=== PATIENT | male | born 1950 | race African-American/Black ===

== ENCOUNTER 2017-10-24 14:51 | Inpatient (IN) | payer OTHER, MEDICARE ==
[~2017-10-24] VITALS: Ht 170.2 cm; Wt 74.8 kg
[~2017-10-24 14:51] MED LIST: ACETAMINOPHEN325 M1 ORAL; ARICEPT5 MG ORAL; BACTRIM DS TAB1 EAC1 ORAL; CIPRO500 MG PO; CIPROFLOXACIN500 M2 ORAL; CIPROFLOXACIN750 MG ORAL; DILAUDID4 MG ORAL; FLOMAX0.4 MG ORAL; LEVAQUIN250 M1 ORAL; LEVOFLOXACIN500 MG ORAL; MACROBID100 MG ORAL; METHADONE HCL10 MG ORAL; METHADONE HCL10 MG PO; METHADONE HCL5 MG PO; MICONAZOLE NITR30 GM TOPIC; MIRALAX17 G2 ORAL; RESTORIL15 MG ORAL; VANCOMYCIN750 MG/150 IV
[2017-10-24 15:46] LABS: BASOPHILS % (AUTO) 0.7 % (0.0-2.0); EOSINOPHILS % (AUTO) 0.6 % (0.0-3.0); HEMATOCRIT 49.8 % (42.0-52.0); HEMOGLOBIN 14.2 G/DL (14.2-18.0); LYMPHOCYTES % (AUTO) 49.7 % (20.0-45.0); MEAN CORPUSCULAR VOLUME 95 FL (80-99); MONOCYTES % (AUTO) 6.4 % (1.0-10.0); NEUTROPHILS % (AUTO) 42.6 % (45.0-75.0); PLATELET COUNT 204 K/UL (150-450); RED BLOOD COUNT 5.26 M/UL (4.70-6.10); RED CELL DISTRIBUTION WIDTH 12.2 % (11.6-14.8); WHITE BLOOD COUNT 11.7 K/UL (4.8-10.8)
[2017-10-24 16:05] LABS: ANION GAP 8 mmol/L (5-15); BLOOD UREA NITROGEN 15 mg/dL (7-18); CALCIUM 8.8 MG/DL (8.5-10.1); CARBON DIOXIDE 29 MMOL/L (21-32); CHLORIDE 107 MMOL/L (98-107); CREATININE 1.8 MG/DL (0.55-1.30); POTASSIUM 4.4 MMOL/L (3.5-5.1); SODIUM 143 MMOL/L (136-145)
[2017-10-24 16:09] LABS: ALANINE AMINOTRANSFERASE 20 U/L (12-78); ALBUMIN 3.6 G/DL (3.4-5.0); ALBUMIN/GLOBULIN RATIO 0.7 (1.0-2.7); ALKALINE PHOSPHATASE 128 U/L (46-116); ASPARTATE AMINO TRANSFERASE 28 U/L (15-37); BILIRUBIN,TOTAL 0.7 MG/DL (0.2-1.0)
[2017-10-24 16:26] LABS: APPEARANCE,URINE SLIGHTLY CLOUDY; BILIRUBIN, URINE NEGATIVE (NEGATIVE); GLUCOSE, URINE (UA) NEGATIVE (NEGATIVE); KETONES,URINE NEGATIVE (NEGATIVE); LEUKOCYTE ESTERASE ,URINE 3+ (NEGATIVE); NITRITE,URINE NEGATIVE (NEGATIVE); PH,URINE 6 (4.5-8.0); PROTEIN,URINE 2+ (NEGATIVE); UROBILINOGEN,URINE NORMAL MG/DL (0.0-1.0)
[2017-10-24 16:29] LABS: COLOR,URINE YELLOW
[2017-10-24] MEDS ORDERED: cefTRIAXone 1 GM in NS 55 ML IVPB ONE (17:15)
[2017-10-24] MEDS ORDERED: Lidocaine 1% MPF 10mg/ml 5ml INJ ONE (18:45)
[2017-10-24] MEDS ORDERED: UNOBMED (19:07)
[2017-10-24 21:20] VITALS: BP 109/79
[2017-10-24 21:45] VITALS: BP 114/86
[2017-10-24] MEDS ORDERED: Morphine Sulfate 2mg/ml Inj IVP PRN (22:45)
[2017-10-24] MEDS ORDERED: Albuterol/Ipratropium 3ml neb HHN PRN (22:45)
[2017-10-24] MEDS ORDERED: Vancomycin 1.5 GM/D5W 250ML IVPB SCH (23:30)
--- NOTE | 2017-10-25 00:14 | Emergency Room Report ---
History of Present Illness General Chief Complaint: Abdominal Pain Source: Patient, Medical Record Present Illness HPI Patient presents emergency department complaining of abdominal discomfort. Patient also complained of weakness. Patient has a history of dementia. Patient denies any nausea vomiting diarrhea chills. Patient family member felt the patient often refuses stay patient back. Symptoms noted to be severe. Patient does have a history UTI. Patient is not a very good historian therefore history is limited.No other modifying factors. No other associated signs and symptoms. No other complaints were noted. Allergies: Uncoded Allergies: anesthesia (Allergy, Unknown, 07/04/14) Patient History Past Medical History: HTN, CAD, CVA/TIA, dementia, other - cancer Past Surgical History: none Social History: Denies: smoking, alcohol use, drug use Reviewed Nursing Documentation: PMH: Agreed, PSxH: Agreed Nursing Documentation-PMH Past Medical History: No History, Except For Hx Cardiac Problems: Yes Hx Hypertension: Yes Hx Cancer: Yes Hx Gastrointestinal Problems: No Hx Neurological Problems: Yes Hx Cerebrovascular Accident: Yes Hx Dementia: Yes Hx Alzheimer's Disease: Yes Review of Systems All Other Systems: negative except mentioned in HPI Physical Exam Vital Signs Date Time Temp Pulse Resp B/P (MAP) Pulse Ox O2 Delivery O2 Flow Rate FiO2 10/24/17 14:58 97.3 87 20 117/86 99 Room Air Sp02 EP Interpretation: reviewed, normal General Appearance: alert, mild distress, thin, Chronically Ill Head: atraumatic Eyes: bilateral eye normal inspection ENT: normal ENT inspection, hearing grossly normal, normal voice Neck: normal inspection, full range of motion, supple, no bony tend Respiratory: normal inspection, lungs clear, normal breath sounds, no respiratory distress, no retraction, no wheezing Cardiovascular #1: regular rate, rhythm, no edema Gastrointestinal: normal inspection, normal bowel sounds, non tender, soft, no guarding, no hernia Genitourinary: no CVA tenderness Musculoskeletal: normal inspection, back normal, normal range of motion Neurologic: normal inspection, alert, responsive, speech normal Psychiatric: normal inspection, judgement/insight normal, mood/affect normal Skin: normal inspection, normal color, no rash Medical Decision Making Diagnostic Impression: Primary Impression: Abdominal pain Additional Impression: UTI (urinary tract infection) ER Course Patient presents emergency department today complaining of abdominal discomfort. Differential considerations include dehydration, urinary tract infection, gastritis, gastroenteritis just to name a few. Given the severity of the patient's presentation I felt this is a highly complex patient. This patient required extensive workup. Patient's laboratory workup shows evidence of UTI. Patient was given IV antibiotics for this. Because of patient's symptoms and advanced age and elevated leukocytosis of patient require admission to the hospital. Case was discussed with Dr. Mooney for further management. Labs Test 10/24/17 15:38 10/24/17 16:00 White Blood Count 11.7 K/UL (4.8-10.8) Red Blood Count 5.26 M/UL (4.70-6.10) Hemoglobin 14.2 G/DL (14.2-18.0) Hematocrit 49.8 % (42.0-52.0) Mean Corpuscular Volume 95 FL (80-99) Mean Corpuscular Hemoglobin 27.0 PG (27.0-31.0) Mean Corpuscular Hemoglobin Concent 28.5 G/DL (32.0-36.0) Red Cell Distribution Width 12.2 % (11.6-14.8) Platelet Count 204 K/UL (150-450) Mean Platelet Volume 6.0 FL (6.5-10.1) Neutrophils (%) (Auto) 42.6 % (45.0-75.0) Lymphocytes (%) (Auto) 49.7 % (20.0-45.0) Monocytes (%) (Auto) 6.4 % (1.0-10.0) Eosinophils (%) (Auto) 0.6 % (0.0-3.0) Basophils (%) (Auto) 0.7 % (0.0-2.0) Sodium Level 143 MMOL/L (136-145) Potassium Level 4.4 MMOL/L (3.5-5.1) Chloride Level 107 MMOL/L (98-107) Carbon Dioxide Level 29 MMOL/L (21-32) Anion Gap 8 mmol/L (5-15) Blood Urea Nitrogen 15 mg/dL (7-18) Creatinine 1.8 MG/DL (0.55-1.30) Estimat Glomerular Filtration Rate 45.7 mL/min (>60) Glucose Level 89 MG/DL (74-106) Calcium Level 8.8 MG/DL (8.5-10.1) Total Bilirubin 0.7 MG/DL (0.2-1.0) Aspartate Amino Transf (AST/SGOT) 28 U/L (15-37) Alanine Aminotransferase (ALT/SGPT) 20 U/L (12-78) Alkaline Phosphatase 128 U/L (46-116) Total Protein 9.0 G/DL (6.4-8.2) Albumin 3.6 G/DL (3.4-5.0) Globulin 5.4 g/dL Albumin/Globulin Ratio 0.7 (1.0-2.7) Lipase 250 U/L (73-393) Urine Color Yellow Urine Appearance Slightly cloudy Urine pH 6 (4.5-8.0) Urine Specific [place] 1.015 (1.005-1.035) Urine Protein 2+ (NEGATIVE) Urine Glucose (UA) Negative (NEGATIVE) Urine Ketones Negative (NEGATIVE) Urine Occult Blood 1+ (NEGATIVE) Urine Nitrite Negative (NEGATIVE) Urine Bilirubin Negative (NEGATIVE) Urine Urobilinogen Normal MG/DL (0.0-1.0) Urine Leukocyte Esterase 3+ (NEGATIVE) Urine RBC 10-15 /HPF (0 - 0) Urine WBC 20-30 /HPF (0 - 0) Urine Squamous Epithelial Cells Few /LPF (NONE/OCC) Urine Amorphous Sediment Moderate /LPF (NONE) Urine Bacteria Many /HPF (NONE) Last Vital Signs Date Time Temp Pulse Resp B/P (MAP) Pulse Ox O2 Delivery O2 Flow Rate FiO2 10/24/17 21:45 98.2 82 18 114/86 98 Room Air Status: improved Disposition: ADMITTED INPATIENT Condition: HARPAL Nam M.D. Oct 25, 2017 00:14
[2017-10-25] MEDS ORDERED: Vancomycin 1 GM in D5W 275 ML IV SCH (00:30)
[2017-10-25 04:00] VITALS: BP 125/72
[2017-10-25 07:46] LABS: BASOPHILS % (AUTO) 0.9 % (0.0-2.0); EOSINOPHILS % (AUTO) 1.3 % (0.0-3.0); HEMATOCRIT 41.9 % (42.0-52.0); HEMOGLOBIN 13.5 G/DL (14.2-18.0); LYMPHOCYTES % (AUTO) 45.2 % (20.0-45.0); MEAN CORPUSCULAR VOLUME 95 FL (80-99); NEUTROPHILS % (AUTO) 43.5 % (45.0-75.0); PLATELET COUNT 275 K/UL (150-450); RED BLOOD COUNT 4.43 M/UL (4.70-6.10); RED CELL DISTRIBUTION WIDTH 12.4 % (11.6-14.8); WHITE BLOOD COUNT 9.7 K/UL (4.8-10.8)
[2017-10-25 07:50] VITALS: BP 124/90
[2017-10-25 08:01] LABS: ALANINE AMINOTRANSFERASE 16 U/L (12-78); ALBUMIN/GLOBULIN RATIO 0.7 (1.0-2.7); ALKALINE PHOSPHATASE 102 U/L (46-116); ANION GAP 9 mmol/L (5-15); ASPARTATE AMINO TRANSFERASE 24 U/L (15-37); BILIRUBIN,TOTAL 0.5 MG/DL (0.2-1.0); BLOOD UREA NITROGEN 17 mg/dL (7-18); CALCIUM 8.1 MG/DL (8.5-10.1); CARBON DIOXIDE 26 MMOL/L (21-32); CHLORIDE 107 MMOL/L (98-107); CREATININE 1.7 MG/DL (0.55-1.30); SODIUM 142 MMOL/L (136-145)
[2017-10-25] MEDS: Heparin 5000 units/ml inj SUBQ SCH ×2 (08:32→21:00)
[2017-10-25] MEDS ORDERED: Cefepime HCl 2 GM in D5W 110 ML IV SCH (09:00)
--- NOTE | 2017-10-25 09:27 | History and Physical ---
History of Present Illness General Date patient seen: Oct 25, 2017 Time patient seen: 08:30 Reason for Hospitalization: Abdominal Pain Present Illness HPI 67 y/ol d male with PMH of HTN, CVA, CKD, Alzheimer dementia, prostate Ca, s/ p OM L foot, recurrent UTI, Methadone dependency presented with abdominal pain and generalized weakness patient was unable to provide much of information due to underlying dementia family denied f/c/diarrhea, n/v/ workup revealed stable VS leukocytosis stable LFT and lipase UA grossly positive for UTI renal parameters c/w known hx of CKD patient was admitted for further management Allergies: Uncoded Allergies: anesthesia (Allergy, Unknown, 07/04/14) Medication History Scheduled Donepezil Hcl* (Aricept*), 5 MG ORAL QHS Hydromorphone HCl (Dilaudid), 8 MG ORAL FOUR TIMES A DAY, (Reported) Hydromorphone HCl (Dilaudid), 4 MG ORAL Q4H, (Reported) Methadone Hcl* (Methadone*), Unknown Dose PO DAILY, (Reported) Methadone Hcl* (Methadone*), 115 MG ORAL DAILY Miscellaneous Medications Unable to Obtain Medications (Unable To Obtain Meds), (Reported) Patient History History Provided By: Medical Record Healthcare decision maker Yamini Roth, Resuscitation status Full Code Advanced Directive on File Past Medical/Surgical History Past Medical/Surgical History: (1) CKD (chronic kidney disease) (2) PVD (peripheral vascular disease) (3) Dementia, vascular (4) Prostatitis (5) UTI (lower urinary tract infection) (6) Osteomyelitis (7) Drug abuse (8) Prostate cancer Review of Systems ROS Narrative patient is unable to provide info due to underlying Alzheimer dementia Physical Exam General Appearance: no apparent distress, alert, confused Lines, tubes and drains: peripheral HEENT: normocephalic, atraumatic, anicteric, mucous membranes moist Neck: non-tender, supple Respiratory/Chest: chest wall non-tender, lungs clear, no respiratory distress , no accessory muscle use Cardiovascular/Chest: normal peripheral pulses, normal rate, no JVD Abdomen: non tender, soft Extremities: no calf tenderness Neurologic: alert - confused, responsive Musculoskeletal: normal muscle bulk Last 24 Hour Vital Signs Date Time Temp Pulse Resp B/P (MAP) Pulse Ox O2 Delivery O2 Flow Rate FiO2 10/25/17 07:50 97.7 99 20 124/90 99 Room Air 10/25/17 04:00 97.7 104 18 125/72 98 Room Air 10/24/17 21:45 98.2 82 18 114/86 98 Room Air 10/24/17 21:40 97.8 89 20 109/79 99 Room Air 10/24/17 21:20 97.8 89 20 109/79 99 Room Air 10/24/17 14:58 97.3 87 20 117/86 99 Room Air Intake and Output 10/24/17 10/25/17 19:00 07:00 Intake Total 490 ml Balance 490 ml Intake Oral 240 ml IV Total 250 ml # Voids 2 Laboratory Tests Test 10/24/17 15:38 10/24/17 16:00 10/25/17 04:40 White Blood Count 11.7 K/UL (4.8-10.8) H 9.7 K/UL (4.8-10.8) Red Blood Count 5.26 M/UL (4.70-6.10) 4.43 M/UL (4.70-6.10) L Hemoglobin 14.2 G/DL (14.2-18.0) 13.5 G/DL (14.2-18.0) L Hematocrit 49.8 % (42.0-52.0) 41.9 % (42.0-52.0) L Mean Corpuscular Volume 95 FL (80-99) 95 FL (80-99) Mean Corpuscular Hemoglobin 27.0 PG (27.0-31.0) 30.6 PG (27.0-31.0) Mean Corpuscular Hemoglobin Concent 28.5 G/DL (32.0-36.0) L 32.3 G/DL (32.0-36.0) Red Cell Distribution Width 12.2 % (11.6-14.8) 12.4 % (11.6-14.8) Platelet Count 204 K/UL (150-450) 275 K/UL (150-450) Mean Platelet Volume 6.0 FL (6.5-10.1) L 7.2 FL (6.5-10.1) Neutrophils (%) (Auto) 42.6 % (45.0-75.0) L 43.5 % (45.0-75.0) L Lymphocytes (%) (Auto) 49.7 % (20.0-45.0) H 45.2 % (20.0-45.0) H Monocytes (%) (Auto) 6.4 % (1.0-10.0) 9.0 % (1.0-10.0) Eosinophils (%) (Auto) 0.6 % (0.0-3.0) 1.3 % (0.0-3.0) Basophils (%) (Auto) 0.7 % (0.0-2.0) 0.9 % (0.0-2.0) Sodium Level 143 MMOL/L (136-145) 142 MMOL/L (136-145) Potassium Level 4.4 MMOL/L (3.5-5.1) 4.0 MMOL/L (3.5-5.1) Chloride Level 107 MMOL/L (98-107) 107 MMOL/L (98-107) Carbon Dioxide Level 29 MMOL/L (21-32) 26 MMOL/L (21-32) Anion Gap 8 mmol/L (5-15) 9 mmol/L (5-15) Blood Urea Nitrogen 15 mg/dL (7-18) 17 mg/dL (7-18) Creatinine 1.8 MG/DL (0.55-1.30) H 1.7 MG/DL (0.55-1.30) H Estimat Glomerular Filtration Rate 45.7 mL/min (>60) 48.8 mL/min (>60) Glucose Level 89 MG/DL (74-106) 77 MG/DL (74-106) Calcium Level 8.8 MG/DL (8.5-10.1) 8.1 MG/DL (8.5-10.1) L Total Bilirubin 0.7 MG/DL (0.2-1.0) 0.5 MG/DL (0.2-1.0) Aspartate Amino Transf (AST/SGOT) 28 U/L (15-37) 24 U/L (15-37) Alanine Aminotransferase (ALT/SGPT) 20 U/L (12-78) 16 U/L (12-78) Alkaline Phosphatase 128 U/L (46-116) H 102 U/L (46-116) Total Protein 9.0 G/DL (6.4-8.2) H 7.5 G/DL (6.4-8.2) Albumin 3.6 G/DL (3.4-5.0) 3.0 G/DL (3.4-5.0) L Globulin 5.4 g/dL 4.5 g/dL Albumin/Globulin Ratio 0.7 (1.0-2.7) L 0.7 (1.0-2.7) L Lipase 250 U/L (73-393) Urine Color Yellow Urine Appearance Slightly cloudy Urine pH 6 (4.5-8.0) Urine Specific [place] 1.015 (1.005-1.035) Urine Protein 2+ (NEGATIVE) H Urine Glucose (UA) Negative (NEGATIVE) Urine Ketones Negative (NEGATIVE) Urine Occult Blood 1+ (NEGATIVE) H Urine Nitrite Negative (NEGATIVE) Urine Bilirubin Negative (NEGATIVE) Urine Urobilinogen Normal MG/DL (0.0-1.0) Urine Leukocyte Esterase 3+ (NEGATIVE) H Urine RBC 10-15 /HPF (0 - 0) H Urine WBC 20-30 /HPF (0 - 0) H Urine Squamous Epithelial Cells Few /LPF (NONE/OCC) Urine Amorphous Sediment Moderate /LPF (NONE) H Urine Bacteria Many /HPF (NONE) H Height (Feet): 5 Height (Inches): 7.00 Weight (Pounds): 165 Medications Current Medications Medications (Trade) Dose Ordered Sig/Lucie Route PRN Reason Start Time Stop Time Status Last Admin Dose Admin Acetaminophen (Tylenol) 650 mg Q4H PRN ORAL fever 10/24/17 22:45 11/23/17 22:44 Albuterol/ Ipratropium (Albuterol/ Ipratropium) 3 ml EVERY 4 HOURS PRN HHN Shortness of Breath 10/24/17 22:45 10/29/17 22:44 Cefepime HCl 2 gm/ Dextrose 110 ml @ 220 mls/hr EVERY 12 HOURS IV 10/25/17 09:00 11/01/17 08:59 10/25/17 08:31 Donepezil HCl (Aricept) 5 mg QHS ORAL 10/25/17 21:00 11/24/17 20:59 Heparin Sodium (Porcine) (Heparin 5000 units/ml) 5,000 units EVERY 12 HOURS SUBQ 10/25/17 09:00 11/24/17 08:59 10/25/17 08:32 Methadone HCl (Methadone HCl) 115 mg DAILY ORAL 10/25/17 09:00 11/01/17 08:59 UNV Morphine Sulfate (Morphine Sulfate) 2 mg EVERY 4 HOURS PRN IVP Moderate Pain (Pain Scale 4-6) 10/24/17 22:45 10/31/17 22:44 Ondansetron HCl (Zofran) 4 mg Q6H PRN IVP Nausea & Vomiting 10/24/17 22:45 11/23/17 22:44 Phenazopyridine HCl (Pyridium) 100 mg DAILY PRN ORAL dysuria 10/24/17 22:45 11/23/17 22:44 Polyethylene Glycol (Miralax) 17 gm DAILYPRN PRN ORAL Constipation 10/24/17 22:45 11/23/17 22:44 Temazepam (Restoril) 15 mg HSPRN PRN ORAL Insomnia 10/24/17 22:45 10/31/17 22:44 Vancomycin HCl/ Dextrose 250 ml @ 125 mls/hr Q24H IVPB 10/24/17 23:30 10/29/17 23:29 10/25/17 00:07 Assessment/Plan Assessment/Plan ASSESSMENT abdominal pain gastroenteritis-resolved pyuria, possible UTI with hx of recurrent UTI prostate Ca encephalopathy HTN Hx of CVA chronic methadone dependency hep C CKD hx of IVDa PLAN OF CARE [facility] floor ID consult appreciated UA+ pyuria, but no urinary complaints, off abx , observe off antibiotics per ID recommendations repeat UA likely had gastroenteritis which is resolving tolerated diet no n/v/diarrhea DVT prophylaxis pain management bowel regimen monitor BP currently normotensive check lipid panel, add ASA PT/OT dc plan outpt hep C treatment case discussed and evaluated by supervising physician Winston Vegarita)Baylee NP Oct 25, 2017 09:27
[2017-10-25 11:55] VITALS: BP 106/86
[2017-10-25 12:24] LABS: APPEARANCE,URINE SLIGHTLY CLOUDY; BILIRUBIN, URINE NEGATIVE (NEGATIVE); COLOR,URINE AMBER; GLUCOSE, URINE (UA) NEGATIVE (NEGATIVE); KETONES,URINE NEGATIVE (NEGATIVE); LEUKOCYTE ESTERASE ,URINE 3+ (NEGATIVE); NITRITE,URINE NEGATIVE (NEGATIVE); PH,URINE 6.5 (4.5-8.0); PROTEIN,URINE 2+ (NEGATIVE); UROBILINOGEN,URINE NORMAL MG/DL (0.0-1.0)
[2017-10-25 16:07] VITALS: BP 118/85
--- NOTE | 2017-10-25 16:11 | Consultation ---
Consult Note Assessment/Plan [id number] Gastroenteritis improved Pyuria no U symptoms no evid of UTI osteomyelitis of the second middle and distal phalanges ( Lt ) Hep C Ab + Prostate cancer history of chronic renal stone, and CKD Dementia SP IVDA PLAN: DC IV vancomycin, and Cefepime Monitor BMP. Urine and Blood culture. Monitor CBC. hep C PCR EDMOND ADEN M.D. Oct 25, 2017 16:11
[2017-10-25 20:51] VITALS: BP 123/85
[2017-10-25] MEDS ORDERED: Donepezil 5mg Tab ORAL SCH (21:00)
[2017-10-25] MEDS ORDERED: Tubing IV Secondary IV ONE (22:36)
[2017-10-26 00:31] VITALS: BP 118/77
--- NOTE | 2017-10-26 01:00 | Consultation ---
DATE OF CONSULTATION: 10/25/2017 INFECTIOUS DISEASE CONSULTATION CONSULTING PHYSICIAN: Jose Bello MD. REFERRING PHYSICIAN: German Mooney MD. REASON FOR CONSULTATION: Evaluation of the patient for gastroenteritis, possible need for antibiotics, and history of possible urinary tract infection. HISTORY OF PRESENT ILLNESS: The patient is a 67-year-old male with multiple medical problems as listed below, who was admitted to this medical center with nausea, vomiting and diarrhea that has been resolved. The patient's baseline is confused and not able to provide reliable information. Infectious Disease consultation has been requested for evaluation of the patient for possible need for antibiotic treatment. PAST MEDICAL HISTORY: 1. History of recurrent urinary tract infection. 2. History of osteomyelitis of the second left toe and distal phalanx. 3. History of prostate cancer. 4. History of renal stone and CKD. 5. History of abnormal liver function tests and hepatitis C positive. 6. History of IV drug abuse. ALLERGIES: No known allergies to antibiotics. FAMILY HISTORY: Not available. REVIEW OF SYSTEMS: Unobtainable. MEDICATIONS: Cefepime and vancomycin. PHYSICAL EXAMINATION: VITAL SIGNS: Temperature 97.3, blood pressure /86, pulse 86, and respiratory rate 18. HEENT: No pale conjunctivae. No icterus. NECK: No lymphadenopathy. CHEST: Clear. HEART: S1 and S2. ABDOMEN: Soft and nontender. EXTREMITIES: No cyanosis or cellulitis noted. NEUROLOGICAL: Awake. LABORATORY DATA: White blood cell count was 11.7, today is normal; hemoglobin 13; platelets 275,000. UA shows too numerous to count white blood cells. BUN 17 and creatinine 1.7. ALT, AST, alkaline phosphatase are unremarkable. Blood culture and urine culture are pending. ASSESSMENT: The patient is a 67-year-old male with: 1. Status post leukocytosis due to acute stress. 2. Gastroenteritis, resolved. 3. Pyuria, however, the patient has no symptoms, doubt urine culture without any significance. PLAN: 1. We will monitor patient off of antibiotics. 2. Monitor CBC. 3. Monitor BMP. 4. Monitor cultures. 5. Based on the patient's clinical course and laboratories, we will do further recommendation. Thank you, Dr. Mooney, for allowing me to participate in the care of this patient. I will follow the patient with you during this hospitalization. Jose Bello M.D. DR: Nabil JOB#: [id number] CC:
[2017-10-26 04:53] VITALS: BP 107/71
[2017-10-26 07:26] LABS: BASOPHILS % (AUTO) 0.7 % (0.0-2.0); EOSINOPHILS % (AUTO) 1.4 % (0.0-3.0); HEMATOCRIT 39.2 % (42.0-52.0); HEMOGLOBIN 12.6 G/DL (14.2-18.0); LYMPHOCYTES % (AUTO) 44.1 % (20.0-45.0); MEAN CORPUSCULAR VOLUME 95 FL (80-99); MONOCYTES % (AUTO) 8.8 % (1.0-10.0); NEUTROPHILS % (AUTO) 44.9 % (45.0-75.0); PLATELET COUNT 258 K/UL (150-450); RED BLOOD COUNT 4.13 M/UL (4.70-6.10); RED CELL DISTRIBUTION WIDTH 12.2 % (11.6-14.8); WHITE BLOOD COUNT 7.2 K/UL (4.8-10.8)
[2017-10-26 07:39] LABS: ANION GAP 8 mmol/L (5-15); BLOOD UREA NITROGEN 19 mg/dL (7-18); CALCIUM 8.3 MG/DL (8.5-10.1); CARBON DIOXIDE 26 MMOL/L (21-32); CHLORIDE 108 MMOL/L (98-107); CHOLESTEROL 170 MG/DL (< 200); HDL CHOLESTEROL 71 MG/DL (40-60); POTASSIUM 4.3 MMOL/L (3.5-5.1); SODIUM 142 MMOL/L (136-145); TRIGLYCERIDES 36 MG/DL (30-150)
[2017-10-26 08:00] VITALS: BP_SYST 126; BP_SYST 157; BP_DIAS 73; BP_DIAS 93
[2017-10-26] MEDS: Aspirin Baby 81mg ORAL SCH (08:20)
[2017-10-26] MEDS: Heparin 5000 units/ml inj SUBQ SCH ×2 (08:23→22:07)
[2017-10-26 12:00] VITALS: BP 123/64
--- NOTE | 2017-10-26 15:26 | Pulmonology Progress Note ---
Assessment/Plan Assessment/Plan ASSESSMENT abdominal pain gastroenteritis-resolved pyuria, possible UTI with hx of recurrent UTI prostate Ca acute on chronic encephalopathy HTN Hx of CVA chronic methadone dependency hep C CKD hx of IVDa PLAN OF CARE [facility] floor ID follows UA+ pyuria, but no urinary complaints, off abx , observe off antibiotics per ID recommendations likely had gastroenteritis which is resolving tolerated diet no n/v/diarrhea DVT prophylaxis pain management, chronic Methadone dependency , cut down on dose and changed to 10 mg tid bowel regimen monitor BP currently normotensive check lipid panel, add ASA PT/OT psych eval , optimized psych meds dc plan outpt hep C treatment case discussed and evaluated by supervising physician Subjective Allergies: Uncoded Allergies: anesthesia (Allergy, Unknown, 07/04/14) Subjective patient agitated, argues with his , verbalizing certain things hat dont make any common sense denies chest pain, SOB, urinary complaints no abd pain, no n/v/ Objective Last 24 Hour Vital Signs Date Time Temp Pulse Resp B/P (MAP) Pulse Ox O2 Delivery O2 Flow Rate FiO2 10/26/17 12:00 97.0 78 18 123/64 97 Room Air 10/26/17 08:00 97.9 80 20 126/73 95 Room Air 10/26/17 06:40 74 20 Room Air 21 10/26/17 04:53 98.4 77 18 107/71 97 10/26/17 00:31 97.7 80 18 118/77 95 10/25/17 20:51 98.1 89 18 123/85 96 10/25/17 19:32 78 16 Room Air 21 10/25/17 16:07 97.5 92 20 118/85 98 Room Air Intake and Output 10/25/17 10/26/17 19:00 07:00 Intake Total 520 ml 240 ml Output Total 400 ml Balance 520 ml -160 ml Intake Oral 520 ml 240 ml Output Urine Total 400 ml # Voids 2 4 # Bowel Movements 1 Objective General Appearance: no apparent distress, alert, confused Lines, tubes and drains: peripheral HEENT: normocephalic, atraumatic, anicteric, mucous membranes moist Neck: non-tender, supple Respiratory/Chest: chest wall non-tender, lungs clear, no respiratory distress , no accessory muscle use Cardiovascular/Chest: normal peripheral pulses, normal rate, no JVD Abdomen: non tender, soft Extremities: no calf tenderness Neurologic: alert - confused, responsive Musculoskeletal: normal muscle bulk Microbiology Date/Time Source Procedure Growth Status 10/24/17 16:00 Urine,Clean Catch Urine Culture - Preliminary Strep Species, Gamma-Hemolytic Resulted Laboratory Tests 10/26/17 04:05: White Blood Count 7.2, Red Blood Count 4.13L, Hemoglobin 12.6L, Hematocrit 39.2L , Mean Corpuscular Volume 95, Mean Corpuscular Hemoglobin 30.6, Mean Corpuscular Hemoglobin Concent 32.2, Red Cell Distribution Width 12.2, Platelet Count 258, Mean Platelet Volume 6.2L, Neutrophils (%) (Auto) 44.9L, Lymphocytes (%) (Auto) 44.1, Monocytes (%) (Auto) 8.8, Eosinophils (%) (Auto) 1.4, Basophils (%) (Auto) 0.7, Sodium Level 142, Potassium Level 4.3, Chloride Level 108H, Carbon Dioxide Level 26, Anion Gap 8, Blood Urea Nitrogen 19H, Creatinine 2.0H, Estimat Glomerular Filtration Rate 40.5, Glucose Level 79, Calcium Level 8.3L, Triglycerides Level 36, Cholesterol Level 170, LDL Cholesterol 97, HDL Cholesterol 71H, Cholesterol/HDL Ratio 2.4L Current Medications Medications (Trade) Dose Ordered Sig/Lucie Route PRN Reason Start Time Stop Time Status Last Admin Dose Admin Acetaminophen (Tylenol) 650 mg Q4H PRN ORAL fever 10/24/17 22:45 11/23/17 22:44 Albuterol/ Ipratropium (Albuterol/ Ipratropium) 3 ml EVERY 4 HOURS PRN HHN Shortness of Breath 10/24/17 22:45 10/29/17 22:44 Aspirin (ASA) 81 mg DAILY ORAL 10/26/17 09:00 11/25/17 08:59 10/26/17 08:20 Heparin Sodium (Porcine) (Heparin 5000 units/ml) 5,000 units EVERY 12 HOURS SUBQ 10/25/17 09:00 11/24/17 08:59 10/26/17 08:23 Methadone HCl (Methadone HCl) 10 mg Q6HR ORAL 10/26/17 10:30 11/02/17 10:29 10/26/17 09:53 Mirtazapine (Remeron) 7.5 mg BEDTIME PRN ORAL For Anxiety 10/26/17 14:00 11/25/17 13:59 Morphine Sulfate (Morphine Sulfate) 2 mg EVERY 4 HOURS PRN IVP Moderate Pain (Pain Scale 4-6) 10/24/17 22:45 10/31/17 22:44 Ondansetron HCl (Zofran) 4 mg Q6H PRN IVP Nausea & Vomiting 10/24/17 22:45 11/23/17 22:44 Phenazopyridine HCl (Pyridium) 100 mg DAILY PRN ORAL dysuria 10/24/17 22:45 11/23/17 22:44 Polyethylene Glycol (Miralax) 17 gm DAILYPRN PRN ORAL Constipation 10/24/17 22:45 11/23/17 22:44 [facility] WardMon[facility]fi[facility]ack HospitalBaylee Yadav NP Oct 26, 2017 15:26
[2017-10-26 16:00] VITALS: BP 114/70
[2017-10-26 20:00] VITALS: BP 119/77
[2017-10-27 04:00] VITALS: BP 123/74
[2017-10-27 08:00] VITALS: BP 122/77
[2017-10-27] MEDS: Aspirin Baby 81mg ORAL SCH (08:51)
[2017-10-27] MEDS: Heparin 5000 units/ml inj SUBQ SCH ×2 (08:54→20:46)
--- NOTE | 2017-10-27 11:01 | Infectious Diseases Prog Note ---
Assessment/Plan Assessment/Plan . PAST MEDICAL HISTORY: ASSESSMENT: The patient is a 67-year-old male with: 1. Status post leukocytosis due to acute stress. 2. Gastroenteritis, resolved. 3. Pyuria, however, the patient has no symptoms, doubt UTI (assymptomatic bacteriuria) -u/a WBC TNTC- ucx >100k E. fecalis (S Vanco, amp), 30-40k mixed gram positive growth -. History of recurrent urinary tract infection. -. History of osteomyelitis of the second left toe and distal phalanx. -History of prostate cancer. -. History of renal stone and CKD. -. History of abnormal liver function tests and hepatitis C positive. - History of IV drug abuse. PLAN: 1. We will monitor patient off of antibiotics. 2. Monitor CBC. 3. Monitor BMP. 4. Monitor cultures. 5. Based on the patient's clinical course and laboratories, we will do further recommendation. Thank you, Dr. Mooney, for allowing me to participate in the care of this patient. I will follow the patient with you during this hospitalization. Subjective Allergies: Uncoded Allergies: anesthesia (Allergy, Unknown, 07/04/14) Subjective afebrile leukocytosis resolved Objective Vital Signs Last 24 Hour Vital Signs Date Time Temp Pulse Resp B/P (MAP) Pulse Ox O2 Delivery O2 Flow Rate FiO2 10/27/17 08:00 97.3 75 18 122/77 96 10/27/17 04:00 97.4 74 16 123/74 95 Room Air 10/26/17 20:00 97.8 89 18 119/77 95 Room Air 10/26/17 19:24 68 16 Room Air 21 10/26/17 16:00 95 Room Air 10/26/17 16:00 97.9 84 19 114/70 95 Room Air 10/26/17 15:48 97.0 10/26/17 12:00 97.0 78 18 123/64 97 Room Air 10/26/17 12:00 97 Room Air Height (Feet): 5 Height (Inches): 7.00 Weight (Pounds): 165 Objective HEENT: No pale conjunctivae. No icterus. NECK: No lymphadenopathy. CHEST: Clear. HEART: S1 and S2. ABDOMEN: Soft and nontender. EXTREMITIES: No cyanosis or cellulitis noted. NEUROLOGICAL: Awake. Microbiology Date/Time Source Procedure Growth Status 1/6/18 12:05 Indwelling Cath Urine Culture - Preliminary Streptococcus Species Resulted 10/24/17 16:00 Urine,Clean Catch Urine Culture - Final Enterococcus Faecalis Mixed Gram Positive Organism Complete Current Medications Medications (Trade) Dose Ordered Sig/Lucie Route PRN Reason Start Time Stop Time Status Last Admin Dose Admin Acetaminophen (Tylenol) 650 mg Q4H PRN ORAL fever 10/24/17 22:45 11/23/17 22:44 Albuterol/ Ipratropium (Albuterol/ Ipratropium) 3 ml EVERY 4 HOURS PRN HHN Shortness of Breath 10/24/17 22:45 10/29/17 22:44 Aspirin (ASA) 81 mg DAILY ORAL 10/26/17 09:00 11/25/17 08:59 10/27/17 08:51 Heparin Sodium (Porcine) (Heparin 5000 units/ml) 5,000 units EVERY 12 HOURS SUBQ 10/25/17 09:00 11/24/17 08:59 10/27/17 08:54 Methadone HCl (Methadone HCl) 10 mg Q6HR ORAL 10/26/17 10:30 11/02/17 10:29 10/27/17 06:15 Mirtazapine (Remeron) 7.5 mg BEDTIME PRN ORAL For Anxiety 10/26/17 14:00 11/25/17 13:59 Morphine Sulfate (Morphine Sulfate) 2 mg EVERY 4 HOURS PRN IVP Moderate Pain (Pain Scale 4-6) 10/24/17 22:45 10/31/17 22:44 10/26/17 15:18 Ondansetron HCl (Zofran) 4 mg Q6H PRN IVP Nausea & Vomiting 10/24/17 22:45 11/23/17 22:44 Phenazopyridine HCl (Pyridium) 100 mg DAILY PRN ORAL dysuria 10/24/17 22:45 11/23/17 22:44 Polyethylene Glycol (Miralax) 17 gm DAILYPRN PRN ORAL Constipation 10/24/17 22:45 11/23/17 22:44 Janet Rowland M.D. Oct 27, 2017 11:01
[2017-10-27 12:00] VITALS: BP 123/92
[2017-10-27 16:00] VITALS: BP 167/95
--- NOTE | 2017-10-27 16:31 | Pulmonology Progress Note ---
Assessment/Plan Problems: (1) Abdominal pain (2) Inguinal hernia (3) Paranoia (4) CKD (chronic kidney disease) Assessment/Plan improving all noted ID consult appreciated dc home with symptomatic treatment Subjective ROS Limited/Unobtainable: No Interval Events: no new cmplains Constitutional: Reports: no symptoms HEENT: Repors: no symptoms Respiratory: Reports: no symptoms Allergies: Uncoded Allergies: anesthesia (Allergy, Unknown, 07/04/14) Objective Last 24 Hour Vital Signs Date Time Temp Pulse Resp B/P (MAP) Pulse Ox O2 Delivery O2 Flow Rate FiO2 10/27/17 12:00 97.0 68 17 123/92 97 10/27/17 12:00 97 Room Air 10/27/17 08:00 96 Room Air 10/27/17 08:00 97.3 75 18 122/77 96 10/27/17 06:40 68 18 Room Air 21 10/27/17 04:00 97.4 74 16 123/74 95 Room Air 10/26/17 20:00 97.8 89 18 119/77 95 Room Air 10/26/17 19:24 68 16 Room Air 21 Intake and Output 10/26/17 10/27/17 19:00 07:00 Intake Total 720 ml 240 ml Balance 720 ml 240 ml Intake Oral 720 ml 240 ml # Voids 4 2 # Bowel Movements 1 General Appearance: WD/WN HEENT: normocephalic, atraumatic Respiratory/Chest: chest wall non-tender, lungs clear Cardiovascular: normal peripheral pulses, normal rate Abdomen: normal bowel sounds, no organomegaly, no scars Genitourinary: normal external genitalia Neurologic/Psychiatric: vegetable tier II-XII grossly normal Microbiology Date/Time Source Procedure Growth Status 10/25/17 12:05 Indwelling Cath Urine Culture - Preliminary Streptococcus Species Resulted Current Medications Medications (Trade) Dose Ordered Sig/Lucie Route PRN Reason Start Time Stop Time Status Last Admin Dose Admin Acetaminophen (Tylenol) 650 mg Q4H PRN ORAL fever 10/24/17 22:45 11/23/17 22:44 Albuterol/ Ipratropium (Albuterol/ Ipratropium) 3 ml EVERY 4 HOURS PRN HHN Shortness of Breath 10/24/17 22:45 10/29/17 22:44 Aspirin (ASA) 81 mg DAILY ORAL 10/26/17 09:00 11/25/17 08:59 10/27/17 08:51 Heparin Sodium (Porcine) (Heparin 5000 units/ml) 5,000 units EVERY 12 HOURS SUBQ 10/25/17 09:00 11/24/17 08:59 10/27/17 08:54 Methadone HCl (Methadone HCl) 10 mg Q6HR ORAL 10/26/17 10:30 11/02/17 10:29 10/27/17 11:43 Mirtazapine (Remeron) 7.5 mg BEDTIME PRN ORAL For Anxiety 10/26/17 14:00 11/25/17 13:59 Morphine Sulfate (Morphine Sulfate) 2 mg EVERY 4 HOURS PRN IVP Moderate Pain (Pain Scale 4-6) 10/24/17 22:45 10/31/17 22:44 10/26/17 15:18 Ondansetron HCl (Zofran) 4 mg Q6H PRN IVP Nausea & Vomiting 10/24/17 22:45 11/23/17 22:44 Phenazopyridine HCl (Pyridium) 100 mg DAILY PRN ORAL dysuria 10/24/17 22:45 11/23/17 22:44 Polyethylene Glycol (Miralax) 17 gm DAILYPRN PRN ORAL Constipation 10/24/17 22:45 11/23/17 22:44 TIARA MIRANDA Oct 27, 2017 16:31
[2017-10-27 20:00] VITALS: BP 140/87
[2017-10-28] VITALS: BP 159/91
[2017-10-28 04:00] VITALS: BP 127/85
[2017-10-28 08:00] VITALS: BP 151/96
[2017-10-28] MEDS: Aspirin Baby 81mg ORAL SCH (08:19)
[2017-10-28] MEDS: Heparin 5000 units/ml inj SUBQ SCH ×2 (08:20→20:05)
--- NOTE | 2017-10-28 11:57 | Infectious Diseases Prog Note ---
Assessment/Plan Assessment/Plan ASSESSMENT: The patient is a 67-year-old male with: 1. Status post leukocytosis due to acute stress. 2. Gastroenteritis, resolved. 3. Pyuria, however, the patient has no symptoms, doubt UTI (assymptomatic bacteriuria) -u/a WBC TNTC- ucx >100k E. fecalis (S Vanco, amp), 30-40k mixed gram positive growth -. History of recurrent urinary tract infection. -. History of osteomyelitis of the second left toe and distal phalanx. -History of prostate cancer. -. History of renal stone and CKD. -. History of abnormal liver function tests and hepatitis C positive. - History of IV drug abuse. PLAN: 1. We will monitor patient off of antibiotics. 2. Monitor CBC. 3. Monitor BMP. 4. Monitor cultures. 5. Based on the patient's clinical course and laboratories, we will do further recommendation. Thank you, Dr. Mooney, for allowing me to participate in the care of this patient. I will follow the patient with you during this hospitalization. Subjective Allergies: Uncoded Allergies: anesthesia (Allergy, Unknown, 07/04/14) Subjective afebrile no leukocytosis no UTI symptoms Cr worsening n/v resolved Objective Vital Signs Last 24 Hour Vital Signs Date Time Temp Pulse Resp B/P (MAP) Pulse Ox O2 Delivery O2 Flow Rate FiO2 10/28/17 08:00 97.0 91 20 151/96 97 10/28/17 04:00 97.2 81 20 127/85 97 10/28/17 00:00 98.0 101 18 159/91 96 10/27/17 20:00 97.6 97 20 140/87 97 10/27/17 19:00 71 18 Room Air 21 10/27/17 16:00 97 Room Air 10/27/17 16:00 97.0 79 18 167/95 97 10/27/17 12:00 97.0 68 17 123/92 97 10/27/17 12:00 97 Room Air Height (Feet): 5 Height (Inches): 7.00 Weight (Pounds): 165 Objective HEENT: No pale conjunctivae. No icterus. NECK: No lymphadenopathy. CHEST: Clear. HEART: S1 and S2. ABDOMEN: Soft and nontender. EXTREMITIES: No cyanosis or cellulitis noted. NEUROLOGICAL: Awake. Microbiology Date/Time Source Procedure Growth Status 10/25/17 12:05 Indwelling Cath Urine Culture - Final Enterococcus Faecalis Complete Current Medications Medications (Trade) Dose Ordered Sig/Lucie Route PRN Reason Start Time Stop Time Status Last Admin Dose Admin Acetaminophen (Tylenol) 650 mg Q4H PRN ORAL fever 10/24/17 22:45 11/23/17 22:44 Albuterol/ Ipratropium (Albuterol/ Ipratropium) 3 ml EVERY 4 HOURS PRN HHN Shortness of Breath 10/24/17 22:45 10/29/17 22:44 Aspirin (ASA) 81 mg DAILY ORAL 10/26/17 09:00 11/25/17 08:59 10/28/17 08:19 Heparin Sodium (Porcine) (Heparin 5000 units/ml) 5,000 units EVERY 12 HOURS SUBQ 10/25/17 09:00 11/24/17 08:59 10/28/17 08:20 Methadone HCl (Methadone HCl) 10 mg Q6HR ORAL 10/26/17 10:30 11/02/17 10:29 10/28/17 05:24 Mirtazapine (Remeron) 7.5 mg BEDTIME PRN ORAL For Anxiety 10/26/17 14:00 11/25/17 13:59 Morphine Sulfate (Morphine Sulfate) 2 mg EVERY 4 HOURS PRN IVP Moderate Pain (Pain Scale 4-6) 10/24/17 22:45 10/31/17 22:44 10/26/17 15:18 Ondansetron HCl (Zofran) 4 mg Q6H PRN IVP Nausea & Vomiting 10/24/17 22:45 11/23/17 22:44 Phenazopyridine HCl (Pyridium) 100 mg DAILY PRN ORAL dysuria 10/24/17 22:45 11/23/17 22:44 Polyethylene Glycol (Miralax) 17 gm DAILYPRN PRN ORAL Constipation 10/24/17 22:45 11/23/17 22:44 Janet Rowland M.D. Oct 28, 2017 11:57
[2017-10-28 12:00] VITALS: BP 147/94
[2017-10-28 16:00] VITALS: BP 151/82
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
--- NOTE | 2017-10-28 16:52 | Pulmonology Progress Note ---
Assessment/Plan Problems: (1) Abdominal pain (2) Inguinal hernia (3) Paranoia (4) CKD (chronic kidney disease) Assessment/Plan improving all noted ID consult appreciated dc home with symptomatic treatment social service for placement Subjective ROS Limited/Unobtainable: No Constitutional: Reports: no symptoms HEENT: Repors: no symptoms Respiratory: Reports: no symptoms Allergies: Uncoded Allergies: anesthesia (Allergy, Unknown, 07/04/14) Objective Last 24 Hour Vital Signs Date Time Temp Pulse Resp B/P (MAP) Pulse Ox O2 Delivery O2 Flow Rate FiO2 10/28/17 16:00 97.7 96 21 151/82 98 10/28/17 12:00 97.0 78 20 147/94 97 10/28/17 08:00 97.0 91 20 151/96 97 10/28/17 04:00 97.2 81 20 127/85 97 10/28/17 00:00 98.0 101 18 159/91 96 10/27/17 20:00 97.6 97 20 140/87 97 10/27/17 19:00 71 18 Room Air 21 Intake and Output 10/27/17 10/28/17 19:00 07:00 Intake Total 600 ml 240 ml Balance 600 ml 240 ml Intake Oral 600 ml 240 ml # Voids 4 2 Objective General Appearance: WD/WN HEENT: normocephalic, anicteric Respiratory/Chest: chest wall non-tender, normal breath sounds Breasts: no masses Cardiovascular: regular rhythm Genitourinary: normal external genitalia Extremities: no clubbing Skin: no rash, no lesions Current Medications Medications (Trade) Dose Ordered Sig/Lucie Route PRN Reason Start Time Stop Time Status Last Admin Dose Admin Acetaminophen (Tylenol) 650 mg Q4H PRN ORAL fever 10/24/17 22:45 11/23/17 22:44 Albuterol/ Ipratropium (Albuterol/ Ipratropium) 3 ml EVERY 4 HOURS PRN HHN Shortness of Breath 10/24/17 22:45 10/29/17 22:44 Aspirin (ASA) 81 mg DAILY ORAL 10/26/17 09:00 11/25/17 08:59 10/28/17 08:19 Heparin Sodium (Porcine) (Heparin 5000 units/ml) 5,000 units EVERY 12 HOURS SUBQ 10/25/17 09:00 11/24/17 08:59 10/28/17 08:20 Methadone HCl (Methadone HCl) 10 mg Q6HR ORAL 10/26/17 10:30 11/02/17 10:29 10/28/17 11:54 Mirtazapine (Remeron) 7.5 mg BEDTIME PRN ORAL For Anxiety 10/26/17 14:00 11/25/17 13:59 Morphine Sulfate (Morphine Sulfate) 2 mg EVERY 4 HOURS PRN IVP Moderate Pain (Pain Scale 4-6) 10/24/17 22:45 10/31/17 22:44 10/26/17 15:18 Ondansetron HCl (Zofran) 4 mg Q6H PRN IVP Nausea & Vomiting 10/24/17 22:45 11/23/17 22:44 Phenazopyridine HCl (Pyridium) 100 mg DAILY PRN ORAL dysuria 10/24/17 22:45 11/23/17 22:44 Polyethylene Glycol (Miralax) 17 gm DAILYPRN PRN ORAL Constipation 10/24/17 22:45 11/23/17 22:44 TIARA MIRANDA Oct 28, 2017 16:52
[2017-10-28 20:00] VITALS: BP 145/98
[2017-10-29] VITALS (7 sets, daily range): BP systolic 131–161; BP diastolic 85–97
[2017-10-29] MEDS: Heparin 5000 units/ml inj SUBQ SCH ×2 (08:50→20:53)
[2017-10-29] MEDS: Aspirin Baby 81mg ORAL SCH (08:50)
--- NOTE | 2017-10-29 09:43 | Progress Note ---
DATE: 10/28/2017 SUBJECTIVE: The patient is calmer and more cooperative. No behavior issues. At this time, he has consciousness, more cooperative, and calmer. MENTAL STATUS EXAMINATION: The patient is alert and oriented x1. Mood is neutral. Affect is flat. Congruent with mood. Thought process is concrete. Thought content, no suicidal or homicidal ideation. Cognition is impaired. ASSESSMENT: Encephalopathy. PLAN: 1. The patient will be continued on mirtazapine 7.5 mg at bedtime. 2. We will continue to follow and readjust the medications. Mckenna Bermudez M.D. DR: Deepa JOB#: [id number] CC:
--- NOTE | 2017-10-29 11:50 | Infectious Diseases Prog Note ---
Assessment/Plan Assessment/Plan ASSESSMENT: The patient is a 67-year-old male with: 1. Status post leukocytosis due to acute stress. 2. Gastroenteritis, resolved. 3. Pyuria, however, the patient has no symptoms, doubt UTI (assymptomatic bacteriuria) -u/a WBC TNTC- ucx >100k E. fecalis (S Vanco, amp), 30-40k mixed gram positive growth 4. HAMZAH, worsening -. History of recurrent urinary tract infection. -. History of osteomyelitis of the second left toe and distal phalanx. -History of prostate cancer. -. History of renal stone and CKD. -. History of abnormal liver function tests and hepatitis C positive. - History of IV drug abuse. PLAN: 1. We will monitor patient off of antibiotics. 2. Monitor CBC. 3. Monitor BMP. 4. aspiration precautions Thank you, Dr. Mooney, for allowing me to participate in the care of this patient. I will follow the patient with you during this hospitalization. Subjective Allergies: Uncoded Allergies: anesthesia (Allergy, Unknown, 07/04/14) Subjective afebrile no leukocytosis no UTI symptoms Cr worsening n/v resolved Objective Vital Signs Last 24 Hour Vital Signs Date Time Temp Pulse Resp B/P (MAP) Pulse Ox O2 Delivery O2 Flow Rate FiO2 10/29/17 08:00 97.8 82 19 150/85 100 10/29/17 06:40 85 20 Room Air 21 10/29/17 04:00 97.4 95 19 146/93 95 10/29/17 00:00 97.7 97 18 136/87 95 10/28/17 20:00 98.6 83 18 145/98 96 10/28/17 19:16 98 21 Room Air 21 10/28/17 16:00 97.7 96 21 151/82 98 10/28/17 12:00 97.0 78 20 147/94 97 Height (Feet): 5 Height (Inches): 7.00 Weight (Pounds): 165 Objective HEENT: No pale conjunctivae. No icterus. NECK: No lymphadenopathy. CHEST: Clear. HEART: S1 and S2. ABDOMEN: Soft and nontender. EXTREMITIES: No cyanosis or cellulitis noted. NEUROLOGICAL: Awake. Current Medications Medications (Trade) Dose Ordered Sig/Lucie Route PRN Reason Start Time Stop Time Status Last Admin Dose Admin Acetaminophen (Tylenol) 650 mg Q4H PRN ORAL fever 10/24/17 22:45 11/23/17 22:44 Albuterol/ Ipratropium (Albuterol/ Ipratropium) 3 ml EVERY 4 HOURS PRN HHN Shortness of Breath 10/24/17 22:45 10/29/17 22:44 Aspirin (ASA) 81 mg DAILY ORAL 10/26/17 09:00 11/25/17 08:59 10/29/17 08:50 Heparin Sodium (Porcine) (Heparin 5000 units/ml) 5,000 units EVERY 12 HOURS SUBQ 10/25/17 09:00 11/24/17 08:59 10/29/17 08:50 Methadone HCl (Methadone HCl) 10 mg Q6HR ORAL 10/26/17 10:30 11/02/17 10:29 10/29/17 05:42 Mirtazapine (Remeron) 7.5 mg BEDTIME PRN ORAL For Anxiety 10/26/17 14:00 11/25/17 13:59 Morphine Sulfate (Morphine Sulfate) 2 mg EVERY 4 HOURS PRN IVP Moderate Pain (Pain Scale 4-6) 10/24/17 22:45 10/31/17 22:44 10/26/17 15:18 Ondansetron HCl (Zofran) 4 mg Q6H PRN IVP Nausea & Vomiting 10/24/17 22:45 11/23/17 22:44 Phenazopyridine HCl (Pyridium) 100 mg DAILY PRN ORAL dysuria 10/24/17 22:45 11/23/17 22:44 Polyethylene Glycol (Miralax) 17 gm DAILYPRN PRN ORAL Constipation 10/24/17 22:45 11/23/17 22:44 Janet Rowland M.D. Oct 29, 2017 11:50
--- NOTE | 2017-10-29 16:06 | Pulmonology Progress Note ---
Assessment/Plan Problems: (1) Abdominal pain (2) Inguinal hernia (3) Paranoia (4) CKD (chronic kidney disease) Assessment/Plan improving, no new complains all noted ID consult appreciated dc home with symptomatic treatment social service for placement Subjective ROS Limited/Unobtainable: No Constitutional: Reports: no symptoms Respiratory: Reports: no symptoms Allergies: Uncoded Allergies: anesthesia (Allergy, Unknown, 07/04/14) Objective Last 24 Hour Vital Signs Date Time Temp Pulse Resp B/P (MAP) Pulse Ox O2 Delivery O2 Flow Rate FiO2 10/29/17 12:00 97.1 84 19 146/90 100 10/29/17 08:00 97.8 82 19 150/85 100 10/29/17 06:40 85 20 Room Air 21 10/29/17 04:00 97.4 95 19 146/93 95 10/29/17 00:00 97.7 97 18 136/87 95 10/28/17 20:00 98.6 83 18 145/98 96 10/28/17 19:16 98 21 Room Air 21 Intake and Output 10/28/17 10/29/17 19:00 07:00 Intake Total 600 ml 240 ml Balance 600 ml 240 ml Intake Oral 600 ml 240 ml # Voids 2 2 Objective General Appearance: WD/WN HEENT: normocephalic, anicteric Respiratory/Chest: chest wall non-tender, normal breath sounds Breasts: no masses Cardiovascular: regular rhythm Genitourinary: normal external genitalia Extremities: no clubbing Skin: no rash, no lesions Current Medications Medications (Trade) Dose Ordered Sig/Lucie Route PRN Reason Start Time Stop Time Status Last Admin Dose Admin Acetaminophen (Tylenol) 650 mg Q4H PRN ORAL fever 10/24/17 22:45 11/23/17 22:44 Albuterol/ Ipratropium (Albuterol/ Ipratropium) 3 ml EVERY 4 HOURS PRN HHN Shortness of Breath 10/24/17 22:45 10/29/17 22:44 Aspirin (ASA) 81 mg DAILY ORAL 10/26/17 09:00 11/25/17 08:59 10/29/17 08:50 Heparin Sodium (Porcine) (Heparin 5000 units/ml) 5,000 units EVERY 12 HOURS SUBQ 10/25/17 09:00 2/5/18 08:59 10/29/17 08:50 Methadone HCl (Methadone HCl) 10 mg Q6HR ORAL 10/26/17 10:30 11/02/17 10:29 10/29/17 12:44 Mirtazapine (Remeron) 7.5 mg BEDTIME PRN ORAL For Anxiety 10/26/17 14:00 11/25/17 13:59 Morphine Sulfate (Morphine Sulfate) 2 mg EVERY 4 HOURS PRN IVP Moderate Pain (Pain Scale 4-6) 10/24/17 22:45 10/31/17 22:44 10/26/17 15:18 Ondansetron HCl (Zofran) 4 mg Q6H PRN IVP Nausea & Vomiting 10/24/17 22:45 11/23/17 22:44 Phenazopyridine HCl (Pyridium) 100 mg DAILY PRN ORAL dysuria 10/24/17 22:45 11/23/17 22:44 Polyethylene Glycol (Miralax) 17 gm DAILYPRN PRN ORAL Constipation 10/24/17 22:45 11/23/17 22:44 TIARA MIRANDA Oct 29, 2017 16:06
[2017-10-30] VITALS: BP 167/98
[2017-10-30 02:00] VITALS: BP 110/70
[2017-10-30 04:00] VITALS: BP 131/94
[2017-10-30 08:00] VITALS: BP 134/96
[2017-10-30] MEDS: Aspirin Baby 81mg ORAL SCH (08:56)
[2017-10-30] MEDS: Heparin 5000 units/ml inj SUBQ SCH ×2 (08:57→21:31)
[2017-10-30 11:22] VITALS: BP 146/98
[2017-10-30 13:02] LABS: BASOPHILS % (AUTO) 0.4 % (0.0-2.0); EOSINOPHILS % (AUTO) 0.9 % (0.0-3.0); HEMATOCRIT 45.1 % (42.0-52.0); HEMOGLOBIN 14.2 G/DL (14.2-18.0); LYMPHOCYTES % (AUTO) 54.2 % (20.0-45.0); MEAN CORPUSCULAR VOLUME 96 FL (80-99); MONOCYTES % (AUTO) 7.9 % (1.0-10.0); NEUTROPHILS % (AUTO) 36.6 % (45.0-75.0); PLATELET COUNT 300 K/UL (150-450); RED BLOOD COUNT 4.71 M/UL (4.70-6.10); RED CELL DISTRIBUTION WIDTH 12.7 % (11.6-14.8); WHITE BLOOD COUNT 11.5 K/UL (4.8-10.8)
[2017-10-30 13:10] LABS: ANION GAP 9 mmol/L (5-15); BLOOD UREA NITROGEN 25 mg/dL (7-18); CALCIUM 9.7 MG/DL (8.5-10.1); CARBON DIOXIDE 28 MMOL/L (21-32); CHLORIDE 103 MMOL/L (98-107); CREATININE 1.7 MG/DL (0.55-1.30); POTASSIUM 4.4 MMOL/L (3.5-5.1); SODIUM 140 MMOL/L (136-145)
[2017-10-30 13:13] LABS: AMMONIA 19 umol/L (11-32)
[2017-10-30 16:00] VITALS: BP_SYST 146; BP_SYST 153; BP_DIAS 97; BP_DIAS 98
--- NOTE | 2017-10-30 16:13 | Infectious Diseases Prog Note ---
Assessment/Plan Assessment/Plan ASSESSMENT: The patient is a 67-year-old male with: 1. Status post leukocytosis due to acute stress.; now recurrent and worst confusion- will start Rx for possible UTI 2. Gastroenteritis, resolved. 3. Pyuria, however, the patient has no symptoms, doubt UTI (assymptomatic bacteriuria) -u/a WBC TNTC- ucx >100k E. fecalis (S Vanco, amp), 30-40k mixed gram positive growth 4. HAMZAH, worsening -. History of recurrent urinary tract infection. -. History of osteomyelitis of the second left toe and distal phalanx. -History of prostate cancer. -. History of renal stone and CKD. -. History of abnormal liver function tests and hepatitis C positive. - History of IV drug abuse. PLAN: 1. Start IV ampicillin #1/5 for possible UTI; when tolerating PO will switch to PO ampicillin 2. Monitor CBC.; cbc am, repeat u/a w/ reflex and obtain CXR 3. Monitor BMP. 4. aspiration precautions Thank you, Dr. Mooney, for allowing me to participate in the care of this patient. I will follow the patient with you during this hospitalization. Subjective Allergies: Uncoded Allergies: anesthesia (Allergy, Unknown, 07/04/14) Subjective afebrile mild leukocytosis today more confused today Objective Vital Signs Last 24 Hour Vital Signs Date Time Temp Pulse Resp B/P (MAP) Pulse Ox O2 Delivery O2 Flow Rate FiO2 10/30/17 11:22 97.8 94 18 146/98 96 Room Air 10/30/17 08:00 98.5 100 20 134/96 96 Room Air 10/30/17 04:00 97.8 97 21 131/94 99 10/30/17 02:00 110/70 10/30/17 00:00 98.2 84 21 167/98 96 10/29/17 20:00 98.7 84 21 161/97 96 10/29/17 19:49 107 20 Room Air 21 10/29/17 18:00 97.9 78 19 131/85 100 Height (Feet): 5 Height (Inches): 7.00 Weight (Pounds): 165 Objective HEENT: No pale conjunctivae. No icterus. NECK: No lymphadenopathy. CHEST: Clear. HEART: S1 and S2. ABDOMEN: Soft and nontender. EXTREMITIES: No cyanosis or cellulitis noted. NEUROLOGICAL: Awake. Laboratory Tests Test 10/30/17 12:45 White Blood Count 11.5 K/UL (4.8-10.8) H Red Blood Count 4.71 M/UL (4.70-6.10) Hemoglobin 14.2 G/DL (14.2-18.0) Hematocrit 45.1 % (42.0-52.0) Mean Corpuscular Volume 96 FL (80-99) Mean Corpuscular Hemoglobin 30.1 PG (27.0-31.0) Mean Corpuscular Hemoglobin Concent 31.5 G/DL (32.0-36.0) L Red Cell Distribution Width 12.7 % (11.6-14.8) Platelet Count 300 K/UL (150-450) Mean Platelet Volume 6.3 FL (6.5-10.1) L Neutrophils (%) (Auto) 36.6 % (45.0-75.0) L Lymphocytes (%) (Auto) 54.2 % (20.0-45.0) H Monocytes (%) (Auto) 7.9 % (1.0-10.0) Eosinophils (%) (Auto) 0.9 % (0.0-3.0) Basophils (%) (Auto) 0.4 % (0.0-2.0) Sodium Level 140 MMOL/L (136-145) Potassium Level 4.4 MMOL/L (3.5-5.1) Chloride Level 103 MMOL/L (98-107) Carbon Dioxide Level 28 MMOL/L (21-32) Anion Gap 9 mmol/L (5-15) Blood Urea Nitrogen 25 mg/dL (7-18) H Creatinine 1.7 MG/DL (0.55-1.30) H Estimat Glomerular Filtration Rate 48.8 mL/min (>60) Glucose Level 120 MG/DL (74-106) H Calcium Level 9.7 MG/DL (8.5-10.1) Ammonia 19 umol/L (11-32) Current Medications Medications (Trade) Dose Ordered Sig/Lucie Route PRN Reason Start Time Stop Time Status Last Admin Dose Admin Acetaminophen (Tylenol) 650 mg Q4H PRN ORAL fever 10/24/17 22:45 11/23/17 22:44 Aspirin (ASA) 81 mg DAILY ORAL 10/26/17 09:00 11/25/17 08:59 10/30/17 08:56 Heparin Sodium (Porcine) (Heparin 5000 units/ml) 5,000 units EVERY 12 HOURS SUBQ 10/25/17 09:00 11/24/17 08:59 10/30/17 08:57 Methadone HCl (Methadone HCl) 10 mg Q6HR ORAL 10/26/17 10:30 11/02/17 10:29 10/30/17 12:09 Mirtazapine (Remeron) 7.5 mg BEDTIME PRN ORAL For Anxiety 10/26/17 14:00 11/25/17 13:59 Morphine Sulfate (Morphine Sulfate) 2 mg EVERY 4 HOURS PRN IVP Moderate Pain (Pain Scale 4-6) 10/24/17 22:45 10/31/17 22:44 10/26/17 15:18 Ondansetron HCl (Zofran) 4 mg Q6H PRN IVP Nausea & Vomiting 10/24/17 22:45 11/23/17 22:44 Phenazopyridine HCl (Pyridium) 100 mg DAILY PRN ORAL dysuria 10/24/17 22:45 11/23/17 22:44 Polyethylene Glycol (Miralax) 17 gm DAILYPRN PRN ORAL Constipation 10/24/17 22:45 11/23/17 22:44 Janet Rowland M.D. Oct 30, 2017 16:13
[2017-10-30] MEDS ORDERED: Ampicillin 1 GM in NS 55 ML IVPB SCH (18:00)
--- NOTE | 2017-10-30 18:37 | Pulmonology Progress Note ---
Assessment/Plan Problems: (1) Abdominal pain (2) Inguinal hernia (3) Paranoia (4) CKD (chronic kidney disease) Assessment/Plan improving, no new complains all noted ID consult appreciated dc home with symptomatic treatment all reviewed psych to see social service for placement Subjective ROS Limited/Unobtainable: No Constitutional: Reports: no symptoms HEENT: Repors: no symptoms Respiratory: Reports: no symptoms Allergies: Uncoded Allergies: anesthesia (Allergy, Unknown, 07/04/14) Objective Last 24 Hour Vital Signs Date Time Temp Pulse Resp B/P (MAP) Pulse Ox O2 Delivery O2 Flow Rate FiO2 10/30/17 11:22 97.8 94 18 146/98 96 Room Air 10/30/17 08:00 98.5 100 20 134/96 96 Room Air 10/30/17 04:00 97.8 97 21 131/94 99 10/30/17 02:00 110/70 10/30/17 00:00 98.2 84 21 167/98 96 10/29/17 20:00 98.7 84 21 161/97 96 10/29/17 19:49 107 20 Room Air 21 Intake and Output 10/29/17 10/30/17 19:00 07:00 Intake Total 630 ml Balance 630 ml Intake Oral 630 ml # Voids 7 Objective General Appearance: WD/WN HEENT: normocephalic, anicteric Respiratory/Chest: chest wall non-tender, normal breath sounds Breasts: no masses Cardiovascular: regular rhythm Genitourinary: normal external genitalia Extremities: no clubbing Skin: no rash, no lesions Laboratory Tests 10/30/17 12:45: White Blood Count 11.5H, Red Blood Count 4.71, Hemoglobin 14.2, Hematocrit 45.1 , Mean Corpuscular Volume 96, Mean Corpuscular Hemoglobin 30.1, Mean Corpuscular Hemoglobin Concent 31.5L, Red Cell Distribution Width 12.7, Platelet Count 300, Mean Platelet Volume 6.3L, Neutrophils (%) (Auto) 36.6L, Lymphocytes (%) (Auto) 54.2H, Monocytes (%) (Auto) 7.9, Eosinophils (%) (Auto) 0.9, Basophils (%) (Auto) 0.4, Sodium Level 140, Potassium Level 4.4, Chloride Level 103, Carbon Dioxide Level 28, Anion Gap 9, Blood Urea Nitrogen 25H, Creatinine 1.7H, Estimat Glomerular Filtration Rate 48.8, Glucose Level 120H, Calcium Level 9.7, Ammonia 19 Current Medications Medications (Trade) Dose Ordered Sig/Lucie Route PRN Reason Start Time Stop Time Status Last Admin Dose Admin Acetaminophen (Tylenol) 650 mg Q4H PRN ORAL fever 10/24/17 22:45 11/23/17 22:44 Ampicillin 1 gm/ Sodium Chloride 55 ml @ 110 mls/hr EVERY 6 HOURS IVPB 10/30/17 18:00 11/06/17 17:59 Aspirin (ASA) 81 mg DAILY ORAL 10/26/17 09:00 11/25/17 08:59 10/30/17 08:56 Heparin Sodium (Porcine) (Heparin 5000 units/ml) 5,000 units EVERY 12 HOURS SUBQ 10/25/17 09:00 11/24/17 08:59 10/30/17 08:57 Methadone HCl (Methadone HCl) 10 mg Q6HR ORAL 10/26/17 10:30 11/02/17 10:29 10/30/17 18:10 Mirtazapine (Remeron) 7.5 mg BEDTIME PRN ORAL For Anxiety 10/26/17 14:00 11/25/17 13:59 Morphine Sulfate (Morphine Sulfate) 2 mg EVERY 4 HOURS PRN IVP Moderate Pain (Pain Scale 4-6) 10/24/17 22:45 10/31/17 22:44 10/26/17 15:18 Ondansetron HCl (Zofran) 4 mg Q6H PRN IVP Nausea & Vomiting 10/24/17 22:45 11/23/17 22:44 Phenazopyridine HCl (Pyridium) 100 mg DAILY PRN ORAL dysuria 10/24/17 22:45 11/23/17 22:44 Polyethylene Glycol (Miralax) 17 gm DAILYPRN PRN ORAL Constipation 10/24/17 22:45 11/23/17 22:44 TIARA MIRANDA Oct 30, 2017 18:37
[2017-10-31] VITALS (7 sets, daily range): BP systolic 108–137; BP diastolic 72–96
[2017-10-31] MEDS: Heparin 5000 units/ml inj SUBQ SCH ×2 (09:00→20:46)
[2017-10-31] MEDS: Aspirin Baby 81mg ORAL SCH (09:00)
[2017-10-31] MEDS ORDERED: Haloperidol 5mg/ml Inj IM PRN (14:30)
[2017-10-31] MEDS ORDERED: Haloperidol Decanoate 50mg Inj IM PRN (14:30)
--- NOTE | 2017-10-31 16:32 | Pulmonology Progress Note ---
Assessment/Plan Problems: (1) Abdominal pain (2) Inguinal hernia (3) Paranoia (4) CKD (chronic kidney disease) Assessment/Plan improving, no new complains all noted ID consult appreciated all reviewed psych to see social service for placement on oral abx Subjective ROS Limited/Unobtainable: No Constitutional: Reports: no symptoms HEENT: Repors: no symptoms Respiratory: Reports: no symptoms Allergies: Uncoded Allergies: anesthesia (Allergy, Unknown, 07/04/14) Objective Last 24 Hour Vital Signs Date Time Temp Pulse Resp B/P (MAP) Pulse Ox O2 Delivery O2 Flow Rate FiO2 10/31/17 15:57 98.0 94 20 132/89 95 10/31/17 12:51 98.4 91 19 120/77 96 10/31/17 12:00 98.1 88 19 133/96 97 10/31/17 08:04 98.3 90 19 137/92 96 10/31/17 04:00 97.8 85 19 108/72 96 Room Air 10/31/17 00:00 98.0 106 19 127/92 95 Room Air Intake and Output 10/30/17 10/31/17 19:00 07:00 Intake Total 500 ml Balance 500 ml Intake Oral 500 ml # Voids 6 2 Objective General Appearance: WD/WN HEENT: normocephalic, anicteric Respiratory/Chest: chest wall non-tender, normal breath sounds Breasts: no masses Cardiovascular: regular rhythm Genitourinary: normal external genitalia Extremities: no clubbing Skin: no rash, no lesions Current Medications Medications (Trade) Dose Ordered Sig/Lucie Route PRN Reason Start Time Stop Time Status Last Admin Dose Admin Acetaminophen (Tylenol) 650 mg Q4H PRN ORAL fever 10/24/17 22:45 11/23/17 22:44 Ampicillin (Ampicillin) 500 mg EVERY 6 HOURS ORAL 10/31/17 00:00 11/07/17 00:00 10/31/17 12:56 Aspirin (ASA) 81 mg DAILY ORAL 10/26/17 09:00 11/25/17 08:59 10/30/17 08:56 Chlorpromazine (Thorazine) 25 mg Q6H PRN IM Agitation 10/30/17 19:30 11/29/17 19:29 10/30/17 21:28 Haloperidol Lactate (Haldol) 5 mg Q4H PRN IM Breakthrough Agitation 10/31/17 14:30 11/30/17 14:29 Heparin Sodium (Porcine) (Heparin 5000 units/ml) 5,000 units EVERY 12 HOURS SUBQ 10/25/17 09:00 11/24/17 08:59 10/30/17 21:31 Methadone HCl (Methadone HCl) 10 mg Q6HR ORAL 10/26/17 10:30 11/02/17 10:29 10/31/17 12:57 Mirtazapine (Remeron) 7.5 mg BEDTIME PRN ORAL For Anxiety 10/26/17 14:00 11/25/17 13:59 Morphine Sulfate (Morphine Sulfate) 2 mg EVERY 4 HOURS PRN IVP Moderate Pain (Pain Scale 4-6) 10/24/17 22:45 10/31/17 22:44 10/26/17 15:18 Ondansetron HCl (Zofran) 4 mg Q6H PRN IVP Nausea & Vomiting 10/24/17 22:45 11/23/17 22:44 Phenazopyridine HCl (Pyridium) 100 mg DAILY PRN ORAL dysuria 10/24/17 22:45 11/23/17 22:44 Polyethylene Glycol (Miralax) 17 gm DAILYPRN PRN ORAL Constipation 10/24/17 22:45 11/23/17 22:44 TIARA MIRANDA Oct 31, 2017 16:32
--- NOTE | 2017-10-31 16:50 | Infectious Diseases Prog Note ---
Assessment/Plan Assessment/Plan ASSESSMENT: The patient is a 67-year-old male with: 1. Status post leukocytosis due to acute stress.; now recurrent and worse confusion- will start Rx for possible UTI 2. Gastroenteritis, resolved. 3. Pyuria/bacteriuria -u/a WBC TNTC- ucx >100k E. fecalis (S Vanco, amp), 30-40k mixed gram positive growth 4. HAMZAH, improving -. History of recurrent urinary tract infection. -. History of osteomyelitis of the second left toe and distal phalanx. -History of prostate cancer. -. History of renal stone and CKD. -. History of abnormal liver function tests and hepatitis C positive. -hEp C VL 42K - History of IV drug abuse. PLAN: 1. Continue PO ampicillin #2/5 for possible UTI 2. Monitor CBC.; cbc am, repeat u/a w/ reflex and obtain CXR 3. Monitor BMP. 4. aspiration precautions 5. Will check for Hep A and B immunity, if not, will need vaccine. Thank you, Dr. Mooney, for allowing me to participate in the care of this patient. I will follow the patient with you during this hospitalization. Subjective Allergies: Uncoded Allergies: anesthesia (Allergy, Unknown, 07/04/14) Subjective afebrile mild leukocytosis today more confused today Objective Vital Signs Last 24 Hour Vital Signs Date Time Temp Pulse Resp B/P (MAP) Pulse Ox O2 Delivery O2 Flow Rate FiO2 10/31/17 15:57 98.0 94 20 132/89 95 10/31/17 12:51 98.4 91 19 120/77 96 10/31/17 12:00 98.1 88 19 133/96 97 10/31/17 08:04 98.3 90 19 137/92 96 10/31/17 04:00 97.8 85 19 108/72 96 Room Air 10/31/17 00:00 98.0 106 19 127/92 95 Room Air Height (Feet): 5 Height (Inches): 7.00 Weight (Pounds): 165 Objective HEENT: No pale conjunctivae. No icterus. NECK: No lymphadenopathy. CHEST: Clear. HEART: S1 and S2. ABDOMEN: Soft and nontender. EXTREMITIES: No cyanosis or cellulitis noted. NEUROLOGICAL: Awake. Current Medications Medications (Trade) Dose Ordered Sig/Lucie Route PRN Reason Start Time Stop Time Status Last Admin Dose Admin Acetaminophen (Tylenol) 650 mg Q4H PRN ORAL fever 10/24/17 22:45 11/23/17 22:44 Ampicillin (Ampicillin) 500 mg EVERY 6 HOURS ORAL 10/31/17 00:00 11/07/17 00:00 10/31/17 12:56 Aspirin (ASA) 81 mg DAILY ORAL 10/26/17 09:00 11/25/17 08:59 10/30/17 08:56 Chlorpromazine (Thorazine) 25 mg Q6H PRN IM Agitation 10/30/17 19:30 11/29/17 19:29 10/30/17 21:28 Haloperidol Lactate (Haldol) 5 mg Q4H PRN IM Breakthrough Agitation 10/31/17 14:30 11/30/17 14:29 Heparin Sodium (Porcine) (Heparin 5000 units/ml) 5,000 units EVERY 12 HOURS SUBQ 10/25/17 09:00 11/24/17 08:59 10/30/17 21:31 Methadone HCl (Methadone HCl) 10 mg Q6HR ORAL 10/26/17 10:30 11/02/17 10:29 10/31/17 12:57 Mirtazapine (Remeron) 7.5 mg BEDTIME PRN ORAL For Anxiety 10/26/17 14:00 11/25/17 13:59 Morphine Sulfate (Morphine Sulfate) 2 mg EVERY 4 HOURS PRN IVP Moderate Pain (Pain Scale 4-6) 10/24/17 22:45 10/31/17 22:44 10/26/17 15:18 Ondansetron HCl (Zofran) 4 mg Q6H PRN IVP Nausea & Vomiting 10/24/17 22:45 11/23/17 22:44 Phenazopyridine HCl (Pyridium) 100 mg DAILY PRN ORAL dysuria 10/24/17 22:45 11/23/17 22:44 Polyethylene Glycol (Miralax) 17 gm DAILYPRN PRN ORAL Constipation 10/24/17 22:45 11/23/17 22:44 Janet Rowland M.D. Oct 31, 2017 16:50
--- NOTE | 2017-10-31 18:15 | Diagnostic Imaging Report ---
Indication: Cough Technique: AP view of the chest Comparison: 02/01/2016 Findings: Heart size and mediastinal contours are within normal limits. The thoracic aorta is tortuous. There is patchy left basilar opacities, possibly related to vascular crowding and/or subsegmental atelectasis. Otherwise, no focal airspace consolidation. No pleural effusion or pneumothorax. There is biapical pleural scarring. Impression: Patchy left basilar opacity possibly related to atelectasis. Additional etiologies including developing pneumonia not entirely excluded. Clinical correlation and follow-up exam recommended.
[2017-11-01 00:11] VITALS: BP 131/85
[2017-11-01] MEDS: Miralax 17gm pkt ORAL PRN (00:40)
[2017-11-01 04:01] VITALS: BP 127/86
[2017-11-01 08:00] VITALS: BP 128/84
[2017-11-01 08:08] LABS: BASOPHILS % (AUTO) 0.7 % (0.0-2.0); EOSINOPHILS % (AUTO) 1.3 % (0.0-3.0); HEMATOCRIT 42.7 % (42.0-52.0); HEMOGLOBIN 13.7 G/DL (14.2-18.0); LYMPHOCYTES % (AUTO) 41.3 % (20.0-45.0); MEAN CORPUSCULAR VOLUME 96 FL (80-99); MONOCYTES % (AUTO) 8.8 % (1.0-10.0); NEUTROPHILS % (AUTO) 47.8 % (45.0-75.0); PLATELET COUNT 253 K/UL (150-450); RED BLOOD COUNT 4.43 M/UL (4.70-6.10); RED CELL DISTRIBUTION WIDTH 12.7 % (11.6-14.8); WHITE BLOOD COUNT 9.1 K/UL (4.8-10.8)
--- NOTE | 2017-11-01 09:31 | Pulmonology Progress Note ---
Assessment/Plan Problems: (1) Abdominal pain (2) Inguinal hernia (3) Paranoia (4) CKD (chronic kidney disease) Assessment/Plan improving, no new complains all noted all reviewed psych to see social service for placement on oral abx Subjective ROS Limited/Unobtainable: No Allergies: Uncoded Allergies: anesthesia (Allergy, Unknown, 07/04/14) Objective Last 24 Hour Vital Signs Date Time Temp Pulse Resp B/P (MAP) Pulse Ox O2 Delivery O2 Flow Rate FiO2 11/01/17 08:00 98.4 94 20 128/84 96 Room Air 11/01/17 04:01 98.3 99 18 127/86 95 11/01/17 00:11 98.1 104 20 131/85 94 10/31/17 20:09 98.4 110 20 127/88 95 10/31/17 15:57 98.0 94 20 132/89 95 10/31/17 12:51 98.4 91 19 120/77 96 10/31/17 12:00 98.1 88 19 133/96 97 Intake and Output 10/31/17 11/01/17 19:00 07:00 Intake Total 440 ml 360 ml Output Total 600 ml Balance -160 ml 360 ml Intake Oral 440 ml 360 ml Output Urine Total 600 ml # Voids 2 Objective General Appearance: WD/WN HEENT: normocephalic, anicteric Respiratory/Chest: chest wall non-tender, normal breath sounds Breasts: no masses Cardiovascular: regular rhythm Genitourinary: normal external genitalia Extremities: no clubbing Skin: no rash, no lesions Laboratory Tests 11/01/17 07:45: White Blood Count 9.1, Red Blood Count 4.43L, Hemoglobin 13.7L, Hematocrit 42.7 , Mean Corpuscular Volume 96, Mean Corpuscular Hemoglobin 31.0, Mean Corpuscular Hemoglobin Concent 32.2, Red Cell Distribution Width 12.7, Platelet Count 253, Mean Platelet Volume 6.5, Neutrophils (%) (Auto) 47.8, Lymphocytes (% ) (Auto) 41.3, Monocytes (%) (Auto) 8.8, Eosinophils (%) (Auto) 1.3, Basophils ( %) (Auto) 0.7, Hepatitis A Antibody Total [Pending], Hepatitis B Surface Antigen [Pending], Hepatitis B Surface Antibody [Pending], Hepatitis B Core Total Antibody [Pending], HIV (1&2) Antibody Rapid [Pending] Current Medications Medications (Trade) Dose Ordered Sig/Lucie Route PRN Reason Start Time Stop Time Status Last Admin Dose Admin Acetaminophen (Tylenol) 650 mg Q4H PRN ORAL fever 10/24/17 22:45 11/23/17 22:44 Ampicillin (Ampicillin) 500 mg EVERY 6 HOURS ORAL 10/31/17 00:00 11/07/17 00:00 11/01/17 05:46 Aspirin (ASA) 81 mg DAILY ORAL 10/26/17 09:00 11/25/17 08:59 10/30/17 08:56 Chlorpromazine (Thorazine) 25 mg Q6H PRN IM Agitation 10/30/17 19:30 11/29/17 19:29 10/30/17 21:28 Haloperidol Lactate (Haldol) 5 mg Q4H PRN IM Breakthrough Agitation 10/31/17 14:30 11/30/17 14:29 Heparin Sodium (Porcine) (Heparin 5000 units/ml) 5,000 units EVERY 12 HOURS SUBQ 10/25/17 09:00 11/24/17 08:59 10/31/17 20:46 Methadone HCl (Methadone HCl) 10 mg Q6HR ORAL 10/26/17 10:30 11/02/17 10:29 10/31/17 18:30 Mirtazapine (Remeron) 7.5 mg BEDTIME PRN ORAL For Anxiety 10/26/17 14:00 11/25/17 13:59 Ondansetron HCl (Zofran) 4 mg Q6H PRN IVP Nausea & Vomiting 10/24/17 22:45 11/23/17 22:44 Phenazopyridine HCl (Pyridium) 100 mg DAILY PRN ORAL dysuria 10/24/17 22:45 11/23/17 22:44 Polyethylene Glycol (Miralax) 17 gm DAILYPRN PRN ORAL Constipation 10/24/17 22:45 11/23/17 22:44 11/01/17 00:40 TIARA MIRANDA Nov 01, 2017 09:30
[2017-11-01] MEDS: Aspirin Baby 81mg ORAL SCH (10:10)
[2017-11-01] MEDS: Heparin 5000 units/ml inj SUBQ SCH ×2 (10:11→20:06)
[2017-11-01 12:00] VITALS: BP 125/76
--- NOTE | 2017-11-01 13:07 | Infectious Diseases Prog Note ---
Assessment/Plan Assessment/Plan ASSESSMENT: The patient is a 67-year-old male with: Status post leukocytosis due to acute stress.; now recurrent and worse confusion - will start Rx for possible UTI Gastroenteritis, resolved. Pyuria/bacteriuria -u/a WBC TNTC- ucx >100k E. fecalis (S Vanco, amp), 30-40k mixed gram positive growth-. History of abnormal liver function tests and hepatitis C positive. -hEp C VL 42K - History of IV drug abuse. -. History of recurrent urinary tract infection. -. History of osteomyelitis of the second left toe and distal phalanx. -History of prostate cancer. -HAMZAH, improving -. History of renal stone and CKD. PLAN: 1. Continue PO ampicillin #3 /5 for possible UTI 2. Monitor CBC.; cbc am, 3. Monitor BMP. 4. aspiration precautions 5. Will check for Hep A and B immunity, if not, will need vaccine. Subjective Allergies: Uncoded Allergies: anesthesia (Allergy, Unknown, 07/04/14) Subjective afebrile Objective Vital Signs Last 24 Hour Vital Signs Date Time Temp Pulse Resp B/P (MAP) Pulse Ox O2 Delivery O2 Flow Rate FiO2 11/01/17 08:00 98.4 94 20 128/84 96 Room Air 11/01/17 04:01 98.3 99 18 127/86 95 11/01/17 00:11 98.1 104 20 131/85 94 10/31/17 20:09 98.4 110 20 127/88 95 10/31/17 15:57 98.0 94 20 132/89 95 Height (Feet): 5 Height (Inches): 7.00 Weight (Pounds): 165 Respiratory/Chest: respiratory distress Cardiovascular: no gallop/murmur Abdomen: no mass Laboratory Tests Test 11/01/17 07:45 White Blood Count 9.1 K/UL (4.8-10.8) Red Blood Count 4.43 M/UL (4.70-6.10) L Hemoglobin 13.7 G/DL (14.2-18.0) L Hematocrit 42.7 % (42.0-52.0) Mean Corpuscular Volume 96 FL (80-99) Mean Corpuscular Hemoglobin 31.0 PG (27.0-31.0) Mean Corpuscular Hemoglobin Concent 32.2 G/DL (32.0-36.0) Red Cell Distribution Width 12.7 % (11.6-14.8) Platelet Count 253 K/UL (150-450) Mean Platelet Volume 6.5 FL (6.5-10.1) Neutrophils (%) (Auto) 47.8 % (45.0-75.0) Lymphocytes (%) (Auto) 41.3 % (20.0-45.0) Monocytes (%) (Auto) 8.8 % (1.0-10.0) Eosinophils (%) (Auto) 1.3 % (0.0-3.0) Basophils (%) (Auto) 0.7 % (0.0-2.0) Hepatitis A Antibody Total Pending Hepatitis B Surface Antigen Pending Hepatitis B Surface Antibody Pending Hepatitis B Core Total Antibody Pending HIV (1&2) Antibody Rapid Negative (NEGATIVE) Current Medications Medications (Trade) Dose Ordered Sig/Lucie Route PRN Reason Start Time Stop Time Status Last Admin Dose Admin Acetaminophen (Tylenol) 650 mg Q4H PRN ORAL fever 10/24/17 22:45 11/23/17 22:44 Ampicillin (Ampicillin) 500 mg EVERY 6 HOURS ORAL 10/31/17 00:00 11/07/17 00:00 11/01/17 12:08 Aspirin (ASA) 81 mg DAILY ORAL 10/26/17 09:00 11/25/17 08:59 11/01/17 10:10 Chlorpromazine (Thorazine) 25 mg Q6H PRN IM Agitation 10/30/17 19:30 11/29/17 19:29 10/30/17 21:28 Haloperidol Lactate (Haldol) 5 mg Q4H PRN IM Breakthrough Agitation 10/31/17 14:30 11/30/17 14:29 Heparin Sodium (Porcine) (Heparin 5000 units/ml) 5,000 units EVERY 12 HOURS SUBQ 10/25/17 09:00 11/24/17 08:59 11/01/17 10:11 Methadone HCl (Methadone HCl) 10 mg Q6HR ORAL 10/26/17 10:30 11/02/17 10:29 11/01/17 12:07 Mirtazapine (Remeron) 7.5 mg BEDTIME PRN ORAL For Anxiety 10/26/17 14:00 11/25/17 13:59 Ondansetron HCl (Zofran) 4 mg Q6H PRN IVP Nausea & Vomiting 10/24/17 22:45 11/23/17 22:44 Phenazopyridine HCl (Pyridium) 100 mg DAILY PRN ORAL dysuria 10/24/17 22:45 11/23/17 22:44 Polyethylene Glycol (Miralax) 17 gm DAILYPRN PRN ORAL Constipation 10/24/17 22:45 11/23/17 22:44 11/01/17 00:40 EDMOND ADEN M.D. Nov 01, 2017 13:07
[2017-11-01 16:00] VITALS: BP 124/88
--- NOTE | 2017-11-01 18:57 | General Progress Note ---
Assessment/Plan Assessment/Plan encephalopathy agitation -cont current meds Subjective Date patient seen: Oct 30, 2017 Neurologic/Psychiatric: Reports: anxiety, depressed Allergies: Uncoded Allergies: anesthesia (Allergy, Unknown, 07/04/14) Subjective agitation 1:1 confused Objective Last 24 Hour Vital Signs Date Time Temp Pulse Resp B/P (MAP) Pulse Ox O2 Delivery O2 Flow Rate FiO2 11/01/17 16:00 97.9 92 18 124/88 96 Room Air 11/01/17 12:00 98.2 92 20 125/76 94 Room Air 11/01/17 08:00 98.4 94 20 128/84 96 Room Air 11/01/17 04:01 98.3 99 18 127/86 95 11/01/17 00:11 98.1 104 20 131/85 94 10/31/17 20:09 98.4 110 20 127/88 95 Intake and Output 10/31/17 11/01/17 19:00 07:00 Intake Total 440 ml 360 ml Output Total 600 ml Balance -160 ml 360 ml Intake Oral 440 ml 360 ml Output Urine Total 600 ml # Voids 2 Laboratory Tests 11/01/17 07:45: White Blood Count 9.1, Red Blood Count 4.43L, Hemoglobin 13.7L, Hematocrit 42.7 , Mean Corpuscular Volume 96, Mean Corpuscular Hemoglobin 31.0, Mean Corpuscular Hemoglobin Concent 32.2, Red Cell Distribution Width 12.7, Platelet Count 253, Mean Platelet Volume 6.5, Neutrophils (%) (Auto) 47.8, Lymphocytes (% ) (Auto) 41.3, Monocytes (%) (Auto) 8.8, Eosinophils (%) (Auto) 1.3, Basophils ( %) (Auto) 0.7, Hepatitis A Antibody Total [Pending], Hepatitis B Surface Antigen [Pending], Hepatitis B Surface Antibody [Pending], Hepatitis B Core Total Antibody [Pending], HIV (1&2) Antibody Rapid Negative Height (Feet): 5 Height (Inches): 7.00 Weight (Pounds): 165 General Appearance: no apparent distress, alert, confused, agitated Neurologic: alert, responsive, disoriented Mckenna Bermudez M.D. Nov 01, 2017 18:57
--- NOTE | 2017-11-01 18:58 | Geriatric Progress Note ---
Assessment/Plan Discussed with: patient, hospital staff Subjective Interval Events 10/31/17 Mood/Memory: Reports: anxiety, depressed feelings, emotional problems Psychiatric: Reports: hallucinations Geriatric Geriatric Last 24 Hour Vital Signs Date Time Temp Pulse Resp B/P (MAP) Pulse Ox O2 Delivery O2 Flow Rate FiO2 11/01/17 16:00 97.9 92 18 124/88 96 Room Air 11/01/17 12:00 98.2 92 20 125/76 94 Room Air 11/01/17 08:00 98.4 94 20 128/84 96 Room Air 11/01/17 04:01 98.3 99 18 127/86 95 11/01/17 00:11 98.1 104 20 131/85 94 10/31/17 20:09 98.4 110 20 127/88 95 Intake and Output 10/31/17 11/01/17 19:00 07:00 Intake Total 440 ml 360 ml Output Total 600 ml Balance -160 ml 360 ml Intake Oral 440 ml 360 ml Output Urine Total 600 ml # Voids 2 Laboratory Tests Test 11/01/17 07:45 White Blood Count 9.1 K/UL (4.8-10.8) Red Blood Count 4.43 M/UL (4.70-6.10) L Hemoglobin 13.7 G/DL (14.2-18.0) L Hematocrit 42.7 % (42.0-52.0) Mean Corpuscular Volume 96 FL (80-99) Mean Corpuscular Hemoglobin 31.0 PG (27.0-31.0) Mean Corpuscular Hemoglobin Concent 32.2 G/DL (32.0-36.0) Red Cell Distribution Width 12.7 % (11.6-14.8) Platelet Count 253 K/UL (150-450) Mean Platelet Volume 6.5 FL (6.5-10.1) Neutrophils (%) (Auto) 47.8 % (45.0-75.0) Lymphocytes (%) (Auto) 41.3 % (20.0-45.0) Monocytes (%) (Auto) 8.8 % (1.0-10.0) Eosinophils (%) (Auto) 1.3 % (0.0-3.0) Basophils (%) (Auto) 0.7 % (0.0-2.0) Hepatitis A Antibody Total Pending Hepatitis B Surface Antigen Pending Hepatitis B Surface Antibody Pending Hepatitis B Core Total Antibody Pending HIV (1&2) Antibody Rapid Negative (NEGATIVE) Current Medications Medications (Trade) Dose Ordered Sig/Lucie Route PRN Reason Start Time Stop Time Status Last Admin Dose Admin Acetaminophen (Tylenol) 650 mg Q4H PRN ORAL fever 10/24/17 22:45 11/23/17 22:44 Ampicillin (Ampicillin) 500 mg EVERY 6 HOURS ORAL 10/31/17 00:00 11/07/17 00:00 11/01/17 17:54 Aspirin (ASA) 81 mg DAILY ORAL 10/26/17 09:00 11/25/17 08:59 11/01/17 10:10 Chlorpromazine (Thorazine) 25 mg Q6H PRN IM Agitation 10/30/17 19:30 11/29/17 19:29 10/30/17 21:28 Haloperidol Lactate (Haldol) 5 mg Q4H PRN IM Breakthrough Agitation 10/31/17 14:30 11/30/17 14:29 Heparin Sodium (Porcine) (Heparin 5000 units/ml) 5,000 units EVERY 12 HOURS SUBQ 10/25/17 09:00 11/24/17 08:59 11/01/17 10:11 Methadone HCl (Methadone HCl) 10 mg Q6HR ORAL 10/26/17 10:30 11/02/17 10:29 11/01/17 17:56 Mirtazapine (Remeron) 7.5 mg BEDTIME PRN ORAL For Anxiety 10/26/17 14:00 11/25/17 13:59 Ondansetron HCl (Zofran) 4 mg Q6H PRN IVP Nausea & Vomiting 10/24/17 22:45 11/23/17 22:44 Phenazopyridine HCl (Pyridium) 100 mg DAILY PRN ORAL dysuria 10/24/17 22:45 11/23/17 22:44 Polyethylene Glycol (Miralax) 17 gm DAILYPRN PRN ORAL Constipation 10/24/17 22:45 11/23/17 22:44 11/01/17 00:40 Height (Feet): 5 Height (Inches): 7.00 Weight (Pounds): 165 General Appearance: no apparent distress, alert, good eye contact, poorly groomed Neurologic: alert Psychiatric Orientation: disoriented Affect: blunt Insight: poor Thought Content: auditory hallucinations Mckenna Bermudez M.D. Nov 01, 2017 18:58
[2017-11-01 20:00] VITALS: BP 143/97
[2017-11-02 04:00] VITALS: BP 132/82
[2017-11-02 09:26] VITALS: BP 142/83
[2017-11-02] MEDS: Aspirin Baby 81mg ORAL SCH (09:39)
[2017-11-02] MEDS: Heparin 5000 units/ml inj SUBQ SCH ×2 (09:40→20:03)
[2017-11-02 11:48] VITALS: BP 134/78
--- NOTE | 2017-11-02 13:39 | Pulmonology Progress Note ---
Assessment/Plan Problems: (1) Abdominal pain (2) Inguinal hernia (3) Paranoia (4) CKD (chronic kidney disease) Assessment/Plan improving, no new complains all noted all reviewed psych to see social service for placement on oral abx Subjective ROS Limited/Unobtainable: No Allergies: Uncoded Allergies: anesthesia (Allergy, Unknown, 07/04/14) Objective Last 24 Hour Vital Signs Date Time Temp Pulse Resp B/P (MAP) Pulse Ox O2 Delivery O2 Flow Rate FiO2 11/02/17 11:48 98.8 79 20 134/78 95 Room Air 11/02/17 09:26 98.1 95 20 142/83 98 Room Air 11/02/17 04:00 97.4 79 16 132/82 97 Room Air 11/01/17 20:00 98.3 118 18 143/97 98 Room Air 11/01/17 16:00 97.9 92 18 124/88 96 Room Air Intake and Output 11/01/17 11/02/17 19:00 07:00 Intake Total 720 ml 240 ml Output Total 200 ml Balance 720 ml 40 ml Intake Oral 720 ml 240 ml Output Urine Total 200 ml # Voids 3 Objective General Appearance: WD/WN HEENT: normocephalic, anicteric Respiratory/Chest: chest wall non-tender, normal breath sounds Breasts: no masses Cardiovascular: regular rhythm Genitourinary: normal external genitalia Extremities: no clubbing Skin: no rash, no lesions Current Medications Medications (Trade) Dose Ordered Sig/Lucie Route PRN Reason Start Time Stop Time Status Last Admin Dose Admin Acetaminophen (Tylenol) 650 mg Q4H PRN ORAL fever 10/24/17 22:45 11/23/17 22:44 Ampicillin (Ampicillin) 500 mg EVERY 6 HOURS ORAL 10/31/17 00:00 11/07/17 00:00 11/02/17 12:08 Aspirin (ASA) 81 mg DAILY ORAL 10/26/17 09:00 11/25/17 08:59 11/02/17 09:39 Chlorpromazine (Thorazine) 25 mg Q6H PRN IM Agitation 10/30/17 19:30 11/29/17 19:29 11/01/17 19:57 Haloperidol Lactate (Haldol) 5 mg Q4H PRN IM Breakthrough Agitation 10/31/17 14:30 11/30/17 14:29 Heparin Sodium (Porcine) (Heparin 5000 units/ml) 5,000 units EVERY 12 HOURS SUBQ 10/25/17 09:00 11/24/17 08:59 11/02/17 09:40 Mirtazapine (Remeron) 7.5 mg BEDTIME PRN ORAL For Anxiety 10/26/17 14:00 11/25/17 13:59 Ondansetron HCl (Zofran) 4 mg Q6H PRN IVP Nausea & Vomiting 10/24/17 22:45 11/23/17 22:44 Phenazopyridine HCl (Pyridium) 100 mg DAILY PRN ORAL dysuria 10/24/17 22:45 11/23/17 22:44 Polyethylene Glycol (Miralax) 17 gm DAILYPRN PRN ORAL Constipation 10/24/17 22:45 11/23/17 22:44 11/01/17 00:40 TIARA MIRANDA Nov 02, 2017 13:38
[2017-11-02 16:27] VITALS: BP 131/84
[2017-11-02 20:10] VITALS: BP 146/98
[2017-11-03 04:00] VITALS: BP 138/88
[2017-11-03] MEDS: Miralax 17gm pkt ORAL PRN (05:24)
[2017-11-03 08:00] VITALS: BP 138/87
[2017-11-03] MEDS: Heparin 5000 units/ml inj SUBQ SCH ×2 (09:00→21:00)
[2017-11-03] MEDS: Aspirin Baby 81mg ORAL SCH (10:08)
--- NOTE | 2017-11-03 10:39 | Infectious Diseases Prog Note ---
Assessment/Plan Assessment/Plan ASSESSMENT: The patient is a 67-year-old male with: Status post leukocytosis due to acute stress.; Gastroenteritis, resolved. Pyuria/bacteriuria -u/a WBC TNTC- ucx >100k E. fecalis (S Vanco, amp), 30-40k mixed gram positive growth-. History of abnormal liver function tests and hepatitis C positive. -hEp C VL 42K - History of IV drug abuse. Hep C +ve ( PCR and AB ) Hep A Imm Hep B Ab neg -. History of recurrent urinary tract infection. -. History of osteomyelitis of the second left toe and distal phalanx. -History of prostate cancer. -HAMZAH, improving -. History of renal stone and CKD. PLAN: Continue PO ampicillin # for possible UTI Monitor CBC.; cbc am, Monitor BMP. aspiration precautions Hep B vaccine as out pt , pharm does not provide it for pt (as per pharmD ), pt was advised to seek immunization as out pt Subjective Constitutional: Denies: no symptoms, fever, chills, fatigue, anorexia, drenching sweats, other Allergies: Uncoded Allergies: anesthesia (Allergy, Unknown, 07/04/14) Subjective afebrile Objective Vital Signs Last 24 Hour Vital Signs Date Time Temp Pulse Resp B/P (MAP) Pulse Ox O2 Delivery O2 Flow Rate FiO2 11/03/17 04:00 97.7 83 18 138/88 94 Room Air 11/02/17 20:10 98.9 113 18 146/98 100 Room Air 11/02/17 16:27 99.0 103 20 131/84 93 Room Air 11/02/17 11:48 98.8 79 20 134/78 95 Room Air Height (Feet): 5 Height (Inches): 7.00 Weight (Pounds): 165 HEENT: anicteric Respiratory/Chest: normal breath sounds Cardiovascular: regular rhythm Abdomen: no mass Current Medications Medications (Trade) Dose Ordered Sig/Lucie Route PRN Reason Start Time Stop Time Status Last Admin Dose Admin Acetaminophen (Tylenol) 650 mg Q4H PRN ORAL fever 10/24/17 22:45 11/23/17 22:44 Ampicillin (Ampicillin) 500 mg EVERY 6 HOURS ORAL 10/31/17 00:00 11/07/17 00:00 11/03/17 05:24 Aspirin (ASA) 81 mg DAILY ORAL 10/26/17 09:00 11/25/17 08:59 11/03/17 10:08 Chlorpromazine (Thorazine) 25 mg Q6H PRN IM Agitation 10/30/17 19:30 11/29/17 19:29 11/03/17 10:08 Haloperidol Lactate (Haldol) 5 mg Q4H PRN IM Breakthrough Agitation 10/31/17 14:30 11/30/17 14:29 Heparin Sodium (Porcine) (Heparin 5000 units/ml) 5,000 units EVERY 12 HOURS SUBQ 10/25/17 09:00 11/24/17 08:59 11/02/17 20:03 Mirtazapine (Remeron) 7.5 mg BEDTIME PRN ORAL For Anxiety 10/26/17 14:00 11/25/17 13:59 Ondansetron HCl (Zofran) 4 mg Q6H PRN IVP Nausea & Vomiting 10/24/17 22:45 11/23/17 22:44 Phenazopyridine HCl (Pyridium) 100 mg DAILY PRN ORAL dysuria 10/24/17 22:45 11/23/17 22:44 Polyethylene Glycol (Miralax) 17 gm DAILYPRN PRN ORAL Constipation 10/24/17 22:45 11/23/17 22:44 11/03/17 05:24 EDMOND ADEN M.D. Nov 03, 2017 10:39
[2017-11-03 12:00] VITALS: BP 134/79
--- NOTE | 2017-11-03 13:14 | Pulmonology Progress Note ---
Assessment/Plan Problems: (1) Abdominal pain (2) Inguinal hernia (3) Paranoia (4) CKD (chronic kidney disease) Assessment/Plan improving, no new complains all noted all reviewed psych to see social service for placement on oral abx Subjective ROS Limited/Unobtainable: No Constitutional: Reports: no symptoms HEENT: Repors: no symptoms Allergies: Uncoded Allergies: anesthesia (Allergy, Unknown, 07/04/14) Objective Last 24 Hour Vital Signs Date Time Temp Pulse Resp B/P (MAP) Pulse Ox O2 Delivery O2 Flow Rate FiO2 11/03/17 12:00 97.0 94 18 134/79 97 11/03/17 08:00 98.4 103 19 138/87 96 11/03/17 04:00 97.7 83 18 138/88 94 Room Air 11/02/17 20:10 98.9 113 18 146/98 100 Room Air 11/02/17 16:27 99.0 103 20 131/84 93 Room Air Intake and Output 11/02/17 11/03/17 19:00 07:00 Intake Total 780 ml 240 ml Output Total 200 ml Balance 780 ml 40 ml Intake Oral 780 ml 240 ml Output Urine Total 200 ml # Voids 3 Objective General Appearance: WD/WN HEENT: normocephalic, anicteric Respiratory/Chest: chest wall non-tender, normal breath sounds Breasts: no masses Cardiovascular: regular rhythm Genitourinary: normal external genitalia Extremities: no clubbing Skin: no rash, no lesions Current Medications Medications (Trade) Dose Ordered Sig/Lucie Route PRN Reason Start Time Stop Time Status Last Admin Dose Admin Acetaminophen (Tylenol) 650 mg Q4H PRN ORAL fever 10/24/17 22:45 11/23/17 22:44 Ampicillin (Ampicillin) 500 mg EVERY 6 HOURS ORAL 10/31/17 00:00 11/07/17 00:00 11/03/17 05:24 Aspirin (ASA) 81 mg DAILY ORAL 10/26/17 09:00 11/25/17 08:59 11/03/17 10:08 Chlorpromazine (Thorazine) 25 mg Q6H PRN IM Agitation 10/30/17 19:30 11/29/17 19:29 11/03/17 10:08 Haloperidol Lactate (Haldol) 5 mg Q4H PRN IM Breakthrough Agitation 10/31/17 14:30 11/30/17 14:29 Heparin Sodium (Porcine) (Heparin 5000 units/ml) 5,000 units EVERY 12 HOURS SUBQ 10/25/17 09:00 11/24/17 08:59 11/02/17 20:03 Mirtazapine (Remeron) 7.5 mg BEDTIME PRN ORAL For Anxiety 10/26/17 14:00 11/25/17 13:59 Ondansetron HCl (Zofran) 4 mg Q6H PRN IVP Nausea & Vomiting 10/24/17 22:45 11/23/17 22:44 Phenazopyridine HCl (Pyridium) 100 mg DAILY PRN ORAL dysuria 10/24/17 22:45 11/23/17 22:44 Polyethylene Glycol (Miralax) 17 gm DAILYPRN PRN ORAL Constipation 10/24/17 22:45 11/23/17 22:44 11/03/17 05:24 TIARA MIRANDA Nov 03, 2017 13:14
[2017-11-03 16:00] VITALS: BP 113/61
[2017-11-03 20:00] VITALS: BP 140/90
--- NOTE | 2017-11-03 23:46 | General Progress Note ---
Assessment/Plan Status: stable Assessment/Plan encephalopathy agitation -cont current meds Subjective Date patient seen: Nov 03, 2017 Neurologic/Psychiatric: Reports: anxiety, depressed, emotional problems Allergies: Uncoded Allergies: anesthesia (Allergy, Unknown, 07/04/14) Subjective agitation confused Objective Last 24 Hour Vital Signs Date Time Temp Pulse Resp B/P (MAP) Pulse Ox O2 Delivery O2 Flow Rate FiO2 11/03/17 20:00 98.3 86 20 140/90 95 11/03/17 16:25 98 Room Air 11/03/17 16:00 97.2 71 17 113/61 97 11/03/17 12:00 97.0 94 18 134/79 97 11/03/17 08:00 98.4 103 19 138/87 96 11/03/17 04:00 97.7 83 18 138/88 94 Room Air Intake and Output 11/02/17 11/03/17 19:00 07:00 Intake Total 780 ml 240 ml Output Total 200 ml Balance 780 ml 40 ml Intake Oral 780 ml 240 ml Output Urine Total 200 ml # Voids 3 Height (Feet): 5 Height (Inches): 7.00 Weight (Pounds): 165 General Appearance: no apparent distress, alert, confused, agitated Mckenna Bermudez M.D. Nov 03, 2017 23:46
[2017-11-04] VITALS: BP 134/86
[2017-11-04 04:00] VITALS: BP 131/84
[2017-11-04] MEDS: Miralax 17gm pkt ORAL PRN (06:30)
[2017-11-04 08:00] VITALS: BP 131/90
[2017-11-04] MEDS: Aspirin Baby 81mg ORAL SCH (08:33)
[2017-11-04] MEDS: Heparin 5000 units/ml inj SUBQ SCH ×2 (08:36→21:25)
--- NOTE | 2017-11-04 11:35 | Infectious Diseases Prog Note ---
Assessment/Plan Assessment/Plan ASSESSMENT: The patient is a 67-year-old male with: Status post leukocytosis due to acute stress.; Gastroenteritis, resolved. Pyuria/bacteriuria -u/a WBC TNTC- ucx >100k E. fecalis (S Vanco, amp), 30-40k mixed gram positive growth-. History of abnormal liver function tests and hepatitis C positive. -hEp C VL 42K - History of IV drug abuse. Hep C +ve ( PCR and AB ) Hep A Imm Hep B Ab neg -. History of recurrent urinary tract infection. -. History of osteomyelitis of the second left toe and distal phalanx. -History of prostate cancer. -HAMZAH, improving -. History of renal stone and CKD. PLAN: Continue PO ampicillin # for possible UTI Monitor CBC.; cbc am, Monitor BMP. aspiration precautions Hep B vaccine as out pt , pharm does not provide it for pt (as per pharmD ), pt was advised to seek immunization as out pt Subjective Constitutional: Denies: no symptoms, fever, chills, fatigue, anorexia, drenching sweats, other Allergies: Uncoded Allergies: anesthesia (Allergy, Unknown, 07/04/14) Subjective afebrile Objective Vital Signs Last 24 Hour Vital Signs Date Time Temp Pulse Resp B/P (MAP) Pulse Ox O2 Delivery O2 Flow Rate FiO2 11/04/17 08:00 97.2 95 19 131/90 95 Room Air 11/04/17 04:20 Room Air 11/04/17 04:00 97.9 78 20 131/84 96 11/04/17 00:10 Room Air 11/04/17 00:00 98.0 103 20 134/86 96 11/03/17 21:45 Room Air 11/03/17 20:00 98.3 86 20 140/90 95 11/03/17 16:25 98 Room Air 11/03/17 16:00 97.2 71 17 113/61 97 11/03/17 12:00 97.0 94 18 134/79 97 Height (Feet): 5 Height (Inches): 7.00 Weight (Pounds): 165 HEENT: mucous membranes moist Respiratory/Chest: no accessory muscle use Cardiovascular: regular rhythm Abdomen: soft, non tender Current Medications Medications (Trade) Dose Ordered Sig/Lucie Route PRN Reason Start Time Stop Time Status Last Admin Dose Admin Acetaminophen (Tylenol) 650 mg Q4H PRN ORAL fever 10/24/17 22:45 11/23/17 22:44 Ampicillin (Ampicillin) 500 mg EVERY 6 HOURS ORAL 10/31/17 00:00 11/07/17 00:00 11/04/17 11:25 Aspirin (ASA) 81 mg DAILY ORAL 10/26/17 09:00 11/25/17 08:59 11/04/17 08:33 Chlorpromazine (Thorazine) 25 mg Q6H PRN IM Agitation 10/30/17 19:30 11/29/17 19:29 11/03/17 10:08 Haloperidol Lactate (Haldol) 5 mg Q4H PRN IM Breakthrough Agitation 10/31/17 14:30 11/30/17 14:29 Heparin Sodium (Porcine) (Heparin 5000 units/ml) 5,000 units EVERY 12 HOURS SUBQ 10/25/17 09:00 11/24/17 08:59 11/04/17 08:36 Mirtazapine (Remeron) 7.5 mg BEDTIME PRN ORAL For Anxiety 10/26/17 14:00 11/25/17 13:59 Ondansetron HCl (Zofran) 4 mg Q6H PRN IVP Nausea & Vomiting 10/24/17 22:45 11/23/17 22:44 Phenazopyridine HCl (Pyridium) 100 mg DAILY PRN ORAL dysuria 10/24/17 22:45 11/23/17 22:44 Polyethylene Glycol (Miralax) 17 gm DAILYPRN PRN ORAL Constipation 10/24/17 22:45 11/23/17 22:44 11/04/17 06:30 EDMOND ADEN M.D. Nov 04, 2017 11:34
[2017-11-04 12:00] VITALS: BP 132/84
[2017-11-04 16:00] VITALS: BP 130/76
--- NOTE | 2017-11-04 18:57 | Pulmonology Progress Note ---
Assessment/Plan Problems: (1) Abdominal pain (2) Inguinal hernia (3) Paranoia (4) CKD (chronic kidney disease) Assessment/Plan improving, no new complains all noted all reviewed psych to see social service for placement on oral abx Subjective ROS Limited/Unobtainable: No Interval Events: no new complains Allergies: Uncoded Allergies: anesthesia (Allergy, Unknown, 07/04/14) Objective Last 24 Hour Vital Signs Date Time Temp Pulse Resp B/P (MAP) Pulse Ox O2 Delivery O2 Flow Rate FiO2 11/04/17 16:00 97.1 82 19 130/76 96 Room Air 11/04/17 12:00 97.4 89 19 132/84 96 Room Air 11/04/17 08:00 97.2 95 19 131/90 95 Room Air 11/04/17 04:20 Room Air 11/04/17 04:00 97.9 78 20 131/84 96 11/04/17 00:10 Room Air 11/04/17 00:00 98.0 103 20 134/86 96 11/03/17 21:45 Room Air 11/03/17 20:00 98.3 86 20 140/90 95 Intake and Output 11/03/17 11/04/17 19:00 07:00 Intake Total 550 ml 480 ml Balance 550 ml 480 ml Intake Oral 550 ml 480 ml # Voids 2 1 Objective General Appearance: WD/WN HEENT: normocephalic, anicteric Respiratory/Chest: chest wall non-tender, normal breath sounds Breasts: no masses Cardiovascular: regular rhythm Genitourinary: normal external genitalia Extremities: no clubbing Skin: no rash, no lesions Current Medications Medications (Trade) Dose Ordered Sig/Lucie Route PRN Reason Start Time Stop Time Status Last Admin Dose Admin Acetaminophen (Tylenol) 650 mg Q4H PRN ORAL fever 10/24/17 22:45 11/23/17 22:44 Ampicillin (Ampicillin) 500 mg EVERY 6 HOURS ORAL 10/31/17 00:00 11/07/17 00:00 11/04/17 16:21 Aspirin (ASA) 81 mg DAILY ORAL 10/26/17 09:00 11/25/17 08:59 11/04/17 08:33 Chlorpromazine (Thorazine) 25 mg Q6H PRN IM Agitation 10/30/17 19:30 11/29/17 19:29 11/03/17 10:08 Haloperidol Lactate (Haldol) 5 mg Q4H PRN IM Breakthrough Agitation 10/31/17 14:30 11/30/17 14:29 Heparin Sodium (Porcine) (Heparin 5000 units/ml) 5,000 units EVERY 12 HOURS SUBQ 10/25/17 09:00 11/24/17 08:59 11/04/17 08:36 Mirtazapine (Remeron) 7.5 mg BEDTIME PRN ORAL For Anxiety 10/26/17 14:00 11/25/17 13:59 Ondansetron HCl (Zofran) 4 mg Q6H PRN IVP Nausea & Vomiting 10/24/17 22:45 11/23/17 22:44 Phenazopyridine HCl (Pyridium) 100 mg DAILY PRN ORAL dysuria 10/24/17 22:45 11/23/17 22:44 Polyethylene Glycol (Miralax) 17 gm DAILYPRN PRN ORAL Constipation 10/24/17 22:45 11/23/17 22:44 11/04/17 06:30 TIARA MIRANDA Nov 04, 2017 18:56
[2017-11-04 20:00] VITALS: BP 126/89
--- NOTE | 2017-11-04 23:15 | Progress Note ---
DATE: 11/04/2017 SUBJECTIVE: The patient is confused, is sitting in bed, one-to-one, is able to feed himself, is having poor cognition, and is agitated and attempts to come out of bed. MENTAL STATUS EXAMINATION: The patient is confused and disoriented. Mood is neutral. Affect is flat, congruent with mood. Thought process is disorganized. Thought content, no suicidal or homicidal ideations. Cognition is impaired. ASSESSMENT: 1. Encephalopathy. 2. Dementia. PLAN: We will continue the current medication, one-to-one. we will continue follow and readjust the medications. Mckenna Bermudez M.D. DR: SAM JOB#: [id number] CC:
[2017-11-05] VITALS: BP 127/87
[2017-11-05 04:00] VITALS: BP 138/88
[2017-11-05 08:00] VITALS: BP 145/88
[2017-11-05] MEDS: Aspirin Baby 81mg ORAL SCH (08:23)
[2017-11-05] MEDS: Heparin 5000 units/ml inj SUBQ SCH ×2 (08:25→20:42)
[2017-11-05 12:00] VITALS: BP 149/94
--- NOTE | 2017-11-05 12:00 | Infectious Diseases Prog Note ---
Assessment/Plan Assessment/Plan ASSESSMENT: The patient is a 67-year-old male with: Status post leukocytosis due to acute stres Gastroenteritis, resolved. Pyuria/bacteriuria -u/a WBC TNTC- ucx >100k E. fecalis (S Vanco, amp), 30-40k mixed gram positive growth-. History of abnormal liver function tests and hepatitis C positive. -hEp C VL 42K - History of IV drug abuse. Hep C +ve ( PCR and AB ) Hep A Imm Hep B Ab neg HIV Neg -. History of recurrent urinary tract infection. -. History of osteomyelitis of the second left toe and distal phalanx. -History of prostate cancer. -HAMZAH, improving -. History of renal stone and CKD. PLAN: Continue PO ampicillin # for possible UTI Monitor CBC.; cbc am, Monitor BMP. aspiration precautions Hep B vaccine as out pt , pharm does not provide it for pt (as per pharmD ), pt was advised to seek immunization as out pt Hpe C treatment as out pt Subjective Allergies: Uncoded Allergies: anesthesia (Allergy, Unknown, 07/04/14) Subjective afebrile Objective Vital Signs Last 24 Hour Vital Signs Date Time Temp Pulse Resp B/P (MAP) Pulse Ox O2 Delivery O2 Flow Rate FiO2 11/05/17 08:00 97.4 80 18 145/88 98 Room Air 11/05/17 04:15 Room Air 11/05/17 04:00 97.9 86 18 138/88 97 11/05/17 00:42 Room Air 11/05/17 00:00 98.4 91 18 127/87 98 11/04/17 21:25 Room Air 11/04/17 20:00 98.4 91 18 126/89 99 11/04/17 16:00 97.1 82 19 130/76 96 Room Air 11/04/17 12:00 97.4 89 19 132/84 96 Room Air Height (Feet): 5 Height (Inches): 7.00 Weight (Pounds): 165 Respiratory/Chest: no respiratory distress Cardiovascular: no gallop/murmur Abdomen: no mass Current Medications Medications (Trade) Dose Ordered Sig/Lucie Route PRN Reason Start Time Stop Time Status Last Admin Dose Admin Acetaminophen (Tylenol) 650 mg Q4H PRN ORAL fever 10/24/17 22:45 11/23/17 22:44 Ampicillin (Ampicillin) 500 mg EVERY 6 HOURS ORAL 10/31/17 00:00 11/07/17 00:00 11/05/17 11:52 Aspirin (ASA) 81 mg DAILY ORAL 10/26/17 09:00 11/25/17 08:59 11/05/17 08:23 Chlorpromazine (Thorazine) 25 mg Q6H PRN IM Agitation 10/30/17 19:30 11/29/17 19:29 11/03/17 10:08 Haloperidol Lactate (Haldol) 5 mg Q4H PRN IM Breakthrough Agitation 10/31/17 14:30 11/30/17 14:29 Heparin Sodium (Porcine) (Heparin 5000 units/ml) 5,000 units EVERY 12 HOURS SUBQ 10/25/17 09:00 11/24/17 08:59 11/05/17 08:25 Mirtazapine (Remeron) 7.5 mg BEDTIME PRN ORAL For Anxiety 10/26/17 14:00 11/25/17 13:59 Ondansetron HCl (Zofran) 4 mg Q6H PRN IVP Nausea & Vomiting 10/24/17 22:45 11/23/17 22:44 Phenazopyridine HCl (Pyridium) 100 mg DAILY PRN ORAL dysuria 10/24/17 22:45 11/23/17 22:44 Polyethylene Glycol (Miralax) 17 gm DAILYPRN PRN ORAL Constipation 10/24/17 22:45 11/23/17 22:44 11/04/17 06:30 EDMOND ADEN M.D. Nov 05, 2017 12:00
[2017-11-05] MEDS ORDERED: D5 1/2NS 1000ml IV ONE (14:13)
[2017-11-05 16:00] VITALS: BP 132/89
--- NOTE | 2017-11-05 16:00 | Pulmonology Progress Note ---
Assessment/Plan Problems: (1) Abdominal pain (2) Inguinal hernia (3) Paranoia (4) CKD (chronic kidney disease) Assessment/Plan improving, no new complains all noted all reviewed psych to see social service for placement Subjective ROS Limited/Unobtainable: No Allergies: Uncoded Allergies: anesthesia (Allergy, Unknown, 07/04/14) Objective Last 24 Hour Vital Signs Date Time Temp Pulse Resp B/P (MAP) Pulse Ox O2 Delivery O2 Flow Rate FiO2 11/05/17 08:00 97.4 80 18 145/88 98 Room Air 11/05/17 04:15 Room Air 11/05/17 04:00 97.9 86 18 138/88 97 11/05/17 00:42 Room Air 11/05/17 00:00 98.4 91 18 127/87 98 11/04/17 21:25 Room Air 11/04/17 20:00 98.4 91 18 126/89 99 11/04/17 16:00 97.1 82 19 130/76 96 Room Air Intake and Output 11/04/17 11/05/17 19:00 07:00 Intake Total 420 ml 820 ml Balance 420 ml 820 ml Intake Oral 420 ml 820 ml # Voids 3 3 Objective General Appearance: WD/WN HEENT: normocephalic, anicteric Respiratory/Chest: chest wall non-tender, normal breath sounds Breasts: no masses Cardiovascular: regular rhythm Genitourinary: normal external genitalia Extremities: no clubbing Skin: no rash, no lesions Current Medications Medications (Trade) Dose Ordered Sig/Lucie Route PRN Reason Start Time Stop Time Status Last Admin Dose Admin Acetaminophen (Tylenol) 650 mg Q4H PRN ORAL fever 10/24/17 22:45 11/23/17 22:44 Ampicillin (Ampicillin) 500 mg EVERY 6 HOURS ORAL 10/31/17 00:00 11/07/17 00:00 11/05/17 11:52 Aspirin (ASA) 81 mg DAILY ORAL 10/26/17 09:00 11/25/17 08:59 11/05/17 08:23 Chlorpromazine (Thorazine) 25 mg Q6H PRN IM Agitation 10/30/17 19:30 11/29/17 19:29 11/03/17 10:08 Haloperidol Lactate (Haldol) 5 mg Q4H PRN IM Breakthrough Agitation 10/31/17 14:30 11/30/17 14:29 Heparin Sodium (Porcine) (Heparin 5000 units/ml) 5,000 units EVERY 12 HOURS SUBQ 10/25/17 09:00 11/24/17 08:59 11/05/17 08:25 Mirtazapine (Remeron) 15 mg BEDTIME ORAL 11/05/17 21:00 11/25/17 20:59 Ondansetron HCl (Zofran) 4 mg Q6H PRN IVP Nausea & Vomiting 10/24/17 22:45 11/23/17 22:44 Phenazopyridine HCl (Pyridium) 100 mg DAILY PRN ORAL dysuria 10/24/17 22:45 11/23/17 22:44 Polyethylene Glycol (Miralax) 17 gm DAILYPRN PRN ORAL Constipation 10/24/17 22:45 11/23/17 22:44 11/04/17 06:30 Quetiapine Fumarate (SEROquel) 12.5 mg EVERY 4 HOURS PRN ORAL Agitation 11/05/17 12:45 12/05/17 12:44 UNV Quetiapine Fumarate (SEROquel) 12.5 mg TID ORAL 11/05/17 13:30 12/05/17 13:29 11/05/17 13:21 TIARA MIRANDA Nov 05, 2017 16:00
[2017-11-05 20:06] VITALS: BP 104/78
--- NOTE | 2017-11-05 20:20 | General Progress Note ---
Assessment/Plan Status: not improved, unchanged Assessment/Plan encephalopathy agitation -seroquel standing and prn Subjective Date patient seen: Nov 05, 2017 Neurologic/Psychiatric: Reports: anxiety, depressed, emotional problems Allergies: Uncoded Allergies: anesthesia (Allergy, Unknown, 07/04/14) Subjective agitation confused the pt uses profanity. the pt is agitated and hostile Objective Last 24 Hour Vital Signs Date Time Temp Pulse Resp B/P (MAP) Pulse Ox O2 Delivery O2 Flow Rate FiO2 11/05/17 20:06 98.0 87 18 104/78 94 Room Air 11/05/17 16:00 97.0 74 19 132/89 99 Room Air 11/05/17 12:00 97.2 88 19 149/94 99 Room Air 11/05/17 08:00 97.4 80 18 145/88 98 Room Air 11/05/17 04:15 Room Air 11/05/17 04:00 97.9 86 18 138/88 97 11/05/17 00:42 Room Air 11/05/17 00:00 98.4 91 18 127/87 98 11/04/17 21:25 Room Air Intake and Output 11/04/17 11/05/17 19:00 07:00 Intake Total 420 ml 820 ml Balance 420 ml 820 ml Intake Oral 420 ml 820 ml # Voids 3 3 Height (Feet): 5 Height (Inches): 7.00 Weight (Pounds): 165 General Appearance: no apparent distress, alert, confused, agitated Neurologic: responsive, disoriented, depressed affect Mckenna Bermudez M.D. Nov 05, 2017 20:20
[2017-11-06] VITALS: BP 155/98
[2017-11-06 04:00] VITALS: BP 118/86
[2017-11-06 08:00] VITALS: BP 128/88
[2017-11-06] MEDS: Aspirin Baby 81mg ORAL SCH (08:39)
[2017-11-06] MEDS: Heparin 5000 units/ml inj SUBQ SCH ×2 (08:43→21:00)
[2017-11-06 12:00] VITALS: BP 125/87
--- NOTE | 2017-11-06 14:23 | Pulmonology Progress Note ---
Assessment/Plan Problems: (1) Abdominal pain (2) Inguinal hernia (3) Paranoia (4) CKD (chronic kidney disease) Assessment/Plan improving, no new complains all noted all reviewed psych to see social service for placement dc planning to an program [facility] living Subjective ROS Limited/Unobtainable: No Allergies: Uncoded Allergies: anesthesia (Allergy, Unknown, 07/04/14) Objective Last 24 Hour Vital Signs Date Time Temp Pulse Resp B/P (MAP) Pulse Ox O2 Delivery O2 Flow Rate FiO2 11/06/17 12:00 97.5 82 19 125/87 99 11/06/17 08:00 98.4 78 18 128/88 95 11/06/17 04:00 98.0 91 16 118/86 96 Room Air 11/06/17 00:00 97.7 101 16 155/98 94 Room Air 11/05/17 20:06 98.0 87 18 104/78 94 Room Air 11/05/17 16:00 97.0 74 19 132/89 99 Room Air Intake and Output 11/05/17 11/06/17 19:00 07:00 Intake Total 1400 ml 120 ml Output Total 300 ml Balance 1400 ml -180 ml Intake Oral 1400 ml 120 ml Output Urine Total 300 ml Objective General Appearance: WD/WN HEENT: normocephalic, anicteric Respiratory/Chest: chest wall non-tender, normal breath sounds Breasts: no masses Cardiovascular: regular rhythm Genitourinary: normal external genitalia Extremities: no clubbing Skin: no rash, no lesions Current Medications Medications (Trade) Dose Ordered Sig/Lucie Route PRN Reason Start Time Stop Time Status Last Admin Dose Admin Acetaminophen (Tylenol) 650 mg Q4H PRN ORAL fever 10/24/17 22:45 11/23/17 22:44 Ampicillin (Ampicillin) 500 mg EVERY 6 HOURS ORAL 10/31/17 00:00 11/12/17 23:59 11/06/17 06:28 Aspirin (ASA) 81 mg DAILY ORAL 10/26/17 09:00 11/25/17 08:59 11/06/17 08:39 Chlorpromazine (Thorazine) 25 mg Q6H PRN IM Agitation 10/30/17 19:30 11/29/17 19:29 11/05/17 18:13 Haloperidol Lactate (Haldol) 5 mg Q4H PRN IM Breakthrough Agitation 10/31/17 14:30 11/30/17 14:29 Heparin Sodium (Porcine) (Heparin 5000 units/ml) 5,000 units EVERY 12 HOURS SUBQ 10/25/17 09:00 11/24/17 08:59 11/06/17 08:43 Mirtazapine (Remeron) 15 mg BEDTIME ORAL 11/05/17 21:00 11/25/17 20:59 11/05/17 20:41 Ondansetron HCl (Zofran) 4 mg Q6H PRN IVP Nausea & Vomiting 10/24/17 22:45 11/23/17 22:44 Phenazopyridine HCl (Pyridium) 100 mg DAILY PRN ORAL dysuria 10/24/17 22:45 11/23/17 22:44 Polyethylene Glycol (Miralax) 17 gm DAILYPRN PRN ORAL Constipation 10/24/17 22:45 11/23/17 22:44 11/04/17 06:30 Quetiapine Fumarate (SEROquel) 12.5 mg Q4H PRN ORAL Unrelieved Agitation 11/05/17 12:45 12/05/17 12:44 Quetiapine Fumarate (SEROquel) 12.5 mg TID ORAL 11/05/17 13:30 12/05/17 13:29 11/06/17 08:39 TIARA MIRANDA Nov 06, 2017 14:23
[2017-11-06 16:00] VITALS: BP 127/84
[2017-11-06] MEDS ORDERED: AMPICILLIN250 MG ORAL (16:20)
[2017-11-06] MEDS ORDERED: BAYER CHEWABLE81 MG PO (16:20)
[2017-11-06] MEDS ORDERED: HALOPERIDOL1 MG ORAL (16:21)
[2017-11-06] MEDS ORDERED: MIRTAZAPINE15 MG ORAL (16:22)
[2017-11-06] MEDS ORDERED: SEROQUEL50 MG ORAL (16:23)
[2017-11-06] MEDS ORDERED: PHENAZOPYRIDIN100 MG ORAL (16:27)
[2017-11-06] MEDS ORDERED: THORAZINE25 MG PO (16:30)
--- NOTE | 2017-11-06 21:05 | Infectious Diseases Prog Note ---
Assessment/Plan Assessment/Plan ASSESSMENT: The patient is a 67-year-old male with: Status post leukocytosis due to acute stress Gastroenteritis, resolved. Pyuria/bacteriuria -u/a WBC TNTC- ucx >100k E. fecalis (S Vanco, amp), 30-40k mixed gram positive growth-. History of abnormal liver function tests and hepatitis C positive. -hEp C VL 42K - History of IV drug abuse. Hep C +ve ( PCR and AB ) Hep A Imm Hep B Ab neg HIV Neg -. History of recurrent urinary tract infection. -. History of osteomyelitis of the second left toe and distal phalanx. -History of prostate cancer. -HAMZAH, improving -. History of renal stone and CKD. PLAN: Continue PO ampicillin # 06/02 for possible UTI Monitor CBC.; cbc am, Monitor BMP. aspiration precautions Hep B vaccine as out pt , pharm does not provide it for pt (as per pharmD ), pt was advised to seek immunization as out pt Hep C treatment as out pt Subjective Constitutional: Denies: no symptoms, fever, chills, fatigue, anorexia, drenching sweats, other Allergies: Uncoded Allergies: anesthesia (Allergy, Unknown, 07/04/14) Subjective afebrile Objective Vital Signs Last 24 Hour Vital Signs Date Time Temp Pulse Resp B/P (MAP) Pulse Ox O2 Delivery O2 Flow Rate FiO2 11/06/17 16:00 98.1 92 18 127/84 96 11/06/17 12:00 97.5 82 19 125/87 99 11/06/17 08:00 98.4 78 18 128/88 95 11/06/17 04:00 98.0 91 16 118/86 96 Room Air 11/06/17 00:00 97.7 101 16 155/98 94 Room Air Height (Feet): 5 Height (Inches): 7.00 Weight (Pounds): 165 HEENT: anicteric Respiratory/Chest: lungs clear Cardiovascular: normal peripheral pulses Abdomen: no organomegaly Current Medications Medications (Trade) Dose Ordered Sig/Lucie Route PRN Reason Start Time Stop Time Status Last Admin Dose Admin Acetaminophen (Tylenol) 650 mg Q4H PRN ORAL fever 10/24/17 22:45 11/23/17 22:44 Ampicillin (Ampicillin) 500 mg EVERY 6 HOURS ORAL 10/31/17 00:00 11/12/17 23:59 11/06/17 18:08 Aspirin (ASA) 81 mg DAILY ORAL 10/26/17 09:00 11/25/17 08:59 11/06/17 08:39 Chlorpromazine (Thorazine) 25 mg Q6H PRN IM Agitation 10/30/17 19:30 11/29/17 19:29 11/05/17 18:13 Haloperidol Lactate (Haldol) 5 mg Q4H PRN IM Breakthrough Agitation 10/31/17 14:30 11/30/17 14:29 Heparin Sodium (Porcine) (Heparin 5000 units/ml) 5,000 units EVERY 12 HOURS SUBQ 10/25/17 09:00 11/24/17 08:59 11/06/17 08:43 Mirtazapine (Remeron) 15 mg BEDTIME ORAL 11/05/17 21:00 11/25/17 20:59 11/05/17 20:41 Ondansetron HCl (Zofran) 4 mg Q6H PRN IVP Nausea & Vomiting 10/24/17 22:45 11/23/17 22:44 Phenazopyridine HCl (Pyridium) 100 mg DAILY PRN ORAL dysuria 10/24/17 22:45 11/23/17 22:44 Polyethylene Glycol (Miralax) 17 gm DAILYPRN PRN ORAL Constipation 10/24/17 22:45 11/23/17 22:44 11/04/17 06:30 Quetiapine Fumarate (SEROquel) 12.5 mg Q4H PRN ORAL Unrelieved Agitation 11/05/17 12:45 12/05/17 12:44 Quetiapine Fumarate (SEROquel) 12.5 mg TID ORAL 11/05/17 13:30 12/05/17 13:29 11/06/17 18:09 EDMOND ADEN M.D. Nov 06, 2017 21:05
[2017-11-06 23:00] VITALS: BP 109/83
--- NOTE | 2017-11-07 11:07 | General Progress Note ---
Assessment/Plan Status: stable, progressing Assessment/Plan encephalopathy agitation -seroquel standing and prn Subjective Date patient seen: Nov 06, 2017 Neurologic/Psychiatric: Reports: anxiety, depressed, emotional problems Allergies: Uncoded Allergies: anesthesia (Allergy, Unknown, 07/04/14) Subjective agitation confused the pt uses profanity. the pt is agitated and hostile Objective Last 24 Hour Vital Signs Date Time Temp Pulse Resp B/P (MAP) Pulse Ox O2 Delivery O2 Flow Rate FiO2 11/06/17 23:00 97.5 98 19 109/83 99 11/06/17 16:00 98.1 92 18 127/84 96 11/06/17 12:00 97.5 82 19 125/87 99 Intake and Output 11/06/17 11/07/17 19:00 07:00 Intake Total 830 ml 120 ml Output Total 600 ml Balance 230 ml 120 ml Intake Oral 830 ml 120 ml Output Urine Total 600 ml # Voids 5 1 Height (Feet): 5 Height (Inches): 7.00 Weight (Pounds): 165 General Appearance: no apparent distress, alert, confused, agitated Neurologic: alert, responsive, depressed affect Mckenna Bermudez M.D. Nov 07, 2017 11:07
--- NOTE | 2017-11-07 15:34 | Discharge Summary ---
Discharge Summary Hospital Course Date of Admission Oct 24, 2017 at 20:12 Date of Discharge Nov 06, 2017 at 23:00 Admitting Diagnosis uti, leukocytosis HPI Arcadio Roth is a 67 year old male who was admitted on Oct 24, 2017 at 20:12 for Urinary Tract Infection, Leukocytosis Hospital Course [id number] Discharge Discharge Disposition Patient was discharged to board and care Discharge Diagnoses: Yamini Vasquez NP Nov 07, 2017 15:34
--- NOTE | 2017-11-08 04:30 | Discharge Summary 2 SIG ---
DATE OF ADMISSION: 10/24/2017 DATE OF DISCHARGE: 11/06/2017 CONSULTANTS: 1. Mckenna Bermudez M.D. 2. Jose Bello M.D. BRIEF HOSPITAL COURSE: The patient is a 67-year-old male with history of hypertension, CVA, CKD, Alzheimer's dementia, prostate cancer, status post osteomyelitis on the left foot, history of recurrent urinary tract infection, and methadone dependency presented to ED complaining of abdominal pain and generalized weakness. The patient was unable to provide much information due to underlying dementia. Family denied nausea, vomiting, or diarrhea. Workup at ED showed leukocytosis and urine with 20 to 30 WBCs, 10 to 15 RBCs, and 2+ leukocyte esterase. He was admitted for evaluation of abdominal pain and possible gastroenteritis with evidence of pyuria and possible urinary tract infection. He was given bowel regimen. He was followed by infectious diseases specialist. He was initially observed off antibiotic treatment, pending culture results. Liver function tests are normal. Urine showed growth of mixed gram-positive organisms. The patient has history of IV drug abuse and has positive hepatitis C. He was given ampicillin for possible urine infection and recommended hepatitis C treatment as outpatient. He would also need hepatitis B vaccine as he is hep B antibody negative. Gastroenteritis resolved. He was tolerating diet. He was seen by Dr. Bermudez as the patient has waxing and waning of consciousness and was agitated and not engaged. He was given Remeron 7.5 at bedtime. He continued to be confused, agitated, and hostile. Seroquel was added to his regimen 12.5 mg and every 4 hours as needed. He was given PT mobility and was referred to multiple nursing homes. He was eventually discharged to [facility] pending acceptance from long term. FINAL DIAGNOSES: 1. Leukocytosis due to acute stress. 2. Acute gastroenteritis resolved. 3. Pyuria/bacteriuria. 4. Hepatitis C infection. 5. Recurrent urinary tract infection. 6. History of osteomyelitis on the second left toe and distal phalanx. 7. Acute kidney injury. 8. History of prostate CA. 9. Chronic kidney disease. 10. Renal stone. 11. Encephalopathy. 12. Agitation. 13. Paranoia. 14. Inguinal hernia. DISPOSITION: The patient was discharged to [facility]. DISCHARGE MEDICATIONS: Please refer to medication list. German Mooney M.D. I have been assigned to dictate discharge summary on this account and I was not involved in the patient's management. Yamini Vasquez N.P. DR: STEFAN JOB#: [id number] CC: HERLINDA
== END 2017-11-06 23:00 | DRG 463 ==
LOC: EMR 19:52 → 3E 20:12 → EDBEDREQ 20:44 → 3E 21:58
DX: N39.0 Urinary tract infection, site not specified (principal); G93.40 Encephalopathy, unspecified; N17.9 Acute kidney failure, unspecified; G30.9 Alzheimer's disease, unspecified; F02.80 Dementia in other diseases classified elsewhere, unspecified severity, without behavioral disturbance, psychotic disturbance, mood disturbance, and anxiety; Z85.46 Personal history of malignant neoplasm of prostate; I12.9 Hypertensive chronic kidney disease with stage 1 through stage 4 chronic kidney disease, or unspecified chronic kidney disease; N18.9 Chronic kidney disease, unspecified; I73.9 Peripheral vascular disease, unspecified; I69.30 Unspecified sequelae of cerebral infarction; F11.20 Opioid dependence, uncomplicated; D72.829 Elevated white blood cell count, unspecified; F43.0 Acute stress reaction; K52.9 Noninfective gastroenteritis and colitis, unspecified; B19.20 Unspecified viral hepatitis C without hepatic coma; N20.0 Calculus of kidney; F23 Brief psychotic disorder; K40.90 Unilateral inguinal hernia, without obstruction or gangrene, not specified as recurrent; F19.11 Other psychoactive substance abuse, in remission; Z88.4 Allergy status to anesthetic agent
CPT/HCPCS: 36415; 71045; 80048; 80053; 80061; 81001; 81003; 82140; 83690; 85025; 86703; 86704; 86708; 87086; 87181; 87340; 87517; 87522; 94664; 99285

== ENCOUNTER 2018-01-05 14:38 | Inpatient (IN) | payer MEDICARE, OTHER ==
[~2018-01-05] VITALS: Ht 175.3 cm; Wt 81.6 kg
[~2018-01-05 14:38] MED LIST changes: +AMPICILLIN250 MG ORAL; +BAYER CHEWABLE81 MG PO; +HALOPERIDOL1 MG ORAL; +MIRTAZAPINE15 MG ORAL; +PHENAZOPYRIDIN100 MG ORAL; +SEROQUEL50 MG ORAL; +THORAZINE25 MG PO; +UNOBMED
[2018-01-05 15:00] VITALS: BP 121/76
--- NOTE | 2018-01-05 15:20 | Emergency Room Report ---
History of Present Illness General Chief Complaint: Pain Present Illness HPI 67 YO Male presents to the ED brought by who has POA. Pt. denies medical symptoms, he is agitated. Pt. with hx of moderate dementia. explains he was c/o right flank pain, and has been more upset/aggressive than usual. She also noted that he has discoloration of the skin on bilateral feet and was told to consider gangrene as pt. has hx of it in the past resulting in amputation of the left second toe. HPI and ROS are limited due to pt. mental capacity and poor cooperation. Allergies: Uncoded Allergies: anesthesia (Allergy, Unknown, 07/04/14) Patient History Past Medical History: see triage record, dementia Past Surgical History: none Pertinent Family History: none Reviewed Nursing Documentation: PMH: Agreed Nursing Documentation-PMH Hx Cardiac Problems: Yes Hx Hypertension: Yes Hx Cancer: Yes Hx Gastrointestinal Problems: No Hx Neurological Problems: Yes - DEMENTIA Hx Cerebrovascular Accident: Yes Hx Dementia: Yes Hx Alzheimer's Disease: Yes Review of Systems All Other Systems: limited Physical Exam Vital Signs Date Time Temp Pulse Resp B/P (MAP) Pulse Ox O2 Delivery O2 Flow Rate FiO2 01/05/18 14:45 97.8 86 20 121/76 100 Room Air 97.9 Sp02 EP Interpretation: reviewed, normal General Appearance: no apparent distress, alert, GCS 15, non-toxic Head: normocephalic, atraumatic Eyes: bilateral eye normal inspection, bilateral eye PERRL ENT: hearing grossly normal, normal voice Neck: full range of motion Respiratory: chest non-tender, lungs clear, normal breath sounds, speaking full sentences Cardiovascular #1: regular rate, rhythm, no edema Cardiovascular #2: 1+ dorsalis pedis (R), 1+ dorsalis pedis (L) Gastrointestinal: normal bowel sounds, non tender, soft Rectal: deferred Musculoskeletal: back normal, gait/station normal, normal range of motion, non- tender Neurologic: alert, responsive, motor strength/tone normal, sensory intact, normal gait, speech normal, grossly normal Psychiatric: other - Pt. can hold conversation, unable to answer orientation questions other than self, pt. answered location: [place], and year: 1979 then became agitated/frustrated. Skin: no rash, warm/dry, well hydrated, other - hyperpigmentation of the bilateral feet and ankles, consistent with PAD/ insufficiency- chronic. no obvious wounds, no erythema Medical Decision Making PA Attestation Dr. Barker is my supervising Physician whom patient management has been discussed with. Diagnostic Impression: Primary Impression: UTI (urinary tract infection) Qualified Codes: N30.01 - Acute cystitis with hematuria Additional Impressions: Renal insufficiency, mild Dementia Qualified Codes: F03.91 - Unspecified dementia with behavioral disturbance ER Course 67 YO Male presents to the ED brought by who has POA. Pt. denies medical symptoms, he is agitated. Pt. with hx of moderate dementia. explains he was c/o right flank pain, and has been more upset/aggressive than usual. She also noted that he has discoloration of the skin on bilateral feet and was told to consider gangrene as pt. has hx of it in the past resulting in amputation of the left second toe. HPI and ROS are limited due to pt. mental capacity and poor cooperation. Ddx considered but are not limited to Gangrene, acute appy, GE, pancreatitis, gallstone, kidney stone, pyelonephritis, UTI, obstruction just to name a few. Vital signs: are WNL, pt. is afebrile H&PE are most consistent with increased agitation, right flank pain. ORDERS: -CBC, CMP, elevated WBC: 12.9 mild anemia, elevated BUN and Cr. -Lactic Acid: 3.4 -Troponin: negative -CXR: - UA: grossly positive for UTI, nitrite positive. -CT Abdomen & Pelvis no contrast: Pending. ED INTERVENTIONS: -- 1000NS --Rocephin IV 1 gram DISPOSITION: at this time pt. will be admitted to Dr. Mooney for UTI. Dr. Mooney agreed to admit the pt. and to continue pt. care management. Labs Test 01/05/18 15:55 01/05/18 16:00 01/05/18 17:40 01/05/18 17:45 Urine Color Pale yellow Urine Appearance Slightly cloudy Urine pH 6 (4.5-8.0) Urine Specific [place] 1.010 (1.005-1.035) Urine Protein 2+ (NEGATIVE) Urine Glucose (UA) Negative (NEGATIVE) Urine Ketones Negative (NEGATIVE) Urine Occult Blood 2+ (NEGATIVE) Urine Nitrite Positive (NEGATIVE) Urine Bilirubin Negative (NEGATIVE) Urine Urobilinogen Normal MG/DL (0.0-1.0) Urine Leukocyte Esterase 3+ (NEGATIVE) Urine RBC 5-10 /HPF (0 - 0) Urine WBC 30-40 /HPF (0 - 0) Urine Squamous Epithelial Cells None /LPF (NONE/OCC) Urine Amorphous Sediment Few /LPF (NONE) Urine Bacteria Moderate /HPF (NONE) White Blood Count 12.9 K/UL (4.8-10.8) Red Blood Count 4.47 M/UL (4.70-6.10) Hemoglobin 13.8 G/DL (14.2-18.0) Hematocrit 41.2 % (42.0-52.0) Mean Corpuscular Volume 92 FL (80-99) Mean Corpuscular Hemoglobin 30.8 PG (27.0-31.0) Mean Corpuscular Hemoglobin Concent 33.4 G/DL (32.0-36.0) Red Cell Distribution Width 13.8 % (11.6-14.8) Platelet Count 323 K/UL (150-450) Mean Platelet Volume 6.2 FL (6.5-10.1) Neutrophils (%) (Auto) 48.0 % (45.0-75.0) Lymphocytes (%) (Auto) 44.1 % (20.0-45.0) Monocytes (%) (Auto) 5.8 % (1.0-10.0) Eosinophils (%) (Auto) 1.2 % (0.0-3.0) Basophils (%) (Auto) 1.0 % (0.0-2.0) Sodium Level 141 MMOL/L (136-145) Potassium Level 4.9 MMOL/L (3.5-5.1) Chloride Level 110 MMOL/L (98-107) Carbon Dioxide Level 23 MMOL/L (21-32) Anion Gap 9 mmol/L (5-15) Blood Urea Nitrogen 41 mg/dL (7-18) Creatinine 1.8 MG/DL (0.55-1.30) Estimat Glomerular Filtration Rate 45.7 mL/min (>60) Glucose Level 150 MG/DL (74-106) Lactic Acid Level 1.30 mmol/L (0.66-2.22) Calcium Level 8.6 MG/DL (8.5-10.1) Total Bilirubin 0.4 MG/DL (0.2-1.0) Aspartate Amino Transf (AST/SGOT) 24 U/L (15-37) Alanine Aminotransferase (ALT/SGPT) 22 U/L (12-78) Alkaline Phosphatase 147 U/L (46-116) Total Creatine Kinase 69 U/L (26-308) Creatine Kinase MB < 0.5 NG/ML (0.0-3.6) Creatine Kinase MB Relative Index 0.7 Total Protein 7.8 G/DL (6.4-8.2) Albumin 3.0 G/DL (3.4-5.0) Globulin 4.8 g/dL Albumin/Globulin Ratio 0.6 (1.0-2.7) Troponin I 0.000 ng/mL (0.000-0.056) EKG Diagnostic Results EP Interpretation: Dr. Barker Rate: normal - 69 Rhythm: NSR ST Segments: no acute changes ONOFRE Scribsusan Text This Interpretation was scribed by ONOFRE Dominguez. Chest X-Ray Diagnostic Results Chest X-Ray Diagnostic Results : Chest X-Ray Ordered: Yes # of Views/Limited/Complete: 1 View Indication: Other - admit with elevated wbc's r/o pneumonia EP Interpretation: Yes PA Xray: Interpretation reviewed, by supervising MD, and agrees with findings. Interpretation: no consolidation, no effusion, no pneumothorax, no acute cardiopulmonary disease Impression: No acute disease Electronically Signed by: Cindi Dominguez PA-C Other X-Ray Diagnostic Results Other X-Ray Diagnostic Results #1: X-Ray ordered: Right foot # of Views/Limited Vs Complete: 3 View Indication: Pain EP Interpretation: Yes ONOFRE Xray: Interpretation reviewed, by supervising MD, and agrees with findings. Interpretation: no dislocation, no soft tissue swelling, no fractures Impression: No acute disease Electronically Signed by: Cindi Dominguez PA-C Other X-Ray Diagnostic Results #2: X-Ray ordered: Left foot # of Views/Limited Vs Complete: 3 View Indication: Pain EP Interpretation: Yes ONOFRE Xray: Interpretation reviewed, by supervising , and agrees with findings. Interpretation: no dislocation, no soft tissue swelling, no fractures Impression: No acute disease Electronically Signed by: Cindi Dominguez PA-C CT/MRI/US Diagnostic Results CT/MRI/US Diagnostic Results : Imaging Test Ordered: CT Abdoment & Pelvis Impression Pending at time of Pt. sign out to on-coming ED physician. Last Vital Signs Date Time Temp Pulse Resp B/P (MAP) Pulse Ox O2 Delivery O2 Flow Rate FiO2 01/05/18 14:45 97.8 86 20 121/76 100 Room Air 97.9 Disposition: ADMITTED INPATIENT Condition: Cindi Matias Jan 05, 2018 15:20
[2018-01-05 16:17] LABS: APPEARANCE,URINE SLIGHTLY CLOUDY; BILIRUBIN, URINE NEGATIVE (NEGATIVE); COLOR,URINE PALE YELLOW; GLUCOSE, URINE (UA) NEGATIVE (NEGATIVE); KETONES,URINE NEGATIVE (NEGATIVE); LEUKOCYTE ESTERASE ,URINE 3+ (NEGATIVE); NITRITE,URINE POSITIVE (NEGATIVE); PH,URINE 6 (4.5-8.0); PROTEIN,URINE 2+ (NEGATIVE); UROBILINOGEN,URINE NORMAL MG/DL (0.0-1.0)
[2018-01-05 16:33] LABS: EOSINOPHILS % (AUTO) 1.2 % (0.0-3.0); HEMATOCRIT 41.2 % (42.0-52.0); HEMOGLOBIN 13.8 G/DL (14.2-18.0); LYMPHOCYTES % (AUTO) 44.1 % (20.0-45.0); MEAN CORPUSCULAR VOLUME 92 FL (80-99); MONOCYTES % (AUTO) 5.8 % (1.0-10.0); PLATELET COUNT 323 K/UL (150-450); RED BLOOD COUNT 4.47 M/UL (4.70-6.10); RED CELL DISTRIBUTION WIDTH 13.8 % (11.6-14.8); WHITE BLOOD COUNT 12.9 K/UL (4.8-10.8)
[2018-01-05] MEDS ORDERED: cefTRIAXone 1 GM in NS 55 ML IVPB ONE (17:00)
--- NOTE | 2018-01-05 17:18 | Diagnostic Imaging Report ---
Indication: Foot pain Technique: 3 views left foot Comparison: none Findings: The second digit is indicated level the mid shaft middle phalanx. There is fusion of the middle phalangeal stump with the proximal phalanx. There is pes planus deformity. No acute fractures. No dislocations. No definite osseous erosions. Impression: No acute process Evidence of amputation of the distal second digit and fusion of the proximal interphalangeal joint
--- NOTE | 2018-01-05 17:19 | Diagnostic Imaging Report ---
Indication: Pain Technique: 3 views left foot Comparison: none Findings: No acute fractures. No dislocations. The joint spaces are preserved. There is mild hallux valgus and pes planus deformity. No definite osseous erosions. Impression: No acute process. Findings as noted
--- NOTE | 2018-01-05 17:20 | Diagnostic Imaging Report ---
Indication: Chest pain Technique: One view of the chest Comparison: 10/31/2017 Findings: Lungs and pleural spaces are clear. Heart size is normal. The aorta is somewhat tortuous and ectatic. Impression: No acute process
[2018-01-05 18:15] LABS: ANION GAP 9 mmol/L (5-15); BLOOD UREA NITROGEN 41 mg/dL (7-18); CALCIUM 8.6 MG/DL (8.5-10.1); CARBON DIOXIDE 23 MMOL/L (21-32); CHLORIDE 110 MMOL/L (98-107); CREATININE 1.8 MG/DL (0.55-1.30); POTASSIUM 4.9 MMOL/L (3.5-5.1); SODIUM 141 MMOL/L (136-145)
[2018-01-05 18:29] LABS: ALANINE AMINOTRANSFERASE 22 U/L (12-78); ALBUMIN/GLOBULIN RATIO 0.6 (1.0-2.7); ALKALINE PHOSPHATASE 147 U/L (46-116); ASPARTATE AMINO TRANSFERASE 24 U/L (15-37); BILIRUBIN,TOTAL 0.4 MG/DL (0.2-1.0); CKMB < 0.5 NG/ML (0.0-3.6); CREATINE KINASE 69 U/L (26-308)
--- NOTE | 2018-01-05 19:07 | History and Physical ---
History of Present Illness General Date patient seen: Jan 05, 2018 Reason for Hospitalization: Pain Present Illness HPI 67 year old Male with hx of dementia, CVA, presents to the ED brought by because he was agitated. he was c/o right flank pain, and has been more upset/ aggressive than usual. She also noted that he has discoloration of the skin on bilateral feet and was told to consider gangrene as pt.. HPI and ROS are limited due to pt. mental capacity and poor cooperation. Allergies: Uncoded Allergies: anesthesia (Allergy, Unknown, 07/04/14) Medication History Scheduled Ampicillin (Ampicillin Trihydrate), 500 MG ORAL Q6HR, (Reported) Aspirin (Ann Chewable), 81 MG PO DAILY, (Reported) Mirtazapine* (Remeron*), 15 MG ORAL BEDTIME, (Reported) Quetiapine Fumarate (Seroquel), 12.5 MG ORAL THREE TIMES A DAY, (Reported) Scheduled PRN Chlorpromazine (Chlorpromazine HCl), 25 MG PO Q6HR PRN for Agitation, (Reported) Haloperidol* (Haldol*), 5 MG ORAL EVERY 4 HOURS PRN for Agitation, (Reported) Phenazopyridine Hcl* (Pyridium*), 100 MG ORAL DAILY PRN for Per rx protocol, ( Reported) Miscellaneous Medications Unable to Obtain Medications (Unable To Obtain Meds), (Reported) Patient History Healthcare decision maker Resuscitation status Advanced Directive on File Past Medical/Surgical History Past Medical/Surgical History: (1) Osteomyelitis (2) CKD (chronic kidney disease) (3) Drug abuse (4) Staghorn renal calculus (5) Dementia (6) Methadone maintenance therapy patient Review of Systems All Other Systems: negative except mentioned in HPI Physical Exam General Appearance: WD/WN Lines, tubes and drains: peripheral HEENT: normocephalic, atraumatic Neck: non-tender, supple Respiratory/Chest: chest wall non-tender, lungs clear, normal breath sounds Breasts: no masses Cardiovascular/Chest: normal rate Abdomen: normal bowel sounds, non tender Genitourinary/Rectal: normal genital exam, normal rectal exam Last 24 Hour Vital Signs Date Time Temp Pulse Resp B/P (MAP) Pulse Ox O2 Delivery O2 Flow Rate FiO2 01/05/18 15:00 97.9 86 20 121/76 100 Room Air 97.9 01/05/18 14:45 97.8 86 20 121/76 100 Room Air 97.9 Laboratory Tests Test 01/05/18 15:55 01/05/18 16:00 01/05/18 17:40 01/05/18 17:45 Urine Color Pale yellow Urine Appearance Slightly cloudy Urine pH 6 (4.5-8.0) Urine Specific [place] 1.010 (1.005-1.035) Urine Protein 2+ (NEGATIVE) H Urine Glucose (UA) Negative (NEGATIVE) Urine Ketones Negative (NEGATIVE) Urine Occult Blood 2+ (NEGATIVE) H Urine Nitrite Positive (NEGATIVE) H Urine Bilirubin Negative (NEGATIVE) Urine Urobilinogen Normal MG/DL (0.0-1.0) Urine Leukocyte Esterase 3+ (NEGATIVE) H Urine RBC 5-10 /HPF (0 - 0) H Urine WBC 30-40 /HPF (0 - 0) H Urine Squamous Epithelial Cells None /LPF (NONE/OCC) Urine Amorphous Sediment Few /LPF (NONE) H Urine Bacteria Moderate /HPF (NONE) H White Blood Count 12.9 K/UL (4.8-10.8) H Red Blood Count 4.47 M/UL (4.70-6.10) L Hemoglobin 13.8 G/DL (14.2-18.0) L Hematocrit 41.2 % (42.0-52.0) L Mean Corpuscular Volume 92 FL (80-99) Mean Corpuscular Hemoglobin 30.8 PG (27.0-31.0) Mean Corpuscular Hemoglobin Concent 33.4 G/DL (32.0-36.0) Red Cell Distribution Width 13.8 % (11.6-14.8) Platelet Count 323 K/UL (150-450) Mean Platelet Volume 6.2 FL (6.5-10.1) L Neutrophils (%) (Auto) 48.0 % (45.0-75.0) Lymphocytes (%) (Auto) 44.1 % (20.0-45.0) Monocytes (%) (Auto) 5.8 % (1.0-10.0) Eosinophils (%) (Auto) 1.2 % (0.0-3.0) Basophils (%) (Auto) 1.0 % (0.0-2.0) Sodium Level 141 MMOL/L (136-145) Potassium Level 4.9 MMOL/L (3.5-5.1) Chloride Level 110 MMOL/L (98-107) H Carbon Dioxide Level 23 MMOL/L (21-32) Anion Gap 9 mmol/L (5-15) Blood Urea Nitrogen 41 mg/dL (7-18) H Creatinine 1.8 MG/DL (0.55-1.30) H Estimat Glomerular Filtration Rate 45.7 mL/min (>60) Glucose Level 150 MG/DL (74-106) H Lactic Acid Level 1.30 mmol/L (0.66-2.22) Calcium Level 8.6 MG/DL (8.5-10.1) Total Bilirubin 0.4 MG/DL (0.2-1.0) Aspartate Amino Transf (AST/SGOT) 24 U/L (15-37) Alanine Aminotransferase (ALT/SGPT) 22 U/L (12-78) Alkaline Phosphatase 147 U/L (46-116) H Total Creatine Kinase 69 U/L (26-308) Creatine Kinase MB < 0.5 NG/ML (0.0-3.6) Creatine Kinase MB Relative Index 0.7 Total Protein 7.8 G/DL (6.4-8.2) Albumin 3.0 G/DL (3.4-5.0) L Globulin 4.8 g/dL Albumin/Globulin Ratio 0.6 (1.0-2.7) L Troponin I 0.000 ng/mL (0.000-0.056) Height (Feet): 5 Height (Inches): 9.00 Weight (Pounds): 180 Medications Current Medications Medications (Trade) Dose Ordered Sig/Lucie Route PRN Reason Start Time Stop Time Status Last Admin Dose Admin Haloperidol (Haldol) 5 mg Q4H PRN ORAL Agitation 01/05/18 19:15 02/04/18 19:14 Mirtazapine (Remeron) 15 mg BEDTIME ORAL 01/05/18 21:00 02/04/18 20:59 Quetiapine Fumarate (SEROquel) 12.5 mg Q12HR ORAL 01/05/18 21:00 02/04/18 20:59 UNV Assessment/Plan Problem List: (1) Pyelonephritis ICD Codes: N12 - Tubulo-interstitial nephritis, not specified as acute or chronic SNOMED: 19506392 (2) ARF (acute renal failure) ICD Codes: N17.9 - ARF (acute renal failure) SNOMED: 40724288 (3) Dementia ICD Codes: F03.90 - Dementia SNOMED: 59720490 Qualifiers: Qualified Codes: F03.91 - Unspecified dementia with behavioral disturbance (4) UTI (lower urinary tract infection) ICD Codes: N39.0 - Urinary tract infection, site not specified SNOMED: 2764020 Assessment/Plan iv fluids iv abx check cultures psych evaluaion social scientist German Mooney MD Jan 05, 2018 19:06
[2018-01-05] MEDS ORDERED: Miralax 17gm pkt ORAL PRN (19:15)
[2018-01-05] MEDS ORDERED: Albuterol/Ipratropium 3ml neb HHN PRN (19:15)
[2018-01-05 19:45] VITALS: BP 122/74
[2018-01-05] MEDS ORDERED: [UNRECOGNIZED DRUG - OTHER] IVPB ONE (20:15)
[2018-01-05] MEDS ORDERED: VANCOMYCIN 1500 MG IVPB ONE (20:15)
[2018-01-05 22:05] VITALS: BP 125/73
[2018-01-05] MEDS: Heparin 5000 units/ml inj SUBQ SCH (23:20)
[2018-01-05 23:30] VITALS: BP 122/72
[2018-01-06] VITALS: BP 142/88
[2018-01-06] MEDS ORDERED: Cefepime 2gm ONE (02:43)
[2018-01-06] MEDS: Cefepime HCl 2 GM in D5W 110 ML IV SCH ×2 (02:47→23:05)
[2018-01-06 04:00] VITALS: BP 135/67
[2018-01-06 08:00] VITALS: BP 93/62
[2018-01-06] MEDS: Heparin 5000 units/ml inj SUBQ SCH ×2 (09:05→20:57)
[2018-01-06 09:26] LABS: BASOPHILS % (AUTO) 0.5 % (0.0-2.0); HEMATOCRIT 35.7 % (42.0-52.0); HEMOGLOBIN 11.6 G/DL (14.2-18.0); LYMPHOCYTES % (AUTO) 31.2 % (20.0-45.0); MEAN CORPUSCULAR VOLUME 93 FL (80-99); MONOCYTES % (AUTO) 7.5 % (1.0-10.0); NEUTROPHILS % (AUTO) 57.9 % (45.0-75.0); PLATELET COUNT 277 K/UL (150-450); RED BLOOD COUNT 3.84 M/UL (4.70-6.10); RED CELL DISTRIBUTION WIDTH 13.5 % (11.6-14.8); WHITE BLOOD COUNT 7.9 K/UL (4.8-10.8)
--- NOTE | 2018-01-06 09:37 | Diagnostic Imaging Report ---
Indication: Abdominal pain Technique: Spiral acquisitions obtained through the abdomen and pelvis. No oral contrast utilized, per emergency room physician request No IV contrast utilized, per referring physician request.. Multiplanar reconstructions were generated. Total dose length product 543.16 mGycm. CTDIvol(s) 11.29 mGy. Dose reduction achieved using automated exposure control Comparison: 10/03/2016 Findings: Lack of IV contrast limits assessment of the renal parenchyma. Previously demonstrated left renal pelvic staghorn calculus has shifted position, the periphery now in the upper pole collecting system, whereas it was previously in the lower pole collecting system, medial portion still occupying the renal pelvis. This measures 4.2 x 2.5 cm. A cluster of calcifications also seen in the lower pole collecting system. These appear slightly less numerous than on the prior study. The previously demonstrated collecting system gas has decreased, with only a single bubble now present within the anterior interpolar region collecting system. The upper pole collecting system appears only mildly hydronephrotic, perhaps less so than on the prior study. Again demonstrated is a 2.5 cm upper pole cyst. No ureteral calculus demonstrated Right kidney is atrophic. It again demonstrates hydronephrosis and a prominent extrarenal pelvis. This is slightly increased from prior exam. There is a small exophytic right renal cyst. There is a 13 x 6 mm calculus in the lower pole collecting system. There are 2 adjacent distal ureteral calculi again demonstrated, one measuring 7 x 5 mm, the other 4 x 2 mm The bladder contains gas. The bladder wall is mildly thickened, similar to previous. Patient is status post prostatectomy with surgical clips in the pelvis. Lack of IV contrast limits assessment of the other solid organs. The liver is unremarkable. The gallbladder contains gallstones which are not evident on the previous exam. The pancreas, spleen, adrenals are unremarkable. No retroperitoneal or mesenteric mass or adenopathy. No pelvic mass or adenopathy. The appendix is normal. No evidence of diverticulosis or diverticulitis. No small bowel distention. No free or loculated intraperitoneal air or fluid is evident. The distal esophagus, stomach, duodenum are unremarkable. The included lung bases demonstrate posterior dependent atelectatic changes, left greater than right, less extensive than on the prior study. The lung bases appear hyperinflated and there is a small bulla in the inferior left upper lobe. The bones demonstrate mild degenerative spondylosis changes. There is less soft tissue edema and was evident previously. Patient has gained some weight in the interim. Small subcutaneous nodule is seen in the pubic region to the left of midline, also evident previously. Impression: Distal right ureteral calculi, stable over multiple earlier studies dating back to 09/20/2014, again demonstrated. There is persistent right hydronephrosis and right renal atrophy. Nonobstructive right lower pole renal calculi are again demonstrated. Large left renal staghorn calculus, also present as far back as 2013. Mild right hydronephrosis but no ureteral calculi or hydroureter. Other nonobstructive left lower pole renal calculi are also evident. Gas bubbles within the left renal collecting system and bladder, markedly decreased from the previous 2016 exam. Uncertain as to whether these represent bladder instrumentation with reflux into the left renal collecting system, versus artifact due to infection with gas-forming organism. Correlate with clinical and laboratory findings. The bladder wall is also mildly thickened, unchanged from previously. Cystitis a possibility. Left renal cyst, also previously described Cholelithiasis, new since prior study Left basilar dependent pulmonary parenchymal atelectasis. Evidence of COPD, with hyperinflation and a single small bulla Evidence of prior prostatectomy Findings as noted, including small left pubic region subcutaneous nodule, degenerative spondylosis. This agrees with the preliminary interpretation provided overnight by [facility] teleradiology service. The CT scanner at [facility] is accredited by the [employer] and the scans are performed using protocols designed to limit radiation exposure to as low as reasonably achievable to attain images of sufficient resolution adequate for diagnostic evaluation.
[2018-01-06 10:03] LABS: ALANINE AMINOTRANSFERASE 25 U/L (12-78); ALBUMIN 2.7 G/DL (3.4-5.0); ALBUMIN/GLOBULIN RATIO 0.6 (1.0-2.7); ALKALINE PHOSPHATASE 135 U/L (46-116); ANION GAP 11 mmol/L (5-15); ASPARTATE AMINO TRANSFERASE 22 U/L (15-37); BILIRUBIN,TOTAL 0.5 MG/DL (0.2-1.0); BLOOD UREA NITROGEN 40 mg/dL (7-18); CALCIUM 8.6 MG/DL (8.5-10.1); CARBON DIOXIDE 23 MMOL/L (21-32); CHLORIDE 107 MMOL/L (98-107); POTASSIUM 4.4 MMOL/L (3.5-5.1); SODIUM 141 MMOL/L (136-145)
[2018-01-06 12:00] VITALS: BP 110/67
--- NOTE | 2018-01-06 12:55 | Consultation ---
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 Afebrile, mild leukocytosis. Of note, patient recently admitted here on Oct 2017 with gastroenteritis and possible enterococcal UTI s/p Tx. Allergies: Uncoded Allergies: anesthesia (Allergy, Unknown, 07/04/14) Medication History Scheduled Ampicillin (Ampicillin Trihydrate), 500 MG ORAL Q6HR, (Reported) Aspirin (Ann Chewable), 81 MG PO DAILY, (Reported) Mirtazapine* (Remeron*), 15 MG ORAL BEDTIME, (Reported) Quetiapine Fumarate (Seroquel), 12.5 MG ORAL THREE TIMES A DAY, (Reported) Scheduled PRN Chlorpromazine (Chlorpromazine HCl), 25 MG PO Q6HR PRN for Agitation, (Reported) Haloperidol* (Haldol*), 5 MG ORAL EVERY 4 HOURS PRN for Agitation, (Reported) Phenazopyridine Hcl* (Pyridium*), 100 MG ORAL DAILY PRN for Per rx protocol, ( Reported) Miscellaneous Medications Unable to Obtain Medications (Unable To Obtain Meds), (Reported) Patient History Healthcare decision maker Resuscitation status Full Code Advanced Directive on File Yes Patient History Narrative PMhx: as above Shx: reviewed Fhx: non contributory Review of Systems ROS Narrative unable to obtain Physical Exam Physical Exam Narrative General Appearance: no apparent distress, alert HEENT: normocephalic, atraumatic PERRL Neck: full range of motion Respiratory: chest non-tender, lungs clear, normal breath sounds, speaking full sentences Cardiovascular regular rate, rhythm, no edema Gastrointestinal: normal bowel sounds, non tender, soft Musculoskeletal: back normal, gait/station normal, normal range of motion, non- tender Neurologic: alert, responsive, motor strength/tone normal, sensory intact, normal gait, speech normal, grossly normal Skin: no rash, warm/dry, well hydrated, other - hyperpigmentation of the bilateral feet and ankles, consistent with PAD/ insufficiency- chronic. no obvious wounds, no erythema Last 24 Hour Vital Signs Date Time Temp Pulse Resp B/P (MAP) Pulse Ox O2 Delivery O2 Flow Rate FiO2 01/06/18 08:00 97.3 99 20 93/62 96 Room Air 97.3 01/06/18 04:00 97.4 63 21 135/67 97 97.4 01/06/18 00:00 98.4 81 20 142/88 98 98.4 01/05/18 23:50 97.6 82 16 122/72 99 Room Air 97.6 01/05/18 23:30 97.6 82 16 122/72 99 Room Air 97.6 01/05/18 22:05 84 17 125/73 98 Room Air 01/05/18 19:45 97.8 84 19 122/74 99 Room Air 97.8 01/05/18 15:00 97.9 86 20 121/76 100 Room Air 97.9 01/05/18 14:45 97.8 86 20 121/76 100 Room Air 97.9 Intake and Output 01/05/18 01/06/18 19:00 07:00 Intake Total 110 ml Output Total 200 ml 600 ml Balance -200 ml -490 ml Intake IV Total 110 ml Output Urine Total 200 ml 600 ml # Voids 1 # Bowel Movements 1 Laboratory Tests Test 01/05/18 15:55 01/05/18 16:00 01/05/18 17:40 01/05/18 17:45 Urine Color Pale yellow Urine Appearance Slightly cloudy Urine pH 6 (4.5-8.0) Urine Specific Hensley 1.010 (1.005-1.035) Urine Protein 2+ (NEGATIVE) H Urine Glucose (UA) Negative (NEGATIVE) Urine Ketones Negative (NEGATIVE) Urine Occult Blood 2+ (NEGATIVE) H Urine Nitrite Positive (NEGATIVE) H Urine Bilirubin Negative (NEGATIVE) Urine Urobilinogen Normal MG/DL (0.0-1.0) Urine Leukocyte Esterase 3+ (NEGATIVE) H Urine RBC 5-10 /HPF (0 - 0) H Urine WBC 30-40 /HPF (0 - 0) H Urine Squamous Epithelial Cells None /LPF (NONE/OCC) Urine Amorphous Sediment Few /LPF (NONE) H Urine Bacteria Moderate /HPF (NONE) H White Blood Count 12.9 K/UL (4.8-10.8) H Red Blood Count 4.47 M/UL (4.70-6.10) L Hemoglobin 13.8 G/DL (14.2-18.0) L Hematocrit 41.2 % (42.0-52.0) L Mean Corpuscular Volume 92 FL (80-99) Mean Corpuscular Hemoglobin 30.8 PG (27.0-31.0) Mean Corpuscular Hemoglobin Concent 33.4 G/DL (32.0-36.0) Red Cell Distribution Width 13.8 % (11.6-14.8) Platelet Count 323 K/UL (150-450) Mean Platelet Volume 6.2 FL (6.5-10.1) L Neutrophils (%) (Auto) 48.0 % (45.0-75.0) Lymphocytes (%) (Auto) 44.1 % (20.0-45.0) Monocytes (%) (Auto) 5.8 % (1.0-10.0) Eosinophils (%) (Auto) 1.2 % (0.0-3.0) Basophils (%) (Auto) 1.0 % (0.0-2.0) Sodium Level 141 MMOL/L (136-145) Potassium Level 4.9 MMOL/L (3.5-5.1) Chloride Level 110 MMOL/L (98-107) H Carbon Dioxide Level 23 MMOL/L (21-32) Anion Gap 9 mmol/L (5-15) Blood Urea Nitrogen 41 mg/dL (7-18) H Creatinine 1.8 MG/DL (0.55-1.30) H Estimat Glomerular Filtration Rate 45.7 mL/min (>60) Glucose Level 150 MG/DL (74-106) H Lactic Acid Level 1.30 mmol/L (0.66-2.22) Calcium Level 8.6 MG/DL (8.5-10.1) Total Bilirubin 0.4 MG/DL (0.2-1.0) Aspartate Amino Transf (AST/SGOT) 24 U/L (15-37) Alanine Aminotransferase (ALT/SGPT) 22 U/L (12-78) Alkaline Phosphatase 147 U/L (46-116) H Total Creatine Kinase 69 U/L (26-308) Creatine Kinase MB < 0.5 NG/ML (0.0-3.6) Creatine Kinase MB Relative Index 0.7 Total Protein 7.8 G/DL (6.4-8.2) Albumin 3.0 G/DL (3.4-5.0) L Globulin 4.8 g/dL Albumin/Globulin Ratio 0.6 (1.0-2.7) L Troponin I 0.000 ng/mL (0.000-0.056) Test 01/06/18 08:55 White Blood Count 7.9 K/UL (4.8-10.8) Red Blood Count 3.84 M/UL (4.70-6.10) L Hemoglobin 11.6 G/DL (14.2-18.0) L Hematocrit 35.7 % (42.0-52.0) L Mean Corpuscular Volume 93 FL (80-99) Mean Corpuscular Hemoglobin 30.3 PG (27.0-31.0) Mean Corpuscular Hemoglobin Concent 32.6 G/DL (32.0-36.0) Red Cell Distribution Width 13.5 % (11.6-14.8) Platelet Count 277 K/UL (150-450) Mean Platelet Volume 6.4 FL (6.5-10.1) L Neutrophils (%) (Auto) 57.9 % (45.0-75.0) Lymphocytes (%) (Auto) 31.2 % (20.0-45.0) Monocytes (%) (Auto) 7.5 % (1.0-10.0) Eosinophils (%) (Auto) 3.0 % (0.0-3.0) Basophils (%) (Auto) 0.5 % (0.0-2.0) Sodium Level 141 MMOL/L (136-145) Potassium Level 4.4 MMOL/L (3.5-5.1) Chloride Level 107 MMOL/L (98-107) Carbon Dioxide Level 23 MMOL/L (21-32) Anion Gap 11 mmol/L (5-15) Blood Urea Nitrogen 40 mg/dL (7-18) H Creatinine 2.0 MG/DL (0.55-1.30) H Estimat Glomerular Filtration Rate 40.5 mL/min (>60) Glucose Level 126 MG/DL (74-106) H Calcium Level 8.6 MG/DL (8.5-10.1) Total Bilirubin 0.5 MG/DL (0.2-1.0) Aspartate Amino Transf (AST/SGOT) 22 U/L (15-37) Alanine Aminotransferase (ALT/SGPT) 25 U/L (12-78) Alkaline Phosphatase 135 U/L (46-116) H Total Protein 7.4 G/DL (6.4-8.2) Albumin 2.7 G/DL (3.4-5.0) L Globulin 4.7 g/dL Albumin/Globulin Ratio 0.6 (1.0-2.7) L Microbiology Date/Time Source Procedure Growth Status 01/05/18 15:55 Urine,Clean Catch Urine Culture - Preliminary Gram Negative Bacillus 1 Resulted Height (Feet): 5 Height (Inches): 9.00 Weight (Pounds): 180 Medications Current Medications Medications (Trade) Dose Ordered Sig/Lucie Route PRN Reason Start Time Stop Time Status Last Admin Dose Admin Acetaminophen (Tylenol) 650 mg Q4H PRN ORAL T>100.5 01/05/18 19:15 02/04/18 19:14 Albuterol/ Ipratropium (Albuterol/ Ipratropium) 3 ml Q4H PRN HHN Shortness of Breath 01/05/18 19:15 01/10/18 19:14 Cefepime HCl 2 gm/ Dextrose 110 ml @ 220 mls/hr Q24H IV 01/05/18 23:00 01/12/18 22:59 01/06/18 02:47 Haloperidol (Haldol) 5 mg Q4H PRN ORAL Agitation 01/05/18 19:15 02/04/18 19:14 Heparin Sodium (Porcine) (Heparin 5000 units/ml) 5,000 units EVERY 12 HOURS SUBQ 01/05/18 21:00 02/04/18 20:59 01/06/18 09:05 Mirtazapine (Remeron) 15 mg BEDTIME ORAL 01/05/18 21:00 02/04/18 20:59 01/05/18 23:16 Morphine Sulfate (Morphine Sulfate) 2 mg Q4H PRN IVP Moderate Pain (Pain Scale 4-6) 01/05/18 19:15 01/12/18 19:14 Ondansetron HCl (Zofran) 4 mg Q6H PRN IVP Nausea & Vomiting 01/05/18 19:15 02/04/18 19:14 Phenazopyridine HCl (Pyridium) 100 mg DAILYPRN PRN ORAL dysuria 01/05/18 19:15 02/04/18 19:14 Polyethylene Glycol (Miralax) 17 gm DAILYPRN PRN ORAL Constipation 01/05/18 19:15 02/04/18 19:14 Quetiapine Fumarate (SEROquel) 12.5 mg Q12HR ORAL 01/05/18 21:00 02/04/18 20:59 01/06/18 09:02 Temazepam (Restoril) 15 mg HSPRN PRN ORAL Insomnia 01/05/18 21:00 01/12/18 20:59 Vancomycin HCl (Vanco rx to dose) 1 ea DAILY PRN MISC . 01/05/18 20:00 02/04/18 19:59 Vancomycin HCl 1 gm/Dextrose 275 ml @ 183.3 mls/ hr Q24H IVPB 01/06/18 20:00 01/11/18 19:59 Assessment/Plan Assessment/Plan Abx: Ceftriaxone x1 01/05 Cefepime 01/05- IV Vancomycin 01/05- Assessment: R flank pain- chronic b/l calculus, possibly infected -CT abd/p: Distal right ureteral calculi, stable over multiple earlier studies dating back to 09/20/2014, again demonstrated. There is persistent right hydronephrosis and right renal atrophy. Nonobstructive right lower pole renal calculi are again demonstrated. Large left renal staghorn calculus, also present as far back as 2013. Mild right hydronephrosis but no ureteral calculi or hydroureter. Other nonobstructive left lower pole renal calculi are also evident. Gas bubbles within the left renal collecting system and bladder, markedly decreased from the previous 2016 exam. Uncertain as to whether these represent bladder instrumentation with reflux into the left renal collecting system, versus artifact due to infection with gas -forming organism. Correlate with clinical and laboratory findings. The bladder wall is also mildly thickened, unchanged from previously. Cystitis a possibility. Left renal cyst, also previously described. Cholelithiasis, new since prior study. Left basilar dependent pulmonary parenchymal atelectasis. Evidence of COPD, with hyperinflation and a single small bulla. Evidence of prior prostatectomy -u/a wbc 30-40, nit +, leuk +3; ucx >GNRs -Bcx p Mild leukocytosis -CXR no acute process -Xray R foot and L foot: no acute process recent possible UTI oct 2017, s/p Rx -u/a WBC TNTC- ucx >100k E. fecalis (S Vanco, amp), 30-40k mixed gram positive growth Chronic Hep C infection - hEp C VL 42K 10/2017 -Hep A Imm, Hep B Ab neg, HIV Neg History of recurrent urinary tract infection. History of osteomyelitis of the second left toe and distal phalanx. History of prostate cancer. History of renal stone and CKD. Dementia HTN CVA hx IVDA Plan: - D/C IV Vancomycin #2 and COntinue Cefepime #2 pending Ucx -01/05 SP Ceftriaxone x1 -11/12 SP PO ampicillin #14 -f/u cx -Recommend uro evaluation- as long as patient has obstructive nephrolithiasis will continue to have recurrent UTIs -monitor CBC/BMP, temperatures -pain control -aspiration precautions. Thank you for this consultation. Will continue to follow along with you. Discussed with KERMIT. Janet Rowland M.D. Jan 06, 2018 12:55
[2018-01-06] MEDS: Morphine Sulfate 2mg/ml Inj IVP PRN ×2 (13:26→17:29)
[2018-01-06 16:00] VITALS: BP 105/62
--- NOTE | 2018-01-06 16:47 | Pulmonology Progress Note ---
Assessment/Plan Problems: (1) Pyelonephritis (2) ARF (acute renal failure) (3) Dementia (4) UTI (lower urinary tract infection) Assessment/Plan check cultures id evaluation manager social work evaluation pt/ot Subjective ROS Limited/Unobtainable: No Constitutional: Reports: no symptoms HEENT: Repors: no symptoms Respiratory: Reports: no symptoms Allergies: Uncoded Allergies: anesthesia (Allergy, Unknown, 07/04/14) Objective Last 24 Hour Vital Signs Date Time Temp Pulse Resp B/P (MAP) Pulse Ox O2 Delivery O2 Flow Rate FiO2 01/06/18 16:00 97.5 97 20 105/62 96 Room Air 97.5 01/06/18 13:56 97.5 01/06/18 13:26 97.5 01/06/18 12:00 97.5 92 20 110/67 96 Room Air 97.5 01/06/18 08:00 97.3 99 20 93/62 96 Room Air 97.3 01/06/18 04:00 97.4 63 21 135/67 97 97.4 01/06/18 00:00 98.4 81 20 142/88 98 98.4 01/05/18 23:50 97.6 82 16 122/72 99 Room Air 97.6 01/05/18 23:30 97.6 82 16 122/72 99 Room Air 97.6 01/05/18 22:05 84 17 125/73 98 Room Air 01/05/18 19:45 97.8 84 19 122/74 99 Room Air 97.8 Intake and Output 01/05/18 01/06/18 19:00 07:00 Intake Total 110 ml Output Total 200 ml 600 ml Balance -200 ml -490 ml Intake IV Total 110 ml Output Urine Total 200 ml 600 ml # Voids 1 # Bowel Movements 1 General Appearance: WD/WN HEENT: normocephalic, atraumatic Respiratory/Chest: chest wall non-tender, lungs clear Cardiovascular: normal peripheral pulses, normal rate Extremities: no cyanosis Skin: no rash Neurologic/Psychiatric: 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 grossly normal, no motor/sensory deficits Microbiology Date/Time Source Procedure Growth Status 01/05/18 15:55 Urine,Clean Catch Urine Culture - Preliminary Gram Negative Bacillus 1 Resulted Laboratory Tests 01/05/18 17:40: Sodium Level 141, Potassium Level 4.9, Chloride Level 110H, Carbon Dioxide Level 23, Anion Gap 9, Blood Urea Nitrogen 41H, Creatinine 1.8H, Estimat Glomerular Filtration Rate 45.7, Glucose Level 150H, Lactic Acid Level 1.30, Calcium Level 8.6, Total Bilirubin 0.4, Aspartate Amino Transf (AST/SGOT) 24, Alanine Aminotransferase (ALT/SGPT) 22, Alkaline Phosphatase 147H, Total Creatine Kinase 69, Creatine Kinase MB < 0.5, Creatine Kinase MB Relative Index 0.7, Total Protein 7.8, Albumin 3.0L, Globulin 4.8, Albumin/Globulin Ratio 0.6L 01/05/18 17:45: Troponin I 0.000 01/06/18 08:55: Sodium Level 141, Potassium Level 4.4, Chloride Level 107, Carbon Dioxide Level 23, Anion Gap 11, Blood Urea Nitrogen 40H, Creatinine 2.0H, Estimat Glomerular Filtration Rate 40.5, Glucose Level 126H, Calcium Level 8.6, Total Bilirubin 0.5 , Aspartate Amino Transf (AST/SGOT) 22, Alanine Aminotransferase (ALT/SGPT) 25, Alkaline Phosphatase 135H, Total Protein 7.4, Albumin 2.7L, Globulin 4.7, Albumin/Globulin Ratio 0.6L, White Blood Count 7.9, Red Blood Count 3.84L, Hemoglobin 11.6L, Hematocrit 35.7L, Mean Corpuscular Volume 93, Mean Corpuscular Hemoglobin 30.3, Mean Corpuscular Hemoglobin Concent 32.6, Red Cell Distribution Width 13.5, Platelet Count 277, Mean Platelet Volume 6.4L, Neutrophils (%) (Auto) 57.9, Lymphocytes (%) (Auto) 31.2, Monocytes (%) (Auto) 7.5, Eosinophils (%) (Auto) 3.0, Basophils (%) (Auto) 0.5 Current Medications Medications (Trade) Dose Ordered Sig/Lucie Route PRN Reason Start Time Stop Time Status Last Admin Dose Admin Acetaminophen (Tylenol) 650 mg Q4H PRN ORAL T>100.5 01/05/18 19:15 02/04/18 19:14 Albuterol/ Ipratropium (Albuterol/ Ipratropium) 3 ml Q4H PRN HHN Shortness of Breath 01/05/18 19:15 01/10/18 19:14 Cefepime HCl 2 gm/ Dextrose 110 ml @ 220 mls/hr Q24H IV 01/05/18 23:00 01/12/18 22:59 01/06/18 02:47 Haloperidol (Haldol) 5 mg Q4H PRN ORAL Agitation 01/05/18 19:15 02/04/18 19:14 01/06/18 15:16 Heparin Sodium (Porcine) (Heparin 5000 units/ml) 5,000 units EVERY 12 HOURS SUBQ 01/05/18 21:00 02/04/18 20:59 01/06/18 09:05 Mirtazapine (Remeron) 15 mg BEDTIME ORAL 01/05/18 21:00 02/04/18 20:59 01/05/18 23:16 Morphine Sulfate (Morphine Sulfate) 2 mg Q4H PRN IVP Moderate Pain (Pain Scale 4-6) 01/05/18 19:15 01/12/18 19:14 01/06/18 13:26 Ondansetron HCl (Zofran) 4 mg Q6H PRN IVP Nausea & Vomiting 01/05/18 19:15 02/04/18 19:14 Phenazopyridine HCl (Pyridium) 100 mg DAILYPRN PRN ORAL dysuria 01/05/18 19:15 02/04/18 19:14 Polyethylene Glycol (Miralax) 17 gm DAILYPRN PRN ORAL Constipation 01/05/18 19:15 02/04/18 19:14 Quetiapine Fumarate (SEROquel) 12.5 mg Q12HR ORAL 01/05/18 21:00 02/04/18 20:59 01/06/18 09:02 Temazepam (Restoril) 15 mg HSPRN PRN ORAL Insomnia 01/05/18 21:00 01/12/18 20:59 German Mooney MD Jan 06, 2018 16:47
--- NOTE | 2018-01-06 18:36 | Cardiology Report ---
APPROVED REPORT EKG Measurement Heart [id number] Normal sinus rhythm Normal ECG
[2018-01-06 20:00] VITALS: BP 106/74
[2018-01-06] MEDS ORDERED: Vancomycin 1 GM in D5W 275 ML IVPB SCH (20:00)
[2018-01-07] VITALS (7 sets, daily range): BP systolic 95–137; BP diastolic 62–88
[2018-01-07] MEDS: Morphine Sulfate 2mg/ml Inj IVP PRN ×2 (08:29→18:04)
[2018-01-07] MEDS: Heparin 5000 units/ml inj SUBQ SCH ×3 (08:30→20:23)
--- NOTE | 2018-01-07 16:09 | Infectious Diseases Prog Note ---
Assessment/Plan Assessment/Plan Assessment: R flank pain- chronic b/l calculus, possibly infected -CT abd/p: Distal right ureteral calculi, stable over multiple earlier studies dating back to 09/20/2014, again demonstrated. There is persistent right hydronephrosis and right renal atrophy. Nonobstructive right lower pole renal calculi are again demonstrated. Large left renal staghorn calculus, also present as far back as 2013. Mild right hydronephrosis but no ureteral calculi or hydroureter. Other nonobstructive left lower pole renal calculi are also evident. Gas bubbles within the left renal collecting system and bladder, markedly decreased from the previous 2016 exam. Uncertain as to whether these represent bladder instrumentation with reflux into the left renal collecting system, versus artifact due to infection with gas -forming organism. Correlate with clinical and laboratory findings. The bladder wall is also mildly thickened, unchanged from previously. Cystitis a possibility. Left renal cyst, also previously described. Cholelithiasis, new since prior study. Left basilar dependent pulmonary parenchymal atelectasis. Evidence of COPD, with hyperinflation and a single small bulla. Evidence of prior prostatectomy -u/a wbc 30-40, nit +, leuk +3; ucx >100K ESBL E.coli (S zozyn, nitrofurantoin , bactrim, ertapenem) -Bcx NTD Mild leukocytosis, resolevd -CXR no acute process -Xray R foot and L foot: no acute process recent possible UTI oct 2017, s/p Rx -u/a WBC TNTC- ucx >100k E. fecalis (S Vanco, amp), 30-40k mixed gram positive growth Chronic Hep C infection - hEp C VL 42K 10/2017 -Hep A Imm, Hep B Ab neg, HIV Neg History of recurrent urinary tract infection. History of osteomyelitis of the second left toe and distal phalanx. History of prostate cancer. History of renal stone and CKD. Dementia HTN CVA hx IVDA Plan: - Switch Cefepime #12/24-10 to Ertapenem for possible ESBL UTI -01/06 SP IV Vancomycin #2 -01/05 SP Ceftriaxone x1 -11/12 SP PO ampicillin #14 -f/u cx -Recommend uro evaluation- as long as patient has obstructive nephrolithiasis will continue to have recurrent UTIs -monitor CBC/BMP, temperatures -pain control -aspiration precautions. Thank you for this consultation. Will continue to follow along with you. Discussed with RN. Subjective Allergies: Uncoded Allergies: anesthesia (Allergy, Unknown, 07/04/14) Subjective afebrile no leukocytosis ucx grew ESBL Bcx NTD Objective Vital Signs Last 24 Hour Vital Signs Date Time Temp Pulse Resp B/P (MAP) Pulse Ox O2 Delivery O2 Flow Rate FiO2 01/07/18 12:00 98.0 90 19 107/70 95 98.0 01/07/18 08:00 97.8 92 19 115/72 95 97.8 01/07/18 04:34 97.6 95 20 101/64 93 97.6 01/07/18 00:00 97.5 91 21 95/62 93 97.5 01/06/18 20:00 98.2 100 20 106/74 96 98.2 01/06/18 17:59 97.5 01/06/18 17:29 97.5 Height (Feet): 5 Height (Inches): 9.00 Weight (Pounds): 180 Objective General Appearance: no apparent distress, alert HEENT: normocephalic, atraumatic PERRL Neck: full range of motion Respiratory: chest non-tender, lungs clear, normal breath sounds, speaking full sentences Cardiovascular regular rate, rhythm, no edema Gastrointestinal: normal bowel sounds, non tender, soft Musculoskeletal: back normal, gait/station normal, normal range of motion, non- tender Neurologic: alert, responsive, motor strength/tone normal, sensory intact, normal gait, speech normal, grossly normal Skin: no rash, warm/dry, well hydrated, other - hyperpigmentation of the bilateral feet and ankles, consistent with PAD/ insufficiency- chronic. no obvious wounds, no erythema Microbiology Date/Time Source Procedure Growth Status 01/05/18 17:45 Blood Blood Culture - Preliminary NO GROWTH AFTER 24 HOURS Resulted 01/05/18 17:30 Blood Blood Culture - Preliminary NO GROWTH AFTER 24 HOURS Resulted 01/05/18 15:55 Urine,Clean Catch Urine Culture - Final Escherichia Coli - Esbl Complete Current Medications Medications (Trade) Dose Ordered Sig/Lucie Route PRN Reason Start Time Stop Time Status Last Admin Dose Admin Acetaminophen (Tylenol) 650 mg Q4H PRN ORAL T>100.5 01/05/18 19:15 02/04/18 19:14 Albuterol/ Ipratropium (Albuterol/ Ipratropium) 3 ml Q4H PRN HHN Shortness of Breath 01/05/18 19:15 01/10/18 19:14 Ertapenem 1 gm/ Sodium Chloride 55 ml @ 110 mls/hr DAILY IVPB 01/07/18 17:00 01/12/18 16:59 Haloperidol (Haldol) 5 mg Q4H PRN ORAL Agitation 01/05/18 19:15 02/04/18 19:14 01/06/18 20:53 Heparin Sodium (Porcine) (Heparin 5000 units/ml) 5,000 units EVERY 12 HOURS SUBQ 01/05/18 21:00 02/04/18 20:59 01/06/18 20:57 Mirtazapine (Remeron) 15 mg BEDTIME ORAL 01/05/18 21:00 02/04/18 20:59 01/06/18 20:53 Morphine Sulfate (Morphine Sulfate) 2 mg Q4H PRN IVP Moderate Pain (Pain Scale 4-6) 01/05/18 19:15 01/12/18 19:14 01/07/18 08:29 Ondansetron HCl (Zofran) 4 mg Q6H PRN IVP Nausea & Vomiting 01/05/18 19:15 02/04/18 19:14 Phenazopyridine HCl (Pyridium) 100 mg DAILYPRN PRN ORAL dysuria 01/05/18 19:15 02/04/18 19:14 Polyethylene Glycol (Miralax) 17 gm DAILYPRN PRN ORAL Constipation 01/05/18 19:15 02/04/18 19:14 Quetiapine Fumarate (SEROquel) 12.5 mg Q12HR ORAL 01/05/18 21:00 02/04/18 20:59 01/07/18 08:30 Temazepam (Restoril) 15 mg HSPRN PRN ORAL Insomnia 01/05/18 21:00 01/12/18 20:59 Janet Rowland M.D. Jan 07, 2018 16:09
[2018-01-07] MEDS: Ertapenem 1gm in NS 55ml IVPB SCH (17:22)
--- NOTE | 2018-01-07 22:02 | Pulmonology Progress Note ---
Assessment/Plan Problems: (1) Pyelonephritis (2) ARF (acute renal failure) (3) Dementia (4) UTI (lower urinary tract infection) Assessment/Plan check cultures id evaluation director social evaluation pt/ot check rnela function Subjective ROS Limited/Unobtainable: No Allergies: Uncoded Allergies: anesthesia (Allergy, Unknown, 07/04/14) Objective Last 24 Hour Vital Signs Date Time Temp Pulse Resp B/P (MAP) Pulse Ox O2 Delivery O2 Flow Rate FiO2 01/07/18 20:00 97.0 83 20 137/88 95 Room Air 97.0 01/07/18 16:20 98.8 85 17 120/71 97 98.8 01/07/18 16:00 98.8 85 19 120/71 97 98.8 01/07/18 12:00 98.0 90 19 107/70 95 98.0 01/07/18 08:00 97.8 92 19 115/72 95 97.8 01/07/18 04:34 97.6 95 20 101/64 93 97.6 01/07/18 00:00 97.5 91 21 95/62 93 97.5 Intake and Output 01/06/18 01/07/18 19:00 07:00 Intake Total 1040 ml 470 ml Balance 1040 ml 470 ml Intake Oral 1040 ml 360 ml IV Total 110 ml # Voids 8 2 Objective General Appearance: WD/WN Lines, tubes and drains: peripheral HEENT: normocephalic, atraumatic Neck: non-tender, normal alignment Respiratory/Chest: chest wall non-tender, lungs clear, normal breath sounds Breasts: no masses Cardiovascular/Chest: normal peripheral pulses, normal rate, no JVD Abdomen: normal bowel sounds, non tender Microbiology Date/Time Source Procedure Growth Status 01/05/18 17:45 Blood Blood Culture - Preliminary NO GROWTH AFTER 24 HOURS Resulted 01/05/18 17:30 Blood Blood Culture - Preliminary NO GROWTH AFTER 24 HOURS Resulted 01/05/18 15:55 Urine,Clean Catch Urine Culture - Final Escherichia Coli - Esbl Complete Current Medications Medications (Trade) Dose Ordered Sig/Lucie Route PRN Reason Start Time Stop Time Status Last Admin Dose Admin Acetaminophen (Tylenol) 650 mg Q4H PRN ORAL T>100.5 01/05/18 19:15 02/04/18 19:14 Albuterol/ Ipratropium (Albuterol/ Ipratropium) 3 ml Q4H PRN HHN Shortness of Breath 01/05/18 19:15 01/10/18 19:14 Ertapenem 1 gm/ Sodium Chloride 55 ml @ 110 mls/hr DAILY IVPB 01/07/18 17:00 01/12/18 16:59 01/07/18 17:22 Haloperidol (Haldol) 5 mg Q4H PRN ORAL Agitation 01/05/18 19:15 02/04/18 19:14 01/06/18 20:53 Heparin Sodium (Porcine) (Heparin 5000 units/ml) 5,000 units EVERY 12 HOURS SUBQ 01/05/18 21:00 02/04/18 20:59 01/06/18 20:57 Mirtazapine (Remeron) 15 mg BEDTIME ORAL 01/05/18 21:00 02/04/18 20:59 01/07/18 20:21 Morphine Sulfate (Morphine Sulfate) 2 mg Q4H PRN IVP Moderate Pain (Pain Scale 4-6) 01/05/18 19:15 01/12/18 19:14 01/07/18 18:04 Ondansetron HCl (Zofran) 4 mg Q6H PRN IVP Nausea & Vomiting 01/05/18 19:15 02/04/18 19:14 Phenazopyridine HCl (Pyridium) 100 mg DAILYPRN PRN ORAL dysuria 01/05/18 19:15 02/04/18 19:14 Polyethylene Glycol (Miralax) 17 gm DAILYPRN PRN ORAL Constipation 01/05/18 19:15 02/04/18 19:14 Quetiapine Fumarate (SEROquel) 12.5 mg Q12HR ORAL 01/05/18 21:00 02/04/18 20:59 01/07/18 20:21 Temazepam (Restoril) 15 mg HSPRN PRN ORAL Insomnia 01/05/18 21:00 01/12/18 20:59 German Mooney MD Jan 07, 2018 22:02
[2018-01-08 04:00] VITALS: BP 152/99
[2018-01-08 08:00] VITALS: BP 126/89
[2018-01-08] MEDS: Heparin 5000 units/ml inj SUBQ SCH ×2 (10:07→21:14)
[2018-01-08] MEDS: Ertapenem 1gm in NS 55ml IVPB SCH (10:29)
--- NOTE | 2018-01-08 11:19 | Infectious Diseases Prog Note ---
Assessment/Plan Assessment/Plan Assessment: R flank pain- chronic b/l calculus, possibly infected -CT abd/p: Distal right ureteral calculi, stable over multiple earlier studies dating back to 09/20/2014, again demonstrated. There is persistent right hydronephrosis and right renal atrophy. Nonobstructive right lower pole renal calculi are again demonstrated. Large left renal staghorn calculus, also present as far back as 2013. Mild right hydronephrosis but no ureteral calculi or hydroureter. Other nonobstructive left lower pole renal calculi are also evident. Gas bubbles within the left renal collecting system and bladder, markedly decreased from the previous 2016 exam. Uncertain as to whether these represent bladder instrumentation with reflux into the left renal collecting system, versus artifact due to infection with gas -forming organism. Correlate with clinical and laboratory findings. The bladder wall is also mildly thickened, unchanged from previously. Cystitis a possibility. Left renal cyst, also previously described. Cholelithiasis, new since prior study. Left basilar dependent pulmonary parenchymal atelectasis. Evidence of COPD, with hyperinflation and a single small bulla. Evidence of prior prostatectomy -u/a wbc 30-40, nit +, leuk +3; ucx >100K ESBL E.coli (S zozyn, nitrofurantoin , bactrim, ertapenem) -Bcx NTD Mild leukocytosis, resolevd -CXR no acute process -Xray R foot and L foot: no acute process recent possible UTI oct 2017, s/p Rx -u/a WBC TNTC- ucx >100k E. fecalis (S Vanco, amp), 30-40k mixed gram positive growth Chronic Hep C infection - hEp C VL 42K 10/2017 -Hep A Imm, Hep B Ab neg, HIV Neg History of recurrent urinary tract infection. History of osteomyelitis of the second left toe and distal phalanx. History of prostate cancer. History of renal stone and CKD. Dementia HTN CVA hx IVDA Plan: - Continue Ertapenem #/ for possible ESBL UTI -01/06 SP IV Vancomycin #2 -01/05 SP Ceftriaxone x1 -11/12 SP PO ampicillin #14 -f/u cx -Recommend uro evaluation- as long as patient has obstructive nephrolithiasis will continue to have recurrent UTIs -monitor CBC/BMP, temperatures -pain control -aspiration precautions. Thank you for this consultation. Will continue to follow along with you. Discussed with RN. Subjective Allergies: Uncoded Allergies: anesthesia (Allergy, Unknown, 07/04/14) Subjective afebrile no leukocytosis ucx grew ESBL Bcx NTD Objective Vital Signs Last 24 Hour Vital Signs Date Time Temp Pulse Resp B/P (MAP) Pulse Ox O2 Delivery O2 Flow Rate FiO2 01/08/18 08:00 97.9 98 18 126/89 97 Room Air 97.9 01/08/18 04:00 98.0 96 20 152/99 96 Room Air 98.0 01/07/18 20:00 97.0 83 20 137/88 95 Room Air 97.0 01/07/18 16:20 98.8 85 17 120/71 97 98.8 01/07/18 16:00 98.8 85 19 120/71 97 98.8 01/07/18 12:00 98.0 90 19 107/70 95 98.0 Height (Feet): 5 Height (Inches): 9.00 Weight (Pounds): 180 Objective General Appearance: no apparent distress, alert HEENT: normocephalic, atraumatic PERRL Neck: full range of motion Respiratory: chest non-tender, lungs clear, normal breath sounds, speaking full sentences Cardiovascular regular rate, rhythm, no edema Gastrointestinal: normal bowel sounds, non tender, soft Musculoskeletal: back normal, gait/station normal, normal range of motion, non- tender Neurologic: alert, responsive, motor strength/tone normal, sensory intact, normal gait, speech normal, grossly normal Skin: no rash, warm/dry, well hydrated, other - hyperpigmentation of the bilateral feet and ankles, consistent with PAD/ insufficiency- chronic. no obvious wounds, no erythema Microbiology Date/Time Source Procedure Growth Status 01/05/18 17:45 Blood Blood Culture - Preliminary NO GROWTH AFTER 48 HOURS Resulted 01/05/18 17:30 Blood Blood Culture - Preliminary NO GROWTH AFTER 48 HOURS Resulted 01/05/18 15:55 Urine,Clean Catch Urine Culture - Final Escherichia Coli - Esbl Complete Current Medications Medications (Trade) Dose Ordered Sig/Lucie Route PRN Reason Start Time Stop Time Status Last Admin Dose Admin Acetaminophen (Tylenol) 650 mg Q4H PRN ORAL T>100.5 01/05/18 19:15 02/04/18 19:14 Albuterol/ Ipratropium (Albuterol/ Ipratropium) 3 ml Q4H PRN HHN Shortness of Breath 01/05/18 19:15 01/10/18 19:14 Ertapenem 1 gm/ Sodium Chloride 55 ml @ 110 mls/hr DAILY IVPB 01/07/18 17:00 01/12/18 16:59 01/08/18 10:29 Haloperidol (Haldol) 5 mg Q4H PRN ORAL Agitation 01/05/18 19:15 02/04/18 19:14 01/06/18 20:53 Heparin Sodium (Porcine) (Heparin 5000 units/ml) 5,000 units EVERY 12 HOURS SUBQ 01/05/18 21:00 02/04/18 20:59 01/08/18 10:07 Mirtazapine (Remeron) 15 mg BEDTIME ORAL 01/05/18 21:00 02/04/18 20:59 01/07/18 20:21 Morphine Sulfate (Morphine Sulfate) 2 mg Q4H PRN IVP Moderate Pain (Pain Scale 4-6) 01/05/18 19:15 01/12/18 19:14 01/07/18 18:04 Ondansetron HCl (Zofran) 4 mg Q6H PRN IVP Nausea & Vomiting 01/05/18 19:15 02/04/18 19:14 Phenazopyridine HCl (Pyridium) 100 mg DAILYPRN PRN ORAL dysuria 01/05/18 19:15 02/04/18 19:14 Polyethylene Glycol (Miralax) 17 gm DAILYPRN PRN ORAL Constipation 01/05/18 19:15 02/04/18 19:14 Quetiapine Fumarate (SEROquel) 12.5 mg Q12HR ORAL 01/05/18 21:00 02/04/18 20:59 01/08/18 10:03 Temazepam (Restoril) 15 mg HSPRN PRN ORAL Insomnia 01/05/18 21:00 01/12/18 20:59 Janet Rowland M.D. Jan 08, 2018 11:19
[2018-01-08 11:46] VITALS: BP 149/75
[2018-01-08 11:48] VITALS: BP 121/74
[2018-01-08 16:16] VITALS: BP 122/72
[2018-01-08 18:47] LABS: CREATINE KINASE 44 U/L (26-308)
[2018-01-08 19:49] VITALS: BP 131/94
[2018-01-08 20:08] LABS: APPEARANCE,URINE SLIGHTLY CLOUDY; BILIRUBIN, URINE NEGATIVE (NEGATIVE); COLOR,URINE PALE YELLOW; GLUCOSE, URINE (UA) NEGATIVE (NEGATIVE); KETONES,URINE NEGATIVE (NEGATIVE); LEUKOCYTE ESTERASE ,URINE 3+ (NEGATIVE); NITRITE,URINE POSITIVE (NEGATIVE); PH,URINE 6 (4.5-8.0); PROTEIN,URINE 1+ (NEGATIVE); UROBILINOGEN,URINE NORMAL MG/DL (0.0-1.0)
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
--- NOTE | 2018-01-08 21:22 | General Progress Note ---
Assessment/Plan Status: stable Assessment/Plan Dementia with behavioral disturbance mdd -seroquel 25 mg bid -ro Subjective Date patient seen: Jan 08, 2018 Neurologic/Psychiatric: Reports: anxiety, depressed Allergies: Uncoded Allergies: anesthesia (Allergy, Unknown, 07/04/14) Subjective the pt is calmer family at bedside Objective Last 24 Hour Vital Signs Date Time Temp Pulse Resp B/P (MAP) Pulse Ox O2 Delivery O2 Flow Rate FiO2 01/08/18 19:49 98.0 73 18 131/94 97 98.0 01/08/18 16:16 97.9 89 17 122/72 97 Room Air 97.9 01/08/18 11:48 98.9 78 18 121/74 Room Air 98.9 01/08/18 11:46 98.1 88 19 149/75 96 Room Air 98.1 01/08/18 08:00 97.9 98 18 126/89 97 Room Air 97.9 01/08/18 04:00 98.0 96 20 152/99 96 Room Air 98.0 Intake and Output 01/07/18 01/08/18 19:00 07:00 Intake Total 590 ml 350 ml Output Total 1100 ml Balance 590 ml -750 ml Intake Oral 480 ml IV Total 110 ml Tube Feeding 350 ml Output Urine Total 1100 ml # Voids 2 3 Laboratory Tests 01/08/18 16:40: Uric Acid 8.0H, Total Creatine Kinase 44 01/08/18 18:57: Urine Color Pale yellow, Urine Appearance Slightly cloudy, Urine pH 6, Urine Specific [place] 1.015, Urine Protein 1+H, Urine Glucose (UA) Negative, Urine Ketones Negative, Urine Occult Blood 1+H, Urine Nitrite PositiveH, Urine Bilirubin Negative, Urine Urobilinogen Normal, Urine Leukocyte Esterase 3+H, Urine RBC 5-10H, Urine WBC TntcH, Urine Squamous Epithelial Cells ModerateH, Urine Bacteria ModerateH, Urine Eosinophils None seen, Urine Random Sodium 112H , Urine Potassium Timed 35 Height (Feet): 5 Height (Inches): 9.00 Weight (Pounds): 180 General Appearance: no apparent distress, alert, confused Mckenna Bermudez M.D. Jan 08, 2018 21:22
--- NOTE | 2018-01-08 21:23 | Psych Consult Progress Note ---
Psych Consult Progress Note Consult 01/07/18 Dementia with behavioral disturbance mdd -seroquel 25 mg bid Vital Signs Last 24 Hour Vital Signs Date Time Temp Pulse Resp B/P (MAP) Pulse Ox O2 Delivery O2 Flow Rate FiO2 01/08/18 19:49 98.0 73 18 131/94 97 98.0 01/08/18 16:16 97.9 89 17 122/72 97 Room Air 97.9 01/08/18 11:48 98.9 78 18 121/74 Room Air 98.9 01/08/18 11:46 98.1 88 19 149/75 96 Room Air 98.1 01/08/18 08:00 97.9 98 18 126/89 97 Room Air 97.9 01/08/18 04:00 98.0 96 20 152/99 96 Room Air 98.0 Labs Laboratory Tests Test 01/08/18 16:40 01/08/18 18:57 Uric Acid 8.0 MG/DL (2.6-7.2) H Total Creatine Kinase 44 U/L (26-308) Urine Color Pale yellow Urine Appearance Slightly cloudy Urine pH 6 (4.5-8.0) Urine Specific [place] 1.015 (1.005-1.035) Urine Protein 1+ (NEGATIVE) H Urine Glucose (UA) Negative (NEGATIVE) Urine Ketones Negative (NEGATIVE) Urine Occult Blood 1+ (NEGATIVE) H Urine Nitrite Positive (NEGATIVE) H Urine Bilirubin Negative (NEGATIVE) Urine Urobilinogen Normal MG/DL (0.0-1.0) Urine Leukocyte Esterase 3+ (NEGATIVE) H Urine RBC 5-10 /HPF (0 - 0) H Urine WBC Tntc /HPF (0 - 0) H Urine Squamous Epithelial Cells Moderate /LPF (NONE/OCC) H Urine Bacteria Moderate /HPF (NONE) H Urine Eosinophils None seen Urine Random Sodium 112 mmol/L (20-110) H Urine Potassium Timed 35 mmol/L (12-62) Medications Current Medications Medications (Trade) Dose Ordered Sig/Lucie Route PRN Reason Start Time Stop Time Status Last Admin Dose Admin Acetaminophen (Tylenol) 650 mg Q4H PRN ORAL T>100.5 01/05/18 19:15 02/04/18 19:14 Albuterol/ Ipratropium (Albuterol/ Ipratropium) 3 ml Q4H PRN HHN Shortness of Breath 01/05/18 19:15 01/10/18 19:14 Ertapenem 1 gm/ Sodium Chloride 55 ml @ 110 mls/hr DAILY IVPB 01/07/18 17:00 01/12/18 16:59 01/08/18 10:29 Haloperidol (Haldol) 5 mg Q4H PRN ORAL Agitation 01/05/18 19:15 02/04/18 19:14 01/08/18 12:46 Heparin Sodium (Porcine) (Heparin 5000 units/ml) 5,000 units EVERY 12 HOURS SUBQ 01/05/18 21:00 02/04/18 20:59 01/08/18 10:07 Mirtazapine (Remeron) 15 mg BEDTIME ORAL 01/05/18 21:00 02/04/18 20:59 01/07/18 20:21 Morphine Sulfate (Morphine Sulfate) 2 mg Q4H PRN IVP Moderate Pain (Pain Scale 4-6) 01/05/18 19:15 01/12/18 19:14 01/07/18 18:04 Ondansetron HCl (Zofran) 4 mg Q6H PRN IVP Nausea & Vomiting 01/05/18 19:15 02/04/18 19:14 Phenazopyridine HCl (Pyridium) 100 mg DAILYPRN PRN ORAL dysuria 01/05/18 19:15 02/04/18 19:14 Polyethylene Glycol (Miralax) 17 gm DAILYPRN PRN ORAL Constipation 01/05/18 19:15 02/04/18 19:14 Quetiapine Fumarate (SEROquel) 12.5 mg Q12HR ORAL 01/05/18 21:00 02/04/18 20:59 01/08/18 10:03 Temazepam (Restoril) 15 mg HSPRN PRN ORAL Insomnia 01/05/18 21:00 01/12/18 20:59 Mckenna Bermudez M.D. Jan 08, 2018 21:23
[2018-01-08] MEDS: Morphine Sulfate 2mg/ml Inj IVP PRN (21:29)
[2018-01-09] VITALS: BP 126/70
[2018-01-09 07:48] VITALS: BP 121/81
[2018-01-09 07:50] LABS: BASOPHILS % (AUTO) 0.9 % (0.0-2.0); EOSINOPHILS % (AUTO) 2.5 % (0.0-3.0); HEMATOCRIT 35.6 % (42.0-52.0); HEMOGLOBIN 11.9 G/DL (14.2-18.0); LYMPHOCYTES % (AUTO) 50.7 % (20.0-45.0); MEAN CORPUSCULAR VOLUME 93 FL (80-99); MONOCYTES % (AUTO) 8.9 % (1.0-10.0); NEUTROPHILS % (AUTO) 36.9 % (45.0-75.0); PLATELET COUNT 272 K/UL (150-450); RED BLOOD COUNT 3.84 M/UL (4.70-6.10); RED CELL DISTRIBUTION WIDTH 13.4 % (11.6-14.8); WHITE BLOOD COUNT 8.2 K/UL (4.8-10.8)
[2018-01-09] MEDS: Ertapenem 1gm in NS 55ml IVPB SCH (08:20)
[2018-01-09] MEDS: Morphine Sulfate 2mg/ml Inj IVP PRN (08:20)
[2018-01-09] MEDS: Heparin 5000 units/ml inj SUBQ SCH ×2 (08:22→20:42)
--- NOTE | 2018-01-09 08:28 | Pulmonology Progress Note ---
Assessment/Plan Assessment/Plan ASSESSMENT Pyelo with E coli ESBL CKD HTN Hx of CVA COPD dementia bilateral nephrolithiasis with persistent R hydronephrosis/obstructive Chronic hep C infection hx of IVDA Hx of prostate Ca L foot 2 nd toe amputation Hx of osteo L 2 nd toe and distal phalanx PLAN OF CARE MS floor abx ID follows urine cx + E coli ESBL CT A/P bilateral nephrolithiasis, L staghorn calculus, persistent R hydro urology eval for obstructive nephrolithiasis, contributing to recurrent UTI -dr Luna called Pyridium Pain management X ray L foot no acute process BP management DVT prophylaxis O2 HHN prn CXR negative monitor renal parameters, lytes , avoid nephrotoxic case discussed and evaluated by supervising physician Subjective Allergies: Uncoded Allergies: anesthesia (Allergy, Unknown, 07/04/14) Subjective afebrile, leucocytosis resolved pain earlier, controlled with current analgesic regimen Objective Last 24 Hour Vital Signs Date Time Temp Pulse Resp B/P (MAP) Pulse Ox O2 Delivery O2 Flow Rate FiO2 01/09/18 07:48 98.6 90 18 121/81 Room Air 98.6 01/09/18 00:00 97.9 80 18 126/70 96 97.9 01/08/18 19:49 98.0 73 18 131/94 97 98.0 01/08/18 16:16 97.9 89 17 122/72 97 Room Air 97.9 01/08/18 11:48 98.9 78 18 121/74 Room Air 98.9 01/08/18 11:46 98.1 88 19 149/75 96 Room Air 98.1 Intake and Output 01/08/18 01/09/18 19:00 07:00 Intake Total 260 ml Balance 260 ml Intake Oral 260 ml # Voids 3 2 General Appearance: no acute distress HEENT: normocephalic, atraumatic, anicteric Respiratory/Chest: lungs clear - with moderate air exchange , no respiratory distress, no accessory muscle use Cardiovascular: normal peripheral pulses, normal rate, no JVD Abdomen: soft, non tender Extremities: no edema, other - left foot 2 nd toe amputated Neurologic/Psychiatric: alert, responsive Musculoskeletal: normal muscle bulk Laboratory Tests 01/08/18 16:40: Uric Acid 8.0H, Total Creatine Kinase 44 01/08/18 18:57: Urine Color Pale yellow, Urine Appearance Slightly cloudy, Urine pH 6, Urine Specific [place] 1.015, Urine Protein 1+H, Urine Glucose (UA) Negative, Urine Ketones Negative, Urine Occult Blood 1+H, Urine Nitrite PositiveH, Urine Bilirubin Negative, Urine Urobilinogen Normal, Urine Leukocyte Esterase 3+H, Urine RBC 5-10H, Urine WBC TntcH, Urine Squamous Epithelial Cells ModerateH, Urine Bacteria ModerateH, Urine Eosinophils None seen, Urine Random Sodium 112H , Urine Potassium Timed 35 01/09/18 06:10: White Blood Count 8.2, Red Blood Count 3.84L, Hemoglobin 11.9L, Hematocrit 35.6L , Mean Corpuscular Volume 93, Mean Corpuscular Hemoglobin 30.9, Mean Corpuscular Hemoglobin Concent 33.3, Red Cell Distribution Width 13.4, Platelet Count 272, Mean Platelet Volume 6.4L, Neutrophils (%) (Auto) 36.9L, Lymphocytes (%) (Auto) 50.7H, Monocytes (%) (Auto) 8.9, Eosinophils (%) (Auto) 2.5, Basophils (%) (Auto) 0.9, Sodium Level [Pending], Potassium Level [Pending], Chloride Level [Pending], Carbon Dioxide Level [Pending], Blood Urea Nitrogen [ Pending], Creatinine [Pending], Estimat Glomerular Filtration Rate [Pending], Glucose Level [Pending], Calcium Level [Pending], Phosphorus Level [Pending], Magnesium Level [Pending], Total Bilirubin [Pending], Aspartate Amino Transf ( AST/SGOT) [Pending], Alanine Aminotransferase (ALT/SGPT) [Pending], Alkaline Phosphatase [Pending], Total Protein [Pending], Albumin [Pending], Globulin [ Pending] Current Medications Medications (Trade) Dose Ordered Sig/Lucie Route PRN Reason Start Time Stop Time Status Last Admin Dose Admin Acetaminophen (Tylenol) 650 mg Q4H PRN ORAL T>100.5 01/05/18 19:15 02/04/18 19:14 Albuterol/ Ipratropium (Albuterol/ Ipratropium) 3 ml Q4H PRN HHN Shortness of Breath 01/05/18 19:15 01/10/18 19:14 Ertapenem 1 gm/ Sodium Chloride 55 ml @ 110 mls/hr DAILY IVPB 01/07/18 17:00 01/12/18 16:59 01/09/18 08:20 Haloperidol (Haldol) 5 mg Q4H PRN ORAL Agitation 01/05/18 19:15 02/04/18 19:14 01/08/18 12:46 Heparin Sodium (Porcine) (Heparin 5000 units/ml) 5,000 units EVERY 12 HOURS SUBQ 01/05/18 21:00 02/04/18 20:59 01/09/18 08:22 Mirtazapine (Remeron) 15 mg BEDTIME ORAL 01/05/18 21:00 02/04/18 20:59 01/08/18 21:14 Morphine Sulfate (Morphine Sulfate) 2 mg Q4H PRN IVP Moderate Pain (Pain Scale 4-6) 01/05/18 19:15 01/12/18 19:14 01/09/18 08:20 Ondansetron HCl (Zofran) 4 mg Q6H PRN IVP Nausea & Vomiting 01/05/18 19:15 02/04/18 19:14 Phenazopyridine HCl (Pyridium) 100 mg DAILYPRN PRN ORAL dysuria 01/05/18 19:15 02/04/18 19:14 Polyethylene Glycol (Miralax) 17 gm DAILYPRN PRN ORAL Constipation 01/05/18 19:15 02/04/18 19:14 Quetiapine Fumarate (SEROquel) 12.5 mg Q12HR ORAL 01/05/18 21:00 02/04/18 20:59 01/09/18 08:19 Temazepam (Restoril) 15 mg HSPRN PRN ORAL Insomnia 01/05/18 21:00 01/12/18 20:59 Baylee Montero NP ([facility]) Jan 09, 2018 08:28
[2018-01-09 08:32] LABS: ALANINE AMINOTRANSFERASE 24 U/L (12-78); ALBUMIN 2.9 G/DL (3.4-5.0); ALBUMIN/GLOBULIN RATIO 0.6 (1.0-2.7); ALKALINE PHOSPHATASE 140 U/L (46-116); ANION GAP 10 mmol/L (5-15); ASPARTATE AMINO TRANSFERASE 27 U/L (15-37); BILIRUBIN,TOTAL 0.6 MG/DL (0.2-1.0); BLOOD UREA NITROGEN 33 mg/dL (7-18); CALCIUM 8.9 MG/DL (8.5-10.1); CARBON DIOXIDE 23 MMOL/L (21-32); CHLORIDE 107 MMOL/L (98-107); CREATININE 1.8 MG/DL (0.55-1.30); POTASSIUM 4.7 MMOL/L (3.5-5.1); SODIUM 140 MMOL/L (136-145)
[2018-01-09 09:21] LABS: PHOSPHORUS 3.2 MG/DL (2.5-4.9)
[2018-01-09 11:11] VITALS: BP 125/70
[2018-01-09] MEDS ORDERED: Albuterol/Ipratropium 3ml neb HHN PRN (15:15)
--- NOTE | 2018-01-09 15:45 | Infectious Diseases Prog Note ---
Assessment/Plan Assessment/Plan Assessment: R flank pain- chronic b/l calculus, possibly infected -CT abd/p: Distal right ureteral calculi, stable over multiple earlier studies dating back to 09/20/2014, again demonstrated. There is persistent right hydronephrosis and right renal atrophy. Nonobstructive right lower pole renal calculi are again demonstrated. Large left renal staghorn calculus, also present as far back as 2013. Mild right hydronephrosis but no ureteral calculi or hydroureter. Other nonobstructive left lower pole renal calculi are also evident. Gas bubbles within the left renal collecting system and bladder, markedly decreased from the previous 2016 exam. Uncertain as to whether these represent bladder instrumentation with reflux into the left renal collecting system, versus artifact due to infection with gas -forming organism. Correlate with clinical and laboratory findings. The bladder wall is also mildly thickened, unchanged from previously. Cystitis a possibility. Left renal cyst, also previously described. Cholelithiasis, new since prior study. Left basilar dependent pulmonary parenchymal atelectasis. Evidence of COPD, with hyperinflation and a single small bulla. Evidence of prior prostatectomy -u/a wbc 30-40, nit +, leuk +3; ucx >100K ESBL E.coli (S zozyn, nitrofurantoin , bactrim, ertapenem); repeat ucx p -Bcx NTD Mild leukocytosis, resolevd -CXR no acute process -Xray R foot and L foot: no acute process recent possible UTI oct 2017, s/p Rx -u/a WBC TNTC- ucx >100k E. fecalis (S Vanco, amp), 30-40k mixed gram positive growth Chronic Hep C infection - hEp C VL 42K 10/2017 -Hep A Imm, Hep B Ab neg, HIV Neg History of recurrent urinary tract infection. History of osteomyelitis of the second left toe and distal phalanx. History of prostate cancer. History of renal stone and CKD. Dementia HTN CVA hx IVDA Plan: - Continue Ertapenem #12/27 for possible ESBL UTI -01/06 SP IV Vancomycin #2 -01/05 SP Ceftriaxone x1 -11/12 SP PO ampicillin #14 -f/u cx -Recommend uro evaluation- as long as patient has obstructive nephrolithiasis will continue to have recurrent UTIs -monitor CBC/BMP, temperatures -pain control -aspiration precautions. Thank you for this consultation. Will continue to follow along with you. Discussed with RN. Subjective Allergies: Uncoded Allergies: anesthesia (Allergy, Unknown, 07/04/14) Subjective afebrile no leukocytosis repeat ucx p Bcx NTD Objective Vital Signs Last 24 Hour Vital Signs Date Time Temp Pulse Resp B/P (MAP) Pulse Ox O2 Delivery O2 Flow Rate FiO2 01/09/18 11:11 97.9 74 18 125/70 98 Room Air 97.9 01/09/18 07:48 98.6 90 18 121/81 Room Air 98.6 01/09/18 00:00 97.9 80 18 126/70 96 97.9 01/08/18 19:49 98.0 73 18 131/94 97 98.0 01/08/18 16:16 97.9 89 17 122/72 97 Room Air 97.9 Height (Feet): 5 Height (Inches): 9.00 Weight (Pounds): 180 Objective General Appearance: no apparent distress, alert HEENT: normocephalic, atraumatic PERRL Neck: full range of motion Respiratory: chest non-tender, lungs clear, normal breath sounds, speaking full sentences Cardiovascular regular rate, rhythm, no edema Gastrointestinal: normal bowel sounds, non tender, soft Musculoskeletal: back normal, gait/station normal, normal range of motion, non- tender Neurologic: alert, responsive, motor strength/tone normal, sensory intact, normal gait, speech normal, grossly normal Skin: no rash, warm/dry, well hydrated, other - hyperpigmentation of the bilateral feet and ankles, consistent with PAD/ insufficiency- chronic. no obvious wounds, no erythema Microbiology Date/Time Source Procedure Growth Status 01/08/18 18:57 Urine,Clean Catch Urine Culture - Preliminary Resulted Laboratory Tests Test 01/08/18 16:40 01/08/18 18:57 01/09/18 06:10 Uric Acid 8.0 MG/DL (2.6-7.2) H Total Creatine Kinase 44 U/L (26-308) Urine Color Pale yellow Urine Appearance Slightly cloudy Urine pH 6 (4.5-8.0) Urine Specific [place] 1.015 (1.005-1.035) Urine Protein 1+ (NEGATIVE) H Urine Glucose (UA) Negative (NEGATIVE) Urine Ketones Negative (NEGATIVE) Urine Occult Blood 1+ (NEGATIVE) H Urine Nitrite Positive (NEGATIVE) H Urine Bilirubin Negative (NEGATIVE) Urine Urobilinogen Normal MG/DL (0.0-1.0) Urine Leukocyte Esterase 3+ (NEGATIVE) H Urine RBC 5-10 /HPF (0 - 0) H Urine WBC Tntc /HPF (0 - 0) H Urine Squamous Epithelial Cells Moderate /LPF (NONE/OCC) H Urine Bacteria Moderate /HPF (NONE) H Urine Eosinophils None seen Urine Random Sodium 112 mmol/L (20-110) H Urine Potassium Timed 35 mmol/L (12-62) White Blood Count 8.2 K/UL (4.8-10.8) Red Blood Count 3.84 M/UL (4.70-6.10) L Hemoglobin 11.9 G/DL (14.2-18.0) L Hematocrit 35.6 % (42.0-52.0) L Mean Corpuscular Volume 93 FL (80-99) Mean Corpuscular Hemoglobin 30.9 PG (27.0-31.0) Mean Corpuscular Hemoglobin Concent 33.3 G/DL (32.0-36.0) Red Cell Distribution Width 13.4 % (11.6-14.8) Platelet Count 272 K/UL (150-450) Mean Platelet Volume 6.4 FL (6.5-10.1) L Neutrophils (%) (Auto) 36.9 % (45.0-75.0) L Lymphocytes (%) (Auto) 50.7 % (20.0-45.0) H Monocytes (%) (Auto) 8.9 % (1.0-10.0) Eosinophils (%) (Auto) 2.5 % (0.0-3.0) Basophils (%) (Auto) 0.9 % (0.0-2.0) Sodium Level 140 MMOL/L (136-145) Potassium Level 4.7 MMOL/L (3.5-5.1) Chloride Level 107 MMOL/L (98-107) Carbon Dioxide Level 23 MMOL/L (21-32) Anion Gap 10 mmol/L (5-15) Blood Urea Nitrogen 33 mg/dL (7-18) H Creatinine 1.8 MG/DL (0.55-1.30) H Estimat Glomerular Filtration Rate 45.7 mL/min (>60) Glucose Level 80 MG/DL (74-106) Calcium Level 8.9 MG/DL (8.5-10.1) Phosphorus Level 3.2 MG/DL (2.5-4.9) Magnesium Level 1.8 MG/DL (1.8-2.4) Total Bilirubin 0.6 MG/DL (0.2-1.0) Aspartate Amino Transf (AST/SGOT) 27 U/L (15-37) Alanine Aminotransferase (ALT/SGPT) 24 U/L (12-78) Alkaline Phosphatase 140 U/L (46-116) H Total Protein 7.8 G/DL (6.4-8.2) Albumin 2.9 G/DL (3.4-5.0) L Globulin 4.9 g/dL Albumin/Globulin Ratio 0.6 (1.0-2.7) L Current Medications Medications (Trade) Dose Ordered Sig/Lucie Route PRN Reason Start Time Stop Time Status Last Admin Dose Admin Acetaminophen (Tylenol) 650 mg Q4H PRN ORAL T>100.5 01/05/18 19:15 02/04/18 19:14 Albuterol/ Ipratropium (Albuterol/ Ipratropium) 3 ml Q4H PRN HHN Shortness of Breath 01/09/18 15:15 01/14/18 15:15 Ertapenem 1 gm/ Sodium Chloride 55 ml @ 110 mls/hr DAILY IVPB 01/07/18 17:00 01/12/18 16:59 01/09/18 08:20 Haloperidol (Haldol) 5 mg Q4H PRN ORAL Agitation 01/05/18 19:15 02/04/18 19:14 01/08/18 12:46 Heparin Sodium (Porcine) (Heparin 5000 units/ml) 5,000 units EVERY 12 HOURS SUBQ 01/05/18 21:00 02/04/18 20:59 01/09/18 08:22 Mirtazapine (Remeron) 15 mg BEDTIME ORAL 01/05/18 21:00 02/04/18 20:59 01/08/18 21:14 Morphine Sulfate (Morphine Sulfate) 2 mg Q4H PRN IVP Moderate Pain (Pain Scale 4-6) 01/05/18 19:15 01/12/18 19:14 01/09/18 08:20 Ondansetron HCl (Zofran) 4 mg Q6H PRN IVP Nausea & Vomiting 01/05/18 19:15 02/04/18 19:14 Phenazopyridine HCl (Pyridium) 100 mg DAILYPRN PRN ORAL dysuria 01/05/18 19:15 02/04/18 19:14 Polyethylene Glycol (Miralax) 17 gm DAILYPRN PRN ORAL Constipation 01/05/18 19:15 02/04/18 19:14 Quetiapine Fumarate (SEROquel) 12.5 mg TID ORAL 01/09/18 18:00 01/17/18 17:59 Temazepam (Restoril) 15 mg HSPRN PRN ORAL Insomnia 01/05/18 21:00 01/12/18 20:59 Janet Rowland M.D. Jan 09, 2018 15:45
[2018-01-09 16:10] VITALS: BP 118/79
[2018-01-09 20:00] VITALS: BP 127/90
--- NOTE | 2018-01-09 22:15 | Consultation ---
DATE OF CONSULTATION: 01/09/2018 UROLOGY CONSULTATION CONSULTING PHYSICIAN: Floyd Luna M.D. CHIEF COMPLAINT: I was asked by Dr. Mooney to evaluate this 67-year-old unfortunate gentleman regarding history of longstanding kidney stones. Briefly, the patient has a history of dementia and previous stroke. He was brought to the emergency room secondary to agitation. He has a history of long-standing right ureteral stones with right renal atrophy, which has resulted in . He also has a staghorn stone in the left kidney, which is not causing complete obstruction, however. Given the above, I was asked to evaluate the patient. The stones have been demonstrated on CT scan here dating as far back as 2013. PAST MEDICAL HISTORY: 1. Dementia. 2. Stroke. 3. Osteomyelitis. 4. Chronic kidney disease. 5. Long-standing nephrolithiasis. 6. Drug abuse. 7. Methadone maintenance therapy program. MEDICATIONS: Please see chart for current medications administration details. ALLERGIES: No known drug allergies. SOCIAL HISTORY: Notable for previous substance abuse. FAMILY HISTORY: Noncontributory. REVIEW OF SYSTEMS: A 12-system review of systems is essentially unremarkable outside what is described above, although it is difficult to get the patient to cooperate with questioning properly. PHYSICAL EXAMINATION: GENERAL: The patient is an older gentleman, awake and somewhat alert, in no obvious distress. Not oriented. HEENT: NC/AT. EOMI. NECK: Supple. Oropharynx clear. Chest within normal limits. ABDOMEN: Soft, flat, nontender, and nondistended. EXTREMITIES: Normal, well perfused. No cyanosis, clubbing, or edema. BACK: No CVA tenderness to percussion. NEUROLOGIC: Notable for dementia. GENITOURINARY: Reveals normal male external genitalia. LABORATORY DATA: White blood cell count 8.2, down from 12.9 on admission; hematocrit 35.6; platelets 272. Sodium 140, potassium 4.7, chloride 107, bicarbonate 23, BUN 33, creatinine 1.8, glucose 80, calcium 8.9. LFTs within normal limits. Alkaline phosphatase 140. Urinalysis, specific gravity 1.015, pH 6.0. Dip test notable 1+ protein, 1+ occult blood, positive nitrites, and 3+ leukocyte esterase. Microanalysis with 5 to 10 red blood cells per high-power field, too numerous to count white blood cells per high-power field, and moderate bacteria seen. Urine culture with ESBL E. coli, sensitive to imipenem and ertapenem. The patient is receiving meropenem. Blood culture is negative. DIAGNOSTIC IMAGING: CT scan of the abdomen and pelvis reveals distal right ureteral calculi, stable over multiple earlier studies dating back to September 2014 are again demonstrated. There is persistent right hydronephrosis and right renal atrophy likely secondary to same. There are nonobstructing right renal lower pole calculi seen. There is a large left renal staghorn calculus, also present as far back as 2013. There is mild left hydronephrosis, but no ureteral calculi or hydroureter. Other nonobstructing left lower pole renal calculi are also seen. There is markedly decreased gas bubbles in the left renal collecting system from the previous exam. The bladder is mildly thickened, also unchanged from previous exam. ASSESSMENT AND PLAN: In summary, the patient is an unfortunate 67-year-old gentleman with history of long-standing kidney stones with right renal atrophy secondary to ureteral obstruction on one side. He had the stones as far back as 2013 and apparently they have not changed on exam for several years. He now presents to the hospital with altered mental status and agitation. Workup revealed evidence of urinary tract infection. He is being treated with meropenem for the same. Physical exam reveals a demented gentleman, but otherwise is unremarkable. Laboratory data was notable for evidence of urinary tract infection. Given this patient's overall health and mental status, I do not feel intervention for his kidney stone is warranted at this time. His right kidney is already atrophic and the damage is done. The left kidney has a staghorn stone, but there is no current evidence of significant hydronephrosis or blockage and the previous episode of this pyelonephritis, which was demonstrated, has apparently resolved. Given that the patient would likely need a percutaneous nephrolithotomy for treatment of that stone, again I think this should be deferred in this demented elderly ill patient. Thank you for allowing me to participate in the care of this unfortunate gentleman. Once his infection is treated, I think he is stable for discharge home from a Urology standpoint. I will be happy to see him with you as needed. Floyd Luna M.D. DR: Killian JOB#: [id number] CC:
[2018-01-10] VITALS: BP 125/85
[2018-01-10 04:00] VITALS: BP 127/79
[2018-01-10 08:00] VITALS: BP 125/101
[2018-01-10] MEDS: Ertapenem 1gm in NS 55ml IVPB SCH ×2 (08:47→09:00)
[2018-01-10] MEDS: Heparin 5000 units/ml inj SUBQ SCH ×2 (08:48→20:16)
[2018-01-10 09:04] LABS: ANION GAP 6 mmol/L (5-15); BLOOD UREA NITROGEN 32 mg/dL (7-18); CALCIUM 9.2 MG/DL (8.5-10.1); CARBON DIOXIDE 28 MMOL/L (21-32); CHLORIDE 103 MMOL/L (98-107); CREATININE 2.1 MG/DL (0.55-1.30); POTASSIUM 4.4 MMOL/L (3.5-5.1); SODIUM 137 MMOL/L (136-145)
[2018-01-10 09:31] LABS: HEMATOCRIT 43.4 % (42.0-52.0); HEMOGLOBIN 14.3 G/DL (14.2-18.0); MEAN CORPUSCULAR VOLUME 93 FL (80-99); PLATELET COUNT 311 K/UL (150-450); RED BLOOD COUNT 4.66 M/UL (4.70-6.10); RED CELL DISTRIBUTION WIDTH 13.3 % (11.6-14.8); WHITE BLOOD COUNT 10.4 K/UL (4.8-10.8)
--- NOTE | 2018-01-10 11:53 | Infectious Diseases Prog Note ---
Assessment/Plan Assessment/Plan Assessment: R flank pain- chronic b/l calculus, possibly infected -CT abd/p: Distal right ureteral calculi, stable over multiple earlier studies dating back to 09/20/2014, again demonstrated. There is persistent right hydronephrosis and right renal atrophy. Nonobstructive right lower pole renal calculi are again demonstrated. Large left renal staghorn calculus, also present as far back as 2013. Mild right hydronephrosis but no ureteral calculi or hydroureter. Other nonobstructive left lower pole renal calculi are also evident. Gas bubbles within the left renal collecting system and bladder, markedly decreased from the previous 2016 exam. Uncertain as to whether these represent bladder instrumentation with reflux into the left renal collecting system, versus artifact due to infection with gas -forming organism. Correlate with clinical and laboratory findings. The bladder wall is also mildly thickened, unchanged from previously. Cystitis a possibility. Left renal cyst, also previously described. Cholelithiasis, new since prior study. Left basilar dependent pulmonary parenchymal atelectasis. Evidence of COPD, with hyperinflation and a single small bulla. Evidence of prior prostatectomy -u/a wbc 30-40, nit +, leuk +3; ucx >100K ESBL E.coli (S zozyn, nitrofurantoin , bactrim, ertapenem); repeat ucx 50-60k strep gamma hemolytic -Bcx NTD Mild leukocytosis, resolevd -CXR no acute process -Xray R foot and L foot: no acute process recent possible UTI oct 2017, s/p Rx -u/a WBC TNTC- ucx >100k E. fecalis (S Vanco, amp), 30-40k mixed gram positive growth Chronic Hep C infection - hEp C VL 42K 10/2017 -Hep A Imm, Hep B Ab neg, HIV Neg History of recurrent urinary tract infection. History of osteomyelitis of the second left toe and distal phalanx. History of prostate cancer. History of renal stone and CKD. Dementia HTN CVA hx IVDA Plan: - Continue Ertapenem #4/ for possible ESBL UTI; ok to discharge on this regimen via PIV -01/06 SP IV Vancomycin #2 -01/05 SP Ceftriaxone x1 -11/12 SP PO ampicillin #14 -f/u cx -uro eval- no intervention needed a this point -monitor CBC/BMP, temperatures -pain control -aspiration precautions. Thank you for this consultation. Will continue to follow along with you. Discussed with RN. Subjective Allergies: Uncoded Allergies: anesthesia (Allergy, Unknown, 07/04/14) Subjective afebrile no leukocytosis Bcx NTD Objective Vital Signs Last 24 Hour Vital Signs Date Time Temp Pulse Resp B/P (MAP) Pulse Ox O2 Delivery O2 Flow Rate FiO2 01/10/18 08:00 97.7 86 20 125/101 97 Room Air 97.7 01/10/18 07:48 73 18 01/10/18 04:00 97.5 70 20 127/79 97 97.5 01/10/18 00:00 97.4 80 19 125/85 98 Room Air 97.4 01/09/18 20:00 97.2 75 19 127/90 96 Room Air 97.2 01/09/18 19:44 75 18 01/09/18 16:10 98.1 72 19 118/79 Room Air 98.1 Height (Feet): 5 Height (Inches): 9.00 Weight (Pounds): 180 Objective General Appearance: no apparent distress, alert HEENT: normocephalic, atraumatic PERRL Neck: full range of motion Respiratory: chest non-tender, lungs clear, normal breath sounds, speaking full sentences Cardiovascular regular rate, rhythm, no edema Gastrointestinal: normal bowel sounds, non tender, soft Musculoskeletal: back normal, gait/station normal, normal range of motion, non- tender Neurologic: alert, responsive, motor strength/tone normal, sensory intact, normal gait, speech normal, grossly normal Skin: no rash, warm/dry, well hydrated, other - hyperpigmentation of the bilateral feet and ankles, consistent with PAD/ insufficiency- chronic. no obvious wounds, no erythema Microbiology Date/Time Source Procedure Growth Status 01/08/18 18:57 Urine,Clean Catch Urine Culture - Preliminary Strep Species, Gamma-Hemolytic Resulted Laboratory Tests Test 01/10/18 08:15 White Blood Count 10.4 K/UL (4.8-10.8) Red Blood Count 4.66 M/UL (4.70-6.10) L Hemoglobin 14.3 G/DL (14.2-18.0) Hematocrit 43.4 % (42.0-52.0) Mean Corpuscular Volume 93 FL (80-99) Mean Corpuscular Hemoglobin 30.6 PG (27.0-31.0) Mean Corpuscular Hemoglobin Concent 32.8 G/DL (32.0-36.0) Red Cell Distribution Width 13.3 % (11.6-14.8) Platelet Count 311 K/UL (150-450) Mean Platelet Volume 6.5 FL (6.5-10.1) Neutrophils (%) (Auto) % (45.0-75.0) Lymphocytes (%) (Auto) % (20.0-45.0) Monocytes (%) (Auto) % (1.0-10.0) Eosinophils (%) (Auto) % (0.0-3.0) Basophils (%) (Auto) % (0.0-2.0) Neutrophils % (Manual) Pending Lymphocytes % (Manual) Pending Platelet Estimate Pending Platelet Morphology Pending Sodium Level 137 MMOL/L (136-145) Potassium Level 4.4 MMOL/L (3.5-5.1) Chloride Level 103 MMOL/L (98-107) Carbon Dioxide Level 28 MMOL/L (21-32) Anion Gap 6 mmol/L (5-15) Blood Urea Nitrogen 32 mg/dL (7-18) H Creatinine 2.1 MG/DL (0.55-1.30) H Estimat Glomerular Filtration Rate 38.3 mL/min (>60) Glucose Level 120 MG/DL (74-106) H Calcium Level 9.2 MG/DL (8.5-10.1) Current Medications Medications (Trade) Dose Ordered Sig/Lucie Route PRN Reason Start Time Stop Time Status Last Admin Dose Admin Acetaminophen (Tylenol) 650 mg Q4H PRN ORAL T>100.5 01/05/18 19:15 02/04/18 19:14 Albuterol/ Ipratropium (Albuterol/ Ipratropium) 3 ml Q4H PRN HHN Shortness of Breath 01/09/18 15:15 01/14/18 15:15 Ertapenem 1 gm/ Sodium Chloride 55 ml @ 110 mls/hr DAILY IVPB 01/07/18 17:00 01/12/18 16:59 01/09/18 08:20 Haloperidol (Haldol) 5 mg Q4H PRN ORAL Agitation 01/05/18 19:15 02/04/18 19:14 01/10/18 08:47 Heparin Sodium (Porcine) (Heparin 5000 units/ml) 5,000 units EVERY 12 HOURS SUBQ 01/05/18 21:00 02/04/18 20:59 01/09/18 20:42 Mirtazapine (Remeron) 15 mg BEDTIME ORAL 01/05/18 21:00 02/04/18 20:59 01/09/18 20:41 Morphine Sulfate (Morphine Sulfate) 2 mg Q4H PRN IVP Moderate Pain (Pain Scale 4-6) 01/05/18 19:15 01/12/18 19:14 01/09/18 08:20 Ondansetron HCl (Zofran) 4 mg Q6H PRN IVP Nausea & Vomiting 01/05/18 19:15 02/04/18 19:14 Phenazopyridine HCl (Pyridium) 100 mg DAILYPRN PRN ORAL dysuria 01/05/18 19:15 02/04/18 19:14 Polyethylene Glycol (Miralax) 17 gm DAILYPRN PRN ORAL Constipation 01/05/18 19:15 02/04/18 19:14 Quetiapine Fumarate (SEROquel) 12.5 mg TID ORAL 01/09/18 18:00 01/17/18 17:59 01/10/18 08:47 Temazepam (Restoril) 15 mg HSPRN PRN ORAL Insomnia 01/05/18 21:00 01/12/18 20:59 Janet Rowland M.D. Jan 10, 2018 11:53
[2018-01-10 12:00] VITALS: BP 134/79
--- NOTE | 2018-01-10 13:42 | Pulmonology Progress Note ---
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 Pyridium Pain management X ray L foot no acute process BP management DVT prophylaxis O2 HHN prn CXR negative monitor renal parameters, lytes , avoid nephrotoxic dc plan SNF vs home with HH for IV abx case discussed and evaluated by supervising physician case discussed and evaluated by supervising physician Subjective Allergies: Uncoded Allergies: anesthesia (Allergy, Unknown, 07/04/14) Subjective afebrile, leucocytosis resolved pain earlier, controlled with current analgesic regimen Objective Last 24 Hour Vital Signs Date Time Temp Pulse Resp B/P (MAP) Pulse Ox O2 Delivery O2 Flow Rate FiO2 01/10/18 12:00 97.2 101 20 134/79 97 Room Air 97.2 01/10/18 08:00 97.7 86 20 125/101 97 Room Air 97.7 01/10/18 07:48 73 18 01/10/18 04:00 97.5 70 20 127/79 97 97.5 01/10/18 00:00 97.4 80 19 125/85 98 Room Air 97.4 01/09/18 20:00 97.2 75 19 127/90 96 Room Air 97.2 01/09/18 19:44 75 18 01/09/18 16:10 98.1 72 19 118/79 Room Air 98.1 Intake and Output 01/09/18 01/10/18 19:00 07:00 Intake Total 120 ml Output Total 1900 ml Balance -1780 ml Intake Oral 120 ml Output Urine Total 1900 ml # Voids 4 Objective General Appearance: no acute distress HEENT: normocephalic, atraumatic, anicteric Respiratory/Chest: lungs clear - with moderate air exchange , no respiratory distress, no accessory muscle use Cardiovascular: normal peripheral pulses, normal rate, no JVD Abdomen: soft, non tender Extremities: no edema, other - left foot 2 nd toe amputated Neurologic/Psychiatric: alert, responsive Musculoskeletal: normal muscle bulk Microbiology Date/Time Source Procedure Growth Status 01/08/18 18:57 Urine,Clean Catch Urine Culture - Preliminary Strep Species, Gamma-Hemolytic Resulted Laboratory Tests 01/10/18 08:15: White Blood Count 10.4, Red Blood Count 4.66L, Hemoglobin 14.3, Hematocrit 43.4 , Mean Corpuscular Volume 93, Mean Corpuscular Hemoglobin 30.6, Mean Corpuscular Hemoglobin Concent 32.8, Red Cell Distribution Width 13.3, Platelet Count 311, Mean Platelet Volume 6.5, Neutrophils (%) (Auto) , Lymphocytes (%) ( Auto) , Monocytes (%) (Auto) , Eosinophils (%) (Auto) , Basophils (%) (Auto) , Neutrophils % (Manual) [Pending], Lymphocytes % (Manual) [Pending], Platelet Estimate [Pending], Platelet Morphology [Pending], Sodium Level 137, Potassium Level 4.4, Chloride Level 103, Carbon Dioxide Level 28, Anion Gap 6, Blood Urea Nitrogen 32H, Creatinine 2.1H, Estimat Glomerular Filtration Rate 38.3, Glucose Level 120H, Calcium Level 9.2 Current Medications Medications (Trade) Dose Ordered Sig/Lucie Route PRN Reason Start Time Stop Time Status Last Admin Dose Admin Acetaminophen (Tylenol) 650 mg Q4H PRN ORAL T>100.5 01/05/18 19:15 02/04/18 19:14 Albuterol/ Ipratropium (Albuterol/ Ipratropium) 3 ml Q4H PRN HHN Shortness of Breath 01/09/18 15:15 01/14/18 15:15 Ertapenem 1 gm/ Sodium Chloride 110 ml @ 220 mls/hr DAILY IVPB 01/11/18 09:00 01/16/18 08:59 Haloperidol (Haldol) 5 mg Q4H PRN ORAL Agitation 01/05/18 19:15 02/04/18 19:14 01/10/18 08:47 Heparin Sodium (Porcine) (Heparin 5000 units/ml) 5,000 units EVERY 12 HOURS SUBQ 01/05/18 21:00 02/04/18 20:59 01/09/18 20:42 Mirtazapine (Remeron) 15 mg BEDTIME ORAL 01/05/18 21:00 02/04/18 20:59 01/09/18 20:41 Morphine Sulfate (Morphine Sulfate) 2 mg Q4H PRN IVP Moderate Pain (Pain Scale 4-6) 01/05/18 19:15 01/12/18 19:14 01/09/18 08:20 Ondansetron HCl (Zofran) 4 mg Q6H PRN IVP Nausea & Vomiting 01/05/18 19:15 02/04/18 19:14 Phenazopyridine HCl (Pyridium) 100 mg DAILYPRN PRN ORAL dysuria 01/05/18 19:15 02/04/18 19:14 Polyethylene Glycol (Miralax) 17 gm DAILYPRN PRN ORAL Constipation 01/05/18 19:15 02/04/18 19:14 Quetiapine Fumarate (SEROquel) 12.5 mg TID ORAL 01/09/18 18:00 01/17/18 17:59 01/10/18 13:04 Temazepam (Restoril) 15 mg HSPRN PRN ORAL Insomnia 01/05/18 21:00 01/12/18 20:59 [facility]adav NP Jan 10, 2018 13:42
[2018-01-10] MEDS ORDERED: Morphine Sulfate 2mg/ml Inj IVP PRN (15:15)
[2018-01-10 16:00] VITALS: BP 107/71
[2018-01-10] MEDS ORDERED: Tubing IV Secondary IV ONE (18:50)
[2018-01-10] MEDS ORDERED: NS 275ml ONE (18:50)
[2018-01-10 20:00] VITALS: BP 125/78
[2018-01-11] VITALS: BP 119/78
[2018-01-11 04:00] VITALS: BP 149/94
[2018-01-11 08:00] VITALS: BP 140/111
[2018-01-11] MEDS ORDERED: Ertapenem 1 GM in NS 110 ML IVPB SCH (09:00)
[2018-01-11] MEDS: Heparin 5000 units/ml inj SUBQ SCH ×2 (09:47→20:33)
--- NOTE | 2018-01-11 10:39 | Consultation ---
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
[2018-01-11] MEDS ORDERED: Metoprolol Tartrate 12.5mg TAB ORAL ONE (11:00)
--- NOTE | 2018-01-11 11:50 | Pulmonology Progress Note ---
Assessment/Plan Assessment/Plan ASSESSMENT Pyelo with E coli ESBL acute encephalopathy (likely due to UTI) on chronic dementia CKD HTN Hx of CVA COPD dementia with behavioral disturbances bilateral nephrolithiasis with persistent R hydronephrosis/obstructive Chronic hep C infection hx of IVDA Hx of prostate Ca L foot 2 nd toe amputation Hx of osteo L 2 nd toe and distal phalanx MDD PLAN OF CARE MS floor abx ID follows urine cx + E coli ESBL CT A/P bilateral nephrolithiasis, L staghorn calculus, persistent R hydro urology eval appreciated: per urologist- R kidney already damaged and for L staghorn calculus recommended to defer percutaneous nephrolithotomy for treatment of that stone in this demented elderly ill patient. Pyridium Pain management psych eval appreciated nephro eval monitor renal parameters, lytes, correct lytes as needed avoid nephrotoxic, X ray L foot no acute process BP management DVT prophylaxis O2 HHN prn CXR negative monitor renal parameters, lytes , avoid nephrotoxic dc plan SNF vs home with HH for IV abx case discussed and evaluated by supervising physician case discussed and evaluated by supervising physician Subjective Allergies: Uncoded Allergies: anesthesia (Allergy, Unknown, 07/04/14) Subjective afebrile, leucocytosis resolved confused Objective Last 24 Hour Vital Signs Date Time Temp Pulse Resp B/P (MAP) Pulse Ox O2 Delivery O2 Flow Rate FiO2 01/11/18 08:00 97.7 97 20 140/111 97 97.7 01/11/18 07:11 103 20 Room Air 21 01/11/18 04:00 98.0 88 20 149/94 100 98.0 01/11/18 00:00 97.9 98 20 119/78 97 97.9 01/10/18 20:00 98.0 102 21 125/78 94 98.0 01/10/18 19:13 78 18 01/10/18 16:00 97.7 94 20 107/71 99 97.7 01/10/18 12:00 97.2 101 20 134/79 97 Room Air 97.2 Intake and Output 01/10/18 01/11/18 19:00 07:00 Intake Total 200 ml Output Total 800 ml Balance 200 ml -800 ml Intake Oral 200 ml Output Urine Total 800 ml # Voids 2 Objective General Appearance: no acute distress HEENT: normocephalic, atraumatic, anicteric Respiratory/Chest: lungs clear - with moderate air exchange , no respiratory distress, no accessory muscle use Cardiovascular: normal peripheral pulses, normal rate, no JVD Abdomen: soft, non tender Extremities: no edema, other - left foot 2 nd toe amputated Neurologic/Psychiatric: alert, responsive Musculoskeletal: normal muscle bulk Microbiology Date/Time Source Procedure Growth Status 01/08/18 18:57 Urine,Clean Catch Urine Culture - Final Enterococcus Faecalis Complete Current Medications Medications (Trade) Dose Ordered Sig/Lucie Route PRN Reason Start Time Stop Time Status Last Admin Dose Admin Acetaminophen (Tylenol) 650 mg Q4H PRN ORAL T>100.5 01/05/18 19:15 02/04/18 19:14 Albuterol/ Ipratropium (Albuterol/ Ipratropium) 3 ml Q4H PRN HHN Shortness of Breath 01/09/18 15:15 01/14/18 15:15 Docusate Sodium (Colace) 100 mg TWICE A DAY ORAL 01/11/18 11:00 02/10/18 10:59 Ertapenem 1 gm/ Sodium Chloride 110 ml @ 220 mls/hr DAILY IVPB 01/11/18 09:00 01/16/18 08:59 Haloperidol (Haldol) 5 mg Q4H PRN ORAL Agitation 01/05/18 19:15 02/04/18 19:14 01/10/18 20:15 Heparin Sodium (Porcine) (Heparin 5000 units/ml) 5,000 units EVERY 12 HOURS SUBQ 01/05/18 21:00 02/04/18 20:59 01/11/18 09:47 Lansoprazole (Prevacid) 30 mg DAILY ORAL 01/11/18 10:45 02/10/18 10:44 Metoprolol Tartrate (Lopressor) 12.5 mg Q12HR ORAL 01/11/18 21:00 02/10/18 20:59 Mirtazapine (Remeron) 15 mg BEDTIME ORAL 01/05/18 21:00 02/04/18 20:59 01/10/18 20:15 Morphine Sulfate (Morphine Sulfate) 2 mg Q4H PRN IVP Moderate Pain (Pain Scale 4-6) 01/10/18 15:15 01/17/18 15:15 Ondansetron HCl (Zofran) 4 mg Q6H PRN IVP Nausea & Vomiting 01/05/18 19:15 02/04/18 19:14 Phenazopyridine HCl (Pyridium) 100 mg DAILYPRN PRN ORAL dysuria 01/05/18 19:15 02/04/18 19:14 Polyethylene Glycol (Miralax) 17 gm DAILYPRN PRN ORAL Constipation 01/05/18 19:15 02/04/18 19:14 Quetiapine Fumarate (SEROquel) 12.5 mg TID ORAL 01/09/18 18:00 01/17/18 17:59 01/11/18 09:42 Tamsulosin HCl (Flomax) 0.4 mg BEDTIME ORAL 01/11/18 21:00 02/10/18 20:59 Winston ([facility])Baylee NP Jan 11, 2018 11:50
[2018-01-11] MEDS: Docusate 100mg cap ORAL SCH ×2 (11:59→17:43)
[2018-01-11 12:00] VITALS: BP 132/88
[2018-01-11 15:59] VITALS: BP 148/91
[2018-01-11] MEDS: Bactrim SS Tab ORAL SCH (17:44)
[2018-01-11 20:00] VITALS: BP 157/100
[2018-01-11] MEDS: Tamsulosin 0.4mg cap ORAL SCH (20:32)
[2018-01-11] MEDS: Metoprolol Tartrate 12.5mg TAB ORAL SCH (20:36)
[2018-01-12] VITALS (8 sets, daily range): BP systolic 90–132; BP diastolic 60–87
[2018-01-12] MEDS ORDERED: Morphine Sulfate 2mg/ml Inj IM PRN (02:00)
[2018-01-12] MEDS: Metoprolol Tartrate 12.5mg TAB ORAL SCH ×3 (09:00→21:00)
[2018-01-12 09:14] LABS: HEMATOCRIT 40.5 % (42.0-52.0); HEMOGLOBIN 13.6 G/DL (14.2-18.0); MEAN CORPUSCULAR VOLUME 92 FL (80-99); PLATELET COUNT 280 K/UL (150-450); RED BLOOD COUNT 4.39 M/UL (4.70-6.10); RED CELL DISTRIBUTION WIDTH 13.3 % (11.6-14.8)
--- NOTE | 2018-01-12 09:37 | Pulmonology Progress Note ---
Assessment/Plan Assessment/Plan ASSESSMENT Pyelo with E coli ESBL acute encephalopathy (likely due to UTI) on chronic dementia CKD HTN Hx of CVA COPD dementia with behavioral disturbances bilateral nephrolithiasis with persistent R hydronephrosis/obstructive Chronic hep C infection hx of IVDA Hx of prostate Ca L foot 2 nd toe amputation Hx of osteo L 2 nd toe and distal phalanx MDD hyperkalemia PLAN OF CARE MS floor abx ID follows urine cx + E coli ESBL CT A/P bilateral nephrolithiasis, L staghorn calculus, persistent R hydro urology eval appreciated: per urologist- R kidney already damaged and for L staghorn calculus recommended to defer percutaneous nephrolithotomy for treatment of that stone in this demented elderly ill patient. Pyridium Pain management psych eval appreciated nephro eval monitor renal parameters, lytes, correct lytes as needed avoid nephrotoxic, labs pending for today X ray L foot no acute process podiatry eval BP management DVT prophylaxis O2 HHN prn CXR negative monitor renal parameters, lytes , avoid nephrotoxic dc plan SNF vs home with HH for IV abx case discussed and evaluated by supervising physician addendum> K-5.4 in setting of chronic kidney disease give Kayexalate up with lytes in am Subjective Allergies: Uncoded Allergies: anesthesia (Allergy, Unknown, 07/04/14) Subjective afebrile, leucocytosis resolved confused at the bedside labs pending for this am Objective Last 24 Hour Vital Signs Date Time Temp Pulse Resp B/P (MAP) Pulse Ox O2 Delivery O2 Flow Rate FiO2 01/12/18 08:02 97.7 95 18 108/73 98 97.7 01/12/18 07:10 92 18 Room Air 21 01/12/18 04:00 98.0 78 20 132/87 97 98.0 01/11/18 22:51 84 20 Room Air 21 01/11/18 20:36 87 148/91 01/11/18 20:00 98.6 87 20 157/100 96 98.6 01/11/18 15:59 97.9 87 20 148/91 97 Room Air 97.9 01/11/18 12:00 97.3 88 20 132/88 93 97.3 01/11/18 11:59 97 140/111 Intake and Output 01/11/18 01/12/18 19:00 07:00 Intake Total 240 ml Output Total 1050 ml Balance 240 ml -1050 ml Intake Oral 240 ml Output Urine Total 1050 ml # Voids 4 8 Objective General Appearance: no acute distress HEENT: normocephalic, atraumatic, anicteric Respiratory/Chest: lungs clear - with moderate air exchange , no respiratory distress, no accessory muscle use Cardiovascular: normal peripheral pulses, normal rate, no JVD Abdomen: soft, non tender Extremities: no edema, left foot 2 nd toe amputated Neurologic/Psychiatric: alert, responsive Musculoskeletal: normal muscle bulk Laboratory Tests 01/12/18 08:45: White Blood Count 10.0, Red Blood Count 4.39L, Hemoglobin 13.6L, Hematocrit 40.5L, Mean Corpuscular Volume 92, Mean Corpuscular Hemoglobin 30.9, Mean Corpuscular Hemoglobin Concent 33.5, Red Cell Distribution Width 13.3, Platelet Count 280, Mean Platelet Volume 6.3L, Neutrophils (%) (Auto) , Lymphocytes (%) ( Auto) , Monocytes (%) (Auto) , Eosinophils (%) (Auto) , Basophils (%) (Auto) , Neutrophils % (Manual) [Pending], Lymphocytes % (Manual) [Pending], Platelet Estimate [Pending], Platelet Morphology [Pending], Sodium Level [Pending], Potassium Level [Pending], Chloride Level [Pending], Carbon Dioxide Level [ Pending], Blood Urea Nitrogen [Pending], Creatinine [Pending], Estimat Glomerular Filtration Rate [Pending], Glucose Level [Pending], Hemoglobin A1c [ Pending], Uric Acid [Pending], Calcium Level [Pending], Phosphorus Level [ Pending], Magnesium Level [Pending], Iron Level [Pending], Unsaturated Iron Binding [Pending], Ferritin [Pending], Total Bilirubin [Pending], Gamma Glutamyl Transpeptidase [Pending], Aspartate Amino Transf (AST/SGOT) [Pending], Alanine Aminotransferase (ALT/SGPT) [Pending], Alkaline Phosphatase [Pending], Total Creatine Kinase [Pending], Troponin I [Pending], C-Reactive Protein, Quantitative [Pending], Pro-B-Type Natriuretic Peptide [Pending], Total Protein [Pending], Albumin [Pending], Globulin [Pending], Triglycerides Level [Pending] , Cholesterol Level [Pending], LDL Cholesterol [Pending], HDL Cholesterol [ Pending], Cholesterol/HDL Ratio [Pending], Vitamin B12 Level [Pending], Folate [ Pending], Thyroid Stimulating Hormone (TSH) [Pending] Current Medications Medications (Trade) Dose Ordered Sig/Lucie Route PRN Reason Start Time Stop Time Status Last Admin Dose Admin Acetaminophen (Tylenol) 650 mg Q4H PRN ORAL T>100.5 01/05/18 19:15 02/04/18 19:14 Albuterol/ Ipratropium (Albuterol/ Ipratropium) 3 ml Q4H PRN HHN Shortness of Breath 01/09/18 15:15 01/14/18 15:15 Docusate Sodium (Colace) 100 mg TWICE A DAY ORAL 01/11/18 11:00 02/10/18 10:59 01/11/18 17:43 Haloperidol (Haldol) 5 mg Q4H PRN ORAL Agitation 01/05/18 19:15 02/04/18 19:14 01/11/18 20:34 Heparin Sodium (Porcine) (Heparin 5000 units/ml) 5,000 units EVERY 12 HOURS SUBQ 01/05/18 21:00 02/04/18 20:59 01/11/18 09:47 Lansoprazole (Prevacid) 30 mg DAILY ORAL 01/11/18 10:45 02/10/18 10:44 01/11/18 11:59 Metoprolol Tartrate (Lopressor) 12.5 mg Q12HR ORAL 01/11/18 21:00 02/10/18 20:59 01/11/18 20:36 Mirtazapine (Remeron) 15 mg BEDTIME ORAL 01/05/18 21:00 02/04/18 20:59 01/11/18 20:32 Morphine Sulfate (Morphine Sulfate) 2 mg Q4H PRN IM Moderate Pain (Pain Scale 4-6) 01/12/18 02:00 01/19/18 01:59 01/12/18 05:20 Morphine Sulfate (Morphine Sulfate) 2 mg Q4H PRN IVP Moderate Pain (Pain Scale 4-6) 01/10/18 15:15 01/17/18 15:15 Ondansetron HCl (Zofran) 4 mg Q6H PRN IVP Nausea & Vomiting 01/05/18 19:15 02/04/18 19:14 Phenazopyridine HCl (Pyridium) 100 mg DAILYPRN PRN ORAL dysuria 01/05/18 19:15 02/04/18 19:14 Polyethylene Glycol (Miralax) 17 gm DAILYPRN PRN ORAL Constipation 01/05/18 19:15 02/04/18 19:14 Quetiapine Fumarate (SEROquel) 25 mg Q8HR ORAL 01/11/18 22:00 02/10/18 21:59 01/11/18 21:28 Tamsulosin HCl (Flomax) 0.4 mg BEDTIME ORAL 01/11/18 21:00 02/10/18 20:59 01/11/18 20:32 Trimethoprim/ Sulfamethoxazole (Bactrim Single Strength) 1 ea TWICE A DAY ORAL 01/11/18 18:00 01/16/18 09:01 01/11/18 17:44 [facility] Jan 12, 2018 09:37
[2018-01-12] MEDS: Docusate 100mg cap ORAL SCH ×2 (09:47→18:00)
[2018-01-12] MEDS: Bactrim SS Tab ORAL SCH ×2 (09:47→18:00)
[2018-01-12] MEDS: Heparin 5000 units/ml inj SUBQ SCH ×2 (09:48→21:56)
[2018-01-12 09:58] LABS: ALANINE AMINOTRANSFERASE 26 U/L (12-78); ALBUMIN 3.3 G/DL (3.4-5.0); ALBUMIN/GLOBULIN RATIO 0.6 (1.0-2.7); ALKALINE PHOSPHATASE 152 U/L (46-116); ANION GAP 6 mmol/L (5-15); ASPARTATE AMINO TRANSFERASE 32 U/L (15-37); BILIRUBIN,TOTAL 0.7 MG/DL (0.2-1.0); BLOOD UREA NITROGEN 30 mg/dL (7-18); CALCIUM 9.1 MG/DL (8.5-10.1); CARBON DIOXIDE 28 MMOL/L (21-32); CHLORIDE 107 MMOL/L (98-107); CHOLESTEROL 188 MG/DL (< 200); CREATINE KINASE 73 U/L (26-308); CREATININE 2.1 MG/DL (0.55-1.30); FERRITIN 76 NG/ML (8-388); GAMMA GLUTAMYL TRANSPEPTIDASE 124 U/L (5-85); HDL CHOLESTEROL 100 MG/DL (40-60); PHOSPHORUS 3.2 MG/DL (2.5-4.9); POTASSIUM 5.4 MMOL/L (3.5-5.1); SODIUM 141 MMOL/L (136-145); TRIGLYCERIDES 42 MG/DL (30-150)
[2018-01-12 10:57] LABS: % IRON SATURATION 27 % (15-50); IRON 100 ug/dL (50-175); TOTAL IRON BINDING CAPACITY 371 ug/dL (250-450)
[2018-01-12] MEDS ORDERED: Albuterol/Ipratropium 3ml neb HHN PRN (11:15)
[2018-01-12] MEDS ORDERED: Sodium Polystyrene Sulfonate 15gm Powder ORAL ONE ×2 (15:00→16:00)
--- NOTE | 2018-01-12 15:59 | Nephrology Progress Note ---
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 Plan Plan: change diet to renal Kayexelate po Monitor renal parameters avoid nephrotoxics as possible Keep hydrated add lopressor add prevacid per orders Subjective ROS Limited/Unobtainable: No Constitutional: Reports: malaise Objective Objective Last 24 Hour Vital Signs Date Time Temp Pulse Resp B/P (MAP) Pulse Ox O2 Delivery O2 Flow Rate FiO2 01/12/18 12:00 97.6 82 18 110/61 96 97.6 01/12/18 10:44 96 90/60 01/12/18 10:00 94 01/12/18 09:57 102 92/68 01/12/18 09:00 96 90/60 01/12/18 08:02 97.7 95 18 108/73 98 97.7 01/12/18 07:10 92 18 Room Air 21 01/12/18 04:00 98.0 78 20 132/87 97 98.0 01/11/18 22:51 84 20 Room Air 21 01/11/18 20:36 87 148/91 01/11/18 20:00 98.6 87 20 157/100 96 98.6 01/11/18 15:59 97.9 87 20 148/91 97 Room Air 97.9 Intake and Output 01/11/18 01/12/18 19:00 07:00 Intake Total 240 ml Output Total 1050 ml Balance 240 ml -1050 ml Intake Oral 240 ml Output Urine Total 1050 ml # Voids 4 8 Laboratory Tests 01/12/18 08:45: White Blood Count 10.0, Red Blood Count 4.39L, Hemoglobin 13.6L, Hematocrit 40.5L, Mean Corpuscular Volume 92, Mean Corpuscular Hemoglobin 30.9, Mean Corpuscular Hemoglobin Concent 33.5, Red Cell Distribution Width 13.3, Platelet Count 280, Mean Platelet Volume 6.3L, Neutrophils (%) (Auto) , Lymphocytes (%) ( Auto) , Monocytes (%) (Auto) , Eosinophils (%) (Auto) , Basophils (%) (Auto) , Differential Total Cells Counted 100, Neutrophils % (Manual) 26L, Lymphocytes % (Manual) 59H, Monocytes % (Manual) 14H, Eosinophils % (Manual) 1, Basophils % ( Manual) 0, Band Neutrophils 0, Platelet Estimate Adequate, Platelet Morphology Normal, Red Blood Cell Morphology Normal, Sodium Level 141, Potassium Level 5.4H , Chloride Level 107, Carbon Dioxide Level 28, Anion Gap 6, Blood Urea Nitrogen 30H, Creatinine 2.1H, Estimat Glomerular Filtration Rate 38.3, Glucose Level 103 , Hemoglobin A1c 6.0, Uric Acid 8.8H, Calcium Level 9.1, Phosphorus Level 3.2, Magnesium Level 1.8, Iron Level 100, Total Iron Binding Capacity 371, Percent Iron Saturation 27, Unsaturated Iron Binding 271, Ferritin 76, Total Bilirubin 0.7, Gamma Glutamyl Transpeptidase 124H, Aspartate Amino Transf (AST/SGOT) 32, Alanine Aminotransferase (ALT/SGPT) 26, Alkaline Phosphatase 152H, Total Creatine Kinase 73, Troponin I 0.000, C-Reactive Protein, Quantitative < 0.4, Pro-B-Type Natriuretic Peptide 38, Total Protein 8.5H, Albumin 3.3L, Globulin 5.2, Albumin/Globulin Ratio 0.6L, Triglycerides Level 42, Cholesterol Level 188 , LDL Cholesterol 92, HDL Cholesterol 100H, Cholesterol/HDL Ratio 1.9L, Vitamin B12 Level 722, Folate 17.8, Thyroid Stimulating Hormone (TSH) 1.035 Height (Feet): 5 Height (Inches): 9.00 Weight (Pounds): 180 STEPHY HENDERSON Jan 12, 2018 15:59
[2018-01-12] MEDS ORDERED: Sodium Chloride 500ML 500 ML IV ONE (16:00)
--- NOTE | 2018-01-12 16:09 | Infectious Diseases Prog Note ---
Assessment/Plan Assessment/Plan Assessment: R flank pain- chronic b/l calculus, possibly infected -CT abd/p: Distal right ureteral calculi, stable over multiple earlier studies dating back to 09/20/2014, again demonstrated. There is persistent right hydronephrosis and right renal atrophy. Nonobstructive right lower pole renal calculi are again demonstrated. Large left renal staghorn calculus, also present as far back as 2013. Mild right hydronephrosis but no ureteral calculi or hydroureter. Other nonobstructive left lower pole renal calculi are also evident. Gas bubbles within the left renal collecting system and bladder, markedly decreased from the previous 2016 exam. Uncertain as to whether these represent bladder instrumentation with reflux into the left renal collecting system, versus artifact due to infection with gas -forming organism. Correlate with clinical and laboratory findings. The bladder wall is also mildly thickened, unchanged from previously. Cystitis a possibility. Left renal cyst, also previously described. Cholelithiasis, new since prior study. Left basilar dependent pulmonary parenchymal atelectasis. Evidence of COPD, with hyperinflation and a single small bulla. Evidence of prior prostatectomy -u/a wbc 30-40, nit +, leuk +3; ucx >100K ESBL E.coli (S zozyn, nitrofurantoin , bactrim, ertapenem;R levo); repeat u/a 01/08 wbc tntc, nit+, leuk +3; ucx 50- 60k E.fecalis (S vanco, amp; R levo) -Bcx NTD Mild leukocytosis, resolved -CXR no acute process -Xray R foot and L foot: no acute process recent possible UTI oct 2017, s/p Rx -u/a WBC TNTC- ucx >100k E. fecalis (S Vanco, amp), 30-40k mixed gram positive growth Chronic Hep C infection - hEp C VL 42K 10/2017 -Hep A Imm, Hep B Ab neg, HIV Neg History of recurrent urinary tract infection. History of osteomyelitis of the second left toe and distal phalanx. History of prostate cancer. History of renal stone and CKD. Dementia HTN CVA hx IVDA Plan: - Continue Bactrim DS 1 tab bid #03/29 for possible ESBL UTI and add PO Amoxicillin #10/24 for enterococcal coverage -01/10 SP Ertapenem #4 -01/06 SP IV Vancomycin #2 -01/05 SP Ceftriaxone x1 -11/12 SP PO ampicillin #14 -f/u cx -uro eval- no intervention needed a this point -monitor CBC/BMP, temperatures -pain control -aspiration precautions. Thank you for this consultation. Will continue to follow along with you. Discussed with RN. Subjective Allergies: Uncoded Allergies: anesthesia (Allergy, Unknown, 07/04/14) Subjective afebrile no leukocytosis Bcx NTD Objective Vital Signs Last 24 Hour Vital Signs Date Time Temp Pulse Resp B/P (MAP) Pulse Ox O2 Delivery O2 Flow Rate FiO2 01/12/18 12:00 97.6 82 18 110/61 96 97.6 01/12/18 10:44 96 90/60 01/12/18 10:00 94 01/12/18 09:57 102 92/68 01/12/18 09:00 96 90/60 01/12/18 08:02 97.7 95 18 108/73 98 97.7 01/12/18 07:10 92 18 Room Air 21 01/12/18 04:00 98.0 78 20 132/87 97 98.0 01/11/18 22:51 84 20 Room Air 21 01/11/18 20:36 87 148/91 01/11/18 20:00 98.6 87 20 157/100 96 98.6 Height (Feet): 5 Height (Inches): 9.00 Weight (Pounds): 180 Objective General Appearance: no apparent distress, alert HEENT: normocephalic, atraumatic PERRL Neck: full range of motion Respiratory: chest non-tender, lungs clear, normal breath sounds, speaking full sentences Cardiovascular regular rate, rhythm, no edema Gastrointestinal: normal bowel sounds, non tender, soft Musculoskeletal: back normal, gait/station normal, normal range of motion, non- tender Neurologic: alert, responsive, motor strength/tone normal, sensory intact, normal gait, speech normal, grossly normal Skin: no rash, warm/dry, well hydrated, other - hyperpigmentation of the bilateral feet and ankles, consistent with PAD/ insufficiency- chronic. no obvious wounds, no erythema Laboratory Tests Test 01/12/18 08:45 White Blood Count 10.0 K/UL (4.8-10.8) Red Blood Count 4.39 M/UL (4.70-6.10) L Hemoglobin 13.6 G/DL (14.2-18.0) L Hematocrit 40.5 % (42.0-52.0) L Mean Corpuscular Volume 92 FL (80-99) Mean Corpuscular Hemoglobin 30.9 PG (27.0-31.0) Mean Corpuscular Hemoglobin Concent 33.5 G/DL (32.0-36.0) Red Cell Distribution Width 13.3 % (11.6-14.8) Platelet Count 280 K/UL (150-450) Mean Platelet Volume 6.3 FL (6.5-10.1) L Neutrophils (%) (Auto) % (45.0-75.0) Lymphocytes (%) (Auto) % (20.0-45.0) Monocytes (%) (Auto) % (1.0-10.0) Eosinophils (%) (Auto) % (0.0-3.0) Basophils (%) (Auto) % (0.0-2.0) Differential Total Cells Counted 100 Neutrophils % (Manual) 26 % (45-75) L Lymphocytes % (Manual) 59 % (20-45) H Monocytes % (Manual) 14 % (1-10) H Eosinophils % (Manual) 1 % (0-3) Basophils % (Manual) 0 % (0-2) Band Neutrophils 0 % (0-8) Platelet Estimate Adequate Platelet Morphology Normal Red Blood Cell Morphology Normal Sodium Level 141 MMOL/L (136-145) Potassium Level 5.4 MMOL/L (3.5-5.1) H Chloride Level 107 MMOL/L (98-107) Carbon Dioxide Level 28 MMOL/L (21-32) Anion Gap 6 mmol/L (5-15) Blood Urea Nitrogen 30 mg/dL (7-18) H Creatinine 2.1 MG/DL (0.55-1.30) H Estimat Glomerular Filtration Rate 38.3 mL/min (>60) Glucose Level 103 MG/DL (74-106) Hemoglobin A1c 6.0 % (4.3-6.0) Uric Acid 8.8 MG/DL (2.6-7.2) H Calcium Level 9.1 MG/DL (8.5-10.1) Phosphorus Level 3.2 MG/DL (2.5-4.9) Magnesium Level 1.8 MG/DL (1.8-2.4) Iron Level 100 ug/dL (50-175) Total Iron Binding Capacity 371 ug/dL (250-450) Percent Iron Saturation 27 % (15-50) Unsaturated Iron Binding 271 ug/dL (112-346) Ferritin 76 NG/ML (8-388) Total Bilirubin 0.7 MG/DL (0.2-1.0) Gamma Glutamyl Transpeptidase 124 U/L (5-85) H Aspartate Amino Transf (AST/SGOT) 32 U/L (15-37) Alanine Aminotransferase (ALT/SGPT) 26 U/L (12-78) Alkaline Phosphatase 152 U/L (46-116) H Total Creatine Kinase 73 U/L (26-308) Troponin I 0.000 ng/mL (0.000-0.056) C-Reactive Protein, Quantitative < 0.4 mg/dL (0.00-0.90) Pro-B-Type Natriuretic Peptide 38 pg/mL (0-125) Total Protein 8.5 G/DL (6.4-8.2) H Albumin 3.3 G/DL (3.4-5.0) L Globulin 5.2 g/dL Albumin/Globulin Ratio 0.6 (1.0-2.7) L Triglycerides Level 42 MG/DL (30-150) Cholesterol Level 188 MG/DL (< 200) LDL Cholesterol 92 mg/dL (<100) HDL Cholesterol 100 MG/DL (40-60) H Cholesterol/HDL Ratio 1.9 (3.3-4.4) L Vitamin B12 Level 722 PG/ML (193-986) Folate 17.8 NG/ML (8.6-58.9) Thyroid Stimulating Hormone (TSH) 1.035 uiU/mL (0.358-3.740) Current Medications Medications (Trade) Dose Ordered Sig/Lucie Route PRN Reason Start Time Stop Time Status Last Admin Dose Admin Acetaminophen (Tylenol) 650 mg Q4H PRN ORAL T>100.5 01/05/18 19:15 02/04/18 19:14 Albuterol/ Ipratropium (Albuterol/ Ipratropium) 3 ml Q4H PRN HHN Shortness of Breath 01/12/18 11:15 01/17/18 11:15 Docusate Sodium (Colace) 100 mg TWICE A DAY ORAL 01/11/18 11:00 02/10/18 10:59 01/12/18 09:47 Haloperidol (Haldol) 5 mg Q4H PRN ORAL Agitation 01/05/18 19:15 02/04/18 19:14 01/11/18 20:34 Heparin Sodium (Porcine) (Heparin 5000 units/ml) 5,000 units EVERY 12 HOURS SUBQ 01/05/18 21:00 02/04/18 20:59 01/12/18 09:48 Lansoprazole (Prevacid) 30 mg DAILY ORAL 01/11/18 10:45 02/10/18 10:44 01/12/18 09:47 Metoprolol Tartrate (Lopressor) 12.5 mg Q12HR ORAL 01/11/18 21:00 02/10/18 20:59 01/11/18 20:36 Mirtazapine (Remeron) 15 mg BEDTIME ORAL 01/05/18 21:00 02/04/18 20:59 01/11/18 20:32 Morphine Sulfate (Morphine Sulfate) 2 mg Q4H PRN IM Moderate Pain (Pain Scale 4-6) 01/12/18 02:00 01/19/18 01:59 01/12/18 05:20 Morphine Sulfate (Morphine Sulfate) 2 mg Q4H PRN IVP Moderate Pain (Pain Scale 4-6) 01/10/18 15:15 01/17/18 15:15 Ondansetron HCl (Zofran) 4 mg Q6H PRN IVP Nausea & Vomiting 01/05/18 19:15 02/04/18 19:14 Phenazopyridine HCl (Pyridium) 100 mg DAILYPRN PRN ORAL dysuria 01/05/18 19:15 02/04/18 19:14 Polyethylene Glycol (Miralax) 17 gm DAILYPRN PRN ORAL Constipation 01/05/18 19:15 02/04/18 19:14 Quetiapine Fumarate (SEROquel) 25 mg Q8HR ORAL 01/11/18 22:00 02/10/18 21:59 01/11/18 21:28 Sodium Polystyrene Sulfonate (Kayexalate) 30 gm ONCE ONCE ORAL 01/12/18 16:00 01/12/18 16:01 Tamsulosin HCl (Flomax) 0.4 mg BEDTIME ORAL 01/11/18 21:00 02/10/18 20:59 01/11/18 20:32 Trimethoprim/ Sulfamethoxazole (Bactrim Single Strength) 1 ea TWICE A DAY ORAL 01/11/18 18:00 01/16/18 09:01 01/12/18 09:47 Janet Rowland M.D. Jan 12, 2018 16:09
[2018-01-12] MEDS ORDERED: Albumin Human 5% 250ml IV ONE (17:00)
--- NOTE | 2018-01-12 18:00 | General Progress Note ---
Assessment/Plan Assessment/Plan Dementia with behavioral disturbance mdd -seroquel 25 mg bid -ro Subjective Date patient seen: Jan 10, 2018 Neurologic/Psychiatric: Reports: anxiety, depressed, emotional problems Allergies: Uncoded Allergies: anesthesia (Allergy, Unknown, 07/04/14) Subjective the pt is still agitated and attempts to come out of bed Objective Last 24 Hour Vital Signs Date Time Temp Pulse Resp B/P (MAP) Pulse Ox O2 Delivery O2 Flow Rate FiO2 01/12/18 16:00 98.1 82 18 104/85 98 98.1 01/12/18 12:00 97.6 82 18 110/61 96 97.6 01/12/18 10:44 96 90/60 01/12/18 10:00 94 01/12/18 09:57 102 92/68 01/12/18 09:00 96 90/60 01/12/18 08:02 97.7 95 18 108/73 98 97.7 01/12/18 07:10 92 18 Room Air 21 01/12/18 04:00 98.0 78 20 132/87 97 98.0 01/11/18 22:51 84 20 Room Air 21 01/11/18 20:36 87 148/91 01/11/18 20:00 98.6 87 20 157/100 96 98.6 Intake and Output 01/11/18 01/12/18 19:00 07:00 Intake Total 240 ml Output Total 1050 ml Balance 240 ml -1050 ml Intake Oral 240 ml Output Urine Total 1050 ml # Voids 4 8 Laboratory Tests 01/12/18 08:45: White Blood Count 10.0, Red Blood Count 4.39L, Hemoglobin 13.6L, Hematocrit 40.5L, Mean Corpuscular Volume 92, Mean Corpuscular Hemoglobin 30.9, Mean Corpuscular Hemoglobin Concent 33.5, Red Cell Distribution Width 13.3, Platelet Count 280, Mean Platelet Volume 6.3L, Neutrophils (%) (Auto) , Lymphocytes (%) ( Auto) , Monocytes (%) (Auto) , Eosinophils (%) (Auto) , Basophils (%) (Auto) , Differential Total Cells Counted 100, Neutrophils % (Manual) 26L, Lymphocytes % (Manual) 59H, Monocytes % (Manual) 14H, Eosinophils % (Manual) 1, Basophils % ( Manual) 0, Band Neutrophils 0, Platelet Estimate Adequate, Platelet Morphology Normal, Red Blood Cell Morphology Normal, Sodium Level 141, Potassium Level 5.4H , Chloride Level 107, Carbon Dioxide Level 28, Anion Gap 6, Blood Urea Nitrogen 30H, Creatinine 2.1H, Estimat Glomerular Filtration Rate 38.3, Glucose Level 103 , Hemoglobin A1c 6.0, Uric Acid 8.8H, Calcium Level 9.1, Phosphorus Level 3.2, Magnesium Level 1.8, Iron Level 100, Total Iron Binding Capacity 371, Percent Iron Saturation 27, Unsaturated Iron Binding 271, Ferritin 76, Total Bilirubin 0.7, Gamma Glutamyl Transpeptidase 124H, Aspartate Amino Transf (AST/SGOT) 32, Alanine Aminotransferase (ALT/SGPT) 26, Alkaline Phosphatase 152H, Total Creatine Kinase 73, Troponin I 0.000, C-Reactive Protein, Quantitative < 0.4, Pro-B-Type Natriuretic Peptide 38, Total Protein 8.5H, Albumin 3.3L, Globulin 5.2, Albumin/Globulin Ratio 0.6L, Triglycerides Level 42, Cholesterol Level 188 , LDL Cholesterol 92, HDL Cholesterol 100H, Cholesterol/HDL Ratio 1.9L, Vitamin B12 Level 722, Folate 17.8, Thyroid Stimulating Hormone (TSH) 1.035 Height (Feet): 5 Height (Inches): 9.00 Weight (Pounds): 180 Mckenna Bermudez M.D. Jan 12, 2018 18:00
--- NOTE | 2018-01-12 18:00 | General Progress Note ---
Assessment/Plan Assessment/Plan Dementia with behavioral disturbance mdd -seroquel 25 mg bid -ro Subjective Date patient seen: Jan 11, 2018 Allergies: Uncoded Allergies: anesthesia (Allergy, Unknown, 07/04/14) Subjective the pt is still agitated the same Objective Last 24 Hour Vital Signs Date Time Temp Pulse Resp B/P (MAP) Pulse Ox O2 Delivery O2 Flow Rate FiO2 01/12/18 16:00 98.1 82 18 104/85 98 98.1 01/12/18 12:00 97.6 82 18 110/61 96 97.6 01/12/18 10:44 96 90/60 01/12/18 10:00 94 01/12/18 09:57 102 92/68 01/12/18 09:00 96 90/60 01/12/18 08:02 97.7 95 18 108/73 98 97.7 01/12/18 07:10 92 18 Room Air 21 01/12/18 04:00 98.0 78 20 132/87 97 98.0 01/11/18 22:51 84 20 Room Air 21 01/11/18 20:36 87 148/91 01/11/18 20:00 98.6 87 20 157/100 96 98.6 Intake and Output 01/11/18 01/12/18 19:00 07:00 Intake Total 240 ml Output Total 1050 ml Balance 240 ml -1050 ml Intake Oral 240 ml Output Urine Total 1050 ml # Voids 4 8 Laboratory Tests 01/12/18 08:45: White Blood Count 10.0, Red Blood Count 4.39L, Hemoglobin 13.6L, Hematocrit 40.5L, Mean Corpuscular Volume 92, Mean Corpuscular Hemoglobin 30.9, Mean Corpuscular Hemoglobin Concent 33.5, Red Cell Distribution Width 13.3, Platelet Count 280, Mean Platelet Volume 6.3L, Neutrophils (%) (Auto) , Lymphocytes (%) ( Auto) , Monocytes (%) (Auto) , Eosinophils (%) (Auto) , Basophils (%) (Auto) , Differential Total Cells Counted 100, Neutrophils % (Manual) 26L, Lymphocytes % (Manual) 59H, Monocytes % (Manual) 14H, Eosinophils % (Manual) 1, Basophils % ( Manual) 0, Band Neutrophils 0, Platelet Estimate Adequate, Platelet Morphology Normal, Red Blood Cell Morphology Normal, Sodium Level 141, Potassium Level 5.4H , Chloride Level 107, Carbon Dioxide Level 28, Anion Gap 6, Blood Urea Nitrogen 30H, Creatinine 2.1H, Estimat Glomerular Filtration Rate 38.3, Glucose Level 103 , Hemoglobin A1c 6.0, Uric Acid 8.8H, Calcium Level 9.1, Phosphorus Level 3.2, Magnesium Level 1.8, Iron Level 100, Total Iron Binding Capacity 371, Percent Iron Saturation 27, Unsaturated Iron Binding 271, Ferritin 76, Total Bilirubin 0.7, Gamma Glutamyl Transpeptidase 124H, Aspartate Amino Transf (AST/SGOT) 32, Alanine Aminotransferase (ALT/SGPT) 26, Alkaline Phosphatase 152H, Total Creatine Kinase 73, Troponin I 0.000, C-Reactive Protein, Quantitative < 0.4, Pro-B-Type Natriuretic Peptide 38, Total Protein 8.5H, Albumin 3.3L, Globulin 5.2, Albumin/Globulin Ratio 0.6L, Triglycerides Level 42, Cholesterol Level 188 , LDL Cholesterol 92, HDL Cholesterol 100H, Cholesterol/HDL Ratio 1.9L, Vitamin B12 Level 722, Folate 17.8, Thyroid Stimulating Hormone (TSH) 1.035 Height (Feet): 5 Height (Inches): 9.00 Weight (Pounds): 180 General Appearance: no apparent distress, alert, confused, agitated Mckenna Bermudez M.D. Jan 12, 2018 18:00
--- NOTE | 2018-01-12 18:03 | Geriatric Progress Note ---
Assessment/Plan Assessment/Plan Dementia with behavioral disturbance mdd -seroquel 50 mg tid -ro/st Subjective Interval Events 01/12/18 Mood/Memory: Reports: prior hx, anxiety Geriatric Geriatric Last 24 Hour Vital Signs Date Time Temp Pulse Resp B/P (MAP) Pulse Ox O2 Delivery O2 Flow Rate FiO2 01/12/18 16:00 98.1 82 18 104/85 98 98.1 01/12/18 12:00 97.6 82 18 110/61 96 97.6 01/12/18 10:44 96 90/60 01/12/18 10:00 94 01/12/18 09:57 102 92/68 01/12/18 09:00 96 90/60 01/12/18 08:02 97.7 95 18 108/73 98 97.7 01/12/18 07:10 92 18 Room Air 21 01/12/18 04:00 98.0 78 20 132/87 97 98.0 01/11/18 22:51 84 20 Room Air 21 01/11/18 20:36 87 148/91 01/11/18 20:00 98.6 87 20 157/100 96 98.6 Intake and Output 01/11/18 01/12/18 19:00 07:00 Intake Total 240 ml Output Total 1050 ml Balance 240 ml -1050 ml Intake Oral 240 ml Output Urine Total 1050 ml # Voids 4 8 Laboratory Tests Test 01/12/18 08:45 White Blood Count 10.0 K/UL (4.8-10.8) Red Blood Count 4.39 M/UL (4.70-6.10) L Hemoglobin 13.6 G/DL (14.2-18.0) L Hematocrit 40.5 % (42.0-52.0) L Mean Corpuscular Volume 92 FL (80-99) Mean Corpuscular Hemoglobin 30.9 PG (27.0-31.0) Mean Corpuscular Hemoglobin Concent 33.5 G/DL (32.0-36.0) Red Cell Distribution Width 13.3 % (11.6-14.8) Platelet Count 280 K/UL (150-450) Mean Platelet Volume 6.3 FL (6.5-10.1) L Neutrophils (%) (Auto) % (45.0-75.0) Lymphocytes (%) (Auto) % (20.0-45.0) Monocytes (%) (Auto) % (1.0-10.0) Eosinophils (%) (Auto) % (0.0-3.0) Basophils (%) (Auto) % (0.0-2.0) Differential Total Cells Counted 100 Neutrophils % (Manual) 26 % (45-75) L Lymphocytes % (Manual) 59 % (20-45) H Monocytes % (Manual) 14 % (1-10) H Eosinophils % (Manual) 1 % (0-3) Basophils % (Manual) 0 % (0-2) Band Neutrophils 0 % (0-8) Platelet Estimate Adequate Platelet Morphology Normal Red Blood Cell Morphology Normal Sodium Level 141 MMOL/L (136-145) Potassium Level 5.4 MMOL/L (3.5-5.1) H Chloride Level 107 MMOL/L (98-107) Carbon Dioxide Level 28 MMOL/L (21-32) Anion Gap 6 mmol/L (5-15) Blood Urea Nitrogen 30 mg/dL (7-18) H Creatinine 2.1 MG/DL (0.55-1.30) H Estimat Glomerular Filtration Rate 38.3 mL/min (>60) Glucose Level 103 MG/DL (74-106) Hemoglobin A1c 6.0 % (4.3-6.0) Uric Acid 8.8 MG/DL (2.6-7.2) H Calcium Level 9.1 MG/DL (8.5-10.1) Phosphorus Level 3.2 MG/DL (2.5-4.9) Magnesium Level 1.8 MG/DL (1.8-2.4) Iron Level 100 ug/dL (50-175) Total Iron Binding Capacity 371 ug/dL (250-450) Percent Iron Saturation 27 % (15-50) Unsaturated Iron Binding 271 ug/dL (112-346) Ferritin 76 NG/ML (8-388) Total Bilirubin 0.7 MG/DL (0.2-1.0) Gamma Glutamyl Transpeptidase 124 U/L (5-85) H Aspartate Amino Transf (AST/SGOT) 32 U/L (15-37) Alanine Aminotransferase (ALT/SGPT) 26 U/L (12-78) Alkaline Phosphatase 152 U/L (46-116) H Total Creatine Kinase 73 U/L (26-308) Troponin I 0.000 ng/mL (0.000-0.056) C-Reactive Protein, Quantitative < 0.4 mg/dL (0.00-0.90) Pro-B-Type Natriuretic Peptide 38 pg/mL (0-125) Total Protein 8.5 G/DL (6.4-8.2) H Albumin 3.3 G/DL (3.4-5.0) L Globulin 5.2 g/dL Albumin/Globulin Ratio 0.6 (1.0-2.7) L Triglycerides Level 42 MG/DL (30-150) Cholesterol Level 188 MG/DL (< 200) LDL Cholesterol 92 mg/dL (<100) HDL Cholesterol 100 MG/DL (40-60) H Cholesterol/HDL Ratio 1.9 (3.3-4.4) L Vitamin B12 Level 722 PG/ML (193-986) Folate 17.8 NG/ML (8.6-58.9) Thyroid Stimulating Hormone (TSH) 1.035 uiU/mL (0.358-3.740) Current Medications Medications (Trade) Dose Ordered Sig/Lucie Route PRN Reason Start Time Stop Time Status Last Admin Dose Admin Acetaminophen (Tylenol) 650 mg Q4H PRN ORAL T>100.5 01/05/18 19:15 02/04/18 19:14 Albuterol/ Ipratropium (Albuterol/ Ipratropium) 3 ml Q4H PRN HHN Shortness of Breath 01/12/18 11:15 01/17/18 11:15 Amoxicillin (Amoxil) 500 mg EVERY 8 HOURS ORAL 01/12/18 16:44 01/19/18 23:59 01/12/18 17:00 Docusate Sodium (Colace) 100 mg TWICE A DAY ORAL 01/11/18 11:00 02/10/18 10:59 01/12/18 09:47 Haloperidol (Haldol) 5 mg Q4H PRN ORAL Agitation 01/05/18 19:15 02/04/18 19:14 01/11/18 20:34 Heparin Sodium (Porcine) (Heparin 5000 units/ml) 5,000 units EVERY 12 HOURS SUBQ 01/05/18 21:00 02/04/18 20:59 01/12/18 09:48 Lansoprazole (Prevacid) 30 mg DAILY ORAL 01/11/18 10:45 02/10/18 10:44 01/12/18 09:47 Metoprolol Tartrate (Lopressor) 12.5 mg Q12HR ORAL 01/11/18 21:00 02/10/18 20:59 01/11/18 20:36 Mirtazapine (Remeron) 15 mg BEDTIME ORAL 01/05/18 21:00 02/04/18 20:59 01/11/18 20:32 Morphine Sulfate (Morphine Sulfate) 2 mg Q4H PRN IM Moderate Pain (Pain Scale 4-6) 01/12/18 02:00 01/19/18 01:59 01/12/18 05:20 Morphine Sulfate (Morphine Sulfate) 2 mg Q4H PRN IVP Moderate Pain (Pain Scale 4-6) 01/10/18 15:15 01/17/18 15:15 Ondansetron HCl (Zofran) 4 mg Q6H PRN IVP Nausea & Vomiting 01/05/18 19:15 02/04/18 19:14 Phenazopyridine HCl (Pyridium) 100 mg DAILYPRN PRN ORAL dysuria 01/05/18 19:15 02/04/18 19:14 Polyethylene Glycol (Miralax) 17 gm DAILYPRN PRN ORAL Constipation 01/05/18 19:15 02/04/18 19:14 Quetiapine Fumarate (SEROquel) 25 mg Q8HR ORAL 01/11/18 22:00 02/10/18 21:59 01/11/18 21:28 Tamsulosin HCl (Flomax) 0.4 mg BEDTIME ORAL 01/11/18 21:00 02/10/18 20:59 01/11/18 20:32 Trimethoprim/ Sulfamethoxazole (Bactrim Single Strength) 1 ea TWICE A DAY ORAL 01/11/18 18:00 01/16/18 09:01 01/12/18 09:47 Height (Feet): 5 Height (Inches): 9.00 Weight (Pounds): 180 General Appearance: well nourished, no apparent distress, alert, good eye contact, appears stated age Neurologic: alert Psychiatric Orientation: disoriented Affect: flat Insight: Mckenna Up M.D. Jan 12, 2018 18:02
--- NOTE | 2018-01-12 19:40 | Consultation ---
Consult Note Assessment/Plan A/ 1) h/o left foot osteo 2) Left 2nd toe partial amp 3) PAD 4) Difficulty walking P/ 1) Will order arterial ultz BLE 2) X-rays reviewed 3) Will follow Thank you Baylee/Bo Balderas DPM Jan 12, 2018 19:40
[2018-01-12] MEDS: Tamsulosin 0.4mg cap ORAL SCH (21:18)
[2018-01-13 04:00] VITALS: BP 124/67
[2018-01-13 08:00] VITALS: BP 105/81
[2018-01-13] MEDS: Metoprolol Tartrate 12.5mg TAB ORAL SCH ×2 (09:00→20:31)
[2018-01-13] MEDS: Bactrim SS Tab ORAL SCH ×2 (09:44→17:26)
[2018-01-13] MEDS: Docusate 100mg cap ORAL SCH ×2 (09:44→17:26)
[2018-01-13] MEDS: Heparin 5000 units/ml inj SUBQ SCH ×2 (09:45→21:18)
[2018-01-13] MEDS ORDERED: FLOMAX0.4 MG ORAL (10:07)
--- NOTE | 2018-01-13 10:11 | Pulmonology Progress Note ---
Assessment/Plan Assessment/Plan ASSESSMENT Pyelo with E coli ESBL acute encephalopathy (likely due to UTI) on chronic dementia CKD HTN Hx of CVA COPD dementia with behavioral disturbances bilateral nephrolithiasis with persistent R hydronephrosis/obstructive Chronic hep C infection hx of IVDA Hx of prostate Ca L foot 2 nd toe amputation Hx of osteo L 2 nd toe and distal phalanx MDD hyperkalemia PLAN OF CARE MS floor abx ID follows, changed to oral urine cx + E coli ESBL CT A/P bilateral nephrolithiasis, L staghorn calculus, persistent R hydro urology eval appreciated: per urologist- R kidney already damaged and for L staghorn calculus recommended to defer percutaneous nephrolithotomy for treatment of that stone in this demented elderly ill patient. Pyridium Pain management psych eval appreciated nephro eval monitor renal parameters, lytes, correct lytes as needed avoid nephrotoxic, labs pending for today X ray L foot no acute process podiatry eval appreciated arterial duplex pending BP management DVT prophylaxis O2 HHN prn CXR negative monitor renal parameters, lytes , avoid nephrotoxic PT/OT dc plan to SNF when arrangements made case discussed and evaluated by supervising physician Subjective Allergies: Uncoded Allergies: anesthesia (Allergy, Unknown, 07/04/14) Subjective afebrile, leucocytosis resolved confused treated fro hyperkalemia 01/12 Objective Last 24 Hour Vital Signs Date Time Temp Pulse Resp B/P (MAP) Pulse Ox O2 Delivery O2 Flow Rate FiO2 01/13/18 09:00 104 105/81 01/13/18 08:00 97.1 104 23 105/81 100 Room Air 97.1 01/13/18 07:33 104 18 Room Air 21 01/13/18 04:00 97.5 85 18 124/67 95 Room Air 97.5 01/12/18 23:54 97.9 88 21 127/73 96 97.9 01/12/18 21:00 78 122/78 01/12/18 20:01 83 18 Room Air 21 01/12/18 20:00 98.2 78 20 122/78 97 98.2 01/12/18 16:00 98.1 82 18 104/85 98 98.1 01/12/18 12:00 97.6 82 18 110/61 96 97.6 01/12/18 10:44 96 90/60 Intake and Output 3/26/18 3/27/18 19:00 07:00 Intake Total 600 ml 300 ml Output Total 850 ml Balance 600 ml -550 ml Intake Oral 600 ml 200 ml IV Total 100 ml Output Urine Total 850 ml # Voids 5 Objective General Appearance: no acute distress, confused HEENT: normocephalic, atraumatic, anicteric Respiratory/Chest: lungs clear - with moderate air exchange , no respiratory distress, no accessory muscle use Cardiovascular: normal peripheral pulses, normal rate, no JVD Abdomen: soft, non tender Extremities: no edema, left foot 2 nd toe amputated Neurologic/Psychiatric: alert, responsive Musculoskeletal: normal muscle bulk Current Medications Medications (Trade) Dose Ordered Sig/Lucie Route PRN Reason Start Time Stop Time Status Last Admin Dose Admin Acetaminophen (Tylenol) 650 mg Q4H PRN ORAL T>100.5 01/05/18 19:15 02/04/18 19:14 Albuterol/ Ipratropium (Albuterol/ Ipratropium) 3 ml Q4H PRN HHN Shortness of Breath 01/12/18 11:15 01/17/18 11:15 Amoxicillin (Amoxil) 500 mg EVERY 8 HOURS ORAL 01/12/18 16:44 01/19/18 23:59 01/13/18 05:48 Docusate Sodium (Colace) 100 mg TWICE A DAY ORAL 01/11/18 11:00 02/10/18 10:59 01/13/18 09:44 Haloperidol (Haldol) 5 mg Q4H PRN ORAL Agitation 01/05/18 19:15 02/04/18 19:14 01/11/18 20:34 Heparin Sodium (Porcine) (Heparin 5000 units/ml) 5,000 units EVERY 12 HOURS SUBQ 01/05/18 21:00 02/04/18 20:59 01/13/18 09:45 Lansoprazole (Prevacid) 30 mg DAILY ORAL 01/11/18 10:45 02/10/18 10:44 01/13/18 09:44 Metoprolol Tartrate (Lopressor) 12.5 mg Q12HR ORAL 01/11/18 21:00 02/10/18 20:59 01/11/18 20:36 Mirtazapine (Remeron) 15 mg BEDTIME ORAL 01/05/18 21:00 02/04/18 20:59 01/12/18 21:18 Morphine Sulfate (Morphine Sulfate) 2 mg Q4H PRN IM Moderate Pain (Pain Scale 4-6) 01/12/18 02:00 01/19/18 01:59 01/12/18 05:20 Morphine Sulfate (Morphine Sulfate) 2 mg Q4H PRN IVP Moderate Pain (Pain Scale 4-6) 01/10/18 15:15 01/17/18 15:15 Ondansetron HCl (Zofran) 4 mg Q6H PRN IVP Nausea & Vomiting 01/05/18 19:15 02/04/18 19:14 Phenazopyridine HCl (Pyridium) 100 mg DAILYPRN PRN ORAL dysuria 01/05/18 19:15 02/04/18 19:14 Polyethylene Glycol (Miralax) 17 gm DAILYPRN PRN ORAL Constipation 01/05/18 19:15 02/04/18 19:14 Quetiapine Fumarate (SEROquel) 50 mg Q8HR ORAL 01/12/18 22:00 02/11/18 21:59 01/13/18 05:48 Tamsulosin HCl (Flomax) 0.4 mg BEDTIME ORAL 01/11/18 21:00 02/10/18 20:59 01/12/18 21:18 Trimethoprim/ Sulfamethoxazole (Bactrim Single Strength) 1 ea TWICE A DAY ORAL 01/11/18 18:00 01/16/18 09:01 01/13/18 09:44 [facility] Yadav NP Jan 13, 2018 10:11
[2018-01-13] MEDS ORDERED: SEROQUEL25 MG ORAL (10:12)
[2018-01-13 11:23] LABS: BASOPHILS % (AUTO) 0.3 % (0.0-2.0); EOSINOPHILS % (AUTO) 1.4 % (0.0-3.0); HEMATOCRIT 41.1 % (42.0-52.0); HEMOGLOBIN 13.3 G/DL (14.2-18.0); LYMPHOCYTES % (AUTO) 52.8 % (20.0-45.0); MEAN CORPUSCULAR VOLUME 93 FL (80-99); MONOCYTES % (AUTO) 4.7 % (1.0-10.0); NEUTROPHILS % (AUTO) 40.8 % (45.0-75.0); PLATELET COUNT 275 K/UL (150-450); RED BLOOD COUNT 4.44 M/UL (4.70-6.10); RED CELL DISTRIBUTION WIDTH 13.1 % (11.6-14.8); WHITE BLOOD COUNT 10.1 K/UL (4.8-10.8)
[2018-01-13 11:46] LABS: ANION GAP 10 mmol/L (5-15); BLOOD UREA NITROGEN 40 mg/dL (7-18); CARBON DIOXIDE 24 MMOL/L (21-32); CHLORIDE 108 MMOL/L (98-107); CREATININE 2.7 MG/DL (0.55-1.30); POTASSIUM 4.5 MMOL/L (3.5-5.1); SODIUM 142 MMOL/L (136-145)
[2018-01-13 11:57] VITALS: BP 96/61
--- NOTE | 2018-01-13 13:13 | Infectious Diseases Prog Note ---
Assessment/Plan Assessment/Plan Assessment: R flank pain- chronic b/l calculus, possibly infected -CT abd/p: Distal right ureteral calculi, stable over multiple earlier studies dating back to 09/20/2014, again demonstrated. There is persistent right hydronephrosis and right renal atrophy. Nonobstructive right lower pole renal calculi are again demonstrated. Large left renal staghorn calculus, also present as far back as 2013. Mild right hydronephrosis but no ureteral calculi or hydroureter. Other nonobstructive left lower pole renal calculi are also evident. Gas bubbles within the left renal collecting system and bladder, markedly decreased from the previous 2016 exam. Uncertain as to whether these represent bladder instrumentation with reflux into the left renal collecting system, versus artifact due to infection with gas -forming organism. Correlate with clinical and laboratory findings. The bladder wall is also mildly thickened, unchanged from previously. Cystitis a possibility. Left renal cyst, also previously described. Cholelithiasis, new since prior study. Left basilar dependent pulmonary parenchymal atelectasis. Evidence of COPD, with hyperinflation and a single small bulla. Evidence of prior prostatectomy -u/a wbc 30-40, nit +, leuk +3; ucx >100K ESBL E.coli (S zozyn, nitrofurantoin , bactrim, ertapenem;R levo); repeat u/a 01/08 wbc tntc, nit+, leuk +3; ucx 50- 60k E.fecalis (S vanco, amp; R levo) -Bcx Neg Mild leukocytosis, resolved -CXR no acute process -Xray R foot and L foot: no acute process recent possible UTI oct 2017, s/p Rx -u/a WBC TNTC- ucx >100k E. fecalis (S Vanco, amp), 30-40k mixed gram positive growth Chronic Hep C infection - hEp C VL 42K 10/2017 -Hep A Imm, Hep B Ab neg, HIV Neg History of recurrent urinary tract infection. History of osteomyelitis of the second left toe and distal phalanx. History of prostate cancer. History of renal stone and CKD. Dementia HTN CVA hx IVDA Plan: - Continue Bactrim DS 1 tab bid #/ for possible ESBL UTI and add PO Amoxicillin #2/5 for enterococcal coverage -monitor Cr, K -01/10 SP Ertapenem #4 -01/06 SP IV Vancomycin #2 -01/05 SP Ceftriaxone x1 -11/12 SP PO ampicillin #14 -uro eval- no intervention needed a this point -monitor CBC/BMP, temperatures -pain control -aspiration precautions. Thank you for this consultation. Will continue to follow along with you. Discussed with RN. Subjective Allergies: Uncoded Allergies: anesthesia (Allergy, Unknown, 07/04/14) Subjective afebrile no leukocytosis Bcx Neg cr increased awaiting discharge Objective Vital Signs Last 24 Hour Vital Signs Date Time Temp Pulse Resp B/P (MAP) Pulse Ox O2 Delivery O2 Flow Rate FiO2 01/13/18 11:57 97.4 93 20 96/61 95 Room Air 97.4 01/13/18 09:00 104 105/81 01/13/18 08:00 97.1 104 23 105/81 100 Room Air 97.1 01/13/18 07:33 104 18 Room Air 21 01/13/18 04:00 97.5 85 18 124/67 95 Room Air 97.5 01/12/18 23:54 97.9 88 21 127/73 96 97.9 01/12/18 21:00 78 122/78 01/12/18 20:01 83 18 Room Air 21 01/12/18 20:00 98.2 78 20 122/78 97 98.2 01/12/18 16:00 98.1 82 18 104/85 98 98.1 Height (Feet): 5 Height (Inches): 9.00 Weight (Pounds): 180 Objective General Appearance: no apparent distress, alert HEENT: normocephalic, atraumatic PERRL Neck: full range of motion Respiratory: chest non-tender, lungs clear, normal breath sounds, speaking full sentences Cardiovascular regular rate, rhythm, no edema Gastrointestinal: normal bowel sounds, non tender, soft Musculoskeletal: back normal, gait/station normal, normal range of motion, non- tender Neurologic: alert, responsive, motor strength/tone normal, sensory intact, normal gait, speech normal, grossly normal Skin: no rash, warm/dry, well hydrated, other - hyperpigmentation of the bilateral feet and ankles, consistent with PAD/ insufficiency- chronic. no obvious wounds, no erythema Laboratory Tests Test 01/13/18 10:10 White Blood Count 10.1 K/UL (4.8-10.8) Red Blood Count 4.44 M/UL (4.70-6.10) L Hemoglobin 13.3 G/DL (14.2-18.0) L Hematocrit 41.1 % (42.0-52.0) L Mean Corpuscular Volume 93 FL (80-99) Mean Corpuscular Hemoglobin 30.0 PG (27.0-31.0) Mean Corpuscular Hemoglobin Concent 32.4 G/DL (32.0-36.0) Red Cell Distribution Width 13.1 % (11.6-14.8) Platelet Count 275 K/UL (150-450) Mean Platelet Volume 6.5 FL (6.5-10.1) Neutrophils (%) (Auto) 40.8 % (45.0-75.0) L Lymphocytes (%) (Auto) 52.8 % (20.0-45.0) H Monocytes (%) (Auto) 4.7 % (1.0-10.0) Eosinophils (%) (Auto) 1.4 % (0.0-3.0) Basophils (%) (Auto) 0.3 % (0.0-2.0) Sodium Level 142 MMOL/L (136-145) Potassium Level 4.5 MMOL/L (3.5-5.1) Chloride Level 108 MMOL/L (98-107) H Carbon Dioxide Level 24 MMOL/L (21-32) Anion Gap 10 mmol/L (5-15) Blood Urea Nitrogen 40 mg/dL (7-18) H Creatinine 2.7 MG/DL (0.55-1.30) H Estimat Glomerular Filtration Rate 28.6 mL/min (>60) Glucose Level 150 MG/DL (74-106) H Calcium Level 9.0 MG/DL (8.5-10.1) Current Medications Medications (Trade) Dose Ordered Sig/Lucie Route PRN Reason Start Time Stop Time Status Last Admin Dose Admin Acetaminophen (Tylenol) 650 mg Q4H PRN ORAL T>100.5 01/05/18 19:15 02/04/18 19:14 Albuterol/ Ipratropium (Albuterol/ Ipratropium) 3 ml Q4H PRN HHN Shortness of Breath 01/12/18 11:15 01/17/18 11:15 Amoxicillin (Amoxil) 500 mg EVERY 8 HOURS ORAL 01/12/18 16:44 01/19/18 23:59 01/13/18 05:48 Docusate Sodium (Colace) 100 mg TWICE A DAY ORAL 01/11/18 11:00 02/10/18 10:59 01/13/18 09:44 Haloperidol (Haldol) 5 mg Q4H PRN ORAL Agitation 01/05/18 19:15 02/04/18 19:14 01/11/18 20:34 Heparin Sodium (Porcine) (Heparin 5000 units/ml) 5,000 units EVERY 12 HOURS SUBQ 01/05/18 21:00 02/04/18 20:59 01/13/18 09:45 Lansoprazole (Prevacid) 30 mg DAILY ORAL 01/11/18 10:45 02/10/18 10:44 01/13/18 09:44 Metoprolol Tartrate (Lopressor) 12.5 mg Q12HR ORAL 01/11/18 21:00 02/10/18 20:59 01/11/18 20:36 Mirtazapine (Remeron) 15 mg BEDTIME ORAL 01/05/18 21:00 02/04/18 20:59 01/12/18 21:18 Morphine Sulfate (Morphine Sulfate) 2 mg Q4H PRN IM Moderate Pain (Pain Scale 4-6) 01/12/18 02:00 01/19/18 01:59 01/12/18 05:20 Morphine Sulfate (Morphine Sulfate) 2 mg Q4H PRN IVP Moderate Pain (Pain Scale 4-6) 01/10/18 15:15 01/17/18 15:15 Ondansetron HCl (Zofran) 4 mg Q6H PRN IVP Nausea & Vomiting 01/05/18 19:15 02/04/18 19:14 Phenazopyridine HCl (Pyridium) 100 mg DAILYPRN PRN ORAL dysuria 01/05/18 19:15 02/04/18 19:14 Polyethylene Glycol (Miralax) 17 gm DAILYPRN PRN ORAL Constipation 01/05/18 19:15 02/04/18 19:14 Quetiapine Fumarate (SEROquel) 50 mg Q8HR ORAL 01/12/18 22:00 4/25/18 21:59 01/13/18 05:48 Tamsulosin HCl (Flomax) 0.4 mg BEDTIME ORAL 01/11/18 21:00 02/10/18 20:59 01/12/18 21:18 Trimethoprim/ Sulfamethoxazole (Bactrim Single Strength) 1 ea TWICE A DAY ORAL 01/11/18 18:00 01/16/18 09:01 01/13/18 09:44 Janet Rowland M.D. Jan 13, 2018 13:13
--- NOTE | 2018-01-13 13:17 | General Progress Note ---
Assessment/Plan Assessment/Plan Dementia with behavioral disturbance mdd -seroquel 25 mg bid -ro Subjective Date patient seen: Jan 13, 2018 Neurologic/Psychiatric: Reports: anxiety, depressed Allergies: Uncoded Allergies: anesthesia (Allergy, Unknown, 07/04/14) Subjective the pt is less agitated calmer Objective Last 24 Hour Vital Signs Date Time Temp Pulse Resp B/P (MAP) Pulse Ox O2 Delivery O2 Flow Rate FiO2 01/13/18 11:57 97.4 93 20 96/61 95 Room Air 97.4 01/13/18 09:00 104 105/81 01/13/18 08:00 97.1 104 23 105/81 100 Room Air 97.1 01/13/18 07:33 104 18 Room Air 21 01/13/18 04:00 97.5 85 18 124/67 95 Room Air 97.5 01/12/18 23:54 97.9 88 21 127/73 96 97.9 01/12/18 21:00 78 122/78 01/12/18 20:01 83 18 Room Air 21 01/12/18 20:00 98.2 78 20 122/78 97 98.2 01/12/18 16:00 98.1 82 18 104/85 98 98.1 Intake and Output 01/12/18 01/13/18 19:00 07:00 Intake Total 600 ml 300 ml Output Total 850 ml Balance 600 ml -550 ml Intake Oral 600 ml 200 ml IV Total 100 ml Output Urine Total 850 ml # Voids 5 Laboratory Tests 01/13/18 10:10: White Blood Count 10.1, Red Blood Count 4.44L, Hemoglobin 13.3L, Hematocrit 41.1L, Mean Corpuscular Volume 93, Mean Corpuscular Hemoglobin 30.0, Mean Corpuscular Hemoglobin Concent 32.4, Red Cell Distribution Width 13.1, Platelet Count 275, Mean Platelet Volume 6.5, Neutrophils (%) (Auto) 40.8L, Lymphocytes ( %) (Auto) 52.8H, Monocytes (%) (Auto) 4.7, Eosinophils (%) (Auto) 1.4, Basophils (%) (Auto) 0.3, Sodium Level 142, Potassium Level 4.5, Chloride Level 108H, Carbon Dioxide Level 24, Anion Gap 10, Blood Urea Nitrogen 40H, Creatinine 2.7H, Estimat Glomerular Filtration Rate 28.6, Glucose Level 150H, Calcium Level 9.0 Height (Feet): 5 Height (Inches): 9.00 Weight (Pounds): 180 General Appearance: no apparent distress, alert, confused Mckenna Bermudez M.D. Jan 13, 2018 13:17
--- NOTE | 2018-01-13 15:01 | Nephrology Progress Note ---
Assessment/Plan Problem List: (1) CKD (chronic kidney disease) (2) Hyperkalemia (3) UTI (lower urinary tract infection) Assessment Pyelo with E coli ESBL CKD Cr rodney 2.7 HTN Hx of CVA COPD dementia bilateral nephrolithiasis with persistent R hydronephrosis/obstructive Chronic hep C infection hx of IVDA Hx of prostate Ca L foot 2 nd toe amputation Hx of osteo L 2 nd toe and distal phalanx Plan Plan: ? DC Bactrim?? due to kidney insufficiency Fluid challenge change diet to renal Kayexelate po Monitor renal parameters avoid nephrotoxics as possible Keep hydrated add lopressor add prevacid per orders Subjective ROS Limited/Unobtainable: No Constitutional: Reports: malaise Objective Objective Last 24 Hour Vital Signs Date Time Temp Pulse Resp B/P (MAP) Pulse Ox O2 Delivery O2 Flow Rate FiO2 01/13/18 11:57 97.4 93 20 96/61 95 Room Air 97.4 01/13/18 09:00 104 105/81 01/13/18 08:00 97.1 104 23 105/81 100 Room Air 97.1 01/13/18 07:33 104 18 Room Air 21 01/13/18 04:00 97.5 85 18 124/67 95 Room Air 97.5 01/12/18 23:54 97.9 88 21 127/73 96 97.9 01/12/18 21:00 78 122/78 01/12/18 20:01 83 18 Room Air 21 01/12/18 20:00 98.2 78 20 122/78 97 98.2 01/12/18 16:00 98.1 82 18 104/85 98 98.1 Intake and Output 01/12/18 01/13/18 19:00 07:00 Intake Total 600 ml 300 ml Output Total 850 ml Balance 600 ml -550 ml Intake Oral 600 ml 200 ml IV Total 100 ml Output Urine Total 850 ml # Voids 5 Laboratory Tests 01/13/18 10:10: White Blood Count 10.1, Red Blood Count 4.44L, Hemoglobin 13.3L, Hematocrit 41.1L, Mean Corpuscular Volume 93, Mean Corpuscular Hemoglobin 30.0, Mean Corpuscular Hemoglobin Concent 32.4, Red Cell Distribution Width 13.1, Platelet Count 275, Mean Platelet Volume 6.5, Neutrophils (%) (Auto) 40.8L, Lymphocytes ( %) (Auto) 52.8H, Monocytes (%) (Auto) 4.7, Eosinophils (%) (Auto) 1.4, Basophils (%) (Auto) 0.3, Sodium Level 142, Potassium Level 4.5, Chloride Level 108H, Carbon Dioxide Level 24, Anion Gap 10, Blood Urea Nitrogen 40H, Creatinine 2.7H, Estimat Glomerular Filtration Rate 28.6, Glucose Level 150H, Calcium Level 9.0 Height (Feet): 5 Height (Inches): 9.00 Weight (Pounds): 180 STEPHY HENDERSON Jan 13, 2018 15:01
[2018-01-13] MEDS ORDERED: Sodium Chloride 500ML 550 ML IV ONE (15:20)
[2018-01-13] MEDS: D5NS 1,000 ML IV SCH (16:15)
[2018-01-13 16:37] VITALS: BP 106/62
[2018-01-13 20:00] VITALS: BP 124/74
[2018-01-13] MEDS: Tamsulosin 0.4mg cap ORAL SCH (21:13)
[2018-01-14] VITALS (9 sets, daily range): BP systolic 92–146; BP diastolic 56–94
[2018-01-14] MEDS: D5NS 1,000 ML IV SCH ×3 (01:30→22:01)
[2018-01-14 07:07] LABS: HEMATOCRIT 35.4 % (42.0-52.0); HEMOGLOBIN 11.8 G/DL (14.2-18.0); MEAN CORPUSCULAR VOLUME 92 FL (80-99); PLATELET COUNT 206 K/UL (150-450); RED BLOOD COUNT 3.85 M/UL (4.70-6.10); RED CELL DISTRIBUTION WIDTH 13.2 % (11.6-14.8); WHITE BLOOD COUNT 9.1 K/UL (4.8-10.8)
[2018-01-14 07:25] LABS: ALANINE AMINOTRANSFERASE 21 U/L (12-78); ALBUMIN 2.8 G/DL (3.4-5.0); ALBUMIN/GLOBULIN RATIO 0.6 (1.0-2.7); ALKALINE PHOSPHATASE 119 U/L (46-116); ANION GAP 10 mmol/L (5-15); ASPARTATE AMINO TRANSFERASE 25 U/L (15-37); BILIRUBIN,TOTAL 0.5 MG/DL (0.2-1.0); BLOOD UREA NITROGEN 40 mg/dL (7-18); CALCIUM 8.8 MG/DL (8.5-10.1); CARBON DIOXIDE 23 MMOL/L (21-32); CHLORIDE 108 MMOL/L (98-107); CREATININE 2.4 MG/DL (0.55-1.30); PHOSPHORUS 3.6 MG/DL (2.5-4.9); POTASSIUM 4.5 MMOL/L (3.5-5.1); SODIUM 141 MMOL/L (136-145)
[2018-01-14] MEDS: Heparin 5000 units/ml inj SUBQ SCH ×3 (09:00→22:03)
[2018-01-14] MEDS: Metoprolol Tartrate 12.5mg TAB ORAL SCH (09:32)
[2018-01-14] MEDS: Docusate 100mg cap ORAL SCH ×2 (09:32→17:07)
[2018-01-14] MEDS: Bactrim SS Tab ORAL SCH ×2 (09:33→17:07)
--- NOTE | 2018-01-14 10:04 | Pulmonology Progress Note ---
Assessment/Plan Assessment/Plan ASSESSMENT Pyelo with E coli ESBL acute encephalopathy (likely due to UTI) on chronic dementia ARF on CKD HTN Hx of CVA COPD dementia with behavioral disturbances bilateral nephrolithiasis with persistent R hydronephrosis/obstructive Chronic hep C infection hx of IVDA Hx of prostate Ca L foot 2 nd toe amputation Hx of osteo L 2 nd toe and distal phalanx MDD hyperkalemia PLAN OF CARE MS floor abx ID follows, changed to oral urine cx + E coli ESBL CT A/P bilateral nephrolithiasis, L staghorn calculus, persistent R hydro urology eval appreciated: per urologist- R kidney already damaged and for L staghorn calculus recommended to defer percutaneous nephrolithotomy for treatment of that stone in this demented elderly ill patient. Pyridium Pain management psych eval appreciated nephro eval monitor renal parameters, lytes, correct lytes as needed avoid nephrotoxic, creat 01/13 u to 2.7 IVF, creat down to 2.4, on Bactrim - the only choice since the patient declined IV abx - discussed with ID X ray L foot no acute process podiatry eval appreciated arterial duplex pending BP management DVT prophylaxis O2 HHN prn CXR negative monitor renal parameters, lytes , avoid nephrotoxic PT/OT dc plan to SNF when arrangements made ( does not provide address of home , unclear if patient has a place to stay) SW follows case discussed and evaluated by supervising physician Subjective Allergies: Uncoded Allergies: anesthesia (Allergy, Unknown, 07/04/14) Subjective afebrile, leucocytosis resolved confused creat down to 2.4 awaiting for disposition Objective Last 24 Hour Vital Signs Date Time Temp Pulse Resp B/P (MAP) Pulse Ox O2 Delivery O2 Flow Rate FiO2 01/14/18 09:32 101 125/68 01/14/18 09:30 101 125/68 01/14/18 08:00 97.2 86 19 112/68 98 Room Air 97.2 01/14/18 07:30 88 18 Room Air 21 01/14/18 04:00 98.0 93 18 140/57 94 98.0 01/14/18 00:00 97.5 101 18 145/57 95 Room Air 97.5 01/13/18 20:09 91 18 Room Air 21 01/13/18 20:00 97.0 103 18 124/74 95 Room Air 97.0 01/13/18 16:37 97.9 81 17 106/62 97 Room Air 97.9 01/13/18 11:57 97.4 93 20 96/61 95 Room Air 97.4 Intake and Output 01/13/18 01/14/18 19:00 07:00 Intake Total 920 ml 500 ml Output Total 600 ml 600 ml Balance 320 ml -100 ml Intake Oral 720 ml IV Total 200 ml 500 ml Output Urine Total 600 ml 600 ml # Voids 1 Objective General Appearance: no acute distress, confused HEENT: normocephalic, atraumatic, anicteric Respiratory/Chest: lungs clear - with moderate air exchange , no respiratory distress, no accessory muscle use Cardiovascular: normal peripheral pulses, normal rate, no JVD Abdomen: soft, non tender Extremities: no edema, left foot 2 nd toe amputated Neurologic/Psychiatric: alert, responsive Musculoskeletal: normal muscle bulk Laboratory Tests 01/13/18 10:10: White Blood Count 10.1, Red Blood Count 4.44L, Hemoglobin 13.3L, Hematocrit 41.1L, Mean Corpuscular Volume 93, Mean Corpuscular Hemoglobin 30.0, Mean Corpuscular Hemoglobin Concent 32.4, Red Cell Distribution Width 13.1, Platelet Count 275, Mean Platelet Volume 6.5, Neutrophils (%) (Auto) 40.8L, Lymphocytes ( %) (Auto) 52.8H, Monocytes (%) (Auto) 4.7, Eosinophils (%) (Auto) 1.4, Basophils (%) (Auto) 0.3, Sodium Level 142, Potassium Level 4.5, Chloride Level 108H, Carbon Dioxide Level 24, Anion Gap 10, Blood Urea Nitrogen 40H, Creatinine 2.7H, Estimat Glomerular Filtration Rate 28.6, Glucose Level 150H, Calcium Level 9.0 01/14/18 06:05: White Blood Count 9.1, Red Blood Count 3.85L, Hemoglobin 11.8L, Hematocrit 35.4L , Mean Corpuscular Volume 92, Mean Corpuscular Hemoglobin 30.6, Mean Corpuscular Hemoglobin Concent 33.3, Red Cell Distribution Width 13.2, Platelet Count 206, Mean Platelet Volume 6.9, Neutrophils (%) (Auto) , Lymphocytes (%) ( Auto) , Monocytes (%) (Auto) , Eosinophils (%) (Auto) , Basophils (%) (Auto) , Sodium Level 141, Potassium Level 4.5, Chloride Level 108H, Carbon Dioxide Level 23, Anion Gap 10, Blood Urea Nitrogen 40H, Creatinine 2.4H, Estimat Glomerular Filtration Rate 32.8, Glucose Level 101, Calcium Level 8.8, Differential Total Cells Counted 100, Neutrophils % (Manual) 37L, Lymphocytes % (Manual) 55H, Monocytes % (Manual) 7, Eosinophils % (Manual) 1, Basophils % ( Manual) 0, Band Neutrophils 0, Platelet Estimate Adequate, Platelet Morphology Normal, Red Blood Cell Morphology Normal, Uric Acid 8.1H, Phosphorus Level 3.6, Magnesium Level 1.8, Total Bilirubin 0.5, Aspartate Amino Transf (AST/SGOT) 25, Alanine Aminotransferase (ALT/SGPT) 21, Alkaline Phosphatase 119H, C-Reactive Protein, Quantitative < 0.4, Total Protein 7.3, Albumin 2.8L, Globulin 4.5, Albumin/Globulin Ratio 0.6L Current Medications Medications (Trade) Dose Ordered Sig/Lucie Route PRN Reason Start Time Stop Time Status Last Admin Dose Admin Acetaminophen (Tylenol) 650 mg Q4H PRN ORAL T>100.5 01/05/18 19:15 02/04/18 19:14 Albuterol/ Ipratropium (Albuterol/ Ipratropium) 3 ml Q4H PRN HHN Shortness of Breath 01/12/18 11:15 01/17/18 11:15 Amoxicillin (Amoxil) 500 mg Q12HR ORAL 01/13/18 21:00 01/19/18 22:00 01/14/18 09:32 Dextrose/Sodium Chloride 1,000 ml @ 100 mls/hr Q10H IV 01/13/18 15:30 02/12/18 15:29 01/14/18 01:30 Docusate Sodium (Colace) 100 mg TWICE A DAY ORAL 01/11/18 11:00 02/10/18 10:59 01/14/18 09:32 Haloperidol (Haldol) 5 mg Q4H PRN ORAL Agitation 01/05/18 19:15 02/04/18 19:14 01/11/18 20:34 Heparin Sodium (Porcine) (Heparin 5000 units/ml) 5,000 units EVERY 12 HOURS SUBQ 01/05/18 21:00 02/04/18 20:59 01/13/18 21:18 Lansoprazole (Prevacid) 30 mg DAILY ORAL 01/11/18 10:45 02/10/18 10:44 01/14/18 09:32 Metoprolol Tartrate (Lopressor) 12.5 mg Q12HR ORAL 01/11/18 21:00 02/10/18 20:59 01/14/18 09:32 Mirtazapine (Remeron) 15 mg BEDTIME ORAL 01/05/18 21:00 02/04/18 20:59 01/13/18 21:13 Morphine Sulfate (Morphine Sulfate) 2 mg Q4H PRN IM Moderate Pain (Pain Scale 4-6) 01/12/18 02:00 01/19/18 01:59 01/12/18 05:20 Morphine Sulfate (Morphine Sulfate) 2 mg Q4H PRN IVP Moderate Pain (Pain Scale 4-6) 01/10/18 15:15 01/17/18 15:15 Ondansetron HCl (Zofran) 4 mg Q6H PRN IVP Nausea & Vomiting 01/05/18 19:15 02/04/18 19:14 Phenazopyridine HCl (Pyridium) 100 mg DAILYPRN PRN ORAL dysuria 01/05/18 19:15 02/04/18 19:14 Polyethylene Glycol (Miralax) 17 gm DAILYPRN PRN ORAL Constipation 01/05/18 19:15 02/04/18 19:14 01/13/18 17:26 Quetiapine Fumarate (SEROquel) 50 mg Q8HR ORAL 01/12/18 22:00 02/11/18 21:59 01/14/18 07:13 Tamsulosin HCl (Flomax) 0.4 mg BEDTIME ORAL 01/11/18 21:00 02/10/18 20:59 01/13/18 21:13 Trimethoprim/ Sulfamethoxazole (Bactrim Single Strength) 1 ea TWICE A DAY ORAL 01/11/18 18:00 01/16/18 09:01 01/14/18 09:33 Baylee Montero NP ([place]) Jan 14, 2018 10:04
--- NOTE | 2018-01-14 10:29 | Nephrology Progress Note ---
Assessment/Plan Problem List: (1) CKD (chronic kidney disease) (2) Hyperkalemia (3) UTI (lower urinary tract infection) Assessment Pyelo with E coli ESBL CKD Cr rodney 2.7 down 2.4 HTN Hx of CVA COPD dementia bilateral nephrolithiasis with persistent R hydronephrosis/obstructive Chronic hep C infection hx of IVDA Hx of prostate Ca L foot 2 nd toe amputation Hx of osteo L 2 nd toe and distal phalanx Plan Plan: up dose lopressor ? DC Bactrim?? due to kidney insufficiency Fluid challenge change diet to renal Kayexelate po Monitor renal parameters avoid nephrotoxics as possible Keep hydrated add lopressor add prevacid per orders Subjective ROS Limited/Unobtainable: No Constitutional: Reports: malaise Objective Objective Last 24 Hour Vital Signs Date Time Temp Pulse Resp B/P (MAP) Pulse Ox O2 Delivery O2 Flow Rate FiO2 01/14/18 09:32 101 125/68 01/14/18 09:30 101 125/68 01/14/18 08:00 97.2 86 19 112/68 98 Room Air 97.2 01/14/18 07:30 88 18 Room Air 21 01/14/18 04:00 98.0 93 18 140/57 94 98.0 01/14/18 00:00 97.5 101 18 145/57 95 Room Air 97.5 01/13/18 20:09 91 18 Room Air 21 01/13/18 20:00 97.0 103 18 124/74 95 Room Air 97.0 01/13/18 16:37 97.9 81 17 106/62 97 Room Air 97.9 01/13/18 11:57 97.4 93 20 96/61 95 Room Air 97.4 Intake and Output 01/13/18 01/14/18 19:00 07:00 Intake Total 920 ml 500 ml Output Total 600 ml 600 ml Balance 320 ml -100 ml Intake Oral 720 ml IV Total 200 ml 500 ml Output Urine Total 600 ml 600 ml # Voids 1 Laboratory Tests 01/14/18 06:05: White Blood Count 9.1, Red Blood Count 3.85L, Hemoglobin 11.8L, Hematocrit 35.4L , Mean Corpuscular Volume 92, Mean Corpuscular Hemoglobin 30.6, Mean Corpuscular Hemoglobin Concent 33.3, Red Cell Distribution Width 13.2, Platelet Count 206, Mean Platelet Volume 6.9, Neutrophils (%) (Auto) , Lymphocytes (%) ( Auto) , Monocytes (%) (Auto) , Eosinophils (%) (Auto) , Basophils (%) (Auto) , Differential Total Cells Counted 100, Neutrophils % (Manual) 37L, Lymphocytes % (Manual) 55H, Monocytes % (Manual) 7, Eosinophils % (Manual) 1, Basophils % ( Manual) 0, Band Neutrophils 0, Platelet Estimate Adequate, Platelet Morphology Normal, Red Blood Cell Morphology Normal, Sodium Level 141, Potassium Level 4.5 , Chloride Level 108H, Carbon Dioxide Level 23, Anion Gap 10, Blood Urea Nitrogen 40H, Creatinine 2.4H, Estimat Glomerular Filtration Rate 32.8, Glucose Level 101, Uric Acid 8.1H, Calcium Level 8.8, Phosphorus Level 3.6, Magnesium Level 1.8, Total Bilirubin 0.5, Aspartate Amino Transf (AST/SGOT) 25, Alanine Aminotransferase (ALT/SGPT) 21, Alkaline Phosphatase 119H, C-Reactive Protein, Quantitative < 0.4, Total Protein 7.3, Albumin 2.8L, Globulin 4.5, Albumin/ Globulin Ratio 0.6L Height (Feet): 5 Height (Inches): 9.00 Weight (Pounds): 180 General Appearance: no apparent distress Objective no change STEPHY HENDERSON Jan 14, 2018 10:29
[2018-01-14] MEDS ORDERED: Metoprolol Tartrate 12.5mg TAB ORAL ONE (11:00)
--- NOTE | 2018-01-14 13:30 | Infectious Diseases Prog Note ---
Assessment/Plan Assessment/Plan Assessment: R flank pain- chronic b/l calculus, possibly infected -CT abd/p: Distal right ureteral calculi, stable over multiple earlier studies dating back to 09/20/2014, again demonstrated. There is persistent right hydronephrosis and right renal atrophy. Nonobstructive right lower pole renal calculi are again demonstrated. Large left renal staghorn calculus, also present as far back as 2013. Mild right hydronephrosis but no ureteral calculi or hydroureter. Other nonobstructive left lower pole renal calculi are also evident. Gas bubbles within the left renal collecting system and bladder, markedly decreased from the previous 2016 exam. Uncertain as to whether these represent bladder instrumentation with reflux into the left renal collecting system, versus artifact due to infection with gas -forming organism. Correlate with clinical and laboratory findings. The bladder wall is also mildly thickened, unchanged from previously. Cystitis a possibility. Left renal cyst, also previously described. Cholelithiasis, new since prior study. Left basilar dependent pulmonary parenchymal atelectasis. Evidence of COPD, with hyperinflation and a single small bulla. Evidence of prior prostatectomy -u/a wbc 30-40, nit +, leuk +3; ucx >100K ESBL E.coli (S zozyn, nitrofurantoin , bactrim, ertapenem;R levo); repeat u/a 01/08 wbc tntc, nit+, leuk +3; ucx 50- 60k E.fecalis (S vanco, amp; R levo) -Bcx Neg Mild leukocytosis, resolved -CXR no acute process -Xray R foot and L foot: no acute process HAMZAH on CKD, improving recent possible UTI oct 2017, s/p Rx -u/a WBC TNTC- ucx >100k E. fecalis (S Vanco, amp), 30-40k mixed gram positive growth Chronic Hep C infection - hEp C VL 42K 10/2017 -Hep A Imm, Hep B Ab neg, HIV Neg History of recurrent urinary tract infection. History of osteomyelitis of the second left toe and distal phalanx. History of prostate cancer. History of renal stone and CKD. Dementia HTN CVA hx IVDA Plan: - Continue Bactrim DS 1 tab bid #8/10 for possible ESBL UTI and PO Amoxicillin # 3/5 for enterococcal coverage -monitor Cr, K- if worseing cr, place PIV and swithc to Ertapenem- Cr improved to IVFs hydration -01/10 SP Ertapenem #4 -01/06 SP IV Vancomycin #2 -01/05 SP Ceftriaxone x1 -11/12 SP PO ampicillin #14 -uro eval- no intervention needed a this point -monitor CBC/BMP, temperatures -pain control -aspiration precautions. Thank you for this consultation. Will continue to follow along with you. Discussed with RN. Subjective Allergies: Uncoded Allergies: anesthesia (Allergy, Unknown, 07/04/14) Subjective afebrile no leukocytosis Cr improved with IVFs Objective Vital Signs Last 24 Hour Vital Signs Date Time Temp Pulse Resp B/P (MAP) Pulse Ox O2 Delivery O2 Flow Rate FiO2 01/14/18 12:37 68 103/78 01/14/18 12:36 97.6 81 18 100/69 Room Air 97.6 01/14/18 12:29 97.8 141 21 92/56 Nasal Cannula 97.8 01/14/18 09:32 101 125/68 01/14/18 09:30 101 125/68 01/14/18 08:00 97.2 86 19 112/68 98 Room Air 97.2 01/14/18 07:30 88 18 Room Air 21 01/14/18 04:00 98.0 93 18 140/57 94 98.0 01/14/18 00:00 97.5 101 18 145/57 95 Room Air 97.5 01/13/18 20:09 91 18 Room Air 21 01/13/18 20:00 97.0 103 18 124/74 95 Room Air 97.0 01/13/18 16:37 97.9 81 17 106/62 97 Room Air 97.9 Height (Feet): 5 Height (Inches): 9.00 Weight (Pounds): 180 Objective General Appearance: no apparent distress, alert HEENT: normocephalic, atraumatic PERRL Neck: full range of motion Respiratory: chest non-tender, lungs clear, normal breath sounds, speaking full sentences Cardiovascular regular rate, rhythm, no edema Gastrointestinal: normal bowel sounds, non tender, soft Musculoskeletal: back normal, gait/station normal, normal range of motion, non- tender Neurologic: alert, responsive, motor strength/tone normal, sensory intact, normal gait, speech normal, grossly normal Skin: no rash, warm/dry, well hydrated, other - hyperpigmentation of the bilateral feet and ankles, consistent with PAD/ insufficiency- chronic. no obvious wounds, no erythema Laboratory Tests Test 01/14/18 06:05 White Blood Count 9.1 K/UL (4.8-10.8) Red Blood Count 3.85 M/UL (4.70-6.10) L Hemoglobin 11.8 G/DL (14.2-18.0) L Hematocrit 35.4 % (42.0-52.0) L Mean Corpuscular Volume 92 FL (80-99) Mean Corpuscular Hemoglobin 30.6 PG (27.0-31.0) Mean Corpuscular Hemoglobin Concent 33.3 G/DL (32.0-36.0) Red Cell Distribution Width 13.2 % (11.6-14.8) Platelet Count 206 K/UL (150-450) Mean Platelet Volume 6.9 FL (6.5-10.1) Neutrophils (%) (Auto) % (45.0-75.0) Lymphocytes (%) (Auto) % (20.0-45.0) Monocytes (%) (Auto) % (1.0-10.0) Eosinophils (%) (Auto) % (0.0-3.0) Basophils (%) (Auto) % (0.0-2.0) Differential Total Cells Counted 100 Neutrophils % (Manual) 37 % (45-75) L Lymphocytes % (Manual) 55 % (20-45) H Monocytes % (Manual) 7 % (1-10) Eosinophils % (Manual) 1 % (0-3) Basophils % (Manual) 0 % (0-2) Band Neutrophils 0 % (0-8) Platelet Estimate Adequate Platelet Morphology Normal Red Blood Cell Morphology Normal Sodium Level 141 MMOL/L (136-145) Potassium Level 4.5 MMOL/L (3.5-5.1) Chloride Level 108 MMOL/L (98-107) H Carbon Dioxide Level 23 MMOL/L (21-32) Anion Gap 10 mmol/L (5-15) Blood Urea Nitrogen 40 mg/dL (7-18) H Creatinine 2.4 MG/DL (0.55-1.30) H Estimat Glomerular Filtration Rate 32.8 mL/min (>60) Glucose Level 101 MG/DL (74-106) Uric Acid 8.1 MG/DL (2.6-7.2) H Calcium Level 8.8 MG/DL (8.5-10.1) Phosphorus Level 3.6 MG/DL (2.5-4.9) Magnesium Level 1.8 MG/DL (1.8-2.4) Total Bilirubin 0.5 MG/DL (0.2-1.0) Aspartate Amino Transf (AST/SGOT) 25 U/L (15-37) Alanine Aminotransferase (ALT/SGPT) 21 U/L (12-78) Alkaline Phosphatase 119 U/L (46-116) H C-Reactive Protein, Quantitative < 0.4 mg/dL (0.00-0.90) Total Protein 7.3 G/DL (6.4-8.2) Albumin 2.8 G/DL (3.4-5.0) L Globulin 4.5 g/dL Albumin/Globulin Ratio 0.6 (1.0-2.7) L Current Medications Medications (Trade) Dose Ordered Sig/Lucie Route PRN Reason Start Time Stop Time Status Last Admin Dose Admin Acetaminophen (Tylenol) 650 mg Q4H PRN ORAL T>100.5 01/05/18 19:15 02/04/18 19:14 Albuterol/ Ipratropium (Albuterol/ Ipratropium) 3 ml Q4H PRN HHN Shortness of Breath 01/12/18 11:15 01/17/18 11:15 Amoxicillin (Amoxil) 500 mg Q12HR ORAL 01/13/18 21:00 01/19/18 22:00 01/14/18 09:32 Dextrose/Sodium Chloride 1,000 ml @ 100 mls/hr Q10H IV 01/13/18 15:30 02/12/18 15:29 01/14/18 12:23 Docusate Sodium (Colace) 100 mg TWICE A DAY ORAL 01/11/18 11:00 02/10/18 10:59 01/14/18 09:32 Haloperidol (Haldol) 5 mg Q4H PRN ORAL Agitation 01/05/18 19:15 02/04/18 19:14 01/11/18 20:34 Heparin Sodium (Porcine) (Heparin 5000 units/ml) 5,000 units EVERY 12 HOURS SUBQ 3/19/18 21:00 02/04/18 20:59 01/13/18 21:18 Lansoprazole (Prevacid) 30 mg DAILY ORAL 01/11/18 10:45 02/10/18 10:44 01/14/18 09:32 Metoprolol Tartrate (Lopressor) 25 mg Q12HR ORAL 01/14/18 21:00 02/13/18 20:59 Mirtazapine (Remeron) 15 mg BEDTIME ORAL 01/05/18 21:00 02/04/18 20:59 01/13/18 21:13 Morphine Sulfate (Morphine Sulfate) 2 mg Q4H PRN IM Moderate Pain (Pain Scale 4-6) 01/12/18 02:00 01/19/18 01:59 01/12/18 05:20 Morphine Sulfate (Morphine Sulfate) 2 mg Q4H PRN IVP Moderate Pain (Pain Scale 4-6) 01/10/18 15:15 01/17/18 15:15 Ondansetron HCl (Zofran) 4 mg Q6H PRN IVP Nausea & Vomiting 01/05/18 19:15 02/04/18 19:14 Phenazopyridine HCl (Pyridium) 100 mg DAILYPRN PRN ORAL dysuria 01/05/18 19:15 02/04/18 19:14 Polyethylene Glycol (Miralax) 17 gm DAILYPRN PRN ORAL Constipation 01/05/18 19:15 02/04/18 19:14 01/13/18 17:26 Quetiapine Fumarate (SEROquel) 50 mg Q8HR ORAL 01/12/18 22:00 02/11/18 21:59 01/14/18 07:13 Tamsulosin HCl (Flomax) 0.4 mg BEDTIME ORAL 01/11/18 21:00 02/10/18 20:59 01/13/18 21:13 Trimethoprim/ Sulfamethoxazole (Bactrim Single Strength) 1 ea TWICE A DAY ORAL 01/11/18 18:00 01/16/18 09:01 01/14/18 09:33 Janet Rowland M.D. Jan 14, 2018 13:30
[2018-01-14] MEDS ORDERED: D5NS 1000ml IV ONE (17:43)
[2018-01-14] MEDS ORDERED: NS 500ML ONE (17:43)
[2018-01-14] MEDS ORDERED: Tubing IV Secondary IV ONE (17:43)
--- NOTE | 2018-01-14 19:57 | General Progress Note ---
Assessment/Plan Assessment/Plan Dementia with behavioral disturbance mdd -seroquel 25 mg bid -ro -dc sitter Subjective Neurologic/Psychiatric: Reports: anxiety, depressed Allergies: Uncoded Allergies: anesthesia (Allergy, Unknown, 07/04/14) Subjective the pt is calmer slept well Objective Last 24 Hour Vital Signs Date Time Temp Pulse Resp B/P (MAP) Pulse Ox O2 Delivery O2 Flow Rate FiO2 01/14/18 16:30 66 01/14/18 15:58 98.8 99 19 146/94 97 Room Air 98.8 01/14/18 12:37 68 103/78 01/14/18 12:36 97.6 81 18 100/69 Room Air 97.6 01/14/18 12:29 97.8 141 21 92/56 Nasal Cannula 97.8 01/14/18 11:00 68 103/78 01/14/18 09:32 101 125/68 01/14/18 09:30 101 125/68 01/14/18 08:00 97.2 86 19 112/68 98 Room Air 97.2 01/14/18 07:30 88 18 Room Air 21 01/14/18 04:00 98.0 93 18 140/57 94 98.0 01/14/18 00:00 97.5 101 18 145/57 95 Room Air 97.5 01/13/18 20:09 91 18 Room Air 21 01/13/18 20:00 97.0 103 18 124/74 95 Room Air 97.0 Intake and Output 01/13/18 01/14/18 19:00 07:00 Intake Total 920 ml 500 ml Output Total 600 ml 600 ml Balance 320 ml -100 ml Intake Oral 720 ml IV Total 200 ml 500 ml Output Urine Total 600 ml 600 ml # Voids 1 Laboratory Tests 01/14/18 06:05: White Blood Count 9.1, Red Blood Count 3.85L, Hemoglobin 11.8L, Hematocrit 35.4L , Mean Corpuscular Volume 92, Mean Corpuscular Hemoglobin 30.6, Mean Corpuscular Hemoglobin Concent 33.3, Red Cell Distribution Width 13.2, Platelet Count 206, Mean Platelet Volume 6.9, Neutrophils (%) (Auto) , Lymphocytes (%) ( Auto) , Monocytes (%) (Auto) , Eosinophils (%) (Auto) , Basophils (%) (Auto) , Differential Total Cells Counted 100, Neutrophils % (Manual) 37L, Lymphocytes % (Manual) 55H, Monocytes % (Manual) 7, Eosinophils % (Manual) 1, Basophils % ( Manual) 0, Band Neutrophils 0, Platelet Estimate Adequate, Platelet Morphology Normal, Red Blood Cell Morphology Normal, Sodium Level 141, Potassium Level 4.5 , Chloride Level 108H, Carbon Dioxide Level 23, Anion Gap 10, Blood Urea Nitrogen 40H, Creatinine 2.4H, Estimat Glomerular Filtration Rate 32.8, Glucose Level 101, Uric Acid 8.1H, Calcium Level 8.8, Phosphorus Level 3.6, Magnesium Level 1.8, Total Bilirubin 0.5, Aspartate Amino Transf (AST/SGOT) 25, Alanine Aminotransferase (ALT/SGPT) 21, Alkaline Phosphatase 119H, C-Reactive Protein, Quantitative < 0.4, Total Protein 7.3, Albumin 2.8L, Globulin 4.5, Albumin/ Globulin Ratio 0.6L Height (Feet): 5 Height (Inches): 9.00 Weight (Pounds): 180 General Appearance: no apparent distress, alert, confused Mckenna Bermudez M.D. Jan 14, 2018 19:57
[2018-01-14] MEDS: Metoprolol 25mg tab ORAL SCH (22:01)
[2018-01-14] MEDS: Tamsulosin 0.4mg cap ORAL SCH (22:01)
[2018-01-15] VITALS: BP 113/60
[2018-01-15 04:00] VITALS: BP 102/57
[2018-01-15] MEDS: D5NS 1,000 ML IV SCH ×2 (06:27→17:28)
[2018-01-15 07:11] LABS: ANION GAP 9 mmol/L (5-15); BLOOD UREA NITROGEN 30 mg/dL (7-18); CALCIUM 8.2 MG/DL (8.5-10.1); CARBON DIOXIDE 23 MMOL/L (21-32); CHLORIDE 112 MMOL/L (98-107); CREATININE 2.1 MG/DL (0.55-1.30); POTASSIUM 4.7 MMOL/L (3.5-5.1); SODIUM 143 MMOL/L (136-145)
[2018-01-15 07:38] LABS: HEMATOCRIT 33.2 % (42.0-52.0); HEMOGLOBIN 11.2 G/DL (14.2-18.0); MEAN CORPUSCULAR VOLUME 92 FL (80-99); PLATELET COUNT 187 K/UL (150-450); RED BLOOD COUNT 3.62 M/UL (4.70-6.10); RED CELL DISTRIBUTION WIDTH 12.7 % (11.6-14.8); WHITE BLOOD COUNT 8.2 K/UL (4.8-10.8)
[2018-01-15 08:00] VITALS: BP 118/69
[2018-01-15] MEDS: Metoprolol 25mg tab ORAL SCH ×2 (09:00→21:38)
--- NOTE | 2018-01-15 09:26 | Nephrology Progress Note ---
Assessment/Plan Problem List: (1) CKD (chronic kidney disease) (2) Hyperkalemia (3) UTI (lower urinary tract infection) Assessment Pyelo with E coli ESBL CKD Cr rodney 2.7 down 2.4 and now 2.1 HTN Hx of CVA COPD dementia bilateral nephrolithiasis with persistent R hydronephrosis/obstructive Chronic hep C infection hx of IVDA Hx of prostate Ca L foot 2 nd toe amputation Hx of osteo L 2 nd toe and distal phalanx Plan Plan: up dose lopressor ? DC Bactrim?? due to kidney insufficiency Fluid challenge change diet to renal Kayexelate po Monitor renal parameters avoid nephrotoxics as possible Keep hydrated add lopressor add prevacid per orders Subjective ROS Limited/Unobtainable: No Constitutional: Reports: malaise Objective Objective Last 24 Hour Vital Signs Date Time Temp Pulse Resp B/P (MAP) Pulse Ox O2 Delivery O2 Flow Rate FiO2 01/15/18 04:00 97.9 64 20 102/57 97 97.9 01/15/18 00:00 97.3 66 20 113/60 96 97.3 01/14/18 22:01 79 123/70 01/14/18 20:00 97.4 79 20 123/70 97 97.4 01/14/18 19:30 80 18 Room Air 21 01/14/18 16:30 66 01/14/18 15:58 98.8 99 19 146/94 97 Room Air 98.8 01/14/18 12:37 68 103/78 01/14/18 12:36 97.6 81 18 100/69 Room Air 97.6 01/14/18 12:29 97.8 141 21 92/56 Nasal Cannula 97.8 01/14/18 11:00 68 103/78 01/14/18 09:32 101 125/68 01/14/18 09:30 101 125/68 Intake and Output 01/14/18 01/15/18 19:00 07:00 Intake Total 1100 ml 1340 ml Output Total 900 ml Balance 1100 ml 440 ml Intake Oral 500 ml 240 ml IV Total 600 ml 1100 ml Output Urine Total 900 ml # Voids 3 Laboratory Tests 01/15/18 05:25: White Blood Count 8.2, Red Blood Count 3.62L, Hemoglobin 11.2L, Hematocrit 33.2L , Mean Corpuscular Volume 92, Mean Corpuscular Hemoglobin 30.9, Mean Corpuscular Hemoglobin Concent 33.8, Red Cell Distribution Width 12.7, Platelet Count 187, Mean Platelet Volume 6.0L, Neutrophils (%) (Auto) , Lymphocytes (%) ( Auto) , Monocytes (%) (Auto) , Eosinophils (%) (Auto) , Basophils (%) (Auto) , Neutrophils % (Manual) [Pending], Lymphocytes % (Manual) [Pending], Platelet Estimate [Pending], Platelet Morphology [Pending], Sodium Level 143, Potassium Level 4.7, Chloride Level 112H, Carbon Dioxide Level 23, Anion Gap 9, Blood Urea Nitrogen 30H, Creatinine 2.1H, Estimat Glomerular Filtration Rate 38.3, Glucose Level 106, Calcium Level 8.2L Height (Feet): 5 Height (Inches): 9.00 Weight (Pounds): 180 General Appearance: no apparent distress Objective no change STEPHY HENDERSON Jan 15, 2018 09:26
--- NOTE | 2018-01-15 09:56 | Pulmonology Progress Note ---
Assessment/Plan Assessment/Plan ASSESSMENT Pyelo with E coli ESBL acute encephalopathy (likely due to UTI) on chronic dementia ARF on CKD HTN Hx of CVA COPD dementia with behavioral disturbances bilateral nephrolithiasis with persistent R hydronephrosis/obstructive Chronic hep C infection hx of IVDA Hx of prostate Ca L foot 2 nd toe amputation Hx of osteo L 2 nd toe and distal phalanx MDD hyperkalemia PLAN OF CARE MS floor abx ID follows, changed to oral urine cx + E coli ESBL CT A/P bilateral nephrolithiasis, L staghorn calculus, persistent R hydro urology eval appreciated: per urologist- R kidney already damaged and for L staghorn calculus recommended to defer percutaneous nephrolithotomy for treatment of that stone in this demented elderly ill patient. Pyridium Pain management psych eval appreciated nephro follows monitor renal parameters, lytes, correct lytes as needed avoid nephrotoxic, creat 01/13 u to 2.7 IVF, creat down to 2.4, on Bactrim - the only choice since the patient declined IV abx - discussed with ID X ray L foot no acute process podiatry eval appreciated arterial duplex noted BP management DVT prophylaxis O2 HHN prn CXR negative monitor renal parameters, lytes , avoid nephrotoxic PT/OT dc plan to SNF when arrangements made ( does not provide address of home , unclear if patient has a place to stay) SW follows case discussed and evaluated by supervising physician Subjective Allergies: Uncoded Allergies: anesthesia (Allergy, Unknown, 07/04/14) Subjective afebrile, leucocytosis resolved confused creat down to 2.1 awaiting for disposition Objective Last 24 Hour Vital Signs Date Time Temp Pulse Resp B/P (MAP) Pulse Ox O2 Delivery O2 Flow Rate FiO2 01/15/18 08:00 97.3 79 18 118/69 95 Room Air 97.3 01/15/18 04:00 97.9 64 20 102/57 97 97.9 01/15/18 00:00 97.3 66 20 113/60 96 97.3 01/14/18 22:01 79 123/70 01/14/18 20:00 97.4 79 20 123/70 97 97.4 01/14/18 19:30 80 18 Room Air 21 01/14/18 16:30 66 01/14/18 15:58 98.8 99 19 146/94 97 Room Air 98.8 01/14/18 12:37 68 103/78 01/14/18 12:36 97.6 81 18 100/69 Room Air 97.6 01/14/18 12:29 97.8 141 21 92/56 Nasal Cannula 97.8 01/14/18 11:00 68 103/78 Intake and Output 01/14/18 01/15/18 19:00 07:00 Intake Total 1100 ml 1340 ml Output Total 900 ml Balance 1100 ml 440 ml Intake Oral 500 ml 240 ml IV Total 600 ml 1100 ml Output Urine Total 900 ml # Voids 3 Objective General Appearance: no acute distress, confused HEENT: normocephalic, atraumatic, anicteric Respiratory/Chest: lungs clear - with moderate air exchange , no respiratory distress, no accessory muscle use Cardiovascular: normal peripheral pulses, normal rate, no JVD Abdomen: soft, non tender Extremities: no edema, left foot 2 nd toe amputated Neurologic/Psychiatric: alert, responsive Musculoskeletal: normal muscle bulk Laboratory Tests 01/15/18 05:25: White Blood Count 8.2, Red Blood Count 3.62L, Hemoglobin 11.2L, Hematocrit 33.2L , Mean Corpuscular Volume 92, Mean Corpuscular Hemoglobin 30.9, Mean Corpuscular Hemoglobin Concent 33.8, Red Cell Distribution Width 12.7, Platelet Count 187, Mean Platelet Volume 6.0L, Neutrophils (%) (Auto) , Lymphocytes (%) ( Auto) , Monocytes (%) (Auto) , Eosinophils (%) (Auto) , Basophils (%) (Auto) , Neutrophils % (Manual) [Pending], Lymphocytes % (Manual) [Pending], Platelet Estimate [Pending], Platelet Morphology [Pending], Sodium Level 143, Potassium Level 4.7, Chloride Level 112H, Carbon Dioxide Level 23, Anion Gap 9, Blood Urea Nitrogen 30H, Creatinine 2.1H, Estimat Glomerular Filtration Rate 38.3, Glucose Level 106, Calcium Level 8.2L Current Medications Medications (Trade) Dose Ordered Sig/Lucie Route PRN Reason Start Time Stop Time Status Last Admin Dose Admin Acetaminophen (Tylenol) 650 mg Q4H PRN ORAL T>100.5 01/05/18 19:15 02/04/18 19:14 Albuterol/ Ipratropium (Albuterol/ Ipratropium) 3 ml Q4H PRN HHN Shortness of Breath 01/12/18 11:15 01/17/18 11:15 Amoxicillin (Amoxil) 500 mg Q12HR ORAL 01/13/18 21:00 01/19/18 22:00 01/14/18 22:02 Dextrose/Sodium Chloride 1,000 ml @ 100 mls/hr Q10H IV 01/13/18 15:30 02/12/18 15:29 01/15/18 06:27 Docusate Sodium (Colace) 100 mg TWICE A DAY ORAL 01/11/18 11:00 02/10/18 10:59 01/14/18 17:07 Haloperidol (Haldol) 5 mg Q4H PRN ORAL Agitation 01/05/18 19:15 02/04/18 19:14 01/11/18 20:34 Heparin Sodium (Porcine) (Heparin 5000 units/ml) 5,000 units EVERY 12 HOURS SUBQ 01/05/18 21:00 02/04/18 20:59 01/14/18 22:03 Lansoprazole (Prevacid) 30 mg DAILY ORAL 01/11/18 10:45 02/10/18 10:44 01/14/18 09:32 Metoprolol Tartrate (Lopressor) 25 mg Q12HR ORAL 01/14/18 21:00 02/13/18 20:59 01/14/18 22:01 Mirtazapine (Remeron) 15 mg BEDTIME ORAL 01/05/18 21:00 02/04/18 20:59 01/14/18 22:02 Morphine Sulfate (Morphine Sulfate) 2 mg Q4H PRN IM Moderate Pain (Pain Scale 4-6) 01/12/18 02:00 01/19/18 01:59 01/12/18 05:20 Morphine Sulfate (Morphine Sulfate) 2 mg Q4H PRN IVP Moderate Pain (Pain Scale 4-6) 01/10/18 15:15 01/17/18 15:15 Ondansetron HCl (Zofran) 4 mg Q6H PRN IVP Nausea & Vomiting 01/05/18 19:15 02/04/18 19:14 Phenazopyridine HCl (Pyridium) 100 mg DAILYPRN PRN ORAL dysuria 01/05/18 19:15 02/04/18 19:14 Polyethylene Glycol (Miralax) 17 gm DAILYPRN PRN ORAL Constipation 01/05/18 19:15 02/04/18 19:14 01/13/18 17:26 Quetiapine Fumarate (SEROquel) 50 mg Q8HR ORAL 01/12/18 22:00 02/11/18 21:59 01/15/18 06:27 Tamsulosin HCl (Flomax) 0.4 mg BEDTIME ORAL 01/11/18 21:00 02/10/18 20:59 01/14/18 22:01 Trimethoprim/ Sulfamethoxazole (Bactrim Single Strength) 1 ea TWICE A DAY ORAL 01/11/18 18:00 01/16/18 09:01 01/14/18 17:07 [facility] WardRich[facility] CenterBaylee Yadav NP Jan 15, 2018 09:56
[2018-01-15] MEDS ORDERED: Albuterol/Ipratropium 3ml neb HHN PRN (10:00)
[2018-01-15] MEDS ORDERED: Morphine Sulfate 4mg/ml Inj IVP PRN (10:00)
[2018-01-15] MEDS ORDERED: Morphine Sulfate 2mg/ml Inj IVP PRN (10:00)
[2018-01-15] MEDS: Bactrim SS Tab ORAL SCH ×2 (10:19→17:40)
[2018-01-15] MEDS: Heparin 5000 units/ml inj SUBQ SCH ×2 (10:19→21:39)
[2018-01-15] MEDS: Docusate 100mg cap ORAL SCH ×2 (10:19→17:40)
[2018-01-15 12:00] VITALS: BP 121/77
--- NOTE | 2018-01-15 13:47 | General Progress Note ---
Assessment/Plan Assessment/Plan Dementia with behavioral disturbance mdd -seroquel 25 mg bid -ro -dc sitter Subjective Date patient seen: Jan 15, 2018 Neurologic/Psychiatric: Reports: anxiety, depressed, emotional problems Allergies: Uncoded Allergies: anesthesia (Allergy, Unknown, 07/04/14) Subjective the pt is calmer slept well however walks around Objective Last 24 Hour Vital Signs Date Time Temp Pulse Resp B/P (MAP) Pulse Ox O2 Delivery O2 Flow Rate FiO2 01/15/18 12:00 97.1 71 18 121/77 96 Room Air 97.1 01/15/18 09:00 77 114/58 01/15/18 08:00 97.3 79 18 118/69 95 Room Air 97.3 01/15/18 07:55 78 18 Room Air 21 01/15/18 04:00 97.9 64 20 102/57 97 97.9 01/15/18 00:00 97.3 66 20 113/60 96 97.3 01/14/18 22:01 79 123/70 01/14/18 20:00 97.4 79 20 123/70 97 97.4 01/14/18 19:30 80 18 Room Air 21 01/14/18 16:30 66 01/14/18 15:58 98.8 99 19 146/94 97 Room Air 98.8 Intake and Output 01/14/18 01/15/18 19:00 07:00 Intake Total 1100 ml 1340 ml Output Total 900 ml Balance 1100 ml 440 ml Intake Oral 500 ml 240 ml IV Total 600 ml 1100 ml Output Urine Total 900 ml # Voids 3 Laboratory Tests 01/15/18 05:25: White Blood Count 8.2, Red Blood Count 3.62L, Hemoglobin 11.2L, Hematocrit 33.2L , Mean Corpuscular Volume 92, Mean Corpuscular Hemoglobin 30.9, Mean Corpuscular Hemoglobin Concent 33.8, Red Cell Distribution Width 12.7, Platelet Count 187, Mean Platelet Volume 6.0L, Neutrophils (%) (Auto) , Lymphocytes (%) ( Auto) , Monocytes (%) (Auto) , Eosinophils (%) (Auto) , Basophils (%) (Auto) , Differential Total Cells Counted 100, Neutrophils % (Manual) 33L, Lymphocytes % (Manual) 52H, Monocytes % (Manual) 14H, Eosinophils % (Manual) 1, Basophils % ( Manual) 0, Band Neutrophils 0, Platelet Estimate Adequate, Platelet Morphology Normal, Hypochromasia 1+, Sodium Level 143, Potassium Level 4.7, Chloride Level 112H, Carbon Dioxide Level 23, Anion Gap 9, Blood Urea Nitrogen 30H, Creatinine 2.1H, Estimat Glomerular Filtration Rate 38.3, Glucose Level 106, Calcium Level 8.2L Height (Feet): 5 Height (Inches): 9.00 Weight (Pounds): 180 General Appearance: no apparent distress, alert, confused Mckenna Bermudez M.D. Jan 15, 2018 13:47
--- NOTE | 2018-01-15 15:58 | Infectious Diseases Prog Note ---
Assessment/Plan Assessment/Plan Assessment: R flank pain- chronic b/l calculus, possibly infected -CT abd/p: Distal right ureteral calculi, stable over multiple earlier studies dating back to 09/20/2014, again demonstrated. There is persistent right hydronephrosis and right renal atrophy. Nonobstructive right lower pole renal calculi are again demonstrated. Large left renal staghorn calculus, also present as far back as 2013. Mild right hydronephrosis but no ureteral calculi or hydroureter. Other nonobstructive left lower pole renal calculi are also evident. Gas bubbles within the left renal collecting system and bladder, markedly decreased from the previous 2016 exam. Uncertain as to whether these represent bladder instrumentation with reflux into the left renal collecting system, versus artifact due to infection with gas -forming organism. Correlate with clinical and laboratory findings. The bladder wall is also mildly thickened, unchanged from previously. Cystitis a possibility. Left renal cyst, also previously described. Cholelithiasis, new since prior study. Left basilar dependent pulmonary parenchymal atelectasis. Evidence of COPD, with hyperinflation and a single small bulla. Evidence of prior prostatectomy -u/a wbc 30-40, nit +, leuk +3; ucx >100K ESBL E.coli (S zozyn, nitrofurantoin , bactrim, ertapenem;R levo); repeat u/a 01/08 wbc tntc, nit+, leuk +3; ucx 50- 60k E.fecalis (S vanco, amp; R levo) -Bcx Neg Mild leukocytosis, resolved -CXR no acute process -Xray R foot and L foot: no acute process HAMZAH on CKD, improving recent possible UTI oct 2017, s/p Rx -u/a WBC TNTC- ucx >100k E. fecalis (S Vanco, amp), 30-40k mixed gram positive growth Chronic Hep C infection - hEp C VL 42K 10/2017 -Hep A Imm, Hep B Ab neg, HIV Neg History of recurrent urinary tract infection. History of osteomyelitis of the second left toe and distal phalanx. History of prostate cancer. History of renal stone and CKD. Dementia HTN CVA hx IVDA Plan: - Continue Bactrim DS 1 tab bid #9/10 for possible ESBL UTI and PO Amoxicillin # 4/5 for enterococcal coverage -monitor Cr, K- if worsening cr, place PIV and switch to Ertapenem- Cr improved to IVFs hydration -01/10 SP Ertapenem #4 -01/06 SP IV Vancomycin #2 -01/05 SP Ceftriaxone x1 -11/12 SP PO ampicillin #14 -uro eval- no intervention needed a this point -monitor CBC/BMP, temperatures -pain control -aspiration precautions. Thank you for this consultation. Will continue to follow along with you. Discussed with RN. Subjective Allergies: Uncoded Allergies: anesthesia (Allergy, Unknown, 07/04/14) Subjective afebrile no leukocytosis Cr improving Objective Vital Signs Last 24 Hour Vital Signs Date Time Temp Pulse Resp B/P (MAP) Pulse Ox O2 Delivery O2 Flow Rate FiO2 01/15/18 12:00 97.1 71 18 121/77 96 Room Air 97.1 01/15/18 09:00 77 114/58 01/15/18 08:00 97.3 79 18 118/69 95 Room Air 97.3 01/15/18 07:55 78 18 Room Air 21 01/15/18 04:00 97.9 64 20 102/57 97 97.9 01/15/18 00:00 97.3 66 20 113/60 96 97.3 01/14/18 22:01 79 123/70 01/14/18 20:00 97.4 79 20 123/70 97 97.4 01/14/18 19:30 80 18 Room Air 21 01/14/18 16:30 66 01/14/18 15:58 98.8 99 19 146/94 97 Room Air 98.8 Height (Feet): 5 Height (Inches): 9.00 Weight (Pounds): 180 Objective General Appearance: no apparent distress, alert HEENT: normocephalic, atraumatic PERRL Neck: full range of motion Respiratory: chest non-tender, lungs clear, normal breath sounds, speaking full sentences Cardiovascular regular rate, rhythm, no edema Gastrointestinal: normal bowel sounds, non tender, soft Musculoskeletal: back normal, gait/station normal, normal range of motion, non- tender Neurologic: alert, responsive, motor strength/tone normal, sensory intact, normal gait, speech normal, grossly normal Skin: no rash, warm/dry, well hydrated, other - hyperpigmentation of the bilateral feet and ankles, consistent with PAD/ insufficiency- chronic. no obvious wounds, no erythema Laboratory Tests Test 01/15/18 05:25 White Blood Count 8.2 K/UL (4.8-10.8) Red Blood Count 3.62 M/UL (4.70-6.10) L Hemoglobin 11.2 G/DL (14.2-18.0) L Hematocrit 33.2 % (42.0-52.0) L Mean Corpuscular Volume 92 FL (80-99) Mean Corpuscular Hemoglobin 30.9 PG (27.0-31.0) Mean Corpuscular Hemoglobin Concent 33.8 G/DL (32.0-36.0) Red Cell Distribution Width 12.7 % (11.6-14.8) Platelet Count 187 K/UL (150-450) Mean Platelet Volume 6.0 FL (6.5-10.1) L Neutrophils (%) (Auto) % (45.0-75.0) Lymphocytes (%) (Auto) % (20.0-45.0) Monocytes (%) (Auto) % (1.0-10.0) Eosinophils (%) (Auto) % (0.0-3.0) Basophils (%) (Auto) % (0.0-2.0) Differential Total Cells Counted 100 Neutrophils % (Manual) 33 % (45-75) L Lymphocytes % (Manual) 52 % (20-45) H Monocytes % (Manual) 14 % (1-10) H Eosinophils % (Manual) 1 % (0-3) Basophils % (Manual) 0 % (0-2) Band Neutrophils 0 % (0-8) Platelet Estimate Adequate Platelet Morphology Normal Hypochromasia 1+ Sodium Level 143 MMOL/L (136-145) Potassium Level 4.7 MMOL/L (3.5-5.1) Chloride Level 112 MMOL/L (98-107) H Carbon Dioxide Level 23 MMOL/L (21-32) Anion Gap 9 mmol/L (5-15) Blood Urea Nitrogen 30 mg/dL (7-18) H Creatinine 2.1 MG/DL (0.55-1.30) H Estimat Glomerular Filtration Rate 38.3 mL/min (>60) Glucose Level 106 MG/DL (74-106) Calcium Level 8.2 MG/DL (8.5-10.1) L Current Medications Medications (Trade) Dose Ordered Sig/Lucie Route PRN Reason Start Time Stop Time Status Last Admin Dose Admin Acetaminophen (Tylenol) 650 mg Q4H PRN ORAL T>100.5 01/05/18 19:15 02/04/18 19:14 Albuterol/ Ipratropium (Albuterol/ Ipratropium) 3 ml Q4H PRN HHN Shortness of Breath 01/15/18 10:00 01/20/18 09:59 Amoxicillin (Amoxil) 500 mg Q12HR ORAL 01/13/18 21:00 01/19/18 22:00 01/15/18 10:25 Dextrose/Sodium Chloride 1,000 ml @ 100 mls/hr Q10H IV 01/13/18 15:30 02/12/18 15:29 01/15/18 06:27 Docusate Sodium (Colace) 100 mg TWICE A DAY ORAL 01/11/18 11:00 02/10/18 10:59 01/15/18 10:19 Haloperidol (Haldol) 5 mg Q4H PRN ORAL Agitation 01/05/18 19:15 02/04/18 19:14 01/11/18 20:34 Heparin Sodium (Porcine) (Heparin 5000 units/ml) 5,000 units EVERY 12 HOURS SUBQ 01/05/18 21:00 02/04/18 20:59 01/15/18 10:19 Lansoprazole (Prevacid) 30 mg DAILY ORAL 01/11/18 10:45 02/10/18 10:44 01/15/18 10:18 Metoprolol Tartrate (Lopressor) 25 mg Q12HR ORAL 01/14/18 21:00 02/13/18 20:59 01/14/18 22:01 Mirtazapine (Remeron) 15 mg BEDTIME ORAL 01/05/18 21:00 02/04/18 20:59 01/14/18 22:02 Morphine Sulfate (Morphine Sulfate) 2 mg Q4H PRN IVP Moderate Pain (Pain Scale 4-6) 01/15/18 10:00 01/22/18 09:59 Ondansetron HCl (Zofran) 4 mg Q6H PRN IVP Nausea & Vomiting 01/05/18 19:15 02/04/18 19:14 Phenazopyridine HCl (Pyridium) 100 mg DAILYPRN PRN ORAL dysuria 01/05/18 19:15 02/04/18 19:14 Polyethylene Glycol (Miralax) 17 gm DAILYPRN PRN ORAL Constipation 01/05/18 19:15 02/04/18 19:14 01/13/18 17:26 Quetiapine Fumarate (SEROquel) 50 mg Q8HR ORAL 01/12/18 22:00 02/11/18 21:59 01/15/18 14:14 Tamsulosin HCl (Flomax) 0.4 mg BEDTIME ORAL 01/11/18 21:00 02/10/18 20:59 01/14/18 22:01 Trimethoprim/ Sulfamethoxazole (Bactrim Single Strength) 1 ea TWICE A DAY ORAL 01/11/18 18:00 01/16/18 09:01 01/15/18 10:19 Janet Rowland M.D. Jan 15, 2018 15:58
[2018-01-15 16:00] VITALS: BP 118/69
[2018-01-15 20:00] VITALS: BP 136/81
[2018-01-15] MEDS: Tamsulosin 0.4mg cap ORAL SCH (21:38)
[2018-01-16] VITALS: BP 131/83
[2018-01-16] MEDS: D5NS 1,000 ML IV SCH ×3 (03:32→23:30)
[2018-01-16 08:00] VITALS: BP 115/73
--- NOTE | 2018-01-16 08:52 | Diagnostic Imaging Report ---
APPROVED REPORT CPT Code: 08252 Symptoms Comments: Pain VELOCITY MEASUREMENTS AND DOPPLER WAVEFORM ANALYSIS RIGHTcm/secWaveformSeverityLEFTcm/secWaveformSeverity Com Fem Art. 64TriphasicCom Fem Art. 42Triphasic Fem Art Prox. 56TriphasicFem Art Prox. 54Triphasic Fem Art Mid. 50TriphasicFem Art Mid. 46Triphasic Fem Art Dist. 55TriphasicFem Art Dist. 56Triphasic Pop Art Prox. 37TriphasicPop Art Prox. 45Triphasic WIRE MACHINE OPERATOR Prox. 49TriphasicPTA Prox. 34Triphasic Per Art Prox. 25BiphasicPer Art Prox. 21Biphasic TERESSA Prox. 37TriphasicATA Prox. 22Triphasic BILATERAL: Common femoral artery waveform analysis is within normal limits at rest. Color flow duplex sonography reveals minimal calcification throughout the superficial femoral, and popliteal arteries. There is no evidence of stenosis or occlusion within these segments. The posterior tibial, anterior tibial and dorsalis pedis arteries are also patent. Doppler tibial artery waveform (multiphasic) analysis is within normal limits bilaterally. NOTE: Doppler flow amplitude of the tibial arteries appears to be low.
[2018-01-16 09:37] VITALS: BP 118/73
[2018-01-16 09:37] LABS: HEMATOCRIT 35.3 % (42.0-52.0); HEMOGLOBIN 11.6 G/DL (14.2-18.0); MEAN CORPUSCULAR VOLUME 91 FL (80-99); PLATELET COUNT 220 K/UL (150-450); RED BLOOD COUNT 3.88 M/UL (4.70-6.10); RED CELL DISTRIBUTION WIDTH 12.7 % (11.6-14.8); WHITE BLOOD COUNT 8.7 K/UL (4.8-10.8)
[2018-01-16] MEDS: Docusate 100mg cap ORAL SCH ×2 (09:38→17:53)
[2018-01-16] MEDS: Metoprolol 25mg tab ORAL SCH ×2 (09:39→21:22)
[2018-01-16] MEDS: Bactrim SS Tab ORAL SCH (09:39)
[2018-01-16] MEDS: Heparin 5000 units/ml inj SUBQ SCH ×2 (09:40→21:23)
[2018-01-16 09:59] LABS: ANION GAP 10 mmol/L (5-15); BLOOD UREA NITROGEN 34 mg/dL (7-18); CARBON DIOXIDE 22 MMOL/L (21-32); CHLORIDE 109 MMOL/L (98-107); CREATININE 2.1 MG/DL (0.55-1.30); POTASSIUM 4.7 MMOL/L (3.5-5.1); SODIUM 141 MMOL/L (136-145)
--- NOTE | 2018-01-16 10:26 | Pulmonology Progress Note ---
Assessment/Plan Assessment/Plan ASSESSMENT Pyelo with E coli ESBL and Enterococci faecalis acute encephalopathy (likely due to UTI) on chronic dementia ARF on CKD HTN Hx of CVA COPD dementia with behavioral disturbances bilateral nephrolithiasis with persistent R hydronephrosis/obstructive Chronic hep C infection hx of IVDA Hx of prostate Ca L foot 2 nd toe amputation Hx of osteo L 2 nd toe and distal phalanx MDD hyperkalemia PLAN OF CARE MS floor abx ID follows, changed to oral , last day today urine cx + E coli ESBL , repeated + Enterococci faecalis CT A/P bilateral nephrolithiasis, L staghorn calculus, persistent R hydro urology eval appreciated: per urologist- R kidney already damaged and for L staghorn calculus recommended to defer percutaneous nephrolithotomy for treatment of that stone in this demented elderly ill patient. Pyridium Pain management psych eval appreciated nephro follows monitor renal parameters, lytes, correct lytes as needed avoid nephrotoxic, creat 01/13 u to 2.7 IVF, creat down to 2.1, s/p Bactrim, on Amoxicillin now X ray L foot no acute process podiatry eval appreciated arterial duplex noted BP management DVT prophylaxis O2 HHN prn CXR negative monitor renal parameters, lytes , avoid nephrotoxic PT/OT dc plan to SNF when arrangements made ( does not provide address of home , unclear if patient has a place to stay) SW follows case discussed and evaluated by supervising physician Subjective Allergies: Uncoded Allergies: anesthesia (Allergy, Unknown, 07/04/14) Subjective afebrile, leucocytosis resolved ambulates, stable mood today creat down to 2.1 awaiting for disposition Objective Last 24 Hour Vital Signs Date Time Temp Pulse Resp B/P (MAP) Pulse Ox O2 Delivery O2 Flow Rate FiO2 01/16/18 09:39 91 118/73 01/16/18 09:37 97.8 91 20 118/73 97 97.8 01/16/18 08:00 97.8 90 20 115/73 97 97.8 01/16/18 00:00 97.2 68 20 131/83 96 97.2 01/15/18 21:38 76 136/81 01/15/18 20:00 97.6 76 20 136/81 98 97.6 01/15/18 19:07 92 18 Room Air 01/15/18 16:00 97.3 79 18 118/69 95 Room Air 97.3 01/15/18 12:00 97.1 71 18 121/77 96 Room Air 97.1 Intake and Output 01/15/18 01/16/18 19:00 07:00 Intake Total 930 ml 250 ml Balance 930 ml 250 ml Intake Oral 830 ml 250 ml IV Total 100 ml # Voids 2 2 Objective General Appearance: no acute distress, confused HEENT: normocephalic, atraumatic, anicteric Respiratory/Chest: lungs clear - with moderate air exchange , no respiratory distress, no accessory muscle use Cardiovascular: normal peripheral pulses, normal rate, no JVD Abdomen: soft, non tender Extremities: no edema, left foot 2 nd toe amputated Neurologic/Psychiatric: alert, responsive Musculoskeletal: normal muscle bulk Laboratory Tests 01/16/18 09:30: White Blood Count 8.7, Red Blood Count 3.88L, Hemoglobin 11.6L, Hematocrit 35.3L , Mean Corpuscular Volume 91, Mean Corpuscular Hemoglobin 30.0, Mean Corpuscular Hemoglobin Concent 32.9, Red Cell Distribution Width 12.7, Platelet Count 220, Mean Platelet Volume 6.2L, Neutrophils (%) (Auto) , Lymphocytes (%) ( Auto) , Monocytes (%) (Auto) , Eosinophils (%) (Auto) , Basophils (%) (Auto) , Differential Total Cells Counted 100, Neutrophils % (Manual) 50, Lymphocytes % ( Manual) 40, Monocytes % (Manual) 8, Eosinophils % (Manual) 2, Basophils % ( Manual) 0, Band Neutrophils 0, Platelet Estimate Adequate, Platelet Morphology Normal, Hypochromasia 1+, Sodium Level 141, Potassium Level 4.7, Chloride Level 109H, Carbon Dioxide Level 22, Anion Gap 10, Blood Urea Nitrogen 34H, Creatinine 2.1H, Estimat Glomerular Filtration Rate 38.3, Glucose Level 135H, Calcium Level 9.0 Current Medications Medications (Trade) Dose Ordered Sig/Lucie Route PRN Reason Start Time Stop Time Status Last Admin Dose Admin Acetaminophen (Tylenol) 650 mg Q4H PRN ORAL T>100.5 01/05/18 19:15 02/04/18 19:14 Albuterol/ Ipratropium (Albuterol/ Ipratropium) 3 ml Q4H PRN HHN Shortness of Breath 01/15/18 10:00 01/20/18 09:59 Amoxicillin (Amoxil) 500 mg Q12HR ORAL 01/13/18 21:00 01/19/18 22:00 01/16/18 09:39 Dextrose/Sodium Chloride 1,000 ml @ 100 mls/hr Q10H IV 01/13/18 15:30 02/12/18 15:29 01/16/18 03:32 Docusate Sodium (Colace) 100 mg TWICE A DAY ORAL 01/11/18 11:00 02/10/18 10:59 01/16/18 09:38 Haloperidol (Haldol) 5 mg Q4H PRN ORAL Agitation 01/05/18 19:15 02/04/18 19:14 01/11/18 20:34 Heparin Sodium (Porcine) (Heparin 5000 units/ml) 5,000 units EVERY 12 HOURS SUBQ 01/05/18 21:00 02/04/18 20:59 01/16/18 09:40 Lansoprazole (Prevacid) 30 mg DAILY ORAL 01/11/18 10:45 02/10/18 10:44 01/16/18 09:38 Metoprolol Tartrate (Lopressor) 25 mg Q12HR ORAL 01/14/18 21:00 02/13/18 20:59 01/16/18 09:39 Mirtazapine (Remeron) 15 mg BEDTIME ORAL 01/05/18 21:00 02/04/18 20:59 01/15/18 21:37 Morphine Sulfate (Morphine Sulfate) 2 mg Q4H PRN IVP Moderate Pain (Pain Scale 4-6) 01/15/18 10:00 01/22/18 09:59 Ondansetron HCl (Zofran) 4 mg Q6H PRN IVP Nausea & Vomiting 01/05/18 19:15 02/04/18 19:14 Phenazopyridine HCl (Pyridium) 100 mg DAILYPRN PRN ORAL dysuria 01/05/18 19:15 02/04/18 19:14 Polyethylene Glycol (Miralax) 17 gm DAILYPRN PRN ORAL Constipation 01/05/18 19:15 02/04/18 19:14 01/13/18 17:26 Quetiapine Fumarate (SEROquel) 50 mg Q8HR ORAL 01/12/18 22:00 02/11/18 21:59 01/16/18 05:33 Tamsulosin HCl (Flomax) 0.4 mg BEDTIME ORAL 01/11/18 21:00 02/10/18 20:59 01/15/18 21:38 [facility]Baylee NP Jan 16, 2018 10:26
--- NOTE | 2018-01-16 11:33 | Nephrology Progress Note ---
Assessment/Plan Problem List: (1) CKD (chronic kidney disease) (2) Hyperkalemia (3) UTI (lower urinary tract infection) Assessment Pyelo with E coli ESBL CKD Cr rodney 2.7 down 2.4 and now 2.1 HTN Hx of CVA COPD dementia bilateral nephrolithiasis with persistent R hydronephrosis/obstructive Chronic hep C infection hx of IVDA Hx of prostate Ca L foot 2 nd toe amputation Hx of osteo L 2 nd toe and distal phalanx Plan Plan: up dose lopressor ? DC Bactrim?? due to kidney insufficiency Fluid challenge change diet to renal Kayexelate po Monitor renal parameters avoid nephrotoxics as possible Keep hydrated add lopressor add prevacid per orders Subjective ROS Limited/Unobtainable: No Objective Objective Last 24 Hour Vital Signs Date Time Temp Pulse Resp B/P (MAP) Pulse Ox O2 Delivery O2 Flow Rate FiO2 01/16/18 09:39 91 118/73 01/16/18 09:37 97.8 91 20 118/73 97 97.8 01/16/18 08:00 97.8 90 20 115/73 97 97.8 01/16/18 00:00 97.2 68 20 131/83 96 97.2 01/15/18 21:38 76 136/81 01/15/18 20:00 97.6 76 20 136/81 98 97.6 01/15/18 19:07 92 18 Room Air 01/15/18 16:00 97.3 79 18 118/69 95 Room Air 97.3 01/15/18 12:00 97.1 71 18 121/77 96 Room Air 97.1 Intake and Output 01/15/18 01/16/18 19:00 07:00 Intake Total 930 ml 250 ml Balance 930 ml 250 ml Intake Oral 830 ml 250 ml IV Total 100 ml # Voids 2 2 Laboratory Tests 01/16/18 09:30: White Blood Count 8.7, Red Blood Count 3.88L, Hemoglobin 11.6L, Hematocrit 35.3L , Mean Corpuscular Volume 91, Mean Corpuscular Hemoglobin 30.0, Mean Corpuscular Hemoglobin Concent 32.9, Red Cell Distribution Width 12.7, Platelet Count 220, Mean Platelet Volume 6.2L, Neutrophils (%) (Auto) , Lymphocytes (%) ( Auto) , Monocytes (%) (Auto) , Eosinophils (%) (Auto) , Basophils (%) (Auto) , Differential Total Cells Counted 100, Neutrophils % (Manual) 50, Lymphocytes % ( Manual) 40, Monocytes % (Manual) 8, Eosinophils % (Manual) 2, Basophils % ( Manual) 0, Band Neutrophils 0, Platelet Estimate Adequate, Platelet Morphology Normal, Hypochromasia 1+, Sodium Level 141, Potassium Level 4.7, Chloride Level 109H, Carbon Dioxide Level 22, Anion Gap 10, Blood Urea Nitrogen 34H, Creatinine 2.1H, Estimat Glomerular Filtration Rate 38.3, Glucose Level 135H, Calcium Level 9.0 Height (Feet): 5 Height (Inches): 9.00 Weight (Pounds): 180 General Appearance: no apparent distress Objective no change STEPHY HENDERSON Jan 16, 2018 11:33
[2018-01-16] MEDS ORDERED: LOPRESSOR25 M1 ORAL (12:25)
[2018-01-16] MEDS ORDERED: DiphenhydrAMINE 50mg/ml Inj IVP PRN (13:15)
[2018-01-16] MEDS ORDERED: LORazepam Inj 2mg/ml 1ml IV PRN (13:30)
--- NOTE | 2018-01-16 14:13 | General Progress Note ---
Assessment/Plan Status: stable Assessment/Plan Dementia with behavioral disturbance mdd -seroquel 25 mg bid -ro -Nuedexta once daily Subjective Date patient seen: Jan 16, 2018 Neurologic/Psychiatric: Reports: anxiety, emotional problems Allergies: Uncoded Allergies: anesthesia (Allergy, Unknown, 07/04/14) Subjective anxious walks around Objective Last 24 Hour Vital Signs Date Time Temp Pulse Resp B/P (MAP) Pulse Ox O2 Delivery O2 Flow Rate FiO2 01/16/18 09:39 91 118/73 01/16/18 09:37 97.8 91 20 118/73 97 97.8 01/16/18 08:00 97.8 90 20 115/73 97 97.8 01/16/18 00:00 97.2 68 20 131/83 96 97.2 01/15/18 21:38 76 136/81 01/15/18 20:00 97.6 76 20 136/81 98 97.6 01/15/18 19:07 92 18 Room Air 01/15/18 16:00 97.3 79 18 118/69 95 Room Air 97.3 Intake and Output 01/15/18 01/16/18 19:00 07:00 Intake Total 930 ml 250 ml Balance 930 ml 250 ml Intake Oral 830 ml 250 ml IV Total 100 ml # Voids 2 2 Laboratory Tests 01/16/18 09:30: White Blood Count 8.7, Red Blood Count 3.88L, Hemoglobin 11.6L, Hematocrit 35.3L , Mean Corpuscular Volume 91, Mean Corpuscular Hemoglobin 30.0, Mean Corpuscular Hemoglobin Concent 32.9, Red Cell Distribution Width 12.7, Platelet Count 220, Mean Platelet Volume 6.2L, Neutrophils (%) (Auto) , Lymphocytes (%) ( Auto) , Monocytes (%) (Auto) , Eosinophils (%) (Auto) , Basophils (%) (Auto) , Differential Total Cells Counted 100, Neutrophils % (Manual) 50, Lymphocytes % ( Manual) 40, Monocytes % (Manual) 8, Eosinophils % (Manual) 2, Basophils % ( Manual) 0, Band Neutrophils 0, Platelet Estimate Adequate, Platelet Morphology Normal, Hypochromasia 1+, Sodium Level 141, Potassium Level 4.7, Chloride Level 109H, Carbon Dioxide Level 22, Anion Gap 10, Blood Urea Nitrogen 34H, Creatinine 2.1H, Estimat Glomerular Filtration Rate 38.3, Glucose Level 135H, Calcium Level 9.0 Height (Feet): 5 Height (Inches): 9.00 Weight (Pounds): 180 General Appearance: no apparent distress, alert, confused, agitated Mckenna Bermudez M.D. Jan 16, 2018 14:13
--- NOTE | 2018-01-16 14:59 | Infectious Diseases Prog Note ---
Assessment/Plan Assessment/Plan Assessment: R flank pain- chronic b/l calculus, possibly infected -CT abd/p: Distal right ureteral calculi, stable over multiple earlier studies dating back to 09/20/2014, again demonstrated. There is persistent right hydronephrosis and right renal atrophy. Nonobstructive right lower pole renal calculi are again demonstrated. Large left renal staghorn calculus, also present as far back as 2013. Mild right hydronephrosis but no ureteral calculi or hydroureter. Other nonobstructive left lower pole renal calculi are also evident. Gas bubbles within the left renal collecting system and bladder, markedly decreased from the previous 2016 exam. Uncertain as to whether these represent bladder instrumentation with reflux into the left renal collecting system, versus artifact due to infection with gas -forming organism. Correlate with clinical and laboratory findings. The bladder wall is also mildly thickened, unchanged from previously. Cystitis a possibility. Left renal cyst, also previously described. Cholelithiasis, new since prior study. Left basilar dependent pulmonary parenchymal atelectasis. Evidence of COPD, with hyperinflation and a single small bulla. Evidence of prior prostatectomy -u/a wbc 30-40, nit +, leuk +3; ucx >100K ESBL E.coli (S zozyn, nitrofurantoin , bactrim, ertapenem;R levo); repeat u/a 01/08 wbc tntc, nit+, leuk +3; ucx 50- 60k E.fecalis (S vanco, amp; R levo) -Bcx Neg Mild leukocytosis, resolved -CXR no acute process -Xray R foot and L foot: no acute process HAMZAH on CKD, improving recent possible UTI oct 2017, s/p Rx -u/a WBC TNTC- ucx >100k E. fecalis (S Vanco, amp), 30-40k mixed gram positive growth Chronic Hep C infection - hEp C VL 42K 10/2017 -Hep A Imm, Hep B Ab neg, HIV Neg History of recurrent urinary tract infection. History of osteomyelitis of the second left toe and distal phalanx. History of prostate cancer. History of renal stone and CKD. Dementia HTN CVA hx IVDA Plan: - Continue Bactrim DS 1 tab bid #07/29 for possible ESBL UTI and PO Amoxicillin #5/5 for enterococcal coverage -monitor Cr, K -01/10 SP Ertapenem #4 -01/06 SP IV Vancomycin #2 -01/05 SP Ceftriaxone x1 -11/12 SP PO ampicillin #14 -uro eval- no intervention needed a this point -monitor CBC/BMP, temperatures -pain control -aspiration precautions. Thank you for this consultation. Will continue to follow along with you. Discussed with RN. Subjective Allergies: Uncoded Allergies: anesthesia (Allergy, Unknown, 07/04/14) Subjective afebrile no leukocytosis Cr improving Objective Vital Signs Last 24 Hour Vital Signs Date Time Temp Pulse Resp B/P (MAP) Pulse Ox O2 Delivery O2 Flow Rate FiO2 01/16/18 09:39 91 118/73 01/16/18 09:37 97.8 91 20 118/73 97 97.8 01/16/18 08:00 97.8 90 20 115/73 97 97.8 01/16/18 00:00 97.2 68 20 131/83 96 97.2 01/15/18 21:38 76 136/81 01/15/18 20:00 97.6 76 20 136/81 98 97.6 01/15/18 19:07 92 18 Room Air 01/15/18 16:00 97.3 79 18 118/69 95 Room Air 97.3 Height (Feet): 5 Height (Inches): 9.00 Weight (Pounds): 180 Objective General Appearance: no apparent distress, alert HEENT: normocephalic, atraumatic PERRL Neck: full range of motion Respiratory: chest non-tender, lungs clear, normal breath sounds, speaking full sentences Cardiovascular regular rate, rhythm, no edema Gastrointestinal: normal bowel sounds, non tender, soft Musculoskeletal: back normal, gait/station normal, normal range of motion, non- tender Neurologic: alert, responsive, motor strength/tone normal, sensory intact, normal gait, speech normal, grossly normal Skin: no rash, warm/dry, well hydrated, other - hyperpigmentation of the bilateral feet and ankles, consistent with PAD/ insufficiency- chronic. no obvious wounds, no erythema Laboratory Tests Test 01/16/18 09:30 White Blood Count 8.7 K/UL (4.8-10.8) Red Blood Count 3.88 M/UL (4.70-6.10) L Hemoglobin 11.6 G/DL (14.2-18.0) L Hematocrit 35.3 % (42.0-52.0) L Mean Corpuscular Volume 91 FL (80-99) Mean Corpuscular Hemoglobin 30.0 PG (27.0-31.0) Mean Corpuscular Hemoglobin Concent 32.9 G/DL (32.0-36.0) Red Cell Distribution Width 12.7 % (11.6-14.8) Platelet Count 220 K/UL (150-450) Mean Platelet Volume 6.2 FL (6.5-10.1) L Neutrophils (%) (Auto) % (45.0-75.0) Lymphocytes (%) (Auto) % (20.0-45.0) Monocytes (%) (Auto) % (1.0-10.0) Eosinophils (%) (Auto) % (0.0-3.0) Basophils (%) (Auto) % (0.0-2.0) Differential Total Cells Counted 100 Neutrophils % (Manual) 50 % (45-75) Lymphocytes % (Manual) 40 % (20-45) Monocytes % (Manual) 8 % (1-10) Eosinophils % (Manual) 2 % (0-3) Basophils % (Manual) 0 % (0-2) Band Neutrophils 0 % (0-8) Platelet Estimate Adequate Platelet Morphology Normal Hypochromasia 1+ Sodium Level 141 MMOL/L (136-145) Potassium Level 4.7 MMOL/L (3.5-5.1) Chloride Level 109 MMOL/L (98-107) H Carbon Dioxide Level 22 MMOL/L (21-32) Anion Gap 10 mmol/L (5-15) Blood Urea Nitrogen 34 mg/dL (7-18) H Creatinine 2.1 MG/DL (0.55-1.30) H Estimat Glomerular Filtration Rate 38.3 mL/min (>60) Glucose Level 135 MG/DL (74-106) H Calcium Level 9.0 MG/DL (8.5-10.1) Current Medications Medications (Trade) Dose Ordered Sig/Lucie Route PRN Reason Start Time Stop Time Status Last Admin Dose Admin Acetaminophen (Tylenol) 650 mg Q4H PRN ORAL T>100.5 01/05/18 19:15 02/04/18 19:14 Albuterol/ Ipratropium (Albuterol/ Ipratropium) 3 ml Q4H PRN HHN Shortness of Breath 01/15/18 10:00 01/20/18 09:59 Amoxicillin (Amoxil) 500 mg Q12HR ORAL 01/13/18 21:00 01/19/18 22:00 01/16/18 09:39 Dextromethorphan/ Quinidine (Nuedexta Capsule) 1 cap DAILY ORAL 01/16/18 16:00 01/22/18 09:01 Dextromethorphan/ Quinidine (Nuedexta Capsule) 1 cap Q12HR ORAL 01/23/18 09:00 02/22/18 08:59 Dextrose/Sodium Chloride 1,000 ml @ 100 mls/hr Q10H IV 01/13/18 15:30 02/12/18 15:29 01/16/18 03:32 Diphenhydramine HCl (Benadryl) 25 mg Q6H PRN IVP Itching 01/16/18 13:15 02/15/18 13:14 Docusate Sodium (Colace) 100 mg TWICE A DAY ORAL 01/11/18 11:00 02/10/18 10:59 01/16/18 09:38 Heparin Sodium (Porcine) (Heparin 5000 units/ml) 5,000 units EVERY 12 HOURS SUBQ 01/05/18 21:00 02/04/18 20:59 01/16/18 09:40 Lansoprazole (Prevacid) 30 mg DAILY ORAL 01/11/18 10:45 02/10/18 10:44 01/16/18 09:38 Lorazepam (Ativan 2mg/ml 1ml) 1 mg Q6H PRN IV For Anxiety 01/16/18 13:30 01/23/18 13:29 Metoprolol Tartrate (Lopressor) 25 mg Q12HR ORAL 01/14/18 21:00 02/13/18 20:59 01/16/18 09:39 Mirtazapine (Remeron) 15 mg BEDTIME ORAL 01/05/18 21:00 02/04/18 20:59 01/15/18 21:37 Morphine Sulfate (Morphine Sulfate) 2 mg Q4H PRN IVP Moderate Pain (Pain Scale 4-6) 01/15/18 10:00 01/22/18 09:59 Ondansetron HCl (Zofran) 4 mg Q6H PRN IVP Nausea & Vomiting 01/05/18 19:15 02/04/18 19:14 Phenazopyridine HCl (Pyridium) 100 mg DAILYPRN PRN ORAL dysuria 01/05/18 19:15 02/04/18 19:14 Polyethylene Glycol (Miralax) 17 gm DAILYPRN PRN ORAL Constipation 01/05/18 19:15 02/04/18 19:14 01/13/18 17:26 Quetiapine Fumarate (SEROquel) 50 mg Q8HR ORAL 01/12/18 22:00 02/11/18 21:59 01/16/18 05:33 Tamsulosin HCl (Flomax) 0.4 mg BEDTIME ORAL 01/11/18 21:00 02/10/18 20:59 01/15/18 21:38 Janet Rowland M.D. Jan 16, 2018 14:59
[2018-01-16] MEDS: Nuedexta Capsule 20/10mg ORAL SCH (16:00)
[2018-01-16 20:00] VITALS: BP 134/91
[2018-01-16] MEDS: Tamsulosin 0.4mg cap ORAL SCH (21:21)
[2018-01-17 04:00] VITALS: BP 155/94
--- NOTE | 2018-01-17 07:17 | Pulmonology Progress Note ---
Assessment/Plan Assessment/Plan ASSESSMENT Pyelo with E coli ESBL and Enterococci faecalis acute encephalopathy (likely due to UTI) on chronic dementia ARF on CKD HTN Hx of CVA COPD dementia with behavioral disturbances bilateral nephrolithiasis with persistent R hydronephrosis/obstructive Chronic hep C infection hx of IVDA Hx of prostate Ca L foot 2 nd toe amputation Hx of osteo L 2 nd toe and distal phalanx MDD hyperkalemia PLAN OF CARE MS floor s/p abx ID follows, urine cx + E coli ESBL , repeated + Enterococci faecalis CT A/P bilateral nephrolithiasis, L staghorn calculus, persistent R hydro urology eval appreciated: per urologist- R kidney already damaged and for L staghorn calculus recommended to defer percutaneous nephrolithotomy for treatment of that stone in this demented elderly ill patient. Pyridium Pain management psych eval appreciated nephro follows monitor renal parameters, lytes, correct lytes as needed avoid nephrotoxic, s/p IVF X ray L foot no acute process podiatry eval appreciated arterial duplex noted BP management DVT prophylaxis O2 HHN prn CXR negative monitor renal parameters, lytes , avoid nephrotoxic PT/OT dc plan to SNF when arrangements made ( does not provide address of home , unclear if patient has a place to stay) SW follows pending disposition case discussed and evaluated by supervising physician Subjective Allergies: Uncoded Allergies: anesthesia (Allergy, Unknown, 07/04/14) Subjective afebrile, leucocytosis resolved pulled out IV yesterday, no need completed abx awaiting for disposition Objective Last 24 Hour Vital Signs Date Time Temp Pulse Resp B/P (MAP) Pulse Ox O2 Delivery O2 Flow Rate FiO2 01/17/18 04:00 97.6 63 20 155/94 100 97.6 01/16/18 21:22 85 134/91 01/16/18 20:00 97.8 85 20 134/91 99 Room Air 97.8 01/16/18 19:09 89 20 Room Air 21 01/16/18 09:39 91 118/73 01/16/18 09:37 97.8 91 20 118/73 97 97.8 01/16/18 08:00 97.8 90 20 115/73 97 97.8 Intake and Output 01/16/18 01/17/18 19:00 07:00 Intake Total 240 ml Output Total 650 ml Balance 240 ml -650 ml Intake Oral 240 ml Output Urine Total 650 ml # Voids 2 3 Objective General Appearance: no acute distress, confused HEENT: normocephalic, atraumatic, anicteric Respiratory/Chest: lungs clear - with moderate air exchange , no respiratory distress, no accessory muscle use Cardiovascular: normal peripheral pulses, normal rate, no JVD Abdomen: soft, non tender Extremities: no edema, left foot 2 nd toe amputated Neurologic/Psychiatric: alert, responsive Musculoskeletal: normal muscle bulk Laboratory Tests 01/16/18 09:30: White Blood Count 8.7, Red Blood Count 3.88L, Hemoglobin 11.6L, Hematocrit 35.3L , Mean Corpuscular Volume 91, Mean Corpuscular Hemoglobin 30.0, Mean Corpuscular Hemoglobin Concent 32.9, Red Cell Distribution Width 12.7, Platelet Count 220, Mean Platelet Volume 6.2L, Neutrophils (%) (Auto) , Lymphocytes (%) ( Auto) , Monocytes (%) (Auto) , Eosinophils (%) (Auto) , Basophils (%) (Auto) , Differential Total Cells Counted 100, Neutrophils % (Manual) 50, Lymphocytes % ( Manual) 40, Monocytes % (Manual) 8, Eosinophils % (Manual) 2, Basophils % ( Manual) 0, Band Neutrophils 0, Platelet Estimate Adequate, Platelet Morphology Normal, Hypochromasia 1+, Sodium Level 141, Potassium Level 4.7, Chloride Level 109H, Carbon Dioxide Level 22, Anion Gap 10, Blood Urea Nitrogen 34H, Creatinine 2.1H, Estimat Glomerular Filtration Rate 38.3, Glucose Level 135H, Calcium Level 9.0 Current Medications Medications (Trade) Dose Ordered Sig/Lucie Route PRN Reason Start Time Stop Time Status Last Admin Dose Admin Acetaminophen (Tylenol) 650 mg Q4H PRN ORAL T>100.5 01/05/18 19:15 02/04/18 19:14 Albuterol/ Ipratropium (Albuterol/ Ipratropium) 3 ml Q4H PRN HHN Shortness of Breath 01/15/18 10:00 01/20/18 09:59 Dextromethorphan/ Quinidine (Nuedexta Capsule) 1 cap DAILY ORAL 01/16/18 16:00 01/22/18 09:01 Dextromethorphan/ Quinidine (Nuedexta Capsule) 1 cap Q12HR ORAL 01/23/18 09:00 02/22/18 08:59 Dextrose/Sodium Chloride 1,000 ml @ 100 mls/hr Q10H IV 01/13/18 15:30 02/12/18 15:29 01/16/18 03:32 Diphenhydramine HCl (Benadryl) 25 mg Q6H PRN IVP Itching 01/16/18 13:15 02/15/18 13:14 Docusate Sodium (Colace) 100 mg TWICE A DAY ORAL 01/11/18 11:00 02/10/18 10:59 01/16/18 09:38 Heparin Sodium (Porcine) (Heparin 5000 units/ml) 5,000 units EVERY 12 HOURS SUBQ 01/05/18 21:00 02/04/18 20:59 01/16/18 21:23 Lansoprazole (Prevacid) 30 mg DAILY ORAL 01/11/18 10:45 02/10/18 10:44 01/16/18 09:38 Lorazepam (Ativan 2mg/ml 1ml) 1 mg Q6H PRN IV For Anxiety 01/16/18 13:30 01/23/18 13:29 Metoprolol Tartrate (Lopressor) 25 mg Q12HR ORAL 01/14/18 21:00 02/13/18 20:59 01/16/18 21:22 Mirtazapine (Remeron) 15 mg BEDTIME ORAL 01/05/18 21:00 02/04/18 20:59 01/16/18 21:21 Morphine Sulfate (Morphine Sulfate) 2 mg Q4H PRN IVP Moderate Pain (Pain Scale 4-6) 01/15/18 10:00 01/22/18 09:59 Ondansetron HCl (Zofran) 4 mg Q6H PRN IVP Nausea & Vomiting 01/05/18 19:15 02/04/18 19:14 Phenazopyridine HCl (Pyridium) 100 mg DAILYPRN PRN ORAL dysuria 01/05/18 19:15 02/04/18 19:14 Polyethylene Glycol (Miralax) 17 gm DAILYPRN PRN ORAL Constipation 01/05/18 19:15 02/04/18 19:14 01/13/18 17:26 Quetiapine Fumarate (SEROquel) 50 mg Q8HR ORAL 01/12/18 22:00 02/11/18 21:59 01/17/18 05:40 Tamsulosin HCl (Flomax) 0.4 mg BEDTIME ORAL 01/11/18 21:00 02/10/18 20:59 01/16/18 21:21 [facility] ([facility])Baylee NP Jan 17, 2018 07:17
[2018-01-17 07:58] VITALS: BP 116/68
[2018-01-17] MEDS: Heparin 5000 units/ml inj SUBQ SCH ×3 (09:00→22:02)
[2018-01-17] MEDS: Metoprolol 25mg tab ORAL SCH ×2 (09:00→21:00)
[2018-01-17] MEDS: D5NS 1,000 ML IV SCH ×2 (09:30→19:30)
[2018-01-17] MEDS: Docusate 100mg cap ORAL SCH ×2 (10:16→18:02)
[2018-01-17] MEDS: Nuedexta Capsule 20/10mg ORAL SCH (10:16)
--- NOTE | 2018-01-17 10:52 | Nephrology Progress Note ---
Assessment/Plan Problem List: (1) CKD (chronic kidney disease) (2) Hyperkalemia (3) UTI (lower urinary tract infection) Assessment Pyelo with E coli ESBL CKD Cr rodney 2.7 down 2.4 and now 2.1 HTN Hx of CVA COPD dementia bilateral nephrolithiasis with persistent R hydronephrosis/obstructive Chronic hep C infection hx of IVDA Hx of prostate Ca L foot 2 nd toe amputation Hx of osteo L 2 nd toe and distal phalanx Plan Plan: up dose lopressor ? DC Bactrim?? due to kidney insufficiency Fluid challenge change diet to renal Kayexelate po Monitor renal parameters avoid nephrotoxics as possible Keep hydrated add lopressor add prevacid per orders Subjective ROS Limited/Unobtainable: No Objective Objective Last 24 Hour Vital Signs Date Time Temp Pulse Resp B/P (MAP) Pulse Ox O2 Delivery O2 Flow Rate FiO2 01/17/18 09:00 77 116/68 01/17/18 07:58 98.6 77 21 116/68 96 Room Air 98.6 01/17/18 07:45 78 20 Room Air 21 01/17/18 04:00 97.6 63 20 155/94 100 97.6 01/16/18 21:22 85 134/91 01/16/18 20:00 97.8 85 20 134/91 99 Room Air 97.8 01/16/18 19:09 89 20 Room Air 21 Intake and Output 01/16/18 01/17/18 19:00 07:00 Intake Total 240 ml Output Total 650 ml Balance 240 ml -650 ml Intake Oral 240 ml Output Urine Total 650 ml # Voids 2 3 Height (Feet): 5 Height (Inches): 9.00 Weight (Pounds): 180 General Appearance: no apparent distress Objective no change STEPHY HENDERSON Jan 17, 2018 10:52
[2018-01-17 12:00] VITALS: BP 122/72
[2018-01-17 16:00] VITALS: BP 118/72
--- NOTE | 2018-01-17 19:36 | Infectious Diseases Prog Note ---
Assessment/Plan Assessment/Plan Assessment: R flank pain- chronic b/l calculus, possibly infected -CT abd/p: Distal right ureteral calculi, stable over multiple earlier studies dating back to 09/20/2014, again demonstrated. There is persistent right hydronephrosis and right renal atrophy. Nonobstructive right lower pole renal calculi are again demonstrated. Large left renal staghorn calculus, also present as far back as 2013. Mild right hydronephrosis but no ureteral calculi or hydroureter. Other nonobstructive left lower pole renal calculi are also evident. Gas bubbles within the left renal collecting system and bladder, markedly decreased from the previous 2016 exam. Uncertain as to whether these represent bladder instrumentation with reflux into the left renal collecting system, versus artifact due to infection with gas -forming organism. Correlate with clinical and laboratory findings. The bladder wall is also mildly thickened, unchanged from previously. Cystitis a possibility. Left renal cyst, also previously described. Cholelithiasis, new since prior study. Left basilar dependent pulmonary parenchymal atelectasis. Evidence of COPD, with hyperinflation and a single small bulla. Evidence of prior prostatectomy -u/a wbc 30-40, nit +, leuk +3; ucx >100K ESBL E.coli (S zozyn, nitrofurantoin , bactrim, ertapenem;R levo); repeat u/a 01/08 wbc tntc, nit+, leuk +3; ucx 50- 60k E.fecalis (S vanco, amp; R levo) -Bcx Neg Mild leukocytosis, resolved -CXR no acute process -Xray R foot and L foot: no acute process HAMZAH on CKD, improving recent possible UTI oct 2017, s/p Rx -u/a WBC TNTC- ucx >100k E. fecalis (S Vanco, amp), 30-40k mixed gram positive growth Chronic Hep C infection - hEp C VL 42K 10/2017 -Hep A Imm, Hep B Ab neg, HIV Neg History of recurrent urinary tract infection. History of osteomyelitis of the second left toe and distal phalanx. History of prostate cancer. History of renal stone and CKD. Dementia HTN CVA hx IVDA Plan: monitor pt off of AB Rx 01/06 SP Bactrim DS 1 tab bid #10/10 for possible ESBL UTI and PO Amoxicillin #5/5 for enterococcal coverage -01/10 SP Ertapenem #4 -01/06 SP IV Vancomycin #2 -01/05 SP Ceftriaxone x1 -11/12 SP PO ampicillin #14 -uro eval- no intervention needed a this point -monitor CBC/BMP, temperatures -pain control -aspiration precautions. Subjective Constitutional: Denies: no symptoms, fever, chills, fatigue, anorexia, drenching sweats, other Allergies: Uncoded Allergies: anesthesia (Allergy, Unknown, 07/04/14) Objective Vital Signs Last 24 Hour Vital Signs Date Time Temp Pulse Resp B/P (MAP) Pulse Ox O2 Delivery O2 Flow Rate FiO2 01/17/18 16:00 98.6 72 18 118/72 96 Room Air 98.6 01/17/18 12:00 98.4 78 22 122/72 98 Room Air 98.4 01/17/18 09:00 77 116/68 01/17/18 07:58 98.6 77 21 116/68 96 Room Air 98.6 01/17/18 07:45 78 20 Room Air 21 01/17/18 04:00 97.6 63 20 155/94 100 97.6 01/16/18 21:22 85 134/91 01/16/18 20:00 97.8 85 20 134/91 99 Room Air 97.8 Height (Feet): 5 Height (Inches): 9.00 Weight (Pounds): 180 HEENT: atraumatic Respiratory/Chest: lungs clear Cardiovascular: normal peripheral pulses Abdomen: soft, non tender Current Medications Medications (Trade) Dose Ordered Sig/Lucie Route PRN Reason Start Time Stop Time Status Last Admin Dose Admin Acetaminophen (Tylenol) 650 mg Q4H PRN ORAL T>100.5 01/05/18 19:15 02/04/18 19:14 Albuterol/ Ipratropium (Albuterol/ Ipratropium) 3 ml Q4H PRN HHN Shortness of Breath 01/15/18 10:00 01/20/18 09:59 Dextromethorphan/ Quinidine (Nuedexta Capsule) 1 cap DAILY ORAL 01/16/18 16:00 01/22/18 09:01 01/17/18 10:16 Dextromethorphan/ Quinidine (Nuedexta Capsule) 1 cap Q12HR ORAL 01/23/18 09:00 5/6/18 08:59 Dextrose/Sodium Chloride 1,000 ml @ 100 mls/hr Q10H IV 01/13/18 15:30 02/12/18 15:29 01/16/18 03:32 Diphenhydramine HCl (Benadryl) 25 mg Q6H PRN IVP Itching 01/16/18 13:15 02/15/18 13:14 Docusate Sodium (Colace) 100 mg TWICE A DAY ORAL 01/11/18 11:00 02/10/18 10:59 01/17/18 18:02 Heparin Sodium (Porcine) (Heparin 5000 units/ml) 5,000 units EVERY 12 HOURS SUBQ 01/05/18 21:00 02/04/18 20:59 01/16/18 21:23 Lansoprazole (Prevacid) 30 mg DAILY ORAL 01/11/18 10:45 02/10/18 10:44 01/17/18 10:15 Lorazepam (Ativan 2mg/ml 1ml) 1 mg Q6H PRN IV For Anxiety 01/16/18 13:30 01/23/18 13:29 Metoprolol Tartrate (Lopressor) 25 mg Q12HR ORAL 01/14/18 21:00 02/13/18 20:59 01/16/18 21:22 Mirtazapine (Remeron) 15 mg BEDTIME ORAL 01/05/18 21:00 02/04/18 20:59 01/16/18 21:21 Morphine Sulfate (Morphine Sulfate) 2 mg Q4H PRN IVP Moderate Pain (Pain Scale 4-6) 01/15/18 10:00 01/22/18 09:59 Ondansetron HCl (Zofran) 4 mg Q6H PRN IVP Nausea & Vomiting 01/05/18 19:15 02/04/18 19:14 Phenazopyridine HCl (Pyridium) 100 mg DAILYPRN PRN ORAL dysuria 01/05/18 19:15 02/04/18 19:14 Polyethylene Glycol (Miralax) 17 gm DAILYPRN PRN ORAL Constipation 01/05/18 19:15 02/04/18 19:14 01/13/18 17:26 Quetiapine Fumarate (SEROquel) 50 mg Q8HR ORAL 01/12/18 22:00 02/11/18 21:59 01/17/18 14:22 Tamsulosin HCl (Flomax) 0.4 mg BEDTIME ORAL 01/11/18 21:00 02/10/18 20:59 01/16/18 21:21 Jose Bello MD Jan 17, 2018 19:36
[2018-01-17 20:00] VITALS: BP 98/58
[2018-01-17] MEDS: Tamsulosin 0.4mg cap ORAL SCH (22:00)
[2018-01-18] VITALS: BP 116/69
[2018-01-18 04:00] VITALS: BP 97/49
[2018-01-18] MEDS: D5NS 1,000 ML IV SCH ×2 (05:30→15:30)
[2018-01-18] MEDS: Nuedexta Capsule 20/10mg ORAL SCH (08:21)
[2018-01-18] MEDS: Docusate 100mg cap ORAL SCH ×2 (08:21→17:37)
[2018-01-18] MEDS: Heparin 5000 units/ml inj SUBQ SCH ×2 (08:23→21:34)
[2018-01-18] MEDS: Metoprolol 25mg tab ORAL SCH ×2 (09:00→21:00)
--- NOTE | 2018-01-18 09:28 | Pulmonology Progress Note ---
Assessment/Plan Assessment/Plan ASSESSMENT Pyelo with E coli ESBL and Enterococci faecalis acute encephalopathy (likely due to UTI) on chronic dementia ARF on CKD HTN Hx of CVA COPD dementia with behavioral disturbances bilateral nephrolithiasis with persistent R hydronephrosis/obstructive Chronic hep C infection hx of IVDA Hx of prostate Ca L foot 2 nd toe amputation Hx of osteo L 2 nd toe and distal phalanx MDD hyperkalemia PLAN OF CARE MS floor s/p abx ID follows, urine cx + E coli ESBL , repeated + Enterococci faecalis CT A/P bilateral nephrolithiasis, L staghorn calculus, persistent R hydro urology eval appreciated: per urologist- R kidney already damaged and for L staghorn calculus recommended to defer percutaneous nephrolithotomy for treatment of that stone in this demented elderly ill patient. Pyridium Pain management psych eval appreciated nephro follows monitor renal parameters, lytes, correct lytes as needed avoid nephrotoxic, s/p IVF creat down to 2.1 X ray L foot no acute process podiatry eval appreciated arterial duplex noted BP management DVT prophylaxis O2 HHN prn CXR negative monitor renal parameters, lytes , avoid nephrotoxic PT/OT dc plan to SNF when arrangements made ( does not provide address of home , unclear if patient has a place to stay) SW follows completed abx, awaiting for disposition case discussed and evaluated by supervising physician Subjective Allergies: Uncoded Allergies: anesthesia (Allergy, Unknown, 07/04/14) Subjective afebrile, leucocytosis resolved pulled out IV yesterday, no need completed abx awaiting for disposition Objective Last 24 Hour Vital Signs Date Time Temp Pulse Resp B/P (MAP) Pulse Ox O2 Delivery O2 Flow Rate FiO2 01/18/18 07:33 84 18 Room Air 21 01/18/18 04:00 98.5 74 20 97/49 96 98.5 01/18/18 00:00 97.2 88 20 116/69 96 97.2 01/17/18 21:38 99 20 Room Air 21 01/17/18 21:00 99 98/58 01/17/18 20:00 98.1 99 20 98/58 98 98.1 01/17/18 16:00 98.6 72 18 118/72 96 Room Air 98.6 01/17/18 12:00 98.4 78 22 122/72 98 Room Air 98.4 Intake and Output 01/17/18 01/18/18 19:00 07:00 Intake Total 1130 ml 240 ml Output Total 1250 ml 400 ml Balance -120 ml -160 ml Intake Oral 1130 ml 240 ml Output Urine Total 1250 ml 400 ml Objective General Appearance: no acute distress, confused HEENT: normocephalic, atraumatic, anicteric Respiratory/Chest: lungs clear - with moderate air exchange , no respiratory distress, no accessory muscle use Cardiovascular: normal peripheral pulses, normal rate, no JVD Abdomen: soft, non tender Extremities: no edema, left foot 2 nd toe amputated Neurologic/Psychiatric: alert, responsive Musculoskeletal: normal muscle bulk Current Medications Medications (Trade) Dose Ordered Sig/Lucie Route PRN Reason Start Time Stop Time Status Last Admin Dose Admin Acetaminophen (Tylenol) 650 mg Q4H PRN ORAL T>100.5 01/05/18 19:15 02/04/18 19:14 Albuterol/ Ipratropium (Albuterol/ Ipratropium) 3 ml Q4H PRN HHN Shortness of Breath 01/15/18 10:00 01/20/18 09:59 Dextromethorphan/ Quinidine (Nuedexta Capsule) 1 cap DAILY ORAL 01/16/18 16:00 01/22/18 09:01 01/18/18 08:21 Dextromethorphan/ Quinidine (Nuedexta Capsule) 1 cap Q12HR ORAL 01/23/18 09:00 02/22/18 08:59 Dextrose/Sodium Chloride 1,000 ml @ 100 mls/hr Q10H IV 01/13/18 15:30 02/12/18 15:29 01/16/18 03:32 Diphenhydramine HCl (Benadryl) 25 mg Q6H PRN IVP Itching 01/16/18 13:15 02/15/18 13:14 Docusate Sodium (Colace) 100 mg TWICE A DAY ORAL 01/11/18 11:00 02/10/18 10:59 01/18/18 08:21 Heparin Sodium (Porcine) (Heparin 5000 units/ml) 5,000 units EVERY 12 HOURS SUBQ 01/05/18 21:00 02/04/18 20:59 01/18/18 08:23 Lansoprazole (Prevacid) 30 mg DAILY ORAL 01/11/18 10:45 02/10/18 10:44 01/18/18 08:21 Lorazepam (Ativan 2mg/ml 1ml) 1 mg Q6H PRN IV For Anxiety 01/16/18 13:30 01/23/18 13:29 Metoprolol Tartrate (Lopressor) 25 mg Q12HR ORAL 01/14/18 21:00 02/13/18 20:59 01/16/18 21:22 Mirtazapine (Remeron) 15 mg BEDTIME ORAL 01/05/18 21:00 02/04/18 20:59 01/17/18 22:00 Morphine Sulfate (Morphine Sulfate) 2 mg Q4H PRN IVP Moderate Pain (Pain Scale 4-6) 01/15/18 10:00 01/22/18 09:59 Ondansetron HCl (Zofran) 4 mg Q6H PRN IVP Nausea & Vomiting 01/05/18 19:15 02/04/18 19:14 Phenazopyridine HCl (Pyridium) 100 mg DAILYPRN PRN ORAL dysuria 01/05/18 19:15 02/04/18 19:14 Polyethylene Glycol (Miralax) 17 gm DAILYPRN PRN ORAL Constipation 01/05/18 19:15 02/04/18 19:14 01/13/18 17:26 Quetiapine Fumarate (SEROquel) 50 mg Q8HR ORAL 01/12/18 22:00 02/11/18 21:59 01/18/18 05:36 Tamsulosin HCl (Flomax) 0.4 mg BEDTIME ORAL 01/11/18 21:00 02/10/18 20:59 01/17/18 22:00 [facility]adav NP Jan 18, 2018 09:28
[2018-01-18 12:00] VITALS: BP 102/68
--- NOTE | 2018-01-18 13:56 | Nephrology Progress Note ---
Assessment/Plan Problem List: (1) CKD (chronic kidney disease) (2) Hyperkalemia (3) UTI (lower urinary tract infection) Assessment Pyelo with E coli ESBL CKD Cr rodney 2.7 down 2.4 and now 2.1 HTN Hx of CVA COPD dementia bilateral nephrolithiasis with persistent R hydronephrosis/obstructive Chronic hep C infection hx of IVDA Hx of prostate Ca L foot 2 nd toe amputation Hx of osteo L 2 nd toe and distal phalanx Plan Plan: no labs up dose lopressor ? DC Bactrim?? due to kidney insufficiency Fluid challenge change diet to renal Monitor renal parameters avoid nephrotoxics as possible Keep hydrated add lopressor add prevacid per orders Subjective ROS Limited/Unobtainable: No Constitutional: Reports: malaise Objective Objective Last 24 Hour Vital Signs Date Time Temp Pulse Resp B/P (MAP) Pulse Ox O2 Delivery O2 Flow Rate FiO2 01/18/18 12:00 97.6 18 102/68 98 97.6 01/18/18 09:00 98 99/67 01/18/18 07:33 84 18 Room Air 21 01/18/18 04:00 98.5 74 20 97/49 96 98.5 01/18/18 00:00 97.2 88 20 116/69 96 97.2 01/17/18 21:38 99 20 Room Air 21 01/17/18 21:00 99 98/58 01/17/18 20:00 98.1 99 20 98/58 98 98.1 01/17/18 16:00 98.6 72 18 118/72 96 Room Air 98.6 Intake and Output 01/17/18 01/18/18 19:00 07:00 Intake Total 1130 ml 240 ml Output Total 1250 ml 400 ml Balance -120 ml -160 ml Intake Oral 1130 ml 240 ml Output Urine Total 1250 ml 400 ml Height (Feet): 5 Height (Inches): 9.00 Weight (Pounds): 180 General Appearance: no apparent distress Cardiovascular: regular rhythm Respiratory/Chest: decreased breath sounds Abdomen: soft Objective no change STEPHY HENDERSON Jan 18, 2018 13:56
[2018-01-18 16:00] VITALS: BP 98/72
[2018-01-18 20:00] VITALS: BP 102/74
[2018-01-18] MEDS: Tamsulosin 0.4mg cap ORAL SCH (21:32)
[2018-01-19] MEDS: D5NS 1,000 ML IV SCH ×2 (01:30→11:30)
[2018-01-19 03:56] VITALS: BP 111/69
[2018-01-19 06:29] LABS: HEMATOCRIT 36.3 % (42.0-52.0); HEMOGLOBIN 11.7 G/DL (14.2-18.0); MEAN CORPUSCULAR VOLUME 92 FL (80-99); PLATELET COUNT 187 K/UL (150-450); RED BLOOD COUNT 3.92 M/UL (4.70-6.10)
[2018-01-19 07:39] LABS: ANION GAP 11 mmol/L (5-15); BLOOD UREA NITROGEN 44 mg/dL (7-18); CALCIUM 8.6 MG/DL (8.5-10.1); CARBON DIOXIDE 21 MMOL/L (21-32); CHLORIDE 110 MMOL/L (98-107); CREATININE 2.3 MG/DL (0.55-1.30); POTASSIUM 4.7 MMOL/L (3.5-5.1); SODIUM 142 MMOL/L (136-145)
[2018-01-19 08:00] VITALS: BP 106/68
[2018-01-19 08:22] LABS: ALANINE AMINOTRANSFERASE 18 U/L (12-78); ALBUMIN 3.1 G/DL (3.4-5.0); ALKALINE PHOSPHATASE 106 U/L (46-116); ASPARTATE AMINO TRANSFERASE 24 U/L (15-37); BILIRUBIN,DIRECT 0.1 MG/DL (0.0-0.3); BILIRUBIN,TOTAL 0.3 MG/DL (0.2-1.0); PHOSPHORUS 2.6 MG/DL (2.5-4.9)
[2018-01-19] MEDS: Metoprolol 25mg tab ORAL SCH ×2 (09:00→21:12)
[2018-01-19] MEDS: Nuedexta Capsule 20/10mg ORAL SCH (09:01)
[2018-01-19] MEDS: Docusate 100mg cap ORAL SCH ×2 (09:02→17:33)
[2018-01-19] MEDS: Heparin 5000 units/ml inj SUBQ SCH ×2 (09:14→21:14)
[2018-01-19 12:00] VITALS: BP 109/74
--- NOTE | 2018-01-19 12:32 | General Progress Note ---
Assessment/Plan Status: stable Assessment/Plan Dementia with behavioral disturbance mdd -seroquel 25 mg bid -ro -Nuedexta once daily Subjective Date patient seen: Jan 17, 2018 Neurologic/Psychiatric: Reports: anxiety, depressed, emotional problems Allergies: Uncoded Allergies: anesthesia (Allergy, Unknown, 07/04/14) Subjective anxious however more re-directable Objective Last 24 Hour Vital Signs Date Time Temp Pulse Resp B/P (MAP) Pulse Ox O2 Delivery O2 Flow Rate FiO2 01/19/18 09:20 89 20 Room Air 21 01/19/18 09:00 89 106/68 01/19/18 08:00 97.7 100 20 106/68 97 97.7 01/19/18 03:56 97.6 81 20 111/69 98 97.6 01/18/18 21:00 72 102/74 01/18/18 20:00 98.0 72 18 102/74 97 98.0 01/18/18 19:56 79 18 Room Air 21 01/18/18 16:00 97.8 88 18 98/72 96 97.8 Intake and Output 01/18/18 01/19/18 19:00 07:00 Intake Total 1320 ml Output Total 780 ml 1800 ml Balance 540 ml -1800 ml Intake Oral 1320 ml Output Urine Total 780 ml 1800 ml # Voids 1 Laboratory Tests 01/19/18 05:20: White Blood Count 9.0, Red Blood Count 3.92L, Hemoglobin 11.7L, Hematocrit 36.3L , Mean Corpuscular Volume 92, Mean Corpuscular Hemoglobin 29.8, Mean Corpuscular Hemoglobin Concent 32.2, Red Cell Distribution Width 13.0, Platelet Count 187, Mean Platelet Volume 7.0, Neutrophils (%) (Auto) , Lymphocytes (%) ( Auto) , Monocytes (%) (Auto) , Eosinophils (%) (Auto) , Basophils (%) (Auto) , Differential Total Cells Counted 100, Neutrophils % (Manual) 31L, Lymphocytes % (Manual) 60H, Monocytes % (Manual) 5, Eosinophils % (Manual) 4H, Basophils % ( Manual) 0, Band Neutrophils 0, Platelet Estimate Adequate, Platelet Morphology Normal, Red Blood Cell Morphology Normal, Sodium Level 142, Potassium Level 4.7 , Chloride Level 110H, Carbon Dioxide Level 21, Anion Gap 11, Blood Urea Nitrogen 44H, Creatinine 2.3H, Estimat Glomerular Filtration Rate 34.4, Glucose Level 108H, Uric Acid 8.3H, Calcium Level 8.6, Phosphorus Level 2.6, Magnesium Level 1.8, Total Bilirubin 0.3, Direct Bilirubin 0.1, Aspartate Amino Transf ( AST/SGOT) 24, Alanine Aminotransferase (ALT/SGPT) 18, Alkaline Phosphatase 106, Total Protein 7.4, Albumin 3.1L Height (Feet): 5 Height (Inches): 9.00 Weight (Pounds): 180 Mckenna Bermudez M.D. Jan 19, 2018 12:32
--- NOTE | 2018-01-19 12:36 | General Progress Note ---
Assessment/Plan Status: stable Assessment/Plan Dementia with behavioral disturbance mdd -seroquel 25 mg bid -ro -Nuedexta once daily Subjective Date patient seen: Jan 19, 2018 Neurologic/Psychiatric: Reports: depressed, emotional problems Allergies: Uncoded Allergies: anesthesia (Allergy, Unknown, 07/04/14) Subjective calm and more re-directable no agitation Objective Last 24 Hour Vital Signs Date Time Temp Pulse Resp B/P (MAP) Pulse Ox O2 Delivery O2 Flow Rate FiO2 01/19/18 09:20 89 20 Room Air 21 01/19/18 09:00 89 106/68 01/19/18 08:00 97.7 100 20 106/68 97 97.7 01/19/18 03:56 97.6 81 20 111/69 98 97.6 01/18/18 21:00 72 102/74 01/18/18 20:00 98.0 72 18 102/74 97 98.0 01/18/18 19:56 79 18 Room Air 21 01/18/18 16:00 97.8 88 18 98/72 96 97.8 Intake and Output 01/18/18 01/19/18 19:00 07:00 Intake Total 1320 ml Output Total 780 ml 1800 ml Balance 540 ml -1800 ml Intake Oral 1320 ml Output Urine Total 780 ml 1800 ml # Voids 1 Laboratory Tests 01/19/18 05:20: White Blood Count 9.0, Red Blood Count 3.92L, Hemoglobin 11.7L, Hematocrit 36.3L , Mean Corpuscular Volume 92, Mean Corpuscular Hemoglobin 29.8, Mean Corpuscular Hemoglobin Concent 32.2, Red Cell Distribution Width 13.0, Platelet Count 187, Mean Platelet Volume 7.0, Neutrophils (%) (Auto) , Lymphocytes (%) ( Auto) , Monocytes (%) (Auto) , Eosinophils (%) (Auto) , Basophils (%) (Auto) , Differential Total Cells Counted 100, Neutrophils % (Manual) 31L, Lymphocytes % (Manual) 60H, Monocytes % (Manual) 5, Eosinophils % (Manual) 4H, Basophils % ( Manual) 0, Band Neutrophils 0, Platelet Estimate Adequate, Platelet Morphology Normal, Red Blood Cell Morphology Normal, Sodium Level 142, Potassium Level 4.7 , Chloride Level 110H, Carbon Dioxide Level 21, Anion Gap 11, Blood Urea Nitrogen 44H, Creatinine 2.3H, Estimat Glomerular Filtration Rate 34.4, Glucose Level 108H, Uric Acid 8.3H, Calcium Level 8.6, Phosphorus Level 2.6, Magnesium Level 1.8, Total Bilirubin 0.3, Direct Bilirubin 0.1, Aspartate Amino Transf ( AST/SGOT) 24, Alanine Aminotransferase (ALT/SGPT) 18, Alkaline Phosphatase 106, Total Protein 7.4, Albumin 3.1L Height (Feet): 5 Height (Inches): 9.00 Weight (Pounds): 180 General Appearance: no apparent distress, alert, confused Mckenna Bermudez M.D. Jan 19, 2018 12:36
--- NOTE | 2018-01-19 12:39 | Psych Consult Progress Note ---
Psych Consult Progress Note Consult 01/18/18 the pt is calm and no behaviors anxiety d/o -cont Ambien -will decrease Klonopin -Lexapro 10mg qam -rec to replace Dilaudid with long acting pain meds Vital Signs Last 24 Hour Vital Signs Date Time Temp Pulse Resp B/P (MAP) Pulse Ox O2 Delivery O2 Flow Rate FiO2 01/19/18 09:20 89 20 Room Air 21 01/19/18 09:00 89 106/68 01/19/18 08:00 97.7 100 20 106/68 97 97.7 01/19/18 03:56 97.6 81 20 111/69 98 97.6 01/18/18 21:00 72 102/74 01/18/18 20:00 98.0 72 18 102/74 97 98.0 01/18/18 19:56 79 18 Room Air 21 01/18/18 16:00 97.8 88 18 98/72 96 97.8 Labs Laboratory Tests Test 01/19/18 05:20 White Blood Count 9.0 K/UL (4.8-10.8) Red Blood Count 3.92 M/UL (4.70-6.10) L Hemoglobin 11.7 G/DL (14.2-18.0) L Hematocrit 36.3 % (42.0-52.0) L Mean Corpuscular Volume 92 FL (80-99) Mean Corpuscular Hemoglobin 29.8 PG (27.0-31.0) Mean Corpuscular Hemoglobin Concent 32.2 G/DL (32.0-36.0) Red Cell Distribution Width 13.0 % (11.6-14.8) Platelet Count 187 K/UL (150-450) Mean Platelet Volume 7.0 FL (6.5-10.1) Neutrophils (%) (Auto) % (45.0-75.0) Lymphocytes (%) (Auto) % (20.0-45.0) Monocytes (%) (Auto) % (1.0-10.0) Eosinophils (%) (Auto) % (0.0-3.0) Basophils (%) (Auto) % (0.0-2.0) Differential Total Cells Counted 100 Neutrophils % (Manual) 31 % (45-75) L Lymphocytes % (Manual) 60 % (20-45) H Monocytes % (Manual) 5 % (1-10) Eosinophils % (Manual) 4 % (0-3) H Basophils % (Manual) 0 % (0-2) Band Neutrophils 0 % (0-8) Platelet Estimate Adequate Platelet Morphology Normal Red Blood Cell Morphology Normal Sodium Level 142 MMOL/L (136-145) Potassium Level 4.7 MMOL/L (3.5-5.1) Chloride Level 110 MMOL/L (98-107) H Carbon Dioxide Level 21 MMOL/L (21-32) Anion Gap 11 mmol/L (5-15) Blood Urea Nitrogen 44 mg/dL (7-18) H Creatinine 2.3 MG/DL (0.55-1.30) H Estimat Glomerular Filtration Rate 34.4 mL/min (>60) Glucose Level 108 MG/DL (74-106) H Uric Acid 8.3 MG/DL (2.6-7.2) H Calcium Level 8.6 MG/DL (8.5-10.1) Phosphorus Level 2.6 MG/DL (2.5-4.9) Magnesium Level 1.8 MG/DL (1.8-2.4) Total Bilirubin 0.3 MG/DL (0.2-1.0) Direct Bilirubin 0.1 MG/DL (0.0-0.3) Aspartate Amino Transf (AST/SGOT) 24 U/L (15-37) Alanine Aminotransferase (ALT/SGPT) 18 U/L (12-78) Alkaline Phosphatase 106 U/L (46-116) Total Protein 7.4 G/DL (6.4-8.2) Albumin 3.1 G/DL (3.4-5.0) L Medications Current Medications Medications (Trade) Dose Ordered Sig/Lucie Route PRN Reason Start Time Stop Time Status Last Admin Dose Admin Acetaminophen (Tylenol) 650 mg Q4H PRN ORAL T>100.5 01/05/18 19:15 02/04/18 19:14 Albuterol/ Ipratropium (Albuterol/ Ipratropium) 3 ml Q4H PRN HHN Shortness of Breath 01/15/18 10:00 01/20/18 09:59 Dextromethorphan/ Quinidine (Nuedexta Capsule) 1 cap DAILY ORAL 01/16/18 16:00 01/22/18 09:01 01/19/18 09:01 Dextromethorphan/ Quinidine (Nuedexta Capsule) 1 cap Q12HR ORAL 01/23/18 09:00 02/22/18 08:59 Dextrose/Sodium Chloride 1,000 ml @ 100 mls/hr Q10H IV 01/13/18 15:30 02/12/18 15:29 01/16/18 03:32 Diphenhydramine HCl (Benadryl) 25 mg Q6H PRN IVP Itching 01/16/18 13:15 02/15/18 13:14 Docusate Sodium (Colace) 100 mg TWICE A DAY ORAL 01/11/18 11:00 02/10/18 10:59 01/19/18 09:02 Heparin Sodium (Porcine) (Heparin 5000 units/ml) 5,000 units EVERY 12 HOURS SUBQ 01/05/18 21:00 02/04/18 20:59 01/19/18 09:14 Lansoprazole (Prevacid) 30 mg DAILY ORAL 01/11/18 10:45 02/10/18 10:44 01/19/18 09:02 Lorazepam (Ativan 2mg/ml 1ml) 1 mg Q6H PRN IV For Anxiety 01/16/18 13:30 01/23/18 13:29 Metoprolol Tartrate (Lopressor) 25 mg Q12HR ORAL 01/14/18 21:00 02/13/18 20:59 01/16/18 21:22 Mirtazapine (Remeron) 15 mg BEDTIME ORAL 01/05/18 21:00 02/04/18 20:59 01/18/18 21:32 Morphine Sulfate (Morphine Sulfate) 2 mg Q4H PRN IVP Moderate Pain (Pain Scale 4-6) 01/15/18 10:00 01/22/18 09:59 Ondansetron HCl (Zofran) 4 mg Q6H PRN IVP Nausea & Vomiting 01/05/18 19:15 02/04/18 19:14 Phenazopyridine HCl (Pyridium) 100 mg DAILYPRN PRN ORAL dysuria 01/05/18 19:15 02/04/18 19:14 Polyethylene Glycol (Miralax) 17 gm DAILYPRN PRN ORAL Constipation 01/05/18 19:15 02/04/18 19:14 01/13/18 17:26 Quetiapine Fumarate (SEROquel) 25 mg Q8HR ORAL 01/18/18 22:00 02/17/18 21:59 01/19/18 05:33 Tamsulosin HCl (Flomax) 0.4 mg BEDTIME ORAL 01/11/18 21:00 02/10/18 20:59 01/18/18 21:32 Mckenna Bermudez M.D. Jan 19, 2018 12:39
--- NOTE | 2018-01-19 14:20 | Infectious Diseases Prog Note ---
Assessment/Plan Assessment/Plan Assessment: R flank pain- chronic b/l calculus, possibly infected -CT abd/p: Distal right ureteral calculi, stable over multiple earlier studies dating back to 09/20/2014, again demonstrated. There is persistent right hydronephrosis and right renal atrophy. Nonobstructive right lower pole renal calculi are again demonstrated. Large left renal staghorn calculus, also present as far back as 2013. Mild right hydronephrosis but no ureteral calculi or hydroureter. Other nonobstructive left lower pole renal calculi are also evident. Gas bubbles within the left renal collecting system and bladder, markedly decreased from the previous 2016 exam. Uncertain as to whether these represent bladder instrumentation with reflux into the left renal collecting system, versus artifact due to infection with gas -forming organism. Correlate with clinical and laboratory findings. The bladder wall is also mildly thickened, unchanged from previously. Cystitis a possibility. Left renal cyst, also previously described. Cholelithiasis, new since prior study. Left basilar dependent pulmonary parenchymal atelectasis. Evidence of COPD, with hyperinflation and a single small bulla. Evidence of prior prostatectomy -u/a wbc 30-40, nit +, leuk +3; ucx >100K ESBL E.coli (S zozyn, nitrofurantoin , bactrim, ertapenem;R levo); repeat u/a 01/08 wbc tntc, nit+, leuk +3; ucx 50- 60k E.fecalis (S vanco, amp; R levo) -Bcx Neg Mild leukocytosis, resolved -CXR no acute process -Xray R foot and L foot: no acute process HAMZAH on CKD, improving recent possible UTI oct 2017, s/p Rx -u/a WBC TNTC- ucx >100k E. fecalis (S Vanco, amp), 30-40k mixed gram positive growth Chronic Hep C infection - hEp C VL 42K 10/2017 -Hep A Imm, Hep B Ab neg, HIV Neg History of recurrent urinary tract infection. History of osteomyelitis of the second left toe and distal phalanx. History of prostate cancer. History of renal stone and CKD. Dementia HTN CVA hx IVDA Plan: monitor pt off of AB Rx 01/06 SP Bactrim DS 1 tab bid #10/10 for possible ESBL UTI and PO Amoxicillin #5/5 for enterococcal coverage -01/10 SP Ertapenem #4 -01/06 SP IV Vancomycin #2 -01/05 SP Ceftriaxone x1 -11/12 SP PO ampicillin #14 -uro eval- no intervention needed a this point -monitor CBC/BMP, temperatures -pain control -aspiration precautions. Subjective Allergies: Uncoded Allergies: anesthesia (Allergy, Unknown, 07/04/14) Subjective afebrile Objective Vital Signs Last 24 Hour Vital Signs Date Time Temp Pulse Resp B/P (MAP) Pulse Ox O2 Delivery O2 Flow Rate FiO2 01/19/18 12:00 98.0 88 20 109/74 97 98.0 01/19/18 09:20 89 20 Room Air 21 01/19/18 09:00 89 106/68 01/19/18 08:00 97.7 100 20 106/68 97 97.7 01/19/18 03:56 97.6 81 20 111/69 98 97.6 01/18/18 21:00 72 102/74 01/18/18 20:00 98.0 72 18 102/74 97 98.0 01/18/18 19:56 79 18 Room Air 21 01/18/18 16:00 97.8 88 18 98/72 96 97.8 Height (Feet): 5 Height (Inches): 9.00 Weight (Pounds): 180 HEENT: anicteric Respiratory/Chest: no respiratory distress Cardiovascular: regularly irregular Abdomen: non distended Laboratory Tests Test 01/19/18 05:20 White Blood Count 9.0 K/UL (4.8-10.8) Red Blood Count 3.92 M/UL (4.70-6.10) L Hemoglobin 11.7 G/DL (14.2-18.0) L Hematocrit 36.3 % (42.0-52.0) L Mean Corpuscular Volume 92 FL (80-99) Mean Corpuscular Hemoglobin 29.8 PG (27.0-31.0) Mean Corpuscular Hemoglobin Concent 32.2 G/DL (32.0-36.0) Red Cell Distribution Width 13.0 % (11.6-14.8) Platelet Count 187 K/UL (150-450) Mean Platelet Volume 7.0 FL (6.5-10.1) Neutrophils (%) (Auto) % (45.0-75.0) Lymphocytes (%) (Auto) % (20.0-45.0) Monocytes (%) (Auto) % (1.0-10.0) Eosinophils (%) (Auto) % (0.0-3.0) Basophils (%) (Auto) % (0.0-2.0) Differential Total Cells Counted 100 Neutrophils % (Manual) 31 % (45-75) L Lymphocytes % (Manual) 60 % (20-45) H Monocytes % (Manual) 5 % (1-10) Eosinophils % (Manual) 4 % (0-3) H Basophils % (Manual) 0 % (0-2) Band Neutrophils 0 % (0-8) Platelet Estimate Adequate Platelet Morphology Normal Red Blood Cell Morphology Normal Sodium Level 142 MMOL/L (136-145) Potassium Level 4.7 MMOL/L (3.5-5.1) Chloride Level 110 MMOL/L (98-107) H Carbon Dioxide Level 21 MMOL/L (21-32) Anion Gap 11 mmol/L (5-15) Blood Urea Nitrogen 44 mg/dL (7-18) H Creatinine 2.3 MG/DL (0.55-1.30) H Estimat Glomerular Filtration Rate 34.4 mL/min (>60) Glucose Level 108 MG/DL (74-106) H Uric Acid 8.3 MG/DL (2.6-7.2) H Calcium Level 8.6 MG/DL (8.5-10.1) Phosphorus Level 2.6 MG/DL (2.5-4.9) Magnesium Level 1.8 MG/DL (1.8-2.4) Total Bilirubin 0.3 MG/DL (0.2-1.0) Direct Bilirubin 0.1 MG/DL (0.0-0.3) Aspartate Amino Transf (AST/SGOT) 24 U/L (15-37) Alanine Aminotransferase (ALT/SGPT) 18 U/L (12-78) Alkaline Phosphatase 106 U/L (46-116) Total Protein 7.4 G/DL (6.4-8.2) Albumin 3.1 G/DL (3.4-5.0) L Current Medications Medications (Trade) Dose Ordered Sig/Lucie Route PRN Reason Start Time Stop Time Status Last Admin Dose Admin Acetaminophen (Tylenol) 650 mg Q4H PRN ORAL T>100.5 01/05/18 19:15 02/04/18 19:14 Albuterol/ Ipratropium (Albuterol/ Ipratropium) 3 ml Q4H PRN HHN Shortness of Breath 01/15/18 10:00 01/20/18 09:59 Dextromethorphan/ Quinidine (Nuedexta Capsule) 1 cap DAILY ORAL 01/16/18 16:00 01/22/18 09:01 01/19/18 09:01 Dextromethorphan/ Quinidine (Nuedexta Capsule) 1 cap Q12HR ORAL 01/23/18 09:00 02/22/18 08:59 Dextrose/Sodium Chloride 1,000 ml @ 100 mls/hr Q10H IV 01/13/18 15:30 02/12/18 15:29 01/16/18 03:32 Diphenhydramine HCl (Benadryl) 25 mg Q6H PRN IVP Itching 01/16/18 13:15 02/15/18 13:14 Docusate Sodium (Colace) 100 mg TWICE A DAY ORAL 01/11/18 11:00 02/10/18 10:59 01/19/18 09:02 Heparin Sodium (Porcine) (Heparin 5000 units/ml) 5,000 units EVERY 12 HOURS SUBQ 01/05/18 21:00 02/04/18 20:59 01/19/18 09:14 Lansoprazole (Prevacid) 30 mg DAILY ORAL 01/11/18 10:45 02/10/18 10:44 01/19/18 09:02 Lorazepam (Ativan 2mg/ml 1ml) 1 mg Q6H PRN IV For Anxiety 01/16/18 13:30 01/23/18 13:29 Metoprolol Tartrate (Lopressor) 25 mg Q12HR ORAL 01/14/18 21:00 02/13/18 20:59 01/16/18 21:22 Mirtazapine (Remeron) 15 mg BEDTIME ORAL 01/05/18 21:00 02/04/18 20:59 01/18/18 21:32 Morphine Sulfate (Morphine Sulfate) 2 mg Q4H PRN IVP Moderate Pain (Pain Scale 4-6) 01/15/18 10:00 01/22/18 09:59 Ondansetron HCl (Zofran) 4 mg Q6H PRN IVP Nausea & Vomiting 01/05/18 19:15 02/04/18 19:14 Phenazopyridine HCl (Pyridium) 100 mg DAILYPRN PRN ORAL dysuria 01/05/18 19:15 02/04/18 19:14 Polyethylene Glycol (Miralax) 17 gm DAILYPRN PRN ORAL Constipation 01/05/18 19:15 02/04/18 19:14 01/13/18 17:26 Quetiapine Fumarate (SEROquel) 25 mg Q8HR ORAL 01/19/18 14:00 02/17/18 21:59 Tamsulosin HCl (Flomax) 0.4 mg BEDTIME ORAL 01/11/18 21:00 02/10/18 20:59 01/18/18 21:32 Jose Bello MD Jan 19, 2018 14:20
[2018-01-19 16:00] VITALS: BP 102/53
--- NOTE | 2018-01-19 16:18 | Pulmonology Progress Note ---
Assessment/Plan Problems: (1) Pyelonephritis (2) ARF (acute renal failure) (3) Dementia (4) UTI (lower urinary tract infection) Assessment/Plan dc iv fluid, active order in EMR, pt is not receiving administrator social welfare evaluation pt/ot f/u electrolytes dc planning brandi franklin, Zunilda casiano [place], [place] Subjective ROS Limited/Unobtainable: No Constitutional: Reports: no symptoms HEENT: Repors: no symptoms Respiratory: Reports: no symptoms Allergies: Uncoded Allergies: anesthesia (Allergy, Unknown, 07/04/14) Objective Last 24 Hour Vital Signs Date Time Temp Pulse Resp B/P (MAP) Pulse Ox O2 Delivery O2 Flow Rate FiO2 01/19/18 12:00 98.0 88 20 109/74 97 98.0 01/19/18 09:20 89 20 Room Air 21 01/19/18 09:00 89 106/68 01/19/18 08:00 97.7 100 20 106/68 97 97.7 01/19/18 03:56 97.6 81 20 111/69 98 97.6 01/18/18 21:00 72 102/74 01/18/18 20:00 98.0 72 18 102/74 97 98.0 01/18/18 19:56 79 18 Room Air 21 Intake and Output 01/18/18 01/19/18 19:00 07:00 Intake Total 1320 ml Output Total 780 ml 1800 ml Balance 540 ml -1800 ml Intake Oral 1320 ml Output Urine Total 780 ml 1800 ml # Voids 1 Objective General Appearance: WD/WN Lines, tubes and drains: peripheral HEENT: normocephalic, atraumatic Neck: non-tender, normal alignment Respiratory/Chest: chest wall non-tender, lungs clear, normal breath sounds Breasts: no masses Cardiovascular/Chest: normal peripheral pulses, normal rate, no JVD Abdomen: normal bowel sounds, non tender Laboratory Tests 01/19/18 05:20: White Blood Count 9.0, Red Blood Count 3.92L, Hemoglobin 11.7L, Hematocrit 36.3L , Mean Corpuscular Volume 92, Mean Corpuscular Hemoglobin 29.8, Mean Corpuscular Hemoglobin Concent 32.2, Red Cell Distribution Width 13.0, Platelet Count 187, Mean Platelet Volume 7.0, Neutrophils (%) (Auto) , Lymphocytes (%) ( Auto) , Monocytes (%) (Auto) , Eosinophils (%) (Auto) , Basophils (%) (Auto) , Differential Total Cells Counted 100, Neutrophils % (Manual) 31L, Lymphocytes % (Manual) 60H, Monocytes % (Manual) 5, Eosinophils % (Manual) 4H, Basophils % ( Manual) 0, Band Neutrophils 0, Platelet Estimate Adequate, Platelet Morphology Normal, Red Blood Cell Morphology Normal, Sodium Level 142, Potassium Level 4.7 , Chloride Level 110H, Carbon Dioxide Level 21, Anion Gap 11, Blood Urea Nitrogen 44H, Creatinine 2.3H, Estimat Glomerular Filtration Rate 34.4, Glucose Level 108H, Uric Acid 8.3H, Calcium Level 8.6, Phosphorus Level 2.6, Magnesium Level 1.8, Total Bilirubin 0.3, Direct Bilirubin 0.1, Aspartate Amino Transf ( AST/SGOT) 24, Alanine Aminotransferase (ALT/SGPT) 18, Alkaline Phosphatase 106, Total Protein 7.4, Albumin 3.1L Current Medications Medications (Trade) Dose Ordered Sig/Lucie Route PRN Reason Start Time Stop Time Status Last Admin Dose Admin Acetaminophen (Tylenol) 650 mg Q4H PRN ORAL T>100.5 01/05/18 19:15 02/04/18 19:14 Albuterol/ Ipratropium (Albuterol/ Ipratropium) 3 ml Q4H PRN HHN Shortness of Breath 01/15/18 10:00 01/20/18 09:59 Dextromethorphan/ Quinidine (Nuedexta Capsule) 1 cap DAILY ORAL 01/16/18 16:00 01/22/18 09:01 01/19/18 09:01 Dextromethorphan/ Quinidine (Nuedexta Capsule) 1 cap Q12HR ORAL 01/23/18 09:00 02/22/18 08:59 Dextrose/Sodium Chloride 1,000 ml @ 100 mls/hr Q10H IV 01/13/18 15:30 02/12/18 15:29 01/16/18 03:32 Diphenhydramine HCl (Benadryl) 25 mg Q6H PRN IVP Itching 01/16/18 13:15 02/15/18 13:14 Docusate Sodium (Colace) 100 mg TWICE A DAY ORAL 01/11/18 11:00 02/10/18 10:59 01/19/18 09:02 Heparin Sodium (Porcine) (Heparin 5000 units/ml) 5,000 units EVERY 12 HOURS SUBQ 01/05/18 21:00 02/04/18 20:59 01/19/18 09:14 Lansoprazole (Prevacid) 30 mg DAILY ORAL 01/11/18 10:45 02/10/18 10:44 01/19/18 09:02 Lorazepam (Ativan 2mg/ml 1ml) 1 mg Q6H PRN IV For Anxiety 01/16/18 13:30 01/23/18 13:29 Metoprolol Tartrate (Lopressor) 25 mg Q12HR ORAL 01/14/18 21:00 02/13/18 20:59 01/16/18 21:22 Mirtazapine (Remeron) 15 mg BEDTIME ORAL 01/05/18 21:00 02/04/18 20:59 01/18/18 21:32 Morphine Sulfate (Morphine Sulfate) 2 mg Q4H PRN IVP Moderate Pain (Pain Scale 4-6) 01/15/18 10:00 01/22/18 09:59 Ondansetron HCl (Zofran) 4 mg Q6H PRN IVP Nausea & Vomiting 01/05/18 19:15 02/04/18 19:14 Phenazopyridine HCl (Pyridium) 100 mg DAILYPRN PRN ORAL dysuria 01/05/18 19:15 02/04/18 19:14 Polyethylene Glycol (Miralax) 17 gm DAILYPRN PRN ORAL Constipation 01/05/18 19:15 02/04/18 19:14 01/13/18 17:26 Quetiapine Fumarate (SEROquel) 25 mg Q8HR ORAL 01/19/18 14:00 02/17/18 21:59 Tamsulosin HCl (Flomax) 0.4 mg BEDTIME ORAL 01/11/18 21:00 02/10/18 20:59 01/18/18 21:32 German Mooney MD Jan 19, 2018 16:18
[2018-01-19 20:00] VITALS: BP 114/80
[2018-01-19] MEDS: Tamsulosin 0.4mg cap ORAL SCH (21:12)
[2018-01-20] VITALS: BP 109/75
[2018-01-20 04:00] VITALS: BP 117/75
[2018-01-20 08:00] VITALS: BP 102/70
--- NOTE | 2018-01-20 08:44 | Infectious Diseases Prog Note ---
Assessment/Plan Assessment/Plan Assessment: R flank pain- chronic b/l calculus, possibly infected -CT abd/p: Distal right ureteral calculi, stable over multiple earlier studies dating back to 09/20/2014, again demonstrated. There is persistent right hydronephrosis and right renal atrophy. Nonobstructive right lower pole renal calculi are again demonstrated. Large left renal staghorn calculus, also present as far back as 2013. Mild right hydronephrosis but no ureteral calculi or hydroureter. Other nonobstructive left lower pole renal calculi are also evident. Gas bubbles within the left renal collecting system and bladder, markedly decreased from the previous 2016 exam. Uncertain as to whether these represent bladder instrumentation with reflux into the left renal collecting system, versus artifact due to infection with gas -forming organism. Correlate with clinical and laboratory findings. The bladder wall is also mildly thickened, unchanged from previously. Cystitis a possibility. Left renal cyst, also previously described. Cholelithiasis, new since prior study. Left basilar dependent pulmonary parenchymal atelectasis. Evidence of COPD, with hyperinflation and a single small bulla. Evidence of prior prostatectomy -u/a wbc 30-40, nit +, leuk +3; ucx >100K ESBL E.coli (S zozyn, nitrofurantoin , bactrim, ertapenem;R levo); repeat u/a 01/08 wbc tntc, nit+, leuk +3; ucx 50- 60k E.fecalis (S vanco, amp; R levo) -Bcx Neg Mild leukocytosis, resolved -CXR no acute process -Xray R foot and L foot: no acute process HAMZAH on CKD, improving recent possible UTI oct 2017, s/p Rx -u/a WBC TNTC- ucx >100k E. fecalis (S Vanco, amp), 30-40k mixed gram positive growth Chronic Hep C infection - hEp C VL 42K 10/2017 -Hep A Imm, Hep B Ab neg, HIV Neg History of recurrent urinary tract infection. History of osteomyelitis of the second left toe and distal phalanx. History of prostate cancer. History of renal stone and CKD. Dementia HTN CVA hx IVDA Plan: monitor pt off of AB Rx 01/06 SP Bactrim DS 1 tab bid #10/10 for possible ESBL UTI and PO Amoxicillin #5/5 for enterococcal coverage -01/10 SP Ertapenem #4 -01/06 SP IV Vancomycin #2 -01/05 SP Ceftriaxone x1 -11/12 SP PO ampicillin #14 -uro eval- no intervention needed a this point -monitor CBC/BMP, temperatures -pain control -aspiration precautions. Subjective Constitutional: Denies: no symptoms, fever, chills, fatigue, anorexia, drenching sweats, other Allergies: Uncoded Allergies: anesthesia (Allergy, Unknown, 07/04/14) Subjective afebrile Objective Vital Signs Last 24 Hour Vital Signs Date Time Temp Pulse Resp B/P (MAP) Pulse Ox O2 Delivery O2 Flow Rate FiO2 01/20/18 07:55 86 18 Room Air 21 01/20/18 04:00 98.0 70 20 117/75 97 98.0 01/20/18 00:00 97.9 75 20 109/75 97 97.9 01/19/18 21:12 111 114/80 01/19/18 20:00 98.2 111 20 114/80 95 98.2 01/19/18 19:30 90 20 Room Air 21 01/19/18 16:00 97.2 95 20 102/53 99 Room Air 97.2 01/19/18 12:00 Room Air 01/19/18 12:00 98.0 88 20 109/74 97 98.0 01/19/18 09:20 89 20 Room Air 21 01/19/18 09:00 89 106/68 Height (Feet): 5 Height (Inches): 9.00 Weight (Pounds): 180 HEENT: atraumatic Respiratory/Chest: no respiratory distress Cardiovascular: regularly irregular Abdomen: no organomegaly Current Medications Medications (Trade) Dose Ordered Sig/Lucie Route PRN Reason Start Time Stop Time Status Last Admin Dose Admin Acetaminophen (Tylenol) 650 mg Q4H PRN ORAL T>100.5 01/05/18 19:15 02/04/18 19:14 Albuterol/ Ipratropium (Albuterol/ Ipratropium) 3 ml Q4H PRN HHN Shortness of Breath 01/15/18 10:00 01/20/18 09:59 Dextromethorphan/ Quinidine (Nuedexta Capsule) 1 cap DAILY ORAL 01/16/18 16:00 01/22/18 09:01 01/19/18 09:01 Dextromethorphan/ Quinidine (Nuedexta Capsule) 1 cap Q12HR ORAL 01/23/18 09:00 02/22/18 08:59 Diphenhydramine HCl (Benadryl) 25 mg Q6H PRN IVP Itching 01/16/18 13:15 02/15/18 13:14 Docusate Sodium (Colace) 100 mg TWICE A DAY ORAL 01/11/18 11:00 02/10/18 10:59 01/19/18 17:33 Heparin Sodium (Porcine) (Heparin 5000 units/ml) 5,000 units EVERY 12 HOURS SUBQ 01/05/18 21:00 02/04/18 20:59 01/19/18 21:14 Lansoprazole (Prevacid) 30 mg DAILY ORAL 01/11/18 10:45 02/10/18 10:44 01/19/18 09:02 Lorazepam (Ativan 2mg/ml 1ml) 1 mg Q6H PRN IV For Anxiety 01/16/18 13:30 01/23/18 13:29 Metoprolol Tartrate (Lopressor) 25 mg Q12HR ORAL 01/14/18 21:00 02/13/18 20:59 01/19/18 21:12 Mirtazapine (Remeron) 15 mg BEDTIME ORAL 01/05/18 21:00 02/04/18 20:59 01/19/18 21:12 Morphine Sulfate (Morphine Sulfate) 2 mg Q4H PRN IVP Moderate Pain (Pain Scale 4-6) 01/15/18 10:00 01/22/18 09:59 Ondansetron HCl (Zofran) 4 mg Q6H PRN IVP Nausea & Vomiting 01/05/18 19:15 02/04/18 19:14 Phenazopyridine HCl (Pyridium) 100 mg DAILYPRN PRN ORAL dysuria 01/05/18 19:15 02/04/18 19:14 Polyethylene Glycol (Miralax) 17 gm DAILYPRN PRN ORAL Constipation 01/05/18 19:15 02/04/18 19:14 01/13/18 17:26 Quetiapine Fumarate (SEROquel) 25 mg Q8HR ORAL 01/19/18 14:00 02/17/18 21:59 01/20/18 05:27 Tamsulosin HCl (Flomax) 0.4 mg BEDTIME ORAL 01/11/18 21:00 02/10/18 20:59 01/19/18 21:12 Jose Bello MD Jan 20, 2018 08:44
[2018-01-20] MEDS: Nuedexta Capsule 20/10mg ORAL SCH (09:00)
[2018-01-20] MEDS: Docusate 100mg cap ORAL SCH ×2 (10:38→18:00)
[2018-01-20] MEDS: Metoprolol 25mg tab ORAL SCH (10:38)
[2018-01-20] MEDS: Heparin 5000 units/ml inj SUBQ SCH ×2 (10:39→21:00)
[2018-01-20 12:00] VITALS: BP 99/62
[2018-01-20 16:00] VITALS: BP 98/72
--- NOTE | 2018-01-20 16:21 | Nephrology Progress Note ---
Assessment/Plan Problem List: (1) CKD (chronic kidney disease) (2) Hyperkalemia (3) UTI (lower urinary tract infection) Assessment Pyelo with E coli ESBL CKD Cr rodney 2.7 down 2.4 and now 2.1 HTN Hx of CVA COPD dementia bilateral nephrolithiasis with persistent R hydronephrosis/obstructive Chronic hep C infection hx of IVDA Hx of prostate Ca L foot 2 nd toe amputation Hx of osteo L 2 nd toe and distal phalanx Plan Plan: down dose lopressor ? DC Bactrim?? due to kidney insufficiency Fluid challenge change diet to renal Monitor renal parameters avoid nephrotoxics as possible Keep hydrated add lopressor add prevacid per orders Subjective ROS Limited/Unobtainable: No Constitutional: Reports: malaise Objective Objective Last 24 Hour Vital Signs Date Time Temp Pulse Resp B/P (MAP) Pulse Ox O2 Delivery O2 Flow Rate FiO2 01/20/18 16:00 97.5 74 20 98/72 97 97.5 01/20/18 12:00 97.6 76 20 99/62 97 97.6 01/20/18 10:38 75 102/70 01/20/18 08:00 97.5 75 20 102/70 97 97.5 01/20/18 07:55 86 18 Room Air 21 01/20/18 04:00 98.0 70 20 117/75 97 98.0 01/20/18 00:00 97.9 75 20 109/75 97 97.9 01/19/18 21:12 111 114/80 01/19/18 20:00 98.2 111 20 114/80 95 98.2 01/19/18 19:30 90 20 Room Air 21 Intake and Output 01/19/18 01/20/18 19:00 07:00 Intake Total 200 ml Output Total 520 ml Balance 200 ml -520 ml Intake Oral 200 ml Output Urine Total 520 ml # Voids 7 # Bowel Movements 1 Height (Feet): 5 Height (Inches): 9.00 Weight (Pounds): 180 General Appearance: no apparent distress Respiratory/Chest: decreased breath sounds Abdomen: soft Objective no change STEPHY HENDERSON Jan 20, 2018 16:21
[2018-01-20] MEDS ORDERED: Sodium Chloride 500ML 550 ML IV ONE (16:35)
--- NOTE | 2018-01-20 19:17 | Pulmonology Progress Note ---
Assessment/Plan Problems: (1) Pyelonephritis (2) ARF (acute renal failure) (3) Dementia (4) UTI (lower urinary tract infection) Assessment/Plan dc iv fluid, active order in EMR, pt is not receiving licensed master social worker evaluation pt/ot f/u electrolytes dc planning brandi rigoberto, Zunilda casiano [place], [place] Subjective ROS Limited/Unobtainable: No Constitutional: Reports: no symptoms HEENT: Repors: no symptoms Respiratory: Reports: no symptoms Allergies: Uncoded Allergies: anesthesia (Allergy, Unknown, 07/04/14) Objective Last 24 Hour Vital Signs Date Time Temp Pulse Resp B/P (MAP) Pulse Ox O2 Delivery O2 Flow Rate FiO2 01/20/18 16:00 97.5 74 20 98/72 97 97.5 01/20/18 12:00 97.6 76 20 99/62 97 97.6 01/20/18 10:38 75 102/70 01/20/18 08:00 97.5 75 20 102/70 97 97.5 01/20/18 07:55 86 18 Room Air 21 01/20/18 04:00 98.0 70 20 117/75 97 98.0 01/20/18 00:00 97.9 75 20 109/75 97 97.9 01/19/18 21:12 111 114/80 01/19/18 20:00 98.2 111 20 114/80 95 98.2 01/19/18 19:30 90 20 Room Air 21 Intake and Output 01/19/18 01/20/18 19:00 07:00 Intake Total 200 ml Output Total 520 ml Balance 200 ml -520 ml Intake Oral 200 ml Output Urine Total 520 ml # Voids 7 # Bowel Movements 1 Objective General Appearance: WD/WN Lines, tubes and drains: peripheral HEENT: normocephalic, atraumatic Neck: non-tender, normal alignment Respiratory/Chest: chest wall non-tender, lungs clear, normal breath sounds Breasts: no masses Cardiovascular/Chest: normal peripheral pulses, normal rate, no JVD Abdomen: normal bowel sounds, non tender Current Medications Medications (Trade) Dose Ordered Sig/Lucie Route PRN Reason Start Time Stop Time Status Last Admin Dose Admin Acetaminophen (Tylenol) 650 mg Q4H PRN ORAL T>100.5 01/05/18 19:15 02/04/18 19:14 Dextromethorphan/ Quinidine (Nuedexta Capsule) 1 cap DAILY ORAL 01/16/18 16:00 01/22/18 09:01 01/20/18 09:00 Dextromethorphan/ Quinidine (Nuedexta Capsule) 1 cap Q12HR ORAL 01/23/18 09:00 02/22/18 08:59 Diphenhydramine HCl (Benadryl) 25 mg Q6H PRN IVP Itching 01/16/18 13:15 02/15/18 13:14 Docusate Sodium (Colace) 100 mg TWICE A DAY ORAL 01/11/18 11:00 02/10/18 10:59 01/20/18 10:38 Heparin Sodium (Porcine) (Heparin 5000 units/ml) 5,000 units EVERY 12 HOURS SUBQ 01/05/18 21:00 02/04/18 20:59 01/20/18 10:39 Lansoprazole (Prevacid) 30 mg DAILY ORAL 01/11/18 10:45 02/10/18 10:44 01/20/18 10:38 Lorazepam (Ativan 2mg/ml 1ml) 1 mg Q6H PRN IV For Anxiety 01/16/18 13:30 01/23/18 13:29 Metoprolol Tartrate (Lopressor) 12.5 mg Q12HR ORAL 01/20/18 21:00 02/13/18 20:59 Mirtazapine (Remeron) 15 mg BEDTIME ORAL 01/05/18 21:00 02/04/18 20:59 01/19/18 21:12 Morphine Sulfate (Morphine Sulfate) 2 mg Q4H PRN IVP Moderate Pain (Pain Scale 4-6) 01/15/18 10:00 01/22/18 09:59 Ondansetron HCl (Zofran) 4 mg Q6H PRN IVP Nausea & Vomiting 01/05/18 19:15 02/04/18 19:14 Phenazopyridine HCl (Pyridium) 100 mg DAILYPRN PRN ORAL dysuria 01/05/18 19:15 02/04/18 19:14 Polyethylene Glycol (Miralax) 17 gm DAILYPRN PRN ORAL Constipation 01/05/18 19:15 02/04/18 19:14 01/13/18 17:26 Quetiapine Fumarate (SEROquel) 25 mg Q8HR ORAL 01/19/18 14:00 02/17/18 21:59 01/20/18 09:00 Tamsulosin HCl (Flomax) 0.4 mg BEDTIME ORAL 01/11/18 21:00 02/10/18 20:59 01/19/18 21:12 German Mooney MD Jan 20, 2018 19:17
[2018-01-20 20:50] VITALS: BP 102/61
[2018-01-20] MEDS: Tamsulosin 0.4mg cap ORAL SCH (20:57)
[2018-01-20] MEDS: Metoprolol Tartrate 12.5mg TAB ORAL SCH (20:57)
--- NOTE | 2018-01-20 23:05 | General Progress Note ---
Assessment/Plan Assessment/Plan Dementia with behavioral disturbance mdd -seroquel 25 mg bid -ro -Nuedexta once daily Subjective Allergies: Uncoded Allergies: anesthesia (Allergy, Unknown, 07/04/14) Subjective calm and more re-directable no agitation Objective Last 24 Hour Vital Signs Date Time Temp Pulse Resp B/P (MAP) Pulse Ox O2 Delivery O2 Flow Rate FiO2 01/20/18 20:57 61 102/61 01/20/18 16:00 97.5 74 20 98/72 97 97.5 01/20/18 12:00 97.6 76 20 99/62 97 97.6 01/20/18 10:38 75 102/70 01/20/18 08:00 97.5 75 20 102/70 97 97.5 01/20/18 07:55 86 18 Room Air 21 01/20/18 04:00 98.0 70 20 117/75 97 98.0 01/20/18 00:00 97.9 75 20 109/75 97 97.9 Intake and Output 01/19/18 01/20/18 19:00 07:00 Intake Total 200 ml Output Total 520 ml Balance 200 ml -520 ml Intake Oral 200 ml Output Urine Total 520 ml # Voids 7 # Bowel Movements 1 Height (Feet): 5 Height (Inches): 9.00 Weight (Pounds): 180 Mckenna Bermudez M.D. Jan 20, 2018 23:05
[2018-01-21 00:01] VITALS: BP 113/71
[2018-01-21 04:00] VITALS: BP 140/79
[2018-01-21 08:00] VITALS: BP 114/85
[2018-01-21] MEDS: Metoprolol Tartrate 12.5mg TAB ORAL SCH ×2 (08:16→20:59)
[2018-01-21] MEDS: Nuedexta Capsule 20/10mg ORAL SCH (08:17)
[2018-01-21] MEDS: Docusate 100mg cap ORAL SCH ×2 (08:17→17:36)
[2018-01-21] MEDS: Heparin 5000 units/ml inj SUBQ SCH ×2 (08:17→21:00)
--- NOTE | 2018-01-21 09:46 | Infectious Diseases Prog Note ---
Assessment/Plan Assessment/Plan Assessment: R flank pain- chronic b/l calculus, possibly infected -CT abd/p: Distal right ureteral calculi, stable over multiple earlier studies dating back to 09/20/2014, again demonstrated. There is persistent right hydronephrosis and right renal atrophy. Nonobstructive right lower pole renal calculi are again demonstrated. Large left renal staghorn calculus, also present as far back as 2013. Mild right hydronephrosis but no ureteral calculi or hydroureter. Other nonobstructive left lower pole renal calculi are also evident. Gas bubbles within the left renal collecting system and bladder, markedly decreased from the previous 2016 exam. Uncertain as to whether these represent bladder instrumentation with reflux into the left renal collecting system, versus artifact due to infection with gas -forming organism. Correlate with clinical and laboratory findings. The bladder wall is also mildly thickened, unchanged from previously. Cystitis a possibility. Left renal cyst, also previously described. Cholelithiasis, new since prior study. Left basilar dependent pulmonary parenchymal atelectasis. Evidence of COPD, with hyperinflation and a single small bulla. Evidence of prior prostatectomy -u/a wbc 30-40, nit +, leuk +3; ucx >100K ESBL E.coli (S zozyn, nitrofurantoin , bactrim, ertapenem;R levo); repeat u/a 01/08 wbc tntc, nit+, leuk +3; ucx 50- 60k E.fecalis (S vanco, amp; R levo) -Bcx Neg Mild leukocytosis, resolved -CXR no acute process -Xray R foot and L foot: no acute process HAMZAH on CKD, improving recent possible UTI oct 2017, s/p Rx -u/a WBC TNTC- ucx >100k E. fecalis (S Vanco, amp), 30-40k mixed gram positive growth Chronic Hep C infection - hEp C VL 42K 10/2017 -Hep A Imm, Hep B Ab neg, HIV Neg History of recurrent urinary tract infection. History of osteomyelitis of the second left toe and distal phalanx. History of prostate cancer. History of renal stone and CKD. Dementia HTN CVA hx IVDA Plan: monitor pt off of AB Rx 01/06 SP Bactrim DS 1 tab bid #10/10 for possible ESBL UTI and PO Amoxicillin #5/5 for enterococcal coverage -01/10 SP Ertapenem #4 -01/06 SP IV Vancomycin #2 -01/05 SP Ceftriaxone x1 -11/12 SP PO ampicillin #14 -uro eval- no intervention needed a this point -monitor CBC/BMP, temperatures -pain control -aspiration precautions. Subjective Allergies: Uncoded Allergies: anesthesia (Allergy, Unknown, 07/04/14) Subjective afebrile Objective Vital Signs Last 24 Hour Vital Signs Date Time Temp Pulse Resp B/P (MAP) Pulse Ox O2 Delivery O2 Flow Rate FiO2 01/21/18 08:16 87 114/85 01/21/18 08:00 97.2 87 18 114/85 99 97.2 01/21/18 07:20 84 18 Room Air 21 01/21/18 04:00 97.7 73 18 140/79 97 Room Air 97.7 01/21/18 00:01 97.9 75 18 113/71 97 Room Air 97.9 01/20/18 20:57 61 102/61 01/20/18 20:50 97.7 73 18 102/61 97 97.7 01/20/18 19:00 88 20 Room Air 21 01/20/18 16:00 97.5 74 20 98/72 97 97.5 01/20/18 12:00 97.6 76 20 99/62 97 97.6 01/20/18 10:38 75 102/70 Height (Feet): 5 Height (Inches): 9.00 Weight (Pounds): 180 Respiratory/Chest: lungs clear Cardiovascular: regular rhythm Abdomen: no organomegaly Current Medications Medications (Trade) Dose Ordered Sig/Lucie Route PRN Reason Start Time Stop Time Status Last Admin Dose Admin Acetaminophen (Tylenol) 650 mg Q4H PRN ORAL T>100.5 01/05/18 19:15 02/04/18 19:14 Dextromethorphan/ Quinidine (Nuedexta Capsule) 1 cap DAILY ORAL 01/16/18 16:00 01/22/18 09:01 01/21/18 08:17 Dextromethorphan/ Quinidine (Nuedexta Capsule) 1 cap Q12HR ORAL 01/23/18 09:00 02/22/18 08:59 Diphenhydramine HCl (Benadryl) 25 mg Q6H PRN IVP Itching 01/16/18 13:15 02/15/18 13:14 Docusate Sodium (Colace) 100 mg TWICE A DAY ORAL 01/11/18 11:00 02/10/18 10:59 01/21/18 08:17 Heparin Sodium (Porcine) (Heparin 5000 units/ml) 5,000 units EVERY 12 HOURS SUBQ 01/05/18 21:00 02/04/18 20:59 01/20/18 10:39 Lansoprazole (Prevacid) 30 mg DAILY ORAL 01/11/18 10:45 02/10/18 10:44 01/21/18 08:17 Lorazepam (Ativan 2mg/ml 1ml) 1 mg Q6H PRN IV For Anxiety 01/16/18 13:30 01/23/18 13:29 Metoprolol Tartrate (Lopressor) 12.5 mg Q12HR ORAL 01/20/18 21:00 02/13/18 20:59 01/21/18 08:16 Mirtazapine (Remeron) 15 mg BEDTIME ORAL 01/05/18 21:00 02/04/18 20:59 01/20/18 20:57 Morphine Sulfate (Morphine Sulfate) 2 mg Q4H PRN IVP Moderate Pain (Pain Scale 4-6) 01/15/18 10:00 01/22/18 09:59 Ondansetron HCl (Zofran) 4 mg Q6H PRN IVP Nausea & Vomiting 01/05/18 19:15 02/04/18 19:14 Phenazopyridine HCl (Pyridium) 100 mg DAILYPRN PRN ORAL dysuria 01/05/18 19:15 02/04/18 19:14 Polyethylene Glycol (Miralax) 17 gm DAILYPRN PRN ORAL Constipation 01/05/18 19:15 02/04/18 19:14 01/13/18 17:26 Quetiapine Fumarate (SEROquel) 25 mg Q8HR ORAL 01/19/18 14:00 02/17/18 21:59 01/21/18 05:23 Tamsulosin HCl (Flomax) 0.4 mg BEDTIME ORAL 01/11/18 21:00 02/10/18 20:59 01/20/18 20:57 Jose Bello MD Jan 21, 2018 09:46
[2018-01-21 11:59] VITALS: BP 117/78
--- NOTE | 2018-01-21 12:31 | General Progress Note ---
Assessment/Plan Status: stable, progressing Assessment/Plan Dementia with behavioral disturbance mdd -seroquel 25 mg bid -ro/st -Nuedexta once daily Subjective Date patient seen: Jan 21, 2018 Neurologic/Psychiatric: Reports: anxiety, depressed, emotional problems Allergies: Uncoded Allergies: anesthesia (Allergy, Unknown, 07/04/14) Subjective calm and more directable no agitation today. Objective Last 24 Hour Vital Signs Date Time Temp Pulse Resp B/P (MAP) Pulse Ox O2 Delivery O2 Flow Rate FiO2 01/21/18 11:59 97.3 61 18 117/78 99 97.3 01/21/18 08:16 87 114/85 01/21/18 08:00 97.2 87 18 114/85 99 97.2 01/21/18 07:20 84 18 Room Air 21 01/21/18 04:00 97.7 73 18 140/79 97 Room Air 97.7 01/21/18 00:01 97.9 75 18 113/71 97 Room Air 97.9 01/20/18 20:57 61 102/61 01/20/18 20:50 97.7 73 18 102/61 97 97.7 01/20/18 19:00 88 20 Room Air 21 01/20/18 16:00 97.5 74 20 98/72 97 97.5 Intake and Output 01/20/18 01/21/18 19:00 07:00 Intake Total 500 ml 240 ml Balance 500 ml 240 ml Intake Oral 500 ml 240 ml # Voids 4 2 # Bowel Movements 1 Height (Feet): 5 Height (Inches): 9.00 Weight (Pounds): 180 General Appearance: no apparent distress, alert, confused Mckenna Bermudez M.D. Jan 21, 2018 12:31
--- NOTE | 2018-01-21 12:53 | Podiatric Progress Note ---
Assessment/Plan Patient Arcadio Roth is a 67 year old male who was admitted on Jan 05, 2018 at 16: 56 with Assessment/Plan A/ 1) h/o left foot osteo 2) Left 2nd toe partial amp 3) PAD 4) Difficulty walking 5) Onychomycosis with pain P/ Toenails were debrided x 9 toes without incident. Will sign off. Please reconsult as needed. Thank you Dr Mooney Subjective Allergies: Uncoded Allergies: anesthesia (Allergy, Unknown, 07/04/14) Subjective Patient complains of painful toenails Objective Exam Last 24 Hour Vital Signs Date Time Temp Pulse Resp B/P (MAP) Pulse Ox O2 Delivery O2 Flow Rate FiO2 01/21/18 11:59 97.3 61 18 117/78 99 97.3 01/21/18 08:16 87 114/85 01/21/18 08:00 97.2 87 18 114/85 99 97.2 01/21/18 07:20 84 18 Room Air 21 01/21/18 04:00 97.7 73 18 140/79 97 Room Air 97.7 01/21/18 00:01 97.9 75 18 113/71 97 Room Air 97.9 01/20/18 20:57 61 102/61 01/20/18 20:50 97.7 73 18 102/61 97 97.7 01/20/18 19:00 88 20 Room Air 21 01/20/18 16:00 97.5 74 20 98/72 97 97.5 Microbiology Date/Time Source Procedure Growth Status 01/05/18 17:45 Blood Blood Culture - Final NO GROWTH AFTER 5 DAYS Complete 01/08/18 18:57 Urine,Clean Catch Urine Culture - Final Enterococcus Faecalis Complete Dermatological Dermatological Narrative Toenails are elongated and painful x 9 toes No wounds noted Bo Devi DPM Jan 21, 2018 12:53
--- NOTE | 2018-01-21 13:23 | Nephrology Progress Note ---
Assessment/Plan Problem List: (1) CKD (chronic kidney disease) (2) Hyperkalemia (3) UTI (lower urinary tract infection) Assessment Pyelo with E coli ESBL CKD Cr rodney 2.7 down 2.4 and now 2.1 HTN Hx of CVA COPD dementia bilateral nephrolithiasis with persistent R hydronephrosis/obstructive Chronic hep C infection hx of IVDA Hx of prostate Ca L foot 2 nd toe amputation Hx of osteo L 2 nd toe and distal phalanx Plan Plan: down dose lopressor no labs today Fluid challenge change diet to renal Monitor renal parameters avoid nephrotoxics as possible Keep hydrated add lopressor add prevacid per orders Subjective ROS Limited/Unobtainable: No Objective Objective Last 24 Hour Vital Signs Date Time Temp Pulse Resp B/P (MAP) Pulse Ox O2 Delivery O2 Flow Rate FiO2 01/21/18 11:59 97.3 61 18 117/78 99 97.3 01/21/18 08:16 87 114/85 01/21/18 08:00 97.2 87 18 114/85 99 97.2 01/21/18 07:20 84 18 Room Air 21 01/21/18 04:00 97.7 73 18 140/79 97 Room Air 97.7 01/21/18 00:01 97.9 75 18 113/71 97 Room Air 97.9 01/20/18 20:57 61 102/61 01/20/18 20:50 97.7 73 18 102/61 97 97.7 01/20/18 19:00 88 20 Room Air 21 01/20/18 16:00 97.5 74 20 98/72 97 97.5 Intake and Output 01/20/18 01/21/18 19:00 07:00 Intake Total 500 ml 240 ml Balance 500 ml 240 ml Intake Oral 500 ml 240 ml # Voids 4 2 # Bowel Movements 1 Height (Feet): 5 Height (Inches): 9.00 Weight (Pounds): 180 General Appearance: no apparent distress Respiratory/Chest: decreased breath sounds Abdomen: soft Objective no change STEPHY HENDERSON Jan 21, 2018 13:23
[2018-01-21 15:52] VITALS: BP 113/76
--- NOTE | 2018-01-21 19:39 | Pulmonology Progress Note ---
Assessment/Plan Problems: (1) Pyelonephritis (2) ARF (acute renal failure) (3) Dementia (4) UTI (lower urinary tract infection) Assessment/Plan doing better wondering in the hallway. social work professor evaluation pt/ot f/u electrolytes dc planning brandi rigoberto, stephenie, Julius Rashid, Steve Paez Subjective ROS Limited/Unobtainable: No Constitutional: Reports: no symptoms HEENT: Repors: no symptoms Respiratory: Reports: no symptoms Allergies: Uncoded Allergies: anesthesia (Allergy, Unknown, 07/04/14) Objective Last 24 Hour Vital Signs Date Time Temp Pulse Resp B/P (MAP) Pulse Ox O2 Delivery O2 Flow Rate FiO2 01/21/18 15:52 97.4 73 18 113/76 98 97.4 01/21/18 11:59 97.3 61 18 117/78 99 97.3 01/21/18 08:16 87 114/85 01/21/18 08:00 97.2 87 18 114/85 99 97.2 01/21/18 07:20 84 18 Room Air 21 01/21/18 04:00 97.7 73 18 140/79 97 Room Air 97.7 01/21/18 00:01 97.9 75 18 113/71 97 Room Air 97.9 01/20/18 20:57 61 102/61 01/20/18 20:50 97.7 73 18 102/61 97 97.7 Intake and Output 01/20/18 01/21/18 19:00 07:00 Intake Total 500 ml 240 ml Balance 500 ml 240 ml Intake Oral 500 ml 240 ml # Voids 4 2 # Bowel Movements 1 Objective General Appearance: WD/WN Lines, tubes and drains: peripheral HEENT: normocephalic, atraumatic Neck: non-tender, normal alignment Respiratory/Chest: chest wall non-tender, lungs clear, normal breath sounds Breasts: no masses Cardiovascular/Chest: normal peripheral pulses, normal rate, no JVD Abdomen: normal bowel sounds, non tender Current Medications Medications (Trade) Dose Ordered Sig/Lucie Route PRN Reason Start Time Stop Time Status Last Admin Dose Admin Acetaminophen (Tylenol) 650 mg Q4H PRN ORAL T>100.5 01/05/18 19:15 02/04/18 19:14 Dextromethorphan/ Quinidine (Nuedexta Capsule) 1 cap DAILY ORAL 01/16/18 16:00 01/22/18 09:01 01/21/18 08:17 Dextromethorphan/ Quinidine (Nuedexta Capsule) 1 cap Q12HR ORAL 01/23/18 09:00 02/22/18 08:59 Diphenhydramine HCl (Benadryl) 25 mg Q6H PRN IVP Itching 01/16/18 13:15 02/15/18 13:14 Docusate Sodium (Colace) 100 mg TWICE A DAY ORAL 01/11/18 11:00 02/10/18 10:59 01/21/18 17:36 Heparin Sodium (Porcine) (Heparin 5000 units/ml) 5,000 units EVERY 12 HOURS SUBQ 01/05/18 21:00 02/04/18 20:59 01/20/18 10:39 Lansoprazole (Prevacid) 30 mg DAILY ORAL 01/11/18 10:45 02/10/18 10:44 01/21/18 08:17 Lorazepam (Ativan 2mg/ml 1ml) 1 mg Q6H PRN IV For Anxiety 01/16/18 13:30 01/23/18 13:29 Metoprolol Tartrate (Lopressor) 12.5 mg Q12HR ORAL 01/20/18 21:00 02/13/18 20:59 01/21/18 08:16 Mirtazapine (Remeron) 15 mg BEDTIME ORAL 01/05/18 21:00 02/04/18 20:59 01/20/18 20:57 Morphine Sulfate (Morphine Sulfate) 2 mg Q4H PRN IVP Moderate Pain (Pain Scale 4-6) 01/15/18 10:00 01/22/18 09:59 Ondansetron HCl (Zofran) 4 mg Q6H PRN IVP Nausea & Vomiting 01/05/18 19:15 02/04/18 19:14 Phenazopyridine HCl (Pyridium) 100 mg DAILYPRN PRN ORAL dysuria 01/05/18 19:15 02/04/18 19:14 Polyethylene Glycol (Miralax) 17 gm DAILYPRN PRN ORAL Constipation 01/05/18 19:15 02/04/18 19:14 01/13/18 17:26 Quetiapine Fumarate (SEROquel) 25 mg Q8HR ORAL 01/19/18 14:00 02/17/18 21:59 01/21/18 15:48 Tamsulosin HCl (Flomax) 0.4 mg BEDTIME ORAL 01/11/18 21:00 02/10/18 20:59 01/20/18 20:57 German Mooney MD Jan 21, 2018 19:39
[2018-01-21 20:30] VITALS: BP 139/88
[2018-01-21] MEDS: Tamsulosin 0.4mg cap ORAL SCH (21:00)
[2018-01-21] MEDS ORDERED: Tubing IV Secondary IV ONE (21:12)
[2018-01-21] MEDS ORDERED: D5NS 1000ml IV ONE (21:12)
[2018-01-22 00:02] VITALS: BP 134/80
[2018-01-22 04:38] VITALS: BP 131/76
[2018-01-22 08:00] VITALS: BP 98/63
[2018-01-22] MEDS: Heparin 5000 units/ml inj SUBQ SCH (09:00)
[2018-01-22] MEDS: Metoprolol Tartrate 12.5mg TAB ORAL SCH (09:00)
[2018-01-22] MEDS: Docusate 100mg cap ORAL SCH ×2 (09:06→17:05)
[2018-01-22] MEDS: Nuedexta Capsule 20/10mg ORAL SCH (09:06)
[2018-01-22 12:00] VITALS: BP 101/67
--- NOTE | 2018-01-22 12:48 | Infectious Diseases Prog Note ---
Assessment/Plan Assessment/Plan Assessment: R flank pain- chronic b/l calculus, possibly infected -CT abd/p: Distal right ureteral calculi, stable over multiple earlier studies dating back to 09/20/2014, again demonstrated. There is persistent right hydronephrosis and right renal atrophy. Nonobstructive right lower pole renal calculi are again demonstrated. Large left renal staghorn calculus, also present as far back as 2013. Mild right hydronephrosis but no ureteral calculi or hydroureter. Other nonobstructive left lower pole renal calculi are also evident. Gas bubbles within the left renal collecting system and bladder, markedly decreased from the previous 2016 exam. Uncertain as to whether these represent bladder instrumentation with reflux into the left renal collecting system, versus artifact due to infection with gas -forming organism. Correlate with clinical and laboratory findings. The bladder wall is also mildly thickened, unchanged from previously. Cystitis a possibility. Left renal cyst, also previously described. Cholelithiasis, new since prior study. Left basilar dependent pulmonary parenchymal atelectasis. Evidence of COPD, with hyperinflation and a single small bulla. Evidence of prior prostatectomy -u/a wbc 30-40, nit +, leuk +3; ucx >100K ESBL E.coli (S zozyn, nitrofurantoin , bactrim, ertapenem;R levo); repeat u/a 01/08 wbc tntc, nit+, leuk +3; ucx 50- 60k E.fecalis (S vanco, amp; R levo) -Bcx Neg Mild leukocytosis, resolved -CXR no acute process -Xray R foot and L foot: no acute process HAMZAH on CKD, improving recent possible UTI oct 2017, s/p Rx -u/a WBC TNTC- ucx >100k E. fecalis (S Vanco, amp), 30-40k mixed gram positive growth Chronic Hep C infection - hEp C VL 42K 10/2017 -Hep A Imm, Hep B Ab neg, HIV Neg History of recurrent urinary tract infection. History of osteomyelitis of the second left toe and distal phalanx. History of prostate cancer. History of renal stone and CKD. Dementia HTN CVA hx IVDA Plan: monitor pt off of AB Rx 01/06 SP Bactrim DS 1 tab bid #10/10 for possible ESBL UTI and PO Amoxicillin #5/5 for enterococcal coverage -01/10 SP Ertapenem #4 -01/06 SP IV Vancomycin #2 -01/05 SP Ceftriaxone x1 -11/12 SP PO ampicillin #14 -uro eval- no intervention needed a this point -monitor CBC/BMP, temperatures -pain control -aspiration precautions. Subjective Constitutional: Denies: no symptoms, fever, chills, fatigue, anorexia, drenching sweats, other Allergies: Uncoded Allergies: anesthesia (Allergy, Unknown, 07/04/14) Subjective afebrile Objective Vital Signs Last 24 Hour Vital Signs Date Time Temp Pulse Resp B/P (MAP) Pulse Ox O2 Delivery O2 Flow Rate FiO2 01/22/18 09:00 73 98/63 01/22/18 08:00 97.8 73 18 98/63 98 97.8 01/22/18 07:51 88 18 Room Air 21 01/22/18 04:38 96 Room Air 01/22/18 04:38 97.5 64 18 131/76 96 97.5 01/22/18 00:10 96 Room Air 01/22/18 00:02 97.6 77 18 134/80 96 97.6 01/21/18 20:59 80 139/88 01/21/18 20:30 96 Room Air 01/21/18 20:30 97.8 80 17 139/88 96 97.8 01/21/18 15:52 97.4 73 18 113/76 98 97.4 Height (Feet): 5 Height (Inches): 9.00 Weight (Pounds): 180 HEENT: anicteric Respiratory/Chest: no respiratory distress Cardiovascular: regular rhythm Abdomen: no organomegaly Current Medications Medications (Trade) Dose Ordered Sig/Lucie Route PRN Reason Start Time Stop Time Status Last Admin Dose Admin Acetaminophen (Tylenol) 650 mg Q4H PRN ORAL T>100.5 01/05/18 19:15 02/04/18 19:14 Dextromethorphan/ Quinidine (Nuedexta Capsule) 1 cap Q12HR ORAL 01/23/18 09:00 02/22/18 08:59 Diphenhydramine HCl (Benadryl) 25 mg Q6H PRN IVP Itching 01/16/18 13:15 02/15/18 13:14 Docusate Sodium (Colace) 100 mg TWICE A DAY ORAL 3/25/18 11:00 02/10/18 10:59 01/22/18 09:06 Heparin Sodium (Porcine) (Heparin 5000 units/ml) 5,000 units EVERY 12 HOURS SUBQ 01/05/18 21:00 02/04/18 20:59 01/20/18 10:39 Lansoprazole (Prevacid) 30 mg DAILY ORAL 01/11/18 10:45 02/10/18 10:44 01/22/18 09:06 Lorazepam (Ativan 2mg/ml 1ml) 1 mg Q6H PRN IV For Anxiety 01/16/18 13:30 01/23/18 13:29 Metoprolol Tartrate (Lopressor) 12.5 mg Q12HR ORAL 01/20/18 21:00 02/13/18 20:59 01/21/18 20:59 Mirtazapine (Remeron) 15 mg BEDTIME ORAL 01/05/18 21:00 02/04/18 20:59 01/21/18 21:00 Ondansetron HCl (Zofran) 4 mg Q6H PRN IVP Nausea & Vomiting 01/05/18 19:15 02/04/18 19:14 Phenazopyridine HCl (Pyridium) 100 mg DAILYPRN PRN ORAL dysuria 01/05/18 19:15 02/04/18 19:14 Polyethylene Glycol (Miralax) 17 gm DAILYPRN PRN ORAL Constipation 01/05/18 19:15 02/04/18 19:14 01/13/18 17:26 Quetiapine Fumarate (SEROquel) 25 mg Q8HR ORAL 01/19/18 14:00 02/17/18 21:59 01/22/18 05:54 Tamsulosin HCl (Flomax) 0.4 mg BEDTIME ORAL 01/11/18 21:00 02/10/18 20:59 01/21/18 21:00 Jose Bello MD Jan 22, 2018 12:48
--- NOTE | 2018-01-22 14:41 | Nephrology Progress Note ---
Assessment/Plan Problem List: (1) CKD (chronic kidney disease) (2) Hyperkalemia (3) UTI (lower urinary tract infection) Assessment Pyelo with E coli ESBL CKD Cr rodney 2.7 down 2.4 and now 2.1 HTN Hx of CVA COPD dementia bilateral nephrolithiasis with persistent R hydronephrosis/obstructive Chronic hep C infection hx of IVDA Hx of prostate Ca L foot 2 nd toe amputation Hx of osteo L 2 nd toe and distal phalanx Plan Plan: down dose lopressor no labs today Fluid challenge change diet to renal Monitor renal parameters avoid nephrotoxics as possible Keep hydrated add lopressor add prevacid per orders Subjective ROS Limited/Unobtainable: No Objective Objective Last 24 Hour Vital Signs Date Time Temp Pulse Resp B/P (MAP) Pulse Ox O2 Delivery O2 Flow Rate FiO2 01/22/18 12:00 97.3 76 20 101/67 99 Room Air 97.3 01/22/18 09:00 73 98/63 01/22/18 08:00 97.8 73 18 98/63 98 97.8 01/22/18 07:51 88 18 Room Air 21 01/22/18 04:38 96 Room Air 01/22/18 04:38 97.5 64 18 131/76 96 97.5 01/22/18 00:10 96 Room Air 01/22/18 00:02 97.6 77 18 134/80 96 97.6 01/21/18 20:59 80 139/88 01/21/18 20:30 96 Room Air 01/21/18 20:30 97.8 80 17 139/88 96 97.8 01/21/18 15:52 97.4 73 18 113/76 98 97.4 Intake and Output 01/21/18 01/22/18 19:00 07:00 Intake Total 480 ml 880 ml Balance 480 ml 880 ml Intake Oral 480 ml 880 ml # Voids 4 Height (Feet): 5 Height (Inches): 9.00 Weight (Pounds): 180 General Appearance: no apparent distress Objective no change STEPHY HENDERSON Jan 22, 2018 14:41
[2018-01-22 16:00] VITALS: BP 123/82
[2018-01-22 19:42] LABS: BASOPHILS % (AUTO) 0.5 % (0.0-2.0); EOSINOPHILS % (AUTO) 2.3 % (0.0-3.0); HEMATOCRIT 35.6 % (42.0-52.0); HEMOGLOBIN 11.4 G/DL (14.2-18.0); LYMPHOCYTES % (AUTO) 50.1 % (20.0-45.0); MEAN CORPUSCULAR VOLUME 92 FL (80-99); MONOCYTES % (AUTO) 8.5 % (1.0-10.0); NEUTROPHILS % (AUTO) 38.6 % (45.0-75.0); PLATELET COUNT 205 K/UL (150-450); RED BLOOD COUNT 3.85 M/UL (4.70-6.10); RED CELL DISTRIBUTION WIDTH 13.3 % (11.6-14.8); WHITE BLOOD COUNT 8.4 K/UL (4.8-10.8)
[2018-01-22 19:58] LABS: ALANINE AMINOTRANSFERASE 20 U/L (12-78); ALBUMIN 3.3 G/DL (3.4-5.0); ALBUMIN/GLOBULIN RATIO 0.8 (1.0-2.7); ALKALINE PHOSPHATASE 112 U/L (46-116); ANION GAP 10 mmol/L (5-15); ASPARTATE AMINO TRANSFERASE 24 U/L (15-37); BILIRUBIN,TOTAL 0.3 MG/DL (0.2-1.0); BLOOD UREA NITROGEN 47 mg/dL (7-18); CALCIUM 8.7 MG/DL (8.5-10.1); CARBON DIOXIDE 20 MMOL/L (21-32); CHLORIDE 109 MMOL/L (98-107); CREATININE 2.2 MG/DL (0.55-1.30); PHOSPHORUS 3.9 MG/DL (2.5-4.9); POTASSIUM 4.9 MMOL/L (3.5-5.1); SODIUM 139 MMOL/L (136-145)
[2018-01-22 20:00] VITALS: BP 135/69
--- NOTE | 2018-01-22 23:11 | General Progress Note ---
Assessment/Plan Assessment/Plan Dementia with behavioral disturbance mdd -seroquel 25 mg bid -ro/st -Nuedexta once daily Subjective Allergies: Uncoded Allergies: anesthesia (Allergy, Unknown, 07/04/14) Subjective calm and more directable no agitation today. Objective Last 24 Hour Vital Signs Date Time Temp Pulse Resp B/P (MAP) Pulse Ox O2 Delivery O2 Flow Rate FiO2 01/22/18 20:39 82 16 Room Air 21 01/22/18 20:00 98.2 85 18 135/69 98 98.2 01/22/18 16:00 97.7 75 18 123/82 98 Room Air 97.7 01/22/18 12:00 97.3 76 20 101/67 99 Room Air 97.3 01/22/18 09:00 73 98/63 01/22/18 08:00 97.8 73 18 98/63 98 97.8 01/22/18 07:51 88 18 Room Air 21 01/22/18 04:38 96 Room Air 01/22/18 04:38 97.5 64 18 131/76 96 97.5 01/22/18 00:10 96 Room Air 01/22/18 00:02 97.6 77 18 134/80 96 97.6 Intake and Output 01/21/18 01/22/18 19:00 07:00 Intake Total 1505 ml 880 ml Balance 1505 ml 880 ml Intake Oral 1505 ml 880 ml # Voids 5 4 Laboratory Tests 01/22/18 19:10: White Blood Count 8.4, Red Blood Count 3.85L, Hemoglobin 11.4L, Hematocrit 35.6L , Mean Corpuscular Volume 92, Mean Corpuscular Hemoglobin 29.5, Mean Corpuscular Hemoglobin Concent 31.9L, Red Cell Distribution Width 13.3, Platelet Count 205, Mean Platelet Volume 7.0, Neutrophils (%) (Auto) 38.6L, Lymphocytes (%) (Auto) 50.1H, Monocytes (%) (Auto) 8.5, Eosinophils (%) (Auto) 2.3, Basophils (%) (Auto) 0.5, Sodium Level 139, Potassium Level 4.9, Chloride Level 109H, Carbon Dioxide Level 20L, Anion Gap 10, Blood Urea Nitrogen 47H, Creatinine 2.2H, Estimat Glomerular Filtration Rate 36.2, Glucose Level 86, Uric Acid 9.3H, Calcium Level 8.7, Phosphorus Level 3.9, Magnesium Level 1.8, Total Bilirubin 0.3, Aspartate Amino Transf (AST/SGOT) 24, Alanine Aminotransferase (ALT/SGPT) 20, Alkaline Phosphatase 112, Total Protein 7.6, Albumin 3.3L, Globulin 4.3, Albumin/Globulin Ratio 0.8L Height (Feet): 5 Height (Inches): 9.00 Weight (Pounds): 180 Mckenna Bermudez M.D. Jan 22, 2018 23:11
[2018-01-23] MEDS ORDERED: Nuedexta Capsule 20/10mg ORAL SCH (09:00)
--- NOTE | 2018-01-23 15:09 | Discharge Summary ---
Discharge Summary Discharge Summary Discharge Summary DATE OF ADMISSION: 01/05/2018 DATE OF DISCHARGE: 01/22/2018 CONSULTANTS: Dr. Mckenna Devi [facility] HOSPITAL COURSE: Patient is a 67-year-old male with history of dementia, CVA, presented to ED, brought in by because he was agitated. He was complaining of right flank pain, and has been more upset/aggressive than usual. She also noted discoloration on the skin on bilateral feet. History was limited due to patient 's mental capacity and poor cooperation. On evaluation at ED, blood work showed leukocytosis WBC of 12.9., Creatinine was 1.8, BUN 41. Urinalysis showed WBC 30-40, RBC 5-10, 3+ leukocyte esterase. Bilateral foot x-ray was negative for acute fractures or dislocation. Chest x -ray showed no acute process. Patient has right flank pain, and has chronic bilateral calculus possibly infected. He was initially given ceftriaxone and vancomycin, he was followed by infectious disease specialist and was ertapenem for ESBL UTI. Patient has a staghorn stone in the left kidney and atrophic right kidney, he was evaluated by urologist. Per urology's evaluation, given patient's overall health and mental status, no intervention warranted at this time. Kidney is already atrophic and damage was done, left kidney has staghorn stone however no current evidence of significant hydronephrosis or blockage. He recommended treating infection. He was given pain management and pyridium. He had chronic kidney disease stage II, he had episodes of hyperkalemia and was given Kayexalate. He had history of left foot osteomyelitis, with left second toe partial amputation and peripheral artery disease, he was seen by short piece handler. Arterial ultrasound showed Doppler flow amplitude of tibial arteries appeared to be low. Toenails were debrided 9 without incidence. Blood cultures were negative. He was given Bactrim DS and amoxicillin for enterococcal coverage. He was observed off antibiotic treatment. He had elevated blood pressure and was given Lopressor. She had episodes of agitation and was given Seroquel 25 mg twice a day and Neudexta once daily. Patient will need placement upon discharge, he was referred to multiple nursing homes and was eventually admitted to [facility]. FINAL DIAGNOSES: Acute pyelonephritis with Escherichia coli ESBL and enterococci faecalis Acute encephalopathy likely due to UTI Acute renal failure on chronic kidney disease Hypertension Old CVA COPD Dementia with behavioral disturbance Bilateral nephrolithiasis with persistent right hydronephrosis Chronic hepatitis C infection History of IV drug abuse History of prostate CA Left foot second toe amputation History of osteomyelitis of left second toe and distal phalanx Hyperkalemia Major depression disorder Anxiety disorder DISPOSITION: Patient was transferred to [facility]. DISCHARGE MEDICATIONS: Refer to Discharge Medication List. I have been assigned to dictate discharge summary on this account, and I was not involved in the patient's management. Yamini Vasquez NP Jan 23, 2018 15:09
== END 2018-01-22 21:30 | DRG 463 ==
LOC: EMR 16:55 → 4E 16:56 → EDBEDREQ 22:11 → 4E 01-06 00:58
PROC: 0HBRXZZ Excision of Toe Nail, External Approach (ICD-10-PCS; principal; 2018-01-21)
PROC: 0HBRXZZ Excision of Toe Nail, External Approach (ICD-10-PCS; 2018-01-21)
PROC: 0HBRXZZ Excision of Toe Nail, External Approach (ICD-10-PCS; 2018-01-21)
PROC: 0HBRXZZ Excision of Toe Nail, External Approach (ICD-10-PCS; 2018-01-21)
PROC: 0HBRXZZ Excision of Toe Nail, External Approach (ICD-10-PCS; 2018-01-21)
PROC: 0HBRXZZ Excision of Toe Nail, External Approach (ICD-10-PCS; 2018-01-21)
PROC: 0HBRXZZ Excision of Toe Nail, External Approach (ICD-10-PCS; 2018-01-21)
PROC: 0HBRXZZ Excision of Toe Nail, External Approach (ICD-10-PCS; 2018-01-21)
PROC: 0HBRXZZ Excision of Toe Nail, External Approach (ICD-10-PCS; 2018-01-21)
DX: N13.6 Pyonephrosis (principal); N17.9 Acute kidney failure, unspecified; G93.40 Encephalopathy, unspecified; F03.91 Unspecified dementia, unspecified severity, with behavioral disturbance; E87.5 Hyperkalemia; B35.1 Tinea unguium; I12.9 Hypertensive chronic kidney disease with stage 1 through stage 4 chronic kidney disease, or unspecified chronic kidney disease; B18.2 Chronic viral hepatitis C; F32.9 Major depressive disorder, single episode, unspecified; J44.9 Chronic obstructive pulmonary disease, unspecified; I73.9 Peripheral vascular disease, unspecified; N18.2 Chronic kidney disease, stage 2 (mild); Z16.12 Extended spectrum beta lactamase (ESBL) resistance; B96.20 Unspecified Escherichia coli [E. coli] as the cause of diseases classified elsewhere; F41.9 Anxiety disorder, unspecified; Z79.82 Long term (current) use of aspirin; Z85.46 Personal history of malignant neoplasm of prostate; Z87.440 Personal history of urinary (tract) infections; Z89.422 Acquired absence of other left toe(s)
CPT/HCPCS: 36415; 71045; 74176; 80048; 80053; 80061; 80076; 81001; 81003; 82550; 82553; 82607; 82728; 82746; 82977; 83036; 83540; 83550; 83605; 83735; 83880; 84100; 84133; 84300; 84443; 84484; 84550; 85007; 85025; 86140; 87040; 87086; 87181; 89050; 93005; 93925; 94664; 99285

== ENCOUNTER 2018-04-29 15:04 | Inpatient (IN) | payer MEDICARE, OTHER ==
[~2018-04-29] VITALS: Ht 177.8 cm; Wt 64.9 kg
[~2018-04-29 15:04] MED LIST changes: +LOPRESSOR25 M1 ORAL; +SEROQUEL25 MG ORAL
[2018-04-29] MEDS ORDERED: Sodium Chloride 500ML 500 ML IV ONE (15:53)
--- NOTE | 2018-04-29 16:41 | Diagnostic Imaging Report ---
Indication: Dyspnea Comparison: 01/05/2018 A single view chest radiograph was obtained. Findings: Cardiomediastinal appearance is within normal limits for age. Pulmonary vascularity is appropriate. The diaphragmatic contour is smooth and costophrenic angles are sharp. No pleural effusions are identified. The bones are osteopenic. Impression: No acute findings
[2018-04-29] MEDS ORDERED: LORazepam Inj 2mg/ml 1ml IV ONE (16:45)
[2018-04-29] MEDS ORDERED: LORazepam Inj 2mg/ml 1ml IM ONE ×2 (16:45→19:45)
--- NOTE | 2018-04-29 16:57 | Diagnostic Imaging Report ---
Indication: Altered mental status Technique: Contiguous 5 mm thick transaxial imaging of the head obtained in a Siemens Sensation [address] scanner. Soft tissue and bone windows generated. Automatic Exposure Control was utilized. Total Dose length Product (DLP): 2259.[address] Dose Index Volume (CTDIvol): 70.38,70.38 mGy Comparison: 09/18/2014 Findings: There is moderate prominence of the ventricles, basal cisterns, and cerebral sulci consistent with atrophy. Moderate, nonspecific, white matter hypoattenuation is noted throughout the brain consistent with chronic small vessel disease. There is no midline shift, edema, acute hemorrhage, mass effect, or abnormal extra-axial fluid collections. Bones and extra osseous soft tissues are unremarkable. Impression: No acute intracranial bleed, mass effect or edema. Moderate atrophy of the brain. Evidence of chronic small vessel disease involving white matter tracts. The CT scanner at [facility] is accredited by the [employer] and the scans are performed using dose optimization techniques as appropriate to a performed exam including Automatic Exposure control.
[2018-04-29 17:14] VITALS: BP 120/89
[2018-04-29 18:23] LABS: ANION GAP 8 mmol/L (5-15); BLOOD UREA NITROGEN 44 mg/dL (7-18); CALCIUM 9.2 MG/DL (8.5-10.1); CARBON DIOXIDE 28 MMOL/L (21-32); CHLORIDE 112 MMOL/L (98-107); CREATININE 2.4 MG/DL (0.55-1.30); POTASSIUM 5.2 MMOL/L (3.5-5.1); SODIUM 148 MMOL/L (136-145)
[2018-04-29 18:26] LABS: BASOPHILS % (AUTO) 0.3 % (0.0-2.0); EOSINOPHILS % (AUTO) 1.9 % (0.0-3.0); HEMATOCRIT 40.6 % (42.0-52.0); LYMPHOCYTES % (AUTO) 38.6 % (20.0-45.0); MEAN CORPUSCULAR VOLUME 92 FL (80-99); MONOCYTES % (AUTO) 5.5 % (1.0-10.0); NEUTROPHILS % (AUTO) 53.8 % (45.0-75.0); PLATELET COUNT 163 K/UL (150-450); RED CELL DISTRIBUTION WIDTH 13.3 % (11.6-14.8); WHITE BLOOD COUNT 7.8 K/UL (4.8-10.8)
[2018-04-29 18:37] LABS: ALANINE AMINOTRANSFERASE 26 U/L (12-78); ALBUMIN 3.4 G/DL (3.4-5.0); ALBUMIN/GLOBULIN RATIO 0.6 (1.0-2.7); ALKALINE PHOSPHATASE 92 U/L (46-116); ASPARTATE AMINO TRANSFERASE 35 U/L (15-37); BILIRUBIN,TOTAL 0.5 MG/DL (0.2-1.0); CKMB 1.8 NG/ML (0.0-3.6); CREATINE KINASE 295 U/L (26-308)
[2018-04-29] MEDS ORDERED: Sodium Polystyrene Sulfonate Enema RECTAL ONE (18:45)
--- NOTE | 2018-04-29 18:54 | Emergency Room Report ---
History of Present Illness General Chief Complaint: General Complaint Source: Medical Record Present Illness HPI 67-year-old male presents ED for evaluation. Patient coming from long-term facility. at bedside states that patient has had increased falls recently. Appears more weak and is not eating. Patient has dementia at baseline area did patient showing no signs of distress upon arrival. No other aggravating relieving factors. No other associated symptoms Allergies: Uncoded Allergies: anesthesia (Allergy, Unknown, 07/04/14) Patient History Past Medical History: HTN, dementia Past Surgical History: none Pertinent Family History: none Social History: Denies: smoking, alcohol use, drug use Immunizations: UTD Reviewed Nursing Documentation: PMH: Agreed; PSxH: Agreed Nursing Documentation-PMH Hx Hypertension: Yes Hx Cancer: Yes - prostate Hx Gastrointestinal Problems: No Hx Neurological Problems: Yes - dementia Hx Cerebrovascular Accident: Yes Hx Dementia: Yes Hx Alzheimer's Disease: Yes Review of Systems All Other Systems: limited Physical Exam Vital Signs Date Time Temp Pulse Resp B/P (MAP) Pulse Ox O2 Delivery O2 Flow Rate FiO2 04/29/18 14:38 97.7 102 20 112/79 98 Room Air 97.7 Sp02 EP Interpretation: reviewed, normal General Appearance: no apparent distress, cachetic, thin Head: normocephalic Eyes: bilateral eye normal inspection, bilateral eye PERRL ENT: normal ENT inspection Neck: normal inspection Respiratory: chest non-tender, lungs clear, normal breath sounds, speaking full sentences Cardiovascular #1: regular rate, rhythm, no edema Gastrointestinal: normal bowel sounds, non tender, soft, non-distended, no guarding, no rebound Rectal: deferred Genitourinary: no CVA tenderness Musculoskeletal: normal inspection Neurologic: other - dementia Psychiatric: other - dementia Skin: normal inspection Lymphatic: normal inspection Medical Decision Making Diagnostic Impression: Primary Impression: ARF (acute renal failure) Qualified Codes: N17.9 - Acute kidney failure, unspecified Additional Impressions: Hyperkalemia Frequent falls Failure to thrive Qualified Codes: R62.7 - Adult failure to thrive ER Course Hospital Course 67-year-old male presents to ED with frequent falls, increased weakness, poor appetite Differential diagnoses include: AZ/unstable angina, arrythmia, dehydration, CVA/ TIA Clinical course Patient placed on stretcher. on iron erector. After initial history and physical I ordered labs, EKG, chest x-ray, IVFs, CT Brain labs reviewed- no leukocytosis, hemoglobin/hematocrit ok, K 5.2, BUN/Cr elevated , trop negative EKG-Sinus tachycardia, no acute ischemic changes interpreted by me Chest x-ray- no acute process CT brain-unremarkable Given Kayexalate. Given IV fluids. Case discussed with Dr. Mooney and he agreed to accept the patient to his service for further care and support I. I feel this is a highly complex case requiring extensive working including EKG/Rhythm strip, Xray/CT/US, Blood/urine lab work, repeat exams while in ED, and administration of strong opiates/narcotics for pain control, admission to hospital or close patient follow up. Diagnosis - arf, frequent falls, hyperkalemia, failure to thrive admitted to floor in serious condition Labs Test 04/29/18 18:00 White Blood Count 7.8 K/UL (4.8-10.8) Red Blood Count 4.40 M/UL (4.70-6.10) Hemoglobin 13.0 G/DL (14.2-18.0) Hematocrit 40.6 % (42.0-52.0) Mean Corpuscular Volume 92 FL (80-99) Mean Corpuscular Hemoglobin 29.5 PG (27.0-31.0) Mean Corpuscular Hemoglobin Concent 32.0 G/DL (32.0-36.0) Red Cell Distribution Width 13.3 % (11.6-14.8) Platelet Count 163 K/UL (150-450) Mean Platelet Volume 7.1 FL (6.5-10.1) Neutrophils (%) (Auto) 53.8 % (45.0-75.0) Lymphocytes (%) (Auto) 38.6 % (20.0-45.0) Monocytes (%) (Auto) 5.5 % (1.0-10.0) Eosinophils (%) (Auto) 1.9 % (0.0-3.0) Basophils (%) (Auto) 0.3 % (0.0-2.0) Sodium Level 148 MMOL/L (136-145) Potassium Level 5.2 MMOL/L (3.5-5.1) Chloride Level 112 MMOL/L (98-107) Carbon Dioxide Level 28 MMOL/L (21-32) Anion Gap 8 mmol/L (5-15) Blood Urea Nitrogen 44 mg/dL (7-18) Creatinine 2.4 MG/DL (0.55-1.30) Estimat Glomerular Filtration Rate 32.8 mL/min (>60) Glucose Level 90 MG/DL (74-106) Calcium Level 9.2 MG/DL (8.5-10.1) Total Bilirubin 0.5 MG/DL (0.2-1.0) Aspartate Amino Transf (AST/SGOT) 35 U/L (15-37) Alanine Aminotransferase (ALT/SGPT) 26 U/L (12-78) Alkaline Phosphatase 92 U/L (46-116) Total Creatine Kinase 295 U/L (26-308) Creatine Kinase MB 1.8 NG/ML (0.0-3.6) Creatine Kinase MB Relative Index 0.6 Troponin I 0.000 ng/mL (0.000-0.056) Total Protein 8.7 G/DL (6.4-8.2) Albumin 3.4 G/DL (3.4-5.0) Globulin 5.3 g/dL Albumin/Globulin Ratio 0.6 (1.0-2.7) EKG Diagnostic Results Rate: tachycardiac Rhythm: NSR ST Segments: no acute changes ASA given to the pt in ED: No Rhythm Strip Diag. Results EP Interpretation: yes Rhythm: NSR, no PVC's, no ectopy Chest X-Ray Diagnostic Results Chest X-Ray Diagnostic Results : Chest X-Ray Ordered: Yes # of Views/Limited/Complete: 1 View Indication: Other - weakness EP Interpretation: Yes Interpretation: no consolidation, no effusion, no pneumothorax Impression: No acute disease Electronically Signed by: Electronically signed by Tanner Mix MD CT/MRI/US Diagnostic Results CT/MRI/US Diagnostic Results : Imaging Test Ordered: CT Head Impression no acute process Last Vital Signs Date Time Temp Pulse Resp B/P (MAP) Pulse Ox O2 Delivery O2 Flow Rate FiO2 04/29/18 17:14 106 17 120/89 100 Room Air 04/29/18 14:38 97.7 97.7 Status: improved Disposition: ADMITTED INPATIENT Condition: Serious Referrals: German Mooney MD (PCP) Tanner Mix MD Apr 29, 2018 18:54
[2018-04-29] MEDS ORDERED: Sodium Polystyrene Sulfonate 15gm Powder ORAL ONE (19:15)
[2018-04-29] MEDS ORDERED: Miralax 17gm pkt ORAL PRN (19:30)
[2018-04-29] MEDS ORDERED: Zolpidem 5mg tab ORAL PRN (19:30)
[2018-04-29] MEDS ORDERED: Mylanta II UD 30ml ORAL PRN (19:30)
[2018-04-29] MEDS ORDERED: Haloperidol 1mg tab ORAL PRN (19:30)
[2018-04-29 19:44] LABS: CREATINE KINASE 304 U/L (26-308)
[2018-04-29] MEDS ORDERED: Haloperidol 5mg/ml Inj IM ONE (19:45)
[2018-04-29 20:34] VITALS: BP 90/70
[2018-04-29 22:15] VITALS: BP 111/75
[2018-04-29] MEDS: Metoprolol 25mg tab ORAL SCH (23:39)
[2018-04-29] MEDS: Tamsulosin 0.4mg cap ORAL SCH (23:39)
[2018-04-30] VITALS: BP 99/64
[2018-04-30 04:00] VITALS: BP 108/79
[2018-04-30 07:47] LABS: APPEARANCE,URINE TURBID; BILIRUBIN, URINE NEGATIVE (NEGATIVE); COLOR,URINE PALE YELLOW; GLUCOSE, URINE (UA) NEGATIVE (NEGATIVE); KETONES,URINE NEGATIVE (NEGATIVE); LEUKOCYTE ESTERASE ,URINE 3+ (NEGATIVE); NITRITE,URINE POSITIVE (NEGATIVE); PH,URINE 6 (4.5-8.0); PROTEIN,URINE 2+ (NEGATIVE); UROBILINOGEN,URINE NORMAL MG/DL (0.0-1.0)
[2018-04-30 08:00] VITALS: BP 98/64
[2018-04-30] MEDS: Morphine Sulfate 2mg/ml Inj IVP PRN ×3 (08:30→18:36)
[2018-04-30] MEDS: Metoprolol 25mg tab ORAL SCH ×2 (09:00→21:00)
[2018-04-30 09:27] LABS: HEMATOCRIT 37.2 % (42.0-52.0); HEMOGLOBIN 11.9 G/DL (14.2-18.0); MEAN CORPUSCULAR VOLUME 93 FL (80-99); PLATELET COUNT 168 K/UL (150-450); RED CELL DISTRIBUTION WIDTH 13.2 % (11.6-14.8); WHITE BLOOD COUNT 8.7 K/UL (4.8-10.8)
[2018-04-30 10:12] LABS: ALANINE AMINOTRANSFERASE 23 U/L (12-78); ALBUMIN 2.7 G/DL (3.4-5.0); ALBUMIN/GLOBULIN RATIO 0.6 (1.0-2.7); ALKALINE PHOSPHATASE 74 U/L (46-116); ANION GAP 7 mmol/L (5-15); ASPARTATE AMINO TRANSFERASE 34 U/L (15-37); BILIRUBIN,TOTAL 0.6 MG/DL (0.2-1.0); BLOOD UREA NITROGEN 34 mg/dL (7-18); CALCIUM 8.2 MG/DL (8.5-10.1); CARBON DIOXIDE 27 MMOL/L (21-32); CHLORIDE 110 MMOL/L (98-107); CHOLESTEROL 120 MG/DL (< 200); CREATININE 2.1 MG/DL (0.55-1.30); HDL CHOLESTEROL 54 MG/DL (40-60); POTASSIUM 3.8 MMOL/L (3.5-5.1); SODIUM 144 MMOL/L (136-145); TRIGLYCERIDES 40 MG/DL (30-150)
--- NOTE | 2018-04-30 10:49 | General Progress Note ---
Progress Note Progress Note [id number] FULL CONSULT DICTATED THANKS Pamela Davila MD Apr 30, 2018 10:49
[2018-04-30 12:00] VITALS: BP 98/58
--- NOTE | 2018-04-30 12:47 | Consultation ---
History of Present Illness General Date patient seen: Apr 30, 2018 Chief Complaint: General Complaint Present Illness HPI 67-year-old male with psychosis, dementia, HTN, CVA, COPD, [facility] , presented to ED for evaluation of increased weakness and dehyration. Patient coming from assisted facility. at bedside states that patient has had increased falls recently. Appears more weak and is not eating. No other aggravating relieving factors. No other associated symptoms. Pt was found to be in acute renal failure and was admitted for further treatment. Allergies: Uncoded Allergies: anesthesia (Allergy, Unknown, 07/04/14) Medication History Scheduled Ampicillin (Ampicillin Trihydrate), 500 MG ORAL Q6HR, (Reported) Aspirin (Ann Chewable), 81 MG PO DAILY, (Reported) Metoprolol Tartrate (Metoprolol Tartrate), 25 MG ORAL Q12HR Mirtazapine* (Remeron*), 15 MG ORAL BEDTIME, (Reported) Quetiapine Fumarate (Seroquel), 12.5 MG ORAL THREE TIMES A DAY, (Reported) Quetiapine Fumarate* (Seroquel*), 50 MG ORAL Q8HR Tamsulosin HCl (Flomax), 0.4 MG ORAL BEDTIME Scheduled PRN Chlorpromazine (Chlorpromazine HCl), 25 MG PO Q6HR PRN for Agitation, (Reported) Haloperidol* (Haldol*), 5 MG ORAL EVERY 4 HOURS PRN for Agitation, (Reported) Phenazopyridine Hcl* (Pyridium*), 100 MG ORAL DAILY PRN for Per rx protocol, ( Reported) Miscellaneous Medications Unable to Obtain Medications (Unable To Obtain Meds), (Reported) Patient History Healthcare decision maker AGUSTO GUTIÉRREZ Resuscitation status Full Code Advanced Directive on File Yes Past Medical/Surgical History Past Medical/Surgical History: (1) Dementia (2) Methadone maintenance therapy patient (3) Prostate cancer (4) CKD (chronic kidney disease) Review of Systems All Other Systems: negative except mentioned in HPI Physical Exam General Appearance: cachetic Lines, tubes and drains: peripheral HEENT: normocephalic, atraumatic Neck: non-tender, normal alignment Respiratory/Chest: chest wall non-tender, lungs clear Cardiovascular/Chest: normal peripheral pulses, regular rhythm Abdomen: normal bowel sounds, non tender Last 24 Hour Vital Signs Date Time Temp Pulse Resp B/P (MAP) Pulse Ox O2 Delivery O2 Flow Rate FiO2 04/30/18 12:00 97.7 60 18 98/58 (71) 100 97.7 04/30/18 09:50 Room Air 04/30/18 09:00 97.1 04/30/18 09:00 91 98/64 04/30/18 08:30 97.1 04/30/18 08:00 97.0 91 18 98/64 (75) 94 97.0 04/30/18 04:00 97.1 81 18 108/79 (89) 98 97.1 04/30/18 02:13 Room Air 04/30/18 00:00 97.5 84 18 99/64 (76) 96 97.5 04/29/18 23:39 105 114/69 04/29/18 22:15 98.2 109 20 111/75 (87) 94 98.2 04/29/18 21:48 97.8 78 14 90/70 100 Room Air 97.8 04/29/18 20:34 97.8 78 14 90/70 100 Room Air 97.8 04/29/18 17:14 106 17 120/89 100 Room Air 04/29/18 14:38 97.7 102 20 112/79 98 Room Air 97.7 Intake and Output 04/29/18 04/30/18 19:00 07:00 Intake Total 1170 ml Output Total 300 ml Balance 870 ml Intake Oral 120 ml IV Total 1050 ml Output Urine Total 300 ml # Bowel Movements 1 Laboratory Tests Test 04/29/18 18:00 04/30/18 07:10 04/30/18 07:50 White Blood Count 7.8 K/UL (4.8-10.8) 8.7 K/UL (4.8-10.8) Red Blood Count 4.40 M/UL (4.70-6.10) L 4.00 M/UL (4.70-6.10) L Hemoglobin 13.0 G/DL (14.2-18.0) L 11.9 G/DL (14.2-18.0) L Hematocrit 40.6 % (42.0-52.0) L 37.2 % (42.0-52.0) L Mean Corpuscular Volume 92 FL (80-99) 93 FL (80-99) Mean Corpuscular Hemoglobin 29.5 PG (27.0-31.0) 29.8 PG (27.0-31.0) Mean Corpuscular Hemoglobin Concent 32.0 G/DL (32.0-36.0) 32.0 G/DL (32.0-36.0) Red Cell Distribution Width 13.3 % (11.6-14.8) 13.2 % (11.6-14.8) Platelet Count 163 K/UL (150-450) 168 K/UL (150-450) Mean Platelet Volume 7.1 FL (6.5-10.1) 7.6 FL (6.5-10.1) Neutrophils (%) (Auto) 53.8 % (45.0-75.0) % (45.0-75.0) Lymphocytes (%) (Auto) 38.6 % (20.0-45.0) % (20.0-45.0) Monocytes (%) (Auto) 5.5 % (1.0-10.0) % (1.0-10.0) Eosinophils (%) (Auto) 1.9 % (0.0-3.0) % (0.0-3.0) Basophils (%) (Auto) 0.3 % (0.0-2.0) % (0.0-2.0) Sodium Level 148 MMOL/L (136-145) H 144 MMOL/L (136-145) Potassium Level 5.2 MMOL/L (3.5-5.1) H 3.8 MMOL/L (3.5-5.1) Chloride Level 112 MMOL/L (98-107) H 110 MMOL/L (98-107) H Carbon Dioxide Level 28 MMOL/L (21-32) 27 MMOL/L (21-32) Anion Gap 8 mmol/L (5-15) 7 mmol/L (5-15) Blood Urea Nitrogen 44 mg/dL (7-18) H 34 mg/dL (7-18) H Creatinine 2.4 MG/DL (0.55-1.30) H 2.1 MG/DL (0.55-1.30) H Estimat Glomerular Filtration Rate 32.8 mL/min (>60) 38.3 mL/min (>60) Glucose Level 90 MG/DL (74-106) 129 MG/DL (74-106) H Uric Acid 11.9 MG/DL (2.6-7.2) H Calcium Level 9.2 MG/DL (8.5-10.1) 8.2 MG/DL (8.5-10.1) L Total Bilirubin 0.5 MG/DL (0.2-1.0) 0.6 MG/DL (0.2-1.0) Aspartate Amino Transf (AST/SGOT) 35 U/L (15-37) 34 U/L (15-37) Alanine Aminotransferase (ALT/SGPT) 26 U/L (12-78) 23 U/L (12-78) Alkaline Phosphatase 92 U/L (46-116) 74 U/L (46-116) Total Creatine Kinase 304 U/L (26-308) Creatine Kinase MB 1.8 NG/ML (0.0-3.6) Creatine Kinase MB Relative Index 0.6 Troponin I 0.000 ng/mL (0.000-0.056) Total Protein 8.7 G/DL (6.4-8.2) H 6.9 G/DL (6.4-8.2) Albumin 3.4 G/DL (3.4-5.0) 2.7 G/DL (3.4-5.0) L Globulin 5.3 g/dL 4.2 g/dL Albumin/Globulin Ratio 0.6 (1.0-2.7) L 0.6 (1.0-2.7) L Urine Color Pale yellow Urine Appearance Turbid Urine pH 6 (4.5-8.0) Urine Specific [place] 1.010 (1.005-1.035) Urine Protein 2+ (NEGATIVE) H Urine Glucose (UA) Negative (NEGATIVE) Urine Ketones Negative (NEGATIVE) Urine Occult Blood 3+ (NEGATIVE) H Urine Nitrite Positive (NEGATIVE) H Urine Bilirubin Negative (NEGATIVE) Urine Urobilinogen Normal MG/DL (0.0-1.0) Urine Leukocyte Esterase 3+ (NEGATIVE) H Urine RBC 2-4 /HPF (0 - 0) H Urine WBC 30-40 /HPF (0 - 0) H Urine Squamous Epithelial Cells Few /LPF (NONE/OCC) Urine Bacteria Many /HPF (NONE) H Urine Eosinophils Rare Urine Random Sodium 53 mmol/L (20-110) Urine Potassium Timed 25 mmol/L (12-62) Differential Total Cells Counted 100 Neutrophils % (Manual) 40 % (45-75) L Lymphocytes % (Manual) 53 % (20-45) H Monocytes % (Manual) 4 % (1-10) Eosinophils % (Manual) 3 % (0-3) Basophils % (Manual) 0 % (0-2) Band Neutrophils 0 % (0-8) Platelet Estimate Adequate Platelet Morphology Normal Red Blood Cell Morphology Normal Triglycerides Level 40 MG/DL (30-150) Cholesterol Level 120 MG/DL (< 200) LDL Cholesterol 69 mg/dL (<100) HDL Cholesterol 54 MG/DL (40-60) Cholesterol/HDL Ratio 2.2 (3.3-4.4) L Thyroid Stimulating Hormone (TSH) 0.952 uiU/mL (0.358-3.740) Microbiology Date/Time Source Procedure Growth Status 04/29/18 18:30 Rectum Received Height (Feet): 5 Height (Inches): 10.00 Weight (Pounds): 140 Medications Current Medications Medications (Trade) Dose Ordered Sig/Lucie Route PRN Reason Start Time Stop Time Status Last Admin Dose Admin Acetaminophen (Tylenol) 650 mg Q4H PRN ORAL fever 04/29/18 19:30 05/29/18 19:29 Al Hydroxide/Mg Hydroxide (Mylanta II) 30 ml Q6H PRN ORAL dyspepsia 04/29/18 19:30 05/29/18 19:29 Dextrose 1,000 ml @ 150 mls/hr Q6H40M IV 04/29/18 19:30 05/29/18 19:29 04/30/18 09:12 Dextrose (Dextrose 50%) 25 ml STAT PRN IV Hypoglycemia 04/29/18 19:30 05/29/18 19:29 Dextrose (Dextrose 50%) 50 ml STAT PRN IV Hypoglycemia 04/29/18 19:45 05/29/18 19:44 Haloperidol (Haldol) 5 mg Q4H PRN ORAL Agitation 04/29/18 19:45 05/29/18 19:29 Lorazepam (Ativan 2mg/ml 1ml) 0.5 mg Q4H PRN IV For Anxiety 04/29/18 19:30 05/06/18 19:29 Metoprolol Tartrate (Lopressor) 25 mg Q12HR ORAL 04/29/18 21:00 05/29/18 20:59 04/29/18 23:39 Mirtazapine (Remeron) 15 mg BEDTIME ORAL 04/29/18 21:00 05/29/18 20:59 04/29/18 23:38 Morphine Sulfate (Morphine Sulfate) 1 mg Q4H PRN IVP For Pain 04/29/18 19:30 05/06/18 19:29 04/30/18 08:30 Ondansetron HCl (Zofran) 4 mg Q6H PRN IVP Nausea & Vomiting 04/29/18 19:30 05/29/18 19:29 Polyethylene Glycol (Miralax) 17 gm HSPRN PRN ORAL Constipation 04/29/18 19:30 05/29/18 19:29 Quetiapine Fumarate (SEROquel) 50 mg Q8HR ORAL 04/29/18 22:00 05/29/18 21:59 04/29/18 23:39 Tamsulosin HCl (Flomax) 0.4 mg BEDTIME ORAL 04/29/18 21:00 05/29/18 20:59 04/29/18 23:39 Zolpidem Tartrate (Ambien) 5 mg HSPRN PRN ORAL Insomnia 04/29/18 19:30 05/06/18 19:29 04/29/18 23:38 Assessment/Plan Problem List: (1) ATN (acute tubular necrosis) ICD Codes: N17.0 - Acute kidney failure with tubular necrosis SNOMED: 01909587 (2) Acute encephalopathy ICD Codes: G93.40 - Encephalopathy, unspecified SNOMED: 21740439, 106491877 (3) Dementia ICD Codes: F03.90 - Dementia SNOMED: 06390088 (4) Prostate cancer ICD Codes: C61 - Prostate cancer SNOMED: 629564931 (5) Paranoia ICD Codes: F22 - Delusional disorders SNOMED: 20205307 (6) Frequent falls ICD Codes: R29.6 - Repeated falls SNOMED: 502874930 Assessment/Plan iv hydration renal f/u pt/ot symptomatic treatment check electrolytes psych to see. German Mooney MD Apr 30, 2018 12:47
[2018-04-30 16:00] VITALS: BP 115/80
--- NOTE | 2018-04-30 17:32 | Consultation ---
History of Present Illness General Date patient seen: Apr 30, 2018 Chief Complaint: General Complaint Present Illness HPI 67 y/o M with hx of Alzheimer Dementia, psychosis, HTN, recurrent UTI, prostate CA, nephrolithiasis, chronic Hep C, hx IVDA, CVA, COPD, [facility] resident presents to EDOn 04/29 with increased weakness, poor appetite, dehydration, multiple falls recently. Patient was found to have HAMZAH Of note, patient was admitted here on 12/2017 wit R [place]. Has known chronic staghorn calculus and was treated for possible Infected stone/UTI. Uro evaluation at the time with no plan for surgical intervention Also admitted on Oct 2017 with gastroenteritis and possible enterococcal UTI s/ p Tx. Allergies: Uncoded Allergies: anesthesia (Allergy, Unknown, 07/04/14) Medication History Scheduled Ampicillin (Ampicillin Trihydrate), 500 MG ORAL Q6HR, (Reported) Aspirin (Ann Chewable), 81 MG PO DAILY, (Reported) Metoprolol Tartrate (Metoprolol Tartrate), 25 MG ORAL Q12HR Mirtazapine* (Remeron*), 15 MG ORAL BEDTIME, (Reported) Quetiapine Fumarate (Seroquel), 12.5 MG ORAL THREE TIMES A DAY, (Reported) Quetiapine Fumarate* (Seroquel*), 50 MG ORAL Q8HR Tamsulosin HCl (Flomax), 0.4 MG ORAL BEDTIME Scheduled PRN Chlorpromazine (Chlorpromazine HCl), 25 MG PO Q6HR PRN for Agitation, (Reported) Haloperidol* (Haldol*), 5 MG ORAL EVERY 4 HOURS PRN for Agitation, (Reported) Phenazopyridine Hcl* (Pyridium*), 100 MG ORAL DAILY PRN for Per rx protocol, ( Reported) Miscellaneous Medications Unable to Obtain Medications (Unable To Obtain Meds), (Reported) Patient History Healthcare decision maker AGUSTO GUTIÉRREZ Resuscitation status Full Code Advanced Directive on File Yes Patient History Narrative Pmhx: as above Shx: Denies: smoking, alcohol use, drug use Fhx: non contributory Review of Systems All Other Systems: negative except mentioned in HPI Physical Exam Physical Exam Narrative General Appearance: cachetic Lines, tubes and drains: peripheral HEENT: normocephalic, atraumatic Neck: non-tender, normal alignment Respiratory/Chest: chest wall non-tender, lungs clear Cardiovascular/Chest: normal peripheral pulses, regular rhythm Abdomen: normal bowel sounds, non tender Last 24 Hour Vital Signs Date Time Temp Pulse Resp B/P (MAP) Pulse Ox O2 Delivery O2 Flow Rate FiO2 04/30/18 16:00 96.3 76 18 115/80 (92) 100 96.3 04/30/18 13:49 97.7 04/30/18 13:19 97.7 04/30/18 12:00 97.7 60 18 98/58 (71) 100 97.7 04/30/18 09:50 Room Air 04/30/18 09:00 91 98/64 04/30/18 08:30 97.1 04/30/18 08:00 97.0 91 18 98/64 (75) 94 97.0 04/30/18 04:00 97.1 81 18 108/79 (89) 98 97.1 04/30/18 02:13 Room Air 04/30/18 00:00 97.5 84 18 99/64 (76) 96 97.5 04/29/18 23:39 105 114/69 04/29/18 22:15 98.2 109 20 111/75 (87) 94 98.2 04/29/18 21:48 97.8 78 14 90/70 100 Room Air 97.8 04/29/18 20:34 97.8 78 14 90/70 100 Room Air 97.8 Intake and Output 04/29/18 04/30/18 19:00 07:00 Intake Total 1170 ml Output Total 300 ml Balance 870 ml Intake Oral 120 ml IV Total 1050 ml Output Urine Total 300 ml # Bowel Movements 1 Laboratory Tests Test 04/29/18 18:00 04/30/18 07:10 04/30/18 07:50 White Blood Count 7.8 K/UL (4.8-10.8) 8.7 K/UL (4.8-10.8) Red Blood Count 4.40 M/UL (4.70-6.10) L 4.00 M/UL (4.70-6.10) L Hemoglobin 13.0 G/DL (14.2-18.0) L 11.9 G/DL (14.2-18.0) L Hematocrit 40.6 % (42.0-52.0) L 37.2 % (42.0-52.0) L Mean Corpuscular Volume 92 FL (80-99) 93 FL (80-99) Mean Corpuscular Hemoglobin 29.5 PG (27.0-31.0) 29.8 PG (27.0-31.0) Mean Corpuscular Hemoglobin Concent 32.0 G/DL (32.0-36.0) 32.0 G/DL (32.0-36.0) Red Cell Distribution Width 13.3 % (11.6-14.8) 13.2 % (11.6-14.8) Platelet Count 163 K/UL (150-450) 168 K/UL (150-450) Mean Platelet Volume 7.1 FL (6.5-10.1) 7.6 FL (6.5-10.1) Neutrophils (%) (Auto) 53.8 % (45.0-75.0) % (45.0-75.0) Lymphocytes (%) (Auto) 38.6 % (20.0-45.0) % (20.0-45.0) Monocytes (%) (Auto) 5.5 % (1.0-10.0) % (1.0-10.0) Eosinophils (%) (Auto) 1.9 % (0.0-3.0) % (0.0-3.0) Basophils (%) (Auto) 0.3 % (0.0-2.0) % (0.0-2.0) Sodium Level 148 MMOL/L (136-145) H 144 MMOL/L (136-145) Potassium Level 5.2 MMOL/L (3.5-5.1) H 3.8 MMOL/L (3.5-5.1) Chloride Level 112 MMOL/L (98-107) H 110 MMOL/L (98-107) H Carbon Dioxide Level 28 MMOL/L (21-32) 27 MMOL/L (21-32) Anion Gap 8 mmol/L (5-15) 7 mmol/L (5-15) Blood Urea Nitrogen 44 mg/dL (7-18) H 34 mg/dL (7-18) H Creatinine 2.4 MG/DL (0.55-1.30) H 2.1 MG/DL (0.55-1.30) H Estimat Glomerular Filtration Rate 32.8 mL/min (>60) 38.3 mL/min (>60) Glucose Level 90 MG/DL (74-106) 129 MG/DL (74-106) H Uric Acid 11.9 MG/DL (2.6-7.2) H Calcium Level 9.2 MG/DL (8.5-10.1) 8.2 MG/DL (8.5-10.1) L Total Bilirubin 0.5 MG/DL (0.2-1.0) 0.6 MG/DL (0.2-1.0) Aspartate Amino Transf (AST/SGOT) 35 U/L (15-37) 34 U/L (15-37) Alanine Aminotransferase (ALT/SGPT) 26 U/L (12-78) 23 U/L (12-78) Alkaline Phosphatase 92 U/L (46-116) 74 U/L (46-116) Total Creatine Kinase 304 U/L (26-308) Creatine Kinase MB 1.8 NG/ML (0.0-3.6) Creatine Kinase MB Relative Index 0.6 Troponin I 0.000 ng/mL (0.000-0.056) Total Protein 8.7 G/DL (6.4-8.2) H 6.9 G/DL (6.4-8.2) Albumin 3.4 G/DL (3.4-5.0) 2.7 G/DL (3.4-5.0) L Globulin 5.3 g/dL 4.2 g/dL Albumin/Globulin Ratio 0.6 (1.0-2.7) L 0.6 (1.0-2.7) L Urine Color Pale yellow Urine Appearance Turbid Urine pH 6 (4.5-8.0) Urine Specific [place] 1.010 (1.005-1.035) Urine Protein 2+ (NEGATIVE) H Urine Glucose (UA) Negative (NEGATIVE) Urine Ketones Negative (NEGATIVE) Urine Occult Blood 3+ (NEGATIVE) H Urine Nitrite Positive (NEGATIVE) H Urine Bilirubin Negative (NEGATIVE) Urine Urobilinogen Normal MG/DL (0.0-1.0) Urine Leukocyte Esterase 3+ (NEGATIVE) H Urine RBC 2-4 /HPF (0 - 0) H Urine WBC 30-40 /HPF (0 - 0) H Urine Squamous Epithelial Cells Few /LPF (NONE/OCC) Urine Bacteria Many /HPF (NONE) H Urine Eosinophils Rare Urine Random Sodium 53 mmol/L (20-110) Urine Potassium Timed 25 mmol/L (12-62) Differential Total Cells Counted 100 Neutrophils % (Manual) 40 % (45-75) L Lymphocytes % (Manual) 53 % (20-45) H Monocytes % (Manual) 4 % (1-10) Eosinophils % (Manual) 3 % (0-3) Basophils % (Manual) 0 % (0-2) Band Neutrophils 0 % (0-8) Platelet Estimate Adequate Platelet Morphology Normal Red Blood Cell Morphology Normal Triglycerides Level 40 MG/DL (30-150) Cholesterol Level 120 MG/DL (< 200) LDL Cholesterol 69 mg/dL (<100) HDL Cholesterol 54 MG/DL (40-60) Cholesterol/HDL Ratio 2.2 (3.3-4.4) L Free Prostate Specific Antigen Pending Percent Free Prostate Specific Ag Pending Prostate Specific Antigen Total Pending Thyroid Stimulating Hormone (TSH) 0.952 uiU/mL (0.358-3.740) Microbiology Date/Time Source Procedure Growth Status 04/29/18 18:30 Rectum Received Height (Feet): 5 Height (Inches): 10.00 Weight (Pounds): 140 Medications Current Medications Medications (Trade) Dose Ordered Sig/Lucie Route PRN Reason Start Time Stop Time Status Last Admin Dose Admin Acetaminophen (Tylenol) 650 mg Q4H PRN ORAL fever 04/29/18 19:30 05/29/18 19:29 Al Hydroxide/Mg Hydroxide (Mylanta II) 30 ml Q6H PRN ORAL dyspepsia 04/29/18 19:30 05/29/18 19:29 Dextrose 1,000 ml @ 150 mls/hr Q6H40M IV 04/29/18 19:30 05/29/18 19:29 04/30/18 17:01 Dextrose (Dextrose 50%) 25 ml STAT PRN IV Hypoglycemia 04/29/18 19:30 05/29/18 19:29 Dextrose (Dextrose 50%) 50 ml STAT PRN IV Hypoglycemia 04/29/18 19:45 05/29/18 19:44 Haloperidol (Haldol) 5 mg Q4H PRN ORAL Agitation 04/29/18 19:45 05/29/18 19:29 Lorazepam (Ativan 2mg/ml 1ml) 0.5 mg Q4H PRN IV For Anxiety 04/29/18 19:30 05/06/18 19:29 Metoprolol Tartrate (Lopressor) 25 mg Q12HR ORAL 04/29/18 21:00 05/29/18 20:59 04/29/18 23:39 Mirtazapine (Remeron) 15 mg BEDTIME ORAL 04/29/18 21:00 05/29/18 20:59 04/29/18 23:38 Morphine Sulfate (Morphine Sulfate) 1 mg Q4H PRN IVP For Pain 04/29/18 19:30 05/06/18 19:29 04/30/18 13:19 Ondansetron HCl (Zofran) 4 mg Q6H PRN IVP Nausea & Vomiting 04/29/18 19:30 05/29/18 19:29 Polyethylene Glycol (Miralax) 17 gm HSPRN PRN ORAL Constipation 04/29/18 19:30 05/29/18 19:29 Quetiapine Fumarate (SEROquel) 50 mg Q8HR ORAL 04/29/18 22:00 05/29/18 21:59 04/29/18 23:39 Tamsulosin HCl (Flomax) 0.4 mg BEDTIME ORAL 04/29/18 21:00 05/29/18 20:59 04/29/18 23:39 Zolpidem Tartrate (Ambien) 5 mg HSPRN PRN ORAL Insomnia 04/29/18 19:30 05/06/18 19:29 04/29/18 23:38 Assessment/Plan Assessment/Plan Abx: None Assessment: Dehydration Generalized weakness -CT head: No acute intracranial bleed, mass effect or edema. Moderate atrophy of the brain. Evidence of chronic small vessel disease involving white matter tracts. -CXR: no acute findings Pyuria -u/a wbc 30-40,nit +, leuk +3; ucx p Afebrile, no leukocytosis Hx of Recurrent UTI -01/2018: -u/a wbc 30-40, nit +, leuk +3; ucx >100K ESBL E.coli (S zozyn, nitrofurantoin, bactrim, ertapenem;R levo); repeat u/a 01/08 wbc tntc, nit+, leuk +3; ucx 50-60k E.fecalis (S vanco, amp; R levo) -10/2017: -u/a WBC TNTC- ucx >100k E. fecalis (S Vanco, amp), 30-40k mixed gram positive growth Chronic R ureterolithiasis and K staghorn calculus -CT abd/p 01/2018 : Distal right ureteral calculi, stable over multiple earlier studies dating back to 09/20/2014, again demonstrated. There is persistent right hydronephrosis and right renal atrophy. Nonobstructive right lower pole renal calculi are again demonstrated. Large left renal staghorn calculus, also present as far back as 2013. Mild right hydronephrosis but no ureteral calculi or hydroureter. Other nonobstructive left lower pole renal calculi are also evident. Gas bubbles within the left renal collecting system and bladder, markedly decreased from the previous 2016 exam. Uncertain as to whether these represent bladder instrumentation with reflux into the left renal collecting system, versus artifact due to infection with gas-forming organism. Correlate with clinical and laboratory findings. The bladder wall is also mildly thickened , unchanged from previously. Cystitis a possibility. Left renal cyst, also previously described. Cholelithiasis, new since prior study. Left basilar dependent pulmonary parenchymal atelectasis. Evidence of COPD, with hyperinflation and a single small bulla. Evidence of prior prostatectomy Chronic Hep C infection - hEp C VL 42K 10/2017 -Hep A Imm, Hep B Ab neg, HIV Neg History of recurrent urinary tract infection. History of osteomyelitis of the second left toe and distal phalanx. History of prostate cancer. History of renal stone and CKD. Dementia HTN CVA hx IVDA Plan: -Continue to monitor off abx unless febrile, increased WBC -01/06 SP Bactrim DS 1 tab bid #10/10 for possible ESBL UTI and PO Amoxicillin #5/5 for enterococcal coverage -01/10 SP Ertapenem #4 -01/06 SP IV Vancomycin #2 -01/05 SP Ceftriaxone x1 -11/12/17 SP PO ampicillin #14 -f/u cx -Monitor CBC/CMP, temperatures -aspiration precautions Thank you for this consultation. Will continue to follow along with you. Discussed with Janet Saucedo M.D. Apr 30, 2018 17:32
[2018-04-30 19:34] VITALS: BP 94/63
--- NOTE | 2018-04-30 20:17 | History & Physical ---
History and Physical History & Physicial Dictated for Int med-Dr Wright no. [id number]. Alton Marshall MD Apr 30, 2018 20:17
--- NOTE | 2018-04-30 21:02 | Consultation ---
DATE OF CONSULTATION: 04/30/2018 NEPHROLOGY CONSULTATION CONSULTING PHYSICIAN: Pamela Davila M.D. REFERRING PHYSICIAN: German Mooney M.D. REASON FOR CONSULTATION: Acute on chronic renal failure. HISTORY OF PRESENT ILLNESS: The patient is a 67-year-old male with past medical history significant for history of chronic kidney disease, history of bilateral nephrolithiasis, history of pyelonephritis with superimposed kidney stone and infection, history of hypertension, chronic obstructive pulmonary disease, dementia, agitation, history of prostate CA, history of left foot amputation, and hyperkalemia, who was basically transferred to [facility] and in the ER for evaluation of increasing fall and altered mental status. The patient was present in the ER and found to have worsening of the kidney function. He was consequently admitted with a diagnoses of acute renal failure, hyperkalemia, recurrent fall, and failure to thrive. I was called for management of renal disease and electrolyte imbalance. Unfortunately, the patient, at this point, is altered and was not able to provide any history for me, so most of my history is obtained through reviewing the old chart and information from the emergency room department. PAST MEDICAL HISTORY: 1. History of acute pyelonephritis. 2. History of acute encephalopathy. 3. History of acute renal failure. 4. History of chronic kidney disease. 5. History of hypertension. 6. Chronic obstructive pulmonary disease. 7. Dementia. 8. Nephrolithiasis with a right-sided hydronephrosis. 9. History of hepatitis C. 10. History of intravenous drug abuse. 11. History of prostate CA. 12. History of toe gangrene. 13. History of hyperkalemia. 14. History of major depression disorder. 15. History of anxiety. MEDICATIONS: 1. Seroquel 50 mg p.o. daily. 2. Metoprolol 25 mg p.o. daily. 3. Remeron 50 mg p.o. daily. 4. Flomax 0.4 mg p.o. daily. 5. Haloperidol 5 mg p.o. daily. 6. Tylenol 650 mg q.6 h. p.r.n. pain. 7. MiraLAX 17 g p.o. daily. 8. Lorazepam 0.5 mg p.o. daily. 9. Ambien 5 mg p.o. daily. FAMILY HISTORY: Noncontributory. SOCIAL HISTORY: He lives in a detention. There is no current history of tobacco, alcohol, or drug use. REVIEW OF SYSTEMS: Unable to obtain due to the patient's condition and mental status. PHYSICAL EXAMINATION: VITAL SIGNS: The patient has a temperature of 97, blood pressure 108/79, and pulse of 81. HEAD AND NECK: No JVP. No LAD. No thyromegaly. Extraocular movement is intact. Pupils are reactive to light and accommodation. LUNGS: Clear to auscultation. CARDIAC: Regular rate and rhythm. S1 and S2. No murmur. No rub. ABDOMEN: Soft, nontender, and nondistended. No organomegaly. EXTREMITIES: No edema. No clubbing. No cyanosis. LABORATORY AND DIAGNOSTIC DATA: The patient has sodium 148, potassium 5.2, chloride 112, bicarb 28, BUN of 44, and creatinine of 2.4. AST of 35, ALT of 26, and alkaline phosphatase of 92. Total protein of 6.9. Albumin of 2.7. CBC revealed WBC count of 8.7, hemoglobin of 11.9, hematocrit of 37, and platelet count of 168,000. UA revealed a specific gravity of 1.010, protein 2+, blood 3+, nitrite positive, bacteria many, wbc 30 to 40, and rbc 2 to 4. ASSESSMENT: 1. Hypernatremia. 2. Hyperkalemia. 3. Acute renal failure. 4. Chronic kidney disease. 5. Recurrent pyelonephritis complicated with nephrolithiasis and right hydronephrosis. 6. Failure to thrive. PLAN: Plan for the patient is to obtain UA. Check the random urine protein-creatinine ratio to calculate the proteinuria. Check the urine sodium and creatinine to calculate fractional excretion of sodium. Ultrasound of the kidney to evaluate hydronephrosis and nephrolithiasis. IV fluids. Low-potassium diet. Broad-spectrum antibiotic. Monitor renal function and electrolytes closely. Again, I would like to thank, Dr. Mooney, for allowing me to participate in the care of this patient. Pamela Davila M.D. DR: YASH JOB#: [id number] CC:
[2018-04-30] MEDS: Tamsulosin 0.4mg cap ORAL SCH (21:24)
[2018-05-01 00:34] VITALS: BP 105/68
--- NOTE | 2018-05-01 00:46 | History and Physical Report ---
DATE OF ADMISSION: 04/29/2018 CHIEF COMPLAINT: The patient is a 67-year-old male who presents with chief complaint of generalized weakness and frequent falls. HISTORY OF PRESENT ILLNESS: The patient is resident of [facility]. According to patient's , the patient has been more weak than usual. The patient has been falling frequently. The patient was evaluated at [facility]. The patient was found to have urinary tract infection. The patient admitted with generalized weakness and urinary tract infection. REVIEW OF SYSTEMS: Unable to assess secondary to patient's mental status. PAST MEDICAL HISTORY: Significant. 1. Hypertension. 2. Cerebrovascular disease. 3. History of cerebrovascular accident. 4. Alzheimer's dementia. 5. History of hepatitis C. 6. Prostate cancer. 7. History of osteomyelitis of the left second toe. PAST SURGICAL HISTORY: Significant for amputation of left second toe. CURRENT MEDICATIONS: 1. Aspirin 81 mg p.o. daily. 2. Chlorpromazine 25 mg p.o. q.6 h. p.r.n. 3. Haldol 5 mg p.o. q.4 hours p.r.n. 4. Metoprolol 25 mg p.o. twice daily. 5. Remeron 15 mg p.o. at bedtime. 6. Seroquel 12.5 mg p.o. three times daily. 7. Flomax 0.4 mg p.o. at bedtime. ALLERGIES: To "anesthesia" SOCIAL HISTORY: The patient is and lives at [facility]. The patient denies tobacco or alcohol use. PHYSICAL EXAMINATION: VITAL SIGNS: Temperature 97.7, respirations 18, pulse 60, blood pressure 98/58. GENERAL: The patient is thin-appearing male, in no apparent distress. HEENT: Pupils are equal and responsive to light and accommodation. Extraocular movements intact. NECK: Supple without lymphadenopathy. CHEST: Lungs are clear to auscultation bilaterally without wheezes or rales. CARDIOVASCULAR: Regular rhythm and rate. S1 and S2 are normal without murmurs, rubs, or gallops. ABDOMEN: Soft, nontender, and nondistended. Positive bowel sounds. No evidence of hepatosplenomegaly. Currently no rebound or guarding noted. EXTREMITIES: Negative for clubbing, cyanosis, or edema. RECTAL/GENITAL: Refused. NEUROLOGIC: Cranial nerves II through XII are grossly intact without focal deficits. LABORATORY STUDIES: WBC 7.8, hemoglobin 13.3, hematocrit 40.6, platelets 163,000. Sodium 148, potassium 5.2, chloride 112, CO2 28, BUN 44, creatinine 2.4, glucose 90. Urinalysis showed 2+ protein, 3+ occult blood, positive nitrite, 3+ leukocyte esterase with 30 to 40 wbc's. ASSESSMENT: This is a 67-year-old male with: 1. Renal failure. 2. Urinary tract infection. 3. Generalized weakness. 4. . 5. Alzheimer's dementia. 6. Hepatitis C. 7. History of prostate cancer. 8. Cerebrovascular disease. TREATMENT: 1. Renal failure. This is probably secondary to urinary tract infection. 2. Generalized weakness, probably secondary to urinary tract infection. 3. Urinary tract infection. Urine culture is pending. The patient has been started empirically on ceftriaxone. We will await urine culture. 4. Hypertension. The patient is currently normotensive off medication. 5. Alzheimer's dementia. 6. History of hepatitis C. 7. History of prostate cancer. 8. Cerebrovascular disease. Alton Marshall M.D. DR: Gabriel JOB#: [id number] CC:
[2018-05-01 03:54] VITALS: BP 99/65
[2018-05-01 07:16] LABS: HEMATOCRIT 37.2 % (42.0-52.0); HEMOGLOBIN 12.2 G/DL (14.2-18.0); MEAN CORPUSCULAR VOLUME 91 FL (80-99); PLATELET COUNT 148 K/UL (150-450); RED BLOOD COUNT 4.08 M/UL (4.70-6.10); RED CELL DISTRIBUTION WIDTH 12.5 % (11.6-14.8); WHITE BLOOD COUNT 10.3 K/UL (4.8-10.8)
[2018-05-01 07:21] LABS: ANION GAP 6 mmol/L (5-15); BLOOD UREA NITROGEN 26 mg/dL (7-18); CALCIUM 8.2 MG/DL (8.5-10.1); CARBON DIOXIDE 28 MMOL/L (21-32); CHLORIDE 106 MMOL/L (98-107); POTASSIUM 3.4 MMOL/L (3.5-5.1); SODIUM 140 MMOL/L (136-145)
[2018-05-01 07:23] LABS: INR 1.1 (0.9-1.1)
[2018-05-01 07:49] LABS: % IRON SATURATION 40 % (15-50); IRON 104 ug/dL (50-175); TOTAL IRON BINDING CAPACITY 261 ug/dL (250-450)
[2018-05-01 08:00] VITALS: BP 110/67
[2018-05-01 08:01] LABS: LACTATE DEHYDROGENASE 252 U/L (81-234)
[2018-05-01] MEDS: Metoprolol 25mg tab ORAL SCH ×2 (08:29→21:00)
[2018-05-01] MEDS: cefTRIAXone 2 GM in D5W 110 ML IVPB SCH (09:53)
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
--- NOTE | 2018-05-01 10:35 | General Progress Note ---
Assessment/Plan Status: stable, progressing Assessment/Plan Dementia with behavioral dist encephalopathy seroquel prn haldol prn remeron Subjective Date patient seen: May 01, 2018 Neurologic/Psychiatric: Reports: anxiety, depressed, emotional problems Allergies: Uncoded Allergies: anesthesia (Allergy, Unknown, 07/04/14) Subjective in restraint calmer however has episodes of agitation Objective Last 24 Hour Vital Signs Date Time Temp Pulse Resp B/P (MAP) Pulse Ox O2 Delivery O2 Flow Rate FiO2 05/01/18 08:29 103 110/67 05/01/18 08:00 97.8 103 20 110/67 (81) 93 97.8 103 05/01/18 03:54 97.9 68 20 99/65 (76) 99 97.9 68 05/01/18 00:34 97.9 66 20 105/68 (80) 97 97.9 66 04/30/18 21:00 Room Air 04/30/18 21:00 78 94/63 04/30/18 19:34 98.2 78 20 94/63 (73) 97 98.2 78 04/30/18 19:06 96.3 04/30/18 18:36 96.3 04/30/18 16:00 96.3 76 18 115/80 (92) 100 96.3 04/30/18 13:19 97.7 04/30/18 12:00 97.7 60 18 98/58 (71) 100 97.7 Intake and Output 04/30/18 05/01/18 19:00 07:00 Intake Total 2130 ml 1860 ml Balance 2130 ml 1860 ml Intake Oral 480 ml 360 ml IV Total 1650 ml 1500 ml # Voids 4 3 Laboratory Tests 05/01/18 05:45: White Blood Count 10.3, Red Blood Count 4.08L, Hemoglobin 12.2L, Hematocrit 37.2L, Mean Corpuscular Volume 91, Mean Corpuscular Hemoglobin 29.9, Mean Corpuscular Hemoglobin Concent 32.7, Red Cell Distribution Width 12.5, Platelet Count 148L, Mean Platelet Volume 7.2, Neutrophils (%) (Auto) , Lymphocytes (%) ( Auto) , Monocytes (%) (Auto) , Eosinophils (%) (Auto) , Basophils (%) (Auto) , Differential Total Cells Counted 100, Neutrophils % (Manual) 34L, Lymphocytes % (Manual) 59H, Monocytes % (Manual) 7, Eosinophils % (Manual) 0, Basophils % ( Manual) 0, Band Neutrophils 0, Platelet Estimate DecreasedL, Platelet Morphology Normal, Macrocytosis 1+, Tear Drop Cells 1+, Farideh Cells 1+, Erythrocyte Sedimentation Rate 30H, Reticulocyte Count [Pending], Prothrombin Time 11.1, Prothromb Time International Ratio 1.1, Activated Partial Thromboplast Time 24, Sodium Level 140, Potassium Level 3.4L, Chloride Level 106 , Carbon Dioxide Level 28, Anion Gap 6, Blood Urea Nitrogen 26H, Creatinine 2.0H , Estimat Glomerular Filtration Rate 40.5, Glucose Level 99, Calcium Level 8.2L , Iron Level 104, Total Iron Binding Capacity 261, Percent Iron Saturation 40, Unsaturated Iron Binding 157, Lactate Dehydrogenase 252H, Carcinoembryonic Antigen [Pending], Vitamin B12 Level 627, Folate 8.4L Height (Feet): 5 Height (Inches): 10.00 Weight (Pounds): 140 General Appearance: no apparent distress, lethargic, confused, agitated Mckenna Bermudez MD May 01, 2018 10:35
--- NOTE | 2018-05-01 12:03 | Pulmonology Progress Note ---
Assessment/Plan Problems: (1) ATN (acute tubular necrosis) (2) Acute encephalopathy (3) Dementia (4) Prostate cancer (5) Paranoia (6) Frequent falls Assessment/Plan imroving check electrolytes all reviewed pt/ot doesn't want the previous intermediate Subjective ROS Limited/Unobtainable: No Constitutional: Reports: no symptoms HEENT: Repors: no symptoms Respiratory: Reports: no symptoms Allergies: Uncoded Allergies: anesthesia (Allergy, Unknown, 07/04/14) Objective Last 24 Hour Vital Signs Date Time Temp Pulse Resp B/P (MAP) Pulse Ox O2 Delivery O2 Flow Rate FiO2 05/01/18 08:45 Room Air 05/01/18 08:29 103 110/67 05/01/18 08:00 97.8 103 20 110/67 (81) 93 97.8 103 05/01/18 03:54 97.9 68 20 99/65 (76) 99 97.9 68 05/01/18 00:34 97.9 66 20 105/68 (80) 97 97.9 66 04/30/18 21:00 Room Air 04/30/18 21:00 78 94/63 04/30/18 19:34 98.2 78 20 94/63 (73) 97 98.2 78 04/30/18 19:06 96.3 04/30/18 18:36 96.3 04/30/18 16:00 96.3 76 18 115/80 (92) 100 96.3 04/30/18 13:19 97.7 Intake and Output 04/30/18 05/01/18 19:00 07:00 Intake Total 2130 ml 1860 ml Balance 2130 ml 1860 ml Intake Oral 480 ml 360 ml IV Total 1650 ml 1500 ml # Voids 4 3 General Appearance: WD/WN HEENT: normocephalic, atraumatic Respiratory/Chest: chest wall non-tender, lungs clear Cardiovascular: normal peripheral pulses, normal rate Abdomen: normal bowel sounds, soft, non tender Extremities: no cyanosis, no clubbing Neurologic/Psychiatric: 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 grossly normal, normal mood/affect Microbiology Date/Time Source Procedure Growth Status 04/30/18 07:10 Urine,Clean Catch Urine Culture - Preliminary Gram Negative Bacillus 1 Resulted 04/29/18 18:30 Rectum Received Laboratory Tests 05/01/18 05:45: White Blood Count 10.3, Red Blood Count 4.08L, Hemoglobin 12.2L, Hematocrit 37.2L, Mean Corpuscular Volume 91, Mean Corpuscular Hemoglobin 29.9, Mean Corpuscular Hemoglobin Concent 32.7, Red Cell Distribution Width 12.5, Platelet Count 148L, Mean Platelet Volume 7.2, Neutrophils (%) (Auto) , Lymphocytes (%) ( Auto) , Monocytes (%) (Auto) , Eosinophils (%) (Auto) , Basophils (%) (Auto) , Differential Total Cells Counted 100, Neutrophils % (Manual) 34L, Lymphocytes % (Manual) 59H, Monocytes % (Manual) 7, Eosinophils % (Manual) 0, Basophils % ( Manual) 0, Band Neutrophils 0, Platelet Estimate DecreasedL, Platelet Morphology Normal, Macrocytosis 1+, Tear Drop Cells 1+, [place] Cells 1+, Erythrocyte Sedimentation Rate 30H, Reticulocyte Count 0.3, Prothrombin Time 11.1, Prothromb Time International Ratio 1.1, Activated Partial Thromboplast Time 24, Sodium Level 140, Potassium Level 3.4L, Chloride Level 106, Carbon Dioxide Level 28, Anion Gap 6, Blood Urea Nitrogen 26H, Creatinine 2.0H, Estimat Glomerular Filtration Rate 40.5, Glucose Level 99, Calcium Level 8.2L, Iron Level 104, Total Iron Binding Capacity 261, Percent Iron Saturation 40, Unsaturated Iron Binding 157, Lactate Dehydrogenase 252H, Carcinoembryonic Antigen [Pending], Vitamin B12 Level 627, Folate 8.4L Current Medications Medications (Trade) Dose Ordered Sig/Lucie Route PRN Reason Start Time Stop Time Status Last Admin Dose Admin Acetaminophen (Tylenol) 650 mg Q4H PRN ORAL fever 04/29/18 19:30 05/29/18 19:29 Al Hydroxide/Mg Hydroxide (Mylanta II) 30 ml Q6H PRN ORAL dyspepsia 04/29/18 19:30 05/29/18 19:29 Ceftriaxone Sodium 2 gm/ Dextrose 110 ml @ 220 mls/hr DAILY IVPB 05/01/18 09:00 05/08/18 08:59 05/01/18 09:53 Dextrose 1,000 ml @ 150 mls/hr Q6H40M IV 04/29/18 19:30 05/29/18 19:29 05/01/18 05:35 Dextrose (Dextrose 50%) 25 ml STAT PRN IV Hypoglycemia 04/29/18 19:30 05/29/18 19:29 Dextrose (Dextrose 50%) 50 ml STAT PRN IV Hypoglycemia 04/29/18 19:45 05/29/18 19:44 Haloperidol (Haldol) 5 mg Q4H PRN ORAL Agitation 04/29/18 19:45 05/29/18 19:29 Lorazepam (Ativan 2mg/ml 1ml) 0.5 mg Q4H PRN IV For Anxiety 04/29/18 19:30 05/06/18 19:29 Metoprolol Tartrate (Lopressor) 25 mg Q12HR ORAL 04/29/18 21:00 05/29/18 20:59 05/01/18 08:29 Mirtazapine (Remeron) 15 mg BEDTIME ORAL 04/29/18 21:00 05/29/18 20:59 04/30/18 21:24 Morphine Sulfate (Morphine Sulfate) 1 mg Q4H PRN IVP For Pain 04/29/18 19:30 05/06/18 19:29 04/30/18 18:36 Ondansetron HCl (Zofran) 4 mg Q6H PRN IVP Nausea & Vomiting 04/29/18 19:30 05/29/18 19:29 Polyethylene Glycol (Miralax) 17 gm HSPRN PRN ORAL Constipation 04/29/18 19:30 05/29/18 19:29 Potassium Chloride (K-Dur) 40 meq ONCE GT 05/01/18 11:30 05/01/18 12:30 Quetiapine Fumarate (SEROquel) 50 mg Q8HR ORAL 04/29/18 22:00 05/29/18 21:59 05/01/18 06:15 Tamsulosin HCl (Flomax) 0.4 mg BEDTIME ORAL 04/29/18 21:00 05/29/18 20:59 04/30/18 21:24 Zolpidem Tartrate (Ambien) 5 mg HSPRN PRN ORAL Insomnia 04/29/18 19:30 05/06/18 19:29 04/29/18 23:38 German Mooney MD May 01, 2018 12:03
[2018-05-01 12:05] VITALS: BP 115/65
--- NOTE | 2018-05-01 12:55 | Nephrology Progress Note ---
Assessment/Plan Assessment 1. Hypernatremia. 2. Hyperkalemia. 3. Acute renal failure. 4. Chronic kidney disease. 5. Recurrent pyelonephritis complicated with nephrolithiasis and right hydronephrosis. 6. Failure to thrive. Plan plan to continue current iv monitoring renal function avoid NSIAD check pre-albumin Subjective ROS Limited/Unobtainable: Yes Constitutional: Reports: no symptoms HEENT: Reports: no symptoms Genitourinary: Reports: no symptoms Neurologic/Psychiatric: Reports: no symptoms Objective Objective Last 24 Hour Vital Signs Date Time Temp Pulse Resp B/P (MAP) Pulse Ox O2 Delivery O2 Flow Rate FiO2 05/01/18 12:05 98.2 101 20 115/65 (82) 95 98.2 05/01/18 08:45 Room Air 05/01/18 08:29 103 110/67 05/01/18 08:00 97.8 103 20 110/67 (81) 93 97.8 103 05/01/18 03:54 97.9 68 20 99/65 (76) 99 97.9 68 05/01/18 00:34 97.9 66 20 105/68 (80) 97 97.9 66 04/30/18 21:00 Room Air 04/30/18 21:00 78 94/63 04/30/18 19:34 98.2 78 20 94/63 (73) 97 98.2 78 04/30/18 19:06 96.3 04/30/18 18:36 96.3 04/30/18 16:00 96.3 76 18 115/80 (92) 100 96.3 04/30/18 13:19 97.7 Intake and Output 04/30/18 05/01/18 19:00 07:00 Intake Total 2130 ml 1860 ml Balance 2130 ml 1860 ml Intake Oral 480 ml 360 ml IV Total 1650 ml 1500 ml # Voids 4 3 Laboratory Tests 05/01/18 05:45: White Blood Count 10.3, Red Blood Count 4.08L, Hemoglobin 12.2L, Hematocrit 37.2L, Mean Corpuscular Volume 91, Mean Corpuscular Hemoglobin 29.9, Mean Corpuscular Hemoglobin Concent 32.7, Red Cell Distribution Width 12.5, Platelet Count 148L, Mean Platelet Volume 7.2, Neutrophils (%) (Auto) , Lymphocytes (%) ( Auto) , Monocytes (%) (Auto) , Eosinophils (%) (Auto) , Basophils (%) (Auto) , Differential Total Cells Counted 100, Neutrophils % (Manual) 34L, Lymphocytes % (Manual) 59H, Monocytes % (Manual) 7, Eosinophils % (Manual) 0, Basophils % ( Manual) 0, Band Neutrophils 0, Platelet Estimate DecreasedL, Platelet Morphology Normal, Macrocytosis 1+, Tear Drop Cells 1+, Far[place]h Cells 1+, Erythrocyte Sedimentation Rate 30H, Reticulocyte Count 0.3, Prothrombin Time 11.1, Prothromb Time International Ratio 1.1, Activated Partial Thromboplast Time 24, Sodium Level 140, Potassium Level 3.4L, Chloride Level 106, Carbon Dioxide Level 28, Anion Gap 6, Blood Urea Nitrogen 26H, Creatinine 2.0H, Estimat Glomerular Filtration Rate 40.5, Glucose Level 99, Calcium Level 8.2L, Iron Level 104, Total Iron Binding Capacity 261, Percent Iron Saturation 40, Unsaturated Iron Binding 157, Lactate Dehydrogenase 252H, Carcinoembryonic Antigen [Pending], Vitamin B12 Level 627, Folate 8.4L Height (Feet): 5 Height (Inches): 10.00 Weight (Pounds): 140 Objective HEAD AND NECK: No JVP. No LAD. No thyromegaly. Extraocular movement is intact. Pupils are reactive to light and accommodation. LUNGS: Clear to auscultation. CARDIAC: Regular rate and rhythm. S1 and S2. No murmur. No rub. ABDOMEN: Soft, nontender, and nondistended. No organomegaly. EXTREMITIES: No edema. No clubbing. No cyanosis. Pamela Davila MD May 01, 2018 12:55
[2018-05-01 16:00] VITALS: BP 110/65
--- NOTE | 2018-05-01 19:12 | Infectious Diseases Prog Note ---
Assessment/Plan Assessment/Plan Abx: None Assessment: Dehydration Generalized weakness -CT head: No acute intracranial bleed, mass effect or edema. Moderate atrophy of the brain. Evidence of chronic small vessel disease involving white matter tracts. -CXR: no acute findings Pyuria, ?UTI -u/a wbc 30-40,nit +, leuk +3; ucx >100k GNRs Afebrile, no leukocytosis Hx of Recurrent UTI -01/2018: -u/a wbc 30-40, nit +, leuk +3; ucx >100K ESBL E.coli (S zozyn, nitrofurantoin, bactrim, ertapenem;R levo); repeat u/a 01/08 wbc tntc, nit+, leuk +3; ucx 50-60k E.fecalis (S vanco, amp; R levo) -10/2017: -u/a WBC TNTC- ucx >100k E. fecalis (S Vanco, amp), 30-40k mixed gram positive growth Chronic R ureterolithiasis and K staghorn calculus -CT abd/p 01/2018 : Distal right ureteral calculi, stable over multiple earlier studies dating back to 09/20/2014, again demonstrated. There is persistent right hydronephrosis and right renal atrophy. Nonobstructive right lower pole renal calculi are again demonstrated. Large left renal staghorn calculus, also present as far back as 2013. Mild right hydronephrosis but no ureteral calculi or hydroureter. Other nonobstructive left lower pole renal calculi are also evident. Gas bubbles within the left renal collecting system and bladder, markedly decreased from the previous 2016 exam. Uncertain as to whether these represent bladder instrumentation with reflux into the left renal collecting system, versus artifact due to infection with gas-forming organism. Correlate with clinical and laboratory findings. The bladder wall is also mildly thickened , unchanged from previously. Cystitis a possibility. Left renal cyst, also previously described. Cholelithiasis, new since prior study. Left basilar dependent pulmonary parenchymal atelectasis. Evidence of COPD, with hyperinflation and a single small bulla. Evidence of prior prostatectomy Chronic Hep C infection - hEp C VL 42K 10/2017 -Hep A Imm, Hep B Ab neg, HIV Neg History of recurrent urinary tract infection. History of osteomyelitis of the second left toe and distal phalanx. History of prostate cancer. History of renal stone and CKD. Dementia HTN CVA hx IVDA Plan: -Continue empiric CEftriaxone#1 for now pending urien culture -01/06 SP Bactrim DS 1 tab bid #07/29 for possible ESBL UTI and PO Amoxicillin #5/5 for enterococcal coverage -01/10 SP Ertapenem #4 -01/06 SP IV Vancomycin #2 -01/05 SP Ceftriaxone x1 -11/12/17 SP PO ampicillin #14 -f/u cx -Monitor CBC/CMP, temperatures -aspiration precautions Thank you for this consultation. Will continue to follow along with you. Discussed with RN. Subjective Allergies: Uncoded Allergies: anesthesia (Allergy, Unknown, 07/04/14) Subjective afebrile no leukocytosis Objective Vital Signs Last 24 Hour Vital Signs Date Time Temp Pulse Resp B/P (MAP) Pulse Ox O2 Delivery O2 Flow Rate FiO2 05/01/18 16:00 98.0 79 20 110/65 (80) 95 98.0 05/01/18 12:05 98.2 101 20 115/65 (82) 95 98.2 05/01/18 08:45 Room Air 05/01/18 08:29 103 110/67 05/01/18 08:00 97.8 103 20 110/67 (81) 93 97.8 103 05/01/18 03:54 97.9 68 20 99/65 (76) 99 97.9 68 05/01/18 00:34 97.9 66 20 105/68 (80) 97 97.9 66 04/30/18 21:00 Room Air 04/30/18 21:00 78 94/63 04/30/18 19:34 98.2 78 20 94/63 (73) 97 98.2 78 Height (Feet): 5 Height (Inches): 10.00 Weight (Pounds): 140 Microbiology Date/Time Source Procedure Growth Status 04/30/18 07:10 Urine,Clean Catch Urine Culture - Preliminary Gram Negative Bacillus 1 Resulted 04/29/18 18:30 Rectum - Preliminary Resulted Laboratory Tests Test 05/01/18 05:45 White Blood Count 10.3 K/UL (4.8-10.8) Red Blood Count 4.08 M/UL (4.70-6.10) L Hemoglobin 12.2 G/DL (14.2-18.0) L Hematocrit 37.2 % (42.0-52.0) L Mean Corpuscular Volume 91 FL (80-99) Mean Corpuscular Hemoglobin 29.9 PG (27.0-31.0) Mean Corpuscular Hemoglobin Concent 32.7 G/DL (32.0-36.0) Red Cell Distribution Width 12.5 % (11.6-14.8) Platelet Count 148 K/UL (150-450) L Mean Platelet Volume 7.2 FL (6.5-10.1) Neutrophils (%) (Auto) % (45.0-75.0) Lymphocytes (%) (Auto) % (20.0-45.0) Monocytes (%) (Auto) % (1.0-10.0) Eosinophils (%) (Auto) % (0.0-3.0) Basophils (%) (Auto) % (0.0-2.0) Differential Total Cells Counted 100 Neutrophils % (Manual) 34 % (45-75) L Lymphocytes % (Manual) 59 % (20-45) H Monocytes % (Manual) 7 % (1-10) Eosinophils % (Manual) 0 % (0-3) Basophils % (Manual) 0 % (0-2) Band Neutrophils 0 % (0-8) Other Cell Type Pathologist comment Platelet Estimate Decreased L Platelet Morphology Normal Macrocytosis 1+ Tear Drop Cells 1+ Farideh Cells 1+ Erythrocyte Sedimentation Rate 30 MM/HR (0-20) H Reticulocyte Count 0.3 % (0.0-2.0) Prothrombin Time 11.1 SEC (9.30-11.50) Prothromb Time International Ratio 1.1 (0.9-1.1) Activated Partial Thromboplast Time 24 SEC (23-33) Sodium Level 140 MMOL/L (136-145) Potassium Level 3.4 MMOL/L (3.5-5.1) L Chloride Level 106 MMOL/L (98-107) Carbon Dioxide Level 28 MMOL/L (21-32) Anion Gap 6 mmol/L (5-15) Blood Urea Nitrogen 26 mg/dL (7-18) H Creatinine 2.0 MG/DL (0.55-1.30) H Estimat Glomerular Filtration Rate 40.5 mL/min (>60) Glucose Level 99 MG/DL (74-106) Calcium Level 8.2 MG/DL (8.5-10.1) L Iron Level 104 ug/dL (50-175) Total Iron Binding Capacity 261 ug/dL (250-450) Percent Iron Saturation 40 % (15-50) Unsaturated Iron Binding 157 ug/dL (112-346) Lactate Dehydrogenase 252 U/L (81-234) H Carcinoembryonic Antigen Pending Vitamin B12 Level 627 PG/ML (193-986) Folate 8.4 NG/ML (8.6-58.9) L Current Medications Medications (Trade) Dose Ordered Sig/Lucie Route PRN Reason Start Time Stop Time Status Last Admin Dose Admin Acetaminophen (Tylenol) 650 mg Q4H PRN ORAL fever 04/29/18 19:30 05/29/18 19:29 Al Hydroxide/Mg Hydroxide (Mylanta II) 30 ml Q6H PRN ORAL dyspepsia 04/29/18 19:30 05/29/18 19:29 Ceftriaxone Sodium 2 gm/ Dextrose 110 ml @ 220 mls/hr DAILY IVPB 05/01/18 09:00 05/08/18 08:59 05/01/18 09:53 Dextrose 1,000 ml @ 150 mls/hr Q6H40M IV 04/29/18 19:30 05/29/18 19:29 05/01/18 17:35 Dextrose (Dextrose 50%) 25 ml STAT PRN IV Hypoglycemia 04/29/18 19:30 05/29/18 19:29 Dextrose (Dextrose 50%) 50 ml STAT PRN IV Hypoglycemia 04/29/18 19:45 05/29/18 19:44 Haloperidol (Haldol) 5 mg Q4H PRN ORAL Agitation 04/29/18 19:45 05/29/18 19:29 Lorazepam (Ativan 2mg/ml 1ml) 0.5 mg Q4H PRN IV For Anxiety 04/29/18 19:30 05/06/18 19:29 Metoprolol Tartrate (Lopressor) 25 mg Q12HR ORAL 04/29/18 21:00 05/29/18 20:59 05/01/18 08:29 Mirtazapine (Remeron) 15 mg BEDTIME ORAL 04/29/18 21:00 05/29/18 20:59 7/12/18 21:24 Morphine Sulfate (Morphine Sulfate) 1 mg Q4H PRN IVP For Pain 04/29/18 19:30 05/06/18 19:29 04/30/18 18:36 Ondansetron HCl (Zofran) 4 mg Q6H PRN IVP Nausea & Vomiting 04/29/18 19:30 05/29/18 19:29 Polyethylene Glycol (Miralax) 17 gm HSPRN PRN ORAL Constipation 04/29/18 19:30 05/29/18 19:29 Quetiapine Fumarate (SEROquel) 50 mg Q8HR ORAL 04/29/18 22:00 05/29/18 21:59 05/01/18 15:13 Tamsulosin HCl (Flomax) 0.4 mg BEDTIME ORAL 04/29/18 21:00 05/29/18 20:59 04/30/18 21:24 Zolpidem Tartrate (Ambien) 5 mg HSPRN PRN ORAL Insomnia 04/29/18 19:30 05/06/18 19:29 04/29/18 23:38 Janet Rowland M.D. May 01, 2018 19:12
[2018-05-01 19:13] VITALS: BP 91/52
--- NOTE | 2018-05-01 19:42 | Internal Med Progress Note ---
Subjective Date of Service: May 01, 2018 Physician Name Alton Marshall Attending Physician Robin Wright MD Current Medications Medications (Trade) Dose Ordered Sig/Lucie Route PRN Reason Start Time Stop Time Status Last Admin Dose Admin Acetaminophen (Tylenol) 650 mg Q4H PRN ORAL fever 04/29/18 19:30 05/29/18 19:29 Al Hydroxide/Mg Hydroxide (Mylanta II) 30 ml Q6H PRN ORAL dyspepsia 04/29/18 19:30 05/29/18 19:29 Ceftriaxone Sodium 2 gm/ Dextrose 110 ml @ 220 mls/hr DAILY IVPB 05/01/18 09:00 05/08/18 08:59 05/01/18 09:53 Dextrose 1,000 ml @ 150 mls/hr Q6H40M IV 04/29/18 19:30 05/29/18 19:29 05/01/18 17:35 Dextrose (Dextrose 50%) 25 ml STAT PRN IV Hypoglycemia 04/29/18 19:30 05/29/18 19:29 Dextrose (Dextrose 50%) 50 ml STAT PRN IV Hypoglycemia 04/29/18 19:45 05/29/18 19:44 Haloperidol (Haldol) 5 mg Q4H PRN ORAL Agitation 04/29/18 19:45 05/29/18 19:29 Lorazepam (Ativan 2mg/ml 1ml) 0.5 mg Q4H PRN IV For Anxiety 04/29/18 19:30 05/06/18 19:29 Metoprolol Tartrate (Lopressor) 25 mg Q12HR ORAL 04/29/18 21:00 05/29/18 20:59 05/01/18 08:29 Mirtazapine (Remeron) 15 mg BEDTIME ORAL 04/29/18 21:00 05/29/18 20:59 04/30/18 21:24 Morphine Sulfate (Morphine Sulfate) 1 mg Q4H PRN IVP For Pain 04/29/18 19:30 05/06/18 19:29 04/30/18 18:36 Ondansetron HCl (Zofran) 4 mg Q6H PRN IVP Nausea & Vomiting 04/29/18 19:30 05/29/18 19:29 Polyethylene Glycol (Miralax) 17 gm HSPRN PRN ORAL Constipation 04/29/18 19:30 05/29/18 19:29 Quetiapine Fumarate (SEROquel) 50 mg Q8HR ORAL 04/29/18 22:00 05/29/18 21:59 05/01/18 15:13 Tamsulosin HCl (Flomax) 0.4 mg BEDTIME ORAL 04/29/18 21:00 05/29/18 20:59 04/30/18 21:24 Zolpidem Tartrate (Ambien) 5 mg HSPRN PRN ORAL Insomnia 04/29/18 19:30 05/06/18 19:29 04/29/18 23:38 Allergies: Uncoded Allergies: anesthesia (Allergy, Unknown, 07/04/14) ROS Limited/Unobtainable: No Constitutional: Reports: no symptoms HEENT: Reports: no symptoms Cardiovascular: Reports: no symptoms Respiratory: Reports: no symptoms Gastrointestinal/Abdominal: Reports: no symptoms Genitourinary: Reports: no symptoms Neurologic/Psychiatric: Reports: no symptoms Subjective 67 YO M admitted for generalized weakness. Cover for Int Paul-Dr Wright Objective Last Vital Signs Date Time Temp Pulse Resp B/P (MAP) Pulse Ox O2 Delivery O2 Flow Rate FiO2 05/01/18 19:13 96.0 107 20 91/52 (65) 94 96.0 107 05/01/18 08:45 Room Air General Appearance: alert, mild distress, thin EENT: PERRL/EOMI, normal ENT inspection Neck: non-tender, normal alignment, supple, normal inspection Cardiovascular: normal peripheral pulses, normal rate, regular rhythm, no gallop/murmur, no JVD Respiratory/Chest: chest wall non-tender, lungs clear, normal breath sounds, no respiratory distress, no accessory muscle use Abdomen: normal bowel sounds, non tender, soft, no organomegaly, no mass Extremities: normal range of motion Neurologic: gag writer II-XII grossly normal, no motor/sensory deficits Skin: normal pigmentation, warm/dry Laboratory Tests Test 05/01/18 05:45 White Blood Count 10.3 K/UL (4.8-10.8) Red Blood Count 4.08 M/UL (4.70-6.10) L Hemoglobin 12.2 G/DL (14.2-18.0) L Hematocrit 37.2 % (42.0-52.0) L Mean Corpuscular Volume 91 FL (80-99) Mean Corpuscular Hemoglobin 29.9 PG (27.0-31.0) Mean Corpuscular Hemoglobin Concent 32.7 G/DL (32.0-36.0) Red Cell Distribution Width 12.5 % (11.6-14.8) Platelet Count 148 K/UL (150-450) L Mean Platelet Volume 7.2 FL (6.5-10.1) Neutrophils (%) (Auto) % (45.0-75.0) Lymphocytes (%) (Auto) % (20.0-45.0) Monocytes (%) (Auto) % (1.0-10.0) Eosinophils (%) (Auto) % (0.0-3.0) Basophils (%) (Auto) % (0.0-2.0) Differential Total Cells Counted 100 Neutrophils % (Manual) 34 % (45-75) L Lymphocytes % (Manual) 59 % (20-45) H Monocytes % (Manual) 7 % (1-10) Eosinophils % (Manual) 0 % (0-3) Basophils % (Manual) 0 % (0-2) Band Neutrophils 0 % (0-8) Other Cell Type Pathologist comment Platelet Estimate Decreased L Platelet Morphology Normal Macrocytosis 1+ Tear Drop Cells 1+ [place] Cells 1+ Erythrocyte Sedimentation Rate 30 MM/HR (0-20) H Reticulocyte Count 0.3 % (0.0-2.0) Prothrombin Time 11.1 SEC (9.30-11.50) Prothromb Time International Ratio 1.1 (0.9-1.1) Activated Partial Thromboplast Time 24 SEC (23-33) Sodium Level 140 MMOL/L (136-145) Potassium Level 3.4 MMOL/L (3.5-5.1) L Chloride Level 106 MMOL/L (98-107) Carbon Dioxide Level 28 MMOL/L (21-32) Anion Gap 6 mmol/L (5-15) Blood Urea Nitrogen 26 mg/dL (7-18) H Creatinine 2.0 MG/DL (0.55-1.30) H Estimat Glomerular Filtration Rate 40.5 mL/min (>60) Glucose Level 99 MG/DL (74-106) Calcium Level 8.2 MG/DL (8.5-10.1) L Iron Level 104 ug/dL (50-175) Total Iron Binding Capacity 261 ug/dL (250-450) Percent Iron Saturation 40 % (15-50) Unsaturated Iron Binding 157 ug/dL (112-346) Lactate Dehydrogenase 252 U/L (81-234) H Carcinoembryonic Antigen Pending Vitamin B12 Level 627 PG/ML (193-986) Folate 8.4 NG/ML (8.6-58.9) L Microbiology Date/Time Source Procedure Growth Status 04/30/18 07:10 Urine,Clean Catch Urine Culture - Preliminary Gram Negative Bacillus 1 Resulted 04/29/18 18:30 Rectum - Preliminary Resulted Intake and Output 04/30/18 05/01/18 19:00 07:00 Intake Total 2130 ml 1860 ml Balance 2130 ml 1860 ml Intake Oral 480 ml 360 ml IV Total 1650 ml 1500 ml # Voids 4 3 Assessment/Plan Problem List: (1) Renal failure Assessment & Plan: See nephrology note. (2) HTN (hypertension) Assessment & Plan: Continue metoprolol (3) Hepatitis C (4) Cerebral vascular disease (5) UTI (urinary tract infection) Assessment & Plan: Gram neg cristina. Await ID and sensitivity. Continue ceftriaxone for now. (6) Weakness (7) Prostate cancer Status: not improved Alton Marshall MD May 01, 2018 19:42
[2018-05-01] MEDS: Tamsulosin 0.4mg cap ORAL SCH (21:01)
[2018-05-02] VITALS (8 sets, daily range): BP systolic 93–124; BP diastolic 50–75
[2018-05-02] MEDS: LORazepam Inj 2mg/ml 1ml IV PRN (04:13)
[2018-05-02 07:08] LABS: ANION GAP 7 mmol/L (5-15); BLOOD UREA NITROGEN 21 mg/dL (7-18); CALCIUM 8.5 MG/DL (8.5-10.1); CARBON DIOXIDE 25 MMOL/L (21-32); CHLORIDE 107 MMOL/L (98-107); CREATININE 1.9 MG/DL (0.55-1.30); POTASSIUM 3.4 MMOL/L (3.5-5.1); SODIUM 139 MMOL/L (136-145)
--- NOTE | 2018-05-02 07:45 | Pulmonology Progress Note ---
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 creat trending down psychiatry seen and evaluated, diagnosed with dementia with behavioral disturbances RO and ST provided by psych psychiatric medication regimen blood pressure management with beta michaela and optimize further as needed. PT/OT fall precautions swallow evaluation Lipid panel within normal limits No ASA, given history of frequent falls pain management bowel regimen supportive care discussed with , now considering transfer back to [facility] rehab will repeat swallow eval and diet eval on Friday am per lost weight on pureed diet and can eat soft diet case discussed and evaluated by supervising physician case discussed and evaluated by supervising physician Subjective Allergies: Uncoded Allergies: anesthesia (Allergy, Unknown, 07/04/14) Subjective creat trending down urine cx + E coli ESBL afebrile no leuk Objective Last 24 Hour Vital Signs Date Time Temp Pulse Resp B/P (MAP) Pulse Ox O2 Delivery O2 Flow Rate FiO2 05/02/18 03:47 96.5 91 20 109/50 (69) 98 96.5 91 05/02/18 00:22 97.9 85 20 117/66 (83) 91 97.9 85 05/01/18 21:00 Room Air 05/01/18 21:00 91 93/52 05/01/18 19:13 96.0 107 20 91/52 (65) 94 96.0 107 05/01/18 16:00 98.0 79 20 110/65 (80) 95 98.0 05/01/18 12:05 98.2 101 20 115/65 (82) 95 98.2 05/01/18 08:45 Room Air 05/01/18 08:29 103 110/67 05/01/18 08:00 97.8 103 20 110/67 (81) 93 97.8 103 Intake and Output 05/01/18 05/02/18 19:00 07:00 Intake Total 1870 ml 1630 ml Balance 1870 ml 1630 ml Intake Oral 180 ml IV Total 1870 ml 1450 ml # Voids 2 4 # Bowel Movements 2 1 HEENT: normocephalic, atraumatic, anicteric, mucous membranes moist, PERRL Respiratory/Chest: lungs clear, no respiratory distress, no accessory muscle use Cardiovascular: normal peripheral pulses, normal rate Abdomen: normal bowel sounds, soft, non tender Extremities: no edema Neurologic/Psychiatric: alert, responsive Musculoskeletal: normal muscle bulk Microbiology Date/Time Source Procedure Growth Status 04/29/18 18:30 Nasal Nares MRSA Culture - Final NO METHICILLIN RESISTANT STAPH AUREUS... Complete 04/30/18 07:10 Urine,Clean Catch Urine Culture - Final Escherichia Coli - Esbl Complete 04/29/18 18:30 Rectum VRE Culture - Final Enterococcus Faecalis - Vre Complete 04/29/18 18:30 Rectum - Final NO CARBAPENEM-RESISTANT ENTEROBACTERI... Complete Laboratory Tests 05/02/18 06:00: White Blood Count [Pending], Red Blood Count [Pending], Hemoglobin [Pending], Hematocrit [Pending], Mean Corpuscular Volume [Pending], Mean Corpuscular Hemoglobin [Pending], Mean Corpuscular Hemoglobin Concent [Pending], Red Cell Distribution Width [Pending], Platelet Count [Pending], Mean Platelet Volume [ Pending], Neutrophils (%) (Auto) [Pending], Lymphocytes (%) (Auto) [Pending], Monocytes (%) (Auto) [Pending], Eosinophils (%) (Auto) [Pending], Basophils (%) (Auto) [Pending], Sodium Level 139, Potassium Level 3.4L, Chloride Level 107, Carbon Dioxide Level 25, Anion Gap 7, Blood Urea Nitrogen 21H, Creatinine 1.9H, Estimat Glomerular Filtration Rate 42.9, Glucose Level 144H, Calcium Level 8.5 Current Medications Medications (Trade) Dose Ordered Sig/Lucie Route PRN Reason Start Time Stop Time Status Last Admin Dose Admin Acetaminophen (Tylenol) 650 mg Q4H PRN ORAL fever 04/29/18 19:30 05/29/18 19:29 Al Hydroxide/Mg Hydroxide (Mylanta II) 30 ml Q6H PRN ORAL dyspepsia 04/29/18 19:30 05/29/18 19:29 Ceftriaxone Sodium 2 gm/ Dextrose 110 ml @ 220 mls/hr DAILY IVPB 05/01/18 09:00 05/08/18 08:59 05/01/18 09:53 Dextrose 1,000 ml @ 150 mls/hr Q6H40M IV 04/29/18 19:30 05/29/18 19:29 05/02/18 01:45 Dextrose (Dextrose 50%) 25 ml STAT PRN IV Hypoglycemia 04/29/18 19:30 05/29/18 19:29 Dextrose (Dextrose 50%) 50 ml STAT PRN IV Hypoglycemia 04/29/18 19:45 05/29/18 19:44 Haloperidol (Haldol) 5 mg Q4H PRN ORAL Agitation 04/29/18 19:45 05/29/18 19:29 Lorazepam (Ativan 2mg/ml 1ml) 0.5 mg Q4H PRN IV For Anxiety 04/29/18 19:30 05/06/18 19:29 05/02/18 04:13 Metoprolol Tartrate (Lopressor) 25 mg Q12HR ORAL 04/29/18 21:00 05/29/18 20:59 05/01/18 08:29 Mirtazapine (Remeron) 15 mg BEDTIME ORAL 04/29/18 21:00 05/29/18 20:59 05/01/18 21:02 Morphine Sulfate (Morphine Sulfate) 1 mg Q4H PRN IVP For Pain 04/29/18 19:30 05/06/18 19:29 04/30/18 18:36 Ondansetron HCl (Zofran) 4 mg Q6H PRN IVP Nausea & Vomiting 04/29/18 19:30 05/29/18 19:29 Polyethylene Glycol (Miralax) 17 gm HSPRN PRN ORAL Constipation 04/29/18 19:30 05/29/18 19:29 Quetiapine Fumarate (SEROquel) 50 mg Q8HR ORAL 04/29/18 22:00 05/29/18 21:59 05/01/18 21:52 Tamsulosin HCl (Flomax) 0.4 mg BEDTIME ORAL 04/29/18 21:00 05/29/18 20:59 05/01/18 21:01 Zolpidem Tartrate (Ambien) 5 mg HSPRN PRN ORAL Insomnia 04/29/18 19:30 05/06/18 19:29 04/29/18 23:38 Baylee Montero NP May 02, 2018 07:45
[2018-05-02 08:13] LABS: BASOPHILS % (AUTO) 0.3 % (0.0-2.0); EOSINOPHILS % (AUTO) 1.6 % (0.0-3.0); HEMATOCRIT 36.7 % (42.0-52.0); HEMOGLOBIN 12.1 G/DL (14.2-18.0); LYMPHOCYTES % (AUTO) 25.6 % (20.0-45.0); MEAN CORPUSCULAR VOLUME 91 FL (80-99); MONOCYTES % (AUTO) 8.3 % (1.0-10.0); NEUTROPHILS % (AUTO) 64.2 % (45.0-75.0); PLATELET COUNT 174 K/UL (150-450); RED BLOOD COUNT 4.04 M/UL (4.70-6.10); RED CELL DISTRIBUTION WIDTH 12.3 % (11.6-14.8); WHITE BLOOD COUNT 8.6 K/UL (4.8-10.8)
[2018-05-02] MEDS: Metoprolol 25mg tab ORAL SCH ×2 (09:00→21:20)
[2018-05-02] MEDS: cefTRIAXone 2 GM in D5W 110 ML IVPB SCH (10:01)
--- NOTE | 2018-05-02 12:41 | Infectious Diseases Prog Note ---
Assessment/Plan Assessment/Plan Assessment: Pyuria, ?UTI -u/a wbc 30-40,nit +, leuk +3; ucx >100k ESBL Ecoli Afebrile No leukocytosis Hx of Recurrent UTI -01/2018: -u/a wbc 30-40, nit +, leuk +3; ucx >100K ESBL E.coli (S zozyn, nitrofurantoin, bactrim, ertapenem;R levo); repeat u/a 01/08 wbc tntc, nit+, leuk +3; ucx 50-60k E.fecalis (S vanco, amp; R levo) -10/2017: -u/a WBC TNTC- ucx >100k E. fecalis (S Vanco, amp), 30-40k mixed gram positive growth Chronic R ureterolithiasis and K staghorn calculus -CT abd/p 01/2018 : Distal right ureteral calculi, stable over multiple earlier studies dating back to 09/20/2014, again demonstrated. There is persistent right hydronephrosis and right renal atrophy. Nonobstructive right lower pole renal calculi are again demonstrated. Large left renal staghorn calculus, also present as far back as 2013. Mild right hydronephrosis but no ureteral calculi or hydroureter. Other nonobstructive left lower pole renal calculi are also evident. Gas bubbles within the left renal collecting system and bladder, markedly decreased from the previous 2016 exam. Uncertain as to whether these represent bladder instrumentation with reflux into the left renal collecting system, versus artifact due to infection with gas-forming organism. Correlate with clinical and laboratory findings. The bladder wall is also mildly thickened , unchanged from previously. Cystitis a possibility. Left renal cyst, also previously described. Cholelithiasis, new since prior study. Left basilar dependent pulmonary parenchymal atelectasis. Evidence of COPD, with hyperinflation and a single small bulla. Evidence of prior prostatectomy Chronic Hep C infection - hEp C VL 42K 10/2017 -Hep A Imm, Hep B Ab neg, HIV Neg History of recurrent urinary tract infection. History of osteomyelitis of the second left toe and distal phalanx. Dehydration / HAMZAH improving Generalized weakness -CT head: No acute intracranial bleed, mass effect or edema. Moderate atrophy of the brain. Evidence of chronic small vessel disease involving white matter tracts. History of prostate cancer. History of renal stone and CKD. Dementia HTN CVA hx IVDA Plan: -Continue IV zosyn # 1 - 05/02 Sp Ceftriaxone d# 3 -01/06 SP Bactrim DS 1 tab bid #07/29 for possible ESBL UTI and PO Amoxicillin #5/5 for enterococcal coverage -01/10 SP Ertapenem #4 -01/06 SP IV Vancomycin #2 -01/05 SP Ceftriaxone x1 -11/12/17 SP PO ampicillin #14 -f/u cx -Monitor CBC/CMP, temperatures -aspiration precautions Subjective Allergies: Uncoded Allergies: anesthesia (Allergy, Unknown, 07/04/14) Subjective Afebrile Objective Vital Signs Last 24 Hour Vital Signs Date Time Temp Pulse Resp B/P (MAP) Pulse Ox O2 Delivery O2 Flow Rate FiO2 05/02/18 09:00 93 93/65 05/02/18 09:00 Room Air 05/02/18 08:00 98.1 93 17 93/65 (74) 94 98.1 05/02/18 03:47 96.5 91 20 109/50 (69) 98 96.5 91 05/02/18 00:22 97.9 85 20 117/66 (83) 91 97.9 85 05/01/18 21:00 Room Air 05/01/18 21:00 91 93/52 05/01/18 19:13 96.0 107 20 91/52 (65) 94 96.0 107 05/01/18 16:00 98.0 79 20 110/65 (80) 95 98.0 Height (Feet): 5 Height (Inches): 10.00 Weight (Pounds): 140 HEENT: anicteric Respiratory/Chest: no respiratory distress Cardiovascular: regularly irregular Abdomen: non distended Microbiology Date/Time Source Procedure Growth Status 04/29/18 18:30 Nasal Nares MRSA Culture - Final NO METHICILLIN RESISTANT STAPH AUREUS... Complete 04/30/18 07:10 Urine,Clean Catch Urine Culture - Final Escherichia Coli - Esbl Complete 04/29/18 18:30 Rectum VRE Culture - Final Enterococcus Faecalis - Vre Complete 04/29/18 18:30 Rectum - Final NO CARBAPENEM-RESISTANT ENTEROBACTERI... Complete Laboratory Tests Test 05/02/18 06:00 White Blood Count 8.6 K/UL (4.8-10.8) Red Blood Count 4.04 M/UL (4.70-6.10) L Hemoglobin 12.1 G/DL (14.2-18.0) L Hematocrit 36.7 % (42.0-52.0) L Mean Corpuscular Volume 91 FL (80-99) Mean Corpuscular Hemoglobin 30.0 PG (27.0-31.0) Mean Corpuscular Hemoglobin Concent 33.1 G/DL (32.0-36.0) Red Cell Distribution Width 12.3 % (11.6-14.8) Platelet Count 174 K/UL (150-450) Mean Platelet Volume 7.6 FL (6.5-10.1) Neutrophils (%) (Auto) 64.2 % (45.0-75.0) Lymphocytes (%) (Auto) 25.6 % (20.0-45.0) Monocytes (%) (Auto) 8.3 % (1.0-10.0) Eosinophils (%) (Auto) 1.6 % (0.0-3.0) Basophils (%) (Auto) 0.3 % (0.0-2.0) Sodium Level 139 MMOL/L (136-145) Potassium Level 3.4 MMOL/L (3.5-5.1) L Chloride Level 107 MMOL/L (98-107) Carbon Dioxide Level 25 MMOL/L (21-32) Anion Gap 7 mmol/L (5-15) Blood Urea Nitrogen 21 mg/dL (7-18) H Creatinine 1.9 MG/DL (0.55-1.30) H Estimat Glomerular Filtration Rate 42.9 mL/min (>60) Glucose Level 144 MG/DL (74-106) H Calcium Level 8.5 MG/DL (8.5-10.1) Current Medications Medications (Trade) Dose Ordered Sig/Lucie Route PRN Reason Start Time Stop Time Status Last Admin Dose Admin Acetaminophen (Tylenol) 650 mg Q4H PRN ORAL fever 04/29/18 19:30 05/29/18 19:29 Al Hydroxide/Mg Hydroxide (Mylanta II) 30 ml Q6H PRN ORAL dyspepsia 04/29/18 19:30 05/29/18 19:29 Dextrose 1,000 ml @ 150 mls/hr Q6H40M IV 04/29/18 19:30 05/29/18 19:29 05/02/18 09:40 Dextrose (Dextrose 50%) 25 ml STAT PRN IV Hypoglycemia 04/29/18 19:30 05/29/18 19:29 Dextrose (Dextrose 50%) 50 ml STAT PRN IV Hypoglycemia 04/29/18 19:45 05/29/18 19:44 Haloperidol (Haldol) 5 mg Q4H PRN ORAL Agitation 04/29/18 19:45 05/29/18 19:29 Lorazepam (Ativan 2mg/ml 1ml) 0.5 mg Q4H PRN IV For Anxiety 04/29/18 19:30 05/06/18 19:29 05/02/18 04:13 Metoprolol Tartrate (Lopressor) 25 mg Q12HR ORAL 04/29/18 21:00 05/29/18 20:59 05/01/18 08:29 Mirtazapine (Remeron) 15 mg BEDTIME ORAL 04/29/18 21:00 05/29/18 20:59 05/01/18 21:02 Morphine Sulfate (Morphine Sulfate) 1 mg Q4H PRN IVP For Pain 04/29/18 19:30 05/06/18 19:29 04/30/18 18:36 Ondansetron HCl (Zofran) 4 mg Q6H PRN IVP Nausea & Vomiting 04/29/18 19:30 05/29/18 19:29 Piperacillin Sod/ Tazobactam Sod 3.375 gm/Dextrose 110 ml @ 27.5 mls/hr EVERY 8 HOURS IVPB 05/02/18 14:00 05/07/18 13:59 Polyethylene Glycol (Miralax) 17 gm HSPRN PRN ORAL Constipation 04/29/18 19:30 05/29/18 19:29 Quetiapine Fumarate (SEROquel) 50 mg Q8HR ORAL 04/29/18 22:00 05/29/18 21:59 05/01/18 21:52 Tamsulosin HCl (Flomax) 0.4 mg BEDTIME ORAL 04/29/18 21:00 05/29/18 20:59 05/01/18 21:01 Zolpidem Tartrate (Ambien) 5 mg HSPRN PRN ORAL Insomnia 04/29/18 19:30 05/06/18 19:29 04/29/18 23:38 Jose Bello MD May 02, 2018 12:41
--- NOTE | 2018-05-02 13:30 | Nephrology Progress Note ---
Assessment/Plan Assessment 1. Hypernatremia. 2. hypokalemia 3. Acute renal failure. 4. Chronic kidney disease. 5. Recurrent pyelonephritis complicated with nephrolithiasis and right hydronephrosis. 6. Failure to thrive. Plan plan to replace k continue current iv monitoring renal function avoid NSIAD nutritional support Subjective Constitutional: Reports: no symptoms HEENT: Reports: no symptoms Genitourinary: Reports: no symptoms Neurologic/Psychiatric: Reports: no symptoms Subjective NAD no events overnight Objective Objective Last 24 Hour Vital Signs Date Time Temp Pulse Resp B/P (MAP) Pulse Ox O2 Delivery O2 Flow Rate FiO2 05/02/18 12:00 98.1 96 18 99/75 (83) 95 98.1 96 05/02/18 09:00 93 93/65 05/02/18 09:00 Room Air 05/02/18 08:00 98.1 93 17 93/65 (74) 94 98.1 05/02/18 03:47 96.5 91 20 109/50 (69) 98 96.5 91 05/02/18 00:22 97.9 85 20 117/66 (83) 91 97.9 85 05/01/18 21:00 Room Air 05/01/18 21:00 91 93/52 05/01/18 19:13 96.0 107 20 91/52 (65) 94 96.0 107 05/01/18 16:00 98.0 79 20 110/65 (80) 95 98.0 Intake and Output 05/01/18 05/02/18 19:00 07:00 Intake Total 1870 ml 1630 ml Balance 1870 ml 1630 ml Intake Oral 180 ml IV Total 1870 ml 1450 ml # Voids 2 4 # Bowel Movements 2 1 Laboratory Tests 05/02/18 06:00: White Blood Count 8.6, Red Blood Count 4.04L, Hemoglobin 12.1L, Hematocrit 36.7L , Mean Corpuscular Volume 91, Mean Corpuscular Hemoglobin 30.0, Mean Corpuscular Hemoglobin Concent 33.1, Red Cell Distribution Width 12.3, Platelet Count 174, Mean Platelet Volume 7.6, Neutrophils (%) (Auto) 64.2, Lymphocytes (% ) (Auto) 25.6, Monocytes (%) (Auto) 8.3, Eosinophils (%) (Auto) 1.6, Basophils ( %) (Auto) 0.3, Sodium Level 139, Potassium Level 3.4L, Chloride Level 107, Carbon Dioxide Level 25, Anion Gap 7, Blood Urea Nitrogen 21H, Creatinine 1.9H, Estimat Glomerular Filtration Rate 42.9, Glucose Level 144H, Calcium Level 8.5 Height (Feet): 5 Height (Inches): 10.00 Weight (Pounds): 140 Objective HEAD AND NECK: No JVP. No LAD. No thyromegaly. Extraocular movement is intact. Pupils are reactive to light and accommodation. LUNGS: Clear to auscultation. CARDIAC: Regular rate and rhythm. S1 and S2. No murmur. No rub. ABDOMEN: Soft, nontender, and nondistended. No organomegaly. EXTREMITIES: No edema. No clubbing. No cyanosis. Pamela Davila MD May 02, 2018 13:30
[2018-05-02] MEDS: Piperacillin/Tazobactam 3.375 GM in D5W 110 ML IVPB SCH ×2 (15:20→21:07)
[2018-05-02] MEDS ORDERED: Tubing IV Secondary IV ONE (15:48)
--- NOTE | 2018-05-02 18:14 | Internal Med Progress Note ---
Subjective Date of Service: May 02, 2018 Physician Name Alton Marshall Attending Physician Robin Wright MD Current Medications Medications (Trade) Dose Ordered Sig/Lucie Route PRN Reason Start Time Stop Time Status Last Admin Dose Admin Acetaminophen (Tylenol) 650 mg Q4H PRN ORAL fever 04/29/18 19:30 05/29/18 19:29 Al Hydroxide/Mg Hydroxide (Mylanta II) 30 ml Q6H PRN ORAL dyspepsia 04/29/18 19:30 05/29/18 19:29 Dextrose 1,000 ml @ 150 mls/hr Q6H40M IV 04/29/18 19:30 05/29/18 19:29 05/02/18 15:06 Dextrose (Dextrose 50%) 25 ml STAT PRN IV Hypoglycemia 04/29/18 19:30 05/29/18 19:29 Dextrose (Dextrose 50%) 50 ml STAT PRN IV Hypoglycemia 04/29/18 19:45 05/29/18 19:44 Haloperidol (Haldol) 5 mg Q4H PRN ORAL Agitation 04/29/18 19:45 05/29/18 19:29 Lorazepam (Ativan 2mg/ml 1ml) 0.5 mg Q4H PRN IV For Anxiety 04/29/18 19:30 05/06/18 19:29 05/02/18 04:13 Metoprolol Tartrate (Lopressor) 25 mg Q12HR ORAL 04/29/18 21:00 05/29/18 20:59 05/01/18 08:29 Mirtazapine (Remeron) 15 mg BEDTIME ORAL 04/29/18 21:00 05/29/18 20:59 05/01/18 21:02 Morphine Sulfate (Morphine Sulfate) 1 mg Q4H PRN IVP For Pain 04/29/18 19:30 05/06/18 19:29 04/30/18 18:36 Ondansetron HCl (Zofran) 4 mg Q6H PRN IVP Nausea & Vomiting 04/29/18 19:30 05/29/18 19:29 Piperacillin Sod/ Tazobactam Sod 3.375 gm/Dextrose 110 ml @ 27.5 mls/hr EVERY 8 HOURS IVPB 05/02/18 14:00 05/07/18 13:59 05/02/18 15:20 Polyethylene Glycol (Miralax) 17 gm HSPRN PRN ORAL Constipation 04/29/18 19:30 05/29/18 19:29 Quetiapine Fumarate (SEROquel) 50 mg Q8HR ORAL 04/29/18 22:00 05/29/18 21:59 05/02/18 15:06 Tamsulosin HCl (Flomax) 0.4 mg BEDTIME ORAL 04/29/18 21:00 05/29/18 20:59 05/01/18 21:01 Zolpidem Tartrate (Ambien) 5 mg HSPRN PRN ORAL Insomnia 04/29/18 19:30 05/06/18 19:29 04/29/18 23:38 Allergies: Uncoded Allergies: anesthesia (Allergy, Unknown, 07/04/14) ROS Limited/Unobtainable: Yes Subjective 67 YO M admitted for generalized weakness. Cover for Int Paul-Dr Wright Objective Last Vital Signs Date Time Temp Pulse Resp B/P (MAP) Pulse Ox O2 Delivery O2 Flow Rate FiO2 05/02/18 17:09 98.2 97 19 100/67 (78) 97 98.2 100 05/02/18 09:00 Room Air Laboratory Tests Test 05/02/18 06:00 White Blood Count 8.6 K/UL (4.8-10.8) Red Blood Count 4.04 M/UL (4.70-6.10) L Hemoglobin 12.1 G/DL (14.2-18.0) L Hematocrit 36.7 % (42.0-52.0) L Mean Corpuscular Volume 91 FL (80-99) Mean Corpuscular Hemoglobin 30.0 PG (27.0-31.0) Mean Corpuscular Hemoglobin Concent 33.1 G/DL (32.0-36.0) Red Cell Distribution Width 12.3 % (11.6-14.8) Platelet Count 174 K/UL (150-450) Mean Platelet Volume 7.6 FL (6.5-10.1) Neutrophils (%) (Auto) 64.2 % (45.0-75.0) Lymphocytes (%) (Auto) 25.6 % (20.0-45.0) Monocytes (%) (Auto) 8.3 % (1.0-10.0) Eosinophils (%) (Auto) 1.6 % (0.0-3.0) Basophils (%) (Auto) 0.3 % (0.0-2.0) Sodium Level 139 MMOL/L (136-145) Potassium Level 3.4 MMOL/L (3.5-5.1) L Chloride Level 107 MMOL/L (98-107) Carbon Dioxide Level 25 MMOL/L (21-32) Anion Gap 7 mmol/L (5-15) Blood Urea Nitrogen 21 mg/dL (7-18) H Creatinine 1.9 MG/DL (0.55-1.30) H Estimat Glomerular Filtration Rate 42.9 mL/min (>60) Glucose Level 144 MG/DL (74-106) H Calcium Level 8.5 MG/DL (8.5-10.1) Microbiology Date/Time Source Procedure Growth Status 04/29/18 18:30 Nasal Nares MRSA Culture - Final NO METHICILLIN RESISTANT STAPH AUREUS... Complete 04/30/18 07:10 Urine,Clean Catch Urine Culture - Final Escherichia Coli - Esbl Complete 04/29/18 18:30 Rectum VRE Culture - Final Enterococcus Faecalis - Vre Complete 04/29/18 18:30 Rectum - Final NO CARBAPENEM-RESISTANT ENTEROBACTERI... Complete Intake and Output 05/01/18 05/02/18 19:00 07:00 Intake Total 1870 ml 1630 ml Balance 1870 ml 1630 ml Intake Oral 180 ml IV Total 1870 ml 1450 ml # Voids 2 4 # Bowel Movements 2 1 Objective General Appearance: alert, mild distress, thin EENT: PERRL/EOMI, normal ENT inspection Neck: non-tender, normal alignment, supple, normal inspection Cardiovascular: normal peripheral pulses, normal rate, regular rhythm, no gallop/murmur, no JVD Respiratory/Chest: chest wall non-tender, lungs clear, normal breath sounds, no respiratory distress, no accessory muscle use Abdomen: normal bowel sounds, non tender, soft, no organomegaly, no mass Extremities: normal range of motion 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 (2) HTN (hypertension) Assessment & Plan: Continue metoprolol (3) Hepatitis C (4) Cerebral vascular disease (5) UTI (urinary tract infection) Assessment & Plan: ESBL E. Coli. Continue zosyn per ID. (6) Weakness (7) Prostate cancer Status: not improved Alton Marshall MD May 02, 2018 18:14
[2018-05-02] MEDS: Tamsulosin 0.4mg cap ORAL SCH (21:07)
[2018-05-03] MEDS: LORazepam Inj 2mg/ml 1ml IV PRN (02:52)
[2018-05-03 03:46] VITALS: BP 112/55
[2018-05-03] MEDS: Piperacillin/Tazobactam 3.375 GM in D5W 110 ML IVPB SCH ×3 (05:32→21:39)
[2018-05-03 08:00] VITALS: BP 120/82
--- NOTE | 2018-05-03 08:25 | Pulmonology Progress Note ---
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 creat trending down psychiatry seen and evaluated, diagnosed with dementia with behavioral disturbances RO and ST provided by psych psychiatric medication regimen blood pressure management with beta michaela and optimize further as needed. PT/OT fall precautions swallow evaluation Lipid panel within normal limits No ASA, given history of frequent falls pain management bowel regimen supportive care discussed with , now considering transfer back to [facility] rehab will repeat swallow eval and diet eval on Friday am per lost weight on pureed diet and can eat soft diet case discussed and evaluated by supervising physician case discussed and evaluated by supervising physician Subjective Allergies: Uncoded Allergies: anesthesia (Allergy, Unknown, 07/04/14) Subjective creat trending down urine cx + E coli ESBL afebrile no leuk Objective Last 24 Hour Vital Signs Date Time Temp Pulse Resp B/P (MAP) Pulse Ox O2 Delivery O2 Flow Rate FiO2 05/03/18 03:46 97.7 85 20 112/55 (74) 99 97.7 85 05/02/18 23:56 97.9 75 20 112/69 (83) 98 97.9 75 05/02/18 21:20 110 124/66 05/02/18 21:00 Room Air 05/02/18 19:56 98.1 110 20 124/66 (85) 95 98.1 110 05/02/18 17:09 98.2 97 19 100/67 (78) 97 98.2 100 05/02/18 16:00 98.2 97 19 100/67 (78) 97 98.2 100 05/02/18 12:00 98.1 96 18 99/75 (83) 95 98.1 96 05/02/18 09:00 93 93/65 05/02/18 09:00 Room Air Intake and Output 05/02/18 05/03/18 19:00 07:00 Intake Total 1405.0 ml Balance 1405.0 ml Intake Oral 340 ml IV Total 1065.0 ml # Voids 3 3 # Bowel Movements 2 3 Objective HEENT: normocephalic, atraumatic, anicteric, mucous membranes moist, PERRL Respiratory/Chest: lungs clear, no respiratory distress, no accessory muscle use Cardiovascular: normal peripheral pulses, normal rate Abdomen: normal bowel sounds, soft, non tender Extremities: no edema Neurologic/Psychiatric: alert, responsive Musculoskeletal: normal muscle bulk Current Medications Medications (Trade) Dose Ordered Sig/Lucie Route PRN Reason Start Time Stop Time Status Last Admin Dose Admin Acetaminophen (Tylenol) 650 mg Q4H PRN ORAL fever 04/29/18 19:30 05/29/18 19:29 Al Hydroxide/Mg Hydroxide (Mylanta II) 30 ml Q6H PRN ORAL dyspepsia 04/29/18 19:30 05/29/18 19:29 Dextrose 1,000 ml @ 150 mls/hr Q6H40M IV 04/29/18 19:30 05/29/18 19:29 05/03/18 02:30 Dextrose (Dextrose 50%) 25 ml STAT PRN IV Hypoglycemia 04/29/18 19:30 05/29/18 19:29 Dextrose (Dextrose 50%) 50 ml STAT PRN IV Hypoglycemia 04/29/18 19:45 05/29/18 19:44 Haloperidol (Haldol) 5 mg Q4H PRN ORAL Agitation 04/29/18 19:45 05/29/18 19:29 Lorazepam (Ativan 2mg/ml 1ml) 0.5 mg Q4H PRN IV For Anxiety 04/29/18 19:30 05/06/18 19:29 05/03/18 02:52 Metoprolol Tartrate (Lopressor) 25 mg Q12HR ORAL 04/29/18 21:00 05/29/18 20:59 05/02/18 21:20 Mirtazapine (Remeron) 15 mg BEDTIME ORAL 04/29/18 21:00 05/29/18 20:59 05/02/18 21:07 Morphine Sulfate (Morphine Sulfate) 1 mg Q4H PRN IVP For Pain 04/29/18 19:30 05/06/18 19:29 04/30/18 18:36 Ondansetron HCl (Zofran) 4 mg Q6H PRN IVP Nausea & Vomiting 04/29/18 19:30 05/29/18 19:29 Piperacillin Sod/ Tazobactam Sod 3.375 gm/Dextrose 110 ml @ 27.5 mls/hr EVERY 8 HOURS IVPB 05/02/18 14:00 05/07/18 13:59 05/03/18 05:32 Polyethylene Glycol (Miralax) 17 gm HSPRN PRN ORAL Constipation 04/29/18 19:30 05/29/18 19:29 Quetiapine Fumarate (SEROquel) 50 mg Q8HR ORAL 04/29/18 22:00 05/29/18 21:59 05/03/18 05:32 Tamsulosin HCl (Flomax) 0.4 mg BEDTIME ORAL 04/29/18 21:00 05/29/18 20:59 05/02/18 21:07 Zolpidem Tartrate (Ambien) 5 mg HSPRN PRN ORAL Insomnia 04/29/18 19:30 05/06/18 19:29 04/29/18 23:38 Baylee Montero [employer] May 03, 2018 08:25
[2018-05-03] MEDS: Metoprolol 25mg tab ORAL SCH ×2 (09:15→21:41)
[2018-05-03 12:00] VITALS: BP 118/78
--- NOTE | 2018-05-03 12:26 | Cardiology Report ---
APPROVED REPORT EKG Measurement Heart [id number] Sinus tachycardia Otherwise normal ECG
[2018-05-03 16:00] VITALS: BP 130/62
--- NOTE | 2018-05-03 16:28 | Nephrology Progress Note ---
Assessment/Plan Assessment 1. Hypernatremia. 2. hypokalemia 3. Acute renal failure. 4. Chronic kidney disease. 5. Recurrent pyelonephritis complicated with nephrolithiasis and right hydronephrosis. 6. Failure to thrive. Plan plan to replace k continue current iv monitoring renal function avoid NSIAD nutritional support Subjective Constitutional: Reports: no symptoms HEENT: Reports: no symptoms Genitourinary: Reports: no symptoms Neurologic/Psychiatric: Reports: no symptoms Subjective NAD no events overnight Objective Objective Last 24 Hour Vital Signs Date Time Temp Pulse Resp B/P (MAP) Pulse Ox O2 Delivery O2 Flow Rate FiO2 05/03/18 12:00 97.3 81 18 118/78 (91) 98 97.3 81 05/03/18 09:15 78 120/82 05/03/18 08:30 Room Air 05/03/18 08:00 97.9 78 19 120/82 (95) 94 97.9 78 05/03/18 03:46 97.7 85 20 112/55 (74) 99 97.7 85 05/02/18 23:56 97.9 75 20 112/69 (83) 98 97.9 75 05/02/18 21:20 110 124/66 05/02/18 21:00 Room Air 05/02/18 19:56 98.1 110 20 124/66 (85) 95 98.1 110 05/02/18 17:09 98.2 97 19 100/67 (78) 97 98.2 100 Intake and Output 05/02/18 05/03/18 19:00 07:00 Intake Total 1405.0 ml Balance 1405.0 ml Intake Oral 340 ml IV Total 1065.0 ml # Voids 3 3 # Bowel Movements 2 3 Height (Feet): 5 Height (Inches): 10.00 Weight (Pounds): 140 Objective HEAD AND NECK: No JVP. No LAD. No thyromegaly. Extraocular movement is intact. Pupils are reactive to light and accommodation. LUNGS: Clear to auscultation. CARDIAC: Regular rate and rhythm. S1 and S2. No murmur. No rub. ABDOMEN: Soft, nontender, and nondistended. No organomegaly. EXTREMITIES: No edema. No clubbing. No cyanosis. Pamela Davila MD May 03, 2018 16:28
--- NOTE | 2018-05-03 16:51 | Internal Med Progress Note ---
Subjective Date of Service: May 03, 2018 Physician Name MarshallAlton Attending Physician Robin Wright MD Current Medications Medications (Trade) Dose Ordered Sig/Lucie Route PRN Reason Start Time Stop Time Status Last Admin Dose Admin Acetaminophen (Tylenol) 650 mg Q4H PRN ORAL fever 04/29/18 19:30 05/29/18 19:29 Al Hydroxide/Mg Hydroxide (Mylanta II) 30 ml Q6H PRN ORAL dyspepsia 04/29/18 19:30 05/29/18 19:29 Dextrose 1,000 ml @ 150 mls/hr Q6H40M IV 04/29/18 19:30 05/29/18 19:29 05/03/18 02:30 Dextrose (Dextrose 50%) 25 ml STAT PRN IV Hypoglycemia 04/29/18 19:30 05/29/18 19:29 Dextrose (Dextrose 50%) 50 ml STAT PRN IV Hypoglycemia 04/29/18 19:45 05/29/18 19:44 Haloperidol (Haldol) 5 mg Q4H PRN ORAL Agitation 04/29/18 19:45 05/29/18 19:29 Lorazepam (Ativan 2mg/ml 1ml) 0.5 mg Q4H PRN IV For Anxiety 04/29/18 19:30 05/06/18 19:29 05/03/18 02:52 Metoprolol Tartrate (Lopressor) 25 mg Q12HR ORAL 04/29/18 21:00 05/29/18 20:59 05/03/18 09:15 Mirtazapine (Remeron) 15 mg BEDTIME ORAL 04/29/18 21:00 05/29/18 20:59 05/02/18 21:07 Morphine Sulfate (Morphine Sulfate) 1 mg Q4H PRN IVP For Pain 04/29/18 19:30 05/06/18 19:29 04/30/18 18:36 Ondansetron HCl (Zofran) 4 mg Q6H PRN IVP Nausea & Vomiting 04/29/18 19:30 05/29/18 19:29 Piperacillin Sod/ Tazobactam Sod 3.375 gm/Dextrose 110 ml @ 27.5 mls/hr EVERY 8 HOURS IVPB 05/02/18 14:00 05/07/18 13:59 05/03/18 14:43 Polyethylene Glycol (Miralax) 17 gm HSPRN PRN ORAL Constipation 04/29/18 19:30 05/29/18 19:29 Potassium Chloride (K-Dur) 40 meq ONCE ORAL 05/03/18 16:45 05/03/18 17:45 Quetiapine Fumarate (SEROquel) 50 mg Q8HR ORAL 04/29/18 22:00 05/29/18 21:59 05/03/18 14:26 Tamsulosin HCl (Flomax) 0.4 mg BEDTIME ORAL 04/29/18 21:00 05/29/18 20:59 05/02/18 21:07 Zolpidem Tartrate (Ambien) 5 mg HSPRN PRN ORAL Insomnia 04/29/18 19:30 05/06/18 19:29 04/29/18 23:38 Allergies: Uncoded Allergies: anesthesia (Allergy, Unknown, 07/04/14) ROS Limited/Unobtainable: Yes Subjective 67 YO M admitted for generalized weakness. Now UTI. Cover for Int Med-Dr Wright Objective Last Vital Signs Date Time Temp Pulse Resp B/P (MAP) Pulse Ox O2 Delivery O2 Flow Rate FiO2 05/03/18 16:00 98.1 76 20 130/62 (84) 98 98.1 76 05/03/18 08:30 Room Air Intake and Output 05/02/18 05/03/18 19:00 07:00 Intake Total 1405.0 ml Balance 1405.0 ml Intake Oral 340 ml IV Total 1065.0 ml # Voids 3 3 # Bowel Movements 2 3 Objective General Appearance: alert, mild distress, thin EENT: PERRL/EOMI, normal ENT inspection Neck: non-tender, normal alignment, supple, normal inspection Cardiovascular: normal peripheral pulses, normal rate, regular rhythm, no gallop/murmur, no JVD Respiratory/Chest: chest wall non-tender, lungs clear, normal breath sounds, no respiratory distress, no accessory muscle use Abdomen: normal bowel sounds, non tender, soft, no organomegaly, no mass Extremities: normal range of motion 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 (2) HTN (hypertension) Assessment & Plan: Continue metoprolol (3) Hepatitis C (4) Cerebral vascular disease (5) UTI (urinary tract infection) Assessment & Plan: ESBL E. Coli. Continue zosyn per ID. (6) Weakness (7) Prostate cancer Alton Marshall MD May 03, 2018 16:51
[2018-05-03 20:00] VITALS: BP 127/82
[2018-05-03] MEDS: Tamsulosin 0.4mg cap ORAL SCH (21:41)
[2018-05-04] VITALS: BP 133/88
[2018-05-04 04:00] VITALS: BP 108/67
[2018-05-04] MEDS: Piperacillin/Tazobactam 3.375 GM in D5W 110 ML IVPB SCH ×3 (05:56→21:47)
--- NOTE | 2018-05-04 07:43 | Nephrology Progress Note ---
Assessment/Plan Assessment 1. Hypernatremia. 2. hypokalemia 3. Acute renal failure. 4. Chronic kidney disease. 5. Recurrent pyelonephritis complicated with nephrolithiasis and right hydronephrosis. 6. Failure to thrive. Plan plan to replace k continue current iv monitoring renal function avoid NSIAD nutritional support Subjective ROS Limited/Unobtainable: Yes Constitutional: Reports: no symptoms HEENT: Reports: no symptoms Genitourinary: Reports: no symptoms Neurologic/Psychiatric: Reports: no symptoms Subjective NAD no events overnight Objective Objective Last 24 Hour Vital Signs Date Time Temp Pulse Resp B/P (MAP) Pulse Ox O2 Delivery O2 Flow Rate FiO2 05/04/18 04:00 98.0 64 18 108/67 (81) 97 98.0 64 05/04/18 00:00 98.1 82 20 133/88 (103) 97 98.1 82 05/03/18 21:41 89 127/82 05/03/18 21:00 Room Air 05/03/18 20:00 98.8 89 17 127/82 (97) 96 98.8 89 05/03/18 16:00 98.1 76 20 130/62 (84) 98 98.1 76 05/03/18 12:00 97.3 81 18 118/78 (91) 98 97.3 81 05/03/18 09:15 78 120/82 05/03/18 08:30 Room Air 05/03/18 08:00 97.9 78 19 120/82 (95) 94 97.9 78 Intake and Output 05/03/18 05/04/18 19:00 07:00 Intake Total 100 ml 1187.5 ml Output Total 200 ml Balance -100 ml 1187.5 ml Intake Oral 100 ml IV Total 1187.5 ml Output Urine Total 200 ml # Voids 3 3 # Bowel Movements 2 Height (Feet): 5 Height (Inches): 10.00 Weight (Pounds): 140 Objective HEAD AND NECK: No JVP. No LAD. No thyromegaly. Extraocular movement is intact. Pupils are reactive to light and accommodation. LUNGS: Clear to auscultation. CARDIAC: Regular rate and rhythm. S1 and S2. No murmur. No rub. ABDOMEN: Soft, nontender, and nondistended. No organomegaly. EXTREMITIES: No edema. No clubbing. No cyanosis. Pamela Davila MD May 04, 2018 07:43
[2018-05-04 08:00] VITALS: BP 132/70
[2018-05-04 08:55] VITALS: BP 132/70
[2018-05-04] MEDS: Metoprolol 25mg tab ORAL SCH ×2 (09:56→21:08)
[2018-05-04 10:31] LABS: ANION GAP 9 mmol/L (5-15); BLOOD UREA NITROGEN 12 mg/dL (7-18); CARBON DIOXIDE 26 MMOL/L (21-32); CHLORIDE 106 MMOL/L (98-107); CREATININE 1.8 MG/DL (0.55-1.30); POTASSIUM 3.8 MMOL/L (3.5-5.1); SODIUM 140 MMOL/L (136-145)
[2018-05-04] MEDS: LORazepam Inj 2mg/ml 1ml IV PRN ×3 (11:20→23:51)
[2018-05-04 12:00] VITALS: BP 106/75
--- NOTE | 2018-05-04 12:53 | Pulmonology Progress Note ---
Assessment/Plan Problems: (1) ATN (acute tubular necrosis) (2) Acute encephalopathy (3) Dementia (4) Prostate cancer (5) Paranoia (6) Frequent falls Assessment/Plan improving check electrolytes, creatinine slowly decreasing all reviewed, including meds and notes pt/ot doesn't want the previous [facility] case management consult Subjective ROS Limited/Unobtainable: No Constitutional: Reports: no symptoms HEENT: Repors: no symptoms Respiratory: Reports: no symptoms Allergies: Uncoded Allergies: anesthesia (Allergy, Unknown, 07/04/14) Objective Last 24 Hour Vital Signs Date Time Temp Pulse Resp B/P (MAP) Pulse Ox O2 Delivery O2 Flow Rate FiO2 05/04/18 12:00 97.4 91 14 106/75 (85) 98 97.4 91 05/04/18 09:56 85 132/70 05/04/18 08:55 97.1 85 20 132/70 (90) 97 97.1 85 05/04/18 08:10 Room Air 05/04/18 08:00 97.1 85 20 132/70 (90) 98 97.1 05/04/18 04:00 98.0 64 18 108/67 (81) 97 98.0 64 05/04/18 00:00 98.1 82 20 133/88 (103) 97 98.1 82 05/03/18 21:41 89 127/82 05/03/18 21:00 Room Air 05/03/18 20:00 98.8 89 17 127/82 (97) 96 98.8 89 05/03/18 16:00 98.1 76 20 130/62 (84) 98 98.1 76 Intake and Output 05/03/18 05/04/18 19:00 07:00 Intake Total 100 ml 1187.5 ml Output Total 200 ml Balance -100 ml 1187.5 ml Intake Oral 100 ml IV Total 1187.5 ml Output Urine Total 200 ml # Voids 3 3 # Bowel Movements 2 General Appearance: WD/WN HEENT: normocephalic, atraumatic Respiratory/Chest: chest wall non-tender, normal breath sounds Cardiovascular: normal peripheral pulses, normal rate Abdomen: soft, non tender Genitourinary: normal external genitalia Extremities: no cyanosis Skin: no rash 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, normal mood/affect Laboratory Tests 05/04/18 08:45: Sodium Level 140, Potassium Level 3.8, Chloride Level 106, Carbon Dioxide Level 26, Anion Gap 9, Blood Urea Nitrogen 12, Creatinine 1.8H, Estimat Glomerular Filtration Rate 45.7, Glucose Level 102, Calcium Level 9.0 Current Medications Medications (Trade) Dose Ordered Sig/Lucie Route PRN Reason Start Time Stop Time Status Last Admin Dose Admin Acetaminophen (Tylenol) 650 mg Q4H PRN ORAL fever 04/29/18 19:30 05/29/18 19:29 Al Hydroxide/Mg Hydroxide (Mylanta II) 30 ml Q6H PRN ORAL dyspepsia 04/29/18 19:30 05/29/18 19:29 Dextrose 1,000 ml @ 150 mls/hr Q6H40M IV 04/29/18 19:30 05/29/18 19:29 05/03/18 17:17 Dextrose (Dextrose 50%) 25 ml STAT PRN IV Hypoglycemia 04/29/18 19:30 05/29/18 19:29 Dextrose (Dextrose 50%) 50 ml STAT PRN IV Hypoglycemia 04/29/18 19:45 05/29/18 19:44 Haloperidol (Haldol) 5 mg Q4H PRN ORAL Agitation 04/29/18 19:45 05/29/18 19:29 05/04/18 11:10 Lorazepam (Ativan 2mg/ml 1ml) 0.5 mg Q4H PRN IV For Anxiety 04/29/18 19:30 05/06/18 19:29 05/04/18 11:20 Metoprolol Tartrate (Lopressor) 25 mg Q12HR ORAL 04/29/18 21:00 05/29/18 20:59 05/04/18 09:56 Mirtazapine (Remeron) 15 mg BEDTIME ORAL 04/29/18 21:00 05/29/18 20:59 05/03/18 21:42 Morphine Sulfate (Morphine Sulfate) 1 mg Q4H PRN IVP For Pain 04/29/18 19:30 05/06/18 19:29 04/30/18 18:36 Ondansetron HCl (Zofran) 4 mg Q6H PRN IVP Nausea & Vomiting 04/29/18 19:30 05/29/18 19:29 Piperacillin Sod/ Tazobactam Sod 3.375 gm/Dextrose 110 ml @ 27.5 mls/hr EVERY 8 HOURS IVPB 05/02/18 14:00 05/07/18 13:59 05/04/18 05:56 Polyethylene Glycol (Miralax) 17 gm HSPRN PRN ORAL Constipation 04/29/18 19:30 05/29/18 19:29 Quetiapine Fumarate (SEROquel) 50 mg Q8HR ORAL 04/29/18 22:00 05/29/18 21:59 05/04/18 05:56 Tamsulosin HCl (Flomax) 0.4 mg BEDTIME ORAL 04/29/18 21:00 05/29/18 20:59 05/03/18 21:41 Zolpidem Tartrate (Ambien) 5 mg HSPRN PRN ORAL Insomnia 04/29/18 19:30 05/06/18 19:29 04/29/18 23:38 German Mooney MD May 04, 2018 12:53
--- NOTE | 2018-05-04 13:40 | Infectious Diseases Prog Note ---
Assessment/Plan Assessment/Plan Assessment: Pyuria, probable UTI vs colonization -u/a wbc 30-40,nit +, leuk +3; ucx >100k ESBL Ecoli (S Zosyn) Afebrile No leukocytosis Hx of Recurrent UTI -01/2018: -u/a wbc 30-40, nit +, leuk +3; ucx >100K ESBL E.coli (S zozyn, nitrofurantoin, bactrim, ertapenem;R levo); repeat u/a 01/08 wbc tntc, nit+, leuk +3; ucx 50-60k E.fecalis (S vanco, amp; R levo) -10/2017: -u/a WBC TNTC- ucx >100k E. fecalis (S Vanco, amp), 30-40k mixed gram positive growth Chronic R ureterolithiasis and K staghorn calculus -CT abd/p 01/2018 : Distal right ureteral calculi, stable over multiple earlier studies dating back to 09/20/2014, again demonstrated. There is persistent right hydronephrosis and right renal atrophy. Nonobstructive right lower pole renal calculi are again demonstrated. Large left renal staghorn calculus, also present as far back as 2013. Mild right hydronephrosis but no ureteral calculi or hydroureter. Other nonobstructive left lower pole renal calculi are also evident. Gas bubbles within the left renal collecting system and bladder, markedly decreased from the previous 2016 exam. Uncertain as to whether these represent bladder instrumentation with reflux into the left renal collecting system, versus artifact due to infection with gas-forming organism. Correlate with clinical and laboratory findings. The bladder wall is also mildly thickened , unchanged from previously. Cystitis a possibility. Left renal cyst, also previously described. Cholelithiasis, new since prior study. Left basilar dependent pulmonary parenchymal atelectasis. Evidence of COPD, with hyperinflation and a single small bulla. Evidence of prior prostatectomy Chronic Hep C infection - hEp C VL 42K 10/2017 -Hep A Imm, Hep B Ab neg, HIV Neg History of recurrent urinary tract infection. History of osteomyelitis of the second left toe and distal phalanx. Dehydration / HAMZAH improving Generalized weakness -CT head: No acute intracranial bleed, mass effect or edema. Moderate atrophy of the brain. Evidence of chronic small vessel disease involving white matter tracts. History of prostate cancer. History of renal stone and CKD. Dementia HTN CVA hx IVDA Plan: -Continue IV zosyn # 3/5 for possible ESBL UTI - 05/02 Sp Ceftriaxone d# 3 -01/06 SP Bactrim DS 1 tab bid #07/29 for possible ESBL UTI and PO Amoxicillin #5/5 for enterococcal coverage -01/10 SP Ertapenem #4 -01/06 SP IV Vancomycin #2 -01/05 SP Ceftriaxone x1 -11/12/17 SP PO ampicillin #14 -f/u cx -Monitor CBC/CMP, temperatures -aspiration precautions Subjective Allergies: Uncoded Allergies: anesthesia (Allergy, Unknown, 07/04/14) Subjective afebrile no leukocytosis Objective Vital Signs Last 24 Hour Vital Signs Date Time Temp Pulse Resp B/P (MAP) Pulse Ox O2 Delivery O2 Flow Rate FiO2 05/04/18 12:00 97.4 91 14 106/75 (85) 98 97.4 91 05/04/18 09:56 85 132/70 05/04/18 08:55 97.1 85 20 132/70 (90) 97 97.1 85 05/04/18 08:10 Room Air 05/04/18 08:00 97.1 85 20 132/70 (90) 98 97.1 05/04/18 04:00 98.0 64 18 108/67 (81) 97 98.0 64 05/04/18 00:00 98.1 82 20 133/88 (103) 97 98.1 82 05/03/18 21:41 89 127/82 05/03/18 21:00 Room Air 05/03/18 20:00 98.8 89 17 127/82 (97) 96 98.8 89 05/03/18 16:00 98.1 76 20 130/62 (84) 98 98.1 76 Height (Feet): 5 Height (Inches): 10.00 Weight (Pounds): 140 Objective HEENT: anicteric Respiratory/Chest: no respiratory distress Cardiovascular: regularly irregular Abdomen: non distended Laboratory Tests Test 05/04/18 08:45 Sodium Level 140 MMOL/L (136-145) Potassium Level 3.8 MMOL/L (3.5-5.1) Chloride Level 106 MMOL/L (98-107) Carbon Dioxide Level 26 MMOL/L (21-32) Anion Gap 9 mmol/L (5-15) Blood Urea Nitrogen 12 mg/dL (7-18) Creatinine 1.8 MG/DL (0.55-1.30) H Estimat Glomerular Filtration Rate 45.7 mL/min (>60) Glucose Level 102 MG/DL (74-106) Calcium Level 9.0 MG/DL (8.5-10.1) Current Medications Medications (Trade) Dose Ordered Sig/Lucie Route PRN Reason Start Time Stop Time Status Last Admin Dose Admin Acetaminophen (Tylenol) 650 mg Q4H PRN ORAL fever 04/29/18 19:30 05/29/18 19:29 Al Hydroxide/Mg Hydroxide (Mylanta II) 30 ml Q6H PRN ORAL dyspepsia 04/29/18 19:30 05/29/18 19:29 Dextrose 1,000 ml @ 150 mls/hr Q6H40M IV 04/29/18 19:30 05/29/18 19:29 05/03/18 17:17 Dextrose (Dextrose 50%) 25 ml STAT PRN IV Hypoglycemia 04/29/18 19:30 05/29/18 19:29 Dextrose (Dextrose 50%) 50 ml STAT PRN IV Hypoglycemia 04/29/18 19:45 05/29/18 19:44 Haloperidol (Haldol) 5 mg Q4H PRN ORAL Agitation 04/29/18 19:45 05/29/18 19:29 05/04/18 11:10 Lorazepam (Ativan 2mg/ml 1ml) 0.5 mg Q4H PRN IV For Anxiety 04/29/18 19:30 05/06/18 19:29 05/04/18 11:20 Metoprolol Tartrate (Lopressor) 25 mg Q12HR ORAL 04/29/18 21:00 05/29/18 20:59 05/04/18 09:56 Mirtazapine (Remeron) 15 mg BEDTIME ORAL 04/29/18 21:00 05/29/18 20:59 05/03/18 21:42 Morphine Sulfate (Morphine Sulfate) 1 mg Q4H PRN IVP For Pain 04/29/18 19:30 05/06/18 19:29 04/30/18 18:36 Ondansetron HCl (Zofran) 4 mg Q6H PRN IVP Nausea & Vomiting 04/29/18 19:30 05/29/18 19:29 Piperacillin Sod/ Tazobactam Sod 3.375 gm/Dextrose 110 ml @ 27.5 mls/hr EVERY 8 HOURS IVPB 05/02/18 14:00 05/07/18 13:59 05/04/18 05:56 Polyethylene Glycol (Miralax) 17 gm HSPRN PRN ORAL Constipation 04/29/18 19:30 05/29/18 19:29 Quetiapine Fumarate (SEROquel) 50 mg Q8HR ORAL 04/29/18 22:00 05/29/18 21:59 05/04/18 05:56 Tamsulosin HCl (Flomax) 0.4 mg BEDTIME ORAL 04/29/18 21:00 05/29/18 20:59 05/03/18 21:41 Zolpidem Tartrate (Ambien) 5 mg HSPRN PRN ORAL Insomnia 04/29/18 19:30 05/06/18 19:29 04/29/18 23:38 Janet Rowland M.D. May 04, 2018 13:40
--- NOTE | 2018-05-04 18:59 | Internal Med Progress Note ---
Subjective Date of Service: May 04, 2018 Physician Name Alton Marshall Attending Physician Robni Wright MD Current Medications Medications (Trade) Dose Ordered Sig/Lucie Route PRN Reason Start Time Stop Time Status Last Admin Dose Admin Acetaminophen (Tylenol) 650 mg Q4H PRN ORAL fever 04/29/18 19:30 05/29/18 19:29 Al Hydroxide/Mg Hydroxide (Mylanta II) 30 ml Q6H PRN ORAL dyspepsia 04/29/18 19:30 05/29/18 19:29 Dextrose 1,000 ml @ 150 mls/hr Q6H40M IV 04/29/18 19:30 05/29/18 19:29 05/04/18 15:26 Dextrose (Dextrose 50%) 25 ml STAT PRN IV Hypoglycemia 04/29/18 19:30 05/29/18 19:29 Dextrose (Dextrose 50%) 50 ml STAT PRN IV Hypoglycemia 04/29/18 19:45 05/29/18 19:44 Haloperidol (Haldol) 5 mg Q4H PRN ORAL Agitation 04/29/18 19:45 05/29/18 19:29 05/04/18 17:35 Lorazepam (Ativan 2mg/ml 1ml) 1 mg Q4H PRN IV For Anxiety 05/04/18 18:41 05/10/18 18:40 Metoprolol Tartrate (Lopressor) 25 mg Q12HR ORAL 04/29/18 21:00 05/29/18 20:59 05/04/18 09:56 Mirtazapine (Remeron) 15 mg BEDTIME ORAL 04/29/18 21:00 05/29/18 20:59 05/03/18 21:42 Morphine Sulfate (Morphine Sulfate) 1 mg Q4H PRN IVP For Pain 04/29/18 19:30 05/06/18 19:29 04/30/18 18:36 Ondansetron HCl (Zofran) 4 mg Q6H PRN IVP Nausea & Vomiting 04/29/18 19:30 05/29/18 19:29 Piperacillin Sod/ Tazobactam Sod 3.375 gm/Dextrose 110 ml @ 27.5 mls/hr EVERY 8 HOURS IVPB 05/02/18 14:00 05/07/18 13:59 05/04/18 17:00 Polyethylene Glycol (Miralax) 17 gm HSPRN PRN ORAL Constipation 04/29/18 19:30 05/29/18 19:29 Quetiapine Fumarate (SEROquel) 50 mg Q8HR ORAL 04/29/18 22:00 05/29/18 21:59 05/04/18 15:40 Tamsulosin HCl (Flomax) 0.4 mg BEDTIME ORAL 04/29/18 21:00 05/29/18 20:59 05/03/18 21:41 Zolpidem Tartrate (Ambien) 5 mg HSPRN PRN ORAL Insomnia 04/29/18 19:30 05/06/18 19:29 04/29/18 23:38 Allergies: Uncoded Allergies: anesthesia (Allergy, Unknown, 07/04/14) ROS Limited/Unobtainable: Yes Subjective 67 YO M admitted for generalized weakness. Now UTI. Cover for Int Paul-Dr Wright Objective Last Vital Signs Date Time Temp Pulse Resp B/P (MAP) Pulse Ox O2 Delivery O2 Flow Rate FiO2 05/04/18 12:00 97.4 91 14 106/75 (85) 98 97.4 91 05/04/18 08:10 Room Air Laboratory Tests Test 05/04/18 08:45 Sodium Level 140 MMOL/L (136-145) Potassium Level 3.8 MMOL/L (3.5-5.1) Chloride Level 106 MMOL/L (98-107) Carbon Dioxide Level 26 MMOL/L (21-32) Anion Gap 9 mmol/L (5-15) Blood Urea Nitrogen 12 mg/dL (7-18) Creatinine 1.8 MG/DL (0.55-1.30) H Estimat Glomerular Filtration Rate 45.7 mL/min (>60) Glucose Level 102 MG/DL (74-106) Calcium Level 9.0 MG/DL (8.5-10.1) Intake and Output 05/03/18 05/04/18 19:00 07:00 Intake Total 100 ml 1187.5 ml Output Total 200 ml Balance -100 ml 1187.5 ml Intake Oral 100 ml IV Total 1187.5 ml Output Urine Total 200 ml # Voids 3 3 # Bowel Movements 2 Objective General Appearance: alert, mild distress, thin EENT: PERRL/EOMI, normal ENT inspection Neck: non-tender, normal alignment, supple, normal inspection Cardiovascular: normal peripheral pulses, normal rate, regular rhythm, no gallop/murmur, no JVD Respiratory/Chest: chest wall non-tender, lungs clear, normal breath sounds, no respiratory distress, no accessory muscle use Abdomen: normal bowel sounds, non tender, soft, no organomegaly, no mass Extremities: normal range of motion 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 (2) HTN (hypertension) Assessment & Plan: Continue metoprolol (3) Hepatitis C (4) Cerebral vascular disease (5) UTI (urinary tract infection) Assessment & Plan: ESBL E. Coli. Continue zosyn per ID. (6) Weakness (7) Prostate cancer (8) Agitation Assessment & Plan: See psych eval Status: not improved Alton Marshall MD May 04, 2018 18:59
--- NOTE | 2018-05-04 19:24 | General Progress Note ---
Assessment/Plan Assessment/Plan Dementia with behavioral dist encephalopathy seroquel prn haldol prn remeron Subjective Date patient seen: May 04, 2018 Neurologic/Psychiatric: Reports: anxiety, depressed, emotional problems Allergies: Uncoded Allergies: anesthesia (Allergy, Unknown, 07/04/14) Subjective in restraint calmer however has episodes of agitation Objective Last 24 Hour Vital Signs Date Time Temp Pulse Resp B/P (MAP) Pulse Ox O2 Delivery O2 Flow Rate FiO2 05/04/18 12:00 97.4 91 14 106/75 (85) 98 97.4 91 05/04/18 09:56 85 132/70 05/04/18 08:55 97.1 85 20 132/70 (90) 97 97.1 85 05/04/18 08:10 Room Air 05/04/18 08:00 97.1 85 20 132/70 (90) 98 97.1 05/04/18 04:00 98.0 64 18 108/67 (81) 97 98.0 64 05/04/18 00:00 98.1 82 20 133/88 (103) 97 98.1 82 05/03/18 21:41 89 127/82 05/03/18 21:00 Room Air 05/03/18 20:00 98.8 89 17 127/82 (97) 96 98.8 89 Intake and Output 05/03/18 05/04/18 19:00 07:00 Intake Total 100 ml 1187.5 ml Output Total 200 ml Balance -100 ml 1187.5 ml Intake Oral 100 ml IV Total 1187.5 ml Output Urine Total 200 ml # Voids 3 3 # Bowel Movements 2 Laboratory Tests 05/04/18 08:45: Sodium Level 140, Potassium Level 3.8, Chloride Level 106, Carbon Dioxide Level 26, Anion Gap 9, Blood Urea Nitrogen 12, Creatinine 1.8H, Estimat Glomerular Filtration Rate 45.7, Glucose Level 102, Calcium Level 9.0 Height (Feet): 5 Height (Inches): 10.00 Weight (Pounds): 140 General Appearance: no apparent distress, alert, agitated Mckenna Bermudez MD May 04, 2018 19:24
[2018-05-04 20:00] VITALS: BP 115/87
[2018-05-04] MEDS: Tamsulosin 0.4mg cap ORAL SCH (21:07)
[2018-05-05] VITALS: BP 120/72
[2018-05-05 04:00] VITALS: BP 119/75
[2018-05-05] MEDS: Piperacillin/Tazobactam 3.375 GM in D5W 110 ML IVPB SCH ×3 (05:07→21:38)
--- NOTE | 2018-05-05 07:56 | Nephrology Progress Note ---
Assessment/Plan Assessment 1. Hypernatremia. 2. hypokalemia 3. Acute renal failure. 4. Chronic kidney disease. 5. Recurrent pyelonephritis complicated with nephrolithiasis and right hydronephrosis. 6. Failure to thrive. Plan plan to replace k continue current iv monitoring renal function avoid NSIAD nutritional support Subjective Subjective NAD no events overnight Objective Objective Last 24 Hour Vital Signs Date Time Temp Pulse Resp B/P (MAP) Pulse Ox O2 Delivery O2 Flow Rate FiO2 05/05/18 04:00 97.5 73 17 119/75 (90) 96 97.5 73 05/05/18 00:00 97.9 80 17 120/72 (88) 95 97.9 80 05/04/18 21:08 72 115/87 05/04/18 21:00 Room Air 05/04/18 20:00 97.7 72 17 115/87 (96) 97 97.7 72 05/04/18 12:00 97.4 91 14 106/75 (85) 98 97.4 91 05/04/18 09:56 85 132/70 05/04/18 08:55 97.1 85 20 132/70 (90) 97 97.1 85 05/04/18 08:10 Room Air 05/04/18 08:00 97.1 85 20 132/70 (90) 98 97.1 Intake and Output 05/04/18 05/05/18 19:00 07:00 Intake Total 650 ml 1010.0 ml Balance 650 ml 1010.0 ml Intake Oral 500 ml IV Total 150 ml 1010.0 ml # Voids 1 2 # Bowel Movements 1 1 Laboratory Tests 05/04/18 08:45: Sodium Level 140, Potassium Level 3.8, Chloride Level 106, Carbon Dioxide Level 26, Anion Gap 9, Blood Urea Nitrogen 12, Creatinine 1.8H, Estimat Glomerular Filtration Rate 45.7, Glucose Level 102, Calcium Level 9.0 05/05/18 00:22: Stool Occult Blood [Pending] Height (Feet): 5 Height (Inches): 10.00 Weight (Pounds): 140 Objective HEAD AND NECK: No JVP. No LAD. No thyromegaly. Extraocular movement is intact. Pupils are reactive to light and accommodation. LUNGS: Clear to auscultation. CARDIAC: Regular rate and rhythm. S1 and S2. No murmur. No rub. ABDOMEN: Soft, nontender, and nondistended. No organomegaly. EXTREMITIES: No edema. No clubbing. No cyanosis. Pamela Davila MD May 05, 2018 07:56
[2018-05-05 08:00] VITALS: BP 123/77
[2018-05-05] MEDS: Metoprolol 25mg tab ORAL SCH ×2 (08:58→21:38)
[2018-05-05] MEDS: LORazepam Inj 2mg/ml 1ml IV PRN ×3 (08:58→23:16)
[2018-05-05 12:00] VITALS: BP 131/94
--- NOTE | 2018-05-05 12:31 | Pulmonology Progress Note ---
Assessment/Plan Problems: (1) ATN (acute tubular necrosis) (2) Acute encephalopathy (3) Dementia (4) Prostate cancer (5) Paranoia (6) Frequent falls Assessment/Plan improving eating better still has auditory hallucination check electrolytes, creatinine slowly decreasing all reviewed, including meds and notes pt/ot doesn't want the previous detention case management consult Subjective ROS Limited/Unobtainable: No Constitutional: Reports: no symptoms HEENT: Repors: no symptoms Allergies: Uncoded Allergies: anesthesia (Allergy, Unknown, 07/04/14) Objective Last 24 Hour Vital Signs Date Time Temp Pulse Resp B/P (MAP) Pulse Ox O2 Delivery O2 Flow Rate FiO2 05/05/18 08:58 94 123/77 05/05/18 08:10 Room Air 05/05/18 08:00 97.8 94 123/77 (92) 97.8 94 05/05/18 04:00 97.5 73 17 119/75 (90) 96 97.5 73 05/05/18 00:00 97.9 80 17 120/72 (88) 95 97.9 80 05/04/18 21:08 72 115/87 05/04/18 21:00 Room Air 05/04/18 20:00 97.7 72 17 115/87 (96) 97 97.7 72 Intake and Output 05/04/18 05/05/18 19:00 07:00 Intake Total 650 ml 1010.0 ml Balance 650 ml 1010.0 ml Intake Oral 500 ml IV Total 150 ml 1010.0 ml # Voids 1 2 # Bowel Movements 1 1 General Appearance: cachetic HEENT: normocephalic Respiratory/Chest: chest wall non-tender, lungs clear Cardiovascular: normal peripheral pulses, normal rate Abdomen: normal bowel sounds, soft, non tender Genitourinary: normal external genitalia Extremities: no clubbing Laboratory Tests 05/05/18 00:22: Stool Occult Blood Positive Current Medications Medications (Trade) Dose Ordered Sig/Lucie Route PRN Reason Start Time Stop Time Status Last Admin Dose Admin Acetaminophen (Tylenol) 650 mg Q4H PRN ORAL fever 04/29/18 19:30 05/29/18 19:29 Al Hydroxide/Mg Hydroxide (Mylanta II) 30 ml Q6H PRN ORAL dyspepsia 04/29/18 19:30 05/29/18 19:29 Dextrose 1,000 ml @ 150 mls/hr Q6H40M IV 04/29/18 19:30 05/29/18 19:29 05/04/18 15:26 Dextrose (Dextrose 50%) 25 ml STAT PRN IV Hypoglycemia 04/29/18 19:30 05/29/18 19:29 Dextrose (Dextrose 50%) 50 ml STAT PRN IV Hypoglycemia 04/29/18 19:45 05/29/18 19:44 Haloperidol (Haldol) 5 mg Q4H PRN ORAL Agitation 04/29/18 19:45 05/29/18 19:29 05/05/18 08:58 Lorazepam (Ativan 2mg/ml 1ml) 1 mg Q4H PRN IV For Anxiety 05/04/18 18:41 05/10/18 18:40 05/05/18 08:58 Metoprolol Tartrate (Lopressor) 25 mg Q12HR ORAL 04/29/18 21:00 05/29/18 20:59 05/05/18 08:58 Mirtazapine (Remeron) 15 mg BEDTIME ORAL 04/29/18 21:00 05/29/18 20:59 05/04/18 21:08 Morphine Sulfate (Morphine Sulfate) 1 mg Q4H PRN IVP For Pain 04/29/18 19:30 05/06/18 19:29 04/30/18 18:36 Ondansetron HCl (Zofran) 4 mg Q6H PRN IVP Nausea & Vomiting 04/29/18 19:30 05/29/18 19:29 Piperacillin Sod/ Tazobactam Sod 3.375 gm/Dextrose 110 ml @ 27.5 mls/hr EVERY 8 HOURS IVPB 05/02/18 14:00 05/07/18 13:59 05/05/18 05:07 Polyethylene Glycol (Miralax) 17 gm HSPRN PRN ORAL Constipation 04/29/18 19:30 05/29/18 19:29 Quetiapine Fumarate (SEROquel) 50 mg Q8HR ORAL 04/29/18 22:00 05/29/18 21:59 05/05/18 05:10 Tamsulosin HCl (Flomax) 0.4 mg BEDTIME ORAL 04/29/18 21:00 05/29/18 20:59 05/04/18 21:07 Zolpidem Tartrate (Ambien) 5 mg HSPRN PRN ORAL Insomnia 04/29/18 19:30 05/06/18 19:29 04/29/18 23:38 German Mooney MD May 05, 2018 12:31
--- NOTE | 2018-05-05 13:01 | Infectious Diseases Prog Note ---
Assessment/Plan Assessment/Plan Assessment: Pyuria, probable UTI vs colonization -u/a wbc 30-40,nit +, leuk +3; ucx >100k ESBL Ecoli (S Zosyn) Afebrile No leukocytosis Hx of Recurrent UTI -01/2018: -u/a wbc 30-40, nit +, leuk +3; ucx >100K ESBL E.coli (S zozyn, nitrofurantoin, bactrim, ertapenem;R levo); repeat u/a 01/08 wbc tntc, nit+, leuk +3; ucx 50-60k E.fecalis (S vanco, amp; R levo) -10/2017: -u/a WBC TNTC- ucx >100k E. fecalis (S Vanco, amp), 30-40k mixed gram positive growth Chronic R ureterolithiasis and K staghorn calculus -CT abd/p 01/2018 : Distal right ureteral calculi, stable over multiple earlier studies dating back to 09/20/2014, again demonstrated. There is persistent right hydronephrosis and right renal atrophy. Nonobstructive right lower pole renal calculi are again demonstrated. Large left renal staghorn calculus, also present as far back as 2013. Mild right hydronephrosis but no ureteral calculi or hydroureter. Other nonobstructive left lower pole renal calculi are also evident. Gas bubbles within the left renal collecting system and bladder, markedly decreased from the previous 2016 exam. Uncertain as to whether these represent bladder instrumentation with reflux into the left renal collecting system, versus artifact due to infection with gas-forming organism. Correlate with clinical and laboratory findings. The bladder wall is also mildly thickened , unchanged from previously. Cystitis a possibility. Left renal cyst, also previously described. Cholelithiasis, new since prior study. Left basilar dependent pulmonary parenchymal atelectasis. Evidence of COPD, with hyperinflation and a single small bulla. Evidence of prior prostatectomy Chronic Hep C infection - hEp C VL 42K 10/2017 -Hep A Imm, Hep B Ab neg, HIV Neg History of recurrent urinary tract infection. History of osteomyelitis of the second left toe and distal phalanx. Dehydration / HAMZAH improving Generalized weakness -CT head: No acute intracranial bleed, mass effect or edema. Moderate atrophy of the brain. Evidence of chronic small vessel disease involving white matter tracts. History of prostate cancer. History of renal stone and CKD. Dementia HTN CVA hx IVDA Plan: -Continue IV zosyn # 4/5 for possible ESBL UTI - 05/02 Sp Ceftriaxone d# 3 -01/06 SP Bactrim DS 1 tab bid #07/29 for possible ESBL UTI and PO Amoxicillin #5/5 for enterococcal coverage -01/10 SP Ertapenem #4 -01/06 SP IV Vancomycin #2 -01/05 SP Ceftriaxone x1 -11/12/17 SP PO ampicillin #14 -f/u cx -Monitor CBC/CMP, temperatures -aspiration precautions Subjective Allergies: Uncoded Allergies: anesthesia (Allergy, Unknown, 07/04/14) Subjective afebrile no leukocytosis Objective Vital Signs Last 24 Hour Vital Signs Date Time Temp Pulse Resp B/P (MAP) Pulse Ox O2 Delivery O2 Flow Rate FiO2 05/05/18 12:00 98.2 73 16 131/94 (106) 98.2 73 05/05/18 08:58 94 123/77 05/05/18 08:10 Room Air 05/05/18 08:00 97.8 94 123/77 (92) 97.8 94 05/05/18 04:00 97.5 73 17 119/75 (90) 96 97.5 73 05/05/18 00:00 97.9 80 17 120/72 (88) 95 97.9 80 05/04/18 21:08 72 115/87 05/04/18 21:00 Room Air 05/04/18 20:00 97.7 72 17 115/87 (96) 97 97.7 72 Height (Feet): 5 Height (Inches): 10.00 Weight (Pounds): 140 Objective HEENT: anicteric Respiratory/Chest: no respiratory distress Cardiovascular: regularly irregular Abdomen: non distended Laboratory Tests Test 05/05/18 00:22 Stool Occult Blood Positive (NEGATIVE) Current Medications Medications (Trade) Dose Ordered Sig/Lucie Route PRN Reason Start Time Stop Time Status Last Admin Dose Admin Acetaminophen (Tylenol) 650 mg Q4H PRN ORAL fever 04/29/18 19:30 05/29/18 19:29 Al Hydroxide/Mg Hydroxide (Mylanta II) 30 ml Q6H PRN ORAL dyspepsia 04/29/18 19:30 05/29/18 19:29 Dextrose (Dextrose 50%) 25 ml STAT PRN IV Hypoglycemia 04/29/18 19:30 05/29/18 19:29 Dextrose (Dextrose 50%) 50 ml STAT PRN IV Hypoglycemia 04/29/18 19:45 05/29/18 19:44 Haloperidol (Haldol) 5 mg Q4H PRN ORAL Agitation 04/29/18 19:45 05/29/18 19:29 05/05/18 08:58 Lorazepam (Ativan 2mg/ml 1ml) 1 mg Q4H PRN IV For Anxiety 05/04/18 18:41 05/10/18 18:40 05/05/18 08:58 Metoprolol Tartrate (Lopressor) 25 mg Q12HR ORAL 04/29/18 21:00 05/29/18 20:59 05/05/18 08:58 Mirtazapine (Remeron) 15 mg BEDTIME ORAL 04/29/18 21:00 05/29/18 20:59 05/04/18 21:08 Morphine Sulfate (Morphine Sulfate) 1 mg Q4H PRN IVP For Pain 04/29/18 19:30 05/06/18 19:29 04/30/18 18:36 Ondansetron HCl (Zofran) 4 mg Q6H PRN IVP Nausea & Vomiting 04/29/18 19:30 05/29/18 19:29 Piperacillin Sod/ Tazobactam Sod 3.375 gm/Dextrose 110 ml @ 27.5 mls/hr EVERY 8 HOURS IVPB 05/02/18 14:00 05/07/18 13:59 05/05/18 05:07 Polyethylene Glycol (Miralax) 17 gm HSPRN PRN ORAL Constipation 04/29/18 19:30 05/29/18 19:29 Quetiapine Fumarate (SEROquel) 50 mg Q8HR ORAL 04/29/18 22:00 05/29/18 21:59 05/05/18 05:10 Tamsulosin HCl (Flomax) 0.4 mg BEDTIME ORAL 04/29/18 21:00 05/29/18 20:59 05/04/18 21:07 Zolpidem Tartrate (Ambien) 5 mg HSPRN PRN ORAL Insomnia 04/29/18 19:30 7/18/18 19:29 04/29/18 23:38 Janet Rowland M.D. May 05, 2018 13:01
[2018-05-05 16:00] VITALS: BP 165/97
--- NOTE | 2018-05-05 18:55 | Internal Med Progress Note ---
Subjective Date of Service: May 05, 2018 Physician Name Alton Marshall Attending Physician Robin Wright MD Current Medications Medications (Trade) Dose Ordered Sig/Lucie Route PRN Reason Start Time Stop Time Status Last Admin Dose Admin Acetaminophen (Tylenol) 650 mg Q4H PRN ORAL fever 04/29/18 19:30 05/29/18 19:29 Al Hydroxide/Mg Hydroxide (Mylanta II) 30 ml Q6H PRN ORAL dyspepsia 04/29/18 19:30 05/29/18 19:29 Dextrose (Dextrose 50%) 25 ml STAT PRN IV Hypoglycemia 04/29/18 19:30 05/29/18 19:29 Dextrose (Dextrose 50%) 50 ml STAT PRN IV Hypoglycemia 04/29/18 19:45 05/29/18 19:44 Haloperidol (Haldol) 5 mg Q4H PRN ORAL Agitation 04/29/18 19:45 05/29/18 19:29 05/05/18 18:29 Lorazepam (Ativan 2mg/ml 1ml) 1 mg Q4H PRN IV For Anxiety 05/04/18 18:41 05/10/18 18:40 05/05/18 18:29 Metoprolol Tartrate (Lopressor) 25 mg Q12HR ORAL 04/29/18 21:00 05/29/18 20:59 05/05/18 08:58 Mirtazapine (Remeron) 15 mg BEDTIME ORAL 04/29/18 21:00 05/29/18 20:59 05/04/18 21:08 Morphine Sulfate (Morphine Sulfate) 1 mg Q4H PRN IVP For Pain 04/29/18 19:30 05/06/18 19:29 04/30/18 18:36 Olanzapine (ZyPREXA) 10 mg QHS ORAL 05/05/18 21:00 06/04/18 20:59 Ondansetron HCl (Zofran) 4 mg Q6H PRN IVP Nausea & Vomiting 04/29/18 19:30 05/29/18 19:29 Piperacillin Sod/ Tazobactam Sod 3.375 gm/Dextrose 110 ml @ 27.5 mls/hr EVERY 8 HOURS IVPB 05/02/18 14:00 05/07/18 13:59 05/05/18 05:07 Polyethylene Glycol (Miralax) 17 gm HSPRN PRN ORAL Constipation 04/29/18 19:30 05/29/18 19:29 Tamsulosin HCl (Flomax) 0.4 mg BEDTIME ORAL 04/29/18 21:00 05/29/18 20:59 05/04/18 21:07 Zolpidem Tartrate (Ambien) 5 mg HSPRN PRN ORAL Insomnia 04/29/18 19:30 05/06/18 19:29 04/29/18 23:38 Allergies: Coded Allergies: NO KNOWN ALLERGIES (Verified Allergy, Unknown, 05/05/18) ROS Limited/Unobtainable: Yes Subjective 67 YO M admitted for generalized weakness. Now UTI. Still confused. Cover for Int Med-Dr Wright Objective Last Vital Signs Date Time Temp Pulse Resp B/P (MAP) Pulse Ox O2 Delivery O2 Flow Rate FiO2 05/05/18 16:00 97.6 76 20 165/97 (119) 97.6 05/05/18 08:10 Room Air 05/05/18 04:00 96 Laboratory Tests Test 05/05/18 00:22 Stool Occult Blood Positive (NEGATIVE) Intake and Output 05/04/18 05/05/18 19:00 07:00 Intake Total 650 ml 1010.0 ml Balance 650 ml 1010.0 ml Intake Oral 500 ml IV Total 150 ml 1010.0 ml # Voids 1 2 # Bowel Movements 1 1 Objective General Appearance: alert, mild distress, thin EENT: PERRL/EOMI, normal ENT inspection Neck: non-tender, normal alignment, supple, normal inspection Cardiovascular: normal peripheral pulses, normal rate, regular rhythm, no gallop/murmur, no JVD Respiratory/Chest: chest wall non-tender, lungs clear, normal breath sounds, no respiratory distress, no accessory muscle use Abdomen: normal bowel sounds, non tender, soft, no organomegaly, no mass Extremities: normal range of motion Neurologic: electric motorman II-XII 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 (2) HTN (hypertension) Assessment & Plan: Continue metoprolol (3) Hepatitis C (4) Cerebral vascular disease (5) UTI (urinary tract infection) Assessment & Plan: ESBL E. Coli. Continue zosyn per ID. (6) Weakness (7) Prostate cancer (8) Agitation Assessment & Plan: See psych eval Assessment/Plan Discharge plan: [facility] Alton Marshall MD May 05, 2018 18:55
[2018-05-05 20:00] VITALS: BP 115/76
[2018-05-05] MEDS: Tamsulosin 0.4mg cap ORAL SCH (21:38)
[2018-05-05] MEDS: OLANZapine 10mg tab ORAL SCH (21:38)
--- NOTE | 2018-05-05 23:36 | General Progress Note ---
Assessment/Plan Assessment/Plan Dementia with behavioral dist encephalopathy zyprexa qhs haldol prn remeron Subjective Date patient seen: May 05, 2018 Allergies: Coded Allergies: NO KNOWN ALLERGIES (Verified Allergy, Unknown, 05/05/18) Subjective in restraint calmer however has episodes of agitation Objective Last 24 Hour Vital Signs Date Time Temp Pulse Resp B/P (MAP) Pulse Ox O2 Delivery O2 Flow Rate FiO2 05/05/18 21:38 90 115/76 05/05/18 21:00 Room Air 05/05/18 20:00 98.0 90 18 115/76 (89) 100 98.0 05/05/18 16:00 97.6 76 20 165/97 (119) 97.6 05/05/18 12:00 98.2 73 16 131/94 (106) 98.2 73 05/05/18 08:58 94 123/77 05/05/18 08:10 Room Air 05/05/18 08:00 97.8 94 123/77 (92) 97.8 94 05/05/18 04:00 97.5 73 17 119/75 (90) 96 97.5 73 05/05/18 00:00 97.9 80 17 120/72 (88) 95 97.9 80 Intake and Output 05/04/18 05/05/18 19:00 07:00 Intake Total 650 ml 1010.0 ml Balance 650 ml 1010.0 ml Intake Oral 500 ml IV Total 150 ml 1010.0 ml # Voids 1 2 # Bowel Movements 1 1 Laboratory Tests 05/05/18 00:22: Stool Occult Blood Positive Height (Feet): 5 Height (Inches): 10.00 Weight (Pounds): 140 Mckenna Bermudez MD May 05, 2018 23:36
[2018-05-06] VITALS: BP 119/72
[2018-05-06 04:00] VITALS: BP 124/84
[2018-05-06] MEDS: LORazepam Inj 2mg/ml 1ml IV PRN ×4 (05:19→22:57)
[2018-05-06] MEDS: Piperacillin/Tazobactam 3.375 GM in D5W 110 ML IVPB SCH ×3 (05:20→21:14)
[2018-05-06 07:03] LABS: BASOPHILS % (AUTO) 0.7 % (0.0-2.0); EOSINOPHILS % (AUTO) 2.6 % (0.0-3.0); HEMATOCRIT 37.8 % (42.0-52.0); HEMOGLOBIN 12.8 G/DL (14.2-18.0); LYMPHOCYTES % (AUTO) 53.4 % (20.0-45.0); MEAN CORPUSCULAR VOLUME 91 FL (80-99); MONOCYTES % (AUTO) 10.3 % (1.0-10.0); PLATELET COUNT 224 K/UL (150-450); RED BLOOD COUNT 4.16 M/UL (4.70-6.10); RED CELL DISTRIBUTION WIDTH 12.5 % (11.6-14.8); WHITE BLOOD COUNT 7.2 K/UL (4.8-10.8)
[2018-05-06 07:13] LABS: ANION GAP 7 mmol/L (5-15); BLOOD UREA NITROGEN 10 mg/dL (7-18); CARBON DIOXIDE 26 MMOL/L (21-32); CHLORIDE 109 MMOL/L (98-107); CREATININE 1.7 MG/DL (0.55-1.30); SODIUM 142 MMOL/L (136-145)
[2018-05-06 08:00] VITALS: BP 126/84
[2018-05-06] MEDS ORDERED: NS 275ml ONE (08:57)
[2018-05-06] MEDS: Metoprolol 25mg tab ORAL SCH ×2 (09:00→21:00)
--- NOTE | 2018-05-06 11:55 | General Progress Note ---
Assessment/Plan Assessment/Plan Dementia with behavioral dist encephalopathy zyprexa qhs haldol prn remeron Subjective Date patient seen: May 06, 2018 Neurologic/Psychiatric: Reports: anxiety Allergies: Coded Allergies: NO KNOWN ALLERGIES (Verified Allergy, Unknown, 05/05/18) Subjective in restraint agitated he was given Ativan Objective Last 24 Hour Vital Signs Date Time Temp Pulse Resp B/P (MAP) Pulse Ox O2 Delivery O2 Flow Rate FiO2 05/06/18 09:00 Room Air 05/06/18 09:00 68 124/84 05/06/18 08:00 97.5 74 19 126/84 (98) 74 97.5 05/06/18 04:00 97.8 68 17 124/84 (97) 97 97.8 05/06/18 00:00 98.2 92 18 119/72 (88) 96 98.2 05/05/18 21:38 90 115/76 05/05/18 21:00 Room Air 05/05/18 20:00 98.0 90 18 115/76 (89) 100 98.0 05/05/18 16:00 97.6 76 20 165/97 (119) 97.6 05/05/18 12:00 98.2 73 16 131/94 (106) 98.2 73 Intake and Output 05/05/18 05/06/18 19:00 07:00 Intake Total 257.5 ml Balance 257.5 ml Intake Oral 120 ml IV Total 137.5 ml # Voids 2 3 # Bowel Movements 1 1 Laboratory Tests 05/06/18 05:10: White Blood Count 7.2, Red Blood Count 4.16L, Hemoglobin 12.8L, Hematocrit 37.8L , Mean Corpuscular Volume 91, Mean Corpuscular Hemoglobin 30.7, Mean Corpuscular Hemoglobin Concent 33.8, Red Cell Distribution Width 12.5, Platelet Count 224, Mean Platelet Volume 6.7, Neutrophils (%) (Auto) 33.0L, Lymphocytes ( %) (Auto) 53.4H, Monocytes (%) (Auto) 10.3H, Eosinophils (%) (Auto) 2.6, Basophils (%) (Auto) 0.7, Sodium Level 142, Potassium Level 4.0, Chloride Level 109H, Carbon Dioxide Level 26, Anion Gap 7, Blood Urea Nitrogen 10, Creatinine 1.7H, Estimat Glomerular Filtration Rate 48.8, Glucose Level 79, Calcium Level 9.0 Height (Feet): 5 Height (Inches): 10.00 Weight (Pounds): 139 General Appearance: no apparent distress, alert, confused, agitated Mckenna Bermudez MD May 06, 2018 11:55
[2018-05-06 12:00] VITALS: BP 128/87
--- NOTE | 2018-05-06 12:42 | Infectious Diseases Prog Note ---
Assessment/Plan Assessment/Plan Assessment: Pyuria, probable UTI vs colonization -u/a wbc 30-40,nit +, leuk +3; ucx >100k ESBL Ecoli (S Zosyn) Afebrile No leukocytosis Hx of Recurrent UTI -01/2018: -u/a wbc 30-40, nit +, leuk +3; ucx >100K ESBL E.coli (S zozyn, nitrofurantoin, bactrim, ertapenem;R levo); repeat u/a 01/08 wbc tntc, nit+, leuk +3; ucx 50-60k E.fecalis (S vanco, amp; R levo) -10/2017: -u/a WBC TNTC- ucx >100k E. fecalis (S Vanco, amp), 30-40k mixed gram positive growth Chronic R ureterolithiasis and K staghorn calculus -CT abd/p 01/2018 : Distal right ureteral calculi, stable over multiple earlier studies dating back to 09/20/2014, again demonstrated. There is persistent right hydronephrosis and right renal atrophy. Nonobstructive right lower pole renal calculi are again demonstrated. Large left renal staghorn calculus, also present as far back as 2013. Mild right hydronephrosis but no ureteral calculi or hydroureter. Other nonobstructive left lower pole renal calculi are also evident. Gas bubbles within the left renal collecting system and bladder, markedly decreased from the previous 2016 exam. Uncertain as to whether these represent bladder instrumentation with reflux into the left renal collecting system, versus artifact due to infection with gas-forming organism. Correlate with clinical and laboratory findings. The bladder wall is also mildly thickened , unchanged from previously. Cystitis a possibility. Left renal cyst, also previously described. Cholelithiasis, new since prior study. Left basilar dependent pulmonary parenchymal atelectasis. Evidence of COPD, with hyperinflation and a single small bulla. Evidence of prior prostatectomy Chronic Hep C infection - hEp C VL 42K 10/2017 -Hep A Imm, Hep B Ab neg, HIV Neg History of recurrent urinary tract infection. History of osteomyelitis of the second left toe and distal phalanx. Dehydration / HAMZAH improving Generalized weakness -CT head: No acute intracranial bleed, mass effect or edema. Moderate atrophy of the brain. Evidence of chronic small vessel disease involving white matter tracts. History of prostate cancer. History of renal stone and CKD. Dementia HTN CVA hx IVDA Plan: -Continue IV zosyn # 5/5 for possible ESBL UTI - 05/02 Sp Ceftriaxone d# 3 -01/06 SP Bactrim DS 1 tab bid #07/29 for possible ESBL UTI and PO Amoxicillin #5/5 for enterococcal coverage -01/10 SP Ertapenem #4 -01/06 SP IV Vancomycin #2 -01/05 SP Ceftriaxone x1 -11/12/17 SP PO ampicillin #14 -f/u cx -Monitor CBC/CMP, temperatures -aspiration precautions Subjective Allergies: Coded Allergies: NO KNOWN ALLERGIES (Verified Allergy, Unknown, 05/05/18) Subjective afebrile no leukocytosis Objective Vital Signs Last 24 Hour Vital Signs Date Time Temp Pulse Resp B/P (MAP) Pulse Ox O2 Delivery O2 Flow Rate FiO2 05/06/18 12:00 97.9 68 20 128/87 (101) 99 97.9 05/06/18 09:00 Room Air 05/06/18 09:00 68 124/84 05/06/18 08:00 97.5 74 19 126/84 (98) 98 97.5 05/06/18 08:00 97.5 74 19 126/84 (98) 74 97.5 05/06/18 04:00 97.8 68 17 124/84 (97) 97 97.8 05/06/18 00:00 98.2 92 18 119/72 (88) 96 98.2 05/05/18 21:38 90 115/76 05/05/18 21:00 Room Air 05/05/18 20:00 98.0 90 18 115/76 (89) 100 98.0 05/05/18 16:00 97.6 76 20 165/97 (119) 97.6 Height (Feet): 5 Height (Inches): 10.00 Weight (Pounds): 139 Objective HEENT: anicteric Respiratory/Chest: no respiratory distress Cardiovascular: regularly irregular Abdomen: non distended Laboratory Tests Test 05/06/18 05:10 White Blood Count 7.2 K/UL (4.8-10.8) Red Blood Count 4.16 M/UL (4.70-6.10) L Hemoglobin 12.8 G/DL (14.2-18.0) L Hematocrit 37.8 % (42.0-52.0) L Mean Corpuscular Volume 91 FL (80-99) Mean Corpuscular Hemoglobin 30.7 PG (27.0-31.0) Mean Corpuscular Hemoglobin Concent 33.8 G/DL (32.0-36.0) Red Cell Distribution Width 12.5 % (11.6-14.8) Platelet Count 224 K/UL (150-450) Mean Platelet Volume 6.7 FL (6.5-10.1) Neutrophils (%) (Auto) 33.0 % (45.0-75.0) L Lymphocytes (%) (Auto) 53.4 % (20.0-45.0) H Monocytes (%) (Auto) 10.3 % (1.0-10.0) H Eosinophils (%) (Auto) 2.6 % (0.0-3.0) Basophils (%) (Auto) 0.7 % (0.0-2.0) Sodium Level 142 MMOL/L (136-145) Potassium Level 4.0 MMOL/L (3.5-5.1) Chloride Level 109 MMOL/L (98-107) H Carbon Dioxide Level 26 MMOL/L (21-32) Anion Gap 7 mmol/L (5-15) Blood Urea Nitrogen 10 mg/dL (7-18) Creatinine 1.7 MG/DL (0.55-1.30) H Estimat Glomerular Filtration Rate 48.8 mL/min (>60) Glucose Level 79 MG/DL (74-106) Calcium Level 9.0 MG/DL (8.5-10.1) Current Medications Medications (Trade) Dose Ordered Sig/Lucie Route PRN Reason Start Time Stop Time Status Last Admin Dose Admin Acetaminophen (Tylenol) 650 mg Q4H PRN ORAL fever 04/29/18 19:30 05/29/18 19:29 Al Hydroxide/Mg Hydroxide (Mylanta II) 30 ml Q6H PRN ORAL dyspepsia 04/29/18 19:30 05/29/18 19:29 Dextrose (Dextrose 50%) 25 ml STAT PRN IV Hypoglycemia 04/29/18 19:30 05/29/18 19:29 Dextrose (Dextrose 50%) 50 ml STAT PRN IV Hypoglycemia 04/29/18 19:45 05/29/18 19:44 Haloperidol (Haldol) 5 mg Q4H PRN ORAL Agitation 04/29/18 19:45 05/29/18 19:29 05/05/18 18:29 Lorazepam (Ativan 2mg/ml 1ml) 1 mg Q4H PRN IV For Anxiety 05/04/18 18:41 05/10/18 18:40 05/06/18 09:40 Metoprolol Tartrate (Lopressor) 25 mg Q12HR ORAL 04/29/18 21:00 05/29/18 20:59 05/05/18 21:38 Mirtazapine (Remeron) 15 mg BEDTIME ORAL 04/29/18 21:00 05/29/18 20:59 05/05/18 21:37 Morphine Sulfate (Morphine Sulfate) 1 mg Q4H PRN IVP For Pain 04/29/18 19:30 05/06/18 19:29 04/30/18 18:36 Olanzapine (ZyPREXA) 10 mg QHS ORAL 05/05/18 21:00 06/04/18 20:59 05/05/18 21:38 Ondansetron HCl (Zofran) 4 mg Q6H PRN IVP Nausea & Vomiting 04/29/18 19:30 05/29/18 19:29 Piperacillin Sod/ Tazobactam Sod 3.375 gm/Dextrose 110 ml @ 27.5 mls/hr EVERY 8 HOURS IVPB 05/02/18 14:00 05/07/18 13:59 05/06/18 05:20 Polyethylene Glycol (Miralax) 17 gm HSPRN PRN ORAL Constipation 04/29/18 19:30 05/29/18 19:29 Tamsulosin HCl (Flomax) 0.4 mg BEDTIME ORAL 04/29/18 21:00 05/29/18 20:59 05/05/18 21:38 Zolpidem Tartrate (Ambien) 5 mg HSPRN PRN ORAL Insomnia 04/29/18 19:30 05/06/18 19:29 04/29/18 23:38 Janet Rowland M.D. May 06, 2018 12:42
--- NOTE | 2018-05-06 15:40 | Pulmonology Progress Note ---
Assessment/Plan Problems: (1) ATN (acute tubular necrosis) (2) Acute encephalopathy (3) Dementia (4) Prostate cancer (5) Paranoia (6) Frequent falls Assessment/Plan improving eating better still has auditory hallucination check electrolytes, creatinine slowly decreasing all reviewed, including meds and notes pt/ot doesn't want the previous jail case management consult Subjective ROS Limited/Unobtainable: No Constitutional: Reports: no symptoms HEENT: Repors: no symptoms Respiratory: Reports: no symptoms Allergies: Coded Allergies: NO KNOWN ALLERGIES (Verified Allergy, Unknown, 05/05/18) Objective Last 24 Hour Vital Signs Date Time Temp Pulse Resp B/P (MAP) Pulse Ox O2 Delivery O2 Flow Rate FiO2 05/06/18 12:00 97.9 68 20 128/87 (101) 99 97.9 05/06/18 09:00 Room Air 05/06/18 09:00 68 124/84 05/06/18 08:00 97.5 74 19 126/84 (98) 98 97.5 05/06/18 08:00 97.5 74 19 126/84 (98) 74 97.5 05/06/18 04:00 97.8 68 17 124/84 (97) 97 97.8 05/06/18 00:00 98.2 92 18 119/72 (88) 96 98.2 05/05/18 21:38 90 115/76 05/05/18 21:00 Room Air 05/05/18 20:00 98.0 90 18 115/76 (89) 100 98.0 05/05/18 16:00 97.6 76 20 165/97 (119) 97.6 Intake and Output 05/05/18 05/06/18 19:00 07:00 Intake Total 257.5 ml Balance 257.5 ml Intake Oral 120 ml IV Total 137.5 ml # Voids 2 3 # Bowel Movements 1 1 General Appearance: WD/WN HEENT: normocephalic, atraumatic Respiratory/Chest: chest wall non-tender, lungs clear Cardiovascular: normal peripheral pulses, normal rate Abdomen: normal bowel sounds, soft, non tender Extremities: no cyanosis Skin: no rash Laboratory Tests 05/06/18 05:10: White Blood Count 7.2, Red Blood Count 4.16L, Hemoglobin 12.8L, Hematocrit 37.8L , Mean Corpuscular Volume 91, Mean Corpuscular Hemoglobin 30.7, Mean Corpuscular Hemoglobin Concent 33.8, Red Cell Distribution Width 12.5, Platelet Count 224, Mean Platelet Volume 6.7, Neutrophils (%) (Auto) 33.0L, Lymphocytes ( %) (Auto) 53.4H, Monocytes (%) (Auto) 10.3H, Eosinophils (%) (Auto) 2.6, Basophils (%) (Auto) 0.7, Sodium Level 142, Potassium Level 4.0, Chloride Level 109H, Carbon Dioxide Level 26, Anion Gap 7, Blood Urea Nitrogen 10, Creatinine 1.7H, Estimat Glomerular Filtration Rate 48.8, Glucose Level 79, Calcium Level 9.0 Current Medications Medications (Trade) Dose Ordered Sig/Lucie Route PRN Reason Start Time Stop Time Status Last Admin Dose Admin Acetaminophen (Tylenol) 650 mg Q4H PRN ORAL fever 04/29/18 19:30 05/29/18 19:29 Al Hydroxide/Mg Hydroxide (Mylanta II) 30 ml Q6H PRN ORAL dyspepsia 04/29/18 19:30 05/29/18 19:29 Dextrose (Dextrose 50%) 25 ml STAT PRN IV Hypoglycemia 04/29/18 19:30 05/29/18 19:29 Dextrose (Dextrose 50%) 50 ml STAT PRN IV Hypoglycemia 04/29/18 19:45 05/29/18 19:44 Haloperidol (Haldol) 5 mg Q4H PRN ORAL Agitation 04/29/18 19:45 05/29/18 19:29 05/05/18 18:29 Lorazepam (Ativan 2mg/ml 1ml) 1 mg Q4H PRN IV For Anxiety 05/04/18 18:41 05/10/18 18:40 05/06/18 09:40 Metoprolol Tartrate (Lopressor) 25 mg Q12HR ORAL 04/29/18 21:00 05/29/18 20:59 05/05/18 21:38 Mirtazapine (Remeron) 15 mg BEDTIME ORAL 04/29/18 21:00 05/29/18 20:59 05/05/18 21:37 Morphine Sulfate (Morphine Sulfate) 1 mg Q4H PRN IVP For Pain 04/29/18 19:30 05/06/18 19:29 04/30/18 18:36 Olanzapine (ZyPREXA) 10 mg QHS ORAL 05/05/18 21:00 06/04/18 20:59 05/05/18 21:38 Ondansetron HCl (Zofran) 4 mg Q6H PRN IVP Nausea & Vomiting 04/29/18 19:30 05/29/18 19:29 Piperacillin Sod/ Tazobactam Sod 3.375 gm/Dextrose 110 ml @ 27.5 mls/hr EVERY 8 HOURS IVPB 05/02/18 14:00 05/07/18 13:59 05/06/18 13:42 Polyethylene Glycol (Miralax) 17 gm HSPRN PRN ORAL Constipation 04/29/18 19:30 05/29/18 19:29 Tamsulosin HCl (Flomax) 0.4 mg BEDTIME ORAL 04/29/18 21:00 05/29/18 20:59 05/05/18 21:38 Zolpidem Tartrate (Ambien) 5 mg HSPRN PRN ORAL Insomnia 04/29/18 19:30 05/06/18 19:29 04/29/18 23:38 German Mooney MD May 06, 2018 15:40
[2018-05-06 16:00] VITALS: BP 130/88
--- NOTE | 2018-05-06 19:05 | Internal Med Progress Note ---
Subjective Date of Service: May 06, 2018 Physician Name Alton Marshall Attending Physician Robin Wright MD Current Medications Medications (Trade) Dose Ordered Sig/Lucie Route PRN Reason Start Time Stop Time Status Last Admin Dose Admin Acetaminophen (Tylenol) 650 mg Q4H PRN ORAL fever 04/29/18 19:30 05/29/18 19:29 Al Hydroxide/Mg Hydroxide (Mylanta II) 30 ml Q6H PRN ORAL dyspepsia 04/29/18 19:30 05/29/18 19:29 Dextrose (Dextrose 50%) 25 ml STAT PRN IV Hypoglycemia 04/29/18 19:30 05/29/18 19:29 Dextrose (Dextrose 50%) 50 ml STAT PRN IV Hypoglycemia 04/29/18 19:45 05/29/18 19:44 Haloperidol (Haldol) 5 mg Q4H PRN ORAL Agitation 04/29/18 19:45 05/29/18 19:29 05/05/18 18:29 Lorazepam (Ativan 2mg/ml 1ml) 1 mg Q4H PRN IV For Anxiety 05/04/18 18:41 05/10/18 18:40 05/06/18 17:53 Metoprolol Tartrate (Lopressor) 25 mg Q12HR ORAL 04/29/18 21:00 05/29/18 20:59 05/05/18 21:38 Mirtazapine (Remeron) 15 mg BEDTIME ORAL 04/29/18 21:00 05/29/18 20:59 05/05/18 21:37 Morphine Sulfate (Morphine Sulfate) 1 mg Q4H PRN IVP For Pain 04/29/18 19:30 05/06/18 19:29 04/30/18 18:36 Olanzapine (ZyPREXA) 10 mg QHS ORAL 05/05/18 21:00 06/04/18 20:59 05/05/18 21:38 Ondansetron HCl (Zofran) 4 mg Q6H PRN IVP Nausea & Vomiting 04/29/18 19:30 05/29/18 19:29 Piperacillin Sod/ Tazobactam Sod 3.375 gm/Dextrose 110 ml @ 27.5 mls/hr EVERY 8 HOURS IVPB 05/02/18 14:00 05/07/18 13:59 05/06/18 13:42 Polyethylene Glycol (Miralax) 17 gm HSPRN PRN ORAL Constipation 04/29/18 19:30 05/29/18 19:29 Tamsulosin HCl (Flomax) 0.4 mg BEDTIME ORAL 04/29/18 21:00 05/29/18 20:59 05/05/18 21:38 Zolpidem Tartrate (Ambien) 5 mg HSPRN PRN ORAL Insomnia 04/29/18 19:30 05/06/18 19:29 04/29/18 23:38 Allergies: Coded Allergies: NO KNOWN ALLERGIES (Verified Allergy, Unknown, 05/05/18) ROS Limited/Unobtainable: Yes Subjective 67 YO M admitted for generalized weakness. Now UTI. Still confused. Cover for Int Med-Dr Wright Objective Last Vital Signs Date Time Temp Pulse Resp B/P (MAP) Pulse Ox O2 Delivery O2 Flow Rate FiO2 05/06/18 16:00 98.0 78 18 130/88 (102) 98 98.0 05/06/18 09:00 Room Air Laboratory Tests Test 05/06/18 05:10 White Blood Count 7.2 K/UL (4.8-10.8) Red Blood Count 4.16 M/UL (4.70-6.10) L Hemoglobin 12.8 G/DL (14.2-18.0) L Hematocrit 37.8 % (42.0-52.0) L Mean Corpuscular Volume 91 FL (80-99) Mean Corpuscular Hemoglobin 30.7 PG (27.0-31.0) Mean Corpuscular Hemoglobin Concent 33.8 G/DL (32.0-36.0) Red Cell Distribution Width 12.5 % (11.6-14.8) Platelet Count 224 K/UL (150-450) Mean Platelet Volume 6.7 FL (6.5-10.1) Neutrophils (%) (Auto) 33.0 % (45.0-75.0) L Lymphocytes (%) (Auto) 53.4 % (20.0-45.0) H Monocytes (%) (Auto) 10.3 % (1.0-10.0) H Eosinophils (%) (Auto) 2.6 % (0.0-3.0) Basophils (%) (Auto) 0.7 % (0.0-2.0) Sodium Level 142 MMOL/L (136-145) Potassium Level 4.0 MMOL/L (3.5-5.1) Chloride Level 109 MMOL/L (98-107) H Carbon Dioxide Level 26 MMOL/L (21-32) Anion Gap 7 mmol/L (5-15) Blood Urea Nitrogen 10 mg/dL (7-18) Creatinine 1.7 MG/DL (0.55-1.30) H Estimat Glomerular Filtration Rate 48.8 mL/min (>60) Glucose Level 79 MG/DL (74-106) Calcium Level 9.0 MG/DL (8.5-10.1) Intake and Output 05/05/18 05/06/18 19:00 07:00 Intake Total 257.5 ml Balance 257.5 ml Intake Oral 120 ml IV Total 137.5 ml # Voids 2 3 # Bowel Movements 1 1 Objective General Appearance: alert, mild distress, thin EENT: PERRL/EOMI, normal ENT inspection Neck: non-tender, normal alignment, supple, normal inspection Cardiovascular: normal peripheral pulses, normal rate, regular rhythm, no gallop/murmur, no JVD Respiratory/Chest: chest wall non-tender, lungs clear, normal breath sounds, no respiratory distress, no accessory muscle use Abdomen: normal bowel sounds, non tender, soft, no organomegaly, no mass Extremities: normal range of motion 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 (2) HTN (hypertension) Assessment & Plan: Continue metoprolol (3) Hepatitis C (4) Cerebral vascular disease (5) UTI (urinary tract infection) Assessment & Plan: ESBL E. Coli. Continue zosyn per ID. (6) Weakness (7) Prostate cancer (8) Agitation Assessment & Plan: See psych eval Assessment/Plan Discharge plan: alf facility Alton Marshall MD May 06, 2018 19:05
[2018-05-06 20:37] VITALS: BP 105/82
[2018-05-06] MEDS: OLANZapine 10mg tab ORAL SCH (21:14)
[2018-05-06] MEDS: Tamsulosin 0.4mg cap ORAL SCH (21:14)
[2018-05-07] VITALS: BP 126/85
[2018-05-07 04:00] VITALS: BP 134/87
[2018-05-07] MEDS: LORazepam Inj 2mg/ml 1ml IV PRN ×2 (05:02→16:27)
[2018-05-07] MEDS: Piperacillin/Tazobactam 3.375 GM in D5W 110 ML IVPB SCH (05:30)
[2018-05-07 07:18] LABS: BASOPHILS % (AUTO) 0.9 % (0.0-2.0); EOSINOPHILS % (AUTO) 2.2 % (0.0-3.0); HEMATOCRIT 39.3 % (42.0-52.0); HEMOGLOBIN 12.8 G/DL (14.2-18.0); LYMPHOCYTES % (AUTO) 53.8 % (20.0-45.0); MEAN CORPUSCULAR VOLUME 91 FL (80-99); NEUTROPHILS % (AUTO) 32.2 % (45.0-75.0); PLATELET COUNT 243 K/UL (150-450); RED BLOOD COUNT 4.32 M/UL (4.70-6.10); RED CELL DISTRIBUTION WIDTH 12.8 % (11.6-14.8); WHITE BLOOD COUNT 7.8 K/UL (4.8-10.8)
[2018-05-07 07:21] LABS: ANION GAP 6 mmol/L (5-15); BLOOD UREA NITROGEN 8 mg/dL (7-18); CARBON DIOXIDE 27 MMOL/L (21-32); CHLORIDE 109 MMOL/L (98-107); CREATININE 1.9 MG/DL (0.55-1.30); POTASSIUM 4.4 MMOL/L (3.5-5.1); SODIUM 142 MMOL/L (136-145)
[2018-05-07 08:00] VITALS: BP 116/70
[2018-05-07] MEDS: Metoprolol 25mg tab ORAL SCH ×2 (09:20→20:34)
--- NOTE | 2018-05-07 11:34 | Pulmonology Progress Note ---
Assessment/Plan Problems: (1) ATN (acute tubular necrosis) (2) Acute encephalopathy (3) Dementia (4) Prostate cancer (5) Paranoia (6) Frequent falls Assessment/Plan improving eating better still has auditory hallucination check electrolytes, creatinine slowly decreasing all reviewed, including meds and notes pt/ot doesn't want the previous detention case management consult Subjective ROS Limited/Unobtainable: No Constitutional: Reports: no symptoms Respiratory: Reports: dyspnea on exertion Cardiovascular: Reports: no symptoms Allergies: Coded Allergies: NO KNOWN ALLERGIES (Verified Allergy, Unknown, 05/05/18) Objective Last 24 Hour Vital Signs Date Time Temp Pulse Resp B/P (MAP) Pulse Ox O2 Delivery O2 Flow Rate FiO2 05/07/18 09:20 99 116/70 05/07/18 09:00 Room Air 05/07/18 08:00 98.2 99 20 116/70 (85) 96 98.2 05/07/18 04:00 98.0 74 17 134/87 (103) 98 98.0 05/07/18 00:00 97.8 81 18 126/85 (99) 98 97.8 05/06/18 21:00 Room Air 05/06/18 21:00 100 105/82 05/06/18 20:37 98.1 100 20 105/82 (90) 99 98.1 100 05/06/18 16:00 98.0 78 18 130/88 (102) 98 98.0 05/06/18 12:00 97.9 68 20 128/87 (101) 99 97.9 Intake and Output 05/06/18 05/07/18 19:00 07:00 Intake Total 430.0 ml 237.5 ml Balance 430.0 ml 237.5 ml Intake Oral 320 ml 100 ml IV Total 110.0 ml 137.5 ml # Voids 4 3 # Bowel Movements 4 1 HEENT: normocephalic, atraumatic Respiratory/Chest: chest wall non-tender, normal breath sounds Cardiovascular: normal peripheral pulses, regular rhythm Abdomen: normal bowel sounds, no organomegaly Genitourinary: normal external genitalia 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, alert, normal mood/affect Laboratory Tests 05/07/18 05:10: White Blood Count 7.8, Red Blood Count 4.32L, Hemoglobin 12.8L, Hematocrit 39.3L , Mean Corpuscular Volume 91, Mean Corpuscular Hemoglobin 29.6, Mean Corpuscular Hemoglobin Concent 32.5, Red Cell Distribution Width 12.8, Platelet Count 243, Mean Platelet Volume 7.2, Neutrophils (%) (Auto) 32.2L, Lymphocytes ( %) (Auto) 53.8H, Monocytes (%) (Auto) 11.0H, Eosinophils (%) (Auto) 2.2, Basophils (%) (Auto) 0.9, Sodium Level 142, Potassium Level 4.4, Chloride Level 109H, Carbon Dioxide Level 27, Anion Gap 6, Blood Urea Nitrogen 8, Creatinine 1.9H, Estimat Glomerular Filtration Rate 42.9, Glucose Level 75, Calcium Level 9.0 Current Medications Medications (Trade) Dose Ordered Sig/Lucie Route PRN Reason Start Time Stop Time Status Last Admin Dose Admin Acetaminophen (Tylenol) 650 mg Q4H PRN ORAL fever 04/29/18 19:30 05/29/18 19:29 Al Hydroxide/Mg Hydroxide (Mylanta II) 30 ml Q6H PRN ORAL dyspepsia 04/29/18 19:30 05/29/18 19:29 Dextrose (Dextrose 50%) 25 ml STAT PRN IV Hypoglycemia 04/29/18 19:30 05/29/18 19:29 Dextrose (Dextrose 50%) 50 ml STAT PRN IV Hypoglycemia 04/29/18 19:45 05/29/18 19:44 Haloperidol (Haldol) 5 mg Q4H PRN ORAL Agitation 04/29/18 19:45 05/29/18 19:29 05/07/18 09:20 Lorazepam (Ativan 2mg/ml 1ml) 1 mg Q4H PRN IV For Anxiety 05/04/18 18:41 05/10/18 18:40 05/07/18 05:02 Metoprolol Tartrate (Lopressor) 25 mg Q12HR ORAL 04/29/18 21:00 05/29/18 20:59 05/07/18 09:20 Mirtazapine (Remeron) 15 mg BEDTIME ORAL 04/29/18 21:00 05/29/18 20:59 05/06/18 21:14 Olanzapine (ZyPREXA) 10 mg QHS ORAL 05/05/18 21:00 06/04/18 20:59 05/06/18 21:14 Ondansetron HCl (Zofran) 4 mg Q6H PRN IVP Nausea & Vomiting 04/29/18 19:30 05/29/18 19:29 Piperacillin Sod/ Tazobactam Sod 3.375 gm/Dextrose 110 ml @ 27.5 mls/hr EVERY 8 HOURS IVPB 05/02/18 14:00 05/07/18 13:59 05/07/18 05:30 Polyethylene Glycol (Miralax) 17 gm HSPRN PRN ORAL Constipation 04/29/18 19:30 05/29/18 19:29 Tamsulosin HCl (Flomax) 0.4 mg BEDTIME ORAL 04/29/18 21:00 05/29/18 20:59 05/06/18 21:14 German Mooney MD May 07, 2018 11:34
[2018-05-07 12:00] VITALS: BP 115/80
[2018-05-07] MEDS: Morphine Sulfate 2mg/ml Inj IVP PRN ×2 (12:50→20:22)
--- NOTE | 2018-05-07 12:53 | General Progress Note ---
Assessment/Plan Status: stable, progressing Assessment/Plan Dementia with behavioral dist encephalopathy increase zyprexa qhs haldol prn remeron Subjective Date patient seen: May 07, 2018 Neurologic/Psychiatric: Reports: anxiety, depressed Allergies: Coded Allergies: NO KNOWN ALLERGIES (Verified Allergy, Unknown, 05/05/18) Subjective in restraint agitated he was given Haldol Objective Last 24 Hour Vital Signs Date Time Temp Pulse Resp B/P (MAP) Pulse Ox O2 Delivery O2 Flow Rate FiO2 05/07/18 12:00 98.0 82 20 115/80 (92) 96 98.0 05/07/18 09:20 99 116/70 05/07/18 09:00 Room Air 05/07/18 08:00 98.2 99 20 116/70 (85) 96 98.2 05/07/18 04:00 98.0 74 17 134/87 (103) 98 98.0 05/07/18 00:00 97.8 81 18 126/85 (99) 98 97.8 05/06/18 21:00 Room Air 05/06/18 21:00 100 105/82 05/06/18 20:37 98.1 100 20 105/82 (90) 99 98.1 100 05/06/18 16:00 98.0 78 18 130/88 (102) 98 98.0 Intake and Output 05/06/18 05/07/18 19:00 07:00 Intake Total 430.0 ml 237.5 ml Balance 430.0 ml 237.5 ml Intake Oral 320 ml 100 ml IV Total 110.0 ml 137.5 ml # Voids 4 3 # Bowel Movements 4 1 Laboratory Tests 05/07/18 05:10: White Blood Count 7.8, Red Blood Count 4.32L, Hemoglobin 12.8L, Hematocrit 39.3L , Mean Corpuscular Volume 91, Mean Corpuscular Hemoglobin 29.6, Mean Corpuscular Hemoglobin Concent 32.5, Red Cell Distribution Width 12.8, Platelet Count 243, Mean Platelet Volume 7.2, Neutrophils (%) (Auto) 32.2L, Lymphocytes ( %) (Auto) 53.8H, Monocytes (%) (Auto) 11.0H, Eosinophils (%) (Auto) 2.2, Basophils (%) (Auto) 0.9, Sodium Level 142, Potassium Level 4.4, Chloride Level 109H, Carbon Dioxide Level 27, Anion Gap 6, Blood Urea Nitrogen 8, Creatinine 1.9H, Estimat Glomerular Filtration Rate 42.9, Glucose Level 75, Calcium Level 9.0 Height (Feet): 5 Height (Inches): 10.00 Weight (Pounds): 139 General Appearance: no apparent distress, alert, confused, agitated Mckenna Bermudez MD May 07, 2018 12:53
--- NOTE | 2018-05-07 15:30 | Infectious Diseases Prog Note ---
Assessment/Plan Assessment/Plan Assessment: Pyuria, probable UTI vs colonization, s/p Rx -u/a wbc 30-40,nit +, leuk +3; ucx >100k ESBL Ecoli (S Zosyn) Afebrile No leukocytosis Hx of Recurrent UTI -01/2018: -u/a wbc 30-40, nit +, leuk +3; ucx >100K ESBL E.coli (S zozyn, nitrofurantoin, bactrim, ertapenem;R levo); repeat u/a 01/08 wbc tntc, nit+, leuk +3; ucx 50-60k E.fecalis (S vanco, amp; R levo) -10/2017: -u/a WBC TNTC- ucx >100k E. fecalis (S Vanco, amp), 30-40k mixed gram positive growth Chronic R ureterolithiasis and K staghorn calculus -CT abd/p 01/2018 : Distal right ureteral calculi, stable over multiple earlier studies dating back to 09/20/2014, again demonstrated. There is persistent right hydronephrosis and right renal atrophy. Nonobstructive right lower pole renal calculi are again demonstrated. Large left renal staghorn calculus, also present as far back as 2013. Mild right hydronephrosis but no ureteral calculi or hydroureter. Other nonobstructive left lower pole renal calculi are also evident. Gas bubbles within the left renal collecting system and bladder, markedly decreased from the previous 2016 exam. Uncertain as to whether these represent bladder instrumentation with reflux into the left renal collecting system, versus artifact due to infection with gas-forming organism. Correlate with clinical and laboratory findings. The bladder wall is also mildly thickened , unchanged from previously. Cystitis a possibility. Left renal cyst, also previously described. Cholelithiasis, new since prior study. Left basilar dependent pulmonary parenchymal atelectasis. Evidence of COPD, with hyperinflation and a single small bulla. Evidence of prior prostatectomy Chronic Hep C infection - hEp C VL 42K 10/2017 -Hep A Imm, Hep B Ab neg, HIV Neg History of recurrent urinary tract infection. History of osteomyelitis of the second left toe and distal phalanx. Dehydration / HAMZAH improving Generalized weakness -CT head: No acute intracranial bleed, mass effect or edema. Moderate atrophy of the brain. Evidence of chronic small vessel disease involving white matter tracts. History of prostate cancer. History of renal stone and CKD. Dementia HTN CVA hx IVDA Plan: -Continue to monitor off abx -05/07 SP IV zosyn # 5 - 05/02 Sp Ceftriaxone d# 3 -01/06 SP Bactrim DS 1 tab bid #07/29 for possible ESBL UTI and PO Amoxicillin #5/5 for enterococcal coverage -01/10 SP Ertapenem #4 -01/06 SP IV Vancomycin #2 -01/05 SP Ceftriaxone x1 -11/12/17 SP PO ampicillin #14 -Monitor CBC/CMP, temperatures -aspiration precautions Subjective Allergies: Coded Allergies: NO KNOWN ALLERGIES (Verified Allergy, Unknown, 05/05/18) Subjective afebrile no leukocytosis off abx now Objective Vital Signs Last 24 Hour Vital Signs Date Time Temp Pulse Resp B/P (MAP) Pulse Ox O2 Delivery O2 Flow Rate FiO2 05/07/18 12:00 98.0 82 20 115/80 (92) 96 98.0 05/07/18 09:20 99 116/70 05/07/18 09:00 Room Air 05/07/18 08:00 98.2 99 20 116/70 (85) 96 98.2 05/07/18 04:00 98.0 74 17 134/87 (103) 98 98.0 05/07/18 00:00 97.8 81 18 126/85 (99) 98 97.8 05/06/18 21:00 Room Air 05/06/18 21:00 100 105/82 05/06/18 20:37 98.1 100 20 105/82 (90) 99 98.1 100 05/06/18 16:00 98.0 78 18 130/88 (102) 98 98.0 Height (Feet): 5 Height (Inches): 10.00 Weight (Pounds): 139 Objective HEENT: anicteric Respiratory/Chest: no respiratory distress Cardiovascular: regularly irregular Abdomen: non distended Laboratory Tests Test 05/07/18 05:10 White Blood Count 7.8 K/UL (4.8-10.8) Red Blood Count 4.32 M/UL (4.70-6.10) L Hemoglobin 12.8 G/DL (14.2-18.0) L Hematocrit 39.3 % (42.0-52.0) L Mean Corpuscular Volume 91 FL (80-99) Mean Corpuscular Hemoglobin 29.6 PG (27.0-31.0) Mean Corpuscular Hemoglobin Concent 32.5 G/DL (32.0-36.0) Red Cell Distribution Width 12.8 % (11.6-14.8) Platelet Count 243 K/UL (150-450) Mean Platelet Volume 7.2 FL (6.5-10.1) Neutrophils (%) (Auto) 32.2 % (45.0-75.0) L Lymphocytes (%) (Auto) 53.8 % (20.0-45.0) H Monocytes (%) (Auto) 11.0 % (1.0-10.0) H Eosinophils (%) (Auto) 2.2 % (0.0-3.0) Basophils (%) (Auto) 0.9 % (0.0-2.0) Sodium Level 142 MMOL/L (136-145) Potassium Level 4.4 MMOL/L (3.5-5.1) Chloride Level 109 MMOL/L (98-107) H Carbon Dioxide Level 27 MMOL/L (21-32) Anion Gap 6 mmol/L (5-15) Blood Urea Nitrogen 8 mg/dL (7-18) Creatinine 1.9 MG/DL (0.55-1.30) H Estimat Glomerular Filtration Rate 42.9 mL/min (>60) Glucose Level 75 MG/DL (74-106) Calcium Level 9.0 MG/DL (8.5-10.1) Current Medications Medications (Trade) Dose Ordered Sig/Lucie Route PRN Reason Start Time Stop Time Status Last Admin Dose Admin Acetaminophen (Tylenol) 650 mg Q4H PRN ORAL fever 04/29/18 19:30 05/29/18 19:29 Al Hydroxide/Mg Hydroxide (Mylanta II) 30 ml Q6H PRN ORAL dyspepsia 04/29/18 19:30 05/29/18 19:29 Dextrose (Dextrose 50%) 25 ml STAT PRN IV Hypoglycemia 04/29/18 19:30 05/29/18 19:29 Dextrose (Dextrose 50%) 50 ml STAT PRN IV Hypoglycemia 04/29/18 19:45 05/29/18 19:44 Haloperidol (Haldol) 5 mg Q4H PRN ORAL Agitation 7/11/18 19:45 05/29/18 19:29 05/07/18 09:20 Lorazepam (Ativan 2mg/ml 1ml) 1 mg Q4H PRN IV For Anxiety 05/04/18 18:41 05/10/18 18:40 05/07/18 05:02 Metoprolol Tartrate (Lopressor) 25 mg Q12HR ORAL 04/29/18 21:00 05/29/18 20:59 05/07/18 09:20 Mirtazapine (Remeron) 15 mg BEDTIME ORAL 04/29/18 21:00 05/29/18 20:59 05/06/18 21:14 Morphine Sulfate (Morphine Sulfate) 1 mg Q4H PRN IVP Moderate Pain (Pain Scale 4-6) 05/07/18 12:00 05/14/18 11:59 05/07/18 12:50 Olanzapine (ZyPREXA) 15 mg QHS ORAL 05/07/18 21:00 06/06/18 20:59 Ondansetron HCl (Zofran) 4 mg Q6H PRN IVP Nausea & Vomiting 04/29/18 19:30 05/29/18 19:29 Polyethylene Glycol (Miralax) 17 gm HSPRN PRN ORAL Constipation 04/29/18 19:30 05/29/18 19:29 Tamsulosin HCl (Flomax) 0.4 mg BEDTIME ORAL 04/29/18 21:00 05/29/18 20:59 05/06/18 21:14 Janet Rowland M.D. May 07, 2018 15:30
[2018-05-07 16:00] VITALS: BP 120/75
--- NOTE | 2018-05-07 16:48 | Internal Med Progress Note ---
Subjective Date of Service: May 07, 2018 Physician Name MarshallAlton Attending Physician Robin Wright MD Current Medications Medications (Trade) Dose Ordered Sig/Lucie Route PRN Reason Start Time Stop Time Status Last Admin Dose Admin Acetaminophen (Tylenol) 650 mg Q4H PRN ORAL fever 04/29/18 19:30 05/29/18 19:29 Al Hydroxide/Mg Hydroxide (Mylanta II) 30 ml Q6H PRN ORAL dyspepsia 04/29/18 19:30 05/29/18 19:29 Dextrose (Dextrose 50%) 25 ml STAT PRN IV Hypoglycemia 04/29/18 19:30 05/29/18 19:29 Dextrose (Dextrose 50%) 50 ml STAT PRN IV Hypoglycemia 04/29/18 19:45 05/29/18 19:44 Haloperidol (Haldol) 5 mg Q4H PRN ORAL Agitation 04/29/18 19:45 05/29/18 19:29 05/07/18 09:20 Lorazepam (Ativan 2mg/ml 1ml) 1 mg Q4H PRN IV For Anxiety 05/04/18 18:41 05/10/18 18:40 05/07/18 16:27 Metoprolol Tartrate (Lopressor) 25 mg Q12HR ORAL 04/29/18 21:00 05/29/18 20:59 05/07/18 09:20 Mirtazapine (Remeron) 15 mg BEDTIME ORAL 04/29/18 21:00 05/29/18 20:59 05/06/18 21:14 Morphine Sulfate (Morphine Sulfate) 1 mg Q4H PRN IVP Moderate Pain (Pain Scale 4-6) 05/07/18 12:00 05/14/18 11:59 05/07/18 12:50 Olanzapine (ZyPREXA) 15 mg QHS ORAL 05/07/18 21:00 06/06/18 20:59 Ondansetron HCl (Zofran) 4 mg Q6H PRN IVP Nausea & Vomiting 04/29/18 19:30 05/29/18 19:29 Polyethylene Glycol (Miralax) 17 gm HSPRN PRN ORAL Constipation 04/29/18 19:30 05/29/18 19:29 Tamsulosin HCl (Flomax) 0.4 mg BEDTIME ORAL 7/11/18 21:00 05/29/18 20:59 05/06/18 21:14 Allergies: Coded Allergies: NO KNOWN ALLERGIES (Verified Allergy, Unknown, 05/05/18) ROS Limited/Unobtainable: Yes Subjective 67 YO M admitted for generalized weakness. Now UTI. Still confused. Cover for Int Med-Dr Wright. Await transfer to [facility] Objective Last Vital Signs Date Time Temp Pulse Resp B/P (MAP) Pulse Ox O2 Delivery O2 Flow Rate FiO2 05/07/18 12:00 98.0 82 20 115/80 (92) 96 98.0 05/07/18 09:00 Room Air Laboratory Tests Test 05/07/18 05:10 White Blood Count 7.8 K/UL (4.8-10.8) Red Blood Count 4.32 M/UL (4.70-6.10) L Hemoglobin 12.8 G/DL (14.2-18.0) L Hematocrit 39.3 % (42.0-52.0) L Mean Corpuscular Volume 91 FL (80-99) Mean Corpuscular Hemoglobin 29.6 PG (27.0-31.0) Mean Corpuscular Hemoglobin Concent 32.5 G/DL (32.0-36.0) Red Cell Distribution Width 12.8 % (11.6-14.8) Platelet Count 243 K/UL (150-450) Mean Platelet Volume 7.2 FL (6.5-10.1) Neutrophils (%) (Auto) 32.2 % (45.0-75.0) L Lymphocytes (%) (Auto) 53.8 % (20.0-45.0) H Monocytes (%) (Auto) 11.0 % (1.0-10.0) H Eosinophils (%) (Auto) 2.2 % (0.0-3.0) Basophils (%) (Auto) 0.9 % (0.0-2.0) Sodium Level 142 MMOL/L (136-145) Potassium Level 4.4 MMOL/L (3.5-5.1) Chloride Level 109 MMOL/L (98-107) H Carbon Dioxide Level 27 MMOL/L (21-32) Anion Gap 6 mmol/L (5-15) Blood Urea Nitrogen 8 mg/dL (7-18) Creatinine 1.9 MG/DL (0.55-1.30) H Estimat Glomerular Filtration Rate 42.9 mL/min (>60) Glucose Level 75 MG/DL (74-106) Calcium Level 9.0 MG/DL (8.5-10.1) Intake and Output 05/06/18 05/07/18 19:00 07:00 Intake Total 430.0 ml 237.5 ml Balance 430.0 ml 237.5 ml Intake Oral 320 ml 100 ml IV Total 110.0 ml 137.5 ml # Voids 4 3 # Bowel Movements 4 1 Objective General Appearance: alert, mild distress, thin EENT: PERRL/EOMI, normal ENT inspection Neck: non-tender, normal alignment, supple, normal inspection Cardiovascular: normal peripheral pulses, normal rate, regular rhythm, no gallop/murmur, no JVD Respiratory/Chest: chest wall non-tender, lungs clear, normal breath sounds, no respiratory distress, no accessory muscle use Abdomen: normal bowel sounds, non tender, soft, no organomegaly, no mass Extremities: normal range of motion 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 (2) HTN (hypertension) Assessment & Plan: Continue metoprolol (3) Hepatitis C (4) Cerebral vascular disease (5) UTI (urinary tract infection) Assessment & Plan: ESBL E. Coli. Continue zosyn per ID. (6) Weakness (7) Prostate cancer (8) Agitation Assessment & Plan: See psych eval Assessment/Plan Discharge plan: [facility] facility Alton Marshall MD May 07, 2018 16:48
[2018-05-07 18:33] LABS: ANION GAP 10 mmol/L (5-15); BLOOD UREA NITROGEN 9 mg/dL (7-18); CALCIUM 9.3 MG/DL (8.5-10.1); CARBON DIOXIDE 23 MMOL/L (21-32); CHLORIDE 106 MMOL/L (98-107); CREATININE 1.9 MG/DL (0.55-1.30); POTASSIUM 4.1 MMOL/L (3.5-5.1); SODIUM 139 MMOL/L (136-145)
[2018-05-07 19:27] VITALS: BP 125/95
[2018-05-07] MEDS: Tamsulosin 0.4mg cap ORAL SCH (20:33)
[2018-05-07] MEDS: OLANZapine 10mg tab ORAL SCH (20:33)
[2018-05-08 00:12] VITALS: BP 130/85
[2018-05-08 04:12] VITALS: BP 150/91
[2018-05-08 08:00] VITALS: BP 139/82
[2018-05-08] MEDS: Metoprolol 25mg tab ORAL SCH ×2 (09:07→21:13)
[2018-05-08 09:33] LABS: BASOPHILS % (AUTO) 0.7 % (0.0-2.0); EOSINOPHILS % (AUTO) 1.9 % (0.0-3.0); HEMATOCRIT 40.4 % (42.0-52.0); HEMOGLOBIN 13.3 G/DL (14.2-18.0); LYMPHOCYTES % (AUTO) 45.8 % (20.0-45.0); MEAN CORPUSCULAR VOLUME 91 FL (80-99); MONOCYTES % (AUTO) 10.2 % (1.0-10.0); NEUTROPHILS % (AUTO) 41.4 % (45.0-75.0); PLATELET COUNT 222 K/UL (150-450); RED BLOOD COUNT 4.44 M/UL (4.70-6.10); RED CELL DISTRIBUTION WIDTH 12.8 % (11.6-14.8); WHITE BLOOD COUNT 5.7 K/UL (4.8-10.8)
--- NOTE | 2018-05-08 10:46 | Infectious Diseases Prog Note ---
Assessment/Plan Assessment/Plan Assessment: Pyuria, probable UTI vs colonization, s/p Rx -u/a wbc 30-40,nit +, leuk +3; ucx >100k ESBL Ecoli (S Zosyn) Afebrile No leukocytosis Hx of Recurrent UTI -01/2018: -u/a wbc 30-40, nit +, leuk +3; ucx >100K ESBL E.coli (S zozyn, nitrofurantoin, bactrim, ertapenem;R levo); repeat u/a 01/08 wbc tntc, nit+, leuk +3; ucx 50-60k E.fecalis (S vanco, amp; R levo) -10/2017: -u/a WBC TNTC- ucx >100k E. fecalis (S Vanco, amp), 30-40k mixed gram positive growth Chronic R ureterolithiasis and K staghorn calculus -CT abd/p 01/2018 : Distal right ureteral calculi, stable over multiple earlier studies dating back to 09/20/2014, again demonstrated. There is persistent right hydronephrosis and right renal atrophy. Nonobstructive right lower pole renal calculi are again demonstrated. Large left renal staghorn calculus, also present as far back as 2013. Mild right hydronephrosis but no ureteral calculi or hydroureter. Other nonobstructive left lower pole renal calculi are also evident. Gas bubbles within the left renal collecting system and bladder, markedly decreased from the previous 2016 exam. Uncertain as to whether these represent bladder instrumentation with reflux into the left renal collecting system, versus artifact due to infection with gas-forming organism. Correlate with clinical and laboratory findings. The bladder wall is also mildly thickened , unchanged from previously. Cystitis a possibility. Left renal cyst, also previously described. Cholelithiasis, new since prior study. Left basilar dependent pulmonary parenchymal atelectasis. Evidence of COPD, with hyperinflation and a single small bulla. Evidence of prior prostatectomy Chronic Hep C infection - hEp C VL 42K 10/2017 -Hep A Imm, Hep B Ab neg, HIV Neg History of recurrent urinary tract infection. History of osteomyelitis of the second left toe and distal phalanx. Dehydration / HAMZAH improving Generalized weakness -CT head: No acute intracranial bleed, mass effect or edema. Moderate atrophy of the brain. Evidence of chronic small vessel disease involving white matter tracts. History of prostate cancer. History of renal stone and CKD. Dementia HTN CVA hx IVDA Plan: -Continue to monitor off abx -05/07 SP IV zosyn # 5 - 05/02 Sp Ceftriaxone d# 3 -01/06 SP Bactrim DS 1 tab bid #07/29 for possible ESBL UTI and PO Amoxicillin #5/5 for enterococcal coverage -01/10 SP Ertapenem #4 -01/06 SP IV Vancomycin #2 -01/05 SP Ceftriaxone x1 -11/12/17 SP PO ampicillin #14 -Monitor CBC/CMP, temperatures -aspiration precautions Subjective Allergies: Coded Allergies: NO KNOWN ALLERGIES (Verified Allergy, Unknown, 05/05/18) Subjective afebrile no leukocytosis off abx Objective Vital Signs Last 24 Hour Vital Signs Date Time Temp Pulse Resp B/P (MAP) Pulse Ox O2 Delivery O2 Flow Rate FiO2 05/08/18 09:07 101 139/82 05/08/18 08:10 Room Air 05/08/18 08:00 97.6 101 20 139/82 (101) 97 97.6 05/08/18 04:12 97.6 89 20 150/91 (110) 100 97.6 05/08/18 00:12 96.8 59 20 130/85 (100) 98 96.8 05/07/18 21:00 Room Air 05/07/18 20:34 101 125/95 05/07/18 19:27 98.1 101 20 125/95 (105) 96 98.1 05/07/18 16:00 98.2 85 20 120/75 (90) 96 98.2 05/07/18 12:00 98.0 82 20 115/80 (92) 96 98.0 Height (Feet): 5 Height (Inches): 10.00 Weight (Pounds): 139 Objective HEENT: anicteric Respiratory/Chest: no respiratory distress Cardiovascular: regularly irregular Abdomen: non distended Laboratory Tests Test 05/07/18 17:50 05/08/18 08:55 Sodium Level 139 MMOL/L (136-145) Potassium Level 4.1 MMOL/L (3.5-5.1) Chloride Level 106 MMOL/L (98-107) Carbon Dioxide Level 23 MMOL/L (21-32) Anion Gap 10 mmol/L (5-15) Blood Urea Nitrogen 9 mg/dL (7-18) Creatinine 1.9 MG/DL (0.55-1.30) H Estimat Glomerular Filtration Rate 42.9 mL/min (>60) Glucose Level 93 MG/DL (74-106) Calcium Level 9.3 MG/DL (8.5-10.1) White Blood Count 5.7 K/UL (4.8-10.8) Red Blood Count 4.44 M/UL (4.70-6.10) L Hemoglobin 13.3 G/DL (14.2-18.0) L Hematocrit 40.4 % (42.0-52.0) L Mean Corpuscular Volume 91 FL (80-99) Mean Corpuscular Hemoglobin 29.8 PG (27.0-31.0) Mean Corpuscular Hemoglobin Concent 32.8 G/DL (32.0-36.0) Red Cell Distribution Width 12.8 % (11.6-14.8) Platelet Count 222 K/UL (150-450) Mean Platelet Volume 6.5 FL (6.5-10.1) Neutrophils (%) (Auto) 41.4 % (45.0-75.0) L Lymphocytes (%) (Auto) 45.8 % (20.0-45.0) H Monocytes (%) (Auto) 10.2 % (1.0-10.0) H Eosinophils (%) (Auto) 1.9 % (0.0-3.0) Basophils (%) (Auto) 0.7 % (0.0-2.0) Current Medications Medications (Trade) Dose Ordered Sig/Lucie Route PRN Reason Start Time Stop Time Status Last Admin Dose Admin Acetaminophen (Tylenol) 650 mg Q4H PRN ORAL fever 04/29/18 19:30 05/29/18 19:29 Al Hydroxide/Mg Hydroxide (Mylanta II) 30 ml Q6H PRN ORAL dyspepsia 04/29/18 19:30 05/29/18 19:29 Dextrose (Dextrose 50%) 25 ml STAT PRN IV Hypoglycemia 04/29/18 19:30 05/29/18 19:29 Dextrose (Dextrose 50%) 50 ml STAT PRN IV Hypoglycemia 04/29/18 19:45 05/29/18 19:44 Haloperidol (Haldol) 5 mg Q4H PRN ORAL Agitation 04/29/18 19:45 05/29/18 19:29 05/07/18 09:20 Lorazepam (Ativan 2mg/ml 1ml) 1 mg Q4H PRN IM For Anxiety 05/08/18 10:02 05/19/18 10:01 Metoprolol Tartrate (Lopressor) 25 mg Q12HR ORAL 04/29/18 21:00 05/29/18 20:59 05/08/18 09:07 Mirtazapine (Remeron) 15 mg BEDTIME ORAL 04/29/18 21:00 05/29/18 20:59 05/07/18 20:33 Morphine Sulfate (Morphine Sulfate) 1 mg Q4H PRN IVP Moderate Pain (Pain Scale 4-6) 05/07/18 12:00 05/14/18 11:59 05/07/18 20:22 Olanzapine (ZyPREXA) 15 mg QHS ORAL 05/07/18 21:00 06/06/18 20:59 05/07/18 20:33 Ondansetron HCl (Zofran) 4 mg Q6H PRN IVP Nausea & Vomiting 04/29/18 19:30 05/29/18 19:29 Polyethylene Glycol (Miralax) 17 gm HSPRN PRN ORAL Constipation 04/29/18 19:30 05/29/18 19:29 Tamsulosin HCl (Flomax) 0.4 mg BEDTIME ORAL 04/29/18 21:00 05/29/18 20:59 05/07/18 20:33 Janet Rowland M.D. May 08, 2018 10:46
--- NOTE | 2018-05-08 11:14 | Nephrology Progress Note ---
Assessment/Plan Assessment 1. Hypernatremia. 2. hypokalemia 3. Acute renal failure. 4. Chronic kidney disease. 5. Recurrent pyelonephritis complicated with nephrolithiasis and right hydronephrosis. 6. Failure to thrive. Plan plan to replace k continue current iv monitoring renal function avoid NSIAD nutritional support Subjective Subjective NAD no events overnight Objective Objective Last 24 Hour Vital Signs Date Time Temp Pulse Resp B/P (MAP) Pulse Ox O2 Delivery O2 Flow Rate FiO2 05/08/18 09:07 101 139/82 05/08/18 08:10 Room Air 05/08/18 08:00 97.6 101 20 139/82 (101) 97 97.6 05/08/18 04:12 97.6 89 20 150/91 (110) 100 97.6 05/08/18 00:12 96.8 59 20 130/85 (100) 98 96.8 05/07/18 21:00 Room Air 05/07/18 20:34 101 125/95 05/07/18 19:27 98.1 101 20 125/95 (105) 96 98.1 05/07/18 16:00 98.2 85 20 120/75 (90) 96 98.2 05/07/18 12:00 98.0 82 20 115/80 (92) 96 98.0 Intake and Output 05/07/18 05/08/18 19:00 07:00 Intake Total 202.5 ml Balance 202.5 ml Intake Oral 120 ml IV Total 82.5 ml # Voids 2 4 # Bowel Movements 2 1 Laboratory Tests 05/07/18 17:50: Sodium Level 139, Potassium Level 4.1, Chloride Level 106, Carbon Dioxide Level 23, Anion Gap 10, Blood Urea Nitrogen 9, Creatinine 1.9H, Estimat Glomerular Filtration Rate 42.9, Glucose Level 93, Calcium Level 9.3 05/08/18 08:55: White Blood Count 5.7, Red Blood Count 4.44L, Hemoglobin 13.3L, Hematocrit 40.4L , Mean Corpuscular Volume 91, Mean Corpuscular Hemoglobin 29.8, Mean Corpuscular Hemoglobin Concent 32.8, Red Cell Distribution Width 12.8, Platelet Count 222, Mean Platelet Volume 6.5, Neutrophils (%) (Auto) 41.4L, Lymphocytes ( %) (Auto) 45.8H, Monocytes (%) (Auto) 10.2H, Eosinophils (%) (Auto) 1.9, Basophils (%) (Auto) 0.7 Height (Feet): 5 Height (Inches): 10.00 Weight (Pounds): 139 Objective HEAD AND NECK: No JVP. No LAD. No thyromegaly. Extraocular movement is intact. Pupils are reactive to light and accommodation. LUNGS: Clear to auscultation. CARDIAC: Regular rate and rhythm. S1 and S2. No murmur. No rub. ABDOMEN: Soft, nontender, and nondistended. No organomegaly. EXTREMITIES: No edema. No clubbing. No cyanosis. Pamela Davila MD May 08, 2018 11:14
[2018-05-08 12:00] VITALS: BP 112/75
--- NOTE | 2018-05-08 13:06 | General Progress Note ---
Assessment/Plan Assessment/Plan Dementia with behavioral dist encephalopathy increase zyprexa qhs haldol prn remeron haldol standing Subjective Date patient seen: May 08, 2018 Neurologic/Psychiatric: Reports: anxiety, depressed, emotional problems Allergies: Coded Allergies: NO KNOWN ALLERGIES (Verified Allergy, Unknown, 05/05/18) Subjective still agitated and not eating well Objective Last 24 Hour Vital Signs Date Time Temp Pulse Resp B/P (MAP) Pulse Ox O2 Delivery O2 Flow Rate FiO2 05/08/18 12:00 98.1 73 20 112/75 (87) 99 98.1 05/08/18 09:07 101 139/82 05/08/18 08:10 Room Air 05/08/18 08:00 97.6 101 20 139/82 (101) 97 97.6 05/08/18 04:12 97.6 89 20 150/91 (110) 100 97.6 05/08/18 00:12 96.8 59 20 130/85 (100) 98 96.8 05/07/18 21:00 Room Air 05/07/18 20:34 101 125/95 05/07/18 19:27 98.1 101 20 125/95 (105) 96 98.1 05/07/18 16:00 98.2 85 20 120/75 (90) 96 98.2 Intake and Output 05/07/18 05/08/18 19:00 07:00 Intake Total 202.5 ml Balance 202.5 ml Intake Oral 120 ml IV Total 82.5 ml # Voids 2 4 # Bowel Movements 2 1 Laboratory Tests 05/07/18 17:50: Sodium Level 139, Potassium Level 4.1, Chloride Level 106, Carbon Dioxide Level 23, Anion Gap 10, Blood Urea Nitrogen 9, Creatinine 1.9H, Estimat Glomerular Filtration Rate 42.9, Glucose Level 93, Calcium Level 9.3 05/08/18 08:55: White Blood Count 5.7, Red Blood Count 4.44L, Hemoglobin 13.3L, Hematocrit 40.4L , Mean Corpuscular Volume 91, Mean Corpuscular Hemoglobin 29.8, Mean Corpuscular Hemoglobin Concent 32.8, Red Cell Distribution Width 12.8, Platelet Count 222, Mean Platelet Volume 6.5, Neutrophils (%) (Auto) 41.4L, Lymphocytes ( %) (Auto) 45.8H, Monocytes (%) (Auto) 10.2H, Eosinophils (%) (Auto) 1.9, Basophils (%) (Auto) 0.7 Height (Feet): 5 Height (Inches): 10.00 Weight (Pounds): 139 General Appearance: no apparent distress, alert, confused, agitated Mckenna Bermudez MD May 08, 2018 13:06
--- NOTE | 2018-05-08 13:53 | Pulmonology Progress Note ---
Assessment/Plan Problems: (1) ATN (acute tubular necrosis) (2) Acute encephalopathy (3) Dementia (4) Prostate cancer (5) Paranoia (6) Frequent falls Assessment/Plan d/w Dr guy, pt has dementia secondary to brain damage eating better still has auditory hallucination check electrolytes, creatinine slowly decreasing all reviewed, including meds and notes pt/ot doesn't want the previous [facility] case management consult Subjective Allergies: Coded Allergies: NO KNOWN ALLERGIES (Verified Allergy, Unknown, 05/05/18) All Systems: reviewed and negative except above Objective Last 24 Hour Vital Signs Date Time Temp Pulse Resp B/P (MAP) Pulse Ox O2 Delivery O2 Flow Rate FiO2 05/08/18 12:00 98.1 73 20 112/75 (87) 99 98.1 05/08/18 09:07 101 139/82 05/08/18 08:10 Room Air 05/08/18 08:00 97.6 101 20 139/82 (101) 97 97.6 05/08/18 04:12 97.6 89 20 150/91 (110) 100 97.6 05/08/18 00:12 96.8 59 20 130/85 (100) 98 96.8 05/07/18 21:00 Room Air 05/07/18 20:34 101 125/95 05/07/18 19:27 98.1 101 20 125/95 (105) 96 98.1 05/07/18 16:00 98.2 85 20 120/75 (90) 96 98.2 Intake and Output 05/07/18 05/08/18 19:00 07:00 Intake Total 202.5 ml Balance 202.5 ml Intake Oral 120 ml IV Total 82.5 ml # Voids 2 4 # Bowel Movements 2 1 General Appearance: WD/WN HEENT: normocephalic, atraumatic Respiratory/Chest: chest wall non-tender, lungs clear Cardiovascular: normal peripheral pulses, normal rate Abdomen: normal bowel sounds, soft, non tender Extremities: no cyanosis, no clubbing Skin: no rash Laboratory Tests 05/07/18 17:50: Sodium Level 139, Potassium Level 4.1, Chloride Level 106, Carbon Dioxide Level 23, Anion Gap 10, Blood Urea Nitrogen 9, Creatinine 1.9H, Estimat Glomerular Filtration Rate 42.9, Glucose Level 93, Calcium Level 9.3 05/08/18 08:55: White Blood Count 5.7, Red Blood Count 4.44L, Hemoglobin 13.3L, Hematocrit 40.4L , Mean Corpuscular Volume 91, Mean Corpuscular Hemoglobin 29.8, Mean Corpuscular Hemoglobin Concent 32.8, Red Cell Distribution Width 12.8, Platelet Count 222, Mean Platelet Volume 6.5, Neutrophils (%) (Auto) 41.4L, Lymphocytes ( %) (Auto) 45.8H, Monocytes (%) (Auto) 10.2H, Eosinophils (%) (Auto) 1.9, Basophils (%) (Auto) 0.7 Current Medications Medications (Trade) Dose Ordered Sig/Lucie Route PRN Reason Start Time Stop Time Status Last Admin Dose Admin Acetaminophen (Tylenol) 650 mg Q4H PRN ORAL fever 04/29/18 19:30 05/29/18 19:29 Al Hydroxide/Mg Hydroxide (Mylanta II) 30 ml Q6H PRN ORAL dyspepsia 04/29/18 19:30 05/29/18 19:29 Dextrose (Dextrose 50%) 25 ml STAT PRN IV Hypoglycemia 04/29/18 19:30 05/29/18 19:29 Dextrose (Dextrose 50%) 50 ml STAT PRN IV Hypoglycemia 04/29/18 19:45 05/29/18 19:44 Haloperidol (Haldol) 5 mg Q4H PRN ORAL Agitation 04/29/18 19:45 05/29/18 19:29 05/07/18 09:20 Haloperidol Lactate (Haldol) 5 mg QPM IM 05/08/18 16:30 06/07/18 16:29 Lorazepam (Ativan 2mg/ml 1ml) 1 mg Q4H PRN IM For Anxiety 05/08/18 10:02 05/19/18 10:01 Metoprolol Tartrate (Lopressor) 25 mg Q12HR ORAL 04/29/18 21:00 05/29/18 20:59 05/08/18 09:07 Mirtazapine (Remeron) 15 mg BEDTIME ORAL 04/29/18 21:00 05/29/18 20:59 05/07/18 20:33 Morphine Sulfate (Morphine Sulfate) 1 mg Q4H PRN IVP Moderate Pain (Pain Scale 4-6) 05/07/18 12:00 05/14/18 11:59 05/07/18 20:22 Olanzapine (ZyPREXA) 15 mg QHS ORAL 05/07/18 21:00 06/06/18 20:59 05/07/18 20:33 Ondansetron HCl (Zofran) 4 mg Q6H PRN IVP Nausea & Vomiting 04/29/18 19:30 05/29/18 19:29 Polyethylene Glycol (Miralax) 17 gm HSPRN PRN ORAL Constipation 04/29/18 19:30 05/29/18 19:29 Tamsulosin HCl (Flomax) 0.4 mg BEDTIME ORAL 04/29/18 21:00 05/29/18 20:59 05/07/18 20:33 German Mooney MD May 08, 2018 13:53
[2018-05-08 16:00] VITALS: BP_SYST 120; BP_DIAS 70; BP_DIAS 89
--- NOTE | 2018-05-08 16:37 | Internal Med Progress Note ---
Subjective Date of Service: May 08, 2018 Physician Name JoannaAlton Attending Physician Robin Wright MD Current Medications Medications (Trade) Dose Ordered Sig/Lucie Route PRN Reason Start Time Stop Time Status Last Admin Dose Admin Acetaminophen (Tylenol) 650 mg Q4H PRN ORAL fever 04/29/18 19:30 05/29/18 19:29 Al Hydroxide/Mg Hydroxide (Mylanta II) 30 ml Q6H PRN ORAL dyspepsia 04/29/18 19:30 05/29/18 19:29 Dextrose (Dextrose 50%) 25 ml STAT PRN IV Hypoglycemia 04/29/18 19:30 05/29/18 19:29 Dextrose (Dextrose 50%) 50 ml STAT PRN IV Hypoglycemia 04/29/18 19:45 05/29/18 19:44 Haloperidol (Haldol) 5 mg Q4H PRN ORAL Agitation 04/29/18 19:45 05/29/18 19:29 05/07/18 09:20 Haloperidol Lactate (Haldol) 5 mg QPM IM 05/08/18 16:30 06/07/18 16:29 Lorazepam (Ativan 2mg/ml 1ml) 1 mg Q4H PRN IM For Anxiety 05/08/18 10:02 05/19/18 10:01 Metoprolol Tartrate (Lopressor) 25 mg Q12HR ORAL 04/29/18 21:00 05/29/18 20:59 05/08/18 09:07 Mirtazapine (Remeron) 15 mg BEDTIME ORAL 04/29/18 21:00 05/29/18 20:59 05/07/18 20:33 Morphine Sulfate (Morphine Sulfate) 1 mg Q4H PRN IVP Moderate Pain (Pain Scale 4-6) 05/07/18 12:00 05/14/18 11:59 05/07/18 20:22 Olanzapine (ZyPREXA) 15 mg QHS ORAL 05/07/18 21:00 06/06/18 20:59 05/07/18 20:33 Ondansetron HCl (Zofran) 4 mg Q6H PRN IVP Nausea & Vomiting 04/29/18 19:30 05/29/18 19:29 Polyethylene Glycol (Miralax) 17 gm HSPRN PRN ORAL Constipation 04/29/18 19:30 05/29/18 19:29 Tamsulosin HCl (Flomax) 0.4 mg BEDTIME ORAL 04/29/18 21:00 05/29/18 20:59 05/07/18 20:33 Allergies: Coded Allergies: NO KNOWN ALLERGIES (Verified Allergy, Unknown, 05/05/18) ROS Limited/Unobtainable: Yes Subjective 67 YO M admitted for generalized weakness. Now UTI. Still confused. Cover for Int Med-Dr Wright. Await transfer to [facility] Objective Last Vital Signs Date Time Temp Pulse Resp B/P (MAP) Pulse Ox O2 Delivery O2 Flow Rate FiO2 05/08/18 16:00 98.0 78 20 120/70 (87) 98 98.0 05/08/18 08:10 Room Air Laboratory Tests Test 05/07/18 17:50 05/08/18 08:55 Sodium Level 139 MMOL/L (136-145) Potassium Level 4.1 MMOL/L (3.5-5.1) Chloride Level 106 MMOL/L (98-107) Carbon Dioxide Level 23 MMOL/L (21-32) Anion Gap 10 mmol/L (5-15) Blood Urea Nitrogen 9 mg/dL (7-18) Creatinine 1.9 MG/DL (0.55-1.30) H Estimat Glomerular Filtration Rate 42.9 mL/min (>60) Glucose Level 93 MG/DL (74-106) Calcium Level 9.3 MG/DL (8.5-10.1) White Blood Count 5.7 K/UL (4.8-10.8) Red Blood Count 4.44 M/UL (4.70-6.10) L Hemoglobin 13.3 G/DL (14.2-18.0) L Hematocrit 40.4 % (42.0-52.0) L Mean Corpuscular Volume 91 FL (80-99) Mean Corpuscular Hemoglobin 29.8 PG (27.0-31.0) Mean Corpuscular Hemoglobin Concent 32.8 G/DL (32.0-36.0) Red Cell Distribution Width 12.8 % (11.6-14.8) Platelet Count 222 K/UL (150-450) Mean Platelet Volume 6.5 FL (6.5-10.1) Neutrophils (%) (Auto) 41.4 % (45.0-75.0) L Lymphocytes (%) (Auto) 45.8 % (20.0-45.0) H Monocytes (%) (Auto) 10.2 % (1.0-10.0) H Eosinophils (%) (Auto) 1.9 % (0.0-3.0) Basophils (%) (Auto) 0.7 % (0.0-2.0) Intake and Output 05/07/18 05/08/18 19:00 07:00 Intake Total 202.5 ml Balance 202.5 ml Intake Oral 120 ml IV Total 82.5 ml # Voids 2 4 # Bowel Movements 2 1 Objective General Appearance: alert, mild distress, thin EENT: PERRL/EOMI, normal ENT inspection Neck: non-tender, normal alignment, supple, normal inspection Cardiovascular: normal peripheral pulses, normal rate, regular rhythm, no gallop/murmur, no JVD Respiratory/Chest: chest wall non-tender, lungs clear, normal breath sounds, no respiratory distress, no accessory muscle use Abdomen: normal bowel sounds, non tender, soft, no organomegaly, no mass Extremities: normal range of motion 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 (2) HTN (hypertension) Assessment & Plan: Continue metoprolol (3) Hepatitis C (4) Cerebral vascular disease (5) UTI (urinary tract infection) Assessment & Plan: ESBL E. Coli. D/C zosyn per ID. (6) Weakness (7) Prostate cancer (8) Agitation Assessment & Plan: See psych eval Status: stable Assessment/Plan Discharge plan: correction facility Alton Marshall MD May 08, 2018 16:37
[2018-05-08] MEDS: Haloperidol 5mg/ml Inj IM SCH (16:49)
[2018-05-08 20:00] VITALS: BP 127/87
[2018-05-08] MEDS: OLANZapine 10mg tab ORAL SCH (21:11)
[2018-05-08] MEDS: Tamsulosin 0.4mg cap ORAL SCH (21:11)
[2018-05-09] VITALS: BP 136/92
[2018-05-09 04:00] VITALS: BP 121/70
[2018-05-09 08:05] VITALS: BP 124/72
[2018-05-09 08:07] LABS: HEMATOCRIT 39.7 % (42.0-52.0); MEAN CORPUSCULAR VOLUME 91 FL (80-99); PLATELET COUNT 229 K/UL (150-450); RED BLOOD COUNT 4.38 M/UL (4.70-6.10); RED CELL DISTRIBUTION WIDTH 12.6 % (11.6-14.8); WHITE BLOOD COUNT 9.5 K/UL (4.8-10.8)
[2018-05-09] MEDS: Metoprolol 25mg tab ORAL SCH ×2 (08:09→21:00)
[2018-05-09 08:26] LABS: ANION GAP 8 mmol/L (5-15); BLOOD UREA NITROGEN 13 mg/dL (7-18); CALCIUM 9.4 MG/DL (8.5-10.1); CARBON DIOXIDE 26 MMOL/L (21-32); CHLORIDE 109 MMOL/L (98-107); CREATININE 1.6 MG/DL (0.55-1.30); POTASSIUM 4.2 MMOL/L (3.5-5.1); SODIUM 143 MMOL/L (136-145)
--- NOTE | 2018-05-09 10:16 | Infectious Diseases Prog Note ---
Assessment/Plan Assessment/Plan A Assessment: Pyuria, probable UTI vs colonization, s/p Rx -u/a wbc 30-40,nit +, leuk +3; ucx >100k ESBL Ecoli (S Zosyn) Afebrile No leukocytosis Hx of Recurrent UTI -01/2018: -u/a wbc 30-40, nit +, leuk +3; ucx >100K ESBL E.coli (S zozyn, nitrofurantoin, bactrim, ertapenem;R levo); repeat u/a 01/08 wbc tntc, nit+, leuk +3; ucx 50-60k E.fecalis (S vanco, amp; R levo) -10/2017: -u/a WBC TNTC- ucx >100k E. fecalis (S Vanco, amp), 30-40k mixed gram positive growth Chronic R ureterolithiasis and K staghorn calculus -CT abd/p 01/2018 : Distal right ureteral calculi, stable over multiple earlier studies dating back to 09/20/2014, again demonstrated. There is persistent right hydronephrosis and right renal atrophy. Nonobstructive right lower pole renal calculi are again demonstrated. Large left renal staghorn calculus, also present as far back as 2013. Mild right hydronephrosis but no ureteral calculi or hydroureter. Other nonobstructive left lower pole renal calculi are also evident. Gas bubbles within the left renal collecting system and bladder, markedly decreased from the previous 2016 exam. Uncertain as to whether these represent bladder instrumentation with reflux into the left renal collecting system, versus artifact due to infection with gas-forming organism. Correlate with clinical and laboratory findings. The bladder wall is also mildly thickened , unchanged from previously. Cystitis a possibility. Left renal cyst, also previously described. Cholelithiasis, new since prior study. Left basilar dependent pulmonary parenchymal atelectasis. Evidence of COPD, with hyperinflation and a single small bulla. Evidence of prior prostatectomy Chronic Hep C infection - hEp C VL 42K 10/2017 -Hep A Imm, Hep B Ab neg, HIV Neg History of recurrent urinary tract infection. History of osteomyelitis of the second left toe and distal phalanx. Dehydration / HAMZAH improving Generalized weakness -CT head: No acute intracranial bleed, mass effect or edema. Moderate atrophy of the brain. Evidence of chronic small vessel disease involving white matter tracts. History of prostate cancer. History of renal stone and CKD. Dementia HTN CVA hx IVDA Plan: -Continue to monitor off abx -05/07 SP IV zosyn # 5 - 05/02 Sp Ceftriaxone d# 3 -01/06 SP Bactrim DS 1 tab bid #07/29 for possible ESBL UTI and PO Amoxicillin #5/5 for enterococcal coverage -01/10 SP Ertapenem #4 -01/06 SP IV Vancomycin #2 -01/05 SP Ceftriaxone x1 -11/12/17 SP PO ampicillin #14 Subjective Allergies: Coded Allergies: NO KNOWN ALLERGIES (Verified Allergy, Unknown, 05/05/18) Subjective Afebrile Objective Vital Signs Last 24 Hour Vital Signs Date Time Temp Pulse Resp B/P (MAP) Pulse Ox O2 Delivery O2 Flow Rate FiO2 05/09/18 09:00 Room Air 05/09/18 08:09 86 124/72 05/09/18 08:05 98.2 86 20 124/72 (89) 95 98.2 05/09/18 04:00 98.1 64 18 121/70 (87) 96 98.1 05/09/18 00:00 97.9 87 20 136/92 (107) 96 97.9 05/08/18 21:13 82 128/92 05/08/18 21:00 Room Air 05/08/18 20:00 98.3 93 16 127/87 (100) 95 98.3 05/08/18 16:00 98.0 78 20 120/70 (87) 98 98.0 05/08/18 16:00 98.0 78 20 120/89 (99) 98 98.0 05/08/18 12:00 98.1 73 20 112/75 (87) 99 98.1 Height (Feet): 5 Height (Inches): 10.00 Weight (Pounds): 139 HEENT: anicteric Respiratory/Chest: no respiratory distress Cardiovascular: regularly irregular Abdomen: no organomegaly Laboratory Tests Test 05/09/18 06:52 White Blood Count 9.5 K/UL (4.8-10.8) # Red Blood Count 4.38 M/UL (4.70-6.10) L Hemoglobin 13.0 G/DL (14.2-18.0) L Hematocrit 39.7 % (42.0-52.0) L Mean Corpuscular Volume 91 FL (80-99) Mean Corpuscular Hemoglobin 29.6 PG (27.0-31.0) Mean Corpuscular Hemoglobin Concent 32.7 G/DL (32.0-36.0) Red Cell Distribution Width 12.6 % (11.6-14.8) Platelet Count 229 K/UL (150-450) Mean Platelet Volume 6.2 FL (6.5-10.1) L Neutrophils (%) (Auto) % (45.0-75.0) Lymphocytes (%) (Auto) % (20.0-45.0) Monocytes (%) (Auto) % (1.0-10.0) Eosinophils (%) (Auto) % (0.0-3.0) Basophils (%) (Auto) % (0.0-2.0) Differential Total Cells Counted 100 Neutrophils % (Manual) 20 % (45-75) L Lymphocytes % (Manual) 66 % (20-45) H Monocytes % (Manual) 11 % (1-10) H Eosinophils % (Manual) 3 % (0-3) Basophils % (Manual) 0 % (0-2) Band Neutrophils 0 % (0-8) Platelet Estimate Adequate Platelet Morphology Normal Red Blood Cell Morphology Normal Sodium Level 143 MMOL/L (136-145) Potassium Level 4.2 MMOL/L (3.5-5.1) Chloride Level 109 MMOL/L (98-107) H Carbon Dioxide Level 26 MMOL/L (21-32) Anion Gap 8 mmol/L (5-15) Blood Urea Nitrogen 13 mg/dL (7-18) Creatinine 1.6 MG/DL (0.55-1.30) H Estimat Glomerular Filtration Rate 52.4 mL/min (>60) Glucose Level 93 MG/DL (74-106) Calcium Level 9.4 MG/DL (8.5-10.1) Current Medications Medications (Trade) Dose Ordered Sig/Lucie Route PRN Reason Start Time Stop Time Status Last Admin Dose Admin Acetaminophen (Tylenol) 650 mg Q4H PRN ORAL fever 04/29/18 19:30 05/29/18 19:29 Al Hydroxide/Mg Hydroxide (Mylanta II) 30 ml Q6H PRN ORAL dyspepsia 04/29/18 19:30 05/29/18 19:29 Dextrose (Dextrose 50%) 25 ml STAT PRN IV Hypoglycemia 04/29/18 19:30 05/29/18 19:29 Dextrose (Dextrose 50%) 50 ml STAT PRN IV Hypoglycemia 04/29/18 19:45 05/29/18 19:44 Haloperidol (Haldol) 5 mg Q4H PRN ORAL Agitation 04/29/18 19:45 05/29/18 19:29 05/07/18 09:20 Haloperidol Lactate (Haldol) 5 mg QPM IM 05/08/18 16:30 06/07/18 16:29 05/08/18 16:49 Lorazepam (Ativan 2mg/ml 1ml) 1 mg Q4H PRN IM For Anxiety 05/08/18 10:02 05/19/18 10:01 Metoprolol Tartrate (Lopressor) 25 mg Q12HR ORAL 04/29/18 21:00 05/29/18 20:59 05/08/18 21:13 Mirtazapine (Remeron) 15 mg BEDTIME ORAL 04/29/18 21:00 05/29/18 20:59 05/08/18 21:11 Morphine Sulfate (Morphine Sulfate) 1 mg Q4H PRN IVP Moderate Pain (Pain Scale 4-6) 05/07/18 12:00 05/14/18 11:59 05/07/18 20:22 Olanzapine (ZyPREXA) 15 mg QHS ORAL 05/07/18 21:00 06/06/18 20:59 05/08/18 21:11 Ondansetron HCl (Zofran) 4 mg Q6H PRN IVP Nausea & Vomiting 04/29/18 19:30 05/29/18 19:29 Polyethylene Glycol (Miralax) 17 gm HSPRN PRN ORAL Constipation 04/29/18 19:30 05/29/18 19:29 Tamsulosin HCl (Flomax) 0.4 mg BEDTIME ORAL 04/29/18 21:00 05/29/18 20:59 05/08/18 21:11 Jose Bello MD May 09, 2018 10:16
--- NOTE | 2018-05-09 11:33 | Nephrology Progress Note ---
Assessment/Plan Assessment 1. Hypernatremia. 2. hypokalemia 3. Acute renal failure. 4. Chronic kidney disease. 5. Recurrent pyelonephritis complicated with nephrolithiasis and right hydronephrosis. 6. Failure to thrive. Plan plan to replace k continue current iv monitoring renal function avoid NSIAD nutritional support Subjective Constitutional: Reports: no symptoms HEENT: Reports: no symptoms Genitourinary: Reports: no symptoms Neurologic/Psychiatric: Reports: no symptoms Subjective NAD no events overnight Objective Objective Last 24 Hour Vital Signs Date Time Temp Pulse Resp B/P (MAP) Pulse Ox O2 Delivery O2 Flow Rate FiO2 05/09/18 09:00 Room Air 05/09/18 08:09 86 124/72 05/09/18 08:05 98.2 86 20 124/72 (89) 95 98.2 05/09/18 04:00 98.1 64 18 121/70 (87) 96 98.1 05/09/18 00:00 97.9 87 20 136/92 (107) 96 97.9 05/08/18 21:13 82 128/92 05/08/18 21:00 Room Air 05/08/18 20:00 98.3 93 16 127/87 (100) 95 98.3 05/08/18 16:00 98.0 78 20 120/70 (87) 98 98.0 05/08/18 16:00 98.0 78 20 120/89 (99) 98 98.0 05/08/18 12:00 98.1 73 20 112/75 (87) 99 98.1 Intake and Output 05/08/18 05/09/18 19:00 07:00 # Voids 2 3 # Bowel Movements 1 1 Laboratory Tests 05/09/18 06:52: White Blood Count 9.5#, Red Blood Count 4.38L, Hemoglobin 13.0L, Hematocrit 39.7L, Mean Corpuscular Volume 91, Mean Corpuscular Hemoglobin 29.6, Mean Corpuscular Hemoglobin Concent 32.7, Red Cell Distribution Width 12.6, Platelet Count 229, Mean Platelet Volume 6.2L, Neutrophils (%) (Auto) , Lymphocytes (%) ( Auto) , Monocytes (%) (Auto) , Eosinophils (%) (Auto) , Basophils (%) (Auto) , Differential Total Cells Counted 100, Neutrophils % (Manual) 20L, Lymphocytes % (Manual) 66H, Monocytes % (Manual) 11H, Eosinophils % (Manual) 3, Basophils % ( Manual) 0, Band Neutrophils 0, Platelet Estimate Adequate, Platelet Morphology Normal, Red Blood Cell Morphology Normal, Sodium Level 143, Potassium Level 4.2 , Chloride Level 109H, Carbon Dioxide Level 26, Anion Gap 8, Blood Urea Nitrogen 13, Creatinine 1.6H, Estimat Glomerular Filtration Rate 52.4, Glucose Level 93, Calcium Level 9.4 Height (Feet): 5 Height (Inches): 10.00 Weight (Pounds): 139 Objective HEAD AND NECK: No JVP. No LAD. No thyromegaly. Extraocular movement is intact. Pupils are reactive to light and accommodation. LUNGS: Clear to auscultation. CARDIAC: Regular rate and rhythm. S1 and S2. No murmur. No rub. ABDOMEN: Soft, nontender, and nondistended. No organomegaly. EXTREMITIES: No edema. No clubbing. No cyanosis. Pamela Davila MD May 09, 2018 11:33
[2018-05-09 11:45] VITALS: BP 138/76
[2018-05-09] MEDS: LORazepam Inj 2mg/ml 1ml IM PRN (13:18)
--- NOTE | 2018-05-09 13:31 | Internal Med Progress Note ---
Subjective Date of Service: May 09, 2018 Physician Name Marshall,Alton Attending Physician Robin Wright MD Current Medications Medications (Trade) Dose Ordered Sig/Lucie Route PRN Reason Start Time Stop Time Status Last Admin Dose Admin Acetaminophen (Tylenol) 650 mg Q4H PRN ORAL fever 04/29/18 19:30 05/29/18 19:29 Al Hydroxide/Mg Hydroxide (Mylanta II) 30 ml Q6H PRN ORAL dyspepsia 04/29/18 19:30 05/29/18 19:29 Dextrose (Dextrose 50%) 25 ml STAT PRN IV Hypoglycemia 04/29/18 19:30 05/29/18 19:29 Dextrose (Dextrose 50%) 50 ml STAT PRN IV Hypoglycemia 04/29/18 19:45 05/29/18 19:44 Haloperidol (Haldol) 5 mg Q4H PRN ORAL Agitation 04/29/18 19:45 05/29/18 19:29 05/07/18 09:20 Haloperidol Lactate (Haldol) 5 mg QPM IM 05/08/18 16:30 06/07/18 16:29 05/08/18 16:49 Lorazepam (Ativan 2mg/ml 1ml) 1 mg Q4H PRN IM For Anxiety 05/08/18 10:02 05/19/18 10:01 05/09/18 13:18 Metoprolol Tartrate (Lopressor) 25 mg Q12HR ORAL 04/29/18 21:00 05/29/18 20:59 05/08/18 21:13 Mirtazapine (Remeron) 15 mg BEDTIME ORAL 04/29/18 21:00 05/29/18 20:59 05/08/18 21:11 Morphine Sulfate (Morphine Sulfate) 1 mg Q4H PRN IVP Moderate Pain (Pain Scale 4-6) 05/07/18 12:00 05/14/18 11:59 05/07/18 20:22 Olanzapine (ZyPREXA) 15 mg QHS ORAL 05/07/18 21:00 06/06/18 20:59 05/08/18 21:11 Ondansetron HCl (Zofran) 4 mg Q6H PRN IVP Nausea & Vomiting 04/29/18 19:30 05/29/18 19:29 Polyethylene Glycol (Miralax) 17 gm HSPRN PRN ORAL Constipation 04/29/18 19:30 05/29/18 19:29 Tamsulosin HCl (Flomax) 0.4 mg BEDTIME ORAL 04/29/18 21:00 05/29/18 20:59 05/08/18 21:11 Allergies: Coded Allergies: NO KNOWN ALLERGIES (Verified Allergy, Unknown, 05/05/18) ROS Limited/Unobtainable: Yes Subjective 67 YO M admitted for generalized weakness. Now UTI. Still confused. Cover for Int Med-Dr Wright. Await transfer to residential fac Objective Last Vital Signs Date Time Temp Pulse Resp B/P (MAP) Pulse Ox O2 Delivery O2 Flow Rate FiO2 05/09/18 11:45 98.6 70 20 138/76 (96) 95 98.6 05/09/18 09:00 Room Air Laboratory Tests Test 05/09/18 06:52 White Blood Count 9.5 K/UL (4.8-10.8) # Red Blood Count 4.38 M/UL (4.70-6.10) L Hemoglobin 13.0 G/DL (14.2-18.0) L Hematocrit 39.7 % (42.0-52.0) L Mean Corpuscular Volume 91 FL (80-99) Mean Corpuscular Hemoglobin 29.6 PG (27.0-31.0) Mean Corpuscular Hemoglobin Concent 32.7 G/DL (32.0-36.0) Red Cell Distribution Width 12.6 % (11.6-14.8) Platelet Count 229 K/UL (150-450) Mean Platelet Volume 6.2 FL (6.5-10.1) L Neutrophils (%) (Auto) % (45.0-75.0) Lymphocytes (%) (Auto) % (20.0-45.0) Monocytes (%) (Auto) % (1.0-10.0) Eosinophils (%) (Auto) % (0.0-3.0) Basophils (%) (Auto) % (0.0-2.0) Differential Total Cells Counted 100 Neutrophils % (Manual) 20 % (45-75) L Lymphocytes % (Manual) 66 % (20-45) H Monocytes % (Manual) 11 % (1-10) H Eosinophils % (Manual) 3 % (0-3) Basophils % (Manual) 0 % (0-2) Band Neutrophils 0 % (0-8) Platelet Estimate Adequate Platelet Morphology Normal Red Blood Cell Morphology Normal Sodium Level 143 MMOL/L (136-145) Potassium Level 4.2 MMOL/L (3.5-5.1) Chloride Level 109 MMOL/L (98-107) H Carbon Dioxide Level 26 MMOL/L (21-32) Anion Gap 8 mmol/L (5-15) Blood Urea Nitrogen 13 mg/dL (7-18) Creatinine 1.6 MG/DL (0.55-1.30) H Estimat Glomerular Filtration Rate 52.4 mL/min (>60) Glucose Level 93 MG/DL (74-106) Calcium Level 9.4 MG/DL (8.5-10.1) Intake and Output 05/08/18 05/09/18 19:00 07:00 # Voids 2 3 # Bowel Movements 1 1 Objective General Appearance: alert, mild distress, thin EENT: PERRL/EOMI, normal ENT inspection Neck: non-tender, normal alignment, supple, normal inspection Cardiovascular: normal peripheral pulses, normal rate, regular rhythm, no gallop/murmur, no JVD Respiratory/Chest: chest wall non-tender, lungs clear, normal breath sounds, no respiratory distress, no accessory muscle use Abdomen: normal bowel sounds, non tender, soft, no organomegaly, no mass Extremities: normal range of motion 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 (2) HTN (hypertension) Assessment & Plan: Continue metoprolol (3) Hepatitis C (4) Cerebral vascular disease (5) UTI (urinary tract infection) Assessment & Plan: ESBL E. Coli. D/C zosyn per ID. (6) Weakness (7) Prostate cancer (8) Agitation Assessment & Plan: See psych eval Status: stable Assessment/Plan Discharge plan: residential facility Alton Marshall MD May 09, 2018 13:31
[2018-05-09 15:23] VITALS: BP 112/73
[2018-05-09] MEDS: Haloperidol 5mg/ml Inj IM SCH (16:20)
--- NOTE | 2018-05-09 18:23 | Pulmonology Progress Note ---
Assessment/Plan Problems: (1) ATN (acute tubular necrosis) (2) Acute encephalopathy (3) Dementia (4) Prostate cancer (5) Paranoia (6) Frequent falls Assessment/Plan eating better still has auditory hallucination check electrolytes, creatinine slowly decreasing all reviewed, including meds and notes pt/ot doesn't want the previous long term case management consult Subjective ROS Limited/Unobtainable: No Constitutional: Reports: no symptoms HEENT: Repors: no symptoms Allergies: Coded Allergies: NO KNOWN ALLERGIES (Verified Allergy, Unknown, 05/05/18) Objective Last 24 Hour Vital Signs Date Time Temp Pulse Resp B/P (MAP) Pulse Ox O2 Delivery O2 Flow Rate FiO2 05/09/18 15:23 98.0 95 20 112/73 (86) 100 98.0 05/09/18 11:45 98.6 70 20 138/76 (96) 95 98.6 05/09/18 09:00 Room Air 05/09/18 08:09 86 124/72 05/09/18 08:05 98.2 86 20 124/72 (89) 95 98.2 05/09/18 04:00 98.1 64 18 121/70 (87) 96 98.1 05/09/18 00:00 97.9 87 20 136/92 (107) 96 97.9 05/08/18 21:13 82 128/92 05/08/18 21:00 Room Air 05/08/18 20:00 98.3 93 16 127/87 (100) 95 98.3 Intake and Output 05/08/18 05/09/18 19:00 07:00 # Voids 2 3 # Bowel Movements 1 1 Objective General Appearance: WD/WN HEENT: normocephalic, atraumatic Respiratory/Chest: chest wall non-tender, lungs clear Breasts: no masses Cardiovascular: normal peripheral pulses Abdomen: normal bowel sounds, soft, non tender Genitourinary: normal external genitalia Extremities: no cyanosis Skin: no rash 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 Lymphatic: no neck adenopathy Laboratory Tests 05/09/18 06:52: White Blood Count 9.5#, Red Blood Count 4.38L, Hemoglobin 13.0L, Hematocrit 39.7L, Mean Corpuscular Volume 91, Mean Corpuscular Hemoglobin 29.6, Mean Corpuscular Hemoglobin Concent 32.7, Red Cell Distribution Width 12.6, Platelet Count 229, Mean Platelet Volume 6.2L, Neutrophils (%) (Auto) , Lymphocytes (%) ( Auto) , Monocytes (%) (Auto) , Eosinophils (%) (Auto) , Basophils (%) (Auto) , Differential Total Cells Counted 100, Neutrophils % (Manual) 20L, Lymphocytes % (Manual) 66H, Monocytes % (Manual) 11H, Eosinophils % (Manual) 3, Basophils % ( Manual) 0, Band Neutrophils 0, Platelet Estimate Adequate, Platelet Morphology Normal, Red Blood Cell Morphology Normal, Sodium Level 143, Potassium Level 4.2 , Chloride Level 109H, Carbon Dioxide Level 26, Anion Gap 8, Blood Urea Nitrogen 13, Creatinine 1.6H, Estimat Glomerular Filtration Rate 52.4, Glucose Level 93, Calcium Level 9.4 Current Medications Medications (Trade) Dose Ordered Sig/Lucie Route PRN Reason Start Time Stop Time Status Last Admin Dose Admin Acetaminophen (Tylenol) 650 mg Q4H PRN ORAL fever 04/29/18 19:30 05/29/18 19:29 Al Hydroxide/Mg Hydroxide (Mylanta II) 30 ml Q6H PRN ORAL dyspepsia 04/29/18 19:30 05/29/18 19:29 Dextrose (Dextrose 50%) 25 ml STAT PRN IV Hypoglycemia 04/29/18 19:30 05/29/18 19:29 Dextrose (Dextrose 50%) 50 ml STAT PRN IV Hypoglycemia 04/29/18 19:45 05/29/18 19:44 Haloperidol (Haldol) 5 mg Q4H PRN ORAL Agitation 04/29/18 19:45 05/29/18 19:29 05/07/18 09:20 Haloperidol Lactate (Haldol) 5 mg QPM IM 05/08/18 16:30 06/07/18 16:29 05/09/18 16:20 Lorazepam (Ativan 2mg/ml 1ml) 1 mg Q4H PRN IM For Anxiety 05/08/18 10:02 05/19/18 10:01 05/09/18 13:18 Metoprolol Tartrate (Lopressor) 25 mg Q12HR ORAL 04/29/18 21:00 05/29/18 20:59 05/08/18 21:13 Mirtazapine (Remeron) 15 mg BEDTIME ORAL 04/29/18 21:00 05/29/18 20:59 05/08/18 21:11 Morphine Sulfate (Morphine Sulfate) 1 mg Q4H PRN IVP Moderate Pain (Pain Scale 4-6) 05/07/18 12:00 05/14/18 11:59 05/07/18 20:22 Olanzapine (ZyPREXA) 15 mg QHS ORAL 05/07/18 21:00 06/06/18 20:59 05/08/18 21:11 Ondansetron HCl (Zofran) 4 mg Q6H PRN IVP Nausea & Vomiting 04/29/18 19:30 05/29/18 19:29 Polyethylene Glycol (Miralax) 17 gm HSPRN PRN ORAL Constipation 04/29/18 19:30 05/29/18 19:29 Tamsulosin HCl (Flomax) 0.4 mg BEDTIME ORAL 04/29/18 21:00 05/29/18 20:59 05/08/18 21:11 German Mooney MD May 09, 2018 18:23
[2018-05-09 20:00] VITALS: BP 93/67
[2018-05-09] MEDS: Tamsulosin 0.4mg cap ORAL SCH (21:58)
[2018-05-09] MEDS: OLANZapine 10mg tab ORAL SCH (21:59)
[2018-05-10] VITALS: BP 118/51
[2018-05-10 04:00] VITALS: BP 110/78
[2018-05-10 07:45] VITALS: BP 108/77
[2018-05-10 07:45] LABS: ANION GAP 11 mmol/L (5-15); BLOOD UREA NITROGEN 23 mg/dL (7-18); CALCIUM 9.6 MG/DL (8.5-10.1); CARBON DIOXIDE 25 MMOL/L (21-32); CHLORIDE 107 MMOL/L (98-107); CREATININE 1.7 MG/DL (0.55-1.30); POTASSIUM 4.3 MMOL/L (3.5-5.1); SODIUM 143 MMOL/L (136-145)
[2018-05-10 07:48] LABS: EOSINOPHILS % (AUTO) 1.2 % (0.0-3.0); HEMATOCRIT 42.2 % (42.0-52.0); HEMOGLOBIN 13.6 G/DL (14.2-18.0); LYMPHOCYTES % (AUTO) 49.7 % (20.0-45.0); MEAN CORPUSCULAR VOLUME 90 FL (80-99); MONOCYTES % (AUTO) 7.4 % (1.0-10.0); NEUTROPHILS % (AUTO) 40.7 % (45.0-75.0); PLATELET COUNT 279 K/UL (150-450); RED BLOOD COUNT 4.67 M/UL (4.70-6.10); RED CELL DISTRIBUTION WIDTH 12.5 % (11.6-14.8); WHITE BLOOD COUNT 9.4 K/UL (4.8-10.8)
[2018-05-10] MEDS: LORazepam Inj 2mg/ml 1ml IM PRN (07:57)
[2018-05-10] MEDS: Metoprolol 25mg tab ORAL SCH ×2 (08:01→20:38)
[2018-05-10 11:16] VITALS: BP 110/72
--- NOTE | 2018-05-10 12:25 | Pulmonology Progress Note ---
Assessment/Plan Problems: (1) ATN (acute tubular necrosis) (2) Acute encephalopathy (3) Dementia (4) Prostate cancer (5) Paranoia (6) Frequent falls Assessment/Plan d/w extensively eating better still has auditory hallucination check electrolytes, creatinine slowly decreasing all reviewed, including meds and notes pt/ot doesn't want the previous jail case management consult Subjective ROS Limited/Unobtainable: No Constitutional: Reports: no symptoms HEENT: Repors: no symptoms Respiratory: Reports: no symptoms Allergies: Coded Allergies: NO KNOWN ALLERGIES (Verified Allergy, Unknown, 05/05/18) Objective Last 24 Hour Vital Signs Date Time Temp Pulse Resp B/P (MAP) Pulse Ox O2 Delivery O2 Flow Rate FiO2 05/10/18 11:16 98.0 94 20 110/72 (85) 96 98.0 05/10/18 09:00 Room Air 05/10/18 08:01 110 108/77 05/10/18 07:45 98.4 110 20 108/77 (87) 99 98.4 05/10/18 04:00 97.9 103 17 110/78 (89) 96 97.9 05/10/18 00:00 98.2 101 16 118/51 (73) 94 98.2 05/09/18 21:00 84 93/67 05/09/18 21:00 Room Air 05/09/18 20:00 98.2 84 16 93/67 (76) 97 98.2 05/09/18 15:23 98.0 95 20 112/73 (86) 100 98.0 Intake and Output 05/09/18 05/10/18 19:00 07:00 Intake Total 720 ml Balance 720 ml Intake Oral 720 ml # Voids 2 2 # Bowel Movements 2 1 Objective General Appearance: WD/WN HEENT: normocephalic, atraumatic Respiratory/Chest: chest wall non-tender, lungs clear Breasts: no masses Cardiovascular: normal peripheral pulses Abdomen: normal bowel sounds, soft, non tender Genitourinary: normal external genitalia Extremities: no cyanosis Skin: no rash 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 Lymphatic: no neck adenopathy Laboratory Tests 05/10/18 06:08: White Blood Count 9.4, Red Blood Count 4.67L, Hemoglobin 13.6L, Hematocrit 42.2 , Mean Corpuscular Volume 90, Mean Corpuscular Hemoglobin 29.2, Mean Corpuscular Hemoglobin Concent 32.3, Red Cell Distribution Width 12.5, Platelet Count 279, Mean Platelet Volume 6.8, Neutrophils (%) (Auto) 40.7L, Lymphocytes ( %) (Auto) 49.7H, Monocytes (%) (Auto) 7.4, Eosinophils (%) (Auto) 1.2, Basophils (%) (Auto) 1.0, Sodium Level 143, Potassium Level 4.3, Chloride Level 107, Carbon Dioxide Level 25, Anion Gap 11, Blood Urea Nitrogen 23H, Creatinine 1.7H, Estimat Glomerular Filtration Rate 48.8, Glucose Level 116H, Calcium Level 9.6 Current Medications Medications (Trade) Dose Ordered Sig/Lucie Route PRN Reason Start Time Stop Time Status Last Admin Dose Admin Acetaminophen (Tylenol) 650 mg Q4H PRN ORAL fever 04/29/18 19:30 05/29/18 19:29 Al Hydroxide/Mg Hydroxide (Mylanta II) 30 ml Q6H PRN ORAL dyspepsia 04/29/18 19:30 05/29/18 19:29 Dextrose (Dextrose 50%) 25 ml STAT PRN IV Hypoglycemia 04/29/18 19:30 05/29/18 19:29 Dextrose (Dextrose 50%) 50 ml STAT PRN IV Hypoglycemia 04/29/18 19:45 05/29/18 19:44 Haloperidol (Haldol) 5 mg Q4H PRN ORAL Agitation 04/29/18 19:45 05/29/18 19:29 05/10/18 04:36 Haloperidol Lactate (Haldol) 5 mg QPM IM 05/08/18 16:30 06/07/18 16:29 05/09/18 16:20 Lorazepam (Ativan 2mg/ml 1ml) 1 mg Q4H PRN IM For Anxiety 05/08/18 10:02 05/19/18 10:01 05/10/18 07:57 Metoprolol Tartrate (Lopressor) 25 mg Q12HR ORAL 04/29/18 21:00 05/29/18 20:59 05/08/18 21:13 Mirtazapine (Remeron) 15 mg BEDTIME ORAL 04/29/18 21:00 05/29/18 20:59 05/09/18 21:58 Morphine Sulfate (Morphine Sulfate) 1 mg Q4H PRN IVP Moderate Pain (Pain Scale 4-6) 05/07/18 12:00 05/14/18 11:59 05/07/18 20:22 Olanzapine (ZyPREXA) 15 mg QHS ORAL 05/07/18 21:00 06/06/18 20:59 05/09/18 21:59 Ondansetron HCl (Zofran) 4 mg Q6H PRN IVP Nausea & Vomiting 04/29/18 19:30 05/29/18 19:29 Polyethylene Glycol (Miralax) 17 gm HSPRN PRN ORAL Constipation 04/29/18 19:30 05/29/18 19:29 Tamsulosin HCl (Flomax) 0.4 mg BEDTIME ORAL 04/29/18 21:00 05/29/18 20:59 05/09/18 21:58 German Mooney MD May 10, 2018 12:25
--- NOTE | 2018-05-10 15:30 | Internal Med Progress Note ---
Subjective Date of Service: May 10, 2018 Physician Name MarshallAlton Attending Physician Robin Wright MD Current Medications Medications (Trade) Dose Ordered Sig/Ulcie Route PRN Reason Start Time Stop Time Status Last Admin Dose Admin Acetaminophen (Tylenol) 650 mg Q4H PRN ORAL fever 04/29/18 19:30 05/29/18 19:29 Al Hydroxide/Mg Hydroxide (Mylanta II) 30 ml Q6H PRN ORAL dyspepsia 04/29/18 19:30 05/29/18 19:29 Dextrose (Dextrose 50%) 25 ml STAT PRN IV Hypoglycemia 04/29/18 19:30 05/29/18 19:29 Dextrose (Dextrose 50%) 50 ml STAT PRN IV Hypoglycemia 04/29/18 19:45 05/29/18 19:44 Haloperidol (Haldol) 5 mg Q4H PRN ORAL Agitation 04/29/18 19:45 05/29/18 19:29 05/10/18 04:36 Haloperidol Lactate (Haldol) 5 mg QPM IM 05/08/18 16:30 06/07/18 16:29 05/09/18 16:20 Lorazepam (Ativan 2mg/ml 1ml) 1 mg Q4H PRN IM For Anxiety 05/08/18 10:02 05/19/18 10:01 05/10/18 07:57 Metoprolol Tartrate (Lopressor) 25 mg Q12HR ORAL 04/29/18 21:00 05/29/18 20:59 05/08/18 21:13 Mirtazapine (Remeron) 15 mg BEDTIME ORAL 04/29/18 21:00 05/29/18 20:59 05/09/18 21:58 Morphine Sulfate (Morphine Sulfate) 1 mg Q4H PRN IVP Moderate Pain (Pain Scale 4-6) 05/07/18 12:00 05/14/18 11:59 05/07/18 20:22 Olanzapine (ZyPREXA) 15 mg QHS ORAL 05/07/18 21:00 06/06/18 20:59 05/09/18 21:59 Ondansetron HCl (Zofran) 4 mg Q6H PRN IVP Nausea & Vomiting 04/29/18 19:30 05/29/18 19:29 Polyethylene Glycol (Miralax) 17 gm HSPRN PRN ORAL Constipation 04/29/18 19:30 05/29/18 19:29 Tamsulosin HCl (Flomax) 0.4 mg BEDTIME ORAL 04/29/18 21:00 05/29/18 20:59 05/09/18 21:58 Allergies: Coded Allergies: NO KNOWN ALLERGIES (Verified Allergy, Unknown, 05/05/18) ROS Limited/Unobtainable: Yes Subjective 67 YO M admitted for generalized weakness. Now UTI. Still confused. Cover for Int Med-Dr Wright. [facility] Objective Last Vital Signs Date Time Temp Pulse Resp B/P (MAP) Pulse Ox O2 Delivery O2 Flow Rate FiO2 05/10/18 11:16 98.0 94 20 110/72 (85) 96 98.0 05/10/18 09:00 Room Air Laboratory Tests Test 05/10/18 06:08 White Blood Count 9.4 K/UL (4.8-10.8) Red Blood Count 4.67 M/UL (4.70-6.10) L Hemoglobin 13.6 G/DL (14.2-18.0) L Hematocrit 42.2 % (42.0-52.0) Mean Corpuscular Volume 90 FL (80-99) Mean Corpuscular Hemoglobin 29.2 PG (27.0-31.0) Mean Corpuscular Hemoglobin Concent 32.3 G/DL (32.0-36.0) Red Cell Distribution Width 12.5 % (11.6-14.8) Platelet Count 279 K/UL (150-450) Mean Platelet Volume 6.8 FL (6.5-10.1) Neutrophils (%) (Auto) 40.7 % (45.0-75.0) L Lymphocytes (%) (Auto) 49.7 % (20.0-45.0) H Monocytes (%) (Auto) 7.4 % (1.0-10.0) Eosinophils (%) (Auto) 1.2 % (0.0-3.0) Basophils (%) (Auto) 1.0 % (0.0-2.0) Sodium Level 143 MMOL/L (136-145) Potassium Level 4.3 MMOL/L (3.5-5.1) Chloride Level 107 MMOL/L (98-107) Carbon Dioxide Level 25 MMOL/L (21-32) Anion Gap 11 mmol/L (5-15) Blood Urea Nitrogen 23 mg/dL (7-18) H Creatinine 1.7 MG/DL (0.55-1.30) H Estimat Glomerular Filtration Rate 48.8 mL/min (>60) Glucose Level 116 MG/DL (74-106) H Calcium Level 9.6 MG/DL (8.5-10.1) Intake and Output 05/09/18 05/10/18 19:00 07:00 Intake Total 720 ml Balance 720 ml Intake Oral 720 ml # Voids 2 2 # Bowel Movements 2 1 Objective General Appearance: alert, mild distress, thin EENT: PERRL/EOMI, normal ENT inspection Neck: non-tender, normal alignment, supple, normal inspection Cardiovascular: normal peripheral pulses, normal rate, regular rhythm, no gallop/murmur, no JVD Respiratory/Chest: chest wall non-tender, lungs clear, normal breath sounds, no respiratory distress, no accessory muscle use Abdomen: normal bowel sounds, non tender, soft, no organomegaly, no mass Extremities: normal range of motion 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 (2) HTN (hypertension) Assessment & Plan: Continue metoprolol (3) Hepatitis C (4) Cerebral vascular disease (5) UTI (urinary tract infection) Assessment & Plan: ESBL E. Coli. D/C zosyn per ID. (6) Weakness (7) Prostate cancer (8) Agitation Assessment & Plan: See psych eval Status: stable Assessment/Plan [facility] Alton Marshall MD May 10, 2018 15:30
--- NOTE | 2018-05-10 15:31 | Nephrology Progress Note ---
Assessment/Plan Assessment 1. Hypernatremia. 2. hypokalemia 3. Acute renal failure. 4. Chronic kidney disease. 5. Recurrent pyelonephritis complicated with nephrolithiasis and right hydronephrosis. 6. Failure to thrive. Plan plan to replace k continue current iv monitoring renal function avoid NSIAD nutritional support Subjective Constitutional: Reports: no symptoms HEENT: Reports: no symptoms Genitourinary: Reports: no symptoms Subjective NAD no events overnight no changes in [place] Objective Objective Last 24 Hour Vital Signs Date Time Temp Pulse Resp B/P (MAP) Pulse Ox O2 Delivery O2 Flow Rate FiO2 05/10/18 11:16 98.0 94 20 110/72 (85) 96 98.0 05/10/18 09:00 Room Air 05/10/18 08:01 110 108/77 05/10/18 07:45 98.4 110 20 108/77 (87) 99 98.4 05/10/18 04:00 97.9 103 17 110/78 (89) 96 97.9 05/10/18 00:00 98.2 101 16 118/51 (73) 94 98.2 05/09/18 21:00 84 93/67 05/09/18 21:00 Room Air 05/09/18 20:00 98.2 84 16 93/67 (76) 97 98.2 Intake and Output 05/09/18 05/10/18 19:00 07:00 Intake Total 720 ml Balance 720 ml Intake Oral 720 ml # Voids 2 2 # Bowel Movements 2 1 Laboratory Tests 05/10/18 06:08: White Blood Count 9.4, Red Blood Count 4.67L, Hemoglobin 13.6L, Hematocrit 42.2 , Mean Corpuscular Volume 90, Mean Corpuscular Hemoglobin 29.2, Mean Corpuscular Hemoglobin Concent 32.3, Red Cell Distribution Width 12.5, Platelet Count 279, Mean Platelet Volume 6.8, Neutrophils (%) (Auto) 40.7L, Lymphocytes ( %) (Auto) 49.7H, Monocytes (%) (Auto) 7.4, Eosinophils (%) (Auto) 1.2, Basophils (%) (Auto) 1.0, Sodium Level 143, Potassium Level 4.3, Chloride Level 107, Carbon Dioxide Level 25, Anion Gap 11, Blood Urea Nitrogen 23H, Creatinine 1.7H, Estimat Glomerular Filtration Rate 48.8, Glucose Level 116H, Calcium Level 9.6 Height (Feet): 5 Height (Inches): 10.00 Weight (Pounds): 139 Objective HEAD AND NECK: No JVP. No LAD. No thyromegaly. Extraocular movement is intact. Pupils are reactive to light and accommodation. LUNGS: Clear to auscultation. CARDIAC: Regular rate and rhythm. S1 and S2. No murmur. No rub. ABDOMEN: Soft, nontender, and nondistended. No organomegaly. EXTREMITIES: No edema. No clubbing. No cyanosis. Pamela Davila MD May 10, 2018 15:31
[2018-05-10 16:00] VITALS: BP 106/65
[2018-05-10] MEDS: Haloperidol 5mg/ml Inj IM SCH (16:15)
[2018-05-10 20:00] VITALS: BP 128/60
[2018-05-10] MEDS: Tamsulosin 0.4mg cap ORAL SCH (20:37)
[2018-05-10] MEDS: OLANZapine 10mg tab ORAL SCH (20:38)
[2018-05-11 00:06] VITALS: BP 123/72
[2018-05-11 04:00] VITALS: BP 126/75
[2018-05-11 06:50] LABS: ANION GAP 9 mmol/L (5-15); BASOPHILS % (AUTO) 0.7 % (0.0-2.0); BLOOD UREA NITROGEN 25 mg/dL (7-18); CALCIUM 9.3 MG/DL (8.5-10.1); CARBON DIOXIDE 26 MMOL/L (21-32); CHLORIDE 108 MMOL/L (98-107); CREATININE 1.7 MG/DL (0.55-1.30); EOSINOPHILS % (AUTO) 1.1 % (0.0-3.0); HEMATOCRIT 39.9 % (42.0-52.0); LYMPHOCYTES % (AUTO) 29.6 % (20.0-45.0); MEAN CORPUSCULAR VOLUME 91 FL (80-99); MONOCYTES % (AUTO) 7.4 % (1.0-10.0); NEUTROPHILS % (AUTO) 61.2 % (45.0-75.0); PLATELET COUNT 256 K/UL (150-450); POTASSIUM 4.3 MMOL/L (3.5-5.1); RED BLOOD COUNT 4.39 M/UL (4.70-6.10); RED CELL DISTRIBUTION WIDTH 12.7 % (11.6-14.8); SODIUM 143 MMOL/L (136-145); WHITE BLOOD COUNT 9.8 K/UL (4.8-10.8)
[2018-05-11 08:00] VITALS: BP 96/67
[2018-05-11] MEDS: Metoprolol 25mg tab ORAL SCH ×3 (08:52→20:49)
--- NOTE | 2018-05-11 08:58 | Nephrology Progress Note ---
Assessment/Plan Assessment 1. Hypernatremia. 2. hypokalemia 3. Acute renal failure. 4. Chronic kidney disease. 5. Recurrent pyelonephritis complicated with nephrolithiasis and right hydronephrosis. 6. Failure to thrive. Plan plan to continue current iv monitoring renal function avoid NSIAD nutritional support Subjective Constitutional: Reports: no symptoms HEENT: Reports: no symptoms Genitourinary: Reports: no symptoms Neurologic/Psychiatric: Reports: no symptoms Subjective NAD no events overnight no changes in [place] Objective Objective Last 24 Hour Vital Signs Date Time Temp Pulse Resp B/P (MAP) Pulse Ox O2 Delivery O2 Flow Rate FiO2 05/11/18 08:52 102 102/76 05/11/18 04:00 98.0 97 17 126/75 (92) 96 98.0 05/11/18 00:06 97.9 99 18 123/72 (89) 94 97.9 05/10/18 21:13 Room Air 05/10/18 20:38 100 128/60 05/10/18 20:00 98.2 100 18 128/60 (82) 94 98.2 05/10/18 16:00 98.2 105 20 106/65 (79) 98 98.2 05/10/18 11:16 98.0 94 20 110/72 (85) 96 98.0 05/10/18 09:00 Room Air Intake and Output 05/10/18 05/11/18 19:00 07:00 Intake Total 540 ml 180 ml Balance 540 ml 180 ml Intake Oral 540 ml 180 ml # Voids 2 2 # Bowel Movements 2 1 Laboratory Tests 05/11/18 06:15: White Blood Count 9.8, Red Blood Count 4.39L, Hemoglobin 13.0L, Hematocrit 39.9L , Mean Corpuscular Volume 91, Mean Corpuscular Hemoglobin 29.6, Mean Corpuscular Hemoglobin Concent 32.6, Red Cell Distribution Width 12.7, Platelet Count 256, Mean Platelet Volume 6.6, Neutrophils (%) (Auto) 61.2, Lymphocytes (% ) (Auto) 29.6, Monocytes (%) (Auto) 7.4, Eosinophils (%) (Auto) 1.1, Basophils ( %) (Auto) 0.7, Sodium Level 143, Potassium Level 4.3, Chloride Level 108H, Carbon Dioxide Level 26, Anion Gap 9, Blood Urea Nitrogen 25H, Creatinine 1.7H, Estimat Glomerular Filtration Rate 48.8, Glucose Level 112H, Calcium Level 9.3 Height (Feet): 5 Height (Inches): 10.00 Weight (Pounds): 139 Objective HEAD AND NECK: No JVP. No LAD. No thyromegaly. Extraocular movement is intact. Pupils are reactive to light and accommodation. LUNGS: Clear to auscultation. CARDIAC: Regular rate and rhythm. S1 and S2. No murmur. No rub. ABDOMEN: Soft, nontender, and nondistended. No organomegaly. EXTREMITIES: No edema. No clubbing. No cyanosis. Pamela Davila MD May 11, 2018 08:58
[2018-05-11 12:03] VITALS: BP 103/71
--- NOTE | 2018-05-11 12:42 | Internal Med Progress Note ---
Subjective Date of Service: May 11, 2018 Physician Name Marshall,Alton Attending Physician Robin Wright MD Current Medications Medications (Trade) Dose Ordered Sig/Lucie Route PRN Reason Start Time Stop Time Status Last Admin Dose Admin Acetaminophen (Tylenol) 650 mg Q4H PRN ORAL fever 04/29/18 19:30 05/29/18 19:29 Al Hydroxide/Mg Hydroxide (Mylanta II) 30 ml Q6H PRN ORAL dyspepsia 04/29/18 19:30 05/29/18 19:29 Dextrose (Dextrose 50%) 25 ml STAT PRN IV Hypoglycemia 04/29/18 19:30 05/29/18 19:29 Dextrose (Dextrose 50%) 50 ml STAT PRN IV Hypoglycemia 04/29/18 19:45 05/29/18 19:44 Haloperidol (Haldol) 5 mg Q4H PRN ORAL Agitation 04/29/18 19:45 05/29/18 19:29 05/10/18 04:36 Haloperidol Lactate (Haldol) 5 mg QPM IM 05/08/18 16:30 06/07/18 16:29 05/10/18 16:15 Lorazepam (Ativan 2mg/ml 1ml) 1 mg Q4H PRN IM For Anxiety 05/08/18 10:02 05/19/18 10:01 05/10/18 07:57 Metoprolol Tartrate (Lopressor) 25 mg Q12HR ORAL 04/29/18 21:00 05/29/18 20:59 05/10/18 20:38 Mirtazapine (Remeron) 15 mg BEDTIME ORAL 04/29/18 21:00 05/29/18 20:59 05/10/18 20:37 Morphine Sulfate (Morphine Sulfate) 1 mg Q4H PRN IVP Moderate Pain (Pain Scale 4-6) 05/07/18 12:00 05/14/18 11:59 05/07/18 20:22 Olanzapine (ZyPREXA) 15 mg QHS ORAL 05/07/18 21:00 06/06/18 20:59 05/09/18 21:59 Ondansetron HCl (Zofran) 4 mg Q6H PRN IVP Nausea & Vomiting 04/29/18 19:30 05/29/18 19:29 Polyethylene Glycol (Miralax) 17 gm HSPRN PRN ORAL Constipation 04/29/18 19:30 05/29/18 19:29 Tamsulosin HCl (Flomax) 0.4 mg BEDTIME ORAL 04/29/18 21:00 05/29/18 20:59 05/10/18 20:37 Allergies: Coded Allergies: NO KNOWN ALLERGIES (Verified Allergy, Unknown, 05/05/18) ROS Limited/Unobtainable: Yes Subjective 67 YO M admitted for generalized weakness. Now UTI. Still confused. Cover for Int Med-Dr Wright. Await transfer to [facility] Objective Last Vital Signs Date Time Temp Pulse Resp B/P (MAP) Pulse Ox O2 Delivery O2 Flow Rate FiO2 05/11/18 12:03 97.7 92 18 103/71 (82) 97 97.7 05/11/18 09:12 Room Air Laboratory Tests Test 05/11/18 06:15 White Blood Count 9.8 K/UL (4.8-10.8) Red Blood Count 4.39 M/UL (4.70-6.10) L Hemoglobin 13.0 G/DL (14.2-18.0) L Hematocrit 39.9 % (42.0-52.0) L Mean Corpuscular Volume 91 FL (80-99) Mean Corpuscular Hemoglobin 29.6 PG (27.0-31.0) Mean Corpuscular Hemoglobin Concent 32.6 G/DL (32.0-36.0) Red Cell Distribution Width 12.7 % (11.6-14.8) Platelet Count 256 K/UL (150-450) Mean Platelet Volume 6.6 FL (6.5-10.1) Neutrophils (%) (Auto) 61.2 % (45.0-75.0) Lymphocytes (%) (Auto) 29.6 % (20.0-45.0) Monocytes (%) (Auto) 7.4 % (1.0-10.0) Eosinophils (%) (Auto) 1.1 % (0.0-3.0) Basophils (%) (Auto) 0.7 % (0.0-2.0) Sodium Level 143 MMOL/L (136-145) Potassium Level 4.3 MMOL/L (3.5-5.1) Chloride Level 108 MMOL/L (98-107) H Carbon Dioxide Level 26 MMOL/L (21-32) Anion Gap 9 mmol/L (5-15) Blood Urea Nitrogen 25 mg/dL (7-18) H Creatinine 1.7 MG/DL (0.55-1.30) H Estimat Glomerular Filtration Rate 48.8 mL/min (>60) Glucose Level 112 MG/DL (74-106) H Calcium Level 9.3 MG/DL (8.5-10.1) Intake and Output 05/10/18 05/11/18 19:00 07:00 Intake Total 540 ml 180 ml Balance 540 ml 180 ml Intake Oral 540 ml 180 ml # Voids 2 2 # Bowel Movements 2 1 Objective General Appearance: alert, mild distress, thin EENT: PERRL/EOMI, normal ENT inspection Neck: non-tender, normal alignment, supple, normal inspection Cardiovascular: normal peripheral pulses, normal rate, regular rhythm, no gallop/murmur, no JVD Respiratory/Chest: chest wall non-tender, lungs clear, normal breath sounds, no respiratory distress, no accessory muscle use Abdomen: normal bowel sounds, non tender, soft, no organomegaly, no mass Extremities: normal range of motion 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 (2) HTN (hypertension) Assessment & Plan: Continue metoprolol (3) Hepatitis C (4) Cerebral vascular disease (5) UTI (urinary tract infection) Assessment & Plan: ESBL E. Coli. D/C zosyn per ID. (6) Weakness (7) Prostate cancer (8) Agitation Assessment & Plan: See psych eval Assessment/Plan Discharge plan: [facility] facility Alton Marshall MD May 11, 2018 12:42
--- NOTE | 2018-05-11 14:32 | Pulmonology Progress Note ---
Assessment/Plan Problems: (1) ATN (acute tubular necrosis) (2) Acute encephalopathy (3) Dementia (4) Prostate cancer (5) Paranoia (6) Frequent falls Assessment/Plan d/w extensively eating better still has auditory hallucination check electrolytes, creatinine slowly decreasing all reviewed, including meds and notes pt/ot doesn't want the previous [facility] case management consult Subjective ROS Limited/Unobtainable: No Constitutional: Reports: no symptoms HEENT: Repors: no symptoms Respiratory: Reports: no symptoms Allergies: Coded Allergies: NO KNOWN ALLERGIES (Verified Allergy, Unknown, 05/05/18) Objective Last 24 Hour Vital Signs Date Time Temp Pulse Resp B/P (MAP) Pulse Ox O2 Delivery O2 Flow Rate FiO2 05/11/18 12:03 97.7 92 18 103/71 (82) 97 97.7 05/11/18 09:12 Room Air 05/11/18 09:00 102 102/76 05/11/18 08:00 97.0 76 18 96/67 (77) 97 97.0 05/11/18 04:00 98.0 97 17 126/75 (92) 96 98.0 05/11/18 00:06 97.9 99 18 123/72 (89) 94 97.9 05/10/18 21:13 Room Air 05/10/18 20:38 100 128/60 05/10/18 20:00 98.2 100 18 128/60 (82) 94 98.2 05/10/18 16:00 98.2 105 20 106/65 (79) 98 98.2 Intake and Output 05/10/18 05/11/18 19:00 07:00 Intake Total 540 ml 180 ml Balance 540 ml 180 ml Intake Oral 540 ml 180 ml # Voids 2 2 # Bowel Movements 2 1 Objective General Appearance: WD/WN HEENT: normocephalic, atraumatic Respiratory/Chest: chest wall non-tender, lungs clear Breasts: no masses Cardiovascular: normal peripheral pulses Abdomen: normal bowel sounds, soft, non tender Genitourinary: normal external genitalia Extremities: no cyanosis Skin: no rash 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 Lymphatic: no neck adenopathy Laboratory Tests 05/11/18 06:15: White Blood Count 9.8, Red Blood Count 4.39L, Hemoglobin 13.0L, Hematocrit 39.9L , Mean Corpuscular Volume 91, Mean Corpuscular Hemoglobin 29.6, Mean Corpuscular Hemoglobin Concent 32.6, Red Cell Distribution Width 12.7, Platelet Count 256, Mean Platelet Volume 6.6, Neutrophils (%) (Auto) 61.2, Lymphocytes (% ) (Auto) 29.6, Monocytes (%) (Auto) 7.4, Eosinophils (%) (Auto) 1.1, Basophils ( %) (Auto) 0.7, Sodium Level 143, Potassium Level 4.3, Chloride Level 108H, Carbon Dioxide Level 26, Anion Gap 9, Blood Urea Nitrogen 25H, Creatinine 1.7H, Estimat Glomerular Filtration Rate 48.8, Glucose Level 112H, Calcium Level 9.3 Current Medications Medications (Trade) Dose Ordered Sig/Lucie Route PRN Reason Start Time Stop Time Status Last Admin Dose Admin Acetaminophen (Tylenol) 650 mg Q4H PRN ORAL fever 04/29/18 19:30 05/29/18 19:29 Al Hydroxide/Mg Hydroxide (Mylanta II) 30 ml Q6H PRN ORAL dyspepsia 04/29/18 19:30 05/29/18 19:29 Dextrose (Dextrose 50%) 25 ml STAT PRN IV Hypoglycemia 04/29/18 19:30 05/29/18 19:29 Dextrose (Dextrose 50%) 50 ml STAT PRN IV Hypoglycemia 04/29/18 19:45 05/29/18 19:44 Haloperidol (Haldol) 5 mg Q4H PRN ORAL Agitation 04/29/18 19:45 05/29/18 19:29 05/10/18 04:36 Haloperidol Lactate (Haldol) 5 mg QPM IM 05/08/18 16:30 06/07/18 16:29 05/10/18 16:15 Lorazepam (Ativan 2mg/ml 1ml) 1 mg Q4H PRN IM For Anxiety 05/08/18 10:02 05/19/18 10:01 05/10/18 07:57 Metoprolol Tartrate (Lopressor) 25 mg Q12HR ORAL 04/29/18 21:00 05/29/18 20:59 05/10/18 20:38 Mirtazapine (Remeron) 15 mg BEDTIME ORAL 04/29/18 21:00 05/29/18 20:59 05/10/18 20:37 Morphine Sulfate (Morphine Sulfate) 1 mg Q4H PRN IVP Moderate Pain (Pain Scale 4-6) 05/07/18 12:00 05/14/18 11:59 05/07/18 20:22 Olanzapine (ZyPREXA) 15 mg QHS ORAL 05/07/18 21:00 06/06/18 20:59 05/09/18 21:59 Ondansetron HCl (Zofran) 4 mg Q6H PRN IVP Nausea & Vomiting 04/29/18 19:30 05/29/18 19:29 Polyethylene Glycol (Miralax) 17 gm HSPRN PRN ORAL Constipation 04/29/18 19:30 05/29/18 19:29 Tamsulosin HCl (Flomax) 0.4 mg BEDTIME ORAL 04/29/18 21:00 05/29/18 20:59 05/10/18 20:37 German Mooney MD May 11, 2018 14:32
[2018-05-11 16:00] VITALS: BP 117/70
--- NOTE | 2018-05-11 16:12 | General Progress Note ---
Assessment/Plan Assessment/Plan Dementia with behavioral dist encephalopathy increase zyprexa qhs haldol prn remeron haldol standing Subjective Date patient seen: May 11, 2018 Neurologic/Psychiatric: Reports: anxiety, depressed, emotional problems Allergies: Coded Allergies: NO KNOWN ALLERGIES (Verified Allergy, Unknown, 05/05/18) Subjective still agitated and not eating well Objective Last 24 Hour Vital Signs Date Time Temp Pulse Resp B/P (MAP) Pulse Ox O2 Delivery O2 Flow Rate FiO2 05/11/18 12:03 97.7 92 18 103/71 (82) 97 97.7 05/11/18 09:12 Room Air 05/11/18 09:00 102 102/76 05/11/18 08:00 97.0 76 18 96/67 (77) 97 97.0 05/11/18 04:00 98.0 97 17 126/75 (92) 96 98.0 05/11/18 00:06 97.9 99 18 123/72 (89) 94 97.9 05/10/18 21:13 Room Air 05/10/18 20:38 100 128/60 05/10/18 20:00 98.2 100 18 128/60 (82) 94 98.2 Intake and Output 05/10/18 05/11/18 19:00 07:00 Intake Total 540 ml 180 ml Balance 540 ml 180 ml Intake Oral 540 ml 180 ml # Voids 2 2 # Bowel Movements 2 1 Laboratory Tests 05/11/18 06:15: White Blood Count 9.8, Red Blood Count 4.39L, Hemoglobin 13.0L, Hematocrit 39.9L , Mean Corpuscular Volume 91, Mean Corpuscular Hemoglobin 29.6, Mean Corpuscular Hemoglobin Concent 32.6, Red Cell Distribution Width 12.7, Platelet Count 256, Mean Platelet Volume 6.6, Neutrophils (%) (Auto) 61.2, Lymphocytes (% ) (Auto) 29.6, Monocytes (%) (Auto) 7.4, Eosinophils (%) (Auto) 1.1, Basophils ( %) (Auto) 0.7, Sodium Level 143, Potassium Level 4.3, Chloride Level 108H, Carbon Dioxide Level 26, Anion Gap 9, Blood Urea Nitrogen 25H, Creatinine 1.7H, Estimat Glomerular Filtration Rate 48.8, Glucose Level 112H, Calcium Level 9.3 Height (Feet): 5 Height (Inches): 10.00 Weight (Pounds): 139 Mckenna Bermudez MD May 11, 2018 16:12
[2018-05-11] MEDS: Haloperidol 5mg/ml Inj IM SCH (16:19)
--- NOTE | 2018-05-11 19:50 | Infectious Diseases Prog Note ---
Assessment/Plan Assessment/Plan A Assessment: Pyuria, probable UTI vs colonization, s/p Rx -u/a wbc 30-40,nit +, leuk +3; ucx >100k ESBL Ecoli (S Zosyn) Afebrile No leukocytosis Hx of Recurrent UTI -01/2018: -u/a wbc 30-40, nit +, leuk +3; ucx >100K ESBL E.coli (S zozyn, nitrofurantoin, bactrim, ertapenem;R levo); repeat u/a 01/08 wbc tntc, nit+, leuk +3; ucx 50-60k E.fecalis (S vanco, amp; R levo) -10/2017: -u/a WBC TNTC- ucx >100k E. fecalis (S Vanco, amp), 30-40k mixed gram positive growth Chronic R ureterolithiasis and K staghorn calculus -CT abd/p 01/2018 : Distal right ureteral calculi, stable over multiple earlier studies dating back to 09/20/2014, again demonstrated. There is persistent right hydronephrosis and right renal atrophy. Nonobstructive right lower pole renal calculi are again demonstrated. Large left renal staghorn calculus, also present as far back as 2013. Mild right hydronephrosis but no ureteral calculi or hydroureter. Other nonobstructive left lower pole renal calculi are also evident. Gas bubbles within the left renal collecting system and bladder, markedly decreased from the previous 2016 exam. Uncertain as to whether these represent bladder instrumentation with reflux into the left renal collecting system, versus artifact due to infection with gas-forming organism. Correlate with clinical and laboratory findings. The bladder wall is also mildly thickened , unchanged from previously. Cystitis a possibility. Left renal cyst, also previously described. Cholelithiasis, new since prior study. Left basilar dependent pulmonary parenchymal atelectasis. Evidence of COPD, with hyperinflation and a single small bulla. Evidence of prior prostatectomy Chronic Hep C infection - hEp C VL 42K 10/2017 -Hep A Imm, Hep B Ab neg, HIV Neg History of recurrent urinary tract infection. History of osteomyelitis of the second left toe and distal phalanx. Dehydration / HAMZAH improving Generalized weakness -CT head: No acute intracranial bleed, mass effect or edema. Moderate atrophy of the brain. Evidence of chronic small vessel disease involving white matter tracts. History of prostate cancer. History of renal stone and CKD. Dementia HTN CVA hx IVDA Plan: -Continue to monitor off abx -05/07 SP IV zosyn # 5 - 05/02 Sp Ceftriaxone d# 3 -01/06 SP Bactrim DS 1 tab bid #07/29 for possible ESBL UTI and PO Amoxicillin #5/5 for enterococcal coverage -01/10 SP Ertapenem #4 -01/06 SP IV Vancomycin #2 -01/05 SP Ceftriaxone x1 -11/12/17 SP PO ampicillin #14 Subjective Allergies: Coded Allergies: NO KNOWN ALLERGIES (Verified Allergy, Unknown, 05/05/18) Subjective afebrile no leukocytosis off abx Objective Vital Signs Last 24 Hour Vital Signs Date Time Temp Pulse Resp B/P (MAP) Pulse Ox O2 Delivery O2 Flow Rate FiO2 05/11/18 16:00 97.0 78 18 117/70 (86) 98 97.0 05/11/18 12:03 97.7 92 18 103/71 (82) 97 97.7 05/11/18 09:12 Room Air 05/11/18 09:00 102 102/76 05/11/18 08:00 97.0 76 18 96/67 (77) 97 97.0 05/11/18 04:00 98.0 97 17 126/75 (92) 96 98.0 05/11/18 00:06 97.9 99 18 123/72 (89) 94 97.9 05/10/18 21:13 Room Air 05/10/18 20:38 100 128/60 05/10/18 20:00 98.2 100 18 128/60 (82) 94 98.2 Height (Feet): 5 Height (Inches): 10.00 Weight (Pounds): 139 Objective HEENT: anicteric Respiratory/Chest: no respiratory distress Cardiovascular: regularly irregular Abdomen: non distended Laboratory Tests Test 05/11/18 06:15 White Blood Count 9.8 K/UL (4.8-10.8) Red Blood Count 4.39 M/UL (4.70-6.10) L Hemoglobin 13.0 G/DL (14.2-18.0) L Hematocrit 39.9 % (42.0-52.0) L Mean Corpuscular Volume 91 FL (80-99) Mean Corpuscular Hemoglobin 29.6 PG (27.0-31.0) Mean Corpuscular Hemoglobin Concent 32.6 G/DL (32.0-36.0) Red Cell Distribution Width 12.7 % (11.6-14.8) Platelet Count 256 K/UL (150-450) Mean Platelet Volume 6.6 FL (6.5-10.1) Neutrophils (%) (Auto) 61.2 % (45.0-75.0) Lymphocytes (%) (Auto) 29.6 % (20.0-45.0) Monocytes (%) (Auto) 7.4 % (1.0-10.0) Eosinophils (%) (Auto) 1.1 % (0.0-3.0) Basophils (%) (Auto) 0.7 % (0.0-2.0) Sodium Level 143 MMOL/L (136-145) Potassium Level 4.3 MMOL/L (3.5-5.1) Chloride Level 108 MMOL/L (98-107) H Carbon Dioxide Level 26 MMOL/L (21-32) Anion Gap 9 mmol/L (5-15) Blood Urea Nitrogen 25 mg/dL (7-18) H Creatinine 1.7 MG/DL (0.55-1.30) H Estimat Glomerular Filtration Rate 48.8 mL/min (>60) Glucose Level 112 MG/DL (74-106) H Calcium Level 9.3 MG/DL (8.5-10.1) Current Medications Medications (Trade) Dose Ordered Sig/Lucie Route PRN Reason Start Time Stop Time Status Last Admin Dose Admin Acetaminophen (Tylenol) 650 mg Q4H PRN ORAL fever 04/29/18 19:30 05/29/18 19:29 Al Hydroxide/Mg Hydroxide (Mylanta II) 30 ml Q6H PRN ORAL dyspepsia 04/29/18 19:30 05/29/18 19:29 Dextrose (Dextrose 50%) 25 ml STAT PRN IV Hypoglycemia 04/29/18 19:30 05/29/18 19:29 Dextrose (Dextrose 50%) 50 ml STAT PRN IV Hypoglycemia 04/29/18 19:45 05/29/18 19:44 Haloperidol (Haldol) 5 mg Q4H PRN ORAL Agitation 04/29/18 19:45 05/29/18 19:29 05/10/18 04:36 Haloperidol Lactate (Haldol) 5 mg QPM IM 05/08/18 16:30 06/07/18 16:29 05/11/18 16:19 Lorazepam (Ativan 2mg/ml 1ml) 1 mg Q4H PRN IM For Anxiety 05/08/18 10:02 05/19/18 10:01 05/10/18 07:57 Metoprolol Tartrate (Lopressor) 25 mg Q12HR ORAL 04/29/18 21:00 05/29/18 20:59 05/10/18 20:38 Mirtazapine (Remeron) 15 mg BEDTIME ORAL 04/29/18 21:00 05/29/18 20:59 05/10/18 20:37 Morphine Sulfate (Morphine Sulfate) 1 mg Q4H PRN IVP Moderate Pain (Pain Scale 4-6) 05/07/18 12:00 05/14/18 11:59 05/07/18 20:22 Olanzapine (ZyPREXA) 15 mg QHS ORAL 05/07/18 21:00 06/06/18 20:59 05/09/18 21:59 Ondansetron HCl (Zofran) 4 mg Q6H PRN IVP Nausea & Vomiting 04/29/18 19:30 05/29/18 19:29 Polyethylene Glycol (Miralax) 17 gm HSPRN PRN ORAL Constipation 04/29/18 19:30 05/29/18 19:29 Tamsulosin HCl (Flomax) 0.4 mg BEDTIME ORAL 04/29/18 21:00 05/29/18 20:59 05/10/18 20:37 Janet Rowland M.D. May 11, 2018 19:49
[2018-05-11 20:00] VITALS: BP 126/72
[2018-05-11] MEDS: LORazepam Inj 2mg/ml 1ml IM PRN (20:48)
[2018-05-11] MEDS: Tamsulosin 0.4mg cap ORAL SCH (20:49)
[2018-05-11] MEDS: OLANZapine 10mg tab ORAL SCH (21:41)
[2018-05-12] VITALS: BP 121/75
[2018-05-12 04:00] VITALS: BP 127/68
--- NOTE | 2018-05-12 07:37 | Nephrology Progress Note ---
Assessment/Plan Assessment 1. Hypernatremia.resolved 2. hypokalemia 3. Acute renal failure. 4. Chronic kidney disease. 5. Recurrent pyelonephritis complicated with nephrolithiasis and right hydronephrosis. 6. Failure to thrive. Plan plan to continue current iv monitoring renal function avoid NSIAD nutritional support Subjective Constitutional: Reports: no symptoms HEENT: Reports: no symptoms Genitourinary: Reports: no symptoms Neurologic/Psychiatric: Reports: no symptoms Subjective NAD no events overnight no changes in [place] Objective Objective Last 24 Hour Vital Signs Date Time Temp Pulse Resp B/P (MAP) Pulse Ox O2 Delivery O2 Flow Rate FiO2 05/12/18 04:00 97.5 78 18 127/68 (87) 94 97.5 05/12/18 00:00 97.5 85 18 121/75 (90) 97 97.5 05/11/18 21:00 Room Air 05/11/18 20:49 94 126/72 05/11/18 20:00 97.9 89 21 126/72 (90) 94 97.9 05/11/18 16:00 97.0 78 18 117/70 (86) 98 97.0 05/11/18 12:03 97.7 92 18 103/71 (82) 97 97.7 05/11/18 09:12 Room Air 05/11/18 09:00 102 102/76 05/11/18 08:00 97.0 76 18 96/67 (77) 97 97.0 Intake and Output 05/11/18 05/12/18 19:00 07:00 Intake Total 120 ml Balance 120 ml Intake Oral 120 ml # Voids 3 # Bowel Movements 1 1 Height (Feet): 5 Height (Inches): 10.00 Weight (Pounds): 139 Objective HEAD AND NECK: No JVP. No LAD. No thyromegaly. Extraocular movement is intact. Pupils are reactive to light and accommodation. LUNGS: Clear to auscultation. CARDIAC: Regular rate and rhythm. S1 and S2. No murmur. No rub. ABDOMEN: Soft, nontender, and nondistended. No organomegaly. EXTREMITIES: No edema. No clubbing. No cyanosis. Pamela Davila MD May 12, 2018 07:37
[2018-05-12 08:00] VITALS: BP 104/67
[2018-05-12] MEDS: Metoprolol 25mg tab ORAL SCH ×2 (09:00→20:31)
[2018-05-12 12:00] VITALS: BP 118/72
--- NOTE | 2018-05-12 13:59 | Pulmonology Progress Note ---
Assessment/Plan Problems: (1) ATN (acute tubular necrosis) (2) Acute encephalopathy (3) Dementia (4) Prostate cancer (5) Paranoia (6) Frequent falls Assessment/Plan d/w extensively eating better still has auditory hallucination check electrolytes, creatinine slowly decreasing all reviewed, including meds and notes pt/ot doesn't want the previous intermediate case management consult Subjective ROS Limited/Unobtainable: No Constitutional: Reports: no symptoms HEENT: Repors: no symptoms Respiratory: Reports: no symptoms Allergies: Coded Allergies: NO KNOWN ALLERGIES (Verified Allergy, Unknown, 05/05/18) Objective Last 24 Hour Vital Signs Date Time Temp Pulse Resp B/P (MAP) Pulse Ox O2 Delivery O2 Flow Rate FiO2 05/12/18 12:00 97.5 105 20 118/72 (87) 97 97.5 05/12/18 09:57 Room Air 05/12/18 09:00 87 104/67 05/12/18 08:00 97.3 87 20 104/67 (79) 94 97.3 05/12/18 04:00 97.5 78 18 127/68 (87) 94 97.5 05/12/18 00:00 97.5 85 18 121/75 (90) 97 97.5 05/11/18 21:00 Room Air 05/11/18 20:49 94 126/72 05/11/18 20:00 97.9 89 21 126/72 (90) 94 97.9 05/11/18 16:00 97.0 78 18 117/70 (86) 98 97.0 Intake and Output 05/11/18 05/12/18 19:00 07:00 Intake Total 120 ml Balance 120 ml Intake Oral 120 ml # Voids 3 # Bowel Movements 1 1 Objective General Appearance: WD/WN HEENT: normocephalic, atraumatic Respiratory/Chest: chest wall non-tender, lungs clear Breasts: no masses Cardiovascular: normal peripheral pulses Abdomen: normal bowel sounds, soft, non tender Genitourinary: normal external genitalia Extremities: no cyanosis Skin: no rash Neurologic/Psychiatric: oncology physician II-XII grossly normal Lymphatic: no neck adenopathy Current Medications Medications (Trade) Dose Ordered Sig/Lucie Route PRN Reason Start Time Stop Time Status Last Admin Dose Admin Acetaminophen (Tylenol) 650 mg Q4H PRN ORAL fever 04/29/18 19:30 05/29/18 19:29 Al Hydroxide/Mg Hydroxide (Mylanta II) 30 ml Q6H PRN ORAL dyspepsia 04/29/18 19:30 05/29/18 19:29 Dextrose (Dextrose 50%) 25 ml STAT PRN IV Hypoglycemia 04/29/18 19:30 05/29/18 19:29 Dextrose (Dextrose 50%) 50 ml STAT PRN IV Hypoglycemia 04/29/18 19:45 05/29/18 19:44 Haloperidol (Haldol) 5 mg Q4H PRN ORAL Agitation 04/29/18 19:45 05/29/18 19:29 05/10/18 04:36 Haloperidol Lactate (Haldol) 5 mg QPM IM 05/08/18 16:30 06/07/18 16:29 05/11/18 16:19 Lorazepam (Ativan 2mg/ml 1ml) 1 mg Q4H PRN IM For Anxiety 05/08/18 10:02 05/19/18 10:01 05/11/18 20:48 Metoprolol Tartrate (Lopressor) 25 mg Q12HR ORAL 04/29/18 21:00 05/29/18 20:59 05/11/18 20:49 Mirtazapine (Remeron) 15 mg BEDTIME ORAL 04/29/18 21:00 05/29/18 20:59 05/11/18 20:49 Morphine Sulfate (Morphine Sulfate) 1 mg Q4H PRN IVP Moderate Pain (Pain Scale 4-6) 05/07/18 12:00 05/14/18 11:59 05/07/18 20:22 Olanzapine (ZyPREXA) 15 mg QHS ORAL 05/07/18 21:00 06/06/18 20:59 05/11/18 21:41 Ondansetron HCl (Zofran) 4 mg Q6H PRN IVP Nausea & Vomiting 04/29/18 19:30 05/29/18 19:29 Polyethylene Glycol (Miralax) 17 gm HSPRN PRN ORAL Constipation 04/29/18 19:30 05/29/18 19:29 Tamsulosin HCl (Flomax) 0.4 mg BEDTIME ORAL 04/29/18 21:00 05/29/18 20:59 05/11/18 20:49 German Mooney MD May 12, 2018 13:59
--- NOTE | 2018-05-12 15:54 | General Progress Note ---
Assessment/Plan Status: stable Assessment/Plan Dementia with behavioral dist encephalopathy increase zyprexa qhs haldol prn remeron haldol standing Subjective Date patient seen: May 12, 2018 Neurologic/Psychiatric: Reports: anxiety, depressed, emotional problems Allergies: Coded Allergies: NO KNOWN ALLERGIES (Verified Allergy, Unknown, 05/05/18) Subjective more agitated and not eating well Objective Last 24 Hour Vital Signs Date Time Temp Pulse Resp B/P (MAP) Pulse Ox O2 Delivery O2 Flow Rate FiO2 05/12/18 12:00 97.5 105 20 118/72 (87) 97 97.5 05/12/18 09:57 Room Air 05/12/18 09:00 87 104/67 05/12/18 08:00 97.3 87 20 104/67 (79) 94 97.3 05/12/18 04:00 97.5 78 18 127/68 (87) 94 97.5 05/12/18 00:00 97.5 85 18 121/75 (90) 97 97.5 05/11/18 21:00 Room Air 05/11/18 20:49 94 126/72 05/11/18 20:00 97.9 89 21 126/72 (90) 94 97.9 05/11/18 16:00 97.0 78 18 117/70 (86) 98 97.0 Intake and Output 05/11/18 05/12/18 19:00 07:00 Intake Total 120 ml Balance 120 ml Intake Oral 120 ml # Voids 3 # Bowel Movements 1 1 Height (Feet): 5 Height (Inches): 10.00 Weight (Pounds): 139 General Appearance: no apparent distress, alert, agitated Mckenna Bermudez MD May 12, 2018 15:54
[2018-05-12 16:00] VITALS: BP 129/56
[2018-05-12] MEDS: Haloperidol 5mg/ml Inj IM SCH (16:39)
--- NOTE | 2018-05-12 16:46 | Internal Med Progress Note ---
Subjective Date of Service: May 12, 2018 Physician Name Marshall,Alton Attending Physician Robin Wright MD Current Medications Medications (Trade) Dose Ordered Sig/Lucie Route PRN Reason Start Time Stop Time Status Last Admin Dose Admin Acetaminophen (Tylenol) 650 mg Q4H PRN ORAL fever 04/29/18 19:30 05/29/18 19:29 Al Hydroxide/Mg Hydroxide (Mylanta II) 30 ml Q6H PRN ORAL dyspepsia 04/29/18 19:30 05/29/18 19:29 Dextrose (Dextrose 50%) 25 ml STAT PRN IV Hypoglycemia 04/29/18 19:30 05/29/18 19:29 Dextrose (Dextrose 50%) 50 ml STAT PRN IV Hypoglycemia 04/29/18 19:45 05/29/18 19:44 Haloperidol (Haldol) 5 mg Q4H PRN ORAL Agitation 04/29/18 19:45 05/29/18 19:29 05/10/18 04:36 Haloperidol Lactate (Haldol) 5 mg QPM IM 05/08/18 16:30 06/07/18 16:29 05/12/18 16:39 Lorazepam (Ativan 2mg/ml 1ml) 1 mg Q4H PRN IM For Anxiety 05/08/18 10:02 05/19/18 10:01 05/11/18 20:48 Metoprolol Tartrate (Lopressor) 25 mg Q12HR ORAL 04/29/18 21:00 05/29/18 20:59 05/11/18 20:49 Mirtazapine (Remeron) 15 mg BEDTIME ORAL 04/29/18 21:00 05/29/18 20:59 05/11/18 20:49 Morphine Sulfate (Morphine Sulfate) 1 mg Q4H PRN IVP Moderate Pain (Pain Scale 4-6) 05/07/18 12:00 05/14/18 11:59 05/07/18 20:22 Olanzapine (ZyPREXA) 15 mg QHS ORAL 05/07/18 21:00 06/06/18 20:59 05/11/18 21:41 Ondansetron HCl (Zofran) 4 mg Q6H PRN IVP Nausea & Vomiting 04/29/18 19:30 05/29/18 19:29 Polyethylene Glycol (Miralax) 17 gm HSPRN PRN ORAL Constipation 04/29/18 19:30 05/29/18 19:29 Tamsulosin HCl (Flomax) 0.4 mg BEDTIME ORAL 04/29/18 21:00 05/29/18 20:59 05/11/18 20:49 Allergies: Coded Allergies: NO KNOWN ALLERGIES (Verified Allergy, Unknown, 05/05/18) ROS Limited/Unobtainable: Yes Subjective 67 YO M admitted for generalized weakness. Now UTI. Still confused. Cover for Int Med-Dr Wright. [facility] Objective Last Vital Signs Date Time Temp Pulse Resp B/P (MAP) Pulse Ox O2 Delivery O2 Flow Rate FiO2 05/12/18 12:00 97.5 105 20 118/72 (87) 97 97.5 05/12/18 09:57 Room Air Intake and Output 05/11/18 05/12/18 19:00 07:00 Intake Total 120 ml Balance 120 ml Intake Oral 120 ml # Voids 3 # Bowel Movements 1 1 Objective General Appearance: alert, mild distress, thin EENT: PERRL/EOMI, normal ENT inspection Neck: non-tender, normal alignment, supple, normal inspection Cardiovascular: normal peripheral pulses, normal rate, regular rhythm, no gallop/murmur, no JVD Respiratory/Chest: chest wall non-tender, lungs clear, normal breath sounds, no respiratory distress, no accessory muscle use Abdomen: normal bowel sounds, non tender, soft, no organomegaly, no mass Extremities: normal range of motion Neurologic: senior research engineer II-XII 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 (2) HTN (hypertension) Assessment & Plan: Continue metoprolol (3) Hepatitis C (4) Cerebral vascular disease (5) UTI (urinary tract infection) Assessment & Plan: ESBL E. Coli. D/C zosyn per ID. (6) Weakness (7) Prostate cancer (8) Agitation Assessment & Plan: See psych eval Assessment/Plan [facility] Alton Marshall MD May 12, 2018 16:46
--- NOTE | 2018-05-12 18:16 | Infectious Diseases Prog Note ---
Assessment/Plan Assessment/Plan A Assessment: Pyuria, probable UTI vs colonization, s/p Rx -u/a wbc 30-40,nit +, leuk +3; ucx >100k ESBL Ecoli (S Zosyn) Afebrile No leukocytosis Hx of Recurrent UTI -01/2018: -u/a wbc 30-40, nit +, leuk +3; ucx >100K ESBL E.coli (S zozyn, nitrofurantoin, bactrim, ertapenem;R levo); repeat u/a 01/08 wbc tntc, nit+, leuk +3; ucx 50-60k E.fecalis (S vanco, amp; R levo) -10/2017: -u/a WBC TNTC- ucx >100k E. fecalis (S Vanco, amp), 30-40k mixed gram positive growth Chronic R ureterolithiasis and K staghorn calculus -CT abd/p 01/2018 : Distal right ureteral calculi, stable over multiple earlier studies dating back to 09/20/2014, again demonstrated. There is persistent right hydronephrosis and right renal atrophy. Nonobstructive right lower pole renal calculi are again demonstrated. Large left renal staghorn calculus, also present as far back as 2013. Mild right hydronephrosis but no ureteral calculi or hydroureter. Other nonobstructive left lower pole renal calculi are also evident. Gas bubbles within the left renal collecting system and bladder, markedly decreased from the previous 2016 exam. Uncertain as to whether these represent bladder instrumentation with reflux into the left renal collecting system, versus artifact due to infection with gas-forming organism. Correlate with clinical and laboratory findings. The bladder wall is also mildly thickened , unchanged from previously. Cystitis a possibility. Left renal cyst, also previously described. Cholelithiasis, new since prior study. Left basilar dependent pulmonary parenchymal atelectasis. Evidence of COPD, with hyperinflation and a single small bulla. Evidence of prior prostatectomy Chronic Hep C infection - hEp C VL 42K 10/2017 -Hep A Imm, Hep B Ab neg, HIV Neg History of recurrent urinary tract infection. History of osteomyelitis of the second left toe and distal phalanx. Dehydration / HAMZAH improving Generalized weakness -CT head: No acute intracranial bleed, mass effect or edema. Moderate atrophy of the brain. Evidence of chronic small vessel disease involving white matter tracts. History of prostate cancer. History of renal stone and CKD. Dementia HTN CVA hx IVDA Plan: -Continue to monitor off abx -05/07 SP IV zosyn # 5 - 05/02 Sp Ceftriaxone d# 3 -01/06 SP Bactrim DS 1 tab bid #07/29 for possible ESBL UTI and PO Amoxicillin #5/5 for enterococcal coverage -01/10 SP Ertapenem #4 -01/06 SP IV Vancomycin #2 -01/05 SP Ceftriaxone x1 -11/12/17 SP PO ampicillin #14 Subjective Allergies: Coded Allergies: NO KNOWN ALLERGIES (Verified Allergy, Unknown, 05/05/18) Subjective afebrile no leukocytosis off abx Objective Vital Signs Last 24 Hour Vital Signs Date Time Temp Pulse Resp B/P (MAP) Pulse Ox O2 Delivery O2 Flow Rate FiO2 05/12/18 16:00 96.6 103 20 129/56 (80) 97 96.6 05/12/18 12:00 97.5 105 20 118/72 (87) 97 97.5 05/12/18 09:57 Room Air 05/12/18 09:00 87 104/67 05/12/18 08:00 97.3 87 20 104/67 (79) 94 97.3 05/12/18 04:00 97.5 78 18 127/68 (87) 94 97.5 05/12/18 00:00 97.5 85 18 121/75 (90) 97 97.5 05/11/18 21:00 Room Air 05/11/18 20:49 94 126/72 05/11/18 20:00 97.9 89 21 126/72 (90) 94 97.9 Height (Feet): 5 Height (Inches): 10.00 Weight (Pounds): 139 Objective HEENT: anicteric Respiratory/Chest: no respiratory distress Cardiovascular: regularly irregular Abdomen: non distended Current Medications Medications (Trade) Dose Ordered Sig/Lucie Route PRN Reason Start Time Stop Time Status Last Admin Dose Admin Acetaminophen (Tylenol) 650 mg Q4H PRN ORAL fever 04/29/18 19:30 05/29/18 19:29 Al Hydroxide/Mg Hydroxide (Mylanta II) 30 ml Q6H PRN ORAL dyspepsia 04/29/18 19:30 05/29/18 19:29 Dextrose (Dextrose 50%) 25 ml STAT PRN IV Hypoglycemia 04/29/18 19:30 05/29/18 19:29 Dextrose (Dextrose 50%) 50 ml STAT PRN IV Hypoglycemia 04/29/18 19:45 05/29/18 19:44 Haloperidol (Haldol) 5 mg Q4H PRN ORAL Agitation 04/29/18 19:45 05/29/18 19:29 05/10/18 04:36 Haloperidol Lactate (Haldol) 5 mg QPM IM 05/08/18 16:30 06/07/18 16:29 05/12/18 16:39 Lorazepam (Ativan 2mg/ml 1ml) 1 mg Q4H PRN IM For Anxiety 05/08/18 10:02 05/19/18 10:01 05/11/18 20:48 Metoprolol Tartrate (Lopressor) 25 mg Q12HR ORAL 04/29/18 21:00 05/29/18 20:59 05/11/18 20:49 Mirtazapine (Remeron) 15 mg BEDTIME ORAL 04/29/18 21:00 05/29/18 20:59 05/11/18 20:49 Morphine Sulfate (Morphine Sulfate) 1 mg Q4H PRN IVP Moderate Pain (Pain Scale 4-6) 05/07/18 12:00 05/14/18 11:59 05/07/18 20:22 Olanzapine (ZyPREXA) 15 mg QHS ORAL 05/07/18 21:00 06/06/18 20:59 05/11/18 21:41 Ondansetron HCl (Zofran) 4 mg Q6H PRN IVP Nausea & Vomiting 04/29/18 19:30 05/29/18 19:29 Polyethylene Glycol (Miralax) 17 gm HSPRN PRN ORAL Constipation 04/29/18 19:30 05/29/18 19:29 Tamsulosin HCl (Flomax) 0.4 mg BEDTIME ORAL 04/29/18 21:00 05/29/18 20:59 05/11/18 20:49 Janet Rowland M.D. May 12, 2018 18:16
[2018-05-12 20:00] VITALS: BP 104/57
[2018-05-12] MEDS: OLANZapine 10mg tab ORAL SCH (20:33)
[2018-05-12] MEDS: Tamsulosin 0.4mg cap ORAL SCH (20:36)
[2018-05-13] VITALS: BP 137/77
[2018-05-13] MEDS: LORazepam Inj 2mg/ml 1ml IM PRN (00:33)
[2018-05-13 04:00] VITALS: BP 130/80
[2018-05-13 08:00] VITALS: BP 99/72
[2018-05-13] MEDS: Metoprolol 25mg tab ORAL SCH ×3 (08:47→23:12)
[2018-05-13] MEDS ORDERED: Norco 5mg/325mg tab ORAL PRN (10:45)
[2018-05-13 11:54] VITALS: BP 100/75
--- NOTE | 2018-05-13 12:19 | Internal Med Progress Note ---
Subjective Date of Service: May 13, 2018 Physician Name Marshall,Alton Attending Physician Robin Wright MD Current Medications Medications (Trade) Dose Ordered Sig/Lucie Route PRN Reason Start Time Stop Time Status Last Admin Dose Admin Acetaminophen (Tylenol) 650 mg Q4H PRN ORAL fever 04/29/18 19:30 05/29/18 19:29 Acetaminophen/ Hydrocodone Bitart ([place] 5/325) 1 tab Q6H PRN ORAL Mild Pain (Pain Scale 1-3) 05/13/18 10:45 05/20/18 10:44 05/13/18 10:46 Al Hydroxide/Mg Hydroxide (Mylanta II) 30 ml Q6H PRN ORAL dyspepsia 04/29/18 19:30 05/29/18 19:29 Dextrose (Dextrose 50%) 25 ml STAT PRN IV Hypoglycemia 04/29/18 19:30 05/29/18 19:29 Dextrose (Dextrose 50%) 50 ml STAT PRN IV Hypoglycemia 04/29/18 19:45 05/29/18 19:44 Haloperidol (Haldol) 5 mg Q4H PRN ORAL Agitation 04/29/18 19:45 05/29/18 19:29 05/10/18 04:36 Haloperidol Lactate (Haldol) 5 mg QPM IM 05/08/18 16:30 06/07/18 16:29 05/12/18 16:39 Lorazepam (Ativan 2mg/ml 1ml) 1 mg Q4H PRN IM For Anxiety 05/08/18 10:02 05/19/18 10:01 05/13/18 00:33 Metoprolol Tartrate (Lopressor) 25 mg Q12HR ORAL 04/29/18 21:00 05/29/18 20:59 05/11/18 20:49 Mirtazapine (Remeron) 15 mg BEDTIME ORAL 04/29/18 21:00 05/29/18 20:59 05/12/18 20:35 Morphine Sulfate (Morphine Sulfate) 1 mg Q4H PRN IVP Moderate Pain (Pain Scale 4-6) 05/07/18 12:00 05/14/18 11:59 05/07/18 20:22 Olanzapine (ZyPREXA) 15 mg QHS ORAL 05/07/18 21:00 06/06/18 20:59 05/12/18 20:33 Ondansetron HCl (Zofran) 4 mg Q6H PRN IVP Nausea & Vomiting 04/29/18 19:30 05/29/18 19:29 Polyethylene Glycol (Miralax) 17 gm HSPRN PRN ORAL Constipation 04/29/18 19:30 05/29/18 19:29 Tamsulosin HCl (Flomax) 0.4 mg BEDTIME ORAL 04/29/18 21:00 05/29/18 20:59 05/12/18 20:36 Allergies: Coded Allergies: NO KNOWN ALLERGIES (Verified Allergy, Unknown, 05/05/18) ROS Limited/Unobtainable: Yes Subjective 67 YO M admitted for generalized weakness. Now UTI. Still confused. Cover for Int Med-Dr Wright. Await transfer to long term fac Objective Last Vital Signs Date Time Temp Pulse Resp B/P (MAP) Pulse Ox O2 Delivery O2 Flow Rate FiO2 05/13/18 11:54 98.0 100 19 100/75 (83) 98 98.0 05/13/18 08:50 Room Air Intake and Output 05/12/18 05/13/18 19:00 07:00 Intake Total 480 ml Balance 480 ml Intake Oral 480 ml # Voids 4 2 # Bowel Movements 3 Objective General Appearance: alert, mild distress, thin EENT: PERRL/EOMI, normal ENT inspection Neck: non-tender, normal alignment, supple, normal inspection Cardiovascular: normal peripheral pulses, normal rate, regular rhythm, no gallop/murmur, no JVD Respiratory/Chest: chest wall non-tender, lungs clear, normal breath sounds, no respiratory distress, no accessory muscle use Abdomen: normal bowel sounds, non tender, soft, no organomegaly, no mass Extremities: normal range of motion Neurologic: manager gas II-XII 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 (2) HTN (hypertension) Assessment & Plan: Continue metoprolol (3) Hepatitis C (4) Cerebral vascular disease (5) UTI (urinary tract infection) Assessment & Plan: ESBL E. Coli. D/C zosyn per ID. (6) Weakness (7) Prostate cancer (8) Agitation Assessment & Plan: See psych eval Assessment/Plan Discharge plan: long term facility Alton Marshall MD May 13, 2018 12:19
--- NOTE | 2018-05-13 13:39 | Pulmonology Progress Note ---
Assessment/Plan Problems: (1) ATN (acute tubular necrosis) (2) Acute encephalopathy (3) Dementia (4) Prostate cancer (5) Paranoia (6) Frequent falls Assessment/Plan pt still confused eating better still has auditory hallucination all reviewed, including meds and notes pt/ot doesn't want the previous [facility] case management consult Subjective ROS Limited/Unobtainable: No Constitutional: Reports: no symptoms HEENT: Repors: no symptoms Respiratory: Reports: no symptoms Cardiovascular: Reports: no symptoms Allergies: Coded Allergies: NO KNOWN ALLERGIES (Verified Allergy, Unknown, 05/05/18) Objective Last 24 Hour Vital Signs Date Time Temp Pulse Resp B/P (MAP) Pulse Ox O2 Delivery O2 Flow Rate FiO2 05/13/18 11:54 98.0 100 19 100/75 (83) 98 98.0 05/13/18 11:45 98.0 05/13/18 10:46 97.8 05/13/18 08:50 Room Air 05/13/18 08:47 104 99/72 05/13/18 08:00 97.8 104 20 99/72 (81) 98 97.8 05/13/18 04:00 97.7 87 18 130/80 (97) 93 97.7 05/13/18 00:00 97.9 93 19 137/77 (97) 96 97.9 05/12/18 21:00 Room Air 05/12/18 20:31 111 104/57 05/12/18 20:00 97.9 111 18 104/57 (73) 96 97.9 05/12/18 16:00 96.6 103 20 129/56 (80) 97 96.6 Intake and Output 05/12/18 05/13/18 19:00 07:00 Intake Total 480 ml Balance 480 ml Intake Oral 480 ml # Voids 4 2 # Bowel Movements 3 Objective General Appearance: WD/WN HEENT: normocephalic, atraumatic Respiratory/Chest: chest wall non-tender, lungs clear Breasts: no masses Cardiovascular: normal peripheral pulses Abdomen: normal bowel sounds, soft, non tender Genitourinary: normal external genitalia Extremities: no cyanosis Skin: no rash 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 grossly normal Lymphatic: no neck adenopathy Current Medications Medications (Trade) Dose Ordered Sig/Lucie Route PRN Reason Start Time Stop Time Status Last Admin Dose Admin Acetaminophen (Tylenol) 650 mg Q4H PRN ORAL fever 04/29/18 19:30 05/29/18 19:29 Acetaminophen/ Hydrocodone Bitart ([place] 5/325) 1 tab Q6H PRN ORAL Mild Pain (Pain Scale 1-3) 05/13/18 10:45 05/20/18 10:44 05/13/18 10:46 Al Hydroxide/Mg Hydroxide (Mylanta II) 30 ml Q6H PRN ORAL dyspepsia 04/29/18 19:30 05/29/18 19:29 Dextrose (Dextrose 50%) 25 ml STAT PRN IV Hypoglycemia 04/29/18 19:30 05/29/18 19:29 Dextrose (Dextrose 50%) 50 ml STAT PRN IV Hypoglycemia 04/29/18 19:45 05/29/18 19:44 Haloperidol (Haldol) 5 mg Q4H PRN ORAL Agitation 04/29/18 19:45 05/29/18 19:29 05/10/18 04:36 Haloperidol Lactate (Haldol) 5 mg QPM IM 05/08/18 16:30 06/07/18 16:29 05/12/18 16:39 Lorazepam (Ativan 2mg/ml 1ml) 1 mg Q4H PRN IM For Anxiety 05/08/18 10:02 05/19/18 10:01 05/13/18 00:33 Metoprolol Tartrate (Lopressor) 25 mg Q12HR ORAL 04/29/18 21:00 05/29/18 20:59 05/11/18 20:49 Mirtazapine (Remeron) 15 mg BEDTIME ORAL 04/29/18 21:00 05/29/18 20:59 05/12/18 20:35 Morphine Sulfate (Morphine Sulfate) 1 mg Q4H PRN IVP Moderate Pain (Pain Scale 4-6) 05/07/18 12:00 05/14/18 11:59 05/07/18 20:22 Olanzapine (ZyPREXA) 15 mg QHS ORAL 05/07/18 21:00 06/06/18 20:59 05/12/18 20:33 Ondansetron HCl (Zofran) 4 mg Q6H PRN IVP Nausea & Vomiting 04/29/18 19:30 05/29/18 19:29 Polyethylene Glycol (Miralax) 17 gm HSPRN PRN ORAL Constipation 04/29/18 19:30 05/29/18 19:29 Tamsulosin HCl (Flomax) 0.4 mg BEDTIME ORAL 04/29/18 21:00 05/29/18 20:59 05/12/18 20:36 German Mooney MD May 13, 2018 13:39
--- NOTE | 2018-05-13 15:43 | Nephrology Progress Note ---
Assessment/Plan Assessment 1. Hypernatremia.resolved 2. hypokalemia 3. Acute renal failure. 4. Chronic kidney disease. 5. Recurrent pyelonephritis complicated with nephrolithiasis and right hydronephrosis. 6. Failure to thrive. Plan plan to continue current iv monitoring renal function avoid NSIAD nutritional support Subjective Constitutional: Reports: no symptoms HEENT: Reports: no symptoms Genitourinary: Reports: no symptoms Neurologic/Psychiatric: Reports: no symptoms Subjective NAD no events overnight no changes in [place] Objective Objective Last 24 Hour Vital Signs Date Time Temp Pulse Resp B/P (MAP) Pulse Ox O2 Delivery O2 Flow Rate FiO2 05/13/18 11:54 98.0 100 19 100/75 (83) 98 98.0 05/13/18 11:45 98.0 05/13/18 10:46 97.8 05/13/18 08:50 Room Air 05/13/18 08:47 104 99/72 05/13/18 08:00 97.8 104 20 99/72 (81) 98 97.8 05/13/18 04:00 97.7 87 18 130/80 (97) 93 97.7 05/13/18 00:00 97.9 93 19 137/77 (97) 96 97.9 05/12/18 21:00 Room Air 05/12/18 20:31 111 104/57 05/12/18 20:00 97.9 111 18 104/57 (73) 96 97.9 05/12/18 16:00 96.6 103 20 129/56 (80) 97 96.6 Intake and Output 05/12/18 05/13/18 19:00 07:00 Intake Total 480 ml Balance 480 ml Intake Oral 480 ml # Voids 4 2 # Bowel Movements 3 Height (Feet): 5 Height (Inches): 10.00 Weight (Pounds): 143 Objective HEAD AND NECK: No JVP. No LAD. No thyromegaly. Extraocular movement is intact. Pupils are reactive to light and accommodation. LUNGS: Clear to auscultation. CARDIAC: Regular rate and rhythm. S1 and S2. No murmur. No rub. ABDOMEN: Soft, nontender, and nondistended. No organomegaly. EXTREMITIES: No edema. No clubbing. No cyanosis. Pamela Davila MD May 13, 2018 15:43
--- NOTE | 2018-05-13 15:43 | General Progress Note ---
Assessment/Plan Assessment/Plan Dementia with behavioral dist encephalopathy increase zyprexa qhs haldol prn remeron haldol standing Subjective Date patient seen: May 13, 2018 Neurologic/Psychiatric: Reports: anxiety, depressed, emotional problems Allergies: Coded Allergies: NO KNOWN ALLERGIES (Verified Allergy, Unknown, 05/05/18) Subjective more agitated and not eating well Objective Last 24 Hour Vital Signs Date Time Temp Pulse Resp B/P (MAP) Pulse Ox O2 Delivery O2 Flow Rate FiO2 05/13/18 11:54 98.0 100 19 100/75 (83) 98 98.0 05/13/18 11:45 98.0 05/13/18 10:46 97.8 05/13/18 08:50 Room Air 05/13/18 08:47 104 99/72 05/13/18 08:00 97.8 104 20 99/72 (81) 98 97.8 05/13/18 04:00 97.7 87 18 130/80 (97) 93 97.7 05/13/18 00:00 97.9 93 19 137/77 (97) 96 97.9 05/12/18 21:00 Room Air 05/12/18 20:31 111 104/57 05/12/18 20:00 97.9 111 18 104/57 (73) 96 97.9 05/12/18 16:00 96.6 103 20 129/56 (80) 97 96.6 Intake and Output 05/12/18 05/13/18 19:00 07:00 Intake Total 480 ml Balance 480 ml Intake Oral 480 ml # Voids 4 2 # Bowel Movements 3 Height (Feet): 5 Height (Inches): 10.00 Weight (Pounds): 143 Mckenna Bermudez MD May 13, 2018 15:43
--- NOTE | 2018-05-13 15:45 | General Progress Note ---
Assessment/Plan Assessment/Plan Dementia with behavioral dist encephalopathy increase zyprexa qhs haldol prn remeron haldol standing Subjective Date patient seen: May 13, 2018 Neurologic/Psychiatric: Reports: anxiety, depressed Allergies: Coded Allergies: NO KNOWN ALLERGIES (Verified Allergy, Unknown, 05/05/18) Subjective more agitated and not eating well Objective Last 24 Hour Vital Signs Date Time Temp Pulse Resp B/P (MAP) Pulse Ox O2 Delivery O2 Flow Rate FiO2 05/13/18 11:54 98.0 100 19 100/75 (83) 98 98.0 05/13/18 11:45 98.0 05/13/18 10:46 97.8 05/13/18 08:50 Room Air 05/13/18 08:47 104 99/72 05/13/18 08:00 97.8 104 20 99/72 (81) 98 97.8 05/13/18 04:00 97.7 87 18 130/80 (97) 93 97.7 05/13/18 00:00 97.9 93 19 137/77 (97) 96 97.9 05/12/18 21:00 Room Air 05/12/18 20:31 111 104/57 05/12/18 20:00 97.9 111 18 104/57 (73) 96 97.9 05/12/18 16:00 96.6 103 20 129/56 (80) 97 96.6 Intake and Output 05/12/18 05/13/18 19:00 07:00 Intake Total 480 ml Balance 480 ml Intake Oral 480 ml # Voids 4 2 # Bowel Movements 3 Height (Feet): 5 Height (Inches): 10.00 Weight (Pounds): 143 Mckenna Bermudez MD May 13, 2018 15:45
[2018-05-13 16:00] VITALS: BP 115/70
[2018-05-13] MEDS: Haloperidol 5mg/ml Inj IM SCH (17:13)
--- NOTE | 2018-05-13 17:45 | Infectious Diseases Prog Note ---
Assessment/Plan Assessment/Plan A Assessment: Pyuria, probable UTI vs colonization, s/p Rx -u/a wbc 30-40,nit +, leuk +3; ucx >100k ESBL Ecoli (S Zosyn) Afebrile No leukocytosis Hx of Recurrent UTI -01/2018: -u/a wbc 30-40, nit +, leuk +3; ucx >100K ESBL E.coli (S zozyn, nitrofurantoin, bactrim, ertapenem;R levo); repeat u/a 01/08 wbc tntc, nit+, leuk +3; ucx 50-60k E.fecalis (S vanco, amp; R levo) -10/2017: -u/a WBC TNTC- ucx >100k E. fecalis (S Vanco, amp), 30-40k mixed gram positive growth Chronic R ureterolithiasis and K staghorn calculus -CT abd/p 01/2018 : Distal right ureteral calculi, stable over multiple earlier studies dating back to 09/20/2014, again demonstrated. There is persistent right hydronephrosis and right renal atrophy. Nonobstructive right lower pole renal calculi are again demonstrated. Large left renal staghorn calculus, also present as far back as 2013. Mild right hydronephrosis but no ureteral calculi or hydroureter. Other nonobstructive left lower pole renal calculi are also evident. Gas bubbles within the left renal collecting system and bladder, markedly decreased from the previous 2016 exam. Uncertain as to whether these represent bladder instrumentation with reflux into the left renal collecting system, versus artifact due to infection with gas-forming organism. Correlate with clinical and laboratory findings. The bladder wall is also mildly thickened , unchanged from previously. Cystitis a possibility. Left renal cyst, also previously described. Cholelithiasis, new since prior study. Left basilar dependent pulmonary parenchymal atelectasis. Evidence of COPD, with hyperinflation and a single small bulla. Evidence of prior prostatectomy Chronic Hep C infection - hEp C VL 42K 10/2017 -Hep A Imm, Hep B Ab neg, HIV Neg History of recurrent urinary tract infection. History of osteomyelitis of the second left toe and distal phalanx. Dehydration / HAMZAH improving Generalized weakness -CT head: No acute intracranial bleed, mass effect or edema. Moderate atrophy of the brain. Evidence of chronic small vessel disease involving white matter tracts. History of prostate cancer. History of renal stone and CKD. Dementia HTN CVA hx IVDA Plan: -Continue to monitor off abx -05/07 SP IV zosyn # 5 - 05/02 Sp Ceftriaxone d# 3 -01/06 SP Bactrim DS 1 tab bid #07/29 for possible ESBL UTI and PO Amoxicillin #5/5 for enterococcal coverage -01/10 SP Ertapenem #4 -01/06 SP IV Vancomycin #2 -01/05 SP Ceftriaxone x1 -11/12/17 SP PO ampicillin #14 Subjective Allergies: Coded Allergies: NO KNOWN ALLERGIES (Verified Allergy, Unknown, 05/05/18) Subjective afebrile no leukocytosis off abx Objective Vital Signs Last 24 Hour Vital Signs Date Time Temp Pulse Resp B/P (MAP) Pulse Ox O2 Delivery O2 Flow Rate FiO2 05/13/18 16:00 98.1 78 19 115/70 (85) 97 98.1 05/13/18 11:54 98.0 100 19 100/75 (83) 98 98.0 05/13/18 11:45 98.0 05/13/18 10:46 97.8 05/13/18 08:50 Room Air 05/13/18 08:47 104 99/72 05/13/18 08:00 97.8 104 20 99/72 (81) 98 97.8 05/13/18 04:00 97.7 87 18 130/80 (97) 93 97.7 05/13/18 00:00 97.9 93 19 137/77 (97) 96 97.9 05/12/18 21:00 Room Air 05/12/18 20:31 111 104/57 05/12/18 20:00 97.9 111 18 104/57 (73) 96 97.9 Height (Feet): 5 Height (Inches): 10.00 Weight (Pounds): 143 Objective HEENT: anicteric Respiratory/Chest: no respiratory distress Cardiovascular: regularly irregular Abdomen: non distended Current Medications Medications (Trade) Dose Ordered Sig/Lucie Route PRN Reason Start Time Stop Time Status Last Admin Dose Admin Acetaminophen (Tylenol) 650 mg Q4H PRN ORAL fever 04/29/18 19:30 05/29/18 19:29 Acetaminophen/ Hydrocodone Bitart ([place] 5/325) 1 tab Q6H PRN ORAL Mild Pain (Pain Scale 1-3) 05/13/18 10:45 05/20/18 10:44 05/13/18 10:46 Al Hydroxide/Mg Hydroxide (Mylanta II) 30 ml Q6H PRN ORAL dyspepsia 04/29/18 19:30 05/29/18 19:29 Dextrose (Dextrose 50%) 25 ml STAT PRN IV Hypoglycemia 04/29/18 19:30 05/29/18 19:29 Dextrose (Dextrose 50%) 50 ml STAT PRN IV Hypoglycemia 04/29/18 19:45 05/29/18 19:44 Haloperidol (Haldol) 5 mg Q4H PRN ORAL Agitation 04/29/18 19:45 05/29/18 19:29 05/10/18 04:36 Haloperidol Lactate (Haldol) 5 mg QPM IM 05/08/18 16:30 06/07/18 16:29 05/13/18 17:13 Lorazepam (Ativan 2mg/ml 1ml) 1 mg Q4H PRN IM For Anxiety 05/08/18 10:02 05/19/18 10:01 05/13/18 00:33 Metoprolol Tartrate (Lopressor) 25 mg Q12HR ORAL 04/29/18 21:00 05/29/18 20:59 05/11/18 20:49 Mirtazapine (Remeron) 15 mg BEDTIME ORAL 04/29/18 21:00 05/29/18 20:59 05/12/18 20:35 Morphine Sulfate (Morphine Sulfate) 1 mg Q4H PRN IVP Moderate Pain (Pain Scale 4-6) 05/07/18 12:00 05/14/18 11:59 05/07/18 20:22 Olanzapine (ZyPREXA) 15 mg QHS ORAL 05/07/18 21:00 06/06/18 20:59 05/12/18 20:33 Ondansetron HCl (Zofran) 4 mg Q6H PRN IVP Nausea & Vomiting 04/29/18 19:30 05/29/18 19:29 Polyethylene Glycol (Miralax) 17 gm HSPRN PRN ORAL Constipation 04/29/18 19:30 05/29/18 19:29 Tamsulosin HCl (Flomax) 0.4 mg BEDTIME ORAL 04/29/18 21:00 05/29/18 20:59 05/12/18 20:36 Janet Rowland M.D. May 13, 2018 17:45
[2018-05-13 19:31] VITALS: BP 96/56
[2018-05-13] MEDS: Tamsulosin 0.4mg cap ORAL SCH ×2 (21:00→23:12)
[2018-05-13] MEDS: OLANZapine 10mg tab ORAL SCH ×2 (21:00→23:12)
[2018-05-14] VITALS: BP 140/84
[2018-05-14 04:55] VITALS: BP 110/59
[2018-05-14 07:29] LABS: BASOPHILS % (AUTO) 1.1 % (0.0-2.0); EOSINOPHILS % (AUTO) 2.5 % (0.0-3.0); HEMATOCRIT 37.6 % (42.0-52.0); HEMOGLOBIN 12.2 G/DL (14.2-18.0); LYMPHOCYTES % (AUTO) 47.7 % (20.0-45.0); MEAN CORPUSCULAR VOLUME 92 FL (80-99); MONOCYTES % (AUTO) 9.1 % (1.0-10.0); NEUTROPHILS % (AUTO) 39.6 % (45.0-75.0); PLATELET COUNT 249 K/UL (150-450); RED BLOOD COUNT 4.08 M/UL (4.70-6.10); RED CELL DISTRIBUTION WIDTH 13.4 % (11.6-14.8)
[2018-05-14 07:56] LABS: ALANINE AMINOTRANSFERASE 7 U/L (12-78); ALBUMIN 2.9 G/DL (3.4-5.0); ALBUMIN/GLOBULIN RATIO 0.6 (1.0-2.7); ALKALINE PHOSPHATASE 84 U/L (46-116); ANION GAP 5 mmol/L (5-15); ASPARTATE AMINO TRANSFERASE 37 U/L (15-37); BILIRUBIN,TOTAL 0.3 MG/DL (0.2-1.0); BLOOD UREA NITROGEN 44 mg/dL (7-18); CALCIUM 8.9 MG/DL (8.5-10.1); CARBON DIOXIDE 30 MMOL/L (21-32); CHLORIDE 106 MMOL/L (98-107); PHOSPHORUS 3.1 MG/DL (2.5-4.9); POTASSIUM 4.3 MMOL/L (3.5-5.1); SODIUM 141 MMOL/L (136-145)
[2018-05-14 08:00] VITALS: BP 96/65
[2018-05-14] MEDS: Metoprolol 25mg tab ORAL SCH (09:00)
--- NOTE | 2018-05-14 09:17 | Nephrology Progress Note ---
Assessment/Plan Assessment 1. Hypernatremia.resolved 2. hypokalemia 3. Acute renal failure. 4. Chronic kidney disease. 5. Recurrent pyelonephritis complicated with nephrolithiasis and right hydronephrosis. 6. Failure to thrive. Plan plan to continue current iv monitoring renal function avoid NSIAD nutritional support Subjective Subjective NAD no events overnight no changes in [place] Objective Objective Last 24 Hour Vital Signs Date Time Temp Pulse Resp B/P (MAP) Pulse Ox O2 Delivery O2 Flow Rate FiO2 05/14/18 09:09 Room Air 05/14/18 09:00 93 96/65 05/14/18 08:00 98.3 93 21 96/65 (75) 95 98.3 05/14/18 04:55 97.7 88 20 110/59 (76) 98 97.7 05/14/18 00:00 97.5 100 20 140/84 (102) 98 97.5 05/13/18 23:12 98 115/65 05/13/18 21:00 Room Air 05/13/18 19:31 97.9 98 20 96/56 (69) 100 97.9 05/13/18 16:00 98.1 78 19 115/70 (85) 97 98.1 05/13/18 11:54 98.0 100 19 100/75 (83) 98 98.0 05/13/18 11:45 98.0 05/13/18 10:46 97.8 Intake and Output 05/13/18 05/14/18 19:00 07:00 Intake Total 300 ml 400 ml Balance 300 ml 400 ml Intake Oral 300 ml 400 ml # Voids 2 2 # Bowel Movements 1 Laboratory Tests 05/14/18 06:00: White Blood Count 7.0, Red Blood Count 4.08L, Hemoglobin 12.2L, Hematocrit 37.6L , Mean Corpuscular Volume 92, Mean Corpuscular Hemoglobin 29.8, Mean Corpuscular Hemoglobin Concent 32.4, Red Cell Distribution Width 13.4, Platelet Count 249, Mean Platelet Volume 6.4L, Neutrophils (%) (Auto) 39.6L, Lymphocytes (%) (Auto) 47.7H, Monocytes (%) (Auto) 9.1, Eosinophils (%) (Auto) 2.5, Basophils (%) (Auto) 1.1, Sodium Level 141, Potassium Level 4.3, Chloride Level 106, Carbon Dioxide Level 30, Anion Gap 5, Blood Urea Nitrogen 44H, Creatinine 2.0H, Estimat Glomerular Filtration Rate 40.5, Glucose Level 91, Calcium Level 8.9, Phosphorus Level 3.1, Magnesium Level 2.1, Total Bilirubin 0.3, Aspartate Amino Transf (AST/SGOT) 37, Alanine Aminotransferase (ALT/SGPT) 7L, Alkaline Phosphatase 84, Total Protein 7.5, Albumin 2.9L, Globulin 4.6, Albumin/Globulin Ratio 0.6L Height (Feet): 5 Height (Inches): 10.00 Weight (Pounds): 143 Objective HEAD AND NECK: No JVP. No LAD. No thyromegaly. Extraocular movement is intact. Pupils are reactive to light and accommodation. LUNGS: Clear to auscultation. CARDIAC: Regular rate and rhythm. S1 and S2. No murmur. No rub. ABDOMEN: Soft, nontender, and nondistended. No organomegaly. EXTREMITIES: No edema. No clubbing. No cyanosis. Pamela Davila MD May 14, 2018 09:17
[2018-05-14 12:00] VITALS: BP 101/67
--- NOTE | 2018-05-14 14:03 | Pulmonology Progress Note ---
Assessment/Plan Problems: (1) ATN (acute tubular necrosis) (2) Acute encephalopathy (3) Dementia (4) Prostate cancer (5) Paranoia (6) Frequent falls Assessment/Plan pt still confused eating better still has auditory hallucination all reviewed, including meds and notes pt/ot doesn't want the previous [facility] case management consult Subjective ROS Limited/Unobtainable: No Constitutional: Reports: no symptoms HEENT: Repors: no symptoms Allergies: Coded Allergies: NO KNOWN ALLERGIES (Verified Allergy, Unknown, 05/05/18) Objective Last 24 Hour Vital Signs Date Time Temp Pulse Resp B/P (MAP) Pulse Ox O2 Delivery O2 Flow Rate FiO2 05/14/18 12:00 98.1 104 20 101/67 (78) 96 98.1 05/14/18 09:09 Room Air 05/14/18 09:00 93 96/65 05/14/18 08:00 98.3 93 21 96/65 (75) 95 98.3 05/14/18 04:55 97.7 88 20 110/59 (76) 98 97.7 05/14/18 00:00 97.5 100 20 140/84 (102) 98 97.5 05/13/18 23:12 98 115/65 05/13/18 21:00 Room Air 05/13/18 19:31 97.9 98 20 96/56 (69) 100 97.9 05/13/18 16:00 98.1 78 19 115/70 (85) 97 98.1 Intake and Output 05/13/18 05/14/18 19:00 07:00 Intake Total 300 ml 400 ml Balance 300 ml 400 ml Intake Oral 300 ml 400 ml # Voids 2 2 # Bowel Movements 1 Objective General Appearance: WD/WN HEENT: normocephalic, atraumatic Respiratory/Chest: chest wall non-tender, lungs clear Breasts: no masses Cardiovascular: normal peripheral pulses Abdomen: normal bowel sounds, soft, non tender Genitourinary: normal external genitalia Extremities: no cyanosis Skin: no rash 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 grossly normal Lymphatic: no neck adenopathy Laboratory Tests 05/14/18 06:00: White Blood Count 7.0, Red Blood Count 4.08L, Hemoglobin 12.2L, Hematocrit 37.6L , Mean Corpuscular Volume 92, Mean Corpuscular Hemoglobin 29.8, Mean Corpuscular Hemoglobin Concent 32.4, Red Cell Distribution Width 13.4, Platelet Count 249, Mean Platelet Volume 6.4L, Neutrophils (%) (Auto) 39.6L, Lymphocytes (%) (Auto) 47.7H, Monocytes (%) (Auto) 9.1, Eosinophils (%) (Auto) 2.5, Basophils (%) (Auto) 1.1, Sodium Level 141, Potassium Level 4.3, Chloride Level 106, Carbon Dioxide Level 30, Anion Gap 5, Blood Urea Nitrogen 44H, Creatinine 2.0H, Estimat Glomerular Filtration Rate 40.5, Glucose Level 91, Calcium Level 8.9, Phosphorus Level 3.1, Magnesium Level 2.1, Total Bilirubin 0.3, Aspartate Amino Transf (AST/SGOT) 37, Alanine Aminotransferase (ALT/SGPT) 7L, Alkaline Phosphatase 84, Total Protein 7.5, Albumin 2.9L, Globulin 4.6, Albumin/Globulin Ratio 0.6L Current Medications Medications (Trade) Dose Ordered Sig/Lucie Route PRN Reason Start Time Stop Time Status Last Admin Dose Admin Acetaminophen (Tylenol) 650 mg Q4H PRN ORAL fever 04/29/18 19:30 05/29/18 19:29 Acetaminophen/ Hydrocodone Bitart ([place] 5/325) 1 tab Q6H PRN ORAL Mild Pain (Pain Scale 1-3) 05/13/18 10:45 05/20/18 10:44 05/13/18 10:46 Al Hydroxide/Mg Hydroxide (Mylanta II) 30 ml Q6H PRN ORAL dyspepsia 04/29/18 19:30 05/29/18 19:29 Dextrose (Dextrose 50%) 25 ml STAT PRN IV Hypoglycemia 04/29/18 19:30 05/29/18 19:29 Dextrose (Dextrose 50%) 50 ml STAT PRN IV Hypoglycemia 04/29/18 19:45 05/29/18 19:44 Haloperidol (Haldol) 5 mg Q4H PRN ORAL Agitation 04/29/18 19:45 05/29/18 19:29 05/10/18 04:36 Haloperidol Lactate (Haldol) 5 mg QPM IM 05/08/18 16:30 06/07/18 16:29 05/13/18 17:13 Lorazepam (Ativan 2mg/ml 1ml) 1 mg Q4H PRN IM For Anxiety 05/08/18 10:02 05/19/18 10:01 05/13/18 00:33 Metoprolol Tartrate (Lopressor) 25 mg Q12HR ORAL 04/29/18 21:00 05/29/18 20:59 05/13/18 23:12 Mirtazapine (Remeron) 15 mg BEDTIME ORAL 04/29/18 21:00 05/29/18 20:59 05/13/18 23:11 Olanzapine (ZyPREXA) 15 mg QHS ORAL 05/07/18 21:00 06/06/18 20:59 05/13/18 23:12 Ondansetron HCl (Zofran) 4 mg Q6H PRN IVP Nausea & Vomiting 04/29/18 19:30 05/29/18 19:29 Polyethylene Glycol (Miralax) 17 gm HSPRN PRN ORAL Constipation 04/29/18 19:30 05/29/18 19:29 Sodium Chloride 1,000 ml @ 50 mls/hr Q20H IV 05/14/18 10:00 06/13/18 09:59 Tamsulosin HCl (Flomax) 0.4 mg BEDTIME ORAL 04/29/18 21:00 05/29/18 20:59 05/13/18 23:12 German Mooney MD May 14, 2018 14:03
--- NOTE | 2018-05-14 14:14 | General Progress Note ---
Assessment/Plan Status: stable Assessment/Plan Dementia with behavioral dist encephalopathy increase zyprexa qhs haldol prn remeron haldol standing Subjective Date patient seen: May 14, 2018 Neurologic/Psychiatric: Reports: anxiety, depressed Allergies: Coded Allergies: NO KNOWN ALLERGIES (Verified Allergy, Unknown, 05/05/18) Subjective less agitated and not eating well the pt participated in pt today Objective Last 24 Hour Vital Signs Date Time Temp Pulse Resp B/P (MAP) Pulse Ox O2 Delivery O2 Flow Rate FiO2 05/14/18 12:00 98.1 104 20 101/67 (78) 96 98.1 05/14/18 09:09 Room Air 05/14/18 09:00 93 96/65 05/14/18 08:00 98.3 93 21 96/65 (75) 95 98.3 05/14/18 04:55 97.7 88 20 110/59 (76) 98 97.7 05/14/18 00:00 97.5 100 20 140/84 (102) 98 97.5 05/13/18 23:12 98 115/65 05/13/18 21:00 Room Air 05/13/18 19:31 97.9 98 20 96/56 (69) 100 97.9 05/13/18 16:00 98.1 78 19 115/70 (85) 97 98.1 Intake and Output 05/13/18 05/14/18 19:00 07:00 Intake Total 300 ml 400 ml Balance 300 ml 400 ml Intake Oral 300 ml 400 ml # Voids 2 2 # Bowel Movements 1 Laboratory Tests 05/14/18 06:00: White Blood Count 7.0, Red Blood Count 4.08L, Hemoglobin 12.2L, Hematocrit 37.6L , Mean Corpuscular Volume 92, Mean Corpuscular Hemoglobin 29.8, Mean Corpuscular Hemoglobin Concent 32.4, Red Cell Distribution Width 13.4, Platelet Count 249, Mean Platelet Volume 6.4L, Neutrophils (%) (Auto) 39.6L, Lymphocytes (%) (Auto) 47.7H, Monocytes (%) (Auto) 9.1, Eosinophils (%) (Auto) 2.5, Basophils (%) (Auto) 1.1, Sodium Level 141, Potassium Level 4.3, Chloride Level 106, Carbon Dioxide Level 30, Anion Gap 5, Blood Urea Nitrogen 44H, Creatinine 2.0H, Estimat Glomerular Filtration Rate 40.5, Glucose Level 91, Calcium Level 8.9, Phosphorus Level 3.1, Magnesium Level 2.1, Total Bilirubin 0.3, Aspartate Amino Transf (AST/SGOT) 37, Alanine Aminotransferase (ALT/SGPT) 7L, Alkaline Phosphatase 84, Total Protein 7.5, Albumin 2.9L, Globulin 4.6, Albumin/Globulin Ratio 0.6L Height (Feet): 5 Height (Inches): 10.00 Weight (Pounds): 143 General Appearance: no apparent distress, alert, confused Mckenna Bermudez MD May 14, 2018 14:13
[2018-05-14 16:00] VITALS: BP 104/63
[2018-05-14] MEDS: Haloperidol 5mg/ml Inj IM SCH (16:13)
--- NOTE | 2018-05-14 17:48 | Internal Med Progress Note ---
Subjective Date of Service: May 14, 2018 Physician Name Alton Marshall Attending Physician Robin Wrihgt MD Allergies: Coded Allergies: NO KNOWN ALLERGIES (Verified Allergy, Unknown, 05/05/18) ROS Limited/Unobtainable: Yes Subjective 67 YO M admitted for generalized weakness. Now UTI. Still confused. Cover for Int Med-Dr Wright. Await transfer to [facility] Objective Last Vital Signs Date Time Temp Pulse Resp B/P (MAP) Pulse Ox O2 Delivery O2 Flow Rate FiO2 05/14/18 16:00 98.4 96 20 104/63 (77) 98 98.4 05/14/18 09:09 Room Air Laboratory Tests Test 05/14/18 06:00 White Blood Count 7.0 K/UL (4.8-10.8) Red Blood Count 4.08 M/UL (4.70-6.10) L Hemoglobin 12.2 G/DL (14.2-18.0) L Hematocrit 37.6 % (42.0-52.0) L Mean Corpuscular Volume 92 FL (80-99) Mean Corpuscular Hemoglobin 29.8 PG (27.0-31.0) Mean Corpuscular Hemoglobin Concent 32.4 G/DL (32.0-36.0) Red Cell Distribution Width 13.4 % (11.6-14.8) Platelet Count 249 K/UL (150-450) Mean Platelet Volume 6.4 FL (6.5-10.1) L Neutrophils (%) (Auto) 39.6 % (45.0-75.0) L Lymphocytes (%) (Auto) 47.7 % (20.0-45.0) H Monocytes (%) (Auto) 9.1 % (1.0-10.0) Eosinophils (%) (Auto) 2.5 % (0.0-3.0) Basophils (%) (Auto) 1.1 % (0.0-2.0) Sodium Level 141 MMOL/L (136-145) Potassium Level 4.3 MMOL/L (3.5-5.1) Chloride Level 106 MMOL/L (98-107) Carbon Dioxide Level 30 MMOL/L (21-32) Anion Gap 5 mmol/L (5-15) Blood Urea Nitrogen 44 mg/dL (7-18) H Creatinine 2.0 MG/DL (0.55-1.30) H Estimat Glomerular Filtration Rate 40.5 mL/min (>60) Glucose Level 91 MG/DL (74-106) Calcium Level 8.9 MG/DL (8.5-10.1) Phosphorus Level 3.1 MG/DL (2.5-4.9) Magnesium Level 2.1 MG/DL (1.8-2.4) Total Bilirubin 0.3 MG/DL (0.2-1.0) Aspartate Amino Transf (AST/SGOT) 37 U/L (15-37) Alanine Aminotransferase (ALT/SGPT) 7 U/L (12-78) L Alkaline Phosphatase 84 U/L (46-116) Total Protein 7.5 G/DL (6.4-8.2) Albumin 2.9 G/DL (3.4-5.0) L Globulin 4.6 g/dL Albumin/Globulin Ratio 0.6 (1.0-2.7) L Intake and Output 05/13/18 05/14/18 19:00 07:00 Intake Total 300 ml 400 ml Balance 300 ml 400 ml Intake Oral 300 ml 400 ml # Voids 2 2 # Bowel Movements 1 Objective General Appearance: alert, mild distress, thin EENT: PERRL/EOMI, normal ENT inspection Neck: non-tender, normal alignment, supple, normal inspection Cardiovascular: normal peripheral pulses, normal rate, regular rhythm, no gallop/murmur, no JVD Respiratory/Chest: chest wall non-tender, lungs clear, normal breath sounds, no respiratory distress, no accessory muscle use Abdomen: normal bowel sounds, non tender, soft, no organomegaly, no mass Extremities: normal range of motion 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 (2) HTN (hypertension) Assessment & Plan: Continue metoprolol (3) Hepatitis C (4) Cerebral vascular disease (5) UTI (urinary tract infection) Assessment & Plan: ESBL E. Coli. D/C zosyn per ID. (6) Weakness (7) Prostate cancer (8) Agitation Assessment & Plan: See psych eval Assessment/Plan Discharge plan: [facility] nursing [facility] Alton Marshall MD May 14, 2018 17:48
--- NOTE | 2018-05-15 14:13 | Discharge Summary ---
Discharge Summary Discharge Summary _ DATE OF ADMISSION: 04/29/2018 DATE OF DISCHARGE: 05/14/2018 CONSULTANTS: Dr. Pamela Marshall BRIEF HOSPITAL COURSE: Patient is a 67-year-old -[place] male, who is a resident of [facility], presented to ED with chief complaint of generalized weakness and frequent falls. He has history of recurrent UTI, hypertension, CVA, Alzheimer's dementia, hepatitis C, prostate CA and osteomyelitis of the left toe. On evaluation at ED, blood work did not show any leukocytosis, potassium was elevated to 5.2, he had acute kidney injury with creatinine 2.4 and BUN 44. EKG was in sinus tachycardia with no ischemic changes. Chest x-ray showed no acute process. CT of the brain was unremarkable. Because of renal failure, hyperkalemia and frequent falls, patient was admitted for further workup. He was followed by supply chain director, renal function was monitored. Patient had acute renal failure/acute tubular necrosis on chronic renal insufficiency. Urinalysis with 30-40 WBC, 2-4 RBC, 3+ leukocyte esterase and positive nitrite. Urine culture with growth of Escherichia coli ESBL. He was given Zosyn x 5 days. He was given PT and OT and underwent swallow evaluation. He was placed on fall precautions. He had episodes of agitation, and has waxing and waning of consciousness. Psychiatric evaluation was done. He was diagnosed with dementia and behavioral disturbance. He was given Seroquel and Haldol when necessary. He was placed on Remeron daily at bedtime. He was eventually cleared for discharge however,had difficult placement. He was referred to multiple nursing homes and finally was accepted to [facility]. He was eventually discharged. FINAL DIAGNOSES: Acute kidney injury, acute tubular necrosis Acute Encephalopathy ESBL Escherichia coli UTI Hypertension Prostate CA Dementia with behavioral disturbance History of recurrent UTI complicated by nephrolithiasis and right hydronephrosis Frequent falls Hypernatremia Hypokalemia DISPOSITION: Patient was discharged to a SNF. DISCHARGE MEDICATIONS: Refer to Discharge Medication List. I have been assigned to dictate discharge summary on this account, and I was not involved in the patient's management. Yamini Vasquez NP May 15, 2018 14:13
== END 2018-05-14 16:50 | DRG 469 ==
LOC: EDBD 15:04 → EMR 15:35 → EDBEDREQ 16:07 → 4W 16:51 → EDBEDREQ 17:40 → 4W 21:50
DX: N17.0 Acute kidney failure with tubular necrosis (principal); G93.40 Encephalopathy, unspecified; E87.0 Hyperosmolality and hypernatremia; E87.5 Hyperkalemia; N13.6 Pyonephrosis; N39.0 Urinary tract infection, site not specified; G30.9 Alzheimer's disease, unspecified; F02.81 Dementia in other diseases classified elsewhere, unspecified severity, with behavioral disturbance; Z86.73 Personal history of transient ischemic attack (TIA), and cerebral infarction without residual deficits; Z86.19 Personal history of other infectious and parasitic diseases; Z85.46 Personal history of malignant neoplasm of prostate; R53.1 Weakness; Z88.4 Allergy status to anesthetic agent; Z79.82 Long term (current) use of aspirin; F22 Delusional disorders; R29.6 Repeated falls; B18.2 Chronic viral hepatitis C; Z89.422 Acquired absence of other left toe(s); F19.11 Other psychoactive substance abuse, in remission; I12.9 Hypertensive chronic kidney disease with stage 1 through stage 4 chronic kidney disease, or unspecified chronic kidney disease; N18.9 Chronic kidney disease, unspecified; F32.9 Major depressive disorder, single episode, unspecified; R62.7 Adult failure to thrive; B96.20 Unspecified Escherichia coli [E. coli] as the cause of diseases classified elsewhere; Z16.12 Extended spectrum beta lactamase (ESBL) resistance
CPT/HCPCS: 36415; 70450; 71045; 80048; 80053; 80061; 81001; 82270; 82378; 82550; 82553; 82607; 82746; 83540; 83550; 83615; 83735; 84100; 84133; 84153; 84154; 84300; 84443; 84484; 84550; 85007; 85025; 85044; 85060; 85610; 85651; 85730; 87081; 87086; 87181; 89050; 93005; 97802; 99285; J8499

== ENCOUNTER 2018-05-26 09:47 | Inpatient (IN) | payer MEDICARE, OTHER ==
[~2018-05-26] VITALS: Ht 170.2 cm; Wt 65.8 kg
--- NOTE | 2018-05-26 10:00 | Emergency Room Report ---
History of Present Illness General Chief Complaint: Altered Level of Consciousness Source: Patient, Medical Record Present Illness HPI Patient was noted by nursing facility to have change in mental status Patient was not eating as usual also appears to be at times more aggressive And at times more lethargic There was no reports of chest pain questionable nausea but no vomiting There was no documented fevers Patient has some underlying confusion which does limit the history of present illness At this time patient denies any focal weakness Allergies: Coded Allergies: NO KNOWN ALLERGIES (Verified Allergy, Unknown, 05/05/18) Patient History Past Medical History: see triage record Pertinent Family History: none Reviewed Nursing Documentation: PMH: Agreed; PSxH: Agreed Nursing Documentation-PMH Past Medical History: No History, Except For Hx Hypertension: Yes Hx Cancer: Yes - prostate Hx Gastrointestinal Problems: No Hx Neurological Problems: Yes - dementia Hx Cerebrovascular Accident: Yes Hx Dementia: Yes Hx Alzheimer's Disease: Yes Review of Systems All Other Systems: limited - Other than the ones mentioned in the history of present illness all others are reviewed however they do stay limited due to the patient's mental status Physical Exam Vital Signs Date Time Temp Pulse Resp B/P (MAP) Pulse Ox O2 Delivery O2 Flow Rate FiO2 05/26/18 09:46 97.4 89 16 102/70 97 Room Air 97.3 Sp02 EP Interpretation: reviewed, normal General Appearance: no apparent distress Head: normocephalic, atraumatic Eyes: bilateral eye PERRL, bilateral eye EOMI ENT: dry mucus membranes Neck: supple, thyroid normal Respiratory: no retraction, no accessory muscle use, crackles - Both lower lobes Cardiovascular #1: no edema Gastrointestinal: non tender, soft Musculoskeletal: other - Patient not following all commands however, no obvious focal deficit Neurologic: responsive - To physical stimuli Skin: no rash Medical Decision Making Diagnostic Impression: Primary Impression: UTI (lower urinary tract infection) Additional Impressions: Altered mental state Agitation ER Course Patient is a fairly complex patient with multiple differential to consideration including but not limited to cardiac cardiopulmonary and vascular emergencies Patient has done better with IV hydration required repeat sedation as the patient becomes again agitated and aggressive Patient also had previous infection and started on prostration antibiotics requiring further inpatient care Labs Test 05/26/18 10:05 White Blood Count 7.9 K/UL (4.8-10.8) Red Blood Count 4.30 M/UL (4.70-6.10) Hemoglobin 12.8 G/DL (14.2-18.0) Hematocrit 39.9 % (42.0-52.0) Mean Corpuscular Volume 93 FL (80-99) Mean Corpuscular Hemoglobin 29.7 PG (27.0-31.0) Mean Corpuscular Hemoglobin Concent 32.0 G/DL (32.0-36.0) Red Cell Distribution Width 13.3 % (11.6-14.8) Platelet Count 248 K/UL (150-450) Mean Platelet Volume 6.4 FL (6.5-10.1) Neutrophils (%) (Auto) 59.2 % (45.0-75.0) Lymphocytes (%) (Auto) 32.1 % (20.0-45.0) Monocytes (%) (Auto) 7.7 % (1.0-10.0) Eosinophils (%) (Auto) 0.5 % (0.0-3.0) Basophils (%) (Auto) 0.5 % (0.0-2.0) Sodium Level 142 MMOL/L (136-145) Potassium Level 4.8 MMOL/L (3.5-5.1) Chloride Level 108 MMOL/L (98-107) Carbon Dioxide Level 25 MMOL/L (21-32) Anion Gap 9 mmol/L (5-15) Blood Urea Nitrogen 35 mg/dL (7-18) Creatinine 2.5 MG/DL (0.55-1.30) Estimat Glomerular Filtration Rate 31.3 mL/min (>60) Glucose Level 96 MG/DL (74-106) Lactic Acid Level 1.40 mmol/L (0.4-2.0) Calcium Level 9.3 MG/DL (8.5-10.1) Total Bilirubin 0.5 MG/DL (0.2-1.0) Aspartate Amino Transf (AST/SGOT) 32 U/L (15-37) Alanine Aminotransferase (ALT/SGPT) 17 U/L (12-78) Alkaline Phosphatase 99 U/L (46-116) Total Creatine Kinase 263 U/L (26-308) Creatine Kinase MB 2.1 NG/ML (0.0-3.6) Creatine Kinase MB Relative Index 0.7 Troponin I 0.000 ng/mL (0.000-0.056) Pro-B-Type Natriuretic Peptide 68 pg/mL (0-125) Total Protein 8.7 G/DL (6.4-8.2) Albumin 3.6 G/DL (3.4-5.0) Globulin 5.1 g/dL Albumin/Globulin Ratio 0.7 (1.0-2.7) Lipase 331 U/L (73-393) Rhythm Strip Diag. Results EP Interpretation: yes Rate: 77 Rhythm: NSR, no PVC's, no ectopy Chest X-Ray Diagnostic Results Chest X-Ray Diagnostic Results : Chest X-Ray Ordered: Yes # of Views/Limited/Complete: 1 View Indication: Chest Pain EP Interpretation: Yes Interpretation: no consolidation, no pneumothorax, other - Bilateral atelectasis, haziness, nonspecific Impression: Other - Bilateral atelectasis Electronically Signed by: Becky Baron DO Last Vital Signs Date Time Temp Pulse Resp B/P (MAP) Pulse Ox O2 Delivery O2 Flow Rate FiO2 05/26/18 09:46 97.4 89 16 102/70 97 Room Air 97.3 Status: improved Disposition: ADMITTED INPATIENT Condition: Serious Becky Baron DO May 26, 2018 10:00
[2018-05-26] MEDS ORDERED: ATIVAN1 MG ORAL (10:31)
[2018-05-26 10:33] LABS: BASOPHILS % (AUTO) 0.5 % (0.0-2.0); EOSINOPHILS % (AUTO) 0.5 % (0.0-3.0); HEMATOCRIT 39.9 % (42.0-52.0); HEMOGLOBIN 12.8 G/DL (14.2-18.0); LYMPHOCYTES % (AUTO) 32.1 % (20.0-45.0); MEAN CORPUSCULAR VOLUME 93 FL (80-99); MONOCYTES % (AUTO) 7.7 % (1.0-10.0); NEUTROPHILS % (AUTO) 59.2 % (45.0-75.0); PLATELET COUNT 248 K/UL (150-450); RED CELL DISTRIBUTION WIDTH 13.3 % (11.6-14.8); WHITE BLOOD COUNT 7.9 K/UL (4.8-10.8)
[2018-05-26 10:46] LABS: ANION GAP 9 mmol/L (5-15); BLOOD UREA NITROGEN 35 mg/dL (7-18); CALCIUM 9.3 MG/DL (8.5-10.1); CARBON DIOXIDE 25 MMOL/L (21-32); CHLORIDE 108 MMOL/L (98-107); CREATININE 2.5 MG/DL (0.55-1.30); POTASSIUM 4.8 MMOL/L (3.5-5.1); SODIUM 142 MMOL/L (136-145)
[2018-05-26 10:58] LABS: ALANINE AMINOTRANSFERASE 17 U/L (12-78); ALBUMIN 3.6 G/DL (3.4-5.0); ALBUMIN/GLOBULIN RATIO 0.7 (1.0-2.7); ALKALINE PHOSPHATASE 99 U/L (46-116); ASPARTATE AMINO TRANSFERASE 32 U/L (15-37); BILIRUBIN,TOTAL 0.5 MG/DL (0.2-1.0); CKMB 2.1 NG/ML (0.0-3.6); CREATINE KINASE 263 U/L (26-308)
[2018-05-26 11:00] VITALS: BP 116/80
--- NOTE | 2018-05-26 11:53 | Diagnostic Imaging Report ---
Indication: Chest pain Technique: XRAY Chest 1v Comparison: 04/29/2018 Findings: Heart size and mediastinal contours are stable allowing for differences in patient positioning (patient rotated on today's exam). There is haziness of the bilateral lower lungs with linear opacities which may be related to crowding/subsegmental atelectasis however developing infiltrate not excludable. Costophrenic sulci are sharp. No pneumothorax. No acute osseous normality. Impression: Hazy bibasilar airspace opacities may in part be related to atelectasis and vascular crowding. Possibility of developing infiltrates not excluded. Clinical correlation/follow-up recommended.
[2018-05-26] MEDS ORDERED: LORazepam Inj 2mg/ml 1ml IV ONE (12:15)
[2018-05-26 13:00] VITALS: BP 114/71
[2018-05-26] MEDS ORDERED: Haloperidol 5mg/ml Inj ONE (14:02)
[2018-05-26] MEDS ORDERED: Haloperidol 5mg/ml Inj IM ONE (14:15)
[2018-05-26] MEDS ORDERED: Mylanta II UD 30ml ORAL PRN (14:45)
[2018-05-26] MEDS ORDERED: Zolpidem 5mg tab ORAL PRN (14:45)
[2018-05-26] MEDS ORDERED: Morphine Sulfate 2mg/ml Inj(IV/IM USE ONLY) IVP PRN (14:45)
[2018-05-26] MEDS ORDERED: Miralax 17gm pkt ORAL PRN (14:45)
[2018-05-26] MEDS ORDERED: LORazepam Inj 2mg/ml 1ml IV PRN (14:45)
[2018-05-26 15:00] VITALS: BP 128/76
[2018-05-26 16:03] VITALS: BP 128/82
[2018-05-26] MEDS ORDERED: LORazepam Inj 2mg/ml 1ml IM ONE (17:00)
[2018-05-26] MEDS: LORazepam Inj 2mg/ml 1ml IM PRN (17:17)
--- NOTE | 2018-05-26 19:05 | Consultation ---
History of Present Illness General Date patient seen: May 26, 2018 Chief Complaint: Altered Level of Consciousness Present Illness HPI 67 year old male with hx of prostate CA, drug abuse, Hep C, dementia, psychosis recently discharged to care home, brought back to Er with CC of ALOC, encephalopathy and aggressive behavior towards staff. Allergies: Coded Allergies: NO KNOWN ALLERGIES (Verified Allergy, Unknown, 05/05/18) Medication History Scheduled Ampicillin (Ampicillin Trihydrate), 500 MG ORAL Q6HR, (Reported) Aspirin (Ann Chewable), 81 MG PO DAILY, (Reported) Lorazepam* (Ativan*), 1 MG ORAL BEDTIME, (Reported) Metoprolol Tartrate (Metoprolol Tartrate), 25 MG ORAL Q12HR Mirtazapine* (Remeron*), 15 MG ORAL BEDTIME, (Reported) Quetiapine Fumarate (Seroquel), 12.5 MG ORAL THREE TIMES A DAY, (Reported) Quetiapine Fumarate* (Seroquel*), 50 MG ORAL Q8HR Tamsulosin HCl (Flomax), 0.4 MG ORAL BEDTIME Scheduled PRN Chlorpromazine (Chlorpromazine HCl), 25 MG PO Q6HR PRN for Agitation, (Reported) Haloperidol* (Haldol*), 5 MG ORAL EVERY 4 HOURS PRN for Agitation, (Reported) Phenazopyridine Hcl* (Pyridium*), 100 MG ORAL DAILY PRN for Per rx protocol, ( Reported) Miscellaneous Medications Unable to Obtain Medications (Unable To Obtain Meds), (Reported) Patient History Healthcare decision maker AGUSTO GUTIÉRREZ Resuscitation status Advanced Directive on File Yes Past Medical/Surgical History Past Medical/Surgical History: (1) Dementia (2) Prostate cancer (3) Paranoia (4) Drug abuse (5) CKD (chronic kidney disease) (6) Cerebral vascular disease (7) HTN (hypertension) Review of Systems All Other Systems: negative except mentioned in HPI Physical Exam General Appearance: WD/WN Lines, tubes and drains: peripheral, PICC HEENT: normocephalic, atraumatic Neck: non-tender, normal alignment Respiratory/Chest: chest wall non-tender, lungs clear Breasts: no masses Cardiovascular/Chest: normal peripheral pulses, normal rate Abdomen: normal bowel sounds, non tender Genitourinary/Rectal: normal genital exam Extremities: normal range of motion, non-tender Last 24 Hour Vital Signs Date Time Temp Pulse Resp B/P (MAP) Pulse Ox O2 Delivery O2 Flow Rate FiO2 05/26/18 18:00 Room Air 05/26/18 16:03 98.1 91 18 128/82 (97) 100 98.1 05/26/18 15:30 97.3 74 17 128/76 100 Room Air 97.3 05/26/18 15:00 74 17 128/76 100 Room Air 05/26/18 13:00 97.3 75 17 114/71 100 Room Air 97.3 05/26/18 11:00 75 17 116/80 100 Room Air 05/26/18 09:46 97.4 89 16 102/70 97 Room Air 97.3 Laboratory Tests Test 05/26/18 10:05 White Blood Count 7.9 K/UL (4.8-10.8) Red Blood Count 4.30 M/UL (4.70-6.10) L Hemoglobin 12.8 G/DL (14.2-18.0) L Hematocrit 39.9 % (42.0-52.0) L Mean Corpuscular Volume 93 FL (80-99) Mean Corpuscular Hemoglobin 29.7 PG (27.0-31.0) Mean Corpuscular Hemoglobin Concent 32.0 G/DL (32.0-36.0) Red Cell Distribution Width 13.3 % (11.6-14.8) Platelet Count 248 K/UL (150-450) Mean Platelet Volume 6.4 FL (6.5-10.1) L Neutrophils (%) (Auto) 59.2 % (45.0-75.0) Lymphocytes (%) (Auto) 32.1 % (20.0-45.0) Monocytes (%) (Auto) 7.7 % (1.0-10.0) Eosinophils (%) (Auto) 0.5 % (0.0-3.0) Basophils (%) (Auto) 0.5 % (0.0-2.0) Sodium Level 142 MMOL/L (136-145) Potassium Level 4.8 MMOL/L (3.5-5.1) Chloride Level 108 MMOL/L (98-107) H Carbon Dioxide Level 25 MMOL/L (21-32) Anion Gap 9 mmol/L (5-15) Blood Urea Nitrogen 35 mg/dL (7-18) H Creatinine 2.5 MG/DL (0.55-1.30) H Estimat Glomerular Filtration Rate 31.3 mL/min (>60) Glucose Level 96 MG/DL (74-106) Lactic Acid Level 1.40 mmol/L (0.4-2.0) Calcium Level 9.3 MG/DL (8.5-10.1) Total Bilirubin 0.5 MG/DL (0.2-1.0) Aspartate Amino Transf (AST/SGOT) 32 U/L (15-37) Alanine Aminotransferase (ALT/SGPT) 17 U/L (12-78) Alkaline Phosphatase 99 U/L (46-116) Total Creatine Kinase 263 U/L (26-308) Creatine Kinase MB 2.1 NG/ML (0.0-3.6) Creatine Kinase MB Relative Index 0.7 Troponin I 0.000 ng/mL (0.000-0.056) Pro-B-Type Natriuretic Peptide 68 pg/mL (0-125) Total Protein 8.7 G/DL (6.4-8.2) H Albumin 3.6 G/DL (3.4-5.0) Globulin 5.1 g/dL Albumin/Globulin Ratio 0.7 (1.0-2.7) L Lipase 331 U/L (73-393) Height (Feet): 5 Height (Inches): 7.00 Weight (Pounds): 130 Medications Current Medications Medications (Trade) Dose Ordered Sig/Lucie Route PRN Reason Start Time Stop Time Status Last Admin Dose Admin Acetaminophen (Tylenol) 650 mg Q4H PRN ORAL fever 05/26/18 14:45 06/25/18 14:44 Al Hydroxide/Mg Hydroxide (Mylanta II) 30 ml Q6H PRN ORAL dyspepsia 05/26/18 14:45 06/25/18 14:44 Dextrose (Dextrose 50%) STAT PRN IV Hypoglycemia 05/26/18 14:45 06/25/18 14:44 Lorazepam (Ativan 2mg/ml 1ml) 2 mg Q4H PRN IM For Anxiety 05/26/18 17:00 06/02/18 16:59 05/26/18 17:17 Metoprolol Tartrate (Lopressor) 25 mg Q12HR ORAL 05/26/18 21:00 06/25/18 20:59 Mirtazapine (Remeron) 15 mg BEDTIME ORAL 05/26/18 21:00 06/25/18 20:59 Morphine Sulfate (Morphine Sulfate) 1 mg EVERY 4 HOURS PRN IVP For Pain 05/26/18 14:45 06/02/18 14:44 Ondansetron HCl (Zofran) 4 mg Q6H PRN IVP Nausea & Vomiting 05/26/18 14:45 06/25/18 14:44 Polyethylene Glycol (Miralax) 17 gm HSPRN PRN ORAL Constipation 05/26/18 14:45 06/25/18 14:44 Quetiapine Fumarate (SEROquel) 50 mg Q8HR ORAL 05/26/18 22:00 06/25/18 21:59 Sodium Chloride 1,000 ml @ 100 mls/hr Q10H IV 05/26/18 17:00 06/25/18 16:59 05/26/18 19:02 Tamsulosin HCl (Flomax) 0.4 mg BEDTIME ORAL 05/26/18 21:00 06/25/18 20:59 Zolpidem Tartrate (Ambien) 5 mg HSPRN PRN ORAL Insomnia 05/26/18 14:45 06/02/18 14:44 Assessment/Plan Problem List: (1) Acute encephalopathy ICD Codes: G93.40 - Encephalopathy, unspecified SNOMED: 98911652, 834162232 (2) Paranoia ICD Codes: F22 - Delusional disorders SNOMED: 06187207 (3) Prostate cancer ICD Codes: C61 - Prostate cancer SNOMED: 291391856 (4) CKD (chronic kidney disease) ICD Codes: N18.9 - CKD (chronic kidney disease) SNOMED: 253964686 (5) Hepatitis C ICD Codes: B19.20 - Unspecified viral hepatitis C without hepatic coma SNOMED: 75505102 (6) Dementia ICD Codes: F03.90 - Dementia SNOMED: 96969948 (7) Methadone maintenance therapy patient ICD Codes: F11.20 - Methadone maintenance therapy patient SNOMED: 762110185 Assessment/Plan psych and neuro evaluation symptomatic treatment check electrolytes social service consult dvt prophylaxis. German Mooney MD May 26, 2018 19:05
--- NOTE | 2018-05-26 19:30 | Consultation ---
Consult Note Consult Note NEUROLOGY CONSULTATION: Full note dictated #[id number] 67 y/o, RH, BM with PH of hypertension, CVD with prior stroke, dementia, psychiatric illness, and prostate cancer, who lives in a NH. He was hospitalized today for a change in MS. ON EXAM: Not very cooperative. Oriented to self only. Severe cognitive dysfunction. Aphasia. Generally strong but not giving full effort. Globally diminished DTRs Unable to test stance and gait. IMPRESSION: Encephalopathy superimposed on underlying dementia. Etiology for encephalopathy unclear. REC: Brain CT EEG Labs for encephalopathy. Observe. Anaid Caceres M.D., M.S.P.ANAID ALEXANDRA May 26, 2018 19:30
[2018-05-26 20:30] VITALS: BP 135/80
[2018-05-26] MEDS: Tamsulosin 0.4mg cap ORAL SCH (21:10)
[2018-05-26] MEDS: Metoprolol 25mg tab ORAL SCH (21:10)
--- NOTE | 2018-05-26 21:30 | History and Physical Report ---
DATE OF ADMISSION: 05/26/2018 APPROXIMATE TIME: 2 p.m. CONSULTANTS: 1. German Mooney M.D. 2. Yelena Roth M.D. 3. Munir Caceres M.D. CHIEF COMPLAINT: Confusion, weakness, and aggressive behavior. BRIEF HISTORY: The patient is a 67-year-old male from [facility] presents with two-day increasing confusion, weakness and aggressive behavior toward staff. The patient was transferred to [place] ER, currently very agitated, confused in the ER [facility]. No other complaint. PAST MEDICAL HISTORY: Dementia, weakness, CKD and hypertension. PAST SURGICAL HISTORY: MEDICATIONS: Haldol and Ativan. ALLERGIES: Denies. SOCIAL HISTORY: Positive smoking. Occasional alcohol. No intravenous drug abuse. FAMILY HISTORY: Noncontributory. REVIEW OF SYSTEMS: Unavailable. PHYSICAL EXAMINATION: GENERAL: Agitated in bed, screening, , oriented x1, in no acute distress. VITAL SIGNS: Temperature 97 degrees, pulse 75, respirations 17 and blood pressure 116/80. CARDIOVASCULAR: No murmur. LUNGS: Distant. ABDOMEN: Bowel sounds positive. Nontender. Nondistended. No cyanosis, clubbing, or edema. NEUROLOGIC: The patient moves all extremities, but lower extremity weakness noted, unsteady gait. LABORATORY AND DIAGNOSTIC DATA: At this time, show hemoglobin 12.8, otherwise CBC is normal. BMP shows chloride 108, BUN and creatinine 35/2.5, otherwise normal. ASSESSMENT: 1. Confusion. 2. Aggressive behavior. 3. Weakness. 4. Anemia. 5. Dementia. 6. CKD. 7. Hypertension. PLAN: 1. Continue previous medications. 2. Psychiatric treatment. 3. OT/PT. 4. Dietary followup. 5. Blood pressure control. 6. ER workup in progress. 7. Dr. Mooney, Dr. Roth, Dr. Caceres, and Dr. Jernigan to consult. Jaleel Moon D.O. DR: VERONICA JOB#: [id number] CC:
--- NOTE | 2018-05-26 22:30 | Consultation ---
DATE OF CONSULTATION: 05/26/2018 CONSULTING PHYSICIAN: Kamar Rangel M.D. REFERRING PHYSICIAN: Jaleel Moon M.D. REASON FOR CONSULTATION: 1. Acute kidney injury. 2. Chronic kidney disease stage 4, baseline creatinine 1.7 to 2.2. HISTORY OF PRESENT ILLNESS: The patient is a 67-year-old black gentleman who was brought into the emergency room from the nursing facility due to acute encephalopathy and change in mental status. The patient has not been eating or drinking well and is becoming aggressive at the [facility] and noted to be slightly lethargic as such was brought to the emergency room for further evaluation and care. Here at the hospital, the patient is restrained, agitated and confused to all 4 spheres of orientation. Creatinine currently 2.5. The patient has a creatinine that ranges from 1.5 up to 2.5 over the last few years. He denies any current chest pain or shortness of breath, but is confused and is demanding to go to work. PAST MEDICAL HISTORY: 1. CKD stage 4, baseline creatinine 2 to 2.2. 2. Hypertension. 3. Underlying psychiatric disorder. 4. BPH. PAST SURGICAL HISTORY: Unknown. ALLERGIES: No known drug allergies. FAMILY HISTORY: Noncontributory. PHYSICAL EXAMINATION: GENERAL: The patient awake, confused, disoriented and agitated. He is confused to all 4 spheres. VITAL SIGNS: Blood pressure 128/82 and 100% oxygen saturation on room air, respiratory rate 18, pulse 91, and temperature 98.1 degrees. HEENT: Extraocular muscle intact. No lymphadenopathy noted. CARDIOVASCULAR: S1 and S2. No rubs or gallops. PULMONARY: Clear to auscultation bilaterally. No rales, rhonchi or wheezes. ABDOMEN: Nondistended and nontender. EXTREMITIES: No edema noted. LABORATORY AND DIAGNOSTIC DATA: Labs dated 05/26/2018, sodium 142, potassium 4.8, creatinine 2.5, and BUN 35. AST and ALT 32 and 17 respectively. Calcium 9.3. Hemoglobin 12.8, white cell count 7.9, and platelet count 248. ASSESSMENT AND PLAN: 1. Acute kidney injury on chronic kidney disease stage 4. At this time most likely secondary to a component of intravascular volume depletion. The patient has been confused, disoriented, and not eating and drinking well. IV fluids have been initiated. No further renal investigations for the time being. Avoid any nephrotoxins. Also investigate for the possibility of underlying urinary tract infection causing renal dysfunction/acute kidney injury. Urinalysis pending. 2. Acute encephalopathy, could be secondary to underlying urinary tract infection. Urinalysis is pending. 3. Hypertension. Blood pressure currently stable. Continue metoprolol 25 mg b.i.d. 4. Psychiatric disorder. Defer management to Psychiatry. Let met take this opportunity to thank Dr. Moon for allowing me to assist in the care of this patient during hospitalization. Kamar Rangel MD DR: JENNA JOB#: [id number] CC:
[2018-05-27 00:24] VITALS: BP 100/69
--- NOTE | 2018-05-27 01:00 | Consultation ---
DATE OF CONSULTATION: 05/26/2018 NEUROLOGY CONSULTATION CONSULTING PHYSICIAN: Munir Caceres M.D. REQUESTING PHYSICIAN: Jaleel Moon D.O. HISTORY: Mr. Arcadio Roth is a 67-year-old, right-handed, black gentleman with a history of hypertension, cerebrovascular disease with a prior stroke, the details of which are unknown to us, dementia of an unknown type, psychiatric illness of an unknown type, and prostate cancer, the degree of which is unknown to us, who lives in the [facility]. He was hospitalized today for change in mental state noted at his [facility]. He himself is unable to give me any history and there is no history available in the chart. PAST MEDICAL HISTORY: Significant for hypertension, cerebrovascular disease with prior stroke, dementia, psychiatric illness, prostate cancer, and institutionalization. FAMILY HISTORY: Unavailable. PERSONAL HISTORY: Home: He lives in a fci. Work: He tells me that he has never worked in his lifetime. Habits: Unknown. PRESENT MEDICATIONS: Seroquel, Lopressor, Remeron, Flomax, Ativan, Tylenol, morphine, MiraLAX, Zofran, Ambien, Mylanta and he got a few doses of Haldol earlier. PHYSICAL EXAMINATION: GENERAL: He is a well-developed relatively well-nourished black gentleman, lying in bed, in no acute distress. VITAL SIGNS: Pulse 91/minute, blood pressure 128/82 mmHg, respirations 18/minute, and temperature 98.1 degrees Fahrenheit. HEAD: Normocephalic and atraumatic. EENT: Examination benign. NECK: No neck rigidity was observed. NEUROLOGICAL EXAMINATION: MENTAL STATUS EXAMINATION: He was awake and alert. He was oriented to self only. He had no idea where he was or what the date was. He was able to recall 3/3 words immediately, but could not remember any of them in 1 minute and 3 minutes. He was unable to tell me who the present President was and who prior presidents were. He was unable to cooperate for further mental status testing. SPEECH: He had a mild dysarthria. LANGUAGE: He had an aphasia with significant problems expressing himself and less significant problems understanding commands. CRANIAL NERVE EXAMINATION: II: He did not cooperate for confrontation testing. He, however, was able to blink to threat. III, IV & : The external ocular movements were present on oculocephalic maneuvers. The pupils were 3 mm in diameter and reactive sluggishly to light. V & VII: The corneal reflexes were equal bilaterally. He had no facial asymmetry. VIII: He seemed to be able to hear well and had no nystagmus. IX: The palate moved symmetrically on phonation. X: He had no hoarseness of voice. XI: The sternocleidomastoids and trapezii functioned normally. XII: The tongue was in the midline without any fasciculations or atrophy. MOTOR SYSTEM: The tone was increased in all four extremities with gegenhalten. Examination of muscle mass revealed no focal wasting. Examination of power was impossible to perform on individual muscle groups, however, he moved all four extremities relatively well and had excellent handgrips bilaterally. SENSORY EXAMINATION: He responded appropriately to painful stimuli. He did not cooperate for the sensory modalities. REFLEXES: Trace positive and bilaterally symmetrical at the biceps, triceps, brachioradialis, and knees, 0 at both ankles. The plantar responses were flexor bilaterally. COORDINATION, STANCE & GAIT: Could not be tested. DIAGNOSTIC IMPRESSION: 1. Mr. Arcadio Roth is a 67-year-old, right-handed, black gentleman, with a past history of hypertension, cerebrovascular disease with prior stroke, the exact details of which are unavailable to us, dementia, psychiatric illness and prostate cancer, who is institutionalized in a fci. He was hospitalized today for a change in his mental state. The exact details of this change is unknown to us. 2. On neurological examination, at this time, he is not very cooperative. He is oriented to self only, has problems with recent and remote memory, visuospatial function and higher cognitive function, has a significant aphasia with an expressive greater than receptive component, is unable to give a good effort on testing motor power, but has excellent handgrips and moves all extremities quite well, has globally diminished deep tendon reflexes and is unable to cooperate for testing of coordination, stance and gait. 3. Laboratory data obtained thus far revealed that he is mildly anemic with hemoglobin of 12.8, but his WBC count was normal at 7.9. His chemistry panel reveals BUN elevated to 35 and creatinine elevated to 2.5. 4. The patient's history and neurological examination are most compatible with an encephalopathy superimposed and underlying dementia. 5. His behavioral problems are most probably related to an underlying psychiatric illness. 6. He is encephalopathic at this point in time, but it is unclear as to what the exact etiology for the encephalopathy is. He does have renal dysfunction, which could be contributing. RECOMMENDATIONS: 1. Agree with management thus far. 2. A CT scan of the brain will be ordered to evaluate the patient for intracranial pathology. 3. An EEG will be ordered to evaluate the patient for the degree and type of encephalopathy. 4. He should be worked up thoroughly for other treatable causes of encephalopathy with a B12 level, folate level, vitamin D level, RPR, glycohemoglobin, Westergren sedimentation rate, TSH and serum ammonia. 5. He should be observed closely and depending on how he fares over the next day or so, further recommendations will be given. Thank you for entrusting me with the care of Mr. Roth. I shall follow him with you. Munir Caceres M.D., M.S.P.H. DR: MORGAN JOB#: [id number] [facility] CENTERLexx
[2018-05-27 03:52] LABS: BILIRUBIN, URINE NEGATIVE (NEGATIVE); COLOR,URINE PALE YELLOW; GLUCOSE, URINE (UA) NEGATIVE (NEGATIVE); KETONES,URINE NEGATIVE (NEGATIVE); LEUKOCYTE ESTERASE ,URINE 3+ (NEGATIVE); NITRITE,URINE NEGATIVE (NEGATIVE); PH,URINE 6 (4.5-8.0); PROTEIN,URINE 2+ (NEGATIVE); UROBILINOGEN,URINE NORMAL (NORMAL)
[2018-05-27 04:04] VITALS: BP 124/99
[2018-05-27 04:05] LABS: APPEARANCE,URINE CLOUDY
[2018-05-27 06:11] LABS: BASOPHILS % (AUTO) 0.2 % (0.0-2.0); EOSINOPHILS % (AUTO) 1.5 % (0.0-3.0); HEMATOCRIT 36.9 % (42.0-52.0); HEMOGLOBIN 11.9 G/DL (14.2-18.0); LYMPHOCYTES % (AUTO) 37.1 % (20.0-45.0); MEAN CORPUSCULAR VOLUME 92 FL (80-99); MONOCYTES % (AUTO) 7.9 % (1.0-10.0); NEUTROPHILS % (AUTO) 53.2 % (45.0-75.0); PLATELET COUNT 221 K/UL (150-450); RED BLOOD COUNT 4.01 M/UL (4.70-6.10); RED CELL DISTRIBUTION WIDTH 13.1 % (11.6-14.8); WHITE BLOOD COUNT 8.4 K/UL (4.8-10.8)
[2018-05-27 06:49] LABS: ALANINE AMINOTRANSFERASE 16 U/L (12-78); ALBUMIN 2.8 G/DL (3.4-5.0); ALBUMIN/GLOBULIN RATIO 0.6 (1.0-2.7); ALKALINE PHOSPHATASE 85 U/L (46-116); ANION GAP 9 mmol/L (5-15); ASPARTATE AMINO TRANSFERASE 28 U/L (15-37); BILIRUBIN,TOTAL 0.6 MG/DL (0.2-1.0); BLOOD UREA NITROGEN 29 mg/dL (7-18); CALCIUM 8.5 MG/DL (8.5-10.1); CARBON DIOXIDE 22 MMOL/L (21-32); CHLORIDE 112 MMOL/L (98-107); CHOLESTEROL 156 MG/DL (< 200); CREATININE 1.9 MG/DL (0.55-1.30); HDL CHOLESTEROL 67 MG/DL (40-60); POTASSIUM 4.6 MMOL/L (3.5-5.1); SODIUM 143 MMOL/L (136-145); TRIGLYCERIDES 62 MG/DL (30-150)
[2018-05-27 08:00] VITALS: BP 108/60
[2018-05-27] MEDS: LORazepam Inj 2mg/ml 1ml IM PRN ×2 (08:48→13:22)
[2018-05-27] MEDS: Metoprolol 25mg tab ORAL SCH ×2 (09:00→20:30)
--- NOTE | 2018-05-27 09:23 | Nephrology Progress Note ---
Assessment/Plan Assessment/Plan Could not exam patient as confused and aggressive A/P 1) HAMZAH on CKD 4- Cr back to baseline of 1.9 - Due to volume depletion and UTI - IVFs. No further renal investigations required 2) UTI- IM Rocephin 3) Acute Encephalopathy- Per PSY and Neuro - treat UTI 4) HTN- stable Subjective Date patient seen: May 27, 2018 Time patient seen: 09:09 ROS Limited/Unobtainable: Yes Allergies: Coded Allergies: NO KNOWN ALLERGIES (Verified Allergy, Unknown, 05/05/18) Subjective Patient confused and agitated Objective Last 24 Hour Vital Signs Date Time Temp Pulse Resp B/P (MAP) Pulse Ox O2 Delivery O2 Flow Rate FiO2 05/27/18 08:00 97.5 88 21 108/60 (76) 100 97.5 05/27/18 04:04 98.2 78 20 124/99 (107) 98 98.2 05/27/18 00:24 98.0 76 17 100/69 (79) 97 98.0 05/26/18 21:10 95 135/80 05/26/18 21:00 Room Air 05/26/18 20:30 98.3 95 18 135/80 (98) 98 98.3 05/26/18 18:00 Room Air 05/26/18 16:03 98.1 91 18 128/82 (97) 100 98.1 05/26/18 15:30 97.3 74 17 128/76 100 Room Air 97.3 05/26/18 15:00 74 17 128/76 100 Room Air 05/26/18 13:00 97.3 75 17 114/71 100 Room Air 97.3 05/26/18 11:00 75 17 116/80 100 Room Air 05/26/18 09:46 97.4 89 16 102/70 97 Room Air 97.3 Intake and Output 05/26/18 05/27/18 19:00 07:00 Intake Total 0 ml 1240 ml Output Total 800 ml Balance 0 ml 440 ml Intake Oral 0 ml 240 ml IV Total 1000 ml Output Urine Total 800 ml # Voids 3 # Bowel Movements 1 2 Laboratory Tests 05/26/18 10:05: White Blood Count 7.9, Red Blood Count 4.30L, Hemoglobin 12.8L, Hematocrit 39.9L , Mean Corpuscular Volume 93, Mean Corpuscular Hemoglobin 29.7, Mean Corpuscular Hemoglobin Concent 32.0, Red Cell Distribution Width 13.3, Platelet Count 248, Mean Platelet Volume 6.4L, Neutrophils (%) (Auto) 59.2, Lymphocytes ( %) (Auto) 32.1, Monocytes (%) (Auto) 7.7, Eosinophils (%) (Auto) 0.5, Basophils (%) (Auto) 0.5, Sodium Level 142, Potassium Level 4.8, Chloride Level 108H, Carbon Dioxide Level 25, Anion Gap 9, Blood Urea Nitrogen 35H, Creatinine 2.5H, Estimat Glomerular Filtration Rate 31.3, Glucose Level 96, Lactic Acid Level 1.40, Calcium Level 9.3, Total Bilirubin 0.5, Aspartate Amino Transf (AST/SGOT) 32, Alanine Aminotransferase (ALT/SGPT) 17, Alkaline Phosphatase 99, Total Creatine Kinase 263, Creatine Kinase MB 2.1, Creatine Kinase MB Relative Index 0.7, Troponin I 0.000, Pro-B-Type Natriuretic Peptide 68, Total Protein 8.7H, Albumin 3.6, Globulin 5.1, Albumin/Globulin Ratio 0.7L, Lipase 331 05/26/18 20:45: Erythrocyte Sedimentation Rate 49H, Hemoglobin A1c 6.0, Vitamin B12 Level 480, Vitamin D 25-Hydroxy [Pending], 25-Hydroxy Vitamin D2 [Pending], 25-Hydroxy Vitamin D3 [Pending], Folate 16.1, Rapid Plasma Reagin [Pending] 05/27/18 03:25: Urine Color Pale yellow, Urine Appearance Cloudy, Urine pH 6, Urine Specific [place] 1.010, Urine Protein 2+H, Urine Glucose (UA) Negative, Urine Ketones Negative, Urine Occult Blood 3+H, Urine Nitrite Negative, Urine Bilirubin Negative, Urine Urobilinogen Normal, Urine Leukocyte Esterase 3+H, Urine RBC 10- 15H, Urine WBC TntcH, Urine Squamous Epithelial Cells Few, Urine Bacteria ManyH 05/27/18 05:40: White Blood Count 8.4, Red Blood Count 4.01L, Hemoglobin 11.9L, Hematocrit 36.9L , Mean Corpuscular Volume 92, Mean Corpuscular Hemoglobin 29.7, Mean Corpuscular Hemoglobin Concent 32.3, Red Cell Distribution Width 13.1, Platelet Count 221, Mean Platelet Volume 6.4L, Neutrophils (%) (Auto) 53.2, Lymphocytes ( %) (Auto) 37.1, Monocytes (%) (Auto) 7.9, Eosinophils (%) (Auto) 1.5, Basophils (%) (Auto) 0.2, Sodium Level 143, Potassium Level 4.6, Chloride Level 112H, Carbon Dioxide Level 22, Anion Gap 9, Blood Urea Nitrogen 29H, Creatinine 1.9H, Estimat Glomerular Filtration Rate 42.9, Glucose Level 86, Calcium Level 8.5, Total Bilirubin 0.6, Aspartate Amino Transf (AST/SGOT) 28, Alanine Aminotransferase (ALT/SGPT) 16, Alkaline Phosphatase 85, Total Protein 7.3, Albumin 2.8L, Globulin 4.5, Albumin/Globulin Ratio 0.6L, Triglycerides Level 62 , Cholesterol Level 156, LDL Cholesterol 87, HDL Cholesterol 67H, Cholesterol/ HDL Ratio 2.3L, Thyroid Stimulating Hormone (TSH) 0.520 Height (Feet): 5 Height (Inches): 7.00 Weight (Pounds): 139 Edema: no edema noted Arm (L), no edema noted Arm (R), no edema noted Leg (L), no edema noted Leg (R), no edema noted Pedal (L), no edema noted Pedal (R), no edema noted Generalized Kamar Rangel M.D. May 27, 2018 09:23
[2018-05-27] MEDS ORDERED: Lidocaine 1% MPF 10mg/ml 5ml INJ ONE ×2 (10:30)
[2018-05-27 12:00] VITALS: BP 119/87
--- NOTE | 2018-05-27 12:20 | General Progress Note ---
Assessment/Plan Problem List: (1) CKD (chronic kidney disease) ICD Codes: N18.9 - CKD (chronic kidney disease) SNOMED: 027477410 (2) Confusion ICD Codes: R41.0 - Disorientation, unspecified SNOMED: 780019783 (3) UTI (urinary tract infection) ICD Codes: N39.0 - Urinary tract infection, site not specified SNOMED: 12029103 (4) Weakness ICD Codes: R53.1 - Weakness SNOMED: 66417633 Status: unchanged Assessment/Plan ot pt diet abx psyc tx cbc bmp am psyc transfer Subjective Constitutional: Reports: weakness Allergies: Coded Allergies: NO KNOWN ALLERGIES (Verified Allergy, Unknown, 05/05/18) All Systems: reviewed and negative except above Subjective confused agitated Objective Last 24 Hour Vital Signs Date Time Temp Pulse Resp B/P (MAP) Pulse Ox O2 Delivery O2 Flow Rate FiO2 05/27/18 09:00 Room Air 05/27/18 09:00 88 108/60 05/27/18 08:00 97.5 88 21 108/60 (76) 100 97.5 05/27/18 04:04 98.2 78 20 124/99 (107) 98 98.2 05/27/18 00:24 98.0 76 17 100/69 (79) 97 98.0 05/26/18 21:10 95 135/80 05/26/18 21:00 Room Air 05/26/18 20:30 98.3 95 18 135/80 (98) 98 98.3 05/26/18 18:00 Room Air 05/26/18 16:03 98.1 91 18 128/82 (97) 100 98.1 05/26/18 15:30 97.3 74 17 128/76 100 Room Air 97.3 05/26/18 15:00 74 17 128/76 100 Room Air 05/26/18 13:00 97.3 75 17 114/71 100 Room Air 97.3 Intake and Output 05/26/18 05/27/18 19:00 07:00 Intake Total 0 ml 1240 ml Output Total 800 ml Balance 0 ml 440 ml Intake Oral 0 ml 240 ml IV Total 1000 ml Output Urine Total 800 ml # Voids 3 # Bowel Movements 1 2 Laboratory Tests 05/26/18 20:45: Erythrocyte Sedimentation Rate 49H, Hemoglobin A1c 6.0, Vitamin B12 Level 480, Vitamin D 25-Hydroxy [Pending], 25-Hydroxy Vitamin D2 [Pending], 25-Hydroxy Vitamin D3 [Pending], Folate 16.1, Rapid Plasma Reagin [Pending] 05/27/18 03:25: Urine Color Pale yellow, Urine Appearance Cloudy, Urine pH 6, Urine Specific [place] 1.010, Urine Protein 2+H, Urine Glucose (UA) Negative, Urine Ketones Negative, Urine Occult Blood 3+H, Urine Nitrite Negative, Urine Bilirubin Negative, Urine Urobilinogen Normal, Urine Leukocyte Esterase 3+H, Urine RBC 10- 15H, Urine WBC TntcH, Urine Squamous Epithelial Cells Few, Urine Bacteria ManyH 05/27/18 05:40: White Blood Count 8.4, Red Blood Count 4.01L, Hemoglobin 11.9L, Hematocrit 36.9L , Mean Corpuscular Volume 92, Mean Corpuscular Hemoglobin 29.7, Mean Corpuscular Hemoglobin Concent 32.3, Red Cell Distribution Width 13.1, Platelet Count 221, Mean Platelet Volume 6.4L, Neutrophils (%) (Auto) 53.2, Lymphocytes ( %) (Auto) 37.1, Monocytes (%) (Auto) 7.9, Eosinophils (%) (Auto) 1.5, Basophils (%) (Auto) 0.2, Sodium Level 143, Potassium Level 4.6, Chloride Level 112H, Carbon Dioxide Level 22, Anion Gap 9, Blood Urea Nitrogen 29H, Creatinine 1.9H, Estimat Glomerular Filtration Rate 42.9, Glucose Level 86, Calcium Level 8.5, Total Bilirubin 0.6, Aspartate Amino Transf (AST/SGOT) 28, Alanine Aminotransferase (ALT/SGPT) 16, Alkaline Phosphatase 85, Total Protein 7.3, Albumin 2.8L, Globulin 4.5, Albumin/Globulin Ratio 0.6L, Triglycerides Level 62 , Cholesterol Level 156, LDL Cholesterol 87, HDL Cholesterol 67H, Cholesterol/ HDL Ratio 2.3L, Thyroid Stimulating Hormone (TSH) 0.520 Height (Feet): 5 Height (Inches): 7.00 Weight (Pounds): 139 General Appearance: confused EENT: normal ENT inspection Neck: normal alignment Cardiovascular: normal peripheral pulses, normal rate, regular rhythm Respiratory/Chest: chest wall non-tender, lungs clear, normal breath sounds Abdomen: normal bowel sounds, non tender, soft Extremities: normal inspection Edema: no edema noted Arm (L), no edema noted Arm (R), no edema noted Leg (L), no edema noted Leg (R), no edema noted Pedal (L), no edema noted Pedal (R), no edema noted Generalized Jaleel Moon DO May 27, 2018 12:20
--- NOTE | 2018-05-27 13:00 | Consultation ---
DATE OF CONSULTATION: 05/27/2018 INITIAL PSYCHIATRIC CONSULTATION CONSULTING PHYSICIAN: Gonzalez Kirk M.D. REFERRING PHYSICIAN: Jaleel Moon D.O. HISTORY OF PRESENT ILLNESS: This is a 67-year-old male patient with encephalopathy. He was at his nursing facility and he got confused and disorganized. Apparently, this patient got confused, had weakness, and started having aggressive behavior over at [facility], so his attending physician sent him into the hospital. He was confused, disorganized and mood labile, irritable, agitated, and he got very confused. So because his cognition has declined below his baseline, his attending has requested daily psychiatric consultation to prevent any further decline in his cognition and stabilize his mood, which is worsened secondary to stress of his medical illness. MEDICAL HISTORY: Chronic renal disease, hypertension, and also altered mental status. ALLERGIES: No known drug allergies. SUBSTANCE ABUSE HISTORY: The patient denies drug and alcohol use. SOCIAL HISTORY: He is financially supported by [employer] and Medicare. Lives in [facility]. No legal history. FAMILY PSYCHIATRIC HISTORY: Denies. PAIN ASSESSMENT: A 12/27 pain. DEVELOPMENTAL PROBLEMS: Denies. PSYCHIATRIC HISTORY: He has history of paranoid schizophrenia, rule out depression with psychotic features, rule out pseudodementia. STRENGTHS: As far as his strengths, he is motivated to get better and has a place to live. WEAKNESSES: He is impulsive with minimal support system. MENTAL STATUS EXAMINATION: This is a 67-year-old male. Appearance is disheveled. Attitude, irritable and agitated. Affect, guarded and restricted. Intellect poor. Mood depressed and anxious. Motor activity, psychomotor agitation. Attention span is poor. Orientation x2. Speech is pressured. Thought process, disorganized and illogical. Thought content, auditory hallucinations and paranoid delusions. Insight and judgment is poor. memory, 2 out of 3-word recall after 5-minute delay reveals poor memory. Long-term memory is intact based on his knowledge of long-term events in his life such as high school that he went to. DIAGNOSES: Major depressive disorder, mild, recurrent with psychotic features, rule out pseudodementia, rule out paranoid schizophrenia. Medical is chronic renal disease, hypertension, altered mental status, psychosocial stressors, financial. PLAN: I am going to treat this patient with Seroquel 50 mg p.o. q.8 h. for agitation and mood lability. Titrate up as needed throughout his hospital course. Remeron 15 mg p.o. at bedtime and Ativan 2 mg IM q.4 hours p.r.n. anxiety and agitation. He also received 20 minutes of cognitive behavioral therapy automatic negative thoughts and helped him to convert those to positive thoughts, reduce depression and anxiety. Chart reviewed. Discussed with staff. Seen and assessed in his room. I would like to thank, Dr. Jaleel Moon, for this interesting consultation. Yelena Roth M.D. DR: Antonella JOB#: [id number] CC:
--- NOTE | 2018-05-27 14:37 | Pulmonology Progress Note ---
Assessment/Plan Problems: (1) Acute encephalopathy (2) Paranoia (3) Prostate cancer (4) CKD (chronic kidney disease) (5) Hepatitis C (6) Dementia (7) Methadone maintenance therapy patient Assessment/Plan less agitated symptomatic treatment check electrolytes pain management dvt prophylaxis Subjective ROS Limited/Unobtainable: No Constitutional: Reports: no symptoms HEENT: Repors: no symptoms Respiratory: Reports: no symptoms Cardiovascular: Reports: no symptoms Allergies: Coded Allergies: NO KNOWN ALLERGIES (Verified Allergy, Unknown, 05/05/18) Objective Last 24 Hour Vital Signs Date Time Temp Pulse Resp B/P (MAP) Pulse Ox O2 Delivery O2 Flow Rate FiO2 05/27/18 12:00 97.9 80 19 119/87 (98) 100 97.9 05/27/18 09:00 Room Air 05/27/18 09:00 88 108/60 05/27/18 08:00 97.5 88 21 108/60 (76) 100 97.5 05/27/18 04:04 98.2 78 20 124/99 (107) 98 98.2 05/27/18 00:24 98.0 76 17 100/69 (79) 97 98.0 05/26/18 21:10 95 135/80 05/26/18 21:00 Room Air 05/26/18 20:30 98.3 95 18 135/80 (98) 98 98.3 05/26/18 18:00 Room Air 05/26/18 16:03 98.1 91 18 128/82 (97) 100 98.1 05/26/18 15:30 97.3 74 17 128/76 100 Room Air 97.3 05/26/18 15:00 74 17 128/76 100 Room Air Intake and Output 05/26/18 05/27/18 19:00 07:00 Intake Total 0 ml 1240 ml Output Total 800 ml Balance 0 ml 440 ml Intake Oral 0 ml 240 ml IV Total 1000 ml Output Urine Total 800 ml # Voids 3 # Bowel Movements 1 2 General Appearance: WD/WN HEENT: normocephalic, anicteric Respiratory/Chest: chest wall non-tender, lungs clear Cardiovascular: normal peripheral pulses, normal rate Abdomen: normal bowel sounds, soft, non tender Genitourinary: normal external genitalia Extremities: no cyanosis Skin: no rash Laboratory Tests 05/26/18 20:45: Erythrocyte Sedimentation Rate 49H, Hemoglobin A1c 6.0, Vitamin B12 Level 480, Vitamin D 25-Hydroxy [Pending], 25-Hydroxy Vitamin D2 [Pending], 25-Hydroxy Vitamin D3 [Pending], Folate 16.1, Rapid Plasma Reagin [Pending] 05/27/18 03:25: Urine Color Pale yellow, Urine Appearance Cloudy, Urine pH 6, Urine Specific [place] 1.010, Urine Protein 2+H, Urine Glucose (UA) Negative, Urine Ketones Negative, Urine Occult Blood 3+H, Urine Nitrite Negative, Urine Bilirubin Negative, Urine Urobilinogen Normal, Urine Leukocyte Esterase 3+H, Urine RBC 10- 15H, Urine WBC TntcH, Urine Squamous Epithelial Cells Few, Urine Bacteria ManyH 05/27/18 05:40: White Blood Count 8.4, Red Blood Count 4.01L, Hemoglobin 11.9L, Hematocrit 36.9L , Mean Corpuscular Volume 92, Mean Corpuscular Hemoglobin 29.7, Mean Corpuscular Hemoglobin Concent 32.3, Red Cell Distribution Width 13.1, Platelet Count 221, Mean Platelet Volume 6.4L, Neutrophils (%) (Auto) 53.2, Lymphocytes ( %) (Auto) 37.1, Monocytes (%) (Auto) 7.9, Eosinophils (%) (Auto) 1.5, Basophils (%) (Auto) 0.2, Sodium Level 143, Potassium Level 4.6, Chloride Level 112H, Carbon Dioxide Level 22, Anion Gap 9, Blood Urea Nitrogen 29H, Creatinine 1.9H, Estimat Glomerular Filtration Rate 42.9, Glucose Level 86, Calcium Level 8.5, Total Bilirubin 0.6, Aspartate Amino Transf (AST/SGOT) 28, Alanine Aminotransferase (ALT/SGPT) 16, Alkaline Phosphatase 85, Total Protein 7.3, Albumin 2.8L, Globulin 4.5, Albumin/Globulin Ratio 0.6L, Triglycerides Level 62 , Cholesterol Level 156, LDL Cholesterol 87, HDL Cholesterol 67H, Cholesterol/ HDL Ratio 2.3L, Thyroid Stimulating Hormone (TSH) 0.520 Current Medications Medications (Trade) Dose Ordered Sig/Lucie Route PRN Reason Start Time Stop Time Status Last Admin Dose Admin Acetaminophen (Tylenol) 650 mg Q4H PRN ORAL fever 05/26/18 14:45 06/25/18 14:44 Al Hydroxide/Mg Hydroxide (Mylanta II) 30 ml Q6H PRN ORAL dyspepsia 05/26/18 14:45 06/25/18 14:44 Dextrose (Dextrose 50%) STAT PRN IV Hypoglycemia 05/26/18 14:45 06/25/18 14:44 Lorazepam (Ativan 2mg/ml 1ml) 2 mg Q4H PRN IM For Anxiety 05/26/18 17:00 06/02/18 16:59 05/27/18 13:22 Metoprolol Tartrate (Lopressor) 25 mg Q12HR ORAL 05/26/18 21:00 06/25/18 20:59 05/26/18 21:10 Mirtazapine (Remeron) 15 mg BEDTIME ORAL 05/26/18 21:00 06/25/18 20:59 05/26/18 21:09 Morphine Sulfate (Morphine Sulfate) 1 mg EVERY 4 HOURS PRN IVP For Pain 05/26/18 14:45 06/02/18 14:44 05/27/18 11:26 Ondansetron HCl (Zofran) 4 mg Q6H PRN IVP Nausea & Vomiting 05/26/18 14:45 06/25/18 14:44 Polyethylene Glycol (Miralax) 17 gm HSPRN PRN ORAL Constipation 05/26/18 14:45 06/25/18 14:44 Quetiapine Fumarate (SEROquel) 50 mg Q8HR ORAL 05/26/18 22:00 06/25/18 21:59 05/27/18 06:23 Risperidone (RisperDAL) 1 mg BID ORAL 05/27/18 18:00 06/26/18 17:59 Sodium Chloride 1,000 ml @ 100 mls/hr Q10H IV 05/26/18 17:00 06/25/18 16:59 05/27/18 03:13 Tamsulosin HCl (Flomax) 0.4 mg BEDTIME ORAL 05/26/18 21:00 06/25/18 20:59 05/26/18 21:10 Zolpidem Tartrate (Ambien) 5 mg HSPRN PRN ORAL Insomnia 05/26/18 14:45 06/02/18 14:44 German Mooney MD May 27, 2018 14:37
[2018-05-27 16:00] VITALS: BP 119/85
[2018-05-27] MEDS ORDERED: Haloperidol 5mg/ml Inj IM SCH (16:00)
--- NOTE | 2018-05-27 16:07 | Cardiology Report ---
APPROVED REPORT EKG Measurement Heart [id number] Normal sinus rhythm ST elevation, consider early repolarization, pericarditis, or injury Abnormal ECG
--- NOTE | 2018-05-27 16:13 | Neurology Progress Note ---
Interim History Interim History Interim History Mr. Roth feels well. He is delusional. He is floridly hallucinating. He is seeing a boy and man that do not exist in his room. He continues to be aphasic. He continues to be cognitively impoverished. Review of Systems Neuro Review of Systems Benign. Objective Physical Exam Last Vital Signs Date Time Temp Pulse Resp B/P (MAP) Pulse Ox O2 Delivery O2 Flow Rate FiO2 05/27/18 12:00 97.9 80 19 119/87 (98) 100 97.9 05/27/18 09:00 Room Air Laboratory Tests Test 05/26/18 20:45 05/27/18 03:25 05/27/18 05:40 Erythrocyte Sedimentation Rate 49 MM/HR (0-20) H Hemoglobin A1c 6.0 % (4.3-6.0) Vitamin B12 Level 480 PG/ML (193-986) Vitamin D 25-Hydroxy Pending 25-Hydroxy Vitamin D2 Pending 25-Hydroxy Vitamin D3 Pending Folate 16.1 NG/ML (8.6-58.9) Rapid Plasma Reagin Pending Urine Color Pale yellow Urine Appearance Cloudy Urine pH 6 (4.5-8.0) Urine Specific [place] 1.010 (1.005-1.035) Urine Protein 2+ (NEGATIVE) H Urine Glucose (UA) Negative (NEGATIVE) Urine Ketones Negative (NEGATIVE) Urine Occult Blood 3+ (NEGATIVE) H Urine Nitrite Negative (NEGATIVE) Urine Bilirubin Negative (NEGATIVE) Urine Urobilinogen Normal MG/DL (NORMAL) Urine Leukocyte Esterase 3+ (NEGATIVE) H Urine RBC 10-15 /HPF (0 - 0) H Urine WBC Tntc /HPF (0 - 0) H Urine Squamous Epithelial Cells Few /LPF (NONE/OCC) Urine Bacteria Many /HPF (NONE) H White Blood Count 8.4 K/UL (4.8-10.8) Red Blood Count 4.01 M/UL (4.70-6.10) L Hemoglobin 11.9 G/DL (14.2-18.0) L Hematocrit 36.9 % (42.0-52.0) L Mean Corpuscular Volume 92 FL (80-99) Mean Corpuscular Hemoglobin 29.7 PG (27.0-31.0) Mean Corpuscular Hemoglobin Concent 32.3 G/DL (32.0-36.0) Red Cell Distribution Width 13.1 % (11.6-14.8) Platelet Count 221 K/UL (150-450) Mean Platelet Volume 6.4 FL (6.5-10.1) L Neutrophils (%) (Auto) 53.2 % (45.0-75.0) Lymphocytes (%) (Auto) 37.1 % (20.0-45.0) Monocytes (%) (Auto) 7.9 % (1.0-10.0) Eosinophils (%) (Auto) 1.5 % (0.0-3.0) Basophils (%) (Auto) 0.2 % (0.0-2.0) Sodium Level 143 MMOL/L (136-145) Potassium Level 4.6 MMOL/L (3.5-5.1) Chloride Level 112 MMOL/L (98-107) H Carbon Dioxide Level 22 MMOL/L (21-32) Anion Gap 9 mmol/L (5-15) Blood Urea Nitrogen 29 mg/dL (7-18) H Creatinine 1.9 MG/DL (0.55-1.30) H Estimat Glomerular Filtration Rate 42.9 mL/min (>60) Glucose Level 86 MG/DL (74-106) Calcium Level 8.5 MG/DL (8.5-10.1) Total Bilirubin 0.6 MG/DL (0.2-1.0) Aspartate Amino Transf (AST/SGOT) 28 U/L (15-37) Alanine Aminotransferase (ALT/SGPT) 16 U/L (12-78) Alkaline Phosphatase 85 U/L (46-116) Total Protein 7.3 G/DL (6.4-8.2) Albumin 2.8 G/DL (3.4-5.0) L Globulin 4.5 g/dL Albumin/Globulin Ratio 0.6 (1.0-2.7) L Triglycerides Level 62 MG/DL (30-150) Cholesterol Level 156 MG/DL (< 200) LDL Cholesterol 87 mg/dL (<100) HDL Cholesterol 67 MG/DL (40-60) H Cholesterol/HDL Ratio 2.3 (3.3-4.4) L Thyroid Stimulating Hormone (TSH) 0.520 uiU/mL (0.358-3.740) Neurologic Exam Objective PHYSICAL EXAMINATION: GENERAL: He is a well-developed relatively well-nourished black gentleman, lying in bed, in no acute distress. HEAD: Normocephalic and atraumatic. EENT: Examination benign. NECK: No neck rigidity was observed. NEUROLOGICAL EXAMINATION: MENTAL STATUS EXAMINATION: He was awake and alert. He was oriented to self only. He had no idea where he was or what the date was. He was able to recall 3/3 words immediately, but could not remember any of them in 1 minute and 3 minutes. He was unable to tell me who the present President was and who prior presidents were. He was unable to cooperate for further mental status testing. SPEECH: He had a mild dysarthria. LANGUAGE: He had an aphasia with significant problems expressing himself and less significant problems understanding commands. CRANIAL NERVE EXAMINATION: II: He did not cooperate for confrontation testing. He, however, was able to blink to threat. III, IV & : The external ocular movements were present on oculocephalic maneuvers. The pupils were 3 mm in diameter and reactive sluggishly to light. V & VII: The corneal reflexes were equal bilaterally. He had no facial asymmetry. VIII: He seemed to be able to hear well and had no nystagmus. IX: The palate moved symmetrically on phonation. X: He had no hoarseness of voice. XI: The sternocleidomastoids and trapezii functioned normally. XII: The tongue was in the midline without any fasciculations or atrophy. MOTOR SYSTEM: The tone was increased in all four extremities with gegenhalten. Examination of muscle mass revealed no focal wasting. Examination of power was impossible to perform on individual muscle groups, however, he moved all four extremities relatively well and had excellent hand scoop operator bilaterally. SENSORY EXAMINATION: He responded appropriately to painful stimuli. He did not cooperate for the sensory modalities. REFLEXES: Trace positive and bilaterally symmetrical at the biceps, triceps, brachioradialis, and knees, 0 at both ankles. The plantar responses were flexor bilaterally. COORDINATION, STANCE & GAIT: Could not be tested. Impression/Recommendations Diagnostic Impression 1. Mr. Arcadio Roth is a 67-year-old, right-handed, black gentleman, with a past history of hypertension, cerebrovascular disease with prior stroke, the exact details of which are unavailable to us, dementia, psychiatric illness and prostate cancer, who is institutionalized in a long term. He was hospitalized on 05/26/18 for a change in his mental state. The exact details of this change is unknown to us. 2. He feels well. He is delusional. He is floridly hallucinating. He is seeing a boy and man that do not exist in his room. He continues to be aphasic. He continues to be cognitively impoverished. 3. On neurological examination, at this time, he is not very cooperative. He is oriented to self only, has problems with recent and remote memory, visuospatial function and higher cognitive function, has a significant aphasia with an expressive greater than receptive component, is unable to give a good effort on testing motor power, but has excellent hand scoop operator and moves all extremities quite well, has globally diminished deep tendon reflexes and is unable to cooperate for testing of coordination, stance and gait. 4. Laboratory data obtained thus far revealed that he is mildly anemic with hemoglobin of 12.8, but his WBC count was normal at 7.9. His chemistry panel reveals BUN elevated to 35 and creatinine elevated to 2.5. 5. His Urine Analysis is consistent with a UTI. 6. The patient's history and neurological examination are most compatible with an encephalopathy superimposed and underlying dementia. 7. His behavioral problems are most probably related to an underlying psychiatric illness. 8. He is encephalopathic at this point in time, but it is unclear as to what the exact etiology for the encephalopathy is. He does have renal dysfunction, and a UTI which could be contributing. Recommendations 1. Continue present management. 2. Await CT scan of the brain to evaluate the patient for intracranial pathology. 3. Await EEG to evaluate the patient for the degree and type of encephalopathy. 4. Observe closely. Anaid Caceres M.D., M.S.P.[place]. ANAID CACERES May 27, 2018 16:13
[2018-05-27 20:00] VITALS: BP 128/69
[2018-05-27] MEDS: Tamsulosin 0.4mg cap ORAL SCH (20:29)
[2018-05-28] VITALS: BP 119/87
[2018-05-28] MEDS: LORazepam Inj 2mg/ml 1ml IM PRN ×2 (00:31→11:10)
[2018-05-28 04:00] VITALS: BP 116/67
[2018-05-28 07:55] LABS: ANION GAP 9 mmol/L (5-15); BLOOD UREA NITROGEN 24 mg/dL (7-18); CARBON DIOXIDE 21 MMOL/L (21-32); CHLORIDE 110 MMOL/L (98-107); CREATININE 1.7 MG/DL (0.55-1.30); POTASSIUM 4.9 MMOL/L (3.5-5.1); SODIUM 140 MMOL/L (136-145)
[2018-05-28 08:00] VITALS: BP 107/75
[2018-05-28] MEDS: Metoprolol 25mg tab ORAL SCH ×2 (09:00→20:24)
--- NOTE | 2018-05-28 10:52 | Nephrology Progress Note ---
Assessment/Plan Assessment 1.HAMZAH 2.CKD 3.HTN Plan Plan continue current iv monitoring renal function avoid NSAID replace electrolyte as need it Subjective Constitutional: Reports: no symptoms HEENT: Reports: no symptoms Genitourinary: Reports: no symptoms Neurologic/Psychiatric: Reports: no symptoms Subjective awake confused Objective Objective Last 24 Hour Vital Signs Date Time Temp Pulse Resp B/P (MAP) Pulse Ox O2 Delivery O2 Flow Rate FiO2 05/28/18 04:00 97.3 80 20 116/67 (83) 100 97.3 05/28/18 00:00 97.9 91 20 119/87 (98) 99 97.9 05/27/18 21:00 Room Air 05/27/18 20:30 100 128/69 05/27/18 20:00 97.6 100 20 128/69 (88) 100 97.6 05/27/18 16:00 97.5 75 19 119/85 (96) 100 97.5 05/27/18 12:00 97.9 80 19 119/87 (98) 100 97.9 Intake and Output 05/27/18 05/28/18 19:00 07:00 Intake Total 360 ml 120 ml Balance 360 ml 120 ml Intake Oral 360 ml 120 ml # Voids 5 2 # Bowel Movements 4 Laboratory Tests 05/28/18 06:53: Sodium Level 140, Potassium Level 4.9, Chloride Level 110H, Carbon Dioxide Level 21, Anion Gap 9, Blood Urea Nitrogen 24H, Creatinine 1.7H, Estimat Glomerular Filtration Rate 48.8, Glucose Level 87, Calcium Level 9.0, Ammonia < 10L Height (Feet): 5 Height (Inches): 7.00 Weight (Pounds): 139 Objective HEENT: Extraocular muscle intact. No lymphadenopathy noted. CARDIOVASCULAR: S1 and S2. No rubs or gallops. PULMONARY: Clear to auscultation bilaterally. No rales, rhonchi or wheezes. ABDOMEN: Nondistended and nontender. EXTREMITIES: No edema noted. Pamela Davila MD May 28, 2018 10:52
[2018-05-28 11:37] LABS: BASOPHILS % (AUTO) 0.5 % (0.0-2.0); EOSINOPHILS % (AUTO) 1.4 % (0.0-3.0); HEMATOCRIT 41.9 % (42.0-52.0); HEMOGLOBIN 13.4 G/DL (14.2-18.0); LYMPHOCYTES % (AUTO) 52.5 % (20.0-45.0); MEAN CORPUSCULAR VOLUME 92 FL (80-99); MONOCYTES % (AUTO) 6.6 % (1.0-10.0); PLATELET COUNT 235 K/UL (150-450); RED BLOOD COUNT 4.56 M/UL (4.70-6.10); RED CELL DISTRIBUTION WIDTH 13.1 % (11.6-14.8)
--- NOTE | 2018-05-28 11:43 | Neurology Progress Note ---
Interim History Interim History Interim History Mr. Roth feels better today. He continues to be floridly delusional. He is having visual hallucinations. He is seeing a "mean bh" that does not exist in his room. He continues to be aphasic. He continues to be cognitively impoverished. He feels stronger. He refused his EEG. Review of Systems Neuro Review of Systems Benign. Objective Physical Exam Last Vital Signs Date Time Temp Pulse Resp B/P (MAP) Pulse Ox O2 Delivery O2 Flow Rate FiO2 05/28/18 09:00 Room Air 05/28/18 09:00 105 107/75 05/28/18 08:00 98.5 19 96 98.5 Laboratory Tests Test 05/28/18 06:53 05/28/18 11:30 Sodium Level 140 MMOL/L (136-145) Potassium Level 4.9 MMOL/L (3.5-5.1) Chloride Level 110 MMOL/L (98-107) H Carbon Dioxide Level 21 MMOL/L (21-32) Anion Gap 9 mmol/L (5-15) Blood Urea Nitrogen 24 mg/dL (7-18) H Creatinine 1.7 MG/DL (0.55-1.30) H Estimat Glomerular Filtration Rate 48.8 mL/min (>60) Glucose Level 87 MG/DL (74-106) Calcium Level 9.0 MG/DL (8.5-10.1) Ammonia < 10 umol/L (11-32) L White Blood Count Pending Red Blood Count Pending Hemoglobin Pending Hematocrit Pending Mean Corpuscular Volume Pending Mean Corpuscular Hemoglobin Pending Mean Corpuscular Hemoglobin Concent Pending Red Cell Distribution Width Pending Platelet Count Pending Mean Platelet Volume Pending Neutrophils (%) (Auto) Pending Lymphocytes (%) (Auto) Pending Monocytes (%) (Auto) Pending Eosinophils (%) (Auto) Pending Basophils (%) (Auto) Pending Neurologic Exam Objective PHYSICAL EXAMINATION: GENERAL: He is a well-developed relatively well-nourished black gentleman, lying in bed, in no acute distress. HEAD: Normocephalic and atraumatic. EENT: Examination benign. NECK: No neck rigidity was observed. NEUROLOGICAL EXAMINATION: MENTAL STATUS EXAMINATION: He was awake and alert. He was oriented to self only. He had no idea as to where he was or what the date was. He was able to recall 3/3 words immediately, but could not remember any of them in 1 minute and 3 minutes. He was unable to tell me who the present President was and who prior presidents were. He was unable to cooperate for further mental status testing. SPEECH: He had a mild dysarthria. LANGUAGE: He had an aphasia with significant problems expressing himself and less significant problems understanding commands. CRANIAL NERVE EXAMINATION: II: He did not cooperate for confrontation testing. He, however, was able to blink to threat. III, IV & : The external ocular movements were present on oculocephalic maneuvers. The pupils were 3 mm in diameter and reactive sluggishly to light. V & VII: The corneal reflexes were equal bilaterally. He had no facial asymmetry. VIII: He seemed to be able to hear well and had no nystagmus. IX: The palate moved symmetrically on phonation. X: He had no hoarseness of voice. XI: The sternocleidomastoids and trapezii functioned normally. XII: The tongue was in the midline without any fasciculations or atrophy. MOTOR SYSTEM: The tone was increased in all four extremities with gegenhalten. Examination of muscle mass revealed no focal wasting. Examination of power was impossible to perform on individual muscle groups, however, he moved all four extremities relatively well and had excellent hand ammonia technician bilaterally. SENSORY EXAMINATION: He responded appropriately to painful stimuli. He did not cooperate for the sensory modalities. REFLEXES: Trace positive and bilaterally symmetrical at the biceps, triceps, brachioradialis, and knees, 0 at both ankles. The plantar responses were flexor bilaterally. COORDINATION, STANCE & GAIT: Could not be tested. Impression/Recommendations Diagnostic Impression 1. Mr. Arcadio Roth is a 67-year-old, right-handed, black gentleman, with a past history of hypertension, cerebrovascular disease with prior stroke, the exact details of which are unavailable to us, dementia, psychiatric illness and prostate cancer, who is institutionalized in a senior living. He was hospitalized on 05/26/18 for a change in his mental state. The exact details of this change is unknown to us. 2. He feels better. He continues to be floridly delusional. He is having visual hallucinations. He is seeing a "mean bh" that does not exist in his room. He continues to be aphasic. He continues to be cognitively impoverished. He feels stronger. He refused his EEG. 3. On neurological examination, at this time, he is more cooperative. He is oriented to self only, has problems with recent and remote memory, visuospatial function and higher cognitive function, has a significant aphasia with an expressive greater than receptive component, is unable to give a good effort on testing motor power, but has excellent hand ammonia technician and moves all extremities quite well, has globally diminished deep tendon reflexes and is unable to cooperate for testing of coordination, stance and gait. 4. Laboratory data obtained thus far revealed that he is mildly anemic with hemoglobin of 12.8, but his WBC count was normal at 7.9. His chemistry panel reveals BUN elevated to 35 and creatinine elevated to 2.5. 5. His Urine Analysis is consistent with a UTI. 6. The patient's history and neurological examination are most compatible with an encephalopathy superimposed and underlying dementia. 7. His behavioral problems are most probably related to an underlying psychiatric illness - most probably schizophrenia. 8. He is encephalopathic at this point in time, but it is unclear as to what the exact etiology for the encephalopathy is. He does have renal dysfunction, and a UTI which could be contributing. Recommendations 1. Continue present management. 2. Await CT scan of the brain to evaluate the patient for intracranial pathology. 3. Observe closely. 4. Increase activity as tolerated. Anaid Caceres M.D., M.S.P.H. ANAID CACERES May 28, 2018 11:43
[2018-05-28 12:00] VITALS: BP 118/83
--- NOTE | 2018-05-28 12:02 | Diagnostic Imaging Report ---
Indication: Severe altered mental status, dementia Technique: spiral acquisitions obtained through the brain. Angled axial and coronal 5 x 5 mm slices were reconstructed. No IV contrast utilized. Radiation dose was minimized using automated exposure control Total dose length product 1446.21 mGycm. CTDIvol(s) 70.38 mGy Comparison: 04/29/2018 FINDINGS: No acute hemorrhage or edema. No mass effect or midline shift. There is age-related enlargement of the ventricles and extra axial CSF spaces. There is periventricular deep white matter ischemic change. There is an old infarct of the anterior limb of left internal capsule, also previously demonstrated. Normal sal-white differentiation. Visualized orbits are unremarkable. Visualized sinuses are unremarkable. Intact calvarium. When compared to prior exam, no significant interim change IMPRESSION: Chronic and age-related changes. Negative for acute intracranial bleed or mass effect The CT scanner at [facility] is accredited by the [employer] and the scans are performed using protocols designed to limit radiation exposure to as low as reasonably achievable to attain images of sufficient resolution adequate for diagnostic evaluation
--- NOTE | 2018-05-28 13:41 | General Progress Note ---
Assessment/Plan Problem List: (1) CKD (chronic kidney disease) ICD Codes: N18.9 - CKD (chronic kidney disease) SNOMED: 158800070 (2) Confusion ICD Codes: R41.0 - Disorientation, unspecified SNOMED: 774960629 (3) UTI (urinary tract infection) ICD Codes: N39.0 - Urinary tract infection, site not specified SNOMED: 43862889 (4) Weakness ICD Codes: R53.1 - Weakness SNOMED: 94987194 Status: unchanged Assessment/Plan ot pt diet abx psyc tx cbc bmp am psyc transfer Subjective Constitutional: Reports: weakness Allergies: Coded Allergies: NO KNOWN ALLERGIES (Verified Allergy, Unknown, 05/05/18) All Systems: reviewed and negative except above Subjective confused agitated Objective Last 24 Hour Vital Signs Date Time Temp Pulse Resp B/P (MAP) Pulse Ox O2 Delivery O2 Flow Rate FiO2 05/28/18 12:00 97.8 84 18 118/83 (95) 95 97.8 05/28/18 09:00 Room Air 05/28/18 09:00 105 107/75 05/28/18 08:00 98.5 105 19 107/75 (86) 96 98.5 05/28/18 04:00 97.3 80 20 116/67 (83) 100 97.3 05/28/18 00:00 97.9 91 20 119/87 (98) 99 97.9 05/27/18 21:00 Room Air 05/27/18 20:30 100 128/69 05/27/18 20:00 97.6 100 20 128/69 (88) 100 97.6 05/27/18 16:00 97.5 75 19 119/85 (96) 100 97.5 Intake and Output 05/27/18 05/28/18 19:00 07:00 Intake Total 360 ml 120 ml Balance 360 ml 120 ml Intake Oral 360 ml 120 ml # Voids 5 2 # Bowel Movements 4 Laboratory Tests 05/28/18 06:53: Sodium Level 140, Potassium Level 4.9, Chloride Level 110H, Carbon Dioxide Level 21, Anion Gap 9, Blood Urea Nitrogen 24H, Creatinine 1.7H, Estimat Glomerular Filtration Rate 48.8, Glucose Level 87, Calcium Level 9.0, Ammonia < 10L 05/28/18 11:30: White Blood Count 9.0, Red Blood Count 4.56L, Hemoglobin 13.4L, Hematocrit 41.9L , Mean Corpuscular Volume 92, Mean Corpuscular Hemoglobin 29.3, Mean Corpuscular Hemoglobin Concent 31.9L, Red Cell Distribution Width 13.1, Platelet Count 235, Mean Platelet Volume 6.1L, Neutrophils (%) (Auto) 39.0L, Lymphocytes (%) (Auto) 52.5H, Monocytes (%) (Auto) 6.6, Eosinophils (%) (Auto) 1.4, Basophils (%) (Auto) 0.5 Height (Feet): 5 Height (Inches): 7.00 Weight (Pounds): 139 General Appearance: lethargic, confused EENT: normal ENT inspection Neck: normal alignment Cardiovascular: normal peripheral pulses, normal rate, regular rhythm Respiratory/Chest: chest wall non-tender, lungs clear, normal breath sounds Abdomen: normal bowel sounds, non tender, soft Extremities: normal inspection Edema: no edema noted Arm (L), no edema noted Arm (R), no edema noted Leg (L), no edema noted Leg (R), no edema noted Pedal (L), no edema noted Pedal (R), no edema noted Generalized Neurologic: motor weakness Skin: normal pigmentation, warm/dry Jaleel Moon DO May 28, 2018 13:41
--- NOTE | 2018-05-28 15:13 | Pulmonology Progress Note ---
Assessment/Plan Problems: (1) Acute encephalopathy (2) Paranoia (3) Prostate cancer (4) CKD (chronic kidney disease) (5) Hepatitis C (6) Dementia (7) Methadone maintenance therapy patient Assessment/Plan doing better less agitated symptomatic treatment check electrolytes pain management dvt prophylaxis Subjective ROS Limited/Unobtainable: No Constitutional: Reports: no symptoms Respiratory: Reports: no symptoms Allergies: Coded Allergies: NO KNOWN ALLERGIES (Verified Allergy, Unknown, 05/05/18) Objective Last 24 Hour Vital Signs Date Time Temp Pulse Resp B/P (MAP) Pulse Ox O2 Delivery O2 Flow Rate FiO2 05/28/18 12:00 97.8 84 18 118/83 (95) 95 97.8 05/28/18 09:00 Room Air 05/28/18 09:00 105 107/75 05/28/18 08:00 98.5 105 19 107/75 (86) 96 98.5 05/28/18 04:00 97.3 80 20 116/67 (83) 100 97.3 05/28/18 00:00 97.9 91 20 119/87 (98) 99 97.9 05/27/18 21:00 Room Air 05/27/18 20:30 100 128/69 05/27/18 20:00 97.6 100 20 128/69 (88) 100 97.6 05/27/18 16:00 97.5 75 19 119/85 (96) 100 97.5 Intake and Output 05/27/18 05/28/18 19:00 07:00 Intake Total 360 ml 120 ml Balance 360 ml 120 ml Intake Oral 360 ml 120 ml # Voids 5 2 # Bowel Movements 4 General Appearance: WD/WN HEENT: normocephalic, atraumatic Respiratory/Chest: chest wall non-tender, lungs clear Cardiovascular: normal peripheral pulses, normal rate Abdomen: soft, non tender, no organomegaly Extremities: no cyanosis Skin: no lesions Microbiology Date/Time Source Procedure Growth Status 05/26/18 10:15 Blood Blood Culture - Preliminary NO GROWTH AFTER 24 HOURS Resulted 05/26/18 10:00 Blood Blood Culture - Preliminary NO GROWTH AFTER 24 HOURS Resulted 05/26/18 10:35 Nasal Nares MRSA Culture - Final NO METHICILLIN RESISTANT STAPH AUREUS... Complete 05/27/18 03:25 Urine,Clean Catch Urine Culture - Preliminary Gram Negative Bacillus 1 Resulted Laboratory Tests 05/28/18 06:53: Sodium Level 140, Potassium Level 4.9, Chloride Level 110H, Carbon Dioxide Level 21, Anion Gap 9, Blood Urea Nitrogen 24H, Creatinine 1.7H, Estimat Glomerular Filtration Rate 48.8, Glucose Level 87, Calcium Level 9.0, Ammonia < 10L 05/28/18 11:30: White Blood Count 9.0, Red Blood Count 4.56L, Hemoglobin 13.4L, Hematocrit 41.9L , Mean Corpuscular Volume 92, Mean Corpuscular Hemoglobin 29.3, Mean Corpuscular Hemoglobin Concent 31.9L, Red Cell Distribution Width 13.1, Platelet Count 235, Mean Platelet Volume 6.1L, Neutrophils (%) (Auto) 39.0L, Lymphocytes (%) (Auto) 52.5H, Monocytes (%) (Auto) 6.6, Eosinophils (%) (Auto) 1.4, Basophils (%) (Auto) 0.5 Current Medications Medications (Trade) Dose Ordered Sig/Lucie Route PRN Reason Start Time Stop Time Status Last Admin Dose Admin Acetaminophen (Tylenol) 650 mg Q4H PRN ORAL fever 05/26/18 14:45 06/25/18 14:44 Al Hydroxide/Mg Hydroxide (Mylanta II) 30 ml Q6H PRN ORAL dyspepsia 05/26/18 14:45 06/25/18 14:44 Dextrose (Dextrose 50%) STAT PRN IV Hypoglycemia 05/26/18 14:45 06/25/18 14:44 Lorazepam (Ativan 2mg/ml 1ml) 2 mg Q4H PRN IM For Anxiety 05/26/18 17:00 06/02/18 16:59 05/28/18 11:10 Metoprolol Tartrate (Lopressor) 25 mg Q12HR ORAL 05/26/18 21:00 06/25/18 20:59 05/27/18 20:30 Mirtazapine (Remeron) 15 mg BEDTIME ORAL 05/26/18 21:00 06/25/18 20:59 05/27/18 20:29 Morphine Sulfate (Morphine Sulfate) 1 mg EVERY 4 HOURS PRN IVP For Pain 05/26/18 14:45 06/02/18 14:44 05/27/18 11:26 Ondansetron HCl (Zofran) 4 mg Q6H PRN IVP Nausea & Vomiting 05/26/18 14:45 06/25/18 14:44 Polyethylene Glycol (Miralax) 17 gm HSPRN PRN ORAL Constipation 05/26/18 14:45 06/25/18 14:44 Quetiapine Fumarate (SEROquel) 50 mg Q8HR ORAL 05/26/18 22:00 06/25/18 21:59 05/28/18 14:31 Risperidone (RisperDAL) 1 mg BID ORAL 05/27/18 18:00 06/26/18 17:59 05/28/18 10:47 Tamsulosin HCl (Flomax) 0.4 mg BEDTIME ORAL 05/26/18 21:00 06/25/18 20:59 05/27/18 20:29 Zolpidem Tartrate (Ambien) 5 mg HSPRN PRN ORAL Insomnia 05/26/18 14:45 06/02/18 14:44 German Mooney MD May 28, 2018 15:13
[2018-05-28 16:00] VITALS: BP 122/89
--- NOTE | 2018-05-28 18:45 | Consultation ---
DATE OF CONSULTATION: 05/27/2018 PSYCHOTHERAPY CONSULTATION PROGRESS NOTE CONSULTING PHYSICIAN: Faye Quintanilla PsyD. TREATING ATTENDING PHYSICIAN: Jaleel Moon D.O. HISTORY OF PRESENT ILLNESS: This is a 67-year-old male patient. The patient was brought into the hospital due to confusion, weakness and aggression. The patient is from [facility]. Because of agitation, irritability, and aggressive behavior, he was referred for psychotherapeutic services. This clinician assessed this patient. The patient is very agitated. The patient very agitated. The patient states that he has some . He is trying to get out of the bed. He is very confused. He had difficulty . PAST MEDICAL HISTORY: History of hypertension, chronic kidney disease. ALLERGIES: The patient has no known drug allergies. SUBSTANCE ABUSE HISTORY: The patient denies history of alcohol use, illicit substance use, or smoking cigarettes. PAST PSYCHIATRIC HISTORY: The patient paranoid schizophrenia. SOCIAL HISTORY: The patient is a 67-year-old male from [facility]. Financially sustained through [employer]. MENTAL STATUS EXAMINATION: The patient is alert and oriented to person and place. Mood is irritable. Affect is blunted. Thought process is disorganized. Thought content delusional. Poor attention and concentration. Poor insight, judgment, and impulse control. DIAGNOSIS: Rule out sign of schizophrenia and rule out major depressive disorder, recurrent psychotic features. PLAN: This clinician assessed this patient's mental status, provided the patient with reality orientation supportive psychotherapy. . Continue with behavioral management. This clinician has reviewed the patient's chart and discussed the treatment with treatment team . Faye Quintanilla PsyD. : ADAMA JOB#: [id number] CC:
[2018-05-28 20:00] VITALS: BP 113/95
[2018-05-28] MEDS: Tamsulosin 0.4mg cap ORAL SCH (20:23)
[2018-05-29] VITALS: BP 124/84
--- NOTE | 2018-05-29 00:30 | Consultation ---
DATE OF CONSULTATION: 05/28/2018 CONSULTING PHYSICIAN: Yelena Roth M.D. HISTORY: This is a 67-year-old male patient who continues to have confusion, agitation and altered mental status, worsened by his medical illness. That is why his attending physician has requested daily psychiatric consultation. His is still mood labile, slightly aggressive . MENTAL STATUS EXAMINATION: The patient is a 67-year-old male who appeared disheveled, agitated, irritable. Affect guarded and restricted. Intellect poor. Mood is depressed, anxious. Motor activity, psychomotor agitation. Attention span is poor. Orientation x2. Speech is low volume and slurred. Thought process, disorganized and illogical. Thought content, paranoid delusions and auditory hallucinations. Insight and judgment poor. DIAGNOSIS: Paranoid schizophrenia with acute exacerbation, rule out major depression with psychotic features, rule out pseudodementia. Treat the patient with Seroquel 50 mg q.8 h., Remeron 15 mg at bedtime, and Ativan 2 mg IM q.4 h., as needed for anxiety and agitation. Provided 20 minutes of insight oriented psychotherapy to help the patient to evaluate his mental illness and help him recognize his negative thoughts and help him convert to positive thoughts. A 20 minutes of insight oriented psychotherapy provided. Chart reviewed. Discussed with staff. Seen and assessed at bedside. Yelena Roth M.D. DR: MARIBEL JOB#: [id number] CC:
[2018-05-29 04:03] VITALS: BP 140/96
[2018-05-29 06:21] LABS: BASOPHILS % (AUTO) 0.6 % (0.0-2.0); EOSINOPHILS % (AUTO) 1.5 % (0.0-3.0); HEMATOCRIT 39.4 % (42.0-52.0); LYMPHOCYTES % (AUTO) 39.3 % (20.0-45.0); MEAN CORPUSCULAR VOLUME 92 FL (80-99); MONOCYTES % (AUTO) 7.4 % (1.0-10.0); NEUTROPHILS % (AUTO) 51.2 % (45.0-75.0); PLATELET COUNT 238 K/UL (150-450); RED BLOOD COUNT 4.31 M/UL (4.70-6.10); RED CELL DISTRIBUTION WIDTH 12.9 % (11.6-14.8); WHITE BLOOD COUNT 8.1 K/UL (4.8-10.8)
[2018-05-29 06:34] LABS: ANION GAP 9 mmol/L (5-15); BLOOD UREA NITROGEN 20 mg/dL (7-18); CARBON DIOXIDE 22 MMOL/L (21-32); CHLORIDE 109 MMOL/L (98-107); CREATININE 1.6 MG/DL (0.55-1.30); POTASSIUM 4.2 MMOL/L (3.5-5.1); SODIUM 140 MMOL/L (136-145)
[2018-05-29 08:00] VITALS: BP 105/79
[2018-05-29] MEDS: Metoprolol 25mg tab ORAL SCH ×2 (09:34→20:45)
--- NOTE | 2018-05-29 11:06 | Nephrology Progress Note ---
Assessment/Plan Assessment 1.HAMZAH 2.CKD 3.HTN Plan Plan continue current iv monitoring renal function avoid NSAID replace electrolyte as need it Subjective ROS Limited/Unobtainable: Yes Constitutional: Reports: no symptoms HEENT: Reports: no symptoms Genitourinary: Reports: no symptoms Neurologic/Psychiatric: Reports: no symptoms Subjective awake confused Objective Objective Last 24 Hour Vital Signs Date Time Temp Pulse Resp B/P (MAP) Pulse Ox O2 Delivery O2 Flow Rate FiO2 05/29/18 09:34 114 105/79 05/29/18 08:00 97.2 114 19 105/79 (88) 99 97.2 05/29/18 04:03 97.7 95 20 140/96 (111) 99 97.7 05/29/18 00:00 97.0 70 20 124/84 (97) 99 97.0 05/28/18 21:00 Room Air 05/28/18 20:24 89 133/92 05/28/18 20:00 97.7 100 20 113/95 (101) 98 97.7 05/28/18 16:00 97.9 64 19 122/89 (100) 97 97.9 05/28/18 12:00 97.8 84 18 118/83 (95) 95 97.8 Intake and Output 05/28/18 05/29/18 19:00 07:00 Intake Total 560 ml 600 ml Balance 560 ml 600 ml Intake Oral 560 ml 600 ml # Voids 4 3 # Bowel Movements 1 Laboratory Tests 05/28/18 11:30: White Blood Count 9.0, Red Blood Count 4.56L, Hemoglobin 13.4L, Hematocrit 41.9L , Mean Corpuscular Volume 92, Mean Corpuscular Hemoglobin 29.3, Mean Corpuscular Hemoglobin Concent 31.9L, Red Cell Distribution Width 13.1, Platelet Count 235, Mean Platelet Volume 6.1L, Neutrophils (%) (Auto) 39.0L, Lymphocytes (%) (Auto) 52.5H, Monocytes (%) (Auto) 6.6, Eosinophils (%) (Auto) 1.4, Basophils (%) (Auto) 0.5 05/29/18 05:50: White Blood Count 8.1, Red Blood Count 4.31L, Hemoglobin 13.0L, Hematocrit 39.4L , Mean Corpuscular Volume 92, Mean Corpuscular Hemoglobin 30.1, Mean Corpuscular Hemoglobin Concent 32.8, Red Cell Distribution Width 12.9, Platelet Count 238, Mean Platelet Volume 6.0L, Neutrophils (%) (Auto) 51.2, Lymphocytes ( %) (Auto) 39.3, Monocytes (%) (Auto) 7.4, Eosinophils (%) (Auto) 1.5, Basophils (%) (Auto) 0.6, Sodium Level 140, Potassium Level 4.2, Chloride Level 109H, Carbon Dioxide Level 22, Anion Gap 9, Blood Urea Nitrogen 20H, Creatinine 1.6H, Estimat Glomerular Filtration Rate 52.4, Glucose Level 100, Calcium Level 9.0 Height (Feet): 5 Height (Inches): 7.00 Weight (Pounds): 139 Objective HEENT: Extraocular muscle intact. No lymphadenopathy noted. CARDIOVASCULAR: S1 and S2. No rubs or gallops. PULMONARY: Clear to auscultation bilaterally. No rales, rhonchi or wheezes. ABDOMEN: Nondistended and nontender. EXTREMITIES: No edema noted. Pamela Davila MD May 29, 2018 11:06
--- NOTE | 2018-05-29 11:17 | General Progress Note ---
Assessment/Plan Problem List: (1) CKD (chronic kidney disease) ICD Codes: N18.9 - CKD (chronic kidney disease) SNOMED: 555593759 (2) Confusion ICD Codes: R41.0 - Disorientation, unspecified SNOMED: 783246138 (3) UTI (urinary tract infection) ICD Codes: N39.0 - Urinary tract infection, site not specified SNOMED: 14955273 (4) Weakness ICD Codes: R53.1 - Weakness SNOMED: 78568305 Status: unchanged Assessment/Plan ot pt diet abx psyc tx psyc transfer Subjective Constitutional: Reports: weakness Allergies: Coded Allergies: NO KNOWN ALLERGIES (Verified Allergy, Unknown, 05/05/18) All Systems: reviewed and negative except above Subjective confused agitated Objective Last 24 Hour Vital Signs Date Time Temp Pulse Resp B/P (MAP) Pulse Ox O2 Delivery O2 Flow Rate FiO2 05/29/18 09:34 114 105/79 05/29/18 08:00 97.2 114 19 105/79 (88) 99 97.2 05/29/18 04:03 97.7 95 20 140/96 (111) 99 97.7 05/29/18 00:00 97.0 70 20 124/84 (97) 99 97.0 05/28/18 21:00 Room Air 05/28/18 20:24 89 133/92 05/28/18 20:00 97.7 100 20 113/95 (101) 98 97.7 05/28/18 16:00 97.9 64 19 122/89 (100) 97 97.9 05/28/18 12:00 97.8 84 18 118/83 (95) 95 97.8 Intake and Output 05/28/18 05/29/18 19:00 07:00 Intake Total 560 ml 600 ml Balance 560 ml 600 ml Intake Oral 560 ml 600 ml # Voids 4 3 # Bowel Movements 1 Laboratory Tests 05/28/18 11:30: White Blood Count 9.0, Red Blood Count 4.56L, Hemoglobin 13.4L, Hematocrit 41.9L , Mean Corpuscular Volume 92, Mean Corpuscular Hemoglobin 29.3, Mean Corpuscular Hemoglobin Concent 31.9L, Red Cell Distribution Width 13.1, Platelet Count 235, Mean Platelet Volume 6.1L, Neutrophils (%) (Auto) 39.0L, Lymphocytes (%) (Auto) 52.5H, Monocytes (%) (Auto) 6.6, Eosinophils (%) (Auto) 1.4, Basophils (%) (Auto) 0.5 05/29/18 05:50: White Blood Count 8.1, Red Blood Count 4.31L, Hemoglobin 13.0L, Hematocrit 39.4L , Mean Corpuscular Volume 92, Mean Corpuscular Hemoglobin 30.1, Mean Corpuscular Hemoglobin Concent 32.8, Red Cell Distribution Width 12.9, Platelet Count 238, Mean Platelet Volume 6.0L, Neutrophils (%) (Auto) 51.2, Lymphocytes ( %) (Auto) 39.3, Monocytes (%) (Auto) 7.4, Eosinophils (%) (Auto) 1.5, Basophils (%) (Auto) 0.6, Sodium Level 140, Potassium Level 4.2, Chloride Level 109H, Carbon Dioxide Level 22, Anion Gap 9, Blood Urea Nitrogen 20H, Creatinine 1.6H, Estimat Glomerular Filtration Rate 52.4, Glucose Level 100, Calcium Level 9.0 Height (Feet): 5 Height (Inches): 7.00 Weight (Pounds): 139 General Appearance: confused EENT: normal ENT inspection Neck: normal alignment Cardiovascular: normal peripheral pulses, normal rate, regular rhythm Respiratory/Chest: chest wall non-tender, lungs clear, normal breath sounds Abdomen: normal bowel sounds, non tender, soft Extremities: normal inspection Edema: no edema noted Arm (L), no edema noted Arm (R), no edema noted Leg (L), no edema noted Leg (R), no edema noted Pedal (L), no edema noted Pedal (R), no edema noted Generalized Neurologic: motor weakness Skin: normal pigmentation, warm/dry Jaleel Moon DO May 29, 2018 11:17
[2018-05-29 12:00] VITALS: BP 128/87
--- NOTE | 2018-05-29 13:07 | Neurology Progress Note ---
Interim History Interim History Interim History Mr. Roth feels sleepy today. He is very subdued today. He denies any hallucinations. He continues to be aphasic. He continues to be cognitively impoverished. He feels stronger. Plans are to send him back to his halfway today. He denies any new neurologic problems. Review of Systems Neuro Review of Systems Benign. Objective Physical Exam Last Vital Signs Date Time Temp Pulse Resp B/P (MAP) Pulse Ox O2 Delivery O2 Flow Rate FiO2 05/29/18 09:34 114 105/79 05/29/18 08:00 97.2 19 99 97.2 05/29/18 08:00 Room Air Laboratory Tests Test 05/29/18 05:50 White Blood Count 8.1 K/UL (4.8-10.8) Red Blood Count 4.31 M/UL (4.70-6.10) L Hemoglobin 13.0 G/DL (14.2-18.0) L Hematocrit 39.4 % (42.0-52.0) L Mean Corpuscular Volume 92 FL (80-99) Mean Corpuscular Hemoglobin 30.1 PG (27.0-31.0) Mean Corpuscular Hemoglobin Concent 32.8 G/DL (32.0-36.0) Red Cell Distribution Width 12.9 % (11.6-14.8) Platelet Count 238 K/UL (150-450) Mean Platelet Volume 6.0 FL (6.5-10.1) L Neutrophils (%) (Auto) 51.2 % (45.0-75.0) Lymphocytes (%) (Auto) 39.3 % (20.0-45.0) Monocytes (%) (Auto) 7.4 % (1.0-10.0) Eosinophils (%) (Auto) 1.5 % (0.0-3.0) Basophils (%) (Auto) 0.6 % (0.0-2.0) Sodium Level 140 MMOL/L (136-145) Potassium Level 4.2 MMOL/L (3.5-5.1) Chloride Level 109 MMOL/L (98-107) H Carbon Dioxide Level 22 MMOL/L (21-32) Anion Gap 9 mmol/L (5-15) Blood Urea Nitrogen 20 mg/dL (7-18) H Creatinine 1.6 MG/DL (0.55-1.30) H Estimat Glomerular Filtration Rate 52.4 mL/min (>60) Glucose Level 100 MG/DL (74-106) Calcium Level 9.0 MG/DL (8.5-10.1) Neurologic Exam Objective PHYSICAL EXAMINATION: GENERAL: He is a well-developed relatively well-nourished black gentleman, lying in bed, in no acute distress. HEAD: Normocephalic and atraumatic. EENT: Examination benign. NECK: No neck rigidity was observed. NEUROLOGICAL EXAMINATION: MENTAL STATUS EXAMINATION: He was drowsy but could be aroused. When he was aroused he was awake but not alert. He was oriented to self only. He had no idea as to where he was or what the date was. He was unable to cooperate for further mental status testing. SPEECH: He had a mild dysarthria. LANGUAGE: He had an aphasia with significant problems expressing himself and less significant problems understanding commands. CRANIAL NERVE EXAMINATION: II: He did not cooperate for confrontation testing. He, however, was able to blink to threat. III, IV & : The external ocular movements were present on oculocephalic maneuvers. The pupils were 3 mm in diameter and reactive sluggishly to light. V & VII: The corneal reflexes were equal bilaterally. He had no facial asymmetry. VIII: He seemed to be able to hear well and had no nystagmus. IX: The palate moved symmetrically on phonation. X: He had no hoarseness of voice. XI: The sternocleidomastoids and trapezii functioned normally. XII: The tongue was in the midline without any fasciculations or atrophy. MOTOR SYSTEM: The tone was increased in all four extremities with gegenhalten. Examination of muscle mass revealed no focal wasting. Examination of power was impossible to perform on individual muscle groups, however, he moved all four extremities relatively well and had excellent hand mainspring former bilaterally. SENSORY EXAMINATION: He responded appropriately to painful stimuli. He did not cooperate for the sensory modalities. REFLEXES: Trace positive and bilaterally symmetrical at the biceps, triceps, brachioradialis, and knees, 0 at both ankles. The plantar responses were flexor bilaterally. COORDINATION, STANCE & GAIT: Could not be tested. Impression/Recommendations Diagnostic Impression 1. Mr. Arcadio Roth is a 67-year-old, right-handed, black gentleman, with a past history of hypertension, cerebrovascular disease with prior stroke, the exact details of which are unavailable to us, dementia, psychiatric illness and prostate cancer, who is institutionalized in a halfway. He was hospitalized on 05/26/18 for a change in his mental state. The exact details of this change is unknown to us. 2. He feels sleepy today. He is very subdued. He denies any hallucinations. He continues to be aphasic. He continues to be cognitively impoverished. He feels stronger. Plans are to send him back to his halfway today. He denies any new neurologic problems. 3. On neurological examination, at this time, he is somnolent but can be aroused. When aroused he is awake but not alert. He is oriented to self only, has problems with recent and remote memory, has a significant aphasia with an expressive greater than receptive component, is unable to give a good effort on testing motor power, but has excellent hand mainspring former and moves all extremities quite well, has globally diminished deep tendon reflexes and is unable to cooperate for testing of coordination, stance and gait. 4. Laboratory data obtained thus far revealed that he is mildly anemic with hemoglobin of 12.8, but his WBC count was normal at 7.9. His chemistry panel reveals BUN elevated to 35 and creatinine elevated to 2.5. 5. His Urine Analysis is consistent with a UTI. 6. The CT of the brain done on 05/28/18 revealed "chronic and age-related changes. Negative for acute intracranial bleed or mass effect." 7. The patient's history and neurological examination are most compatible with an encephalopathy superimposed and underlying dementia. 8. His behavioral problems are most probably related to an underlying psychiatric illness - most probably schizophrenia. 9. He is still encephalopathic. It is unclear as to what the exact etiology for the encephalopathy is. He does have renal dysfunction, and a UTI which could be contributing. Recommendations 1. Continue present management. 2. Increase activity as tolerated. 3. Appropriate treatment of infectious process. Anaid Caceres M.D., M.S.P.H. ANAID CACERES May 29, 2018 13:07
--- NOTE | 2018-05-29 14:34 | Pulmonology Progress Note ---
Assessment/Plan Problems: (1) Acute encephalopathy (2) Paranoia (3) Prostate cancer (4) CKD (chronic kidney disease) (5) Hepatitis C (6) Dementia (7) Methadone maintenance therapy patient Assessment/Plan doing better less agitated symptomatic treatment check electrolytes pain management dvt prophylaxis Subjective ROS Limited/Unobtainable: No Constitutional: Reports: no symptoms Respiratory: Reports: no symptoms Allergies: Coded Allergies: NO KNOWN ALLERGIES (Verified Allergy, Unknown, 05/05/18) Objective Last 24 Hour Vital Signs Date Time Temp Pulse Resp B/P (MAP) Pulse Ox O2 Delivery O2 Flow Rate FiO2 05/29/18 12:00 96.5 90 20 128/87 (101) 100 96.5 05/29/18 09:34 114 105/79 05/29/18 08:00 97.2 114 19 105/79 (88) 99 97.2 05/29/18 08:00 Room Air 05/29/18 04:03 97.7 95 20 140/96 (111) 99 97.7 05/29/18 00:00 97.0 70 20 124/84 (97) 99 97.0 05/28/18 21:00 Room Air 05/28/18 20:24 89 133/92 05/28/18 20:00 97.7 100 20 113/95 (101) 98 97.7 05/28/18 16:00 97.9 64 19 122/89 (100) 97 97.9 Intake and Output 05/28/18 05/29/18 19:00 07:00 Intake Total 560 ml 600 ml Balance 560 ml 600 ml Intake Oral 560 ml 600 ml # Voids 4 3 # Bowel Movements 1 General Appearance: WD/WN HEENT: normocephalic, atraumatic Respiratory/Chest: chest wall non-tender, lungs clear Cardiovascular: normal peripheral pulses, regular rhythm Abdomen: normal bowel sounds, soft, non tender Genitourinary: normal external genitalia Extremities: no clubbing Skin: no lesions Microbiology Date/Time Source Procedure Growth Status 05/27/18 03:25 Urine,Clean Catch Urine Culture - Preliminary Gram Negative Bacillus 1 Resulted 05/27/18 09:00 Rectal Mucosa VRE Culture - Final Enterococcus Faecium - Vre Enterococcus Faecalis - Vre Resulted 05/27/18 09:00 Rectal Mucosa - Preliminary Resulted Laboratory Tests 05/29/18 05:50: White Blood Count 8.1, Red Blood Count 4.31L, Hemoglobin 13.0L, Hematocrit 39.4L , Mean Corpuscular Volume 92, Mean Corpuscular Hemoglobin 30.1, Mean Corpuscular Hemoglobin Concent 32.8, Red Cell Distribution Width 12.9, Platelet Count 238, Mean Platelet Volume 6.0L, Neutrophils (%) (Auto) 51.2, Lymphocytes ( %) (Auto) 39.3, Monocytes (%) (Auto) 7.4, Eosinophils (%) (Auto) 1.5, Basophils (%) (Auto) 0.6, Sodium Level 140, Potassium Level 4.2, Chloride Level 109H, Carbon Dioxide Level 22, Anion Gap 9, Blood Urea Nitrogen 20H, Creatinine 1.6H, Estimat Glomerular Filtration Rate 52.4, Glucose Level 100, Calcium Level 9.0 Current Medications Medications (Trade) Dose Ordered Sig/Lucie Route PRN Reason Start Time Stop Time Status Last Admin Dose Admin Acetaminophen (Tylenol) 650 mg Q4H PRN ORAL fever 05/26/18 14:45 06/25/18 14:44 Al Hydroxide/Mg Hydroxide (Mylanta II) 30 ml Q6H PRN ORAL dyspepsia 05/26/18 14:45 06/25/18 14:44 Dextrose (Dextrose 50%) STAT PRN IV Hypoglycemia 05/26/18 14:45 06/25/18 14:44 Lorazepam (Ativan 2mg/ml 1ml) 2 mg Q4H PRN IM For Anxiety 05/26/18 17:00 06/02/18 16:59 05/28/18 11:10 Metoprolol Tartrate (Lopressor) 25 mg Q12HR ORAL 05/26/18 21:00 06/25/18 20:59 05/29/18 09:34 Mirtazapine (Remeron) 15 mg BEDTIME ORAL 05/26/18 21:00 06/25/18 20:59 05/28/18 20:23 Morphine Sulfate (Morphine Sulfate) 1 mg EVERY 4 HOURS PRN IVP For Pain 05/26/18 14:45 06/02/18 14:44 05/27/18 11:26 Ondansetron HCl (Zofran) 4 mg Q6H PRN IVP Nausea & Vomiting 05/26/18 14:45 06/25/18 14:44 Polyethylene Glycol (Miralax) 17 gm HSPRN PRN ORAL Constipation 05/26/18 14:45 06/25/18 14:44 Quetiapine Fumarate (SEROquel) 50 mg Q8HR ORAL 05/26/18 22:00 06/25/18 21:59 05/29/18 14:24 Risperidone (RisperDAL) 1 mg BID ORAL 05/27/18 18:00 06/26/18 17:59 05/29/18 09:34 Tamsulosin HCl (Flomax) 0.4 mg BEDTIME ORAL 05/26/18 21:00 06/25/18 20:59 05/28/18 20:23 Zolpidem Tartrate (Ambien) 5 mg HSPRN PRN ORAL Insomnia 05/26/18 14:45 06/02/18 14:44 German Mooney MD May 29, 2018 14:34
[2018-05-29 16:00] VITALS: BP 104/83
[2018-05-29 20:00] VITALS: BP 105/73
[2018-05-29] MEDS: Tamsulosin 0.4mg cap ORAL SCH (20:45)
[2018-05-30] VITALS: BP 130/98
[2018-05-30 04:00] VITALS: BP 108/77
[2018-05-30 07:56] VITALS: BP 108/82
[2018-05-30] MEDS: Metoprolol 25mg tab ORAL SCH ×2 (08:08→20:38)
--- NOTE | 2018-05-30 08:54 | General Progress Note ---
Assessment/Plan Problem List: (1) CKD (chronic kidney disease) ICD Codes: N18.9 - CKD (chronic kidney disease) SNOMED: 576867935 (2) Confusion ICD Codes: R41.0 - Disorientation, unspecified SNOMED: 147883419 (3) UTI (urinary tract infection) ICD Codes: N39.0 - Urinary tract infection, site not specified SNOMED: 06865879 (4) Weakness ICD Codes: R53.1 - Weakness SNOMED: 06670153 Status: unchanged Assessment/Plan ot pt diet abx psyc tx cbc bmp am psyc transfer vs dc Subjective Constitutional: Reports: weakness Allergies: Coded Allergies: NO KNOWN ALLERGIES (Verified Allergy, Unknown, 05/05/18) All Systems: reviewed and negative except above Subjective confused agitated Objective Last 24 Hour Vital Signs Date Time Temp Pulse Resp B/P (MAP) Pulse Ox O2 Delivery O2 Flow Rate FiO2 05/30/18 08:08 96 108/82 05/30/18 07:56 98.0 96 21 108/82 (91) 96 98.0 05/30/18 04:00 97.3 78 18 108/77 (87) 98 97.3 05/30/18 00:00 97.5 83 17 130/98 (109) 96 97.5 05/29/18 21:00 Room Air 05/29/18 20:45 64 101/55 05/29/18 20:00 98.1 73 18 105/73 (84) 97 98.1 05/29/18 16:00 97.0 107 21 104/83 (90) 97 97.0 05/29/18 12:00 96.5 90 20 128/87 (101) 100 96.5 05/29/18 09:34 114 105/79 Intake and Output 05/29/18 05/30/18 19:00 07:00 Intake Total 500 ml 480 ml Output Total 200 ml Balance 500 ml 280 ml Intake Oral 500 ml 480 ml Output Urine Total 200 ml # Voids 2 2 Height (Feet): 5 Height (Inches): 7.00 Weight (Pounds): 139 General Appearance: confused EENT: normal ENT inspection Neck: normal alignment Cardiovascular: normal peripheral pulses, normal rate, regular rhythm Respiratory/Chest: chest wall non-tender, lungs clear, normal breath sounds Abdomen: normal bowel sounds, non tender, soft Extremities: normal inspection Edema: no edema noted Arm (L), no edema noted Arm (R), no edema noted Leg (L), no edema noted Leg (R), no edema noted Pedal (L), no edema noted Pedal (R), no edema noted Generalized Neurologic: motor weakness Skin: normal pigmentation, warm/dry Jaleel Moon DO May 30, 2018 08:54
--- NOTE | 2018-05-30 11:13 | Pulmonology Progress Note ---
Assessment/Plan Problems: (1) Acute encephalopathy (2) Paranoia (3) Prostate cancer (4) CKD (chronic kidney disease) (5) Hepatitis C (6) Dementia (7) Methadone maintenance therapy patient Assessment/Plan no new complians doing better less agitated symptomatic treatment check electrolytes pain management dvt prophylaxis Subjective ROS Limited/Unobtainable: No Constitutional: Reports: no symptoms HEENT: Repors: no symptoms Respiratory: Reports: no symptoms Allergies: Coded Allergies: NO KNOWN ALLERGIES (Verified Allergy, Unknown, 05/05/18) Objective Last 24 Hour Vital Signs Date Time Temp Pulse Resp B/P (MAP) Pulse Ox O2 Delivery O2 Flow Rate FiO2 05/30/18 09:00 Room Air 05/30/18 08:08 96 108/82 05/30/18 07:56 98.0 96 21 108/82 (91) 96 98.0 05/30/18 04:00 97.3 78 18 108/77 (87) 98 97.3 05/30/18 00:00 97.5 83 17 130/98 (109) 96 97.5 05/29/18 21:00 Room Air 05/29/18 20:45 64 101/55 05/29/18 20:00 98.1 73 18 105/73 (84) 97 98.1 05/29/18 16:00 97.0 107 21 104/83 (90) 97 97.0 05/29/18 12:00 96.5 90 20 128/87 (101) 100 96.5 Intake and Output 05/29/18 05/30/18 19:00 07:00 Intake Total 500 ml 480 ml Output Total 200 ml Balance 500 ml 280 ml Intake Oral 500 ml 480 ml Output Urine Total 200 ml # Voids 2 2 Objective General Appearance: cachectic HEENT: normocephalic, atraumatic Respiratory/Chest: chest wall non-tender, lungs clear Breasts: no masses Cardiovascular: normal peripheral pulses, no gallop/murmur Abdomen: no organomegaly, no mass Genitourinary: normal external genitalia Extremities: no clubbing Current Medications Medications (Trade) Dose Ordered Sig/Lucie Route PRN Reason Start Time Stop Time Status Last Admin Dose Admin Acetaminophen (Tylenol) 650 mg Q4H PRN ORAL fever 05/26/18 14:45 06/25/18 14:44 Al Hydroxide/Mg Hydroxide (Mylanta II) 30 ml Q6H PRN ORAL dyspepsia 05/26/18 14:45 06/25/18 14:44 Dextrose (Dextrose 50%) STAT PRN IV Hypoglycemia 05/26/18 14:45 06/25/18 14:44 Lorazepam (Ativan 2mg/ml 1ml) 2 mg Q4H PRN IM For Anxiety 05/26/18 17:00 06/02/18 16:59 05/28/18 11:10 Metoprolol Tartrate (Lopressor) 25 mg Q12HR ORAL 05/26/18 21:00 06/25/18 20:59 05/29/18 09:34 Mirtazapine (Remeron) 15 mg BEDTIME ORAL 05/26/18 21:00 06/25/18 20:59 05/29/18 20:45 Morphine Sulfate (Morphine Sulfate) 1 mg EVERY 4 HOURS PRN IVP For Pain 05/26/18 14:45 06/02/18 14:44 05/27/18 11:26 Ondansetron HCl (Zofran) 4 mg Q6H PRN IVP Nausea & Vomiting 05/26/18 14:45 06/25/18 14:44 Polyethylene Glycol (Miralax) 17 gm HSPRN PRN ORAL Constipation 05/26/18 14:45 06/25/18 14:44 Quetiapine Fumarate (SEROquel) 50 mg Q8HR ORAL 05/26/18 22:00 06/25/18 21:59 05/30/18 05:13 Risperidone (RisperDAL) 1 mg BID ORAL 05/27/18 18:00 06/26/18 17:59 05/30/18 08:05 Tamsulosin HCl (Flomax) 0.4 mg BEDTIME ORAL 05/26/18 21:00 06/25/18 20:59 05/29/18 20:45 Zolpidem Tartrate (Ambien) 5 mg HSPRN PRN ORAL Insomnia 05/26/18 14:45 06/02/18 14:44 German Mooney MD May 30, 2018 11:13
[2018-05-30 11:47] VITALS: BP 97/84
--- NOTE | 2018-05-30 12:34 | Neurology Progress Note ---
Interim History Interim History Interim History Mr. Roth is awake and alert. He is enjoying his lunch. He is again having benign visual hallucinations. He continues to be aphasic. He continues to be cognitively impoverished. He feels stronger. He denies any new neurologic problems. Review of Systems Neuro Review of Systems Benign. Objective Physical Exam Last Vital Signs Date Time Temp Pulse Resp B/P (MAP) Pulse Ox O2 Delivery O2 Flow Rate FiO2 05/30/18 11:47 96.8 88 21 97/84 (88) 100 96.8 05/30/18 09:00 Room Air Neurologic Exam Objective PHYSICAL EXAMINATION: GENERAL: He is a well-developed relatively well-nourished black gentleman, lying in bed, in no acute distress. HEAD: Normocephalic and atraumatic. EENT: Examination benign. NECK: No neck rigidity was observed. NEUROLOGICAL EXAMINATION: MENTAL STATUS EXAMINATION: He was awake and alert. He was oriented to self only. He had no idea as to where he was or what the date was. He was unable to cooperate for further mental status testing. SPEECH: He had a mild dysarthria. LANGUAGE: He had an aphasia with significant problems expressing himself and less significant problems understanding commands. CRANIAL NERVE EXAMINATION: II: He did not cooperate for confrontation testing. He, however, was able to blink to threat. III, IV & : The external ocular movements were present on oculocephalic maneuvers. The pupils were 3 mm in diameter and reactive sluggishly to light. V & VII: The corneal reflexes were equal bilaterally. He had no facial asymmetry. VIII: He seemed to be able to hear well and had no nystagmus. IX: The palate moved symmetrically on phonation. X: He had no hoarseness of voice. XI: The sternocleidomastoids and trapezii functioned normally. XII: The tongue was in the midline without any fasciculations or atrophy. MOTOR SYSTEM: The tone was increased in all four extremities with gegenhalten. Examination of muscle mass revealed no focal wasting. Examination of power was impossible to perform on individual muscle groups, however, he moved all four extremities relatively well and had excellent hand er nurse bilaterally. SENSORY EXAMINATION: He responded appropriately to painful stimuli. He did not cooperate for the sensory modalities. REFLEXES: Trace positive and bilaterally symmetrical at the biceps, triceps, brachioradialis, and knees, 0 at both ankles. The plantar responses were flexor bilaterally. COORDINATION, STANCE & GAIT: Could not be tested. Impression/Recommendations Diagnostic Impression 1. Mr. Arcadio Roth is a 67-year-old, right-handed, black gentleman, with a past history of hypertension, cerebrovascular disease with prior stroke, the exact details of which are unavailable to us, dementia, psychiatric illness and prostate cancer, who is institutionalized in a jail. He was hospitalized on 05/26/18 for a change in his mental state. The exact details of this change is unknown to us. 2. He feels well. He is awake and alert. He is enjoying his lunch. He is again having benign visual hallucinations. He continues to be aphasic. He continues to be cognitively impoverished. He feels stronger. He denies any new neurologic problems. 3. On neurological examination, at this time, he is awake and alert. He is oriented to self only, has problems with recent and remote memory, has a significant aphasia with an expressive greater than receptive component, is unable to give a good effort on testing motor power, but has excellent hand er nurse and moves all extremities quite well, has globally diminished deep tendon reflexes and is unable to cooperate for testing of coordination, stance and gait. 4. Laboratory data obtained thus far revealed that he is mildly anemic with hemoglobin of 12.8, but his WBC count was normal at 7.9. His chemistry panel reveals BUN elevated to 35 and creatinine elevated to 2.5. 5. His Urine Analysis is consistent with a UTI. 6. The CT of the brain done on 05/28/18 revealed "chronic and age-related changes. Negative for acute intracranial bleed or mass effect." 7. The patient's history and neurological examination are most compatible with an encephalopathy superimposed and underlying dementia. 8. His behavioral problems are most probably related to an underlying psychiatric illness - most probably schizophrenia. 9. He is still encephalopathic. It is unclear as to what the exact etiology for the encephalopathy is. He does have renal dysfunction, and a UTI which could be contributing. Recommendations 1. Continue present management. 2. Increase activity as tolerated. 3. Appropriate treatment of infectious process. Anaid Caceres M.D., M.S.[facility]. ANAID CACERES May 30, 2018 12:34
[2018-05-30 15:55] VITALS: BP 110/83
--- NOTE | 2018-05-30 16:39 | Nephrology Progress Note ---
Assessment/Plan Assessment 1.HAMZAH 2.CKD 3.HTN Plan Plan continue current iv monitoring renal function avoid NSAID replace electrolyte as need it Subjective ROS Limited/Unobtainable: Yes Subjective awake confused Objective Objective Last 24 Hour Vital Signs Date Time Temp Pulse Resp B/P (MAP) Pulse Ox O2 Delivery O2 Flow Rate FiO2 05/30/18 15:55 98.3 103 21 110/83 (92) 100 98.3 05/30/18 11:47 96.8 88 21 97/84 (88) 100 96.8 05/30/18 09:00 Room Air 05/30/18 08:08 96 108/82 05/30/18 07:56 98.0 96 21 108/82 (91) 96 98.0 05/30/18 04:00 97.3 78 18 108/77 (87) 98 97.3 05/30/18 00:00 97.5 83 17 130/98 (109) 96 97.5 05/29/18 21:00 Room Air 05/29/18 20:45 64 101/55 05/29/18 20:00 98.1 73 18 105/73 (84) 97 98.1 Intake and Output 05/29/18 05/30/18 19:00 07:00 Intake Total 500 ml 480 ml Output Total 200 ml Balance 500 ml 280 ml Intake Oral 500 ml 480 ml Output Urine Total 200 ml # Voids 2 2 Height (Feet): 5 Height (Inches): 7.00 Weight (Pounds): 139 Objective HEENT: Extraocular muscle intact. No lymphadenopathy noted. CARDIOVASCULAR: S1 and S2. No rubs or gallops. PULMONARY: Clear to auscultation bilaterally. No rales, rhonchi or wheezes. ABDOMEN: Nondistended and nontender. EXTREMITIES: No edema noted. Pamela Davila MD May 30, 2018 16:39
[2018-05-30] MEDS: LORazepam Inj 2mg/ml 1ml IM PRN ×2 (17:50→22:45)
[2018-05-30 20:00] VITALS: BP 108/80
[2018-05-30] MEDS: Tamsulosin 0.4mg cap ORAL SCH (20:37)
[2018-05-31 04:00] VITALS: BP 117/93
[2018-05-31 08:00] VITALS: BP 116/78
--- NOTE | 2018-05-31 08:53 | General Progress Note ---
Assessment/Plan Problem List: (1) CKD (chronic kidney disease) ICD Codes: N18.9 - CKD (chronic kidney disease) SNOMED: 442740027 (2) Confusion ICD Codes: R41.0 - Disorientation, unspecified SNOMED: 801298184 (3) UTI (urinary tract infection) ICD Codes: N39.0 - Urinary tract infection, site not specified SNOMED: 29657175 (4) Weakness ICD Codes: R53.1 - Weakness SNOMED: 85478571 Status: unchanged Assessment/Plan ot pt diet abx psyc tx cbc bmp am psyc transfer vs dc plan snf Subjective Constitutional: Reports: weakness Allergies: Coded Allergies: NO KNOWN ALLERGIES (Verified Allergy, Unknown, 05/05/18) All Systems: reviewed and negative except above Subjective confused agitated Objective Last 24 Hour Vital Signs Date Time Temp Pulse Resp B/P (MAP) Pulse Ox O2 Delivery O2 Flow Rate FiO2 05/31/18 08:00 97.8 98 20 116/78 (91) 98 97.8 05/31/18 04:00 98.2 101 21 117/93 (101) 95 98.2 05/30/18 20:54 Room Air 05/30/18 20:38 99 115/84 05/30/18 20:00 98.2 97 20 108/80 (89) 98 98.2 05/30/18 15:55 98.3 103 21 110/83 (92) 100 98.3 05/30/18 11:47 96.8 88 21 97/84 (88) 100 96.8 05/30/18 09:00 Room Air Intake and Output 05/30/18 05/31/18 19:00 07:00 Intake Total 600 ml 420 ml Balance 600 ml 420 ml Intake Oral 600 ml 420 ml # Voids 3 # Bowel Movements 1 Height (Feet): 5 Height (Inches): 7.00 Weight (Pounds): 139 General Appearance: confused EENT: normal ENT inspection Neck: normal alignment Cardiovascular: normal peripheral pulses, normal rate, regular rhythm Respiratory/Chest: chest wall non-tender, lungs clear, normal breath sounds Abdomen: normal bowel sounds, non tender, soft Extremities: normal inspection Edema: no edema noted Arm (L), no edema noted Arm (R), no edema noted Leg (L), no edema noted Leg (R), no edema noted Pedal (L), no edema noted Pedal (R), no edema noted Generalized Neurologic: motor weakness Skin: normal pigmentation, warm/dry Jaleel Moon DO May 31, 2018 08:53
[2018-05-31] MEDS: Metoprolol 25mg tab ORAL SCH ×3 (09:23→21:36)
[2018-05-31] MEDS: LORazepam Inj 2mg/ml 1ml IM PRN (09:46)
--- NOTE | 2018-05-31 11:43 | Neurology Progress Note ---
Interim History Interim History Interim History Mr. Roth is awake and alert. His is visiting him today. She tells me he has had cognitive problems for > 9 years. These problems have worsened recently. He is again having visual hallucinations. He continues to be aphasic. He continues to be cognitively impoverished. He feels stronger. He denies any new neurologic problems. Review of Systems Neuro Review of Systems Benign. Objective Physical Exam Last Vital Signs Date Time Temp Pulse Resp B/P (MAP) Pulse Ox O2 Delivery O2 Flow Rate FiO2 05/31/18 10:25 98 116/78 05/31/18 09:00 Room Air 05/31/18 08:00 97.8 20 98 97.8 Neurologic Exam Objective PHYSICAL EXAMINATION: GENERAL: He is a well-developed relatively well-nourished black gentleman, lying in bed, in no acute distress. HEAD: Normocephalic and atraumatic. EENT: Examination benign. NECK: No neck rigidity was observed. NEUROLOGICAL EXAMINATION: MENTAL STATUS EXAMINATION: He was awake and alert. He was oriented to self only. He had no idea as to where he was or what the date was. He was unable to cooperate for further mental status testing. SPEECH: He had a mild dysarthria. LANGUAGE: He had an aphasia with significant problems expressing himself and less significant problems understanding commands. CRANIAL NERVE EXAMINATION: II: He did not cooperate for confrontation testing. He, however, was able to blink to threat. III, IV & : The external ocular movements were present on oculocephalic maneuvers. The pupils were 3 mm in diameter and reactive sluggishly to light. V & VII: The corneal reflexes were equal bilaterally. He had no facial asymmetry. VIII: He seemed to be able to hear well and had no nystagmus. IX: The palate moved symmetrically on phonation. X: He had no hoarseness of voice. XI: The sternocleidomastoids and trapezii functioned normally. XII: The tongue was in the midline without any fasciculations or atrophy. MOTOR SYSTEM: The tone was increased in all four extremities with gegenhalten. Examination of muscle mass revealed no focal wasting. Examination of power was impossible to perform on individual muscle groups, however, he moved all four extremities relatively well and had excellent hand manager surgical bilaterally. SENSORY EXAMINATION: He responded appropriately to painful stimuli. He did not cooperate for the sensory modalities. REFLEXES: Trace positive and bilaterally symmetrical at the biceps, triceps, brachioradialis, and knees, 0 at both ankles. The plantar responses were flexor bilaterally. COORDINATION, STANCE & GAIT: Could not be tested. Impression/Recommendations Diagnostic Impression 1. Mr. Arcadio Roth is a 67-year-old, right-handed, black gentleman, with a past history of hypertension, cerebrovascular disease with prior stroke, the exact details of which are unavailable to us, dementia, psychiatric illness and prostate cancer, who is institutionalized in a skilled nursing. He was hospitalized on 05/26/18 for a change in his mental state. The exact details of this change is unknown to us. 2. He feels well. His is visiting him today. She tells me he has had cognitive problems for > 9 years. These problems have worsened recently. He is again having visual hallucinations. He continues to be aphasic. He continues to be cognitively impoverished. He feels stronger. He denies any new neurologic problems. 3. On neurological examination, at this time, he is awake and alert. He is oriented to self only, has problems with recent and remote memory, has a significant aphasia with an expressive greater than receptive component, is unable to give a good effort on testing motor power, but has excellent hand manager surgical and moves all extremities quite well, has globally diminished deep tendon reflexes and is unable to cooperate for testing of coordination, stance and gait. 4. Laboratory data obtained thus far revealed that he is mildly anemic with hemoglobin of 12.8, but his WBC count was normal at 7.9. His chemistry panel reveals BUN elevated to 35 and creatinine elevated to 2.5. 5. His Urine Analysis is consistent with a UTI. 6. The CT of the brain done on 05/28/18 revealed "chronic and age-related changes. Negative for acute intracranial bleed or mass effect." 7. The patient's history and neurological examination are most compatible with an encephalopathy superimposed and underlying dementia. 8. His behavioral problems are most probably related to an underlying psychiatric illness - most probably schizophrenia. 9. He is still encephalopathic. It is unclear as to what the exact etiology for the encephalopathy is. He does have renal dysfunction, and a UTI which could be contributing. Recommendations 1. Continue present management. 2. Increase activity as tolerated. 3. Appropriate treatment of infectious process. Anaid Caceres M.D., M.S[facility] ANAID CACERES May 31, 2018 11:43
[2018-05-31 12:00] VITALS: BP 114/71
--- NOTE | 2018-05-31 14:12 | Pulmonology Progress Note ---
Assessment/Plan Problems: (1) Acute encephalopathy (2) Paranoia (3) Prostate cancer (4) CKD (chronic kidney disease) (5) Hepatitis C (6) Dementia (7) Methadone maintenance therapy patient Assessment/Plan comfortable, sitter at the bed site doing better less agitated symptomatic treatment check electrolytes pain management dvt prophylaxis d/w Subjective ROS Limited/Unobtainable: No Constitutional: Reports: no symptoms HEENT: Repors: no symptoms Respiratory: Reports: no symptoms Allergies: Coded Allergies: NO KNOWN ALLERGIES (Verified Allergy, Unknown, 05/05/18) Objective Last 24 Hour Vital Signs Date Time Temp Pulse Resp B/P (MAP) Pulse Ox O2 Delivery O2 Flow Rate FiO2 05/31/18 12:00 77 20 114/71 (85) 96 05/31/18 10:25 98 116/78 05/31/18 09:00 Room Air 05/31/18 08:00 97.8 98 20 116/78 (91) 98 97.8 05/31/18 04:00 98.2 101 21 117/93 (101) 95 98.2 05/30/18 20:54 Room Air 05/30/18 20:38 99 115/84 05/30/18 20:00 98.2 97 20 108/80 (89) 98 98.2 05/30/18 15:55 98.3 103 21 110/83 (92) 100 98.3 Intake and Output 05/30/18 05/31/18 19:00 07:00 Intake Total 600 ml 420 ml Balance 600 ml 420 ml Intake Oral 600 ml 420 ml # Voids 3 # Bowel Movements 1 Objective General Appearance: cachectic HEENT: normocephalic, atraumatic Respiratory/Chest: chest wall non-tender, lungs clear Breasts: no masses Cardiovascular: normal peripheral pulses, no gallop/murmur Abdomen: no organomegaly, no mass Genitourinary: normal external genitalia Extremities: no clubbing Current Medications Medications (Trade) Dose Ordered Sig/Lucie Route PRN Reason Start Time Stop Time Status Last Admin Dose Admin Acetaminophen (Tylenol) 650 mg Q4H PRN ORAL fever 05/26/18 14:45 06/25/18 14:44 Al Hydroxide/Mg Hydroxide (Mylanta II) 30 ml Q6H PRN ORAL dyspepsia 05/26/18 14:45 06/25/18 14:44 Dextrose (Dextrose 50%) STAT PRN IV Hypoglycemia 05/26/18 14:45 06/25/18 14:44 Lorazepam (Ativan 2mg/ml 1ml) 2 mg Q4H PRN IM For Anxiety 05/26/18 17:00 06/02/18 16:59 05/31/18 09:46 Metoprolol Tartrate (Lopressor) 25 mg Q12HR ORAL 05/26/18 21:00 06/25/18 20:59 05/31/18 10:25 Mirtazapine (Remeron) 15 mg BEDTIME ORAL 05/26/18 21:00 06/25/18 20:59 05/30/18 20:37 Morphine Sulfate (Morphine Sulfate) 1 mg EVERY 4 HOURS PRN IVP For Pain 05/26/18 14:45 06/02/18 14:44 05/27/18 11:26 Ondansetron HCl (Zofran) 4 mg Q6H PRN IVP Nausea & Vomiting 05/26/18 14:45 06/25/18 14:44 Polyethylene Glycol (Miralax) 17 gm HSPRN PRN ORAL Constipation 05/26/18 14:45 06/25/18 14:44 Quetiapine Fumarate (SEROquel) 50 mg Q8HR ORAL 05/26/18 22:00 06/25/18 21:59 05/31/18 05:47 Risperidone (RisperDAL) 1 mg BID ORAL 05/27/18 18:00 06/26/18 17:59 05/31/18 10:26 Tamsulosin HCl (Flomax) 0.4 mg BEDTIME ORAL 05/26/18 21:00 06/25/18 20:59 05/30/18 20:37 Zolpidem Tartrate (Ambien) 5 mg HSPRN PRN ORAL Insomnia 05/26/18 14:45 06/02/18 14:44 German Mooney MD May 31, 2018 14:12
--- NOTE | 2018-05-31 15:51 | Nephrology Progress Note ---
Assessment/Plan Assessment 1.HAMZAH 2.CKD 3.HTN Plan Plan continue current iv monitoring renal function avoid NSAID replace electrolyte as need it Subjective Constitutional: Reports: no symptoms HEENT: Reports: no symptoms Genitourinary: Reports: no symptoms Neurologic/Psychiatric: Reports: no symptoms Subjective awake confused Objective Objective Last 24 Hour Vital Signs Date Time Temp Pulse Resp B/P (MAP) Pulse Ox O2 Delivery O2 Flow Rate FiO2 05/31/18 12:00 77 20 114/71 (85) 96 05/31/18 10:25 98 116/78 05/31/18 09:00 Room Air 05/31/18 08:00 97.8 98 20 116/78 (91) 98 97.8 05/31/18 04:00 98.2 101 21 117/93 (101) 95 98.2 05/30/18 20:54 Room Air 05/30/18 20:38 99 115/84 05/30/18 20:00 98.2 97 20 108/80 (89) 98 98.2 05/30/18 15:55 98.3 103 21 110/83 (92) 100 98.3 Intake and Output 05/30/18 05/31/18 19:00 07:00 Intake Total 600 ml 420 ml Balance 600 ml 420 ml Intake Oral 600 ml 420 ml # Voids 3 # Bowel Movements 1 Height (Feet): 5 Height (Inches): 7.00 Weight (Pounds): 139 Objective HEENT: Extraocular muscle intact. No lymphadenopathy noted. CARDIOVASCULAR: S1 and S2. No rubs or gallops. PULMONARY: Clear to auscultation bilaterally. No rales, rhonchi or wheezes. ABDOMEN: Nondistended and nontender. EXTREMITIES: No edema noted. Pamela Davila MD May 31, 2018 15:51
[2018-05-31 16:00] VITALS: BP 118/82
[2018-05-31 20:00] VITALS: BP 117/66
[2018-05-31] MEDS: Tamsulosin 0.4mg cap ORAL SCH (21:31)
[2018-06-01] VITALS: BP 127/91
[2018-06-01 04:00] VITALS: BP 96/63
[2018-06-01 07:26] LABS: BASOPHILS % (AUTO) 0.9 % (0.0-2.0); EOSINOPHILS % (AUTO) 1.6 % (0.0-3.0); HEMATOCRIT 43.8 % (42.0-52.0); HEMOGLOBIN 14.5 G/DL (14.2-18.0); LYMPHOCYTES % (AUTO) 51.8 % (20.0-45.0); MEAN CORPUSCULAR VOLUME 92 FL (80-99); NEUTROPHILS % (AUTO) 39.7 % (45.0-75.0); PLATELET COUNT 230 K/UL (150-450); RED BLOOD COUNT 4.77 M/UL (4.70-6.10); RED CELL DISTRIBUTION WIDTH 12.9 % (11.6-14.8); WHITE BLOOD COUNT 7.7 K/UL (4.8-10.8)
--- NOTE | 2018-06-01 07:35 | Consultation ---
History of Present Illness General Date patient seen: Jun 01, 2018 Present Illness Allergies: Coded Allergies: NO KNOWN ALLERGIES (Verified Allergy, Unknown, 05/05/18) Medication History Scheduled Ampicillin (Ampicillin Trihydrate), 500 MG ORAL Q6HR, (Reported) Aspirin (Ann Chewable), 81 MG PO DAILY, (Reported) Lorazepam* (Ativan*), 1 MG ORAL BEDTIME, (Reported) Metoprolol Tartrate (Metoprolol Tartrate), 25 MG ORAL Q12HR Mirtazapine* (Remeron*), 15 MG ORAL BEDTIME, (Reported) Quetiapine Fumarate (Seroquel), 12.5 MG ORAL THREE TIMES A DAY, (Reported) Quetiapine Fumarate* (Seroquel*), 50 MG ORAL Q8HR Tamsulosin HCl (Flomax), 0.4 MG ORAL BEDTIME Scheduled PRN Chlorpromazine (Chlorpromazine HCl), 25 MG PO Q6HR PRN for Agitation, (Reported) Haloperidol* (Haldol*), 5 MG ORAL EVERY 4 HOURS PRN for Agitation, (Reported) Phenazopyridine Hcl* (Pyridium*), 100 MG ORAL DAILY PRN for Per rx protocol, ( Reported) Miscellaneous Medications Unable to Obtain Medications (Unable To Obtain Meds), (Reported) Patient History Healthcare decision maker AGUSTO GUTIÉRREZ Resuscitation status Advanced Directive on File Yes Physical Exam Last 24 Hour Vital Signs Date Time Temp Pulse Resp B/P (MAP) Pulse Ox O2 Delivery O2 Flow Rate FiO2 06/01/18 04:00 98.1 72 19 96/63 (74) 94 98.1 06/01/18 00:00 98.1 89 18 127/91 (103) 94 98.1 05/31/18 21:36 79 117/66 05/31/18 21:00 Room Air 05/31/18 20:00 97.1 79 20 117/66 (83) 99 97.1 05/31/18 16:00 97.6 88 22 118/82 (94) 98 97.6 05/31/18 12:00 77 20 114/71 (85) 96 05/31/18 10:25 98 116/78 05/31/18 09:00 Room Air 05/31/18 08:00 97.8 98 20 116/78 (91) 98 97.8 Intake and Output 05/31/18 06/01/18 19:00 07:00 Intake Total 480 ml 360 ml Balance 480 ml 360 ml Intake Oral 480 ml 360 ml # Voids 3 2 # Bowel Movements 2 Laboratory Tests Test 06/01/18 06:00 White Blood Count 7.7 K/UL (4.8-10.8) Red Blood Count 4.77 M/UL (4.70-6.10) Hemoglobin 14.5 G/DL (14.2-18.0) Hematocrit 43.8 % (42.0-52.0) Mean Corpuscular Volume 92 FL (80-99) Mean Corpuscular Hemoglobin 30.3 PG (27.0-31.0) Mean Corpuscular Hemoglobin Concent 33.1 G/DL (32.0-36.0) Red Cell Distribution Width 12.9 % (11.6-14.8) Platelet Count 230 K/UL (150-450) Mean Platelet Volume 6.5 FL (6.5-10.1) Neutrophils (%) (Auto) 39.7 % (45.0-75.0) L Lymphocytes (%) (Auto) 51.8 % (20.0-45.0) H Monocytes (%) (Auto) 6.0 % (1.0-10.0) Eosinophils (%) (Auto) 1.6 % (0.0-3.0) Basophils (%) (Auto) 0.9 % (0.0-2.0) Sodium Level Pending Potassium Level Pending Chloride Level Pending Carbon Dioxide Level Pending Blood Urea Nitrogen Pending Creatinine Pending Estimat Glomerular Filtration Rate Pending Glucose Level Pending Calcium Level Pending Height (Feet): 5 Height (Inches): 7.00 Weight (Pounds): 139 Medications Current Medications Medications (Trade) Dose Ordered Sig/Lucie Route PRN Reason Start Time Stop Time Status Last Admin Dose Admin Acetaminophen (Tylenol) 650 mg Q4H PRN ORAL fever 05/26/18 14:45 06/25/18 14:44 Al Hydroxide/Mg Hydroxide (Mylanta II) 30 ml Q6H PRN ORAL dyspepsia 05/26/18 14:45 06/25/18 14:44 Dextrose (Dextrose 50%) STAT PRN IV Hypoglycemia 05/26/18 14:45 06/25/18 14:44 Lorazepam (Ativan 2mg/ml 1ml) 2 mg Q4H PRN IM For Anxiety 05/26/18 17:00 06/02/18 16:59 05/31/18 09:46 Metoprolol Tartrate (Lopressor) 25 mg Q12HR ORAL 05/26/18 21:00 06/25/18 20:59 05/31/18 21:36 Mirtazapine (Remeron) 15 mg BEDTIME ORAL 05/26/18 21:00 06/25/18 20:59 05/31/18 21:31 Morphine Sulfate (Morphine Sulfate) 1 mg EVERY 4 HOURS PRN IVP For Pain 05/26/18 14:45 06/02/18 14:44 05/27/18 11:26 Ondansetron HCl (Zofran) 4 mg Q6H PRN IVP Nausea & Vomiting 05/26/18 14:45 06/25/18 14:44 Polyethylene Glycol (Miralax) 17 gm HSPRN PRN ORAL Constipation 05/26/18 14:45 06/25/18 14:44 Quetiapine Fumarate (SEROquel) 50 mg Q8HR ORAL 05/26/18 22:00 06/25/18 21:59 06/01/18 06:24 Risperidone (RisperDAL) 1 mg BID ORAL 05/27/18 18:00 06/26/18 17:59 05/31/18 18:34 Tamsulosin HCl (Flomax) 0.4 mg BEDTIME ORAL 05/26/18 21:00 06/25/18 20:59 05/31/18 21:31 Zolpidem Tartrate (Ambien) 5 mg HSPRN PRN ORAL Insomnia 05/26/18 14:45 06/02/18 14:44 Assessment/Plan Assessment/Plan (1) Thalamic pain syndrome (2) H/o CVA (3) Encephalopathy (4) Dementia (5) Schizophrenia seen dictated Natalio Patterson Jun 01, 2018 07:35
[2018-06-01 07:45] VITALS: BP 132/72
[2018-06-01 07:45] LABS: ANION GAP 10 mmol/L (5-15); BLOOD UREA NITROGEN 22 mg/dL (7-18); CALCIUM 9.2 MG/DL (8.5-10.1); CARBON DIOXIDE 24 MMOL/L (21-32); CHLORIDE 107 MMOL/L (98-107); CREATININE 1.7 MG/DL (0.55-1.30); POTASSIUM 4.3 MMOL/L (3.5-5.1); SODIUM 141 MMOL/L (136-145)
[2018-06-01] MEDS ORDERED: Norco 5mg/325mg tab ORAL PRN ×2 (08:00)
--- NOTE | 2018-06-01 08:45 | Nephrology Progress Note ---
Assessment/Plan Assessment/Plan Was asked to assume Primary care responsibilities today and going forth A/P 1) CKD 4- Cr 1.7. defer to his Solar Process Engineer 2) Acute Encephalopathy- Per PSY and Neuro - await DC to appropriate facility 3) HTN- stable 4) DVT Prophylax- SCDs Subjective Date patient seen: Jun 01, 2018 Time patient seen: 08:42 ROS Limited/Unobtainable: No Allergies: Coded Allergies: NO KNOWN ALLERGIES (Verified Allergy, Unknown, 05/05/18) All Systems: reviewed and negative except above Subjective Patient less confused and agitated Objective Last 24 Hour Vital Signs Date Time Temp Pulse Resp B/P (MAP) Pulse Ox O2 Delivery O2 Flow Rate FiO2 06/01/18 07:45 97.2 101 18 132/72 (92) 97 97.2 06/01/18 04:00 98.1 72 19 96/63 (74) 94 98.1 06/01/18 00:00 98.1 89 18 127/91 (103) 94 98.1 05/31/18 21:36 79 117/66 05/31/18 21:00 Room Air 05/31/18 20:00 97.1 79 20 117/66 (83) 99 97.1 05/31/18 16:00 97.6 88 22 118/82 (94) 98 97.6 05/31/18 12:00 77 20 114/71 (85) 96 05/31/18 10:25 98 116/78 05/31/18 09:00 Room Air Intake and Output 05/31/18 06/01/18 19:00 07:00 Intake Total 480 ml 360 ml Balance 480 ml 360 ml Intake Oral 480 ml 360 ml # Voids 3 2 # Bowel Movements 2 Laboratory Tests 06/01/18 06:00: White Blood Count 7.7, Red Blood Count 4.77, Hemoglobin 14.5, Hematocrit 43.8, Mean Corpuscular Volume 92, Mean Corpuscular Hemoglobin 30.3, Mean Corpuscular Hemoglobin Concent 33.1, Red Cell Distribution Width 12.9, Platelet Count 230, Mean Platelet Volume 6.5, Neutrophils (%) (Auto) 39.7L, Lymphocytes (%) (Auto) 51.8H, Monocytes (%) (Auto) 6.0, Eosinophils (%) (Auto) 1.6, Basophils (%) (Auto ) 0.9, Sodium Level 141, Potassium Level 4.3, Chloride Level 107, Carbon Dioxide Level 24, Anion Gap 10, Blood Urea Nitrogen 22H, Creatinine 1.7H, Estimat Glomerular Filtration Rate 48.8, Glucose Level 85, Calcium Level 9.2 Height (Feet): 5 Height (Inches): 7.00 Weight (Pounds): 139 General Appearance: WD/WN, agitated EENT: PERRL/EOMI Neck: normal alignment, supple Cardiovascular: normal rate, regular rhythm Respiratory/Chest: lungs clear, normal breath sounds Abdomen: non tender, soft Edema: no edema noted Arm (L), no edema noted Arm (R), no edema noted Leg (L), no edema noted Leg (R), no edema noted Pedal (L), no edema noted Pedal (R), no edema noted Generalized Kamar Rangel M.D. Jun 01, 2018 08:45
[2018-06-01] MEDS: Metoprolol 25mg tab ORAL SCH ×2 (10:00→20:28)
--- NOTE | 2018-06-01 10:42 | Consultation ---
History of Present Illness General Date patient seen: Jun 01, 2018 Chief Complaint: Altered Level of Consciousness Reason for Consultation: UTI Present Illness HPI Mr. Sanz is a 67 yo male who was sent to the ED from [facility] for two-days of increasing confusion, weakness and aggressive behavior toward staff. He was alert and oriented only to name at the time. He has been agitated trough out his hospitalization. He was found to have an ESBL E.coli UTI but has not been on antibiotics. He reports today that he is fine. Agitated on exam. A/O to name only. PMHx #Prostate CA #Drug abuse #Hep C #Psychosis #Dementia #Weakness #CKD #Hypertension PSHx Unable to obtain due to dementia SocHx Positive smoking. Occasional alcohol. No intravenous drug abuse. FamHx Unable to obtain due to dementia Allergies: Coded Allergies: NO KNOWN ALLERGIES (Verified Allergy, Unknown, 05/05/18) Medication History Scheduled Ampicillin (Ampicillin Trihydrate), 500 MG ORAL Q6HR, (Reported) Aspirin (Ann Chewable), 81 MG PO DAILY, (Reported) Lorazepam* (Ativan*), 1 MG ORAL BEDTIME, (Reported) Metoprolol Tartrate (Metoprolol Tartrate), 25 MG ORAL Q12HR Mirtazapine* (Remeron*), 15 MG ORAL BEDTIME, (Reported) Quetiapine Fumarate (Seroquel), 12.5 MG ORAL THREE TIMES A DAY, (Reported) Quetiapine Fumarate* (Seroquel*), 50 MG ORAL Q8HR Tamsulosin HCl (Flomax), 0.4 MG ORAL BEDTIME Scheduled PRN Chlorpromazine (Chlorpromazine HCl), 25 MG PO Q6HR PRN for Agitation, (Reported) Haloperidol* (Haldol*), 5 MG ORAL EVERY 4 HOURS PRN for Agitation, (Reported) Phenazopyridine Hcl* (Pyridium*), 100 MG ORAL DAILY PRN for Per rx protocol, ( Reported) Miscellaneous Medications Unable to Obtain Medications (Unable To Obtain Meds), (Reported) Patient History Healthcare decision maker AGUSTO GUTIÉRREZ Resuscitation status Advanced Directive on File Yes Review of Systems ROS Narrative Unable to fully obtain due to dementia and agitation. Physical Exam Last 24 Hour Vital Signs Date Time Temp Pulse Resp B/P (MAP) Pulse Ox O2 Delivery O2 Flow Rate FiO2 06/01/18 10:00 101 132/72 06/01/18 07:45 97.2 101 18 132/72 (92) 97 97.2 06/01/18 04:00 98.1 72 19 96/63 (74) 94 98.1 06/01/18 00:00 98.1 89 18 127/91 (103) 94 98.1 05/31/18 21:36 79 117/66 05/31/18 21:00 Room Air 05/31/18 20:00 97.1 79 20 117/66 (83) 99 97.1 05/31/18 16:00 97.6 88 22 118/82 (94) 98 97.6 05/31/18 12:00 77 20 114/71 (85) 96 Intake and Output 05/31/18 06/01/18 19:00 07:00 Intake Total 480 ml 360 ml Balance 480 ml 360 ml Intake Oral 480 ml 360 ml # Voids 3 2 # Bowel Movements 2 Laboratory Tests Test 06/01/18 06:00 White Blood Count 7.7 K/UL (4.8-10.8) Red Blood Count 4.77 M/UL (4.70-6.10) Hemoglobin 14.5 G/DL (14.2-18.0) Hematocrit 43.8 % (42.0-52.0) Mean Corpuscular Volume 92 FL (80-99) Mean Corpuscular Hemoglobin 30.3 PG (27.0-31.0) Mean Corpuscular Hemoglobin Concent 33.1 G/DL (32.0-36.0) Red Cell Distribution Width 12.9 % (11.6-14.8) Platelet Count 230 K/UL (150-450) Mean Platelet Volume 6.5 FL (6.5-10.1) Neutrophils (%) (Auto) 39.7 % (45.0-75.0) L Lymphocytes (%) (Auto) 51.8 % (20.0-45.0) H Monocytes (%) (Auto) 6.0 % (1.0-10.0) Eosinophils (%) (Auto) 1.6 % (0.0-3.0) Basophils (%) (Auto) 0.9 % (0.0-2.0) Sodium Level 141 MMOL/L (136-145) Potassium Level 4.3 MMOL/L (3.5-5.1) Chloride Level 107 MMOL/L (98-107) Carbon Dioxide Level 24 MMOL/L (21-32) Anion Gap 10 mmol/L (5-15) Blood Urea Nitrogen 22 mg/dL (7-18) H Creatinine 1.7 MG/DL (0.55-1.30) H Estimat Glomerular Filtration Rate 48.8 mL/min (>60) Glucose Level 85 MG/DL (74-106) Calcium Level 9.2 MG/DL (8.5-10.1) Height (Feet): 5 Height (Inches): 7.00 Weight (Pounds): 139 Medications Current Medications Medications (Trade) Dose Ordered Sig/Lucie Route PRN Reason Start Time Stop Time Status Last Admin Dose Admin Acetaminophen (Tylenol) 650 mg Q4H PRN ORAL fever 05/26/18 14:45 06/25/18 14:44 Acetaminophen/ Hydrocodone Bitart ([place] 5/325) 1 tab Q4H PRN ORAL PAIN 4-10 06/01/18 08:00 06/08/18 07:59 Al Hydroxide/Mg Hydroxide (Mylanta II) 30 ml Q6H PRN ORAL dyspepsia 05/26/18 14:45 06/25/18 14:44 Dextrose (Dextrose 50%) STAT PRN IV Hypoglycemia 05/26/18 14:45 06/25/18 14:44 Lorazepam (Ativan 2mg/ml 1ml) 2 mg Q4H PRN IM For Anxiety 05/26/18 17:00 06/02/18 16:59 05/31/18 09:46 Metoprolol Tartrate (Lopressor) 25 mg Q12HR ORAL 05/26/18 21:00 06/25/18 20:59 06/01/18 10:00 Mirtazapine (Remeron) 15 mg BEDTIME ORAL 05/26/18 21:00 06/25/18 20:59 05/31/18 21:31 Ondansetron HCl (Zofran) 4 mg Q6H PRN IVP Nausea & Vomiting 05/26/18 14:45 06/25/18 14:44 Polyethylene Glycol (Miralax) 17 gm HSPRN PRN ORAL Constipation 8/7/18 14:45 06/25/18 14:44 Quetiapine Fumarate (SEROquel) 50 mg Q8HR ORAL 05/26/18 22:00 06/25/18 21:59 06/01/18 06:24 Risperidone (RisperDAL) 1 mg BID ORAL 05/27/18 18:00 06/26/18 17:59 06/01/18 10:00 Tamsulosin HCl (Flomax) 0.4 mg BEDTIME ORAL 05/26/18 21:00 06/25/18 20:59 05/31/18 21:31 Zolpidem Tartrate (Ambien) 5 mg HSPRN PRN ORAL Insomnia 05/26/18 14:45 06/02/18 14:44 Objective Narrative Gen: Agitated, A/O to name HEENT: NCAT, MMM, EOMI, PERRL, No Oral lesion, no scleral icterus, Poor dentition LUNGS: CTAB, No W/C, No Accessory muscle use CARDS: RRR, S1, S2, No M/R/G, ABD: Soft, obese, NT, ND, No R/G, + BS Ext: C/C/E, Pulses 2+ B/L (DP, Rad), No joint pain or erythema, Onychomycosis of the toes B/L NEURO: A/O x to name. Strength and sensation grossly intact SKIN: warm/dry, No rashes Assessment/Plan Assessment/Plan 67 yo male who was sent to the ED from [facility] for two -days of increasing confusion, weakness and aggressive behavior toward staff. He was found to have an ESBL E.coli UTI but has not been on antibiotics. # UTI - ESBL E.coli - May be contributing to current chincap behavior - Urine Cx 05/27/18 - ESBL E.coli R Cefepime - Sen Bactrim and Erta #Onychomycosis #Prostate CA #Drug abuse #Hep C - LFTs WNL #Psychosis #Dementia #Weakness #CKD #Hypertension PLAN: - Start Ertapenem #10/26 for ESBL UTI - Monitor CBC and Temps - Supportive care Thank you for consulting us for the care of this patient. We will continue to follow with you. Damon Bonner M.D. Jun 01, 2018 10:42
--- NOTE | 2018-06-01 11:37 | Neurology Progress Note ---
Interim History Interim History Interim History Mr. Roth feels better. He is awake and alert. His is with him. He continues to have visual hallucinations. He continues to be aphasic. He continues to be cognitively impoverished. He feels stronger. He denies any new neurologic problems. Review of Systems Neuro Review of Systems Benign. Objective Physical Exam Last Vital Signs Date Time Temp Pulse Resp B/P (MAP) Pulse Ox O2 Delivery O2 Flow Rate FiO2 06/01/18 10:00 101 132/72 06/01/18 09:00 Room Air 06/01/18 07:45 97.2 18 97 97.2 Laboratory Tests Test 06/01/18 06:00 White Blood Count 7.7 K/UL (4.8-10.8) Red Blood Count 4.77 M/UL (4.70-6.10) Hemoglobin 14.5 G/DL (14.2-18.0) Hematocrit 43.8 % (42.0-52.0) Mean Corpuscular Volume 92 FL (80-99) Mean Corpuscular Hemoglobin 30.3 PG (27.0-31.0) Mean Corpuscular Hemoglobin Concent 33.1 G/DL (32.0-36.0) Red Cell Distribution Width 12.9 % (11.6-14.8) Platelet Count 230 K/UL (150-450) Mean Platelet Volume 6.5 FL (6.5-10.1) Neutrophils (%) (Auto) 39.7 % (45.0-75.0) L Lymphocytes (%) (Auto) 51.8 % (20.0-45.0) H Monocytes (%) (Auto) 6.0 % (1.0-10.0) Eosinophils (%) (Auto) 1.6 % (0.0-3.0) Basophils (%) (Auto) 0.9 % (0.0-2.0) Sodium Level 141 MMOL/L (136-145) Potassium Level 4.3 MMOL/L (3.5-5.1) Chloride Level 107 MMOL/L (98-107) Carbon Dioxide Level 24 MMOL/L (21-32) Anion Gap 10 mmol/L (5-15) Blood Urea Nitrogen 22 mg/dL (7-18) H Creatinine 1.7 MG/DL (0.55-1.30) H Estimat Glomerular Filtration Rate 48.8 mL/min (>60) Glucose Level 85 MG/DL (74-106) Calcium Level 9.2 MG/DL (8.5-10.1) Neurologic Exam Objective PHYSICAL EXAMINATION: GENERAL: He is a well-developed relatively well-nourished black gentleman, lying in bed, in no acute distress. HEAD: Normocephalic and atraumatic. EENT: Examination benign. NECK: No neck rigidity was observed. NEUROLOGICAL EXAMINATION: MENTAL STATUS EXAMINATION: He was awake and alert. He was oriented to self only. He had no idea as to where he was or what the date was. He was unable to cooperate for further mental status testing. SPEECH: He had a mild dysarthria. LANGUAGE: He had an aphasia with significant problems expressing himself and less significant problems understanding commands. CRANIAL NERVE EXAMINATION: II: He did not cooperate for confrontation testing. He, however, was able to blink to threat. He counted fingers. III, IV & : The external ocular movements were present on oculocephalic maneuvers. The pupils were 3 mm in diameter and reactive sluggishly to light. V & VII: The corneal reflexes were equal bilaterally. He had no facial asymmetry. VIII: He seemed to be able to hear well and had no nystagmus. IX: The palate moved symmetrically on phonation. X: He had no hoarseness of voice. XI: The sternocleidomastoids and trapezii functioned normally. XII: The tongue was in the midline without any fasciculations or atrophy. MOTOR SYSTEM: The tone was increased in all four extremities with gegenhalten. Examination of muscle mass revealed no focal wasting. Examination of power was impossible to perform on individual muscle groups, however, he moved all four extremities relatively well and had excellent hand final rail cutter bilaterally. SENSORY EXAMINATION: He responded appropriately to painful stimuli. He did not cooperate for the sensory modalities. REFLEXES: Trace positive and bilaterally symmetrical at the biceps, triceps, brachioradialis, and knees, 0 at both ankles. The plantar responses were flexor bilaterally. COORDINATION, STANCE & GAIT: Could not be tested. Impression/Recommendations Diagnostic Impression 1. Mr. Arcadio Roth is a 67-year-old, right-handed, black gentleman, with a past history of hypertension, cerebrovascular disease with prior stroke, the exact details of which are unavailable to us, dementia, psychiatric illness and prostate cancer, who is institutionalized in a long term. He was hospitalized on 05/26/18 for a change in his mental state. The exact details of this change is unknown to us. 2. He feels better. He is awake and alert. His is with him. He continues to have visual hallucinations. He continues to be aphasic. He continues to be cognitively impoverished. He feels stronger. He denies any new neurologic problems. 3. On neurological examination, at this time, he is awake and alert. He is oriented to self only, has problems with recent and remote memory, has a significant aphasia with an expressive greater than receptive component, is unable to give a good effort on testing motor power, but has excellent hand final rail cutter and moves all extremities quite well, has globally diminished deep tendon reflexes and is unable to cooperate for testing of coordination, stance and gait. 4. Laboratory data obtained thus far revealed that he is mildly anemic with hemoglobin of 12.8, but his WBC count was normal at 7.9. His chemistry panel reveals BUN elevated to 35 and creatinine elevated to 2.5. 5. His Urine Analysis is consistent with a UTI. 6. The CT of the brain done on 05/28/18 revealed "chronic and age-related changes. Negative for acute intracranial bleed or mass effect." 7. The patient's history and neurological examination are most compatible with an encephalopathy superimposed and underlying dementia. 8. His behavioral problems are most probably related to an underlying psychiatric illness - most probably schizophrenia. 9. He is still encephalopathic. It is unclear as to what the exact etiology for the encephalopathy is. He does have renal dysfunction, and a UTI which could be contributing. Recommendations 1. Continue present management. 2. Increase activity as tolerated. 3. Appropriate treatment of infectious process. Anaid Caceres M.D., M.S.P.H. ANAID CACERES Jun 01, 2018 11:37
[2018-06-01] MEDS: LORazepam Inj 2mg/ml 1ml IM PRN (12:08)
[2018-06-01 12:36] VITALS: BP 113/75
--- NOTE | 2018-06-01 12:49 | General Progress Note ---
Assessment/Plan Problem List: (1) CKD (chronic kidney disease) ICD Codes: N18.9 - CKD (chronic kidney disease) SNOMED: 736968352 (2) Confusion ICD Codes: R41.0 - Disorientation, unspecified SNOMED: 762275455 (3) UTI (urinary tract infection) ICD Codes: N39.0 - Urinary tract infection, site not specified SNOMED: 59546488 (4) Weakness ICD Codes: R53.1 - Weakness SNOMED: 78157520 Assessment/Plan ot pt diet abx psyc tx cbc bmp am psyc transfer vs dc plan snf Subjective Constitutional: Reports: weakness Allergies: Coded Allergies: NO KNOWN ALLERGIES (Verified Allergy, Unknown, 05/05/18) All Systems: reviewed and negative except above Subjective confused sleepy Objective Last 24 Hour Vital Signs Date Time Temp Pulse Resp B/P (MAP) Pulse Ox O2 Delivery O2 Flow Rate FiO2 06/01/18 12:36 97.6 72 18 113/75 (88) 97 97.6 06/01/18 12:07 97.2 06/01/18 10:00 101 132/72 06/01/18 09:00 Room Air 06/01/18 07:45 97.2 101 18 132/72 (92) 97 97.2 06/01/18 04:00 98.1 72 19 96/63 (74) 94 98.1 06/01/18 00:00 98.1 89 18 127/91 (103) 94 98.1 05/31/18 21:36 79 117/66 05/31/18 21:00 Room Air 05/31/18 20:00 97.1 79 20 117/66 (83) 99 97.1 05/31/18 16:00 97.6 88 22 118/82 (94) 98 97.6 Intake and Output 05/31/18 06/01/18 19:00 07:00 Intake Total 480 ml 360 ml Balance 480 ml 360 ml Intake Oral 480 ml 360 ml # Voids 3 2 # Bowel Movements 2 Laboratory Tests 06/01/18 06:00: White Blood Count 7.7, Red Blood Count 4.77, Hemoglobin 14.5, Hematocrit 43.8, Mean Corpuscular Volume 92, Mean Corpuscular Hemoglobin 30.3, Mean Corpuscular Hemoglobin Concent 33.1, Red Cell Distribution Width 12.9, Platelet Count 230, Mean Platelet Volume 6.5, Neutrophils (%) (Auto) 39.7L, Lymphocytes (%) (Auto) 51.8H, Monocytes (%) (Auto) 6.0, Eosinophils (%) (Auto) 1.6, Basophils (%) (Auto ) 0.9, Sodium Level 141, Potassium Level 4.3, Chloride Level 107, Carbon Dioxide Level 24, Anion Gap 10, Blood Urea Nitrogen 22H, Creatinine 1.7H, Estimat Glomerular Filtration Rate 48.8, Glucose Level 85, Calcium Level 9.2 Height (Feet): 5 Height (Inches): 7.00 Weight (Pounds): 139 General Appearance: lethargic, confused EENT: normal ENT inspection Neck: normal alignment Cardiovascular: normal peripheral pulses, normal rate, regular rhythm Respiratory/Chest: chest wall non-tender, lungs clear, normal breath sounds Abdomen: normal bowel sounds, non tender, soft Extremities: normal inspection Edema: no edema noted Arm (L), no edema noted Arm (R), no edema noted Leg (L), no edema noted Leg (R), no edema noted Pedal (L), no edema noted Pedal (R), no edema noted Generalized Neurologic: motor weakness Skin: normal pigmentation, warm/dry Jaleel Moon DO Jun 01, 2018 12:49
[2018-06-01] MEDS ORDERED: Haloperidol 5mg/ml Inj IM PRN (13:00)
--- NOTE | 2018-06-01 15:00 | Pulmonology Progress Note ---
Assessment/Plan Problems: (1) Acute encephalopathy (2) Paranoia (3) Prostate cancer (4) CKD (chronic kidney disease) (5) Hepatitis C (6) Dementia (7) Methadone maintenance therapy patient Assessment/Plan all reviewedcomfortable, sitter at the bed site doing better less agitated symptomatic treatment check electrolytes pain management dvt prophylaxis d/w again extensively Subjective ROS Limited/Unobtainable: No Constitutional: Reports: no symptoms HEENT: Repors: no symptoms Respiratory: Reports: no symptoms Cardiovascular: Reports: no symptoms Allergies: Coded Allergies: NO KNOWN ALLERGIES (Verified Allergy, Unknown, 05/05/18) Objective Last 24 Hour Vital Signs Date Time Temp Pulse Resp B/P (MAP) Pulse Ox O2 Delivery O2 Flow Rate FiO2 06/01/18 13:06 97.6 06/01/18 12:36 97.6 72 18 113/75 (88) 97 97.6 06/01/18 12:07 97.2 06/01/18 10:00 101 132/72 06/01/18 09:00 Room Air 06/01/18 07:45 97.2 101 18 132/72 (92) 97 97.2 06/01/18 04:00 98.1 72 19 96/63 (74) 94 98.1 06/01/18 00:00 98.1 89 18 127/91 (103) 94 98.1 05/31/18 21:36 79 117/66 05/31/18 21:00 Room Air 05/31/18 20:00 97.1 79 20 117/66 (83) 99 97.1 05/31/18 16:00 97.6 88 22 118/82 (94) 98 97.6 Intake and Output 05/31/18 06/01/18 19:00 07:00 Intake Total 480 ml 360 ml Balance 480 ml 360 ml Intake Oral 480 ml 360 ml # Voids 3 2 # Bowel Movements 2 Objective General Appearance: cachectic HEENT: normocephalic, atraumatic Respiratory/Chest: chest wall non-tender, lungs clear Breasts: no masses Cardiovascular: normal peripheral pulses, no gallop/murmur Abdomen: no organomegaly, no mass Genitourinary: normal external genitalia Extremities: no clubbing Laboratory Tests 06/01/18 06:00: White Blood Count 7.7, Red Blood Count 4.77, Hemoglobin 14.5, Hematocrit 43.8, Mean Corpuscular Volume 92, Mean Corpuscular Hemoglobin 30.3, Mean Corpuscular Hemoglobin Concent 33.1, Red Cell Distribution Width 12.9, Platelet Count 230, Mean Platelet Volume 6.5, Neutrophils (%) (Auto) 39.7L, Lymphocytes (%) (Auto) 51.8H, Monocytes (%) (Auto) 6.0, Eosinophils (%) (Auto) 1.6, Basophils (%) (Auto ) 0.9, Sodium Level 141, Potassium Level 4.3, Chloride Level 107, Carbon Dioxide Level 24, Anion Gap 10, Blood Urea Nitrogen 22H, Creatinine 1.7H, Estimat Glomerular Filtration Rate 48.8, Glucose Level 85, Calcium Level 9.2 Current Medications Medications (Trade) Dose Ordered Sig/Lucie Route PRN Reason Start Time Stop Time Status Last Admin Dose Admin Acetaminophen (Tylenol) 650 mg Q4H PRN ORAL fever 05/26/18 14:45 06/25/18 14:44 Acetaminophen/ Hydrocodone Bitart ([place] 5/325) 1 tab Q4H PRN ORAL PAIN 4-10 06/01/18 08:00 06/08/18 07:59 06/01/18 12:07 Al Hydroxide/Mg Hydroxide (Mylanta II) 30 ml Q6H PRN ORAL dyspepsia 05/26/18 14:45 06/25/18 14:44 Dextrose (Dextrose 50%) STAT PRN IV Hypoglycemia 05/26/18 14:45 06/25/18 14:44 Divalproex Sodium (Depakote) 250 mg TID ORAL 06/01/18 13:02 07/01/18 13:01 06/01/18 13:39 Haloperidol Lactate (Haldol) 5 mg Q6H PRN IM Agitation 06/01/18 13:00 07/01/18 12:59 Lorazepam (Ativan 2mg/ml 1ml) 2 mg Q4H PRN IM For Anxiety 05/26/18 17:00 06/02/18 16:59 06/01/18 12:08 Metoprolol Tartrate (Lopressor) 25 mg Q12HR ORAL 05/26/18 21:00 06/25/18 20:59 06/01/18 10:00 Ondansetron HCl (Zofran) 4 mg Q6H PRN IVP Nausea & Vomiting 05/26/18 14:45 06/25/18 14:44 Polyethylene Glycol (Miralax) 17 gm HSPRN PRN ORAL Constipation 05/26/18 14:45 06/25/18 14:44 Tamsulosin HCl (Flomax) 0.4 mg BEDTIME ORAL 05/26/18 21:00 06/25/18 20:59 05/31/18 21:31 German Mooney MD Jun 01, 2018 15:00
[2018-06-01 16:07] VITALS: BP 122/76
--- NOTE | 2018-06-01 18:39 | General Progress Note ---
Assessment/Plan Status: unchanged Assessment/Plan Encephalopathy Dementia with behavioral disturbance -dc seroquel -dc risperdal -depakote 250mg tid, will increase to 500mg tid -dc rmeron -haldol 5mg im qhs Subjective Neurologic/Psychiatric: Reports: anxiety Allergies: Coded Allergies: NO KNOWN ALLERGIES (Verified Allergy, Unknown, 05/05/18) Subjective the pt is severely agitated and attempting to come out of bed not able to provide hx. the pts asked me to readjust his meds Objective Last 24 Hour Vital Signs Date Time Temp Pulse Resp B/P (MAP) Pulse Ox O2 Delivery O2 Flow Rate FiO2 06/01/18 16:07 97.8 82 18 122/76 (91) 97 97.8 06/01/18 13:06 97.6 06/01/18 12:36 97.6 72 18 113/75 (88) 97 97.6 06/01/18 12:07 97.2 06/01/18 10:00 101 132/72 06/01/18 09:00 Room Air 06/01/18 07:45 97.2 101 18 132/72 (92) 97 97.2 06/01/18 04:00 98.1 72 19 96/63 (74) 94 98.1 06/01/18 00:00 98.1 89 18 127/91 (103) 94 98.1 05/31/18 21:36 79 117/66 05/31/18 21:00 Room Air 05/31/18 20:00 97.1 79 20 117/66 (83) 99 97.1 Intake and Output 05/31/18 06/01/18 19:00 07:00 Intake Total 480 ml 360 ml Balance 480 ml 360 ml Intake Oral 480 ml 360 ml # Voids 3 2 # Bowel Movements 2 Laboratory Tests 06/01/18 06:00: White Blood Count 7.7, Red Blood Count 4.77, Hemoglobin 14.5, Hematocrit 43.8, Mean Corpuscular Volume 92, Mean Corpuscular Hemoglobin 30.3, Mean Corpuscular Hemoglobin Concent 33.1, Red Cell Distribution Width 12.9, Platelet Count 230, Mean Platelet Volume 6.5, Neutrophils (%) (Auto) 39.7L, Lymphocytes (%) (Auto) 51.8H, Monocytes (%) (Auto) 6.0, Eosinophils (%) (Auto) 1.6, Basophils (%) (Auto ) 0.9, Sodium Level 141, Potassium Level 4.3, Chloride Level 107, Carbon Dioxide Level 24, Anion Gap 10, Blood Urea Nitrogen 22H, Creatinine 1.7H, Estimat Glomerular Filtration Rate 48.8, Glucose Level 85, Calcium Level 9.2 Height (Feet): 5 Height (Inches): 7.00 Weight (Pounds): 139 General Appearance: no apparent distress, alert, confused, agitated Mckenna Bermudez MD Jun 01, 2018 18:39
--- NOTE | 2018-06-01 19:49 | Nephrology Progress Note ---
Assessment/Plan Assessment 1.HAMZAH 2.CKD 3.HTN Plan Plan continue current iv monitoring renal function avoid NSAID replace electrolyte as need it Subjective ROS Limited/Unobtainable: Yes HEENT: Reports: no symptoms Subjective awake confused Objective Objective Last 24 Hour Vital Signs Date Time Temp Pulse Resp B/P (MAP) Pulse Ox O2 Delivery O2 Flow Rate FiO2 06/01/18 16:07 97.8 82 18 122/76 (91) 97 97.8 06/01/18 13:06 97.6 06/01/18 12:36 97.6 72 18 113/75 (88) 97 97.6 06/01/18 12:07 97.2 06/01/18 10:00 101 132/72 06/01/18 09:00 Room Air 06/01/18 07:45 97.2 101 18 132/72 (92) 97 97.2 06/01/18 04:00 98.1 72 19 96/63 (74) 94 98.1 06/01/18 00:00 98.1 89 18 127/91 (103) 94 98.1 05/31/18 21:36 79 117/66 05/31/18 21:00 Room Air 05/31/18 20:00 97.1 79 20 117/66 (83) 99 97.1 Intake and Output 05/31/18 06/01/18 19:00 07:00 Intake Total 480 ml 360 ml Balance 480 ml 360 ml Intake Oral 480 ml 360 ml # Voids 3 2 # Bowel Movements 2 Laboratory Tests 06/01/18 06:00: White Blood Count 7.7, Red Blood Count 4.77, Hemoglobin 14.5, Hematocrit 43.8, Mean Corpuscular Volume 92, Mean Corpuscular Hemoglobin 30.3, Mean Corpuscular Hemoglobin Concent 33.1, Red Cell Distribution Width 12.9, Platelet Count 230, Mean Platelet Volume 6.5, Neutrophils (%) (Auto) 39.7L, Lymphocytes (%) (Auto) 51.8H, Monocytes (%) (Auto) 6.0, Eosinophils (%) (Auto) 1.6, Basophils (%) (Auto ) 0.9, Sodium Level 141, Potassium Level 4.3, Chloride Level 107, Carbon Dioxide Level 24, Anion Gap 10, Blood Urea Nitrogen 22H, Creatinine 1.7H, Estimat Glomerular Filtration Rate 48.8, Glucose Level 85, Calcium Level 9.2 Height (Feet): 5 Height (Inches): 7.00 Weight (Pounds): 139 Objective HEENT: Extraocular muscle intact. No lymphadenopathy noted. CARDIOVASCULAR: S1 and S2. No rubs or gallops. PULMONARY: Clear to auscultation bilaterally. No rales, rhonchi or wheezes. ABDOMEN: Nondistended and nontender. EXTREMITIES: No edema noted. Pamela Davila MD Jun 01, 2018 19:49
[2018-06-01 20:00] VITALS: BP 120/89
[2018-06-01] MEDS: Tamsulosin 0.4mg cap ORAL SCH (20:28)
[2018-06-01] MEDS ORDERED: Haloperidol 5mg/ml Inj IM SCH (21:00)
[2018-06-02] VITALS: BP 104/60
[2018-06-02 04:00] VITALS: BP 97/72
[2018-06-02 07:15] LABS: ANION GAP 10 mmol/L (5-15); BLOOD UREA NITROGEN 31 mg/dL (7-18); CALCIUM 8.8 MG/DL (8.5-10.1); CARBON DIOXIDE 22 MMOL/L (21-32); CHLORIDE 107 MMOL/L (98-107); CREATININE 1.9 MG/DL (0.55-1.30); POTASSIUM 5.6 MMOL/L (3.5-5.1); SODIUM 139 MMOL/L (136-145)
[2018-06-02 07:25] LABS: HEMATOCRIT 41.5 % (42.0-52.0); HEMOGLOBIN 13.8 G/DL (14.2-18.0); MEAN CORPUSCULAR VOLUME 92 FL (80-99); PLATELET COUNT 214 K/UL (150-450); RED BLOOD COUNT 4.49 M/UL (4.70-6.10); RED CELL DISTRIBUTION WIDTH 12.8 % (11.6-14.8); WHITE BLOOD COUNT 8.5 K/UL (4.8-10.8)
--- NOTE | 2018-06-02 07:58 | General Progress Note ---
Assessment/Plan Assessment/Plan (1) Thalamic pain syndrome (2) H/o CVA (3) Encephalopathy (4) Dementia (5) Schizophrenia Pt will be continued on [place] as needed. D/w Dr. Berman and he concurred. Subjective Date patient seen: Jun 02, 2018 Time patient seen: 07:30 - am ROS Limited/Unobtainable: Yes Allergies: Coded Allergies: NO KNOWN ALLERGIES (Verified Allergy, Unknown, 05/05/18) Subjective Patient is in bed confused no signs of pain and has used the [place] on dose since yesterday. Objective Last 24 Hour Vital Signs Date Time Temp Pulse Resp B/P (MAP) Pulse Ox O2 Delivery O2 Flow Rate FiO2 06/02/18 04:00 97.9 71 18 97/72 (80) 92 97.9 06/02/18 00:00 98.0 71 18 104/60 (75) 94 98.0 06/01/18 21:00 Room Air 06/01/18 20:28 96 120/89 06/01/18 20:00 97.7 18 18 120/89 (99) 93 97.7 06/01/18 16:07 97.8 82 18 122/76 (91) 97 97.8 06/01/18 13:06 97.6 06/01/18 12:36 97.6 72 18 113/75 (88) 97 97.6 06/01/18 12:07 97.2 06/01/18 10:00 101 132/72 06/01/18 09:00 Room Air Intake and Output 06/01/18 06/02/18 19:00 07:00 Intake Total 960 ml Balance 960 ml Intake Oral 960 ml # Voids 4 2 # Bowel Movements 4 Laboratory Tests 06/02/18 05:40: White Blood Count 8.5, Red Blood Count 4.49L, Hemoglobin 13.8L, Hematocrit 41.5L , Mean Corpuscular Volume 92, Mean Corpuscular Hemoglobin 30.7, Mean Corpuscular Hemoglobin Concent 33.2, Red Cell Distribution Width 12.8, Platelet Count 214, Mean Platelet Volume 7.3, Neutrophils (%) (Auto) , Lymphocytes (%) ( Auto) , Monocytes (%) (Auto) , Eosinophils (%) (Auto) , Basophils (%) (Auto) , Neutrophils % (Manual) [Pending], Lymphocytes % (Manual) [Pending], Platelet Estimate [Pending], Platelet Morphology [Pending], Sodium Level 139, Potassium Level 5.6H, Chloride Level 107, Carbon Dioxide Level 22, Anion Gap 10, Blood Urea Nitrogen 31H, Creatinine 1.9H, Estimat Glomerular Filtration Rate 42.9, Glucose Level 79, Calcium Level 8.8 Height (Feet): 5 Height (Inches): 7.00 Weight (Pounds): 139 General Appearance: confused EENT: PERRL/EOMI Neck: non-tender Cardiovascular: normal rate, regular rhythm Respiratory/Chest: lungs clear, normal breath sounds Abdomen: non tender, soft Extremities: non-tender Neurologic: alert, responsive Skin: warm/dry Natalio Patterson Jun 02, 2018 07:58
[2018-06-02 08:00] VITALS: BP 96/63
[2018-06-02] MEDS: Metoprolol 25mg tab ORAL SCH ×2 (09:00→20:28)
--- NOTE | 2018-06-02 09:01 | Nephrology Progress Note ---
Assessment/Plan Assessment/Plan Asked to assume Primary care responsibilities going forth A/P 1) CKD 4- Cr up to 1.9 and K+ 5.6 - STAT recheck prior to treatment 2) Acute Encephalopathy- Per PSY and Neuro - await DC to appropriate facility - much improved 3) HTN- stable 4) DVT Prophylax- SCDs Subjective Date patient seen: Jun 02, 2018 Time patient seen: 08:58 ROS Limited/Unobtainable: No Allergies: Coded Allergies: NO KNOWN ALLERGIES (Verified Allergy, Unknown, 05/05/18) Subjective Patient less confused and agitated. Sleeping comfortably this am Objective Last 24 Hour Vital Signs Date Time Temp Pulse Resp B/P (MAP) Pulse Ox O2 Delivery O2 Flow Rate FiO2 06/02/18 04:00 97.9 71 18 97/72 (80) 92 97.9 06/02/18 00:00 98.0 71 18 104/60 (75) 94 98.0 06/01/18 21:00 Room Air 06/01/18 20:28 96 120/89 06/01/18 20:00 97.7 18 18 120/89 (99) 93 97.7 06/01/18 16:07 97.8 82 18 122/76 (91) 97 97.8 06/01/18 13:06 97.6 06/01/18 12:36 97.6 72 18 113/75 (88) 97 97.6 06/01/18 12:07 97.2 06/01/18 10:00 101 132/72 06/01/18 09:00 Room Air Intake and Output 06/01/18 06/02/18 19:00 07:00 Intake Total 960 ml Balance 960 ml Intake Oral 960 ml # Voids 4 2 # Bowel Movements 4 Laboratory Tests 06/02/18 05:40: White Blood Count 8.5, Red Blood Count 4.49L, Hemoglobin 13.8L, Hematocrit 41.5L , Mean Corpuscular Volume 92, Mean Corpuscular Hemoglobin 30.7, Mean Corpuscular Hemoglobin Concent 33.2, Red Cell Distribution Width 12.8, Platelet Count 214, Mean Platelet Volume 7.3, Neutrophils (%) (Auto) , Lymphocytes (%) ( Auto) , Monocytes (%) (Auto) , Eosinophils (%) (Auto) , Basophils (%) (Auto) , Differential Total Cells Counted 100, Neutrophils % (Manual) 27L, Lymphocytes % (Manual) 70H, Monocytes % (Manual) 2, Eosinophils % (Manual) 1, Basophils % ( Manual) 0, Band Neutrophils 0, Platelet Estimate Adequate, Platelet Morphology Normal, Red Blood Cell Morphology Normal, Sodium Level 139, Potassium Level 5.6H , Chloride Level 107, Carbon Dioxide Level 22, Anion Gap 10, Blood Urea Nitrogen 31H, Creatinine 1.9H, Estimat Glomerular Filtration Rate 42.9, Glucose Level 79, Calcium Level 8.8 Height (Feet): 5 Height (Inches): 7.00 Weight (Pounds): 139 General Appearance: WD/WN, no apparent distress EENT: PERRL/EOMI Neck: non-tender, normal alignment Cardiovascular: normal rate, regular rhythm Respiratory/Chest: lungs clear, normal breath sounds Abdomen: non tender, soft Edema: no edema noted Arm (L), no edema noted Arm (R), no edema noted Leg (L), no edema noted Leg (R), no edema noted Pedal (L), no edema noted Pedal (R), no edema noted Generalized Kamar Rangel M.D. Jun 02, 2018 09:01
[2018-06-02] MEDS: Depakote 500mg tab ORAL SCH ×3 (09:12→17:25)
--- NOTE | 2018-06-02 09:33 | Infectious Diseases Prog Note ---
Assessment/Plan Assessment/Plan 67 yo male who was sent to the ED from [facility] for two -days of increasing confusion, weakness and aggressive behavior toward staff. He was found to have an ESBL E.coli UTI but has not been on antibiotics. # UTI - ESBL E.coli - colonization - Urine Cx 05/27/18 - ESBL E.coli R Cefepime - Sen Bactrim and Erta - Patient denies dysuria #Onychomycosis #Prostate CA #Drug abuse #Hep C - LFTs WNL #Psychosis #Dementia #Weakness #CKD #Hypertension PLAN: - Patient remains afebrile with no leucocytosis. Improved clinically per - Continue to monitor for now - Monitor CBC and Temps - Supportive care Thank you for consulting us for the care of this patient. We will continue to follow with you. Subjective Allergies: Coded Allergies: NO KNOWN ALLERGIES (Verified Allergy, Unknown, 05/05/18) Subjective Patient remains agitated this morning Afebrile Objective Vital Signs Last 24 Hour Vital Signs Date Time Temp Pulse Resp B/P (MAP) Pulse Ox O2 Delivery O2 Flow Rate FiO2 06/02/18 09:00 71 96/63 06/02/18 08:00 97.7 20 96/63 (74) 86 97.7 06/02/18 04:00 97.9 71 18 97/72 (80) 92 97.9 06/02/18 00:00 98.0 71 18 104/60 (75) 94 98.0 06/01/18 21:00 Room Air 06/01/18 20:28 96 120/89 06/01/18 20:00 97.7 18 18 120/89 (99) 93 97.7 06/01/18 16:07 97.8 82 18 122/76 (91) 97 97.8 06/01/18 13:06 97.6 06/01/18 12:36 97.6 72 18 113/75 (88) 97 97.6 06/01/18 12:07 97.2 06/01/18 10:00 101 132/72 Height (Feet): 5 Height (Inches): 7.00 Weight (Pounds): 139 Objective Gen: Agitated HEENT: NCAT, MMM, EOMI NEURO: A/O. Strength and sensation grossly intact Laboratory Tests Test 06/02/18 05:40 White Blood Count 8.5 K/UL (4.8-10.8) Red Blood Count 4.49 M/UL (4.70-6.10) L Hemoglobin 13.8 G/DL (14.2-18.0) L Hematocrit 41.5 % (42.0-52.0) L Mean Corpuscular Volume 92 FL (80-99) Mean Corpuscular Hemoglobin 30.7 PG (27.0-31.0) Mean Corpuscular Hemoglobin Concent 33.2 G/DL (32.0-36.0) Red Cell Distribution Width 12.8 % (11.6-14.8) Platelet Count 214 K/UL (150-450) Mean Platelet Volume 7.3 FL (6.5-10.1) Neutrophils (%) (Auto) % (45.0-75.0) Lymphocytes (%) (Auto) % (20.0-45.0) Monocytes (%) (Auto) % (1.0-10.0) Eosinophils (%) (Auto) % (0.0-3.0) Basophils (%) (Auto) % (0.0-2.0) Differential Total Cells Counted 100 Neutrophils % (Manual) 27 % (45-75) L Lymphocytes % (Manual) 70 % (20-45) H Monocytes % (Manual) 2 % (1-10) Eosinophils % (Manual) 1 % (0-3) Basophils % (Manual) 0 % (0-2) Band Neutrophils 0 % (0-8) Platelet Estimate Adequate Platelet Morphology Normal Red Blood Cell Morphology Normal Sodium Level 139 MMOL/L (136-145) Potassium Level 5.6 MMOL/L (3.5-5.1) H Chloride Level 107 MMOL/L (98-107) Carbon Dioxide Level 22 MMOL/L (21-32) Anion Gap 10 mmol/L (5-15) Blood Urea Nitrogen 31 mg/dL (7-18) H Creatinine 1.9 MG/DL (0.55-1.30) H Estimat Glomerular Filtration Rate 42.9 mL/min (>60) Glucose Level 79 MG/DL (74-106) Calcium Level 8.8 MG/DL (8.5-10.1) Current Medications Medications (Trade) Dose Ordered Sig/Lucie Route PRN Reason Start Time Stop Time Status Last Admin Dose Admin Acetaminophen (Tylenol) 650 mg Q4H PRN ORAL fever 05/26/18 14:45 06/25/18 14:44 Acetaminophen/ Hydrocodone Bitart ([place] 5/325) 1 tab Q4H PRN ORAL PAIN 4-10 06/01/18 08:00 06/08/18 07:59 06/01/18 12:07 Al Hydroxide/Mg Hydroxide (Mylanta II) 30 ml Q6H PRN ORAL dyspepsia 05/26/18 14:45 06/25/18 14:44 Dextrose (Dextrose 50%) STAT PRN IV Hypoglycemia 05/26/18 14:45 06/25/18 14:44 Divalproex Sodium (Depakote) 500 mg TID ORAL 06/02/18 09:00 07/02/18 08:59 06/02/18 09:12 Haloperidol Lactate (Haldol) 5 mg BEDTIME IM 06/01/18 21:00 07/01/18 20:59 06/01/18 20:28 Haloperidol Lactate (Haldol) 5 mg Q6H PRN IM Agitation 06/01/18 13:00 07/01/18 12:59 Lorazepam (Ativan 2mg/ml 1ml) 2 mg Q4H PRN IM For Anxiety 05/26/18 17:00 06/02/18 16:59 06/01/18 12:08 Metoprolol Tartrate (Lopressor) 25 mg Q12HR ORAL 05/26/18 21:00 06/25/18 20:59 06/01/18 20:28 Ondansetron HCl (Zofran) 4 mg Q6H PRN IVP Nausea & Vomiting 05/26/18 14:45 06/25/18 14:44 Polyethylene Glycol (Miralax) 17 gm HSPRN PRN ORAL Constipation 05/26/18 14:45 06/25/18 14:44 Tamsulosin HCl (Flomax) 0.4 mg BEDTIME ORAL 05/26/18 21:00 06/25/18 20:59 06/01/18 20:28 Damon Bonner M.D. Jun 02, 2018 09:33
[2018-06-02 09:47] LABS: ANION GAP 3 mmol/L (5-15); BLOOD UREA NITROGEN 32 mg/dL (7-18); CALCIUM 9.3 MG/DL (8.5-10.1); CARBON DIOXIDE 28 MMOL/L (21-32); CHLORIDE 107 MMOL/L (98-107); POTASSIUM 4.4 MMOL/L (3.5-5.1); SODIUM 138 MMOL/L (136-145)
--- NOTE | 2018-06-02 10:48 | Progress Note ---
DATE: 05/30/2018 SUBJECTIVE: The patient is an 67-year-old male patient who came to the hospital with encephalopathy. He has altered mental status, confusion, disorganized thought process worsened by stress of his medical illness that is why attending physician has requested daily psychiatric consultation. MENTAL STATUS EXAMINATION: The patient is a 67-year-old male. Appearance is disheveled. Attitude, irritable and agitated. Affect, guarded and restricted. Intellect poor. Mood is depressed and anxious. Motor activity, psychomotor agitation. Attention span is poor. Insight and judgment is poor. DIAGNOSIS: Major depressive disorder, mild, recurrent with psychotic features, rule out paranoid schizophrenia. PLAN: Treat him with Seroquel 50 mg p.o. q.8 h., Remeron 15 mg nightly. 20 minutes of insight-oriented psychotherapy provided. chart reviewed. Discussed with staff. Seen and assessed in his room. Yelena Roth M.D. DR: Orly JOB#: [id number] CC:
--- NOTE | 2018-06-02 10:54 | Progress Note ---
DATE: 05/31/2018 Poor Audio SUBJECTIVE: The patient is a 67-year-old male patient with encephalopathy. The patient is still confused, disorganized, mode labile, has no logical plan for his own self-care. extremity. That is why, he does require inpatient treatment. psychiatric followup . MENTAL STATUS EXAMINATION: This patient is a male patient, 67 years old. Appearance is disheveled. Attitude, irritable and agitated. Affect, guarded and restricted. Mood, depressed and anxious. Motor activity, psychomotor agitation. Attention span is poor. Orientation x2. Speech is pressured. Thought process, disorganized and illogical. Insight and judgment is poor. DIAGNOSIS: Major depression with psychotic features, rule out pseudodementia. PLAN: Treat him with Seroquel 50 mg q.8 h., Remeron 15 mg nightly, and Ativan 2 mg IM q.4 h. p.r.n. anxiety and agitation. Provided 20 minutes of cognitive behavioral therapy . Chart reviewed. Discussed with staff. Seen and assessed in his room. Yelena Roth M.D. DR: Antonella JOB#: [id number] CC:
--- NOTE | 2018-06-02 10:57 | Consultation ---
DATE OF CONSULTATION: 06/01/2018 PAIN MANAGEMENT CONSULTATION CONSULTING PHYSICIAN: Mckenzie Berman M.D. REFERRING PHYSICIAN: Jaleel Moon D.O. PHYSICIAN SHIPYARD PAINTER HELPER: Charity Romero CHIEF COMPLAINT: Altered mental status. HISTORY OF PRESENT ILLNESS: The patient is a 67-year-old male, who is being seen on the Medical/Surgical floor of [facility] for initial comprehensive pain management consultation. The patient is a known patient from prior admissions to the hospital, now at bedside with severe dementia and encephalopathy, unable to converse. No signs of pain or distress. He has a history of substance abuse, on methadone, had been on methadone Clinic in the past and now presenting from retirement, again with encephalopathy, dementia, behavioral issues and had complaints of pain. Due to this, we were consulted to help the patient to have adequate pain control while here in the hospital. REVIEW OF SYSTEMS: Unable to obtain due to the patient's mental status. PHYSICAL EXAMINATION: GENERAL: Alert, and awake. VITAL SIGNS: Blood pressure 96/60, heart 72, oxygen saturation is 94%, respiratory rate 19, and temperature 98 degrees Fahrenheit. LUNGS: Decreased breath sounds bilaterally. HEART: S1 S2 Regular ABDOMEN: Benign. EXTREMITIES: No cyanosis. No clubbing. No edema. NEUROLOGICAL: No focal deficit. ASSESSMENT AND PLAN: This is a 67-year-old male with history of CVA, chronic pain syndrome, encephalopathy, dementia, and schizophrenia. The patient will be discontinued off the morphine, started on [place] 5/325 mg every 4 hours as needed for moderate pain. The patient was discussed with Dr. Berman and Dr. Berman concurred. We will follow the patient. Thank you very much for the courtesy of this consultation. Mckenzie Berman M.D. ONOFRE Romero DR: BRIELLE JOB#: [id number] CC: HERLINDA
[2018-06-02 12:00] VITALS: BP 124/72
[2018-06-02] MEDS ORDERED: Haloperidol 5mg/ml Inj IM SCH ×3 (13:20→21:00)
[2018-06-02] MEDS: DiphenhydrAMINE 50mg/ml Inj IM SCH ×2 (14:07→20:29)
--- NOTE | 2018-06-02 14:13 | General Progress Note ---
Assessment/Plan Problem List: (1) CKD (chronic kidney disease) ICD Codes: N18.9 - CKD (chronic kidney disease) SNOMED: 796768096 (2) Confusion ICD Codes: R41.0 - Disorientation, unspecified SNOMED: 792616713 (3) UTI (urinary tract infection) ICD Codes: N39.0 - Urinary tract infection, site not specified SNOMED: 05547041 (4) Weakness ICD Codes: R53.1 - Weakness SNOMED: 94061521 Status: stable, progressing Assessment/Plan ot pt diet abx psyc tx psyc transfer vs dc plan snf Subjective Constitutional: Reports: weakness Allergies: Coded Allergies: NO KNOWN ALLERGIES (Verified Allergy, Unknown, 05/05/18) All Systems: reviewed and negative except above Subjective confused sleepy Objective Last 24 Hour Vital Signs Date Time Temp Pulse Resp B/P (MAP) Pulse Ox O2 Delivery O2 Flow Rate FiO2 06/02/18 09:00 Room Air 06/02/18 09:00 71 96/63 06/02/18 08:00 97.7 20 96/63 (74) 86 97.7 06/02/18 04:00 97.9 71 18 97/72 (80) 92 97.9 06/02/18 00:00 98.0 71 18 104/60 (75) 94 98.0 06/01/18 21:00 Room Air 06/01/18 20:28 96 120/89 06/01/18 20:00 97.7 18 18 120/89 (99) 93 97.7 06/01/18 16:07 97.8 82 18 122/76 (91) 97 97.8 Intake and Output 06/01/18 06/02/18 19:00 07:00 Intake Total 960 ml Balance 960 ml Intake Oral 960 ml # Voids 4 2 # Bowel Movements 4 Laboratory Tests 06/02/18 05:40: White Blood Count 8.5, Red Blood Count 4.49L, Hemoglobin 13.8L, Hematocrit 41.5L , Mean Corpuscular Volume 92, Mean Corpuscular Hemoglobin 30.7, Mean Corpuscular Hemoglobin Concent 33.2, Red Cell Distribution Width 12.8, Platelet Count 214, Mean Platelet Volume 7.3, Neutrophils (%) (Auto) , Lymphocytes (%) ( Auto) , Monocytes (%) (Auto) , Eosinophils (%) (Auto) , Basophils (%) (Auto) , Differential Total Cells Counted 100, Neutrophils % (Manual) 27L, Lymphocytes % (Manual) 70H, Monocytes % (Manual) 2, Eosinophils % (Manual) 1, Basophils % ( Manual) 0, Band Neutrophils 0, Platelet Estimate Adequate, Platelet Morphology Normal, Red Blood Cell Morphology Normal, Sodium Level 139, Potassium Level 5.6H , Chloride Level 107, Carbon Dioxide Level 22, Anion Gap 10, Blood Urea Nitrogen 31H, Creatinine 1.9H, Estimat Glomerular Filtration Rate 42.9, Glucose Level 79, Calcium Level 8.8 06/02/18 09:20: Sodium Level 138, Potassium Level 4.4, Chloride Level 107, Carbon Dioxide Level 28, Anion Gap 3L, Blood Urea Nitrogen 32H, Creatinine 2.0H, Estimat Glomerular Filtration Rate 40.5, Glucose Level 88, Calcium Level 9.3 Height (Feet): 5 Height (Inches): 7.00 Weight (Pounds): 139 General Appearance: lethargic EENT: normal ENT inspection Neck: normal alignment Cardiovascular: normal peripheral pulses, normal rate, regular rhythm Respiratory/Chest: chest wall non-tender, lungs clear, normal breath sounds Abdomen: normal bowel sounds, non tender, soft Extremities: normal inspection Edema: no edema noted Arm (L), no edema noted Arm (R), no edema noted Leg (L), no edema noted Leg (R), no edema noted Pedal (L), no edema noted Pedal (R), no edema noted Generalized Neurologic: motor weakness Skin: normal pigmentation, warm/dry Jaleel Moon DO Jun 02, 2018 14:13
[2018-06-02] MEDS ORDERED: DiphenhydrAMINE 50mg/ml Inj IM SCH (15:45)
[2018-06-02] MEDS ORDERED: LORazepam Inj 2mg/ml 1ml IM SCH (15:45)
[2018-06-02 15:47] VITALS: BP 138/85
[2018-06-02] MEDS: ALPRAZolam 0.5mg tab ORAL SCH (17:25)
[2018-06-02] MEDS ORDERED: DIVALPROEX SOD500 MG ORAL (18:44)
--- NOTE | 2018-06-02 18:51 | Neurology Progress Note ---
Interim History Interim History Interim History Mr. Roth is unable to tell me how he feels. He is sedated now. As per his nurses he was agitated and combative and had to be sedated. He is awake but not alert. His is with him. He denies any hallucinations. He continues to be aphasic. He continues to be cognitively impoverished. He feels weaker. He denies any new neurologic problems. Review of Systems Neuro Review of Systems Benign. Objective Physical Exam Last Vital Signs Date Time Temp Pulse Resp B/P (MAP) Pulse Ox O2 Delivery O2 Flow Rate FiO2 06/02/18 15:47 97.2 103 21 138/85 (102) 96 97.2 06/02/18 09:00 Room Air Laboratory Tests Test 06/02/18 05:40 06/02/18 09:20 White Blood Count 8.5 K/UL (4.8-10.8) Red Blood Count 4.49 M/UL (4.70-6.10) L Hemoglobin 13.8 G/DL (14.2-18.0) L Hematocrit 41.5 % (42.0-52.0) L Mean Corpuscular Volume 92 FL (80-99) Mean Corpuscular Hemoglobin 30.7 PG (27.0-31.0) Mean Corpuscular Hemoglobin Concent 33.2 G/DL (32.0-36.0) Red Cell Distribution Width 12.8 % (11.6-14.8) Platelet Count 214 K/UL (150-450) Mean Platelet Volume 7.3 FL (6.5-10.1) Neutrophils (%) (Auto) % (45.0-75.0) Lymphocytes (%) (Auto) % (20.0-45.0) Monocytes (%) (Auto) % (1.0-10.0) Eosinophils (%) (Auto) % (0.0-3.0) Basophils (%) (Auto) % (0.0-2.0) Differential Total Cells Counted 100 Neutrophils % (Manual) 27 % (45-75) L Lymphocytes % (Manual) 70 % (20-45) H Monocytes % (Manual) 2 % (1-10) Eosinophils % (Manual) 1 % (0-3) Basophils % (Manual) 0 % (0-2) Band Neutrophils 0 % (0-8) Platelet Estimate Adequate Platelet Morphology Normal Red Blood Cell Morphology Normal Sodium Level 139 MMOL/L (136-145) 138 MMOL/L (136-145) Potassium Level 5.6 MMOL/L (3.5-5.1) H 4.4 MMOL/L (3.5-5.1) Chloride Level 107 MMOL/L (98-107) 107 MMOL/L (98-107) Carbon Dioxide Level 22 MMOL/L (21-32) 28 MMOL/L (21-32) Anion Gap 10 mmol/L (5-15) 3 mmol/L (5-15) L Blood Urea Nitrogen 31 mg/dL (7-18) H 32 mg/dL (7-18) H Creatinine 1.9 MG/DL (0.55-1.30) H 2.0 MG/DL (0.55-1.30) H Estimat Glomerular Filtration Rate 42.9 mL/min (>60) 40.5 mL/min (>60) Glucose Level 79 MG/DL (74-106) 88 MG/DL (74-106) Calcium Level 8.8 MG/DL (8.5-10.1) 9.3 MG/DL (8.5-10.1) Neurologic Exam Objective PHYSICAL EXAMINATION: GENERAL: He is a well-developed relatively well-nourished black gentleman, lying in bed, in no acute distress. HEAD: Normocephalic and atraumatic. EENT: Examination benign. NECK: No neck rigidity was observed. NEUROLOGICAL EXAMINATION: MENTAL STATUS EXAMINATION: He was awake but not alert. He was oriented to self only. He had no idea as to where he was or what the date was. He was unable to cooperate for further mental status testing. SPEECH: He had a moderate dysarthria. LANGUAGE: He had an aphasia with significant problems expressing himself and less significant problems understanding commands. CRANIAL NERVE EXAMINATION: II: He did not cooperate for confrontation testing. He, however, was able to blink to threat. III, IV & : The external ocular movements were present on oculocephalic maneuvers. The pupils were 3 mm in diameter and reactive sluggishly to light. V & VII: The corneal reflexes were equal bilaterally. He had no facial asymmetry. VIII: He seemed to be able to hear well and had no nystagmus. IX: The palate moved symmetrically on phonation. X: He had no hoarseness of voice. XI: The sternocleidomastoids and trapezii functioned normally. XII: The tongue was in the midline without any fasciculations or atrophy. MOTOR SYSTEM: The tone was increased in all four extremities with gegenhalten. Examination of muscle mass revealed no focal wasting. Examination of power was impossible to perform on individual muscle groups, however, he moved all four extremities relatively well and had excellent hand burr sander bilaterally. SENSORY EXAMINATION: He responded appropriately to painful stimuli. He did not cooperate for the sensory modalities. REFLEXES: Trace positive and bilaterally symmetrical at the biceps, triceps, brachioradialis, and knees, 0 at both ankles. The plantar responses were flexor bilaterally. COORDINATION, STANCE & GAIT: Could not be tested. Impression/Recommendations Diagnostic Impression 1. Mr. Arcadio Roth is a 67-year-old, right-handed, black gentleman, with a past history of hypertension, cerebrovascular disease with prior stroke, the exact details of which are unavailable to us, dementia, psychiatric illness and prostate cancer, who is institutionalized in a half-way. He was hospitalized on 05/26/18 for a change in his mental state. The exact details of this change is unknown to us. 2. He is unable to tell me how he feels. He is sedated now. As per his nurses he was agitated and combative and had to be sedated. He is awake but not alert. His is with him. He denies any hallucinations. He continues to be aphasic. He continues to be cognitively impoverished. He feels weaker. He denies any new neurologic problems. 3. On neurological examination, at this time, he is awake but not alert. He is oriented to self only, has problems with recent and remote memory, has a significant aphasia with an expressive greater than receptive component, is unable to give a good effort on testing motor power, but has excellent hand burr sander and moves all extremities quite well, has globally diminished deep tendon reflexes and is unable to cooperate for testing of coordination, stance and gait. 4. Laboratory data obtained thus far revealed that he is mildly anemic with hemoglobin of 12.8, but his WBC count was normal at 7.9. His chemistry panel reveals BUN elevated to 35 and creatinine elevated to 2.5. 5. His Urine Analysis is consistent with a UTI. 6. The CT of the brain done on 05/28/18 revealed "chronic and age-related changes. Negative for acute intracranial bleed or mass effect." 7. The patient's history and neurological examination are most compatible with an encephalopathy superimposed and underlying dementia. 8. His behavioral problems are most probably related to an underlying psychiatric illness - most probably schizophrenia. 9. He is still encephalopathic. It is unclear as to what the exact etiology for the encephalopathy is. He does have renal dysfunction, and a UTI which could be contributing. Today he is more encephalopathic due to sedation. Recommendations 1. Continue present management. 2. Increase activity as tolerated. 3. Appropriate treatment of infectious process. Anaid Caceres M.D., M.S.P.H. ANAID CACERES Jun 02, 2018 18:51
[2018-06-02 20:00] VITALS: BP 116/84
--- NOTE | 2018-06-02 20:15 | Nephrology Progress Note ---
Assessment/Plan Assessment 1.HAMZAH 2.CKD 3.HTN Plan Plan continue current iv monitoring renal function avoid NSAID replace electrolyte as need it Subjective Constitutional: Reports: no symptoms HEENT: Reports: no symptoms Genitourinary: Reports: no symptoms Neurologic/Psychiatric: Reports: no symptoms Subjective awake confused Objective Objective Last 24 Hour Vital Signs Date Time Temp Pulse Resp B/P (MAP) Pulse Ox O2 Delivery O2 Flow Rate FiO2 06/02/18 15:47 97.2 103 21 138/85 (102) 96 97.2 06/02/18 12:00 97.2 95 21 124/72 (89) 95 97.2 06/02/18 09:00 Room Air 06/02/18 09:00 71 96/63 06/02/18 08:00 97.7 20 96/63 (74) 86 97.7 06/02/18 04:00 97.9 71 18 97/72 (80) 92 97.9 06/02/18 00:00 98.0 71 18 104/60 (75) 94 98.0 06/01/18 21:00 Room Air 06/01/18 20:28 96 120/89 Intake and Output 06/01/18 06/02/18 19:00 07:00 Intake Total 960 ml Balance 960 ml Intake Oral 960 ml # Voids 4 2 # Bowel Movements 4 Laboratory Tests 06/02/18 05:40: White Blood Count 8.5, Red Blood Count 4.49L, Hemoglobin 13.8L, Hematocrit 41.5L , Mean Corpuscular Volume 92, Mean Corpuscular Hemoglobin 30.7, Mean Corpuscular Hemoglobin Concent 33.2, Red Cell Distribution Width 12.8, Platelet Count 214, Mean Platelet Volume 7.3, Neutrophils (%) (Auto) , Lymphocytes (%) ( Auto) , Monocytes (%) (Auto) , Eosinophils (%) (Auto) , Basophils (%) (Auto) , Differential Total Cells Counted 100, Neutrophils % (Manual) 27L, Lymphocytes % (Manual) 70H, Monocytes % (Manual) 2, Eosinophils % (Manual) 1, Basophils % ( Manual) 0, Band Neutrophils 0, Platelet Estimate Adequate, Platelet Morphology Normal, Red Blood Cell Morphology Normal, Sodium Level 139, Potassium Level 5.6H , Chloride Level 107, Carbon Dioxide Level 22, Anion Gap 10, Blood Urea Nitrogen 31H, Creatinine 1.9H, Estimat Glomerular Filtration Rate 42.9, Glucose Level 79, Calcium Level 8.8 06/02/18 09:20: Sodium Level 138, Potassium Level 4.4, Chloride Level 107, Carbon Dioxide Level 28, Anion Gap 3L, Blood Urea Nitrogen 32H, Creatinine 2.0H, Estimat Glomerular Filtration Rate 40.5, Glucose Level 88, Calcium Level 9.3 Height (Feet): 5 Height (Inches): 7.00 Weight (Pounds): 139 Objective HEENT: Extraocular muscle intact. No lymphadenopathy noted. CARDIOVASCULAR: S1 and S2. No rubs or gallops. PULMONARY: Clear to auscultation bilaterally. No rales, rhonchi or wheezes. ABDOMEN: Nondistended and nontender. EXTREMITIES: No edema noted. Pamela Davila MD Jun 02, 2018 20:15
[2018-06-02] MEDS: Tamsulosin 0.4mg cap ORAL SCH (20:28)
[2018-06-03] VITALS: BP_SYST 130; BP_SYST 94; BP_DIAS 62; BP_DIAS 78
[2018-06-03 04:00] VITALS: BP 94/62
--- NOTE | 2018-06-03 07:53 | General Progress Note ---
Assessment/Plan Assessment/Plan (1) Thalamic pain syndrome (2) H/o CVA (3) Encephalopathy (4) Dementia (5) Schizophrenia Pt will be continued on [place] as needed. D/w Dr. Berman and he concurred. Subjective Date patient seen: Jun 03, 2018 Time patient seen: 07:45 - am ROS Limited/Unobtainable: Yes Allergies: Coded Allergies: NO KNOWN ALLERGIES (Verified Allergy, Unknown, 05/05/18) Subjective Patient is in bed no signs of pain or distress. Objective Last 24 Hour Vital Signs Date Time Temp Pulse Resp B/P (MAP) Pulse Ox O2 Delivery O2 Flow Rate FiO2 06/03/18 04:00 97.0 88 20 94/62 (73) 100 97.0 06/03/18 00:00 97.5 80 20 130/78 (95) 99 97.5 06/03/18 00:00 97.0 88 20 94/62 (73) 100 97.0 06/02/18 21:00 Room Air 06/02/18 20:28 85 116/84 06/02/18 20:00 97.6 85 19 116/84 (95) 95 97.6 06/02/18 15:47 97.2 103 21 138/85 (102) 96 97.2 06/02/18 12:00 97.2 95 21 124/72 (89) 95 97.2 06/02/18 09:00 Room Air 06/02/18 09:00 71 96/63 06/02/18 08:00 97.7 20 96/63 (74) 86 97.7 Intake and Output 06/02/18 06/03/18 19:00 07:00 Intake Total 240 ml Balance 240 ml Intake Oral 240 ml # Voids 2 3 # Bowel Movements 1 Laboratory Tests 06/02/18 09:20: Sodium Level 138, Potassium Level 4.4, Chloride Level 107, Carbon Dioxide Level 28, Anion Gap 3L, Blood Urea Nitrogen 32H, Creatinine 2.0H, Estimat Glomerular Filtration Rate 40.5, Glucose Level 88, Calcium Level 9.3 Height (Feet): 5 Height (Inches): 7.00 Weight (Pounds): 145 Objective GENERAL: Alert, and awake. LUNGS: Decreased breath sounds bilaterally. HEART: S1 S2 Regular ABDOMEN: Benign. EXTREMITIES: No cyanosis. No clubbing. No edema. NEUROLOGICAL: No focal deficit. Natalio Patterson Jun 03, 2018 07:53
[2018-06-03 08:00] VITALS: BP 125/88
--- NOTE | 2018-06-03 08:35 | Nephrology Progress Note ---
Assessment/Plan Assessment 1.HAMZAH 2.CKD 3.HTN Plan Plan continue current iv monitoring renal function avoid NSAID replace electrolyte as need it Subjective Subjective awake confused Objective Objective Last 24 Hour Vital Signs Date Time Temp Pulse Resp B/P (MAP) Pulse Ox O2 Delivery O2 Flow Rate FiO2 06/03/18 04:00 97.0 88 20 94/62 (73) 100 97.0 06/03/18 00:00 97.5 80 20 130/78 (95) 99 97.5 06/03/18 00:00 97.0 88 20 94/62 (73) 100 97.0 06/02/18 21:00 Room Air 06/02/18 20:28 85 116/84 06/02/18 20:00 97.6 85 19 116/84 (95) 95 97.6 06/02/18 15:47 97.2 103 21 138/85 (102) 96 97.2 06/02/18 12:00 97.2 95 21 124/72 (89) 95 97.2 06/02/18 09:00 Room Air 06/02/18 09:00 71 96/63 Intake and Output 06/02/18 06/03/18 19:00 07:00 Intake Total 240 ml Balance 240 ml Intake Oral 240 ml # Voids 2 3 # Bowel Movements 1 Laboratory Tests 06/02/18 09:20: Sodium Level 138, Potassium Level 4.4, Chloride Level 107, Carbon Dioxide Level 28, Anion Gap 3L, Blood Urea Nitrogen 32H, Creatinine 2.0H, Estimat Glomerular Filtration Rate 40.5, Glucose Level 88, Calcium Level 9.3 Height (Feet): 5 Height (Inches): 7.00 Weight (Pounds): 145 Objective HEENT: Extraocular muscle intact. No lymphadenopathy noted. CARDIOVASCULAR: S1 and S2. No rubs or gallops. PULMONARY: Clear to auscultation bilaterally. No rales, rhonchi or wheezes. ABDOMEN: Nondistended and nontender. EXTREMITIES: No edema noted. Pamela Davila MD Jun 03, 2018 08:35
--- NOTE | 2018-06-03 08:59 | Nephrology Progress Note ---
Assessment/Plan Assessment/Plan Asked to assume Primary care responsibilities going forth Patient is medically stable and was discharged yesterday. He has been cleared by all consultants. He is to be transferred to [facility]. At this point patient has received appropriate care and is discharged Subjective Allergies: Coded Allergies: NO KNOWN ALLERGIES (Verified Allergy, Unknown, 05/05/18) Objective Last 24 Hour Vital Signs Date Time Temp Pulse Resp B/P (MAP) Pulse Ox O2 Delivery O2 Flow Rate FiO2 06/03/18 04:00 97.0 88 20 94/62 (73) 100 97.0 06/03/18 00:00 97.5 80 20 130/78 (95) 99 97.5 06/03/18 00:00 97.0 88 20 94/62 (73) 100 97.0 06/02/18 21:00 Room Air 06/02/18 20:28 85 116/84 06/02/18 20:00 97.6 85 19 116/84 (95) 95 97.6 06/02/18 15:47 97.2 103 21 138/85 (102) 96 97.2 06/02/18 12:00 97.2 95 21 124/72 (89) 95 97.2 06/02/18 09:00 Room Air 06/02/18 09:00 71 96/63 Intake and Output 06/02/18 06/03/18 19:00 07:00 Intake Total 240 ml Balance 240 ml Intake Oral 240 ml # Voids 2 3 # Bowel Movements 1 Laboratory Tests 06/02/18 09:20: Sodium Level 138, Potassium Level 4.4, Chloride Level 107, Carbon Dioxide Level 28, Anion Gap 3L, Blood Urea Nitrogen 32H, Creatinine 2.0H, Estimat Glomerular Filtration Rate 40.5, Glucose Level 88, Calcium Level 9.3 Height (Feet): 5 Height (Inches): 7.00 Weight (Pounds): 145 Kamar Rangel M.D. Jun 03, 2018 08:59
[2018-06-03] MEDS: Depakote 500mg tab ORAL SCH (09:00)
[2018-06-03] MEDS: DiphenhydrAMINE 50mg/ml Inj IM SCH (09:00)
[2018-06-03] MEDS: ALPRAZolam 0.5mg tab ORAL SCH (09:00)
[2018-06-03] MEDS: Metoprolol 25mg tab ORAL SCH (09:00)
--- NOTE | 2018-06-03 11:43 | General Progress Note ---
Assessment/Plan Status: unchanged Assessment/Plan Encephalopathy Dementia with behavioral disturbance -dchaldol -dc depakote -dc seroquel -start xanax 2mg tid spoke with dc sitter restraints Subjective Date patient seen: Jun 02, 2018 Neurologic/Psychiatric: Reports: anxiety, depressed, emotional problems Allergies: Coded Allergies: NO KNOWN ALLERGIES (Verified Allergy, Unknown, 05/05/18) Subjective the pt was agitated and the came said that she wants me to readjust his meds. I spoke to her for 30min. the pt was placed in restraints. Objective Last 24 Hour Vital Signs Date Time Temp Pulse Resp B/P (MAP) Pulse Ox O2 Delivery O2 Flow Rate FiO2 06/03/18 04:00 97.0 88 20 94/62 (73) 100 97.0 06/03/18 00:00 97.5 80 20 130/78 (95) 99 97.5 06/03/18 00:00 97.0 88 20 94/62 (73) 100 97.0 06/02/18 21:00 Room Air 06/02/18 20:28 85 116/84 06/02/18 20:00 97.6 85 19 116/84 (95) 95 97.6 06/02/18 15:47 97.2 103 21 138/85 (102) 96 97.2 06/02/18 12:00 97.2 95 21 124/72 (89) 95 97.2 Intake and Output 06/02/18 06/03/18 19:00 07:00 Intake Total 240 ml Balance 240 ml Intake Oral 240 ml # Voids 2 3 # Bowel Movements 1 Height (Feet): 5 Height (Inches): 7.00 Weight (Pounds): 145 General Appearance: no apparent distress, alert, confused, agitated Mckenna Bermudez MD Jun 03, 2018 11:43
[2018-06-03] MEDS ORDERED: DiphenhydrAMINE 50mg/ml Inj IM SCH (11:45)
--- NOTE | 2018-06-03 11:51 | General Progress Note ---
Assessment/Plan Status: stable Assessment/Plan Encephalopathy Dementia with behavioral disturbance -Ativan 2mg im tid -Benadryl 25mg bid -cont restraints for safety Subjective Date patient seen: Jun 03, 2018 Neurologic/Psychiatric: Reports: anxiety, depressed, emotional problems Allergies: Coded Allergies: NO KNOWN ALLERGIES (Verified Allergy, Unknown, 05/05/18) Subjective the pt is less agitated more manageable Objective Last 24 Hour Vital Signs Date Time Temp Pulse Resp B/P (MAP) Pulse Ox O2 Delivery O2 Flow Rate FiO2 06/03/18 04:00 97.0 88 20 94/62 (73) 100 97.0 06/03/18 00:00 97.5 80 20 130/78 (95) 99 97.5 06/03/18 00:00 97.0 88 20 94/62 (73) 100 97.0 06/02/18 21:00 Room Air 06/02/18 20:28 85 116/84 06/02/18 20:00 97.6 85 19 116/84 (95) 95 97.6 06/02/18 15:47 97.2 103 21 138/85 (102) 96 97.2 06/02/18 12:00 97.2 95 21 124/72 (89) 95 97.2 Intake and Output 06/02/18 06/03/18 19:00 07:00 Intake Total 240 ml Balance 240 ml Intake Oral 240 ml # Voids 2 3 # Bowel Movements 1 Height (Feet): 5 Height (Inches): 7.00 Weight (Pounds): 145 General Appearance: no apparent distress, alert, confused Neurologic: depressed affect Mckenna Bermudez MD Jun 03, 2018 11:50
[2018-06-03 12:00] VITALS: BP 109/79
--- NOTE | 2018-06-03 12:26 | Infectious Diseases Prog Note ---
Assessment/Plan Assessment/Plan 67 yo male who was sent to the ED from [facility] for two -days of increasing confusion, weakness and aggressive behavior toward staff. He was found to have an ESBL E.coli UTI but has not been on antibiotics. # UTI - ESBL E.coli - colonization - Urine Cx 05/27/18 - ESBL E.coli R Cefepime - Sen Bactrim and Erta - Patient denies dysuria #Onychomycosis #Prostate CA #Drug abuse #Hep C - LFTs WNL #Psychosis #Dementia #Weakness #CKD #Hypertension PLAN: - Patient remains afebrile with no leucocytosis - Continue to monitor for now - Monitor CBC and Temps - Supportive care Thank you for consulting us for the care of this patient. We will continue to follow with you. Subjective Allergies: Coded Allergies: NO KNOWN ALLERGIES (Verified Allergy, Unknown, 05/05/18) Subjective Agitated and not cooperative Afebrile Objective Vital Signs Last 24 Hour Vital Signs Date Time Temp Pulse Resp B/P (MAP) Pulse Ox O2 Delivery O2 Flow Rate FiO2 06/03/18 04:00 97.0 88 20 94/62 (73) 100 97.0 06/03/18 00:00 97.5 80 20 130/78 (95) 99 97.5 06/03/18 00:00 97.0 88 20 94/62 (73) 100 97.0 06/02/18 21:00 Room Air 06/02/18 20:28 85 116/84 06/02/18 20:00 97.6 85 19 116/84 (95) 95 97.6 06/02/18 15:47 97.2 103 21 138/85 (102) 96 97.2 Height (Feet): 5 Height (Inches): 7.00 Weight (Pounds): 145 Objective Gen: Agitated, Sitting in bed HEENT: NCAT, MMM, EOMI NEURO: A/O. Strength and sensation grossly intact Current Medications Medications (Trade) Dose Ordered Sig/Lucie Route PRN Reason Start Time Stop Time Status Last Admin Dose Admin Acetaminophen (Tylenol) 650 mg Q4H PRN ORAL fever 05/26/18 14:45 06/25/18 14:44 Acetaminophen/ Hydrocodone Bitart ([place] 5/325) 1 tab Q4H PRN ORAL PAIN 4-10 06/01/18 08:00 8/20/18 07:59 06/01/18 12:07 Al Hydroxide/Mg Hydroxide ([place]yl[place] II) 30 ml Q6H PRN ORAL dyspepsia 05/26/18 14:45 06/25/18 14:44 Dextrose (Dextrose 50%) STAT PRN IV Hypoglycemia 05/26/18 14:45 06/25/18 14:44 Diphenhydramine HCl (Benadryl) 25 mg BID IM 06/03/18 11:45 07/03/18 11:44 Diphenhydramine HCl (Benadryl) 25 mg Q12HR IM 06/02/18 12:00 07/02/18 11:59 06/02/18 20:29 Divalproex Sodium (Depakote) 500 mg TID ORAL 06/02/18 09:00 07/02/18 08:59 06/02/18 17:25 Haloperidol Lactate (Haldol) 5 mg Q6H PRN IM Agitation 06/01/18 13:00 07/01/18 12:59 Lorazepam (Ativan 2mg/ml 1ml) 2 mg THREE TIMES A DAY IM 06/03/18 13:00 06/10/18 12:59 Metoprolol Tartrate (Lopressor) 25 mg Q12HR ORAL 05/26/18 21:00 06/25/18 20:59 06/02/18 20:28 Ondansetron HCl (Zofran) 4 mg Q6H PRN IVP Nausea & Vomiting 05/26/18 14:45 06/25/18 14:44 Polyethylene Glycol (Miralax) 17 gm HSPRN PRN ORAL Constipation 05/26/18 14:45 06/25/18 14:44 Tamsulosin HCl (Flomax) 0.4 mg BEDTIME ORAL 05/26/18 21:00 06/25/18 20:59 06/02/18 20:28 Damon Bonner M.D. Jun 03, 2018 12:26
[2018-06-03] MEDS ORDERED: LORazepam Inj 2mg/ml 1ml IM SCH (13:00)
[2018-06-03 13:17] LABS: ANION GAP 8 mmol/L (5-15); BLOOD UREA NITROGEN 30 mg/dL (7-18); CARBON DIOXIDE 25 MMOL/L (21-32); CHLORIDE 107 MMOL/L (98-107); CREATININE 1.8 MG/DL (0.55-1.30); POTASSIUM 5.3 MMOL/L (3.5-5.1); SODIUM 139 MMOL/L (136-145)
--- NOTE | 2018-06-03 14:22 | General Progress Note ---
Assessment/Plan Problem List: (1) CKD (chronic kidney disease) ICD Codes: N18.9 - CKD (chronic kidney disease) SNOMED: 700589304 (2) Confusion ICD Codes: R41.0 - Disorientation, unspecified SNOMED: 899097944 (3) UTI (urinary tract infection) ICD Codes: N39.0 - Urinary tract infection, site not specified SNOMED: 55484677 (4) Weakness ICD Codes: R53.1 - Weakness SNOMED: 08852181 Status: stable, progressing Assessment/Plan ot pt diet abx psyc tx psyc transfer vs dc plan snf Subjective Constitutional: Reports: weakness Allergies: Coded Allergies: NO KNOWN ALLERGIES (Verified Allergy, Unknown, 05/05/18) All Systems: reviewed and negative except above Subjective confused sleepy Objective Last 24 Hour Vital Signs Date Time Temp Pulse Resp B/P (MAP) Pulse Ox O2 Delivery O2 Flow Rate FiO2 06/03/18 12:00 97.7 75 20 109/79 (89) 97.7 06/03/18 09:00 Room Air 06/03/18 08:00 97.3 87 18 125/88 (100) 97 97.3 06/03/18 04:00 97.0 88 20 94/62 (73) 100 97.0 06/03/18 00:00 97.5 80 20 130/78 (95) 99 97.5 06/03/18 00:00 97.0 88 20 94/62 (73) 100 97.0 06/02/18 21:00 Room Air 06/02/18 20:28 85 116/84 06/02/18 20:00 97.6 85 19 116/84 (95) 95 97.6 06/02/18 15:47 97.2 103 21 138/85 (102) 96 97.2 Intake and Output 06/02/18 06/03/18 19:00 07:00 Intake Total 240 ml Balance 240 ml Intake Oral 240 ml # Voids 2 3 # Bowel Movements 1 Laboratory Tests 06/03/18 12:55: Sodium Level 139, Potassium Level 5.3H, Chloride Level 107, Carbon Dioxide Level 25, Anion Gap 8, Blood Urea Nitrogen 30H, Creatinine 1.8H, Estimat Glomerular Filtration Rate 45.7, Glucose Level 73L, Calcium Level 9.0 Height (Feet): 5 Height (Inches): 7.00 Weight (Pounds): 145 General Appearance: confused EENT: normal ENT inspection Neck: normal alignment Cardiovascular: normal peripheral pulses, normal rate, regular rhythm Respiratory/Chest: chest wall non-tender, lungs clear, normal breath sounds Abdomen: normal bowel sounds, non tender, soft Extremities: normal inspection Edema: no edema noted Arm (L), no edema noted Arm (R), no edema noted Leg (L), no edema noted Leg (R), no edema noted Pedal (L), no edema noted Pedal (R), no edema noted Generalized Neurologic: motor weakness Skin: normal pigmentation, warm/dry Jaleel Moon DO Jun 03, 2018 14:22
--- NOTE | 2018-06-04 09:01 | Progress Note ---
DATE: 05/29/2018 SUBJECTIVE: This is a 67-year-old male patient with encephalopathy. He is confused, disorganized, and mood lability worsened by the stress of his medical illness. His cognition appears to have declined below baseline. He also has aggression and altered mental status. That is why his attending physician has requested daily psychiatric consultation. MENTAL STATUS EXAMINATION: This is a 67-year-old male. Appearance is disheveled. Attitude, agitated and irritable. Affect, guarded and restricted. Intellect poor. Mood is depressed and anxious. Motor activity, psychomotor agitation. Attention span is poor. Orientation x2. Speech is pressured. Thought process, disorganized and illogical. Thought content, auditory hallucinations and paranoid delusions. Insight and judgment is poor. DIAGNOSIS: Major depressive disorder, severe and recurrent with psychotic features, rule out dementia with psychosis. PLAN: Treat him with Seroquel 100 mg p.o. q.8 h., Remeron 10 mg nightly, and Ativan 2 mg IM q.4 h. p.r.n. anxiety and agitation. Also, 20 minutes of cognitive behavioral therapy provided to identify this patient's automatic negative thoughts and help him to convert those to positive thoughts provide . Chart reviewed. Discussed with staff. Yelena Roth M.D. DR: SOFIYA JOB#: [id number] CC:
--- NOTE | 2018-06-04 09:02 | Progress Note ---
DATE: 05/29/2018 NOTE: POOR AUDIO TREATING ATTENDING PHYSICIAN: Jaleel Moon D.O. HISTORY: This is a 67-year-old male patient from [facility] agitative behavior. The patient continued to remain confused, disorganized, and . The patient is irritable poor impulse control continues to require at this time . It was recommended that the patient be transferred to . MENTAL STATUS EXAMINATION: The patient is alert and oriented to person. Mood is irritable. Affect is blunted. Thought process is . Poor attention and concentration. Poor insight, judgement, and impulse control. The patient states that he wants to where he wants to go. . DIAGNOSES: Major depressive disorder, mild, recurrent with psychotic features. reality orientation and supportive psychotherapy. thought process . Faye Quintanilla PsyD. DR: BRII JOB#: [id number] CC:
--- NOTE | 2018-06-05 11:28 | Discharge Summary ---
Discharge Summary Discharge Summary _ DATE OF ADMISSION: 05/26/2018 DATE OF DISCHARGE: 06/03/2018 CONSULTANTS: Dr. Munir Bonner [facility] HOSPITAL COURSE: Patient is a 67-year-old male, from [facility], was brought to emergency room due to change in mental status. He was noted to have increased confusion, weakness and had aggressive behavior towards the staff. The patient has not been eating or drinking well. He has medical history significant for dementia, hypertension, BPH, CKD stage IV, CVD with prior stroke. On evaluation at ED, vitals were stable. Blood work showed creatinine of 2.5, BUN 35. Chest x-ray showed hazy by basilar airspace opacities. Possible developing infiltrates. Head CT showed chronic age-related changes. Negative for acute intracranial bleed or mass effect. He was then admitted for evaluation of encephalopathy. He underwent neurological evaluation. He was worked up for treatable causes of encephalopathy. CT was negative for acute bleed or mass effect. He underwent psychiatric evaluation. Patient was confused, disorganized and mood labile. He was diagnosed with major depressive disorder with recurrent psychotic features. He was given Seroquel for agitation and mood lability. He was placed on Remeron daily at bedtime and Ativan when necessary. Patient had kidney injury secondary to dehydration he was given IV fluids. Urine culture showed growth of ESBL. Urine infection was contributing to patient's behavior. Patient has history of substance abuse, on methadone and had been on methadone clinic in the past. Pain management was consulted for adequate pain control. He was given [place]. He was placed on restraints for safety. Behavior was more controlled. He was given PT and OT. He was eventually discharged back to shelter. FINAL DIAGNOSES: Acute encephalopathy secondary to urinary tract infection ESBL Escherichia coli UTI Acute kidney injury on Chronic kidney disease stage IV Dementia with behavioral disturbance History of prostate CA On methadone maintenance therapy Major depressive disorder, severe and recurrent with psychotic features Onychomycosis Hepatitis C Psychosis Weakness Hypertension Thalamic pain syndrome DISPOSITION: Patient was discharged to [facility]. DISCHARGE MEDICATIONS: Refer to Discharge Medication List. I have been assigned to dictate discharge summary on this account, and I was not involved in the patient's management. Yamini Vasquez NP Jun 05, 2018 11:28
== END 2018-06-03 14:34 | DRG 463 ==
LOC: EDBD 09:47 → EMR 11:00 → 4E 13:00 → EDBEDREQ 14:46
DX: N39.0 Urinary tract infection, site not specified (principal); G93.40 Encephalopathy, unspecified; N17.9 Acute kidney failure, unspecified; F33.3 Major depressive disorder, recurrent, severe with psychotic symptoms; F03.91 Unspecified dementia, unspecified severity, with behavioral disturbance; B35.1 Tinea unguium; F19.11 Other psychoactive substance abuse, in remission; F11.20 Opioid dependence, uncomplicated; B96.20 Unspecified Escherichia coli [E. coli] as the cause of diseases classified elsewhere; Z16.12 Extended spectrum beta lactamase (ESBL) resistance; I12.9 Hypertensive chronic kidney disease with stage 1 through stage 4 chronic kidney disease, or unspecified chronic kidney disease; N18.4 Chronic kidney disease, stage 4 (severe); F20.0 Paranoid schizophrenia; Z85.46 Personal history of malignant neoplasm of prostate; B19.20 Unspecified viral hepatitis C without hepatic coma; R53.1 Weakness; G89.0 Central pain syndrome; N40.0 Benign prostatic hyperplasia without lower urinary tract symptoms; Z86.73 Personal history of transient ischemic attack (TIA), and cerebral infarction without residual deficits; R41.0 Disorientation, unspecified
CPT/HCPCS: 36415; 70450; 71045; 80048; 80053; 80061; 81001; 82140; 82306; 82550; 82553; 82607; 82746; 83036; 83605; 83690; 83880; 84443; 84484; 85007; 85025; 85651; 86592; 87040; 87081; 87086; 87181; 93005; 97803; 99285

== ENCOUNTER 2018-06-27 22:29 | Emergency (ER) | payer MEDICARE, OTHER ==
[~2018-06-27] VITALS: Ht 160 cm; Wt 68.0 kg
[~2018-06-27 22:29] MED LIST changes: +ATIVAN1 MG ORAL; +DIVALPROEX SOD500 MG ORAL
--- NOTE | 2018-06-27 23:18 | Emergency Room Report ---
History of Present Illness General Chief Complaint: Skin Rash/Abscess Source: EMS Present Illness HPI Referred from SNF for right shoulder "bump." The patient is demented and cannot contribute meaningfully to history. I do not believe there is any new issue today. He is here frequently. Per SNF: no trauma, no fever, normal po intake. Allergies: Coded Allergies: NO KNOWN ALLERGIES (Verified Allergy, Unknown, 05/05/18) Nursing Documentation-PMH Past Medical History: No History, Except For Hx Hypertension: Yes Hx Cancer: Yes - prostate Hx Gastrointestinal Problems: No Hx Cerebrovascular Accident: Yes Hx Dementia: Yes Hx Alzheimer's Disease: Yes Review of Systems All Other Systems: limited Physical Exam Vital Signs Date Time Temp Pulse Resp B/P (MAP) Pulse Ox O2 Delivery O2 Flow Rate FiO2 06/27/18 22:21 98.4 94 16 108/64 94 Room Air 98.4 General Appearance: well appearing, no apparent distress Head: normocephalic, atraumatic ENT: hearing grossly normal, normal voice Neck: full range of motion, supple Respiratory: no respiratory distress, speaking full sentences Musculoskeletal: no calf tenderness Neurologic: alert, normal gait Psychiatric: mood/affect normal Skin: no rash Medical Decision Making Diagnostic Impression: Primary Impression: Deformity, clavicle ER Course same old healed clavicle fx Chest X-Ray Diagnostic Results Chest X-Ray Diagnostic Results : Chest X-Ray Ordered: Yes # of Views/Limited/Complete: 1 View Indication: Other Interpretation: no consolidation, no effusion, no pneumothorax Impression: No acute disease Last Vital Signs Date Time Temp Pulse Resp B/P (MAP) Pulse Ox O2 Delivery O2 Flow Rate FiO2 06/27/18 22:21 98.4 94 16 108/64 94 Room Air 98.4 Disposition: HOME, SELF-CARE Condition: Stable Gael Vicente M.D. Jun 27, 2018 23:18
--- NOTE | 2018-06-27 23:29 | Diagnostic Imaging Report ---
EXAM: XR Chest, 1 View CLINICAL HISTORY: PAIN TECHNIQUE: Frontal view of the chest. COMPARISON: 05/26/18. FINDINGS: Lungs: Areas of probable mild atelectasis at the lung bases. Large lung volumes. Pleural space: No definite plain film evidence for pneumothorax. Heart: Unremarkable. No cardiomegaly. Mediastinum: Unremarkable. Bones/joints: Degenerative changes of the acromioclavicular joints. Question of an old fracture deformity of the distal aspect of the right clavicle. IMPRESSION: Areas of probable mild atelectasis at the lung bases.
[2018-06-28] VITALS: BP 110/66
== END 2018-06-28 | disposition home or self-care (01) ==
LOC: EDBD 22:29 → EMR 23:34
DX: M95.8 Other specified acquired deformities of musculoskeletal system (principal)
CPT/HCPCS: 71045; 99283

== ENCOUNTER 2019-02-11 21:27 | Inpatient (IN) | payer MEDICARE, OTHER ==
[~2019-02-11] VITALS: Ht 167.6 cm; Wt 49.4 kg
[2019-02-11] MEDS ORDERED: LORazepam Inj 2mg/ml 1ml IM ONE (22:00)
[2019-02-11] MEDS ORDERED: Midazolam 2mg/2ml Inj IVP ONE (22:00)
[2019-02-11 22:12] VITALS: BP 99/69
--- NOTE | 2019-02-11 22:15 | NUR ---
ER Nurse Note: Pt BIBA from SNF c/o ALOC s/p fall that occured 2-3 days ago. Per EMS, the pt's baseline is a&ox1-2 but after fall, pt has been more lethargic. Pt a&ox1 to name, VSS, BP baseline systolic 90s/diastolic 60s, no signs of actue distress. Pupils are fixed, dilated. Blanchable redness to sacral area; no open skin. Pt is incontenent; bed bound. Pt is pulling on lines and tries to get out of bed; ERMD aware and restraints applied. [facility] at pt side[facility]
--- NOTE | 2019-02-11 23:00 | NUR ---
ER Nurse Note: Park cath attempted by primary and secondary nurse; unable to get urine due to retention. Charge nurse and ERMD aware. Condom cath is applied; no urine produced. IV established by secondary nurse; all orders collected. IV site clean, intact. Chest x-ray taken; CT of head pending. All safety measures met; will continue to montior.
[2019-02-11 23:31] LABS: BASOPHILS % (AUTO) 0.3 % (0.0-2.0); EOSINOPHILS % (AUTO) 1.5 % (0.0-3.0); HEMOGLOBIN 15.5 G/DL (14.2-18.0); LYMPHOCYTES % (AUTO) 41.3 % (20.0-45.0); MEAN CORPUSCULAR VOLUME 95 FL (80-99); MONOCYTES % (AUTO) 6.3 % (1.0-10.0); NEUTROPHILS % (AUTO) 50.6 % (45.0-75.0); PLATELET COUNT 190 K/UL (150-450); RED BLOOD COUNT 4.96 M/UL (4.70-6.10); RED CELL DISTRIBUTION WIDTH 12.9 % (11.6-14.8); WHITE BLOOD COUNT 9.6 K/UL (4.8-10.8)
[2019-02-11 23:44] LABS: ANION GAP 11 mmol/L (5-15); BLOOD UREA NITROGEN 99 mg/dL (7-18); CALCIUM 9.2 MG/DL (8.5-10.1); CARBON DIOXIDE 28 MMOL/L (21-32); CHLORIDE 115 MMOL/L (98-107); CREATININE 3.4 MG/DL (0.55-1.30); POTASSIUM 4.7 MMOL/L (3.5-5.1); SODIUM 154 MMOL/L (136-145)
[2019-02-11 23:55] LABS: ALANINE AMINOTRANSFERASE 30 U/L (12-78); ALBUMIN 3.2 G/DL (3.4-5.0); ALBUMIN/GLOBULIN RATIO 0.6 (1.0-2.7); ALKALINE PHOSPHATASE 98 U/L (46-116); ASPARTATE AMINO TRANSFERASE 43 U/L (15-37); BILIRUBIN,TOTAL 0.6 MG/DL (0.2-1.0); CREATINE KINASE 63 U/L (26-308)
[2019-02-12] VITALS (7 sets, daily range): BP systolic 100–136; BP diastolic 70–83
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
--- NOTE | 2019-02-12 01:45 | NUR ---
ER Nurse Note: Report given to KERMIT Swift in med surg for continuity of care. Pt VSS, no signs of distress, reassesed by ERMD, has a gag reflex. All belongings taken with pt.
--- NOTE | 2019-02-12 01:50 | NUR ---
NURSE NOTES: Pt received from ED from RNLeeanne. Pt was sleeping, appeared very drowsy, arousable to light touch, (was given versed prior to arrival for CT). oriented to name only. Had been on soft bilateral wrist restraints in ED but patient was transferred and they are not applied-( would need to receive new orders and is not combative at this time due to sedation) Awaiting orders from MD Wright. Pt in no acute distress, even unlabored respirations. Bed in lowest position locked, bed alarm on and side rails x2. IV site Left AC -site patent, asymptomatic 22 g. Belongings signed and present at bedside. at bedside.
[2019-02-12 04:12] LABS: APPEARANCE,URINE CLOUDY; BILIRUBIN, URINE NEGATIVE (NEGATIVE); COLOR,URINE PALE YELLOW; GLUCOSE, URINE (UA) NEGATIVE (NEGATIVE); KETONES,URINE NEGATIVE (NEGATIVE); LEUKOCYTE ESTERASE ,URINE 3+ (NEGATIVE); NITRITE,URINE NEGATIVE (NEGATIVE); PH,URINE 9 (4.5-8.0); PROTEIN,URINE 3+ (NEGATIVE); UROBILINOGEN,URINE NORMAL MG/DL (0.0-1.0)
--- NOTE | 2019-02-12 07:30 | NUR ---
NURSE NOTES: Received pt from KERMIT FLANAGAN. pt is new admission. pt is confused and orient x1. pt is in RA. no SOB or acute respiratory distress noted. pt has condom cath in place is running well. pt has intact iv access RFA 20G is running well. pt's is on bed side. all needs attended, bed is locked and is in the lowest position, call light within easy reach. will continue to monitor.
--- NOTE | 2019-02-12 08:00 | NUR ---
HAND-OFF: Report given to KERMIT Figueroa.
--- NOTE | 2019-02-12 08:10 | NUR ---
NURSE NOTES:WOUND CARE NOTES:Pt presented with DTPI sacrum partially opened at sacrococcygeal area which is pink,with surrounding darker skin tone that is indurated with red tinged margins.Pt agitated and flinches when area palpated. (L)5.5cm x (W)5cm. DTPI R trochanter. Base of wound has darker skin tone that is fluctuant centrally with indurated borders.(L)4cm x (W)3.5cm. Non-blanchable erythema with fluctuance L heel . Periwound is blanchable. R heel boggy but blanchable. Pt's spouse at bedside and discussed pressure injuries .Spouse educated of possibility of DTPI's becoming open wounds and discussed comorbidities which can contribute to further skin decline such as pt being agitated and restless in bed and poor nutritional status. Informed of interventions being implemented to prevent further skin breakdown. Tx.Plan:Apply Cavilon Skin Barrier to R trochanter.Cover with Optifoam drsg. Change every 7 days and prn. Apply Triad Paste to Sacral wound. Cover with Optifoam drsg. Change every 3 days and prn. Apply Triad to groin and scrotal areas with each perineal care. Apply Cavilon Skin Barrier to both heels. Cover each heel with Optifoam drsg. Change every 7 days and prn. APM/LEAH Mattress. Off-load heels with pillow. Reposition at least every 2hours or as tolerated.
[2019-02-12] MEDS ORDERED: D5 1/2NS 1,000 ML IV SCH (08:15)
[2019-02-12] MEDS ORDERED: Mylanta II UD 30ml ORAL PRN (08:15)
[2019-02-12] MEDS ORDERED: Zolpidem 5mg tab ORAL PRN (08:15)
[2019-02-12] MEDS ORDERED: Miralax 17gm pkt ORAL PRN (08:15)
--- NOTE | 2019-02-12 08:47 | NUR ---
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 ACUTE RENAL FAILURE VS: BP 99/69, P 92, T 98.1, RR 16, SpO2 94 Na 115, BUN 99, CR 3.4, URINE BLOOD 5+, URINE PROTEIN 3+, URINE BACTERIA MANY IS:MIDAZOLAM 1mg IVP LORAZEPAM 1mg IM NS x1L IV ZOFRAN 4mg IVP ADMITTED TO MED/SURG DCP: RETURN TO [facility]
--- NOTE | 2019-02-12 08:52 | Cardiac Electrophysiology PN ---
Subjective Subjective [id number] Objective Last 24 Hour Vital Signs Date Time Temp Pulse Resp B/P (MAP) Pulse Ox O2 Delivery O2 Flow Rate FiO2 02/12/19 08:00 98.5 78 18 134/76 (95) 97 02/12/19 04:00 98.0 79 17 136/83 (100) 96 02/12/19 02:00 Room Air 02/12/19 02:00 Room Air 02/12/19 01:45 98.2 88 17 100/77 98 Room Air 02/12/19 00:46 98.2 88 17 100/77 98 Room Air 02/11/19 22:12 92 16 Room Air 02/11/19 22:12 98.1 74 16 99/69 94 Room Air 02/11/19 21:30 98.1 92 16 99/69 94 Room Air Intake and Output 02/11/19 02/12/19 19:00 07:00 Intake Total 1000 ml Output Total 300 ml Balance 700 ml Intake IV Total 1000 ml Output Urine Total 300 ml # Voids 1 Laboratory Tests Test 02/11/19 23:19 02/12/19 03:20 White Blood Count 9.6 K/UL (4.8-10.8) Red Blood Count 4.96 M/UL (4.70-6.10) Hemoglobin 15.5 G/DL (14.2-18.0) Hematocrit 47.0 % (42.0-52.0) Mean Corpuscular Volume 95 FL (80-99) Mean Corpuscular Hemoglobin 31.2 PG (27.0-31.0) H Mean Corpuscular Hemoglobin Concent 33.0 G/DL (32.0-36.0) Red Cell Distribution Width 12.9 % (11.6-14.8) Platelet Count 190 K/UL (150-450) Mean Platelet Volume 6.9 FL (6.5-10.1) Neutrophils (%) (Auto) 50.6 % (45.0-75.0) Lymphocytes (%) (Auto) 41.3 % (20.0-45.0) Monocytes (%) (Auto) 6.3 % (1.0-10.0) Eosinophils (%) (Auto) 1.5 % (0.0-3.0) Basophils (%) (Auto) 0.3 % (0.0-2.0) Prothrombin Time 11.0 SEC (9.30-11.50) Prothromb Time International Ratio 1.0 (0.9-1.1) Activated Partial Thromboplast Time 25 SEC (23-33) Sodium Level 154 MMOL/L (136-145) H Potassium Level 4.7 MMOL/L (3.5-5.1) Chloride Level 115 MMOL/L (98-107) H Carbon Dioxide Level 28 MMOL/L (21-32) Anion Gap 11 mmol/L (5-15) Blood Urea Nitrogen 99 mg/dL (7-18) H Creatinine 3.4 MG/DL (0.55-1.30) H Estimat Glomerular Filtration Rate 21.8 mL/min (>60) Glucose Level 74 MG/DL (74-106) Calcium Level 9.2 MG/DL (8.5-10.1) Total Bilirubin 0.6 MG/DL (0.2-1.0) Aspartate Amino Transf (AST/SGOT) 43 U/L (15-37) H Alanine Aminotransferase (ALT/SGPT) 30 U/L (12-78) Alkaline Phosphatase 98 U/L (46-116) Total Creatine Kinase 63 U/L (26-308) Troponin I 0.000 ng/mL (0.000-0.056) Pro-B-Type Natriuretic Peptide 57 pg/mL (0-125) Total Protein 8.4 G/DL (6.4-8.2) H Albumin 3.2 G/DL (3.4-5.0) L Globulin 5.2 g/dL Albumin/Globulin Ratio 0.6 (1.0-2.7) L Urine Color Pale yellow Urine Appearance Cloudy Urine pH 9 (4.5-8.0) Urine Specific [place] 1.015 (1.005-1.035) Urine Protein 3+ (NEGATIVE) H Urine Glucose (UA) Negative (NEGATIVE) Urine Ketones Negative (NEGATIVE) Urine Blood 5+ (NEGATIVE) H Urine Nitrite Negative (NEGATIVE) Urine Bilirubin Negative (NEGATIVE) Urine Urobilinogen Normal MG/DL (0.0-1.0) Urine Leukocyte Esterase 3+ (NEGATIVE) H Urine RBC Tntc /HPF (0 - 0) H Urine WBC Tntc /HPF (0 - 0) H Urine Squamous Epithelial Cells None /LPF (NONE/OCC) Urine Bacteria Many /HPF (NONE) H Microbiology Date/Time Source Procedure Growth Status 02/11/19 23:19 Rectum Received Bryce Ba MD Feb 12, 2019 08:52
[2019-02-12] MEDS: Depakote 500mg tab ORAL SCH ×2 (08:55→21:25)
[2019-02-12] MEDS: Docusate 100mg cap ORAL SCH ×2 (08:55→17:24)
[2019-02-12] MEDS: Heparin 5000 units/ml inj SUBQ SCH ×2 (08:55→21:25)
[2019-02-12] MEDS ORDERED: Heparin 5000 units/ml inj SUBQ SCH (09:00)
[2019-02-12 09:36] LABS: ALANINE AMINOTRANSFERASE 26 U/L (12-78); ALBUMIN 2.9 G/DL (3.4-5.0); ALBUMIN/GLOBULIN RATIO 0.6 (1.0-2.7); ALKALINE PHOSPHATASE 92 U/L (46-116); ANION GAP 9 mmol/L (5-15); ASPARTATE AMINO TRANSFERASE 39 U/L (15-37); BILIRUBIN,TOTAL 0.6 MG/DL (0.2-1.0); BLOOD UREA NITROGEN 92 mg/dL (7-18); CARBON DIOXIDE 28 MMOL/L (21-32); CHLORIDE 118 MMOL/L (98-107); CREATINE KINASE 83 U/L (26-308); CREATININE 3.1 MG/DL (0.55-1.30); PHOSPHORUS 3.4 MG/DL (2.5-4.9); POTASSIUM 4.3 MMOL/L (3.5-5.1); SODIUM 155 MMOL/L (136-145)
[2019-02-12] MEDS: cefTRIAXone 1 GM in D5W 55 ML IVPB SCH (10:13)
--- NOTE | 2019-02-12 11:01 | Diagnostic Imaging Report ---
Indication: Head trauma headache Technique: Contiguous 5 mm thick transaxial imaging of the head obtained in a Siemens Sensation [address] scanner. Soft tissue and bone windows generated. Automatic Exposure Control was utilized. Total Dose length Product (DLP): 1474.[address] Dose Index Volume (CTDIvol): 70.38 mGy Comparison: 05/28/2018 Findings: There is mild prominence of the ventricles, basal cisterns, and cerebral sulci consistent with atrophy. Mild, nonspecific, white matter hypoattenuation is noted throughout the brain consistent with chronic small vessel disease. There is no midline shift, edema, acute hemorrhage, mass effect, or abnormal extra-axial fluid collections. Bones and extra osseous soft tissues are unremarkable. Impression: No acute intracranial bleed, mass effect or edema. Mild atrophy of the brain. Nonspecific white matter hypoattenuation probably due to chronic small vessel disease. [facility] has communicated the preliminary results to the Emergency Department. Their findings are largely concordant with this report. The CT scanner at [facility] is accredited by the [employer] and the scans are performed using dose optimization techniques as appropriate to a performed exam including Automatic Exposure control.
--- NOTE | 2019-02-12 11:58 | Diagnostic Imaging Report ---
Indication: Dyspnea Comparison: 06/27/2018 A single view chest radiograph was obtained. Findings: Cardiomediastinal appearance is within normal limits for age. The lungs are clear. Pulmonary vascularity is appropriate. The diaphragmatic contour is smooth and costophrenic angles are sharp. No pleural effusions are identified. The bones are osteopenic. Impression: No acute findings
[2019-02-12 14:31] LABS: APPEARANCE,URINE CLOUDY; BILIRUBIN, URINE NEGATIVE (NEGATIVE); COLOR,URINE PALE YELLOW; GLUCOSE, URINE (UA) NEGATIVE (NEGATIVE); KETONES,URINE NEGATIVE (NEGATIVE); LEUKOCYTE ESTERASE ,URINE 3+ (NEGATIVE); NITRITE,URINE NEGATIVE (NEGATIVE); PH,URINE 9 (4.5-8.0); PROTEIN,URINE 3+ (NEGATIVE); UROBILINOGEN,URINE NORMAL MG/DL (0.0-1.0)
--- NOTE | 2019-02-12 14:47 | NUR ---
RD ASSESSMENT & RECOMMENDATIONS SEE CARE ACTIVITY FOR COMPLETE ASSESSMENT DAILY ESTIMATED NEEDS: Needs based on ARF, UNDERWEIGHT/ 49kg 30-35 kcals/kg 8943-0156 total kcals 0.8-1.1 g protein/kg 39-54 g total protein 25-30 mL/kg 6056-5946 total fluid mLs NUTRITION DIAGNOSIS: Increased kcal/prot needs R/T recent wt loss, underweight status as evidenced by possible significant wt loss of ~30lbs/ 21% in 8 months. pt @ 77% IBW w/ underweight BMI per guidelines. * Altered nutrition related lab values R/T ARF, volume deficit as evidenced by elev BUN (92), elev creat (3.1), elev Na (155). CURRENT DIET:RENAL, PUREED W/ THIN PO DIET RECOMMENDATIONS: LIBERALIZED REGULAR DIET/ texture per ELECTROCHEMIST + Ensure Enlive TID w/ meals ADDITIONAL RECOMMENDATIONS: 1) REcalibrate bed scale for accurate CBW 2) ELECTROCHEMIST evaluation for appropriate texture 3) Consider appetite stimulant -FTT dx, prolonged poor PO intake - recent significant wt loss 4) Rec wound eval- wound photos of buttocks : Rec MVI x 1 and Efrain 1ptk BID for skin integrity 5) Monitor renal fxn and lytes- ARF dx, on IVF at this time
--- NOTE | 2019-02-12 14:53 | NUR ---
Social Work This Sw followed up with patients spouse, Telma (not legally ), who is currently making all of the decisions for patient. Patient is confused, has a history of anxiety and agitation. This SW met with patient who appears calm at this time. Telma expressed some concerns with patient living at [facility], in [place] (too far for her to visit and he is around other combative patients). Patient has been at several other facilities in the past ([facility], [facility], [facility]). Spouse is either not happy with these facilities or they are unable to manage patients behaviors. Spouse currently is requesting for patient to discharge to another facility (does not want patient to return to [facility]). This Sw advised avoidance of multiple moves, will discharge to the facility that has an open bed and can care for the patient (and his behaviors). Spouse agreeable with returning to [facility], while believing she will hire a 1:1 caregiver to be with him there. This Sw also discussed end-of-life concerns (recommended Hospice, as needed). Spouse stating she has contemplated hospice for patient; will continue to discuss this with M.D as well. Patient has a daughter (Marc), while spouse stating she has not been in contact with patient for the past five/six years. Spouse explained she has been looking at the following facilities: [facility], [facility] [place], [place] facility. This SW reiterated with spouse regarding plans to discharge to an accepting facility.
[2019-02-12] MEDS: OLANZapine 2.5mg tab ORAL SCH ×2 (14:55→17:24)
--- NOTE | 2019-02-12 15:30 | Consultation ---
Consult Note Consult Note asked to evaluate by Dr Moon for renal failure Past Medical History: No Stated History Hx Hypertension: Yes Hx Cancer: Yes - prostate Hx Cerebrovascular Accident: Yes Hx Dementia: Yes Hx Alzheimer's Disease: Yes in ER awan could not be passed Patient agitated . Assessment/Plan Acute encephalopathy Psych history & Paranoia h/o Prostate cancer CKD (chronic kidney disease), superimposed ARF / Dehydration h/o Hepatitis C h/o Dementia D5w Hydrate monitor renal parameters keep BP and BS in check per orders Tanner Grant MD Feb 12, 2019 15:30
--- NOTE | 2019-02-12 16:37 | Consultation ---
History of Present Illness General Chief Complaint: Altered Level of Consciousness Present Illness Allergies: Uncoded Allergies: anesthetics unspecified (Allergy, Mild, 02/12/19) sulfonamides (Allergy, Mild, rash, 02/12/19) Medication History Scheduled Ampicillin (Ampicillin Trihydrate), 500 MG ORAL Q6HR, (Reported) Aspirin (Ann Chewable), 81 MG PO DAILY, (Reported) Divalproex Sodium (Divalproex Sodium), 500 MG ORAL TID Lorazepam* (Ativan*), 1 MG ORAL BEDTIME, (Reported) Metoprolol Tartrate (Metoprolol Tartrate), 25 MG ORAL Q12HR Mirtazapine* (Remeron*), 15 MG ORAL BEDTIME, (Reported) Quetiapine Fumarate (Seroquel), 12.5 MG ORAL THREE TIMES A DAY, (Reported) Quetiapine Fumarate* (Seroquel*), 50 MG ORAL Q8HR Tamsulosin HCl (Flomax), 0.4 MG ORAL BEDTIME Scheduled PRN Chlorpromazine (Chlorpromazine HCl), 25 MG PO Q6HR PRN for Agitation, (Reported) Haloperidol* (Haldol*), 5 MG ORAL EVERY 4 HOURS PRN for Agitation, (Reported) Phenazopyridine Hcl* (Pyridium*), 100 MG ORAL DAILY PRN for Per rx protocol, ( Reported) Miscellaneous Medications Unable to Obtain Medications (Unable To Obtain Meds), (Reported) Patient History Healthcare decision maker Kateryna Roth Resuscitation status Advanced Directive on File Past Medical/Surgical History Past Medical/Surgical History: (1) Hepatitis C (2) HTN (hypertension) (3) Cerebral vascular disease (4) CKD (chronic kidney disease) (5) Dementia, vascular (6) Prostatitis (7) Methadone maintenance therapy patient (8) Prostate cancer Physical Exam Last 24 Hour Vital Signs Date Time Temp Pulse Resp B/P (MAP) Pulse Ox O2 Delivery O2 Flow Rate FiO2 02/12/19 12:00 97.5 83 18 128/73 (91) 96 02/12/19 09:00 Room Air 02/12/19 08:00 98.5 78 18 134/76 (95) 97 02/12/19 04:00 98.0 79 17 136/83 (100) 96 02/12/19 02:00 Room Air 02/12/19 02:00 Room Air 02/12/19 01:45 98.2 88 17 100/77 98 Room Air 02/12/19 00:46 98.2 88 17 100/77 98 Room Air 02/11/19 22:12 92 16 Room Air 02/11/19 22:12 98.1 74 16 99/69 94 Room Air 02/11/19 21:30 98.1 92 16 99/69 94 Room Air Intake and Output 02/11/19 02/12/19 19:00 07:00 Intake Total 1000 ml Output Total 300 ml Balance 700 ml Intake IV Total 1000 ml Output Urine Total 300 ml # Voids 1 Laboratory Tests Test 02/11/19 23:19 02/12/19 03:20 02/12/19 08:25 02/12/19 13:50 White Blood Count 9.6 K/UL (4.8-10.8) Red Blood Count 4.96 M/UL (4.70-6.10) Hemoglobin 15.5 G/DL (14.2-18.0) Hematocrit 47.0 % (42.0-52.0) Mean Corpuscular Volume 95 FL (80-99) Mean Corpuscular Hemoglobin 31.2 PG (27.0-31.0) H Mean Corpuscular Hemoglobin Concent 33.0 G/DL (32.0-36.0) Red Cell Distribution Width 12.9 % (11.6-14.8) Platelet Count 190 K/UL (150-450) Mean Platelet Volume 6.9 FL (6.5-10.1) Neutrophils (%) (Auto) 50.6 % (45.0-75.0) Lymphocytes (%) (Auto) 41.3 % (20.0-45.0) Monocytes (%) (Auto) 6.3 % (1.0-10.0) Eosinophils (%) (Auto) 1.5 % (0.0-3.0) Basophils (%) (Auto) 0.3 % (0.0-2.0) Prothrombin Time 11.0 SEC (9.30-11.50) Prothromb Time International Ratio 1.0 (0.9-1.1) Activated Partial Thromboplast Time 25 SEC (23-33) Sodium Level 154 MMOL/L (136-145) H 155 MMOL/L (136-145) H Potassium Level 4.7 MMOL/L (3.5-5.1) 4.3 MMOL/L (3.5-5.1) Chloride Level 115 MMOL/L (98-107) H 118 MMOL/L (98-107) H Carbon Dioxide Level 28 MMOL/L (21-32) 28 MMOL/L (21-32) Anion Gap 11 mmol/L (5-15) 9 mmol/L (5-15) Blood Urea Nitrogen 99 mg/dL (7-18) H 92 mg/dL (7-18) H Creatinine 3.4 MG/DL (0.55-1.30) H 3.1 MG/DL (0.55-1.30) H Estimat Glomerular Filtration Rate 21.8 mL/min (>60) 24.4 mL/min (>60) Glucose Level 74 MG/DL (74-106) 91 MG/DL (74-106) Calcium Level 9.2 MG/DL (8.5-10.1) 9.0 MG/DL (8.5-10.1) Total Bilirubin 0.6 MG/DL (0.2-1.0) 0.6 MG/DL (0.2-1.0) Aspartate Amino Transf (AST/SGOT) 43 U/L (15-37) H 39 U/L (15-37) H Alanine Aminotransferase (ALT/SGPT) 30 U/L (12-78) 26 U/L (12-78) Alkaline Phosphatase 98 U/L (46-116) 92 U/L (46-116) Total Creatine Kinase 63 U/L (26-308) 83 U/L (26-308) Troponin I 0.000 ng/mL (0.000-0.056) Pro-B-Type Natriuretic Peptide 57 pg/mL (0-125) Total Protein 8.4 G/DL (6.4-8.2) H 7.8 G/DL (6.4-8.2) Albumin 3.2 G/DL (3.4-5.0) L 2.9 G/DL (3.4-5.0) L Globulin 5.2 g/dL 4.9 g/dL Albumin/Globulin Ratio 0.6 (1.0-2.7) L 0.6 (1.0-2.7) L Urine Color Pale yellow Pale yellow Urine Appearance Cloudy Cloudy Urine pH 9 (4.5-8.0) 9 (4.5-8.0) Urine Specific [place] 1.015 (1.005-1.035) 1.010 (1.005-1.035) Urine Protein 3+ (NEGATIVE) H 3+ (NEGATIVE) H Urine Glucose (UA) Negative (NEGATIVE) Negative (NEGATIVE) Urine Ketones Negative (NEGATIVE) Negative (NEGATIVE) Urine Blood 5+ (NEGATIVE) H 5+ (NEGATIVE) H Urine Nitrite Negative (NEGATIVE) Negative (NEGATIVE) Urine Bilirubin Negative (NEGATIVE) Negative (NEGATIVE) Urine Urobilinogen Normal MG/DL (0.0-1.0) Normal MG/DL (0.0-1.0) Urine Leukocyte Esterase 3+ (NEGATIVE) H 3+ (NEGATIVE) H Urine RBC Tntc /HPF (0 - 0) H 15-20 /HPF (0 - 0) H Urine WBC Tntc /HPF (0 - 0) H 40-60 /HPF (0 - 0) H Urine Squamous Epithelial Cells None /LPF (NONE/OCC) None /LPF (NONE/OCC) Urine Bacteria Many /HPF (NONE) H Many /HPF (NONE) H Osmolality 358 mOsm/kg (297-317) H Uric Acid 10.6 MG/DL (2.6-7.2) H Phosphorus Level 3.4 MG/DL (2.5-4.9) Magnesium Level 2.2 MG/DL (1.8-2.4) Free Thyroxine 0.80 NG/DL (0.76-1.46) Free Triiodothyronine 1.5 pg/mL (2.3-4.2) L Cortisol Pending Urine Eosinophils None seen (NONE SEEN) Urine Osmolality 481 mOsm/kg (429-449) H Urine Random Sodium 57 mmol/L (20-110) Urine Random Chloride 92 mmol/L (55-125) Urine Potassium Timed 24 mmol/L (12-62) Microbiology Date/Time Source Procedure Growth Status 02/11/19 23:19 Rectum Received Height (Feet): 5 Height (Inches): 6.00 Weight (Pounds): 109 Medications Current Medications Medications (Trade) Dose Ordered Sig/Lucie Route PRN Reason Start Time Stop Time Status Last Admin Dose Admin Acetaminophen (Tylenol) 650 mg Q4H PRN ORAL Mild Pain/Temp > 100.5 02/12/19 08:15 03/14/19 08:14 Ceftriaxone Sodium 1 gm/ Dextrose 55 ml @ 110 mls/hr Q24H IVPB 02/12/19 10:00 02/19/19 09:59 02/12/19 10:13 Clonidine HCl (Catapres Tab) 0.1 mg Q4H PRN ORAL For High Blood Pressure 02/12/19 08:15 03/14/19 08:14 Dextrose 1,000 ml @ 100 mls/hr Q10H IV 02/12/19 16:00 03/14/19 15:59 02/12/19 16:20 Dextrose (Dextrose 50%) 25 ml Q30M PRN IV Hypoglycemia 02/12/19 08:15 03/14/19 08:14 Dextrose (Dextrose 50%) 50 ml Q30M PRN IV Hypoglycemia 02/12/19 08:15 03/14/19 08:14 Divalproex Sodium (Depakote) 500 mg EVERY 12 HOURS ORAL 02/12/19 09:00 03/14/19 08:59 02/12/19 08:55 Docusate Sodium (Colace) 100 mg TWICE A DAY ORAL 02/12/19 09:00 03/14/19 08:59 02/12/19 08:55 Haloperidol (Haldol) 5 mg Q6H PRN ORAL Agitation 02/12/19 08:30 03/14/19 08:29 02/12/19 16:20 Heparin Sodium (Porcine) (Heparin 5000 units/ml) 5,000 units EVERY 12 HOURS SUBQ 02/12/19 09:00 03/14/19 08:59 02/12/19 08:55 Lorazepam (Ativan 2mg/ml 1ml) 0.5 mg Q4H PRN IV For Anxiety 02/12/19 08:15 02/19/19 08:14 Morphine Sulfate (Morphine Sulfate) 1 mg Q4H PRN IVP For Pain 02/12/19 08:15 02/19/19 08:14 Olanzapine (ZyPREXA) 2.5 mg TID ORAL 02/12/19 14:00 03/14/19 13:59 02/12/19 14:55 Ondansetron HCl (Zofran) 4 mg Q6H PRN IVP Nausea & Vomiting 02/12/19 08:15 03/14/19 08:14 Polyethylene Glycol (Miralax) 17 gm HSPRN PRN ORAL Constipation 02/12/19 08:15 03/14/19 08:14 Tamsulosin HCl (Flomax) 0.4 mg BID ORAL 02/12/19 18:00 03/14/19 17:59 Zolpidem Tartrate (Ambien) 5 mg HSPRN PRN ORAL Insomnia 02/12/19 08:15 02/19/19 08:14 Assessment/Plan Problem List: (1) Acute encephalopathy ICD Codes: G93.40 - Encephalopathy, unspecified SNOMED: 09541336, 029560657 (2) Sepsis ICD Codes: A41.9 - Sepsis SNOMED: 52760121 (3) ATN (acute tubular necrosis) ICD Codes: N17.0 - Acute kidney failure with tubular necrosis SNOMED: 98630283 (4) Pyelonephritis ICD Codes: N12 - Tubulo-interstitial nephritis, not specified as acute or chronic SNOMED: 83381733 (5) Prostate cancer ICD Codes: C61 - Prostate cancer SNOMED: 239777136 (6) CKD (chronic kidney disease) ICD Codes: N18.9 - CKD (chronic kidney disease) SNOMED: 137738472 (7) Cerebral vascular disease ICD Codes: I67.9 - Cerebrovascular disease, unspecified SNOMED: 37848836 (8) Methadone maintenance therapy patient ICD Codes: F11.20 - Methadone maintenance therapy patient SNOMED: 359394706 (9) Dementia ICD Codes: F03.90 - Dementia SNOMED: 50994033 (10) HTN (hypertension) ICD Codes: I10 - Essential (primary) hypertension SNOMED: 98522494 (11) Hepatitis C ICD Codes: B19.20 - Unspecified viral hepatitis C without hepatic coma SNOMED: 72881301 German Mooney MD Feb 12, 2019 16:37
[2019-02-12] MEDS: Tamsulosin 0.4mg cap ORAL SCH (17:24)
--- NOTE | 2019-02-12 19:06 | History & Physical ---
History and Physical History & Physicial Dictated for Int Med-Dr Wright no. [id number]. Alton Marshall MD Feb 12, 2019 19:06
--- NOTE | 2019-02-12 19:36 | NUR ---
HAND-OFF: Report given to KERMIT FLANAGAN.
--- NOTE | 2019-02-12 19:38 | NUR ---
NURSE NOTES: Pt is lying supine resting at this time. Pt is confused and oriented x1 to name only. pt is on RA. no SOB, breathing even and unlabored. pt has condom cath in place is running well. pt has IV access but is sluggish and slightly reddened. Day shift had difficulty inserting a new IV. Will try on this shift TYRONE.l. pt's is at bed side. all needs attended, bed is locked and is in the lowest position, bed alarm hr consultant light within reach. Bilateral soft wrist restraints for pulling out lines and inability to orient as well as becoming aggressive and unable to direct to not pull lines out. Will continue to monitor skin integrity. Skin underneath restraints is intact and pulses present. will continue to monitor.
--- NOTE | 2019-02-12 20:15 | Consultation ---
DATE OF CONSULTATION: 02/12/2019 CARDIOLOGY CONSULTATION CONSULTING PHYSICIAN: Bryce Ba M.D. REASON FOR CONSULTATION: Altered level of consciousness and hypotension. HISTORY OF PRESENT ILLNESS: The patient is an elderly gentleman with history of hypertension, prostate cancer, dementia, and history of CVA, who was brought in from [facility] for altered mental status. There was also concern about a spot on the right hip and then problem in the skin. The patient was admitted. Blood pressure was 99/60 with a pulse of 92. At the time of my evaluation, the patient is unable to communicate, in restraints. REVIEW OF SYSTEMS: Cannot be obtained. PAST MEDICAL HISTORY: 1. Hypertension. 2. Dementia. 3. Chronic kidney disease. 4. History of urinary tract infection. FAMILY HISTORY: Noncontributory. SOCIAL HISTORY: He lives in [facility]. Does not smoke or drink alcohol. PHYSICAL EXAMINATION: VITAL SIGNS: Blood pressure was 99/60, pulse 92. HEAD AND NECK: Shows no JVD. LUNGS: Coarse rhonchi. CARDIOVASCULAR: Shows regular S1 and S2 with no gallop or murmur. ABDOMEN: Soft. EXTREMITIES: No pitting edema. DIAGNOSTIC DATA: CT of the head showed no acute intracranial hemorrhage. His EKG showed normal sinus rhythm, normal electrocardiogram. ASSESSMENT AND PLAN: 1. Hypotension in a patient with history of hypertension. Blood pressure is improved. The patient is already on IV antibiotic. Place him on p.r.n. clonidine. Get an echocardiogram to evaluate for ejection fraction and wall motion abnormality. 2. History of dementia. Head CT is negative. 3. Renal failure and hypernatremia with sodium 154 with a BUN of 99, creatinine 3.4. It is likely due to dehydration. The patient will be given IV fluids. 4. Dehydration. 5. Negative troponin. Thank you very much, Dr. Wright, for allowing me to participate in the care of this patient. Please do not hesitate to contact me for any questions regarding my evaluation. The case was discussed with the patient's as well as nurse and Dr. Wright. Bryce Ba M.D. DR: KIMMIE JOB#: [id number] CC:
--- NOTE | 2019-02-12 21:45 | Initial Psychiatric Evaluation ---
Psychiatry Consultation Psychiatry Consultation Chief Complaint: Altered Level of Consciousness History of Present Illness: 68-year-old male, who presents with a chief complaint of altered mental status. the pt is disorganized and agitated the pt is unable to provide hx. the pt has memory impairment. the pt is delusional and his tp is tangential. waxing and waning of consciousness Allergies: Uncoded Allergies: anesthetics unspecified (Allergy, Mild, 02/12/19) sulfonamides (Allergy, Mild, rash, 02/12/19) Past Psychiatric History: psychotic do no sa no ph Substance Abuse History: opioids Medication History Scheduled Ampicillin (Ampicillin Trihydrate), 500 MG ORAL Q6HR, (Reported) Aspirin (Ann Chewable), 81 MG PO DAILY, (Reported) Divalproex Sodium (Divalproex Sodium), 500 MG ORAL TID Lorazepam* (Ativan*), 1 MG ORAL BEDTIME, (Reported) Metoprolol Tartrate (Metoprolol Tartrate), 25 MG ORAL Q12HR Mirtazapine* (Remeron*), 15 MG ORAL BEDTIME, (Reported) Quetiapine Fumarate (Seroquel), 12.5 MG ORAL THREE TIMES A DAY, (Reported) Quetiapine Fumarate* (Seroquel*), 50 MG ORAL Q8HR Tamsulosin HCl (Flomax), 0.4 MG ORAL BEDTIME Scheduled PRN Chlorpromazine (Chlorpromazine HCl), 25 MG PO Q6HR PRN for Agitation, (Reported) Haloperidol* (Haldol*), 5 MG ORAL EVERY 4 HOURS PRN for Agitation, (Reported) Phenazopyridine Hcl* (Pyridium*), 100 MG ORAL DAILY PRN for Per rx protocol, ( Reported) Miscellaneous Medications Unable to Obtain Medications (Unable To Obtain Meds), (Reported) Patient History Limited by: medical condition History Provided By: Patient, Family Member, Medical Record, PMD Objective Data Height (Feet): 5 Height (Inches): 6.00 Weight (Pounds): 109 Appearance: disheveled Behavior Mannerisms: good eye contact Affect: blunted Mood: irritable, anxious Thought Process: illogical, tangential, confusion Thought Content: delusions (specify), paranoia Suicidal Ideation: not present Assessment/Plan Problem List: (1) Dementia with behavioral disturbance ICD Codes: F03.91 - Unspecified dementia with behavioral disturbance SNOMED: 7550160004841 Assessment/Plan: Mckenna Lewis MD Feb 12, 2019 21:45
--- NOTE | 2019-02-12 21:55 | Cardiology Report ---
APPROVED REPORT EKG Measurement Heart [id number] [place] [id number] [id number] Sinus tachycardia with occasional premature ventricular complexes Otherwise normal ECG
[2019-02-12] MEDS: Morphine Sulfate 2mg/ml Inj(IV/IM USE ONLY) IVP PRN (22:12)
--- NOTE | 2019-02-12 22:30 | History and Physical Report ---
DATE OF ADMISSION: 02/11/2019 WRAPPER HAND: German Mooney M.D. CHIEF COMPLAINT: Failure to thrive. BRIEF HISTORY: This is a 68-year-old male from [facility] presents to [facility] with the above-mentioned diagnoses. The patient is lethargic in bed, sleepy, confused, evaluated in the ER, and admitted to medical floor for further treatment. Currently, calm, confused, sleeping, not talking much. PAST MEDICAL HISTORY: Includes chronic obstructive pulmonary disease, hypertension, acute renal failure, peripheral vascular disease, BPH, dementia, and hep C. PAST SURGICAL HISTORY: Unknown. MEDICATIONS: Include ceftriaxone, heparin, divalproex, , Haldol, morphine, and Zofran. ALLERGIES: Sulfonamides. SOCIAL HISTORY: Unable to obtain secondary to the patient's confusion. REVIEW OF SYSTEMS: Unavailable. PHYSICAL EXAMINATION: GENERAL: Lethargic in bed, refusing to answer questions. VITAL SIGNS: Temperature 97 degrees, pulse 83, respirations 18, and blood pressure 120/73. CARDIOVASCULAR: No murmur. LUNGS: Poor air exchange. ABDOMEN: Bowel sounds distant. EXTREMITIES: No cyanosis, clubbing, or edema. NEUROLOGIC: The patient is flaccid in bed. Does not want to follow directions. LABORATORY DATA: Labs, at this time, show CBC is normal. Sodium 155, chloride 118, BUN and creatinine are 92 and 3.1. INR is 1.0. PTT 25. Urinalysis shows 3+ leukocyte esterase. ASSESSMENT: 1. Failure to thrive. 2. Urinary tract infection. 3. Chronic obstructive pulmonary disease. 4. Hypertension. 5. Acute renal failure. 6. BPH. 7. Peripheral vascular disease. 8. Dementia. 9. Hep C. PLAN: 1. PT and dietary evaluation. 2. CBC and BMP in the morning. 3. IV fluids. 4. Nephrology followup. 5. Resume home medications. 6. We will discuss with family if wish to change attending as per the ER physician. We will continue to follow this patient. Jaleel Moon D.O. DR: JOSELITO JOB#: [id number] CC:
[2019-02-13] VITALS: BP 116/70
[2019-02-13 04:00] VITALS: BP 108/70
--- NOTE | 2019-02-13 04:00 | History and Physical Report ---
DATE OF ADMISSION: 02/11/2019 CHIEF COMPLAINT: The patient is a 68-year-old male, who presents with a chief complaint of altered mental status. HISTORY OF PRESENT ILLNESS: The patient is a resident of [facility] and [facility] in [place]. According to staff at [facility], the patient has had increasing confusion. The patient has fallen several times. The patient presented to [place] emergency room. The patient was admitted for altered mental status to rule out acute cerebrovascular accident. REVIEW OF SYSTEMS: Unable to assess secondary to the patient's mental status. PAST MEDICAL HISTORY: Significant for, 1. Hypertension. 2. Cerebrovascular disease. 3. Status post cerebrovascular accident. 4. Alzheimer's dementia. 5. Hepatitis C. 6. Prostate cancer. PAST SURGICAL HISTORY: Significant for amputation of the left second toe secondary to osteomyelitis. CURRENT MEDICATIONS: 1. Aspirin 81 mg one tablet p.o. daily. 2. Chlorpromazine 25 mg p.o. q.6 hours p.r.n. 3. Depakote 500 mg p.o. 3 times daily. 4. Haldol 5 mg p.o. q.4 hours p.r.n. 5. Ativan 1 mg p.o. at bedtime. 6. Metoprolol 25 mg one tablet p.o. twice daily. 7. Mirtazapine 15 mg p.o. at bedtime. 8. Seroquel 12.5 mg p.o. 3 times daily and 50 units p.o. q.8 hours p.r.n. 9. Flomax 0.4 mg p.o. at bedtime. ALLERGIES: To "anesthesia." SOCIAL HISTORY: The patient is and lives at [facility]. The patient denies tobacco or alcohol use. PHYSICAL EXAMINATION: VITAL SIGNS: Temperature 98, respirations 17, pulse 79, and blood pressure 136/83. GENERAL: The patient is a thin-appearing male, in no apparent distress. HEENT: Eyes, pupils are equal and responsive to light and accommodation. Extraocular movements are intact. NECK: Supple without lymphadenopathy. CHEST: Lungs are clear to auscultation bilaterally without wheezes or rales. CARDIOVASCULAR: Regular rhythm and rate. S1 and S2 are normal without murmurs, rubs, or gallops. ABDOMEN: Soft, nontender, and nondistended. Positive bowel sounds. No evidence of hepatosplenomegaly. Currently, no rebound or guarding noted. EXTREMITIES: Negative for clubbing, cyanosis, or edema. RECTAL/GENITAL: Refused. NEUROLOGIC: Cranial nerves II through XII are grossly intact without focal deficits. Motor strength is 5/5 bilaterally. Deep tendon reflexes are 2+ plantar. LABORATORY STUDIES: WBC 9.6, hemoglobin 15.5, hematocrit 47.0, and platelets 190,000. Sodium 154, potassium 4.7, chloride 115, CO2 28, BUN 99, creatinine 3.4, and glucose 74. Troponin 0.0. A CT scan of the brain was reported as mild atrophy of the brain, otherwise without acute intracranial bleed, mass effect, or edema. ASSESSMENT: This is a 68-year-old male. 1. Altered mental status. 2. Renal failure. 3. Hypernatremia. 4. Hypertension. 5. Cerebrovascular disease. 6. Hepatitis C. 7. Prostate cancer. TREATMENT: 1. Altered mental status. This may be secondary to renal failure. The patient may also have a urinary tract infection. Urinalysis showed 3+ leukocyte esterase and wbc's too numerous to count. The patient has been started empirically on ceftriaxone. Urine culture is pending. We will follow recommendation of Infectious Disease. 2. Renal failure. This may be secondary to urinary tract infection as above. 3. Hyponatremia. The patient is currently receiving intravenous fluids. 4. Hypertension. The patient was admitted off medication. 5. Cerebrovascular disease, status post cerebrovascular accident. 6. Alzheimer's dementia. 7. Hepatitis C. 8. Prostate cancer. Alton Marshall M.D. DR: JOANNA JOB#: [id number] CC:
[2019-02-13 07:47] LABS: BASOPHILS % (AUTO) 0.8 % (0.0-2.0); EOSINOPHILS % (AUTO) 2.1 % (0.0-3.0); HEMATOCRIT 41.9 % (42.0-52.0); HEMOGLOBIN 13.8 G/DL (14.2-18.0); MEAN CORPUSCULAR VOLUME 94 FL (80-99); MONOCYTES % (AUTO) 6.7 % (1.0-10.0); NEUTROPHILS % (AUTO) 56.4 % (45.0-75.0); PLATELET COUNT 177 K/UL (150-450); RED BLOOD COUNT 4.44 M/UL (4.70-6.10); RED CELL DISTRIBUTION WIDTH 12.5 % (11.6-14.8); WHITE BLOOD COUNT 7.9 K/UL (4.8-10.8)
--- NOTE | 2019-02-13 07:57 | NUR ---
HAND-OFF: Report given to KERMIT Agee.
[2019-02-13 08:00] VITALS: BP 113/78
--- NOTE | 2019-02-13 08:00 | NUR ---
NURSE NOTES: Patient non verbal; on room air, no sign of distress and shortness of breath; IV Right upper arm and Left-upper arm- fluid running at 100 cc; condom cath in place drains yellow urine; bilateral restrain in place; bed at lowest position, side rails up x2, breaks engaged. will keep monitoring.
[2019-02-13 08:18] LABS: ALANINE AMINOTRANSFERASE 24 U/L (12-78); ALBUMIN 2.7 G/DL (3.4-5.0); ALBUMIN/GLOBULIN RATIO 0.6 (1.0-2.7); ALKALINE PHOSPHATASE 88 U/L (46-116); ANION GAP 11 mmol/L (5-15); ASPARTATE AMINO TRANSFERASE 33 U/L (15-37); BILIRUBIN,TOTAL 0.4 MG/DL (0.2-1.0); BLOOD UREA NITROGEN 83 mg/dL (7-18); CALCIUM 8.9 MG/DL (8.5-10.1); CARBON DIOXIDE 25 MMOL/L (21-32); CHLORIDE 113 MMOL/L (98-107); CHOLESTEROL 142 MG/DL (< 200); CREATININE 2.5 MG/DL (0.55-1.30); HDL CHOLESTEROL 54 MG/DL (40-60); POTASSIUM 4.3 MMOL/L (3.5-5.1); SODIUM 148 MMOL/L (136-145); TRIGLYCERIDES 53 MG/DL (30-150)
[2019-02-13] MEDS: Docusate 100mg cap ORAL SCH ×2 (08:44→17:13)
[2019-02-13] MEDS: Tamsulosin 0.4mg cap ORAL SCH ×2 (08:44→17:13)
[2019-02-13] MEDS: Depakote 500mg tab ORAL SCH ×2 (08:44→20:38)
[2019-02-13] MEDS: OLANZapine 2.5mg tab ORAL SCH (08:44)
[2019-02-13] MEDS: Heparin 5000 units/ml inj SUBQ SCH ×2 (08:46→20:39)
--- NOTE | 2019-02-13 08:53 | General Progress Note ---
Assessment/Plan Problem List: (1) UTI (urinary tract infection) ICD Codes: N39.0 - Urinary tract infection, site not specified SNOMED: 54973001 (2) CKD (chronic kidney disease) ICD Codes: N18.9 - CKD (chronic kidney disease) SNOMED: 811854792 (3) ARF (acute renal failure) ICD Codes: N17.9 - ARF (acute renal failure) SNOMED: 72210269 (4) Failure to thrive syndrome, adult ICD Codes: R62.7 - Failure to thrive syndrome, adult SNOMED: 866995949 (5) Hepatitis C ICD Codes: B19.20 - Unspecified viral hepatitis C without hepatic coma SNOMED: 81049323 (6) HTN (hypertension) ICD Codes: I10 - Essential (primary) hypertension SNOMED: 19765245 Status: unchanged Assessment/Plan: pt diet abx gi eval cbc bmp am Subjective Constitutional: Reports: weakness Allergies: Uncoded Allergies: anesthetics unspecified (Allergy, Mild, 02/12/19) sulfonamides (Allergy, Mild, rash, 02/12/19) All Systems: reviewed and negative except above Subjective sleepy calm Objective Last 24 Hour Vital Signs Date Time Temp Pulse Resp B/P (MAP) Pulse Ox O2 Delivery O2 Flow Rate FiO2 02/13/19 04:00 98.8 101 17 108/70 (83) 95 02/13/19 00:00 98.1 93 15 116/70 (85) 96 02/12/19 21:00 Room Air 02/12/19 20:00 97.8 96 15 101/70 (80) 98 02/12/19 16:00 98.1 86 17 132/75 (94) 95 02/12/19 12:00 97.5 83 18 128/73 (91) 96 02/12/19 09:00 Room Air Intake and Output 02/12/19 02/13/19 19:00 07:00 Intake Total 705 ml 500 ml Output Total 700 ml Balance 705 ml -200 ml Intake IV Total 705 ml 500 ml Output Urine Total 700 ml # Bowel Movements 2 1 Laboratory Tests 02/12/19 13:50: Urine Color Pale yellow, Urine Appearance Cloudy, Urine pH 9, Urine Specific [place] 1.010, Urine Protein 3+H, Urine Glucose (UA) Negative, Urine Ketones Negative, Urine Blood 5+H, Urine Nitrite Negative, Urine Bilirubin Negative, Urine Urobilinogen Normal, Urine Leukocyte Esterase 3+H, Urine RBC 15-20H, Urine WBC 40-60H, Urine Squamous Epithelial Cells None, Urine Bacteria ManyH, Urine Eosinophils None seen, Urine Osmolality 481H, Urine Random Sodium 57, Urine Random Chloride 92, Urine Potassium Timed 24 02/13/19 06:46: White Blood Count 7.9, Red Blood Count 4.44L, Hemoglobin 13.8L, Hematocrit 41.9L , Mean Corpuscular Volume 94, Mean Corpuscular Hemoglobin 31.1H, Mean Corpuscular Hemoglobin Concent 32.9, Red Cell Distribution Width 12.5, Platelet Count 177, Mean Platelet Volume 7.7, Neutrophils (%) (Auto) 56.4, Lymphocytes (% ) (Auto) 34.0, Monocytes (%) (Auto) 6.7, Eosinophils (%) (Auto) 2.1, Basophils ( %) (Auto) 0.8, Sodium Level 148H, Potassium Level 4.3, Chloride Level 113H, Carbon Dioxide Level 25, Anion Gap 11, Blood Urea Nitrogen 83H, Creatinine 2.5H , Estimat Glomerular Filtration Rate 31.1, Glucose Level 121H, Hemoglobin A1c 6.0, Uric Acid [Pending], Calcium Level 8.9, Phosphorus Level [Pending], Magnesium Level [Pending], Total Bilirubin 0.4, Gamma Glutamyl Transpeptidase [ Pending], Aspartate Amino Transf (AST/SGOT) 33, Alanine Aminotransferase (ALT/ SGPT) 24, Alkaline Phosphatase 88, Total Creatine Kinase [Pending], Troponin I 0.000, C-Reactive Protein, Quantitative [Pending], Pro-B-Type Natriuretic Peptide [Pending], Total Protein 7.5, Albumin 2.7L, Globulin 4.8, Albumin/ Globulin Ratio 0.6L, Triglycerides Level 53, Cholesterol Level 142, LDL Cholesterol 78, HDL Cholesterol 54, Cholesterol/HDL Ratio 2.6L, Vitamin B12 Level 1186H, Folate 13.3, Thyroid Stimulating Hormone (TSH) 1.082, Valproic Acid (Depakene) Level [Pending] Height (Feet): 5 Height (Inches): 6.00 Weight (Pounds): 109 General Appearance: lethargic EENT: normal ENT inspection Neck: normal alignment Cardiovascular: normal peripheral pulses, normal rate, regular rhythm Respiratory/Chest: chest wall non-tender, lungs clear, normal breath sounds Abdomen: normal bowel sounds, non tender, soft Extremities: normal inspection Edema: no edema noted Arm (L), no edema noted Arm (R), no edema noted Leg (L), no edema noted Leg (R), no edema noted Pedal (L), no edema noted Pedal (R), no edema noted Generalized Neurologic: motor weakness Skin: normal pigmentation, warm/dry Jaleel Moon DO Feb 13, 2019 08:53
[2019-02-13 09:03] LABS: CREATINE KINASE 65 U/L (26-308); GAMMA GLUTAMYL TRANSPEPTIDASE 52 U/L (5-85); PHOSPHORUS 2.6 MG/DL (2.5-4.9)
--- NOTE | 2019-02-13 10:11 | NUR ---
NURSE NOTES: Patient's Na 148, I communicated MD rWight, waiting for order.
[2019-02-13] MEDS: cefTRIAXone 1 GM in D5W 55 ML IVPB SCH (10:20)
--- NOTE | 2019-02-13 10:58 | Pulmonology Progress Note ---
Assessment/Plan Problems: (1) Acute encephalopathy (2) Sepsis (3) ATN (acute tubular necrosis) (4) Pyelonephritis (5) Prostate cancer (6) Cerebral vascular disease (7) Methadone maintenance therapy patient (8) HTN (hypertension) (9) Hepatitis C Assessment/Plan iv fluids iv abx check cultures neuro f/u hold mind altering meds Subjective ROS Limited/Unobtainable: Yes Interval Events: still somnolent Allergies: Uncoded Allergies: anesthetics unspecified (Allergy, Mild, 02/12/19) sulfonamides (Allergy, Mild, rash, 02/12/19) Objective Last 24 Hour Vital Signs Date Time Temp Pulse Resp B/P (MAP) Pulse Ox O2 Delivery O2 Flow Rate FiO2 02/13/19 09:00 Room Air 02/13/19 08:00 98.4 76 18 113/78 (90) 98 02/13/19 04:00 98.8 101 17 108/70 (83) 95 02/13/19 00:00 98.1 93 15 116/70 (85) 96 02/12/19 21:00 Room Air 02/12/19 20:00 97.8 96 15 101/70 (80) 98 02/12/19 16:00 98.1 86 17 132/75 (94) 95 02/12/19 12:00 97.5 83 18 128/73 (91) 96 Intake and Output 02/12/19 02/13/19 19:00 07:00 Intake Total 705 ml 500 ml Output Total 700 ml Balance 705 ml -200 ml Intake IV Total 705 ml 500 ml Output Urine Total 700 ml # Bowel Movements 2 1 Objective General Appearance: cachectic Lines, tubes and drains: peripheral HEENT: normocephalic, atraumatic Neck: non-tender, normal alignment Respiratory/Chest: chest wall non-tender, lungs clear Cardiovascular/Chest: normal peripheral pulses, normal rate Abdomen: normal bowel sounds Extremities: normal range of motion Microbiology Date/Time Source Procedure Growth Status 02/12/19 13:50 Urine,Clean Catch Urine Culture - Preliminary Gram Negative Jhonatan Resulted 02/12/19 03:20 Urine,Clean Catch Urine Culture - Preliminary Gram Negative Jhonatan Resulted 02/11/19 23:19 Rectum Received 02/11/19 23:19 Arm Right Blood Culture - Preliminary NO GROWTH AFTER 24 HOURS Resulted 02/11/19 23:19 Arm Left Blood Culture - Preliminary NO GROWTH AFTER 24 HOURS Resulted Laboratory Tests 02/12/19 13:50: Urine Color Pale yellow, Urine Appearance Cloudy, Urine pH 9, Urine Specific [place] 1.010, Urine Protein 3+H, Urine Glucose (UA) Negative, Urine Ketones Negative, Urine Blood 5+H, Urine Nitrite Negative, Urine Bilirubin Negative, Urine Urobilinogen Normal, Urine Leukocyte Esterase 3+H, Urine RBC 15-20H, Urine WBC 40-60H, Urine Squamous Epithelial Cells None, Urine Bacteria ManyH, Urine Eosinophils None seen, Urine Osmolality 481H, Urine Random Sodium 57, Urine Random Chloride 92, Urine Potassium Timed 24 02/13/19 06:46: White Blood Count 7.9, Red Blood Count 4.44L, Hemoglobin 13.8L, Hematocrit 41.9L , Mean Corpuscular Volume 94, Mean Corpuscular Hemoglobin 31.1H, Mean Corpuscular Hemoglobin Concent 32.9, Red Cell Distribution Width 12.5, Platelet Count 177, Mean Platelet Volume 7.7, Neutrophils (%) (Auto) 56.4, Lymphocytes (% ) (Auto) 34.0, Monocytes (%) (Auto) 6.7, Eosinophils (%) (Auto) 2.1, Basophils ( %) (Auto) 0.8, Sodium Level 148H, Potassium Level 4.3, Chloride Level 113H, Carbon Dioxide Level 25, Anion Gap 11, Blood Urea Nitrogen 83H, Creatinine 2.5H , Estimat Glomerular Filtration Rate 31.1, Glucose Level 121H, Hemoglobin A1c 6.0, Uric Acid 9.2H, Calcium Level 8.9, Phosphorus Level 2.6, Magnesium Level 2.1, Total Bilirubin 0.4, Gamma Glutamyl Transpeptidase 52, Aspartate Amino Transf (AST/SGOT) 33, Alanine Aminotransferase (ALT/SGPT) 24, Alkaline Phosphatase 88, Total Creatine Kinase 65, Troponin I 0.000, C-Reactive Protein, Quantitative 0.5, Pro-B-Type Natriuretic Peptide 97, Total Protein 7.5, Albumin 2.7L, Globulin 4.8, Albumin/Globulin Ratio 0.6L, Triglycerides Level 53, Cholesterol Level 142, LDL Cholesterol 78, HDL Cholesterol 54, Cholesterol/HDL Ratio 2.6L, Vitamin B12 Level 1186H, Folate 13.3, Thyroid Stimulating Hormone ( TSH) 1.082, Valproic Acid (Depakene) Level 43L Current Medications Medications (Trade) Dose Ordered Sig/Lucie Route PRN Reason Start Time Stop Time Status Last Admin Dose Admin Acetaminophen (Tylenol) 650 mg Q4H PRN ORAL Mild Pain/Temp > 100.5 02/12/19 08:15 03/14/19 08:14 Ceftriaxone Sodium 1 gm/ Dextrose 55 ml @ 110 mls/hr Q24H IVPB 02/12/19 10:00 02/19/19 09:59 02/13/19 10:20 Clonidine HCl (Catapres Tab) 0.1 mg Q4H PRN ORAL For High Blood Pressure 02/12/19 08:15 03/14/19 08:14 Dextrose 1,000 ml @ 100 mls/hr Q10H IV 02/12/19 16:00 03/14/19 15:59 02/12/19 16:20 Dextrose (Dextrose 50%) 25 ml Q30M PRN IV Hypoglycemia 02/12/19 08:15 03/14/19 08:14 Dextrose (Dextrose 50%) 50 ml Q30M PRN IV Hypoglycemia 02/12/19 08:15 03/14/19 08:14 Divalproex Sodium (Depakote) 500 mg EVERY 12 HOURS ORAL 02/12/19 09:00 03/14/19 08:59 02/13/19 08:44 Docusate Sodium (Colace) 100 mg TWICE A DAY ORAL 02/12/19 09:00 03/14/19 08:59 02/13/19 08:44 Haloperidol (Haldol) 5 mg Q6H PRN ORAL Agitation 02/12/19 08:30 03/14/19 08:29 02/12/19 16:20 Heparin Sodium (Porcine) (Heparin 5000 units/ml) 5,000 units EVERY 12 HOURS SUBQ 02/12/19 09:00 03/14/19 08:59 02/13/19 08:46 Lorazepam (Ativan 2mg/ml 1ml) 0.5 mg Q4H PRN IV For Anxiety 02/12/19 08:15 02/19/19 08:14 Morphine Sulfate (Morphine Sulfate) 1 mg Q4H PRN IVP For Pain 02/12/19 08:15 02/19/19 08:14 4/26/19 22:12 Olanzapine (ZyPREXA) 2.5 mg TID ORAL 02/12/19 14:00 03/14/19 13:59 02/13/19 08:44 Ondansetron HCl (Zofran) 4 mg Q6H PRN IVP Nausea & Vomiting 02/12/19 08:15 03/14/19 08:14 Polyethylene Glycol (Miralax) 17 gm HSPRN PRN ORAL Constipation 02/12/19 08:15 03/14/19 08:14 Tamsulosin HCl (Flomax) 0.4 mg BID ORAL 02/12/19 18:00 03/14/19 17:59 02/13/19 08:44 Zolpidem Tartrate (Ambien) 5 mg HSPRN PRN ORAL Insomnia 02/12/19 08:15 02/19/19 08:14 German Mooney MD Feb 13, 2019 10:58
[2019-02-13] MEDS ORDERED: OLANZapine 2.5mg tab ORAL PRN (11:00)
[2019-02-13 12:00] VITALS: BP 115/76
--- NOTE | 2019-02-13 13:02 | Nephrology Progress Note ---
Assessment/Plan Problem List: (1) ARF (acute renal failure) (2) CKD (chronic kidney disease) (3) Failure to thrive syndrome, adult (4) Hypernatremia Assessment Acute encephalopathy Psych history & Paranoia h/o Prostate cancer CKD (chronic kidney disease), superimposed ARF / Dehydration h/o Hepatitis C h/o Dementia Plan D5w Hydrate monitor renal parameters keep BP and BS in check per orders Subjective ROS Limited/Unobtainable: No Constitutional: Reports: malaise, weakness Objective Objective Last 24 Hour Vital Signs Date Time Temp Pulse Resp B/P (MAP) Pulse Ox O2 Delivery O2 Flow Rate FiO2 02/13/19 12:00 98.0 82 19 115/76 (89) 97 02/13/19 09:00 Room Air 02/13/19 08:00 98.4 76 18 113/78 (90) 98 02/13/19 04:00 98.8 101 17 108/70 (83) 95 02/13/19 00:00 98.1 93 15 116/70 (85) 96 02/12/19 21:00 Room Air 02/12/19 20:00 97.8 96 15 101/70 (80) 98 02/12/19 16:00 98.1 86 17 132/75 (94) 95 Intake and Output 02/12/19 02/13/19 19:00 07:00 Intake Total 705 ml 600 ml Output Total 700 ml Balance 705 ml -100 ml Intake IV Total 705 ml 600 ml Output Urine Total 700 ml # Bowel Movements 2 1 Laboratory Tests 02/12/19 13:50: Urine Color Pale yellow, Urine Appearance Cloudy, Urine pH 9, Urine Specific [place] 1.010, Urine Protein 3+H, Urine Glucose (UA) Negative, Urine Ketones Negative, Urine Blood 5+H, Urine Nitrite Negative, Urine Bilirubin Negative, Urine Urobilinogen Normal, Urine Leukocyte Esterase 3+H, Urine RBC 15-20H, Urine WBC 40-60H, Urine Squamous Epithelial Cells None, Urine Bacteria ManyH, Urine Eosinophils None seen, Urine Osmolality 481H, Urine Random Sodium 57, Urine Random Chloride 92, Urine Potassium Timed 24 02/13/19 06:46: White Blood Count 7.9, Red Blood Count 4.44L, Hemoglobin 13.8L, Hematocrit 41.9L , Mean Corpuscular Volume 94, Mean Corpuscular Hemoglobin 31.1H, Mean Corpuscular Hemoglobin Concent 32.9, Red Cell Distribution Width 12.5, Platelet Count 177, Mean Platelet Volume 7.7, Neutrophils (%) (Auto) 56.4, Lymphocytes (% ) (Auto) 34.0, Monocytes (%) (Auto) 6.7, Eosinophils (%) (Auto) 2.1, Basophils ( %) (Auto) 0.8, Sodium Level 148H, Potassium Level 4.3, Chloride Level 113H, Carbon Dioxide Level 25, Anion Gap 11, Blood Urea Nitrogen 83H, Creatinine 2.5H , Estimat Glomerular Filtration Rate 31.1, Glucose Level 121H, Hemoglobin A1c 6.0, Uric Acid 9.2H, Calcium Level 8.9, Phosphorus Level 2.6, Magnesium Level 2.1, Total Bilirubin 0.4, Gamma Glutamyl Transpeptidase 52, Aspartate Amino Transf (AST/SGOT) 33, Alanine Aminotransferase (ALT/SGPT) 24, Alkaline Phosphatase 88, Total Creatine Kinase 65, Troponin I 0.000, C-Reactive Protein, Quantitative 0.5, Pro-B-Type Natriuretic Peptide 97, Total Protein 7.5, Albumin 2.7L, Globulin 4.8, Albumin/Globulin Ratio 0.6L, Triglycerides Level 53, Cholesterol Level 142, LDL Cholesterol 78, HDL Cholesterol 54, Cholesterol/HDL Ratio 2.6L, Vitamin B12 Level 1186H, Folate 13.3, Thyroid Stimulating Hormone ( TSH) 1.082, Valproic Acid (Depakene) Level 43L Height (Feet): 5 Height (Inches): 6.00 Weight (Pounds): 109 General Appearance: no apparent distress Cardiovascular: tachycardia Respiratory/Chest: decreased breath sounds Abdomen: distended Tanner Grant MD Feb 13, 2019 13:02
--- NOTE | 2019-02-13 13:02 | NUR ---
CASE MANAGEMENT: REVIEW SI: ACUTE ENCEPHALOPATHY . PYELONEPHRITIS . T 98.0 HR 101 RR 17 BP 108/70 SAT 95% ROOM AIR NA 148 BUN 83 CR 2.5 URIC ACID 9.2 IS: CEFTRIAXONE IV Q24HR DEPAKOTE PO Q12HR SWALLOW EVAL MED/SURG STATUS DCP: PATIENT IS FROM [facility]
--- NOTE | 2019-02-13 13:30 | Cardiology Report ---
APPROVED REPORT EXAM: Two-dimensional and M-mode echocardiogram with Doppler and color Doppler. INDICATION Altered LOC M-Mode DIMENSIONS IVSd1.3 (0.7-1.1cm) LVDd2.7 (3.5-5.6cm) PWd1.2 (0.7-1.1cm) IVSs1.3 cm LVDs1.6 (2.5-4.0cm) PWs1.5 cm Technically difficult and limited study due to poor acoustic windows. Dextrocardia. All images obtained from subcostal view. Study quality precludes accurate assessment of regional wall motion. M-mode measurements of left ventricle not obtainable due to cardiac position (angle). Normal left ventricular chamber size, systolic function and wall motion to extent visualized. Left ventricular ejection fraction estimated to be grossly normal. Mild left ventricular hypertrophy. No evidence of pericardial effusion. All other cardiac chamber sizes appear to be within normal limits. Focal aortic valve sclerosis with adequate cusp excursion. Thickened mitral valve leaflets with normal excursion. Mild mitral annulus and aortic root calcification. Pulmonic valve not visualized. Normal tricuspid valve structure. IVC is normal in size with physiological collapse. A color flow and spectral Doppler study was performed and revealed: There appears to be no mitral regurgitation. There appears to be no tricuspid regurgitation.
--- NOTE | 2019-02-13 15:10 | Cardiac Electrophysiology PN ---
Assessment/Plan Assessment/Plan 1. Hypotension in a patient with history of hypertension. Resolved on IV antibiotic. Echo showed Nl EF. 2. History of dementia. Head CT is negative. 3. Renal failure and hypernatremia with sodium 154 with a BUN of 99, creatinine 3.4. It is likely due to dehydration. On IV fluids. 4. Dehydration. 5. Negative troponin. Subjective Subjective No new events. Still nonverbal in restraints. Family at bedside. Objective Last 24 Hour Vital Signs Date Time Temp Pulse Resp B/P (MAP) Pulse Ox O2 Delivery O2 Flow Rate FiO2 02/13/19 12:00 98.0 82 19 115/76 (89) 97 02/13/19 09:00 Room Air 02/13/19 08:00 98.4 76 18 113/78 (90) 98 02/13/19 04:00 98.8 101 17 108/70 (83) 95 02/13/19 00:00 98.1 93 15 116/70 (85) 96 02/12/19 21:00 Room Air 02/12/19 20:00 97.8 96 15 101/70 (80) 98 02/12/19 16:00 98.1 86 17 132/75 (94) 95 Intake and Output 02/12/19 02/13/19 19:00 07:00 Intake Total 705 ml 600 ml Output Total 700 ml Balance 705 ml -100 ml Intake IV Total 705 ml 600 ml Output Urine Total 700 ml # Bowel Movements 2 1 Laboratory Tests Test 02/13/19 06:46 White Blood Count 7.9 K/UL (4.8-10.8) Red Blood Count 4.44 M/UL (4.70-6.10) L Hemoglobin 13.8 G/DL (14.2-18.0) L Hematocrit 41.9 % (42.0-52.0) L Mean Corpuscular Volume 94 FL (80-99) Mean Corpuscular Hemoglobin 31.1 PG (27.0-31.0) H Mean Corpuscular Hemoglobin Concent 32.9 G/DL (32.0-36.0) Red Cell Distribution Width 12.5 % (11.6-14.8) Platelet Count 177 K/UL (150-450) Mean Platelet Volume 7.7 FL (6.5-10.1) Neutrophils (%) (Auto) 56.4 % (45.0-75.0) Lymphocytes (%) (Auto) 34.0 % (20.0-45.0) Monocytes (%) (Auto) 6.7 % (1.0-10.0) Eosinophils (%) (Auto) 2.1 % (0.0-3.0) Basophils (%) (Auto) 0.8 % (0.0-2.0) Sodium Level 148 MMOL/L (136-145) H Potassium Level 4.3 MMOL/L (3.5-5.1) Chloride Level 113 MMOL/L (98-107) H Carbon Dioxide Level 25 MMOL/L (21-32) Anion Gap 11 mmol/L (5-15) Blood Urea Nitrogen 83 mg/dL (7-18) H Creatinine 2.5 MG/DL (0.55-1.30) H Estimat Glomerular Filtration Rate 31.1 mL/min (>60) Glucose Level 121 MG/DL (74-106) H Hemoglobin A1c 6.0 % (4.3-6.0) Uric Acid 9.2 MG/DL (2.6-7.2) H Calcium Level 8.9 MG/DL (8.5-10.1) Phosphorus Level 2.6 MG/DL (2.5-4.9) Magnesium Level 2.1 MG/DL (1.8-2.4) Total Bilirubin 0.4 MG/DL (0.2-1.0) Gamma Glutamyl Transpeptidase 52 U/L (5-85) Aspartate Amino Transf (AST/SGOT) 33 U/L (15-37) Alanine Aminotransferase (ALT/SGPT) 24 U/L (12-78) Alkaline Phosphatase 88 U/L (46-116) Total Creatine Kinase 65 U/L (26-308) Troponin I 0.000 ng/mL (0.000-0.056) C-Reactive Protein, Quantitative 0.5 mg/dL (0.00-0.90) Pro-B-Type Natriuretic Peptide 97 pg/mL (0-125) Total Protein 7.5 G/DL (6.4-8.2) Albumin 2.7 G/DL (3.4-5.0) L Globulin 4.8 g/dL Albumin/Globulin Ratio 0.6 (1.0-2.7) L Triglycerides Level 53 MG/DL (30-150) Cholesterol Level 142 MG/DL (< 200) LDL Cholesterol 78 mg/dL (<100) HDL Cholesterol 54 MG/DL (40-60) Cholesterol/HDL Ratio 2.6 (3.3-4.4) L Free Prostate Specific Antigen Pending Percent Free Prostate Specific Ag Pending Prostate Specific Antigen Total Pending Vitamin B12 Level 1186 PG/ML (193-986) H Folate 13.3 NG/ML (8.6-58.9) Thyroid Stimulating Hormone (TSH) 1.082 uiU/mL (0.358-3.740) Valproic Acid (Depakene) Level 43 MCG/ML (50-100) L Microbiology Date/Time Source Procedure Growth Status 02/12/19 13:50 Urine,Clean Catch Urine Culture - Preliminary Gram Negative Jhonatan Resulted 02/12/19 03:20 Urine,Clean Catch Urine Culture - Preliminary Gram Negative Jhonatan Resulted 02/11/19 23:19 Rectum Received 02/11/19 23:19 Arm Right Blood Culture - Preliminary NO GROWTH AFTER 24 HOURS Resulted 02/11/19 23:19 Arm Left Blood Culture - Preliminary NO GROWTH AFTER 24 HOURS Resulted Objective HEAD AND NECK: No JVD. LUNGS: Coarse rhonchi. CARDIOVASCULAR: Shows regular S1 and S2 with no gallop or murmur. ABDOMEN: Soft. EXTREMITIES: No pitting edema. Bryce Ba MD Feb 13, 2019 15:09
--- NOTE | 2019-02-13 15:48 | NUR ---
PT Note Attempted to see patient for eval but patient was asleep, unable to arouse. Will check again later.
[2019-02-13 16:00] VITALS: BP 121/71
--- NOTE | 2019-02-13 16:22 | Internal Med Progress Note ---
Subjective Date of Service: Feb 13, 2019 Physician Name Alton Marshall Attending Physician Robin Wright MD Current Medications Medications (Trade) Dose Ordered Sig/Lucie Route PRN Reason Start Time Stop Time Status Last Admin Dose Admin Acetaminophen (Tylenol) 650 mg Q4H PRN ORAL Mild Pain/Temp > 100.5 02/12/19 08:15 03/14/19 08:14 Ceftriaxone Sodium 1 gm/ Dextrose 55 ml @ 110 mls/hr Q24H IVPB 02/12/19 10:00 02/19/19 09:59 02/13/19 10:20 Clonidine HCl (Catapres Tab) 0.1 mg Q4H PRN ORAL For High Blood Pressure 02/12/19 08:15 03/14/19 08:14 Dextrose 1,000 ml @ 100 mls/hr Q10H IV 02/12/19 16:00 03/14/19 15:59 02/13/19 11:38 Dextrose (Dextrose 50%) 25 ml Q30M PRN IV Hypoglycemia 02/12/19 08:15 03/14/19 08:14 Dextrose (Dextrose 50%) 50 ml Q30M PRN IV Hypoglycemia 02/12/19 08:15 03/14/19 08:14 Divalproex Sodium (Depakote) 500 mg EVERY 12 HOURS ORAL 02/12/19 09:00 03/14/19 08:59 02/13/19 08:44 Docusate Sodium (Colace) 100 mg TWICE A DAY ORAL 02/12/19 09:00 03/14/19 08:59 02/13/19 08:44 Haloperidol (Haldol) 5 mg Q6H PRN ORAL Agitation 02/12/19 08:30 03/14/19 08:29 02/12/19 16:20 Heparin Sodium (Porcine) (Heparin 5000 units/ml) 5,000 units EVERY 12 HOURS SUBQ 02/12/19 09:00 03/14/19 08:59 02/13/19 08:46 Lorazepam (Ativan 2mg/ml 1ml) 0.5 mg Q4H PRN IV For Anxiety 02/12/19 08:15 02/19/19 08:14 Morphine Sulfate (Morphine Sulfate) 1 mg Q4H PRN IVP For Pain 02/12/19 08:15 02/19/19 08:14 02/12/19 22:12 Olanzapine (ZyPREXA) 2.5 mg TID PRN ORAL agitation 02/13/19 11:00 03/14/19 13:59 Ondansetron HCl (Zofran) 4 mg Q6H PRN IVP Nausea & Vomiting 02/12/19 08:15 03/14/19 08:14 Polyethylene Glycol (Miralax) 17 gm HSPRN PRN ORAL Constipation 02/12/19 08:15 03/14/19 08:14 Tamsulosin HCl (Flomax) 0.4 mg BID ORAL 02/12/19 18:00 03/14/19 17:59 02/13/19 08:44 Zolpidem Tartrate (Ambien) 5 mg HSPRN PRN ORAL Insomnia 02/12/19 08:15 02/19/19 08:14 Allergies: Uncoded Allergies: anesthetics unspecified (Allergy, Mild, 02/12/19) sulfonamides (Allergy, Mild, rash, 02/12/19) ROS Limited/Unobtainable: Yes Subjective 68 YO M admitted with altered mental status. Now UTI. Cover for Int Med-Dr Wright Objective Last Vital Signs Date Time Temp Pulse Resp B/P (MAP) Pulse Ox O2 Delivery O2 Flow Rate FiO2 02/13/19 12:00 98.0 82 19 115/76 (89) 97 02/13/19 09:00 Room Air Laboratory Tests Test 02/13/19 06:46 White Blood Count 7.9 K/UL (4.8-10.8) Red Blood Count 4.44 M/UL (4.70-6.10) L Hemoglobin 13.8 G/DL (14.2-18.0) L Hematocrit 41.9 % (42.0-52.0) L Mean Corpuscular Volume 94 FL (80-99) Mean Corpuscular Hemoglobin 31.1 PG (27.0-31.0) H Mean Corpuscular Hemoglobin Concent 32.9 G/DL (32.0-36.0) Red Cell Distribution Width 12.5 % (11.6-14.8) Platelet Count 177 K/UL (150-450) Mean Platelet Volume 7.7 FL (6.5-10.1) Neutrophils (%) (Auto) 56.4 % (45.0-75.0) Lymphocytes (%) (Auto) 34.0 % (20.0-45.0) Monocytes (%) (Auto) 6.7 % (1.0-10.0) Eosinophils (%) (Auto) 2.1 % (0.0-3.0) Basophils (%) (Auto) 0.8 % (0.0-2.0) Sodium Level 148 MMOL/L (136-145) H Potassium Level 4.3 MMOL/L (3.5-5.1) Chloride Level 113 MMOL/L (98-107) H Carbon Dioxide Level 25 MMOL/L (21-32) Anion Gap 11 mmol/L (5-15) Blood Urea Nitrogen 83 mg/dL (7-18) H Creatinine 2.5 MG/DL (0.55-1.30) H Estimat Glomerular Filtration Rate 31.1 mL/min (>60) Glucose Level 121 MG/DL (74-106) H Hemoglobin A1c 6.0 % (4.3-6.0) Uric Acid 9.2 MG/DL (2.6-7.2) H Calcium Level 8.9 MG/DL (8.5-10.1) Phosphorus Level 2.6 MG/DL (2.5-4.9) Magnesium Level 2.1 MG/DL (1.8-2.4) Total Bilirubin 0.4 MG/DL (0.2-1.0) Gamma Glutamyl Transpeptidase 52 U/L (5-85) Aspartate Amino Transf (AST/SGOT) 33 U/L (15-37) Alanine Aminotransferase (ALT/SGPT) 24 U/L (12-78) Alkaline Phosphatase 88 U/L (46-116) Total Creatine Kinase 65 U/L (26-308) Troponin I 0.000 ng/mL (0.000-0.056) C-Reactive Protein, Quantitative 0.5 mg/dL (0.00-0.90) Pro-B-Type Natriuretic Peptide 97 pg/mL (0-125) Total Protein 7.5 G/DL (6.4-8.2) Albumin 2.7 G/DL (3.4-5.0) L Globulin 4.8 g/dL Albumin/Globulin Ratio 0.6 (1.0-2.7) L Triglycerides Level 53 MG/DL (30-150) Cholesterol Level 142 MG/DL (< 200) LDL Cholesterol 78 mg/dL (<100) HDL Cholesterol 54 MG/DL (40-60) Cholesterol/HDL Ratio 2.6 (3.3-4.4) L Free Prostate Specific Antigen Pending Percent Free Prostate Specific Ag Pending Prostate Specific Antigen Total Pending Vitamin B12 Level 1186 PG/ML (193-986) H Folate 13.3 NG/ML (8.6-58.9) Thyroid Stimulating Hormone (TSH) 1.082 uiU/mL (0.358-3.740) Valproic Acid (Depakene) Level 43 MCG/ML (50-100) L Microbiology Date/Time Source Procedure Growth Status 02/12/19 13:50 Urine,Clean Catch Urine Culture - Preliminary Gram Negative Jhonatan Resulted 02/12/19 03:20 Urine,Clean Catch Urine Culture - Preliminary Gram Negative Jhonatan Resulted 02/11/19 23:19 Rectum Received 02/11/19 23:19 Arm Right Blood Culture - Preliminary NO GROWTH AFTER 24 HOURS Resulted 02/11/19 23:19 Arm Left Blood Culture - Preliminary NO GROWTH AFTER 24 HOURS Resulted Intake and Output 02/12/19 02/13/19 19:00 07:00 Intake Total 705 ml 600 ml Output Total 700 ml Balance 705 ml -100 ml Intake IV Total 705 ml 600 ml Output Urine Total 700 ml # Bowel Movements 2 1 Assessment/Plan Assessment/Plan Transfer attending to Alton Prieto MD Feb 13, 2019 16:22
--- NOTE | 2019-02-13 19:44 | NUR ---
HAND-OFF: Report given to KERMIT Marcelo.
--- NOTE | 2019-02-13 19:46 | NUR ---
NURSE NOTES: Received patient in bed, is by his bedside, VSS, afebrile, no acute distress noted, non verbal, on room air, on the calorie count. Call light is within reach, bed is in low position, locked and alarm is on. Will continue to monitor for safety and comfort.
--- NOTE | 2019-02-13 20:30 | Consultation ---
DATE OF CONSULTATION: 02/13/2019 CONSULTING PHYSICIAN: Min Samuel M.D. CHIEF COMPLAINT: Poor p.o. intake, significant weight loss. HISTORY OF PRESENT ILLNESS: This is a 68-year-old patient, with history of dementia, history of prostate cancer status post surgery living in a fdc, was transferred to the hospital with altered mental status. PAST MEDICAL HISTORY: 1. Hypertension. 2. CVA. 3. Alzheimer's dementia. 4. Hepatitis C. 5. Prostate cancer. 6. Constipation. PAST SURGICAL HISTORY: 1. History of amputation of left second toe secondary to osteomyelitis. 2. Possible prostate surgery. MEDICATIONS: Please see medication reconciliation list. ALLERGIES: No known allergies per chart. REVIEW OF SYSTEMS: Unable to obtain. FAMILY HISTORY: Noncontributory. SOCIAL HISTORY: Currently lives in a fdc. No history of tobacco, alcohol, or drug abuse. PHYSICAL EXAMINATION: GENERAL: Very cachectic looking male. VITAL SIGNS: Temperature 98.4, pulse 72, respirations 18, blood pressure is 130/78. HEENT: Normocephalic and atraumatic. Sclerae anicteric. NECK: Supple. No evidence of lymphadenopathy. CARDIOVASCULAR: Regular rate and rhythm. Plus S1 and S2. No obvious murmur. ABDOMEN: Soft. There is a scar below the umbilicus from prior abdominal surgeries. No rebound. No guarding. No peritoneal sign. EXTREMITIES: No cyanosis, no clubbing, no edema. LABORATORY DATA: White count 7.9, hemoglobin 13, hematocrit 41, platelet count is 177,000. Chem-7; sodium 140, potassium 4.3, BUN is 83, creatinine 2.5. Glucose 121. ASSESSMENT AND PLAN: A 68-year-old male with numerous medical problems as above. Based on physical exam, an albumin of 2.7 seems to be very malnourished. Plan will be to hydrate him with IV fluids. Follow on the creatinine and get a swallow evaluation. Do a calorie count for 48 hours. Consider doing PEG if the patient fails the swallow or patient has adequate by mouth intake. I want to thank Dr. Robin Wright, for this kind referral. Min Samuel M.D. DR: JEFF JOB#: [id number] CC: Robin Wright M.D.; Fax#: [phone]
[2019-02-13 20:32] VITALS: BP 126/81
[2019-02-13] MEDS: Morphine Sulfate 2mg/ml Inj(IV/IM USE ONLY) IVP PRN (20:43)
--- NOTE | 2019-02-13 22:08 | Psych Consult Progress Note ---
Psychiatry Progress Note Psychiatry Progress Note Medications Current Medications Medications (Trade) Dose Ordered Sig/Lucie Route PRN Reason Start Time Stop Time Status Last Admin Dose Admin Acetaminophen (Tylenol) 650 mg Q4H PRN ORAL Mild Pain/Temp > 100.5 02/12/19 08:15 03/14/19 08:14 Ceftriaxone Sodium 1 gm/ Dextrose 55 ml @ 110 mls/hr Q24H IVPB 02/12/19 10:00 02/19/19 09:59 02/13/19 10:20 Clonidine HCl (Catapres Tab) 0.1 mg Q4H PRN ORAL For High Blood Pressure 02/12/19 08:15 03/14/19 08:14 Dextrose 1,000 ml @ 100 mls/hr Q10H IV 02/12/19 16:00 03/14/19 15:59 02/13/19 21:51 Dextrose (Dextrose 50%) 25 ml Q30M PRN IV Hypoglycemia 02/12/19 08:15 03/14/19 08:14 Dextrose (Dextrose 50%) 50 ml Q30M PRN IV Hypoglycemia 02/12/19 08:15 03/14/19 08:14 Divalproex Sodium (Depakote) 500 mg EVERY 12 HOURS ORAL 02/12/19 09:00 03/14/19 08:59 02/13/19 20:38 Docusate Sodium (Colace) 100 mg TWICE A DAY ORAL 02/12/19 09:00 03/14/19 08:59 02/13/19 17:13 Haloperidol (Haldol) 5 mg Q6H PRN ORAL Agitation 02/12/19 08:30 03/14/19 08:29 02/12/19 16:20 Heparin Sodium (Porcine) (Heparin 5000 units/ml) 5,000 units EVERY 12 HOURS SUBQ 02/12/19 09:00 03/14/19 08:59 02/13/19 20:39 Lorazepam (Ativan 2mg/ml 1ml) 0.5 mg Q4H PRN IV For Anxiety 02/12/19 08:15 02/19/19 08:14 Morphine Sulfate (Morphine Sulfate) 1 mg Q4H PRN IVP For Pain 02/12/19 08:15 02/19/19 08:14 02/13/19 20:43 Olanzapine (ZyPREXA) 2.5 mg TID PRN ORAL agitation 02/13/19 11:00 03/14/19 13:59 Ondansetron HCl (Zofran) 4 mg Q6H PRN IVP Nausea & Vomiting 02/12/19 08:15 03/14/19 08:14 Polyethylene Glycol (Miralax) 17 gm HSPRN PRN ORAL Constipation 02/12/19 08:15 03/14/19 08:14 Tamsulosin HCl (Flomax) 0.4 mg BID ORAL 02/12/19 18:00 03/14/19 17:59 02/13/19 17:13 Zolpidem Tartrate (Ambien) 5 mg HSPRN PRN ORAL Insomnia 02/12/19 08:15 02/19/19 08:14 Neurological/Psychiatric: Reports: anxiety, depressed, emotional problems Allergies: Uncoded Allergies: anesthetics unspecified (Allergy, Mild, 02/12/19) sulfonamides (Allergy, Mild, rash, 02/12/19) Objective Data Height (Feet): 5 Height (Inches): 6.00 Weight (Pounds): 109 General Appearance: alert, confused, agitated Appearance: disheveled Behavior Mannerisms: good eye contact Mental Status Exam - Affect: blunted Mental Status Exam - Mood: anxious, agitated Mental Status Exam - Thought P: illogical Mental Status Exam - Thought C: delusions (specify), paranoia Mental Status Exam - Suicidal: not present Assessment/Plan Problem List: (1) Dementia with behavioral disturbance ICD Codes: F03.91 - Unspecified dementia with behavioral disturbance SNOMED: 9138810299542 Status: unchanged Assessment/Plan: zyprexa standing zyprexa prn haldol prn Mckenna Davis MD Feb 13, 2019 22:08
--- NOTE | 2019-02-13 23:11 | Consultation ---
History of Present Illness General Date patient seen: Feb 14, 2019 Chief Complaint: Altered Level of Consciousness Referring physician: Dr. Robin Wright Reason for Consultation: AMS Present Illness HPI Arcadio Roth is a 68-year-old male from [facility] presents to [facility] with AMS. He is lethargic in bed, sleepy, confused, evaluated in the ER, and admitted to medical floor for further treatment. Upon interview, he is making unintelligible sounds with intermittent words and he is accompanied by a friend/ carer who states that he has not been this incoherent until recently and he was more ambulatory. Patient is tremulous and moving all four extremities antigravity, he follows commands intermittently. Allergies: Uncoded Allergies: anesthetics unspecified (Allergy, Mild, 02/12/19) sulfonamides (Allergy, Mild, rash, 02/12/19) Medication History Scheduled Ampicillin (Ampicillin Trihydrate), 500 MG ORAL Q6HR, (Reported) Aspirin (Ann Chewable), 81 MG PO DAILY, (Reported) Divalproex Sodium (Divalproex Sodium), 500 MG ORAL TID Lorazepam* (Ativan*), 1 MG ORAL BEDTIME, (Reported) Metoprolol Tartrate (Metoprolol Tartrate), 25 MG ORAL Q12HR Mirtazapine* (Remeron*), 15 MG ORAL BEDTIME, (Reported) Quetiapine Fumarate (Seroquel), 12.5 MG ORAL THREE TIMES A DAY, (Reported) Quetiapine Fumarate* (Seroquel*), 50 MG ORAL Q8HR Tamsulosin HCl (Flomax), 0.4 MG ORAL BEDTIME Scheduled PRN Chlorpromazine (Chlorpromazine HCl), 25 MG PO Q6HR PRN for Agitation, (Reported) Haloperidol* (Haldol*), 5 MG ORAL EVERY 4 HOURS PRN for Agitation, (Reported) Phenazopyridine Hcl* (Pyridium*), 100 MG ORAL DAILY PRN for Per rx protocol, ( Reported) Miscellaneous Medications Unable to Obtain Medications (Unable To Obtain Meds), (Reported) Patient History Healthcare decision maker Kateryna Roth Resuscitation status Advanced Directive on File Review of Systems All Other Systems: negative except mentioned in HPI ROS Narrative Unable to obtain from patient. Physical Exam General Appearance: confused, moderate distress, agitated, thin HEENT: normocephalic, atraumatic, anicteric, mucous membranes moist, PERRL Neck: normal alignment, supple, normal inspection Extremities: normal range of motion, no calf tenderness, normal capillary refill, non-pitting, no edema Skin Exam: normal pigmentation, warm/dry Neurologic: no motor/sensory deficits, disoriented, other - Nonfocal abnormal exam. Patient is tremulous, flapping of arms, appears to be muttering with occasionally audible words but not making sense. Intermittently follwoing commands. Last 24 Hour Vital Signs Date Time Temp Pulse Resp B/P (MAP) Pulse Ox O2 Delivery O2 Flow Rate FiO2 02/13/19 21:00 Room Air 02/13/19 20:32 99.1 107 15 126/81 (96) 02/13/19 16:00 97.5 81 18 121/71 (88) 95 02/13/19 12:00 98.0 82 19 115/76 (89) 97 02/13/19 09:00 Room Air 02/13/19 08:00 98.4 76 18 113/78 (90) 98 02/13/19 04:00 98.8 101 17 108/70 (83) 95 02/13/19 00:00 98.1 93 15 116/70 (85) 96 Intake and Output 02/12/19 02/13/19 18:59 06:59 Intake Total 705 ml 500 ml Output Total 700 ml Balance 705 ml -200 ml Intake IV Total 705 ml 500 ml Output Urine Total 700 ml # Bowel Movements 2 1 Laboratory Tests Test 02/13/19 06:46 White Blood Count 7.9 K/UL (4.8-10.8) Red Blood Count 4.44 M/UL (4.70-6.10) L Hemoglobin 13.8 G/DL (14.2-18.0) L Hematocrit 41.9 % (42.0-52.0) L Mean Corpuscular Volume 94 FL (80-99) Mean Corpuscular Hemoglobin 31.1 PG (27.0-31.0) H Mean Corpuscular Hemoglobin Concent 32.9 G/DL (32.0-36.0) Red Cell Distribution Width 12.5 % (11.6-14.8) Platelet Count 177 K/UL (150-450) Mean Platelet Volume 7.7 FL (6.5-10.1) Neutrophils (%) (Auto) 56.4 % (45.0-75.0) Lymphocytes (%) (Auto) 34.0 % (20.0-45.0) Monocytes (%) (Auto) 6.7 % (1.0-10.0) Eosinophils (%) (Auto) 2.1 % (0.0-3.0) Basophils (%) (Auto) 0.8 % (0.0-2.0) Sodium Level 148 MMOL/L (136-145) H Potassium Level 4.3 MMOL/L (3.5-5.1) Chloride Level 113 MMOL/L (98-107) H Carbon Dioxide Level 25 MMOL/L (21-32) Anion Gap 11 mmol/L (5-15) Blood Urea Nitrogen 83 mg/dL (7-18) H Creatinine 2.5 MG/DL (0.55-1.30) H Estimat Glomerular Filtration Rate 31.1 mL/min (>60) Glucose Level 121 MG/DL (74-106) H Hemoglobin A1c 6.0 % (4.3-6.0) Uric Acid 9.2 MG/DL (2.6-7.2) H Calcium Level 8.9 MG/DL (8.5-10.1) Phosphorus Level 2.6 MG/DL (2.5-4.9) Magnesium Level 2.1 MG/DL (1.8-2.4) Total Bilirubin 0.4 MG/DL (0.2-1.0) Gamma Glutamyl Transpeptidase 52 U/L (5-85) Aspartate Amino Transf (AST/SGOT) 33 U/L (15-37) Alanine Aminotransferase (ALT/SGPT) 24 U/L (12-78) Alkaline Phosphatase 88 U/L (46-116) Total Creatine Kinase 65 U/L (26-308) Troponin I 0.000 ng/mL (0.000-0.056) C-Reactive Protein, Quantitative 0.5 mg/dL (0.00-0.90) Pro-B-Type Natriuretic Peptide 97 pg/mL (0-125) Total Protein 7.5 G/DL (6.4-8.2) Albumin 2.7 G/DL (3.4-5.0) L Globulin 4.8 g/dL Albumin/Globulin Ratio 0.6 (1.0-2.7) L Triglycerides Level 53 MG/DL (30-150) Cholesterol Level 142 MG/DL (< 200) LDL Cholesterol 78 mg/dL (<100) HDL Cholesterol 54 MG/DL (40-60) Cholesterol/HDL Ratio 2.6 (3.3-4.4) L Free Prostate Specific Antigen Pending Percent Free Prostate Specific Ag Pending Prostate Specific Antigen Total Pending Vitamin B12 Level 1186 PG/ML (193-986) H Folate 13.3 NG/ML (8.6-58.9) Thyroid Stimulating Hormone (TSH) 1.082 uiU/mL (0.358-3.740) Valproic Acid (Depakene) Level 43 MCG/ML (50-100) L Height (Feet): 5 Height (Inches): 6.00 Weight (Pounds): 109 Medications Current Medications Medications (Trade) Dose Ordered Sig/Lucie Route PRN Reason Start Time Stop Time Status Last Admin Dose Admin Acetaminophen (Tylenol) 650 mg Q4H PRN ORAL Mild Pain/Temp > 100.5 02/12/19 08:15 03/14/19 08:14 Ceftriaxone Sodium 1 gm/ Dextrose 55 ml @ 110 mls/hr Q24H IVPB 02/12/19 10:00 02/19/19 09:59 02/13/19 10:20 Clonidine HCl (Catapres Tab) 0.1 mg Q4H PRN ORAL For High Blood Pressure 02/12/19 08:15 03/14/19 08:14 Dextrose 1,000 ml @ 100 mls/hr Q10H IV 02/12/19 16:00 03/14/19 15:59 02/13/19 21:51 Dextrose (Dextrose 50%) 25 ml Q30M PRN IV Hypoglycemia 02/12/19 08:15 03/14/19 08:14 Dextrose (Dextrose 50%) 50 ml Q30M PRN IV Hypoglycemia 02/12/19 08:15 03/14/19 08:14 Divalproex Sodium (Depakote) 500 mg EVERY 12 HOURS ORAL 02/12/19 09:00 03/14/19 08:59 02/13/19 20:38 Docusate Sodium (Colace) 100 mg TWICE A DAY ORAL 02/12/19 09:00 03/14/19 08:59 02/13/19 17:13 Haloperidol (Haldol) 5 mg Q6H PRN ORAL Agitation 02/12/19 08:30 03/14/19 08:29 02/12/19 16:20 Heparin Sodium (Porcine) (Heparin 5000 units/ml) 5,000 units EVERY 12 HOURS SUBQ 02/12/19 09:00 03/14/19 08:59 02/13/19 20:39 Lorazepam (Ativan 2mg/ml 1ml) 0.5 mg Q4H PRN IV For Anxiety 02/12/19 08:15 02/19/19 08:14 Morphine Sulfate (Morphine Sulfate) 1 mg Q4H PRN IVP For Pain 02/12/19 08:15 02/19/19 08:14 02/13/19 20:43 Olanzapine (ZyPREXA) 2.5 mg TID PRN ORAL agitation 02/13/19 11:00 03/14/19 13:59 Ondansetron HCl (Zofran) 4 mg Q6H PRN IVP Nausea & Vomiting 02/12/19 08:15 03/14/19 08:14 Polyethylene Glycol (Miralax) 17 gm HSPRN PRN ORAL Constipation 02/12/19 08:15 03/14/19 08:14 Tamsulosin HCl (Flomax) 0.4 mg BID ORAL 02/12/19 18:00 03/14/19 17:59 02/13/19 17:13 Zolpidem Tartrate (Ambien) 5 mg HSPRN PRN ORAL Insomnia 02/12/19 08:15 02/19/19 08:14 Assessment/Plan Problem List: (1) Dementia with behavioral disturbance Assessment & Plan: Baseline level of functioning and mentation is provided by friend accompanying patient at this time. She states that he is normally "grouchy" and will "swear regularly" but now he is not making sense and he is not able to sit out of bed or walk, he was previously able to walk with assistance she reports. ICD Codes: F03.91 - Unspecified dementia with behavioral disturbance SNOMED: 3110119021053 (2) UTI (urinary tract infection) ICD Codes: N39.0 - Urinary tract infection, site not specified SNOMED: 03180190 (3) Acute encephalopathy Assessment & Plan: Metabolic versus Central Cause CT Brain negative for acute findings and exam remains non focal at this time, marked by behavioral features. Consider EEG if no improvement in mentation/ functional status. Continue home dose of Valproate (level 47 at this time) - recheck again in 2-4 days. ICD Codes: G93.40 - Encephalopathy, unspecified SNOMED: 18736560, 038796340 (4) Failure to thrive syndrome, adult ICD Codes: R62.7 - Failure to thrive syndrome, adult SNOMED: 017645912 Assessment/Plan: Continue Q4 Hour Neuro Obs Na 135-145 Maintain normothermia Abx as per PM/ ID teams Maintain/ support sleep hygiene by keeping room dark and quiet at night. Avoid use of benzodiazapenes, narcotic opioids, or anticholinergic medications. Continue Valproate Lydia Obrien N.P. Feb 13, 2019 23:11
[2019-02-14] VITALS: BP 105/72
[2019-02-14 04:00] VITALS: BP 96/65
--- NOTE | 2019-02-14 06:48 | NUR ---
NURSE NOTES: Notified MD that patient is positive for ESBL in the urine.
--- NOTE | 2019-02-14 06:51 | NUR ---
HAND-OFF: Report given to Emery CARMEN.
[2019-02-14 07:00] LABS: EOSINOPHILS % (AUTO) 1.2 % (0.0-3.0); HEMOGLOBIN 13.3 G/DL (14.2-18.0); LYMPHOCYTES % (AUTO) 43.4 % (20.0-45.0); MEAN CORPUSCULAR VOLUME 93 FL (80-99); MONOCYTES % (AUTO) 7.8 % (1.0-10.0); NEUTROPHILS % (AUTO) 46.6 % (45.0-75.0); PLATELET COUNT 124 K/UL (150-450); RED BLOOD COUNT 4.19 M/UL (4.70-6.10); RED CELL DISTRIBUTION WIDTH 12.2 % (11.6-14.8); WHITE BLOOD COUNT 9.8 K/UL (4.8-10.8)
[2019-02-14 07:05] LABS: ANION GAP 8 mmol/L (5-15); BLOOD UREA NITROGEN 67 mg/dL (7-18); CALCIUM 8.5 MG/DL (8.5-10.1); CARBON DIOXIDE 25 MMOL/L (21-32); CHLORIDE 106 MMOL/L (98-107); CREATININE 2.3 MG/DL (0.55-1.30); POTASSIUM 4.1 MMOL/L (3.5-5.1); SODIUM 139 MMOL/L (136-145)
--- NOTE | 2019-02-14 07:35 | NUR ---
NURSE NOTES: Patient non-verbal; on room air, no sign of distress and shortness of breath; Patient on calory count started 02/13 lunch and its gonna be for 48 Hours; IV Right-upper arm flushes well; Left-Upper arm fluid running; condom cath in place and yellow urine drains well; bilateral soft restrain in place; side rails up x2, breaks engaged, bed at lowest position. at the bed side. will keep monitoring.
--- NOTE | 2019-02-14 07:50 | General Progress Note ---
Assessment/Plan Problem List: (1) Hepatitis C ICD Codes: B19.20 - Unspecified viral hepatitis C without hepatic coma SNOMED: 40877832 (2) HTN (hypertension) ICD Codes: I10 - Essential (primary) hypertension SNOMED: 12321427 (3) Failure to thrive syndrome, adult ICD Codes: R62.7 - Failure to thrive syndrome, adult SNOMED: 010101674 Status: unchanged Assessment/Plan: d/w the at length plan PEG placement for tomorrow Subjective ROS Limited/Unobtainable: No Allergies: Uncoded Allergies: anesthetics unspecified (Allergy, Mild, 02/12/19) sulfonamides (Allergy, Mild, rash, 02/12/19) Objective Last 24 Hour Vital Signs Date Time Temp Pulse Resp B/P (MAP) Pulse Ox O2 Delivery O2 Flow Rate FiO2 02/14/19 04:00 97.6 86 20 96/65 (75) 02/14/19 01:47 100.1 02/14/19 00:00 100.1 104 16 105/72 (83) 02/13/19 21:00 Room Air 02/13/19 20:32 99.1 107 15 126/81 (96) 02/13/19 16:00 97.5 81 18 121/71 (88) 95 02/13/19 12:00 98.0 82 19 115/76 (89) 97 02/13/19 09:00 Room Air 02/13/19 08:00 98.4 76 18 113/78 (90) 98 Intake and Output 02/13/19 02/14/19 19:00 07:00 Intake Total 1700 ml 2700 ml Output Total 800 ml 800 ml Balance 900 ml 1900 ml Intake IV Total 900 ml 1900 ml Other 800 ml 800 ml Output Urine Total 800 ml 800 ml # Voids 1 # Bowel Movements 1 2 Laboratory Tests 02/14/19 06:20: White Blood Count 9.8, Red Blood Count 4.19L, Hemoglobin 13.3L, Hematocrit 39.0L , Mean Corpuscular Volume 93, Mean Corpuscular Hemoglobin 31.7H, Mean Corpuscular Hemoglobin Concent 34.1, Red Cell Distribution Width 12.2, Platelet Count 124L, Mean Platelet Volume 7.5, Neutrophils (%) (Auto) 46.6, Lymphocytes ( %) (Auto) 43.4, Monocytes (%) (Auto) 7.8, Eosinophils (%) (Auto) 1.2, Basophils (%) (Auto) 1.0, Sodium Level 139, Potassium Level 4.1, Chloride Level 106, Carbon Dioxide Level 25, Anion Gap 8, Blood Urea Nitrogen 67H, Creatinine 2.3H, Estimat Glomerular Filtration Rate 34.3, Glucose Level 169H, Calcium Level 8.5 Height (Feet): 5 Height (Inches): 6.00 Weight (Pounds): 109 General Appearance: lethargic EENT: normal ENT inspection Neck: supple Cardiovascular: normal rate Respiratory/Chest: decreased breath sounds Abdomen: normal bowel sounds, non tender, soft Extremities: non-tender Min Samuel MD Feb 14, 2019 07:50
[2019-02-14 08:00] VITALS: BP 117/79
[2019-02-14] MEDS: Depakote 500mg tab ORAL SCH ×2 (08:11→20:52)
[2019-02-14] MEDS: Docusate 100mg cap ORAL SCH ×2 (08:11→17:06)
[2019-02-14] MEDS: Tamsulosin 0.4mg cap ORAL SCH ×2 (08:11→17:06)
[2019-02-14] MEDS: Heparin 5000 units/ml inj SUBQ SCH ×2 (08:12→20:54)
--- NOTE | 2019-02-14 09:22 | General Progress Note ---
Assessment/Plan Problem List: (1) UTI (urinary tract infection) ICD Codes: N39.0 - Urinary tract infection, site not specified SNOMED: 02528323 (2) CKD (chronic kidney disease) ICD Codes: N18.9 - CKD (chronic kidney disease) SNOMED: 769286401 (3) ARF (acute renal failure) ICD Codes: N17.9 - ARF (acute renal failure) SNOMED: 31107430 (4) Failure to thrive syndrome, adult ICD Codes: R62.7 - Failure to thrive syndrome, adult SNOMED: 798449708 (5) Hepatitis C ICD Codes: B19.20 - Unspecified viral hepatitis C without hepatic coma SNOMED: 37989588 (6) HTN (hypertension) ICD Codes: I10 - Essential (primary) hypertension SNOMED: 70542411 Status: stable, progressing Assessment/Plan: pt diet abx gi eval cbc bmp am Subjective Constitutional: Reports: weakness Allergies: Uncoded Allergies: anesthetics unspecified (Allergy, Mild, 02/12/19) sulfonamides (Allergy, Mild, rash, 02/12/19) All Systems: reviewed and negative except above Subjective sleepy calm Objective Last 24 Hour Vital Signs Date Time Temp Pulse Resp B/P (MAP) Pulse Ox O2 Delivery O2 Flow Rate FiO2 02/14/19 08:00 98.7 79 18 117/79 (92) 98 02/14/19 04:00 97.6 86 20 96/65 (75) 02/14/19 01:47 100.1 02/14/19 00:00 100.1 104 16 105/72 (83) 02/13/19 21:00 Room Air 02/13/19 20:32 99.1 107 15 126/81 (96) 02/13/19 16:00 97.5 81 18 121/71 (88) 95 02/13/19 12:00 98.0 82 19 115/76 (89) 97 Intake and Output 02/13/19 02/14/19 19:00 07:00 Intake Total 1700 ml 2700 ml Output Total 800 ml 800 ml Balance 900 ml 1900 ml Intake IV Total 900 ml 1900 ml Other 800 ml 800 ml Output Urine Total 800 ml 800 ml # Voids 1 # Bowel Movements 1 2 Laboratory Tests 02/14/19 06:20: White Blood Count 9.8, Red Blood Count 4.19L, Hemoglobin 13.3L, Hematocrit 39.0L , Mean Corpuscular Volume 93, Mean Corpuscular Hemoglobin 31.7H, Mean Corpuscular Hemoglobin Concent 34.1, Red Cell Distribution Width 12.2, Platelet Count 124L, Mean Platelet Volume 7.5, Neutrophils (%) (Auto) 46.6, Lymphocytes ( %) (Auto) 43.4, Monocytes (%) (Auto) 7.8, Eosinophils (%) (Auto) 1.2, Basophils (%) (Auto) 1.0, Sodium Level 139, Potassium Level 4.1, Chloride Level 106, Carbon Dioxide Level 25, Anion Gap 8, Blood Urea Nitrogen 67H, Creatinine 2.3H, Estimat Glomerular Filtration Rate 34.3, Glucose Level 169H, Calcium Level 8.5 Height (Feet): 5 Height (Inches): 6.00 Weight (Pounds): 109 General Appearance: lethargic EENT: normal ENT inspection Neck: normal alignment Cardiovascular: normal peripheral pulses, normal rate, regular rhythm Respiratory/Chest: chest wall non-tender, lungs clear, normal breath sounds Abdomen: normal bowel sounds, non tender, soft Extremities: normal inspection Edema: no edema noted Arm (L), no edema noted Arm (R), no edema noted Leg (L), no edema noted Leg (R), no edema noted Pedal (L), no edema noted Pedal (R), no edema noted Generalized Neurologic: motor weakness Skin: normal pigmentation, warm/dry Jaleel Moon DO Feb 14, 2019 09:22
[2019-02-14 12:00] VITALS: BP 121/80
--- NOTE | 2019-02-14 13:06 | Cardiac Electrophysiology PN ---
Assessment/Plan Assessment/Plan 1. Hypotension in a patient with history of hypertension. Resolved on IV antibiotic. Echo showed Nl EF. 2. History of dementia. Head CT is negative. 3. Renal failure and hypernatremia with sodium 154 with a BUN of 99, creatinine 3.4. It is likely due to dehydration. On IV fluids. 4. Dehydration. 5. Negative troponin. 6. Dysphagia, PEG pending per Dr Lizzie OBANDO RN Subjective Subjective No new events.Nonverbal in restraints. Not eating. PEG scheduled for tomorrow Objective Last 24 Hour Vital Signs Date Time Temp Pulse Resp B/P (MAP) Pulse Ox O2 Delivery O2 Flow Rate FiO2 02/14/19 12:00 98.0 96 18 121/80 (94) 98 02/14/19 09:00 Room Air 02/14/19 08:00 98.7 79 18 117/79 (92) 98 02/14/19 04:00 97.6 86 20 96/65 (75) 02/14/19 01:47 100.1 02/14/19 00:00 100.1 104 16 105/72 (83) 02/13/19 21:00 Room Air 02/13/19 20:32 99.1 107 15 126/81 (96) 02/13/19 16:00 97.5 81 18 121/71 (88) 95 Intake and Output 02/13/19 02/14/19 19:00 07:00 Intake Total 1700 ml 2800 ml Output Total 800 ml 800 ml Balance 900 ml 2000 ml Intake IV Total 900 ml 2000 ml Other 800 ml 800 ml Output Urine Total 800 ml 800 ml # Voids 1 # Bowel Movements 1 2 Laboratory Tests Test 02/14/19 06:20 White Blood Count 9.8 K/UL (4.8-10.8) Red Blood Count 4.19 M/UL (4.70-6.10) L Hemoglobin 13.3 G/DL (14.2-18.0) L Hematocrit 39.0 % (42.0-52.0) L Mean Corpuscular Volume 93 FL (80-99) Mean Corpuscular Hemoglobin 31.7 PG (27.0-31.0) H Mean Corpuscular Hemoglobin Concent 34.1 G/DL (32.0-36.0) Red Cell Distribution Width 12.2 % (11.6-14.8) Platelet Count 124 K/UL (150-450) L Mean Platelet Volume 7.5 FL (6.5-10.1) Neutrophils (%) (Auto) 46.6 % (45.0-75.0) Lymphocytes (%) (Auto) 43.4 % (20.0-45.0) Monocytes (%) (Auto) 7.8 % (1.0-10.0) Eosinophils (%) (Auto) 1.2 % (0.0-3.0) Basophils (%) (Auto) 1.0 % (0.0-2.0) Sodium Level 139 MMOL/L (136-145) Potassium Level 4.1 MMOL/L (3.5-5.1) Chloride Level 106 MMOL/L (98-107) Carbon Dioxide Level 25 MMOL/L (21-32) Anion Gap 8 mmol/L (5-15) Blood Urea Nitrogen 67 mg/dL (7-18) H Creatinine 2.3 MG/DL (0.55-1.30) H Estimat Glomerular Filtration Rate 34.3 mL/min (>60) Glucose Level 169 MG/DL (74-106) H Calcium Level 8.5 MG/DL (8.5-10.1) Microbiology Date/Time Source Procedure Growth Status 02/11/19 23:19 Nasal Nares MRSA Culture - Final NO METHICILLIN RESISTANT STAPH AUREUS... Complete 02/12/19 13:50 Urine,Clean Catch Urine Culture - Preliminary Gram Negative Jhonatan Resulted 02/12/19 03:20 Urine,Clean Catch Urine Culture - Final Proteus Mirabilis Esbl Complete 02/11/19 23:19 Rectum - Final NO CARBAPENEM-RESISTANT ENTEROBACTERI... Complete 02/11/19 23:19 Rectum VRE Culture - Final Enterococcus Faecium - Vre Complete 02/11/19 23:19 Arm Right Blood Culture - Preliminary NO GROWTH AFTER 48 HOURS Resulted 02/11/19 23:19 Arm Left Blood Culture - Preliminary NO GROWTH AFTER 48 HOURS Resulted Objective HEAD AND NECK: No JVD. LUNGS: Coarse rhonchi. CARDIOVASCULAR: Shows regular S1 and S2 with no gallop or murmur. ABDOMEN: Soft. EXTREMITIES: No pitting edema. Bryce Ba MD Feb 14, 2019 13:06
[2019-02-14] MEDS: Piperacillin/Tazobactam 3.375 GM in NS 110 ML IVPB SCH ×2 (13:22→21:03)
--- NOTE | 2019-02-14 14:04 | NUR ---
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 PYELONEPHRITIS . VS: BP 108/74, P 101, T 96.7, RR 20, SpO2 97 RBC 4.19, Hgb 13.3, Hct 39.0, BUN 67, CR 2.3, IS:ZOSYN 110ml IVPB FLOMAX 0.4mg D5 x1L IV HEPARIN SUBQ DEPAKOTE 500mg MED/SURG STATUS
--- NOTE | 2019-02-14 14:49 | Pulmonology Progress Note ---
Assessment/Plan Problems: (1) Acute encephalopathy (2) Sepsis (3) ATN (acute tubular necrosis) (4) Pyelonephritis (5) Prostate cancer (6) Cerebral vascular disease (7) Methadone maintenance therapy patient (8) HTN (hypertension) (9) Hepatitis C Assessment/Plan bun/creatinine improving neuro consult appreciated more awake now iv fluids iv abx check cultures neuro f/u hold mind altering meds Subjective ROS Limited/Unobtainable: No Constitutional: Reports: no symptoms HEENT: Repors: no symptoms Respiratory: Reports: no symptoms Allergies: Uncoded Allergies: anesthetics unspecified (Allergy, Mild, 02/12/19) sulfonamides (Allergy, Mild, rash, 02/12/19) Objective Last 24 Hour Vital Signs Date Time Temp Pulse Resp B/P (MAP) Pulse Ox O2 Delivery O2 Flow Rate FiO2 02/14/19 12:00 98.0 96 18 121/80 (94) 98 02/14/19 09:00 Room Air 02/14/19 08:00 98.7 79 18 117/79 (92) 98 02/14/19 04:00 97.6 86 20 96/65 (75) 02/14/19 01:47 100.1 02/14/19 00:00 100.1 104 16 105/72 (83) 02/13/19 21:00 Room Air 02/13/19 20:32 99.1 107 15 126/81 (96) 02/13/19 16:00 97.5 81 18 121/71 (88) 95 Intake and Output 02/13/19 02/14/19 19:00 07:00 Intake Total 1700 ml 2800 ml Output Total 800 ml 800 ml Balance 900 ml 2000 ml Intake IV Total 900 ml 2000 ml Other 800 ml 800 ml Output Urine Total 800 ml 800 ml # Voids 1 # Bowel Movements 1 2 Objective General Appearance: cachectic Lines, tubes and drains: peripheral HEENT: normocephalic, atraumatic Neck: non-tender, normal alignment Respiratory/Chest: chest wall non-tender, lungs clear Cardiovascular/Chest: normal peripheral pulses, normal rate Abdomen: normal bowel sounds Extremities: normal range of motion Microbiology Date/Time Source Procedure Growth Status 02/11/19 23:19 Nasal Nares MRSA Culture - Final NO METHICILLIN RESISTANT STAPH AUREUS... Complete 02/12/19 13:50 Urine,Clean Catch Urine Culture - Preliminary Gram Negative Jhonatan Resulted 02/12/19 03:20 Urine,Clean Catch Urine Culture - Final Proteus Mirabilis Esbl Complete 02/11/19 23:19 Rectum - Final NO CARBAPENEM-RESISTANT ENTEROBACTERI... Complete 02/11/19 23:19 Rectum VRE Culture - Final Enterococcus Faecium - Vre Complete 02/11/19 23:19 Arm Right Blood Culture - Preliminary NO GROWTH AFTER 48 HOURS Resulted 02/11/19 23:19 Arm Left Blood Culture - Preliminary NO GROWTH AFTER 48 HOURS Resulted Laboratory Tests 02/14/19 06:20: White Blood Count 9.8, Red Blood Count 4.19L, Hemoglobin 13.3L, Hematocrit 39.0L , Mean Corpuscular Volume 93, Mean Corpuscular Hemoglobin 31.7H, Mean Corpuscular Hemoglobin Concent 34.1, Red Cell Distribution Width 12.2, Platelet Count 124L, Mean Platelet Volume 7.5, Neutrophils (%) (Auto) 46.6, Lymphocytes ( %) (Auto) 43.4, Monocytes (%) (Auto) 7.8, Eosinophils (%) (Auto) 1.2, Basophils (%) (Auto) 1.0, Sodium Level 139, Potassium Level 4.1, Chloride Level 106, Carbon Dioxide Level 25, Anion Gap 8, Blood Urea Nitrogen 67H, Creatinine 2.3H, Estimat Glomerular Filtration Rate 34.3, Glucose Level 169H, Calcium Level 8.5 Current Medications Medications (Trade) Dose Ordered Sig/Lucie Route PRN Reason Start Time Stop Time Status Last Admin Dose Admin Acetaminophen (Tylenol) 650 mg Q4H PRN ORAL Mild Pain/Temp > 100.5 02/12/19 08:15 03/14/19 08:14 02/14/19 00:45 Clonidine HCl (Catapres Tab) 0.1 mg Q4H PRN ORAL For High Blood Pressure 02/12/19 08:15 03/14/19 08:14 Dextrose 1,000 ml @ 100 mls/hr Q10H IV 02/12/19 16:00 03/14/19 15:59 02/14/19 08:12 Dextrose (Dextrose 50%) 25 ml Q30M PRN IV Hypoglycemia 02/12/19 08:15 03/14/19 08:14 Dextrose (Dextrose 50%) 50 ml Q30M PRN IV Hypoglycemia 02/12/19 08:15 03/14/19 08:14 Divalproex Sodium (Depakote) 500 mg EVERY 12 HOURS ORAL 02/12/19 09:00 03/14/19 08:59 02/14/19 08:11 Docusate Sodium (Colace) 100 mg TWICE A DAY ORAL 02/12/19 09:00 03/14/19 08:59 02/14/19 08:11 Haloperidol (Haldol) 5 mg Q6H PRN ORAL Agitation 02/12/19 08:30 03/14/19 08:29 02/12/19 16:20 Heparin Sodium (Porcine) (Heparin 5000 units/ml) 5,000 units EVERY 12 HOURS SUBQ 02/12/19 09:00 03/14/19 08:59 02/13/19 20:39 Lorazepam (Ativan 2mg/ml 1ml) 0.5 mg Q4H PRN IV For Anxiety 02/12/19 08:15 02/19/19 08:14 Morphine Sulfate (Morphine Sulfate) 1 mg Q4H PRN IVP For Pain 02/12/19 08:15 02/19/19 08:14 02/13/19 20:43 Olanzapine (ZyPREXA) 2.5 mg TID PRN ORAL agitation 02/13/19 11:00 03/14/19 13:59 Ondansetron HCl (Zofran) 4 mg Q6H PRN IVP Nausea & Vomiting 02/12/19 08:15 03/14/19 08:14 Piperacillin Sod/ Tazobactam Sod 3.375 gm/Sodium Chloride 110 ml @ 27.5 mls/hr EVERY 8 HOURS IVPB 02/14/19 14:00 02/19/19 13:59 02/14/19 13:22 Polyethylene Glycol (Miralax) 17 gm HSPRN PRN ORAL Constipation 02/12/19 08:15 03/14/19 08:14 Tamsulosin HCl (Flomax) 0.4 mg BID ORAL 02/12/19 18:00 03/14/19 17:59 02/14/19 08:11 Zolpidem Tartrate (Ambien) 5 mg HSPRN PRN ORAL Insomnia 02/12/19 08:15 02/19/19 08:14 German Mooney MD Feb 14, 2019 14:49
--- NOTE | 2019-02-14 15:46 | NUR ---
PT Note PT escobar completed, treatment initiated. Patient has generalized rigidity, requiring maxA in all bed mobility. Patient was unable to assume symmetrical sitting at the EOB as he tends to go into severe retropulsion. Patient can benefit from PT services to increase his ROM, muscle strength and balance to improve his functional mobility. Addendum: 02/14/19 at 1547 by MIRIAM YANEZ PT Amended: Links added.
[2019-02-14 16:00] VITALS: BP 115/79
--- NOTE | 2019-02-14 19:45 | NUR ---
HAND-OFF: Report given to KERMIT Lauren.
--- NOTE | 2019-02-14 19:46 | NUR ---
NURSE NOTES: Patient non-verbal; on room air, no sign of distress or shortness of breath; Patient on calorie count started 02/13 lunch to continue for 48 Hours; IV Right-upper arm flushes well; Left-Upper arm fluid running; condom cath in place and yellow urine drains well; bilateral soft restraints in place; side rails up x2, bed locked in lowest position, bed alarm on. at the bed side. will keep monitoring.
[2019-02-14 20:00] VITALS: BP 108/74
--- NOTE | 2019-02-14 20:45 | NUR ---
NURSE NOTES: Withheld heparin as platelets were at 124, under normal range.
--- NOTE | 2019-02-14 22:13 | Nephrology Progress Note ---
Assessment/Plan Problem List: (1) ARF (acute renal failure) Assessment: cr lowering (2) CKD (chronic kidney disease) (3) Failure to thrive syndrome, adult (4) Hypernatremia Assessment Acute encephalopathy Psych history & Paranoia h/o Prostate cancer CKD (chronic kidney disease), superimposed ARF / Dehydration h/o Hepatitis C h/o Dementia Plan D5w Hydrate monitor renal parameters keep BP and BS in check per orders Subjective ROS Limited/Unobtainable: No Interval Events/Complaints seen at 11 am Constitutional: Reports: malaise Objective Objective Last 24 Hour Vital Signs Date Time Temp Pulse Resp B/P (MAP) Pulse Ox O2 Delivery O2 Flow Rate FiO2 02/14/19 21:00 Room Air 02/14/19 20:00 96.7 101 20 108/74 (85) 97 02/14/19 16:00 98.3 86 18 115/79 (91) 98 02/14/19 12:00 98.0 96 18 121/80 (94) 98 02/14/19 09:00 Room Air 02/14/19 08:00 98.7 79 18 117/79 (92) 98 02/14/19 04:00 97.6 86 20 96/65 (75) 02/14/19 01:47 100.1 02/14/19 00:00 100.1 104 16 105/72 (83) Intake and Output 02/13/19 02/14/19 19:00 07:00 Intake Total 1700 ml 2800 ml Output Total 800 ml 800 ml Balance 900 ml 2000 ml Intake IV Total 900 ml 2000 ml Other 800 ml 800 ml Output Urine Total 800 ml 800 ml # Voids 1 # Bowel Movements 1 2 Laboratory Tests 02/14/19 06:20: White Blood Count 9.8, Red Blood Count 4.19L, Hemoglobin 13.3L, Hematocrit 39.0L , Mean Corpuscular Volume 93, Mean Corpuscular Hemoglobin 31.7H, Mean Corpuscular Hemoglobin Concent 34.1, Red Cell Distribution Width 12.2, Platelet Count 124L, Mean Platelet Volume 7.5, Neutrophils (%) (Auto) 46.6, Lymphocytes ( %) (Auto) 43.4, Monocytes (%) (Auto) 7.8, Eosinophils (%) (Auto) 1.2, Basophils (%) (Auto) 1.0, Sodium Level 139, Potassium Level 4.1, Chloride Level 106, Carbon Dioxide Level 25, Anion Gap 8, Blood Urea Nitrogen 67H, Creatinine 2.3H, Estimat Glomerular Filtration Rate 34.3, Glucose Level 169H, Calcium Level 8.5 Height (Feet): 5 Height (Inches): 6.00 Weight (Pounds): 109 General Appearance: no apparent distress Objective no change Tanner Grant MD Feb 14, 2019 22:13
--- NOTE | 2019-02-14 23:51 | Neurology Progress Note ---
Interim History Interim History ROS Limited/Unobtainable: Yes Complaints: AMS Objective Physical Exam Last Vital Signs Date Time Temp Pulse Resp B/P (MAP) Pulse Ox O2 Delivery O2 Flow Rate FiO2 02/14/19 21:00 Room Air 02/14/19 20:00 96.7 101 20 108/74 (85) 97 Laboratory Tests Test 02/14/19 06:20 White Blood Count 9.8 K/UL (4.8-10.8) Red Blood Count 4.19 M/UL (4.70-6.10) L Hemoglobin 13.3 G/DL (14.2-18.0) L Hematocrit 39.0 % (42.0-52.0) L Mean Corpuscular Volume 93 FL (80-99) Mean Corpuscular Hemoglobin 31.7 PG (27.0-31.0) H Mean Corpuscular Hemoglobin Concent 34.1 G/DL (32.0-36.0) Red Cell Distribution Width 12.2 % (11.6-14.8) Platelet Count 124 K/UL (150-450) L Mean Platelet Volume 7.5 FL (6.5-10.1) Neutrophils (%) (Auto) 46.6 % (45.0-75.0) Lymphocytes (%) (Auto) 43.4 % (20.0-45.0) Monocytes (%) (Auto) 7.8 % (1.0-10.0) Eosinophils (%) (Auto) 1.2 % (0.0-3.0) Basophils (%) (Auto) 1.0 % (0.0-2.0) Sodium Level 139 MMOL/L (136-145) Potassium Level 4.1 MMOL/L (3.5-5.1) Chloride Level 106 MMOL/L (98-107) Carbon Dioxide Level 25 MMOL/L (21-32) Anion Gap 8 mmol/L (5-15) Blood Urea Nitrogen 67 mg/dL (7-18) H Creatinine 2.3 MG/DL (0.55-1.30) H Estimat Glomerular Filtration Rate 34.3 mL/min (>60) Glucose Level 169 MG/DL (74-106) H Calcium Level 8.5 MG/DL (8.5-10.1) Impression/Recommendations Problems: (1) Dementia with behavioral disturbance (2) UTI (urinary tract infection) (3) Acute encephalopathy (4) Failure to thrive syndrome, adult Status: stable, progressing Lydia Obrien N.P. Feb 14, 2019 23:51
[2019-02-15] VITALS (10 sets, daily range): BP systolic 92–128; BP diastolic 56–88
[2019-02-15] MEDS: Morphine Sulfate 2mg/ml Inj(IV/IM USE ONLY) IVP PRN (01:32)
[2019-02-15] MEDS: Piperacillin/Tazobactam 3.375 GM in NS 110 ML IVPB SCH ×3 (05:42→22:26)
[2019-02-15 06:12] LABS: BASOPHILS % (AUTO) 0.2 % (0.0-2.0); EOSINOPHILS % (AUTO) 1.1 % (0.0-3.0); HEMATOCRIT 42.3 % (42.0-52.0); HEMOGLOBIN 14.1 G/DL (14.2-18.0); LYMPHOCYTES % (AUTO) 36.8 % (20.0-45.0); MEAN CORPUSCULAR VOLUME 93 FL (80-99); MONOCYTES % (AUTO) 8.8 % (1.0-10.0); NEUTROPHILS % (AUTO) 53.1 % (45.0-75.0); PLATELET COUNT 157 K/UL (150-450); RED BLOOD COUNT 4.53 M/UL (4.70-6.10); RED CELL DISTRIBUTION WIDTH 12.3 % (11.6-14.8); WHITE BLOOD COUNT 10.7 K/UL (4.8-10.8)
[2019-02-15 06:28] LABS: ANION GAP 10 mmol/L (5-15); BLOOD UREA NITROGEN 59 mg/dL (7-18); CALCIUM 8.8 MG/DL (8.5-10.1); CARBON DIOXIDE 25 MMOL/L (21-32); CHLORIDE 105 MMOL/L (98-107); CREATININE 2.3 MG/DL (0.55-1.30); SODIUM 140 MMOL/L (136-145)
[2019-02-15 07:27] LABS: ALANINE AMINOTRANSFERASE 22 U/L (12-78); ALBUMIN 2.5 G/DL (3.4-5.0); ALKALINE PHOSPHATASE 90 U/L (46-116); ASPARTATE AMINO TRANSFERASE 30 U/L (15-37); BILIRUBIN,DIRECT < 0.1 MG/DL (0.0-0.3); BILIRUBIN,TOTAL 0.4 MG/DL (0.2-1.0); PHOSPHORUS 2.7 MG/DL (2.5-4.9)
[2019-02-15] MEDS: Docusate 100mg cap ORAL SCH ×2 (09:00→17:05)
[2019-02-15] MEDS: Depakote 500mg tab ORAL SCH ×2 (09:00→20:08)
[2019-02-15] MEDS: Heparin 5000 units/ml inj SUBQ SCH ×2 (09:00→20:12)
[2019-02-15] MEDS: Tamsulosin 0.4mg cap ORAL SCH ×2 (09:00→17:05)
--- NOTE | 2019-02-15 09:00 | NUR ---
NURSE NOTES: Pt went down for G tube placement with interventional radiology to GI lab.
--- NOTE | 2019-02-15 09:09 | Anethesia Preoperative Eval ---
Anesthesia Pre-op PMH/ROS General Date of Evaluation: Feb 15, 2019 Time of Evaluation: 09:06 Anesthesiologist: Irene ASA Score: ASA 4 Mallampati Score Class I : Soft palate, uvula, fauces, pillars visible Class II: Soft palate, uvula, fauces visible Class III: Soft palate, base of uvula visible Class IV: Only hard plate visible Mallampati Classification: Class III Surgeon: Lizzie Diagnosis: Dysphagia Surgical Procedure: EGD PEG tube placement Social History: drug use - h/o Allergies: Uncoded Allergies: anesthetics unspecified (Allergy, Mild, 02/12/19) sulfonamides (Allergy, Mild, rash, 02/12/19) Medications: see eMAR Patient NPO?: Yes Past Medical History Cardiovascular: Reports: HTN; Denies: CAD, NC, valve dz, arrhythmia, other Pulmonary: Denies: asthma, COPD, EDNA, other Gastrointestinal/Genitourinary: Reports: GERD, CRI, other - hep. C; Denies: ESRD Neurologic/Psychiatric: Reports: dementia, CVA; Denies: depression/anxiety, TIA, other Endocrine: Reports: hypothyroidism; Denies: DM, steroids, other HEENT: Denies: cataract (L), cataract (R), glaucoma, KNIK (L), KNIK (R), other Hematology/Immune: Denies: anemia, DVT, bleeding disorder, other Musculoskeletal/Integumentary: Denies: OA, RA, DJD, DDD, edema, other Other: other - malnourished PMH Narrative: as above PSxH Narrative: see H&P Anesthesia Pre-op Phys. Exam Physician Exam Last Vital Signs Date Time Temp Pulse Resp B/P (MAP) Pulse Ox O2 Delivery O2 Flow Rate FiO2 02/15/19 04:00 99.3 107 18 128/88 (101) 98 02/14/19 21:00 Room Air Constitutional: NAD Neurologic: other - unable to obtaine Cardiovascular: RRR Respiratory: CTA Gastrointestinal: S/NT/ND Airway Exam Mallampati Score: Class III MO: limited ROM: limited Teeth: missing Dentures: no upper, no lower Anesthesia Pre-op A/P Labs Hematology Test 02/15/19 04:45 White Blood Count 10.7 K/UL (4.8-10.8) Red Blood Count 4.53 M/UL (4.70-6.10) L Hemoglobin 14.1 G/DL (14.2-18.0) L Hematocrit 42.3 % (42.0-52.0) Mean Corpuscular Volume 93 FL (80-99) Mean Corpuscular Hemoglobin 31.2 PG (27.0-31.0) H Mean Corpuscular Hemoglobin Concent 33.4 G/DL (32.0-36.0) Red Cell Distribution Width 12.3 % (11.6-14.8) Platelet Count 157 K/UL (150-450) Mean Platelet Volume 8.3 FL (6.5-10.1) Neutrophils (%) (Auto) 53.1 % (45.0-75.0) Lymphocytes (%) (Auto) 36.8 % (20.0-45.0) Monocytes (%) (Auto) 8.8 % (1.0-10.0) Eosinophils (%) (Auto) 1.1 % (0.0-3.0) Basophils (%) (Auto) 0.2 % (0.0-2.0) Chemistry Test 02/15/19 04:45 Sodium Level 140 MMOL/L (136-145) Potassium Level 4.0 MMOL/L (3.5-5.1) Chloride Level 105 MMOL/L (98-107) Carbon Dioxide Level 25 MMOL/L (21-32) Anion Gap 10 mmol/L (5-15) Blood Urea Nitrogen 59 mg/dL (7-18) H Creatinine 2.3 MG/DL (0.55-1.30) H Estimat Glomerular Filtration Rate 34.3 mL/min (>60) Glucose Level 112 MG/DL (74-106) H Uric Acid 7.5 MG/DL (2.6-7.2) H Calcium Level 8.8 MG/DL (8.5-10.1) Phosphorus Level 2.7 MG/DL (2.5-4.9) Magnesium Level 1.9 MG/DL (1.8-2.4) Total Bilirubin 0.4 MG/DL (0.2-1.0) Direct Bilirubin < 0.1 MG/DL (0.0-0.3) Aspartate Amino Transf (AST/SGOT) 30 U/L (15-37) Alanine Aminotransferase (ALT/SGPT) 22 U/L (12-78) Alkaline Phosphatase 90 U/L (46-116) Total Protein 7.4 G/DL (6.4-8.2) Albumin 2.5 G/DL (3.4-5.0) Conrad Agudelo MD Feb 15, 2019 09:09
--- NOTE | 2019-02-15 09:23 | General Progress Note ---
Assessment/Plan Problem List: (1) UTI (urinary tract infection) ICD Codes: N39.0 - Urinary tract infection, site not specified SNOMED: 16303797 (2) CKD (chronic kidney disease) ICD Codes: N18.9 - CKD (chronic kidney disease) SNOMED: 266491766 (3) ARF (acute renal failure) ICD Codes: N17.9 - ARF (acute renal failure) SNOMED: 10186518 (4) Failure to thrive syndrome, adult ICD Codes: R62.7 - Failure to thrive syndrome, adult SNOMED: 076429827 (5) Hepatitis C ICD Codes: B19.20 - Unspecified viral hepatitis C without hepatic coma SNOMED: 75675832 (6) HTN (hypertension) ICD Codes: I10 - Essential (primary) hypertension SNOMED: 34459474 Status: stable, progressing Assessment/Plan: pt diet abx gi eval cbc bmp am dc plan snf Subjective Constitutional: Reports: weakness Allergies: Uncoded Allergies: anesthetics unspecified (Allergy, Mild, 02/12/19) sulfonamides (Allergy, Mild, rash, 02/12/19) All Systems: reviewed and negative except above Subjective sleepy calm Objective Last 24 Hour Vital Signs Date Time Temp Pulse Resp B/P (MAP) Pulse Ox O2 Delivery O2 Flow Rate FiO2 02/15/19 04:00 99.3 107 18 128/88 (101) 98 02/15/19 02:02 97.4 02/15/19 00:00 97.4 98 20 119/71 (87) 97 02/14/19 21:00 Room Air 02/14/19 20:00 96.7 101 20 108/74 (85) 97 02/14/19 16:00 98.3 86 18 115/79 (91) 98 02/14/19 12:00 98.0 96 18 121/80 (94) 98 Intake and Output 02/14/19 02/15/19 18:59 06:59 Intake Total 710.0 ml 610.0 ml Output Total 1400 ml 900 ml Balance -690.0 ml -290.0 ml Intake IV Total 710.0 ml 610.0 ml Output Urine Total 1400 ml 900 ml # Voids 2 # Bowel Movements 1 1 Laboratory Tests 02/15/19 04:45: White Blood Count 10.7, Red Blood Count 4.53L, Hemoglobin 14.1L, Hematocrit 42.3 , Mean Corpuscular Volume 93, Mean Corpuscular Hemoglobin 31.2H, Mean Corpuscular Hemoglobin Concent 33.4, Red Cell Distribution Width 12.3, Platelet Count 157, Mean Platelet Volume 8.3, Neutrophils (%) (Auto) 53.1, Lymphocytes (% ) (Auto) 36.8, Monocytes (%) (Auto) 8.8, Eosinophils (%) (Auto) 1.1, Basophils ( %) (Auto) 0.2, Sodium Level 140, Potassium Level 4.0, Chloride Level 105, Carbon Dioxide Level 25, Anion Gap 10, Blood Urea Nitrogen 59H, Creatinine 2.3H , Estimat Glomerular Filtration Rate 34.3, Glucose Level 112H, Uric Acid 7.5H, Calcium Level 8.8, Phosphorus Level 2.7, Magnesium Level 1.9, Total Bilirubin 0.4, Direct Bilirubin < 0.1, Aspartate Amino Transf (AST/SGOT) 30, Alanine Aminotransferase (ALT/SGPT) 22, Alkaline Phosphatase 90, Total Protein 7.4, Albumin 2.5L Height (Feet): 5 Height (Inches): 6.00 Weight (Pounds): 109 General Appearance: lethargic EENT: normal ENT inspection Neck: normal alignment Cardiovascular: normal peripheral pulses, normal rate, regular rhythm Respiratory/Chest: chest wall non-tender, lungs clear, normal breath sounds Abdomen: normal bowel sounds, non tender, soft Extremities: normal inspection Edema: no edema noted Arm (L), no edema noted Arm (R), no edema noted Leg (L), no edema noted Leg (R), no edema noted Pedal (L), no edema noted Pedal (R), no edema noted Generalized Neurologic: motor weakness Skin: normal pigmentation, warm/dry Jaleel Moon DO Feb 15, 2019 09:23
--- NOTE | 2019-02-15 09:26 | General Progress Note ---
Assessment/Plan Problem List: (1) Hepatitis C ICD Codes: B19.20 - Unspecified viral hepatitis C without hepatic coma SNOMED: 13478139 (2) HTN (hypertension) ICD Codes: I10 - Essential (primary) hypertension SNOMED: 18159335 (3) Failure to thrive syndrome, adult ICD Codes: R62.7 - Failure to thrive syndrome, adult SNOMED: 029936930 Status: stable, progressing Assessment/Plan: d/w the at length plan PEG placement for today Subjective ROS Limited/Unobtainable: No Allergies: Uncoded Allergies: anesthetics unspecified (Allergy, Mild, 02/12/19) sulfonamides (Allergy, Mild, rash, 02/12/19) Objective Last 24 Hour Vital Signs Date Time Temp Pulse Resp B/P (MAP) Pulse Ox O2 Delivery O2 Flow Rate FiO2 02/15/19 04:00 99.3 107 18 128/88 (101) 98 02/15/19 02:02 97.4 02/15/19 00:00 97.4 98 20 119/71 (87) 97 02/14/19 21:00 Room Air 02/14/19 20:00 96.7 101 20 108/74 (85) 97 02/14/19 16:00 98.3 86 18 115/79 (91) 98 02/14/19 12:00 98.0 96 18 121/80 (94) 98 Intake and Output 02/14/19 02/15/19 18:59 06:59 Intake Total 710.0 ml 610.0 ml Output Total 1400 ml 900 ml Balance -690.0 ml -290.0 ml Intake IV Total 710.0 ml 610.0 ml Output Urine Total 1400 ml 900 ml # Voids 2 # Bowel Movements 1 1 Laboratory Tests 02/15/19 04:45: White Blood Count 10.7, Red Blood Count 4.53L, Hemoglobin 14.1L, Hematocrit 42.3 , Mean Corpuscular Volume 93, Mean Corpuscular Hemoglobin 31.2H, Mean Corpuscular Hemoglobin Concent 33.4, Red Cell Distribution Width 12.3, Platelet Count 157, Mean Platelet Volume 8.3, Neutrophils (%) (Auto) 53.1, Lymphocytes (% ) (Auto) 36.8, Monocytes (%) (Auto) 8.8, Eosinophils (%) (Auto) 1.1, Basophils ( %) (Auto) 0.2, Sodium Level 140, Potassium Level 4.0, Chloride Level 105, Carbon Dioxide Level 25, Anion Gap 10, Blood Urea Nitrogen 59H, Creatinine 2.3H , Estimat Glomerular Filtration Rate 34.3, Glucose Level 112H, Uric Acid 7.5H, Calcium Level 8.8, Phosphorus Level 2.7, Magnesium Level 1.9, Total Bilirubin 0.4, Direct Bilirubin < 0.1, Aspartate Amino Transf (AST/SGOT) 30, Alanine Aminotransferase (ALT/SGPT) 22, Alkaline Phosphatase 90, Total Protein 7.4, Albumin 2.5L Height (Feet): 5 Height (Inches): 6.00 Weight (Pounds): 109 General Appearance: lethargic EENT: normal ENT inspection Neck: supple Cardiovascular: normal rate Respiratory/Chest: decreased breath sounds Abdomen: normal bowel sounds, non tender, soft Extremities: non-tender Min Samuel MD Feb 15, 2019 09:26
--- NOTE | 2019-02-15 09:29 | Pre-Procedure Note/Attestation ---
Pre-Procedure Note/Attestation Complete Prior to Procedure Planned Procedure: not applicable Procedure Narrative: egd/peg Indications for Procedure Pre-Operative Diagnosis: dysphagia Attestation I attest that I discussed the nature of the procedure; its benefits; risks and complications; and alternatives (and the risks and benefits of such alternatives ), prior to the procedure, with the patient (or the patient's legal patient access representative). I attest that, if there was a reasonable possibility of needing a blood transfusion, the patient (or the patient's legal patient access representative) was given the [facility] standardized written summary, pursuant to the [place] Blood Safety Act ([place] Health and Safety Code # 1645, as amended). I attest that I re-evaluated the patient just prior to the surgery and that there has been no change in the patient's H&P, except as documented below: Min Samuel MD Feb 15, 2019 09:29
[2019-02-15] MEDS ORDERED: NS 500ML IVPB ONE (09:49)
[2019-02-15] MEDS ORDERED: Propofol 200mg/20ml IV ONE (10:00)
[2019-02-15] MEDS ORDERED: fentaNYL 100 mcg/2 mL IV ONE (10:00)
--- NOTE | 2019-02-15 10:17 | Immediate Post-Op Evaluation ---
Immediate Post-Op Evalulation Immediate Post-Op Evalulation Procedure: EGD PEG tube placement Date of Evaluation: Feb 15, 2019 Time of Evaluation: 10:16 IV Fluids: 300 Blood Products: none Estimated Blood Loss: min Urinary Output: `none Blood Pressure Systolic: 104 Blood Pressure Diastolic: 56 Pulse Rate: 82 Respiratory Rate: 20 O2 Sat by Pulse Oximetry: 98 Temperature (Fahrenheit): 97.8 Pain Score (1-10): 1 Nausea: No Vomiting: No Patient Status: reacts, patent, none Hydration Status: adequate Conrad Bonilla MD Feb 15, 2019 10:17
--- NOTE | 2019-02-15 11:01 | 48 Hour Post Anesthesia Eval ---
Post Anesthesia Evaluation Procedure: EGD PEG tube placement Date of Evaluation: Feb 15, 2019 Time of Evaluation: 11:00 Blood Pressure Systolic: 102 0: 52 Pulse Rate: 78 Respiratory Rate: 20 Temperature (Fahrenheit): 97.6 O2 Sat by Pulse Oximetry: 98 Airway: patent Nausea: No Vomiting: No Pain Intensity: 1 Hydration Status: adequate Cardiopulmonary Status: stable Mental Status/LOC: patient returned to baseline Follow-up Care/Observations: n/a Post-Anesthesia Complications: none Follow-up care needed: ready to discharge Conrad Bonilla MD Feb 15, 2019 11:01
--- NOTE | 2019-02-15 11:05 | NUR ---
NURSE NOTES: Pt returned from G tube placement. Dressing clean dry and intact. Pt in stable condition, no complaints at this time. IV patent and asymptomatic. will continue to monitor
--- NOTE | 2019-02-15 11:33 | Nephrology Progress Note ---
Assessment/Plan Problem List: (1) ARF (acute renal failure) Assessment: cr lowering (2) CKD (chronic kidney disease) (3) Failure to thrive syndrome, adult (4) Hypernatremia Assessment Acute encephalopathy Psych history & Paranoia h/o Prostate cancer CKD (chronic kidney disease), superimposed ARF / Dehydration h/o Hepatitis C h/o Dementia Plan D5w Hydrate monitor renal parameters keep BP and BS in check per orders Subjective ROS Limited/Unobtainable: No Constitutional: Reports: malaise, weakness Objective Objective Last 24 Hour Vital Signs Date Time Temp Pulse Resp B/P (MAP) Pulse Ox O2 Delivery O2 Flow Rate FiO2 02/15/19 11:01 78 20 98 02/15/19 10:45 98.8 85 6 104/77 100 Nasal Cannula 3 02/15/19 10:28 86 15 92/58 100 Nasal Cannula 3 02/15/19 10:23 85 15 96/62 100 Nasal Cannula 3 02/15/19 10:18 98.6 86 13 92/69 100 Nasal Cannula 3 02/15/19 10:17 82 20 98 02/15/19 08:00 98.4 89 19 112/75 (87) 96 02/15/19 04:00 99.3 107 18 128/88 (101) 98 02/15/19 02:02 97.4 02/15/19 00:00 97.4 98 20 119/71 (87) 97 02/14/19 21:00 Room Air 02/14/19 20:00 96.7 101 20 108/74 (85) 97 02/14/19 16:00 98.3 86 18 115/79 (91) 98 02/14/19 12:00 98.0 96 18 121/80 (94) 98 Intake and Output 02/14/19 02/15/19 18:59 06:59 Intake Total 710.0 ml 610.0 ml Output Total 1400 ml 900 ml Balance -690.0 ml -290.0 ml Intake IV Total 710.0 ml 610.0 ml Output Urine Total 1400 ml 900 ml # Voids 2 # Bowel Movements 1 1 Laboratory Tests 02/15/19 04:45: White Blood Count 10.7, Red Blood Count 4.53L, Hemoglobin 14.1L, Hematocrit 42.3 , Mean Corpuscular Volume 93, Mean Corpuscular Hemoglobin 31.2H, Mean Corpuscular Hemoglobin Concent 33.4, Red Cell Distribution Width 12.3, Platelet Count 157, Mean Platelet Volume 8.3, Neutrophils (%) (Auto) 53.1, Lymphocytes (% ) (Auto) 36.8, Monocytes (%) (Auto) 8.8, Eosinophils (%) (Auto) 1.1, Basophils ( %) (Auto) 0.2, Sodium Level 140, Potassium Level 4.0, Chloride Level 105, Carbon Dioxide Level 25, Anion Gap 10, Blood Urea Nitrogen 59H, Creatinine 2.3H , Estimat Glomerular Filtration Rate 34.3, Glucose Level 112H, Uric Acid 7.5H, Calcium Level 8.8, Phosphorus Level 2.7, Magnesium Level 1.9, Total Bilirubin 0.4, Direct Bilirubin < 0.1, Aspartate Amino Transf (AST/SGOT) 30, Alanine Aminotransferase (ALT/SGPT) 22, Alkaline Phosphatase 90, Total Protein 7.4, Albumin 2.5L Height (Feet): 5 Height (Inches): 6.00 Weight (Pounds): 109 General Appearance: no apparent distress Cardiovascular: normal rate Respiratory/Chest: decreased breath sounds Abdomen: soft Objective no change Tanner Grant MD Feb 15, 2019 11:33
--- NOTE | 2019-02-15 12:05 | Cardiac Electrophysiology PN ---
Assessment/Plan Assessment/Plan 1. Hypotension in a patient with history of hypertension. Resolved on IV antibiotic. Echo showed Nl EF. 2. History of dementia. Head CT is negative. 3. Renal failure and hypernatremia with sodium 154 with a BUN of 99, creatinine 3.4. It is likely due to dehydration. On IV fluids. 4. Dehydration. 5. Negative troponin. 6. Dysphagia, S/P PEG by Dr Lizzie OBANDO RN Subjective Subjective No new events.Nonverbal in restraints. Had PEG today. Objective Last 24 Hour Vital Signs Date Time Temp Pulse Resp B/P (MAP) Pulse Ox O2 Delivery O2 Flow Rate FiO2 02/15/19 11:01 78 20 98 02/15/19 10:45 98.8 85 6 104/77 100 Nasal Cannula 3 02/15/19 10:28 86 15 92/58 100 Nasal Cannula 3 02/15/19 10:23 85 15 96/62 100 Nasal Cannula 3 02/15/19 10:18 98.6 86 13 92/69 100 Nasal Cannula 3 02/15/19 10:17 82 20 98 02/15/19 08:00 98.4 89 19 112/75 (87) 96 02/15/19 04:00 99.3 107 18 128/88 (101) 98 02/15/19 02:02 97.4 02/15/19 00:00 97.4 98 20 119/71 (87) 97 02/14/19 21:00 Room Air 02/14/19 20:00 96.7 101 20 108/74 (85) 97 02/14/19 16:00 98.3 86 18 115/79 (91) 98 Intake and Output 02/14/19 02/15/19 19:00 07:00 Intake Total 610.0 ml 610.0 ml Output Total 1400 ml 900 ml Balance -790.0 ml -290.0 ml Intake IV Total 610.0 ml 610.0 ml Output Urine Total 1400 ml 900 ml # Voids 2 # Bowel Movements 1 1 Laboratory Tests Test 02/15/19 04:45 White Blood Count 10.7 K/UL (4.8-10.8) Red Blood Count 4.53 M/UL (4.70-6.10) L Hemoglobin 14.1 G/DL (14.2-18.0) L Hematocrit 42.3 % (42.0-52.0) Mean Corpuscular Volume 93 FL (80-99) Mean Corpuscular Hemoglobin 31.2 PG (27.0-31.0) H Mean Corpuscular Hemoglobin Concent 33.4 G/DL (32.0-36.0) Red Cell Distribution Width 12.3 % (11.6-14.8) Platelet Count 157 K/UL (150-450) Mean Platelet Volume 8.3 FL (6.5-10.1) Neutrophils (%) (Auto) 53.1 % (45.0-75.0) Lymphocytes (%) (Auto) 36.8 % (20.0-45.0) Monocytes (%) (Auto) 8.8 % (1.0-10.0) Eosinophils (%) (Auto) 1.1 % (0.0-3.0) Basophils (%) (Auto) 0.2 % (0.0-2.0) Sodium Level 140 MMOL/L (136-145) Potassium Level 4.0 MMOL/L (3.5-5.1) Chloride Level 105 MMOL/L (98-107) Carbon Dioxide Level 25 MMOL/L (21-32) Anion Gap 10 mmol/L (5-15) Blood Urea Nitrogen 59 mg/dL (7-18) H Creatinine 2.3 MG/DL (0.55-1.30) H Estimat Glomerular Filtration Rate 34.3 mL/min (>60) Glucose Level 112 MG/DL (74-106) H Uric Acid 7.5 MG/DL (2.6-7.2) H Calcium Level 8.8 MG/DL (8.5-10.1) Phosphorus Level 2.7 MG/DL (2.5-4.9) Magnesium Level 1.9 MG/DL (1.8-2.4) Total Bilirubin 0.4 MG/DL (0.2-1.0) Direct Bilirubin < 0.1 MG/DL (0.0-0.3) Aspartate Amino Transf (AST/SGOT) 30 U/L (15-37) Alanine Aminotransferase (ALT/SGPT) 22 U/L (12-78) Alkaline Phosphatase 90 U/L (46-116) Total Protein 7.4 G/DL (6.4-8.2) Albumin 2.5 G/DL (3.4-5.0) L Microbiology Date/Time Source Procedure Growth Status 02/12/19 13:50 Urine,Clean Catch Urine Culture - Final Proteus Mirabilis Escherichia Coli - Esbl Complete Objective HEAD AND NECK: No JVD. LUNGS: Coarse rhonchi. CARDIOVASCULAR: Shows regular S1 and S2 with no gallop or murmur. ABDOMEN: Soft.PEG in place EXTREMITIES: No pitting edema. Byrce Ba MD Feb 15, 2019 12:05
--- NOTE | 2019-02-15 12:09 | NUR ---
NURSE NOTES: Patient confused; on oxygen at 2 Ml, no sign of distress and shortness of breath; no sing of chest pain; G-tube in place; soft restratine on both wrists; side rials up x2, breaks engaged; will keep monitoring.
--- NOTE | 2019-02-15 12:13 | Pulmonology Progress Note ---
Assessment/Plan Problems: (1) Acute encephalopathy (2) Sepsis (3) ATN (acute tubular necrosis) (4) Pyelonephritis (5) Prostate cancer (6) Cerebral vascular disease (7) Methadone maintenance therapy patient (8) HTN (hypertension) (9) Hepatitis C Assessment/Plan PEG in place bun/creatinine improving neuro consult appreciated more awake now iv fluids iv abx check cultures neuro f/u hold mind altering meds Subjective ROS Limited/Unobtainable: No Constitutional: Reports: no symptoms HEENT: Repors: no symptoms Allergies: Uncoded Allergies: anesthetics unspecified (Allergy, Mild, 02/12/19) sulfonamides (Allergy, Mild, rash, 02/12/19) Objective Last 24 Hour Vital Signs Date Time Temp Pulse Resp B/P (MAP) Pulse Ox O2 Delivery O2 Flow Rate FiO2 02/15/19 11:01 78 20 98 02/15/19 10:45 98.8 85 6 104/77 100 Nasal Cannula 3 02/15/19 10:28 86 15 92/58 100 Nasal Cannula 3 02/15/19 10:23 85 15 96/62 100 Nasal Cannula 3 02/15/19 10:18 98.6 86 13 92/69 100 Nasal Cannula 3 02/15/19 10:17 82 20 98 02/15/19 08:00 98.4 89 19 112/75 (87) 96 02/15/19 04:00 99.3 107 18 128/88 (101) 98 02/15/19 02:02 97.4 02/15/19 00:00 97.4 98 20 119/71 (87) 97 02/14/19 21:00 Room Air 02/14/19 20:00 96.7 101 20 108/74 (85) 97 02/14/19 16:00 98.3 86 18 115/79 (91) 98 Intake and Output 02/14/19 02/15/19 19:00 07:00 Intake Total 610.0 ml 610.0 ml Output Total 1400 ml 900 ml Balance -790.0 ml -290.0 ml Intake IV Total 610.0 ml 610.0 ml Output Urine Total 1400 ml 900 ml # Voids 2 # Bowel Movements 1 1 Objective General Appearance: cachectic Lines, tubes and drains: peripheral HEENT: normocephalic, atraumatic Neck: non-tender, normal alignment Respiratory/Chest: chest wall non-tender, lungs clear Cardiovascular/Chest: normal peripheral pulses, normal rate Abdomen: normal bowel sounds Extremities: normal range of motion Microbiology Date/Time Source Procedure Growth Status 02/12/19 13:50 Urine,Clean Catch Urine Culture - Final Proteus Mirabilis Escherichia Coli - Esbl Complete Laboratory Tests 02/15/19 04:45: White Blood Count 10.7, Red Blood Count 4.53L, Hemoglobin 14.1L, Hematocrit 42.3 , Mean Corpuscular Volume 93, Mean Corpuscular Hemoglobin 31.2H, Mean Corpuscular Hemoglobin Concent 33.4, Red Cell Distribution Width 12.3, Platelet Count 157, Mean Platelet Volume 8.3, Neutrophils (%) (Auto) 53.1, Lymphocytes (% ) (Auto) 36.8, Monocytes (%) (Auto) 8.8, Eosinophils (%) (Auto) 1.1, Basophils ( %) (Auto) 0.2, Sodium Level 140, Potassium Level 4.0, Chloride Level 105, Carbon Dioxide Level 25, Anion Gap 10, Blood Urea Nitrogen 59H, Creatinine 2.3H , Estimat Glomerular Filtration Rate 34.3, Glucose Level 112H, Uric Acid 7.5H, Calcium Level 8.8, Phosphorus Level 2.7, Magnesium Level 1.9, Total Bilirubin 0.4, Direct Bilirubin < 0.1, Aspartate Amino Transf (AST/SGOT) 30, Alanine Aminotransferase (ALT/SGPT) 22, Alkaline Phosphatase 90, Total Protein 7.4, Albumin 2.5L Current Medications Medications (Trade) Dose Ordered Sig/Lucie Route PRN Reason Start Time Stop Time Status Last Admin Dose Admin Acetaminophen (Tylenol) 650 mg Q4H PRN ORAL Mild Pain/Temp > 100.5 02/12/19 08:15 03/14/19 08:14 02/14/19 00:45 Clonidine HCl (Catapres Tab) 0.1 mg Q4H PRN ORAL For High Blood Pressure 02/12/19 08:15 03/14/19 08:14 Dextrose 1,000 ml @ 100 mls/hr Q10H IV 02/12/19 16:00 03/14/19 15:59 02/14/19 17:06 Dextrose (Dextrose 50%) 25 ml Q30M PRN IV Hypoglycemia 02/12/19 08:15 03/14/19 08:14 Dextrose (Dextrose 50%) 50 ml Q30M PRN IV Hypoglycemia 02/12/19 08:15 03/14/19 08:14 Divalproex Sodium (Depakote) 500 mg EVERY 12 HOURS ORAL 02/12/19 09:00 03/14/19 08:59 02/15/19 09:00 Docusate Sodium (Colace) 100 mg TWICE A DAY ORAL 02/12/19 09:00 03/14/19 08:59 02/15/19 09:00 Haloperidol (Haldol) 5 mg Q6H PRN ORAL Agitation 02/12/19 08:30 03/14/19 08:29 02/12/19 16:20 Heparin Sodium (Porcine) (Heparin 5000 units/ml) 5,000 units EVERY 12 HOURS SUBQ 02/12/19 09:00 03/14/19 08:59 02/13/19 20:39 Lorazepam (Ativan 2mg/ml 1ml) 0.5 mg Q4H PRN IV For Anxiety 02/12/19 08:15 02/19/19 08:14 Morphine Sulfate (Morphine Sulfate) 1 mg Q4H PRN IVP For Pain 02/12/19 08:15 02/19/19 08:14 02/15/19 01:32 Olanzapine (ZyPREXA) 2.5 mg TID PRN ORAL agitation 02/13/19 11:00 03/14/19 13:59 Ondansetron HCl (Zofran) 4 mg Q6H PRN IVP Nausea & Vomiting 02/12/19 08:15 03/14/19 08:14 Piperacillin Sod/ Tazobactam Sod 3.375 gm/Sodium Chloride 110 ml @ 27.5 mls/hr EVERY 8 HOURS IVPB 02/14/19 14:00 02/19/19 13:59 02/15/19 05:42 Polyethylene Glycol (Miralax) 17 gm HSPRN PRN ORAL Constipation 02/12/19 08:15 03/14/19 08:14 Tamsulosin HCl (Flomax) 0.4 mg BID ORAL 02/12/19 18:00 03/14/19 17:59 02/15/19 09:00 Zolpidem Tartrate (Ambien) 5 mg HSPRN PRN ORAL Insomnia 02/12/19 08:15 02/19/19 08:14 German Mooney MD Feb 15, 2019 12:13
--- NOTE | 2019-02-15 13:59 | NUR ---
*-* INSURANCE *-* ALL AVAILABLE CLINICALS HAVE BEEN FAXED TO: [employer] P- [phone] [phone]...REVIEW/CLINICAL
--- NOTE | 2019-02-15 15:22 | NUR ---
FIRST BREAKER FEEDERDATA ENTRY SUPERVISOR SI:ACUTE ENCEPHALOPATHY . PYELONEPHRITIS VS: BP IS;MORPHINE SULFATE 1mg IVP DEPAKOTE 500mg HEPARIN SUBQ DEXTROSE x1L IV FLOMAX 0.4mg ZOSYN 110ml IVPB NS 220ml IVPB MED/SURG STATUS
--- NOTE | 2019-02-15 15:49 | NUR ---
NURSE NOTES: Feeding tube Vital 1.2 started at the rate of 20cc at 1340, will advance it as tolerated at 60cc. Will keep monitoring.
--- NOTE | 2019-02-15 16:08 | NUR ---
DISCHARGE PLANNING Discharge order noted Patient has been referred to [facility] Await Acceptance and Room Number
--- NOTE | 2019-02-15 16:15 | Procedure Note ---
DATE OF PROCEDURE: 02/15/2019 SURGEON: Min Samuel M.D. PROCEDURE: Upper endoscopy with PEG placement. ANESTHESIA: Per Dr. Bonilla INSTRUMENT: Olympus adult flexible upper endoscope. INDICATION: Dysphagia and failure to thrive. REASON FOR PROCEDURE: The procedure, risks, benefits, and possible consequences, including hemorrhage, aspiration, perforation and infection, and alternative treatments, were explained to the patient/legal guardian by Dr. Min Samuel and the patient/legal guardian understood and accepted these risks. DESCRIPTION OF PROCEDURE: After informed consent was obtained and the patient was adequately sedated, the Olympus upper endoscope was advanced from the mouth into the second portion of duodenum and retroflexion was performed in the stomach. The patient had evidence of hiatal hernia and minimum gastritis. Then under endoscopic guidance, under sterile condition, a 20-Azeri pull type of G-tube was successfully placed in the epigastric area. The distance from the tip of the tube to skin was about 2.5 cm in size. The patient tolerated the procedure very well without any complication. SUMMARY OF FINDINGS: 1. Hiatal hernia. 2. Status post successful PEG placement. RECOMMENDATIONS: 1. Abdominal binder. 2. Elevate the head of the bed at all times. 3. G-tube flush. 4. G-tube care. 5. Start tube feeding later today. The patient currently on antibiotics. We will continue. I want to thank Dr. Robin Wright for this kind referral. Min Samuel M.D. DR: REBECCA JOB#: [id number] CC: Robin Wright M.D.; Fax#: [phone]
--- NOTE | 2019-02-15 18:03 | NUR ---
NURSE NOTES: Feeding tube Vital 1.2 running at 30cc staring from 1740. Will keep monitoring.
--- NOTE | 2019-02-15 19:17 | Psych Consult Progress Note ---
Psychiatry Progress Note Psychiatry Progress Note Subjective the pt is confused and cont to have episodes of confusion Medications Current Medications Medications (Trade) Dose Ordered Sig/Lucie Route PRN Reason Start Time Stop Time Status Last Admin Dose Admin Acetaminophen (Tylenol) 650 mg Q4H PRN ORAL Mild Pain/Temp > 100.5 02/12/19 08:15 03/14/19 08:14 02/14/19 00:45 Clonidine HCl (Catapres Tab) 0.1 mg Q4H PRN ORAL For High Blood Pressure 02/12/19 08:15 03/14/19 08:14 Dextrose 1,000 ml @ 100 mls/hr Q10H IV 02/12/19 16:00 03/14/19 15:59 02/15/19 13:12 Dextrose (Dextrose 50%) 25 ml Q30M PRN IV Hypoglycemia 02/12/19 08:15 03/14/19 08:14 Dextrose (Dextrose 50%) 50 ml Q30M PRN IV Hypoglycemia 02/12/19 08:15 03/14/19 08:14 Divalproex Sodium (Depakote) 500 mg EVERY 12 HOURS ORAL 02/12/19 09:00 03/14/19 08:59 02/15/19 09:00 Docusate Sodium (Colace) 100 mg TWICE A DAY ORAL 02/12/19 09:00 03/14/19 08:59 02/15/19 17:05 Haloperidol (Haldol) 5 mg Q6H PRN ORAL Agitation 02/12/19 08:30 03/14/19 08:29 02/12/19 16:20 Heparin Sodium (Porcine) (Heparin 5000 units/ml) 5,000 units EVERY 12 HOURS SUBQ 02/12/19 09:00 03/14/19 08:59 02/13/19 20:39 Lorazepam (Ativan 2mg/ml 1ml) 0.5 mg Q4H PRN IV For Anxiety 02/12/19 08:15 02/19/19 08:14 Morphine Sulfate (Morphine Sulfate) 1 mg Q4H PRN IVP For Pain 02/12/19 08:15 02/19/19 08:14 02/15/19 01:32 Olanzapine (ZyPREXA) 2.5 mg TID PRN ORAL agitation 02/13/19 11:00 03/14/19 13:59 Ondansetron HCl (Zofran) 4 mg Q6H PRN IVP Nausea & Vomiting 02/12/19 08:15 03/14/19 08:14 Piperacillin Sod/ Tazobactam Sod 3.375 gm/Sodium Chloride 110 ml @ 27.5 mls/hr EVERY 8 HOURS IVPB 02/14/19 14:00 02/19/19 13:59 02/15/19 13:13 Polyethylene Glycol (Miralax) 17 gm HSPRN PRN ORAL Constipation 02/12/19 08:15 03/14/19 08:14 Tamsulosin HCl (Flomax) 0.4 mg BID ORAL 02/12/19 18:00 03/14/19 17:59 02/15/19 17:05 Zolpidem Tartrate (Ambien) 5 mg HSPRN PRN ORAL Insomnia 02/12/19 08:15 02/19/19 08:14 Neurological/Psychiatric: Reports: anxiety, emotional problems, weakness Allergies: Uncoded Allergies: anesthetics unspecified (Allergy, Mild, 02/12/19) sulfonamides (Allergy, Mild, rash, 02/12/19) Objective Data Height (Feet): 5 Height (Inches): 6.00 Weight (Pounds): 109 Appearance: disheveled Behavior Mannerisms: poor eye contact Mental Status Exam - Affect: blunted Mental Status Exam - Mood: anxious, agitated Speech: dysarthric Mental Status Exam - Thought P: tangential, confusion Mental Status Exam - Suicidal: not present Assessment/Plan Problem List: (1) Dementia with behavioral disturbance ICD Codes: F03.91 - Unspecified dementia with behavioral disturbance SNOMED: [id number] Status: stable, progressing Assessment/Plan: zyprexa standing zyprexa prn haldol prn Mckenna Davis MD Feb 15, 2019 19:17
--- NOTE | 2019-02-15 19:31 | NUR ---
HAND-OFF: Report given to KERMIT Marcelo.
--- NOTE | 2019-02-15 19:52 | NUR ---
NURSE NOTES: Received patient in bed, awake, confused, disoriented, VSS, afebrile, patient has bilateral soft wrist restraints, call light is within reach, bed is in low position, locked, and alarm is on. Will continue to monitor for safety and comfort.
--- NOTE | 2019-02-15 21:30 | Neurology Progress Note ---
Interim History Interim History ROS Limited/Unobtainable: Yes Complaints: AMS Events: Post PEG Tube insertion Review of Systems All Systems: reviewed and negative except above Objective Physical Exam Last Vital Signs Date Time Temp Pulse Resp B/P (MAP) Pulse Ox O2 Delivery O2 Flow Rate FiO2 02/15/19 21:00 Room Air 02/15/19 20:00 98.0 95 19 99/56 (70) 02/15/19 16:00 95 02/15/19 10:45 3 Laboratory Tests Test 02/15/19 04:45 White Blood Count 10.7 K/UL (4.8-10.8) Red Blood Count 4.53 M/UL (4.70-6.10) L Hemoglobin 14.1 G/DL (14.2-18.0) L Hematocrit 42.3 % (42.0-52.0) Mean Corpuscular Volume 93 FL (80-99) Mean Corpuscular Hemoglobin 31.2 PG (27.0-31.0) H Mean Corpuscular Hemoglobin Concent 33.4 G/DL (32.0-36.0) Red Cell Distribution Width 12.3 % (11.6-14.8) Platelet Count 157 K/UL (150-450) Mean Platelet Volume 8.3 FL (6.5-10.1) Neutrophils (%) (Auto) 53.1 % (45.0-75.0) Lymphocytes (%) (Auto) 36.8 % (20.0-45.0) Monocytes (%) (Auto) 8.8 % (1.0-10.0) Eosinophils (%) (Auto) 1.1 % (0.0-3.0) Basophils (%) (Auto) 0.2 % (0.0-2.0) Sodium Level 140 MMOL/L (136-145) Potassium Level 4.0 MMOL/L (3.5-5.1) Chloride Level 105 MMOL/L (98-107) Carbon Dioxide Level 25 MMOL/L (21-32) Anion Gap 10 mmol/L (5-15) Blood Urea Nitrogen 59 mg/dL (7-18) H Creatinine 2.3 MG/DL (0.55-1.30) H Estimat Glomerular Filtration Rate 34.3 mL/min (>60) Glucose Level 112 MG/DL (74-106) H Uric Acid 7.5 MG/DL (2.6-7.2) H Calcium Level 8.8 MG/DL (8.5-10.1) Phosphorus Level 2.7 MG/DL (2.5-4.9) Magnesium Level 1.9 MG/DL (1.8-2.4) Total Bilirubin 0.4 MG/DL (0.2-1.0) Direct Bilirubin < 0.1 MG/DL (0.0-0.3) Aspartate Amino Transf (AST/SGOT) 30 U/L (15-37) Alanine Aminotransferase (ALT/SGPT) 22 U/L (12-78) Alkaline Phosphatase 90 U/L (46-116) Total Protein 7.4 G/DL (6.4-8.2) Albumin 2.5 G/DL (3.4-5.0) L Head: normocophalic, other Neck: no rigidity EENT: benign Neurologic Exam Mental Status: awake Speech: other Language: other Cranial Nerves III, IV, : PERRLA, EOMI Cranial Nerve VII: no facial asymmetry Cranial Nerve XI: SCM symmetric Cranial Nerve XII: tongue midline Motor System: strength 5/5 Sensory: normal pinprick, normal light touch Impression/Recommendations Problems: (1) Dementia with behavioral disturbance Assessment & Plan: Exam more lethargic -possible secondary to procedure today. Will follow. (2) UTI (urinary tract infection) Assessment & Plan: Abx as per ID (3) Acute encephalopathy (4) Failure to thrive syndrome, adult Assessment & Plan: S/P PEG insertion today For TUBE feeding as per GI team. Status: stable, progressing Recommendations Maintain normothermia Abx as per ID Na 135-145 Maintain sleep hygiene for patient Consider EEG Avoid use of benzodiazapenes, anticholinergics, and opioid narcotics. May utilize Seroquel 25mg QD/ QHS for behavioral agitation. Lydia Obrien N.P. Feb 15, 2019 21:30
[2019-02-16 00:45] VITALS: BP 104/66
--- NOTE | 2019-02-16 02:45 | Procedure Note ---
DATE OF PROCEDURE: 02/15/2019 NOTE: "POOR AUDIO QUALITY/INCOMPREHENSIBLE" REFERRING PHYSICIAN: Robin Wright M.D. SURGEON: Min Samuel M.D. PROCEDURE: ANESTHESIA: Per INSTRUMENT: INDICATION: The procedure, risks, benefits, and possible consequences, including hemorrhage, aspiration, perforation and infection, and alternative treatments, were explained to the patient/legal guardian by Dr. Min Samuel and the patient/legal guardian understood and accepted these risks. DESCRIPTION OF PROCEDURE: minimum gastritis. Under endoscopic guidance under sterile condition, a 20-Bhutanese pull type of G-tube was successfully placed in the epigastric area. The distance from the tip of the tube to the skin was 2.5 cm in size. The patient tolerated the procedure very well without any complications. SUMMARY OF FINDINGS: status post successful PEG placement. RECOMMENDATIONS: Abdominal binder. Elevate the head of bed at all times. G-tube flush. G-tube care. Start tube feeding later today. The patient currently on antibiotics, which we will continue. I want to thank Dr. Wright for this kind referral. Min Samuel M.D. DR: ALBERTO JOB#: [id number] CC: Robin Wright M.D.; Fax#: [phone]
[2019-02-16 04:21] VITALS: BP 104/78
[2019-02-16] MEDS: Piperacillin/Tazobactam 3.375 GM in NS 110 ML IVPB SCH ×3 (06:06→21:28)
--- NOTE | 2019-02-16 06:56 | NUR ---
HAND-OFF: Report given to Krystal CARMEN.
[2019-02-16 07:10] LABS: ANION GAP 8 mmol/L (5-15); BLOOD UREA NITROGEN 45 mg/dL (7-18); CALCIUM 8.9 MG/DL (8.5-10.1); CARBON DIOXIDE 25 MMOL/L (21-32); CHLORIDE 106 MMOL/L (98-107); POTASSIUM 3.5 MMOL/L (3.5-5.1); SODIUM 139 MMOL/L (136-145)
[2019-02-16 07:13] LABS: BASOPHILS % (AUTO) 0.6 % (0.0-2.0); EOSINOPHILS % (AUTO) 0.6 % (0.0-3.0); HEMOGLOBIN 14.4 G/DL (14.2-18.0); LYMPHOCYTES % (AUTO) 20.8 % (20.0-45.0); MEAN CORPUSCULAR VOLUME 94 FL (80-99); MONOCYTES % (AUTO) 9.5 % (1.0-10.0); NEUTROPHILS % (AUTO) 68.6 % (45.0-75.0); PLATELET COUNT 124 K/UL (150-450); RED BLOOD COUNT 4.57 M/UL (4.70-6.10); RED CELL DISTRIBUTION WIDTH 12.3 % (11.6-14.8); WHITE BLOOD COUNT 9.4 K/UL (4.8-10.8)
--- NOTE | 2019-02-16 07:29 | NUR ---
NURSE NOTES: Patient received sleeping in bed with bilateral wrist restraints. Circulation undisrupted. by the bedside. No signs of respiratory distress or pain observed. Nasal cannula on at 2L/min. G-tube feeding running at 60cc/hr. IV site patent and intact with fluids running at 100cc/hour. Bed locked in lowest position, HOB elevated, call light placed within reach. Will continue to monitor.
[2019-02-16 08:00] VITALS: BP 125/76
[2019-02-16] MEDS: Heparin 5000 units/ml inj SUBQ SCH ×2 (09:00→21:30)
[2019-02-16] MEDS: Tamsulosin 0.4mg cap ORAL SCH ×2 (09:11→17:32)
[2019-02-16] MEDS: Depakote 500mg tab ORAL SCH ×2 (09:11→21:28)
[2019-02-16] MEDS: Docusate 100mg cap ORAL SCH ×2 (09:11→17:32)
[2019-02-16 12:00] VITALS: BP 91/59
--- NOTE | 2019-02-16 13:00 | Pulmonology Progress Note ---
Assessment/Plan Problems: (1) Acute encephalopathy (2) Sepsis (3) ATN (acute tubular necrosis) (4) Pyelonephritis (5) Prostate cancer (6) Cerebral vascular disease (7) Methadone maintenance therapy patient (8) HTN (hypertension) (9) Hepatitis C Assessment/Plan PEG in place bun/creatinine improving neuro consult appreciated more awake now iv fluids iv abx check cultures neuro f/u hold mind altering meds Subjective ROS Limited/Unobtainable: No Constitutional: Reports: no symptoms HEENT: Repors: no symptoms Allergies: Uncoded Allergies: anesthetics unspecified (Allergy, Mild, 02/12/19) sulfonamides (Allergy, Mild, rash, 02/12/19) Objective Last 24 Hour Vital Signs Date Time Temp Pulse Resp B/P (MAP) Pulse Ox O2 Delivery O2 Flow Rate FiO2 02/16/19 12:00 97.9 78 14 91/59 (70) 98 02/16/19 09:00 Room Air 02/16/19 08:00 98.1 109 20 125/76 (92) 100 02/16/19 04:21 98.5 110 19 104/78 (87) 02/16/19 00:45 97.9 108 18 104/66 (79) 02/15/19 21:00 Room Air 02/15/19 20:00 98.0 95 19 99/56 (70) 02/15/19 16:00 97.6 84 18 121/79 (93) 95 Intake and Output 02/15/19 02/16/19 18:59 06:59 Intake Total 1505.0 ml 1390 ml Output Total 1600 ml Balance 1505.0 ml -210 ml Intake Free Water 300 ml 150 ml IV Total 1065.0 ml 900 ml Tube Feeding 140 ml 340 ml Output Urine Total 1600 ml # Bowel Movements 2 Objective General Appearance: cachectic Lines, tubes and drains: peripheral HEENT: normocephalic, atraumatic Neck: non-tender, normal alignment Respiratory/Chest: chest wall non-tender, lungs clear Cardiovascular/Chest: normal peripheral pulses, normal rate Abdomen: normal bowel sounds Extremities: normal range of motion Laboratory Tests 02/16/19 06:50: White Blood Count 9.4, Red Blood Count 4.57L, Hemoglobin 14.4, Hematocrit 43.0, Mean Corpuscular Volume 94, Mean Corpuscular Hemoglobin 31.5H, Mean Corpuscular Hemoglobin Concent 33.4, Red Cell Distribution Width 12.3, Platelet Count 124L, Mean Platelet Volume 8.1, Neutrophils (%) (Auto) 68.6, Lymphocytes (%) (Auto) 20.8, Monocytes (%) (Auto) 9.5, Eosinophils (%) (Auto) 0.6, Basophils (%) (Auto ) 0.6, Sodium Level 139, Potassium Level 3.5, Chloride Level 106, Carbon Dioxide Level 25, Anion Gap 8, Blood Urea Nitrogen 45H, Creatinine 2.0H, Estimat Glomerular Filtration Rate 40.4, Glucose Level 148H, Calcium Level 8.9 Current Medications Medications (Trade) Dose Ordered Sig/Lucie Route PRN Reason Start Time Stop Time Status Last Admin Dose Admin Acetaminophen (Tylenol) 650 mg Q4H PRN ORAL Mild Pain/Temp > 100.5 02/12/19 08:15 03/14/19 08:14 02/14/19 00:45 Clonidine HCl (Catapres Tab) 0.1 mg Q4H PRN ORAL For High Blood Pressure 02/12/19 08:15 03/14/19 08:14 Dextrose 1,000 ml @ 100 mls/hr Q10H IV 02/12/19 16:00 03/14/19 15:59 02/16/19 05:45 Dextrose (Dextrose 50%) 25 ml Q30M PRN IV Hypoglycemia 02/12/19 08:15 03/14/19 08:14 Dextrose (Dextrose 50%) 50 ml Q30M PRN IV Hypoglycemia 02/12/19 08:15 03/14/19 08:14 Divalproex Sodium (Depakote) 500 mg EVERY 12 HOURS ORAL 02/12/19 09:00 03/14/19 08:59 02/16/19 09:11 Docusate Sodium (Colace) 100 mg TWICE A DAY ORAL 02/12/19 09:00 03/14/19 08:59 02/16/19 09:11 Haloperidol (Haldol) 5 mg Q6H PRN ORAL Agitation 02/12/19 08:30 03/14/19 08:29 02/12/19 16:20 Heparin Sodium (Porcine) (Heparin 5000 units/ml) 5,000 units EVERY 12 HOURS SUBQ 02/12/19 09:00 03/14/19 08:59 02/15/19 20:12 Lorazepam (Ativan 2mg/ml 1ml) 0.5 mg Q4H PRN IV For Anxiety 02/12/19 08:15 02/19/19 08:14 Morphine Sulfate (Morphine Sulfate) 1 mg Q4H PRN IVP For Pain 02/12/19 08:15 02/19/19 08:14 02/15/19 01:32 Olanzapine (ZyPREXA) 2.5 mg TID PRN ORAL agitation 02/13/19 11:00 03/14/19 13:59 Ondansetron HCl (Zofran) 4 mg Q6H PRN IVP Nausea & Vomiting 02/12/19 08:15 03/14/19 08:14 Piperacillin Sod/ Tazobactam Sod 3.375 gm/Sodium Chloride 110 ml @ 27.5 mls/hr EVERY 8 HOURS IVPB 02/14/19 14:00 02/19/19 13:59 02/16/19 06:06 Polyethylene Glycol (Miralax) 17 gm HSPRN PRN ORAL Constipation 02/12/19 08:15 03/14/19 08:14 Tamsulosin HCl (Flomax) 0.4 mg BID ORAL 02/12/19 18:00 03/14/19 17:59 02/16/19 09:11 Zolpidem Tartrate (Ambien) 5 mg HSPRN PRN ORAL Insomnia 02/12/19 08:15 02/19/19 08:14 German Mooney MD Feb 16, 2019 13:00
--- NOTE | 2019-02-16 14:03 | Neurology Progress Note ---
Interim History Interim History ROS Limited/Unobtainable: Yes Complaints: AMS Events: None as per staff Review of Systems All Systems: reviewed and negative except above Objective Physical Exam Last Vital Signs Date Time Temp Pulse Resp B/P (MAP) Pulse Ox O2 Delivery O2 Flow Rate FiO2 02/16/19 12:00 97.9 78 14 91/59 (70) 98 02/16/19 09:00 Room Air 02/15/19 10:45 3 Laboratory Tests Test 02/16/19 06:50 White Blood Count 9.4 K/UL (4.8-10.8) Red Blood Count 4.57 M/UL (4.70-6.10) L Hemoglobin 14.4 G/DL (14.2-18.0) Hematocrit 43.0 % (42.0-52.0) Mean Corpuscular Volume 94 FL (80-99) Mean Corpuscular Hemoglobin 31.5 PG (27.0-31.0) H Mean Corpuscular Hemoglobin Concent 33.4 G/DL (32.0-36.0) Red Cell Distribution Width 12.3 % (11.6-14.8) Platelet Count 124 K/UL (150-450) L Mean Platelet Volume 8.1 FL (6.5-10.1) Neutrophils (%) (Auto) 68.6 % (45.0-75.0) Lymphocytes (%) (Auto) 20.8 % (20.0-45.0) Monocytes (%) (Auto) 9.5 % (1.0-10.0) Eosinophils (%) (Auto) 0.6 % (0.0-3.0) Basophils (%) (Auto) 0.6 % (0.0-2.0) Sodium Level 139 MMOL/L (136-145) Potassium Level 3.5 MMOL/L (3.5-5.1) Chloride Level 106 MMOL/L (98-107) Carbon Dioxide Level 25 MMOL/L (21-32) Anion Gap 8 mmol/L (5-15) Blood Urea Nitrogen 45 mg/dL (7-18) H Creatinine 2.0 MG/DL (0.55-1.30) H Estimat Glomerular Filtration Rate 40.4 mL/min (>60) Glucose Level 148 MG/DL (74-106) H Calcium Level 8.9 MG/DL (8.5-10.1) General: other Head: normocophalic EENT: benign Neurologic Exam Objective Exam remains non focal and abnormal - patient continues to be able to move all extremities with equal strength to command or localizing in response to noxious stimuli. However, not verbalizing normally, not tracking with eyes, PUPILS UNEQUAL today - previously normal - likely metabolic cause. Impression/Recommendations Problems: (1) Dementia with behavioral disturbance Assessment & Plan: Baseline behavior and functional abilities were unclear but patient does not answer questions, follow commands or response normally at this time. CT Brain demonstrating atrophy and chronic microvascular changes. (2) UTI (urinary tract infection) (3) Acute encephalopathy Assessment & Plan: Non focal exam, no meaningful verbal interaction, not following commands. (4) Failure to thrive syndrome, adult Status: stable, not improved, unchanged, deteriorating Recommendations MRI Brain ordered EEG ordered Recheck Valproate level Optimize nutrition- consider NG and enteral feeding - given poor status at admission and lack of neurological improvement. Lydia Obrien N.P. Feb 16, 2019 14:03
--- NOTE | 2019-02-16 14:05 | General Progress Note ---
Assessment/Plan Problem List: (1) UTI (urinary tract infection) ICD Codes: N39.0 - Urinary tract infection, site not specified SNOMED: 11450346 (2) CKD (chronic kidney disease) ICD Codes: N18.9 - CKD (chronic kidney disease) SNOMED: 208391325 (3) ARF (acute renal failure) ICD Codes: N17.9 - ARF (acute renal failure) SNOMED: 21472989 (4) Failure to thrive syndrome, adult ICD Codes: R62.7 - Failure to thrive syndrome, adult SNOMED: 832123742 (5) Hepatitis C ICD Codes: B19.20 - Unspecified viral hepatitis C without hepatic coma SNOMED: 90619901 (6) HTN (hypertension) ICD Codes: I10 - Essential (primary) hypertension SNOMED: 50901918 Status: stable, progressing Assessment/Plan: pt diet abx gi eval cbc bmp am dc plan snf Subjective Constitutional: Reports: weakness Allergies: Uncoded Allergies: anesthetics unspecified (Allergy, Mild, 02/12/19) sulfonamides (Allergy, Mild, rash, 02/12/19) All Systems: reviewed and negative except above Subjective sleepy calm Objective Last 24 Hour Vital Signs Date Time Temp Pulse Resp B/P (MAP) Pulse Ox O2 Delivery O2 Flow Rate FiO2 02/16/19 12:00 97.9 78 14 91/59 (70) 98 02/16/19 09:00 Room Air 02/16/19 08:00 98.1 109 20 125/76 (92) 100 02/16/19 04:21 98.5 110 19 104/78 (87) 02/16/19 00:45 97.9 108 18 104/66 (79) 02/15/19 21:00 Room Air 02/15/19 20:00 98.0 95 19 99/56 (70) 02/15/19 16:00 97.6 84 18 121/79 (93) 95 Intake and Output 02/15/19 02/16/19 19:00 07:00 Intake Total 1505.0 ml 1450 ml Output Total 1600 ml Balance 1505.0 ml -150 ml Intake Free Water 300 ml 150 ml IV Total 1065.0 ml 900 ml Tube Feeding 140 ml 400 ml Output Urine Total 1600 ml # Bowel Movements 2 Laboratory Tests 02/16/19 06:50: White Blood Count 9.4, Red Blood Count 4.57L, Hemoglobin 14.4, Hematocrit 43.0, Mean Corpuscular Volume 94, Mean Corpuscular Hemoglobin 31.5H, Mean Corpuscular Hemoglobin Concent 33.4, Red Cell Distribution Width 12.3, Platelet Count 124L, Mean Platelet Volume 8.1, Neutrophils (%) (Auto) 68.6, Lymphocytes (%) (Auto) 20.8, Monocytes (%) (Auto) 9.5, Eosinophils (%) (Auto) 0.6, Basophils (%) (Auto ) 0.6, Sodium Level 139, Potassium Level 3.5, Chloride Level 106, Carbon Dioxide Level 25, Anion Gap 8, Blood Urea Nitrogen 45H, Creatinine 2.0H, Estimat Glomerular Filtration Rate 40.4, Glucose Level 148H, Calcium Level 8.9 Height (Feet): 5 Height (Inches): 6.00 Weight (Pounds): 109 General Appearance: lethargic EENT: normal ENT inspection Neck: normal alignment Cardiovascular: normal peripheral pulses, normal rate, regular rhythm Respiratory/Chest: chest wall non-tender, lungs clear, normal breath sounds Abdomen: normal bowel sounds, non tender, soft Extremities: normal inspection Edema: no edema noted Arm (L), no edema noted Arm (R), no edema noted Leg (L), no edema noted Leg (R), no edema noted Pedal (L), no edema noted Pedal (R), no edema noted Generalized Neurologic: motor weakness Skin: normal pigmentation, warm/dry Jaleel Moon DO Feb 16, 2019 14:05
--- NOTE | 2019-02-16 14:26 | NUR ---
*-* INSURANCE *-* ALL AVAILABLE CLINICALS AND REVIEWS HAVE BEEN FAXED TO: [employer] P- [phone] F- [phone]...REVIEW/CLINICAL
--- NOTE | 2019-02-16 14:47 | NUR ---
RD ASSESSMENT & RECOMMENDATIONS SEE CARE ACTIVITY FOR COMPLETE ASSESSMENT DAILY ESTIMATED NEEDS: Needs based on ARF, UNDERWEIGHT/ 49kg 30-35 kcals/kg 1196-0708 total kcals 1-1.5 g protein/kg 49-74 g total protein 25-30 mL/kg 7115-2604 total fluid mLs NUTRITION DIAGNOSIS: * Increased kcal/prot needs R/T recent wt loss, underweight status as evidenced by possible significant wt loss of ~30lbs/ 21% in 8 months. pt @ 77% IBW w/ underweight BMI per guidelines, pt is now S/P PEG . * Altered nutrition related lab values R/T ARF, volume deficit as evidenced by elev BUN (92-> 45), elev creat (3.1-> 2.0), elev Na (155-> wnl). CURRENT TF:Vital @60ml ENTERAL NUTRITION RECOMMENDATIONS: Glucerna 1.2 @55ml/hr x24 hrs to provide 1320ml, 1584 kcal, 79g pro, 1063ml [id number] - REC TF CHANGE TO GLUCERNA 1.2, start @25ml/hr, advance as tolerated 10ml/hr q4-6 hrs to goal - Flush per MD, HOB over 30 degrees. ADDITIONAL RECOMMENDATIONS: 1) Lytes daily w/ TF 2) TF CHANGE PER ABOVE RECS 3) WOUND CARE: Rec MVI x 1 and Efrain 1ptk BID 4) S/p PEG Placement, please RE-calibrate bed scale to monitor efficacy of TF rate. + WEEKLY WEIGHTS 5) Hypoglycemics prn, niss for BG control w/ TF
--- NOTE | 2019-02-16 15:14 | Cardiac Electrophysiology PN ---
Assessment/Plan Assessment/Plan 1. Hypotension in a patient with history of hypertension. Resolved on IV antibiotic. Echo showed Nl EF. 2. History of dementia. Head CT is negative. 3. Renal failure and hypernatremia with sodium 154 with a BUN of 99, creatinine 3.4. It is likely due to dehydration. On IV fluids. 4. Dehydration. 5. Negative troponin. 6. Dysphagia, S/P PEG by Dr Lizzie OBANDO RN Subjective Subjective No new events.Nonverbal in restraints. . Objective Last 24 Hour Vital Signs Date Time Temp Pulse Resp B/P (MAP) Pulse Ox O2 Delivery O2 Flow Rate FiO2 02/16/19 12:00 97.9 78 14 91/59 (70) 98 02/16/19 09:00 Room Air 02/16/19 08:00 98.1 109 20 125/76 (92) 100 02/16/19 04:21 98.5 110 19 104/78 (87) 02/16/19 00:45 97.9 108 18 104/66 (79) 02/15/19 21:00 Room Air 02/15/19 20:00 98.0 95 19 99/56 (70) 02/15/19 16:00 97.6 84 18 121/79 (93) 95 Intake and Output 02/15/19 02/16/19 19:00 07:00 Intake Total 1505.0 ml 1450 ml Output Total 1600 ml Balance 1505.0 ml -150 ml Intake Free Water 300 ml 150 ml IV Total 1065.0 ml 900 ml Tube Feeding 140 ml 400 ml Output Urine Total 1600 ml # Bowel Movements 2 Laboratory Tests Test 02/16/19 06:50 White Blood Count 9.4 K/UL (4.8-10.8) Red Blood Count 4.57 M/UL (4.70-6.10) L Hemoglobin 14.4 G/DL (14.2-18.0) Hematocrit 43.0 % (42.0-52.0) Mean Corpuscular Volume 94 FL (80-99) Mean Corpuscular Hemoglobin 31.5 PG (27.0-31.0) H Mean Corpuscular Hemoglobin Concent 33.4 G/DL (32.0-36.0) Red Cell Distribution Width 12.3 % (11.6-14.8) Platelet Count 124 K/UL (150-450) L Mean Platelet Volume 8.1 FL (6.5-10.1) Neutrophils (%) (Auto) 68.6 % (45.0-75.0) Lymphocytes (%) (Auto) 20.8 % (20.0-45.0) Monocytes (%) (Auto) 9.5 % (1.0-10.0) Eosinophils (%) (Auto) 0.6 % (0.0-3.0) Basophils (%) (Auto) 0.6 % (0.0-2.0) Sodium Level 139 MMOL/L (136-145) Potassium Level 3.5 MMOL/L (3.5-5.1) Chloride Level 106 MMOL/L (98-107) Carbon Dioxide Level 25 MMOL/L (21-32) Anion Gap 8 mmol/L (5-15) Blood Urea Nitrogen 45 mg/dL (7-18) H Creatinine 2.0 MG/DL (0.55-1.30) H Estimat Glomerular Filtration Rate 40.4 mL/min (>60) Glucose Level 148 MG/DL (74-106) H Calcium Level 8.9 MG/DL (8.5-10.1) Objective HEAD AND NECK: No JVD. LUNGS: Coarse rhonchi. CARDIOVASCULAR: Shows regular S1 and S2 with no gallop or murmur. ABDOMEN: Soft.PEG in place EXTREMITIES: No pitting edema. Bryce Ba MD Feb 16, 2019 15:14
--- NOTE | 2019-02-16 15:44 | Nephrology Progress Note ---
Assessment/Plan Problem List: (1) ARF (acute renal failure) Assessment: cr lowering (2) CKD (chronic kidney disease) (3) Failure to thrive syndrome, adult (4) Hypernatremia Assessment Acute encephalopathy Psych history & Paranoia h/o Prostate cancer CKD (chronic kidney disease), superimposed ARF / Dehydration h/o Hepatitis C h/o Dementia Plan D5w Hydrate monitor renal parameters keep BP and BS in check per orders Subjective ROS Limited/Unobtainable: No Constitutional: Reports: malaise, weakness Objective Objective Last 24 Hour Vital Signs Date Time Temp Pulse Resp B/P (MAP) Pulse Ox O2 Delivery O2 Flow Rate FiO2 02/16/19 12:00 97.9 78 14 91/59 (70) 98 02/16/19 09:00 Room Air 02/16/19 08:00 98.1 109 20 125/76 (92) 100 02/16/19 04:21 98.5 110 19 104/78 (87) 02/16/19 00:45 97.9 108 18 104/66 (79) 02/15/19 21:00 Room Air 02/15/19 20:00 98.0 95 19 99/56 (70) 02/15/19 16:00 97.6 84 18 121/79 (93) 95 Intake and Output 02/15/19 02/16/19 19:00 07:00 Intake Total 1505.0 ml 1450 ml Output Total 1600 ml Balance 1505.0 ml -150 ml Intake Free Water 300 ml 150 ml IV Total 1065.0 ml 900 ml Tube Feeding 140 ml 400 ml Output Urine Total 1600 ml # Bowel Movements 2 Laboratory Tests 02/16/19 06:50: White Blood Count 9.4, Red Blood Count 4.57L, Hemoglobin 14.4, Hematocrit 43.0, Mean Corpuscular Volume 94, Mean Corpuscular Hemoglobin 31.5H, Mean Corpuscular Hemoglobin Concent 33.4, Red Cell Distribution Width 12.3, Platelet Count 124L, Mean Platelet Volume 8.1, Neutrophils (%) (Auto) 68.6, Lymphocytes (%) (Auto) 20.8, Monocytes (%) (Auto) 9.5, Eosinophils (%) (Auto) 0.6, Basophils (%) (Auto ) 0.6, Sodium Level 139, Potassium Level 3.5, Chloride Level 106, Carbon Dioxide Level 25, Anion Gap 8, Blood Urea Nitrogen 45H, Creatinine 2.0H, Estimat Glomerular Filtration Rate 40.4, Glucose Level 148H, Calcium Level 8.9 Height (Feet): 5 Height (Inches): 6.00 Weight (Pounds): 109 General Appearance: no apparent distress Cardiovascular: normal rate Respiratory/Chest: decreased breath sounds Abdomen: soft Objective no change Tanner Grant MD Feb 16, 2019 15:43
--- NOTE | 2019-02-16 15:47 | NUR ---
[employer] SPECTROMETRY SPECIALIST SI:ACUTE ENCEPHALOPATHY . PYELONEPHRITIS VS: BP 91/59, P 110, T 98.5, RR 20, SpO2 98 RBC 4.57, BUN 45, CR 2.0 IS: DEPAKOTE 500mg HEPARIN SUBQ DEXTROSE x1L IV FLOMAX 0.4mg ZOSYN 110ml IVPB MED/SURG STATUS
[2019-02-16 16:00] VITALS: BP 108/67
[2019-02-16] MEDS: LORazepam Inj 2mg/ml 1ml IV PRN (17:32)
--- NOTE | 2019-02-16 19:21 | NUR ---
HAND-OFF: Report given to Cindy CARMEN.
--- NOTE | 2019-02-16 19:42 | NUR ---
NURSE NOTES: Received patient in bed, awake, confused, disoriented, at the bedside, VSS, afebrile, no acute distress noted. Call light is within reach, bed is in low position, locked and alarm is on, will continue to monitor for safety and comfort.
[2019-02-16 20:00] VITALS: BP 109/58
--- NOTE | 2019-02-16 22:07 | Psych Consult Progress Note ---
Psychiatry Progress Note Psychiatry Progress Note Subjective the pt is confused and has episodes of confusion Medications Current Medications Medications (Trade) Dose Ordered Sig/Lucie Route PRN Reason Start Time Stop Time Status Last Admin Dose Admin Acetaminophen (Tylenol) 650 mg Q4H PRN ORAL Mild Pain/Temp > 100.5 02/12/19 08:15 03/14/19 08:14 02/14/19 00:45 Clonidine HCl (Catapres Tab) 0.1 mg Q4H PRN ORAL For High Blood Pressure 02/12/19 08:15 03/14/19 08:14 Dextrose 1,000 ml @ 50 mls/hr Q20H IV 02/16/19 16:00 03/14/19 15:59 Dextrose (Dextrose 50%) 25 ml Q30M PRN IV Hypoglycemia 02/12/19 08:15 03/14/19 08:14 Dextrose (Dextrose 50%) 50 ml Q30M PRN IV Hypoglycemia 02/12/19 08:15 03/14/19 08:14 Divalproex Sodium (Depakote) 500 mg EVERY 12 HOURS ORAL 02/12/19 09:00 03/14/19 08:59 02/16/19 21:28 Docusate Sodium (Colace) 100 mg TWICE A DAY ORAL 02/12/19 09:00 03/14/19 08:59 02/16/19 17:32 Haloperidol (Haldol) 5 mg Q6H PRN ORAL Agitation 02/12/19 08:30 03/14/19 08:29 02/12/19 16:20 Heparin Sodium (Porcine) (Heparin 5000 units/ml) 5,000 units EVERY 12 HOURS SUBQ 02/12/19 09:00 03/14/19 08:59 02/16/19 21:30 Lorazepam (Ativan 2mg/ml 1ml) 0.5 mg Q4H PRN IV For Anxiety 02/12/19 08:15 02/19/19 08:14 02/16/19 17:32 Morphine Sulfate (Morphine Sulfate) 1 mg Q4H PRN IVP For Pain 02/12/19 08:15 02/19/19 08:14 02/15/19 01:32 Olanzapine (ZyPREXA) 2.5 mg TID PRN ORAL agitation 02/13/19 11:00 03/14/19 13:59 Ondansetron HCl (Zofran) 4 mg Q6H PRN IVP Nausea & Vomiting 02/12/19 08:15 03/14/19 08:14 Piperacillin Sod/ Tazobactam Sod 3.375 gm/Sodium Chloride 110 ml @ 27.5 mls/hr EVERY 8 HOURS IVPB 02/14/19 14:00 02/19/19 13:59 02/16/19 21:28 Polyethylene Glycol (Miralax) 17 gm HSPRN PRN ORAL Constipation 02/12/19 08:15 03/14/19 08:14 Tamsulosin HCl (Flomax) 0.4 mg BID ORAL 02/12/19 18:00 03/14/19 17:59 02/16/19 17:32 Zolpidem Tartrate (Ambien) 5 mg HSPRN PRN ORAL Insomnia 02/12/19 08:15 02/19/19 08:14 Neurological/Psychiatric: Reports: anxiety, depressed, emotional problems, weakness Allergies: Uncoded Allergies: anesthetics unspecified (Allergy, Mild, 02/12/19) sulfonamides (Allergy, Mild, rash, 02/12/19) Objective Data Height (Feet): 5 Height (Inches): 6.00 Weight (Pounds): 109 General Appearance: WD/WN, alert, confused, agitated Appearance: no abnormalities noted Behavior Mannerisms: poor eye contact Mental Status Exam - Affect: blunted Mental Status Exam - Mood: anxious, agitated Mental Status Exam - Thought P: tangential, confusion, disorganized Mental Status Exam - Thought C: delusions (specify) Perceptual Disturbances: hallucinations Mental Status Exam - Suicidal: not present Assessment/Plan Problem List: (1) Dementia with behavioral disturbance ICD Codes: F03.91 - Unspecified dementia with behavioral disturbance SNOMED: 8215576688409 Status: stable, progressing Assessment/Plan: zyprexa standing zyprexa prn haldol prn Mckenna Davis MD Feb 16, 2019 22:07
[2019-02-17] VITALS (8 sets, daily range): BP systolic 80–119; BP diastolic 56–71
[2019-02-17] MEDS: Piperacillin/Tazobactam 3.375 GM in NS 110 ML IVPB SCH ×3 (06:21→21:00)
--- NOTE | 2019-02-17 07:10 | NUR ---
HAND-OFF: Report given to Omar CARMEN.
[2019-02-17 07:39] LABS: BASOPHILS % (AUTO) 0.3 % (0.0-2.0); EOSINOPHILS % (AUTO) 1.4 % (0.0-3.0); HEMATOCRIT 36.9 % (42.0-52.0); HEMOGLOBIN 12.5 G/DL (14.2-18.0); LYMPHOCYTES % (AUTO) 29.3 % (20.0-45.0); MEAN CORPUSCULAR VOLUME 92 FL (80-99); MONOCYTES % (AUTO) 12.1 % (1.0-10.0); NEUTROPHILS % (AUTO) 56.9 % (45.0-75.0); PLATELET COUNT 160 K/UL (150-450); RED BLOOD COUNT 4.01 M/UL (4.70-6.10); WHITE BLOOD COUNT 8.6 K/UL (4.8-10.8)
--- NOTE | 2019-02-17 07:41 | Cardiac Electrophysiology PN ---
Assessment/Plan Assessment/Plan 1. Hypotension in a patient with history of hypertension. Resolved on IV antibiotic and fluids. Echo showed Nl EF. 2. History of dementia. Head CT is negative. 3. Renal failure and hypernatremia with sodium 154 with a BUN of 99, creatinine 3.4. It is likely due to dehydration. On IV fluids. Cr down to 2.0 4. Dehydration. 5. Negative troponin. 6. Dysphagia, S/P PEG by Dr Lizzie OBANDO RN Subjective Subjective No new events. Nonverbal in restraints. Having blood draws Objective Last 24 Hour Vital Signs Date Time Temp Pulse Resp B/P (MAP) Pulse Ox O2 Delivery O2 Flow Rate FiO2 02/17/19 04:56 97.3 58 16 119/71 (87) 02/17/19 01:20 97.7 80 18 105/67 (80) 02/17/19 00:00 97.7 60 18 105/67 (80) 02/16/19 21:00 Room Air 02/16/19 20:00 97.2 80 17 109/58 (75) 02/16/19 16:00 98.0 83 18 108/67 (81) 99 02/16/19 12:00 97.9 78 14 91/59 (70) 98 02/16/19 09:00 Room Air 02/16/19 08:00 98.1 109 20 125/76 (92) 100 Intake and Output 02/16/19 02/17/19 19:00 07:00 Intake Total 240 ml 1510 ml Output Total 600 ml 600 ml Balance -360 ml 910 ml Intake Free Water 150 ml IV Total 500 ml Tube Feeding 240 ml 60 ml Other 800 ml Output Urine Total 600 ml 600 ml # Voids 2 # Bowel Movements 2 Laboratory Tests Test 02/17/19 07:30 White Blood Count Pending Red Blood Count Pending Hemoglobin Pending Hematocrit Pending Mean Corpuscular Volume Pending Mean Corpuscular Hemoglobin Pending Mean Corpuscular Hemoglobin Concent Pending Red Cell Distribution Width Pending Platelet Count Pending Mean Platelet Volume Pending Neutrophils (%) (Auto) Pending Lymphocytes (%) (Auto) Pending Monocytes (%) (Auto) Pending Eosinophils (%) (Auto) Pending Basophils (%) (Auto) Pending Sodium Level Pending Potassium Level Pending Chloride Level Pending Carbon Dioxide Level Pending Blood Urea Nitrogen Pending Creatinine Pending Estimat Glomerular Filtration Rate Pending Glucose Level Pending Uric Acid Pending Calcium Level Pending Phosphorus Level Pending Magnesium Level Pending Total Bilirubin Pending Aspartate Amino Transf (AST/SGOT) Pending Alanine Aminotransferase (ALT/SGPT) Pending Alkaline Phosphatase Pending C-Reactive Protein, Quantitative Pending Pro-B-Type Natriuretic Peptide Pending Total Protein Pending Albumin Pending Globulin Pending Valproic Acid (Depakene) Level Pending Objective HEAD AND NECK: No JVD. LUNGS: Coarse rhonchi. CARDIOVASCULAR: Regular S1 and S2 with no gallop or murmur. ABDOMEN: Soft.PEG in place EXTREMITIES: No pitting edema. Bryce Ba MD February 17, 2019 07:40
--- NOTE | 2019-02-17 07:48 | NUR ---
NURSE NOTES: Received report from KERMIT White. Patient in bed resting, no active s/s cardiac, respiratory distress noticed at this time, denies pain at this time. Patient on 2L oxygen via NC. IV on right upper arm 22G, left upper arm 22G, asymptomatic, patent, intact, IV fluid running at prescribed rate. Patient on G-tube feeding at rate of 60ml/h, tolerating, patient on bilateral soft wrist restraints, cap refill <3sec, able to move, condom catheter draining well to gravity. Bed in lowest position, side rails upx3, call light within reach, bed alarm on. Will continue to monitor.
[2019-02-17 08:06] LABS: PHOSPHORUS 2.4 MG/DL (2.5-4.9)
[2019-02-17 08:55] LABS: ALANINE AMINOTRANSFERASE 15 U/L (12-78); ALBUMIN/GLOBULIN RATIO 0.4 (1.0-2.7); ALKALINE PHOSPHATASE 71 U/L (46-116); ANION GAP 9 mmol/L (5-15); ASPARTATE AMINO TRANSFERASE 26 U/L (15-37); BILIRUBIN,TOTAL 0.3 MG/DL (0.2-1.0); CALCIUM 8.6 MG/DL (8.5-10.1); CARBON DIOXIDE 25 MMOL/L (21-32); CHLORIDE 109 MMOL/L (98-107); CREATININE 1.6 MG/DL (0.55-1.30); POTASSIUM 3.8 MMOL/L (3.5-5.1); SODIUM 143 MMOL/L (136-145)
[2019-02-17 09:00] LABS: BLOOD UREA NITROGEN 37 mg/dL (7-18)
--- NOTE | 2019-02-17 09:04 | NUR ---
PT NOTES: Cleared by Adelita Burgess for PT service. However, this INCOMING FREIGHT CLERK unable to rouse pt due to deep sleep/lethargy. Unable to participate with skilled PT interventions at this time. Will try back later today if schedule permits.
[2019-02-17] MEDS: Docusate 100mg cap ORAL SCH ×2 (09:21→17:22)
[2019-02-17] MEDS: Depakote 500mg tab ORAL SCH ×2 (09:21→21:00)
[2019-02-17] MEDS: Tamsulosin 0.4mg cap ORAL SCH ×2 (09:21→17:22)
[2019-02-17] MEDS: Heparin 5000 units/ml inj SUBQ SCH ×2 (09:23→21:01)
[2019-02-17] MEDS: LORazepam Inj 2mg/ml 1ml IV PRN (09:30)
--- NOTE | 2019-02-17 09:38 | General Progress Note ---
Assessment/Plan Problem List: (1) UTI (urinary tract infection) ICD Codes: N39.0 - Urinary tract infection, site not specified SNOMED: 81774178 (2) CKD (chronic kidney disease) ICD Codes: N18.9 - CKD (chronic kidney disease) SNOMED: 772302403 (3) ARF (acute renal failure) ICD Codes: N17.9 - ARF (acute renal failure) SNOMED: 45717683 (4) Failure to thrive syndrome, adult ICD Codes: R62.7 - Failure to thrive syndrome, adult SNOMED: 032344047 (5) Hepatitis C ICD Codes: B19.20 - Unspecified viral hepatitis C without hepatic coma SNOMED: 32466941 (6) HTN (hypertension) ICD Codes: I10 - Essential (primary) hypertension SNOMED: 72929008 Status: stable, progressing Assessment/Plan: pt diet abx gi eval cbc bmp am dc plan snf Subjective Constitutional: Reports: weakness Allergies: Uncoded Allergies: anesthetics unspecified (Allergy, Mild, 02/12/19) sulfonamides (Allergy, Mild, rash, 02/12/19) All Systems: reviewed and negative except above Subjective o2nc sleepy calm Objective Last 24 Hour Vital Signs Date Time Temp Pulse Resp B/P (MAP) Pulse Ox O2 Delivery O2 Flow Rate FiO2 02/17/19 08:00 96.8 77 18 106/70 (82) 100 02/17/19 04:56 97.3 58 16 119/71 (87) 02/17/19 01:20 97.7 80 18 105/67 (80) 02/17/19 00:00 97.7 60 18 105/67 (80) 02/16/19 21:00 Room Air 02/16/19 20:00 97.2 80 17 109/58 (75) 02/16/19 16:00 98.0 83 18 108/67 (81) 99 02/16/19 12:00 97.9 78 14 91/59 (70) 98 Intake and Output 02/16/19 02/17/19 19:00 07:00 Intake Total 240 ml 1510 ml Output Total 600 ml 600 ml Balance -360 ml 910 ml Intake Free Water 150 ml IV Total 500 ml Tube Feeding 240 ml 60 ml Other 800 ml Output Urine Total 600 ml 600 ml # Voids 2 # Bowel Movements 2 Laboratory Tests 02/17/19 07:30: White Blood Count 8.6, Red Blood Count 4.01L, Hemoglobin 12.5L, Hematocrit 36.9L , Mean Corpuscular Volume 92, Mean Corpuscular Hemoglobin 31.2H, Mean Corpuscular Hemoglobin Concent 33.9, Red Cell Distribution Width 12.0, Platelet Count 160, Mean Platelet Volume 7.6, Neutrophils (%) (Auto) 56.9, Lymphocytes (% ) (Auto) 29.3, Monocytes (%) (Auto) 12.1H, Eosinophils (%) (Auto) 1.4, Basophils (%) (Auto) 0.3, Sodium Level 143, Potassium Level 3.8, Chloride Level 109H, Carbon Dioxide Level 25, Anion Gap 9, Blood Urea Nitrogen 37H, Creatinine 1.6H, Estimat Glomerular Filtration Rate 52.2, Glucose Level 131H, Uric Acid 5.9 , Calcium Level 8.6, Phosphorus Level 2.4L, Magnesium Level 1.9, Total Bilirubin 0.3, Aspartate Amino Transf (AST/SGOT) 26, Alanine Aminotransferase ( ALT/SGPT) 15, Alkaline Phosphatase 71, C-Reactive Protein, Quantitative 8.5H, Pro-B-Type Natriuretic Peptide 281H, Total Protein 6.7, Albumin 2.0L, Globulin 4.7, Albumin/Globulin Ratio 0.4L, Valproic Acid (Depakene) Level 32L Height (Feet): 5 Height (Inches): 6.00 Weight (Pounds): 109 General Appearance: lethargic EENT: normal ENT inspection Neck: normal alignment Cardiovascular: normal peripheral pulses, normal rate, regular rhythm Respiratory/Chest: chest wall non-tender, lungs clear, normal breath sounds Abdomen: normal bowel sounds, non tender, soft Extremities: normal inspection Edema: no edema noted Arm (L), no edema noted Arm (R), no edema noted Leg (L), no edema noted Leg (R), no edema noted Pedal (L), no edema noted Pedal (R), no edema noted Generalized Neurologic: motor weakness Skin: normal pigmentation, warm/dry Jaleel Moon DO February 17, 2019 09:38
--- NOTE | 2019-02-17 10:02 | NUR ---
FRETTED INSTRUMENT MAKER HANDCLOTH NEUTRALIZER SI:ARF . FAILURE TO THRIVE S/P PEG INSERTION VS; BP 80/57, P 81, T 97.3, RR 18, SpO2 97 RBC 4.01, Hgb 12.5, Hct 36.9, BUN 37, Cr 1.6 IS:LORAZEPAM 1.5mg DEPAKOTE 500mg HEPARIN SUBQ FLOMAX 0.4mg ZOSYN 110ml IVPB D5 x1L IV MED/SURG STATUS
--- NOTE | 2019-02-17 10:02 | NUR ---
SWALLOW/SPEECH THERAPY NOTE: DR RODRIGUEZ ORDERED SWALLOW EVAL ON 02/13 OVER THE WEEKEND. SINCE PT HAD PLACED 02/16 NOT ABLE TO ASSESS. THE FOLLOWING DAY, PATIENT NOT ALERT AND NOW PT TO HAVE MRI OF BRAIN WITH SEDATION TO R/O NEW NEURO EVENT. SEE TOMORROW IF ALERT. CONTINUE WITH ORAL CARE AND PEG FEEDINGS. D/W CHARGE ELADIO CARMEN SINCE HAE NOT AVAILABLE
--- NOTE | 2019-02-17 10:40 | NUR ---
NURSE NOTES: Paged Dr. Bermudez regarding patient schedule for MRI brain today, prior to MRI, 0.5 mg Ativan given, but patient bouncing off head, MRI requesting more sedation in order to take MRI. Awaiting for callback.
--- NOTE | 2019-02-17 10:55 | GI Progress Note ---
Assessment/Plan Problems: (1) Encounter for PEG (percutaneous endoscopic gastrostomy) ICD Codes: Z43.1 - Encounter for attention to gastrostomy SNOMED: 891685285, 840353816 (2) Hepatitis C ICD Codes: B19.20 - Unspecified viral hepatitis C without hepatic coma SNOMED: 91197635 (3) Failure to thrive syndrome, adult ICD Codes: R62.7 - Failure to thrive syndrome, adult SNOMED: 414524538 (4) Dementia with behavioral disturbance ICD Codes: F03.91 - Unspecified dementia with behavioral disturbance SNOMED: 8121139463694 (5) Ileus ICD Codes: K56.7 - Ileus, unspecified SNOMED: 555512643 Status: stable Status Narrative Discussed with Dr. Samuel Assessment/Plan Status post PEG G-tube feedings per dietitian Continue antibiotics GT site care daily and as needed Elevate head of bed at all times PRN transfusion PPI Reglan as needed for GI motility DC planning The patient was seen and examined at bedside and all new and available data was reviewed in the patients chart. I agree with the above findings, impression and plan. (Patient seen earlier today. Signature stamp does not reflect patient encounter time.). - Min Samuel MD Subjective Subjective Limited Objective Last 24 Hour Vital Signs Date Time Temp Pulse Resp B/P (MAP) Pulse Ox O2 Delivery O2 Flow Rate FiO2 02/17/19 09:00 Room Air 02/17/19 08:00 96.8 77 18 106/70 (82) 100 02/17/19 04:56 97.3 58 16 119/71 (87) 02/17/19 01:20 97.7 80 18 105/67 (80) 02/17/19 00:00 97.7 60 18 105/67 (80) 02/16/19 21:00 Room Air 02/16/19 20:00 97.2 80 17 109/58 (75) 02/16/19 16:00 98.0 83 18 108/67 (81) 99 02/16/19 12:00 97.9 78 14 91/59 (70) 98 Intake and Output 02/16/19 02/17/19 18:59 06:59 Intake Total 300 ml 1510 ml Output Total 600 ml 600 ml Balance -300 ml 910 ml Intake Free Water 150 ml IV Total 500 ml Tube Feeding 300 ml 60 ml Other 800 ml Output Urine Total 600 ml 600 ml # Voids 2 # Bowel Movements 2 Laboratory Tests Test 02/17/19 07:30 White Blood Count 8.6 K/UL (4.8-10.8) Red Blood Count 4.01 M/UL (4.70-6.10) L Hemoglobin 12.5 G/DL (14.2-18.0) L Hematocrit 36.9 % (42.0-52.0) L Mean Corpuscular Volume 92 FL (80-99) Mean Corpuscular Hemoglobin 31.2 PG (27.0-31.0) H Mean Corpuscular Hemoglobin Concent 33.9 G/DL (32.0-36.0) Red Cell Distribution Width 12.0 % (11.6-14.8) Platelet Count 160 K/UL (150-450) Mean Platelet Volume 7.6 FL (6.5-10.1) Neutrophils (%) (Auto) 56.9 % (45.0-75.0) Lymphocytes (%) (Auto) 29.3 % (20.0-45.0) Monocytes (%) (Auto) 12.1 % (1.0-10.0) H Eosinophils (%) (Auto) 1.4 % (0.0-3.0) Basophils (%) (Auto) 0.3 % (0.0-2.0) Sodium Level 143 MMOL/L (136-145) Potassium Level 3.8 MMOL/L (3.5-5.1) Chloride Level 109 MMOL/L (98-107) H Carbon Dioxide Level 25 MMOL/L (21-32) Anion Gap 9 mmol/L (5-15) Blood Urea Nitrogen 37 mg/dL (7-18) H Creatinine 1.6 MG/DL (0.55-1.30) H Estimat Glomerular Filtration Rate 52.2 mL/min (>60) Glucose Level 131 MG/DL (74-106) H Uric Acid 5.9 MG/DL (2.6-7.2) Calcium Level 8.6 MG/DL (8.5-10.1) Phosphorus Level 2.4 MG/DL (2.5-4.9) L Magnesium Level 1.9 MG/DL (1.8-2.4) Total Bilirubin 0.3 MG/DL (0.2-1.0) Aspartate Amino Transf (AST/SGOT) 26 U/L (15-37) Alanine Aminotransferase (ALT/SGPT) 15 U/L (12-78) Alkaline Phosphatase 71 U/L (46-116) C-Reactive Protein, Quantitative 8.5 mg/dL (0.00-0.90) H Pro-B-Type Natriuretic Peptide 281 pg/mL (0-125) H Total Protein 6.7 G/DL (6.4-8.2) Albumin 2.0 G/DL (3.4-5.0) L Globulin 4.7 g/dL Albumin/Globulin Ratio 0.4 (1.0-2.7) L Valproic Acid (Depakene) Level 32 MCG/ML (50-100) L Height (Feet): 5 Height (Inches): 6.00 Weight (Pounds): 109 General Appearance: WD/WN, no apparent distress, alert Cardiovascular: normal rate Respiratory/Chest: normal breath sounds, no respiratory distress Abdominal Exam: normal bowel sounds, non tender, soft, GT site - Clean dry and intact Extremities: non-tender Daniel Zhu NP February 17, 2019 10:55
--- NOTE | 2019-02-17 11:27 | NUR ---
CONCERNING MRI... PT DOES NOT STAY ASLEEP, CONTINUES TO MOVE HEAD AND BODY DURING SCAN. TJB 11:29
--- NOTE | 2019-02-17 11:43 | NUR ---
NURSE NOTES: Per Dr. Bermudez, 1.5mg Ativan IV one time prior to MRI. Order noted, entered, carried out.
[2019-02-17] MEDS ORDERED: LORazepam Inj 2mg/ml 1ml IV SCH (11:46)
--- NOTE | 2019-02-17 13:53 | Pulmonology Progress Note ---
Assessment/Plan Problems: (1) Acute encephalopathy (2) Sepsis (3) ATN (acute tubular necrosis) (4) Pyelonephritis (5) Prostate cancer (6) Cerebral vascular disease (7) Methadone maintenance therapy patient (8) HTN (hypertension) (9) Hepatitis C Assessment/Plan PEG in place bun/creatinine improving neuro consult appreciated more awake now iv fluids iv abx check cultures neuro f/u hold mind altering meds Subjective ROS Limited/Unobtainable: No Constitutional: Reports: no symptoms HEENT: Repors: no symptoms Respiratory: Reports: no symptoms Allergies: Uncoded Allergies: anesthetics unspecified (Allergy, Mild, 02/12/19) sulfonamides (Allergy, Mild, rash, 02/12/19) Objective Last 24 Hour Vital Signs Date Time Temp Pulse Resp B/P (MAP) Pulse Ox O2 Delivery O2 Flow Rate FiO2 02/17/19 09:00 Room Air 02/17/19 08:00 96.8 77 18 106/70 (82) 100 02/17/19 04:56 97.3 58 16 119/71 (87) 02/17/19 01:20 97.7 80 18 105/67 (80) 02/17/19 00:00 97.7 60 18 105/67 (80) 02/16/19 21:00 Room Air 02/16/19 20:00 97.2 80 17 109/58 (75) 02/16/19 16:00 98.0 83 18 108/67 (81) 99 Intake and Output 02/16/19 02/17/19 18:59 06:59 Intake Total 300 ml 1510 ml Output Total 600 ml 600 ml Balance -300 ml 910 ml Intake Free Water 150 ml IV Total 500 ml Tube Feeding 300 ml 60 ml Other 800 ml Output Urine Total 600 ml 600 ml # Voids 2 # Bowel Movements 2 Objective General Appearance: cachectic Lines, tubes and drains: peripheral HEENT: normocephalic, atraumatic Neck: non-tender, normal alignment Respiratory/Chest: chest wall non-tender, lungs clear Cardiovascular/Chest: normal peripheral pulses, normal rate Abdomen: normal bowel sounds Extremities: normal range of motion Laboratory Tests 02/17/19 07:30: White Blood Count 8.6, Red Blood Count 4.01L, Hemoglobin 12.5L, Hematocrit 36.9L , Mean Corpuscular Volume 92, Mean Corpuscular Hemoglobin 31.2H, Mean Corpuscular Hemoglobin Concent 33.9, Red Cell Distribution Width 12.0, Platelet Count 160, Mean Platelet Volume 7.6, Neutrophils (%) (Auto) 56.9, Lymphocytes (% ) (Auto) 29.3, Monocytes (%) (Auto) 12.1H, Eosinophils (%) (Auto) 1.4, Basophils (%) (Auto) 0.3, Sodium Level 143, Potassium Level 3.8, Chloride Level 109H, Carbon Dioxide Level 25, Anion Gap 9, Blood Urea Nitrogen 37H, Creatinine 1.6H, Estimat Glomerular Filtration Rate 52.2, Glucose Level 131H, Uric Acid 5.9 , Calcium Level 8.6, Phosphorus Level 2.4L, Magnesium Level 1.9, Total Bilirubin 0.3, Aspartate Amino Transf (AST/SGOT) 26, Alanine Aminotransferase ( ALT/SGPT) 15, Alkaline Phosphatase 71, C-Reactive Protein, Quantitative 8.5H, Pro-B-Type Natriuretic Peptide 281H, Total Protein 6.7, Albumin 2.0L, Globulin 4.7, Albumin/Globulin Ratio 0.4L, Valproic Acid (Depakene) Level 32L Current Medications Medications (Trade) Dose Ordered Sig/Lucie Route PRN Reason Start Time Stop Time Status Last Admin Dose Admin Acetaminophen (Tylenol) 650 mg Q4H PRN ORAL Mild Pain/Temp > 100.5 02/12/19 08:15 03/14/19 08:14 02/14/19 00:45 Clonidine HCl (Catapres Tab) 0.1 mg Q4H PRN ORAL For High Blood Pressure 02/12/19 08:15 03/14/19 08:14 Dextrose 1,000 ml @ 50 mls/hr Q20H IV 02/16/19 16:00 03/14/19 15:59 02/17/19 12:35 Dextrose (Dextrose 50%) 25 ml Q30M PRN IV Hypoglycemia 02/12/19 08:15 03/14/19 08:14 Dextrose (Dextrose 50%) 50 ml Q30M PRN IV Hypoglycemia 02/12/19 08:15 03/14/19 08:14 Divalproex Sodium (Depakote) 500 mg EVERY 12 HOURS ORAL 02/12/19 09:00 5/26/19 08:59 02/17/19 09:21 Docusate Sodium (Colace) 100 mg TWICE A DAY ORAL 02/12/19 09:00 03/14/19 08:59 02/17/19 09:21 Haloperidol (Haldol) 5 mg Q6H PRN ORAL Agitation 02/12/19 08:30 03/14/19 08:29 02/12/19 16:20 Heparin Sodium (Porcine) (Heparin 5000 units/ml) 5,000 units EVERY 12 HOURS SUBQ 02/12/19 09:00 03/14/19 08:59 02/17/19 09:23 Lorazepam (Ativan 2mg/ml 1ml) 0.5 mg Q4H PRN IV For Anxiety 02/12/19 08:15 02/19/19 08:14 02/17/19 09:30 Morphine Sulfate (Morphine Sulfate) 1 mg Q4H PRN IVP For Pain 02/12/19 08:15 02/19/19 08:14 02/15/19 01:32 Olanzapine (ZyPREXA) 2.5 mg TID PRN ORAL agitation 02/13/19 11:00 03/14/19 13:59 Ondansetron HCl (Zofran) 4 mg Q6H PRN IVP Nausea & Vomiting 02/12/19 08:15 03/14/19 08:14 Piperacillin Sod/ Tazobactam Sod 3.375 gm/Sodium Chloride 110 ml @ 27.5 mls/hr EVERY 8 HOURS IVPB 02/14/19 14:00 02/19/19 13:59 02/17/19 06:21 Polyethylene Glycol (Miralax) 17 gm HSPRN PRN ORAL Constipation 02/12/19 08:15 03/14/19 08:14 Tamsulosin HCl (Flomax) 0.4 mg BID ORAL 02/12/19 18:00 03/14/19 17:59 02/17/19 09:21 Zolpidem Tartrate (Ambien) 5 mg HSPRN PRN ORAL Insomnia 02/12/19 08:15 02/19/19 08:14 German Mooney MD February 17, 2019 13:53
--- NOTE | 2019-02-17 14:52 | NUR ---
*-* INSURANCE *-* UPDATED AVAILABLE CLINICALS AND REVIEWS HAVE BEEN FAXED TO: [employer] P- [phone] F- [phone]...REVIEW/CLINICAL
--- NOTE | 2019-02-17 15:07 | Nephrology Progress Note ---
Assessment/Plan Problem List: (1) ARF (acute renal failure) Assessment: cr lowering (2) CKD (chronic kidney disease) (3) Failure to thrive syndrome, adult (4) Hypernatremia Assessment Acute encephalopathy Psych history & Paranoia h/o Prostate cancer CKD (chronic kidney disease), superimposed ARF / Dehydration h/o Hepatitis C h/o Dementia Plan D5w Hydrate monitor renal parameters keep BP and BS in check per orders Subjective ROS Limited/Unobtainable: No Constitutional: Reports: malaise Objective Objective Last 24 Hour Vital Signs Date Time Temp Pulse Resp B/P (MAP) Pulse Ox O2 Delivery O2 Flow Rate FiO2 02/17/19 09:00 Room Air 02/17/19 08:00 96.8 77 18 106/70 (82) 100 02/17/19 04:56 97.3 58 16 119/71 (87) 02/17/19 01:20 97.7 80 18 105/67 (80) 02/17/19 00:00 97.7 60 18 105/67 (80) 02/16/19 21:00 Room Air 02/16/19 20:00 97.2 80 17 109/58 (75) 02/16/19 16:00 98.0 83 18 108/67 (81) 99 Intake and Output 02/16/19 02/17/19 18:59 06:59 Intake Total 300 ml 1510 ml Output Total 600 ml 600 ml Balance -300 ml 910 ml Intake Free Water 150 ml IV Total 500 ml Tube Feeding 300 ml 60 ml Other 800 ml Output Urine Total 600 ml 600 ml # Voids 2 # Bowel Movements 2 Laboratory Tests 02/17/19 07:30: White Blood Count 8.6, Red Blood Count 4.01L, Hemoglobin 12.5L, Hematocrit 36.9L , Mean Corpuscular Volume 92, Mean Corpuscular Hemoglobin 31.2H, Mean Corpuscular Hemoglobin Concent 33.9, Red Cell Distribution Width 12.0, Platelet Count 160, Mean Platelet Volume 7.6, Neutrophils (%) (Auto) 56.9, Lymphocytes (% ) (Auto) 29.3, Monocytes (%) (Auto) 12.1H, Eosinophils (%) (Auto) 1.4, Basophils (%) (Auto) 0.3, Sodium Level 143, Potassium Level 3.8, Chloride Level 109H, Carbon Dioxide Level 25, Anion Gap 9, Blood Urea Nitrogen 37H, Creatinine 1.6H, Estimat Glomerular Filtration Rate 52.2, Glucose Level 131H, Uric Acid 5.9 , Calcium Level 8.6, Phosphorus Level 2.4L, Magnesium Level 1.9, Total Bilirubin 0.3, Aspartate Amino Transf (AST/SGOT) 26, Alanine Aminotransferase ( ALT/SGPT) 15, Alkaline Phosphatase 71, C-Reactive Protein, Quantitative 8.5H, Pro-B-Type Natriuretic Peptide 281H, Total Protein 6.7, Albumin 2.0L, Globulin 4.7, Albumin/Globulin Ratio 0.4L, Valproic Acid (Depakene) Level 32L Height (Feet): 5 Height (Inches): 6.00 Weight (Pounds): 109 Cardiovascular: normal rate Respiratory/Chest: decreased breath sounds Abdomen: soft Objective no change Tanner Grant MD February 17, 2019 15:07
--- NOTE | 2019-02-17 15:20 | Diagnostic Imaging Report ---
Indication: Altered mental status Technique: sagittal T1 fast spin echo, axial T1 FLAIR, axial T2 FLAIR, axial T2 FS PROPELLER, axial T2* GRE, axial diffusion weighted images. ADC and exponential ADC maps generated Comparison: CT scan 02/11/2019 Findings: Incidental note is made of a patent cavum septum pellucidum. No abnormal areas of restricted diffusion to suggest acute infarction. No acute hemorrhage or edema. No mass effect nor midline shift. There is age-related enlargement of the ventricles and extra axial CSF spaces. There is considerable confluent periventricular deep white matter high T2 signal, consistent with chronic microvascular ischemic changes.. Visualized orbits and sinuses are unremarkable. The vascular flow voids are preserved. Impression: Chronic and age-related changes, as described Negative for acute intracranial bleed, mass effect, or infarct
--- NOTE | 2019-02-17 19:19 | NUR ---
HAND-OFF: Report given to KERMIT White.
--- NOTE | 2019-02-17 19:35 | NUR ---
NURSE NOTES: Received patient in bed, EEG is done at bedside, patient is in soft bilateral wrist restraints( non behavioral), no acute distress noted, VSS, afebrile, call light is within reach, bed is in low position, locked and alarm is on. Will continue to monitor for safety and comfort.
--- NOTE | 2019-02-17 22:45 | Psych Consult Progress Note ---
Psychiatry Progress Note Psychiatry Progress Note Medications Current Medications Medications (Trade) Dose Ordered Sig/Lucie Route PRN Reason Start Time Stop Time Status Last Admin Dose Admin Acetaminophen (Tylenol) 650 mg Q4H PRN ORAL Mild Pain/Temp > 100.5 02/12/19 08:15 03/14/19 08:14 02/14/19 00:45 Clonidine HCl (Catapres Tab) 0.1 mg Q4H PRN ORAL For High Blood Pressure 02/12/19 08:15 03/14/19 08:14 Dextrose 1,000 ml @ 50 mls/hr Q20H IV 02/16/19 16:00 03/14/19 15:59 02/17/19 12:35 Dextrose (Dextrose 50%) 25 ml Q30M PRN IV Hypoglycemia 02/12/19 08:15 03/14/19 08:14 Dextrose (Dextrose 50%) 50 ml Q30M PRN IV Hypoglycemia 02/12/19 08:15 03/14/19 08:14 Divalproex Sodium (Depakote) 500 mg EVERY 12 HOURS ORAL 02/12/19 09:00 03/14/19 08:59 02/17/19 21:00 Docusate Sodium (Colace) 100 mg TWICE A DAY ORAL 02/12/19 09:00 03/14/19 08:59 02/17/19 17:22 Haloperidol (Haldol) 5 mg Q6H PRN ORAL Agitation 02/12/19 08:30 03/14/19 08:29 02/12/19 16:20 Heparin Sodium (Porcine) (Heparin 5000 units/ml) 5,000 units EVERY 12 HOURS SUBQ 02/12/19 09:00 03/14/19 08:59 02/17/19 21:01 Lorazepam (Ativan 2mg/ml 1ml) 0.5 mg Q4H PRN IV For Anxiety 02/12/19 08:15 02/19/19 08:14 02/17/19 09:30 Morphine Sulfate (Morphine Sulfate) 1 mg Q4H PRN IVP For Pain 02/12/19 08:15 02/19/19 08:14 02/15/19 01:32 Olanzapine (ZyPREXA) 2.5 mg TID PRN ORAL agitation 02/13/19 11:00 03/14/19 13:59 Ondansetron HCl (Zofran) 4 mg Q6H PRN IVP Nausea & Vomiting 02/12/19 08:15 03/14/19 08:14 Piperacillin Sod/ Tazobactam Sod 3.375 gm/Sodium Chloride 110 ml @ 27.5 mls/hr EVERY 8 HOURS IVPB 02/14/19 14:00 02/19/19 13:59 02/17/19 21:00 Polyethylene Glycol (Miralax) 17 gm HSPRN PRN ORAL Constipation 02/12/19 08:15 03/14/19 08:14 Tamsulosin HCl (Flomax) 0.4 mg BID ORAL 02/12/19 18:00 03/14/19 17:59 02/17/19 17:22 Zolpidem Tartrate (Ambien) 5 mg HSPRN PRN ORAL Insomnia 02/12/19 08:15 02/19/19 08:14 Neurological/Psychiatric: Reports: anxiety, depressed, emotional problems Allergies: Uncoded Allergies: anesthetics unspecified (Allergy, Mild, 02/12/19) sulfonamides (Allergy, Mild, rash, 02/12/19) Objective Data Height (Feet): 5 Height (Inches): 6.00 Weight (Pounds): 109 General Appearance: alert, confused, agitated Appearance: disheveled Behavior Mannerisms: poor eye contact Mental Status Exam - Affect: constricted Mental Status Exam - Mood: anxious, agitated Mental Status Exam - Thought P: illogical, tangential, confusion Mental Status Exam - Suicidal: not present Assessment/Plan Problem List: (1) Dementia with behavioral disturbance ICD Codes: F03.91 - Unspecified dementia with behavioral disturbance SNOMED: 2488322549602 Status: stable Assessment/Plan: zyprexa standing zyprexa prn haldol prn Mckenna Davis MD February 17, 2019 22:45
--- NOTE | 2019-02-17 23:26 | Neurology Progress Note ---
Interim History Interim History ROS Limited/Unobtainable: No Complaints: AMS Events: Post PEG Tube insertion Interim History THIS VISIT WAS CONDUCTED ON 02/17/19 Objective Physical Exam Last Vital Signs Date Time Temp Pulse Resp B/P (MAP) Pulse Ox O2 Delivery O2 Flow Rate FiO2 02/17/19 21:00 Room Air 02/17/19 20:00 97.3 68 18 105/67 (80) 02/17/19 17:00 97 02/15/19 10:45 3 Laboratory Tests Test 02/17/19 07:30 White Blood Count 8.6 K/UL (4.8-10.8) Red Blood Count 4.01 M/UL (4.70-6.10) L Hemoglobin 12.5 G/DL (14.2-18.0) L Hematocrit 36.9 % (42.0-52.0) L Mean Corpuscular Volume 92 FL (80-99) Mean Corpuscular Hemoglobin 31.2 PG (27.0-31.0) H Mean Corpuscular Hemoglobin Concent 33.9 G/DL (32.0-36.0) Red Cell Distribution Width 12.0 % (11.6-14.8) Platelet Count 160 K/UL (150-450) Mean Platelet Volume 7.6 FL (6.5-10.1) Neutrophils (%) (Auto) 56.9 % (45.0-75.0) Lymphocytes (%) (Auto) 29.3 % (20.0-45.0) Monocytes (%) (Auto) 12.1 % (1.0-10.0) H Eosinophils (%) (Auto) 1.4 % (0.0-3.0) Basophils (%) (Auto) 0.3 % (0.0-2.0) Sodium Level 143 MMOL/L (136-145) Potassium Level 3.8 MMOL/L (3.5-5.1) Chloride Level 109 MMOL/L (98-107) H Carbon Dioxide Level 25 MMOL/L (21-32) Anion Gap 9 mmol/L (5-15) Blood Urea Nitrogen 37 mg/dL (7-18) H Creatinine 1.6 MG/DL (0.55-1.30) H Estimat Glomerular Filtration Rate 52.2 mL/min (>60) Glucose Level 131 MG/DL (74-106) H Uric Acid 5.9 MG/DL (2.6-7.2) Calcium Level 8.6 MG/DL (8.5-10.1) Phosphorus Level 2.4 MG/DL (2.5-4.9) L Magnesium Level 1.9 MG/DL (1.8-2.4) Total Bilirubin 0.3 MG/DL (0.2-1.0) Aspartate Amino Transf (AST/SGOT) 26 U/L (15-37) Alanine Aminotransferase (ALT/SGPT) 15 U/L (12-78) Alkaline Phosphatase 71 U/L (46-116) C-Reactive Protein, Quantitative 8.5 mg/dL (0.00-0.90) H Pro-B-Type Natriuretic Peptide 281 pg/mL (0-125) H Total Protein 6.7 G/DL (6.4-8.2) Albumin 2.0 G/DL (3.4-5.0) L Globulin 4.7 g/dL Albumin/Globulin Ratio 0.4 (1.0-2.7) L Valproic Acid (Depakene) Level 32 MCG/ML (50-100) L General: other Head: normocophalic, other Neck: no rigidity EENT: benign Neurologic Exam Mental Status: awake Speech: other Language: other Cranial Nerves III, IV, : PERRLA, EOMI Cranial Nerve VII: no facial asymmetry Cranial Nerve XI: SCM symmetric Cranial Nerve XII: tongue midline Motor System: strength 5/5 Sensory: normal pinprick, normal light touch Objective Exam remains non focal and abnormal - patient continues to be able to move all extremities with equal strength to command or localizing in response to noxious stimuli. However, not verbalizing normally, not tracking with eyes, PUPILS UNEQUAL today - previously normal - likely metabolic cause. Impression/Recommendations Problems: (1) Dementia with behavioral disturbance Assessment & Plan: Exam more lethargic -possible secondary to procedure today. Will follow. (2) UTI (urinary tract infection) Assessment & Plan: Abx as per ID (3) Acute encephalopathy (4) Failure to thrive syndrome, adult Assessment & Plan: S/P PEG insertion today For TUBE feeding as per GI team. (5) Acute hypoactive delirium due to multiple etiologies Status: stable, not improved Recommendations Maintain normothermia Abx as per ID Na 135-145 Maintain sleep hygiene for patient Consider EEG Avoid use of benzodiazapenes, anticholinergics, and opioid narcotics. May utilize Seroquel 25mg QD/ QHS to BID PRN for behavioral agitation. Lydia Obrien N.P. February 17, 2019 23:26
[2019-02-18] VITALS: BP 115/67
[2019-02-18 04:00] VITALS: BP 126/62
[2019-02-18] MEDS: Piperacillin/Tazobactam 3.375 GM in NS 110 ML IVPB SCH ×3 (05:49→21:39)
--- NOTE | 2019-02-18 07:07 | NUR ---
NURSE NOTES: received report from KERMIT White. patient in bed. sleeping. no respiratory distress noted. IV intact running ATB. GT running. intact. condom cath draining. bed in the lowest position. alarm on. call light within reach. will continue to monitor.
--- NOTE | 2019-02-18 07:13 | NUR ---
HAND-OFF: Report given to Lindsay CARMEN.
[2019-02-18 07:42] LABS: BASOPHILS % (AUTO) 0.3 % (0.0-2.0); EOSINOPHILS % (AUTO) 2.1 % (0.0-3.0); HEMATOCRIT 38.7 % (42.0-52.0); HEMOGLOBIN 12.9 G/DL (14.2-18.0); LYMPHOCYTES % (AUTO) 34.8 % (20.0-45.0); MEAN CORPUSCULAR VOLUME 94 FL (80-99); NEUTROPHILS % (AUTO) 49.9 % (45.0-75.0); PLATELET COUNT 193 K/UL (150-450); RED BLOOD COUNT 4.11 M/UL (4.70-6.10); RED CELL DISTRIBUTION WIDTH 12.8 % (11.6-14.8); WHITE BLOOD COUNT 7.7 K/UL (4.8-10.8)
[2019-02-18 08:00] VITALS: BP 121/65
[2019-02-18 08:15] LABS: ANION GAP 10 mmol/L (5-15); BLOOD UREA NITROGEN 38 mg/dL (7-18); CALCIUM 8.7 MG/DL (8.5-10.1); CARBON DIOXIDE 26 MMOL/L (21-32); CHLORIDE 110 MMOL/L (98-107); CREATININE 1.6 MG/DL (0.55-1.30); POTASSIUM 3.7 MMOL/L (3.5-5.1); SODIUM 145 MMOL/L (136-145)
[2019-02-18] MEDS: Tamsulosin 0.4mg cap ORAL SCH ×2 (08:30→17:27)
[2019-02-18] MEDS: Docusate 100mg cap ORAL SCH ×2 (08:30→17:27)
[2019-02-18] MEDS: Depakote 500mg tab ORAL SCH ×2 (08:30→21:39)
[2019-02-18] MEDS: Heparin 5000 units/ml inj SUBQ SCH ×2 (08:36→21:39)
--- NOTE | 2019-02-18 10:10 | NUR ---
EXHIBITS COORDINATORTELEPHONE AD TAKER SI:ARF . FAILURE TO THRIVE S/P PEG INSERTION VS: BP 115/67, P 84, T 97.7, RR 20, SpO2 97 RBC 4.11, Hgb 12.9, Hct 38.7, BUN 38, Cr 1.6 IS:DEPAKOTE 500mg HEPARIN SUBQ FLOMAX 0.4mg ZOSYN 110ml IVPB D5 x1L IV MED/SURG STATUS
--- NOTE | 2019-02-18 10:55 | NUR ---
DISCHARGE SWALLOW/SPEECH THERAPY SUMMARY: PATIENT REFERRED FOR SWALLOW EVAL AND IS S/P PEG PLACEMENT FOR DYSPHAGIA AND POOR INTAKE. SCHEDULE CONFLICTS AND NOT ALERT. WILL BE D/C SOON. PLAN: D/C FROM SKILLED [facility] FOR NOW. F/UP WITH [facility] SWALLOW STUDY OUTPT WHEN READY TO FURTHER ASSESS SWALLOW AND DETERMINE SILENT ASP RIKS. F/UP WITH SNF [facility]ARD SUPERVISOR FOR DYSPHAGIA MANAGEMENT AND TX. D/W [facility] [employer]NAG[employer]
--- NOTE | 2019-02-18 11:25 | NUR ---
PT NOTE: Attempted to see patient for PT treatment. Patient unarousable due to sleep/lethargy. Patient unable to participate with skilled PT intervention at this time. Will re-attempt later today as schedule permits.
--- NOTE | 2019-02-18 11:38 | GI Progress Note ---
Assessment/Plan Problems: (1) Encounter for PEG (percutaneous endoscopic gastrostomy) ICD Codes: Z43.1 - Encounter for attention to gastrostomy SNOMED: 158931677, 110615723 (2) Hepatitis C ICD Codes: B19.20 - Unspecified viral hepatitis C without hepatic coma SNOMED: 09606346 (3) Failure to thrive syndrome, adult ICD Codes: R62.7 - Failure to thrive syndrome, adult SNOMED: 006701731 (4) Dementia with behavioral disturbance ICD Codes: F03.91 - Unspecified dementia with behavioral disturbance SNOMED: 3075922261723 (5) Ileus ICD Codes: K56.7 - Ileus, unspecified SNOMED: 161520011 Status: stable, unchanged Status Narrative Discussed with Dr. Samuel. Assessment/Plan Status post PEG G-tube feedings per dietitian Continue antibiotics GT site care daily and as needed Elevate head of bed at all times PRN transfusion PPI Reglan as needed for GI motility DC planning The patient was seen and examined at bedside and all new and available data was reviewed in the patients chart. I agree with the above findings, impression and plan. (Patient seen earlier today. Signature stamp does not reflect patient encounter time.). - Min Samuel MD Subjective Subjective Limited Objective Last 24 Hour Vital Signs Date Time Temp Pulse Resp B/P (MAP) Pulse Ox O2 Delivery O2 Flow Rate FiO2 02/18/19 09:00 Room Air 02/18/19 08:00 98.1 80 19 121/65 (83) 97 02/18/19 04:00 98.2 84 20 126/62 (83) 02/18/19 00:00 97.7 92 20 115/67 (83) 02/17/19 21:00 Room Air 02/17/19 20:00 97.3 68 18 105/67 (80) 02/17/19 17:00 73 18 98/67 (77) 97 02/17/19 16:00 97.5 81 18 80/57 (65) 97 02/17/19 12:00 96.8 73 12 97/56 (70) 99 Intake and Output 02/17/19 02/18/19 19:00 07:00 Intake Total 420 ml 2020 ml Output Total 400 ml 400 ml Balance 20 ml 1620 ml Intake Free Water 300 ml 300 ml IV Total 500 ml Tube Feeding 120 ml 420 ml Other 800 ml Output Urine Total 400 ml 400 ml # Voids 2 2 # Bowel Movements 1 1 Laboratory Tests Test 02/18/19 06:03 White Blood Count 7.7 K/UL (4.8-10.8) Red Blood Count 4.11 M/UL (4.70-6.10) L Hemoglobin 12.9 G/DL (14.2-18.0) L Hematocrit 38.7 % (42.0-52.0) L Mean Corpuscular Volume 94 FL (80-99) Mean Corpuscular Hemoglobin 31.3 PG (27.0-31.0) H Mean Corpuscular Hemoglobin Concent 33.2 G/DL (32.0-36.0) Red Cell Distribution Width 12.8 % (11.6-14.8) Platelet Count 193 K/UL (150-450) Mean Platelet Volume 7.4 FL (6.5-10.1) Neutrophils (%) (Auto) 49.9 % (45.0-75.0) Lymphocytes (%) (Auto) 34.8 % (20.0-45.0) Monocytes (%) (Auto) 13.0 % (1.0-10.0) H Eosinophils (%) (Auto) 2.1 % (0.0-3.0) Basophils (%) (Auto) 0.3 % (0.0-2.0) Sodium Level 145 MMOL/L (136-145) Potassium Level 3.7 MMOL/L (3.5-5.1) Chloride Level 110 MMOL/L (98-107) H Carbon Dioxide Level 26 MMOL/L (21-32) Anion Gap 10 mmol/L (5-15) Blood Urea Nitrogen 38 mg/dL (7-18) H Creatinine 1.6 MG/DL (0.55-1.30) H Estimat Glomerular Filtration Rate 52.2 mL/min (>60) Glucose Level 103 MG/DL (74-106) Calcium Level 8.7 MG/DL (8.5-10.1) Magnesium Level 1.8 MG/DL (1.8-2.4) Height (Feet): 5 Height (Inches): 6.00 Weight (Pounds): 109 General Appearance: WD/WN, no apparent distress, alert Cardiovascular: normal rate Respiratory/Chest: normal breath sounds, no respiratory distress Abdominal Exam: normal bowel sounds, non tender, soft Extremities: non-tender Daniel Zhu NP February 18, 2019 11:38
[2019-02-18 12:00] VITALS: BP 128/68
[2019-02-18] MEDS ORDERED: Zolpidem 5mg tab ORAL PRN (12:15)
--- NOTE | 2019-02-18 13:12 | Pulmonology Progress Note ---
Assessment/Plan Problems: (1) Acute encephalopathy (2) Sepsis (3) ATN (acute tubular necrosis) (4) Pyelonephritis (5) Prostate cancer (6) Cerebral vascular disease (7) Methadone maintenance therapy patient (8) HTN (hypertension) (9) Hepatitis C Assessment/Plan PEG in place, tolerating feeding bun/creatinine improving neuro consult appreciated more awake now iv fluids iv abx check cultures neuro f/u Subjective ROS Limited/Unobtainable: No Constitutional: Reports: no symptoms HEENT: Repors: no symptoms Respiratory: Reports: no symptoms Allergies: Uncoded Allergies: anesthetics unspecified (Allergy, Mild, 02/12/19) sulfonamides (Allergy, Mild, rash, 02/12/19) Objective Last 24 Hour Vital Signs Date Time Temp Pulse Resp B/P (MAP) Pulse Ox O2 Delivery O2 Flow Rate FiO2 02/18/19 12:00 98.3 77 18 128/68 (88) 97 02/18/19 09:00 Room Air 02/18/19 08:00 98.1 80 19 121/65 (83) 97 02/18/19 04:00 98.2 84 20 126/62 (83) 02/18/19 00:00 97.7 92 20 115/67 (83) 02/17/19 21:00 Room Air 02/17/19 20:00 97.3 68 18 105/67 (80) 02/17/19 17:00 73 18 98/67 (77) 97 02/17/19 16:00 97.5 81 18 80/57 (65) 97 Intake and Output 02/17/19 02/18/19 18:59 06:59 Intake Total 360 ml 2080 ml Output Total 400 ml 400 ml Balance -40 ml 1680 ml Intake Free Water 300 ml 300 ml IV Total 500 ml Tube Feeding 60 ml 480 ml Other 800 ml Output Urine Total 400 ml 400 ml # Voids 2 2 # Bowel Movements 1 1 Objective General Appearance: cachectic Lines, tubes and drains: peripheral HEENT: normocephalic, atraumatic Neck: non-tender, normal alignment Respiratory/Chest: chest wall non-tender, lungs clear Cardiovascular/Chest: normal peripheral pulses, normal rate Abdomen: normal bowel sounds Extremities: normal range of motion Laboratory Tests 02/18/19 06:03: White Blood Count 7.7, Red Blood Count 4.11L, Hemoglobin 12.9L, Hematocrit 38.7L , Mean Corpuscular Volume 94, Mean Corpuscular Hemoglobin 31.3H, Mean Corpuscular Hemoglobin Concent 33.2, Red Cell Distribution Width 12.8, Platelet Count 193, Mean Platelet Volume 7.4, Neutrophils (%) (Auto) 49.9, Lymphocytes (% ) (Auto) 34.8, Monocytes (%) (Auto) 13.0H, Eosinophils (%) (Auto) 2.1, Basophils (%) (Auto) 0.3, Sodium Level 145, Potassium Level 3.7, Chloride Level 110H, Carbon Dioxide Level 26, Anion Gap 10, Blood Urea Nitrogen 38H, Creatinine 1.6H, Estimat Glomerular Filtration Rate 52.2, Glucose Level 103, Calcium Level 8.7, Magnesium Level 1.8 Current Medications Medications (Trade) Dose Ordered Sig/Lucie Route PRN Reason Start Time Stop Time Status Last Admin Dose Admin Acetaminophen (Tylenol) 650 mg Q4H PRN ORAL Mild Pain/Temp > 100.5 02/12/19 08:15 03/14/19 08:14 02/14/19 00:45 Clonidine HCl (Catapres Tab) 0.1 mg Q4H PRN ORAL For High Blood Pressure 02/12/19 08:15 03/14/19 08:14 Dextrose 1,000 ml @ 50 mls/hr Q20H IV 02/16/19 16:00 03/14/19 15:59 02/18/19 08:45 Dextrose (Dextrose 50%) 25 ml Q30M PRN IV Hypoglycemia 02/12/19 08:15 03/14/19 08:14 Dextrose (Dextrose 50%) 50 ml Q30M PRN IV Hypoglycemia 02/12/19 08:15 03/14/19 08:14 Divalproex Sodium (Depakote) 500 mg EVERY 12 HOURS ORAL 02/12/19 09:00 03/14/19 08:59 02/18/19 08:30 Docusate Sodium (Colace) 100 mg TWICE A DAY ORAL 02/12/19 09:00 03/14/19 08:59 02/18/19 08:30 Haloperidol (Haldol) 5 mg Q6H PRN ORAL Agitation 02/12/19 08:30 03/14/19 08:29 02/12/19 16:20 Heparin Sodium (Porcine) (Heparin 5000 units/ml) 5,000 units EVERY 12 HOURS SUBQ 02/12/19 09:00 03/14/19 08:59 02/18/19 08:36 Lorazepam (Ativan 2mg/ml 1ml) 0.5 mg Q4H PRN IV For Anxiety 02/18/19 12:15 02/25/19 12:14 Morphine Sulfate (Morphine Sulfate) 1 mg Q4H PRN IVP For Pain 02/18/19 12:15 02/25/19 12:14 Olanzapine (ZyPREXA) 2.5 mg TID PRN ORAL agitation 02/13/19 11:00 03/14/19 13:59 Ondansetron HCl (Zofran) 4 mg Q6H PRN IVP Nausea & Vomiting 02/12/19 08:15 03/14/19 08:14 Piperacillin Sod/ Tazobactam Sod 3.375 gm/Sodium Chloride 110 ml @ 27.5 mls/hr EVERY 8 HOURS IVPB 02/14/19 14:00 02/19/19 13:59 02/18/19 05:49 Polyethylene Glycol (Miralax) 17 gm HSPRN PRN ORAL Constipation 02/12/19 08:15 03/14/19 08:14 Tamsulosin HCl (Flomax) 0.4 mg BID ORAL 02/12/19 18:00 03/14/19 17:59 02/18/19 08:30 Zolpidem Tartrate (Ambien) 5 mg HSPRN PRN ORAL Insomnia 02/18/19 12:15 02/25/19 12:14 German Mooney MD February 18, 2019 13:12
--- NOTE | 2019-02-18 13:55 | General Progress Note ---
Assessment/Plan Problem List: (1) UTI (urinary tract infection) ICD Codes: N39.0 - Urinary tract infection, site not specified SNOMED: 99215477 (2) CKD (chronic kidney disease) ICD Codes: N18.9 - CKD (chronic kidney disease) SNOMED: 557577261 (3) ARF (acute renal failure) ICD Codes: N17.9 - ARF (acute renal failure) SNOMED: 81057584 (4) Failure to thrive syndrome, adult ICD Codes: R62.7 - Failure to thrive syndrome, adult SNOMED: 964454854 (5) Hepatitis C ICD Codes: B19.20 - Unspecified viral hepatitis C without hepatic coma SNOMED: 24253668 (6) HTN (hypertension) ICD Codes: I10 - Essential (primary) hypertension SNOMED: 20446839 Status: stable, progressing Assessment/Plan: pt diet abx gi eval cbc bmp am dc plan snf Subjective Constitutional: Reports: weakness Allergies: Uncoded Allergies: anesthetics unspecified (Allergy, Mild, 02/12/19) sulfonamides (Allergy, Mild, rash, 02/12/19) All Systems: reviewed and negative except above Subjective o2nc sleepy calm Objective Last 24 Hour Vital Signs Date Time Temp Pulse Resp B/P (MAP) Pulse Ox O2 Delivery O2 Flow Rate FiO2 02/18/19 12:00 98.3 77 18 128/68 (88) 97 02/18/19 09:00 Room Air 02/18/19 08:00 98.1 80 19 121/65 (83) 97 02/18/19 04:00 98.2 84 20 126/62 (83) 02/18/19 00:00 97.7 92 20 115/67 (83) 02/17/19 21:00 Room Air 02/17/19 20:00 97.3 68 18 105/67 (80) 02/17/19 17:00 73 18 98/67 (77) 97 02/17/19 16:00 97.5 81 18 80/57 (65) 97 Intake and Output 02/17/19 02/18/19 19:00 07:00 Intake Total 420 ml 2020 ml Output Total 400 ml 400 ml Balance 20 ml 1620 ml Intake Free Water 300 ml 300 ml IV Total 500 ml Tube Feeding 120 ml 420 ml Other 800 ml Output Urine Total 400 ml 400 ml # Voids 2 2 # Bowel Movements 1 1 Laboratory Tests 02/18/19 06:03: White Blood Count 7.7, Red Blood Count 4.11L, Hemoglobin 12.9L, Hematocrit 38.7L , Mean Corpuscular Volume 94, Mean Corpuscular Hemoglobin 31.3H, Mean Corpuscular Hemoglobin Concent 33.2, Red Cell Distribution Width 12.8, Platelet Count 193, Mean Platelet Volume 7.4, Neutrophils (%) (Auto) 49.9, Lymphocytes (% ) (Auto) 34.8, Monocytes (%) (Auto) 13.0H, Eosinophils (%) (Auto) 2.1, Basophils (%) (Auto) 0.3, Sodium Level 145, Potassium Level 3.7, Chloride Level 110H, Carbon Dioxide Level 26, Anion Gap 10, Blood Urea Nitrogen 38H, Creatinine 1.6H, Estimat Glomerular Filtration Rate 52.2, Glucose Level 103, Calcium Level 8.7, Magnesium Level 1.8 Height (Feet): 5 Height (Inches): 6.00 Weight (Pounds): 109 General Appearance: lethargic EENT: normal ENT inspection Neck: normal alignment Cardiovascular: normal peripheral pulses, normal rate, regular rhythm Respiratory/Chest: chest wall non-tender, lungs clear, normal breath sounds Abdomen: normal bowel sounds, non tender, soft Edema: no edema noted Arm (L), no edema noted Arm (R), no edema noted Leg (L), no edema noted Leg (R), no edema noted Pedal (L), no edema noted Pedal (R), no edema noted Generalized Neurologic: motor weakness Skin: normal pigmentation, warm/dry Jaleel Moon DO February 18, 2019 13:55
--- NOTE | 2019-02-18 14:37 | NUR ---
RD ASSESSMENT & RECOMMENDATIONS SEE CARE ACTIVITY FOR COMPLETE ASSESSMENT DAILY ESTIMATED NEEDS: Needs based on ARF, UNDERWEIGHT/ 49kg 30-35 kcals/kg 5051-9396 total kcals 1-1.5 g protein/kg 49-74 g total protein 25-30 mL/kg 8685-4539 total fluid mLs NUTRITION DIAGNOSIS: * Increased kcal/prot needs R/T recent wt loss, underweight status as evidenced by possible significant wt loss of ~30lbs/ 21% in 8 months. pt @ 77% IBW w/ underweight BMI per guidelines, pt is now S/P PEG . * Altered nutrition related lab values R/T ARF, volume deficit as evidenced by elev BUN (92-> 45-> 38), elev creat (3.1-> 2.0-> 1.6), elev Na (155-> wnl). CURRENT TF:Vital @60ml ENTERAL NUTRITION RECOMMENDATIONS: Glucerna 1.2 @55ml/hr x24 hrs to provide 1320ml, 1584 kcal, 79g pro, 1063ml [id number] - REC TF CHANGE TO GLUCERNA 1.2, start @25ml/hr, advance as tolerated 10ml/hr q4-6 hrs to goal - Flush per MD, HOB over 30 degrees. ADDITIONAL RECOMMENDATIONS: 1) Lytes daily w/ TF 2) TF CHANGE PER ABOVE RECS 3) WOUND CARE: Rec MVI x 1 and Efrain 1ptk BID 4) S/p PEG Placement, please RE-calibrate bed scale to monitor efficacy of TF rate. + WEEKLY WEIGHTS 5) Hypoglycemics prn, niss for BG control w/ TF
--- NOTE | 2019-02-18 14:49 | NUR ---
*-* INSURANCE *-* UPDATED AVAILABLE CLINICALS AND REVIEWS HAVE BEEN FAXED TO: [employer] P- [phone] F- [phone]...REVIEW/CLINICAL
--- NOTE | 2019-02-18 15:46 | Nephrology Progress Note ---
Assessment/Plan Problem List: (1) ARF (acute renal failure) Assessment: cr lowering (2) CKD (chronic kidney disease) (3) Failure to thrive syndrome, adult (4) Hypernatremia Assessment Acute encephalopathy Psych history & Paranoia h/o Prostate cancer CKD (chronic kidney disease), superimposed ARF / Dehydration h/o Hepatitis C h/o Dementia Plan D5w Hydrate monitor renal parameters keep BP and BS in check per orders Subjective ROS Limited/Unobtainable: No Objective Objective Last 24 Hour Vital Signs Date Time Temp Pulse Resp B/P (MAP) Pulse Ox O2 Delivery O2 Flow Rate FiO2 02/18/19 12:00 98.3 77 18 128/68 (88) 97 02/18/19 09:00 Room Air 02/18/19 08:00 98.1 80 19 121/65 (83) 97 02/18/19 04:00 98.2 84 20 126/62 (83) 02/18/19 00:00 97.7 92 20 115/67 (83) 02/17/19 21:00 Room Air 02/17/19 20:00 97.3 68 18 105/67 (80) 02/17/19 17:00 73 18 98/67 (77) 97 02/17/19 16:00 97.5 81 18 80/57 (65) 97 Intake and Output 02/17/19 02/18/19 18:59 06:59 Intake Total 360 ml 2080 ml Output Total 400 ml 400 ml Balance -40 ml 1680 ml Intake Free Water 300 ml 300 ml IV Total 500 ml Tube Feeding 60 ml 480 ml Other 800 ml Output Urine Total 400 ml 400 ml # Voids 2 2 # Bowel Movements 1 1 Laboratory Tests 02/18/19 06:03: White Blood Count 7.7, Red Blood Count 4.11L, Hemoglobin 12.9L, Hematocrit 38.7L , Mean Corpuscular Volume 94, Mean Corpuscular Hemoglobin 31.3H, Mean Corpuscular Hemoglobin Concent 33.2, Red Cell Distribution Width 12.8, Platelet Count 193, Mean Platelet Volume 7.4, Neutrophils (%) (Auto) 49.9, Lymphocytes (% ) (Auto) 34.8, Monocytes (%) (Auto) 13.0H, Eosinophils (%) (Auto) 2.1, Basophils (%) (Auto) 0.3, Sodium Level 145, Potassium Level 3.7, Chloride Level 110H, Carbon Dioxide Level 26, Anion Gap 10, Blood Urea Nitrogen 38H, Creatinine 1.6H, Estimat Glomerular Filtration Rate 52.2, Glucose Level 103, Calcium Level 8.7, Magnesium Level 1.8 Height (Feet): 5 Height (Inches): 6.00 Weight (Pounds): 109 General Appearance: no apparent distress Neck: limited range of motion Cardiovascular: normal rate Respiratory/Chest: decreased breath sounds Abdomen: distended Objective no change Tanner Grant MD February 18, 2019 15:46
[2019-02-18 16:00] VITALS: BP 122/65
--- NOTE | 2019-02-18 17:08 | Cardiac Electrophysiology PN ---
Assessment/Plan Assessment/Plan 1. Hypotension, Resolved on IV antibiotic and fluids. Echo showed Nl EF. 2. History of dementia. Head CT is negative. 3. Renal failure and hypernatremia with sodium 154 with a BUN of 99, creatinine 3.4. It is likely due to dehydration. On IV fluids. Cr down to 2.0 4. Dehydration. 5. Negative troponin. 6. Dysphagia, S/P PEG by Dr Lizzie OBANDO RN Subjective Subjective No new events. Nonverbal in restraints. Objective Last 24 Hour Vital Signs Date Time Temp Pulse Resp B/P (MAP) Pulse Ox O2 Delivery O2 Flow Rate FiO2 02/18/19 12:00 98.3 77 18 128/68 (88) 97 02/18/19 09:00 Room Air 02/18/19 08:00 98.1 80 19 121/65 (83) 97 02/18/19 04:00 98.2 84 20 126/62 (83) 02/18/19 00:00 97.7 92 20 115/67 (83) 02/17/19 21:00 Room Air 02/17/19 20:00 97.3 68 18 105/67 (80) Intake and Output 02/17/19 02/18/19 18:59 06:59 Intake Total 360 ml 2080 ml Output Total 400 ml 400 ml Balance -40 ml 1680 ml Intake Free Water 300 ml 300 ml IV Total 500 ml Tube Feeding 60 ml 480 ml Other 800 ml Output Urine Total 400 ml 400 ml # Voids 2 2 # Bowel Movements 1 1 Laboratory Tests Test 02/18/19 06:03 White Blood Count 7.7 K/UL (4.8-10.8) Red Blood Count 4.11 M/UL (4.70-6.10) L Hemoglobin 12.9 G/DL (14.2-18.0) L Hematocrit 38.7 % (42.0-52.0) L Mean Corpuscular Volume 94 FL (80-99) Mean Corpuscular Hemoglobin 31.3 PG (27.0-31.0) H Mean Corpuscular Hemoglobin Concent 33.2 G/DL (32.0-36.0) Red Cell Distribution Width 12.8 % (11.6-14.8) Platelet Count 193 K/UL (150-450) Mean Platelet Volume 7.4 FL (6.5-10.1) Neutrophils (%) (Auto) 49.9 % (45.0-75.0) Lymphocytes (%) (Auto) 34.8 % (20.0-45.0) Monocytes (%) (Auto) 13.0 % (1.0-10.0) H Eosinophils (%) (Auto) 2.1 % (0.0-3.0) Basophils (%) (Auto) 0.3 % (0.0-2.0) Sodium Level 145 MMOL/L (136-145) Potassium Level 3.7 MMOL/L (3.5-5.1) Chloride Level 110 MMOL/L (98-107) H Carbon Dioxide Level 26 MMOL/L (21-32) Anion Gap 10 mmol/L (5-15) Blood Urea Nitrogen 38 mg/dL (7-18) H Creatinine 1.6 MG/DL (0.55-1.30) H Estimat Glomerular Filtration Rate 52.2 mL/min (>60) Glucose Level 103 MG/DL (74-106) Calcium Level 8.7 MG/DL (8.5-10.1) Magnesium Level 1.8 MG/DL (1.8-2.4) Objective HEAD AND NECK: No JVD. LUNGS: Coarse rhonchi. CARDIOVASCULAR: Regular S1 and S2 with no gallop or murmur. ABDOMEN: Soft.PEG in place EXTREMITIES: No pitting edema. Bryce Ba MD February 18, 2019 17:08
[2019-02-18] MEDS: Morphine Sulfate 2mg/ml Inj(IV/IM USE ONLY) IVP PRN ×2 (18:08→22:14)
--- NOTE | 2019-02-18 19:41 | NUR ---
HAND-OFF: Report given to ledy fernandes RN.
--- NOTE | 2019-02-18 19:42 | NUR ---
NURSE NOTES: Received patient in bed. A&OX0. NC 2L is on. IV site patent and intact. G-tube in place, running Glucerna 1.2, 25cc/hr, 0cc residual noted, flushed, elevated HOB. Restraint on bilateral wrist, radial pulse present, no bruising or skin tear noted. Bed in lowest position. Call light within reach. Will continue to monitor.
[2019-02-18 20:00] VITALS: BP 99/67
--- NOTE | 2019-02-18 22:17 | Psych Consult Progress Note ---
Psychiatry Progress Note Psychiatry Progress Note Subjective the pt recieved another 1.5mg of ativan today before the MRI as he was very agitated the pt is confused and was more cooperative after the ativan the pt cont to pw waxing and waning of consciousness. Medications Current Medications Medications (Trade) Dose Ordered Sig/Lucie Route PRN Reason Start Time Stop Time Status Last Admin Dose Admin Acetaminophen (Tylenol) 650 mg Q4H PRN ORAL Mild Pain/Temp > 100.5 02/12/19 08:15 03/14/19 08:14 02/14/19 00:45 Clonidine HCl (Catapres Tab) 0.1 mg Q4H PRN ORAL For High Blood Pressure 02/12/19 08:15 03/14/19 08:14 Dextrose 1,000 ml @ 50 mls/hr Q20H IV 02/16/19 16:00 03/14/19 15:59 02/18/19 08:45 Dextrose (Dextrose 50%) 25 ml Q30M PRN IV Hypoglycemia 02/12/19 08:15 03/14/19 08:14 Dextrose (Dextrose 50%) 50 ml Q30M PRN IV Hypoglycemia 02/12/19 08:15 03/14/19 08:14 Divalproex Sodium (Depakote) 500 mg EVERY 12 HOURS ORAL 02/12/19 09:00 03/14/19 08:59 02/18/19 21:39 Docusate Sodium (Colace) 100 mg TWICE A DAY ORAL 02/12/19 09:00 03/14/19 08:59 02/18/19 17:27 Haloperidol (Haldol) 5 mg Q6H PRN ORAL Agitation 02/12/19 08:30 03/14/19 08:29 02/12/19 16:20 Heparin Sodium (Porcine) (Heparin 5000 units/ml) 5,000 units EVERY 12 HOURS SUBQ 02/12/19 09:00 03/14/19 08:59 02/18/19 21:39 Lorazepam (Ativan 2mg/ml 1ml) 0.5 mg Q4H PRN IV For Anxiety 02/18/19 12:15 02/25/19 12:14 Morphine Sulfate (Morphine Sulfate) 1 mg Q4H PRN IVP For Pain 02/18/19 12:15 02/25/19 12:14 02/18/19 18:08 Olanzapine (ZyPREXA) 2.5 mg TID PRN ORAL agitation 02/13/19 11:00 03/14/19 13:59 Ondansetron HCl (Zofran) 4 mg Q6H PRN IVP Nausea & Vomiting 02/12/19 08:15 03/14/19 08:14 Piperacillin Sod/ Tazobactam Sod 3.375 gm/Sodium Chloride 110 ml @ 27.5 mls/hr EVERY 8 HOURS IVPB 02/14/19 14:00 02/20/19 23:59 02/18/19 21:39 Polyethylene Glycol (Miralax) 17 gm HSPRN PRN ORAL Constipation 02/12/19 08:15 03/14/19 08:14 Tamsulosin HCl (Flomax) 0.4 mg BID ORAL 02/12/19 18:00 03/14/19 17:59 02/18/19 17:27 Zolpidem Tartrate (Ambien) 5 mg HSPRN PRN ORAL Insomnia 02/18/19 12:15 02/25/19 12:14 Allergies: Uncoded Allergies: anesthetics unspecified (Allergy, Mild, 02/12/19) sulfonamides (Allergy, Mild, rash, 02/12/19) Objective Data Height (Feet): 5 Height (Inches): 6.00 Weight (Pounds): 109 General Appearance: alert, confused, agitated Appearance: disheveled Behavior Mannerisms: poor eye contact Mental Status Exam - Affect: blunted Mental Status Exam - Mood: agitated Mental Status Exam - Thought P: tangential, confusion, disorganized Mental Status Exam - Thought C: delusions (specify) Mental Status Exam - Suicidal: not present Assessment/Plan Problem List: (1) Dementia with behavioral disturbance ICD Codes: F03.91 - Unspecified dementia with behavioral disturbance SNOMED: 0343441682811 Status: stable Assessment/Plan: zyprexa prn haldol prn depakote the pt lacks capacity to make decisions Mckenna Bermudez MD February 18, 2019 22:17
--- NOTE | 2019-02-18 23:41 | Neurology Progress Note ---
Interim History Interim History ROS Limited/Unobtainable: Yes - patient poorly responsive. Complaints: AMS Events: Still poor exam, EEG completed Objective Physical Exam Last Vital Signs Date Time Temp Pulse Resp B/P (MAP) Pulse Ox O2 Delivery O2 Flow Rate FiO2 02/18/19 20:00 98.5 89 18 99/67 (78) 100 02/18/19 09:00 Room Air 02/15/19 10:45 3 Laboratory Tests Test 02/18/19 06:03 White Blood Count 7.7 K/UL (4.8-10.8) Red Blood Count 4.11 M/UL (4.70-6.10) L Hemoglobin 12.9 G/DL (14.2-18.0) L Hematocrit 38.7 % (42.0-52.0) L Mean Corpuscular Volume 94 FL (80-99) Mean Corpuscular Hemoglobin 31.3 PG (27.0-31.0) H Mean Corpuscular Hemoglobin Concent 33.2 G/DL (32.0-36.0) Red Cell Distribution Width 12.8 % (11.6-14.8) Platelet Count 193 K/UL (150-450) Mean Platelet Volume 7.4 FL (6.5-10.1) Neutrophils (%) (Auto) 49.9 % (45.0-75.0) Lymphocytes (%) (Auto) 34.8 % (20.0-45.0) Monocytes (%) (Auto) 13.0 % (1.0-10.0) H Eosinophils (%) (Auto) 2.1 % (0.0-3.0) Basophils (%) (Auto) 0.3 % (0.0-2.0) Sodium Level 145 MMOL/L (136-145) Potassium Level 3.7 MMOL/L (3.5-5.1) Chloride Level 110 MMOL/L (98-107) H Carbon Dioxide Level 26 MMOL/L (21-32) Anion Gap 10 mmol/L (5-15) Blood Urea Nitrogen 38 mg/dL (7-18) H Creatinine 1.6 MG/DL (0.55-1.30) H Estimat Glomerular Filtration Rate 52.2 mL/min (>60) Glucose Level 103 MG/DL (74-106) Calcium Level 8.7 MG/DL (8.5-10.1) Magnesium Level 1.8 MG/DL (1.8-2.4) General: other Head: normocophalic, other Neck: no rigidity EENT: benign Neurologic Exam Mental Status: awake Speech: other Language: other Cranial Nerves III, IV, : PERRLA, EOMI Cranial Nerve VII: no facial asymmetry Cranial Nerve XI: SCM symmetric Cranial Nerve XII: tongue midline Motor System: strength 5/5 Sensory: normal pinprick, normal light touch Objective Exam remains non focal and abnormal - patient continues to be able to move all extremities with equal strength to command or localizing in response to noxious stimuli. However, not verbalizing normally, not tracking with eyes, PUPILS UNEQUAL today - previously normal - likely metabolic cause. Impression/Recommendations Problems: (1) Dementia with behavioral disturbance Assessment & Plan: Exam still lethargic -- EEG ordered for repeat (2) UTI (urinary tract infection) Assessment & Plan: Abx as per ID (3) Acute encephalopathy Assessment & Plan: EEG repeated today (4) Failure to thrive syndrome, adult Assessment & Plan: S/P PEG insertion today For TUBE feeding as per GI team. Status: stable Recommendations Maintain normothermia Abx as per ID Na 135-145 Avoid use of benzodiazapenes, anticholinergics, and opioid narcotics. May utilize Seroquel 25mg QD/ QHS for behavioral agitation. Await EEG report from today. Consider Hypoactive Lydia Barbosa N.P. February 18, 2019 23:41
[2019-02-19] VITALS: BP 108/56
[2019-02-19] MEDS: Morphine Sulfate 2mg/ml Inj(IV/IM USE ONLY) IVP PRN ×2 (02:26→20:01)
--- NOTE | 2019-02-19 03:15 | Electroencephalogram ---
DATE OF PROCEDURE: 02/17/2019 REQUESTING PHYSICIANS: Robin Wright M.D. & Jaleel Moon D.O. READING PHYSICIAN: Munir Caceres M.D. PROCEDURE PERFORMED: Electroencephalogram. HISTORY: This EEG was performed on a 68-year-old gentleman with a history of an altered mental state. The purpose of this EEG was to evaluate the patient for the degree and type of cerebral dysfunction. TECHNICAL NOTE: This EEG was performed on a [employer] acquisition Unit with electrodes placed on the scalp according to the International 10-20 system. [id number] and [id number] montages were used. The EEG was technically satisfactory and was performed while the patient was in a poorly responsive state. OBSERVATIONS: In the poorly responsive state, the background activity consisted of a mixed frequency background predominantly in the 4-5 Hz theta range with intermixed 1.5-2 Hz delta activity. In addition, superimposed faster frequencies were also noted. 12 Hz sleep spindles, which were frontocentral in location were seen from time to time. No definite focal abnormalities or epileptiform discharges were seen. IMPRESSION: This is an abnormal EEG characterized by: 1. Slowing of the background in the 4-5 Hz theta and 1.5-2 Hz delta range. 2. The presence of slow sleep spindles seen in the frontocentral region. COMMENT: This study is consistent with an encephalopathy of a moderately severe degree. Clinical correlation is recommended. Munir Caceres M.D., M.S.P.H. DR: GARDENIA JOB#: [id number]
[2019-02-19 04:00] VITALS: BP 143/80
[2019-02-19] MEDS: Piperacillin/Tazobactam 3.375 GM in NS 110 ML IVPB SCH ×3 (06:16→21:33)
[2019-02-19 07:25] LABS: BASOPHILS % (AUTO) 0.9 % (0.0-2.0); EOSINOPHILS % (AUTO) 1.7 % (0.0-3.0); HEMOGLOBIN 12.6 G/DL (14.2-18.0); LYMPHOCYTES % (AUTO) 42.3 % (20.0-45.0); MEAN CORPUSCULAR VOLUME 95 FL (80-99); MONOCYTES % (AUTO) 11.8 % (1.0-10.0); NEUTROPHILS % (AUTO) 43.3 % (45.0-75.0); PLATELET COUNT 206 K/UL (150-450); RED BLOOD COUNT 4.02 M/UL (4.70-6.10); RED CELL DISTRIBUTION WIDTH 12.8 % (11.6-14.8); WHITE BLOOD COUNT 6.9 K/UL (4.8-10.8)
[2019-02-19 07:29] LABS: ANION GAP 9 mmol/L (5-15); BLOOD UREA NITROGEN 38 mg/dL (7-18); CALCIUM 8.7 MG/DL (8.5-10.1); CARBON DIOXIDE 26 MMOL/L (21-32); CHLORIDE 109 MMOL/L (98-107); CREATININE 1.6 MG/DL (0.55-1.30); POTASSIUM 4.2 MMOL/L (3.5-5.1); SODIUM 144 MMOL/L (136-145)
--- NOTE | 2019-02-19 07:30 | NUR ---
HAND-OFF: Report given to Damon CARMEN.
--- NOTE | 2019-02-19 07:40 | NUR ---
NURSE NOTES: Received patient on bed, asleep. Family at bedside. IV site intact and patent. Bilateral soft wrist restraints in place. Peripheral pulses and temperature normal in extremities. Capillary refill less than three seconds. Gtube in place and intact and patent. Dressings dry and intact. No signs of respiratory distress or pain. Room board updated, will continue to monitor.
[2019-02-19 08:00] VITALS: BP 119/73
--- NOTE | 2019-02-19 08:23 | NUR ---
PATROL [employer] SI:ARF . FAILURE TO THRIVE S/P PEG INSERTION VS: BP 97/73, P 83, T 97.2, RR 17, SpO2 96 RBC 4.02, Hgb 12.6, Hct 38.0, BUN 38, Cr 1.6 IS: HEPARIN SUBQ FLOMAX 0.4mg ZOSYN 110ml IVPB D5 x1L IV DEPAKENE 500mg MED/SURG STATUS
--- NOTE | 2019-02-19 09:13 | General Progress Note ---
Assessment/Plan Problem List: (1) UTI (urinary tract infection) ICD Codes: N39.0 - Urinary tract infection, site not specified SNOMED: 53124082 (2) CKD (chronic kidney disease) ICD Codes: N18.9 - CKD (chronic kidney disease) SNOMED: 075126671 (3) ARF (acute renal failure) ICD Codes: N17.9 - ARF (acute renal failure) SNOMED: 16213533 (4) Failure to thrive syndrome, adult ICD Codes: R62.7 - Failure to thrive syndrome, adult SNOMED: 282501978 (5) Hepatitis C ICD Codes: B19.20 - Unspecified viral hepatitis C without hepatic coma SNOMED: 11740579 (6) HTN (hypertension) ICD Codes: I10 - Essential (primary) hypertension SNOMED: 51392864 Status: stable, progressing Assessment/Plan: pt diet abx gi eval cbc bmp am dc plan snf Subjective Constitutional: Reports: weakness Allergies: Uncoded Allergies: anesthetics unspecified (Allergy, Mild, 02/12/19) sulfonamides (Allergy, Mild, rash, 02/12/19) All Systems: reviewed and negative except above Subjective o2nc sleepy calm Objective Last 24 Hour Vital Signs Date Time Temp Pulse Resp B/P (MAP) Pulse Ox O2 Delivery O2 Flow Rate FiO2 02/19/19 08:00 98.0 66 18 119/73 (88) 95 02/19/19 04:00 98.0 86 16 143/80 (101) 100 02/19/19 00:00 98.1 87 18 108/56 (73) 95 02/18/19 21:00 Room Air 02/18/19 20:00 98.5 89 18 99/67 (78) 100 02/18/19 16:00 98.1 72 18 122/65 (84) 98 02/18/19 12:00 98.3 77 18 128/68 (88) 97 Intake and Output 02/18/19 02/19/19 19:00 07:00 Intake Total 1115.0 ml 1200.0 ml Output Total 600 ml 400 ml Balance 515.0 ml 800.0 ml Intake Free Water 150 ml 300 ml IV Total 360.0 ml 460.0 ml Tube Feeding 605 ml 440 ml Output Urine Total 600 ml 400 ml Laboratory Tests 02/19/19 06:47: White Blood Count 6.9, Red Blood Count 4.02L, Hemoglobin 12.6L, Hematocrit 38.0L , Mean Corpuscular Volume 95, Mean Corpuscular Hemoglobin 31.3H, Mean Corpuscular Hemoglobin Concent 33.1, Red Cell Distribution Width 12.8, Platelet Count 206, Mean Platelet Volume 6.3L, Neutrophils (%) (Auto) 43.3L, Lymphocytes (%) (Auto) 42.3, Monocytes (%) (Auto) 11.8H, Eosinophils (%) (Auto) 1.7, Basophils (%) (Auto) 0.9, Sodium Level 144, Potassium Level 4.2, Chloride Level 109H, Carbon Dioxide Level 26, Anion Gap 9, Blood Urea Nitrogen 38H, Creatinine 1.6H, Estimat Glomerular Filtration Rate 52.2, Glucose Level 118H, Calcium Level 8.7 Height (Feet): 5 Height (Inches): 6.00 Weight (Pounds): 109 General Appearance: lethargic EENT: normal ENT inspection Neck: normal alignment Cardiovascular: normal peripheral pulses, normal rate, regular rhythm Respiratory/Chest: chest wall non-tender, lungs clear, normal breath sounds Abdomen: normal bowel sounds, non tender, soft Extremities: normal inspection Edema: no edema noted Arm (L), no edema noted Arm (R), no edema noted Leg (L), no edema noted Leg (R), no edema noted Pedal (L), no edema noted Pedal (R), no edema noted Generalized Jaleel Moon DO February 19, 2019 09:13
[2019-02-19] MEDS: Docusate 100mg/10ml Liq GT SCH ×2 (09:55→17:56)
[2019-02-19] MEDS: Tamsulosin 0.4mg cap ORAL SCH ×2 (09:55→17:56)
[2019-02-19] MEDS: Heparin 5000 units/ml inj SUBQ SCH ×2 (09:56→21:32)
--- NOTE | 2019-02-19 10:38 | GI Progress Note ---
Assessment/Plan Problems: (1) Encounter for PEG (percutaneous endoscopic gastrostomy) ICD Codes: Z43.1 - Encounter for attention to gastrostomy SNOMED: 173872826, 995258215 (2) Hepatitis C ICD Codes: B19.20 - Unspecified viral hepatitis C without hepatic coma SNOMED: 45783118 (3) Failure to thrive syndrome, adult ICD Codes: R62.7 - Failure to thrive syndrome, adult SNOMED: 009140201 (4) Dementia with behavioral disturbance ICD Codes: F03.91 - Unspecified dementia with behavioral disturbance SNOMED: 3208573917316 (5) Ileus ICD Codes: K56.7 - Ileus, unspecified SNOMED: 302921119 Status: stable Status Narrative Discussed with Dr. Samuel. Assessment/Plan Status post PEG G-tube feedings per dietitian Continue antibiotics GT site care daily and as needed Elevate head of bed at all times PRN transfusion PPI Reglan as needed for GI motility DC planning The patient was seen and examined at bedside and all new and available data was reviewed in the patients chart. I agree with the above findings, impression and plan. (Patient seen earlier today. Signature stamp does not reflect patient encounter time.). - Min Samuel MD Subjective Subjective Limited Objective Last 24 Hour Vital Signs Date Time Temp Pulse Resp B/P (MAP) Pulse Ox O2 Delivery O2 Flow Rate FiO2 02/19/19 09:00 Room Air 02/19/19 08:00 98.0 66 18 119/73 (88) 95 02/19/19 04:00 98.0 86 16 143/80 (101) 100 02/19/19 00:00 98.1 87 18 108/56 (73) 95 02/18/19 21:00 Room Air 02/18/19 20:00 98.5 89 18 99/67 (78) 100 02/18/19 16:00 98.1 72 18 122/65 (84) 98 02/18/19 12:00 98.3 77 18 128/68 (88) 97 Intake and Output 02/18/19 02/19/19 19:00 07:00 Intake Total 1115.0 ml 1200.0 ml Output Total 600 ml 400 ml Balance 515.0 ml 800.0 ml Intake Free Water 150 ml 300 ml IV Total 360.0 ml 460.0 ml Tube Feeding 605 ml 440 ml Output Urine Total 600 ml 400 ml Laboratory Tests Test 02/19/19 06:47 White Blood Count 6.9 K/UL (4.8-10.8) Red Blood Count 4.02 M/UL (4.70-6.10) L Hemoglobin 12.6 G/DL (14.2-18.0) L Hematocrit 38.0 % (42.0-52.0) L Mean Corpuscular Volume 95 FL (80-99) Mean Corpuscular Hemoglobin 31.3 PG (27.0-31.0) H Mean Corpuscular Hemoglobin Concent 33.1 G/DL (32.0-36.0) Red Cell Distribution Width 12.8 % (11.6-14.8) Platelet Count 206 K/UL (150-450) Mean Platelet Volume 6.3 FL (6.5-10.1) L Neutrophils (%) (Auto) 43.3 % (45.0-75.0) L Lymphocytes (%) (Auto) 42.3 % (20.0-45.0) Monocytes (%) (Auto) 11.8 % (1.0-10.0) H Eosinophils (%) (Auto) 1.7 % (0.0-3.0) Basophils (%) (Auto) 0.9 % (0.0-2.0) Sodium Level 144 MMOL/L (136-145) Potassium Level 4.2 MMOL/L (3.5-5.1) Chloride Level 109 MMOL/L (98-107) H Carbon Dioxide Level 26 MMOL/L (21-32) Anion Gap 9 mmol/L (5-15) Blood Urea Nitrogen 38 mg/dL (7-18) H Creatinine 1.6 MG/DL (0.55-1.30) H Estimat Glomerular Filtration Rate 52.2 mL/min (>60) Glucose Level 118 MG/DL (74-106) H Calcium Level 8.7 MG/DL (8.5-10.1) Height (Feet): 5 Height (Inches): 6.00 Weight (Pounds): 109 General Appearance: WD/WN, no apparent distress, alert Cardiovascular: normal rate Respiratory/Chest: normal breath sounds, no respiratory distress Abdominal Exam: normal bowel sounds, non tender, soft, GT site - c/d/i Extremities: non-tender Daniel Zhu NP February 19, 2019 10:38
[2019-02-19] MEDS ORDERED: Valproic Acid 250mg/5ml Liquid GT SCH (11:00)
[2019-02-19 12:00] VITALS: BP 112/77
--- NOTE | 2019-02-19 12:05 | NUR ---
*-* INSURANCE *-* UPDATED CLINICALS HAVE BEEN FAXED TO: [employer] P- [id number] [phone] [phone]...REVIEW/CLINICAL
--- NOTE | 2019-02-19 13:09 | Cardiac Electrophysiology PN ---
Assessment/Plan Assessment/Plan 1. Hypotension, Resolved on IV antibiotic and fluids. Echo showed Nl EF. 2. History of dementia. Head CT is negative. 3. Renal failure and hypernatremia with sodium 154 with a BUN of 99, creatinine 3.4. It is likely due to dehydration. On IV fluids. Cr down to 2.0 4. Dehydration. 5. Negative troponin. 6. Dysphagia, S/P PEG by Dr Lizzie OBANDO RN Subjective Subjective No new events. Objective Last 24 Hour Vital Signs Date Time Temp Pulse Resp B/P (MAP) Pulse Ox O2 Delivery O2 Flow Rate FiO2 02/19/19 12:00 97.3 82 18 112/77 (89) 98 02/19/19 09:00 Room Air 02/19/19 08:00 98.0 66 18 119/73 (88) 95 02/19/19 04:00 98.0 86 16 143/80 (101) 100 02/19/19 00:00 98.1 87 18 108/56 (73) 95 02/18/19 21:00 Room Air 02/18/19 20:00 98.5 89 18 99/67 (78) 100 02/18/19 16:00 98.1 72 18 122/65 (84) 98 Intake and Output 02/18/19 02/19/19 19:00 07:00 Intake Total 1115.0 ml 1200.0 ml Output Total 600 ml 400 ml Balance 515.0 ml 800.0 ml Intake Free Water 150 ml 300 ml IV Total 360.0 ml 460.0 ml Tube Feeding 605 ml 440 ml Output Urine Total 600 ml 400 ml Laboratory Tests Test 02/19/19 06:47 White Blood Count 6.9 K/UL (4.8-10.8) Red Blood Count 4.02 M/UL (4.70-6.10) L Hemoglobin 12.6 G/DL (14.2-18.0) L Hematocrit 38.0 % (42.0-52.0) L Mean Corpuscular Volume 95 FL (80-99) Mean Corpuscular Hemoglobin 31.3 PG (27.0-31.0) H Mean Corpuscular Hemoglobin Concent 33.1 G/DL (32.0-36.0) Red Cell Distribution Width 12.8 % (11.6-14.8) Platelet Count 206 K/UL (150-450) Mean Platelet Volume 6.3 FL (6.5-10.1) L Neutrophils (%) (Auto) 43.3 % (45.0-75.0) L Lymphocytes (%) (Auto) 42.3 % (20.0-45.0) Monocytes (%) (Auto) 11.8 % (1.0-10.0) H Eosinophils (%) (Auto) 1.7 % (0.0-3.0) Basophils (%) (Auto) 0.9 % (0.0-2.0) Sodium Level 144 MMOL/L (136-145) Potassium Level 4.2 MMOL/L (3.5-5.1) Chloride Level 109 MMOL/L (98-107) H Carbon Dioxide Level 26 MMOL/L (21-32) Anion Gap 9 mmol/L (5-15) Blood Urea Nitrogen 38 mg/dL (7-18) H Creatinine 1.6 MG/DL (0.55-1.30) H Estimat Glomerular Filtration Rate 52.2 mL/min (>60) Glucose Level 118 MG/DL (74-106) H Calcium Level 8.7 MG/DL (8.5-10.1) Objective HEAD AND NECK: No JVD. LUNGS: Coarse rhonchi. CARDIOVASCULAR: Regular S1 and S2 with no gallop or murmur. ABDOMEN: Soft.PEG in place EXTREMITIES: No pitting edema. Bryce Ba MD February 19, 2019 13:09
--- NOTE | 2019-02-19 13:30 | Pulmonology Progress Note ---
Assessment/Plan Problems: (1) Acute encephalopathy (2) Sepsis (3) ATN (acute tubular necrosis) (4) Pyelonephritis (5) Prostate cancer (6) Cerebral vascular disease (7) Methadone maintenance therapy patient (8) HTN (hypertension) (9) Hepatitis C Assessment/Plan all reviewed PEG in place, tolerating feeding bun/creatinine improving neuro consult appreciated more awake now iv fluids check cultures neuro f/u Subjective ROS Limited/Unobtainable: No Constitutional: Reports: no symptoms HEENT: Repors: no symptoms Respiratory: Reports: no symptoms Allergies: Uncoded Allergies: anesthetics unspecified (Allergy, Mild, 02/12/19) sulfonamides (Allergy, Mild, rash, 02/12/19) Objective Last 24 Hour Vital Signs Date Time Temp Pulse Resp B/P (MAP) Pulse Ox O2 Delivery O2 Flow Rate FiO2 02/19/19 12:00 97.3 82 18 112/77 (89) 98 02/19/19 09:00 Room Air 02/19/19 08:00 98.0 66 18 119/73 (88) 95 02/19/19 04:00 98.0 86 16 143/80 (101) 100 02/19/19 00:00 98.1 87 18 108/56 (73) 95 02/18/19 21:00 Room Air 02/18/19 20:00 98.5 89 18 99/67 (78) 100 02/18/19 16:00 98.1 72 18 122/65 (84) 98 Intake and Output 02/18/19 02/19/19 19:00 07:00 Intake Total 1115.0 ml 1200.0 ml Output Total 600 ml 400 ml Balance 515.0 ml 800.0 ml Intake Free Water 150 ml 300 ml IV Total 360.0 ml 460.0 ml Tube Feeding 605 ml 440 ml Output Urine Total 600 ml 400 ml Objective General Appearance: cachectic Lines, tubes and drains: peripheral HEENT: normocephalic, atraumatic Neck: non-tender, normal alignment Respiratory/Chest: chest wall non-tender, lungs clear Cardiovascular/Chest: normal peripheral pulses, normal rate Abdomen: normal bowel sounds Extremities: normal range of motion Laboratory Tests 02/19/19 06:47: White Blood Count 6.9, Red Blood Count 4.02L, Hemoglobin 12.6L, Hematocrit 38.0L , Mean Corpuscular Volume 95, Mean Corpuscular Hemoglobin 31.3H, Mean Corpuscular Hemoglobin Concent 33.1, Red Cell Distribution Width 12.8, Platelet Count 206, Mean Platelet Volume 6.3L, Neutrophils (%) (Auto) 43.3L, Lymphocytes (%) (Auto) 42.3, Monocytes (%) (Auto) 11.8H, Eosinophils (%) (Auto) 1.7, Basophils (%) (Auto) 0.9, Sodium Level 144, Potassium Level 4.2, Chloride Level 109H, Carbon Dioxide Level 26, Anion Gap 9, Blood Urea Nitrogen 38H, Creatinine 1.6H, Estimat Glomerular Filtration Rate 52.2, Glucose Level 118H, Calcium Level 8.7 Current Medications Medications (Trade) Dose Ordered Sig/Lucie Route PRN Reason Start Time Stop Time Status Last Admin Dose Admin Acetaminophen (Tylenol) 650 mg Q4H PRN ORAL Mild Pain/Temp > 100.5 02/12/19 08:15 03/14/19 08:14 02/14/19 00:45 Clonidine HCl (Catapres Tab) 0.1 mg Q4H PRN ORAL For High Blood Pressure 02/12/19 08:15 03/14/19 08:14 Dextrose 1,000 ml @ 50 mls/hr Q20H IV 02/16/19 16:00 03/14/19 15:59 02/19/19 06:16 Dextrose (Dextrose 50%) 25 ml Q30M PRN IV Hypoglycemia 02/12/19 08:15 03/14/19 08:14 Dextrose (Dextrose 50%) 50 ml Q30M PRN IV Hypoglycemia 02/12/19 08:15 03/14/19 08:14 Docusate Sodium (Colace) 100 mg TWICE A DAY GT 02/19/19 10:00 03/14/19 08:59 02/19/19 09:55 Haloperidol (Haldol) 5 mg Q6H PRN ORAL Agitation 02/12/19 08:30 03/14/19 08:29 02/12/19 16:20 Heparin Sodium (Porcine) (Heparin 5000 units/ml) 5,000 units EVERY 12 HOURS SUBQ 02/12/19 09:00 03/14/19 08:59 02/19/19 09:56 Lorazepam (Ativan 2mg/ml 1ml) 0.5 mg Q4H PRN IV For Anxiety 02/18/19 12:15 02/25/19 12:14 Morphine Sulfate (Morphine Sulfate) 1 mg Q4H PRN IVP For Pain 02/18/19 12:15 02/25/19 12:14 02/19/19 02:26 Olanzapine (ZyPREXA) 2.5 mg TID PRN ORAL agitation 02/13/19 11:00 03/14/19 13:59 Ondansetron HCl (Zofran) 4 mg Q6H PRN IVP Nausea & Vomiting 02/12/19 08:15 03/14/19 08:14 Piperacillin Sod/ Tazobactam Sod 3.375 gm/Sodium Chloride 110 ml @ 27.5 mls/hr EVERY 8 HOURS IVPB 02/14/19 14:00 02/20/19 23:59 02/19/19 06:16 Polyethylene Glycol (Miralax) 17 gm HSPRN PRN ORAL Constipation 02/12/19 08:15 03/14/19 08:14 Tamsulosin HCl (Flomax) 0.4 mg BID ORAL 02/12/19 18:00 03/14/19 17:59 02/19/19 09:55 Valproic Acid (Depakene) 500 mg Q12HR GT 02/19/19 21:00 03/21/19 20:59 Zolpidem Tartrate (Ambien) 5 mg HSPRN PRN ORAL Insomnia 02/18/19 12:15 02/25/19 12:14 German Mooney MD February 19, 2019 13:30
[2019-02-19 16:00] VITALS: BP 114/76
--- NOTE | 2019-02-19 17:35 | Nephrology Progress Note ---
Assessment/Plan Problem List: (1) ARF (acute renal failure) Assessment: cr lowering (2) CKD (chronic kidney disease) (3) Failure to thrive syndrome, adult (4) Hypernatremia Assessment Acute encephalopathy Psych history & Paranoia h/o Prostate cancer CKD (chronic kidney disease), superimposed ARF / Dehydration h/o Hepatitis C h/o Dementia Plan D5w Hydrate monitor renal parameters keep BP and BS in check per orders Subjective ROS Limited/Unobtainable: No Constitutional: Reports: malaise Objective Objective Last 24 Hour Vital Signs Date Time Temp Pulse Resp B/P (MAP) Pulse Ox O2 Delivery O2 Flow Rate FiO2 02/19/19 16:00 98.2 79 20 114/76 (89) 98 02/19/19 12:00 97.3 82 18 112/77 (89) 98 02/19/19 09:00 Room Air 02/19/19 08:00 98.0 66 18 119/73 (88) 95 02/19/19 04:00 98.0 86 16 143/80 (101) 100 02/19/19 00:00 98.1 87 18 108/56 (73) 95 02/18/19 21:00 Room Air 02/18/19 20:00 98.5 89 18 99/67 (78) 100 Intake and Output 02/18/19 02/19/19 18:59 06:59 Intake Total 1090.0 ml 1180.0 ml Output Total 600 ml 400 ml Balance 490.0 ml 780.0 ml Intake Free Water 150 ml 300 ml IV Total 360.0 ml 460.0 ml Tube Feeding 580 ml 420 ml Output Urine Total 600 ml 400 ml Laboratory Tests 02/19/19 06:47: White Blood Count 6.9, Red Blood Count 4.02L, Hemoglobin 12.6L, Hematocrit 38.0L , Mean Corpuscular Volume 95, Mean Corpuscular Hemoglobin 31.3H, Mean Corpuscular Hemoglobin Concent 33.1, Red Cell Distribution Width 12.8, Platelet Count 206, Mean Platelet Volume 6.3L, Neutrophils (%) (Auto) 43.3L, Lymphocytes (%) (Auto) 42.3, Monocytes (%) (Auto) 11.8H, Eosinophils (%) (Auto) 1.7, Basophils (%) (Auto) 0.9, Sodium Level 144, Potassium Level 4.2, Chloride Level 109H, Carbon Dioxide Level 26, Anion Gap 9, Blood Urea Nitrogen 38H, Creatinine 1.6H, Estimat Glomerular Filtration Rate 52.2, Glucose Level 118H, Calcium Level 8.7 Height (Feet): 5 Height (Inches): 6.00 Weight (Pounds): 109 General Appearance: no apparent distress Objective no change Tanner Grant MD February 19, 2019 17:35
--- NOTE | 2019-02-19 17:38 | NUR ---
PT NOTE: Unable to engage pt in PT treatment session. Notified nurse of pt status. Nurse call light within easy reach. Will attempt PT treatment at a later time.
--- NOTE | 2019-02-19 19:20 | NUR ---
HAND-OFF: Report given to KERMIT Wilson.
--- NOTE | 2019-02-19 19:30 | NUR ---
NURSE NOTES: Received patient in bed. A&OX0. NC 2L is on. IV site patent and intact. G-tube in place, running Glucerna 1.2, 55cc/hr, 0cc residual noted, flushed, elevated HOB. Restraint on bilateral wrist, radial pulse present, no bruising or skin tear noted. Bed in lowest position. Call light within reach. Will continue to monitor.
[2019-02-19 20:00] VITALS: BP 106/70
[2019-02-19] MEDS: LORazepam Inj 2mg/ml 1ml IV PRN (21:31)
[2019-02-19] MEDS: Valproic Acid 250mg/5ml Liquid GT SCH (21:31)
--- NOTE | 2019-02-19 22:07 | Neurology Progress Note ---
Interim History Interim History ROS Limited/Unobtainable: Yes Complaints: AMS Events: EEG done yesterday- poor exam persists Review of Systems All Systems: reviewed and negative except above Objective Physical Exam Last Vital Signs Date Time Temp Pulse Resp B/P (MAP) Pulse Ox O2 Delivery O2 Flow Rate FiO2 02/19/19 20:00 98.7 81 19 106/70 (82) 99 02/19/19 09:00 Room Air 02/15/19 10:45 3 Laboratory Tests Test 02/19/19 06:47 White Blood Count 6.9 K/UL (4.8-10.8) Red Blood Count 4.02 M/UL (4.70-6.10) L Hemoglobin 12.6 G/DL (14.2-18.0) L Hematocrit 38.0 % (42.0-52.0) L Mean Corpuscular Volume 95 FL (80-99) Mean Corpuscular Hemoglobin 31.3 PG (27.0-31.0) H Mean Corpuscular Hemoglobin Concent 33.1 G/DL (32.0-36.0) Red Cell Distribution Width 12.8 % (11.6-14.8) Platelet Count 206 K/UL (150-450) Mean Platelet Volume 6.3 FL (6.5-10.1) L Neutrophils (%) (Auto) 43.3 % (45.0-75.0) L Lymphocytes (%) (Auto) 42.3 % (20.0-45.0) Monocytes (%) (Auto) 11.8 % (1.0-10.0) H Eosinophils (%) (Auto) 1.7 % (0.0-3.0) Basophils (%) (Auto) 0.9 % (0.0-2.0) Sodium Level 144 MMOL/L (136-145) Potassium Level 4.2 MMOL/L (3.5-5.1) Chloride Level 109 MMOL/L (98-107) H Carbon Dioxide Level 26 MMOL/L (21-32) Anion Gap 9 mmol/L (5-15) Blood Urea Nitrogen 38 mg/dL (7-18) H Creatinine 1.6 MG/DL (0.55-1.30) H Estimat Glomerular Filtration Rate 52.2 mL/min (>60) Glucose Level 118 MG/DL (74-106) H Calcium Level 8.7 MG/DL (8.5-10.1) General: other Head: normocophalic, other Neck: no rigidity EENT: benign Neurologic Exam Mental Status: awake Speech: other Language: other Cranial Nerves III, IV, : PERRLA, EOMI Cranial Nerve VII: no facial asymmetry Cranial Nerve XI: SCM symmetric Cranial Nerve XII: tongue midline Motor System: strength 5/5 Sensory: normal pinprick, normal light touch Objective Exam remains non focal and abnormal - patient continues to be able to move all extremities with equal strength to command or localizing in response to noxious stimuli. However, not verbalizing normally, not tracking with eyes, PUPILS UNEQUAL today - previously normal - likely metabolic cause. Impression/Recommendations Problems: (1) Dementia with behavioral disturbance Assessment & Plan: Exam more lethargic -possible secondary to procedure today. Will follow. (2) UTI (urinary tract infection) Assessment & Plan: Abx as per ID (3) Acute encephalopathy Assessment & Plan: EEG 02/18/19 This is an abnormal EEG characterized by: 1. Slowing of the background in the 4-5 Hz theta and 1.5-2 Hz delta range. 2. The presence of slow sleep spindles seen in the frontocentral region. (4) Failure to thrive syndrome, adult Assessment & Plan: S/P PEG on enteral feeds now (5) Acute hypoactive delirium due to multiple etiologies Assessment & Plan: Consider changing current psychotropic regimen - Seroquel not appearing to be effective. (6) Dementia, vascular Status: stable Recommendations Maintain normothermia Abx as per ID Na 135-145 Maintain sleep hygiene for patient - recommend Melatonin 3mg QHS Avoid use of benzodiazapenes, anticholinergics, and opioid narcotics. May utilize Seroquel 25mg QD/ QHS for behavioral agitation. Lydia Obrien N.P. February 19, 2019 22:07
--- NOTE | 2019-02-19 23:37 | Psych Consult Progress Note ---
Psychiatry Progress Note Psychiatry Progress Note Medications Current Medications Medications (Trade) Dose Ordered Sig/Lucie Route PRN Reason Start Time Stop Time Status Last Admin Dose Admin Acetaminophen (Tylenol) 650 mg Q4H PRN ORAL Mild Pain/Temp > 100.5 02/12/19 08:15 03/14/19 08:14 02/14/19 00:45 Clonidine HCl (Catapres Tab) 0.1 mg Q4H PRN ORAL For High Blood Pressure 02/12/19 08:15 03/14/19 08:14 Dextrose 1,000 ml @ 50 mls/hr Q20H IV 02/16/19 16:00 03/14/19 15:59 02/19/19 06:16 Dextrose (Dextrose 50%) 25 ml Q30M PRN IV Hypoglycemia 02/12/19 08:15 03/14/19 08:14 Dextrose (Dextrose 50%) 50 ml Q30M PRN IV Hypoglycemia 02/12/19 08:15 03/14/19 08:14 Docusate Sodium (Colace) 100 mg TWICE A DAY GT 02/19/19 10:00 03/14/19 08:59 02/19/19 17:56 Haloperidol (Haldol) 5 mg Q6H PRN ORAL Agitation 02/12/19 08:30 03/14/19 08:29 02/12/19 16:20 Heparin Sodium (Porcine) (Heparin 5000 units/ml) 5,000 units EVERY 12 HOURS SUBQ 02/12/19 09:00 03/14/19 08:59 02/19/19 21:32 Lorazepam (Ativan 2mg/ml 1ml) 0.5 mg Q4H PRN IV For Anxiety 02/18/19 12:15 02/25/19 12:14 02/19/19 21:31 Morphine Sulfate (Morphine Sulfate) 1 mg Q4H PRN IVP For Pain 02/18/19 12:15 02/25/19 12:14 02/19/19 20:01 Olanzapine (ZyPREXA) 2.5 mg TID PRN ORAL agitation 02/13/19 11:00 03/14/19 13:59 Ondansetron HCl (Zofran) 4 mg Q6H PRN IVP Nausea & Vomiting 02/12/19 08:15 03/14/19 08:14 Piperacillin Sod/ Tazobactam Sod 3.375 gm/Sodium Chloride 110 ml @ 27.5 mls/hr EVERY 8 HOURS IVPB 02/14/19 14:00 02/20/19 23:59 02/19/19 21:33 Polyethylene Glycol (Miralax) 17 gm HSPRN PRN ORAL Constipation 02/12/19 08:15 03/14/19 08:14 Tamsulosin HCl (Flomax) 0.4 mg BID ORAL 02/12/19 18:00 03/14/19 17:59 02/19/19 17:56 Valproic Acid (Depakene) 500 mg Q12HR GT 02/19/19 21:00 03/21/19 20:59 02/19/19 21:31 Zolpidem Tartrate (Ambien) 5 mg HSPRN PRN ORAL Insomnia 02/18/19 12:15 02/25/19 12:14 Neurological/Psychiatric: Reports: anxiety, depressed, emotional problems Allergies: Uncoded Allergies: anesthetics unspecified (Allergy, Mild, 02/12/19) sulfonamides (Allergy, Mild, rash, 02/12/19) Objective Data Height (Feet): 5 Height (Inches): 6.00 Weight (Pounds): 109 Appearance: disheveled Mental Status Exam - Affect: blunted Mental Status Exam - Mood: anxious, agitated Mental Status Exam - Thought P: illogical, tangential, confusion, disorganized Mental Status Exam - Thought C: delusions (specify) Mental Status Exam - Suicidal: not present Assessment/Plan Problem List: (1) Dementia with behavioral disturbance ICD Codes: F03.91 - Unspecified dementia with behavioral disturbance SNOMED: 3812114706605 Status: stable Assessment/Plan: zyprexa prn haldol prn depakote the pt lacks capacity to make decisions Mckenna Bermudez MD February 19, 2019 23:37
[2019-02-20] VITALS: BP 106/69
[2019-02-20 04:00] VITALS: BP 97/73
[2019-02-20] MEDS: Piperacillin/Tazobactam 3.375 GM in NS 110 ML IVPB SCH ×3 (06:27→21:39)
[2019-02-20 06:33] LABS: BASOPHILS % (AUTO) 0.5 % (0.0-2.0); EOSINOPHILS % (AUTO) 2.8 % (0.0-3.0); HEMATOCRIT 33.7 % (42.0-52.0); HEMOGLOBIN 11.3 G/DL (14.2-18.0); LYMPHOCYTES % (AUTO) 41.5 % (20.0-45.0); MEAN CORPUSCULAR VOLUME 94 FL (80-99); MONOCYTES % (AUTO) 10.5 % (1.0-10.0); NEUTROPHILS % (AUTO) 44.6 % (45.0-75.0); PLATELET COUNT 225 K/UL (150-450); RED CELL DISTRIBUTION WIDTH 12.6 % (11.6-14.8); WHITE BLOOD COUNT 6.9 K/UL (4.8-10.8)
[2019-02-20 06:36] LABS: ANION GAP 0 mmol/L (5-15); BLOOD UREA NITROGEN 36 mg/dL (7-18); CALCIUM 8.5 MG/DL (8.5-10.1); CARBON DIOXIDE 29 MMOL/L (21-32); CHLORIDE 109 MMOL/L (98-107); CREATININE 1.4 MG/DL (0.55-1.30); POTASSIUM 3.9 MMOL/L (3.5-5.1); SODIUM 138 MMOL/L (136-145)
--- NOTE | 2019-02-20 06:54 | General Progress Note ---
Assessment/Plan Problem List: (1) Hepatitis C ICD Codes: B19.20 - Unspecified viral hepatitis C without hepatic coma SNOMED: 24865137 (2) HTN (hypertension) ICD Codes: I10 - Essential (primary) hypertension SNOMED: 68290066 (3) Failure to thrive syndrome, adult ICD Codes: R62.7 - Failure to thrive syndrome, adult SNOMED: 582177474 Status: stable Assessment/Plan: Status post PEG G-tube feedings per dietitian Continue antibiotics GT site care daily and as needed Elevate head of bed at all times PRN transfusion PPI Reglan as needed for GI motility DC planning Subjective ROS Limited/Unobtainable: Yes Allergies: Uncoded Allergies: anesthetics unspecified (Allergy, Mild, 02/12/19) sulfonamides (Allergy, Mild, rash, 02/12/19) Objective Last 24 Hour Vital Signs Date Time Temp Pulse Resp B/P (MAP) Pulse Ox O2 Delivery O2 Flow Rate FiO2 02/20/19 04:00 97.2 77 18 97/73 (81) 100 02/20/19 00:00 98.2 76 17 106/69 (81) 96 02/19/19 21:00 Room Air 02/19/19 20:00 98.7 81 19 106/70 (82) 99 02/19/19 16:00 98.2 79 20 114/76 (89) 98 02/19/19 12:00 97.3 82 18 112/77 (89) 98 02/19/19 09:00 Room Air 02/19/19 08:00 98.0 66 18 119/73 (88) 95 Intake and Output 02/19/19 02/20/19 19:00 07:00 Intake Total 1350.0 ml 580.0 ml Output Total 900 ml Balance 1350.0 ml -320.0 ml Intake Free Water 300 ml 100 ml IV Total 420.0 ml 205.0 ml Tube Feeding 630 ml 275 ml Output Urine Total 900 ml # Voids 2 # Bowel Movements 1 Laboratory Tests 02/20/19 05:40: White Blood Count 6.9, Red Blood Count 3.60L, Hemoglobin 11.3L, Hematocrit 33.7L , Mean Corpuscular Volume 94, Mean Corpuscular Hemoglobin 31.3H, Mean Corpuscular Hemoglobin Concent 33.4, Red Cell Distribution Width 12.6, Platelet Count 225, Mean Platelet Volume 6.2L, Neutrophils (%) (Auto) 44.6L, Lymphocytes (%) (Auto) 41.5, Monocytes (%) (Auto) 10.5H, Eosinophils (%) (Auto) 2.8, Basophils (%) (Auto) 0.5, Sodium Level 138, Potassium Level 3.9, Chloride Level 109H, Carbon Dioxide Level 29, Anion Gap 0L, Blood Urea Nitrogen 36H, Creatinine 1.4H, Estimat Glomerular Filtration Rate > 60, Glucose Level 114H, Calcium Level 8.5 Height (Feet): 5 Height (Inches): 6.00 Weight (Pounds): 109 General Appearance: no apparent distress EENT: normal ENT inspection Neck: supple Cardiovascular: normal rate Respiratory/Chest: decreased breath sounds Abdomen: normal bowel sounds, non tender, soft Extremities: non-tender Min Samuel MD February 20, 2019 06:54
--- NOTE | 2019-02-20 07:30 | NUR ---
HAND-OFF: Report given to Lata CARMEN.
[2019-02-20 08:00] VITALS: BP 126/84
--- NOTE | 2019-02-20 08:00 | NUR ---
NURSE NOTES: Patient opens eyes to name,nonverbal,respirations are unlabored.IV fluids infusing as ordered,G-tube feedings as ordered no residual noted .Condom catheter is in place and draining,yellow urine.Wrist restraints as ordered,skiin care and ROM will be given.Bed alarm is on.Family member at bedside.
--- NOTE | 2019-02-20 08:03 | Pulmonology Progress Note ---
Assessment/Plan Assessment/Plan ASSESSMENT ARF on CKD 2 to dehydration Dehydration Hyper Na- resolved Dysphagia, s/p PEG 02/15 Acute encephalopathy UTI with Proteus, E coli ESBL Severe protein calorie malnutrition Hypotension resolved Dementia with behavioral disturbances Hx of prostate Ca Hx of Hep C PLAN OF CARE MS floor IVF, monitor renal parameters, lytes, correct lytes prn, avoid nephrotoxic, creat trending down abx as per ID UCX + Proteus, E coli ESBL BCX negative DVT prophylaxis O2 HHN prn, CXR no acute CP pathology strict asp precautions, GT feeding, monitor tolerance CT head, MRI brain no acute IC pathology EEG + encephalopathy neuro follows Seroquel prn ECHO with pEF , hypotension resolved dietary supplements to improve nutritional status case discussed and evaluated by supervising physician Subjective Allergies: Uncoded Allergies: anesthetics unspecified (Allergy, Mild, 02/12/19) sulfonamides (Allergy, Mild, rash, 02/12/19) Subjective no signs of resp distress remains afebrile tolerates GT feeding Objective Last 24 Hour Vital Signs Date Time Temp Pulse Resp B/P (MAP) Pulse Ox O2 Delivery O2 Flow Rate FiO2 02/20/19 04:00 97.2 77 18 97/73 (81) 100 02/20/19 00:00 98.2 76 17 106/69 (81) 96 02/19/19 21:00 Room Air 02/19/19 20:00 98.7 81 19 106/70 (82) 99 02/19/19 16:00 98.2 79 20 114/76 (89) 98 02/19/19 12:00 97.3 82 18 112/77 (89) 98 02/19/19 09:00 Room Air Intake and Output 02/19/19 02/20/19 19:00 07:00 Intake Total 1350.0 ml 1370.0 ml Output Total 900 ml Balance 1350.0 ml 470.0 ml Intake Free Water 300 ml 250 ml IV Total 420.0 ml 460.0 ml Tube Feeding 630 ml 660 ml Output Urine Total 900 ml # Voids 2 # Bowel Movements 1 General Appearance: no acute distress HEENT: normocephalic, atraumatic, anicteric Respiratory/Chest: lungs clear - with moderate air exchange , no respiratory distress Cardiovascular: normal peripheral pulses, normal rate, no JVD Abdomen: soft, non tender, non distended, other - G tube Extremities: no edema, pedal pulses normal Neurologic/Psychiatric: alert - confused Laboratory Tests 02/20/19 05:40: White Blood Count 6.9, Red Blood Count 3.60L, Hemoglobin 11.3L, Hematocrit 33.7L , Mean Corpuscular Volume 94, Mean Corpuscular Hemoglobin 31.3H, Mean Corpuscular Hemoglobin Concent 33.4, Red Cell Distribution Width 12.6, Platelet Count 225, Mean Platelet Volume 6.2L, Neutrophils (%) (Auto) 44.6L, Lymphocytes (%) (Auto) 41.5, Monocytes (%) (Auto) 10.5H, Eosinophils (%) (Auto) 2.8, Basophils (%) (Auto) 0.5, Sodium Level 138, Potassium Level 3.9, Chloride Level 109H, Carbon Dioxide Level 29, Anion Gap 0L, Blood Urea Nitrogen 36H, Creatinine 1.4H, Estimat Glomerular Filtration Rate > 60, Glucose Level 114H, Calcium Level 8.5 Current Medications Medications (Trade) Dose Ordered Sig/Lucie Route PRN Reason Start Time Stop Time Status Last Admin Dose Admin Acetaminophen (Tylenol) 650 mg Q4H PRN ORAL Mild Pain/Temp > 100.5 02/12/19 08:15 03/14/19 08:14 02/14/19 00:45 Clonidine HCl (Catapres Tab) 0.1 mg Q4H PRN ORAL For High Blood Pressure 02/12/19 08:15 03/14/19 08:14 Dextrose 1,000 ml @ 50 mls/hr Q20H IV 02/16/19 16:00 03/14/19 15:59 02/20/19 01:05 Dextrose (Dextrose 50%) 25 ml Q30M PRN IV Hypoglycemia 02/12/19 08:15 03/14/19 08:14 Dextrose (Dextrose 50%) 50 ml Q30M PRN IV Hypoglycemia 02/12/19 08:15 03/14/19 08:14 Docusate Sodium (Colace) 100 mg TWICE A DAY GT 02/19/19 10:00 03/14/19 08:59 02/19/19 17:56 Haloperidol (Haldol) 5 mg Q6H PRN ORAL Agitation 02/12/19 08:30 03/14/19 08:29 02/12/19 16:20 Heparin Sodium (Porcine) (Heparin 5000 units/ml) 5,000 units EVERY 12 HOURS SUBQ 02/12/19 09:00 03/14/19 08:59 02/19/19 21:32 Lorazepam (Ativan 2mg/ml 1ml) 0.5 mg Q4H PRN IV For Anxiety 02/18/19 12:15 02/25/19 12:14 02/19/19 21:31 Morphine Sulfate (Morphine Sulfate) 1 mg Q4H PRN IVP For Pain 02/18/19 12:15 02/25/19 12:14 02/19/19 20:01 Olanzapine (ZyPREXA) 2.5 mg TID PRN ORAL agitation 02/13/19 11:00 03/14/19 13:59 Ondansetron HCl (Zofran) 4 mg Q6H PRN IVP Nausea & Vomiting 02/12/19 08:15 03/14/19 08:14 Piperacillin Sod/ Tazobactam Sod 3.375 gm/Sodium Chloride 110 ml @ 27.5 mls/hr EVERY 8 HOURS IVPB 02/14/19 14:00 02/20/19 23:59 02/20/19 06:27 Polyethylene Glycol (Miralax) 17 gm HSPRN PRN ORAL Constipation 02/12/19 08:15 03/14/19 08:14 Tamsulosin HCl (Flomax) 0.4 mg BID ORAL 02/12/19 18:00 03/14/19 17:59 02/19/19 17:56 Valproic Acid (Depakene) 500 mg Q12HR GT 02/19/19 21:00 03/21/19 20:59 02/19/19 21:31 Zolpidem Tartrate (Ambien) 5 mg HSPRN PRN ORAL Insomnia 02/18/19 12:15 02/25/19 12:14 Baylee Montero NP February 20, 2019 08:03
--- NOTE | 2019-02-20 08:32 | NUR ---
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 FAILURE TO THRIVE . UTI VS: BP 106/69, P 69, T 97.2, RR 18, SpO2 96 RBC 3.60, Hgb 11.3, Hct 33.7, BUN 36, Cr 1.4 IS: MIDODRINE 2.5mg HEPARIN SUBQ FLOMAX 0.4mg MORPHINE SULFATE 1mg IVP D5 x1L IV DEPAKENE 500mg MED/SURG STATUS
--- NOTE | 2019-02-20 08:44 | General Progress Note ---
Assessment/Plan Problem List: (1) UTI (urinary tract infection) ICD Codes: N39.0 - Urinary tract infection, site not specified SNOMED: 53986136 (2) CKD (chronic kidney disease) ICD Codes: N18.9 - CKD (chronic kidney disease) SNOMED: 222508535 (3) ARF (acute renal failure) ICD Codes: N17.9 - ARF (acute renal failure) SNOMED: 76962257 (4) Failure to thrive syndrome, adult ICD Codes: R62.7 - Failure to thrive syndrome, adult SNOMED: 942804769 (5) Hepatitis C ICD Codes: B19.20 - Unspecified viral hepatitis C without hepatic coma SNOMED: 13191454 (6) HTN (hypertension) ICD Codes: I10 - Essential (primary) hypertension SNOMED: 73097304 Status: stable, progressing Assessment/Plan: pt diet abx gi eval cbc bmp am dc plan snf Subjective Allergies: Uncoded Allergies: anesthetics unspecified (Allergy, Mild, 02/12/19) sulfonamides (Allergy, Mild, rash, 02/12/19) All Systems: reviewed and negative except above Subjective o2nc sleepy calm Objective Last 24 Hour Vital Signs Date Time Temp Pulse Resp B/P (MAP) Pulse Ox O2 Delivery O2 Flow Rate FiO2 02/20/19 04:00 97.2 77 18 97/73 (81) 100 02/20/19 00:00 98.2 76 17 106/69 (81) 96 02/19/19 21:00 Room Air 02/19/19 20:00 98.7 81 19 106/70 (82) 99 02/19/19 16:00 98.2 79 20 114/76 (89) 98 02/19/19 12:00 97.3 82 18 112/77 (89) 98 02/19/19 09:00 Room Air Intake and Output 02/19/19 02/20/19 19:00 07:00 Intake Total 1350.0 ml 1370.0 ml Output Total 900 ml Balance 1350.0 ml 470.0 ml Intake Free Water 300 ml 250 ml IV Total 420.0 ml 460.0 ml Tube Feeding 630 ml 660 ml Output Urine Total 900 ml # Voids 2 # Bowel Movements 1 Laboratory Tests 02/20/19 05:40: White Blood Count 6.9, Red Blood Count 3.60L, Hemoglobin 11.3L, Hematocrit 33.7L , Mean Corpuscular Volume 94, Mean Corpuscular Hemoglobin 31.3H, Mean Corpuscular Hemoglobin Concent 33.4, Red Cell Distribution Width 12.6, Platelet Count 225, Mean Platelet Volume 6.2L, Neutrophils (%) (Auto) 44.6L, Lymphocytes (%) (Auto) 41.5, Monocytes (%) (Auto) 10.5H, Eosinophils (%) (Auto) 2.8, Basophils (%) (Auto) 0.5, Sodium Level 138, Potassium Level 3.9, Chloride Level 109H, Carbon Dioxide Level 29, Anion Gap 0L, Blood Urea Nitrogen 36H, Creatinine 1.4H, Estimat Glomerular Filtration Rate > 60, Glucose Level 114H, Calcium Level 8.5 Height (Feet): 5 Height (Inches): 6.00 Weight (Pounds): 109 General Appearance: lethargic EENT: normal ENT inspection Neck: normal alignment Cardiovascular: normal peripheral pulses, normal rate, regular rhythm Respiratory/Chest: chest wall non-tender, lungs clear, normal breath sounds Abdomen: normal bowel sounds, non tender, soft Extremities: normal inspection Edema: no edema noted Arm (L), no edema noted Arm (R), no edema noted Leg (L), no edema noted Leg (R), no edema noted Pedal (L), no edema noted Pedal (R), no edema noted Generalized Neurologic: motor weakness Skin: normal pigmentation, warm/dry Jaleel MoonAshley DO February 20, 2019 08:44
[2019-02-20] MEDS: Valproic Acid 250mg/5ml Liquid GT SCH ×2 (10:40→21:39)
[2019-02-20] MEDS: Tamsulosin 0.4mg cap ORAL SCH ×2 (10:40→19:20)
[2019-02-20] MEDS: Docusate 100mg/10ml Liq GT SCH ×2 (10:40→18:00)
[2019-02-20] MEDS: Heparin 5000 units/ml inj SUBQ SCH ×2 (10:41→21:39)
[2019-02-20 12:00] VITALS: BP 121/79
--- NOTE | 2019-02-20 12:07 | Nephrology Progress Note ---
Assessment/Plan Problem List: (1) ARF (acute renal failure) Assessment: cr lowering (2) CKD (chronic kidney disease) (3) Failure to thrive syndrome, adult (4) Hypernatremia Assessment Acute encephalopathy Psych history & Paranoia h/o Prostate cancer CKD (chronic kidney disease), superimposed ARF / Dehydration h/o Hepatitis C h/o Dementia Plan start Midodrine D5w Hydrate monitor renal parameters keep BP and BS in check per orders Subjective ROS Limited/Unobtainable: No Objective Objective Last 24 Hour Vital Signs Date Time Temp Pulse Resp B/P (MAP) Pulse Ox O2 Delivery O2 Flow Rate FiO2 02/20/19 09:00 Room Air 02/20/19 08:00 98.1 76 19 126/84 (98) 96 02/20/19 04:00 97.2 77 18 97/73 (81) 100 02/20/19 00:00 98.2 76 17 106/69 (81) 96 02/19/19 21:00 Room Air 02/19/19 20:00 98.7 81 19 106/70 (82) 99 02/19/19 16:00 98.2 79 20 114/76 (89) 98 Intake and Output 02/19/19 02/20/19 19:00 07:00 Intake Total 1350.0 ml 1370.0 ml Output Total 900 ml Balance 1350.0 ml 470.0 ml Intake Free Water 300 ml 250 ml IV Total 420.0 ml 460.0 ml Tube Feeding 630 ml 660 ml Output Urine Total 900 ml # Voids 2 # Bowel Movements 1 Laboratory Tests 02/20/19 05:40: White Blood Count 6.9, Red Blood Count 3.60L, Hemoglobin 11.3L, Hematocrit 33.7L , Mean Corpuscular Volume 94, Mean Corpuscular Hemoglobin 31.3H, Mean Corpuscular Hemoglobin Concent 33.4, Red Cell Distribution Width 12.6, Platelet Count 225, Mean Platelet Volume 6.2L, Neutrophils (%) (Auto) 44.6L, Lymphocytes (%) (Auto) 41.5, Monocytes (%) (Auto) 10.5H, Eosinophils (%) (Auto) 2.8, Basophils (%) (Auto) 0.5, Sodium Level 138, Potassium Level 3.9, Chloride Level 109H, Carbon Dioxide Level 29, Anion Gap 0L, Blood Urea Nitrogen 36H, Creatinine 1.4H, Estimat Glomerular Filtration Rate > 60, Glucose Level 114H, Calcium Level 8.5 Height (Feet): 5 Height (Inches): 6.00 Weight (Pounds): 109 General Appearance: no apparent distress Cardiovascular: normal rate Respiratory/Chest: decreased breath sounds Abdomen: distended Objective no change Tanner Grant MD February 20, 2019 12:07
--- NOTE | 2019-02-20 14:07 | NUR ---
NURSE NOTES: Dressing change to sacral area,picture ,bilateral trocanters,skin is intact,no open wounds noted. Turnes and position,patient had a large soft brown BM ,skin care given.
[2019-02-20 16:00] VITALS: BP 119/72
--- NOTE | 2019-02-20 16:19 | Cardiac Electrophysiology PN ---
Assessment/Plan Assessment/Plan 1. Hypotension, Resolved on IV antibiotic and fluids. Echo showed Nl EF. 2. Dementia. Head CT is negative. 3. Renal failure and hypernatremia with sodium 154 with a BUN of 99, creatinine 3.4. It is likely due to dehydration. On IV fluids. Cr down to 1.4 4. Dehydration. 5. Negative troponin. 6. S/P PEG by Dr Lizzie OBANDO RN Subjective Subjective Confused in restraints. DC Planning in progress Objective Last 24 Hour Vital Signs Date Time Temp Pulse Resp B/P (MAP) Pulse Ox O2 Delivery O2 Flow Rate FiO2 02/20/19 12:00 98.5 69 18 121/79 (93) 98 02/20/19 09:00 Room Air 02/20/19 08:00 98.1 76 19 126/84 (98) 96 02/20/19 04:00 97.2 77 18 97/73 (81) 100 02/20/19 00:00 98.2 76 17 106/69 (81) 96 02/19/19 21:00 Room Air 02/19/19 20:00 98.7 81 19 106/70 (82) 99 Intake and Output 02/19/19 02/20/19 19:00 07:00 Intake Total 1350.0 ml 1370.0 ml Output Total 900 ml Balance 1350.0 ml 470.0 ml Intake Free Water 300 ml 250 ml IV Total 420.0 ml 460.0 ml Tube Feeding 630 ml 660 ml Output Urine Total 900 ml # Voids 2 # Bowel Movements 1 Laboratory Tests Test 02/20/19 05:40 White Blood Count 6.9 K/UL (4.8-10.8) Red Blood Count 3.60 M/UL (4.70-6.10) L Hemoglobin 11.3 G/DL (14.2-18.0) L Hematocrit 33.7 % (42.0-52.0) L Mean Corpuscular Volume 94 FL (80-99) Mean Corpuscular Hemoglobin 31.3 PG (27.0-31.0) H Mean Corpuscular Hemoglobin Concent 33.4 G/DL (32.0-36.0) Red Cell Distribution Width 12.6 % (11.6-14.8) Platelet Count 225 K/UL (150-450) Mean Platelet Volume 6.2 FL (6.5-10.1) L Neutrophils (%) (Auto) 44.6 % (45.0-75.0) L Lymphocytes (%) (Auto) 41.5 % (20.0-45.0) Monocytes (%) (Auto) 10.5 % (1.0-10.0) H Eosinophils (%) (Auto) 2.8 % (0.0-3.0) Basophils (%) (Auto) 0.5 % (0.0-2.0) Sodium Level 138 MMOL/L (136-145) Potassium Level 3.9 MMOL/L (3.5-5.1) Chloride Level 109 MMOL/L (98-107) H Carbon Dioxide Level 29 MMOL/L (21-32) Anion Gap 0 mmol/L (5-15) L Blood Urea Nitrogen 36 mg/dL (7-18) H Creatinine 1.4 MG/DL (0.55-1.30) H Estimat Glomerular Filtration Rate > 60 mL/min (>60) Glucose Level 114 MG/DL (74-106) H Calcium Level 8.5 MG/DL (8.5-10.1) Objective HEAD AND NECK: No JVD. LUNGS: Coarse rhonchi. CARDIOVASCULAR: Regular S1 and S2 with no gallop or murmur. ABDOMEN: Soft.PEG in place EXTREMITIES: No pitting edema. Bryce Ba MD February 20, 2019 16:19
--- NOTE | 2019-02-20 16:43 | NUR ---
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
--- NOTE | 2019-02-20 18:30 | NUR ---
NURSE NOTES: Patient had a large brown BM,skin care given,patient more awake,confused,patient continue to tolerate g-tube feedings.bed alarm remains on.HOB is elevated.
--- NOTE | 2019-02-20 19:55 | NUR ---
HAND-OFF: Report given to Inga CARMEN.
--- NOTE | 2019-02-20 19:56 | NUR ---
NURSE NOTES: Patient opens eyes to name,primarily nonverbal, occasional words, very contracted. respirations are unlabored.IV fluids infusing as ordered,G-tube feedings as ordered no residual noted, G tube in place .Condom catheter was off but I replaced it. It is now on and draining yellow urine.Wrist restraints as ordered, renewing non behavioral restraints. Bed alarm is on. at bedside, will continue to monitor.
[2019-02-20 20:00] VITALS: BP 123/65
--- NOTE | 2019-02-20 23:35 | Psych Consult Progress Note ---
Psychiatry Progress Note Psychiatry Progress Note Subjective the pts mental condition is unchanged since previous encounter Medications Current Medications Medications (Trade) Dose Ordered Sig/Lucie Route PRN Reason Start Time Stop Time Status Last Admin Dose Admin Acetaminophen (Tylenol) 650 mg Q4H PRN ORAL Mild Pain/Temp > 100.5 02/12/19 08:15 03/14/19 08:14 02/14/19 00:45 Clonidine HCl (Catapres Tab) 0.1 mg Q4H PRN ORAL For High Blood Pressure 02/12/19 08:15 03/14/19 08:14 Dextrose 1,000 ml @ 50 mls/hr Q20H IV 02/16/19 16:00 03/14/19 15:59 02/20/19 01:05 Dextrose (Dextrose 50%) 25 ml Q30M PRN IV Hypoglycemia 02/12/19 08:15 03/14/19 08:14 Dextrose (Dextrose 50%) 50 ml Q30M PRN IV Hypoglycemia 02/12/19 08:15 03/14/19 08:14 Docusate Sodium (Colace) 100 mg TWICE A DAY GT 02/19/19 10:00 03/14/19 08:59 02/20/19 10:40 Haloperidol (Haldol) 5 mg Q6H PRN ORAL Agitation 02/12/19 08:30 03/14/19 08:29 02/12/19 16:20 Heparin Sodium (Porcine) (Heparin 5000 units/ml) 5,000 units EVERY 12 HOURS SUBQ 02/12/19 09:00 03/14/19 08:59 02/20/19 21:39 Lorazepam (Ativan 2mg/ml 1ml) 0.5 mg Q4H PRN IV For Anxiety 02/18/19 12:15 02/25/19 12:14 02/19/19 21:31 Midodrine (Pro-Amatine) 2.5 mg THREE TIMES A DAY GT 02/20/19 13:00 03/22/19 12:59 02/20/19 19:20 Morphine Sulfate (Morphine Sulfate) 1 mg Q4H PRN IVP For Pain 02/18/19 12:15 02/25/19 12:14 02/19/19 20:01 Olanzapine (ZyPREXA) 2.5 mg TID PRN ORAL agitation 02/13/19 11:00 03/14/19 13:59 Ondansetron HCl (Zofran) 4 mg Q6H PRN IVP Nausea & Vomiting 02/12/19 08:15 03/14/19 08:14 Piperacillin Sod/ Tazobactam Sod 3.375 gm/Sodium Chloride 110 ml @ 27.5 mls/hr EVERY 8 HOURS IVPB 02/14/19 14:00 02/20/19 23:59 02/20/19 21:39 Polyethylene Glycol (Miralax) 17 gm HSPRN PRN ORAL Constipation 02/12/19 08:15 03/14/19 08:14 Tamsulosin HCl (Flomax) 0.4 mg BID ORAL 02/12/19 18:00 03/14/19 17:59 02/20/19 19:20 Valproic Acid (Depakene) 500 mg Q12HR GT 02/19/19 21:00 03/21/19 20:59 02/20/19 21:39 Zolpidem Tartrate (Ambien) 5 mg HSPRN PRN ORAL Insomnia 02/18/19 12:15 02/25/19 12:14 Neurological/Psychiatric: Reports: anxiety, depressed, emotional problems, weakness Allergies: Uncoded Allergies: anesthetics unspecified (Allergy, Mild, 02/12/19) sulfonamides (Allergy, Mild, rash, 02/12/19) Objective Data Height (Feet): 5 Height (Inches): 6.00 Weight (Pounds): 109 General Appearance: WD/WN, no apparent distress, alert, confused, agitated Appearance: disheveled Behavior Mannerisms: poor eye contact Mental Status Exam - Affect: constricted Mental Status Exam - Mood: anxious, agitated Mental Status Exam - Thought P: tangential, confusion Mental Status Exam - Suicidal: not present Assessment/Plan Problem List: (1) Dementia with behavioral disturbance ICD Codes: F03.91 - Unspecified dementia with behavioral disturbance SNOMED: 5897388895008 Status: stable, progressing Assessment/Plan: zyprexa prn haldol prn depakote the pt lacks capacity to make decisions Mckenna Bermudez MD February 20, 2019 23:35
[2019-02-21] VITALS: BP 133/80
[2019-02-21 04:00] VITALS: BP_SYST 123; BP_SYST 135; BP_DIAS 65; BP_DIAS 89
[2019-02-21 07:16] LABS: ANION GAP 4 mmol/L (5-15); BLOOD UREA NITROGEN 35 mg/dL (7-18); CALCIUM 8.9 MG/DL (8.5-10.1); CARBON DIOXIDE 31 MMOL/L (21-32); CHLORIDE 110 MMOL/L (98-107); CREATININE 1.6 MG/DL (0.55-1.30); POTASSIUM 4.3 MMOL/L (3.5-5.1); SODIUM 145 MMOL/L (136-145)
[2019-02-21 07:21] LABS: BASOPHILS % (AUTO) 0.7 % (0.0-2.0); EOSINOPHILS % (AUTO) 3.2 % (0.0-3.0); HEMATOCRIT 33.8 % (42.0-52.0); HEMOGLOBIN 11.6 G/DL (14.2-18.0); MEAN CORPUSCULAR VOLUME 93 FL (80-99); MONOCYTES % (AUTO) 10.5 % (1.0-10.0); NEUTROPHILS % (AUTO) 44.5 % (45.0-75.0); PLATELET COUNT 220 K/UL (150-450); RED BLOOD COUNT 3.64 M/UL (4.70-6.10); RED CELL DISTRIBUTION WIDTH 12.5 % (11.6-14.8); WHITE BLOOD COUNT 6.3 K/UL (4.8-10.8)
--- NOTE | 2019-02-21 07:39 | NUR ---
HAND-OFF: Report given to KERMIT Guido.
--- NOTE | 2019-02-21 07:44 | NUR ---
NURSE NOTES: Patient responds to touch,patient patient moving extremities.G-tube feeding as ordered.IV fluids infusing .Condom catheter noted,will monitor urine output.Bed alarm on,patient in wrist restraints,ROM to be given,skin care.HOB is elevated.
[2019-02-21 08:00] VITALS: BP 130/74
--- NOTE | 2019-02-21 08:04 | Pulmonology Progress Note ---
Assessment/Plan Assessment/Plan ASSESSMENT ARF on CKD 2 to dehydration Dehydration Hyper Na- resolved Dysphagia, s/p PEG 02/15 Acute encephalopathy on chronic dementia UTI with Proteus, E coli ESBL, Severe protein calorie malnutrition Hypotension resolved Dementia with behavioral disturbances Hx of prostate Ca Hx of Hep C PLAN OF CARE [facility] floor IVF, monitor renal parameters, lytes, correct lytes prn, avoid nephrotoxic, creat trending down abx completed 02/20 UCX + Proteus, E coli ESBL BCX negative DVT prophylaxis O2 HHN prn, CXR no acute CP pathology strict asp precautions, GT feeding, monitor tolerance CT head, MRI brain no acute IC pathology EEG + encephalopathy neuro follows Seroquel prn ECHO with pEF , hypotension resolved dietary supplements to improve nutritional status case discussed and evaluated by supervising physician Subjective Allergies: Uncoded Allergies: anesthetics unspecified (Allergy, Mild, 02/12/19) sulfonamides (Allergy, Mild, rash, 02/12/19) Subjective no signs of resp distress remains afebrile tolerates GT feeding Objective Last 24 Hour Vital Signs Date Time Temp Pulse Resp B/P (MAP) Pulse Ox O2 Delivery O2 Flow Rate FiO2 02/21/19 04:00 97.1 84 16 135/89 (104) 100 02/21/19 00:00 98.0 89 20 133/80 (97) 96 02/20/19 21:00 Room Air 02/20/19 20:00 98.2 76 18 123/65 (84) 97 02/20/19 16:00 97.6 79 18 119/72 (88) 96 02/20/19 12:00 98.5 69 18 121/79 (93) 98 02/20/19 09:00 Room Air Intake and Output 02/20/19 02/21/19 19:00 07:00 Intake Total 1100 ml 660 ml Output Total 800 ml Balance 1100 ml -140 ml Intake Free Water 150 ml IV Total 400 ml Tube Feeding 550 ml 660 ml Output Urine Total 800 ml # Voids 2 # Bowel Movements 1 3 Objective General Appearance: no acute distress HEENT: normocephalic, atraumatic, anicteric Respiratory/Chest: lungs clear with moderate air exchange , no respiratory distress Cardiovascular: normal peripheral pulses, normal rate, no JVD Abdomen: soft, non tender, non distended, G tube Extremities: no edema, pedal pulses normal Neurologic/Psychiatric: confused Laboratory Tests 02/21/19 06:30: White Blood Count 6.3, Red Blood Count 3.64L, Hemoglobin 11.6L, Hematocrit 33.8L , Mean Corpuscular Volume 93, Mean Corpuscular Hemoglobin 31.9H, Mean Corpuscular Hemoglobin Concent 34.3, Red Cell Distribution Width 12.5, Platelet Count 220, Mean Platelet Volume 6.2L, Neutrophils (%) (Auto) 44.5L, Lymphocytes (%) (Auto) 41.0, Monocytes (%) (Auto) 10.5H, Eosinophils (%) (Auto) 3.2H, Basophils (%) (Auto) 0.7, Sodium Level 145, Potassium Level 4.3, Chloride Level 110H, Carbon Dioxide Level 31, Anion Gap 4L, Blood Urea Nitrogen 35H, Creatinine 1.6H, Estimat Glomerular Filtration Rate 52.2, Glucose Level 95, Calcium Level 8.9 Current Medications Medications (Trade) Dose Ordered Sig/Lucie Route PRN Reason Start Time Stop Time Status Last Admin Dose Admin Acetaminophen (Tylenol) 650 mg Q4H PRN ORAL Mild Pain/Temp > 100.5 02/12/19 08:15 03/14/19 08:14 02/14/19 00:45 Clonidine HCl (Catapres Tab) 0.1 mg Q4H PRN ORAL For High Blood Pressure 02/12/19 08:15 03/14/19 08:14 Dextrose 1,000 ml @ 50 mls/hr Q20H IV 02/16/19 16:00 03/14/19 15:59 02/21/19 03:56 Dextrose (Dextrose 50%) 25 ml Q30M PRN IV Hypoglycemia 02/12/19 08:15 03/14/19 08:14 Dextrose (Dextrose 50%) 50 ml Q30M PRN IV Hypoglycemia 02/12/19 08:15 03/14/19 08:14 Docusate Sodium (Colace) 100 mg TWICE A DAY GT 02/19/19 10:00 03/14/19 08:59 02/20/19 10:40 Haloperidol (Haldol) 5 mg Q6H PRN ORAL Agitation 02/12/19 08:30 03/14/19 08:29 02/12/19 16:20 Heparin Sodium (Porcine) (Heparin 5000 units/ml) 5,000 units EVERY 12 HOURS SUBQ 02/12/19 09:00 03/14/19 08:59 02/20/19 21:39 Lorazepam (Ativan 2mg/ml 1ml) 0.5 mg Q4H PRN IV For Anxiety 02/18/19 12:15 02/25/19 12:14 02/19/19 21:31 Midodrine (Pro-Amatine) 2.5 mg THREE TIMES A DAY GT 02/20/19 13:00 03/22/19 12:59 02/20/19 19:20 Morphine Sulfate (Morphine Sulfate) 1 mg Q4H PRN IVP For Pain 02/18/19 12:15 02/25/19 12:14 02/19/19 20:01 Olanzapine (ZyPREXA) 2.5 mg TID PRN ORAL agitation 02/13/19 11:00 03/14/19 13:59 Ondansetron HCl (Zofran) 4 mg Q6H PRN IVP Nausea & Vomiting 02/12/19 08:15 03/14/19 08:14 Polyethylene Glycol (Miralax) 17 gm HSPRN PRN ORAL Constipation 02/12/19 08:15 03/14/19 08:14 Tamsulosin HCl (Flomax) 0.4 mg BID ORAL 02/12/19 18:00 03/14/19 17:59 02/20/19 19:20 Valproic Acid (Depakene) 500 mg Q12HR GT 02/19/19 21:00 03/21/19 20:59 02/20/19 21:39 Zolpidem Tartrate (Ambien) 5 mg HSPRN PRN ORAL Insomnia 02/18/19 12:15 02/25/19 12:14 Baylee Montero NP February 21, 2019 08:04
--- NOTE | 2019-02-21 08:34 | General Progress Note ---
Assessment/Plan Problem List: (1) UTI (urinary tract infection) ICD Codes: N39.0 - Urinary tract infection, site not specified SNOMED: 76579928 (2) CKD (chronic kidney disease) ICD Codes: N18.9 - CKD (chronic kidney disease) SNOMED: 540251062 (3) ARF (acute renal failure) ICD Codes: N17.9 - ARF (acute renal failure) SNOMED: 84900570 (4) Failure to thrive syndrome, adult ICD Codes: R62.7 - Failure to thrive syndrome, adult SNOMED: 140964627 (5) Hepatitis C ICD Codes: B19.20 - Unspecified viral hepatitis C without hepatic coma SNOMED: 21397486 (6) HTN (hypertension) ICD Codes: I10 - Essential (primary) hypertension SNOMED: 89669872 Status: stable, progressing Assessment/Plan: pt diet abx gi eval cbc bmp am dc plan snf Subjective Constitutional: Reports: weakness Allergies: Uncoded Allergies: anesthetics unspecified (Allergy, Mild, 02/12/19) sulfonamides (Allergy, Mild, rash, 02/12/19) All Systems: reviewed and negative except above Subjective o2nc sleepy calm Objective Last 24 Hour Vital Signs Date Time Temp Pulse Resp B/P (MAP) Pulse Ox O2 Delivery O2 Flow Rate FiO2 02/21/19 04:00 97.1 84 16 135/89 (104) 100 02/21/19 00:00 98.0 89 20 133/80 (97) 96 02/20/19 21:00 Room Air 02/20/19 20:00 98.2 76 18 123/65 (84) 97 02/20/19 16:00 97.6 79 18 119/72 (88) 96 02/20/19 12:00 98.5 69 18 121/79 (93) 98 02/20/19 09:00 Room Air Intake and Output 02/20/19 02/21/19 19:00 07:00 Intake Total 1100 ml 660 ml Output Total 800 ml Balance 1100 ml -140 ml Intake Free Water 150 ml IV Total 400 ml Tube Feeding 550 ml 660 ml Output Urine Total 800 ml # Voids 2 # Bowel Movements 1 3 Laboratory Tests 02/21/19 06:30: White Blood Count 6.3, Red Blood Count 3.64L, Hemoglobin 11.6L, Hematocrit 33.8L , Mean Corpuscular Volume 93, Mean Corpuscular Hemoglobin 31.9H, Mean Corpuscular Hemoglobin Concent 34.3, Red Cell Distribution Width 12.5, Platelet Count 220, Mean Platelet Volume 6.2L, Neutrophils (%) (Auto) 44.5L, Lymphocytes (%) (Auto) 41.0, Monocytes (%) (Auto) 10.5H, Eosinophils (%) (Auto) 3.2H, Basophils (%) (Auto) 0.7, Sodium Level 145, Potassium Level 4.3, Chloride Level 110H, Carbon Dioxide Level 31, Anion Gap 4L, Blood Urea Nitrogen 35H, Creatinine 1.6H, Estimat Glomerular Filtration Rate 52.2, Glucose Level 95, Calcium Level 8.9 Height (Feet): 5 Height (Inches): 6.00 Weight (Pounds): 109 General Appearance: lethargic EENT: normal ENT inspection Neck: normal alignment Cardiovascular: normal peripheral pulses, normal rate, regular rhythm Respiratory/Chest: chest wall non-tender, lungs clear, normal breath sounds Abdomen: normal bowel sounds, non tender, soft Extremities: normal inspection Edema: no edema noted Arm (L), no edema noted Arm (R), no edema noted Leg (L), no edema noted Leg (R), no edema noted Pedal (L), no edema noted Pedal (R), no edema noted Generalized Neurologic: motor weakness Skin: normal pigmentation, warm/dry Jaleel Moon DO February 21, 2019 08:33
--- NOTE | 2019-02-21 08:41 | NUR ---
CASE MANAGEMENT REVIEW SI:ARF . CKD . HYPERNATREMIA . UTI VS: BP 109/67, P 51, T 97.5, RR 19, SpO2 96 RBC 3.64, Hgb 11.6, Hct 33.8, BUN 35, Cr 1.6 IS:MIDODRINE 2.5mg FLOMAX 0.4mg MORPHINE SULFATE 1mg DEPAKENE 500mg HEPARIN SUBQ D5 x1L IV MED/SURG STATUS
[2019-02-21] MEDS: Valproic Acid 250mg/5ml Liquid GT SCH ×2 (08:46→20:37)
[2019-02-21] MEDS: Tamsulosin 0.4mg cap ORAL SCH ×2 (08:47→17:55)
[2019-02-21] MEDS: Heparin 5000 units/ml inj SUBQ SCH ×2 (08:48→20:40)
[2019-02-21] MEDS: Docusate 100mg/10ml Liq GT SCH ×2 (08:49→17:42)
--- NOTE | 2019-02-21 08:51 | General Progress Note ---
Assessment/Plan Problem List: (1) Hepatitis C ICD Codes: B19.20 - Unspecified viral hepatitis C without hepatic coma SNOMED: 76895583 (2) HTN (hypertension) ICD Codes: I10 - Essential (primary) hypertension SNOMED: 16022291 (3) Failure to thrive syndrome, adult ICD Codes: R62.7 - Failure to thrive syndrome, adult SNOMED: 908776181 Status: stable, progressing Assessment/Plan: Status post PEG G-tube feedings per dietitian Continue antibiotics GT site care daily and as needed Elevate head of bed at all times PRN transfusion PPI Reglan as needed for GI motility DC planning Subjective ROS Limited/Unobtainable: No Allergies: Uncoded Allergies: anesthetics unspecified (Allergy, Mild, 02/12/19) sulfonamides (Allergy, Mild, rash, 02/12/19) Objective Last 24 Hour Vital Signs Date Time Temp Pulse Resp B/P (MAP) Pulse Ox O2 Delivery O2 Flow Rate FiO2 02/21/19 04:00 97.1 84 16 135/89 (104) 100 02/21/19 00:00 98.0 89 20 133/80 (97) 96 02/20/19 21:00 Room Air 02/20/19 20:00 98.2 76 18 123/65 (84) 97 02/20/19 16:00 97.6 79 18 119/72 (88) 96 02/20/19 12:00 98.5 69 18 121/79 (93) 98 02/20/19 09:00 Room Air Intake and Output 02/20/19 02/21/19 19:00 07:00 Intake Total 1100 ml 660 ml Output Total 800 ml Balance 1100 ml -140 ml Intake Free Water 150 ml IV Total 400 ml Tube Feeding 550 ml 660 ml Output Urine Total 800 ml # Voids 2 # Bowel Movements 1 3 Laboratory Tests 02/21/19 06:30: White Blood Count 6.3, Red Blood Count 3.64L, Hemoglobin 11.6L, Hematocrit 33.8L , Mean Corpuscular Volume 93, Mean Corpuscular Hemoglobin 31.9H, Mean Corpuscular Hemoglobin Concent 34.3, Red Cell Distribution Width 12.5, Platelet Count 220, Mean Platelet Volume 6.2L, Neutrophils (%) (Auto) 44.5L, Lymphocytes (%) (Auto) 41.0, Monocytes (%) (Auto) 10.5H, Eosinophils (%) (Auto) 3.2H, Basophils (%) (Auto) 0.7, Sodium Level 145, Potassium Level 4.3, Chloride Level 110H, Carbon Dioxide Level 31, Anion Gap 4L, Blood Urea Nitrogen 35H, Creatinine 1.6H, Estimat Glomerular Filtration Rate 52.2, Glucose Level 95, Calcium Level 8.9 Height (Feet): 5 Height (Inches): 6.00 Weight (Pounds): 109 General Appearance: no apparent distress EENT: normal ENT inspection Neck: supple Cardiovascular: normal rate Respiratory/Chest: decreased breath sounds Abdomen: normal bowel sounds, non tender, soft Extremities: non-tender Min Samuel MD February 21, 2019 08:51
[2019-02-21 12:00] VITALS: BP 117/67
[2019-02-21 16:00] VITALS: BP 109/67
--- NOTE | 2019-02-21 17:01 | Nephrology Progress Note ---
Assessment/Plan Problem List: (1) ARF (acute renal failure) Assessment: cr lowering (2) CKD (chronic kidney disease) (3) Failure to thrive syndrome, adult (4) Hypernatremia Assessment Acute encephalopathy Psych history & Paranoia h/o Prostate cancer CKD (chronic kidney disease), superimposed ARF / Dehydration h/o Hepatitis C h/o Dementia Plan start Midodrine D5w Hydrate monitor renal parameters keep BP and BS in check per orders Subjective ROS Limited/Unobtainable: No Constitutional: Reports: malaise, weakness Objective Objective Last 24 Hour Vital Signs Date Time Temp Pulse Resp B/P (MAP) Pulse Ox O2 Delivery O2 Flow Rate FiO2 02/21/19 12:00 97.5 51 19 117/67 (84) 99 02/21/19 09:00 Room Air 02/21/19 08:00 98.8 51 19 130/74 (92) 100 02/21/19 04:00 97.1 84 16 135/89 (104) 100 02/21/19 00:00 98.0 89 20 133/80 (97) 96 02/20/19 21:00 Room Air 02/20/19 20:00 98.2 76 18 123/65 (84) 97 Intake and Output 02/20/19 02/21/19 19:00 07:00 Intake Total 1100 ml 660 ml Output Total 800 ml Balance 1100 ml -140 ml Intake Free Water 150 ml IV Total 400 ml Tube Feeding 550 ml 660 ml Output Urine Total 800 ml # Voids 2 # Bowel Movements 1 3 Laboratory Tests 02/21/19 06:30: White Blood Count 6.3, Red Blood Count 3.64L, Hemoglobin 11.6L, Hematocrit 33.8L , Mean Corpuscular Volume 93, Mean Corpuscular Hemoglobin 31.9H, Mean Corpuscular Hemoglobin Concent 34.3, Red Cell Distribution Width 12.5, Platelet Count 220, Mean Platelet Volume 6.2L, Neutrophils (%) (Auto) 44.5L, Lymphocytes (%) (Auto) 41.0, Monocytes (%) (Auto) 10.5H, Eosinophils (%) (Auto) 3.2H, Basophils (%) (Auto) 0.7, Sodium Level 145, Potassium Level 4.3, Chloride Level 110H, Carbon Dioxide Level 31, Anion Gap 4L, Blood Urea Nitrogen 35H, Creatinine 1.6H, Estimat Glomerular Filtration Rate 52.2, Glucose Level 95, Calcium Level 8.9 Height (Feet): 5 Height (Inches): 6.00 Weight (Pounds): 109 General Appearance: no apparent distress Objective no change Tanner Grant MD February 21, 2019 17:01
--- NOTE | 2019-02-21 17:45 | Cardiac Electrophysiology PN ---
Assessment/Plan Assessment/Plan 1. Hypotension, Resolved on IV antibiotic and fluids. Echo , Nl EF. 2. Dementia. 3. Renal failure and hypernatremia with sodium 154 with a BUN of 99, creatinine 3.4. due to dehydration. On IV fluids. Cr down to 1.4 4. Dehydration. 5. Negative troponin. 6. S/P PEG by Dr Lizzie OBANDO RN Subjective Subjective Confused in restraints. RN at bedside. Placement pending Objective Last 24 Hour Vital Signs Date Time Temp Pulse Resp B/P (MAP) Pulse Ox O2 Delivery O2 Flow Rate FiO2 02/21/19 12:00 97.5 51 19 117/67 (84) 99 02/21/19 09:00 Room Air 02/21/19 08:00 98.8 51 19 130/74 (92) 100 02/21/19 04:00 97.1 84 16 135/89 (104) 100 02/21/19 00:00 98.0 89 20 133/80 (97) 96 02/20/19 21:00 Room Air 02/20/19 20:00 98.2 76 18 123/65 (84) 97 Intake and Output 02/20/19 02/21/19 19:00 07:00 Intake Total 1100 ml 660 ml Output Total 800 ml Balance 1100 ml -140 ml Intake Free Water 150 ml IV Total 400 ml Tube Feeding 550 ml 660 ml Output Urine Total 800 ml # Voids 2 # Bowel Movements 1 3 Laboratory Tests Test 02/21/19 06:30 White Blood Count 6.3 K/UL (4.8-10.8) Red Blood Count 3.64 M/UL (4.70-6.10) L Hemoglobin 11.6 G/DL (14.2-18.0) L Hematocrit 33.8 % (42.0-52.0) L Mean Corpuscular Volume 93 FL (80-99) Mean Corpuscular Hemoglobin 31.9 PG (27.0-31.0) H Mean Corpuscular Hemoglobin Concent 34.3 G/DL (32.0-36.0) Red Cell Distribution Width 12.5 % (11.6-14.8) Platelet Count 220 K/UL (150-450) Mean Platelet Volume 6.2 FL (6.5-10.1) L Neutrophils (%) (Auto) 44.5 % (45.0-75.0) L Lymphocytes (%) (Auto) 41.0 % (20.0-45.0) Monocytes (%) (Auto) 10.5 % (1.0-10.0) H Eosinophils (%) (Auto) 3.2 % (0.0-3.0) H Basophils (%) (Auto) 0.7 % (0.0-2.0) Sodium Level 145 MMOL/L (136-145) Potassium Level 4.3 MMOL/L (3.5-5.1) Chloride Level 110 MMOL/L (98-107) H Carbon Dioxide Level 31 MMOL/L (21-32) Anion Gap 4 mmol/L (5-15) L Blood Urea Nitrogen 35 mg/dL (7-18) H Creatinine 1.6 MG/DL (0.55-1.30) H Estimat Glomerular Filtration Rate 52.2 mL/min (>60) Glucose Level 95 MG/DL (74-106) Calcium Level 8.9 MG/DL (8.5-10.1) Objective HEAD AND NECK: No JVD. LUNGS: Coarse rhonchi. CARDIOVASCULAR: Regular S1 and S2 with no gallop or murmur. ABDOMEN: Soft.PEG in place EXTREMITIES: No pitting edema. Bryce Ba MD February 21, 2019 17:45
--- NOTE | 2019-02-21 18:30 | NUR ---
NURSE NOTES: patient awake ,talking but confused,being combative,patient had a moderate soft brown BM,skin care given,tiurned and position.HOB elevated,G-tube feedings on going as ordered,bed alarm on.
--- NOTE | 2019-02-21 19:41 | NUR ---
HAND-OFF: Report given to Inga CARMEN.
--- NOTE | 2019-02-21 19:42 | NUR ---
NURSE NOTES: Patient opens eyes to pain, sometimes to name, primarily nonverbal, occasional words, very contracted. respirations are unlabored.IV fluids infusing as ordered,G-tube feedings as ordered no residual noted, G tube in place .Condom catheter on and draining yellow urine.Bilateral soft non behavioral wrist restraints on as ordered, skin intact and no redness, pulses present. Bed alarm is on. Will continue to monitor.
[2019-02-21 20:00] VITALS: BP 116/75
[2019-02-21] MEDS: Morphine Sulfate 2mg/ml Inj(IV/IM USE ONLY) IVP PRN (22:15)
--- NOTE | 2019-02-21 22:27 | Psych Consult Progress Note ---
Psychiatry Progress Note Psychiatry Progress Note Medications Current Medications Medications (Trade) Dose Ordered Sig/Lucie Route PRN Reason Start Time Stop Time Status Last Admin Dose Admin Acetaminophen (Tylenol) 650 mg Q4H PRN ORAL Mild Pain/Temp > 100.5 02/12/19 08:15 03/14/19 08:14 02/14/19 00:45 Clonidine HCl (Catapres Tab) 0.1 mg Q4H PRN ORAL For High Blood Pressure 02/12/19 08:15 03/14/19 08:14 Dextrose 1,000 ml @ 50 mls/hr Q20H IV 02/16/19 16:00 03/14/19 15:59 02/21/19 22:25 Dextrose (Dextrose 50%) 25 ml Q30M PRN IV Hypoglycemia 02/12/19 08:15 03/14/19 08:14 Dextrose (Dextrose 50%) 50 ml Q30M PRN IV Hypoglycemia 02/12/19 08:15 03/14/19 08:14 Docusate Sodium (Colace) 100 mg TWICE A DAY GT 02/19/19 10:00 03/14/19 08:59 02/20/19 10:40 Haloperidol (Haldol) 5 mg Q6H PRN ORAL Agitation 02/12/19 08:30 03/14/19 08:29 02/12/19 16:20 Heparin Sodium (Porcine) (Heparin 5000 units/ml) 5,000 units EVERY 12 HOURS SUBQ 02/12/19 09:00 03/14/19 08:59 02/21/19 20:40 Lorazepam (Ativan 2mg/ml 1ml) 0.5 mg Q4H PRN IV For Anxiety 02/18/19 12:15 02/25/19 12:14 02/19/19 21:31 Midodrine (Pro-Amatine) 2.5 mg THREE TIMES A DAY GT 02/20/19 13:00 03/22/19 12:59 02/21/19 17:55 Morphine Sulfate (Morphine Sulfate) 1 mg Q4H PRN IVP For Pain 02/18/19 12:15 02/25/19 12:14 02/21/19 22:15 Olanzapine (ZyPREXA) 2.5 mg TID PRN ORAL agitation 02/13/19 11:00 03/14/19 13:59 Ondansetron HCl (Zofran) 4 mg Q6H PRN IVP Nausea & Vomiting 02/12/19 08:15 03/14/19 08:14 Polyethylene Glycol (Miralax) 17 gm HSPRN PRN ORAL Constipation 02/12/19 08:15 03/14/19 08:14 Tamsulosin HCl (Flomax) 0.4 mg BID ORAL 02/12/19 18:00 03/14/19 17:59 02/21/19 17:55 Valproic Acid (Depakene) 500 mg Q12HR GT 02/19/19 21:00 03/21/19 20:59 02/21/19 20:37 Zolpidem Tartrate (Ambien) 5 mg HSPRN PRN ORAL Insomnia 02/18/19 12:15 02/25/19 12:14 Neurological/Psychiatric: Reports: anxiety, depressed, emotional problems Allergies: Uncoded Allergies: anesthetics unspecified (Allergy, Mild, 02/12/19) sulfonamides (Allergy, Mild, rash, 02/12/19) Objective Data Height (Feet): 5 Height (Inches): 6.00 Weight (Pounds): 109 General Appearance: alert, confused, agitated Appearance: disheveled Behavior Mannerisms: poor eye contact Mental Status Exam - Affect: blunted Mental Status Exam - Mood: irritable, anxious, agitated Mental Status Exam - Thought P: tangential, confusion, disorganized Mental Status Exam - Thought C: delusions (specify) Perceptual Disturbances: hallucinations Mental Status Exam - Suicidal: not present Assessment/Plan Problem List: (1) Dementia with behavioral disturbance ICD Codes: F03.91 - Unspecified dementia with behavioral disturbance SNOMED: 7422548268782 Status: stable, progressing Assessment/Plan: zyprexa prn haldol prn depakote the pt lacks capacity to make decisions Mckenna Bermudez MD February 21, 2019 22:27
[2019-02-22] VITALS: BP 136/93
--- NOTE | 2019-02-22 02:45 | NUR ---
HAND-OFF: Report given to KERMIT De Leon
[2019-02-22 04:00] VITALS: BP 121/79
[2019-02-22 07:05] LABS: ALANINE AMINOTRANSFERASE 12 U/L (12-78); ALBUMIN 1.9 G/DL (3.4-5.0); ALBUMIN/GLOBULIN RATIO 0.4 (1.0-2.7); ALKALINE PHOSPHATASE 76 U/L (46-116); ANION GAP 5 mmol/L (5-15); ASPARTATE AMINO TRANSFERASE 28 U/L (15-37); BILIRUBIN,TOTAL 0.2 MG/DL (0.2-1.0); BLOOD UREA NITROGEN 28 mg/dL (7-18); CALCIUM 8.7 MG/DL (8.5-10.1); CARBON DIOXIDE 29 MMOL/L (21-32); CHLORIDE 107 MMOL/L (98-107); CREATININE 1.3 MG/DL (0.55-1.30); POTASSIUM 4.7 MMOL/L (3.5-5.1); SODIUM 141 MMOL/L (136-145)
--- NOTE | 2019-02-22 07:06 | NUR ---
HAND-OFF: Report given to KERMIT Guido.
[2019-02-22 07:09] LABS: BASOPHILS % (AUTO) 0.6 % (0.0-2.0); EOSINOPHILS % (AUTO) 2.8 % (0.0-3.0); HEMATOCRIT 34.1 % (42.0-52.0); HEMOGLOBIN 11.5 G/DL (14.2-18.0); LYMPHOCYTES % (AUTO) 39.8 % (20.0-45.0); MEAN CORPUSCULAR VOLUME 92 FL (80-99); MONOCYTES % (AUTO) 9.3 % (1.0-10.0); NEUTROPHILS % (AUTO) 47.5 % (45.0-75.0); PLATELET COUNT 252 K/UL (150-450); RED BLOOD COUNT 3.69 M/UL (4.70-6.10); RED CELL DISTRIBUTION WIDTH 12.2 % (11.6-14.8); WHITE BLOOD COUNT 7.2 K/UL (4.8-10.8)
[2019-02-22 07:14] LABS: PHOSPHORUS 2.8 MG/DL (2.5-4.9)
[2019-02-22 08:00] VITALS: BP 127/77
--- NOTE | 2019-02-22 08:11 | NUR ---
NURSE NOTES: Patient response to touch,opens eyes when name called, respiration unlabored.IV fluids infusing as ordered.G-tube feedings as ordered.Patient tolerating feedings,abdomen is soft,no residual noted at this time.Condom catheter is in place and draining yellow urine.HOB is elevated.Bed alarm is on.Patient spouse is in the room.
--- NOTE | 2019-02-22 08:51 | NUR ---
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 CKD . UTI VS: BP 136/93, P 82, T 97.4, RR 18, SpO2 96 BUN 28, RBC 3.69, H&H 11.5/34.1 IS:MIDODRINE 2.5mg FLOMAX 0.4mg VALPROIC ACID 500mg HEPARIN SUBQ D5 x1L IV MED/SURG STATUS
[2019-02-22] MEDS: Docusate 100mg/10ml Liq GT SCH ×2 (09:00→18:00)
[2019-02-22] MEDS: Tamsulosin 0.4mg cap ORAL SCH ×2 (09:25→18:49)
[2019-02-22] MEDS: Valproic Acid 250mg/5ml Liquid GT SCH ×2 (09:25→21:30)
[2019-02-22] MEDS: Heparin 5000 units/ml inj SUBQ SCH ×2 (09:27→21:32)
--- NOTE | 2019-02-22 10:17 | GI Progress Note ---
Assessment/Plan Problems: (1) Encounter for PEG (percutaneous endoscopic gastrostomy) ICD Codes: Z43.1 - Encounter for attention to gastrostomy SNOMED: 236004887, 308127313 (2) Hepatitis C ICD Codes: B19.20 - Unspecified viral hepatitis C without hepatic coma SNOMED: 32114303 (3) Failure to thrive syndrome, adult ICD Codes: R62.7 - Failure to thrive syndrome, adult SNOMED: 206716819 (4) Dementia with behavioral disturbance ICD Codes: F03.91 - Unspecified dementia with behavioral disturbance SNOMED: 8961006149094 (5) Ileus ICD Codes: K56.7 - Ileus, unspecified SNOMED: 525521663 Status: stable Status Narrative Discussed with Dr. Samuel. Assessment/Plan Status post PEG G-tube feedings per dietitian Continue antibiotics GT site care daily and as needed Elevate head of bed at all times PRN transfusion PPI Reglan as needed for GI motility DC planning The patient was seen and examined at bedside and all new and available data was reviewed in the patients chart. I agree with the above findings, impression and plan. (Patient seen earlier today. Signature stamp does not reflect patient encounter time.). - Min Samuel MD Subjective Subjective Limited Objective Last 24 Hour Vital Signs Date Time Temp Pulse Resp B/P (MAP) Pulse Ox O2 Delivery O2 Flow Rate FiO2 02/22/19 08:00 97.8 77 18 127/77 (94) 98 02/22/19 04:00 97.4 71 19 121/79 (93) 97 02/22/19 00:00 98.4 96 19 136/93 (107) 97 02/21/19 22:45 98.1 02/21/19 21:00 Room Air 02/21/19 20:00 98.2 69 18 116/75 (89) 96 02/21/19 16:00 98.1 66 16 109/67 (81) 99 02/21/19 12:00 97.5 51 19 117/67 (84) 99 Intake and Output 02/21/19 02/22/19 19:00 07:00 Intake Total 1560 ml 1355 ml Output Total 400 ml 540 ml Balance 1160 ml 815 ml Intake Free Water 300 ml 200 ml IV Total 600 ml 550 ml Tube Feeding 660 ml 605 ml Output Urine Total 540 ml Stool Total 400 ml # Voids 2 # Bowel Movements 5 4 Laboratory Tests Test 02/22/19 06:30 White Blood Count 7.2 K/UL (4.8-10.8) Red Blood Count 3.69 M/UL (4.70-6.10) L Hemoglobin 11.5 G/DL (14.2-18.0) L Hematocrit 34.1 % (42.0-52.0) L Mean Corpuscular Volume 92 FL (80-99) Mean Corpuscular Hemoglobin 31.2 PG (27.0-31.0) H Mean Corpuscular Hemoglobin Concent 33.8 G/DL (32.0-36.0) Red Cell Distribution Width 12.2 % (11.6-14.8) Platelet Count 252 K/UL (150-450) Mean Platelet Volume 6.2 FL (6.5-10.1) L Neutrophils (%) (Auto) 47.5 % (45.0-75.0) Lymphocytes (%) (Auto) 39.8 % (20.0-45.0) Monocytes (%) (Auto) 9.3 % (1.0-10.0) Eosinophils (%) (Auto) 2.8 % (0.0-3.0) Basophils (%) (Auto) 0.6 % (0.0-2.0) Sodium Level 141 MMOL/L (136-145) Potassium Level 4.7 MMOL/L (3.5-5.1) Chloride Level 107 MMOL/L (98-107) Carbon Dioxide Level 29 MMOL/L (21-32) Anion Gap 5 mmol/L (5-15) Blood Urea Nitrogen 28 mg/dL (7-18) H Creatinine 1.3 MG/DL (0.55-1.30) Estimat Glomerular Filtration Rate > 60 mL/min (>60) Glucose Level 107 MG/DL (74-106) H Calcium Level 8.7 MG/DL (8.5-10.1) Phosphorus Level 2.8 MG/DL (2.5-4.9) Magnesium Level 1.8 MG/DL (1.8-2.4) Total Bilirubin 0.2 MG/DL (0.2-1.0) Aspartate Amino Transf (AST/SGOT) 28 U/L (15-37) Alanine Aminotransferase (ALT/SGPT) 12 U/L (12-78) Alkaline Phosphatase 76 U/L (46-116) C-Reactive Protein, Quantitative 0.9 mg/dL (0.00-0.90) Pro-B-Type Natriuretic Peptide 846 pg/mL (0-125) H Total Protein 6.4 G/DL (6.4-8.2) Albumin 1.9 G/DL (3.4-5.0) L Globulin 4.5 g/dL Albumin/Globulin Ratio 0.4 (1.0-2.7) L Valproic Acid (Depakene) Level 49 MCG/ML (50-100) L Height (Feet): 5 Height (Inches): 6.00 Weight (Pounds): 109 General Appearance: WD/WN, no apparent distress, alert Cardiovascular: normal rate Respiratory/Chest: normal breath sounds, no respiratory distress Abdominal Exam: normal bowel sounds, non tender, soft, GT site - c/d/i Extremities: non-tender Daniel Zhu NP February 22, 2019 10:16
[2019-02-22 12:00] VITALS: BP 122/74
--- NOTE | 2019-02-22 12:28 | Cardiac Electrophysiology PN ---
Assessment/Plan Assessment/Plan 1. Hypotension, resolved on IV antibiotic and fluids. Echo , Nl EF. 2. Dementia. 3. Renal failure and hypernatremia with sodium 154 with a BUN of 99, creatinine 3.4. due to dehydration. On IV fluids. Cr down to 1.4 4. Dehydration. 5. Negative troponin. 6. S/P PEG by Dr. Lizzie OBANDO RN Subjective Subjective Confused in restraints. at bedside. No events Objective Last 24 Hour Vital Signs Date Time Temp Pulse Resp B/P (MAP) Pulse Ox O2 Delivery O2 Flow Rate FiO2 02/22/19 09:00 Room Air 02/22/19 08:00 97.8 77 18 127/77 (94) 98 02/22/19 04:00 97.4 71 19 121/79 (93) 97 02/22/19 00:00 98.4 96 19 136/93 (107) 97 02/21/19 22:45 98.1 02/21/19 21:00 Room Air 02/21/19 20:00 98.2 69 18 116/75 (89) 96 02/21/19 16:00 98.1 66 16 109/67 (81) 99 Intake and Output 02/21/19 02/22/19 19:00 07:00 Intake Total 1560 ml 1355 ml Output Total 400 ml 540 ml Balance 1160 ml 815 ml Intake Free Water 300 ml 200 ml IV Total 600 ml 550 ml Tube Feeding 660 ml 605 ml Output Urine Total 540 ml Stool Total 400 ml # Voids 2 # Bowel Movements 5 4 Laboratory Tests Test 02/22/19 06:30 White Blood Count 7.2 K/UL (4.8-10.8) Red Blood Count 3.69 M/UL (4.70-6.10) L Hemoglobin 11.5 G/DL (14.2-18.0) L Hematocrit 34.1 % (42.0-52.0) L Mean Corpuscular Volume 92 FL (80-99) Mean Corpuscular Hemoglobin 31.2 PG (27.0-31.0) H Mean Corpuscular Hemoglobin Concent 33.8 G/DL (32.0-36.0) Red Cell Distribution Width 12.2 % (11.6-14.8) Platelet Count 252 K/UL (150-450) Mean Platelet Volume 6.2 FL (6.5-10.1) L Neutrophils (%) (Auto) 47.5 % (45.0-75.0) Lymphocytes (%) (Auto) 39.8 % (20.0-45.0) Monocytes (%) (Auto) 9.3 % (1.0-10.0) Eosinophils (%) (Auto) 2.8 % (0.0-3.0) Basophils (%) (Auto) 0.6 % (0.0-2.0) Sodium Level 141 MMOL/L (136-145) Potassium Level 4.7 MMOL/L (3.5-5.1) Chloride Level 107 MMOL/L (98-107) Carbon Dioxide Level 29 MMOL/L (21-32) Anion Gap 5 mmol/L (5-15) Blood Urea Nitrogen 28 mg/dL (7-18) H Creatinine 1.3 MG/DL (0.55-1.30) Estimat Glomerular Filtration Rate > 60 mL/min (>60) Glucose Level 107 MG/DL (74-106) H Calcium Level 8.7 MG/DL (8.5-10.1) Phosphorus Level 2.8 MG/DL (2.5-4.9) Magnesium Level 1.8 MG/DL (1.8-2.4) Total Bilirubin 0.2 MG/DL (0.2-1.0) Aspartate Amino Transf (AST/SGOT) 28 U/L (15-37) Alanine Aminotransferase (ALT/SGPT) 12 U/L (12-78) Alkaline Phosphatase 76 U/L (46-116) C-Reactive Protein, Quantitative 0.9 mg/dL (0.00-0.90) Pro-B-Type Natriuretic Peptide 846 pg/mL (0-125) H Total Protein 6.4 G/DL (6.4-8.2) Albumin 1.9 G/DL (3.4-5.0) L Globulin 4.5 g/dL Albumin/Globulin Ratio 0.4 (1.0-2.7) L Valproic Acid (Depakene) Level 49 MCG/ML (50-100) L Objective HEAD AND NECK: No JVD. LUNGS: Coarse rhonchi. CARDIOVASCULAR: Regular S1 and S2 with no gallop or murmur. ABDOMEN: Soft.PEG in place EXTREMITIES: No pitting edema. Bryce Ba MD February 22, 2019 12:28
--- NOTE | 2019-02-22 13:16 | NUR ---
RD ASSESSMENT & RECOMMENDATIONS SEE CARE ACTIVITY FOR COMPLETE ASSESSMENT DAILY ESTIMATED NEEDS: Needs based on ARF, UNDERWEIGHT/ 49kg 30-35 kcals/kg 7585-7652 total kcals 1-1.5 g protein/kg 49-74 g total protein 25-30 mL/kg 6833-1487 total fluid mLs NUTRITION DIAGNOSIS: * Increased kcal/prot needs R/T recent wt loss, underweight status as evidenced by possible significant wt loss of ~30lbs/ 21% in 8 months. pt @ 77% IBW w/ underweight BMI per guidelines, pt is now S/P PEG . * Altered nutrition related lab values R/T ARF, volume deficit as evidenced by elev BUN (92-> 45-> 28), elev creat (3.1-> 2.0-> wnl), elev Na (155-> wnl). CURRENT TF:Glucerna 1.2 @55ml/hr x24 hrs ENTERAL NUTRITION RECOMMENDATIONS: Glucerna 1.2 @55ml/hr x24 hrs to provide 1320ml, 1584 kcal, 79g pro, 1063ml isxiV6M - Maintain current TF order - Flush per , JORGE over 30 degrees. ADDITIONAL RECOMMENDATIONS: 1) Lytes daily w/ TF 2) WOUND CARE: add Efrain 1ptk BID 3) S/p PEG Placement, please RE-calibrate bed scale to monitor efficacy of TF rate. + WEEKLY WEIGHTS 4) Hypoglycemics prn, niss for BG control w/ TF (A1C=6.0) .
--- NOTE | 2019-02-22 13:35 | Pulmonology Progress Note ---
Assessment/Plan Problems: (1) Acute encephalopathy (2) Sepsis (3) ATN (acute tubular necrosis) (4) Pyelonephritis (5) Prostate cancer (6) Cerebral vascular disease (7) Methadone maintenance therapy patient (8) HTN (hypertension) (9) Hepatitis C Assessment/Plan doing better more awake all reviewed PEG in place, tolerating feeding bun/creatinine improving neuro consult appreciated more awake now iv fluids check cultures neuro f/u Subjective ROS Limited/Unobtainable: No Constitutional: Reports: no symptoms HEENT: Repors: no symptoms Respiratory: Reports: no symptoms Allergies: Uncoded Allergies: anesthetics unspecified (Allergy, Mild, 02/12/19) sulfonamides (Allergy, Mild, rash, 02/12/19) Objective Last 24 Hour Vital Signs Date Time Temp Pulse Resp B/P (MAP) Pulse Ox O2 Delivery O2 Flow Rate FiO2 02/22/19 09:00 Room Air 02/22/19 08:00 97.8 77 18 127/77 (94) 98 02/22/19 04:00 97.4 71 19 121/79 (93) 97 02/22/19 00:00 98.4 96 19 136/93 (107) 97 02/21/19 22:45 98.1 02/21/19 21:00 Room Air 02/21/19 20:00 98.2 69 18 116/75 (89) 96 02/21/19 16:00 98.1 66 16 109/67 (81) 99 Intake and Output 02/21/19 02/22/19 19:00 07:00 Intake Total 1560 ml 1355 ml Output Total 400 ml 540 ml Balance 1160 ml 815 ml Intake Free Water 300 ml 200 ml IV Total 600 ml 550 ml Tube Feeding 660 ml 605 ml Output Urine Total 540 ml Stool Total 400 ml # Voids 2 # Bowel Movements 5 4 Objective General Appearance: cachectic Lines, tubes and drains: peripheral HEENT: normocephalic, atraumatic Neck: non-tender, normal alignment Respiratory/Chest: chest wall non-tender, lungs clear Cardiovascular/Chest: normal peripheral pulses, normal rate Abdomen: normal bowel sounds Extremities: normal range of motion Laboratory Tests 02/22/19 06:30: White Blood Count 7.2, Red Blood Count 3.69L, Hemoglobin 11.5L, Hematocrit 34.1L , Mean Corpuscular Volume 92, Mean Corpuscular Hemoglobin 31.2H, Mean Corpuscular Hemoglobin Concent 33.8, Red Cell Distribution Width 12.2, Platelet Count 252, Mean Platelet Volume 6.2L, Neutrophils (%) (Auto) 47.5, Lymphocytes ( %) (Auto) 39.8, Monocytes (%) (Auto) 9.3, Eosinophils (%) (Auto) 2.8, Basophils (%) (Auto) 0.6, Sodium Level 141, Potassium Level 4.7, Chloride Level 107, Carbon Dioxide Level 29, Anion Gap 5, Blood Urea Nitrogen 28H, Creatinine 1.3, Estimat Glomerular Filtration Rate > 60, Glucose Level 107H, Calcium Level 8.7, Phosphorus Level 2.8, Magnesium Level 1.8, Total Bilirubin 0.2, Aspartate Amino Transf (AST/SGOT) 28, Alanine Aminotransferase (ALT/SGPT) 12, Alkaline Phosphatase 76, C-Reactive Protein, Quantitative 0.9, Pro-B-Type Natriuretic Peptide 846H, Total Protein 6.4, Albumin 1.9L, Globulin 4.5, Albumin/Globulin Ratio 0.4L, Valproic Acid (Depakene) Level 49L Current Medications Medications (Trade) Dose Ordered Sig/Lucie Route PRN Reason Start Time Stop Time Status Last Admin Dose Admin Acetaminophen (Tylenol) 650 mg Q4H PRN ORAL Mild Pain/Temp > 100.5 02/12/19 08:15 03/14/19 08:14 02/14/19 00:45 Clonidine HCl (Catapres Tab) 0.1 mg Q4H PRN ORAL For High Blood Pressure 02/12/19 08:15 03/14/19 08:14 Dextrose 1,000 ml @ 50 mls/hr Q20H IV 02/16/19 16:00 03/14/19 15:59 02/21/19 22:25 Dextrose (Dextrose 50%) 25 ml Q30M PRN IV Hypoglycemia 02/12/19 08:15 03/14/19 08:14 Dextrose (Dextrose 50%) 50 ml Q30M PRN IV Hypoglycemia 02/12/19 08:15 03/14/19 08:14 Docusate Sodium (Colace) 100 mg TWICE A DAY GT 02/19/19 10:00 03/14/19 08:59 02/20/19 10:40 Haloperidol (Haldol) 5 mg Q6H PRN ORAL Agitation 02/12/19 08:30 03/14/19 08:29 02/12/19 16:20 Heparin Sodium (Porcine) (Heparin 5000 units/ml) 5,000 units EVERY 12 HOURS SUBQ 02/12/19 09:00 03/14/19 08:59 02/22/19 09:27 Lorazepam (Ativan 2mg/ml 1ml) 0.5 mg Q4H PRN IV For Anxiety 02/18/19 12:15 02/25/19 12:14 02/19/19 21:31 Midodrine (Pro-Amatine) 2.5 mg THREE TIMES A DAY GT 02/20/19 13:00 03/22/19 12:59 02/22/19 09:25 Morphine Sulfate (Morphine Sulfate) 1 mg Q4H PRN IVP For Pain 02/18/19 12:15 02/25/19 12:14 02/21/19 22:15 Olanzapine (ZyPREXA) 2.5 mg TID PRN ORAL agitation 02/13/19 11:00 03/14/19 13:59 Ondansetron HCl (Zofran) 4 mg Q6H PRN IVP Nausea & Vomiting 02/12/19 08:15 03/14/19 08:14 Polyethylene Glycol (Miralax) 17 gm HSPRN PRN ORAL Constipation 02/12/19 08:15 03/14/19 08:14 Tamsulosin HCl (Flomax) 0.4 mg BID ORAL 02/12/19 18:00 03/14/19 17:59 02/22/19 09:25 Valproic Acid (Depakene) 500 mg Q12HR GT 02/19/19 21:00 03/21/19 20:59 02/22/19 09:25 Zolpidem Tartrate (Ambien) 5 mg HSPRN PRN ORAL Insomnia 02/18/19 12:15 02/25/19 12:14 German Mooney MD February 22, 2019 13:35
--- NOTE | 2019-02-22 13:39 | General Progress Note ---
Assessment/Plan Problem List: (1) UTI (urinary tract infection) ICD Codes: N39.0 - Urinary tract infection, site not specified SNOMED: 91376536 (2) CKD (chronic kidney disease) ICD Codes: N18.9 - CKD (chronic kidney disease) SNOMED: 259194360 (3) ARF (acute renal failure) ICD Codes: N17.9 - ARF (acute renal failure) SNOMED: 74184238 (4) Failure to thrive syndrome, adult ICD Codes: R62.7 - Failure to thrive syndrome, adult SNOMED: 669737652 (5) Hepatitis C ICD Codes: B19.20 - Unspecified viral hepatitis C without hepatic coma SNOMED: 52674231 (6) HTN (hypertension) ICD Codes: I10 - Essential (primary) hypertension SNOMED: 41348032 Status: stable, progressing Assessment/Plan: pt diet abx gi eval cbc bmp am dc plan snf Subjective Constitutional: Reports: weakness Allergies: Uncoded Allergies: anesthetics unspecified (Allergy, Mild, 02/12/19) sulfonamides (Allergy, Mild, rash, 02/12/19) All Systems: reviewed and negative except above Subjective o2nc sleepy calm Objective Last 24 Hour Vital Signs Date Time Temp Pulse Resp B/P (MAP) Pulse Ox O2 Delivery O2 Flow Rate FiO2 02/22/19 09:00 Room Air 02/22/19 08:00 97.8 77 18 127/77 (94) 98 02/22/19 04:00 97.4 71 19 121/79 (93) 97 02/22/19 00:00 98.4 96 19 136/93 (107) 97 02/21/19 22:45 98.1 02/21/19 21:00 Room Air 02/21/19 20:00 98.2 69 18 116/75 (89) 96 02/21/19 16:00 98.1 66 16 109/67 (81) 99 Intake and Output 02/21/19 02/22/19 19:00 07:00 Intake Total 1560 ml 1355 ml Output Total 400 ml 540 ml Balance 1160 ml 815 ml Intake Free Water 300 ml 200 ml IV Total 600 ml 550 ml Tube Feeding 660 ml 605 ml Output Urine Total 540 ml Stool Total 400 ml # Voids 2 # Bowel Movements 5 4 Laboratory Tests 02/22/19 06:30: White Blood Count 7.2, Red Blood Count 3.69L, Hemoglobin 11.5L, Hematocrit 34.1L , Mean Corpuscular Volume 92, Mean Corpuscular Hemoglobin 31.2H, Mean Corpuscular Hemoglobin Concent 33.8, Red Cell Distribution Width 12.2, Platelet Count 252, Mean Platelet Volume 6.2L, Neutrophils (%) (Auto) 47.5, Lymphocytes ( %) (Auto) 39.8, Monocytes (%) (Auto) 9.3, Eosinophils (%) (Auto) 2.8, Basophils (%) (Auto) 0.6, Sodium Level 141, Potassium Level 4.7, Chloride Level 107, Carbon Dioxide Level 29, Anion Gap 5, Blood Urea Nitrogen 28H, Creatinine 1.3, Estimat Glomerular Filtration Rate > 60, Glucose Level 107H, Calcium Level 8.7, Phosphorus Level 2.8, Magnesium Level 1.8, Total Bilirubin 0.2, Aspartate Amino Transf (AST/SGOT) 28, Alanine Aminotransferase (ALT/SGPT) 12, Alkaline Phosphatase 76, C-Reactive Protein, Quantitative 0.9, Pro-B-Type Natriuretic Peptide 846H, Total Protein 6.4, Albumin 1.9L, Globulin 4.5, Albumin/Globulin Ratio 0.4L, Valproic Acid (Depakene) Level 49L Height (Feet): 5 Height (Inches): 6.00 Weight (Pounds): 109 General Appearance: lethargic EENT: normal ENT inspection Neck: normal alignment Cardiovascular: normal peripheral pulses, normal rate, regular rhythm Respiratory/Chest: chest wall non-tender, lungs clear, normal breath sounds Abdomen: normal bowel sounds, non tender, soft Extremities: normal inspection Edema: no edema noted Arm (L), no edema noted Arm (R), no edema noted Leg (L), no edema noted Leg (R), no edema noted Pedal (L), no edema noted Pedal (R), no edema noted Generalized Neurologic: motor weakness Skin: normal pigmentation, warm/dry Jaleel Moon DO February 22, 2019 13:39
--- NOTE | 2019-02-22 15:35 | Nephrology Progress Note ---
Assessment/Plan Problem List: (1) ARF (acute renal failure) Assessment: cr lowering (2) CKD (chronic kidney disease) (3) Failure to thrive syndrome, adult (4) Hypernatremia Assessment Acute encephalopathy Psych history & Paranoia h/o Prostate cancer CKD (chronic kidney disease), superimposed ARF / Dehydration h/o Hepatitis C h/o Dementia Plan start Midodrine D5w Hydrate monitor renal parameters keep BP and BS in check per orders Subjective ROS Limited/Unobtainable: No Objective Objective Last 24 Hour Vital Signs Date Time Temp Pulse Resp B/P (MAP) Pulse Ox O2 Delivery O2 Flow Rate FiO2 02/22/19 12:00 98.4 82 18 122/74 (90) 98 02/22/19 09:00 Room Air 02/22/19 08:00 97.8 77 18 127/77 (94) 98 02/22/19 04:00 97.4 71 19 121/79 (93) 97 02/22/19 00:00 98.4 96 19 136/93 (107) 97 02/21/19 22:45 98.1 02/21/19 21:00 Room Air 02/21/19 20:00 98.2 69 18 116/75 (89) 96 02/21/19 16:00 98.1 66 16 109/67 (81) 99 Intake and Output 02/21/19 02/22/19 19:00 07:00 Intake Total 1560 ml 1355 ml Output Total 400 ml 540 ml Balance 1160 ml 815 ml Intake Free Water 300 ml 200 ml IV Total 600 ml 550 ml Tube Feeding 660 ml 605 ml Output Urine Total 540 ml Stool Total 400 ml # Voids 2 # Bowel Movements 5 4 Laboratory Tests 02/22/19 06:30: White Blood Count 7.2, Red Blood Count 3.69L, Hemoglobin 11.5L, Hematocrit 34.1L , Mean Corpuscular Volume 92, Mean Corpuscular Hemoglobin 31.2H, Mean Corpuscular Hemoglobin Concent 33.8, Red Cell Distribution Width 12.2, Platelet Count 252, Mean Platelet Volume 6.2L, Neutrophils (%) (Auto) 47.5, Lymphocytes ( %) (Auto) 39.8, Monocytes (%) (Auto) 9.3, Eosinophils (%) (Auto) 2.8, Basophils (%) (Auto) 0.6, Sodium Level 141, Potassium Level 4.7, Chloride Level 107, Carbon Dioxide Level 29, Anion Gap 5, Blood Urea Nitrogen 28H, Creatinine 1.3, Estimat Glomerular Filtration Rate > 60, Glucose Level 107H, Calcium Level 8.7, Phosphorus Level 2.8, Magnesium Level 1.8, Total Bilirubin 0.2, Aspartate Amino Transf (AST/SGOT) 28, Alanine Aminotransferase (ALT/SGPT) 12, Alkaline Phosphatase 76, C-Reactive Protein, Quantitative 0.9, Pro-B-Type Natriuretic Peptide 846H, Total Protein 6.4, Albumin 1.9L, Globulin 4.5, Albumin/Globulin Ratio 0.4L, Valproic Acid (Depakene) Level 49L Height (Feet): 5 Height (Inches): 6.00 Weight (Pounds): 109 General Appearance: no apparent distress Objective no change Tanner Grant MD February 22, 2019 15:35
[2019-02-22 16:10] VITALS: BP 127/75
--- NOTE | 2019-02-22 19:00 | NUR ---
NURSE NOTES: Bed alarm on.HOB is elevated.
--- NOTE | 2019-02-22 19:00 | NUR ---
NURSE NOTES: Patient resting,continues to respond to touch.patent was up with physical Thearpy today and sat up at bedside.Patient continues to tolerate G-tube feedings.
--- NOTE | 2019-02-22 19:45 | NUR ---
HAND-OFF: Report given to Inga CARMEN.
--- NOTE | 2019-02-22 19:50 | NUR ---
NURSE NOTES: Patient opens eyes to pain, sometimes to name, primarily nonverbal, occasional words, inappropriate. very contracted. respirations are unlabored.IV fluids infusing as ordered,G-tube feedings as ordered no residual noted, G tube in place .Condom catheter on and draining yellow urine.Bilateral soft non behavioral wrist restraints on as ordered, skin intact and no redness, pulses present. Bed alarm is on. Will continue to monitor.
[2019-02-22 20:00] VITALS: BP 122/71
--- NOTE | 2019-02-22 22:07 | Neurology Progress Note ---
Interim History Interim History ROS Limited/Unobtainable: Yes Complaints: AMS Interim History Patient remains confused and only intermittently follows commands Review of Systems All Systems: reviewed and negative except above Objective Physical Exam Last Vital Signs Date Time Temp Pulse Resp B/P (MAP) Pulse Ox O2 Delivery O2 Flow Rate FiO2 02/22/19 21:03 Nasal Cannula 2.0 28 02/22/19 21:02 71 20 02/22/19 20:00 98.1 122/71 (88) 96 Laboratory Tests Test 02/22/19 06:30 White Blood Count 7.2 K/UL (4.8-10.8) Red Blood Count 3.69 M/UL (4.70-6.10) L Hemoglobin 11.5 G/DL (14.2-18.0) L Hematocrit 34.1 % (42.0-52.0) L Mean Corpuscular Volume 92 FL (80-99) Mean Corpuscular Hemoglobin 31.2 PG (27.0-31.0) H Mean Corpuscular Hemoglobin Concent 33.8 G/DL (32.0-36.0) Red Cell Distribution Width 12.2 % (11.6-14.8) Platelet Count 252 K/UL (150-450) Mean Platelet Volume 6.2 FL (6.5-10.1) L Neutrophils (%) (Auto) 47.5 % (45.0-75.0) Lymphocytes (%) (Auto) 39.8 % (20.0-45.0) Monocytes (%) (Auto) 9.3 % (1.0-10.0) Eosinophils (%) (Auto) 2.8 % (0.0-3.0) Basophils (%) (Auto) 0.6 % (0.0-2.0) Sodium Level 141 MMOL/L (136-145) Potassium Level 4.7 MMOL/L (3.5-5.1) Chloride Level 107 MMOL/L (98-107) Carbon Dioxide Level 29 MMOL/L (21-32) Anion Gap 5 mmol/L (5-15) Blood Urea Nitrogen 28 mg/dL (7-18) H Creatinine 1.3 MG/DL (0.55-1.30) Estimat Glomerular Filtration Rate > 60 mL/min (>60) Glucose Level 107 MG/DL (74-106) H Calcium Level 8.7 MG/DL (8.5-10.1) Phosphorus Level 2.8 MG/DL (2.5-4.9) Magnesium Level 1.8 MG/DL (1.8-2.4) Total Bilirubin 0.2 MG/DL (0.2-1.0) Aspartate Amino Transf (AST/SGOT) 28 U/L (15-37) Alanine Aminotransferase (ALT/SGPT) 12 U/L (12-78) Alkaline Phosphatase 76 U/L (46-116) C-Reactive Protein, Quantitative 0.9 mg/dL (0.00-0.90) Pro-B-Type Natriuretic Peptide 846 pg/mL (0-125) H Total Protein 6.4 G/DL (6.4-8.2) Albumin 1.9 G/DL (3.4-5.0) L Globulin 4.5 g/dL Albumin/Globulin Ratio 0.4 (1.0-2.7) L Valproic Acid (Depakene) Level 49 MCG/ML (50-100) L General: other Head: normocophalic, other Neck: no rigidity EENT: benign Neurologic Exam Mental Status: awake Speech: other Language: other Cranial Nerve II: no papilledema Cranial Nerves III, IV, : PERRLA, EOMI Cranial Nerve VII: no facial asymmetry Cranial Nerve VIII: normal hearing Cranial Nerve XI: SCM symmetric Cranial Nerve XII: tongue midline Motor System: strength 5/5 Sensory: normal pinprick, normal light touch Objective Exam remains non focal and abnormal - patient continues to be able to move all extremities with equal strength to command or localizing in response to noxious stimuli. However, not verbalizing normally, not tracking with eyes, pupils are now equal, 3+ and sluggishly reactive Impression/Recommendations Problems: (1) Dementia with behavioral disturbance Assessment & Plan: Exam more lethargic -possible secondary to procedure today. Will follow. (2) UTI (urinary tract infection) Assessment & Plan: Abx as per ID (3) Acute encephalopathy Assessment & Plan: EEG 02/18/19 This is an abnormal EEG characterized by: 1. Slowing of the background in the 4-5 Hz theta and 1.5-2 Hz delta range. 2. The presence of slow sleep spindles seen in the frontocentral region. No evidence of seizures, but severely moderate encephalopathy correlating to behavioral disturbance and possible delirium/ psychosis. (4) Failure to thrive syndrome, adult Assessment & Plan: S/P PEG on enteral feeds now (5) Acute hypoactive delirium due to multiple etiologies Assessment & Plan: Consider changing current psychotropic regimen - Seroquel not appearing to be effective. (6) Dementia, vascular Status: stable, progressing Recommendations Maintain normothermia Abx as per ID Na 135-145 Maintain sleep hygiene for patient - recommend Melatonin 3mg QHS Avoid use of benzodiazapenes, anticholinergics, and opioid narcotics. May utilize Seroquel 25mg QD/ QHS for behavioral agitation. Daytime stimulation of patient with PT may be helpful . Lydia Obrien N.P. February 22, 2019 21:52
--- NOTE | 2019-02-22 22:30 | Progress Note ---
DATE: 02/22/2019 SUBJECTIVE: The patient is asleep and arousable. Continues to be confused, has episodes of agitation. Poor insight and judgment into his mental condition. The patient still needs recurrent redirection throughout the day. MENTAL STATUS EXAM: The patient is alert and confused. Mood is dysphoric. Affect is constricted. Congruent with mood. Thought process is concrete. Thought content, no suicidal or homicidal ideations. ASSESSMENT: 1. Dementia with behavior disturbance. 2. Schizophrenia. PLAN: We will continue current medications. Provide the patient with reality orientation and supportive therapy. We will continue current medication. Mckenna Bermudez M.D. DR: NAS JOB#: [id number] CC:
[2019-02-23] VITALS (7 sets, daily range): BP systolic 104–144; BP diastolic 71–97
[2019-02-23 06:55] LABS: ANION GAP 1 mmol/L (5-15); BLOOD UREA NITROGEN 24 mg/dL (7-18); CALCIUM 8.7 MG/DL (8.5-10.1); CARBON DIOXIDE 31 MMOL/L (21-32); CHLORIDE 104 MMOL/L (98-107); CREATININE 1.4 MG/DL (0.55-1.30); POTASSIUM 4.8 MMOL/L (3.5-5.1); SODIUM 136 MMOL/L (136-145)
[2019-02-23 07:04] LABS: BASOPHILS % (AUTO) 0.6 % (0.0-2.0); EOSINOPHILS % (AUTO) 2.1 % (0.0-3.0); HEMATOCRIT 33.2 % (42.0-52.0); HEMOGLOBIN 11.5 G/DL (14.2-18.0); LYMPHOCYTES % (AUTO) 45.2 % (20.0-45.0); MEAN CORPUSCULAR VOLUME 91 FL (80-99); MONOCYTES % (AUTO) 10.8 % (1.0-10.0); NEUTROPHILS % (AUTO) 41.4 % (45.0-75.0); PLATELET COUNT 257 K/UL (150-450); RED BLOOD COUNT 3.65 M/UL (4.70-6.10); WHITE BLOOD COUNT 7.4 K/UL (4.8-10.8)
--- NOTE | 2019-02-23 07:34 | NUR ---
HAND-OFF: Report given to Jaelyn CARMEN.
--- NOTE | 2019-02-23 07:35 | NUR ---
NURSE NOTES: received patient in bed, eyes close, response to touch,opens eyes when name called,no sign of distress, IV fluids infusing well but I stopped , IV site is wollen, tolerating feeding well ,abdomen is soft,no residual noted at this time.Condom catheter is in place and draining yellow urine.HOB is elevated.on aspiration , fall and pressure ulcer precaution , Bed alarm is on. at bedside, kept clean dry and intact nichelle frazier
[2019-02-23] MEDS: Docusate 100mg/10ml Liq GT SCH ×2 (08:47→17:16)
[2019-02-23] MEDS: Heparin 5000 units/ml inj SUBQ SCH ×2 (08:47→20:59)
[2019-02-23] MEDS: Tamsulosin 0.4mg cap ORAL SCH ×2 (08:47→17:16)
[2019-02-23] MEDS: Valproic Acid 250mg/5ml Liquid GT SCH ×2 (08:47→20:58)
--- NOTE | 2019-02-23 09:49 | NUR ---
[employer] SI:ARF . CKD . UTI VS: BP 144/97, P 96, T 98.7, RR 20, SpO2 99 RBC 3.65, H&H 11.5/33.2, BUN 27, Cr 1.4 IS:D5W x1L IV MORPHINE SULFATE 1mg IVP MIDODRINE 2.5mg VALPROIC ACID 500mg HEPARIN SUBQ MED/SURG STATUS
--- NOTE | 2019-02-23 10:12 | GI Progress Note ---
Assessment/Plan Problems: (1) Encounter for PEG (percutaneous endoscopic gastrostomy) ICD Codes: Z43.1 - Encounter for attention to gastrostomy SNOMED: 706758001, 455081234 (2) Hepatitis C ICD Codes: B19.20 - Unspecified viral hepatitis C without hepatic coma SNOMED: 24771693 (3) Failure to thrive syndrome, adult ICD Codes: R62.7 - Failure to thrive syndrome, adult SNOMED: 962149423 (4) Dementia with behavioral disturbance ICD Codes: F03.91 - Unspecified dementia with behavioral disturbance SNOMED: 6814717395110 (5) Ileus ICD Codes: K56.7 - Ileus, unspecified SNOMED: 157717094 Status: stable, unchanged Status Narrative Discussed with Dr. Samuel Assessment/Plan Status post PEG G-tube feedings per dietitian Continue antibiotics GT site care daily and as needed Elevate head of bed at all times PRN transfusion PPI Reglan as needed for GI motility DC planning The patient was seen and examined at bedside and all new and available data was reviewed in the patients chart. I agree with the above findings, impression and plan. (Patient seen earlier today. Signature stamp does not reflect patient encounter time.). - Min Samuel MD Subjective Subjective Limited Objective Last 24 Hour Vital Signs Date Time Temp Pulse Resp B/P (MAP) Pulse Ox O2 Delivery O2 Flow Rate FiO2 02/23/19 09:06 Room Air 02/23/19 08:25 98 Nasal Cannula 2.0 28 02/23/19 08:25 71 20 Nasal Cannula 2.0 28 02/23/19 08:25 Nasal Cannula 2.0 28 02/23/19 08:00 98.1 68 18 115/71 (86) 98 02/23/19 04:00 97.4 68 18 104/72 (83) 99 02/23/19 00:00 98.3 83 18 125/77 (93) 95 02/22/19 21:03 Nasal Cannula 2.0 28 02/22/19 21:02 71 20 Nasal Cannula 2.0 28 02/22/19 21:00 Room Air 02/22/19 20:00 98.1 73 18 122/71 (88) 96 02/22/19 16:10 98.6 79 18 127/75 (92) 98 02/22/19 12:00 98.4 82 18 122/74 (90) 98 Intake and Output 02/22/19 02/23/19 19:00 07:00 Intake Total 1355 ml 100 ml Output Total 200 ml Balance 1355 ml -100 ml Intake Free Water 200 ml IV Total 550 ml 100 ml Tube Feeding 605 ml Output Urine Total 200 ml # Bowel Movements 2 1 Laboratory Tests Test 02/23/19 06:20 White Blood Count 7.4 K/UL (4.8-10.8) Red Blood Count 3.65 M/UL (4.70-6.10) L Hemoglobin 11.5 G/DL (14.2-18.0) L Hematocrit 33.2 % (42.0-52.0) L Mean Corpuscular Volume 91 FL (80-99) Mean Corpuscular Hemoglobin 31.6 PG (27.0-31.0) H Mean Corpuscular Hemoglobin Concent 34.7 G/DL (32.0-36.0) Red Cell Distribution Width 12.0 % (11.6-14.8) Platelet Count 257 K/UL (150-450) Mean Platelet Volume 5.7 FL (6.5-10.1) L Neutrophils (%) (Auto) 41.4 % (45.0-75.0) L Lymphocytes (%) (Auto) 45.2 % (20.0-45.0) H Monocytes (%) (Auto) 10.8 % (1.0-10.0) H Eosinophils (%) (Auto) 2.1 % (0.0-3.0) Basophils (%) (Auto) 0.6 % (0.0-2.0) Sodium Level 136 MMOL/L (136-145) Potassium Level 4.8 MMOL/L (3.5-5.1) Chloride Level 104 MMOL/L (98-107) Carbon Dioxide Level 31 MMOL/L (21-32) Anion Gap 1 mmol/L (5-15) L Blood Urea Nitrogen 24 mg/dL (7-18) H Creatinine 1.4 MG/DL (0.55-1.30) H Estimat Glomerular Filtration Rate > 60 mL/min (>60) Glucose Level 104 MG/DL (74-106) Calcium Level 8.7 MG/DL (8.5-10.1) Height (Feet): 5 Height (Inches): 6.00 Weight (Pounds): 109 General Appearance: no apparent distress Cardiovascular: normal rate Respiratory/Chest: normal breath sounds, no respiratory distress Abdominal Exam: normal bowel sounds, non tender, soft, GT site - Clean dry and intact Extremities: non-tender Daniel Zhu NP February 23, 2019 10:12
--- NOTE | 2019-02-23 10:23 | Cardiac Electrophysiology PN ---
Assessment/Plan Assessment/Plan 1. Hypotension, resolved with IV antibiotic and fluids. Echo , Nl EF. No [place] 2. Dementia. 3. Renal failure and hypernatremia with sodium 154 with a BUN of 99, creatinine 3.4. due to dehydration. Resolved with IV fluids. 4. Dehydration. 5. S/P PEG by Dr. Lizzie OBANDO RN Subjective Subjective Confused in restraints. No events. GT feeding ongoing Objective Last 24 Hour Vital Signs Date Time Temp Pulse Resp B/P (MAP) Pulse Ox O2 Delivery O2 Flow Rate FiO2 02/23/19 09:06 Room Air 02/23/19 08:25 98 Nasal Cannula 2.0 28 02/23/19 08:25 71 20 Nasal Cannula 2.0 28 02/23/19 08:25 Nasal Cannula 2.0 28 02/23/19 08:00 98.1 68 18 115/71 (86) 98 02/23/19 04:00 97.4 68 18 104/72 (83) 99 02/23/19 00:00 98.3 83 18 125/77 (93) 95 02/22/19 21:03 Nasal Cannula 2.0 28 02/22/19 21:02 71 20 Nasal Cannula 2.0 28 02/22/19 21:00 Room Air 02/22/19 20:00 98.1 73 18 122/71 (88) 96 02/22/19 16:10 98.6 79 18 127/75 (92) 98 02/22/19 12:00 98.4 82 18 122/74 (90) 98 Intake and Output 02/22/19 02/23/19 19:00 07:00 Intake Total 1355 ml 100 ml Output Total 200 ml Balance 1355 ml -100 ml Intake Free Water 200 ml IV Total 550 ml 100 ml Tube Feeding 605 ml Output Urine Total 200 ml # Bowel Movements 2 1 Laboratory Tests Test 02/23/19 06:20 White Blood Count 7.4 K/UL (4.8-10.8) Red Blood Count 3.65 M/UL (4.70-6.10) L Hemoglobin 11.5 G/DL (14.2-18.0) L Hematocrit 33.2 % (42.0-52.0) L Mean Corpuscular Volume 91 FL (80-99) Mean Corpuscular Hemoglobin 31.6 PG (27.0-31.0) H Mean Corpuscular Hemoglobin Concent 34.7 G/DL (32.0-36.0) Red Cell Distribution Width 12.0 % (11.6-14.8) Platelet Count 257 K/UL (150-450) Mean Platelet Volume 5.7 FL (6.5-10.1) L Neutrophils (%) (Auto) 41.4 % (45.0-75.0) L Lymphocytes (%) (Auto) 45.2 % (20.0-45.0) H Monocytes (%) (Auto) 10.8 % (1.0-10.0) H Eosinophils (%) (Auto) 2.1 % (0.0-3.0) Basophils (%) (Auto) 0.6 % (0.0-2.0) Sodium Level 136 MMOL/L (136-145) Potassium Level 4.8 MMOL/L (3.5-5.1) Chloride Level 104 MMOL/L (98-107) Carbon Dioxide Level 31 MMOL/L (21-32) Anion Gap 1 mmol/L (5-15) L Blood Urea Nitrogen 24 mg/dL (7-18) H Creatinine 1.4 MG/DL (0.55-1.30) H Estimat Glomerular Filtration Rate > 60 mL/min (>60) Glucose Level 104 MG/DL (74-106) Calcium Level 8.7 MG/DL (8.5-10.1) Objective HEAD AND NECK: No JVD. LUNGS: Clear CARDIOVASCULAR: Regular S1 and S2 with no gallop or murmur. ABDOMEN: Soft.PEG in place EXTREMITIES: No pitting edema. Bryce Ba MD February 23, 2019 10:23
[2019-02-23] MEDS ORDERED: OLANZapine 2.5mg tab ORAL PRN (12:00)
--- NOTE | 2019-02-23 13:32 | Pulmonology Progress Note ---
Assessment/Plan Problems: (1) Acute encephalopathy (2) Sepsis (3) ATN (acute tubular necrosis) (4) Pyelonephritis (5) Prostate cancer (6) Cerebral vascular disease (7) Methadone maintenance therapy patient (8) HTN (hypertension) (9) Hepatitis C Assessment/Plan doing better more awake all reviewed PEG in place, tolerating feeding bun/creatinine improving neuro consult appreciated more awake now iv fluids check cultures neuro f/u Subjective ROS Limited/Unobtainable: No Constitutional: Reports: no symptoms HEENT: Repors: no symptoms Respiratory: Reports: no symptoms Allergies: Uncoded Allergies: anesthetics unspecified (Allergy, Mild, 02/12/19) sulfonamides (Allergy, Mild, rash, 02/12/19) Objective Last 24 Hour Vital Signs Date Time Temp Pulse Resp B/P (MAP) Pulse Ox O2 Delivery O2 Flow Rate FiO2 02/23/19 12:00 97.6 59 18 122/77 (92) 99 02/23/19 09:06 Room Air 02/23/19 08:25 98 Nasal Cannula 2.0 28 02/23/19 08:25 71 20 Nasal Cannula 2.0 28 02/23/19 08:25 Nasal Cannula 2.0 28 02/23/19 08:00 98.1 68 18 115/71 (86) 98 02/23/19 04:00 97.4 68 18 104/72 (83) 99 02/23/19 00:00 98.3 83 18 125/77 (93) 95 02/22/19 21:03 Nasal Cannula 2.0 28 02/22/19 21:02 71 20 Nasal Cannula 2.0 28 02/22/19 21:00 Room Air 02/22/19 20:00 98.1 73 18 122/71 (88) 96 02/22/19 16:10 98.6 79 18 127/75 (92) 98 Intake and Output 02/22/19 02/23/19 19:00 07:00 Intake Total 1355 ml 155 ml Output Total 200 ml Balance 1355 ml -45 ml Intake Free Water 200 ml IV Total 550 ml 100 ml Tube Feeding 605 ml 55 ml Output Urine Total 200 ml # Bowel Movements 2 1 Objective General Appearance: cachectic Lines, tubes and drains: peripheral HEENT: normocephalic, atraumatic Neck: non-tender, normal alignment Respiratory/Chest: chest wall non-tender, lungs clear Cardiovascular/Chest: normal peripheral pulses, normal rate Abdomen: normal bowel sounds Extremities: normal range of motion Laboratory Tests 02/23/19 06:20: White Blood Count 7.4, Red Blood Count 3.65L, Hemoglobin 11.5L, Hematocrit 33.2L , Mean Corpuscular Volume 91, Mean Corpuscular Hemoglobin 31.6H, Mean Corpuscular Hemoglobin Concent 34.7, Red Cell Distribution Width 12.0, Platelet Count 257, Mean Platelet Volume 5.7L, Neutrophils (%) (Auto) 41.4L, Lymphocytes (%) (Auto) 45.2H, Monocytes (%) (Auto) 10.8H, Eosinophils (%) (Auto) 2.1, Basophils (%) (Auto) 0.6, Sodium Level 136, Potassium Level 4.8, Chloride Level 104, Carbon Dioxide Level 31, Anion Gap 1L, Blood Urea Nitrogen 24H, Creatinine 1.4H, Estimat Glomerular Filtration Rate > 60, Glucose Level 104, Calcium Level 8.7 Current Medications Medications (Trade) Dose Ordered Sig/Lucie Route PRN Reason Start Time Stop Time Status Last Admin Dose Admin Acetaminophen (Tylenol) 650 mg Q4H PRN ORAL Mild Pain/Temp > 100.5 02/12/19 08:15 03/14/19 08:14 02/14/19 00:45 Clonidine HCl (Catapres Tab) 0.1 mg Q4H PRN ORAL For High Blood Pressure 02/12/19 08:15 03/14/19 08:14 Dextrose 1,000 ml @ 50 mls/hr Q20H IV 02/16/19 16:00 03/14/19 15:59 02/23/19 05:28 Dextrose (Dextrose 50%) 25 ml Q30M PRN IV Hypoglycemia 02/12/19 08:15 03/14/19 08:14 Dextrose (Dextrose 50%) 50 ml Q30M PRN IV Hypoglycemia 02/12/19 08:15 03/14/19 08:14 Docusate Sodium (Colace) 100 mg TWICE A DAY GT 02/19/19 10:00 03/14/19 08:59 02/23/19 08:47 Haloperidol (Haldol) 5 mg Q6H PRN ORAL Agitation 02/12/19 08:30 03/14/19 08:29 02/12/19 16:20 Heparin Sodium (Porcine) (Heparin 5000 units/ml) 5,000 units EVERY 12 HOURS SUBQ 02/12/19 09:00 03/14/19 08:59 02/23/19 08:47 Lorazepam (Ativan 2mg/ml 1ml) 0.5 mg Q4H PRN IV For Anxiety 02/18/19 12:15 02/25/19 12:14 02/19/19 21:31 Midodrine (Pro-Amatine) 2.5 mg THREE TIMES A DAY GT 02/20/19 13:00 03/22/19 12:59 02/23/19 12:32 Morphine Sulfate (Morphine Sulfate) 1 mg Q4H PRN IVP For Pain 02/18/19 12:15 02/25/19 12:14 02/21/19 22:15 Olanzapine (ZyPREXA) 2.5 mg TID PRN ORAL agitation 02/23/19 12:00 03/14/19 13:59 Ondansetron HCl (Zofran) 4 mg Q6H PRN IVP Nausea & Vomiting 02/12/19 08:15 03/14/19 08:14 Polyethylene Glycol (Miralax) 17 gm HSPRN PRN ORAL Constipation 02/12/19 08:15 03/14/19 08:14 Tamsulosin HCl (Flomax) 0.4 mg BID ORAL 02/12/19 18:00 03/14/19 17:59 02/23/19 08:47 Valproic Acid (Depakene) 500 mg Q12HR GT 02/19/19 21:00 03/21/19 20:59 02/23/19 08:47 Zolpidem Tartrate (Ambien) 5 mg HSPRN PRN ORAL Insomnia 02/18/19 12:15 02/25/19 12:14 German Mooney MD February 23, 2019 13:32
--- NOTE | 2019-02-23 14:18 | Nephrology Progress Note ---
Assessment/Plan Problem List: (1) ARF (acute renal failure) Assessment: cr lowering (2) CKD (chronic kidney disease) (3) Failure to thrive syndrome, adult (4) Hypernatremia Assessment Acute encephalopathy Psych history & Paranoia h/o Prostate cancer CKD (chronic kidney disease), superimposed ARF / Dehydration h/o Hepatitis C h/o Dementia Plan DC D5W start Midodrine monitor renal parameters keep BP and BS in check per orders Subjective ROS Limited/Unobtainable: No Objective Objective Last 24 Hour Vital Signs Date Time Temp Pulse Resp B/P (MAP) Pulse Ox O2 Delivery O2 Flow Rate FiO2 02/23/19 12:00 97.6 59 18 122/77 (92) 99 02/23/19 09:06 Room Air 02/23/19 08:25 98 Nasal Cannula 2.0 28 02/23/19 08:25 71 20 Nasal Cannula 2.0 28 02/23/19 08:25 Nasal Cannula 2.0 28 02/23/19 08:00 98.1 68 18 115/71 (86) 98 02/23/19 04:00 97.4 68 18 104/72 (83) 99 02/23/19 00:00 98.3 83 18 125/77 (93) 95 02/22/19 21:03 Nasal Cannula 2.0 28 02/22/19 21:02 71 20 Nasal Cannula 2.0 28 02/22/19 21:00 Room Air 02/22/19 20:00 98.1 73 18 122/71 (88) 96 02/22/19 16:10 98.6 79 18 127/75 (92) 98 Intake and Output 02/22/19 02/23/19 19:00 07:00 Intake Total 1355 ml 155 ml Output Total 200 ml Balance 1355 ml -45 ml Intake Free Water 200 ml IV Total 550 ml 100 ml Tube Feeding 605 ml 55 ml Output Urine Total 200 ml # Bowel Movements 2 1 Laboratory Tests 02/23/19 06:20: White Blood Count 7.4, Red Blood Count 3.65L, Hemoglobin 11.5L, Hematocrit 33.2L , Mean Corpuscular Volume 91, Mean Corpuscular Hemoglobin 31.6H, Mean Corpuscular Hemoglobin Concent 34.7, Red Cell Distribution Width 12.0, Platelet Count 257, Mean Platelet Volume 5.7L, Neutrophils (%) (Auto) 41.4L, Lymphocytes (%) (Auto) 45.2H, Monocytes (%) (Auto) 10.8H, Eosinophils (%) (Auto) 2.1, Basophils (%) (Auto) 0.6, Sodium Level 136, Potassium Level 4.8, Chloride Level 104, Carbon Dioxide Level 31, Anion Gap 1L, Blood Urea Nitrogen 24H, Creatinine 1.4H, Estimat Glomerular Filtration Rate > 60, Glucose Level 104, Calcium Level 8.7 Height (Feet): 5 Height (Inches): 6.00 Weight (Pounds): 109 General Appearance: no apparent distress Objective no change Tanner Grant MD February 23, 2019 14:17
--- NOTE | 2019-02-23 14:41 | NUR ---
*-* INSURANCE *-* UPDATED CLINICALS HAVE BEEN FAXED TO: [facility] P- [id number] [phone] F- [phone]...REVIEW/CLINICAL
--- NOTE | 2019-02-23 14:58 | General Progress Note ---
Assessment/Plan Problem List: (1) UTI (urinary tract infection) ICD Codes: N39.0 - Urinary tract infection, site not specified SNOMED: 19543833 (2) CKD (chronic kidney disease) ICD Codes: N18.9 - CKD (chronic kidney disease) SNOMED: 930716891 (3) ARF (acute renal failure) ICD Codes: N17.9 - ARF (acute renal failure) SNOMED: 85931352 (4) Failure to thrive syndrome, adult ICD Codes: R62.7 - Failure to thrive syndrome, adult SNOMED: 919104840 (5) Hepatitis C ICD Codes: B19.20 - Unspecified viral hepatitis C without hepatic coma SNOMED: 57997834 (6) HTN (hypertension) ICD Codes: I10 - Essential (primary) hypertension SNOMED: 12384678 Status: stable, progressing Assessment/Plan: pt diet abx gi eval cbc bmp am dc plan snf Subjective Constitutional: Reports: weakness Allergies: Uncoded Allergies: anesthetics unspecified (Allergy, Mild, 02/12/19) sulfonamides (Allergy, Mild, rash, 02/12/19) All Systems: reviewed and negative except above Subjective o2nc sleepy calm Objective Last 24 Hour Vital Signs Date Time Temp Pulse Resp B/P (MAP) Pulse Ox O2 Delivery O2 Flow Rate FiO2 02/23/19 12:00 97.6 59 18 122/77 (92) 99 02/23/19 09:06 Room Air 02/23/19 08:25 98 Nasal Cannula 2.0 28 02/23/19 08:25 71 20 Nasal Cannula 2.0 28 02/23/19 08:25 Nasal Cannula 2.0 28 02/23/19 08:00 98.1 68 18 115/71 (86) 98 02/23/19 04:00 97.4 68 18 104/72 (83) 99 02/23/19 00:00 98.3 83 18 125/77 (93) 95 02/22/19 21:03 Nasal Cannula 2.0 28 02/22/19 21:02 71 20 Nasal Cannula 2.0 28 02/22/19 21:00 Room Air 02/22/19 20:00 98.1 73 18 122/71 (88) 96 02/22/19 16:10 98.6 79 18 127/75 (92) 98 Intake and Output 02/22/19 02/23/19 19:00 07:00 Intake Total 1355 ml 155 ml Output Total 200 ml Balance 1355 ml -45 ml Intake Free Water 200 ml IV Total 550 ml 100 ml Tube Feeding 605 ml 55 ml Output Urine Total 200 ml # Bowel Movements 2 1 Laboratory Tests 02/23/19 06:20: White Blood Count 7.4, Red Blood Count 3.65L, Hemoglobin 11.5L, Hematocrit 33.2L , Mean Corpuscular Volume 91, Mean Corpuscular Hemoglobin 31.6H, Mean Corpuscular Hemoglobin Concent 34.7, Red Cell Distribution Width 12.0, Platelet Count 257, Mean Platelet Volume 5.7L, Neutrophils (%) (Auto) 41.4L, Lymphocytes (%) (Auto) 45.2H, Monocytes (%) (Auto) 10.8H, Eosinophils (%) (Auto) 2.1, Basophils (%) (Auto) 0.6, Sodium Level 136, Potassium Level 4.8, Chloride Level 104, Carbon Dioxide Level 31, Anion Gap 1L, Blood Urea Nitrogen 24H, Creatinine 1.4H, Estimat Glomerular Filtration Rate > 60, Glucose Level 104, Calcium Level 8.7 Height (Feet): 5 Height (Inches): 6.00 Weight (Pounds): 109 General Appearance: lethargic EENT: normal ENT inspection Neck: normal alignment Cardiovascular: normal peripheral pulses, normal rate, regular rhythm Respiratory/Chest: chest wall non-tender, lungs clear, normal breath sounds Abdomen: normal bowel sounds, non tender, soft Extremities: normal inspection Edema: no edema noted Arm (L), no edema noted Arm (R), no edema noted Leg (L), no edema noted Leg (R), no edema noted Pedal (L), no edema noted Pedal (R), no edema noted Generalized Neurologic: motor weakness Skin: normal pigmentation, warm/dry Jaleel Moon DO February 23, 2019 14:58
--- NOTE | 2019-02-23 19:13 | NUR ---
HAND-OFF: Report given to KERMIT White Patient in stable condition kermit frazier.
--- NOTE | 2019-02-23 19:45 | Neurology Progress Note ---
Interim History Interim History ROS Limited/Unobtainable: Yes Complaints: AMS Events: No changes in MS, or sig events Review of Systems All Systems: reviewed and negative except above Objective Physical Exam Last Vital Signs Date Time Temp Pulse Resp B/P (MAP) Pulse Ox O2 Delivery O2 Flow Rate FiO2 02/23/19 16:03 97.7 68 20 110/75 (87) 99 02/23/19 09:06 Room Air 02/23/19 08:25 2.0 28 Laboratory Tests Test 02/23/19 06:20 White Blood Count 7.4 K/UL (4.8-10.8) Red Blood Count 3.65 M/UL (4.70-6.10) L Hemoglobin 11.5 G/DL (14.2-18.0) L Hematocrit 33.2 % (42.0-52.0) L Mean Corpuscular Volume 91 FL (80-99) Mean Corpuscular Hemoglobin 31.6 PG (27.0-31.0) H Mean Corpuscular Hemoglobin Concent 34.7 G/DL (32.0-36.0) Red Cell Distribution Width 12.0 % (11.6-14.8) Platelet Count 257 K/UL (150-450) Mean Platelet Volume 5.7 FL (6.5-10.1) L Neutrophils (%) (Auto) 41.4 % (45.0-75.0) L Lymphocytes (%) (Auto) 45.2 % (20.0-45.0) H Monocytes (%) (Auto) 10.8 % (1.0-10.0) H Eosinophils (%) (Auto) 2.1 % (0.0-3.0) Basophils (%) (Auto) 0.6 % (0.0-2.0) Sodium Level 136 MMOL/L (136-145) Potassium Level 4.8 MMOL/L (3.5-5.1) Chloride Level 104 MMOL/L (98-107) Carbon Dioxide Level 31 MMOL/L (21-32) Anion Gap 1 mmol/L (5-15) L Blood Urea Nitrogen 24 mg/dL (7-18) H Creatinine 1.4 MG/DL (0.55-1.30) H Estimat Glomerular Filtration Rate > 60 mL/min (>60) Glucose Level 104 MG/DL (74-106) Calcium Level 8.7 MG/DL (8.5-10.1) General: other Head: normocophalic, other Neck: no rigidity EENT: benign Neurologic Exam Mental Status: awake Speech: other Language: other Cranial Nerve II: no papilledema Cranial Nerves III, IV, : PERRLA, EOMI Cranial Nerve VII: no facial asymmetry Cranial Nerve VIII: normal hearing Cranial Nerve XI: SCM symmetric Cranial Nerve XII: tongue midline Motor System: strength 5/5 Sensory: normal pinprick, normal light touch Objective Exam remains non focal and abnormal - patient continues to be able to move all extremities with equal strength to command or localizing in response to noxious stimuli. However, not verbalizing normally, not tracking with eyes, pupils are now equal, 3+ and sluggishly reactive Impression/Recommendations Problems: (1) Dementia with behavioral disturbance Assessment & Plan: Exam more lethargic -possible secondary to procedure today. Will follow. (2) UTI (urinary tract infection) Assessment & Plan: Abx as per ID (3) Acute encephalopathy Assessment & Plan: EEG 02/18/19 This is an abnormal EEG characterized by: 1. Slowing of the background in the 4-5 Hz theta and 1.5-2 Hz delta range. 2. The presence of slow sleep spindles seen in the frontocentral region. No evidence of seizures, but severely moderate encephalopathy correlating to behavioral disturbance and possible delirium/ psychosis. (4) Failure to thrive syndrome, adult Assessment & Plan: S/P PEG on enteral feeds now (5) Acute hypoactive delirium due to multiple etiologies Assessment & Plan: Consider changing current psychotropic regimen - Seroquel not appearing to be effective. (6) Dementia, vascular Status: stable, progressing Recommendations Maintain normothermia Abx as per ID Na 135-145 Maintain sleep hygiene for patient - recommend Melatonin 3mg QHS Avoid use of benzodiazapenes, anticholinergics, and opioid narcotics. May utilize Seroquel 25mg QD/ QHS for behavioral agitation. Daytime stimulation of patient with PT may be helpful . Consider re-assessment of EEG Lydia Obrien N.P. February 23, 2019 19:45
--- NOTE | 2019-02-23 19:48 | NUR ---
NURSE NOTES: Received patient in bed, patient responsive to pain and touch, opens eyes spontaneously, VSS, afebrile, no acute distress noted. Call light is within reach, bed is in low position, locked, alarm is on. Will continue to monitor for safety and comfort.
[2019-02-23] MEDS: LORazepam Inj 2mg/ml 1ml IV PRN (20:58)
[2019-02-23 21:05] LABS: ALANINE AMINOTRANSFERASE 23 U/L (12-78); ALBUMIN 2.5 G/DL (3.4-5.0); ALBUMIN/GLOBULIN RATIO 0.5 (1.0-2.7); ALKALINE PHOSPHATASE 98 U/L (46-116); ANION GAP 6 mmol/L (5-15); ASPARTATE AMINO TRANSFERASE 35 U/L (15-37); BILIRUBIN,TOTAL 0.2 MG/DL (0.2-1.0); BLOOD UREA NITROGEN 27 mg/dL (7-18); CARBON DIOXIDE 29 MMOL/L (21-32); CHLORIDE 101 MMOL/L (98-107); CREATININE 1.4 MG/DL (0.55-1.30); POTASSIUM 5.1 MMOL/L (3.5-5.1); SODIUM 136 MMOL/L (136-145)
[2019-02-23] MEDS: Morphine Sulfate 2mg/ml Inj(IV/IM USE ONLY) IVP PRN (21:59)
[2019-02-24] VITALS: BP 138/88
[2019-02-24 04:00] VITALS: BP 121/81
--- NOTE | 2019-02-24 06:45 | NUR ---
HAND-OFF: Report given to Ronak CARMEN.
[2019-02-24 07:51] VITALS: BP 106/81
--- NOTE | 2019-02-24 07:52 | NUR ---
NURSE NOTES: pt asleep arousable, no episode of combativeness, dr Mooney made aware , dc restraints at this time will monitor. hob elevated, gt patent and intact, no residual will monitor. call light within reach. bed in lowest position.
[2019-02-24] MEDS: Valproic Acid 250mg/5ml Liquid GT SCH ×2 (08:07→20:17)
[2019-02-24] MEDS: Docusate 100mg/10ml Liq GT SCH ×2 (08:07→17:08)
[2019-02-24] MEDS: Tamsulosin 0.4mg cap ORAL SCH ×2 (08:07→17:08)
[2019-02-24] MEDS: Heparin 5000 units/ml inj SUBQ SCH ×2 (08:22→20:18)
[2019-02-24 09:11] LABS: EOSINOPHILS % (AUTO) 1.8 % (0.0-3.0); HEMATOCRIT 37.1 % (42.0-52.0); HEMOGLOBIN 12.2 G/DL (14.2-18.0); LYMPHOCYTES % (AUTO) 48.2 % (20.0-45.0); MEAN CORPUSCULAR VOLUME 94 FL (80-99); MONOCYTES % (AUTO) 9.1 % (1.0-10.0); NEUTROPHILS % (AUTO) 39.9 % (45.0-75.0); PLATELET COUNT 254 K/UL (150-450); RED BLOOD COUNT 3.96 M/UL (4.70-6.10); RED CELL DISTRIBUTION WIDTH 12.6 % (11.6-14.8); WHITE BLOOD COUNT 8.5 K/UL (4.8-10.8)
[2019-02-24] MEDS ORDERED: Morphine Sulfate 2mg/ml Inj(IV/IM USE ONLY) IVP PRN (10:00)
--- NOTE | 2019-02-24 11:13 | NUR ---
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 CKD . UTI VS: BP 106/81, P 55, T 97.6, RR 18, SpO2 98 on 2.0L O2 NC RBC 3.96, H&H 12.2, Hct 37.1 IS:LORAZEPAM 0.5mg MIDODRINE 2.5mg FLOMAX 0.4mg DEPAKENE 500mg HEPARIN SUBQ MED/SURG STATUS
--- NOTE | 2019-02-24 11:25 | NUR ---
*-* INSURANCE *-* UPDATED CLINICALS HAVE BEEN FAXED TO: [facility] P- [phone] F- [phone]...REVIEW/CLINICAL
--- NOTE | 2019-02-24 11:34 | GI Progress Note ---
Assessment/Plan Problems: (1) Encounter for PEG (percutaneous endoscopic gastrostomy) ICD Codes: Z43.1 - Encounter for attention to gastrostomy SNOMED: 754565464, 447188522 (2) Hepatitis C ICD Codes: B19.20 - Unspecified viral hepatitis C without hepatic coma SNOMED: 63482787 (3) Failure to thrive syndrome, adult ICD Codes: R62.7 - Failure to thrive syndrome, adult SNOMED: 466881824 (4) Dementia with behavioral disturbance ICD Codes: F03.91 - Unspecified dementia with behavioral disturbance SNOMED: 9688446727718 (5) Ileus ICD Codes: K56.7 - Ileus, unspecified SNOMED: 252376760 Status: stable Status Narrative Discussed with Dr. Samuel. Assessment/Plan Status post PEG G-tube feedings per dietitian Continue antibiotics GT site care daily and as needed Elevate head of bed at all times PRN transfusion PPI Reglan as needed for GI motility DC planning The patient was seen and examined at bedside and all new and available data was reviewed in the patients chart. I agree with the above findings, impression and plan. (Patient seen earlier today. Signature stamp does not reflect patient encounter time.). - Min Samuel MD Subjective Subjective Limited Objective Last 24 Hour Vital Signs Date Time Temp Pulse Resp B/P (MAP) Pulse Ox O2 Delivery O2 Flow Rate FiO2 02/24/19 09:00 Room Air 02/24/19 08:10 Nasal Cannula 2.0 28 02/24/19 08:10 98 Nasal Cannula 2.0 28 02/24/19 07:51 97.6 55 18 106/81 (89) 98 02/24/19 04:00 97.6 70 17 121/81 (94) 02/24/19 00:00 98.5 93 18 138/88 (105) 02/23/19 21:35 98.7 96 17 144/97 (113) 02/23/19 21:34 Room Air 02/23/19 20:00 98.7 96 17 144/97 (113) 02/23/19 16:03 97.7 68 20 110/75 (87) 99 02/23/19 12:00 97.6 59 18 122/77 (92) 99 Intake and Output 5/7/19 5/8/19 18:59 06:59 Intake Total 1110 ml 595 ml Output Total 800 ml 1100 ml Balance 310 ml -505 ml Intake Free Water 200 ml 100 ml IV Total 250 ml Tube Feeding 660 ml 495 ml Output Urine Total 800 ml 1100 ml # Voids 1 # Bowel Movements 3 1 Laboratory Tests Test 02/23/19 20:25 02/24/19 08:45 Sodium Level 136 MMOL/L (136-145) Potassium Level 5.1 MMOL/L (3.5-5.1) Chloride Level 101 MMOL/L (98-107) Carbon Dioxide Level 29 MMOL/L (21-32) Anion Gap 6 mmol/L (5-15) Blood Urea Nitrogen 27 mg/dL (7-18) H Creatinine 1.4 MG/DL (0.55-1.30) H Estimat Glomerular Filtration Rate > 60 mL/min (>60) Glucose Level 122 MG/DL (74-106) H Calcium Level 9.0 MG/DL (8.5-10.1) Total Bilirubin 0.2 MG/DL (0.2-1.0) Aspartate Amino Transf (AST/SGOT) 35 U/L (15-37) Alanine Aminotransferase (ALT/SGPT) 23 U/L (12-78) Alkaline Phosphatase 98 U/L (46-116) Total Protein 7.1 G/DL (6.4-8.2) Albumin 2.5 G/DL (3.4-5.0) L Globulin 4.6 g/dL Albumin/Globulin Ratio 0.5 (1.0-2.7) L White Blood Count 8.5 K/UL (4.8-10.8) Red Blood Count 3.96 M/UL (4.70-6.10) L Hemoglobin 12.2 G/DL (14.2-18.0) L Hematocrit 37.1 % (42.0-52.0) L Mean Corpuscular Volume 94 FL (80-99) Mean Corpuscular Hemoglobin 30.9 PG (27.0-31.0) Mean Corpuscular Hemoglobin Concent 33.0 G/DL (32.0-36.0) Red Cell Distribution Width 12.6 % (11.6-14.8) Platelet Count 254 K/UL (150-450) Mean Platelet Volume 5.7 FL (6.5-10.1) L Neutrophils (%) (Auto) 39.9 % (45.0-75.0) L Lymphocytes (%) (Auto) 48.2 % (20.0-45.0) H Monocytes (%) (Auto) 9.1 % (1.0-10.0) Eosinophils (%) (Auto) 1.8 % (0.0-3.0) Basophils (%) (Auto) 1.0 % (0.0-2.0) Height (Feet): 5 Height (Inches): 6.00 Weight (Pounds): 109 Abdominal Exam: GT site - c/d/i Daniel Zhu NP February 24, 2019 11:34
--- NOTE | 2019-02-24 11:58 | Cardiac Electrophysiology PN ---
Assessment/Plan Assessment/Plan 1. Hypotension, resolved with IV antibiotic and fluids. Echo Nl EF. No [place] 2. Dementia. 3. Renal failure and hypernatremia due to dehydration. Resolved with IV fluids. 4. S/P PEG by Dr. Lizzie OBANDO RN Subjective Subjective Confused off restraints today. GT feeding ongoing. Awaiting placement still. Objective Last 24 Hour Vital Signs Date Time Temp Pulse Resp B/P (MAP) Pulse Ox O2 Delivery O2 Flow Rate FiO2 02/24/19 09:00 Room Air 02/24/19 08:10 Nasal Cannula 2.0 28 02/24/19 08:10 98 Nasal Cannula 2.0 28 02/24/19 07:51 97.6 55 18 106/81 (89) 98 02/24/19 04:00 97.6 70 17 121/81 (94) 02/24/19 00:00 98.5 93 18 138/88 (105) 02/23/19 21:35 98.7 96 17 144/97 (113) 02/23/19 21:34 Room Air 02/23/19 20:00 98.7 96 17 144/97 (113) 02/23/19 16:03 97.7 68 20 110/75 (87) 99 02/23/19 12:00 97.6 59 18 122/77 (92) 99 Intake and Output 02/23/19 02/24/19 18:59 06:59 Intake Total 1110 ml 595 ml Output Total 800 ml 1100 ml Balance 310 ml -505 ml Intake Free Water 200 ml 100 ml IV Total 250 ml Tube Feeding 660 ml 495 ml Output Urine Total 800 ml 1100 ml # Voids 1 # Bowel Movements 3 1 Laboratory Tests Test 02/23/19 20:25 02/24/19 08:45 Sodium Level 136 MMOL/L (136-145) Potassium Level 5.1 MMOL/L (3.5-5.1) Chloride Level 101 MMOL/L (98-107) Carbon Dioxide Level 29 MMOL/L (21-32) Anion Gap 6 mmol/L (5-15) Blood Urea Nitrogen 27 mg/dL (7-18) H Creatinine 1.4 MG/DL (0.55-1.30) H Estimat Glomerular Filtration Rate > 60 mL/min (>60) Glucose Level 122 MG/DL (74-106) H Calcium Level 9.0 MG/DL (8.5-10.1) Total Bilirubin 0.2 MG/DL (0.2-1.0) Aspartate Amino Transf (AST/SGOT) 35 U/L (15-37) Alanine Aminotransferase (ALT/SGPT) 23 U/L (12-78) Alkaline Phosphatase 98 U/L (46-116) Total Protein 7.1 G/DL (6.4-8.2) Albumin 2.5 G/DL (3.4-5.0) L Globulin 4.6 g/dL Albumin/Globulin Ratio 0.5 (1.0-2.7) L White Blood Count 8.5 K/UL (4.8-10.8) Red Blood Count 3.96 M/UL (4.70-6.10) L Hemoglobin 12.2 G/DL (14.2-18.0) L Hematocrit 37.1 % (42.0-52.0) L Mean Corpuscular Volume 94 FL (80-99) Mean Corpuscular Hemoglobin 30.9 PG (27.0-31.0) Mean Corpuscular Hemoglobin Concent 33.0 G/DL (32.0-36.0) Red Cell Distribution Width 12.6 % (11.6-14.8) Platelet Count 254 K/UL (150-450) Mean Platelet Volume 5.7 FL (6.5-10.1) L Neutrophils (%) (Auto) 39.9 % (45.0-75.0) L Lymphocytes (%) (Auto) 48.2 % (20.0-45.0) H Monocytes (%) (Auto) 9.1 % (1.0-10.0) Eosinophils (%) (Auto) 1.8 % (0.0-3.0) Basophils (%) (Auto) 1.0 % (0.0-2.0) Objective HEAD AND NECK: No JVD. LUNGS: Clear CARDIOVASCULAR: Regular S1 and S2 with no gallop or murmur. ABDOMEN: Soft.PEG in place EXTREMITIES: No pitting edema. Bryce Ba MD February 24, 2019 11:58
[2019-02-24 12:00] VITALS: BP 118/77
--- NOTE | 2019-02-24 12:29 | Nephrology Progress Note ---
Assessment/Plan Problem List: (1) ARF (acute renal failure) Assessment: cr lowering (2) CKD (chronic kidney disease) (3) Failure to thrive syndrome, adult (4) Hypernatremia Assessment Acute encephalopathy Psych history & Paranoia h/o Prostate cancer CKD (chronic kidney disease), superimposed ARF / Dehydration h/o Hepatitis C h/o Dementia Plan DC D5W start Midodrine monitor renal parameters keep BP and BS in check per orders Subjective ROS Limited/Unobtainable: No Objective Objective Last 24 Hour Vital Signs Date Time Temp Pulse Resp B/P (MAP) Pulse Ox O2 Delivery O2 Flow Rate FiO2 02/24/19 09:00 Room Air 02/24/19 08:10 Nasal Cannula 2.0 28 02/24/19 08:10 98 Nasal Cannula 2.0 28 02/24/19 07:51 97.6 55 18 106/81 (89) 98 02/24/19 04:00 97.6 70 17 121/81 (94) 02/24/19 00:00 98.5 93 18 138/88 (105) 02/23/19 21:35 98.7 96 17 144/97 (113) 02/23/19 21:34 Room Air 02/23/19 20:00 98.7 96 17 144/97 (113) 02/23/19 16:03 97.7 68 20 110/75 (87) 99 Intake and Output 02/23/19 02/24/19 18:59 06:59 Intake Total 1110 ml 595 ml Output Total 800 ml 1100 ml Balance 310 ml -505 ml Intake Free Water 200 ml 100 ml IV Total 250 ml Tube Feeding 660 ml 495 ml Output Urine Total 800 ml 1100 ml # Voids 1 # Bowel Movements 3 1 Laboratory Tests 02/23/19 20:25: Sodium Level 136, Potassium Level 5.1, Chloride Level 101, Carbon Dioxide Level 29, Anion Gap 6, Blood Urea Nitrogen 27H, Creatinine 1.4H, Estimat Glomerular Filtration Rate > 60, Glucose Level 122H, Calcium Level 9.0, Total Bilirubin 0.2 , Aspartate Amino Transf (AST/SGOT) 35, Alanine Aminotransferase (ALT/SGPT) 23, Alkaline Phosphatase 98, Total Protein 7.1, Albumin 2.5L, Globulin 4.6, Albumin/ Globulin Ratio 0.5L 02/24/19 08:45: White Blood Count 8.5, Red Blood Count 3.96L, Hemoglobin 12.2L, Hematocrit 37.1L , Mean Corpuscular Volume 94, Mean Corpuscular Hemoglobin 30.9, Mean Corpuscular Hemoglobin Concent 33.0, Red Cell Distribution Width 12.6, Platelet Count 254, Mean Platelet Volume 5.7L, Neutrophils (%) (Auto) 39.9L, Lymphocytes (%) (Auto) 48.2H, Monocytes (%) (Auto) 9.1, Eosinophils (%) (Auto) 1.8, Basophils (%) (Auto) 1.0 Height (Feet): 5 Height (Inches): 6.00 Weight (Pounds): 109 General Appearance: no apparent distress, lethargic Objective no change Tanner Grant MD February 24, 2019 12:29
--- NOTE | 2019-02-24 13:02 | Pulmonology Progress Note ---
Assessment/Plan Problems: (1) Acute encephalopathy (2) Sepsis (3) ATN (acute tubular necrosis) (4) Pyelonephritis (5) Prostate cancer (6) Cerebral vascular disease (7) Methadone maintenance therapy patient (8) HTN (hypertension) (9) Hepatitis C Assessment/Plan doing better more awake all reviewed PEG in place, tolerating feeding bun/creatinine improving neuro consult appreciated more awake now iv fluids check cultures neuro f/u Subjective ROS Limited/Unobtainable: No Constitutional: Reports: no symptoms HEENT: Repors: no symptoms Respiratory: Reports: no symptoms Allergies: Uncoded Allergies: anesthetics unspecified (Allergy, Mild, 02/12/19) sulfonamides (Allergy, Mild, rash, 02/12/19) Objective Last 24 Hour Vital Signs Date Time Temp Pulse Resp B/P (MAP) Pulse Ox O2 Delivery O2 Flow Rate FiO2 02/24/19 12:00 97.6 74 18 118/77 (91) 98 02/24/19 09:00 Room Air 02/24/19 08:10 Nasal Cannula 2.0 28 02/24/19 08:10 98 Nasal Cannula 2.0 28 02/24/19 07:51 97.6 55 18 106/81 (89) 98 02/24/19 04:00 97.6 70 17 121/81 (94) 02/24/19 00:00 98.5 93 18 138/88 (105) 02/23/19 21:35 98.7 96 17 144/97 (113) 02/23/19 21:34 Room Air 02/23/19 20:00 98.7 96 17 144/97 (113) 02/23/19 16:03 97.7 68 20 110/75 (87) 99 Intake and Output 02/23/19 02/24/19 19:00 07:00 Intake Total 1110 ml 540 ml Output Total 800 ml 1100 ml Balance 310 ml -560 ml Intake Free Water 200 ml 100 ml IV Total 250 ml Tube Feeding 660 ml 440 ml Output Urine Total 800 ml 1100 ml # Voids 1 # Bowel Movements 3 1 Objective General Appearance: cachectic Lines, tubes and drains: peripheral HEENT: normocephalic, atraumatic Neck: non-tender, normal alignment Respiratory/Chest: chest wall non-tender, lungs clear Cardiovascular/Chest: normal peripheral pulses, normal rate Abdomen: normal bowel sounds Extremities: normal range of motion Laboratory Tests 02/23/19 20:25: Sodium Level 136, Potassium Level 5.1, Chloride Level 101, Carbon Dioxide Level 29, Anion Gap 6, Blood Urea Nitrogen 27H, Creatinine 1.4H, Estimat Glomerular Filtration Rate > 60, Glucose Level 122H, Calcium Level 9.0, Total Bilirubin 0.2 , Aspartate Amino Transf (AST/SGOT) 35, Alanine Aminotransferase (ALT/SGPT) 23, Alkaline Phosphatase 98, Total Protein 7.1, Albumin 2.5L, Globulin 4.6, Albumin/ Globulin Ratio 0.5L 02/24/19 08:45: White Blood Count 8.5, Red Blood Count 3.96L, Hemoglobin 12.2L, Hematocrit 37.1L , Mean Corpuscular Volume 94, Mean Corpuscular Hemoglobin 30.9, Mean Corpuscular Hemoglobin Concent 33.0, Red Cell Distribution Width 12.6, Platelet Count 254, Mean Platelet Volume 5.7L, Neutrophils (%) (Auto) 39.9L, Lymphocytes (%) (Auto) 48.2H, Monocytes (%) (Auto) 9.1, Eosinophils (%) (Auto) 1.8, Basophils (%) (Auto) 1.0 Current Medications Medications (Trade) Dose Ordered Sig/Lucie Route PRN Reason Start Time Stop Time Status Last Admin Dose Admin Acetaminophen (Tylenol) 650 mg Q4H PRN ORAL Mild Pain/Temp > 100.5 02/12/19 08:15 03/14/19 08:14 02/14/19 00:45 Clonidine HCl (Catapres Tab) 0.1 mg Q4H PRN ORAL For High Blood Pressure 02/12/19 08:15 03/14/19 08:14 Dextrose (Dextrose 50%) 25 ml Q30M PRN IV Hypoglycemia 02/12/19 08:15 03/14/19 08:14 Dextrose (Dextrose 50%) 50 ml Q30M PRN IV Hypoglycemia 02/12/19 08:15 03/14/19 08:14 Docusate Sodium (Colace) 100 mg TWICE A DAY GT 02/19/19 10:00 03/14/19 08:59 02/24/19 08:07 Haloperidol (Haldol) 5 mg Q6H PRN ORAL Agitation 02/12/19 08:30 03/14/19 08:29 02/12/19 16:20 Heparin Sodium (Porcine) (Heparin 5000 units/ml) 5,000 units EVERY 12 HOURS SUBQ 02/12/19 09:00 03/14/19 08:59 02/24/19 08:22 Lorazepam (Ativan 2mg/ml 1ml) 0.5 mg Q4H PRN IV For Anxiety 02/18/19 12:15 02/25/19 12:14 02/23/19 20:58 Midodrine (Pro-Amatine) 2.5 mg THREE TIMES A DAY GT 02/20/19 13:00 03/22/19 12:59 02/24/19 08:07 Morphine Sulfate (Morphine Sulfate) 1 mg Q4H PRN IVP PAIN 4-02/24/19 10:00 02/25/19 12:14 Olanzapine (ZyPREXA) 2.5 mg TID PRN ORAL agitation 02/23/19 12:00 03/14/19 13:59 Ondansetron HCl (Zofran) 4 mg Q6H PRN IVP Nausea & Vomiting 02/12/19 08:15 03/14/19 08:14 Polyethylene Glycol (Miralax) 17 gm HSPRN PRN ORAL Constipation 02/12/19 08:15 03/14/19 08:14 Tamsulosin HCl (Flomax) 0.4 mg BID ORAL 02/12/19 18:00 03/14/19 17:59 02/24/19 08:07 Valproic Acid (Depakene) 500 mg Q12HR GT 02/19/19 21:00 03/21/19 20:59 02/24/19 08:07 Zolpidem Tartrate (Ambien) 5 mg HSPRN PRN ORAL Insomnia 02/18/19 12:15 02/25/19 12:14 German Mooney MD February 24, 2019 13:02
--- NOTE | 2019-02-24 13:33 | General Progress Note ---
Assessment/Plan Problem List: (1) UTI (urinary tract infection) ICD Codes: N39.0 - Urinary tract infection, site not specified SNOMED: 09026813 (2) CKD (chronic kidney disease) ICD Codes: N18.9 - CKD (chronic kidney disease) SNOMED: 636468145 (3) ARF (acute renal failure) ICD Codes: N17.9 - ARF (acute renal failure) SNOMED: 33690642 (4) Failure to thrive syndrome, adult ICD Codes: R62.7 - Failure to thrive syndrome, adult SNOMED: 280966536 (5) Hepatitis C ICD Codes: B19.20 - Unspecified viral hepatitis C without hepatic coma SNOMED: 61738706 (6) HTN (hypertension) ICD Codes: I10 - Essential (primary) hypertension SNOMED: 28434344 Status: stable, progressing Assessment/Plan: pt diet abx gi eval cbc bmp am dc plan snf Subjective Constitutional: Reports: weakness Allergies: Uncoded Allergies: anesthetics unspecified (Allergy, Mild, 02/12/19) sulfonamides (Allergy, Mild, rash, 02/12/19) All Systems: reviewed and negative except above Subjective sleepy calm Objective Last 24 Hour Vital Signs Date Time Temp Pulse Resp B/P (MAP) Pulse Ox O2 Delivery O2 Flow Rate FiO2 02/24/19 12:00 97.6 74 18 118/77 (91) 98 02/24/19 09:00 Room Air 02/24/19 08:10 Nasal Cannula 2.0 28 02/24/19 08:10 98 Nasal Cannula 2.0 28 02/24/19 07:51 97.6 55 18 106/81 (89) 98 02/24/19 04:00 97.6 70 17 121/81 (94) 02/24/19 00:00 98.5 93 18 138/88 (105) 02/23/19 21:35 98.7 96 17 144/97 (113) 02/23/19 21:34 Room Air 02/23/19 20:00 98.7 96 17 144/97 (113) 02/23/19 16:03 97.7 68 20 110/75 (87) 99 Intake and Output 02/23/19 02/24/19 19:00 07:00 Intake Total 1110 ml 540 ml Output Total 800 ml 1100 ml Balance 310 ml -560 ml Intake Free Water 200 ml 100 ml IV Total 250 ml Tube Feeding 660 ml 440 ml Output Urine Total 800 ml 1100 ml # Voids 1 # Bowel Movements 3 1 Laboratory Tests 02/23/19 20:25: Sodium Level 136, Potassium Level 5.1, Chloride Level 101, Carbon Dioxide Level 29, Anion Gap 6, Blood Urea Nitrogen 27H, Creatinine 1.4H, Estimat Glomerular Filtration Rate > 60, Glucose Level 122H, Calcium Level 9.0, Total Bilirubin 0.2 , Aspartate Amino Transf (AST/SGOT) 35, Alanine Aminotransferase (ALT/SGPT) 23, Alkaline Phosphatase 98, Total Protein 7.1, Albumin 2.5L, Globulin 4.6, Albumin/ Globulin Ratio 0.5L 02/24/19 08:45: White Blood Count 8.5, Red Blood Count 3.96L, Hemoglobin 12.2L, Hematocrit 37.1L , Mean Corpuscular Volume 94, Mean Corpuscular Hemoglobin 30.9, Mean Corpuscular Hemoglobin Concent 33.0, Red Cell Distribution Width 12.6, Platelet Count 254, Mean Platelet Volume 5.7L, Neutrophils (%) (Auto) 39.9L, Lymphocytes (%) (Auto) 48.2H, Monocytes (%) (Auto) 9.1, Eosinophils (%) (Auto) 1.8, Basophils (%) (Auto) 1.0 Height (Feet): 5 Height (Inches): 6.00 Weight (Pounds): 109 General Appearance: lethargic, confused EENT: normal ENT inspection Neck: normal alignment Cardiovascular: normal peripheral pulses, normal rate, regular rhythm Respiratory/Chest: chest wall non-tender, lungs clear, normal breath sounds Abdomen: normal bowel sounds, non tender, soft Extremities: normal inspection Edema: no edema noted Arm (L), no edema noted Arm (R), no edema noted Leg (L), no edema noted Leg (R), no edema noted Pedal (L), no edema noted Pedal (R), no edema noted Generalized Neurologic: motor weakness Skin: normal pigmentation, warm/dry Jaleel MoonAshley February 24, 2019 13:33
--- NOTE | 2019-02-24 15:30 | Progress Note ---
DATE: 02/23/2019 SUBJECTIVE: The patient is presenting with anxiety and agitation. the patient is disoriented and confused. The patient was asleep and arousable, in no acute distress. MENTAL STATUS EXAMINATION: The patient is alert and oriented times self. Mood is anxious and agitated. Affect is flat. Thought process, there is a paucity of thought content. Thought content, no suicidal or homicidal ideation. No visual auditory hallucinations. Insight and judgment is impaired. ASSESSMENT: 1. Acute encephalopathy. 2. Dementia with behavior disturbance. PLAN: We will continue the current medication. Continue the restraints. We will provide the patient with reality orientation. Mckenna Bermudez M.D. DR: ARY JOB#: [id number] CC: HERLINDA
[2019-02-24 15:48] VITALS: BP 104/62
--- NOTE | 2019-02-24 18:59 | NUR ---
HAND-OFF: Report given to MICHELLE CARMEN.
--- NOTE | 2019-02-24 19:17 | NUR ---
NURSE NOTES: Received patient in bed, awake, restless,confused, disoriented. No acute distress noted, VSS, afebrile, bed is in low position, locked and alarm is on. Will continue to monitor for safety and comfort.
[2019-02-24 20:33] VITALS: BP 125/64
[2019-02-24] MEDS: LORazepam Inj 2mg/ml 1ml IV PRN (21:31)
[2019-02-25] VITALS: BP 100/66
--- NOTE | 2019-02-25 00:07 | Neurology Progress Note ---
Interim History Interim History ROS Limited/Unobtainable: Yes Complaints: AMS Events: This visit was performed on February 24, 2019 under supervision of Roque Abarca MD Interim History No new events Objective Physical Exam Last Vital Signs Date Time Temp Pulse Resp B/P (MAP) Pulse Ox O2 Delivery O2 Flow Rate FiO2 02/24/19 21:10 Room Air 02/24/19 20:33 98.4 73 14 125/64 (84) 02/24/19 15:48 98 02/24/19 08:10 2.0 28 Laboratory Tests Test 02/24/19 08:45 White Blood Count 8.5 K/UL (4.8-10.8) Red Blood Count 3.96 M/UL (4.70-6.10) L Hemoglobin 12.2 G/DL (14.2-18.0) L Hematocrit 37.1 % (42.0-52.0) L Mean Corpuscular Volume 94 FL (80-99) Mean Corpuscular Hemoglobin 30.9 PG (27.0-31.0) Mean Corpuscular Hemoglobin Concent 33.0 G/DL (32.0-36.0) Red Cell Distribution Width 12.6 % (11.6-14.8) Platelet Count 254 K/UL (150-450) Mean Platelet Volume 5.7 FL (6.5-10.1) L Neutrophils (%) (Auto) 39.9 % (45.0-75.0) L Lymphocytes (%) (Auto) 48.2 % (20.0-45.0) H Monocytes (%) (Auto) 9.1 % (1.0-10.0) Eosinophils (%) (Auto) 1.8 % (0.0-3.0) Basophils (%) (Auto) 1.0 % (0.0-2.0) General: other Head: normocophalic, other Neck: no rigidity EENT: benign Neurologic Exam Mental Status: awake Speech: other Language: other Cranial Nerve II: no papilledema Cranial Nerves III, IV, : PERRLA, EOMI Cranial Nerve VII: no facial asymmetry Cranial Nerve VIII: normal hearing Cranial Nerve XI: SCM symmetric Cranial Nerve XII: tongue midline Motor System: strength 5/5 Sensory: normal pinprick, normal light touch Objective Exam remains non focal and abnormal - patient continues to be able to move all extremities with equal strength to command or localizing in response to noxious stimuli. However, not verbalizing normally, not tracking with eyes, pupils are now equal, 3+ and sluggishly reactive Impression/Recommendations Problems: (1) Dementia with behavioral disturbance Assessment & Plan: Exam more lethargic -possible secondary to procedure today. Will follow. (2) UTI (urinary tract infection) Assessment & Plan: Abx as per ID (3) Acute encephalopathy Assessment & Plan: EEG 02/18/19 This is an abnormal EEG characterized by: 1. Slowing of the background in the 4-5 Hz theta and 1.5-2 Hz delta range. 2. The presence of slow sleep spindles seen in the frontocentral region. No evidence of seizures, but severely moderate encephalopathy correlating to behavioral disturbance and possible delirium/ psychosis. Consider reassessment of EEG (4) Failure to thrive syndrome, adult Assessment & Plan: S/P PEG on enteral feeds now (5) Acute hypoactive delirium due to multiple etiologies Assessment & Plan: Consider changing current psychotropic regimen - Seroquel not appearing to be effective. (6) Dementia, vascular Status: stable, not improved, unchanged Recommendations Maintain normothermia Abx as per ID Na 135-145 Maintain sleep hygiene for patient - recommend Melatonin 3mg QHS Avoid use of benzodiazapenes, anticholinergics, and opioid narcotics. Daytime stimulation of patient with PT may be helpful . Seroquel recently increased, consider reperforming EEG if no improvement in mentation Lydia Obrien N.P. February 25, 2019 00:07
--- NOTE | 2019-02-25 00:30 | Progress Note ---
DATE: 02/24/2019 PSYCHIATRY PROGRESS NOTE SUBJECTIVE: The patient is doing relatively well. Continues to be having episodes of agitation. He is confused and disoriented. Mood is anxious and agitated. Affect is constricted. Congruent with mood. Thought process is concrete. Thought content, no suicidal or homicidal ideation. Cognition is impaired. MENTAL STATUS EXAMINATION: The patient is alert and oriented times self. Disoriented to the situation, time, and place. Mood is neutral to agitation. Affect is flat. Thought process, there is a paucity of thought content. Thought content, no suicidal or homicidal ideation. Cognition is impaired. ASSESSMENT: Dementia with behavior disturbance. PLAN: 1. Continue the Zyprexa p.r.n. 2. Continue Haldol IM p.r.n. 3. Continue the Depakote with and behavior issues as well as the possibility of seizure. 4. We will continue Ativan p.r.n. 5. Provide the patient with reality orientation and supportive therapy. Mckenna Bermudez M.D. DR: NAS JOB#: [id number] CC:
--- NOTE | 2019-02-25 03:48 | Neurology Progress Note ---
Interim History Interim History ROS Limited/Unobtainable: Yes Complaints: AMS Events: This visit was performed on February 25, 2019 under supervision of Roque Abarca MD Review of Systems All Systems: reviewed and negative except above Objective Physical Exam Last Vital Signs Date Time Temp Pulse Resp B/P (MAP) Pulse Ox O2 Delivery O2 Flow Rate FiO2 02/25/19 00:00 98.9 91 20 100/66 (77) 02/24/19 21:10 Room Air 02/24/19 15:48 98 02/24/19 08:10 2.0 28 Laboratory Tests Test 02/24/19 08:45 White Blood Count 8.5 K/UL (4.8-10.8) Red Blood Count 3.96 M/UL (4.70-6.10) L Hemoglobin 12.2 G/DL (14.2-18.0) L Hematocrit 37.1 % (42.0-52.0) L Mean Corpuscular Volume 94 FL (80-99) Mean Corpuscular Hemoglobin 30.9 PG (27.0-31.0) Mean Corpuscular Hemoglobin Concent 33.0 G/DL (32.0-36.0) Red Cell Distribution Width 12.6 % (11.6-14.8) Platelet Count 254 K/UL (150-450) Mean Platelet Volume 5.7 FL (6.5-10.1) L Neutrophils (%) (Auto) 39.9 % (45.0-75.0) L Lymphocytes (%) (Auto) 48.2 % (20.0-45.0) H Monocytes (%) (Auto) 9.1 % (1.0-10.0) Eosinophils (%) (Auto) 1.8 % (0.0-3.0) Basophils (%) (Auto) 1.0 % (0.0-2.0) General: other Head: normocophalic, other Neck: no rigidity EENT: benign Neurologic Exam Mental Status: awake Speech: other Language: other Cranial Nerve II: no papilledema Cranial Nerves III, IV, : PERRLA, EOMI Cranial Nerve VII: no facial asymmetry Cranial Nerve VIII: normal hearing Cranial Nerve XI: SCM symmetric Cranial Nerve XII: tongue midline Motor System: strength 5/5 Sensory: normal pinprick, normal light touch Objective Exam remains non focal and abnormal - patient continues to be able to move all extremities with equal strength to command or localizing in response to noxious stimuli. However, not verbalizing normally, not tracking with eyes, pupils are now equal, 3+ and sluggishly reactive Impression/Recommendations Problems: (1) Dementia with behavioral disturbance Assessment & Plan: Exam more lethargic -possible secondary to procedure today. Will follow. (2) UTI (urinary tract infection) Assessment & Plan: Abx as per ID (3) Acute encephalopathy Assessment & Plan: EEG 02/18/19 This is an abnormal EEG characterized by: 1. Slowing of the background in the 4-5 Hz theta and 1.5-2 Hz delta range. 2. The presence of slow sleep spindles seen in the frontocentral region. No evidence of seizures, but severely moderate encephalopathy correlating to behavioral disturbance and possible delirium/ psychosis. Consider reassessment of EEG (4) Failure to thrive syndrome, adult Assessment & Plan: S/P PEG on enteral feeds now (5) Acute hypoactive delirium due to multiple etiologies Assessment & Plan: Consider changing current psychotropic regimen - Seroquel not appearing to be effective. (6) Dementia, vascular Status: stable, not improved, unchanged Recommendations Avoid use of benzodiazapenes, anticholinergics, and opioid narcotics. Daytime stimulation of patient with PT may be helpful . Seroquel recently increased, consider reperforming EEG if no improvement in mentation Lydia Obrien N.P. February 25, 2019 03:48
[2019-02-25 04:00] VITALS: BP 100/62
--- NOTE | 2019-02-25 07:06 | NUR ---
HAND-OFF: Report given to Carolina CARMEN.
[2019-02-25 07:30] LABS: BASOPHILS % (AUTO) 0.8 % (0.0-2.0); EOSINOPHILS % (AUTO) 1.3 % (0.0-3.0); HEMATOCRIT 36.9 % (42.0-52.0); HEMOGLOBIN 12.3 G/DL (14.2-18.0); LYMPHOCYTES % (AUTO) 35.7 % (20.0-45.0); MEAN CORPUSCULAR VOLUME 93 FL (80-99); MONOCYTES % (AUTO) 9.6 % (1.0-10.0); NEUTROPHILS % (AUTO) 52.5 % (45.0-75.0); PLATELET COUNT 296 K/UL (150-450); RED BLOOD COUNT 3.97 M/UL (4.70-6.10); RED CELL DISTRIBUTION WIDTH 12.9 % (11.6-14.8); WHITE BLOOD COUNT 8.9 K/UL (4.8-10.8)
--- NOTE | 2019-02-25 07:41 | NUR ---
NURSE NOTES: Received pt from KERMIT MENDOZA, pt is confused and orient x2. pt is in RA, No SOB or acute respiratory distress noted. pt has g tube in place is working well. pt has intact iv access LH 24G SL. Pt has condom cath is running well.all needs attended, bed is locked and is in the lowest position, call light within easy reach. will continue to monitor.
[2019-02-25 07:52] LABS: ANION GAP 6 mmol/L (5-15); BLOOD UREA NITROGEN 34 mg/dL (7-18); CARBON DIOXIDE 29 MMOL/L (21-32); CHLORIDE 102 MMOL/L (98-107); CREATININE 1.5 MG/DL (0.55-1.30); SODIUM 137 MMOL/L (136-145)
[2019-02-25 08:00] VITALS: BP 103/72
[2019-02-25] MEDS: Tamsulosin 0.4mg cap ORAL SCH ×2 (08:09→17:06)
[2019-02-25] MEDS: Valproic Acid 250mg/5ml Liquid GT SCH ×2 (08:10→20:47)
[2019-02-25] MEDS: Docusate 100mg/10ml Liq GT SCH ×2 (08:10→17:06)
[2019-02-25] MEDS: Heparin 5000 units/ml inj SUBQ SCH ×2 (08:11→20:48)
--- NOTE | 2019-02-25 09:49 | GI Progress Note ---
Assessment/Plan Problems: (1) Encounter for PEG (percutaneous endoscopic gastrostomy) ICD Codes: Z43.1 - Encounter for attention to gastrostomy SNOMED: 331971246, 024908352 (2) Hepatitis C ICD Codes: B19.20 - Unspecified viral hepatitis C without hepatic coma SNOMED: 41496091 (3) Failure to thrive syndrome, adult ICD Codes: R62.7 - Failure to thrive syndrome, adult SNOMED: 481033460 (4) Dementia with behavioral disturbance ICD Codes: F03.91 - Unspecified dementia with behavioral disturbance SNOMED: 3527086764129 (5) Ileus ICD Codes: K56.7 - Ileus, unspecified SNOMED: 916448080 Status: stable, unchanged Status Narrative Discussed with Dr. Samuel. Assessment/Plan Status post PEG G-tube feedings per dietitian Continue antibiotics GT site care daily and as needed Elevate head of bed at all times PRN transfusion PPI Reglan as needed for GI motility DC planning The patient was seen and examined at bedside and all new and available data was reviewed in the patients chart. I agree with the above findings, impression and plan. (Patient seen earlier today. Signature stamp does not reflect patient encounter time.). - Min Samuel MD Subjective Subjective Limited Objective Last 24 Hour Vital Signs Date Time Temp Pulse Resp B/P (MAP) Pulse Ox O2 Delivery O2 Flow Rate FiO2 02/25/19 09:00 Room Air 02/25/19 08:02 Room Air 21 02/25/19 08:02 96 Room Air 21 02/25/19 08:00 98.0 86 18 103/72 (82) 93 02/25/19 04:00 97.6 80 16 100/62 (75) 02/25/19 00:00 98.9 91 20 100/66 (77) 02/24/19 21:10 Room Air 02/24/19 20:33 98.4 73 14 125/64 (84) 02/24/19 15:48 97.8 69 18 104/62 (76) 98 02/24/19 12:00 97.6 74 18 118/77 (91) 98 Intake and Output 02/24/19 02/25/19 18:59 06:59 Intake Total 960 ml 755 ml Output Total 1000 ml 600 ml Balance -40 ml 155 ml Intake Free Water 300 ml 150 ml Tube Feeding 660 ml 605 ml Output Urine Total 1000 ml 600 ml # Bowel Movements 1 Laboratory Tests Test 02/25/19 07:04 White Blood Count 8.9 K/UL (4.8-10.8) Red Blood Count 3.97 M/UL (4.70-6.10) L Hemoglobin 12.3 G/DL (14.2-18.0) L Hematocrit 36.9 % (42.0-52.0) L Mean Corpuscular Volume 93 FL (80-99) Mean Corpuscular Hemoglobin 31.0 PG (27.0-31.0) Mean Corpuscular Hemoglobin Concent 33.3 G/DL (32.0-36.0) Red Cell Distribution Width 12.9 % (11.6-14.8) Platelet Count 296 K/UL (150-450) Mean Platelet Volume 5.6 FL (6.5-10.1) L Neutrophils (%) (Auto) 52.5 % (45.0-75.0) Lymphocytes (%) (Auto) 35.7 % (20.0-45.0) Monocytes (%) (Auto) 9.6 % (1.0-10.0) Eosinophils (%) (Auto) 1.3 % (0.0-3.0) Basophils (%) (Auto) 0.8 % (0.0-2.0) Sodium Level 137 MMOL/L (136-145) Potassium Level 5.0 MMOL/L (3.5-5.1) Chloride Level 102 MMOL/L (98-107) Carbon Dioxide Level 29 MMOL/L (21-32) Anion Gap 6 mmol/L (5-15) Blood Urea Nitrogen 34 mg/dL (7-18) H Creatinine 1.5 MG/DL (0.55-1.30) H Estimat Glomerular Filtration Rate 56.2 mL/min (>60) Glucose Level 95 MG/DL (74-106) Calcium Level 9.0 MG/DL (8.5-10.1) Height (Feet): 5 Height (Inches): 6.00 Weight (Pounds): 109 General Appearance: alert Cardiovascular: normal rate Respiratory/Chest: no respiratory distress Abdominal Exam: GT site - c//Daniel Charles [employer]AL RO[employer]ER February 25, 2019 09:49
--- NOTE | 2019-02-25 10:37 | Cardiac Electrophysiology PN ---
Assessment/Plan Assessment/Plan 1. Hypotension, resolved with IV antibiotic and fluids. Echo Nl EF. No ID 2. Dementia. 3. Renal failure and hypernatremia due to dehydration. Resolved with IV fluids. 4. S/P PEG by Dr. Lizzie OBANDO RN and at bedside Subjective Subjective Confused off restraints today. GT feeding ongoing. at bedside Objective Last 24 Hour Vital Signs Date Time Temp Pulse Resp B/P (MAP) Pulse Ox O2 Delivery O2 Flow Rate FiO2 02/25/19 09:00 Room Air 02/25/19 08:02 Room Air 21 02/25/19 08:02 96 Room Air 21 02/25/19 08:00 98.0 86 18 103/72 (82) 93 02/25/19 04:00 97.6 80 16 100/62 (75) 02/25/19 00:00 98.9 91 20 100/66 (77) 02/24/19 21:10 Room Air 02/24/19 20:33 98.4 73 14 125/64 (84) 02/24/19 15:48 97.8 69 18 104/62 (76) 98 02/24/19 12:00 97.6 74 18 118/77 (91) 98 Intake and Output 02/24/19 02/25/19 18:59 06:59 Intake Total 960 ml 755 ml Output Total 1000 ml 600 ml Balance -40 ml 155 ml Intake Free Water 300 ml 150 ml Tube Feeding 660 ml 605 ml Output Urine Total 1000 ml 600 ml # Bowel Movements 1 Laboratory Tests Test 02/25/19 07:04 White Blood Count 8.9 K/UL (4.8-10.8) Red Blood Count 3.97 M/UL (4.70-6.10) L Hemoglobin 12.3 G/DL (14.2-18.0) L Hematocrit 36.9 % (42.0-52.0) L Mean Corpuscular Volume 93 FL (80-99) Mean Corpuscular Hemoglobin 31.0 PG (27.0-31.0) Mean Corpuscular Hemoglobin Concent 33.3 G/DL (32.0-36.0) Red Cell Distribution Width 12.9 % (11.6-14.8) Platelet Count 296 K/UL (150-450) Mean Platelet Volume 5.6 FL (6.5-10.1) L Neutrophils (%) (Auto) 52.5 % (45.0-75.0) Lymphocytes (%) (Auto) 35.7 % (20.0-45.0) Monocytes (%) (Auto) 9.6 % (1.0-10.0) Eosinophils (%) (Auto) 1.3 % (0.0-3.0) Basophils (%) (Auto) 0.8 % (0.0-2.0) Sodium Level 137 MMOL/L (136-145) Potassium Level 5.0 MMOL/L (3.5-5.1) Chloride Level 102 MMOL/L (98-107) Carbon Dioxide Level 29 MMOL/L (21-32) Anion Gap 6 mmol/L (5-15) Blood Urea Nitrogen 34 mg/dL (7-18) H Creatinine 1.5 MG/DL (0.55-1.30) H Estimat Glomerular Filtration Rate 56.2 mL/min (>60) Glucose Level 95 MG/DL (74-106) Calcium Level 9.0 MG/DL (8.5-10.1) Objective HEAD AND NECK: No JVD. LUNGS: Clear CARDIOVASCULAR: Regular S1 and S2 with no gallop or murmur. ABDOMEN: Soft.PEG in place EXTREMITIES: No pitting edema. Bryce Ba MD February 25, 2019 10:37
--- NOTE | 2019-02-25 11:10 | Nephrology Progress Note ---
Assessment/Plan Problem List: (1) ARF (acute renal failure) Assessment: cr lowering (2) CKD (chronic kidney disease) (3) Failure to thrive syndrome, adult (4) Hypernatremia Assessment Acute encephalopathy Psych history & Paranoia h/o Prostate cancer CKD (chronic kidney disease), superimposed ARF / Dehydration h/o Hepatitis C h/o Dementia Plan IV bolus start Midodrine monitor renal parameters keep BP and BS in check per orders Subjective ROS Limited/Unobtainable: No Constitutional: Reports: malaise Objective Objective Last 24 Hour Vital Signs Date Time Temp Pulse Resp B/P (MAP) Pulse Ox O2 Delivery O2 Flow Rate FiO2 02/25/19 09:00 Room Air 02/25/19 08:02 Room Air 21 02/25/19 08:02 96 Room Air 21 02/25/19 08:00 98.0 86 18 103/72 (82) 93 02/25/19 04:00 97.6 80 16 100/62 (75) 02/25/19 00:00 98.9 91 20 100/66 (77) 02/24/19 21:10 Room Air 02/24/19 20:33 98.4 73 14 125/64 (84) 02/24/19 15:48 97.8 69 18 104/62 (76) 98 02/24/19 12:00 97.6 74 18 118/77 (91) 98 Intake and Output 02/24/19 02/25/19 18:59 06:59 Intake Total 960 ml 755 ml Output Total 1000 ml 600 ml Balance -40 ml 155 ml Intake Free Water 300 ml 150 ml Tube Feeding 660 ml 605 ml Output Urine Total 1000 ml 600 ml # Bowel Movements 1 Laboratory Tests 02/25/19 07:04: White Blood Count 8.9, Red Blood Count 3.97L, Hemoglobin 12.3L, Hematocrit 36.9L , Mean Corpuscular Volume 93, Mean Corpuscular Hemoglobin 31.0, Mean Corpuscular Hemoglobin Concent 33.3, Red Cell Distribution Width 12.9, Platelet Count 296, Mean Platelet Volume 5.6L, Neutrophils (%) (Auto) 52.5, Lymphocytes ( %) (Auto) 35.7, Monocytes (%) (Auto) 9.6, Eosinophils (%) (Auto) 1.3, Basophils (%) (Auto) 0.8, Sodium Level 137, Potassium Level 5.0, Chloride Level 102, Carbon Dioxide Level 29, Anion Gap 6, Blood Urea Nitrogen 34H, Creatinine 1.5H, Estimat Glomerular Filtration Rate 56.2, Glucose Level 95, Calcium Level 9.0 Height (Feet): 5 Height (Inches): 6.00 Weight (Pounds): 109 Objective no change Tanner Grant MD February 25, 2019 11:10
--- NOTE | 2019-02-25 11:17 | NUR ---
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 CKD . UTI VS: 100/66, P 91, T 97.6, RR 20, SpO2 93 BUN 34, CR 1.5, RBC 3.97, H&H 12.3/36.9 IS:HALDOL 5mg HEPARIN SUBQ VALPROIC ACID 500mg FLOMAX 0.4mg MIDODRINE 2.5mg AMBIEN 5mg DC PLANNING TO SNF MED/SURG STATUS
[2019-02-25 11:54] VITALS: BP 91/63
--- NOTE | 2019-02-25 12:07 | General Progress Note ---
Assessment/Plan Problem List: (1) UTI (urinary tract infection) ICD Codes: N39.0 - Urinary tract infection, site not specified SNOMED: 90781953 (2) CKD (chronic kidney disease) ICD Codes: N18.9 - CKD (chronic kidney disease) SNOMED: 968149963 (3) ARF (acute renal failure) ICD Codes: N17.9 - ARF (acute renal failure) SNOMED: 58253480 (4) Failure to thrive syndrome, adult ICD Codes: R62.7 - Failure to thrive syndrome, adult SNOMED: 503861756 (5) Hepatitis C ICD Codes: B19.20 - Unspecified viral hepatitis C without hepatic coma SNOMED: 99057869 (6) HTN (hypertension) ICD Codes: I10 - Essential (primary) hypertension SNOMED: 37162030 Status: unchanged Assessment/Plan: pt diet abx gi eval dc plan snf Subjective Constitutional: Reports: weakness Allergies: Uncoded Allergies: anesthetics unspecified (Allergy, Mild, 02/12/19) sulfonamides (Allergy, Mild, rash, 02/12/19) All Systems: reviewed and negative except above Subjective sleepy calm Objective Last 24 Hour Vital Signs Date Time Temp Pulse Resp B/P (MAP) Pulse Ox O2 Delivery O2 Flow Rate FiO2 02/25/19 11:54 98.2 73 17 91/63 (72) 94 02/25/19 09:00 Room Air 02/25/19 08:02 Room Air 21 02/25/19 08:02 96 Room Air 21 02/25/19 08:00 98.0 86 18 103/72 (82) 93 02/25/19 04:00 97.6 80 16 100/62 (75) 02/25/19 00:00 98.9 91 20 100/66 (77) 02/24/19 21:10 Room Air 02/24/19 20:33 98.4 73 14 125/64 (84) 02/24/19 15:48 97.8 69 18 104/62 (76) 98 Intake and Output 02/24/19 02/25/19 18:59 06:59 Intake Total 960 ml 755 ml Output Total 1000 ml 600 ml Balance -40 ml 155 ml Intake Free Water 300 ml 150 ml Tube Feeding 660 ml 605 ml Output Urine Total 1000 ml 600 ml # Bowel Movements 1 Laboratory Tests 02/25/19 07:04: White Blood Count 8.9, Red Blood Count 3.97L, Hemoglobin 12.3L, Hematocrit 36.9L , Mean Corpuscular Volume 93, Mean Corpuscular Hemoglobin 31.0, Mean Corpuscular Hemoglobin Concent 33.3, Red Cell Distribution Width 12.9, Platelet Count 296, Mean Platelet Volume 5.6L, Neutrophils (%) (Auto) 52.5, Lymphocytes ( %) (Auto) 35.7, Monocytes (%) (Auto) 9.6, Eosinophils (%) (Auto) 1.3, Basophils (%) (Auto) 0.8, Sodium Level 137, Potassium Level 5.0, Chloride Level 102, Carbon Dioxide Level 29, Anion Gap 6, Blood Urea Nitrogen 34H, Creatinine 1.5H, Estimat Glomerular Filtration Rate 56.2, Glucose Level 95, Calcium Level 9.0 Height (Feet): 5 Height (Inches): 6.00 Weight (Pounds): 109 General Appearance: lethargic EENT: normal ENT inspection Neck: normal alignment Cardiovascular: normal peripheral pulses, normal rate, regular rhythm Respiratory/Chest: chest wall non-tender, lungs clear, normal breath sounds Abdomen: normal bowel sounds, non tender, soft Extremities: normal inspection Edema: no edema noted Arm (L), no edema noted Arm (R), no edema noted Leg (L), no edema noted Leg (R), no edema noted Pedal (L), no edema noted Pedal (R), no edema noted Generalized Neurologic: motor weakness Skin: normal pigmentation, warm/dry Jaleel Moon DO February 25, 2019 12:07
--- NOTE | 2019-02-25 13:07 | NUR ---
*-* INSURANCE *-* UPDATED CLINICALS AND REVIEWS HAVE BEEN FAXED TO: [facility] P- [phone] F- [phone]...REVIEW/CLINICAL
--- NOTE | 2019-02-25 13:11 | Pulmonology Progress Note ---
Assessment/Plan Problems: (1) Acute encephalopathy (2) Sepsis (3) ATN (acute tubular necrosis) (4) Pyelonephritis (5) Prostate cancer (6) Cerebral vascular disease (7) Methadone maintenance therapy patient (8) HTN (hypertension) (9) Hepatitis C Assessment/Plan episode of hypotension, NS bolus doing better more awake all reviewed PEG in place, tolerating feeding bun/creatinine improving neuro consult appreciated more awake now iv fluids check cultures neuro f/u Subjective ROS Limited/Unobtainable: No Constitutional: Reports: no symptoms HEENT: Repors: no symptoms Respiratory: Reports: no symptoms Allergies: Uncoded Allergies: anesthetics unspecified (Allergy, Mild, 02/12/19) sulfonamides (Allergy, Mild, rash, 02/12/19) Objective Last 24 Hour Vital Signs Date Time Temp Pulse Resp B/P (MAP) Pulse Ox O2 Delivery O2 Flow Rate FiO2 02/25/19 11:54 98.2 73 17 91/63 (72) 94 02/25/19 09:00 Room Air 02/25/19 08:02 Room Air 21 02/25/19 08:02 96 Room Air 21 02/25/19 08:00 98.0 86 18 103/72 (82) 93 02/25/19 04:00 97.6 80 16 100/62 (75) 02/25/19 00:00 98.9 91 20 100/66 (77) 02/24/19 21:10 Room Air 02/24/19 20:33 98.4 73 14 125/64 (84) 02/24/19 15:48 97.8 69 18 104/62 (76) 98 Intake and Output 02/24/19 02/25/19 18:59 06:59 Intake Total 960 ml 755 ml Output Total 1000 ml 600 ml Balance -40 ml 155 ml Intake Free Water 300 ml 150 ml Tube Feeding 660 ml 605 ml Output Urine Total 1000 ml 600 ml # Bowel Movements 1 Objective General Appearance: cachectic Lines, tubes and drains: peripheral HEENT: normocephalic, atraumatic Neck: non-tender, normal alignment Respiratory/Chest: chest wall non-tender, lungs clear Cardiovascular/Chest: normal peripheral pulses, normal rate Abdomen: normal bowel sounds Extremities: normal range of motion Laboratory Tests 02/25/19 07:04: White Blood Count 8.9, Red Blood Count 3.97L, Hemoglobin 12.3L, Hematocrit 36.9L , Mean Corpuscular Volume 93, Mean Corpuscular Hemoglobin 31.0, Mean Corpuscular Hemoglobin Concent 33.3, Red Cell Distribution Width 12.9, Platelet Count 296, Mean Platelet Volume 5.6L, Neutrophils (%) (Auto) 52.5, Lymphocytes ( %) (Auto) 35.7, Monocytes (%) (Auto) 9.6, Eosinophils (%) (Auto) 1.3, Basophils (%) (Auto) 0.8, Sodium Level 137, Potassium Level 5.0, Chloride Level 102, Carbon Dioxide Level 29, Anion Gap 6, Blood Urea Nitrogen 34H, Creatinine 1.5H, Estimat Glomerular Filtration Rate 56.2, Glucose Level 95, Calcium Level 9.0 Current Medications Medications (Trade) Dose Ordered Sig/Lucie Route PRN Reason Start Time Stop Time Status Last Admin Dose Admin Acetaminophen (Tylenol) 650 mg Q4H PRN ORAL Mild Pain/Temp > 100.5 02/12/19 08:15 03/14/19 08:14 02/14/19 00:45 Clonidine HCl (Catapres Tab) 0.1 mg Q4H PRN ORAL For High Blood Pressure 02/12/19 08:15 03/14/19 08:14 Dextrose (Dextrose 50%) 25 ml Q30M PRN IV Hypoglycemia 02/12/19 08:15 03/14/19 08:14 Dextrose (Dextrose 50%) 50 ml Q30M PRN IV Hypoglycemia 02/12/19 08:15 03/14/19 08:14 Docusate Sodium (Colace) 100 mg TWICE A DAY GT 02/19/19 10:00 03/14/19 08:59 02/25/19 08:10 Haloperidol (Haldol) 5 mg Q6H PRN ORAL Agitation 02/12/19 08:30 03/14/19 08:29 02/25/19 10:42 Heparin Sodium (Porcine) (Heparin 5000 units/ml) 5,000 units EVERY 12 HOURS SUBQ 02/12/19 09:00 03/14/19 08:59 02/25/19 08:11 Midodrine (Pro-Amatine) 2.5 mg THREE TIMES A DAY GT 02/20/19 13:00 6/3/19 12:59 02/25/19 08:09 Olanzapine (ZyPREXA) 2.5 mg TID PRN ORAL agitation 02/23/19 12:00 03/14/19 13:59 Ondansetron HCl (Zofran) 4 mg Q6H PRN IVP Nausea & Vomiting 02/12/19 08:15 03/14/19 08:14 Polyethylene Glycol (Miralax) 17 gm HSPRN PRN ORAL Constipation 02/12/19 08:15 03/14/19 08:14 Tamsulosin HCl (Flomax) 0.4 mg BID ORAL 02/12/19 18:00 03/14/19 17:59 02/25/19 08:09 Valproic Acid (Depakene) 500 mg Q12HR GT 02/19/19 21:00 03/21/19 20:59 02/25/19 08:10 German Mooney MD February 25, 2019 13:11
[2019-02-25 16:00] VITALS: BP 104/69
--- NOTE | 2019-02-25 19:28 | NUR ---
NURSE NOTES: Pt is in bed, asleep. No Acute distress noted. No SOB. Pt appears comfortable. HOB elevated. Glucerna 1.5 running at 55ml/hr via G-tube. Pt is bedbound, pt will be repositioned at least q2HRS. Bed locked low in position,side rails up, call light within reach. Bed alarm on. Fall precaution in place. Pt will be monitored.
--- NOTE | 2019-02-25 19:30 | NUR ---
HAND-OFF: Report given to RN LORIN.
[2019-02-25 20:00] VITALS: BP 109/71
--- NOTE | 2019-02-25 22:30 | Progress Note ---
DATE: 02/25/2019 SUBJECTIVE: The patient is asleep arousable continues to have episodes of agitation, confused, had waxing and waning of consciousness. Memory is impaired. MENTAL STATUS EXAMINATION: The patient is alert, confused, disoriented, has waxing and waning of consciousness. Mood is neutral to anxious. Affect is constricted, congruent with mood. Thought process is tangential. Thought content, no suicidal or homicidal ideation. Memory attention impaired. ASSESSMENT: 1. Acute encephalopathy. 2. Dementia with behavior disturbance. PLAN: We will continue the current medication. The patient lacks capacity. Mckenna Bermudez M.D. DR: ROSANNA JOB#: [id number] CC: HERLINDA
[2019-02-26] VITALS: BP 110/72
[2019-02-26 04:00] VITALS: BP 102/68
--- NOTE | 2019-02-26 05:30 | NUR ---
NURSE NOTES: Pt is in bed, awake and verbal. Pt is less agitated today. Glucerna 1.2 running at 55ml/hr. G-tube flushed; patent. Pt was cleaned and bed linen changed.
--- NOTE | 2019-02-26 06:21 | NUR ---
NURSE NOTES: Pt's Lashonda states that she can probably take pt home with home health, she said that she spoke to BANDAR Mcpherson regarding that. Pt's is also requesting a waterproofing mixer consult for patient. Dr. Mooney is made aware.
[2019-02-26 06:32] LABS: BASOPHILS % (AUTO) 0.5 % (0.0-2.0); EOSINOPHILS % (AUTO) 1.6 % (0.0-3.0); HEMATOCRIT 37.4 % (42.0-52.0); HEMOGLOBIN 12.4 G/DL (14.2-18.0); LYMPHOCYTES % (AUTO) 42.4 % (20.0-45.0); MEAN CORPUSCULAR VOLUME 94 FL (80-99); MONOCYTES % (AUTO) 7.5 % (1.0-10.0); PLATELET COUNT 260 K/UL (150-450); RED BLOOD COUNT 3.98 M/UL (4.70-6.10); RED CELL DISTRIBUTION WIDTH 13.3 % (11.6-14.8); WHITE BLOOD COUNT 8.9 K/UL (4.8-10.8)
[2019-02-26 06:39] LABS: ANION GAP 5 mmol/L (5-15); BLOOD UREA NITROGEN 37 mg/dL (7-18); CARBON DIOXIDE 29 MMOL/L (21-32); CHLORIDE 102 MMOL/L (98-107); CREATININE 1.5 MG/DL (0.55-1.30); POTASSIUM 5.2 MMOL/L (3.5-5.1); SODIUM 136 MMOL/L (136-145)
--- NOTE | 2019-02-26 07:15 | NUR ---
HAND-OFF: Report given to KERMIT Figueroa.Endorsed to Carolina to call Dr. Mooney regarding K+ level 5.2.
--- NOTE | 2019-02-26 07:17 | NUR ---
NURSE NOTES: Received pt from RN LORIN, pt is confused and orient x2. pt is in RA, No SOB or acute respiratory distress noted. pt has g tube in place is working well. pt has intact iv access L leg 22G SL. Pt has condom cath is running well. Dr tamez is aware about K. pt's is on bed side. all needs attended, bed is locked and is in the lowest position, call light within easy reach. will continue to monitor.
[2019-02-26 08:00] VITALS: BP 123/73
[2019-02-26] MEDS: Valproic Acid 250mg/5ml Liquid GT SCH (08:10)
[2019-02-26] MEDS: Tamsulosin 0.4mg cap ORAL SCH ×2 (08:10→18:18)
[2019-02-26] MEDS: Docusate 100mg/10ml Liq GT SCH ×2 (08:11→18:18)
[2019-02-26] MEDS: Heparin 5000 units/ml inj SUBQ SCH (08:13)
[2019-02-26] MEDS ORDERED: Sodium Polystyrene Sulfonate 15gm Powder GT SCH (09:00)
--- NOTE | 2019-02-26 10:21 | NUR ---
*-* INSURANCE *-* UPDATED CLINICALS HAVE BEEN FAXED TO: [facility] P- [phone] F- [phone]...REVIEW/CLINICAL
--- NOTE | 2019-02-26 11:29 | GI Progress Note ---
Assessment/Plan Problems: (1) Encounter for PEG (percutaneous endoscopic gastrostomy) ICD Codes: Z43.1 - Encounter for attention to gastrostomy SNOMED: 354663116, 751039587 (2) Hepatitis C ICD Codes: B19.20 - Unspecified viral hepatitis C without hepatic coma SNOMED: 51920375 (3) Failure to thrive syndrome, adult ICD Codes: R62.7 - Failure to thrive syndrome, adult SNOMED: 375101744 (4) Dementia with behavioral disturbance ICD Codes: F03.91 - Unspecified dementia with behavioral disturbance SNOMED: 6491450018875 (5) Ileus ICD Codes: K56.7 - Ileus, unspecified SNOMED: 254320152 Status: stable Status Narrative Discussed with Dr. Samuel. Assessment/Plan Status post PEG G-tube feedings per dietitian Continue antibiotics GT site care daily and as needed Elevate head of bed at all times PRN transfusion PPI Reglan as needed for GI motility DC planning The patient was seen and examined at bedside and all new and available data was reviewed in the patients chart. I agree with the above findings, impression and plan. (Patient seen earlier today. Signature stamp does not reflect patient encounter time.). - Min Samuel MD Subjective Subjective Limited Objective Last 24 Hour Vital Signs Date Time Temp Pulse Resp B/P (MAP) Pulse Ox O2 Delivery O2 Flow Rate FiO2 02/26/19 09:00 Room Air 02/26/19 08:00 98.8 83 20 123/73 (90) 95 02/26/19 04:00 98.2 84 17 102/68 (79) 94 02/26/19 00:00 97.5 77 18 110/72 (85) 94 02/25/19 21:00 Room Air 02/25/19 20:00 97.6 76 17 109/71 (84) 94 02/25/19 19:31 Room Air 21 02/25/19 19:31 94 Room Air 21 02/25/19 16:00 98.0 65 17 104/69 (81) 94 02/25/19 11:54 98.2 73 17 91/63 (72) 94 Intake and Output 02/25/19 02/26/19 19:00 07:00 Intake Total 1110 ml 960 ml Output Total 450 ml Balance 660 ml 960 ml Intake Free Water 450 ml 300 ml Tube Feeding 660 ml 660 ml Output Urine Total 450 ml Laboratory Tests Test 02/26/19 05:30 White Blood Count 8.9 K/UL (4.8-10.8) Red Blood Count 3.98 M/UL (4.70-6.10) L Hemoglobin 12.4 G/DL (14.2-18.0) L Hematocrit 37.4 % (42.0-52.0) L Mean Corpuscular Volume 94 FL (80-99) Mean Corpuscular Hemoglobin 31.2 PG (27.0-31.0) H Mean Corpuscular Hemoglobin Concent 33.2 G/DL (32.0-36.0) Red Cell Distribution Width 13.3 % (11.6-14.8) Platelet Count 260 K/UL (150-450) Mean Platelet Volume 5.5 FL (6.5-10.1) L Neutrophils (%) (Auto) 48.0 % (45.0-75.0) Lymphocytes (%) (Auto) 42.4 % (20.0-45.0) Monocytes (%) (Auto) 7.5 % (1.0-10.0) Eosinophils (%) (Auto) 1.6 % (0.0-3.0) Basophils (%) (Auto) 0.5 % (0.0-2.0) Sodium Level 136 MMOL/L (136-145) Potassium Level 5.2 MMOL/L (3.5-5.1) H Chloride Level 102 MMOL/L (98-107) Carbon Dioxide Level 29 MMOL/L (21-32) Anion Gap 5 mmol/L (5-15) Blood Urea Nitrogen 37 mg/dL (7-18) H Creatinine 1.5 MG/DL (0.55-1.30) H Estimat Glomerular Filtration Rate 56.2 mL/min (>60) Glucose Level 90 MG/DL (74-106) Calcium Level 9.0 MG/DL (8.5-10.1) Height (Feet): 5 Height (Inches): 6.00 Weight (Pounds): 109 General Appearance: no apparent distress Cardiovascular: normal rate Respiratory/Chest: normal breath sounds, no respiratory distress Abdominal Exam: normal bowel sounds, non tender, soft, GT site Extremities: non-tender Zhu,Ava-Reij FENCE [employer]ER February 26, 2019 11:29
[2019-02-26 12:00] VITALS: BP 122/76
--- NOTE | 2019-02-26 12:08 | Cardiac Electrophysiology PN ---
Assessment/Plan Assessment/Plan 1. Hypotension, resolved with IV antibiotic and fluids. Echo Nl EF. No LA 2. Dementia. 3. Renal failure and hypernatremia due to dehydration. Resolved with IV fluids. 4. 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 Placement pending Objective Last 24 Hour Vital Signs Date Time Temp Pulse Resp B/P (MAP) Pulse Ox O2 Delivery O2 Flow Rate FiO2 02/26/19 10:49 95 Room Air 21 02/26/19 10:49 Room Air 21 02/26/19 09:00 Room Air 02/26/19 08:00 98.8 83 20 123/73 (90) 95 02/26/19 04:00 98.2 84 17 102/68 (79) 94 02/26/19 00:00 97.5 77 18 110/72 (85) 94 02/25/19 21:00 Room Air 02/25/19 20:00 97.6 76 17 109/71 (84) 94 02/25/19 19:31 Room Air 21 02/25/19 19:31 94 Room Air 21 02/25/19 16:00 98.0 65 17 104/69 (81) 94 Intake and Output 02/25/19 02/26/19 18:59 06:59 Intake Total 1110 ml 960 ml Output Total 450 ml Balance 660 ml 960 ml Intake Free Water 450 ml 300 ml Tube Feeding 660 ml 660 ml Output Urine Total 450 ml Laboratory Tests Test 02/26/19 05:30 White Blood Count 8.9 K/UL (4.8-10.8) Red Blood Count 3.98 M/UL (4.70-6.10) L Hemoglobin 12.4 G/DL (14.2-18.0) L Hematocrit 37.4 % (42.0-52.0) L Mean Corpuscular Volume 94 FL (80-99) Mean Corpuscular Hemoglobin 31.2 PG (27.0-31.0) H Mean Corpuscular Hemoglobin Concent 33.2 G/DL (32.0-36.0) Red Cell Distribution Width 13.3 % (11.6-14.8) Platelet Count 260 K/UL (150-450) Mean Platelet Volume 5.5 FL (6.5-10.1) L Neutrophils (%) (Auto) 48.0 % (45.0-75.0) Lymphocytes (%) (Auto) 42.4 % (20.0-45.0) Monocytes (%) (Auto) 7.5 % (1.0-10.0) Eosinophils (%) (Auto) 1.6 % (0.0-3.0) Basophils (%) (Auto) 0.5 % (0.0-2.0) Sodium Level 136 MMOL/L (136-145) Potassium Level 5.2 MMOL/L (3.5-5.1) H Chloride Level 102 MMOL/L (98-107) Carbon Dioxide Level 29 MMOL/L (21-32) Anion Gap 5 mmol/L (5-15) Blood Urea Nitrogen 37 mg/dL (7-18) H Creatinine 1.5 MG/DL (0.55-1.30) H Estimat Glomerular Filtration Rate 56.2 mL/min (>60) Glucose Level 90 MG/DL (74-106) Calcium Level 9.0 MG/DL (8.5-10.1) Objective HEAD AND NECK: No JVD. LUNGS: Clear CARDIOVASCULAR: Regular S1 and S2 with no gallop or murmur. ABDOMEN: Soft.PEG in place EXTREMITIES: No pitting edema. Bryce Ba MD February 26, 2019 12:08
--- NOTE | 2019-02-26 12:36 | NUR ---
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 CKD . UTI VS: BP 102/68, P 84, T 97.5, RR 20, SpO2 94 RBC 3.98, H&H 12.4/37.4, K 5.2, BUN 37, CR 1.5 IS:DEPAKENE 500mg HALDOL 5mG HEPARIN SUBQ KAYEXALATE 30gm MIDODRINE 2.5mg MED/SURG STATUS
--- NOTE | 2019-02-26 13:06 | Nephrology Progress Note ---
Assessment/Plan Problem List: (1) ARF (acute renal failure) Assessment: cr lowering (2) CKD (chronic kidney disease) (3) Failure to thrive syndrome, adult (4) Hypernatremia Assessment Acute encephalopathy Psych history & Paranoia h/o Prostate cancer CKD (chronic kidney disease), superimposed ARF / Dehydration h/o Hepatitis C h/o Dementia Plan IV bolus as needed start Midodrine monitor renal parameters keep BP and BS in check per orders Subjective ROS Limited/Unobtainable: No Constitutional: Reports: malaise Objective Objective Last 24 Hour Vital Signs Date Time Temp Pulse Resp B/P (MAP) Pulse Ox O2 Delivery O2 Flow Rate FiO2 02/26/19 12:00 98.6 80 18 122/76 (91) 98 02/26/19 10:49 95 Room Air 21 02/26/19 10:49 Room Air 21 02/26/19 09:00 Room Air 02/26/19 08:00 98.8 83 20 123/73 (90) 95 02/26/19 04:00 98.2 84 17 102/68 (79) 94 02/26/19 00:00 97.5 77 18 110/72 (85) 94 02/25/19 21:00 Room Air 02/25/19 20:00 97.6 76 17 109/71 (84) 94 02/25/19 19:31 Room Air 21 02/25/19 19:31 94 Room Air 21 02/25/19 16:00 98.0 65 17 104/69 (81) 94 Intake and Output 02/25/19 02/26/19 18:59 06:59 Intake Total 1110 ml 960 ml Output Total 450 ml Balance 660 ml 960 ml Intake Free Water 450 ml 300 ml Tube Feeding 660 ml 660 ml Output Urine Total 450 ml Laboratory Tests 02/26/19 05:30: White Blood Count 8.9, Red Blood Count 3.98L, Hemoglobin 12.4L, Hematocrit 37.4L , Mean Corpuscular Volume 94, Mean Corpuscular Hemoglobin 31.2H, Mean Corpuscular Hemoglobin Concent 33.2, Red Cell Distribution Width 13.3, Platelet Count 260, Mean Platelet Volume 5.5L, Neutrophils (%) (Auto) 48.0, Lymphocytes ( %) (Auto) 42.4, Monocytes (%) (Auto) 7.5, Eosinophils (%) (Auto) 1.6, Basophils (%) (Auto) 0.5, Sodium Level 136, Potassium Level 5.2H, Chloride Level 102, Carbon Dioxide Level 29, Anion Gap 5, Blood Urea Nitrogen 37H, Creatinine 1.5H, Estimat Glomerular Filtration Rate 56.2, Glucose Level 90, Calcium Level 9.0 Height (Feet): 5 Height (Inches): 6.00 Weight (Pounds): 109 General Appearance: no apparent distress Respiratory/Chest: lungs clear Abdomen: soft Objective no change Tanner Grant MD February 26, 2019 13:06
--- NOTE | 2019-02-26 13:18 | Pulmonology Progress Note ---
Assessment/Plan Problems: (1) Acute encephalopathy (2) Sepsis (3) ATN (acute tubular necrosis) (4) Pyelonephritis (5) Prostate cancer (6) Cerebral vascular disease (7) Methadone maintenance therapy patient (8) HTN (hypertension) (9) Hepatitis C Assessment/Plan episode of hypotension, NS bolus doing better more awake all reviewed PEG in place, tolerating feeding bun/creatinine improving neuro consult appreciated more awake now iv fluids check cultures neuro f/u Subjective Constitutional: Reports: no symptoms HEENT: Repors: no symptoms Respiratory: Reports: no symptoms Allergies: Uncoded Allergies: anesthetics unspecified (Allergy, Mild, 02/12/19) sulfonamides (Allergy, Mild, rash, 02/12/19) Objective Last 24 Hour Vital Signs Date Time Temp Pulse Resp B/P (MAP) Pulse Ox O2 Delivery O2 Flow Rate FiO2 02/26/19 12:00 98.6 80 18 122/76 (91) 98 02/26/19 10:49 95 Room Air 21 02/26/19 10:49 Room Air 21 02/26/19 09:00 Room Air 02/26/19 08:00 98.8 83 20 123/73 (90) 95 02/26/19 04:00 98.2 84 17 102/68 (79) 94 02/26/19 00:00 97.5 77 18 110/72 (85) 94 02/25/19 21:00 Room Air 02/25/19 20:00 97.6 76 17 109/71 (84) 94 02/25/19 19:31 Room Air 21 02/25/19 19:31 94 Room Air 21 02/25/19 16:00 98.0 65 17 104/69 (81) 94 Intake and Output 02/25/19 02/26/19 18:59 06:59 Intake Total 1110 ml 960 ml Output Total 450 ml Balance 660 ml 960 ml Intake Free Water 450 ml 300 ml Tube Feeding 660 ml 660 ml Output Urine Total 450 ml Objective General Appearance: cachectic Lines, tubes and drains: peripheral HEENT: normocephalic, atraumatic Neck: non-tender, normal alignment Respiratory/Chest: chest wall non-tender, lungs clear Cardiovascular/Chest: normal peripheral pulses, normal rate Abdomen: normal bowel sounds Extremities: normal range of motion Laboratory Tests 02/26/19 05:30: White Blood Count 8.9, Red Blood Count 3.98L, Hemoglobin 12.4L, Hematocrit 37.4L , Mean Corpuscular Volume 94, Mean Corpuscular Hemoglobin 31.2H, Mean Corpuscular Hemoglobin Concent 33.2, Red Cell Distribution Width 13.3, Platelet Count 260, Mean Platelet Volume 5.5L, Neutrophils (%) (Auto) 48.0, Lymphocytes ( %) (Auto) 42.4, Monocytes (%) (Auto) 7.5, Eosinophils (%) (Auto) 1.6, Basophils (%) (Auto) 0.5, Sodium Level 136, Potassium Level 5.2H, Chloride Level 102, Carbon Dioxide Level 29, Anion Gap 5, Blood Urea Nitrogen 37H, Creatinine 1.5H, Estimat Glomerular Filtration Rate 56.2, Glucose Level 90, Calcium Level 9.0 Current Medications Medications (Trade) Dose Ordered Sig/Lucie Route PRN Reason Start Time Stop Time Status Last Admin Dose Admin Acetaminophen (Tylenol) 650 mg Q4H PRN ORAL Mild Pain/Temp > 100.5 02/12/19 08:15 03/14/19 08:14 02/14/19 00:45 Clonidine HCl (Catapres Tab) 0.1 mg Q4H PRN ORAL For High Blood Pressure 02/12/19 08:15 03/14/19 08:14 Dextrose (Dextrose 50%) 25 ml Q30M PRN IV Hypoglycemia 02/12/19 08:15 03/14/19 08:14 Dextrose (Dextrose 50%) 50 ml Q30M PRN IV Hypoglycemia 02/12/19 08:15 03/14/19 08:14 Docusate Sodium (Colace) 100 mg TWICE A DAY GT 02/19/19 10:00 03/14/19 08:59 02/26/19 08:11 Haloperidol (Haldol) 5 mg Q6H PRN ORAL Agitation 02/12/19 08:30 03/14/19 08:29 02/26/19 08:10 Heparin Sodium (Porcine) (Heparin 5000 units/ml) 5,000 units EVERY 12 HOURS SUBQ 02/12/19 09:00 03/14/19 08:59 02/26/19 08:13 Midodrine (Pro-Amatine) 2.5 mg THREE TIMES A DAY GT 02/20/19 13:00 03/22/19 12:59 02/26/19 12:32 Olanzapine (ZyPREXA) 2.5 mg TID PRN ORAL agitation 02/23/19 12:00 03/14/19 13:59 Ondansetron HCl (Zofran) 4 mg Q6H PRN IVP Nausea & Vomiting 02/12/19 08:15 03/14/19 08:14 Polyethylene Glycol (Miralax) 17 gm HSPRN PRN ORAL Constipation 02/12/19 08:15 03/14/19 08:14 Tamsulosin HCl (Flomax) 0.4 mg BID ORAL 02/12/19 18:00 03/14/19 17:59 02/26/19 08:10 Valproic Acid (Depakene) 500 mg Q12HR GT 02/19/19 21:00 03/21/19 20:59 02/26/19 08:10 German Mooney MD February 26, 2019 13:18
--- NOTE | 2019-02-26 14:48 | General Progress Note ---
Assessment/Plan Problem List: (1) UTI (urinary tract infection) ICD Codes: N39.0 - Urinary tract infection, site not specified SNOMED: 48321383 (2) CKD (chronic kidney disease) ICD Codes: N18.9 - CKD (chronic kidney disease) SNOMED: 572204296 (3) ARF (acute renal failure) ICD Codes: N17.9 - ARF (acute renal failure) SNOMED: 06021935 (4) Failure to thrive syndrome, adult ICD Codes: R62.7 - Failure to thrive syndrome, adult SNOMED: 028993741 (5) Hepatitis C ICD Codes: B19.20 - Unspecified viral hepatitis C without hepatic coma SNOMED: 29704613 (6) HTN (hypertension) ICD Codes: I10 - Essential (primary) hypertension SNOMED: 07406286 Status: stable, progressing Assessment/Plan: pt diet abx gi eval dc plan snf Subjective Constitutional: Reports: weakness Allergies: Uncoded Allergies: anesthetics unspecified (Allergy, Mild, 02/12/19) sulfonamides (Allergy, Mild, rash, 02/12/19) All Systems: reviewed and negative except above Subjective sleepy calm Objective Last 24 Hour Vital Signs Date Time Temp Pulse Resp B/P (MAP) Pulse Ox O2 Delivery O2 Flow Rate FiO2 02/26/19 12:00 98.6 80 18 122/76 (91) 98 02/26/19 10:49 95 Room Air 21 02/26/19 10:49 Room Air 21 02/26/19 09:00 Room Air 02/26/19 08:00 98.8 83 20 123/73 (90) 95 02/26/19 04:00 98.2 84 17 102/68 (79) 94 02/26/19 00:00 97.5 77 18 110/72 (85) 94 02/25/19 21:00 Room Air 02/25/19 20:00 97.6 76 17 109/71 (84) 94 02/25/19 19:31 Room Air 21 02/25/19 19:31 94 Room Air 21 02/25/19 16:00 98.0 65 17 104/69 (81) 94 Intake and Output 02/25/19 02/26/19 18:59 06:59 Intake Total 1110 ml 960 ml Output Total 450 ml Balance 660 ml 960 ml Intake Free Water 450 ml 300 ml Tube Feeding 660 ml 660 ml Output Urine Total 450 ml Laboratory Tests 02/26/19 05:30: White Blood Count 8.9, Red Blood Count 3.98L, Hemoglobin 12.4L, Hematocrit 37.4L , Mean Corpuscular Volume 94, Mean Corpuscular Hemoglobin 31.2H, Mean Corpuscular Hemoglobin Concent 33.2, Red Cell Distribution Width 13.3, Platelet Count 260, Mean Platelet Volume 5.5L, Neutrophils (%) (Auto) 48.0, Lymphocytes ( %) (Auto) 42.4, Monocytes (%) (Auto) 7.5, Eosinophils (%) (Auto) 1.6, Basophils (%) (Auto) 0.5, Sodium Level 136, Potassium Level 5.2H, Chloride Level 102, Carbon Dioxide Level 29, Anion Gap 5, Blood Urea Nitrogen 37H, Creatinine 1.5H, Estimat Glomerular Filtration Rate 56.2, Glucose Level 90, Calcium Level 9.0 Height (Feet): 5 Height (Inches): 6.00 Weight (Pounds): 109 General Appearance: lethargic EENT: normal ENT inspection Neck: normal alignment Cardiovascular: normal peripheral pulses, normal rate, regular rhythm Respiratory/Chest: chest wall non-tender, lungs clear, normal breath sounds Abdomen: normal bowel sounds, non tender, soft Extremities: normal inspection Edema: no edema noted Arm (L), no edema noted Arm (R), no edema noted Leg (L), no edema noted Leg (R), no edema noted Pedal (L), no edema noted Pedal (R), no edema noted Generalized Neurologic: motor weakness Skin: normal pigmentation, warm/dry Jaleel Moon DO February 26, 2019 14:47
--- NOTE | 2019-02-26 14:49 | NUR ---
RD ASSESSMENT & RECOMMENDATIONS SEE CARE ACTIVITY FOR COMPLETE ASSESSMENT DAILY ESTIMATED NEEDS: Needs based on ARF, UNDERWEIGHT/ 49kg 30-35 kcals/kg 0607-0283 total kcals 1-1.5 g protein/kg 49-74 g total protein 25-30 mL/kg 1631-5343 total fluid mLs NUTRITION DIAGNOSIS: * Increased kcal/prot needs R/T recent wt loss, underweight status as evidenced by possible significant wt loss of ~30lbs/ 21% in 8 months. pt @ 77% IBW w/ underweight BMI per guidelines, pt is now S/P PEG . * Altered nutrition related lab values R/T ARF, volume deficit as evidenced by elev BUN (92-> 45-> 28-> 37 back up), elev creat (3.1-> 2.0-> wnl ->1.5 back up), elev Na (155-> wnl). CURRENT TF:Glucerna 1.2 @55ml/hr x24 hrs + water flush 150ml q 6 hrs ENTERAL NUTRITION RECOMMENDATIONS: Glucerna 1.2 @55ml/hr x24 hrs to provide 1320ml, 1584 kcal, 79g pro, 1063ml [id number] - Maintain current TF order - INCREASE WATER FLUSHES: 150ml q 4 hrs (additional 300ml free water) - HOB over 30 degrees. ADDITIONAL RECOMMENDATIONS: 1) Lytes daily w/ TF (K elev 5.2, monitor closely, need for TF change) 2) WOUND CARE: add Efrain 1ptk BID 3) S/p PEG Placement, please RE-calibrate bed scale to monitor efficacy of TF rate. + WEEKLY WEIGHTS 4) Hypoglycemics prn, niss for BG control w/ TF (A1C=6.0) 5) Increase water flushes- BUN, Creat trending up
[2019-02-26 16:00] VITALS: BP 117/69
--- NOTE | 2019-02-26 19:00 | NUR ---
NURSE NOTES: pt has D/C order, all discharge assessments and instructions done, Pt is stable, V/S stable, endorsed to RN in [facility]. wound picture done and uploaded to computer. called pt's X2 to inform her about discharging but she hasn't answer, charge nurse DALTON Adams and NOC SHIFT RN LORIN are aware. endorsed RN LORIN to F/U with pt's . will continue to monitor.
--- NOTE | 2019-02-26 19:25 | NUR ---
NURSE NOTES: Attempted to contact for discharge. Made 7 telephone calls to the two numbers listed but was unable to speak with . There was no message option. contact centre supervisor Tricia was advised.
--- NOTE | 2019-02-26 19:30 | NUR ---
HAND-OFF: Report given to RN LORIN. Endorsed to contact pt's about discharging.
--- NOTE | 2019-02-26 19:33 | NUR ---
NURSE NOTES: Pt is in bed, awake and verbal. Pt is confused. Pt has a discharge order to [facility]. Previous shift nurse KERMIT Figueroa has completed the discharge packet and gave report to [facility]. Pt is awaiting ambulance personnel to come to [facility]. Pt's Yamini has been called to inform 3 times, but no one answered the phone, there is no option to leave messages. Pt is at risk for fall, fall precaution in place. Bed locked low in position,side rails up and call light within reach. Bed alarm on. Pt will be monitored.
[2019-02-26 20:00] VITALS: BP 109/70
--- NOTE | 2019-02-26 20:20 | NUR ---
NURSE NOTES: Pt is discharged to [facility] in [place] in stable condition. Vitals sable. Pt is awake and verbal. Discharge packet and instructions sent with [facility] ambulance personnel. All belongings sent with patient. ID band and IV access removed. G-tube flushed and clamped. Unable to notify Yamini, numerous phone call made to contact , phone kept ringing, no option to leave voice mail. supervisor microwave Carin informed, Carin said gave the ok to discharge. Charge nurse Minnie is also aware of discharge. Case management had already arranged discharge on previous shift.
[2019-02-26] MEDS ORDERED: NS 500ML ONE (20:39)
[2019-02-26] MEDS ORDERED: NS 275ml ONE (20:39)
[2019-02-26] MEDS ORDERED: Sterile Water Irrig 1000ml IRRIG ONE (20:39)
--- NOTE | 2019-02-26 21:30 | NUR ---
NURSE NOTES: Pt's Yamini in the unit asking about the patient. Spouse was informed that pt had been to discharged via [facility] ambulance to [facility] in [place], address and phone number of the facility provided to Yamini. was told that phone calls were made to contact her regarding discharge numerous time. She said that her number changed and provided a new number [phone]. Nursing pipe and boiler covers supervisor Carin and charge nurse Minnie notified.
--- NOTE | 2019-02-26 21:45 | Progress Note ---
DATE: 02/26/2019 SUBJECTIVE: The patient is asleep, calm in restraints. The patient has no behavior issues, continues to have episodes of agitation. MENTAL STATUS EXAMINATION: The patient is alert, confused, disoriented. Mood is neutral to agitated. Affect is constricted. Congruent with mood. Thought process, there is paucity of thought content. Thought content, no suicidal, homicidal ideation. Memory is impaired. Insight and judgment, non-existent. ASSESSMENT: 1. Dementia with behavior disturbance. 2. Encephalopathy. PLAN: 1. We will continue valproic acid 500 mg b.i.d. 2. Olanzapine 2.5 mg t.i.d. p.r.n. 3. We will continue to follow and readjust the medications. Mckenna Bermudez M.D. DR: Dahlia JOB#: [id number] CC:
--- NOTE | 2019-03-01 14:28 | Discharge Summary ---
Discharge Summary Discharge Summary _ DATE OF ADMISSION: 02/11/2019 DATE OF DISCHARGE: 02/26/2019 DISCHARGED BY: REASON FOR ADMISSION: 68 years old male with past medical history of prostate cancer, chronic kidney disease stage IV, dementia, hepatitis C, hypertension, chronic pain major depression chronic opioid dependency on maintenance methadone therapy presented with altered level of consciousness from the correction [facility] for evaluation. Upon evaluation vital signs were stable laboratory work-up revealed no leukocytosis stable hemoglobin hematocrit BUN 99 creatinine 3.4. Sodium 154. AST 43 ALT stable troponin negative proBNP 57 albumin 3.2 urinalysis revealed evidence of UTI. Uric acid elevated 10.6 EKG revealed sinus tachycardia no acute ischemic changes chest x-ray revealed no acute cardiopulmonary pathology. CT of the head demonstrated no acute intracranial pathology. Mild atrophy of the brain noted along with nonspecific white matter hypoattenuation probably due to chronic small vessel disease. Patient subsequently was admitted for further management CONSULTANTS: washer blanket Dr. Gore neurologist Dr. Abarca pulmonary Dr. Mooney GI specialist Dr. Samuel psychiatrist [facility]RSE: Patient admitted to medical surgical floor. Patient started on IV fluids and empiric antibiotic. ID specialist followed. Blood cultures were negative. Urine culture revealed Proteus and E. coli ESBL. Antibiotic regimen was optimized based on sensitivity. Patient completed treatment for UTI. No leukocytosis, no fevers. Renal parameters and electrolytes were closely monitored. Electrolytes corrected as needed, and nephrotoxins were avoided. Creatinine trending down. Prior to discharge BUN from 99 down to 37, and creatinine from 3.4 down to 1.5. Acute tubular necrosis was likely precipitated by infectious process and dehydration. Hypernatremia was also likely due to dehydration and resolved, prior to discharge sodium 136. Per nuclear physicist, patient had chronic kidney disease with superimposed acute renal failure due to dehydration. DVT prophylaxis provided. Supplemental oxygen provided as needed to keep pulse oximetry above 92%. Pulmonary toilet provided as needed. Neurologist followed. Patient subsequently undergone MRI of the brain, which revealed chronic and age-related changes, but was negative for acute intracranial bleeding, mass-effect or infarct. Patient subsequently undergone EEG, which was consistent with encephalopathy of moderate to severe degree. Neurologist recommended avoid use of benzodiazepines, anticholinergic and opioid narcotics. Neurologist recommended that stimulation of patient with physical therapy may be helpful. Consider any re-performing EEG if no improvement in mentation. Bank Officer followed. Echocardiogram revealed grossly normal left ventricular ejection fraction to the extent visualized with mild left ventricular hypertrophy. No mitral regurgitation. Patient exhibited hypotension. Patient was started on midodrine. Blood pressure stabilized. GI followed . Patient subsequently undergone PEG placement on ; minimal gastritis noted. Patient had successful PEG placement. Abdominal binder applied. Head of bed was elevated at all times. G-tube site care provided . Tube feeding started ( specific formula and goal rate) started as per registered dietitian recommendation with strict aspiration precautions. Patient was able to tolerate tube feeding. Symptomatic care provided. Hemoglobin hematocrit were closely monitored with gial to keep hemoglobin above 7. GI prophylaxis provided. Reglan was on board as needed for GI motility. Bowel regimen instituted. Pain management was addressed as needed. Psychiatrist followed. Psychiatric medication regimen provided as per psychiatrist. Patient closely monitored, and medication were readjusted as needed. Patient clinically stabilized: blood pressure stable, hypernatremia and acute renal failure resolved, s/p treatment for UTI. Patient clinically stabilized and was ready for transfer to the correction facility for continuation of care. FINAL DIAGNOSES: Acute encephalopathy Sepsis UTI/pyelonephritis with Proteus and E. coli ESBL, s/p treatment Acute tubular necrosis on chronic kidney disease Prostate cancer Cerebrovascular disease Methadone maintenance therapy Hypotension-resolved Hepatitis C Dementia Failure to thrive syndrome in adult Status post PEG placement Acute hypoactive delirium due to multiply etiology Vascular dementia Dementia with behavioral disturbances Hepatitis C DISCHARGE MEDICATIONS: See Medication Reconciliation list. DISCHARGE INSTRUCTIONS: Patient was discharged to the correction facility. Follow up with medical doctor at the facility. Baylee Montero NP March 01, 2019 14:28
== END 2019-02-26 20:40 | DRG 720 ==
LOC: EDBD 21:27 → EMR 21:50 → 4E 23:30 → EDBEDREQ 23:36 → 4E 02-12 10:34
DX: A41.9 Sepsis, unspecified organism (principal); E43 Unspecified severe protein-calorie malnutrition; G93.49 Other encephalopathy; N17.9 Acute kidney failure, unspecified; E87.0 Hyperosmolality and hypernatremia; I95.9 Hypotension, unspecified; G30.9 Alzheimer's disease, unspecified; F02.81 Dementia in other diseases classified elsewhere, unspecified severity, with behavioral disturbance; I69.391 Dysphagia following cerebral infarction; K56.7 Ileus, unspecified; R13.10 Dysphagia, unspecified; F11.20 Opioid dependence, uncomplicated; E86.0 Dehydration; N10 Acute pyelonephritis; N39.0 Urinary tract infection, site not specified; R62.7 Adult failure to thrive; Z68.1 Body mass index [BMI] 19.9 or less, adult; J44.9 Chronic obstructive pulmonary disease, unspecified; B19.20 Unspecified viral hepatitis C without hepatic coma; Z85.46 Personal history of malignant neoplasm of prostate; F05 Delirium due to known physiological condition; I73.9 Peripheral vascular disease, unspecified; N40.0 Benign prostatic hyperplasia without lower urinary tract symptoms; B96.20 Unspecified Escherichia coli [E. coli] as the cause of diseases classified elsewhere; B96.4 Proteus (mirabilis) (morganii) as the cause of diseases classified elsewhere; I67.9 Cerebrovascular disease, unspecified; K44.9 Diaphragmatic hernia without obstruction or gangrene; K29.70 Gastritis, unspecified, without bleeding
CPT/HCPCS: 36415; 51701; 70450; 70551; 71045; 80048; 80053; 80061; 80076; 80164; 81001; 81003; 82436; 82533; 82550; 82607; 82746; 82962; 82977; 83036; 83735; 83880; 83930; 83935; 84100; 84133; 84153; 84154; 84300; 84439; 84443; 84481; 84484; 84550; 85025; 85610; 85730; 86140; 87040; 87081; 87086; 87181; 89050; 93005; 93306; 94003; 94150; 94664; 94760; 95819; 96361; 96372; 96374; 99285; J2250

== ENCOUNTER 2019-03-03 10:49 | Emergency (ER) | payer MEDICARE, OTHER ==
[~2019-03-03] VITALS: Ht 172.7 cm; Wt 72.6 kg
[2019-03-03 11:04] VITALS: BP 106/49
--- NOTE | 2019-03-03 11:07 | NUR ---
ED Nurse Note:pt. was BIBA from SNF s/p fall and head trauma with 1.5cm laceration on upper forehead, also small sacral discoloration noted, pt. is A/Ox2 nonambulatory, VSS no bleeding on arrival, seen by ER MD, placed on cardiac surgeon
--- NOTE | 2019-03-03 11:08 | Emergency Room Report ---
History of Present Illness General Chief Complaint: Laceration Source: Patient, Medical Record Present Illness HPI 68-year-old male with a histo of dementia sent from [facility] found on the ground next to his bed with a contusion on forehead. likely had a fall but was unwitnessed. Patient is an extremely poor historian. Allergies: Uncoded Allergies: anesthetics unspecified (Allergy, Mild, 02/12/19) sulfonamides (Allergy, Mild, rash, 02/12/19) Patient History Past Medical History: see triage record, dementia Reviewed Nursing Documentation: PMH: Agreed; PSxH: Agreed Nursing Documentation-PM Past Medical History: No History, Except For Hx Cardiac Problems: Yes - HepC Hx Hypertension: Yes Hx COPD: Yes Hx Cancer: Yes - prostate CA, prostatectomy in 2001 Hx Gastrointestinal Problems: No Hx Neurological Problems: Yes - DEMENTIA Hx Cerebrovascular Accident: No Hx Dementia: Yes Hx Alzheimer's Disease: Yes Hx Memory Loss: Yes Hx Weakness: Yes Hx Fatigue: Yes Review of Systems All Other Systems: limited - Secondary dementia Physical Exam Vital Signs Date Time Temp Pulse Resp B/P (MAP) Pulse Ox O2 Delivery O2 Flow Rate FiO2 03/03/19 10:58 96.8 92 16 93 Room Air Sp02 EP Interpretation: reviewed, normal General Appearance: no apparent distress, alert, non-toxic Head: normocephalic, other - Abrasion and contusion superior portion of midforehead Eyes: bilateral eye normal inspection, bilateral eye PERRL, bilateral eye EOMI ENT: normal ENT inspection, hearing grossly normal, normal pharynx, no angioedema, normal voice, moist mucus membranes Neck: normal inspection, full range of motion, supple, supple/symm/no masses Respiratory: chest non-tender, lungs clear, normal breath sounds, chest symmetrical, palpation of chest normal Cardiovascular #1: normal peripheral pulses, regular rate, rhythm Cardiovascular #2: 2+ radial (R), 2+ radial (L) Gastrointestinal: normal inspection, non tender, soft, no mass, no guarding, no rebound Rectal: deferred Genitourinary: normal inspection, no CVA tenderness Musculoskeletal: back normal, gait/station normal, normal range of motion, non- tender, no calf tenderness Neurologic: alert, responsive, wood science professor III-XII nml as tested, motor strength/tone normal, sensory intact, speech normal, oriented - X1 Psychiatric: mood/affect normal Skin: normal color, no rash, warm/dry, normal turgor Lymphatic: no adenopathy Medical Decision Making Diagnostic Impression: Primary Impression: Contusion ER Course patient with dementia, no obvious injuries other than forehead, contusion and will be discharged. pacs system is down, therefore Dr. Avalos head and C-spine ct show no acute dz CT/MRI/US Diagnostic Results CT/MRI/US Diagnostic Results : Imaging Test Ordered: ct head/cspine Last Vital Signs Date Time Temp Pulse Resp B/P (MAP) Pulse Ox O2 Delivery O2 Flow Rate FiO2 03/03/19 10:58 96.8 92 16 93 Room Air Disposition: HOME, SELF-CARE Condition: Stable RUIZ ROMAN M.D March 03, 2019 11:08
[2019-03-03] MEDS ORDERED: LORazepam 1mg tab ORAL ONE (11:15)
[2019-03-03] MEDS ORDERED: HYDROcodone/Acetamin 5/325 tab ORAL ONE (11:15)
[2019-03-03] MEDS ORDERED: Tetanus/Diptheria/Pertussis IM ONE (11:15)
[2019-03-03 13:45] VITALS: BP 114/75
--- NOTE | 2019-03-03 13:54 | Diagnostic Imaging Report ---
Indication: Headache and head trauma Technique: Contiguous 5 mm thick transaxial imaging of the head obtained in a Siemens Sensation [address] scanner. Soft tissue and bone windows generated. Automatic Exposure Control was utilized. Total Dose length Product (DLP): 1541.[address] Dose Index Volume (CTDIvol): 70.38 mGy Comparison: 02/11/2019 Findings: There is moderate prominence of the ventricles, basal cisterns, and cerebral sulci consistent with atrophy. Moderate, nonspecific, white matter hypoattenuation is noted throughout the brain consistent with chronic small vessel disease. There is no midline shift, edema, acute hemorrhage, mass effect, or abnormal extra-axial fluid collections. There is no calvarial fracture identified. There is soft tissue swelling over the frontal scalp presumably contusion injury. Impression: No acute intracranial bleed, mass effect or edema. Moderate atrophy of the brain. Evidence of chronic small vessel disease involving white matter tracts. Frontal scalp contusion The CT scanner at [facility] is accredited by the [employer] and the scans are performed using dose optimization techniques as appropriate to a performed exam including Automatic Exposure control.
--- NOTE | 2019-03-03 13:54 | Diagnostic Imaging Report ---
Indication: Neck pain. Technique: Continuous helical imaging of the cervical spine was obtained transaxially from the skull base to the upper thoracic spine. 2-D coronal and sagittal reformatted images were obtained. Automatic Exposure Control was utilized. Total Dose length Product (DLP): 292.[address] Dose Index Volume (CTDIvol): 14.47 mGy Comparison: None Findings: There is no acute fracture or malalignment identified. There is no soft tissue swelling identified. Moderate uncovertebral arthritis is demonstrated at multiple levels. Some of the intervertebral discs show narrowing and osteophytes. Prominent bulla noted in the left apical lung and paraseptal blebs in the right lung noted. . 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 The CT scanner at [facility] is accredited by the [employer] and the scans are performed using dose optimization techniques as appropriate to a performed exam including Automatic Exposure control.
--- NOTE | 2019-03-03 14:31 | NUR ---
ED Nurse Note: TELEPHONE REORT GIVEN TO NORIS GROVER
[2019-03-03 14:49] VITALS: BP 105/61
[2019-03-03 14:50] VITALS: BP 105/61
--- NOTE | 2019-03-03 14:52 | NUR ---
ED Nurse Note:pt. was picked up by EMS for transfer back to his SNF condition stable report given
== END 2019-03-03 15:42 | disposition home or self-care (01) ==
LOC: EDBD 10:49 → EDUNIT# 10:49 → EMR 12:03
DX: S00.83XA Contusion of other part of head, initial encounter (principal); I10 Essential (primary) hypertension; J44.9 Chronic obstructive pulmonary disease, unspecified; Z85.46 Personal history of malignant neoplasm of prostate; Z90.79 Acquired absence of other genital organ(s); G30.9 Alzheimer's disease, unspecified; F02.80 Dementia in other diseases classified elsewhere, unspecified severity, without behavioral disturbance, psychotic disturbance, mood disturbance, and anxiety; Z88.4 Allergy status to anesthetic agent; Z88.2 Allergy status to sulfonamides; M47.9 Spondylosis, unspecified; G31.9 Degenerative disease of nervous system, unspecified; I73.9 Peripheral vascular disease, unspecified; X58.XXXA Exposure to other specified factors, initial encounter; Y92.122 Bedroom in nursing home as the place of occurrence of the external cause; Z86.19 Personal history of other infectious and parasitic diseases; Z23 Encounter for immunization
CPT/HCPCS: 70450; 72125; 90471; 90715; 99284